=== PATIENT | female | born 1970 | race Caucasian/White ===

== ENCOUNTER 2017-10-22 13:23 | Inpatient (IN) | payer OTHER ==
[~2017-10-22] VITALS: Ht 162.6 cm; Wt 70.5 kg
[~2017-10-22 13:23] MED LIST: ALBUAER19 INH; FLUO20CA37 PO; FLUO40CA8 PO; IPRA1AER2 INH; IPRASOL4 INH; PHEN-652 PO; PIPERACILL/TAZOBAC IV 3.375 GM in DEXTROSE 5% 100ML 100 ML IV SCH; TRAZ50TA35 PO
[2017-10-22 13:50] VITALS: Ht 162.6 cm; Wt 70.5 kg
--- NOTE | 2017-10-22 14:13 | EMERGENCY ROOM VISIT NOTE ---
History First contact with patient: 13:58 Chief Complaint: INFECTION Stated Complaint: LOWER BACK INCISION SPLIT OPEN/POSSIBLE INFECTIN Nursing Triage Summary: Patient c/o stiches being split open. Recent back surgery, MondayOct 11. Spinal Fusion Red, swollen, seeping since yesterday per patient. History of Present Illness The patient is a 47 year old female who presents to the Emergency Room with complaints of increased pain, swelling and drainage from her incision on her back for the last 3 days. Patient had a lumbar fusion performed a week and a half ago. Postoperatively, she had done fairly well. She just noticed the swelling and drainage a few days ago. She denies any fever or chills. No body aches, headache or nausea. She has been taking hydrocodone with moderate pain relief. The patient has a follow-up appointment to get her sutures removed in 3 days. She did not want to let this go in case it was an infection. Review of Systems 10 system review performed and negative unless noted in HPI or below Past Medical/Surgical History Medical Problems: (1) Asthma (2) Fibromyalgia Anxiety, depression Family History Patient reports no known family medical history. Social History Smoking Status: Current Every Day Smoker Marital Status: single Housing Status: lives alone Occupation Status: employed Current/Historical Medications Scheduled Bupropion Hcl (Bupropion Hcl Xl), 1 TAB PO QAM Docusate Sodium (Colace), 1 CAP PO BID Fluoxetine Hcl (Prozac), 20 MG PO DAILY Fluticasone Prop/Salmeterol (Advair Diskus 100-50 Mcg/Dose), 1 INHA INH BID Loratadine (Claritin), 1 CAP PO DAILY Pregabalin (Lyrica), 50 MG PO BID Trazodone Hcl (Trazodone), 50 MG PO HS Scheduled PRN Albuterol Hfa (Ventolin Hfa), 2-4 PUFFS INH Q6H PRN for SOB/Wheezing Hydrocodone/Acetaminophen 5MG/325MG (Pauline 5MG/325MG), 1 TABLET PO Q8 PRN for Pain Ipratropium-Albuterol (Combivent Respimat), 1 PUFF INH QID PRN for SOB/Wheezing Ipratropium-Albuterol (Duoneb), 1 TREATMENT INH UD PRN for SOB/Wheezing Lorazepam (Ativan), 0.5 MG PO BID PRN for Anxiety Miscellaneous Medications Fluoxetine Hcl (Prozac), 40 MG PO Physical Exam Vital Signs Date Time Temp Pulse Resp B/P (MAP) Pulse Ox O2 Delivery O2 Flow Rate FiO2 10/22/17 18:00 95 18 128/82 98 Room Air 10/22/17 17:23 88 18 127/84 96 Room Air 10/22/17 15:41 86 18 119/80 97 Room Air 10/22/17 13:50 36.9 105 18 123/77 97 Room Air Physical Exam VITALS: Vitals are noted on the nurse's note and reviewed by myself. Vital signs stable. GENERAL: 47-year-old female, in no acute distress, nondiaphoretic, well- developed well-nourished. SKIN: The skin was without rashes, erythema, edema, or bruising. HEAD: Normocephalic atraumatic. NECK: Supple without nuchal rigidity. . Cervical spine is nontender. . HEART: Regular rate and rhythm without murmurs gallops or rubs. LUNGS: Clear to auscultation bilaterally without wheezes, rales or rhonchi. No accessory muscle use. ABDOMEN: Positive bowel sounds x 4.Soft, nontender, without organomegaly. No guarding or rebound tenderness. MUSCULOSKELETAL: Mild edema and erythema surrounding the incision site and the lumbar spine area. Sutures are intact. Mild clear drainage noted from the area. Strength 5/5 throughout. NEURO: Patient was alert and oriented to person place and time. Normal sensation to touch. No focal neurological deficits. Medical Decision & Procedures ER Provider Diagnostic Interpretation: CT lumbar spine with IV contrast IMPRESSION: 1. 9 x 4 x 3.5 cm slightly hyperdense collection extending from L4 through S1 involving the subcutaneous fat exclusively.. 2. This may represent a postprocedural hematoma versus infection 3. Operative changes consistent with an L4-L5 laminectomy and fusion. No evidence for bony or posterior arch involvement. The above report was generated using voice recognition software. It may contain grammatical, syntax or spelling errors. Electronically signed by: Jason Harris M.D. 10/22/2017 3:49 PM Dictated Date/Time: 10/22/2017 3:35 PM The status of this report is Signed. Draft = Not yet reviewed or approved by Radiologist. Signed = Reviewed and approved by Radiologist. Laboratory Results 10/22/17 14:20 Red Blood Count 3.23, Mean Corpuscular Volume 94.1, Mean Corpuscular Hemoglobin 33.7, Mean Corpuscular Hemoglobin Concent 35.9, Mean Platelet Volume 9.3, Neutrophils (%) (Auto) 66.7, Lymphocytes (%) (Auto) 20.0, Monocytes (%) (Auto) 11.1, Eosinophils (%) (Auto) 1.5, Basophils (%) (Auto) 0.4, Neutrophils # (Auto ) 6.45, Lymphocytes # (Auto) 1.94, Monocytes # (Auto) 1.08, Eosinophils # (Auto ) 0.15, Basophils # (Auto) 0.04 10/22/17 14:20 Test 10/22/17 14:20 White Blood Count 9.69 K/uL (4.8-10.8) Red Blood Count 3.23 M/uL (4.2-5.4) Hemoglobin 10.9 g/dL (12.0-16.0) Hematocrit 30.4 % (37-47) Mean Corpuscular Volume 94.1 fL (80-100) Mean Corpuscular Hemoglobin 33.7 pg (25-34) Mean Corpuscular Hemoglobin Concent 35.9 g/dl (32-36) Platelet Count 374 K/uL (130-400) Mean Platelet Volume 9.3 fL (7.4-10.4) Neutrophils (%) (Auto) 66.7 % Lymphocytes (%) (Auto) 20.0 % Monocytes (%) (Auto) 11.1 % Eosinophils (%) (Auto) 1.5 % Basophils (%) (Auto) 0.4 % Neutrophils # (Auto) 6.45 K/uL (1.4-6.5) Lymphocytes # (Auto) 1.94 K/uL (1.2-3.4) Monocytes # (Auto) 1.08 K/uL (0.11-0.59) Eosinophils # (Auto) 0.15 K/uL (0-0.5) Basophils # (Auto) 0.04 K/uL (0-0.2) RDW Standard Deviation 47.2 fL (36.4-46.3) RDW Coefficient of Variation 13.8 % (11.5-14.5) Immature Granulocyte % (Auto) 0.3 % Immature Granulocyte # (Auto) 0.03 K/uL (0.00-0.02) Erythrocyte Sedimentation Rate 42 mm/hr (0-21) Anion Gap 12.0 mmol/L (3-11) Est Creatinine Clear Calc Drug Dose 145.3 ml/min Estimated GFR () 119.3 Estimated GFR (Non- 102.9 BUN/Creatinine Ratio 7.3 (10-20) Calcium Level 9.0 mg/dl (8.5-10.1) Total Bilirubin 0.3 mg/dl (0.2-1) Aspartate Amino Transf (AST/SGOT) 26 U/L (15-37) Alanine Aminotransferase (ALT/SGPT) 29 U/L (12-78) Alkaline Phosphatase 50 U/L (45-117) C-Reactive Protein 2.01 mg/dl (0-0.29) Total Protein 7.9 gm/dl (6.4-8.2) Albumin 3.5 gm/dl (3.4-5.0) Globulin 4.4 gm/dl (2.5-4.0) Albumin/Globulin Ratio 0.8 (0.9-2) Procalcitonin 8.27 ng/ml (0-0.5) Medications Administered Medications (Trade) Dose Ordered Sig/Kimmie Route Start Time Stop Time Status Last Admin Dose Admin Morphine Sulfate (MoRPHine SULFATE INJ) 4 mg Q1H PRN IV 10/22/17 14:15 10/22/17 20:51 DC 10/22/17 19:07 4 MG Vancomycin HCl 1000 mg/Sodium Chloride 270 ml @ 125 mls/hr NOW STAT IV 10/22/17 16:12 10/22/17 18:21 DC 10/22/17 17:19 125 MLS/HR Piperacillin Sod/ Tazobactam Sod (Zosyn Iv) 3.375 gm NOW STAT IV 10/22/17 16:12 10/22/17 16:13 DC 10/22/17 17:18 3.375 GM ED Course Patient was seen and examined Vital signs including blood pressure were reviewed medications list was verified with patient Labs were obtained, and a saline lock was established The patient was medicated with morphine Imaging was performed and reviewed The case was discussed with my supervising physician. The patient was reassessed and resting comfortably. We discussed the results of her workup. She voiced understanding. The patient was given 1 dose of vancomycin and Zosyn IV in the emergency department. She also required an additional dose of morphine. I discussed the patient's case with her surgeons team in [place]. Constantin Jimenez PA-C I then discussed the case with the case management team. I subsequently spoke with [facility] service, who kindly agreed to admit the patient for further treatment Medical Decision Differential diagnosis: Postoperative infection, sepsis, postop pain, suture irritation This patient is a 47-year-old female that presents the emergency department with drainage, pain and swelling to her incision site in her back. On exam, she did have some edema and slight clear drainage. Her workup reveals borderline white blood cell count. She did have elevated inflammatory markers. CT scan reveals a fluid collection 9 x 3 cm posterior to the spine. This is concerning for infection. Discuss the patient with the neurosurgical team at [place].. They recommended admission for IV antibiotics. The patient was comfortable with this plan. Medication Reconcilliation Current Medication List: was personally reviewed by pr Blood Pressure Screening Patient's blood pressure: Normal blood pressure Impression Primary Impression: Postoperative infection Departure Information Prescriptions Docusate Sodium (COLACE) 100 Mg Cap 1 CAP PO BID for 15 Days, #30 CAP Prov: Jyotsna Harris, 10/22/17 Referrals Vern Lo M.D. (PCP) Patient Instructions [facility]
[2017-10-22] MEDS ORDERED: OPTIRAY 320 IV PRN (14:30)
[2017-10-22] MEDS: MoRPHine SULFATE 4 MG/ML 1 ML CARP\\VIAL IV PRN ×4 (14:41→19:07)
[2017-10-22 14:43] LABS: BASO % 0.4 %; BASO ABS # 0.04 K/uL (0-0.2); EOS % 1.5 %; EOS ABS # 0.15 K/uL (0-0.5); HEMATOCRIT 30.4 % (37-47); HEMOGLOBIN 10.9 g/dL (12.0-16.0); IG# 0.03 K/uL (0.00-0.02); LYMPH ABS # 1.94 K/uL (1.2-3.4); MEAN CELL VOLUME 94.1 fL (80-100); MEAN CORPUSCULAR HEMOGLOBIN 33.7 pg (25-34); MEAN CORPUSCULAR HGB CONC 35.9 g/dl (32-36); MEAN PLATELET VOLUME 9.3 fL (7.4-10.4); MONO % 11.1 %; MONO ABS # 1.08 K/uL (0.11-0.59); NEUT % 66.7 %; NEUT ABS # 6.45 K/uL (1.4-6.5); PLATELET COUNT 374 K/uL (130-400); RED CELL DISTRIBUTION WIDTH CV 13.8 % (11.5-14.5); RED CELL DISTRIBUTION WIDTH SD 47.2 fL (36.4-46.3); WHITE BLOOD COUNT 9.69 K/uL (4.8-10.8)
[2017-10-22 14:58] LABS: ALBUMIN 3.5 gm/dl (3.4-5.0); CREATININE 0.69 mg/dl (0.60-1.20); POTASSIUM 3.7 mmol/L (3.5-5.1)
[2017-10-22 15:00] LABS: TOTAL PROTEIN 7.9 gm/dl (6.4-8.2)
--- NOTE | 2017-10-22 15:50 | DIAGNOSTIC IMAGING REPORT ---
LUMBAR SPINE WITH CLINICAL HISTORY: spinal fusion 10/11 ? post op infection postoperative pain. Fever. TECHNIQUE: Transaxial acquisition with multi axial reformatted images COMPARISON STUDY: None FINDINGS: Findings consistent with a fusion at the L4-L5 level. Slight grade 1 anterolisthesis of L4 on L5. Disc spacer is present. Alignment appears anatomic. Multiple radiopaque pellets are present consistent with what appears to be bone grafting type material. There is no evidence for a bony destructive process. There does not appear to be soft tissue which would be considered abnormal involving the spinal canal. Within the subcutaneous fat posterior to the spine from L4 through the superior aspect of S1 It is a hyperdense collection measuring 9 x 4 x 3.5 cm. This is relatively well-circumscribed. Density characteristics indicate this potentially is blood or hematoma/infection. There are no air components. IMPRESSION: 1. 9 x 4 x 3.5 cm slightly hyperdense collection extending from L4 through S1 involving the subcutaneous fat exclusively.. 2. This may represent a postprocedural hematoma versus infection 3. Operative changes consistent with an L4-L5 laminectomy and fusion. No evidence for bony or posterior arch involvement. The above report was generated using voice recognition software. It may contain grammatical, syntax or spelling errors. Electronically signed by: Jason Harris M.D. 10/22/2017 3:49 PM Dictated Date/Time: 10/22/2017 3:35 PM
[2017-10-22] MEDS ORDERED: PREG1CAP36 PO (15:54)
[2017-10-22] MEDS ORDERED: BUPR75TA20 PO (15:54)
[2017-10-22] MEDS ORDERED: LORA-741 PO (15:54)
[2017-10-22] MEDS ORDERED: VNTHFA/IN INH (15:54)
[2017-10-22] MEDS ORDERED: VANCOMYCIN IV 1,000 MG in SODIUM CHLORIDE 0.9% 250ML 250 ML IV STA (16:12)
[2017-10-22] MEDS ORDERED: PIPERACILLIN/TAZOBACTAM 3.375 GM/100ML D5W IV STA (16:12)
[2017-10-22] MEDS ORDERED: VANCOMYCIN CONSULT ACTIVE PRN ×2 (16:15→18:45)
[2017-10-22] MEDS ORDERED: FLUOXETINE HCL 20 MG CAP PO SCH (18:30)
[2017-10-22] MEDS ORDERED: ACETAMINOPHEN 325 MG TAB PO PRN (18:45)
[2017-10-22] MEDS ORDERED: PIPERACILL/TAZOBAC CONSULT ACTIVE PRN (18:45)
[2017-10-22 19:20] VITALS: BP_SYST 130; BP_DIAS 83; BP_DIAS 86; PULSE 94; TEMP 37; O2SAT 94; BMI 56.3
[2017-10-22] MEDS ORDERED: VANCOMYCIN IV 1,750 MG in SODIUM CHLORIDE 0.9% 500ML 500 ML IV ONE (20:30)
[2017-10-22] MEDS ORDERED: BUPR300T43 PO (20:45)
[2017-10-22] MEDS ORDERED: LORA10CA2 PO (20:48)
[2017-10-22] MEDS ORDERED: ADVIN10050 INH (20:48)
[2017-10-22] MEDS ORDERED: DOCU-94 PO (20:49)
[2017-10-22] MEDS ORDERED: HYDR-5688 PO (20:49)
--- NOTE | 2017-10-22 20:59 | History and Physical ---
History & Physical Date & Time of Service: Oct 22, 2017 at 20:51 Chief Complaint: Postoperative Infection Primary Care Physician: Vern Lo M.D. History of Present Illness Source: patient, family, clinic records This is a 47 year old female with a PMH of mood disorder, fibromyalgia, asthma/ COPD, tobacco use disorder, recent lumbar surgery (decompression/fusion) - presents with pus draining from the surgical site. She presented to the ED because of continued pain and worsening pus drainage. Upon presentation, had lumbar CT performed, showing a collection of fluid around the L4-S1 area. Surgeon at [place] was called and recommendation made to admit patient and start IV antibiotics. Outpatient f/u with surgery recommended. Patient agreeable, she is doing fine, able to ambulate. Area surrounding the site is improving, warm/red/fluid filled area on the lower back. Past Medical/Surgical History Medical Problems: (1) Asthma Status: Chronic (2) Fibromyalgia Status: Chronic Family History Patient reports no known family medical history. Social History Smoking Status: Current Every Day Smoker Marital Status: single Occupational Status: employed Allergies Coded Allergies: Latex1 -Allergic Contact Dermititis (Unverified Adverse Reaction, Unknown , ITCHY, 10/22/17) Home Medications Scheduled Bupropion Hcl (Bupropion Hcl Xl), 1 TAB PO QAM Docusate Sodium (Colace), 1 CAP PO BID Fluoxetine Hcl (Prozac), 20 MG PO DAILY Fluticasone Prop/Salmeterol (Advair Diskus 100-50 Mcg/Dose), 1 INHA INH BID Loratadine (Claritin), 1 CAP PO DAILY Pregabalin (Lyrica), 50 MG PO BID Trazodone Hcl (Trazodone), 50 MG PO HS Scheduled PRN Albuterol Hfa (Ventolin Hfa), 2-4 PUFFS INH Q6H PRN for SOB/Wheezing Hydrocodone/Acetaminophen 5MG/325MG ([place] 5MG/325MG), 1 TABLET PO Q8 PRN for Pain Ipratropium-Albuterol (Combivent Respimat), 1 PUFF INH QID PRN for SOB/Wheezing Ipratropium-Albuterol (Duoneb), 1 TREATMENT INH UD PRN for SOB/Wheezing Lorazepam (Ativan), 0.5 MG PO BID PRN for Anxiety Miscellaneous Medications Fluoxetine Hcl (Prozac), 40 MG PO Review of Systems Constitutional: No fever, No chills, No weakness, No fatigue Eyes: No worsening of vision ENT: No hearing loss Respiratory: No cough, No sputum, No wheezing, No shortness of breath, No dyspnea on exertion, No dyspnea at rest, No hemoptysis Cardiovascular: No chest pain, No edema Musculoskeletal: + joint pain (low back pain) Genitourinary - Female: No dysuria, No urinary frequency, No urinary urgency, No urinary incontinence, No urinary retention, No hematuria Neurologic: No memory loss Psychiatric: No depression symptoms (controlled with medications), No anxiety, No insomnia Endocrine: No fatigue Hematologic / Lymphatic: No abnormal bleeding/bruising Integumentary: + problem reported (pus draining; lower back), No rash Allergic / Immunologic: No environmental allergies, No seasonal allergies Physical Exam Vital Signs Date Time Temp Pulse Resp B/P (MAP) Pulse Ox O2 Delivery O2 Flow Rate FiO2 10/22/17 19:20 94 Room Air 10/22/17 19:20 37.0 94 16 130/83 (99) 94 Room Air 10/22/17 19:20 37.0 94 18 130/86 94 Room Air 10/22/17 19:03 95 18 128/86 98 Room Air 10/22/17 18:00 95 18 128/82 98 Room Air 10/22/17 17:23 88 18 127/84 96 Room Air 10/22/17 15:41 86 18 119/80 97 Room Air 10/22/17 13:50 36.9 105 18 123/77 97 Room Air General Appearance: WD/WN, no apparent distress Head: normocephalic, atraumatic Eyes: normal inspection ENT: hearing grossly normal Neck: supple Respiratory/Chest: chest non-tender, lungs clear, normal breath sounds, no respiratory distress, no accessory muscle use Cardiovascular: regular rate, rhythm, no edema, no murmur Abdomen/GI: normal bowel sounds, non tender, soft Back: normal range of motion, + pertinent finding (surgical scar noted in the lower back, redness, erythema, edema, warmth to touch, no longer draining, mildly tender to palpation) Extremities/Musculoskelatal: normal inspection, no calf tenderness, normal capillary refill, no pedal edema Neurologic/Psych: optical glass silverer II-XII nml as tested, no motor/sensory deficits, alert, normal mood/affect, oriented x 3 Lymphatic: no adenopathy Diagnostics Laboratory Results Results Past 24 Hours Test 10/22/17 14:20 Range/Units White Blood Count 9.69 4.8-10.8 K/uL Red Blood Count 3.23 4.2-5.4 M/uL Hemoglobin 10.9 12.0-16.0 g/dL Hematocrit 30.4 37-47 % Mean Corpuscular Volume 94.1 80-100 fL Mean Corpuscular Hemoglobin 33.7 25-34 pg Mean Corpuscular Hemoglobin Concent 35.9 32-36 g/dl Platelet Count 374 130-400 K/uL Mean Platelet Volume 9.3 7.4-10.4 fL Neutrophils (%) (Auto) 66.7 % Lymphocytes (%) (Auto) 20.0 % Monocytes (%) (Auto) 11.1 % Eosinophils (%) (Auto) 1.5 % Basophils (%) (Auto) 0.4 % Neutrophils # (Auto) 6.45 1.4-6.5 K/uL Lymphocytes # (Auto) 1.94 1.2-3.4 K/uL Monocytes # (Auto) 1.08 0.11-0.59 K/uL Eosinophils # (Auto) 0.15 0-0.5 K/uL Basophils # (Auto) 0.04 0-0.2 K/uL RDW Standard Deviation 47.2 36.4-46.3 fL RDW Coefficient of Variation 13.8 11.5-14.5 % Immature Granulocyte % (Auto) 0.3 % Immature Granulocyte # (Auto) 0.03 0.00-0.02 K/uL Erythrocyte Sedimentation Rate 42 0-21 mm/hr Sodium Level 136 136-145 mmol/L Potassium Level 3.7 3.5-5.1 mmol/L Chloride Level 101 98-107 mmol/L Carbon Dioxide Level 23 21-32 mmol/L Anion Gap 12.0 3-11 mmol/L Blood Urea Nitrogen 5 7-18 mg/dl Creatinine 0.69 0.60-1.20 mg/dl Est Creatinine Clear Calc Drug Dose 145.3 ml/min Estimated GFR () 119.3 Estimated GFR (Non- 102.9 BUN/Creatinine Ratio 7.3 10-20 Random Glucose 77 70-99 mg/dl Calcium Level 9.0 8.5-10.1 mg/dl Total Bilirubin 0.3 0.2-1 mg/dl Aspartate Amino Transf (AST/SGOT) 26 15-37 U/L Alanine Aminotransferase (ALT/SGPT) 29 12-78 U/L Alkaline Phosphatase 50 45-117 U/L C-Reactive Protein 2.01 0-0.29 mg/dl Total Protein 7.9 6.4-8.2 gm/dl Albumin 3.5 3.4-5.0 gm/dl Globulin 4.4 2.5-4.0 gm/dl Albumin/Globulin Ratio 0.8 0.9-2 Procalcitonin 8.27 0-0.5 ng/ml Microbiology Results 10/22/17 Blood Culture, Received Pending 10/22/17 Blood Culture, Received Pending Diagnostic Radiology LUMBAR SPINE WITH CLINICAL HISTORY: spinal fusion 10/11 ? post op infection postoperative pain. Fever. TECHNIQUE: Transaxial acquisition with multi axial reformatted images COMPARISON STUDY: None FINDINGS: Findings consistent with a fusion at the L4-L5 level. Slight grade 1 anterolisthesis of L4 on L5. Disc spacer is present. Alignment appears anatomic. Multiple radiopaque pellets are present consistent with what appears to be bone grafting type material. There is no evidence for a bony destructive process. There does not appear to be soft tissue which would be considered abnormal involving the spinal canal. Within the subcutaneous fat posterior to the spine from L4 through the superior aspect of S1 It is a hyperdense collection measuring 9 x 4 x 3.5 cm. This is relatively well-circumscribed. Density characteristics indicate this potentially is blood or hematoma/infection. There are no air components. IMPRESSION: 1. 9 x 4 x 3.5 cm slightly hyperdense collection extending from L4 through S1 involving the subcutaneous fat exclusively.. 2. This may represent a postprocedural hematoma versus infection 3. Operative changes consistent with an L4-L5 laminectomy and fusion. No evidence for bony or posterior arch involvement. Impression Assessment and Plan This is a 47 year old female with a PMH of mood disorder, fibromyalgia, asthma/ COPD, tobacco use disorder, recent lumbar surgery (decompression/fusion) - presents with pus draining from the surgical site. Post-operative Infection fluid filled collection in the L4-S1 area Lumbar CT already performed surgeon aware of this and recommendation made to admit patient for IV abx. will use broad spectrum antibiotics, Vanco + Zosyn will consult ID for further input phone numbers for the surgeon at [facility] is in the chart if needed will try [place] PRN for pain, patient is not c/o too much pain COPD/Asthma continue home inhalers Mood Disorder continue home medications Fibromyalgia continue home medications DVT ppx SCDs, avoiding chemical prophylaxis on the off chance that this is a hematoma FULL CODE Advanced Directives Existing Living Will: No Existing Power of Survey And Mapping Technician: No VTE Prophylaxis VTE Risk Assessment Done? Y/N: Yes Risk Level: Low Given or contraindicated: Other Anticoagulation
[2017-10-22] MEDS ORDERED: PREGABALIN 75 MG CAP PO SCH ×2 (21:00)
[2017-10-22] MEDS ORDERED: VANCOMYCIN IV 1,000 MG in SODIUM CHLORIDE 0.9% 250ML 250 ML IV SCH (21:00)
[2017-10-22] MEDS ORDERED: HYDROCODONE/ACETAMIN 5/325MG TAB PO PRN (21:00)
[2017-10-22] MEDS: DOCUSATE SODIUM 100 MG CAP PO SCH (21:55)
[2017-10-22] MEDS: PREGABALIN 50 MG CAP PO SCH (21:55)
[2017-10-22] MEDS: TRAZODONE HCL 50 MG TAB PO SCH (21:56)
[2017-10-22] MEDS: FLUTICASONE/SALMETEROL 100/50 (ADVAIR) 14 PUFF/1 INHALER INH SCH (22:15)
[2017-10-22] MEDS ORDERED: ONDANSETRON INJ 2 MG/ML 2 ML VIAL IV PRN (22:30)
[2017-10-22] MEDS ORDERED: ONDANSETRON INJ 2 MG/ML 2 ML VIAL ONE (22:31)
[2017-10-22 22:50] VITALS: BP 136/82; PULSE 98; TEMP 36.9; O2SAT 94
[2017-10-22] MEDS ORDERED: MoRPHine SULFATE 4 MG/ML 1 ML CARP\\VIAL IV STA (23:25)
[2017-10-22] MEDS ORDERED: HYDROCODONE/ACETAMINOPHEN 7.5/325MG TAB PO PRN (23:30)
[2017-10-23] MEDS: PIPERACILL/TAZOBAC IV 3.375 GM in DEXTROSE 5% 100ML 100 ML IV SCH ×2 (02:02→09:32)
[2017-10-23] MEDS ORDERED: VANCOMYCIN IV 2,250 MG in SODIUM CHLORIDE 0.9% 500ML 500 ML IV SCH (06:00)
[2017-10-23 07:45] VITALS: BP 132/84; PULSE 82; TEMP 36.9; O2SAT 94
[2017-10-23] MEDS: PREGABALIN 50 MG CAP PO SCH ×2 (08:48→20:29)
[2017-10-23] MEDS: FLUTICASONE/SALMETEROL 100/50 (ADVAIR) 14 PUFF/1 INHALER INH SCH ×2 (08:48→20:29)
[2017-10-23] MEDS: DOCUSATE SODIUM 100 MG CAP PO SCH ×2 (08:48→20:28)
[2017-10-23] MEDS: BuPROPion XL 300 MG TABCR PO SCH (08:49)
[2017-10-23] MEDS: FLUOXETINE HCL 20 MG CAP PO SCH (08:50)
[2017-10-23] MEDS ORDERED: FLUOXETINE HCL 20 MG CAP PO SCH (09:00)
[2017-10-23] MEDS ORDERED: TRAZODONE HCL 50 MG TAB PO SCH (09:00)
[2017-10-23 09:13] VITALS: O2SAT 94
[2017-10-23] MEDS ORDERED: HYDROCODONE/ACETAMIN 5/325MG TAB PO ONE (09:17)
[2017-10-23] MEDS: ALUMINUM/MAGNESIUM/SIMETH (MAALOX MAX) 30 ML UDC PO PRN (09:47)
--- NOTE | 2017-10-23 10:33 | Progress Note ---
Progress Note Date of Service Oct 23, 2017. Progress Note ID consult dictated #[id number] A/P: 1. Post op lumbar abscess -continue abx -follow blood cultures, check wound cultures -needs surgical eval, may benefit from transfer -thank you
--- NOTE | 2017-10-23 10:37 | INFECT. DISEASE CONSULTATION ---
DATE OF CONSULTATION: 10/23/2017 HISTORY OF PRESENT ILLNESS: This is a 47-year-old female who was admitted to the hospital after she had a wound dehiscence from a lumbar incision. She underwent lumbar fusion in [place] on the 11 of October. She states that she tolerated the procedure well and was doing well postoperatively until she had a sudden onset wound dehiscence yesterday. She describes a foul smelling purulent drainage coming from the incision. She was due to follow up with her surgeon tomorrow to have suture removal. She did call her surgeon and she was instructed to come to the hospital for intravenous antibiotics. She was admitted and started empirically on vancomycin and Zosyn. She states she is having worsening pain and continued drainage. She did have a CAT scan done in the ER which showed from L4-S1 a 9 x 4 x 3.5 cm collection. Her white blood cell count was normal, but her sed rate is elevated at 4.2 and her procalcitonin was elevated at 8.2. Blood cultures are pending. She is currently afebrile and denies any fevers or chills. Her only complaint is pain. She is able to move all extremities without difficulty. She is tolerating antibiotics well. Her remaining review of systems is unremarkable. She denies any trauma to the area. PAST MEDICAL HISTORY: Significant for asthma, mood disorder, fibromyalgia, COPD. PAST SURGICAL HISTORY: Significant for lumbar fusion on the 11 of October. FAMILY HISTORY: Noncontributory. SOCIAL HISTORY: Significant for daily tobacco use. She denies any alcohol or drug use. ALLERGIES: INCLUDE LATEX. MEDICATIONS: Include Percocet, Maalox, Prozac, Wellbutrin, vancomycin, Zosyn, Zofran, trazodone, Advair, Colace, Lyrica, Tylenol, and Ativan. PHYSICAL EXAMINATION: VITAL SIGNS: She is afebrile, pulse 82, respiratory rate is 18, blood pressure 132/84, oxygen saturation is 94% on room air. GENERAL: She is awake, alert and oriented x3. She is in no acute distress. HEENT: Mucous membranes are moist. Extraocular muscles are intact. HEART: Regular. LUNGS: Clear. ABDOMEN: Soft. SKIN: Without rash. EXTREMITIES: There is no edema. There is significant tenderness and periwound erythema and warmth. Dressing was recently changed and there is no purulent drainage noted. However, there is a significant packing. LABORATORY STUDIES: CBC today reveals a white blood cell count of 9.6, hemoglobin 10.9 and platelets of 374. Sed rate is 42. Chemistry panel reveals a sodium of 136, potassium 3.7, chloride 101, bicarbonate 23, BUN 5, creatinine 0.6. CRP is 2.0, glucose 77. Procalcitonin is 8.2. Blood cultures are pending. A wound culture was obtained prior to antibiotic administration. CT of the lumbar spine is as above. ASSESSMENT AND PLAN: Postop wound infection with significant abscess. She will remain on IV antibiotics. I will order a wound culture and blood cultures are pending. She will require surgical evaluation and will transfer to her surgeon's facility for further surgical management. Thank you for this consultation.
--- NOTE | 2017-10-23 12:00 | Pharmacy Progress Note ---
Pharmacy Antibiotic Consult Date of Service: Oct 23, 2017. Pharmacy Dosing Scope Pharmacy is consulted to initiate vanc/zosyn IV dosing therapy, order appropriate labs and adjust drug dose/frequency. Subjective The patient is a 47 year old female admitted on Oct 22, 2017 at 18:37. Objective Height (Feet): 5 Height (Inches): 4.00 Weight (Kilograms): 148.700 Lab Results (24hrs): Test 10/22/17 14:20 White Blood Count 9.69 K/uL (4.8-10.8) Red Blood Count 3.23 M/uL (4.2-5.4) Hemoglobin 10.9 g/dL (12.0-16.0) Hematocrit 30.4 % (37-47) Mean Corpuscular Volume 94.1 fL (80-100) Mean Corpuscular Hemoglobin 33.7 pg (25-34) Mean Corpuscular Hemoglobin Concent 35.9 g/dl (32-36) Platelet Count 374 K/uL (130-400) Mean Platelet Volume 9.3 fL (7.4-10.4) Neutrophils (%) (Auto) 66.7 % Lymphocytes (%) (Auto) 20.0 % Monocytes (%) (Auto) 11.1 % Eosinophils (%) (Auto) 1.5 % Basophils (%) (Auto) 0.4 % Neutrophils # (Auto) 6.45 K/uL (1.4-6.5) Lymphocytes # (Auto) 1.94 K/uL (1.2-3.4) Monocytes # (Auto) 1.08 K/uL (0.11-0.59) Eosinophils # (Auto) 0.15 K/uL (0-0.5) Basophils # (Auto) 0.04 K/uL (0-0.2) RDW Standard Deviation 47.2 fL (36.4-46.3) RDW Coefficient of Variation 13.8 % (11.5-14.5) Immature Granulocyte % (Auto) 0.3 % Immature Granulocyte # (Auto) 0.03 K/uL (0.00-0.02) Erythrocyte Sedimentation Rate 42 mm/hr (0-21) Sodium Level 136 mmol/L (136-145) Potassium Level 3.7 mmol/L (3.5-5.1) Chloride Level 101 mmol/L (98-107) Carbon Dioxide Level 23 mmol/L (21-32) Anion Gap 12.0 mmol/L (3-11) Blood Urea Nitrogen 5 mg/dl (7-18) Creatinine 0.69 mg/dl (0.60-1.20) Est Creatinine Clear Calc Drug Dose 145.3 ml/min Estimated GFR () 119.3 Estimated GFR (Non- 102.9 BUN/Creatinine Ratio 7.3 (10-20) Random Glucose 77 mg/dl (70-99) Calcium Level 9.0 mg/dl (8.5-10.1) Total Bilirubin 0.3 mg/dl (0.2-1) Aspartate Amino Transf (AST/SGOT) 26 U/L (15-37) Alanine Aminotransferase (ALT/SGPT) 29 U/L (12-78) Alkaline Phosphatase 50 U/L (45-117) C-Reactive Protein 2.01 mg/dl (0-0.29) Total Protein 7.9 gm/dl (6.4-8.2) Albumin 3.5 gm/dl (3.4-5.0) Globulin 4.4 gm/dl (2.5-4.0) Albumin/Globulin Ratio 0.8 (0.9-2) Procalcitonin 8.27 ng/ml (0-0.5) Assessment & Plan Patient with wound dehiscence from a lumbar incision secondary to lumbar fusion 10/11. Due to patient's high BMI, will dose the vancomycin on adjusted body weight. It is noted that the patient did receive two higher doses of 1750 and 2250mg already. Loading dose: 1750 mg IV X 1 dose (given 10-22 @ 2029) and 2250mg X 1 (given @0600) then: 1500 mg (~16mg/kg ABW) IV every 8 hours. Goal trough level estimate: between 15 - 20 mcg/mL. Peak and trough or random level has been ordered for: @0930. Zosyn: Will increase dose to 4.5 g q8 due to hgih BMI Pharmacy will continue to follow and will adjust dose/frequency as necessary. Thank you
[2017-10-23 12:02] VITALS: BP 160/96; PULSE 91; TEMP 36.9; O2SAT 97
[2017-10-23 12:42] VITALS: BP 151/84
[2017-10-23] MEDS: HYDROCODONE/ACETAMIN 5/325MG TAB PO PRN ×3 (13:33→21:38)
[2017-10-23 15:24] VITALS: BP 135/79; PULSE 86; TEMP 37; O2SAT 94
--- NOTE | 2017-10-23 15:45 | Progress Note ---
Internal Med Progress Note Date of Service: Oct 23, 2017. Provider Documentation: SUBJECTIVE: The patient was seen and examined Complains of a lot of pain at the back ,no radiation Denies any Fever,chills OBJECTIVE: Vital Signs-as noted below Exam: General-NO distress at home Eyes-Normal ENT-normal Neck-supple Lungs-clear to auscultate bilaterally Heart-Regular Abdomen-Benign,no masses,bowel sound present Extremities-No edema Neuro-AAOx3 Examination of the Back wound:: Lower Lumbar and Upper Sacral wound Sutured with minimal inflammation Minimal gape lower end with no discharge during my exam Minimally tender without any fluctuation Lab data as noted below. ASSESSMENT & PLAN: This is a 47 year old female with a PMH of mood disorder, fibromyalgia, asthma/ COPD, tobacco use disorder, recent lumbar surgery (decompression/fusion) - presents with pus draining from the surgical site. Post-operative Fluid collection: Likely Seroma and doubt any Infection -fluid filled collection in the L4-S1 area -Lumbar CT already performed::1. 9 x 4 x 3.5 cm slightly hyperdense collection extending from L4 through S1 involving the subcutaneous fat exclusively.. 2. This may represent a postprocedural hematoma versus infection 3. Operative changes consistent with an L4-L5 laminectomy and fusion. No evidence for bony or posterior arch involvement. -on broad spectrum antibiotics, Vanco + Zosyn -appreciate ID input -Discussed with Dr Dykes who reviewed the film and thinks the collection likely to be seroma -continue antibiotic for now and pain medication COPD/Asthma continue home inhalers Mood Disorder continue home medications Fibromyalgia continue home medications No acute issue DVT ppx SCDs, avoiding chemical prophylaxis on the off chance that this is a hematoma FULL CODE Vital Signs: Date Time Temp Pulse Resp B/P (MAP) Pulse Ox O2 Delivery O2 Flow Rate FiO2 10/23/17 15:24 37.0 86 16 135/79 (97) 94 Room Air 10/23/17 12:42 151/84 (106) 10/23/17 12:02 36.9 91 18 160/96 (117) 97 Room Air 10/23/17 09:13 94 Room Air 10/23/17 07:45 36.9 82 18 132/84 (100) 94 Room Air 10/23/17 07:30 Room Air 10/22/17 23:38 Room Air 10/22/17 22:50 36.9 98 16 136/82 (100) 94 Room Air 10/22/17 19:20 94 Room Air 10/22/17 19:20 37.0 94 16 130/83 (99) 94 Room Air 10/22/17 19:20 37.0 94 18 130/86 94 Room Air 10/22/17 19:03 95 18 128/86 98 Room Air 10/22/17 18:00 95 18 128/82 98 Room Air 10/22/17 17:23 88 18 127/84 96 Room Air 10/22/17 15:41 86 18 119/80 97 Room Air Lab Results: Microbiology Results 10/23/17 MRSA DNA Surveillance Screen - Final, Complete Specimen Negative for MRSA by DNA Probe 10/23/17 Gram Stain, Received Pending 10/23/17 Wound Culture, Received Pending
[2017-10-23] MEDS: VANCOMYCIN IV 1,500 MG in SODIUM CHLORIDE 0.9% 500ML 500 ML IV SCH (17:30)
[2017-10-23] MEDS: PIPERACILL/TAZOBAC IV 4.5 GM in DEXTROSE 5% 100ML 100 ML IV SCH (17:31)
[2017-10-23] MEDS: TRAZODONE HCL 50 MG TAB PO SCH (21:38)
[2017-10-23 22:52] VITALS: BP 135/75; PULSE 82; TEMP 37.1; O2SAT 93
[2017-10-24] MEDS: PIPERACILL/TAZOBAC IV 4.5 GM in DEXTROSE 5% 100ML 100 ML IV SCH ×2 (02:12→09:56)
[2017-10-24] MEDS: VANCOMYCIN IV 1,500 MG in SODIUM CHLORIDE 0.9% 500ML 500 ML IV SCH ×2 (02:12→09:56)
[2017-10-24 07:32] VITALS: BP 156/94; PULSE 85; TEMP 37.1; O2SAT 96
[2017-10-24] MEDS: DOCUSATE SODIUM 100 MG CAP PO SCH ×2 (08:51→20:31)
[2017-10-24] MEDS: PREGABALIN 50 MG CAP PO SCH ×2 (08:51→20:31)
[2017-10-24] MEDS: FLUTICASONE/SALMETEROL 100/50 (ADVAIR) 14 PUFF/1 INHALER INH SCH ×2 (08:51→20:31)
[2017-10-24] MEDS: BuPROPion XL 300 MG TABCR PO SCH (08:52)
[2017-10-24] MEDS: FLUOXETINE HCL 20 MG CAP PO SCH (08:52)
[2017-10-24] MEDS: HYDROCODONE/ACETAMIN 5/325MG TAB PO PRN ×4 (08:53→22:17)
[2017-10-24] MEDS ORDERED: VANCOMYCIN TROUGH ONE (09:30)
--- NOTE | 2017-10-24 10:08 | Progress Note ---
Subjective Date of Service: Oct 24, 2017. Subjective Pt evaluation today including: conversation w/ patient, physical exam, chart review, lab review The patient is seen in follow-up examination. She states she is feeling much better today. She is asking to be discharged home later this evening. A blood cultures remain negative. A wound culture was obtained yesterday and results of this are pending. Her Gram stain was negative however this was obtained after starting antibiotics. On she does not have any morning labs. She remains on Vanco and Zosyn appears to be tolerating these well. She remains afebrile. She states the drainage is less today. Her pain is better controlled today. She denies any fevers or chills. She denies any chest pain cough shortness of breath nausea vomiting or diarrhea. Her remaining review of systems is reviewed and is unremarkable. Problem List Medical Problems: (1) Lingular pneumonia Status: Acute (2) Postoperative infection Status: Acute Objective Vital Signs Date Time Temp Pulse Resp B/P (MAP) Pulse Ox O2 Delivery O2 Flow Rate FiO2 10/24/17 09:31 Room Air 10/24/17 07:32 37.1 85 18 156/94 (114) 96 Room Air 10/23/17 22:52 37.1 82 16 135/75 (95) 93 Room Air 10/23/17 19:15 Room Air 10/23/17 16:09 Room Air 10/23/17 15:24 37.0 86 16 135/79 (97) 94 Room Air 10/23/17 12:42 151/84 (106) 10/23/17 12:02 36.9 91 18 160/96 (117) 97 Room Air Physical Exam General Appearance: WD/WN, no apparent distress Eyes: normal inspection, EOMI Neck: supple Respiratory/Chest: lungs clear, normal breath sounds, no respiratory distress Cardiovascular: regular rate, rhythm, no edema Abdomen: non tender, soft Extremities: non-tender, no pedal edema Neurologic/Psychiatric: alert, oriented x 3 Skin: normal color, no rash Laboratory Results Item Value Date Time Gram Stain - Final Resulted 10/23/17 1225 Incision Site Back Blood Culture - Preliminary Resulted 10/22/17 1420 Blood NO GROWTH TO DATE. Blood Culture - Preliminary Resulted 10/22/17 1410 Blood NO GROWTH TO DATE. Last 24 Hours Test 2/13/18 09:51 Assessment and Plan (1) Postoperative infection Assessment & Plan: I suspect that of the seroma or fluid collection certainly could be infected and with hardware in place would err on the side of treating with antibiotics. Her wound culture is pending and I do not suspect that the final results will be back with this evening. I did share this with the patient. She is to eager to be discharged home. Will be difficult to select antibiotics without final culture results. She does have planned follow-up with her surgical team. If in fact she does have infection the size of her collection would likely not be curable with antibiotics alone will likely require some surgical intervention. I will follow culture results and make final recommendations based on results. If the patient is eager to be discharged before cultures can be at her returned and finalized my suggestion would be to discharge the patient home on Levaquin and oral doxycycline with plans to follow up with her primary care physician to review final culture results at that time. She will also need surgical evaluation. She states she was to follow up today to have her sutures removed.
[2017-10-24 10:36] LABS: CREATININE 3.68 mg/dl (0.60-1.20)
[2017-10-24 11:33] LABS: HEMATOCRIT 29.1 % (37-47); HEMOGLOBIN 10.5 g/dL (12.0-16.0); MEAN CELL VOLUME 94.2 fL (80-100); MEAN CORPUSCULAR HGB CONC 36.1 g/dl (32-36); MEAN PLATELET VOLUME 9.4 fL (7.4-10.4); PLATELET COUNT 370 K/uL (130-400); RED CELL DISTRIBUTION WIDTH CV 14.1 % (11.5-14.5); RED CELL DISTRIBUTION WIDTH SD 48.4 fL (36.4-46.3); WHITE BLOOD COUNT 12.19 K/uL (4.8-10.8)
[2017-10-24 13:05] LABS: CALCIUM 8.1 mg/dl (8.5-10.1); POTASSIUM 3.8 mmol/L (3.5-5.1)
[2017-10-24 13:06] LABS: CREATININE 3.83 mg/dl (0.60-1.20)
--- NOTE | 2017-10-24 13:13 | Pharmacy Progress Note ---
Pharmacy Abx Dose Short Note Date of Service Oct 24, 2017. Assessment & Plan Assessment & Plan 47 year old female receiving vancomycin/Zosyn for treatment of possible surgical site infection. Day # 3/10 of antimicrobial therapy. Patient's serum creatinine increased dramatically. Vancomycin level of 70.9 may or may not be reliable, as it was drawn very close to starting time of dose. However will hold vancomycin and redose empirically when random level is less than 18 mcg/ml (probably in several days.) Zosyn remains within parameters for q8h dosing but will change to q12h if renal function continues to get worse. Pharmacy will continue to follow and will adjust dose/frequency as necessary. Thank you.
[2017-10-24] MEDS: SODIUM CHLORIDE 0.9% 1000ML 1,000 ML IV SCH ×2 (13:23→20:32)
--- NOTE | 2017-10-24 14:06 | DIAGNOSTIC IMAGING REPORT ---
(RENAL)RETROPERITON COMP HISTORY: Renal insufficiency jerilyn COMPARISON: None. FINDINGS: Right kidney: Maximum dimension 11.3 cm. No evidence for hydronephrosis. Slight fullness of the renal collecting system. Normal corticomedullary differentiation and cortical thickness. Left kidney: Maximum dimension 10.6 cm. No evidence for hydronephrosis. Slight fullness the renal collecting system. 5 mm exophytic cyst. Normal corticomedullary differentiation and cortical thickness. Bladder: No bladder wall thickening. The bilateral ureteral jets were identified. IMPRESSION: There is slight nonspecific fullness the renal collecting systems bilaterally. No evidence for hydronephrosis. The above report was generated using voice recognition software. It may contain grammatical, syntax or spelling errors. Electronically signed by: Jason Harris M.D. 10/24/2017 2:04 PM Dictated Date/Time: 10/24/2017 2:03 PM
--- NOTE | 2017-10-24 14:27 | NEPHROLOGY CONSULTATION ---
DATE OF CONSULTATION: 10/24/2017 ATTENDING OF RECORD: Dr. High. REASON FOR CONSULTATION: CARLOS. HISTORY OF PRESENT ILLNESS: This is a 47-year-old female who has a history of smoking and is down to 1 cigarette a day. No hypertension, no diabetes, and no NSAIDs. Did have a recent back surgery at [place] on October 11 and started having erythema and drainage from that area. The patient was started on IV antibiotics. Cultures were drawn. The patient had a creatinine of 0.69 on admission. The patient had a lumbar spine CT, which showed a fusion at the L4-L5 and slight grade 1 anterolisthesis of L4 on L5. There is a hyperdense collection, relatively well circumscribed from L4 to S1, which potentially a blood or hematoma/infection. The patient was started on vancomycin and Zosyn. The patient received 1 gram on the as well as 1750 mg that night and then got 2250 mg IV q. 8 hours on the 12th x 1 dose and was in the process of receiving 1500 mg this morning. We have a vancomycin trough of 71. Had a creatinine that was drawn on the of 3.68. White count has trended up to 12,000. We had a sed rate of 42 on admission with blood cultures and wound cultures negative to date. REVIEW OF SYSTEMS: No fevers or chills. No anorexia. No diarrhea or constipation. No nausea or vomiting. Positive pain in the lower back. No fatigue. No decrease in urination. All other review of systems otherwise negative. SOCIAL HISTORY: Active smoker, 1 cigarette a day. No alcohol and no drugs. FAMILY HISTORY: No renal disease in family. PAST MEDICAL AND SURGICAL HISTORY: Fibromyalgia, asthma/COPD, tobacco use, and recent back surgery. CURRENT MEDICATIONS: Wellbutrin 300 mg a day, Colace 100 mg p.o. b.i.d., Prozac 60 mg daily, Zosyn 4.5 grams IV q. 8 hours, Lyrica 50 mg p.o. b.i.d., Advair 1 puff inhaler twice a day, and trazodone 50 mg at night. Vancomycin has been stopped. PHYSICAL EXAMINATION: VITAL SIGNS: Temperature 37.1, pulse 85, respiratory rate 18, blood pressure 156/94, and satting 96% on room air. GENERAL: Awake, alert, and oriented x3. EYES: No scleral icterus. ENT: Moist mucous membranes. NECK: Supple. PULMONARY: Clear to auscultation. CARDIAC: Regular rate and rhythm. ABDOMEN: Bowel sounds positive. Soft and nontender. EXTREMITIES: No clubbing, cyanosis or edema. NEUROLOGICALLY: Nonfocal. DERMATOLOGIC: Back, lower back covered. LABORATORIES: Pending for today. We have a white count of 12,000, H&H of 10 and 29, and platelet count is 370. Vancomycin level 71. Full chemistry panel today is pending. We have a creatinine this morning of 3.68. IMPRESSION AND PLAN: Acute kidney injury. Nonoliguric in the setting of presumed vancomycin nephrotoxicity. We will check a CPK, UA with micro and renal ultrasound to be thorough. Have stopped the vancomycin and obtaining a renal ultrasound and continue aggressive fluid resuscitation. Her creatinine likely to worsen before it starts to improve. No indication for emergent dialysis at this time. We will see what the new chemistry panel shows in terms of electrolyte abnormalities. I will also renally adjust the Zosyn as well and we will talk to pharmacy to make appropriate recommendations. I appreciate the consultation.
[2017-10-24 14:56] VITALS: BP 125/78; PULSE 78; TEMP 36.6; O2SAT 93
--- NOTE | 2017-10-24 15:34 | Progress Note ---
Internal Med Progress Note Date of Service: Oct 24, 2017. Provider Documentation: SUBJECTIVE: The patient was seen and examined Complains of a lot of pain at the back ,no radiation Creatinine noted to be high and so is Trough level of Vancomycin Patient denies any symptoms OBJECTIVE: Vital Signs-as noted below Exam: General-NO distress at rest Anxious about the kidney function Eyes-Normal ENT-normal Neck-supple Lungs-clear to auscultate bilaterally Heart-Regular Abdomen-Benign,no masses,bowel sound present Extremities-No edema Neuro-AAOx3 Examination of the Back wound:: Lower Lumbar and Upper Sacral wound Sutured with minimal inflammation Minimal gape lower end with no discharge during my exam Minimally tender without any fluctuation Lab data as noted below. ASSESSMENT & PLAN: This is a 47 year old female with a PMH of mood disorder, fibromyalgia, asthma/ COPD, tobacco use disorder, recent lumbar surgery (decompression/fusion) - presents with pus draining from the surgical site. CARLOS Likely secondary to Vancomycin Increased Trough level of vancomycin of 70 Nephrology consulted IV fluid and monitor PRP Post-operative Fluid collection: Likely Seroma and doubt any Infection -fluid filled collection in the L4-S1 area -Lumbar CT already performed::1. 9 x 4 x 3.5 cm slightly hyperdense collection extending from L4 through S1 involving the subcutaneous fat exclusively.. 2. This may represent a postprocedural hematoma versus infection 3. Operative changes consistent with an L4-L5 laminectomy and fusion. No evidence for bony or posterior arch involvement. -on broad spectrum antibiotics, Vanco + Zosyn -appreciate ID input -Discussed with Dr Dykes who reviewed the film and thinks the collection likely to be seroma -continue antibiotic for now and pain medication -Vancomycin is on HOLD now COPD/Asthma continue home inhalers Mood Disorder continue home medications Fibromyalgia continue home medications No acute issue DVT ppx SCDs, avoiding chemical prophylaxis on the off chance that this is a hematoma FULL CODE Reassured Vital Signs: Date Time Temp Pulse Resp B/P (MAP) Pulse Ox O2 Delivery O2 Flow Rate FiO2 10/24/17 14:56 36.6 78 18 125/78 (94) 93 Room Air 10/24/17 09:31 Room Air 10/24/17 07:32 37.1 85 18 156/94 (114) 96 Room Air 10/23/17 22:52 37.1 82 16 135/75 (95) 93 Room Air 10/23/17 19:15 Room Air 10/23/17 16:09 Room Air Lab Results: Results Past 24 Hours Test 10/24/17 09:51 10/24/17 12:01 Range/Units White Blood Count 12.19 4.8-10.8 K/uL Red Blood Count 3.09 4.2-5.4 M/uL Hemoglobin 10.5 12.0-16.0 g/dL Hematocrit 29.1 37-47 % Mean Corpuscular Volume 94.2 80-100 fL Mean Corpuscular Hemoglobin 34.0 25-34 pg Mean Corpuscular Hemoglobin Concent 36.1 32-36 g/dl RDW Standard Deviation 48.4 36.4-46.3 fL RDW Coefficient of Variation 14.1 11.5-14.5 % Platelet Count 370 130-400 K/uL Mean Platelet Volume 9.4 7.4-10.4 fL Creatinine 3.68 3.83 0.60-1.20 mg/dl Est Creatinine Clear Calc Drug Dose 27.2 26.2 ml/min Estimated GFR () 16.0 15.2 Estimated GFR (Non- 13.8 13.1 Vancomycin Level Trough 70.9 SEE COMMENT mcg/ml Sodium Level 133 136-145 mmol/L Potassium Level 3.8 3.5-5.1 mmol/L Chloride Level 102 98-107 mmol/L Carbon Dioxide Level 23 21-32 mmol/L Anion Gap 8.0 3-11 mmol/L Blood Urea Nitrogen 18 7-18 mg/dl BUN/Creatinine Ratio 4.7 10-20 Random Glucose 103 70-99 mg/dl Calcium Level 8.1 8.5-10.1 mg/dl Total Creatine Kinase 56 26-192 U/L
[2017-10-24 18:43] LABS: CREATININE 4.18 mg/dl (0.60-1.20); POTASSIUM 3.5 mmol/L (3.5-5.1)
[2017-10-24] MEDS: TRAZODONE HCL 50 MG TAB PO SCH (22:16)
[2017-10-24 23:06] VITALS: BP 153/95; PULSE 79; TEMP 36.9; O2SAT 94
[2017-10-24] MEDS: LORAZEPAM 0.5 MG TAB PO PRN (23:31)
[2017-10-25] MEDS: SODIUM CHLORIDE 0.9% 1000ML 1,000 ML IV SCH ×4 (03:30→21:28)
[2017-10-25 07:20] LABS: CALCIUM 8.4 mg/dl (8.5-10.1); CREATININE 4.81 mg/dl (0.60-1.20)
[2017-10-25 07:44] VITALS: BP 112/64; PULSE 84; TEMP 36.7; O2SAT 95
[2017-10-25] MEDS: HYDROCODONE/ACETAMIN 5/325MG TAB PO PRN ×4 (07:45→20:28)
[2017-10-25] MEDS: FLUTICASONE/SALMETEROL 100/50 (ADVAIR) 14 PUFF/1 INHALER INH SCH ×2 (07:47→20:30)
[2017-10-25] MEDS: DOCUSATE SODIUM 100 MG CAP PO SCH ×2 (07:47→20:30)
[2017-10-25] MEDS: FLUOXETINE HCL 20 MG CAP PO SCH (07:48)
[2017-10-25] MEDS: BuPROPion XL 300 MG TABCR PO SCH (07:48)
[2017-10-25] MEDS: PREGABALIN 50 MG CAP PO SCH ×2 (07:50→20:30)
--- NOTE | 2017-10-25 08:04 | Nephrology Progress Note ---
Nephrology Progress Note Date of Service: Oct 25, 2017. Subjective 47 yo female with jerilyn in the setting of vancomycin. pt doing well with no specific complaints. pt has noticed she is urinating less. still with good appetite. no n/v. no sob. Objective Date Time Temp Pulse Resp B/P (MAP) Pulse Ox O2 Delivery O2 Flow Rate FiO2 10/25/17 07:44 36.7 84 19 112/64 (80) 95 Room Air 10/24/17 23:06 36.9 79 16 153/95 (114) 94 Room Air 10/24/17 19:45 Room Air 10/24/17 14:56 36.6 78 18 125/78 (94) 93 Room Air 10/24/17 09:31 Room Air Physical Exam: General-aaox3 Eyes-no scleral icterus ENT-mmm Neck-supple Lungs-cta Heart-rrr Abdomen-bs+ s/nt/nd Extremities-no c/c/e Neuro-nonfocal Back-bandaged Current Inpatient Medications Medications (Trade) Dose Ordered Sig/Kimmie Route Start Time Stop Time Status Last Admin Dose Admin Ioversol (Optiray 320) 100 ml UD PRN IV 10/22/17 14:30 10/26/17 14:29 Lorazepam (Ativan Tab) 0.5 mg BID PRN PO 10/22/17 18:30 11/21/17 18:29 10/24/17 23:31 0.5 MG Acetaminophen (Tylenol Tab) 650 mg Q4H PRN PO 10/22/17 18:45 11/21/17 18:44 Miscellaneous Information (Consult) 1 ea UD PRN N/A 10/22/17 18:45 11/21/17 18:44 Future Hold Miscellaneous Information (Consult) 1 ea UD PRN N/A 10/22/17 18:45 11/21/17 18:44 Fluoxetine HCl (Prozac Cap) 60 mg DAILY PO 10/23/17 09:00 11/22/17 08:59 10/25/17 07:48 60 MG Trazodone HCl (Desyrel Tab) 50 mg HS PO 10/22/17 21:00 11/22/17 08:59 10/24/17 22:16 50 MG Bupropion HCl (Wellbutrin-Xl Tab) 300 mg QAM PO 10/23/17 09:00 11/22/17 08:59 10/25/17 07:48 300 MG Salmeterol Xinafoate/ Fluticasone (Advair Diskus 100/50 Inh) 1 puff BID INH 10/22/17 21:00 11/21/17 20:59 10/25/17 07:47 1 PUFF Docusate Sodium (coLACE CAP) 100 mg BID PO 10/22/17 21:00 11/21/17 20:59 10/25/17 07:47 100 MG Pregabalin (Lyrica Cap) 50 mg BID PO 10/22/17 21:00 11/21/17 20:59 10/25/17 07:50 50 MG Ondansetron HCl (Zofran Inj) 4 mg Q8H PRN IV 10/22/17 22:30 11/21/17 22:29 Acetaminophen/ Hydrocodone Bitart ([place] 5/325 Tab) 2 tab Q4H PRN PO 10/23/17 09:30 11/06/17 09:29 10/25/17 07:45 2 TAB Al Hydrox/Mg Hydrox/Simethicone (Maalox Max Susp) 15 ml Q6H PRN PO 10/23/17 09:30 11/22/17 09:29 10/23/17 09:47 15 ML Sodium Chloride 1,000 ml @ 150 mls/hr Q6H40M IV 10/24/17 13:00 11/23/17 12:59 10/25/17 03:30 150 MLS/HR Last 24 Hours Test 10/24/17 09:51 10/24/17 12:01 10/24/17 16:50 10/24/17 18:13 White Blood Count 12.19 K/uL Red Blood Count 3.09 M/uL Hemoglobin 10.5 g/dL Hematocrit 29.1 % Mean Corpuscular Volume 94.2 fL Mean Corpuscular Hemoglobin 34.0 pg Mean Corpuscular Hemoglobin Concent 36.1 g/dl RDW Standard Deviation 48.4 fL RDW Coefficient of Variation 14.1 % Platelet Count 370 K/uL Mean Platelet Volume 9.4 fL Creatinine 3.68 mg/dl 3.83 mg/dl 4.18 mg/dl Est Creatinine Clear Calc Drug Dose 27.2 ml/min 26.2 ml/min 24.0 ml/min Estimated GFR () 16.0 15.2 13.7 Estimated GFR (Non- 13.8 13.1 11.8 Vancomycin Level Trough 70.9 mcg/ml Sodium Level 133 mmol/L 132 mmol/L Potassium Level 3.8 mmol/L 3.5 mmol/L Chloride Level 102 mmol/L 101 mmol/L Carbon Dioxide Level 23 mmol/L 21 mmol/L Anion Gap 8.0 mmol/L 10.0 mmol/L Blood Urea Nitrogen 18 mg/dl 19 mg/dl BUN/Creatinine Ratio 4.7 4.5 Random Glucose 103 mg/dl 137 mg/dl Calcium Level 8.1 mg/dl 8.0 mg/dl Total Creatine Kinase 56 U/L Urine Color YELLOW Urine Appearance CLEAR Urine pH 5.0 Urine Specific [place] 1.006 Urine Protein NEG Urine Glucose (UA) NEG Urine Ketones NEG Urine Occult Blood NEG Urine Nitrite NEG Urine Bilirubin NEG Urine Urobilinogen NEG Urine Leukocyte Esterase SMALL Urine WBC (Auto) /hpf Urine RBC (Auto) /hpf Urine Hyaline Casts (Auto) /lpf Urine Epithelial Cells (Auto) /lpf Urine Bacteria (Auto) Urine RBC 0-4 /hpf Urine WBC 5-10 /hpf Urine Epithelial Cells >30 /lpf Urine Bacteria NEG Urine Hyaline Casts 1-5 /lpf Urine Yeast BUD W/ HYPHAE Test 10/25/17 05:56 Sodium Level 131 mmol/L Potassium Level 4.0 mmol/L Chloride Level 102 mmol/L Carbon Dioxide Level 19 mmol/L Anion Gap 10.0 mmol/L Blood Urea Nitrogen 20 mg/dl Creatinine 4.81 mg/dl Est Creatinine Clear Calc Drug Dose 14.1 ml/min Estimated GFR () 11.6 Estimated GFR (Non- 10.0 BUN/Creatinine Ratio 4.1 Random Glucose 101 mg/dl Calcium Level 8.4 mg/dl Magnesium Level 1.7 mg/dl Assessment & Plan OEL-avk-ghdadpsh-thought to be vancomycin nephrotoxicity-creatinine likely to worsen before it starts to improve. may need dialysis during this admission. not uremic at this time. continue aggressive fluids for now. renal us shows normal kidneys. ua is bland. urinary eosinophils are pending. ck is normal.
[2017-10-25 08:34] VITALS: O2SAT 95
--- NOTE | 2017-10-25 11:16 | Progress Note ---
Subjective Date of Service: Oct 25, 2017. Subjective Pt evaluation today including: conversation w/ patient, physical exam, chart review, lab review pt with significant creat elevation since admission, vanco level supratheraputic , now all abx on hold. afebrile. blood cultures negative, wound culture now with wharf tender helper. Nephro following. spoke with primary, no plans for surgery. Problem List Medical Problems: (1) Lingular pneumonia Status: Acute (2) Postoperative infection Status: Acute Objective Vital Signs Date Time Temp Pulse Resp B/P (MAP) Pulse Ox O2 Delivery O2 Flow Rate FiO2 10/25/17 09:00 Room Air 10/25/17 08:34 95 Room Air 10/25/17 07:44 36.7 84 19 112/64 (80) 95 Room Air 10/24/17 23:06 36.9 79 16 153/95 (114) 94 Room Air 10/24/17 19:45 Room Air 10/24/17 14:56 36.6 78 18 125/78 (94) 93 Room Air Laboratory Results Item Value Date Time Blood Culture - Preliminary Resulted 10/22/17 1420 Blood NO GROWTH TO DATE. Blood Culture - Preliminary Resulted 10/22/17 1410 Blood NO GROWTH TO DATE. Gram Stain - Final Complete 10/23/17 1225 Incision Site Back Last 24 Hours Test 10/24/17 12:01 10/24/17 16:50 10/24/17 18:13 10/25/17 05:56 Sodium Level 133 mmol/L 132 mmol/L 131 mmol/L Potassium Level 3.8 mmol/L 3.5 mmol/L 4.0 mmol/L Chloride Level 102 mmol/L 101 mmol/L 102 mmol/L Carbon Dioxide Level 23 mmol/L 21 mmol/L 19 mmol/L Anion Gap 8.0 mmol/L 10.0 mmol/L 10.0 mmol/L Blood Urea Nitrogen 18 mg/dl 19 mg/dl 20 mg/dl Creatinine 3.83 mg/dl 4.18 mg/dl 4.81 mg/dl Est Creatinine Clear Calc Drug Dose 26.2 ml/min 24.0 ml/min 14.1 ml/min Estimated GFR () 15.2 13.7 11.6 Estimated GFR (Non- 13.1 11.8 10.0 BUN/Creatinine Ratio 4.7 4.5 4.1 Random Glucose 103 mg/dl 137 mg/dl 101 mg/dl Calcium Level 8.1 mg/dl 8.0 mg/dl 8.4 mg/dl Total Creatine Kinase 56 U/L Urine Color YELLOW Urine Appearance CLEAR Urine pH 5.0 Urine Specific [place] 1.006 Urine Protein NEG Urine Glucose (UA) NEG Urine Ketones NEG Urine Occult Blood NEG Urine Nitrite NEG Urine Bilirubin NEG Urine Urobilinogen NEG Urine Leukocyte Esterase SMALL Urine WBC (Auto) /hpf Urine RBC (Auto) /hpf Urine Hyaline Casts (Auto) /lpf Urine Epithelial Cells (Auto) /lpf Urine Bacteria (Auto) Urine RBC 0-4 /hpf Urine WBC 5-10 /hpf Urine Epithelial Cells >30 /lpf Urine Bacteria NEG Urine Hyaline Casts 1-5 /lpf Urine Yeast BUD W/ HYPHAE Magnesium Level 1.7 mg/dl Assessment and Plan (1) Postoperative infection Assessment & Plan: wound culture now with wharf tender helper, could certainly be contaminant, she is currently hemodynamically stable off of abx. blood cultures negative and afebrile. No more vanco to be given, will follow kidney function. follow cultures. will need surgery eval post d/c. will discuss with patient plans for ongoing abx vs monitoring off of abx pending additional culture data. unclear significance of wharf tender helper.
[2017-10-25 12:17] VITALS: BP 130/84; PULSE 83; TEMP 36.8; O2SAT 97
--- NOTE | 2017-10-25 13:47 | Progress Note ---
Internal Med Progress Note Date of Service: Oct 25, 2017. Provider Documentation: SUBJECTIVE: The patient was seen and examined Complains of a lot of pain at the back ,no radiation Creatinine noted to be high and so is Trough level of Vancomycin Patient denies any symptoms but very anxious Very worried about the kidney failure OBJECTIVE: Vital Signs-as noted below Exam: General-NO distress at rest Anxious about the kidney function Eyes-Normal ENT-normal Neck-supple Lungs-clear to auscultate bilaterally Heart-Regular Abdomen-Benign,no masses,bowel sound present Extremities-No edema Neuro-AAOx3 Examination of the Back wound:: Lower Lumbar and Upper Sacral wound Sutured with minimal inflammation Minimal gape lower end with no discharge during my exam Minimally tender without any fluctuation 10/25 Wounds much better no infection Stitches will come out today Lab data as noted below. ASSESSMENT & PLAN: This is a 47 year old female with a PMH of mood disorder, fibromyalgia, asthma/ COPD, tobacco use disorder, recent lumbar surgery (decompression/fusion) - presents with pus draining from the surgical site. CARLOS-Vancomycin Toxicity Likely secondary to Vancomycin Increased Trough level of vancomycin of > 70 Nephrology consulted -appreciate input IV fluid and monitor PRP.US -negative Renal function deteriorated to 4.8 Post-operative Fluid collection: Likely Seroma and doubt any Infection -fluid filled collection in the L4-S1 area -Lumbar CT already performed::1. 9 x 4 x 3.5 cm slightly hyperdense collection extending from L4 through S1 involving the subcutaneous fat exclusively.. 2. This may represent a postprocedural hematoma versus infection 3. Operative changes consistent with an L4-L5 laminectomy and fusion. No evidence for bony or posterior arch involvement. -on broad spectrum antibiotics, Vanco + Zosyn -appreciate ID input -Discussed with Dr Dykes who reviewed the film and thinks the collection likely to be seroma -continue antibiotic for now and pain medication -Antibiotics discontinued COPD/Asthma continue home inhalers Mood Disorder continue home medications very anxious now Fibromyalgia continue home medications No acute issue DVT ppx SCDs, avoiding chemical prophylaxis on the off chance that this is a hematoma FULL CODE Has had a long discussion with the patient today Explained the current disease condition,explained the need for Vancomycin and the rare significant adverse reaction it can cause The renal function can get worse before it gets better May need short term Dialysis Very anxious but understanding Discussed with the Ortho Dr Obando #[phone] Vital Signs: Date Time Temp Pulse Resp B/P (MAP) Pulse Ox O2 Delivery O2 Flow Rate FiO2 10/25/17 12:17 36.8 83 18 130/84 (99) 97 Room Air 10/25/17 09:00 Room Air 10/25/17 08:34 95 Room Air 10/25/17 07:44 36.7 84 19 112/64 (80) 95 Room Air 10/24/17 23:06 36.9 79 16 153/95 (114) 94 Room Air 10/24/17 19:45 Room Air 10/24/17 14:56 36.6 78 18 125/78 (94) 93 Room Air Lab Results: Results Past 24 Hours Test 10/24/17 16:50 10/24/17 18:13 10/25/17 05:56 Range/Units Urine Color YELLOW Urine Appearance CLEAR CLEAR Urine pH 5.0 4.5-7.5 Urine Specific [place] 1.006 1.000-1.030 Urine Protein NEG NEG Urine Glucose (UA) NEG NEG Urine Ketones NEG NEG Urine Occult Blood NEG NEG Urine Nitrite NEG NEG Urine Bilirubin NEG NEG Urine Urobilinogen NEG NEG Urine Leukocyte Esterase SMALL NEG Urine WBC (Auto) 0-5 /hpf Urine RBC (Auto) 0-4 /hpf Urine Hyaline Casts (Auto) 0-5 /lpf Urine Epithelial Cells (Auto) 0-5 /lpf Urine Bacteria (Auto) NEG Urine RBC 0-4 0-4 /hpf Urine WBC 5-10 0-5 /hpf Urine Epithelial Cells >30 0-5 /lpf Urine Bacteria NEG NEG Urine Hyaline Casts 1-5 0-5 /lpf Urine Yeast BUD W/ HYPHAE NONE PRSENT Sodium Level 132 131 136-145 mmol/L Potassium Level 3.5 4.0 3.5-5.1 mmol/L Chloride Level 101 102 98-107 mmol/L Carbon Dioxide Level 21 19 21-32 mmol/L Anion Gap 10.0 10.0 3-11 mmol/L Blood Urea Nitrogen 19 20 7-18 mg/dl Creatinine 4.18 4.81 0.60-1.20 mg/dl Est Creatinine Clear Calc Drug Dose 24.0 14.1 ml/min Estimated GFR () 13.7 11.6 Estimated GFR (Non- 11.8 10.0 BUN/Creatinine Ratio 4.5 4.1 10-20 Random Glucose 137 101 70-99 mg/dl Calcium Level 8.0 8.4 8.5-10.1 mg/dl Magnesium Level 1.7 1.8-2.4 mg/dl
[2017-10-25 15:41] VITALS: BP 142/89; PULSE 81; TEMP 36.6; O2SAT 96
[2017-10-25 16:00] VITALS: O2SAT 96
[2017-10-25] MEDS: TRAZODONE HCL 50 MG TAB PO SCH (21:21)
[2017-10-25 23:06] VITALS: BP 144/86; PULSE 79; TEMP 36.7; O2SAT 93
[2017-10-26] MEDS: SODIUM CHLORIDE 0.9% 1000ML 1,000 ML IV SCH ×3 (05:14→18:53)
[2017-10-26 06:42] LABS: HEMATOCRIT 25.3 % (37-47); HEMOGLOBIN 9.1 g/dL (12.0-16.0); MEAN CELL VOLUME 95.5 fL (80-100); MEAN CORPUSCULAR HEMOGLOBIN 34.3 pg (25-34); MEAN PLATELET VOLUME 9.6 fL (7.4-10.4); PLATELET COUNT 275 K/uL (130-400); RED CELL DISTRIBUTION WIDTH CV 14.3 % (11.5-14.5); WHITE BLOOD COUNT 11.05 K/uL (4.8-10.8)
--- NOTE | 2017-10-26 07:23 | Nephrology Progress Note ---
Nephrology Progress Note Date of Service: Oct 26, 2017. Subjective 47 yo female with jerilyn in the setting of vancomycin nephrotoxicity. pt tired this morning, back hurting her more-she feels she overdid yesterday. appetite decreased today as well. although pt feels she is urinating more this morning. Objective Date Time Temp Pulse Resp B/P (MAP) Pulse Ox O2 Delivery O2 Flow Rate FiO2 10/26/17 00:30 Room Air 10/25/17 23:06 36.7 79 17 144/86 (105) 93 Room Air 10/25/17 16:00 96 Room Air 10/25/17 15:41 36.6 81 16 142/89 (106) 96 Room Air 10/25/17 12:17 36.8 83 18 130/84 (99) 97 Room Air 10/25/17 09:00 Room Air 10/25/17 08:34 95 Room Air 10/25/17 07:44 36.7 84 19 112/64 (80) 95 Room Air Physical Exam: General-aaox3 Eyes-no scleral icterus ENT-mmm Neck-supple Lungs-clear Heart-regular Abdomen-bs+ s/nt/nd Extremities-no c/c/e Neuro-nonfocal Back-bandaged Current Inpatient Medications Medications (Trade) Dose Ordered Sig/Kimmie Route Start Time Stop Time Status Last Admin Dose Admin Ioversol (Optiray 320) 100 ml UD PRN IV 10/22/17 14:30 10/26/17 14:29 Lorazepam (Ativan Tab) 0.5 mg BID PRN PO 10/22/17 18:30 11/21/17 18:29 10/24/17 23:31 0.5 MG Acetaminophen (Tylenol Tab) 650 mg Q4H PRN PO 10/22/17 18:45 11/21/17 18:44 Miscellaneous Information (Consult) 1 ea UD PRN N/A 10/22/17 18:45 11/21/17 18:44 Future Hold Miscellaneous Information (Consult) 1 ea UD PRN N/A 10/22/17 18:45 11/21/17 18:44 Fluoxetine HCl (Prozac Cap) 60 mg DAILY PO 10/23/17 09:00 11/22/17 08:59 10/25/17 07:48 60 MG Trazodone HCl (Desyrel Tab) 50 mg HS PO 10/22/17 21:00 11/22/17 08:59 10/25/17 21:21 50 MG Bupropion HCl (Wellbutrin-Xl Tab) 300 mg QAM PO 10/23/17 09:00 11/22/17 08:59 10/25/17 07:48 300 MG Salmeterol Xinafoate/ Fluticasone (Advair Diskus 100/50 Inh) 1 puff BID INH 10/22/17 21:00 11/21/17 20:59 10/25/17 20:30 1 PUFF Docusate Sodium (coLACE CAP) 100 mg BID PO 10/22/17 21:00 11/21/17 20:59 10/25/17 20:30 100 MG Pregabalin (Lyrica Cap) 50 mg BID PO 10/22/17 21:00 11/21/17 20:59 10/25/17 20:30 50 MG Ondansetron HCl (Zofran Inj) 4 mg Q8H PRN IV 10/22/17 22:30 11/21/17 22:29 Acetaminophen/ Hydrocodone Bitart ([place] 5/325 Tab) 2 tab Q4H PRN PO 10/23/17 09:30 11/06/17 09:29 10/25/17 20:28 2 TAB Al Hydrox/Mg Hydrox/Simethicone (Maalox Max Susp) 15 ml Q6H PRN PO 10/23/17 09:30 11/22/17 09:29 10/23/17 09:47 15 ML Sodium Chloride 1,000 ml @ 150 mls/hr Q6H40M IV 10/24/17 13:00 11/23/17 12:59 10/26/17 05:14 150 MLS/HR Last 24 Hours Test 10/26/17 05:58 White Blood Count 11.05 K/uL Red Blood Count 2.65 M/uL Hemoglobin 9.1 g/dL Hematocrit 25.3 % Mean Corpuscular Volume 95.5 fL Mean Corpuscular Hemoglobin 34.3 pg Mean Corpuscular Hemoglobin Concent 36.0 g/dl RDW Standard Deviation 49.0 fL RDW Coefficient of Variation 14.3 % Platelet Count 275 K/uL Mean Platelet Volume 9.6 fL Prothrombin Time 10.3 SECONDS Prothromb Time International Ratio 1.0 Assessment & Plan [id number]-thought to be vancomycin nephrotoxicity-creatinine pending for this am. may need dialysis. pt is noted to be more tired and decreased appetite today. pt though hoping to avoid dialysis. if creatinine continues to trend up tomorrow, plan on line and dialysis tomorrow. hg levels are trending down although likely dilutional. urinary eosinophils are negative. renal us benign. ua is bland. creatinine was normal at baseline. hoping creatinine eventually peaks and starts to trend down. continue iv fluids. no signs of volume overload although pt feels bloated. lungs cta.
[2017-10-26 07:31] LABS: CALCIUM 8.6 mg/dl (8.5-10.1); CREATININE 5.44 mg/dl (0.60-1.20); POTASSIUM 4.1 mmol/L (3.5-5.1)
[2017-10-26 07:48] VITALS: BP 135/86; PULSE 97; TEMP 36.9; O2SAT 94
[2017-10-26] MEDS: HYDROCODONE/ACETAMIN 5/325MG TAB PO PRN ×3 (08:45→20:11)
[2017-10-26] MEDS: DOCUSATE SODIUM 100 MG CAP PO SCH ×2 (08:46→21:01)
[2017-10-26] MEDS: BuPROPion XL 300 MG TABCR PO SCH (08:46)
[2017-10-26] MEDS: FLUOXETINE HCL 20 MG CAP PO SCH (08:46)
[2017-10-26] MEDS: FLUTICASONE/SALMETEROL 100/50 (ADVAIR) 14 PUFF/1 INHALER INH SCH ×2 (08:46→21:01)
[2017-10-26] MEDS: PREGABALIN 50 MG CAP PO SCH ×2 (08:48→21:01)
--- NOTE | 2017-10-26 10:01 | Progress Note ---
Subjective Date of Service: Oct 26, 2017. Subjective Pt evaluation today including: conversation w/ patient, physical exam, chart review, lab review Patient seen in follow-up exam. She is doing well. She states her urine output has picked up significantly this morning. She has no pain with urination. On my examination she denies any back pain. She states the wound is not draining. She has no fevers or chills. Her antibiotics were discontinued after she developed acute renal injury elevated Vanco level. Her creatinine unfortunately increased today to 5.4. She is being followed by Nephrology. She would like to hold off on dialysis and she states her urine output is picking up. She is drinking fluids. She remains afebrile. Her white blood cell count is mildly elevated today at. She is currently not on any antibiotics. Her blood cultures which were obtained in the emergency room are no growth to date. Wound culture which was obtained hospital admission day 1 has rare coagulase-negative Staph growing but her Gram stain is negative. She currently denies chest pain cough shortness of breath nausea vomiting diarrhea. She is not on any antibiotics. She states overall she is feeling better. Her remaining review of systems is reviewed and unremarkable. Problem List Medical Problems: (1) Lingular pneumonia Status: Acute (2) Postoperative infection Status: Acute Objective Vital Signs Date Time Temp Pulse Resp B/P (MAP) Pulse Ox O2 Delivery O2 Flow Rate FiO2 10/26/17 07:48 36.9 97 16 135/86 (102) 94 Room Air 10/26/17 07:35 Room Air 10/26/17 00:30 Room Air 10/25/17 23:06 36.7 79 17 144/86 (105) 93 Room Air 10/25/17 16:00 96 Room Air 10/25/17 15:41 36.6 81 16 142/89 (106) 96 Room Air 10/25/17 12:17 36.8 83 18 130/84 (99) 97 Room Air Physical Exam General Appearance: WD/WN, no apparent distress Eyes: normal inspection, EOMI Neck: supple Respiratory/Chest: lungs clear, normal breath sounds, no respiratory distress, no accessory muscle use Cardiovascular: regular rate, rhythm, no edema Abdomen: non tender, soft Extremities: non-tender, no pedal edema Neurologic/Psychiatric: alert, oriented x 3 Skin: normal color Laboratory Results Item Value Date Time Gram Stain - Final Complete 2/12/18 1225 Incision Site Back Blood Culture - Preliminary Resulted 10/22/17 1420 Blood NO GROWTH TO DATE. Blood Culture - Preliminary Resulted 10/22/17 1410 Blood NO GROWTH TO DATE. Last 24 Hours Test 10/26/17 05:58 White Blood Count 11.05 K/uL Red Blood Count 2.65 M/uL Hemoglobin 9.1 g/dL Hematocrit 25.3 % Mean Corpuscular Volume 95.5 fL Mean Corpuscular Hemoglobin 34.3 pg Mean Corpuscular Hemoglobin Concent 36.0 g/dl RDW Standard Deviation 49.0 fL RDW Coefficient of Variation 14.3 % Platelet Count 275 K/uL Mean Platelet Volume 9.6 fL Prothrombin Time 10.3 SECONDS Prothromb Time International Ratio 1.0 Sodium Level 132 mmol/L Potassium Level 4.1 mmol/L Chloride Level 106 mmol/L Carbon Dioxide Level 16 mmol/L Anion Gap 10.0 mmol/L Blood Urea Nitrogen 25 mg/dl Creatinine 5.44 mg/dl Est Creatinine Clear Calc Drug Dose 12.4 ml/min Estimated GFR () 10.0 Estimated GFR (Non- 8.6 BUN/Creatinine Ratio 4.6 Random Glucose 81 mg/dl Calcium Level 8.6 mg/dl Magnesium Level 1.7 mg/dl Random Vancomycin Level 60.6 mcg/ml Assessment and Plan (1) Postoperative infection Assessment & Plan: Radiology is reading her fluid collection as seroma. She states that drainage has decreased. Her wound is stable not worsening off of antibiotics she is afebrile and hemodynamically stable. She is currently off of all antibiotics due to Vanco toxicity. Her Vanco level is improved today however her creatinine is somewhat worse. She will continue to be monitored closely. At this time she states she would like to remain off of dialysis if at all possible and continue pushing fluid intake. Did have a long discussion with the patient regarding the results of her blood culture as well as a result of her wound culture. Her Gram stain was negative and she is only growing rare coagulase-negative staph which I feel this skin raimundo as this was a culture done at the bedside certainly could be colonized with skin raimundo. We did discuss treatment with antibiotics just in case on this did show a pathogen and infected fluid however as the patient is afebrile and clinically stable off of antibiotics she would like to remain off antibiotics for the next several days and monitor her symptoms. Should she have any worsening back pain increased drainage fevers or leukocytosis she will be started on antibiotics to treat the coagulase-negative Staph. We did discuss options that would not be cleared to the kidneys and would not any added risk to her renal improvement however she would like to remain off of antibiotics at this time.
[2017-10-26 16:15] VITALS: O2SAT 94
--- NOTE | 2017-10-26 16:58 | Progress Note ---
Internal Med Progress Note Date of Service: Oct 26, 2017. Provider Documentation: SUBJECTIVE: resting comfortably has some soreness in back ambulated some denies diarrhea afebrile making urine fine no nausea no sob OBJECTIVE: Vital Signs-as noted below Exam: General-alert and oriented. Not in distress ENT-normal hearing Neck-no neck masses Lungs-cta b/l no wheezing or crackles Heart-s1 and s2 heard regular rate and rhythm no murmurs Abdomen-soft bowel sounds present non tender no distension Extremities-no edema no erythema Neuro-alert and awake moves extremities Lab data as noted below. ASSESSMENT & PLAN: This is a 47 year old female with a PMH of mood disorder, fibromyalgia, asthma/ COPD, tobacco use disorder, recent lumbar surgery (decompression/fusion) - presents with pus draining from the surgical site. CARLOS- Mostly secondary to vancomycin. vanco trough 70 cr 5.4 today nephrology on board. fluids as per nephrology if no improvement plan for dialysis as per nephrology will f/u labs. Post-operative Fluid collection: Likely Seroma and doubt any Infection fluid filled collection in the L4-S1 area -Lumbar CT already performed::1. 9 x 4 x 3.5 cm slightly hyperdense collection extending from L4 through S1 involving the subcutaneous fat exclusively.. ID on board Dr. High discussed with Dr Dykes who reviewed the film and thinks the collection likely to be seroma currently off of abx will monitor COPD/Asthma stable on home inhalers Mood Disorder To continue home medications very anxious now Fibromyalgia To continue home medications No acute issue DVT ppx SCDs, FULL CODE Disposition To be determined Ortho Dr Obando #[phone] Vital Signs: Date Time Temp Pulse Resp B/P (MAP) Pulse Ox O2 Delivery O2 Flow Rate FiO2 10/26/17 07:48 36.9 97 16 135/86 (102) 94 Room Air 10/26/17 07:35 Room Air 10/26/17 00:30 Room Air 10/25/17 23:06 36.7 79 17 144/86 (105) 93 Room Air Lab Results: Results Past 24 Hours Test 10/26/17 05:58 Range/Units White Blood Count 11.05 4.8-10.8 K/uL Red Blood Count 2.65 4.2-5.4 M/uL Hemoglobin 9.1 12.0-16.0 g/dL Hematocrit 25.3 37-47 % Mean Corpuscular Volume 95.5 80-100 fL Mean Corpuscular Hemoglobin 34.3 25-34 pg Mean Corpuscular Hemoglobin Concent 36.0 32-36 g/dl RDW Standard Deviation 49.0 36.4-46.3 fL RDW Coefficient of Variation 14.3 11.5-14.5 % Platelet Count 275 130-400 K/uL Mean Platelet Volume 9.6 7.4-10.4 fL Prothrombin Time 10.3 9.0-12.0 SECONDS Prothromb Time International Ratio 1.0 0.9-1.1 Sodium Level 132 136-145 mmol/L Potassium Level 4.1 3.5-5.1 mmol/L Chloride Level 106 98-107 mmol/L Carbon Dioxide Level 16 21-32 mmol/L Anion Gap 10.0 3-11 mmol/L Blood Urea Nitrogen 25 7-18 mg/dl Creatinine 5.44 0.60-1.20 mg/dl Est Creatinine Clear Calc Drug Dose 12.4 ml/min Estimated GFR () 10.0 Estimated GFR (Non- 8.6 BUN/Creatinine Ratio 4.6 10-20 Random Glucose 81 70-99 mg/dl Calcium Level 8.6 8.5-10.1 mg/dl Magnesium Level 1.7 1.8-2.4 mg/dl Random Vancomycin Level 60.6 mcg/ml
[2017-10-26] MEDS: TRAZODONE HCL 50 MG TAB PO SCH (21:01)
[2017-10-26 22:57] VITALS: BP 146/92; PULSE 82; TEMP 36.7; O2SAT 92
[2017-10-27] MEDS: SODIUM CHLORIDE 0.9% 1000ML 1,000 ML IV SCH ×2 (01:04→07:33)
--- NOTE | 2017-10-27 05:29 | Nephrology Progress Note ---
Nephrology Progress Note Date of Service: Oct 27, 2017. Subjective 47 yo female with jerilyn in the setting of vancomycin nephrotoxicity. pt doing well and urinating very well. continues to have mild back pain. no sob. expressed wishes of wanting to avoid dialysis if possible. have been treating conservatively with iv fluids. Objective Date Time Temp Pulse Resp B/P (MAP) Pulse Ox O2 Delivery O2 Flow Rate FiO2 10/27/17 00:10 Room Air 10/26/17 22:57 36.7 82 16 146/92 (110) 92 Room Air 10/26/17 16:15 94 Room Air 10/26/17 07:48 36.9 97 16 135/86 (102) 94 Room Air 10/26/17 07:35 Room Air Physical Exam: General-aaox3 Eyes-no scleral icterus ENT-mmm Neck-supple Lungs-cta Heart-rrr Abdomen-bs+ s/nt/nd Extremities-no c/c/e Neuro-nonfocal Back-bandaged Current Inpatient Medications Medications (Trade) Dose Ordered Sig/Kimmie Route Start Time Stop Time Status Last Admin Dose Admin Lorazepam (Ativan Tab) 0.5 mg BID PRN PO 10/22/17 18:30 11/21/17 18:29 10/24/17 23:31 0.5 MG Acetaminophen (Tylenol Tab) 650 mg Q4H PRN PO 10/22/17 18:45 11/21/17 18:44 Fluoxetine HCl (Prozac Cap) 60 mg DAILY PO 10/23/17 09:00 11/22/17 08:59 10/26/17 08:46 60 MG Trazodone HCl (Desyrel Tab) 50 mg HS PO 10/22/17 21:00 11/22/17 08:59 10/26/17 21:01 50 MG Bupropion HCl (Wellbutrin-Xl Tab) 300 mg QAM PO 10/23/17 09:00 11/22/17 08:59 10/26/17 08:46 300 MG Salmeterol Xinafoate/ Fluticasone (Advair Diskus 100/50 Inh) 1 puff BID INH 10/22/17 21:00 11/21/17 20:59 10/26/17 21:01 1 PUFF Docusate Sodium (coLACE CAP) 100 mg BID PO 10/22/17 21:00 11/21/17 20:59 10/26/17 21:01 100 MG Pregabalin (Lyrica Cap) 50 mg BID PO 10/22/17 21:00 11/21/17 20:59 10/26/17 21:01 50 MG Ondansetron HCl (Zofran Inj) 4 mg Q8H PRN IV 10/22/17 22:30 11/21/17 22:29 Acetaminophen/ Hydrocodone Bitart ([place] 5/325 Tab) 2 tab Q4H PRN PO 10/23/17 09:30 11/06/17 09:29 10/26/17 20:11 2 TAB Al Hydrox/Mg Hydrox/Simethicone (Maalox Max Susp) 15 ml Q6H PRN PO 10/23/17 09:30 11/22/17 09:29 10/23/17 09:47 15 ML Sodium Chloride 1,000 ml @ 150 mls/hr Q6H40M IV 10/24/17 13:00 11/23/17 12:59 10/27/17 01:04 150 MLS/HR Last 24 Hours Test 10/26/17 05:58 10/27/17 04:49 White Blood Count 11.05 K/uL Red Blood Count 2.65 M/uL Hemoglobin 9.1 g/dL Hematocrit 25.3 % Mean Corpuscular Volume 95.5 fL Mean Corpuscular Hemoglobin 34.3 pg Mean Corpuscular Hemoglobin Concent 36.0 g/dl RDW Standard Deviation 49.0 fL RDW Coefficient of Variation 14.3 % Platelet Count 275 K/uL Mean Platelet Volume 9.6 fL Prothrombin Time 10.3 SECONDS Prothromb Time International Ratio 1.0 Sodium Level 132 mmol/L Potassium Level 4.1 mmol/L Chloride Level 106 mmol/L Carbon Dioxide Level 16 mmol/L Anion Gap 10.0 mmol/L Blood Urea Nitrogen 25 mg/dl Creatinine 5.44 mg/dl Est Creatinine Clear Calc Drug Dose 12.4 ml/min Estimated GFR () 10.0 Estimated GFR (Non- 8.6 BUN/Creatinine Ratio 4.6 Random Glucose 81 mg/dl Calcium Level 8.6 mg/dl Magnesium Level 1.7 mg/dl Random Vancomycin Level 60.6 mcg/ml Assessment & Plan [id number]-thought to be vancomycin nephrotoxicity-I was notified by pharmacy yesterday that we gave a higher dose of vancomycin than was indicated based on inaccurate weights. An incident report has been filed. I explained this to the patient and answered her questions thoroughly. We will focus on measures to try to prevent a similar incident in the future. for now, urinating well. not uremic. labs pending for this am. currently npo and pt is thirsty. after labs come back this morning, will determine whether to proceed with dialysis or continue to monitor.
[2017-10-27 06:40] LABS: CALCIUM 8.6 mg/dl (8.5-10.1); CREATININE 5.7 mg/dl (0.60-1.20)
[2017-10-27 07:15] VITALS: BP 158/97; PULSE 96; TEMP 37; O2SAT 91
[2017-10-27] MEDS: HYDROCODONE/ACETAMIN 5/325MG TAB PO PRN ×3 (07:34→19:41)
[2017-10-27] MEDS: BuPROPion XL 300 MG TABCR PO SCH (07:36)
[2017-10-27] MEDS: FLUTICASONE/SALMETEROL 100/50 (ADVAIR) 14 PUFF/1 INHALER INH SCH ×2 (07:36→20:55)
[2017-10-27] MEDS: DOCUSATE SODIUM 100 MG CAP PO SCH ×2 (07:36→20:55)
[2017-10-27] MEDS: PREGABALIN 50 MG CAP PO SCH ×2 (07:40→20:55)
[2017-10-27] MEDS: FLUOXETINE HCL 20 MG CAP PO SCH (08:05)
--- NOTE | 2017-10-27 10:40 | Progress Note ---
Subjective Date of Service: Oct 27, 2017. Subjective pt remains stable off of abx, wbc improved, afebrile. unfortunately creat increased today. no vanco level today. trying to avoid HD. blood cultures remain negative x 2 Problem List Medical Problems: (1) Lingular pneumonia Status: Acute (2) Postoperative infection Status: Acute Objective Vital Signs Date Time Temp Pulse Resp B/P (MAP) Pulse Ox O2 Delivery O2 Flow Rate FiO2 10/27/17 07:15 37.0 96 16 158/97 (117) 91 Room Air 10/27/17 07:15 Room Air 10/27/17 00:10 Room Air 10/26/17 22:57 36.7 82 16 146/92 (110) 92 Room Air 10/26/17 16:15 94 Room Air Laboratory Results Item Value Date Time Gram Stain - Final Complete 10/23/17 1225 Incision Site Back Blood Culture - Preliminary Resulted 10/22/17 1420 Blood NO GROWTH TO DATE. Blood Culture - Preliminary Resulted 10/22/17 1410 Blood NO GROWTH TO DATE. Last 24 Hours Test 10/27/17 05:30 Sodium Level 133 mmol/L Potassium Level 4.0 mmol/L Chloride Level 108 mmol/L Carbon Dioxide Level 15 mmol/L Anion Gap 10.0 mmol/L Blood Urea Nitrogen 25 mg/dl Creatinine 5.70 mg/dl Est Creatinine Clear Calc Drug Dose 11.9 ml/min Estimated GFR () 9.4 Estimated GFR (Non- 8.1 BUN/Creatinine Ratio 4.5 Random Glucose 82 mg/dl Calcium Level 8.6 mg/dl Assessment and Plan (1) Postoperative infection Assessment & Plan: Radiology is reading her fluid collection as seroma. She states that drainage has decreased. Her wound is stable not worsening off of antibiotics she is afebrile and hemodynamically stable. She is currently off of all antibiotics due to Vanco toxicity. Her Vanco level is improved however her creatinine is somewhat worse. She will continue to be monitored closely. At this time she states she would like to remain off of dialysis if at all possible and continue pushing fluid intake. Did have a long discussion yesterday with the patient regarding the results of her blood culture as well as a result of her wound culture. Her Gram stain was negative and she is only growing rare coagulase-negative staph which I feel this skin raimundo as this was a culture done at the bedside certainly could be colonized with skin raimundo. We did discuss treatment with antibiotics just in case on this did show a pathogen and infected fluid however as the patient is afebrile and clinically stable off of antibiotics she would like to remain off antibiotics for the next several days and monitor her symptoms. Should she have any worsening back pain increased drainage fevers or leukocytosis she will be started on antibiotics to treat the coagulase-negative Staph. We did discuss options that would not be cleared to the kidneys and would not any added risk to her renal improvement however she would like to remain off of antibiotics at this time.
[2017-10-27 14:34] VITALS: O2SAT 96
[2017-10-27 15:10] VITALS: O2SAT 96
[2017-10-27 15:26] VITALS: BP 169/107; PULSE 84; TEMP 36.7; O2SAT 95
[2017-10-27] MEDS: ALBUTEROL HFA 8 GM INHALER INH PRN ×2 (15:28→20:56)
--- NOTE | 2017-10-27 17:52 | Progress Note ---
Internal Med Progress Note Date of Service: Oct 27, 2017. Provider Documentation: SUBJECTIVE: feels sob feels swelling of her hands and legs afebrile no cough no nausea eating ok micturating fine ' OBJECTIVE: Vital Signs-as noted below Exam: General-alert and oriented. Not in distress ENT-normal hearing Neck-no neck masses Lungs-cta b/l no wheezing or crackles Heart-s1 and s2 heard regular rate and rhythm no murmurs Abdomen-soft bowel sounds present non tender no distension Extremities-trace pedal edema no erythema Neuro-alert and awake moves extremities Lab data as noted below. ASSESSMENT & PLAN: This is a 47 year old female with a PMH of mood disorder, fibromyalgia, asthma/ COPD, tobacco use disorder, recent lumbar surgery (decompression/fusion) - presents with pus draining from the surgical site. CARLOS- Mostly secondary to vancomycin. vanco trough 70 cr 5.7 today nephrology on board. fluids as per nephrology stopped fluids today as patient feeling somewhat sob if no improvement plan for dialysis as per nephrology will f/u labs. Post-operative Fluid collection: Likely Seroma and doubt any Infection fluid filled collection in the L4-S1 area -Lumbar CT already performed::1. 9 x 4 x 3.5 cm slightly hyperdense collection extending from L4 through S1 involving the subcutaneous fat exclusively.. ID on board Dr. High discussed with Dr Dykes who reviewed the film and thinks the collection likely to be seroma currently off of abx seems stable will monitor COPD/Asthma stable on home inhalers Mood Disorder To continue home medications very anxious now Fibromyalgia To continue home medications No acute issue DVT ppx SCDs, FULL CODE Disposition To be determined Ortho Dr Obando #[phone] Vital Signs: Date Time Temp Pulse Resp B/P (MAP) Pulse Ox O2 Delivery O2 Flow Rate FiO2 10/27/17 15:26 36.7 84 16 169/107 (127) 95 Room Air 10/27/17 15:10 96 Room Air 10/27/17 14:34 96 Room Air 10/27/17 07:15 37.0 96 16 158/97 (117) 91 Room Air 10/27/17 07:15 Room Air 10/27/17 00:10 Room Air 10/26/17 22:57 36.7 82 16 146/92 (110) 92 Room Air Lab Results: Results Past 24 Hours Test 10/27/17 05:30 Range/Units Sodium Level 133 136-145 mmol/L Potassium Level 4.0 3.5-5.1 mmol/L Chloride Level 108 98-107 mmol/L Carbon Dioxide Level 15 21-32 mmol/L Anion Gap 10.0 3-11 mmol/L Blood Urea Nitrogen 25 7-18 mg/dl Creatinine 5.70 0.60-1.20 mg/dl Est Creatinine Clear Calc Drug Dose 11.9 ml/min Estimated GFR () 9.4 Estimated GFR (Non- 8.1 BUN/Creatinine Ratio 4.5 10-20 Random Glucose 82 70-99 mg/dl Calcium Level 8.6 8.5-10.1 mg/dl
[2017-10-27] MEDS: TRAZODONE HCL 50 MG TAB PO SCH (20:55)
[2017-10-27 23:30] VITALS: BP 145/85; PULSE 96; TEMP 36.7; O2SAT 91
[2017-10-28] VITALS (15 sets, daily range): BP systolic 140–186; BP diastolic 62–103; PULSE 70–92; TEMP 36.6–37; O2SAT 90–94
[2017-10-28 07:04] LABS: CALCIUM 8.6 mg/dl (8.5-10.1); CREATININE 6.29 mg/dl (0.60-1.20)
[2017-10-28] MEDS: ALBUTEROL HFA 8 GM INHALER INH PRN (07:43)
[2017-10-28] MEDS: LORAZEPAM 0.5 MG TAB PO PRN (07:43)
--- NOTE | 2017-10-28 08:25 | DIAGNOSTIC IMAGING REPORT ---
CHEST ONE VIEW PORTABLE HISTORY: rales COMPARISON: Chest 07/25/2016. FINDINGS: No pneumothorax. Small right and trace left pleural effusions. Patchy bibasilar densities. The heart is mildly enlarged. There is diffuse interstitial and vascular thickening consistent with pulmonary edema. IMPRESSION: 1. Moderate pulmonary edema with bilateral pleural effusions. 2. Bibasilar densities are nonspecific but may represent atelectasis from the pleural effusion. A pneumonia could also have a similar appearance. Electronically signed by: Bear Duckworth M.D. 10/28/2017 8:24 AM Dictated Date/Time: 10/28/2017 8:22 AM
[2017-10-28] MEDS ORDERED: FUROSEMIDE INJ 60 MG in SYRINGE 0 ML IV STA (08:39)
[2017-10-28] MEDS: PREGABALIN 50 MG CAP PO SCH ×2 (09:44→21:17)
[2017-10-28] MEDS: FLUTICASONE/SALMETEROL 100/50 (ADVAIR) 14 PUFF/1 INHALER INH SCH ×2 (09:45→21:18)
[2017-10-28] MEDS: FLUOXETINE HCL 20 MG CAP PO SCH (09:45)
[2017-10-28] MEDS: BuPROPion XL 300 MG TABCR PO SCH (09:46)
[2017-10-28] MEDS: DOCUSATE SODIUM 100 MG CAP PO SCH (09:46)
[2017-10-28] MEDS: HYDROCODONE/ACETAMIN 5/325MG TAB PO PRN ×3 (09:47→21:23)
--- NOTE | 2017-10-28 10:15 | Critical Care Consultation ---
Critical Care Consultation Date of Consultation: Oct 28, 2017. Attending Physician: Ronnie Burton MD Reason for Consultation: Placement of a right IJ temporary dialysis catheter History of Present Illness 47 yo female s/p spinal fusion on 11Oct2017 was admitted on for wound dehiscence and pus draining from the surgical site. Patient was started on antibiotics to include vancomycin at that time. Noted to have CARLOS on attributed to vancomycin nephrotoxicity. Nephrology onboard. They consulted the ICU this morning requesting placement of a temporary dialysis catheter. Discussed the above with the patient at bedside this morning. We discussed the request for the catheter placement, discussing the benefits + risks + alternatives with the patient, answering all her questions along the way. She provided written consent for the procedure. She expressed no immediate medical concerns. Past Medical/Surgical History Past Medical History (1) Asthma (2) Fibromyalgia (3) Mood disorder (4) COPD (5) Tobacco use disorder (6) Anxiety / depression Past Surgical History (1) Lumbar decompression/fusion 11Oct2017 Family History Patient reports no known family medical history. Social History Smoking Status: Current Every Day Smoker Marital Status: single Housing Status: lives alone Occupation Status: employed Allergies Coded Allergies: Latex1 -Allergic Contact Dermititis (Unverified Adverse Reaction, Unknown , ITCHY, 10/22/17) Home Medications Scheduled Bupropion Hcl (Bupropion Hcl Xl), 1 TAB PO QAM Docusate Sodium (Colace), 1 CAP PO BID Fluoxetine Hcl (Prozac), 20 MG PO DAILY Fluticasone Prop/Salmeterol (Advair Diskus 100-50 Mcg/Dose), 1 INHA INH BID Loratadine (Claritin), 1 CAP PO DAILY Pregabalin (Lyrica), 50 MG PO BID Trazodone Hcl (Trazodone), 50 MG PO HS Scheduled PRN Albuterol Hfa (Ventolin Hfa), 2-4 PUFFS INH Q6H PRN for SOB/Wheezing Hydrocodone/Acetaminophen 5MG/325MG ([place] 5MG/325MG), 1 TABLET PO Q8 PRN for Pain Ipratropium-Albuterol (Combivent Respimat), 1 PUFF INH QID PRN for SOB/Wheezing Ipratropium-Albuterol (Duoneb), 1 TREATMENT INH UD PRN for SOB/Wheezing Lorazepam (Ativan), 0.5 MG PO BID PRN for Anxiety Miscellaneous Medications Fluoxetine Hcl (Prozac), 40 MG PO Current Inpatient Medications Current Inpatient Medications Medications (Trade) Dose Ordered Sig/Kimmie Route Start Time Stop Time Status Last Admin Dose Admin Lorazepam (Ativan Tab) 0.5 mg BID PRN PO 10/22/17 18:30 11/21/17 18:29 10/28/17 07:43 0.5 MG Acetaminophen (Tylenol Tab) 650 mg Q4H PRN PO 10/22/17 18:45 11/21/17 18:44 Fluoxetine HCl (Prozac Cap) 60 mg DAILY PO 10/23/17 09:00 11/22/17 08:59 10/27/17 08:05 60 MG Trazodone HCl (Desyrel Tab) 50 mg HS PO 10/22/17 21:00 11/22/17 08:59 10/27/17 20:55 50 MG Bupropion HCl (Wellbutrin-Xl Tab) 300 mg QAM PO 10/23/17 09:00 11/22/17 08:59 10/27/17 07:36 300 MG Salmeterol Xinafoate/ Fluticasone (Advair Diskus 100/50 Inh) 1 puff BID INH 10/22/17 21:00 11/21/17 20:59 10/27/17 20:55 1 PUFF Docusate Sodium (coLACE CAP) 100 mg BID PO 10/22/17 21:00 11/21/17 20:59 10/27/17 20:55 100 MG Pregabalin (Lyrica Cap) 50 mg BID PO 10/22/17 21:00 11/21/17 20:59 10/27/17 20:55 50 MG Ondansetron HCl (Zofran Inj) 4 mg Q8H PRN IV 10/22/17 22:30 11/21/17 22:29 Acetaminophen/ Hydrocodone Bitart ([place] 5/325 Tab) 2 tab Q4H PRN PO 10/23/17 09:30 11/06/17 09:29 10/27/17 19:41 2 TAB Al Hydrox/Mg Hydrox/Simethicone (Maalox Max Susp) 15 ml Q6H PRN PO 10/23/17 09:30 11/22/17 09:29 10/23/17 09:47 15 ML Albuterol (Ventolin Hfa Inhaler) 2 puffs Q4 PRN INH 10/27/17 14:45 11/26/17 14:44 10/28/17 07:43 2 PUFFS Review of Systems Constitutional: No fever Respiratory: No cough, No shortness of breath Cardiovascular: No edema Abdomen: No nausea, No vomiting Psychiatric: + depression symptoms, + anxiety Physical Exam Date Time Temp Pulse Resp B/P (MAP) Pulse Ox O2 Delivery O2 Flow Rate FiO2 10/28/17 07:35 36.7 92 17 159/100 (119) 93 Room Air 161/103 (122) 10/28/17 07:30 Room Air 10/27/17 23:30 36.7 96 16 145/85 (105) 91 Room Air 10/27/17 22:40 Room Air 10/27/17 15:26 36.7 84 16 169/107 (127) 95 Room Air 10/27/17 15:10 96 Room Air 10/27/17 14:34 96 Room Air GENERAL: Awake, alert, oriented, mildly anxious prior to the procedure, but in NAD. HEENT: NCAT. EOMI, clear conjunctiva. Moist oral MM. Supple neck. Extremities: Moving about easily and comfortably. Neuro: No gross motor deficits. Walking easily. Derm: No overlying right neck erythema, edema, or rashes seen. Laboratory Results Last 24 Hours Test 10/28/17 05:11 10/28/17 09:24 Sodium Level 135 mmol/L Potassium Level 4.0 mmol/L Chloride Level 108 mmol/L Carbon Dioxide Level 17 mmol/L Anion Gap 11.0 mmol/L Blood Urea Nitrogen 29 mg/dl Creatinine 6.29 mg/dl Est Creatinine Clear Calc Drug Dose 10.8 ml/min Estimated GFR () 8.4 Estimated GFR (Non- 7.2 BUN/Creatinine Ratio 4.6 Random Glucose 75 mg/dl Calcium Level 8.6 mg/dl Assessment & Plan 47 yo female s/p spinal fusion with an CARLOS related to vancomycin use. Nephrology requests placement of a temporary dialysis catheter. No acute critical care issues identified otherwise. Discussed the above with the patient at bedside this morning. We discussed the request for the catheter placement, discussing the benefits + risks + alternatives with the patient, answering all her questions along the way. She provided written consent for the procedure. She expressed no immediate medical concerns. Please see related procedural note for ultrasound-guided temporary dialysis catheter placement into the right IJ. Patient tolerated the procedure well and was without acute complications. Resident Physician Supervision Note: Dr. Wheeler was resident physician during care of patient. I separately evaluated patient and did history and exam. I discussed the case with the resident and generally agree with the findings and plan. Encounter for placement of hemodialysis catheter for AK I secondary to vancomycin. I discussed the case with Dr. Valentine. Documented By: Antony Valverde DO Resident Tracking Resident Involvement: Resident Care Provided (ICU consult) Care Provided: Adult Hospital Medicine
--- NOTE | 2017-10-28 10:20 | Procedure Note ---
Procedure Note Date of Service Oct 28, 2017. (Josh. Wheeler M.D.) Procedure Note Temporary Dialysis Catheter Placement: Consent was obtained prior to procedure. Indication, risks, and benefits were explained at length. Procedure Date: 28Oct2017 Indication: Need for temporary dialysis Attending: Elodia Valverde DO Resident/Physician [employer] Architect: Rafael Wheeler MD Procedure: Placement of a right IJ temporary dialysis catheter Procedure was performed under strict sterile field in O.R. fashion. The right neck and chest were cleaned with chloroprep scrub and the pt was draped in sterile fashion. The internal jugular vein was identified using ultrasound. After anesthetizing the area with 5 mL of lidocaine, venous blood was withdrawn after accessing the vein under ultrasound guidance. The syringe was removed and a guide wire was advanced into the introducer needle. Serial dilation was advanced after being exchanged for the introducer needle. After appropriate dilation was obtained, the dilator was removed and the central catheter was placed over the guide wire using Seldinger technique. The wire was removed intact and the catheter was sutured at 16 cm. A surgical dressing was placed over the catheter with a biofilm shield in place. At the time of the procedure each port was aspirated and then flushed properly. Pt tolerated the procedure well with no complications. Post procedure x-ray was completed, placement was appropriate and no pneumothorax was noted. Ultrasound for Temporary Dialysis Catheter Placement: Critical Care Medicine Point of Care Bedside Ultrasound Procedure: Procedural Ultrasound Procedure Date: 28Oct2017 Indication: Need for temporary dialysis Attending: Elodia Valverde DO Resident/Physician [employer] Architect: Rafael Wheeler MD Organs Examined: Right neck vasculature Objects visualized: Same If for central venous access Artery AND Vein visualized: Yes Compressible Vein: Yes Guidewire or Short Catheter seen in vein prior to dilation: Yes Line confirmed in Vein with ultrasound: Yes Lung Sliding on side of attempt (if applicable): N/a If no lung sliding or not obtained has CXR been ordered: Yes Impression: Right jugular central venous catheter terminates at the expected location of the SVC. No pneumothorax. Small right pleural effusion persist. Bibasilar linear densities are again noted. The heart remains mildly enlarged. Mild congestive change has improved. Plan: For use with temporary dialysis Images obtained are saved for permanent record (Josh. Wheeler M.D.) I was present and assisted during the entire procedure. (Antony Valverde, D.O.) Resident Tracking Resident Involvement: Resident Care Provided Care Provided: Adult [facility] (Central line placement) (Josh. Wheeler M.D.)
--- NOTE | 2017-10-28 10:35 | DIAGNOSTIC IMAGING REPORT ---
CHEST ONE VIEW PORTABLE HISTORY: s/p right IJ temp dialysis catheter placement COMPARISON: Chest 10/28/2017. FINDINGS: Right jugular central venous catheter terminates at the expected location of the SVC. No pneumothorax. Small right pleural effusion persist. Bibasilar linear densities are again noted. The heart remains mildly enlarged. Mild congestive change has improved. IMPRESSION: 1. Right jugular central venous catheter terminates at the SVC. 2. Mild congestive change has improved. 3. Bibasilar densities persist. Electronically signed by: Bear Duckworth M.D. 10/28/2017 10:34 AM Dictated Date/Time: 10/28/2017 10:33 AM
--- NOTE | 2017-10-28 13:37 | PROGRESS NOTE ---
DATE: 10/28/2017 DIALYSIS NOTE The patient was seen during dialysis. She is complaining of slight pain of around new dialysis catheter site; otherwise denies nausea, vomiting, chest pain, shortness of breath, or really any symptoms. She is making urine. Yesterday, she had a total of 1950 mL of urine; however, her weight is going up a lot and she is very worried about the big weight gain, which is all water weight. PHYSICAL EXAMINATION: VITAL SIGNS: Blood pressure 148/89, pulse rate 86, temperature 36.6, 93% on room air. HEENT: Mucous membranes are moist. NECK: Supple. No jugular venous distention. CHEST: Bilateral occasional crackles. CARDIOVASCULAR: S1 and S2, regular. ABDOMEN: Soft, nontender. EXTREMITIES: Shows trace to 1+ edema. LABORATORY TESTS: From this morning shows a WBC count of 11,000, platelet count 275, hemoglobin 9.1. BUN 29, creatinine 6.29, sodium 135, potassium 4.0, chloride 108, and calcium 8.6. ASSESSMENT AND PLAN: A 47-year-old female with acute renal failure, nonoliguric type. She is otherwise asymptomatic but because of the rising creatinine, which is now up to more than 6, she was started on dialysis. Today is her first dialysis. Given that her BUN is only 29, I do not think she needs to be dialyzed tomorrow again. She does have significant water weight gain. I would give her Lasix 80 mg IV x1 now and continue to do labs on daily basis. MTDD
[2017-10-28] MEDS ORDERED: FUROSEMIDE INJ 80 MG in SYRINGE 0 ML IV ONE (14:15)
[2017-10-28] MEDS ORDERED: CLONIDINE HCL 0.1 MG TAB PO PRN (15:45)
--- NOTE | 2017-10-28 16:54 | Progress Note ---
Internal Med Progress Note Date of Service: Oct 28, 2017. Provider Documentation: SUBJECTIVE: s/p temporary dialysis catheter in right IJ s/p dialysis today denies sob today no cough no cheat pin has some back pain no fevers constipated OBJECTIVE: Vital Signs-as noted below Exam: General-alert and oriented. Not in distress ENT-normal hearing Neck-no neck masses Lungs-cta b/l no wheezing or crackles Heart-s1 and s2 heard regular rate and rhythm no murmurs Abdomen-soft bowel sounds present non tender no distension Extremities-trace pedal edema no erythema Neuro-alert and awake moves extremities Lab data as noted below. ASSESSMENT & PLAN: This is a 47 year old female with a PMH of mood disorder, fibromyalgia, asthma/ COPD, tobacco use disorder, recent lumbar surgery (decompression/fusion) - presents with pus draining from the surgical site. CARLOS- Mostly secondary to vancomycin. vanco trough 70 cr 6.2 today nephrology on board.Received fluids as per nephrology stopped fluids yesterday as patient feeling somewhat sob as Cr still rising s/p temporary dialysis catheter and dialysis was initiated will f/u labs. Post-operative Fluid collection: Likely Seroma and doubt any Infection fluid filled collection in the L4-S1 area -Lumbar CT already performed::1. 9 x 4 x 3.5 cm slightly hyperdense collection extending from L4 through S1 involving the subcutaneous fat exclusively.. ID on board Dr. High discussed with Dr Dykes who reviewed the film and thinks the collection likely to be seroma currently off of abx seems stable will monitor Constipation stool softeners COPD/Asthma stable on home inhalers Mood Disorder To continue home medications very anxious now Fibromyalgia To continue home medications No acute issue DVT ppx SCDs, FULL CODE Disposition To be determined Ortho Dr Obando #[phone] Vital Signs: Date Time Temp Pulse Resp B/P (MAP) Pulse Ox O2 Delivery O2 Flow Rate FiO2 10/28/17 15:27 36.8 76 18 158/95 (116) 94 Room Air 10/28/17 15:00 37.0 70 186/100 (128) 10/28/17 14:30 82 155/62 10/28/17 14:15 77 164/93 10/28/17 14:00 70 158/99 10/28/17 13:45 74 155/96 10/28/17 13:30 74 152/92 2/17/18 13:15 74 141/86 10/28/17 13:00 82 148/84 10/28/17 12:45 77 140/92 10/28/17 12:37 83 152/99 10/28/17 12:33 36.6 86 148/89 (108) 10/28/17 07:35 36.7 92 17 159/100 (119) 93 Room Air 161/103 (122) 10/28/17 07:30 Room Air 10/27/17 23:30 36.7 96 16 145/85 (105) 91 Room Air 10/27/17 22:40 Room Air Lab Results: Results Past 24 Hours Test 10/28/17 05:11 10/28/17 09:24 Range/Units Sodium Level 135 136-145 mmol/L Potassium Level 4.0 3.5-5.1 mmol/L Chloride Level 108 98-107 mmol/L Carbon Dioxide Level 17 21-32 mmol/L Anion Gap 11.0 3-11 mmol/L Blood Urea Nitrogen 29 7-18 mg/dl Creatinine 6.29 0.60-1.20 mg/dl Est Creatinine Clear Calc Drug Dose 10.8 ml/min Estimated GFR () 8.4 Estimated GFR (Non- 7.2 BUN/Creatinine Ratio 4.6 10-20 Random Glucose 75 70-99 mg/dl Calcium Level 8.6 8.5-10.1 mg/dl Hepatitis B Surface Antigen NEG NEG Hepatitis B Surface Antibody POS
[2017-10-28] MEDS ORDERED: POLYETHYLENE (MIRALAX) 17 GM PACK PO ONE (17:00)
[2017-10-28] MEDS ORDERED: POLYETHYLENE (MIRALAX) 17 GM PACK PO PRN (17:00)
[2017-10-28] MEDS ORDERED: BISACODYL 10 MG SUPP PR ONE (17:00)
[2017-10-28] MEDS: CLONIDINE HCL 0.1 MG TAB PO PRN (18:44)
[2017-10-28] MEDS: TRAZODONE HCL 50 MG TAB PO SCH (21:17)
[2017-10-28] MEDS: DOCUSATE SODIUM/SENNA 50/8.6MG TAB PO SCH (21:18)
[2017-10-29] VITALS (8 sets, daily range): BP systolic 159–191; BP diastolic 88–105; PULSE 68–80; TEMP 36.7–36.8; O2SAT 91–96
[2017-10-29 05:35] LABS: HEMOGLOBIN 8.3 g/dL (12.0-16.0); MEAN CELL VOLUME 92.7 fL (80-100); MEAN CORPUSCULAR HEMOGLOBIN 33.5 pg (25-34); MEAN CORPUSCULAR HGB CONC 36.1 g/dl (32-36); MEAN PLATELET VOLUME 9.9 fL (7.4-10.4); PLATELET COUNT 225 K/uL (130-400); RED CELL DISTRIBUTION WIDTH CV 14.4 % (11.5-14.5); RED CELL DISTRIBUTION WIDTH SD 48.1 fL (36.4-46.3); WHITE BLOOD COUNT 9.39 K/uL (4.8-10.8)
[2017-10-29 06:27] LABS: CALCIUM 8.5 mg/dl (8.5-10.1); CREATININE 5.2 mg/dl (0.60-1.20); POTASSIUM 3.9 mmol/L (3.5-5.1)
[2017-10-29] MEDS: ALBUTEROL HFA 8 GM INHALER INH PRN ×3 (07:27→18:28)
[2017-10-29] MEDS: FLUTICASONE/SALMETEROL 100/50 (ADVAIR) 14 PUFF/1 INHALER INH SCH ×2 (07:39→20:25)
[2017-10-29] MEDS: HYDROCODONE/ACETAMIN 5/325MG TAB PO PRN ×2 (07:39→18:27)
[2017-10-29] MEDS: DOCUSATE SODIUM/SENNA 50/8.6MG TAB PO SCH ×2 (07:40→20:26)
[2017-10-29] MEDS: CLONIDINE HCL 0.1 MG TAB PO PRN ×3 (07:41→16:28)
[2017-10-29] MEDS: BuPROPion XL 300 MG TABCR PO SCH (07:42)
[2017-10-29] MEDS: FLUOXETINE HCL 20 MG CAP PO SCH (07:42)
[2017-10-29] MEDS: PREGABALIN 50 MG CAP PO SCH ×2 (07:44→20:24)
[2017-10-29] MEDS: LORAZEPAM 0.5 MG TAB PO PRN (10:09)
--- NOTE | 2017-10-29 16:01 | Progress Note ---
Internal Med Progress Note Date of Service: Oct 29, 2017. Provider Documentation: SUBJECTIVE: s/p temporary dialysis catheter in right IJ s/p 2nd dialysis today has some sob while ambulating no nausea afebrile OBJECTIVE: Vital Signs-as noted below Exam: General-alert and oriented. Not in distress ENT-normal hearing Neck-no neck masses Lungs-cta b/l no wheezing or crackles Heart-s1 and s2 heard regular rate and rhythm no murmurs Abdomen-soft bowel sounds present non tender no distension Extremities-trace pedal edema no erythema Neuro-alert and awake moves extremities Lab data as noted below. ASSESSMENT & PLAN: This is a 47 year old female with a PMH of mood disorder, fibromyalgia, asthma/ COPD, tobacco use disorder, recent lumbar surgery (decompression/fusion) - presents with pus draining from the surgical site. CARLOS- Mostly secondary to vancomycin. vanco trough 70 cr 5.2 today nephrology on board.Received fluids as per nephrology stopped fluids as patient feeling somewhat sob as Cr still rising s/p temporary dialysis catheter and dialysis was initiated on 10/28/17 had second dialysis today Post-operative Fluid collection: Likely Seroma and doubt any Infection fluid filled collection in the L4-S1 area -Lumbar CT already performed::1. 9 x 4 x 3.5 cm slightly hyperdense collection extending from L4 through S1 involving the subcutaneous fat exclusively.. ID on board Dr. High discussed with Dr Dykes who reviewed the film and thinks the collection likely to be seroma currently off of abx seems stable will monitor Constipation stool softeners Stable conditions: COPD/Asthma stable on home inhalers Mood Disorder To continue home medications very anxious now Fibromyalgia To continue home medications No acute issue DVT ppx SCDs, FULL CODE Disposition To be determined pt/ot Ortho Dr Obando #[phone] Vital Signs: Date Time Temp Pulse Resp B/P (MAP) Pulse Ox O2 Delivery O2 Flow Rate FiO2 10/29/17 15:27 36.8 71 18 168/98 (121) Room Air 92.0 10/29/17 12:04 68 166/97 (120) 94 10/29/17 10:13 80 191/92 (125) 96 10/29/17 07:35 36.8 80 18 162/94 (116) 92 10/29/17 07:30 Room Air 2/18/18 00:15 Room Air 10/28/17 23:20 37.0 77 16 158/87 (110) 90 Room Air 10/28/17 18:45 84 160/90 (113) 10/28/17 16:10 Room Air Lab Results: Results Past 24 Hours Test 10/29/17 05:11 Range/Units White Blood Count 9.39 4.8-10.8 K/uL Red Blood Count 2.48 4.2-5.4 M/uL Hemoglobin 8.3 12.0-16.0 g/dL Hematocrit 23.0 37-47 % Mean Corpuscular Volume 92.7 80-100 fL Mean Corpuscular Hemoglobin 33.5 25-34 pg Mean Corpuscular Hemoglobin Concent 36.1 32-36 g/dl RDW Standard Deviation 48.1 36.4-46.3 fL RDW Coefficient of Variation 14.4 11.5-14.5 % Platelet Count 225 130-400 K/uL Mean Platelet Volume 9.9 7.4-10.4 fL Sodium Level 134 136-145 mmol/L Potassium Level 3.9 3.5-5.1 mmol/L Chloride Level 104 98-107 mmol/L Carbon Dioxide Level 20 21-32 mmol/L Anion Gap 10.0 3-11 mmol/L Blood Urea Nitrogen 23 7-18 mg/dl Creatinine 5.20 0.60-1.20 mg/dl Est Creatinine Clear Calc Drug Dose 13.7 ml/min Estimated GFR () 10.5 Estimated GFR (Non- 9.1 BUN/Creatinine Ratio 4.3 10-20 Random Glucose 78 70-99 mg/dl Calcium Level 8.5 8.5-10.1 mg/dl
--- NOTE | 2017-10-29 18:21 | PROGRESS NOTE ---
DATE: 10/29/2017 SUBJECTIVE: The patient had her first dialysis yesterday. No major problem happened. We took about half kilo off. She also got IV Lasix one dose after the dialysis. Total urine was only 1050 mL. She is making urine today. OBJECTIVE: VITAL SIGNS: Shows a blood pressure which is slightly high at 168/89, 92% on room air, pulse rate 71, temperature 36.8. HEENT: Mucous membranes are moist. NECK: Supple. No jugular venous distention. CHEST: Bilateral occasional crackles. CARDIOVASCULAR: S1 and S2, regular. ABDOMEN: Soft, nontender. EXTREMITIES: Shows trace edema. LABORATORY TESTS: From this morning shows a hemoglobin of 8.3, WBC count 9.39, platelet count 225, BUN 23, creatinine 5.20. Sodium 134, potassium 3.9. ASSESSMENT AND PLAN: A 47-year-old female with acute renal failure, nonoliguric type in the setting of vancomycin toxicity. She is otherwise asymptomatic. I do not think we need to do a dialysis today. She is making urine. Electrolytes are acceptable and she is not in any respiratory distress nor has any uremic symptoms. Given her relatively young age, she can tolerate a much higher creatinine anyway. I expect her kidneys to eventually recover. No dialysis today. I did not write orders for tomorrow either. I want to see the labs in the morning as well as her clinical status before doing dialysis. DAIANA
--- NOTE | 2017-10-29 19:56 | Progress Note ---
Internal Med Progress Note Date of Service: Oct 29, 2017. Provider Documentation: Made aware by RN of uncontrolled BP the last 48 hours SBP 140-180s AP Hypertensive urgency Likely long-standing w/cardiac enlargement on chest x-ray, LAE on EKG Initiate Norvasc. Vital Signs: Date Time Temp Pulse Resp B/P (MAP) Pulse Ox O2 Delivery O2 Flow Rate FiO2 10/30/17 07:38 36.5 76 19 157/87 (110) 92 Room Air 10/30/17 07:20 Room Air 10/30/17 00:00 Room Air 10/29/17 23:35 36.7 71 16 159/88 (111) 91 Room Air 10/29/17 19:21 170/105 (126) 10/29/17 15:55 94 Room Air 10/29/17 15:50 168/89 (115) 10/29/17 15:27 36.8 71 18 168/98 (121) Room Air 92.0 10/29/17 12:04 68 166/97 (120) 94 10/29/17 10:13 80 191/92 (125) 96 Lab Results: Results Past 24 Hours Test 10/30/17 05:39 Range/Units Sodium Level 133 136-145 mmol/L Potassium Level 4.2 3.5-5.1 mmol/L Chloride Level 103 98-107 mmol/L Carbon Dioxide Level 20 21-32 mmol/L Anion Gap 10.0 3-11 mmol/L Blood Urea Nitrogen 29 7-18 mg/dl Creatinine 5.68 0.60-1.20 mg/dl Est Creatinine Clear Calc Drug Dose 12.5 ml/min Estimated GFR () 9.4 Estimated GFR (Non- 8.2 BUN/Creatinine Ratio 5.0 10-20 Random Glucose 83 70-99 mg/dl Calcium Level 8.6 8.5-10.1 mg/dl
[2017-10-29] MEDS: TRAZODONE HCL 50 MG TAB PO SCH (20:24)
[2017-10-29] MEDS ORDERED: AMLODIPINE BESYLATE 5 MG TAB PO ONE (20:30)
[2017-10-30] VITALS (18 sets, daily range): BP systolic 125–176; BP diastolic 73–105; PULSE 71–89; TEMP 36.5–37.2; O2SAT 91–94
[2017-10-30 06:48] LABS: CALCIUM 8.6 mg/dl (8.5-10.1); CREATININE 5.68 mg/dl (0.60-1.20); POTASSIUM 4.2 mmol/L (3.5-5.1)
--- NOTE | 2017-10-30 08:31 | Nephrology Progress Note ---
Nephrology Progress Note Date of Service: Oct 30, 2017. Subjective was up 4X overnight to void - (i/o inaccurate). c/o sob and swelling; taking po w/o N. quite (understandably) anxious. no pain. Objective Date Time Temp Pulse Resp B/P (MAP) Pulse Ox O2 Delivery O2 Flow Rate FiO2 10/30/17 00:00 Room Air 10/29/17 23:35 36.7 71 16 159/88 (111) 91 Room Air 10/29/17 19:21 170/105 (126) 10/29/17 15:55 94 Room Air 10/29/17 15:50 168/89 (115) 10/29/17 15:27 36.8 71 18 168/98 (121) Room Air 92.0 10/29/17 12:04 68 166/97 (120) 94 10/29/17 10:13 80 191/92 (125) 96 10/29/17 07:35 36.8 80 18 162/94 (116) 92 10/29/17 07:30 Room Air Physical Exam: General-aaox3, on ra, maneuvers readily for exam Eyes-no scleral icterus ENT-mmm Neck-supple Lungs-cta but diminished bl bases Heart-rrr Abdomen-bs+ s/nt/nd Extremities-no c/c/e Neuro-coyle, fluent speech, anxious Back-bandaged Current Inpatient Medications Medications (Trade) Dose Ordered Sig/Kimmie Route Start Time Stop Time Status Last Admin Dose Admin Lorazepam (Ativan Tab) 0.5 mg BID PRN PO 10/22/17 18:30 11/21/17 18:29 10/29/17 10:09 0.5 MG Acetaminophen (Tylenol Tab) 650 mg Q4H PRN PO 10/22/17 18:45 11/21/17 18:44 Fluoxetine HCl (Prozac Cap) 60 mg DAILY PO 10/23/17 09:00 11/22/17 08:59 10/29/17 07:42 60 MG Trazodone HCl (Desyrel Tab) 50 mg HS PO 10/22/17 21:00 11/22/17 08:59 10/29/17 20:24 50 MG Bupropion HCl (Wellbutrin-Xl Tab) 300 mg QAM PO 10/23/17 09:00 11/22/17 08:59 10/29/17 07:42 300 MG Salmeterol Xinafoate/ Fluticasone (Advair Diskus 100/50 Inh) 1 puff BID INH 10/22/17 21:00 11/21/17 20:59 10/29/17 20:25 1 PUFF Pregabalin (Lyrica Cap) 50 mg BID PO 10/22/17 21:00 11/21/17 20:59 10/29/17 20:24 50 MG Ondansetron HCl (Zofran Inj) 4 mg Q8H PRN IV 10/22/17 22:30 11/21/17 22:29 Acetaminophen/ Hydrocodone Bitart (Comfort 5/325 Tab) 2 tab Q4H PRN PO 10/23/17 09:30 11/06/17 09:29 10/29/17 18:27 2 TAB Al Hydrox/Mg Hydrox/Simethicone (Maalox Max Susp) 15 ml Q6H PRN PO 10/23/17 09:30 11/22/17 09:29 10/23/17 09:47 15 ML Albuterol (Ventolin Hfa Inhaler) 2 puffs Q4 PRN INH 10/27/17 14:45 11/26/17 14:44 10/29/17 18:28 2 PUFFS Senna/Docusate Sodium (Senokot S Tab) 1 tab BID PO 10/28/17 21:00 11/27/17 20:59 10/29/17 20:26 1 TAB Polyethylene (Miralax Powder Packet) 17 gm DAILY PRN PO 10/28/17 17:00 11/27/17 16:59 Clonidine HCl (Catapres Tab) 0.1 mg Q4 PRN PO 10/28/17 18:00 11/27/17 17:59 10/29/17 16:28 0.1 MG Amlodipine Besylate (Norvasc Tab) 2.5 mg HS PO 10/30/17 21:00 11/29/17 20:59 Last 24 Hours Test 10/30/17 05:39 Sodium Level 133 mmol/L Potassium Level 4.2 mmol/L Chloride Level 103 mmol/L Carbon Dioxide Level 20 mmol/L Anion Gap 10.0 mmol/L Blood Urea Nitrogen 29 mg/dl Creatinine 5.68 mg/dl Est Creatinine Clear Calc Drug Dose 12.5 ml/min Estimated GFR () 9.4 Estimated GFR (Non- 8.2 BUN/Creatinine Ratio 5.0 Random Glucose 83 mg/dl Calcium Level 8.6 mg/dl Assessment & Plan 47 yo female with nonoliguric jerilyn in the setting of vancomycin nephrotoxicity; did have one dialysis treatment on 10/28. creatinine peaked at 6.3 on 10/28, down to 5.2 next day, back to 5.7 today. Has R IJ temp cath. -did have dose of lasix 10/28 about 1800 -marked HTN w/ sbp >150 pretty much consistently and new for her since 10/28 >> on amlodipine, clonidine for BP w/ HR >70s >>>>jump / climb in creatinine is expected (yesterday looked artificially good after HD) -hd today goal 500-750 mL fluid removal and possibly another tx tomorrow; heparin bolus only/ no maintenance; 3 k bath >>add hydralazine 10 mg tid to start after HD >>strict I/O >>monitor for need for further dialysis but will focus for today on bp control and
[2017-10-30] MEDS: BuPROPion XL 300 MG TABCR PO SCH (08:41)
[2017-10-30] MEDS: FLUOXETINE HCL 20 MG CAP PO SCH (08:41)
[2017-10-30] MEDS: FLUTICASONE/SALMETEROL 100/50 (ADVAIR) 14 PUFF/1 INHALER INH SCH ×2 (08:41→21:30)
[2017-10-30] MEDS: DOCUSATE SODIUM/SENNA 50/8.6MG TAB PO SCH ×2 (08:42→21:31)
[2017-10-30] MEDS: LORAZEPAM 0.5 MG TAB PO PRN (08:45)
[2017-10-30] MEDS: PREGABALIN 50 MG CAP PO SCH ×2 (08:45→21:30)
[2017-10-30] MEDS ORDERED: HEPARIN SOD (PORCINE) 1000 UNIT/ML 10 ML VIAL IV SCH (09:00)
--- NOTE | 2017-10-30 10:48 | Progress Note ---
Subjective Date of Service: Oct 30, 2017. Subjective pt with HD over weekend x 1. creat overall improved but somewhat increased this am. no f/c. blood cultures negative and final. wbc nml. has been off of abx. Problem List Medical Problems: (1) Lingular pneumonia Status: Acute (2) Postoperative infection Status: Acute Objective Vital Signs Date Time Temp Pulse Resp B/P (MAP) Pulse Ox O2 Delivery O2 Flow Rate FiO2 10/30/17 07:38 36.5 76 19 157/87 (110) 92 Room Air 10/30/17 07:20 Room Air 10/30/17 00:00 Room Air 10/29/17 23:35 36.7 71 16 159/88 (111) 91 Room Air 10/29/17 19:21 170/105 (126) 10/29/17 15:55 94 Room Air 10/29/17 15:50 168/89 (115) 10/29/17 15:27 36.8 71 18 168/98 (121) Room Air 92.0 10/29/17 12:04 68 166/97 (120) 94 Laboratory Results Item Value Date Time Blood Culture - Final Complete 10/22/17 1420 Blood NO GROWTH Blood Culture - Final Complete 10/22/17 1410 Blood NO GROWTH Last 24 Hours Test 10/30/17 05:39 Sodium Level 133 mmol/L Potassium Level 4.2 mmol/L Chloride Level 103 mmol/L Carbon Dioxide Level 20 mmol/L Anion Gap 10.0 mmol/L Blood Urea Nitrogen 29 mg/dl Creatinine 5.68 mg/dl Est Creatinine Clear Calc Drug Dose 12.5 ml/min Estimated GFR () 9.4 Estimated GFR (Non- 8.2 BUN/Creatinine Ratio 5.0 Random Glucose 83 mg/dl Calcium Level 8.6 mg/dl Assessment and Plan (1) Postoperative infection Assessment & Plan: Radiology is reading her fluid collection as seroma. She states that drainage has decreased. Her wound is stable not worsening off of antibiotics she is afebrile and hemodynamically stable. She is currently off of all antibiotics due to Vanco toxicity. Her Vanco level is improved however her creatinine is somewhat worse. She will continue to be monitored closely. At this time she states she would like to remain off of dialysis if at all possible and continue pushing fluid intake. Did have a long discussion yesterday with the patient regarding the results of her blood culture as well as a result of her wound culture. Her Gram stain was negative and she is only growing rare coagulase-negative staph which I feel this skin raimundo as this was a culture done at the bedside certainly could be colonized with skin raimundo. We did discuss treatment with antibiotics just in case on this did show a pathogen and infected fluid however as the patient is afebrile and clinically stable off of antibiotics she would like to remain off antibiotics for the next several days and monitor her symptoms. Should she have any worsening back pain increased drainage fevers or leukocytosis she will be started on antibiotics to treat the coagulase-negative Staph. We did discuss options that would not be cleared to the kidneys and would not any added risk to her renal improvement however she would like to remain off of antibiotics at this time.
[2017-10-30] MEDS: CLONIDINE HCL 0.1 MG TAB PO PRN (14:10)
[2017-10-30] MEDS: HYDROCODONE/ACETAMIN 5/325MG TAB PO PRN (14:11)
[2017-10-30] MEDS: HydrALAZINE 10 MG TAB PO SCH ×2 (16:00→21:34)
[2017-10-30] MEDS ORDERED: LACTULOSE SYRUP 30 GM/45 ML UDP PO ONE (16:15)
--- NOTE | 2017-10-30 17:23 | Progress Note ---
Internal Med Progress Note Date of Service: Oct 30, 2017. Provider Documentation: SUBJECTIVE: s/p temporary dialysis catheter in right IJ s/p 2nd dialysis today denies chest pain afebrile had small bowel movement yesterday making urine ok OBJECTIVE: Vital Signs-as noted below Exam: General-alert and oriented. Not in distress ENT-normal hearing Neck-no neck masses Lungs-cta b/l no wheezing or crackles Heart-s1 and s2 heard regular rate and rhythm no murmurs Abdomen-soft bowel sounds present non tender no distension Extremities-trace pedal edema no erythema Neuro-alert and awake moves extremities Lab data as noted below. ASSESSMENT & PLAN: This is a 47 year old female with a PMH of mood disorder, fibromyalgia, asthma/ COPD, tobacco use disorder, recent lumbar surgery (decompression/fusion) - presents with pus draining from the surgical site. CARLOS- Mostly secondary to vancomycin. vanco trough 70 cr 5.6 today nephrology on board.Received fluids as per nephrology stopped fluids as patient feeling somewhat sob as Cr still rising s/p temporary dialysis catheter and dialysis was initiated on 10/28/17 had second dialysis today f/u labs duration of dialysis as per nephrology Post-operative Fluid collection: Likely Seroma and doubt any Infection fluid filled collection in the L4-S1 area -Lumbar CT already performed::1. 9 x 4 x 3.5 cm slightly hyperdense collection extending from L4 through S1 involving the subcutaneous fat exclusively.. ID on board Dr. High discussed with Dr Dykes who reviewed the film and thinks the collection likely to be seroma currently off of abx seems stable will monitor Constipation stool softeners Stable conditions: COPD/Asthma stable on home inhalers Mood Disorder To continue home medications very anxious now Fibromyalgia To continue home medications No acute issue DVT ppx SCDs, FULL CODE Disposition To be determined pt/ot Ortho Dr Obando #[phone] Vital Signs: Date Time Temp Pulse Resp B/P (MAP) Pulse Ox O2 Delivery O2 Flow Rate FiO2 10/30/17 15:06 36.9 85 16 125/78 (94) 93 Room Air 10/30/17 13:42 36.9 79 18 166/92 (116) 94 Room Air 10/30/17 13:25 36.9 80 157/96 (116) 10/30/17 13:00 79 129/76 10/30/17 12:45 74 150/73 10/30/17 12:30 75 162/85 10/30/17 12:15 74 168/88 10/30/17 12:00 86 164/84 10/30/17 11:45 89 162/85 10/30/17 11:30 72 174/93 10/30/17 11:15 80 139/77 10/30/17 11:00 76 153/92 10/30/17 10:45 72 167/94 10/30/17 10:37 72 176/99 10/30/17 10:30 37.2 75 175/99 (124) 10/30/17 07:38 36.5 76 19 157/87 (110) 92 Room Air 10/30/17 07:20 Room Air 10/30/17 00:00 Room Air 10/29/17 23:35 36.7 71 16 159/88 (111) 91 Room Air 10/29/17 19:21 170/105 (126) Lab Results: Results Past 24 Hours Test 10/30/17 05:39 Range/Units Sodium Level 133 136-145 mmol/L Potassium Level 4.2 3.5-5.1 mmol/L Chloride Level 103 98-107 mmol/L Carbon Dioxide Level 20 21-32 mmol/L Anion Gap 10.0 3-11 mmol/L Blood Urea Nitrogen 29 7-18 mg/dl Creatinine 5.68 0.60-1.20 mg/dl Est Creatinine Clear Calc Drug Dose 12.5 ml/min Estimated GFR () 9.4 Estimated GFR (Non- 8.2 BUN/Creatinine Ratio 5.0 10-20 Random Glucose 83 70-99 mg/dl Calcium Level 8.6 8.5-10.1 mg/dl
[2017-10-30] MEDS: OXYCODONE/ACETAMINOPHEN 5-325 TAB PO PRN (18:59)
[2017-10-30] MEDS: ALUMINUM/MAGNESIUM/SIMETH (MAALOX MAX) 30 ML UDC PO PRN (20:25)
[2017-10-30] MEDS ORDERED: AMLODIPINE BESYLATE 5 MG TAB PO SCH (21:00)
[2017-10-30] MEDS: TRAZODONE HCL 50 MG TAB PO SCH (21:34)
[2017-10-31] VITALS (7 sets, daily range): BP systolic 108–180; BP diastolic 65–105; PULSE 62–82; TEMP 36.6–36.8; O2SAT 91–97
[2017-10-31] MEDS: OXYCODONE/ACETAMINOPHEN 5-325 TAB PO PRN ×3 (05:17→17:54)
[2017-10-31] MEDS: CLONIDINE HCL 0.1 MG TAB PO PRN ×2 (07:33→15:53)
[2017-10-31 07:43] LABS: CALCIUM 8.7 mg/dl (8.5-10.1); CREATININE 4.59 mg/dl (0.60-1.20); POTASSIUM 4.4 mmol/L (3.5-5.1)
[2017-10-31] MEDS: FLUTICASONE/SALMETEROL 100/50 (ADVAIR) 14 PUFF/1 INHALER INH SCH ×2 (08:54→21:47)
[2017-10-31] MEDS: HydrALAZINE 10 MG TAB PO SCH ×3 (08:54→21:48)
[2017-10-31] MEDS: BuPROPion XL 300 MG TABCR PO SCH (08:55)
[2017-10-31] MEDS: FLUOXETINE HCL 20 MG CAP PO SCH (08:55)
[2017-10-31] MEDS: DOCUSATE SODIUM/SENNA 50/8.6MG TAB PO SCH ×2 (08:55→21:50)
[2017-10-31] MEDS: LORAZEPAM 0.5 MG TAB PO PRN (08:58)
[2017-10-31] MEDS: PREGABALIN 50 MG CAP PO SCH ×2 (08:58→21:47)
[2017-10-31] MEDS: ALUMINUM/MAGNESIUM/SIMETH (MAALOX MAX) 30 ML UDC PO PRN (09:34)
[2017-10-31] MEDS ORDERED: AMLODIPINE BESYLATE 5 MG TAB PO ONE ×2 (09:40→13:00)
[2017-10-31] MEDS ORDERED: NURSING VERBAL MED ORDER ONE (10:00)
--- NOTE | 2017-10-31 10:10 | Nephrology Progress Note ---
Nephrology Progress Note Date of Service: Oct 31, 2017. Subjective >1.2 L UOP. less sob ongoing swelling; taking po w/o N. no pain. remains anxious. bp high. 1L uf at hd yesterday Objective Date Time Temp Pulse Resp B/P (MAP) Pulse Ox O2 Delivery O2 Flow Rate FiO2 10/31/17 09:30 80 142/87 (105) 10/31/17 07:40 Room Air 10/31/17 07:04 36.7 80 16 168/89 (115) 91 Room Air 10/30/17 23:15 Room Air 10/30/17 22:47 36.5 73 15 156/87 (110) 91 Room Air 10/30/17 21:36 71 164/105 (124) 10/30/17 15:50 Room Air 10/30/17 15:06 36.9 85 16 125/78 (94) 93 Room Air 10/30/17 13:42 36.9 79 18 166/92 (116) 94 Room Air 10/30/17 13:25 36.9 80 157/96 (116) 10/30/17 13:00 79 129/76 10/30/17 12:45 74 150/73 10/30/17 12:30 75 162/85 10/30/17 12:15 74 168/88 10/30/17 12:00 86 164/84 10/30/17 11:45 89 162/85 10/30/17 11:30 72 174/93 10/30/17 11:15 80 139/77 10/30/17 11:00 76 153/92 10/30/17 10:45 72 167/94 10/30/17 10:37 72 176/99 10/30/17 10:30 37.2 75 175/99 (124) Physical Exam: General-aaox3, on ra, maneuvers readily for exam Eyes-no scleral icterus ENT-mmm Neck-supple Lungs-cta but diminished bl bases Heart-rrr Abdomen-bs+ s/nt/nd Extremities-no c/c/e Neuro-coyle, fluent speech, anxious/tearful Back-bandaged Current Inpatient Medications Medications (Trade) Dose Ordered Sig/Kimmie Route Start Time Stop Time Status Last Admin Dose Admin Lorazepam (Ativan Tab) 0.5 mg BID PRN PO 10/22/17 18:30 3/13/18 18:29 10/31/17 08:58 0.5 MG Acetaminophen (Tylenol Tab) 650 mg Q4H PRN PO 10/22/17 18:45 11/21/17 18:44 Fluoxetine HCl (Prozac Cap) 60 mg DAILY PO 10/23/17 09:00 11/22/17 08:59 10/31/17 08:55 60 MG Trazodone HCl (Desyrel Tab) 50 mg HS PO 10/22/17 21:00 11/22/17 08:59 10/30/17 21:34 50 MG Bupropion HCl (Wellbutrin-Xl Tab) 300 mg QAM PO 10/23/17 09:00 11/22/17 08:59 10/31/17 08:55 300 MG Salmeterol Xinafoate/ Fluticasone (Advair Diskus 100/50 Inh) 1 puff BID INH 10/22/17 21:00 11/21/17 20:59 10/31/17 08:54 1 PUFF Pregabalin (Lyrica Cap) 50 mg BID PO 10/22/17 21:00 11/21/17 20:59 10/31/17 08:58 50 MG Ondansetron HCl (Zofran Inj) 4 mg Q8H PRN IV 10/22/17 22:30 11/21/17 22:29 Al Hydrox/Mg Hydrox/Simethicone (Maalox Max Susp) 15 ml Q6H PRN PO 10/23/17 09:30 11/22/17 09:29 10/31/17 09:34 15 ML Albuterol (Ventolin Hfa Inhaler) 2 puffs Q4 PRN INH 10/27/17 14:45 11/26/17 14:44 10/29/17 18:28 2 PUFFS Senna/Docusate Sodium (Senokot S Tab) 1 tab BID PO 10/28/17 21:00 11/27/17 20:59 10/31/17 08:55 1 TAB Polyethylene (Miralax Powder Packet) 17 gm DAILY PRN PO 10/28/17 17:00 11/27/17 16:59 Clonidine HCl (Catapres Tab) 0.1 mg Q4 PRN PO 2/17/18 18:00 11/27/17 17:59 10/31/17 07:33 0.1 MG Hydralazine HCl (Apresoline Tab) 10 mg TID PO 10/30/17 16:00 11/29/17 15:59 10/31/17 08:54 10 MG Oxycodone/ Acetaminophen (Percocet 5-325mg Tab) 2 tab Q4H PRN PO 10/30/17 18:15 11/13/17 18:14 10/31/17 05:17 2 TAB Amlodipine Besylate (Norvasc Tab) 7.5 mg HS PO 10/31/17 21:00 11/29/17 20:59 Miscellaneous Information (Nursing Verbal Med Order) 1 ea ONE ONCE N/A 10/31/17 10:00 10/31/17 10:01 UNV Last 24 Hours Test 10/31/17 06:14 Sodium Level 132 mmol/L Potassium Level 4.4 mmol/L Chloride Level 100 mmol/L Carbon Dioxide Level 24 mmol/L Anion Gap 8.0 mmol/L Blood Urea Nitrogen 21 mg/dl Creatinine 4.59 mg/dl Est Creatinine Clear Calc Drug Dose 15.4 ml/min Estimated GFR () 12.2 Estimated GFR (Non- 10.5 BUN/Creatinine Ratio 4.4 Random Glucose 78 mg/dl Calcium Level 8.7 mg/dl Assessment & Plan 47 yo female with nonoliguric jerilyn in the setting of vancomycin nephrotoxicity; did have one dialysis treatment on 10/28. creatinine peaked at 6.3 on 10/28, down to 5.2 next day, back to 5.7 today. Has R IJ temp cath. -did have dose of lasix 10/28 about 1800 -marked HTN w/ sbp >150 pretty much consistently and new for her since 10/28 >> on amlodipine, clonidine for BP w/ HR >70s >>>>creat looks artificially good after HD; chemistries acceptable -reassess in am for need for further HD >>cont hydralazine 10 mg tid >increased amlodipine to 7.5 mg daily; will add 5 mg dose midday today only as well; nursing inquiries about hold parameters appreciated >>cont strict I/O >>monitor for need for further dialysis but will focus for today on bp control
--- NOTE | 2017-10-31 17:37 | Progress Note ---
Internal Med Progress Note Date of Service: Oct 31, 2017. Provider Documentation: SUBJECTIVE: s/p temporary dialysis catheter in right IJ had dialysis yesterday had lower abdominal pain but gone away now no sob or chest pain afebrile moved bowels OBJECTIVE: Vital Signs-as noted below Exam: General-alert and oriented. Not in distress ENT-normal hearing Neck-no neck masses Lungs-cta b/l no wheezing or crackles Heart-s1 and s2 heard regular rate and rhythm no murmurs Abdomen-soft bowel sounds present non tender no distension Extremities-trace pedal edema no erythema Neuro-alert and awake moves extremities Lab data as noted below. ASSESSMENT & PLAN: This is a 47 year old female with a PMH of mood disorder, fibromyalgia, asthma/ COPD, tobacco use disorder, recent lumbar surgery (decompression/fusion) - presents with pus draining from the surgical site. CARLOS- Mostly secondary to vancomycin. vanco trough 70 cr peaked to 6.2 cr 4.5 today nephrology on board.Received fluids as per nephrology stopped fluids as patient feeling somewhat sob as Cr still rising s/p temporary dialysis catheter and dialysis was initiated on 10/28/17 had second dialysis yesterday f/u labs duration of dialysis as per nephrology Post-operative Fluid collection: Likely Seroma and doubt any Infection fluid filled collection in the L4-S1 area -Lumbar CT already performed::1. 9 x 4 x 3.5 cm slightly hyperdense collection extending from L4 through S1 involving the subcutaneous fat exclusively.. ID on board Dr. High discussed with Dr Dykes who reviewed the film and thinks the collection likely to be seroma currently off of abx seems stable will monitor Constipation stool softeners Stable conditions: COPD/Asthma stable on home inhalers Mood Disorder To continue home medications very anxious now Fibromyalgia To continue home medications No acute issue DVT ppx SCDs, FULL CODE Disposition To be determined pt/ot social service for d/c planning Ortho Dr Obando #[phone] Vital Signs: Date Time Temp Pulse Resp B/P (MAP) Pulse Ox O2 Delivery O2 Flow Rate FiO2 10/31/17 15:27 36.8 73 16 163/96 (118) 91 Room Air 10/31/17 09:30 80 142/87 (105) 10/31/17 07:40 Room Air 10/31/17 07:04 36.7 80 16 168/89 (115) 91 Room Air 10/30/17 23:15 Room Air 10/30/17 22:47 36.5 73 15 156/87 (110) 91 Room Air 10/30/17 21:36 71 164/105 (124) Lab Results: Results Past 24 Hours Test 10/31/17 06:14 Range/Units Sodium Level 132 136-145 mmol/L Potassium Level 4.4 3.5-5.1 mmol/L Chloride Level 100 98-107 mmol/L Carbon Dioxide Level 24 21-32 mmol/L Anion Gap 8.0 3-11 mmol/L Blood Urea Nitrogen 21 7-18 mg/dl Creatinine 4.59 0.60-1.20 mg/dl Est Creatinine Clear Calc Drug Dose 15.4 ml/min Estimated GFR () 12.2 Estimated GFR (Non- 10.5 BUN/Creatinine Ratio 4.4 10-20 Random Glucose 78 70-99 mg/dl Calcium Level 8.7 8.5-10.1 mg/dl
[2017-10-31] MEDS: TRAZODONE HCL 50 MG TAB PO SCH (21:48)
[2017-10-31] MEDS: AMLODIPINE BESYLATE 5 MG TAB PO SCH (21:49)
[2017-11-01] VITALS (23 sets, daily range): BP systolic 126–177; BP diastolic 62–97; PULSE 75–95; TEMP 36.5–37.8; O2SAT 87–96
[2017-11-01] MEDS: ALBUTEROL HFA 8 GM INHALER INH PRN ×2 (04:01→18:53)
[2017-11-01] MEDS: CLONIDINE HCL 0.1 MG TAB PO PRN (04:08)
[2017-11-01 07:45] LABS: CREATININE 5.3 mg/dl (0.60-1.20); POTASSIUM 4.8 mmol/L (3.5-5.1)
[2017-11-01 08:11] LABS: BASO % 0.6 %; BASO ABS # 0.05 K/uL (0-0.2); EOS % 2.2 %; EOS ABS # 0.19 K/uL (0-0.5); HEMATOCRIT 22.7 % (37-47); IG# 0.02 K/uL (0.00-0.02); LYMPH % 12.1 %; LYMPH ABS # 1.03 K/uL (1.2-3.4); MEAN CELL VOLUME 94.6 fL (80-100); MEAN CORPUSCULAR HEMOGLOBIN 33.3 pg (25-34); MEAN CORPUSCULAR HGB CONC 35.2 g/dl (32-36); MEAN PLATELET VOLUME 10.6 fL (7.4-10.4); MONO % 13.8 %; MONO ABS # 1.17 K/uL (0.11-0.59); NEUT % 71.1 %; NEUT ABS # 6.02 K/uL (1.4-6.5); PLATELET COUNT 218 K/uL (130-400); RED CELL DISTRIBUTION WIDTH CV 14.1 % (11.5-14.5); WHITE BLOOD COUNT 8.48 K/uL (4.8-10.8)
--- NOTE | 2017-11-01 08:35 | DIAGNOSTIC IMAGING REPORT ---
CHEST ONE VIEW PORTABLE CLINICAL HISTORY: hypoxia on room air dyspnea COMPARISON STUDY: 10/28/2017 FINDINGS: Findings of mildly progressive components of congestive failure. Small bilateral pleural effusions. Central catheter remains in superior vena cava. IMPRESSION: Progressive radiographic findings of congestive failure. Small bilateral pleural effusions. The above report was generated using voice recognition software. It may contain grammatical, syntax or spelling errors. Electronically signed by: Jason Harris M.D. 11/01/2017 8:33 AM Dictated Date/Time: 11/01/2017 8:33 AM
[2017-11-01] MEDS: HydrALAZINE 10 MG TAB PO SCH ×3 (09:00→20:33)
[2017-11-01] MEDS: FLUOXETINE HCL 20 MG CAP PO SCH (09:31)
[2017-11-01] MEDS: DOCUSATE SODIUM/SENNA 50/8.6MG TAB PO SCH ×2 (09:31→20:37)
[2017-11-01] MEDS: PREGABALIN 50 MG CAP PO SCH ×2 (09:31→20:33)
[2017-11-01] MEDS: FLUTICASONE/SALMETEROL 100/50 (ADVAIR) 14 PUFF/1 INHALER INH SCH ×2 (09:31→18:52)
[2017-11-01] MEDS: BuPROPion XL 300 MG TABCR PO SCH (09:31)
[2017-11-01] MEDS ORDERED: HEPARIN SOD (PORCINE) 1000 UNIT/ML 10 ML VIAL IV SCH (09:45)
[2017-11-01] MEDS: OXYCODONE/ACETAMINOPHEN 5-325 TAB PO PRN ×3 (10:38→18:55)
[2017-11-01] MEDS: HEPARIN SOD (PORCINE) 1000 UNIT/ML 10 ML VIAL IV SCH ×3 (11:15→12:15)
--- NOTE | 2017-11-01 12:26 | Dialysis Progress Note ---
Nephrology Dialysis Note Date of Service: Nov 01, 2017. Subjective 1.4 L UOP. had dyspnea acutely ON > XR w/ early congestive findings; on 02NC 2L ; feels breathing better; notes ongoing ascites. ongoing swelling. tearful, frustrated. Objective Date Time Temp Pulse Resp B/P (MAP) Pulse Ox O2 Delivery O2 Flow Rate FiO2 11/01/17 10:30 78 139/87 11/01/17 10:16 75 153/88 11/01/17 10:08 37.3 76 146/88 (107) 11/01/17 09:29 79 16 152/88 (109) 96 Nasal Cannula 2.0 11/01/17 07:55 Nasal Cannula 2.0 11/01/17 07:48 92 Oxymask 2.0 11/01/17 07:24 36.7 82 16 159/89 (112) 89 Room Air 11/01/17 04:40 37.4 91 16 157/90 (112) 93 Oxymask 3.5 11/01/17 03:45 37.8 95 20 177/94 (121) 87 Room Air 11/01/17 00:00 Room Air 10/31/17 23:35 36.7 82 18 155/97 (116) 94 Oxymask 2.0 10/31/17 22:46 73 168/91 (116) 10/31/17 21:46 71 179/105 (129) 10/31/17 21:45 72 180/100 (126) 10/31/17 15:55 Room Air 10/31/17 15:27 36.8 73 16 163/96 (118) 91 Room Air Physical Exam: General-aaox3, on , maneuvers readily for exam Eyes-no scleral icterus ENT-mmm Neck-supple Lungs-cta but diminished bl bases Heart-rrr Abdomen-bs+ s/nt/nd Extremities-no c/c/e Neuro-coyle, fluent speech, anxious/tearful Back-bandaged Current Inpatient Medications Medications (Trade) Dose Ordered Sig/Kimmie Route Start Time Stop Time Status Last Admin Dose Admin Lorazepam (Ativan Tab) 0.5 mg BID PRN PO 10/22/17 18:30 11/21/17 18:29 10/31/17 08:58 0.5 MG Acetaminophen (Tylenol Tab) 650 mg Q4H PRN PO 10/22/17 18:45 11/21/17 18:44 Fluoxetine HCl (Prozac Cap) 60 mg DAILY PO 10/23/17 09:00 11/22/17 08:59 11/01/17 09:31 60 MG Trazodone HCl (Desyrel Tab) 50 mg HS PO 10/22/17 21:00 11/22/17 08:59 10/31/17 21:48 50 MG Bupropion HCl (Wellbutrin-Xl Tab) 300 mg QAM PO 10/23/17 09:00 11/22/17 08:59 11/01/17 09:31 300 MG Salmeterol Xinafoate/ Fluticasone (Advair Diskus 100/50 Inh) 1 puff BID INH 10/22/17 21:00 11/21/17 20:59 11/01/17 09:31 1 PUFF Pregabalin (Lyrica Cap) 50 mg BID PO 10/22/17 21:00 11/21/17 20:59 11/01/17 09:31 50 MG Ondansetron HCl (Zofran Inj) 4 mg Q8H PRN IV 10/22/17 22:30 11/21/17 22:29 Al Hydrox/Mg Hydrox/Simethicone (Maalox Max Susp) 15 ml Q6H PRN PO 10/23/17 09:30 11/22/17 09:29 10/31/17 09:34 15 ML Albuterol (Ventolin Hfa Inhaler) 2 puffs Q4 PRN INH 10/27/17 14:45 11/26/17 14:44 11/01/17 04:01 2 PUFFS Senna/Docusate Sodium (Senokot S Tab) 1 tab BID PO 10/28/17 21:00 11/27/17 20:59 11/01/17 09:31 1 TAB Polyethylene (Miralax Powder Packet) 17 gm DAILY PRN PO 10/28/17 17:00 11/27/17 16:59 Clonidine HCl (Catapres Tab) 0.1 mg Q4 PRN PO 10/28/17 18:00 11/27/17 17:59 11/01/17 04:08 0.1 MG Hydralazine HCl (Apresoline Tab) 10 mg TID PO 10/30/17 16:00 11/29/17 15:59 10/31/17 21:48 10 MG Oxycodone/ Acetaminophen (Percocet 5-325mg Tab) 2 tab Q4H PRN PO 10/30/17 18:15 11/13/17 18:14 11/01/17 10:38 2 TAB Amlodipine Besylate (Norvasc Tab) 7.5 mg HS PO 10/31/17 21:00 11/29/17 20:59 10/31/17 21:49 7.5 MG Last 24 Hours Test 11/01/17 06:20 White Blood Count 8.48 K/uL Red Blood Count 2.40 M/uL Hemoglobin 8.0 g/dL Hematocrit 22.7 % Mean Corpuscular Volume 94.6 fL Mean Corpuscular Hemoglobin 33.3 pg Mean Corpuscular Hemoglobin Concent 35.2 g/dl Platelet Count 218 K/uL Mean Platelet Volume 10.6 fL Neutrophils (%) (Auto) 71.1 % Lymphocytes (%) (Auto) 12.1 % Monocytes (%) (Auto) 13.8 % Eosinophils (%) (Auto) 2.2 % Basophils (%) (Auto) 0.6 % Neutrophils # (Auto) 6.02 K/uL Lymphocytes # (Auto) 1.03 K/uL Monocytes # (Auto) 1.17 K/uL Eosinophils # (Auto) 0.19 K/uL Basophils # (Auto) 0.05 K/uL RDW Standard Deviation 49.0 fL RDW Coefficient of Variation 14.1 % Immature Granulocyte % (Auto) 0.2 % Immature Granulocyte # (Auto) 0.02 K/uL Red Blood Cell Morphology Unremarkable Sodium Level 131 mmol/L Potassium Level 4.8 mmol/L Chloride Level 99 mmol/L Carbon Dioxide Level 22 mmol/L Anion Gap 10.0 mmol/L Blood Urea Nitrogen 27 mg/dl Creatinine 5.30 mg/dl Est Creatinine Clear Calc Drug Dose 13.3 ml/min Estimated GFR () 10.3 Estimated GFR (Non- 8.9 BUN/Creatinine Ratio 5.2 Random Glucose 84 mg/dl Calcium Level 9.0 mg/dl Assessment & Plan 47 yo female with nonoliguric jerilyn in the setting of vancomycin/IV contrast nephrotoxicity; did have one dialysis treatment on 10/28. creatinine peaked at 6.3 on 10/28, down to 5.2 next day after dialysis, back to 5.7 today. Has R IJ temp cath. She continues to have volume overload, HTN despite voiding. At this point expect renal function to improve in weeks/months, if at all. continue to believe she is likely but not certain to recover and come off of dialysis -HD today; plan it again tomorrow d/t volume issues ->>>>>she will leave hospital when ready as an acute hemodialysis pt; recommend she start at [facility] if her insurance covers; otherwise? [facility]; case mgt d/c planning c/s placed ->>>will place vascular consult for TDC placement/ temp line removal -marked HTN w/ sbp >150 pretty much consistently and new for her since 10/28 >> on amlodipine (increased to 7.5 mg daily on 10/31) hydralazine, prn clonidine for BP w/ HR >70s >>cont strict I/O >>monitor for need for further dialysis but will focus for today on bp control
--- NOTE | 2017-11-01 13:59 | Surgery Consultation ---
Consultation Date of Service Nov 01, 2017. Chief Complaint CARLOS, need permcath History of Present Illness The patient is a 47 year old female witih hx of fibromyalgia and lumbar spinal problems, admitted d/t infection of recent lumbar spine surgical area, seen today in consultation for permcath insertion to continue HD. Pt admission Cr was 0.69 and elevated to over 5, possibly d/t vancomycin toxicity. Has been undergoing HD through R IJ temporary catheter, but will require permcath prior to discharge. Pt admits fatigue, malaise, and states she is depressed. Denies WOLF, fever, chills, chest pain, SOB abdpain, N/V, rest pain, claudication, other complaints. Vitals Vital Signs Past 12 Hours Date Time Temp Pulse Resp B/P (MAP) Pulse Ox O2 Delivery O2 Flow Rate FiO2 11/01/17 13:30 79 142/88 11/01/17 13:15 78 151/92 11/01/17 13:00 76 159/96 11/01/17 12:45 76 155/62 11/01/17 12:30 75 163/94 11/01/17 12:15 76 152/86 11/01/17 12:00 76 155/86 11/01/17 11:45 78 155/67 11/01/17 11:30 80 156/90 11/01/17 11:15 81 145/88 11/01/17 11:00 75 155/93 11/01/17 10:45 75 165/93 11/01/17 10:30 78 139/87 11/01/17 10:16 75 153/88 11/01/17 10:08 37.3 76 146/88 (107) 11/01/17 09:29 79 16 152/88 (109) 96 Nasal Cannula 2.0 11/01/17 07:55 Nasal Cannula 2.0 11/01/17 07:48 92 Oxymask 2.0 11/01/17 07:24 36.7 82 16 159/89 (112) 89 Room Air 11/01/17 04:40 37.4 91 16 157/90 (112) 93 Oxymask 3.5 11/01/17 03:45 37.8 95 20 177/94 (121) 87 Room Air Allergies Coded Allergies: Latex1 -Allergic Contact Dermititis (Unverified Adverse Reaction, Unknown , ITCHY, 2/11/18) Home Medications Scheduled Bupropion Hcl (Bupropion Hcl Xl), 1 TAB PO QAM Docusate Sodium (Colace), 1 CAP PO BID Fluoxetine Hcl (Prozac), 20 MG PO DAILY Fluticasone Prop/Salmeterol (Advair Diskus 100-50 Mcg/Dose), 1 INHA INH BID Loratadine (Claritin), 1 CAP PO DAILY Pregabalin (Lyrica), 50 MG PO BID Trazodone Hcl (Trazodone), 50 MG PO HS Scheduled PRN Albuterol Hfa (Ventolin Hfa), 2-4 PUFFS INH Q6H PRN for SOB/Wheezing Hydrocodone/Acetaminophen 5MG/325MG ([place] 5MG/325MG), 1 TABLET PO Q8 PRN for Pain Ipratropium-Albuterol (Combivent Respimat), 1 PUFF INH QID PRN for SOB/Wheezing Ipratropium-Albuterol (Duoneb), 1 TREATMENT INH UD PRN for SOB/Wheezing Lorazepam (Ativan), 0.5 MG PO BID PRN for Anxiety Miscellaneous Medications Fluoxetine Hcl (Prozac), 40 MG PO Problem List Medical Problems: (1) Asthma (2) Fibromyalgia Surgical / Medical History Hx Thoracic Surgery: Yes (L4-L5 laminectomy and fusion) Hx Orthopedic: Yes (Tendinitis surgery) HX Other Surgery: Yes (Tonsillectomy) Past Medical/Surgical History: Asthma Family History Patient reports no known family medical history. Social History Smoking Status: Current Every Day Smoker Hx Tobacco Use In Past Year?: Yes Hx Alcohol Use - Type & Amnt: Yes Hx Substance Use -Type & Amnt: Yes Review of Systems Constitutional: + malaise, No chills, No fever Skin: No change in color Eyes: No visual changes ENMT: No sore throat Respiratory: No cough, No HUYNH, No short of breath Cardiovascular: No chest pain, No palpitations, No edema, No intermittent claudication Gastrointestinal: No abdominal pain, No diarrhea, No nausea, No vomiting Genitourinary - Female: No dysuria, No hematuria Neurologic: No dizziness, No headache, No numbness, No tingling Physical Exam Constitutional: General Apperance: heathly-appearing, well-nourished, well-developed Level of Distress: NAD Psychiatric: Mental Status: active & alert, anxious, depressed Orientation: oriented except where noted, to time, to place, to person Memory: recent memory normal, remote memory normal Head: normocephalic, atraumatic Eyes: EOM: EOMI ENMT: normal ENT inspection, hearing grossly normal Neck: supple, trachea midline Lungs: Respiratory effort: no dyspnea Auscultation: breath sounds normal, no wheezing, no rhonchi Cardiovascular: Apical Impulse: not displaced Heart Auscultation: RRR, no murmurs, no rubs Peripheral Pulses: Pulses: full and equal, in all extremities except if noted Bruits: none appreciated Carotid Pulse: normal on the left, normal on the right Brachial Pulses: normal on the left, normal on the right Radial Pulse: normal on the left, normal on the right Femoral Pulse: normal on the left, normal on the right Posterior Tibialis Pulse: decreased on the left, decreased on the right Dorsalis Pedis Pulse: decreased on the left, decreased on the right Abdomen: Bowel Sounds: normal Inspection & Palpation: soft, non-distended, no tenderness, guarding & rebound Musculoskeletal: normal strength (5/5 throughout), normal tone Extremities: Upper Right: no cyanosis, no edema, no varicosities Upper Left: no cyanosis, no edema, no varicosities Lower Right: no cyanosis, no edema, no varicosities Lower Left: no cyanosis, no edema, no varicosities Neurologic: Cranial Nerves: grossly intact Sensation: grossly intact Assessment and Plan ASSESSMENT and PLAN: CARLOS Pt tentatively scheduled for permcath insertion tomorrow in OR, however, pt will need current temporary catheter removed today by inserting provider if possible. Or can move permcath insertion to monday, with removal of temp line tomorrow. Pt also requesting general anesthesia for permcath insertion, will discuss with Dr Caba and anesthesia.
--- NOTE | 2017-11-01 19:11 | Progress Note ---
Internal Med Progress Note Date of Service: Nov 01, 2017. Provider Documentation: SUBJECTIVE: felt some what sob last night requiring oxygen BP running high feeling weak and tired back pain is same not worse eating ok ambulating in room no nausea has some concerns about tunnel cath tomorrow- wants to be sedated for procedure. OBJECTIVE: Vital Signs-as noted below Exam: General-alert and oriented. Not in distress ENT-normal hearing Neck-no neck masses s/p right IJ Lungs-cta b/l no wheezing or crackles Heart-s1 and s2 heard regular rate and rhythm no murmurs Abdomen-soft bowel sounds present non tender no distension Extremities-has pedal edema no erythema Neuro-alert and awake moves extremities Lab data as noted below. ASSESSMENT & PLAN: This is a 47 year old female with a PMH of mood disorder, fibromyalgia, asthma/ COPD, tobacco use disorder, recent lumbar surgery (decompression/fusion) - presents with pus draining from the surgical site. CARLOS- Mostly secondary to vancomycin. vanco trough 70 cr peaked to 6.2 cr 5.4 today nephrology on board.Received fluids as per nephrology stopped fluids as patient feeling somewhat sob as Cr still rising s/p temporary dialysis catheter and dialysis was initiated on 10/28/17 had dialysis again today 3rd. as labs are not improving patient seems requires jail dialysis plan for perm cath tomorrow Post-operative Fluid collection: Likely Seroma and doubt any Infection fluid filled collection in the L4-S1 area -Lumbar CT already performed::1. 9 x 4 x 3.5 cm slightly hyperdense collection extending from L4 through S1 involving the subcutaneous fat exclusively.. ID on board Dr. High discussed with Dr Dykes who reviewed the film and thinks the collection likely to be seroma Notified again the status of the patient today and he wants the patient to make appointment with him when the patient is discharged from the hospital. And he is also ok with taking out dressing in the back. currently off of abx seems stable will monitor Constipation stool softeners COPD/Asthma stable on home inhalers Mood Disorder To continue home medications very anxious now Fibromyalgia To continue home medications No acute issue DVT ppx SCDs, FULL CODE Disposition To be determined pt/ot social service for d/c planning Ortho Dr Obando #[phone] Vital Signs: Date Time Temp Pulse Resp B/P (MAP) Pulse Ox O2 Delivery O2 Flow Rate FiO2 11/01/17 15:35 Room Air 11/01/17 15:00 36.6 80 18 126/79 (95) 94 Room Air 11/01/17 14:28 151/88 (109) 11/01/17 14:15 36.5 78 164/97 (119) 11/01/17 13:30 79 142/88 11/01/17 13:15 78 151/92 11/01/17 13:00 76 159/96 11/01/17 12:45 76 155/62 11/01/17 12:30 75 163/94 11/01/17 12:15 76 152/86 11/01/17 12:00 76 155/86 11/01/17 11:45 78 155/67 11/01/17 11:30 80 156/90 11/01/17 11:15 81 145/88 11/01/17 11:00 75 155/93 11/01/17 10:45 75 165/93 11/01/17 10:30 78 139/87 11/01/17 10:16 75 153/88 11/01/17 10:08 37.3 76 146/88 (107) 11/01/17 09:29 79 16 152/88 (109) 96 Nasal Cannula 2.0 11/01/17 07:55 Nasal Cannula 2.0 11/01/17 07:48 92 Oxymask 2.0 11/01/17 07:24 36.7 82 16 159/89 (112) 89 Room Air 11/01/17 04:40 37.4 91 16 157/90 (112) 93 Oxymask 3.5 11/01/17 03:45 37.8 95 20 177/94 (121) 87 Room Air 11/01/17 00:00 Room Air 10/31/17 23:35 36.7 82 18 155/97 (116) 94 Oxymask 2.0 10/31/17 22:46 73 168/91 (116) 10/31/17 21:46 71 179/105 (129) 10/31/17 21:45 72 180/100 (126) Lab Results: Results Past 24 Hours Test 11/01/17 06:20 Range/Units White Blood Count 8.48 4.8-10.8 K/uL Red Blood Count 2.40 4.2-5.4 M/uL Hemoglobin 8.0 12.0-16.0 g/dL Hematocrit 22.7 37-47 % Mean Corpuscular Volume 94.6 80-100 fL Mean Corpuscular Hemoglobin 33.3 25-34 pg Mean Corpuscular Hemoglobin Concent 35.2 32-36 g/dl Platelet Count 218 130-400 K/uL Mean Platelet Volume 10.6 7.4-10.4 fL Neutrophils (%) (Auto) 71.1 % Lymphocytes (%) (Auto) 12.1 % Monocytes (%) (Auto) 13.8 % Eosinophils (%) (Auto) 2.2 % Basophils (%) (Auto) 0.6 % Neutrophils # (Auto) 6.02 1.4-6.5 K/uL Lymphocytes # (Auto) 1.03 1.2-3.4 K/uL Monocytes # (Auto) 1.17 0.11-0.59 K/uL Eosinophils # (Auto) 0.19 0-0.5 K/uL Basophils # (Auto) 0.05 0-0.2 K/uL RDW Standard Deviation 49.0 36.4-46.3 fL RDW Coefficient of Variation 14.1 11.5-14.5 % Immature Granulocyte % (Auto) 0.2 % Immature Granulocyte # (Auto) 0.02 0.00-0.02 K/uL Red Blood Cell Morphology Unremarkable Sodium Level 131 136-145 mmol/L Potassium Level 4.8 3.5-5.1 mmol/L Chloride Level 99 98-107 mmol/L Carbon Dioxide Level 22 21-32 mmol/L Anion Gap 10.0 3-11 mmol/L Blood Urea Nitrogen 27 7-18 mg/dl Creatinine 5.30 0.60-1.20 mg/dl Est Creatinine Clear Calc Drug Dose 13.3 ml/min Estimated GFR () 10.3 Estimated GFR (Non- 8.9 BUN/Creatinine Ratio 5.2 10-20 Random Glucose 84 70-99 mg/dl Calcium Level 9.0 8.5-10.1 mg/dl
[2017-11-01] MEDS: TRAZODONE HCL 50 MG TAB PO SCH (20:34)
[2017-11-01] MEDS: AMLODIPINE BESYLATE 5 MG TAB PO SCH (20:36)
[2017-11-02] VITALS (23 sets, daily range): BP systolic 126–172; BP diastolic 74–100; PULSE 69–90; TEMP 36.7–37.4; O2SAT 88–96
[2017-11-02] MEDS: HydrALAZINE 10 MG TAB PO SCH ×3 (07:47→21:20)
[2017-11-02] MEDS: FLUTICASONE/SALMETEROL 100/50 (ADVAIR) 14 PUFF/1 INHALER INH SCH ×2 (07:49→21:19)
[2017-11-02] MEDS: FLUOXETINE HCL 20 MG CAP PO SCH (07:49)
[2017-11-02] MEDS: DOCUSATE SODIUM/SENNA 50/8.6MG TAB PO SCH ×2 (07:49→21:20)
[2017-11-02] MEDS: BuPROPion XL 300 MG TABCR PO SCH (07:50)
[2017-11-02] MEDS: PREGABALIN 50 MG CAP PO SCH ×2 (07:52→21:20)
[2017-11-02] MEDS: OXYCODONE/ACETAMINOPHEN 5-325 TAB PO PRN ×3 (07:52→19:24)
[2017-11-02 09:43] LABS: HEMATOCRIT 23.5 % (37-47); HEMOGLOBIN 8.3 g/dL (12.0-16.0); MEAN CELL VOLUME 94.8 fL (80-100); MEAN CORPUSCULAR HEMOGLOBIN 33.5 pg (25-34); MEAN CORPUSCULAR HGB CONC 35.3 g/dl (32-36); MEAN PLATELET VOLUME 10.1 fL (7.4-10.4); PLATELET COUNT 174 K/uL (130-400); RED CELL DISTRIBUTION WIDTH CV 14.2 % (11.5-14.5); RED CELL DISTRIBUTION WIDTH SD 49.2 fL (36.4-46.3); WHITE BLOOD COUNT 9.56 K/uL (4.8-10.8)
[2017-11-02 10:14] LABS: CALCIUM 8.7 mg/dl (8.5-10.1); CREATININE 4.61 mg/dl (0.60-1.20); POTASSIUM 3.9 mmol/L (3.5-5.1)
[2017-11-02] MEDS ORDERED: CEFAZOLIN 2000MG IV PUSH 15 ML IV SCH (13:00)
--- NOTE | 2017-11-02 14:09 | Nephrology Progress Note ---
Nephrology Progress Note Date of Service: Nov 02, 2017. Subjective 0.9 L UOP. ongoing intermittent dyspnea but overall better; c/o proximal BL thigh pain on/but more off HD. tearful, frustrated. Objective Date Time Temp Pulse Resp B/P (MAP) Pulse Ox O2 Delivery O2 Flow Rate FiO2 11/02/17 13:42 37.4 80 172/100 (124) 11/02/17 13:00 73 126/74 11/02/17 12:45 84 168/87 11/02/17 12:30 78 155/82 11/02/17 12:15 80 156/88 11/02/17 12:00 82 153/87 11/02/17 11:45 78 157/89 11/02/17 11:30 80 155/88 11/02/17 11:15 79 149/91 11/02/17 11:00 79 159/79 11/02/17 10:45 81 148/83 11/02/17 10:30 80 143/80 11/02/17 10:15 88 143/78 11/02/17 10:00 86 146/85 11/02/17 09:45 82 143/84 11/02/17 09:38 37.2 85 155/88 (110) 11/02/17 08:00 Nasal Cannula 2.0 11/02/17 07:14 36.9 86 18 171/99 (123) 92 Nasal Cannula 2.0 11/01/17 23:31 Nasal Cannula 2.0 11/01/17 15:35 Room Air 11/01/17 15:00 36.6 80 18 126/79 (95) 94 Room Air 11/01/17 14:28 151/88 (109) 11/01/17 14:15 36.5 78 164/97 (119) Physical Exam: General-aaox3, on RA (02 off face), maneuvers readily for exam Eyes-no scleral icterus ENT-mmm Neck-supple Lungs-cta but diminished bl bases Heart-rrr Abdomen-bs+ s/nt/nd Extremities-no c/c/e Neuro-coyle, fluent speech, anxious/tearful Back-not examined on HD Current Inpatient Medications Medications (Trade) Dose Ordered Sig/Kimmie Route Start Time Stop Time Status Last Admin Dose Admin Lorazepam (Ativan Tab) 0.5 mg BID PRN PO 10/22/17 18:30 11/21/17 18:29 10/31/17 08:58 0.5 MG Acetaminophen (Tylenol Tab) 650 mg Q4H PRN PO 10/22/17 18:45 11/21/17 18:44 Fluoxetine HCl (Prozac Cap) 60 mg DAILY PO 10/23/17 09:00 11/22/17 08:59 11/02/17 07:49 60 MG Trazodone HCl (Desyrel Tab) 50 mg HS PO 10/22/17 21:00 11/22/17 08:59 11/01/17 20:34 50 MG Bupropion HCl (Wellbutrin-Xl Tab) 300 mg QAM PO 10/23/17 09:00 11/22/17 08:59 11/02/17 07:50 300 MG Salmeterol Xinafoate/ Fluticasone (Advair Diskus 100/50 Inh) 1 puff BID INH 10/22/17 21:00 11/21/17 20:59 11/02/17 07:49 1 PUFF Pregabalin (Lyrica Cap) 50 mg BID PO 10/22/17 21:00 11/21/17 20:59 11/02/17 07:52 50 MG Ondansetron HCl (Zofran Inj) 4 mg Q8H PRN IV 10/22/17 22:30 11/21/17 22:29 Al Hydrox/Mg Hydrox/Simethicone (Maalox Max Susp) 15 ml Q6H PRN PO 10/23/17 09:30 11/22/17 09:29 10/31/17 09:34 15 ML Albuterol (Ventolin Hfa Inhaler) 2 puffs Q4 PRN INH 10/27/17 14:45 11/26/17 14:44 11/01/17 18:53 2 PUFFS Senna/Docusate Sodium (Senokot S Tab) 1 tab BID PO 10/28/17 21:00 11/27/17 20:59 11/02/17 07:49 1 TAB Polyethylene (Miralax Powder Packet) 17 gm DAILY PRN PO 10/28/17 17:00 11/27/17 16:59 Clonidine HCl (Catapres Tab) 0.1 mg Q4 PRN PO 10/28/17 18:00 11/27/17 17:59 11/01/17 04:08 0.1 MG Hydralazine HCl (Apresoline Tab) 10 mg TID PO 10/30/17 16:00 11/29/17 15:59 11/01/17 20:33 10 MG Oxycodone/ Acetaminophen (Percocet 5-325mg Tab) 2 tab Q4H PRN PO 10/30/17 18:15 11/13/17 18:14 11/02/17 07:52 2 TAB Amlodipine Besylate (Norvasc Tab) 7.5 mg HS PO 10/31/17 21:00 11/29/17 20:59 11/01/17 20:36 7.5 MG Cefazolin Sodium 15 ml @ 225 mls/hr PREOP IV 11/03/17 07:00 11/03/17 09:00 Last 24 Hours Test 11/02/17 09:33 White Blood Count 9.56 K/uL Red Blood Count 2.48 M/uL Hemoglobin 8.3 g/dL Hematocrit 23.5 % Mean Corpuscular Volume 94.8 fL Mean Corpuscular Hemoglobin 33.5 pg Mean Corpuscular Hemoglobin Concent 35.3 g/dl RDW Standard Deviation 49.2 fL RDW Coefficient of Variation 14.2 % Platelet Count 174 K/uL Mean Platelet Volume 10.1 fL Sodium Level 134 mmol/L Potassium Level 3.9 mmol/L Chloride Level 98 mmol/L Carbon Dioxide Level 29 mmol/L Anion Gap 7.0 mmol/L Blood Urea Nitrogen 22 mg/dl Creatinine 4.61 mg/dl Est Creatinine Clear Calc Drug Dose 15.2 ml/min Estimated GFR () 12.2 Estimated GFR (Non- 10.5 BUN/Creatinine Ratio 4.8 Random Glucose 96 mg/dl Calcium Level 8.7 mg/dl Total Creatine Kinase 31 U/L Assessment & Plan 47 yo female with nonoliguric jerilyn in the setting of vancomycin/IV contrast nephrotoxicity; did have one dialysis treatment on 10/28. creatinine peaked at 6.3 on 10/28, down to 5.2 next day after dialysis, back to 5.7 today. Has R IJ temp cath. She continues to have volume overload, HTN despite voiding. At this point expect renal function to improve in weeks/months, if at all. continue to believe she is likely but not certain to recover and come off of dialysis -HD today; plan it again tomorrow or 11/04 d/t volume issues ->>>>>she will leave hospital when ready as an acute hemodialysis pt; recommend she start at [facility] if her insurance covers; otherwise? [facility]; case mgt working on this; assistance appreciated ->>>vasc surg help w/ TDC placement/ temp line removal -marked HTN w/ sbp >150 pretty much consistently and new for her since 10/28 >> cont dialysis, current amlodipine, hydralazine, prn clonidine for BP w/ HR >70s >>cont strict I/O -CK is wnl Care coordinated w/ Dr. Mejía.
--- NOTE | 2017-11-02 14:11 | Progress Note ---
Progress Note Date of Service Nov 02, 2017. Progress Note Permcath insertion planned for tomorrow. I have discussed the risks options and benefits of the procedure with the patient. The patient understands the risks options and benefits and agrees to the procedure.
--- NOTE | 2017-11-02 15:08 | Progress Note ---
Internal Med Progress Note Date of Service: Nov 02, 2017. Provider Documentation: SUBJECTIVE: The patient was seen and examined Not feeling well Has dry cough Back pain is worse OBJECTIVE: Vital Signs-as noted below Exam: General-NO distress at rest Anxious about the kidney function Eyes-Normal ENT-normal Neck-supple Lungs-clear to auscultate bilaterally Heart-Regular Abdomen-Benign,no masses,bowel sound present Extremities-No edema Neuro-AAOx3 Examination of the Back wound:: Wounds much better no infection Lab data as noted below. ASSESSMENT & PLAN: This is a 47 year old female with a PMH of mood disorder, fibromyalgia, asthma/ COPD, tobacco use disorder, recent lumbar surgery (decompression/fusion) - presents with pus draining from the surgical site. CARLOS-Vancomycin Toxicity Likely secondary to Vancomycin Increased Trough level of vancomycin of > 70 Nephrology consulted -appreciate input IV fluid and monitor PRP.US -negative Renal function deteriorated to 4.8 Requiring HD now and making adequet amount of urine Fluid restriction to 1500mls daily Plan for Perm Catheter tomorrow by dr Caba Central line can come out today Likely to be discharged when accepted for OP HD Post-operative Fluid collection: Likely Seroma and doubt any Infection -fluid filled collection in the L4-S1 area -Lumbar CT already performed::1. 9 x 4 x 3.5 cm slightly hyperdense collection extending from L4 through S1 involving the subcutaneous fat exclusively.. 2. This may represent a postprocedural hematoma versus infection 3. Operative changes consistent with an L4-L5 laminectomy and fusion. No evidence for bony or posterior arch involvement. -on broad spectrum antibiotics, Vanco + Zosyn -appreciate ID input -Discussed with Dr Dykes who reviewed the film and thinks the collection likely to be seroma -Antibiotics discontinued The wound is cleared of any infection now Will need OP appointment with Dr Obando on discharge COPD/Asthma Continue home inhalers No acute issue Mood Disorder Continue home medications Very anxious now Fibromyalgia Continue home medications No acute issue DVT ppx SCDs, avoiding chemical prophylaxis on the off chance that this is a hematoma FULL CODE (Note from My previous Follow Up) Has had a long discussion with the patient. Explained the current disease condition,explained the need for Vancomycin and the rare significant adverse reaction it can cause The renal function can get worse before it gets better May need short term Dialysis Very anxious but understanding Discussed with the Ortho Dr Obando #[phone] Vital Signs: Date Time Temp Pulse Resp B/P (MAP) Pulse Ox O2 Delivery O2 Flow Rate FiO2 11/02/17 14:24 93 Nasal Cannula 2.0 11/02/17 14:23 37.0 90 18 161/80 (107) 88 Room Air 11/02/17 13:42 37.4 80 172/100 (124) 11/02/17 13:00 73 126/74 11/02/17 12:45 84 168/87 11/02/17 12:30 78 155/82 11/02/17 12:15 80 156/88 11/02/17 12:00 82 153/87 11/02/17 11:45 78 157/89 11/02/17 11:30 80 155/88 11/02/17 11:15 79 149/91 11/02/17 11:00 79 159/79 11/02/17 10:45 81 148/83 11/02/17 10:30 80 143/80 11/02/17 10:15 88 143/78 11/02/17 10:00 86 146/85 11/02/17 09:45 82 143/84 11/02/17 09:38 37.2 85 155/88 (110) 11/02/17 08:00 Nasal Cannula 2.0 11/02/17 07:14 36.9 86 18 171/99 (123) 92 Nasal Cannula 2.0 11/01/17 23:31 Nasal Cannula 2.0 11/01/17 15:35 Room Air Lab Results: Results Past 24 Hours Test 11/02/17 09:33 Range/Units White Blood Count 9.56 4.8-10.8 K/uL Red Blood Count 2.48 4.2-5.4 M/uL Hemoglobin 8.3 12.0-16.0 g/dL Hematocrit 23.5 37-47 % Mean Corpuscular Volume 94.8 80-100 fL Mean Corpuscular Hemoglobin 33.5 25-34 pg Mean Corpuscular Hemoglobin Concent 35.3 32-36 g/dl RDW Standard Deviation 49.2 36.4-46.3 fL RDW Coefficient of Variation 14.2 11.5-14.5 % Platelet Count 174 130-400 K/uL Mean Platelet Volume 10.1 7.4-10.4 fL Sodium Level 134 136-145 mmol/L Potassium Level 3.9 3.5-5.1 mmol/L Chloride Level 98 98-107 mmol/L Carbon Dioxide Level 29 21-32 mmol/L Anion Gap 7.0 3-11 mmol/L Blood Urea Nitrogen 22 7-18 mg/dl Creatinine 4.61 0.60-1.20 mg/dl Est Creatinine Clear Calc Drug Dose 15.2 ml/min Estimated GFR () 12.2 Estimated GFR (Non- 10.5 BUN/Creatinine Ratio 4.8 10-20 Random Glucose 96 70-99 mg/dl Calcium Level 8.7 8.5-10.1 mg/dl Total Creatine Kinase 31 26-192 U/L
[2017-11-02] MEDS ORDERED: GUAIFENESIN/DEXTROM SYRUP 100MG/10MG 5ML UDC PO PRN (15:30)
[2017-11-02] MEDS: LORAZEPAM 0.5 MG TAB PO PRN (16:59)
[2017-11-02] MEDS: AMLODIPINE BESYLATE 5 MG TAB PO SCH (21:19)
[2017-11-02] MEDS: TRAZODONE HCL 50 MG TAB PO SCH (21:22)
[2017-11-03] VITALS (17 sets, daily range): BP systolic 117–174; BP diastolic 47–99; PULSE 72–87; TEMP 36.8–36.9; O2SAT 92–95
[2017-11-03] MEDS ORDERED: CEFAZOLIN 1000MG IV PUSH 7.5 ML IV SCH (06:00)
[2017-11-03] MEDS ORDERED: CEFAZOLIN 2000MG IV PUSH 15 ML IV SCH (07:00)
--- NOTE | 2017-11-03 07:00 | Progress Note ---
Progress Note Date of Service Nov 03, 2017. Progress Note Patient for insertion of permcath today. I have discussed the risks options and benefits of the procedure with the patient. The patient understands the risks options and benefits and agrees to the procedure. I have examined the patient, reviewed the History & Physical and in the interval since the performance of the History & Physical I have noted the following changes of clinical significance: No changes noted
[2017-11-03] MEDS ORDERED: LORAZEPAM INJ 0.25 MG in SYRINGE 0.25 ML IV PRN (08:30)
[2017-11-03] MEDS: FLUTICASONE/SALMETEROL 100/50 (ADVAIR) 14 PUFF/1 INHALER INH SCH ×2 (09:00→22:16)
[2017-11-03] MEDS: DOCUSATE SODIUM/SENNA 50/8.6MG TAB PO SCH ×2 (09:00→22:15)
[2017-11-03] MEDS: HydrALAZINE 10 MG TAB PO SCH ×3 (09:00→22:14)
[2017-11-03] MEDS: PREGABALIN 50 MG CAP PO SCH ×2 (09:00→22:13)
[2017-11-03] MEDS ORDERED: NURSING VERBAL MED ORDER ONE ×2 (09:15→12:00)
[2017-11-03] MEDS ORDERED: HEPARIN SOD (PORCINE) 5000 UNIT/ML 1 ML VIAL ONE (09:36)
[2017-11-03] MEDS ORDERED: KETAMINE HCL INJ 50 MG/ML 10 ML VIAL ONE (09:47)
[2017-11-03] MEDS ORDERED: PROPOFOL IV EMULSION 10 MG/ML 20 ML VIAL IV ONE (09:47)
[2017-11-03] MEDS ORDERED: MIDAZOLAM HCL 1 MG/ML 2ML VIAL ONE ×2 (09:47→10:31)
[2017-11-03] MEDS ORDERED: LIDOCAINE HCL 2% 2 ML VIAL (20MG/ML) ONE (09:47)
[2017-11-03] MEDS ORDERED: FENTANYL CITRATE INJ 50 MCG/1 ML 2 ML VIAL ONE (09:47)
[2017-11-03] MEDS ORDERED: ALBUTEROL 0.5% NEB SOLN 2.5 MG/0.5 ML VIAL INH ONE (10:03)
[2017-11-03] MEDS ORDERED: ONDANSETRON INJ 2 MG/ML 2 ML VIAL IV PRN (10:15)
[2017-11-03] MEDS ORDERED: ATROPINE SULFATE 0.1 MG/ML 5ML SYR IV PRN (10:15)
[2017-11-03] MEDS ORDERED: EpHEDrine SULFATE INJ 50 MG/ML AMP IV PRN (10:15)
[2017-11-03] MEDS ORDERED: ALBUTEROL HFA INHALER 8.5 GM INH ONE (10:31)
[2017-11-03] MEDS ORDERED: HEPARIN SOD (PORCINE) 5000 UNIT/ML 1 ML VIAL IV ONE (11:01)
[2017-11-03] MEDS ORDERED: LIDOCAINE HCL 1% 20 ML VIAL SQ ONE (11:01)
--- NOTE | 2017-11-03 11:02 | [facility] Operative Report ---
Operative Report Operative Date Nov 03, 2017. Pre-Operative Diagnosis Acute Kidney Injury Post-Operative Diagnosis Acute Kidney Injury Procedure(s) Performed Removal of Temporary Dialysis Catheter, Insertion of Perm Catheter, Right Internal Jugular Approach, Ultrasound localization of Right internal Jugular Vein, Fluoroscopy for Positioning. Surgeon Dr. Caba Manager Real [employer] Surgeon(s) None Estimated Blood Loss 10 Findings tip in distal SVC Specimens None Drains None Anesthesia Type MAC Complication(s) none Disposition no Recovery Room / PACU Indications This is a 47-year-old female with acute kidney injury in need of dialysis. A permCath was recommended. I have discussed the risks options and benefits of the procedure with the patient. The patient understands the risks options and benefits and agrees to the procedure. Description of Procedure Patient was taken to the angio suite and placed in the supine position. The dressing was removed from the right-sided neck. Sutures were removed from the temporary dialysis catheter. The dialysis catheter was then removed without difficulty. Pressure was applied and adequate hemostasis was then obtained. The right side of the neck and chest wall were prepped and draped in a sterile manner. Local anesthesia was then administered to the appropriate areas of the neck and chest wall. Ultrasound was then used to locate the right internal jugular vein. The vein compressed easily, had no filing defects, and was patent. The vein was then punctured under direct ultrasound imaging. A guidewire was then passed centrally under fluoroscopic imaging. A stab wound was then made in the anterior chest wall and a 19 cm permcath was passed from the stab wound on the chest wall to the puncture site on the neck. The puncture site was then dilated till the 14Fr peel away sheath was inserted. The permcath was then inserted through the sheath to a central position in the distal superior vena cava. The peel away sheath was then removed. The catheter was then sutured in place using nylon sutures. The puncture was then closed using a 4-0 Vicryl subcuticular suture. Dermabond was used for a dressing on the puncture site. Both ports aspirated and flushed easily and were then packed with heparin. A sterile dressing was applied to the catheter. The patient left the angio suite in good condition and tolerated the procedure well. I attest to the content of the Intraoperative Record and any orders documented therein. Any exceptions are noted below.
[2017-11-03] MEDS: FENTANYL CITRATE INJ 50 MCG/1 ML 2 ML VIAL IV PRN ×4 (11:18→11:36)
--- NOTE | 2017-11-03 11:26 | Anesthesiology Progress Note ---
Anesthesia Post Op Note Date & Time Nov 03, 2017 at 11:25 Vital Signs Pain Intensity: 6.0 Vital Signs Past 12 Hours Date Time Temp Pulse Resp B/P (MAP) Pulse Ox O2 Delivery O2 Flow Rate FiO2 11/03/17 07:32 36.8 76 16 151/87 (108) 92 Nasal Cannula 3.0 11/02/17 23:28 Nasal Cannula 2.0 Notes Mental Status: alert / awake / arousable, participated in evaluation Pt Amnestic to Procedure: Yes Nausea / Vomiting: adequately controlled Pain: adequately controlled Airway Patency, RR, SpO2: stable & adequate BP & HR: stable & adequate Hydration State: stable & adequate Anesthetic Complications: no major complications apparent
[2017-11-03] MEDS: HYDROmorphone INJ 0.5 MG/0.5 ML SYR IV PRN ×2 (11:39→18:26)
[2017-11-03] MEDS ORDERED: LORAZEPAM 2 MG/ML 1 ML VIAL ONE (11:44)
[2017-11-03] MEDS ORDERED: HYDROmorphone INJ 1 MG/ML SYR ONE (11:47)
[2017-11-03] MEDS ORDERED: HYDROmorphone INJ 0.5 MG/0.5 ML SYR IV PRN (12:15)
[2017-11-03] MEDS: ALBUTEROL HFA 8 GM INHALER INH PRN (17:56)
--- NOTE | 2017-11-03 18:00 | Dialysis Progress Note ---
Nephrology Dialysis Note Date of Service: Nov 03, 2017. Subjective 1.7 L UOP; maybe less today though she has had a lot of procedures/been off of floor. ongoing intermittent dyspnea and on 02NC; anxious; c/o neck pain Objective Date Time Temp Pulse Resp B/P (MAP) Pulse Ox O2 Delivery O2 Flow Rate FiO2 11/03/17 17:49 87 164/97 (119) 11/03/17 17:49 36.9 87 22 160/85 (110) 92 Room Air 11/03/17 17:20 80 148/89 11/03/17 17:00 79 140/79 11/03/17 16:40 79 159/99 11/03/17 16:20 83 171/95 11/03/17 16:00 72 174/97 11/03/17 15:40 72 159/93 11/03/17 15:20 73 142/87 11/03/17 15:00 76 163/47 11/03/17 14:18 36.8 78 154/94 (114) 11/03/17 13:40 78 155/69 11/03/17 13:20 80 150/87 11/03/17 13:05 85 153/84 11/03/17 13:05 36.8 76 18 153/78 (103) 95 Nasal Cannula 3.0 11/03/17 12:40 Room Air 11/03/17 12:40 93 Nasal Cannula 3.0 11/03/17 12:40 36.9 87 16 149/75 (99) 93 Nasal Cannula 3.0 11/03/17 12:25 84 16 119/95 94 Nasal Cannula 3 11/03/17 12:10 82 16 152/93 93 Nasal Cannula 3 11/03/17 12:00 37.5 83 12 147/84 94 Nasal Cannula 3 11/03/17 11:50 87 14 152/90 92 Nasal Cannula 3 11/03/17 11:40 85 18 142/87 94 Nasal Cannula 3 11/03/17 11:30 88 20 131/97 94 Nasal Cannula 3 11/03/17 11:20 91 14 154/95 94 Nasal Cannula 3 11/03/17 11:11 37.1 95 18 137/86 94 Nasal Cannula 3 11/03/17 07:32 36.8 76 16 151/87 (108) 92 Nasal Cannula 3.0 11/03/17 07:20 92 Nasal Cannula 3.0 11/02/17 23:28 Nasal Cannula 2.0 11/02/17 23:20 36.7 69 16 128/75 (92) 95 Nasal Cannula 2.0 11/02/17 21:20 75 145/89 (107) Physical Exam: General-aaox3, on 02nc Eyes-no scleral icterus ENT-mmm Neck-supple Lungs-cta but diminished bl bases Heart-rrr Abdomen-bs+ s/nt/nd Extremities-no c/c/e Neuro-coyle, fluent speech, anxious/tearful Back-not examined on HD Current Inpatient Medications Medications (Trade) Dose Ordered Sig/Kimmie Route Start Time Stop Time Status Last Admin Dose Admin Lorazepam (Ativan Tab) 0.5 mg BID PRN PO 10/22/17 18:30 11/21/17 18:29 11/02/17 16:59 0.5 MG Acetaminophen (Tylenol Tab) 650 mg Q4H PRN PO 10/22/17 18:45 11/21/17 18:44 Fluoxetine HCl (Prozac Cap) 60 mg DAILY PO 10/23/17 09:00 11/22/17 08:59 11/02/17 07:49 60 MG Trazodone HCl (Desyrel Tab) 50 mg HS PO 10/22/17 21:00 11/22/17 08:59 11/02/17 21:22 50 MG Bupropion HCl (Wellbutrin-Xl Tab) 300 mg QAM PO 10/23/17 09:00 11/22/17 08:59 11/02/17 07:50 300 MG Salmeterol Xinafoate/ Fluticasone (Advair Diskus 100/50 Inh) 1 puff BID INH 10/22/17 21:00 11/21/17 20:59 11/03/17 09:00 1 PUFF Pregabalin (Lyrica Cap) 50 mg BID PO 10/22/17 21:00 11/21/17 20:59 11/02/17 21:20 50 MG Ondansetron HCl (Zofran Inj) 4 mg Q8H PRN IV 10/22/17 22:30 11/21/17 22:29 Al Hydrox/Mg Hydrox/Simethicone (Maalox Max Susp) 15 ml Q6H PRN PO 10/23/17 09:30 11/22/17 09:29 10/31/17 09:34 15 ML Albuterol (Ventolin Hfa Inhaler) 2 puffs Q4 PRN INH 10/27/17 14:45 11/26/17 14:44 11/01/17 18:53 2 PUFFS Senna/Docusate Sodium (Senokot S Tab) 1 tab BID PO 10/28/17 21:00 11/27/17 20:59 11/02/17 21:20 1 TAB Polyethylene (Miralax Powder Packet) 17 gm DAILY PRN PO 10/28/17 17:00 11/27/17 16:59 Clonidine HCl (Catapres Tab) 0.1 mg Q4 PRN PO 10/28/17 18:00 11/27/17 17:59 11/01/17 04:08 0.1 MG Hydralazine HCl (Apresoline Tab) 10 mg TID PO 10/30/17 16:00 11/29/17 15:59 11/02/17 21:20 10 MG Oxycodone/ Acetaminophen (Percocet 5-325mg Tab) 2 tab Q4H PRN PO 10/30/17 18:15 11/13/17 18:14 11/02/17 19:24 2 TAB Amlodipine Besylate (Norvasc Tab) 7.5 mg HS PO 10/31/17 21:00 11/29/17 20:59 11/02/17 21:19 7.5 MG Guaifenesin/ Dextromethorphan (Robitussin-Dm Syrup) 5 ml Q6H PRN PO 11/02/17 15:30 12/02/17 15:29 11/02/17 18:26 5 ML Hydromorphone HCl (Dilaudid Inj) 0.5 mg Q6H PRN IV 11/03/17 08:30 11/17/17 08:29 11/03/17 11:39 0.5 MG Lorazepam 0.25 mg/ Syringe 0.375 ml @ 0.5 mls/min ONE PRN IV 11/03/17 08:30 12/03/17 08:29 Cefazolin Sodium 7.5 ml @ 1.667 mls/ min PREOP IV 11/03/17 06:00 11/03/17 18:00 11/03/17 10:10 1.667 MLS/MIN Assessment & Plan 47 yo female with nonoliguric jerilyn in the setting of vancomycin/IV contrast nephrotoxicity; did have one dialysis treatment on 10/28. creatinine peaked at 6.3 on 10/28, down to 5.2 next day after dialysis, back to 5.7 today. Has R IJ temp cath. She continues to have volume overload, HTN despite voiding. At this point expect renal function to improve in weeks/months, if at all. continue to believe she is likely but not certain to recover and come off of dialysis -HD today; next HD tentatively for 11/06 as outpt ->1300 at [facility] ->needs transportation to dialysis -marked HTN w/ sbp >150 pretty much consistently and new for her since 10/28 >> d/c on amlodipine, hydralazine; do not d/c on prn clonidine -get bmp tomorrow am (will be artificially low after HD but will be useful for comparison at 11/[address] [facility]) >>cont strict I/O -need to eval for home 02 or not at d/c Care coordinated w/ Dr. High and Dr Valentine
[2017-11-03] MEDS: FLUOXETINE HCL 20 MG CAP PO SCH (18:23)
[2017-11-03] MEDS: BuPROPion XL 300 MG TABCR PO SCH (18:24)
--- NOTE | 2017-11-03 18:25 | Progress Note ---
Internal Med Progress Note Date of Service: Nov 03, 2017. Provider Documentation: SUBJECTIVE: The patient was seen and examined Not feeling well and very anxious Complains of neck pain and swelling at the procedure site OBJECTIVE: Vital Signs-as noted below Exam: General-NO distress at rest Anxious about the kidney function Eyes-Normal ENT-normal Neck-Swelling at the right lower neck Lungs-Minimal crackles at the left base Heart-Regular Abdomen-Benign,no masses,bowel sound present Extremities-No edema Neuro-AAOx3 Examination of the Back wound:: Wounds much better no infection Lab data as noted below. ASSESSMENT & PLAN: This is a 47 year old female with a PMH of mood disorder, fibromyalgia, asthma/ COPD, tobacco use disorder, recent lumbar surgery (decompression/fusion) - presents with pus draining from the surgical site. CARLOS-Vancomycin Toxicity Likely secondary to Vancomycin Increased Trough level of vancomycin of > 70 Nephrology consulted -appreciate input IV fluid and monitor PRP.US -negative Renal function deteriorated to 4.8 Requiring HD now and making adequet amount of urine Fluid restriction to 1500mls daily S/P Permcath placement today 11/03/17 Some swelling at the local site Has had some SOB OP dialysis arranged Likely home tomorrow 12 steps before discharge HTN Will need medications to control HTN Post-operative Fluid collection: Likely Seroma and doubt any Infection -fluid filled collection in the L4-S1 area -Lumbar CT already performed::1. 9 x 4 x 3.5 cm slightly hyperdense collection extending from L4 through S1 involving the subcutaneous fat exclusively.. 2. This may represent a postprocedural hematoma versus infection 3. Operative changes consistent with an L4-L5 laminectomy and fusion. No evidence for bony or posterior arch involvement. -on broad spectrum antibiotics, Vanco + Zosyn -appreciate ID input -Discussed with Dr Dykes who reviewed the film and thinks the collection likely to be seroma -Antibiotics discontinued The wound is cleared of any infection now Will need OP appointment with Dr Obando on discharge COPD/Asthma Continue home inhalers No acute issue Mood Disorder Continue home medications Very anxious now Fibromyalgia Continue home medications No acute issue DVT ppx SCDs, avoiding chemical prophylaxis on the off chance that this is a hematoma FULL CODE (Note from My previous Follow Up) Has had a long discussion with the patient. Explained the current disease condition,explained the need for Vancomycin and the rare significant adverse reaction it can cause The renal function can get worse before it gets better May need short term Dialysis Very anxious but understanding Discussed with the Ortho Dr Obando #[phone] Likely to be discharged tomorrow Social service to arrange Transport to and from dialysis center Home health nurse to visit 2 steps before discharge Vital Signs: Date Time Temp Pulse Resp B/P (MAP) Pulse Ox O2 Delivery O2 Flow Rate FiO2 11/03/17 17:49 87 164/97 (119) 11/03/17 17:49 36.9 87 22 160/85 (110) 92 Room Air 11/03/17 17:20 80 148/89 11/03/17 17:00 79 140/79 11/03/17 16:40 79 159/99 11/03/17 16:20 83 171/95 11/03/17 16:00 72 174/97 11/03/17 15:40 72 159/93 11/03/17 15:20 73 142/87 11/03/17 15:00 76 163/47 11/03/17 14:18 36.8 78 154/94 (114) 11/03/17 13:40 78 155/69 11/03/17 13:20 80 150/87 11/03/17 13:05 85 153/84 11/03/17 13:05 36.8 76 18 153/78 (103) 95 Nasal Cannula 3.0 11/03/17 12:40 Room Air 11/03/17 12:40 93 Nasal Cannula 3.0 11/03/17 12:40 36.9 87 16 149/75 (99) 93 Nasal Cannula 3.0 11/03/17 12:25 84 16 119/95 94 Nasal Cannula 3 11/03/17 12:10 82 16 152/93 93 Nasal Cannula 3 11/03/17 12:00 37.5 83 12 147/84 94 Nasal Cannula 3 11/03/17 11:50 87 14 152/90 92 Nasal Cannula 3 11/03/17 11:40 85 18 142/87 94 Nasal Cannula 3 11/03/17 11:30 88 20 131/97 94 Nasal Cannula 3 11/03/17 11:20 91 14 154/95 94 Nasal Cannula 3 11/03/17 11:11 37.1 95 18 137/86 94 Nasal Cannula 3 11/03/17 07:32 36.8 76 16 151/87 (108) 92 Nasal Cannula 3.0 11/03/17 07:20 92 Nasal Cannula 3.0 11/02/17 23:28 Nasal Cannula 2.0 11/02/17 23:20 36.7 69 16 128/75 (92) 95 Nasal Cannula 2.0 11/02/17 21:20 75 145/89 (107)
[2017-11-03] MEDS: LORAZEPAM 0.5 MG TAB PO PRN (20:24)
[2017-11-03] MEDS: OXYCODONE/ACETAMINOPHEN 5-325 TAB PO PRN (20:26)
[2017-11-03] MEDS: AMLODIPINE BESYLATE 5 MG TAB PO SCH (22:15)
[2017-11-03] MEDS: TRAZODONE HCL 50 MG TAB PO SCH (22:16)
[2017-11-04 06:52] LABS: HEMATOCRIT 23.7 % (37-47); HEMOGLOBIN 8.3 g/dL (12.0-16.0); MEAN CELL VOLUME 93.7 fL (80-100); MEAN CORPUSCULAR HEMOGLOBIN 32.8 pg (25-34); MEAN PLATELET VOLUME 10.6 fL (7.4-10.4); PLATELET COUNT 148 K/uL (130-400); RED CELL DISTRIBUTION WIDTH CV 13.8 % (11.5-14.5); RED CELL DISTRIBUTION WIDTH SD 47.3 fL (36.4-46.3); WHITE BLOOD COUNT 9.65 K/uL (4.8-10.8)
[2017-11-04 07:39] LABS: CALCIUM 9.3 mg/dl (8.5-10.1); CREATININE 2.89 mg/dl (0.60-1.20); POTASSIUM 3.8 mmol/L (3.5-5.1)
--- NOTE | 2017-11-04 08:33 | Nephrology Progress Note ---
Nephrology Progress Note Date of Service: Nov 04, 2017. Subjective 47 yo female with jerilyn in the setting of vancomycin nephrotoxicity. continues to urinate well. had tunneled line placed and dialysis. volume status much improved. outpt dialysis has been arranged. Objective Date Time Temp Pulse Resp B/P (MAP) Pulse Ox O2 Delivery O2 Flow Rate FiO2 11/03/17 23:45 Room Air 11/03/17 23:44 36.8 85 16 117/74 (88) 93 Room Air 11/03/17 19:30 Room Air 11/03/17 17:49 87 164/97 (119) 11/03/17 17:49 36.9 87 22 160/85 (110) 92 Room Air 11/03/17 17:20 80 148/89 11/03/17 17:00 79 140/79 11/03/17 16:40 79 159/99 11/03/17 16:20 83 171/95 11/03/17 16:00 72 174/97 11/03/17 15:40 72 159/93 11/03/17 15:20 73 142/87 11/03/17 15:00 76 163/47 11/03/17 14:18 36.8 78 154/94 (114) 11/03/17 13:40 78 155/69 11/03/17 13:20 80 150/87 11/03/17 13:05 85 153/84 11/03/17 13:05 36.8 76 18 153/78 (103) 95 Nasal Cannula 3.0 11/03/17 12:40 Room Air 11/03/17 12:40 93 Nasal Cannula 3.0 11/03/17 12:40 36.9 87 16 149/75 (99) 93 Nasal Cannula 3.0 11/03/17 12:25 84 16 119/95 94 Nasal Cannula 3 11/03/17 12:10 82 16 152/93 93 Nasal Cannula 3 11/03/17 12:00 37.5 83 12 147/84 94 Nasal Cannula 3 11/03/17 11:50 87 14 152/90 92 Nasal Cannula 3 11/03/17 11:40 85 18 142/87 94 Nasal Cannula 3 11/03/17 11:30 88 20 131/97 94 Nasal Cannula 3 11/03/17 11:20 91 14 154/95 94 Nasal Cannula 3 11/03/17 11:11 37.1 95 18 137/86 94 Nasal Cannula 3 Physical Exam: General-aaox3 Eyes-no scleral icterus ENT-mmm Neck-supple Lungs-clear Heart-regular Abdomen-bs+ s/nt/nd Extremities-no c/c/e Neuro-nonfocal Current Inpatient Medications Medications (Trade) Dose Ordered Sig/Kimmie Route Start Time Stop Time Status Last Admin Dose Admin Lorazepam (Ativan Tab) 0.5 mg BID PRN PO 10/22/17 18:30 11/21/17 18:29 11/03/17 20:24 0.5 MG Acetaminophen (Tylenol Tab) 650 mg Q4H PRN PO 10/22/17 18:45 11/21/17 18:44 Fluoxetine HCl (Prozac Cap) 60 mg DAILY PO 10/23/17 09:00 11/22/17 08:59 11/03/17 18:23 60 MG Trazodone HCl (Desyrel Tab) 50 mg HS PO 10/22/17 21:00 11/22/17 08:59 11/03/17 22:16 50 MG Bupropion HCl (Wellbutrin-Xl Tab) 300 mg QAM PO 10/23/17 09:00 11/22/17 08:59 11/03/17 18:24 300 MG Salmeterol Xinafoate/ Fluticasone (Advair Diskus 100/50 Inh) 1 puff BID INH 10/22/17 21:00 11/21/17 20:59 11/03/17 22:16 1 PUFF Pregabalin (Lyrica Cap) 50 mg BID PO 10/22/17 21:00 11/21/17 20:59 11/03/17 22:13 50 MG Ondansetron HCl (Zofran Inj) 4 mg Q8H PRN IV 10/22/17 22:30 11/21/17 22:29 Al Hydrox/Mg Hydrox/Simethicone (Maalox Max Susp) 15 ml Q6H PRN PO 10/23/17 09:30 11/22/17 09:29 10/31/17 09:34 15 ML Albuterol (Ventolin Hfa Inhaler) 2 puffs Q4 PRN INH 10/27/17 14:45 11/26/17 14:44 11/03/17 17:56 2 PUFFS Senna/Docusate Sodium (Senokot S Tab) 1 tab BID PO 10/28/17 21:00 11/27/17 20:59 11/03/17 22:15 1 TAB Polyethylene (Miralax Powder Packet) 17 gm DAILY PRN PO 10/28/17 17:00 11/27/17 16:59 Clonidine HCl (Catapres Tab) 0.1 mg Q4 PRN PO 10/28/17 18:00 11/27/17 17:59 11/01/17 04:08 0.1 MG Hydralazine HCl (Apresoline Tab) 10 mg TID PO 10/30/17 16:00 11/29/17 15:59 11/03/17 22:14 10 MG Oxycodone/ Acetaminophen (Percocet 5-325mg Tab) 2 tab Q4H PRN PO 10/30/17 18:15 11/13/17 18:14 11/03/17 20:26 2 TAB Amlodipine Besylate (Norvasc Tab) 7.5 mg HS PO 10/31/17 21:00 11/29/17 20:59 11/03/17 22:15 7.5 MG Guaifenesin/ Dextromethorphan (Robitussin-Dm Syrup) 5 ml Q6H PRN PO 11/02/17 15:30 12/02/17 15:29 11/02/17 18:26 5 ML Hydromorphone HCl (Dilaudid Inj) 0.5 mg Q6H PRN IV 11/03/17 08:30 11/17/17 08:29 11/03/17 18:26 0.5 MG Lorazepam 0.25 mg/ Syringe 0.375 ml @ 0.5 mls/min ONE PRN IV 11/03/17 08:30 12/03/17 08:29 Last 24 Hours Test 11/04/17 06:03 White Blood Count 9.65 K/uL Red Blood Count 2.53 M/uL Hemoglobin 8.3 g/dL Hematocrit 23.7 % Mean Corpuscular Volume 93.7 fL Mean Corpuscular Hemoglobin 32.8 pg Mean Corpuscular Hemoglobin Concent 35.0 g/dl RDW Standard Deviation 47.3 fL RDW Coefficient of Variation 13.8 % Platelet Count 148 K/uL Mean Platelet Volume 10.6 fL Sodium Level 136 mmol/L Potassium Level 3.8 mmol/L Chloride Level 100 mmol/L Carbon Dioxide Level 27 mmol/L Anion Gap 9.0 mmol/L Blood Urea Nitrogen 10 mg/dl Creatinine 2.89 mg/dl Est Creatinine Clear Calc Drug Dose 23.1 ml/min Estimated GFR () 21.4 Estimated GFR (Non- 18.5 BUN/Creatinine Ratio 3.6 Random Glucose 72 mg/dl Calcium Level 9.3 mg/dl Magnesium Level 1.9 mg/dl Iron Level 30 mcg/dl Total Iron Binding Capacity 226 mcg/dl Transferrin 179 mg/dl Transferrin % Saturation 12 % Assessment & Plan [id number]-thought to be vancomycin nephrotoxicity and hopeful she will eventually recover. for now, will be doing m-w- dialysis at local dialysis unit and weekly labs looking for recovery. diuresed well and breathing much better.
[2017-11-04] MEDS: FLUTICASONE/SALMETEROL 100/50 (ADVAIR) 14 PUFF/1 INHALER INH SCH ×2 (08:37→21:30)
[2017-11-04] MEDS: HydrALAZINE 10 MG TAB PO SCH ×3 (08:38→21:33)
[2017-11-04] MEDS: DOCUSATE SODIUM/SENNA 50/8.6MG TAB PO SCH ×2 (08:38→21:30)
[2017-11-04 08:39] VITALS: BP 146/79; PULSE 94; TEMP 37.3; O2SAT 90
[2017-11-04] MEDS: LORAZEPAM 0.5 MG TAB PO PRN (08:42)
[2017-11-04] MEDS: PREGABALIN 50 MG CAP PO SCH ×2 (08:42→21:41)
[2017-11-04] MEDS: OXYCODONE/ACETAMINOPHEN 5-325 TAB PO PRN ×4 (08:43→21:41)
[2017-11-04] MEDS: BuPROPion XL 300 MG TABCR PO SCH (09:52)
[2017-11-04] MEDS: FLUOXETINE HCL 20 MG CAP PO SCH (09:53)
--- NOTE | 2017-11-04 13:28 | Progress Note ---
Internal Med Progress Note Date of Service: Nov 04, 2017. Provider Documentation: SUBJECTIVE: The patient was seen and examined Not feeling well and very anxious Complains of neck pain and swelling at the procedure site Neck swelling and pain are much better Denies any more SOB OBJECTIVE: Vital Signs-as noted below Exam: General-No distress at rest Anxious about the kidney function Eyes-Normal ENT-normal Neck-Swelling at the right lower neck-improving Lungs-Minimal crackles at the left base Heart-Regular Abdomen-Benign,no masses,bowel sound present Extremities-No edema Neuro-AAOx3 Examination of the Back wound:: Wounds much better no infection Lab data as noted below. ASSESSMENT & PLAN: This is a 47 year old female with a PMH of mood disorder, fibromyalgia, asthma/ COPD, tobacco use disorder, recent lumbar surgery (decompression/fusion) - presents with pus draining from the surgical site. CARLOS-Vancomycin Toxicity Likely secondary to Vancomycin Increased Trough level of vancomycin of > 70 Nephrology consulted -appreciate input IV fluid and monitor PRP.US -negative Requiring HD now and making adequet amount of urine Fluid restriction to 1500mls daily S/P Permcath placement today 11/03/17 Some swelling at the local site -a little better today 11/04/17 Still has considerable right lower neck swelling and pain Transport to and from the Dialysis center not yet resolved SOB is a little better Likely to stay over the WE for further stabilization HTN Will need medications to control HTN Remains stable with medication Post-operative Fluid collection: Likely Seroma and doubt any Infection -fluid filled collection in the L4-S1 area -Lumbar CT already performed::1. 9 x 4 x 3.5 cm slightly hyperdense collection extending from L4 through S1 involving the subcutaneous fat exclusively.. 2. This may represent a postprocedural hematoma versus infection 3. Operative changes consistent with an L4-L5 laminectomy and fusion. No evidence for bony or posterior arch involvement. -on broad spectrum antibiotics, Vanco + Zosyn -appreciate ID input -Discussed with Dr Dykes who reviewed the film and thinks the collection likely to be seroma -Antibiotics discontinued The wound is cleared of any infection now Will need OP appointment with Dr Obando on discharge COPD/Asthma Continue home inhalers No acute issue Mood Disorder Continue home medications Anxiety is reasonably controlled Fibromyalgia Continue home medications No acute issue DVT ppx SCDs, avoiding chemical prophylaxis on the off chance that this is a hematoma FULL CODE (Note from My previous Follow Up) Has had a long discussion with the patient. Explained the current disease condition,explained the need for Vancomycin and the rare significant adverse reaction it can cause The renal function can get worse before it gets better May need short term Dialysis Very anxious but understanding Discussed with the Ortho Dr Obando #[phone] Will need to stay over the WE for further stabilization of her condition Transportation to and from the Dialysis center not yet resolved SOB and neck swelling have to improve before discharge Discussed with the patient in detailed about the initial Dose of Vancomycin given by the Pharmacist based on her weight That is the cause for her Renal failure and requiring Hemo Dialysis now Food Preservation Scientist is involve in the care from the Day1 of Renal failure Kidney function is expected to Improve subsequently We will be doing everything possible to avoid this kind or situation to anyone else Answered all of her question She is very understanding. Vital Signs: Date Time Temp Pulse Resp B/P (MAP) Pulse Ox O2 Delivery O2 Flow Rate FiO2 11/04/17 15:30 36.6 77 16 132/79 (96) 91 Room Air 11/04/17 08:39 37.3 94 16 146/79 (101) 90 Room Air 11/04/17 08:00 Room Air 11/03/17 23:45 Room Air 11/03/17 23:44 36.8 85 16 117/74 (88) 93 Room Air 11/03/17 19:30 Room Air 11/03/17 17:49 87 164/97 (119) 11/03/17 17:49 36.9 87 22 160/85 (110) 92 Room Air 11/03/17 17:20 80 148/89 11/03/17 17:00 79 140/79 11/03/17 16:40 79 159/99 11/03/17 16:20 83 171/95 Lab Results: Results Past 24 Hours Test 11/04/17 06:03 Range/Units White Blood Count 9.65 4.8-10.8 K/uL Red Blood Count 2.53 4.2-5.4 M/uL Hemoglobin 8.3 12.0-16.0 g/dL Hematocrit 23.7 37-47 % Mean Corpuscular Volume 93.7 80-100 fL Mean Corpuscular Hemoglobin 32.8 25-34 pg Mean Corpuscular Hemoglobin Concent 35.0 32-36 g/dl RDW Standard Deviation 47.3 36.4-46.3 fL RDW Coefficient of Variation 13.8 11.5-14.5 % Platelet Count 148 130-400 K/uL Mean Platelet Volume 10.6 7.4-10.4 fL Sodium Level 136 136-145 mmol/L Potassium Level 3.8 3.5-5.1 mmol/L Chloride Level 100 98-107 mmol/L Carbon Dioxide Level 27 21-32 mmol/L Anion Gap 9.0 3-11 mmol/L Blood Urea Nitrogen 10 7-18 mg/dl Creatinine 2.89 0.60-1.20 mg/dl Est Creatinine Clear Calc Drug Dose 23.1 ml/min Estimated GFR () 21.4 Estimated GFR (Non- 18.5 BUN/Creatinine Ratio 3.6 10-20 Random Glucose 72 70-99 mg/dl Calcium Level 9.3 8.5-10.1 mg/dl Magnesium Level 1.9 1.8-2.4 mg/dl Iron Level 30 35-150 mcg/dl Total Iron Binding Capacity 226 250-450 mcg/dl Transferrin 179 200-360 mg/dl Transferrin % Saturation 12 15-50 %
[2017-11-04 15:30] VITALS: BP 132/79; PULSE 77; TEMP 36.6; O2SAT 91
[2017-11-04 15:45] VITALS: O2SAT 91
--- NOTE | 2017-11-04 16:22 | DIAGNOSTIC IMAGING REPORT ---
CHEST 2 VIEWS ROUTINE CLINICAL HISTORY: CHF COMPARISON STUDY: November 01, 2017 FINDINGS: The heart is mildly enlarged. There is a right internal jugular dual-lumen central venous catheter. There is improving congestive failure with decreasing bilateral pleural effusions and improved aeration the lung bases.[ IMPRESSION: Improving congestive failure with resolving bilateral pleural effusions and improving aeration of the lung bases Electronically signed by: Arun Keenan M.D. 11/04/2017 4:21 PM Dictated Date/Time: 11/04/2017 4:20 PM
[2017-11-04] MEDS: FERROUS SULFATE 325 MG TAB PO SCH (18:01)
[2017-11-04] MEDS ORDERED: CALCIUM CARBONATE 500 MG CHEWABLE PO PRN (21:15)
[2017-11-04] MEDS: TRAZODONE HCL 50 MG TAB PO SCH (21:31)
[2017-11-04] MEDS: AMLODIPINE BESYLATE 5 MG TAB PO SCH (21:32)
[2017-11-04 23:11] VITALS: BP 149/84; PULSE 63; TEMP 36.6; O2SAT 95
[2017-11-05] MEDS: OXYCODONE/ACETAMINOPHEN 5-325 TAB PO PRN (06:12)
[2017-11-05 06:36] LABS: CALCIUM 9.6 mg/dl (8.5-10.1); CREATININE 3.88 mg/dl (0.60-1.20); POTASSIUM 3.9 mmol/L (3.5-5.1)
[2017-11-05 07:44] VITALS: BP 161/79; PULSE 75; TEMP 36.9; O2SAT 91
[2017-11-05] MEDS: FERROUS SULFATE 325 MG TAB PO SCH ×3 (08:30→17:50)
[2017-11-05] MEDS: HydrALAZINE 10 MG TAB PO SCH ×3 (08:49→21:14)
[2017-11-05] MEDS: FLUTICASONE/SALMETEROL 100/50 (ADVAIR) 14 PUFF/1 INHALER INH SCH ×2 (08:49→21:13)
[2017-11-05] MEDS: BuPROPion XL 300 MG TABCR PO SCH (08:50)
[2017-11-05] MEDS: FLUOXETINE HCL 20 MG CAP PO SCH (08:50)
[2017-11-05] MEDS: DOCUSATE SODIUM/SENNA 50/8.6MG TAB PO SCH ×2 (08:50→21:13)
[2017-11-05] MEDS: PREGABALIN 50 MG CAP PO SCH ×2 (08:55→21:20)
[2017-11-05] MEDS ORDERED: HYDROmorphone INJ 0.5 MG/0.5 ML SYR IV ONE (10:14)
[2017-11-05] MEDS: HYDROmorphone INJ 0.5 MG/0.5 ML SYR IV PRN ×2 (10:23→19:47)
--- NOTE | 2017-11-05 11:44 | Progress Note ---
Internal Med Progress Note Date of Service: Nov 05, 2017. Provider Documentation: SUBJECTIVE: The patient was seen and examined Feels better today Complains of neck pain and swelling at the procedure site Neck swelling a little worse today Denies any more SOB OBJECTIVE: Vital Signs-as noted below Exam: General-No distress at rest Anxious about the kidney function Eyes-Normal ENT-normal Neck-Swelling at the right lower neck-improving Lungs-Minimal crackles at the left base Heart-Regular Abdomen-Benign,no masses,bowel sound present Extremities-No edema Neuro-AAOx3 Examination of the Back wound:: Wounds much better -normal no infection Lab data as noted below. ASSESSMENT & PLAN: This is a 47 year old female with a PMH of mood disorder, fibromyalgia, asthma/ COPD, tobacco use disorder, recent lumbar surgery (decompression/fusion) - presents with pus draining from the surgical site. CARLOS-Vancomycin Toxicity Likely secondary to Vancomycin Increased Trough level of vancomycin of > 70 Nephrology consulted -appreciate input IV fluid and monitor PRP.US -negative Requiring HD now and making adequet amount of urine Fluid restriction to 1500mls daily S/P Permcath placement today 11/03/17 Some swelling at the local site -a little better today 11/04/17 Still has considerable right lower neck swelling and pain Transport to and from the Dialysis center not yet resolved SOB is a little better and CXR on 11/04/17-much improved Likely to stay over the WE for further stabilization Creatinine is a little worse today -expected D/W Nephrology -Dialysis tomorrow and likely discharge tomorrow HTN Will need medications to control HTN Remains stable with medication At Upper side today Post-operative Fluid collection: Likely Seroma and doubt any Infection -fluid filled collection in the L4-S1 area -Lumbar CT already performed::1. 9 x 4 x 3.5 cm slightly hyperdense collection extending from L4 through S1 involving the subcutaneous fat exclusively.. 2. This may represent a postprocedural hematoma versus infection 3. Operative changes consistent with an L4-L5 laminectomy and fusion. No evidence for bony or posterior arch involvement. -on broad spectrum antibiotics, Vanco + Zosyn -appreciate ID input -Discussed with Dr Dykes who reviewed the film and thinks the collection likely to be seroma -Antibiotics discontinued The wound is cleared of any infection now Will need OP appointment with Dr Obando on discharge COPD/Asthma Continue home inhalers No acute issue Mood Disorder Continue home medications Anxiety is reasonably controlled Fibromyalgia Continue home medications No acute issue DVT ppx SCDs, avoiding chemical prophylaxis on the off chance that this is a hematoma FULL CODE (Note from My previous Follow Up) Has had a long discussion with the patient. Explained the current disease condition,explained the need for Vancomycin and the rare significant adverse reaction it can cause The renal function can get worse before it gets better May need short term Dialysis Very anxious but understanding Discussed with the Ortho Dr Obando #[phone] Will need to stay over the WE for further stabilization of her condition Transportation to and from the Dialysis center not yet resolved SOB and neck swelling have to improve before discharge Discussed with the patient in detailed about the initial Dose of Vancomycin given by the Pharmacist based on her weight That is the cause for her Renal failure and requiring Hemo Dialysis now Volunteer Assistant is involve in the care from the Day1 of Renal failure Kidney function is expected to Improve subsequently We will be doing everything possible to avoid this kind or situation to anyone else Answered all of her question She is very understanding. Vital Signs: Date Time Temp Pulse Resp B/P (MAP) Pulse Ox O2 Delivery O2 Flow Rate FiO2 11/05/17 08:26 Room Air 11/05/17 07:44 36.9 75 18 161/79 (106) 91 Room Air 11/04/17 23:37 Room Air 11/04/17 23:11 36.6 63 15 149/84 (105) 95 Room Air 11/04/17 15:45 91 Room Air 11/04/17 15:30 36.6 77 16 132/79 (96) 91 Room Air Lab Results: Results Past 24 Hours Test 11/05/17 05:39 Range/Units Sodium Level 137 136-145 mmol/L Potassium Level 3.9 3.5-5.1 mmol/L Chloride Level 102 98-107 mmol/L Carbon Dioxide Level 28 21-32 mmol/L Anion Gap 7.0 3-11 mmol/L Blood Urea Nitrogen 16 7-18 mg/dl Creatinine 3.88 0.60-1.20 mg/dl Est Creatinine Clear Calc Drug Dose 17.2 ml/min Estimated GFR () 15.0 Estimated GFR (Non- 12.9 BUN/Creatinine Ratio 4.1 10-20 Random Glucose 75 70-99 mg/dl Calcium Level 9.6 8.5-10.1 mg/dl
[2017-11-05 13:28] VITALS: BP 149/89; PULSE 77
[2017-11-05 14:45] VITALS: BP 164/97; PULSE 76; TEMP 36.7; O2SAT 96
[2017-11-05] MEDS ORDERED: LORAZEPAM 0.5 MG TAB PO ONE (14:59)
[2017-11-05 16:00] VITALS: O2SAT 96
[2017-11-05 21:10] VITALS: BP 163/93; PULSE 71; O2SAT 97
[2017-11-05] MEDS: AMLODIPINE BESYLATE 5 MG TAB PO SCH (21:14)
[2017-11-05] MEDS: TRAZODONE HCL 50 MG TAB PO SCH (21:14)
[2017-11-05 23:02] VITALS: BP 159/83; PULSE 73; TEMP 36.9; O2SAT 93
[2017-11-06] VITALS (20 sets, daily range): BP systolic 110–160; BP diastolic 70–95; PULSE 69–89; TEMP 36.7–37.4; O2SAT 96
[2017-11-06 04:37] LABS: HEMATOCRIT 24.5 % (37-47); HEMOGLOBIN 8.5 g/dL (12.0-16.0); MEAN CELL VOLUME 92.8 fL (80-100); MEAN CORPUSCULAR HEMOGLOBIN 32.2 pg (25-34); MEAN CORPUSCULAR HGB CONC 34.7 g/dl (32-36); MEAN PLATELET VOLUME 9.8 fL (7.4-10.4); PLATELET COUNT 204 K/uL (130-400); RED CELL DISTRIBUTION WIDTH CV 14.1 % (11.5-14.5); RED CELL DISTRIBUTION WIDTH SD 47.5 fL (36.4-46.3); WHITE BLOOD COUNT 9.33 K/uL (4.8-10.8)
[2017-11-06 04:58] LABS: CALCIUM 9.1 mg/dl (8.5-10.1); CREATININE 4.41 mg/dl (0.60-1.20)
[2017-11-06] MEDS: FLUTICASONE/SALMETEROL 100/50 (ADVAIR) 14 PUFF/1 INHALER INH SCH (07:42)
[2017-11-06] MEDS: BuPROPion XL 300 MG TABCR PO SCH (07:43)
[2017-11-06] MEDS: FERROUS SULFATE 325 MG TAB PO SCH (07:43)
[2017-11-06] MEDS: DOCUSATE SODIUM/SENNA 50/8.6MG TAB PO SCH (07:44)
[2017-11-06] MEDS: FLUOXETINE HCL 20 MG CAP PO SCH (07:44)
[2017-11-06] MEDS: PREGABALIN 50 MG CAP PO SCH (07:48)
[2017-11-06] MEDS: OXYCODONE/ACETAMINOPHEN 5-325 TAB PO PRN (07:49)
--- NOTE | 2017-11-06 08:02 | Anesthesiology Progress Note ---
Anesthesia Post Op Note Date & Time Nov 06, 2017 at 08:01 Vital Signs Pain Intensity: 5.0 Vital Signs Past 12 Hours Date Time Temp Pulse Resp B/P (MAP) Pulse Ox O2 Delivery O2 Flow Rate FiO2 11/06/17 07:45 37.4 14 110/80 (90) 96 Room Air 11/06/17 07:10 Room Air 11/05/17 23:53 Room Air 11/05/17 23:02 36.9 73 15 159/83 (108) 93 Room Air 11/05/17 21:10 71 163/93 (116) 97 Notes Mental Status: alert / awake / arousable, participated in evaluation Pt Amnestic to Procedure: Yes Nausea / Vomiting: adequately controlled Pain: adequately controlled Airway Patency, RR, SpO2: stable & adequate BP & HR: stable & adequate Hydration State: stable & adequate Anesthetic Complications: no major complications apparent
--- NOTE | 2017-11-06 08:46 | Nephrology Progress Note ---
Nephrology Progress Note Date of Service: Nov 06, 2017. Subjective 47 yo female with jerilyn in the setting of vancomycin nephrotoxicity. continues to urinate well. on a regular diet and k levels are good. pt was noticing muscle twitching prior to admission. otherwise good. still with some abdominal bloating. Objective Date Time Temp Pulse Resp B/P (MAP) Pulse Ox O2 Delivery O2 Flow Rate FiO2 11/06/17 08:03 96 Room Air 11/06/17 07:45 37.4 14 110/80 (90) 96 Room Air 11/06/17 07:10 Room Air 11/05/17 23:53 Room Air 11/05/17 23:02 36.9 73 15 159/83 (108) 93 Room Air 11/05/17 21:10 71 163/93 (116) 97 11/05/17 16:00 96 Room Air 11/05/17 14:45 36.7 76 16 164/97 (119) 96 Room Air 11/05/17 13:28 77 149/89 (109) Physical Exam: General-aaox3 Eyes-no scleral icterus ENT-mmm Neck-supple Lungs-cta Heart-rrr Abdomen-bs+ s/nt/nd Extremities-no c/c/e Neuro-nonfocal Current Inpatient Medications Medications (Trade) Dose Ordered Sig/Kimmie Route Start Time Stop Time Status Last Admin Dose Admin Lorazepam (Ativan Tab) 0.5 mg BID PRN PO 10/22/17 18:30 11/21/17 18:29 11/04/17 08:42 0.5 MG Acetaminophen (Tylenol Tab) 650 mg Q4H PRN PO 10/22/17 18:45 11/21/17 18:44 Fluoxetine HCl (Prozac Cap) 60 mg DAILY PO 10/23/17 09:00 11/22/17 08:59 11/06/17 07:44 60 MG Trazodone HCl (Desyrel Tab) 50 mg HS PO 10/22/17 21:00 11/22/17 08:59 11/05/17 21:14 50 MG Bupropion HCl (Wellbutrin-Xl Tab) 300 mg QAM PO 10/23/17 09:00 11/22/17 08:59 11/06/17 07:43 300 MG Salmeterol Xinafoate/ Fluticasone (Advair Diskus 100/50 Inh) 1 puff BID INH 10/22/17 21:00 11/21/17 20:59 11/06/17 07:42 1 PUFF Pregabalin (Lyrica Cap) 50 mg BID PO 10/22/17 21:00 11/21/17 20:59 11/06/17 07:48 50 MG Ondansetron HCl (Zofran Inj) 4 mg Q8H PRN IV 10/22/17 22:30 11/21/17 22:29 Al Hydrox/Mg Hydrox/Simethicone (Maalox Max Susp) 15 ml Q6H PRN PO 10/23/17 09:30 11/22/17 09:29 10/31/17 09:34 15 ML Albuterol (Ventolin Hfa Inhaler) 2 puffs Q4 PRN INH 10/27/17 14:45 11/26/17 14:44 11/03/17 17:56 2 PUFFS Senna/Docusate Sodium (Senokot S Tab) 1 tab BID PO 10/28/17 21:00 11/27/17 20:59 11/06/17 07:44 1 TAB Polyethylene (Miralax Powder Packet) 17 gm DAILY PRN PO 10/28/17 17:00 11/27/17 16:59 Clonidine HCl (Catapres Tab) 0.1 mg Q4 PRN PO 10/28/17 18:00 11/27/17 17:59 11/01/17 04:08 0.1 MG Hydralazine HCl (Apresoline Tab) 10 mg TID PO 10/30/17 16:00 11/29/17 15:59 11/05/17 21:14 10 MG Oxycodone/ Acetaminophen (Percocet 5-325mg Tab) 2 tab Q4H PRN PO 10/30/17 18:15 11/13/17 18:14 11/06/17 07:49 2 TAB Amlodipine Besylate (Norvasc Tab) 7.5 mg HS PO 10/31/17 21:00 11/29/17 20:59 11/05/17 21:14 7.5 MG Guaifenesin/ Dextromethorphan (Robitussin-Dm Syrup) 5 ml Q6H PRN PO 2/22/18 15:30 12/02/17 15:29 11/02/17 18:26 5 ML Hydromorphone HCl (Dilaudid Inj) 0.5 mg Q6H PRN IV 11/03/17 08:30 11/17/17 08:29 11/05/17 19:47 0.5 MG Lorazepam 0.25 mg/ Syringe 0.375 ml @ 0.5 mls/min ONE PRN IV 11/03/17 08:30 12/03/17 08:29 Ferrous Sulfate (Feosol Tab) 325 mg BIDM PO 11/04/17 17:45 12/04/17 17:44 11/06/17 07:43 325 MG Calcium Carbonate (Tums Chew Tab) 500 mg BID PRN PO 11/04/17 21:15 12/04/17 21:14 11/04/17 21:29 500 MG Iron Sucrose 100 mg/Syringe 5 ml @ 1 mls/min ONE ONCE IV 11/06/17 09:00 11/06/17 09:04 Last 24 Hours Test 11/06/17 04:21 White Blood Count 9.33 K/uL Red Blood Count 2.64 M/uL Hemoglobin 8.5 g/dL Hematocrit 24.5 % Mean Corpuscular Volume 92.8 fL Mean Corpuscular Hemoglobin 32.2 pg Mean Corpuscular Hemoglobin Concent 34.7 g/dl RDW Standard Deviation 47.5 fL RDW Coefficient of Variation 14.1 % Platelet Count 204 K/uL Mean Platelet Volume 9.8 fL Sodium Level 139 mmol/L Potassium Level 4.0 mmol/L Chloride Level 102 mmol/L Carbon Dioxide Level 30 mmol/L Anion Gap 7.0 mmol/L Blood Urea Nitrogen 22 mg/dl Creatinine 4.41 mg/dl Est Creatinine Clear Calc Drug Dose 15.1 ml/min Estimated GFR () 12.8 Estimated GFR (Non- 11.1 BUN/Creatinine Ratio 5.0 Random Glucose 81 mg/dl Calcium Level 9.1 mg/dl Assessment & Plan [id number]-thought to be vancomycin nephrotoxicity and hopeful she will eventually recover. for dialysis today on a 4k bath. to attempt one liter fluid removal since she still feels bloated but volume status overall much improved. Anemia-does have low iron levels and to give venofer on dialysis.
[2017-11-06] MEDS ORDERED: IRON SUCROSE INJ 100 MG in SYRINGE 0 ML IV ONE (09:00)
[2017-11-06] MEDS: HydrALAZINE 10 MG TAB PO SCH ×2 (11:49→14:29)
[2017-11-06] MEDS: HYDROmorphone INJ 0.5 MG/0.5 ML SYR IV PRN (14:36)
--- NOTE | 2017-11-06 14:53 | Progress Note ---
Internal Med Progress Note Date of Service: Nov 06, 2017. Provider Documentation: SUBJECTIVE: The patient was seen and examined Feels better today Complains of neck pain and swelling at the procedure site Neck swelling is better but pain is worse Denies any more SOB Ready to be discharged OBJECTIVE: Vital Signs-as noted below Exam: General-No distress at rest Anxious about the kidney function Eyes-Normal ENT-normal Neck-Swelling at the right lower neck-much improved Lungs-Minimal crackles at the left base Heart-Regular Abdomen-Benign,no masses,bowel sound present Extremities-No edema Neuro-AAOx3 Examination of the Back wound:: Wounds much better -normal no infection Lab data as noted below. ASSESSMENT & PLAN: This is a 47 year old female with a PMH of mood disorder, fibromyalgia, asthma/ COPD, tobacco use disorder, recent lumbar surgery (decompression/fusion) - presents with pus draining from the surgical site. CARLOS-Vancomycin Toxicity Likely secondary to Vancomycin Increased Trough level of vancomycin of > 70 Nephrology consulted -appreciate input IV fluid and monitor PRP.US -negative Requiring HD now and making adequet amount of urine Fluid restriction to 1500mls daily S/P Permcath placement today 11/03/17 Some swelling at the local site -a little better today 11/04/17 Still has considerable right lower neck swelling and pain Transport to and from the Dialysis center not yet resolved SOB is a little better and CXR on 11/04/17-much improved Likely to stay over the WE for further stabilization Creatinine is a little worse today -expected D/W Nephrology -Dialysis tomorrow -11/06/17 and likely discharge tomorrow Clinically stable with any symptoms Ready to be discharged HTN Will need medications to control HTN Remains stable with medication At Upper side 11/05/17 Advised to continue BP medications as directed Post-operative Fluid collection: Likely Seroma and doubt any Infection -fluid filled collection in the L4-S1 area -Lumbar CT already performed::1. 9 x 4 x 3.5 cm slightly hyperdense collection extending from L4 through S1 involving the subcutaneous fat exclusively.. 2. This may represent a postprocedural hematoma versus infection 3. Operative changes consistent with an L4-L5 laminectomy and fusion. No evidence for bony or posterior arch involvement. -on broad spectrum antibiotics, Vanco + Zosyn -appreciate ID input -Discussed with Dr Dykes who reviewed the film and thinks the collection likely to be seroma -Antibiotics discontinued The wound is cleared of any infection now Will need OP appointment with Dr Obando on discharge COPD/Asthma Continue home inhalers No acute issue Mood Disorder Continue home medications Anxiety is reasonably controlled Fibromyalgia Continue home medications No acute issue DVT ppx SCDs, avoiding chemical prophylaxis on the off chance that this is a hematoma FULL CODE (Note from My previous Follow Up) Has had a long discussion with the patient. Explained the current disease condition,explained the need for Vancomycin and the rare significant adverse reaction it can cause The renal function can get worse before it gets better May need short term Dialysis Very anxious but understanding Discussed with the Ortho Dr Obando #[phone] Will need to stay over the WE for further stabilization of her condition Transportation to and from the Dialysis center not yet resolved SOB and neck swelling have to improve before discharge Discussed with the patient in detailed about the initial Dose of Vancomycin given by the Pharmacist based on her weight That is the cause for her Renal failure and requiring Hemo Dialysis now Staff Services Manager is involve in the care from the Day1 of Renal failure Kidney function is expected to Improve subsequently We will be doing everything possible to avoid this kind or situation to anyone else Answered all of her question She is very understanding. Vital Signs: Date Time Temp Pulse Resp B/P (MAP) Pulse Ox O2 Delivery O2 Flow Rate FiO2 11/06/17 14:30 89 148/84 (105) 11/06/17 13:26 36.7 82 14 160/90 (113) 96 Room Air 11/06/17 12:23 37.2 73 149/89 (109) 11/06/17 12:00 70 149/86 11/06/17 11:45 69 136/76 11/06/17 11:30 71 121/70 11/06/17 11:15 70 121/78 11/06/17 11:00 73 114/79 11/06/17 10:45 73 138/78 11/06/17 10:30 72 142/84 11/06/17 10:15 78 143/83 11/06/17 10:00 75 139/86 11/06/17 09:45 77 129/87 11/06/17 09:30 80 143/78 11/06/17 09:15 76 138/87 11/06/17 09:09 79 136/95 11/06/17 09:07 37.4 73 14 96 Room Air 11/06/17 09:00 37.1 80 144/93 (110) 11/06/17 08:03 96 Room Air 11/06/17 07:45 37.4 76 14 110/80 (90) 96 Room Air 11/06/17 07:10 Room Air 11/05/17 23:53 Room Air 11/05/17 23:02 36.9 73 15 159/83 (108) 93 Room Air 11/05/17 21:10 71 163/93 (116) 97 11/05/17 16:00 96 Room Air Lab Results: Results Past 24 Hours Test 11/06/17 04:21 Range/Units White Blood Count 9.33 4.8-10.8 K/uL Red Blood Count 2.64 4.2-5.4 M/uL Hemoglobin 8.5 12.0-16.0 g/dL Hematocrit 24.5 37-47 % Mean Corpuscular Volume 92.8 80-100 fL Mean Corpuscular Hemoglobin 32.2 25-34 pg Mean Corpuscular Hemoglobin Concent 34.7 32-36 g/dl RDW Standard Deviation 47.5 36.4-46.3 fL RDW Coefficient of Variation 14.1 11.5-14.5 % Platelet Count 204 130-400 K/uL Mean Platelet Volume 9.8 7.4-10.4 fL Sodium Level 139 136-145 mmol/L Potassium Level 4.0 3.5-5.1 mmol/L Chloride Level 102 98-107 mmol/L Carbon Dioxide Level 30 21-32 mmol/L Anion Gap 7.0 3-11 mmol/L Blood Urea Nitrogen 22 7-18 mg/dl Creatinine 4.41 0.60-1.20 mg/dl Est Creatinine Clear Calc Drug Dose 15.1 ml/min Estimated GFR () 12.8 Estimated GFR (Non- 11.1 BUN/Creatinine Ratio 5.0 10-20 Random Glucose 81 70-99 mg/dl Calcium Level 9.1 8.5-10.1 mg/dl
[2017-11-06] MEDS ORDERED: HYDR-5688 PO (14:57)
[2017-11-06] MEDS ORDERED: NRV5 PO (14:57)
[2017-11-06] MEDS ORDERED: APR10 PO (14:57)
--- NOTE | 2017-11-06 15:05 | Discharge Instructions ---
Discharge Instructions Date of Service Nov 06, 2017. Admission Reason for Admission: Postoperative Infection Discharge Discharge Diagnosis / Problem: Vancomycin Nephrotoxicity-requiruing HD,HTN, Fibromyalgia,Anxiety/depression Discharge Goals Goal(s): Prevent Disease Progression Activity Recommendations Activity Limitations: resume your previous activity (Continue Hemodialysis as advised) . Instructions / Follow-Up Instructions / Follow-Up DR Tolliver on 11/10/17 at 2 PM(Dr Lo is away).Keep doing Dialysis as per instruction from Nephrology Current Hospital Diet Patient's current hospital diet: Regular Diet, Renal Diet Discharge Diet Recommended Diet: Regular Diet Procedures Procedures Performed: Removal of Temporary Dialysis Catheter, Insertion of Perm Catheter, Right Internal Jugular Approach, Ultrasound localization of Right internal Jugular Vein, Fluoroscopy for Positioning. Pending Studies Studies pending at discharge: no Medical Emergencies . Who to Call and When: Medical Emergencies: If at any time you feel your situation is an emergency, please call 911 immediately. . Non-Emergent Contact Non-Emergency issues call your: Primary Care Provider . Past History Medical & Surgical History: (1) Vancomycin-induced nephrotoxicity (2) Postoperative infection (3) Asthma (4) Fibromyalgia . "Provider Documentation" section prepared by [facility]. . VTE Core Measure Inpt VTE Proph given/why not?: Other Anticoagulation, SCD's
[2017-11-06] MEDS ORDERED: NURSING VERBAL MED ORDER ONE (15:45)
[2017-11-06] MEDS ORDERED: AMLODIPINE BESYLATE 5 MG TAB PO SCH (15:45)
[2017-11-06] MEDS ORDERED: HydrALAZINE 10 MG TAB PO SCH (15:45)
[2017-11-06] MEDS ORDERED: NORCO 5/325MG HOME PACK PO SCH (16:00)
--- NOTE | 2017-11-07 11:08 | Discharge Summary ---
Discharge Summary Date of Service Nov 07, 2017. Discharge Summary Admission Date: Oct 22, 2017 at 18:37 Discharge Date: Nov 06, 2017 Discharge Disposition: Home with services Principal Diagnosis: Vancomycin Nephrotoxicity-requiring HD,HTN,Fibromyalgia,Anxiety/depression Secondary Diagnoses/Problems: Please see H&P and Hospital Progress note Procedures: PermCath placement Consultations: ID,Nephrology and Vascular Medication Reconciliation New Medications: Amlodipine Besylate (Amlodipine Besylate) 5 Mg Tab 7.5 MG PO HS for 30 Days, #45 TAB Hydralazine HCl (Hydralazine HCl) 10 Mg Tab 10 MG PO TID for 30 Days, #90 TAB Changed Medications: Hydrocodone/Acetaminophen 5MG/325MG (Risco 5MG/325MG) Tab 1 TABLET PO Q4 PRN for Pain for 10 Days, #30 TAB (Changed from: Q8) Continued Medications: Albuterol Hfa (Ventolin Hfa) 200 Puffs/34891 Mcg Aers 2-4 PUFFS INH Q6H PRN for SOB/Wheezing, #1 INHALER Bupropion Hcl (Bupropion Hcl Xl) 300 Mg Tab 1 TAB PO QAM for 30 Days, #30 TAB 2 Refills Fluoxetine Hcl (Prozac) 20 Mg Cap 20 MG PO DAILY, CAP TAKE ONE 20 MG CAPSULE ALONG WITH ONE 40 MG CAPSULE TO EQAUL DAILY DOSE OF 60 MG. Fluoxetine Hcl (Prozac) 40 Mg Cap 40 MG PO, CAP TAKE ONE 40 MG CAPSULE ALONG WITH ONE 20 MG CAPSULE TO EQAUL DAILY DOSE OF 60 MG. Fluticasone Prop/Salmeterol (Advair Diskus 100-50 Mcg/Dose) 14 Puff/1 Inhaler Aerp 1 INHA INH BID Ipratropium-Albuterol (Combivent Respimat) 1 Aer Aer 1 PUFF INH QID PRN for SOB/Wheezing, INH Ipratropium-Albuterol (Duoneb) 3 Ml Nebu 1 TREATMENT INH UD PRN for SOB/Wheezing, INHA Loratadine (Claritin) 10 Mg Cap 1 CAP PO DAILY for 30 Days, #30 CAP 3 Refills Lorazepam (Ativan) 0.5 Mg Tab 0.5 MG PO BID PRN for Anxiety, TAB Pregabalin (Lyrica) 25 Mg Cap 50 MG PO BID, CAP Trazodone Hcl (Trazodone) 50 Mg Tab 50 MG PO HS, TAB Admission Information HPI (per Admitting provider): This is a 47 year old female with a PMH of mood disorder, fibromyalgia, asthma/ COPD, tobacco use disorder, recent lumbar surgery (decompression/fusion) - presents with pus draining from the surgical site. She presented to the ED because of continued pain and worsening pus drainage. Upon presentation, had lumbar CT performed, showing a collection of fluid around the L4-S1 area. [facility] and recommendation made to admit patient and start IV antibiotics. Outpatient f/u with surgery recommended. Patient agreeable, she is doing fine, able to ambulate. Area surrounding the site is improving, warm/red/fluid filled area on the lower back. Past Medical/Surgical History Medical Problems: (1) Asthma Status: Chronic (2) Fibromyalgia Status: Chronic Family History Patient reports no known family medical history. Social History Smoking Status: Current Every Day Smoker Marital Status: single Occupational Status: employed Allergies Coded Allergies: Latex1 -Allergic Contact Dermititis (Unverified Adverse Reaction, Unknown , ITCHY, 10/22/17) Home Medications Scheduled Bupropion Hcl (Bupropion Hcl Xl), 1 TAB PO QAM Docusate Sodium (Colace), 1 CAP PO BID Fluoxetine Hcl (Prozac), 20 MG PO DAILY Fluticasone Prop/Salmeterol (Advair Diskus 100-50 Mcg/Dose), 1 INHA INH BID Loratadine (Claritin), 1 CAP PO DAILY Pregabalin (Lyrica), 50 MG PO BID Trazodone Hcl (Trazodone), 50 MG PO HS Scheduled PRN Albuterol Hfa (Ventolin Hfa), 2-4 PUFFS INH Q6H PRN for SOB/Wheezing Hydrocodone/Acetaminophen 5MG/325MG (Risco 5MG/325MG), 1 TABLET PO Q8 PRN for Pain Ipratropium-Albuterol (Combivent Respimat), 1 PUFF INH QID PRN for SOB/Wheezing Ipratropium-Albuterol (Duoneb), 1 TREATMENT INH UD PRN for SOB/Wheezing Lorazepam (Ativan), 0.5 MG PO BID PRN for Anxiety Miscellaneous Medications Fluoxetine Hcl (Prozac), 40 MG PO Review of Systems Constitutional: No fever, No chills, No weakness, No fatigue Eyes: No worsening of vision ENT: No hearing loss Respiratory: No cough, No sputum, No wheezing, No shortness of breath, No dyspnea on exertion, No dyspnea at rest, No hemoptysis Cardiovascular: No chest pain, No edema Musculoskeletal: + joint pain (low back pain) Genitourinary - Female: No dysuria, No urinary frequency, No urinary urgency, No urinary incontinence, No urinary retention, No hematuria Neurologic: No memory loss Psychiatric: No depression symptoms (controlled with medications), No anxiety, No insomnia Endocrine: No fatigue Hematologic / Lymphatic: No abnormal bleeding/bruising Integumentary: + problem reported (pus draining; lower back), No rash Allergic / Immunologic: No environmental allergies, No seasonal allergies Physical Exam Vital Signs Date Time Temp Pulse Resp B/P (MAP) Pulse Ox O2 Delivery O2 Flow Rate FiO2 10/22/17 19:20 94 Room Air 10/22/17 19:20 37.0 94 16 130/83 (99) 94 Room Air 10/22/17 19:20 37.0 94 18 130/86 94 Room Air 10/22/17 19:03 95 18 128/86 98 Room Air 10/22/17 18:00 95 18 128/82 98 Room Air 10/22/17 17:23 88 18 127/84 96 Room Air 10/22/17 15:41 86 18 119/80 97 Room Air 10/22/17 13:50 36.9 105 18 123/77 97 Room Air General Appearance: WD/WN, no apparent distress Head: normocephalic, atraumatic Eyes: normal inspection ENT: hearing grossly normal Neck: supple Respiratory/Chest: chest non-tender, lungs clear, normal breath sounds, no respiratory distress, no accessory muscle use Cardiovascular: regular rate, rhythm, no edema, no murmur Abdomen/GI: normal bowel sounds, non tender, soft Back: normal range of motion, + pertinent finding (surgical scar noted in the lower back, redness, erythema, edema, warmth to touch, no longer draining, mildly tender to palpation) Extremities/Musculoskelatal: normal inspection, no calf tenderness, normal capillary refill, no pedal edema Neurologic/Psych: internist medical doctor md II-XII nml as tested, no motor/sensory deficits, alert, normal mood/affect, oriented x 3 Lymphatic: no adenopathy Diagnostics Laboratory Results Results Past 24 Hours Test 10/22/17 14:20 Range/Units White Blood Count 9.69 4.8-10.8 K/uL Red Blood Count 3.23 4.2-5.4 M/uL Hemoglobin 10.9 12.0-16.0 g/dL Hematocrit 30.4 37-47 % Mean Corpuscular Volume 94.1 80-100 fL Mean Corpuscular Hemoglobin 33.7 25-34 pg Mean Corpuscular Hemoglobin Concent 35.9 32-36 g/dl Platelet Count 374 130-400 K/uL Mean Platelet Volume 9.3 7.4-10.4 fL Neutrophils (%) (Auto) 66.7 % Lymphocytes (%) (Auto) 20.0 % Monocytes (%) (Auto) 11.1 % Eosinophils (%) (Auto) 1.5 % Basophils (%) (Auto) 0.4 % Neutrophils # (Auto) 6.45 1.4-6.5 K/uL Lymphocytes # (Auto) 1.94 1.2-3.4 K/uL Monocytes # (Auto) 1.08 0.11-0.59 K/uL Eosinophils # (Auto) 0.15 0-0.5 K/uL Basophils # (Auto) 0.04 0-0.2 K/uL RDW Standard Deviation 47.2 36.4-46.3 fL RDW Coefficient of Variation 13.8 11.5-14.5 % Immature Granulocyte % (Auto) 0.3 % Immature Granulocyte # (Auto) 0.03 0.00-0.02 K/uL Erythrocyte Sedimentation Rate 42 0-21 mm/hr Sodium Level 136 136-145 mmol/L Potassium Level 3.7 3.5-5.1 mmol/L Chloride Level 101 98-107 mmol/L Carbon Dioxide Level 23 21-32 mmol/L Anion Gap 12.0 3-11 mmol/L Blood Urea Nitrogen 5 7-18 mg/dl Creatinine 0.69 0.60-1.20 mg/dl Est Creatinine Clear Calc Drug Dose 145.3 ml/min Estimated GFR () 119.3 Estimated GFR (Non- 102.9 BUN/Creatinine Ratio 7.3 10-20 Random Glucose 77 70-99 mg/dl Calcium Level 9.0 8.5-10.1 mg/dl Total Bilirubin 0.3 0.2-1 mg/dl Aspartate Amino Transf (AST/SGOT) 26 15-37 U/L Alanine Aminotransferase (ALT/SGPT) 29 12-78 U/L Alkaline Phosphatase 50 45-117 U/L C-Reactive Protein 2.01 0-0.29 mg/dl Total Protein 7.9 6.4-8.2 gm/dl Albumin 3.5 3.4-5.0 gm/dl Globulin 4.4 2.5-4.0 gm/dl Albumin/Globulin Ratio 0.8 0.9-2 Procalcitonin 8.27 0-0.5 ng/ml Microbiology Results 10/22/17 Blood Culture, Received Pending 10/22/17 Blood Culture, Received Pending Diagnostic Radiology LUMBAR SPINE WITH CLINICAL HISTORY: spinal fusion 10/11 ? post op infection postoperative pain. Fever. TECHNIQUE: Transaxial acquisition with multi axial reformatted images COMPARISON STUDY: None FINDINGS: Findings consistent with a fusion at the L4-L5 level. Slight grade 1 anterolisthesis of L4 on L5. Disc spacer is present. Alignment appears anatomic. Multiple radiopaque pellets are present consistent with what appears to be bone grafting type material. There is no evidence for a bony destructive process. There does not appear to be soft tissue which would be considered abnormal involving the spinal canal. Within the subcutaneous fat posterior to the spine from L4 through the superior aspect of S1 It is a hyperdense collection measuring 9 x 4 x 3.5 cm. This is relatively well-circumscribed. Density characteristics indicate this potentially is blood or hematoma/infection. There are no air components. IMPRESSION: 1. 9 x 4 x 3.5 cm slightly hyperdense collection extending from L4 through S1 involving the subcutaneous fat exclusively.. 2. This may represent a postprocedural hematoma versus infection 3. Operative changes consistent with an L4-L5 laminectomy and fusion. No evidence for bony or posterior arch involvement. Impression Assessment and Plan This is a 47 year old female with a PMH of mood disorder, fibromyalgia, asthma/ COPD, tobacco use disorder, recent lumbar surgery (decompression/fusion) - presents with pus draining from the surgical site. Post-operative Infection fluid filled collection in the L4-S1 area Lumbar CT already performed surgeon aware of this and recommendation made to admit patient for IV abx. will use broad spectrum antibiotics, Vanco + Zosyn will consult ID for further input phone numbers for the surgeon at [facility], [facility] is in the chart if needed will try Risco PRN for pain, patient is not c/o too much pain COPD/Asthma continue home inhalers Mood Disorder continue home medications Fibromyalgia continue home medications DVT ppx SCDs, avoiding chemical prophylaxis on the off chance that this is a hematoma FULL CODE Advanced Directives Existing Living Will: No Existing Power of Fish Bait Processing Supervisor: No VTE Prophylaxis VTE Risk Assessment Done? Y/N: Yes Risk Level: Low Given or contraindicated: Other Anticoagulation <Electronically signed by Jyotsna Harris DO> Signed: 10/22/172058 Physical Exam (per Admitting): General Appearance: WD/WN, no apparent distress Head: normocephalic, atraumatic Eyes: normal inspection ENT: hearing grossly normal Neck: supple Respiratory/Chest: chest non-tender, lungs clear, normal breath sounds, no respiratory distress, no accessory muscle use Cardiovascular: regular rate, rhythm, no edema, no murmur Abdomen/GI: normal bowel sounds, non tender, soft Back: normal range of motion, + pertinent finding (surgical scar noted in the lower back, redness, erythema, edema, warmth to touch, no longer draining, mildly tender to palpation) Extremities/Musculoskelatal: normal inspection, no calf tenderness, normal capillary refill, no pedal edema Neurologic/Psych: internist medical doctor md II-XII nml as tested, no motor/sensory deficits, alert , normal mood/affect, oriented x 3 Lymphatic: no adenopathy Hospital Course This is a 47 year old female with a PMH of mood disorder, fibromyalgia, asthma/ COPD, tobacco use disorder, recent lumbar surgery (decompression/fusion) - presents with pus draining from the surgical site. CARLOS-Vancomycin Toxicity Likely secondary to Vancomycin Increased Trough level of vancomycin of > 70 Nephrology consulted -appreciate input IV fluid and monitor PRP.US -negative Requiring HD now and making adequet amount of urine Fluid restriction to 1500mls daily S/P Permcath placement today 11/03/17 Some swelling at the local site -a little better today 11/04/17 Still has considerable right lower neck swelling and pain Transport to and from the Dialysis center not yet resolved SOB is a little better and CXR on 11/04/17-much improved Likely to stay over the WE for further stabilization Creatinine is a little worse today -expected D/W Nephrology -Dialysis tomorrow -11/06/17 and likely discharge tomorrow Clinically stable with any symptoms Ready to be discharged HTN Will need medications to control HTN Remains stable with medication At Upper side 11/05/17 Advised to continue BP medications as directed Post-operative Fluid collection: Likely Seroma and doubt any Infection -fluid filled collection in the L4-S1 area -Lumbar CT already performed::1. 9 x 4 x 3.5 cm slightly hyperdense collection extending from L4 through S1 involving the subcutaneous fat exclusively.. 2. This may represent a postprocedural hematoma versus infection 3. Operative changes consistent with an L4-L5 laminectomy and fusion. No evidence for bony or posterior arch involvement. -on broad spectrum antibiotics, Vanco + Zosyn -appreciate ID input -Discussed with Dr Dykes who reviewed the film and thinks the collection likely to be seroma -Antibiotics discontinued The wound is cleared of any infection now Will need OP appointment with Dr Obando on discharge COPD/Asthma Continue home inhalers No acute issue Mood Disorder Continue home medications Anxiety is reasonably controlled Fibromyalgia Continue home medications No acute issue DVT ppx SCDs, avoiding chemical prophylaxis on the off chance that this is a hematoma FULL CODE (Note from My previous Follow Up) Has had a long discussion with the patient. Explained the current disease condition,explained the need for Vancomycin and the rare significant adverse reaction it can cause The renal function can get worse before it gets better May need short term Dialysis Very anxious but understanding Discussed with the Ortho Dr Obando #[phone] Will need to stay over the WE for further stabilization of her condition Transportation to and from the Dialysis center not yet resolved SOB and neck swelling have to improve before discharge Discussed with the patient in detailed about the initial Dose of Vancomycin given by the Pharmacist based on her weight That is the cause for her Renal failure and requiring Hemo Dialysis now Electronic Publisher is involve in the care from the Day1 of Renal failure Kidney function is expected to Improve subsequently We will be doing everything possible to avoid this kind or situation to anyone else Answered all of her question She is very understanding. Total time spent on discharge = 40 minutes This includes examination of the patient, discharge planning, medication reconciliation, and communication with other providers. Discharge Instructions Date of Service Nov 06, 2017. Admission Reason for Admission: Postoperative Infection Discharge Discharge Diagnosis / Problem: Vancomycin Nephrotoxicity-requiruing HD,HTN, Fibromyalgia,Anxiety/depression Discharge Goals Goal(s): Prevent Disease Progression Activity Recommendations Activity Limitations: resume your previous activity (Continue Hemodialysis as advised) . Instructions / Follow-Up Instructions / Follow-Up DR Tolliver on 11/10/17 at 2 PM(Dr Lo is away).Keep doing Dialysis as per instruction from Nephrology Current Hospital Diet Patient's current hospital diet: Regular Diet, Renal Diet Discharge Diet Recommended Diet: Regular Diet Procedures Procedures Performed: Removal of Temporary Dialysis Catheter, Insertion of Perm Catheter, Right Internal Jugular Approach, Ultrasound localization of Right internal Jugular Vein, Fluoroscopy for Positioning. Pending Studies Studies pending at discharge: no Medical Emergencies . Who to Call and When: Medical Emergencies: If at any time you feel your situation is an emergency, please call 911 immediately. . Non-Emergent Contact Non-Emergency issues call your: Primary Care Provider . Past History Medical & Surgical History: (1) Vancomycin-induced nephrotoxicity (2) Postoperative infection (3) Asthma (4) Fibromyalgia . "Provider Documentation" section prepared by [facility]. . VTE Core Measure Inpt VTE Proph given/why not?: Other Anticoagulation, SCD's <Electronically signed by Denver High M.D.> Signed: 11/06/17 0896 Additional Copies To Vern Lo M.D.
--- NOTE | 2017-11-10 08:22 | EDITING REQUIRED CODING QUERY ---
CODING QUERY To promote full compliance with coding requirements relating to patient care, provider participation is requested in all cases of surgical coder uncertainty. Please assist us with the question(s) below: Coding Question(s): Patient admitted with wound disruption and drainage. IV antibiotics given. D/S,progress notes mention postop infection and seroma. Please check below the diagnosis you were treating. Thank you! Juan Argueta [employer] [facility] Physician's Response(s): __x____ Patient treated for postoperative infection Patient treated for Seroma Patient treated for both Seroma and postoperative infection Cannot cliically correlate Other/ Please document : Principal Diagnosis: "_that condition established after study, to be chiefly responsible for occasioning the admission of the patient to the hospital for care." Co-Existing Principal Diagnosis: "_when two or more diagnoses equally meet the criteria for principal diagnosis as determined by the circumstances of admission, diagnostic work up, and/or therapy provided, and the Alphabetic Index, Tabular List, or another coding guideline does not provide sequencing direction, any one of the diagnoses may be sequenced first." "When the physician has documented what appears to be a current diagnosis in the body of the record, but has not included the diagnosis in the final diagnostic statement, the physician should be asked whether the diagnosis should be added." (Source Coding Clinic 2 QTR90. p3-4)
== END 2017-11-06 17:19 | disposition home or self-care (01) | DRG 862 ==
LOC: C.EDB 13:25 → C.3E 18:37 → ENRESERV 18:46
PROVIDERS: ADMIT Family Medicine; ATTEND Internal Medicine
PROC: 02HV33Z Insertion of Infusion Device into Superior Vena Cava, Percutaneous Approach (ICD-10-PCS; 2017-10-28)
PROC: 05PY33Z Removal of Infusion Device from Upper Vein, Percutaneous Approach (ICD-10-PCS; principal; 2017-11-03 10:00)
PROC: 02HV33Z Insertion of Infusion Device into Superior Vena Cava, Percutaneous Approach (ICD-10-PCS; principal; 2017-11-03 10:00)
DX: T81.4XXA Infection following a procedure, initial encounter (principal); J18.9 Pneumonia, unspecified organism; N17.9 Acute kidney failure, unspecified; L03.312 Cellulitis of back [any part except buttock and flank]; T81.31XD Disruption of external operation (surgical) wound, not elsewhere classified, subsequent encounter; T36.8X5A Adverse effect of other systemic antibiotics, initial encounter; Z98.1 Arthrodesis status; J45.909 Unspecified asthma, uncomplicated; M79.7 Fibromyalgia; F17.210 Nicotine dependence, cigarettes, uncomplicated; Z91.040 Latex allergy status; F32.9 Major depressive disorder, single episode, unspecified; K59.00 Constipation, unspecified; I16.0 Hypertensive urgency; Y83.8 Other surgical procedures as the cause of abnormal reaction of the patient, or of later complication, without mention of misadventure at the time of the procedure; Y92.019 Unspecified place in single-family (private) house as the place of occurrence of the external cause

== ENCOUNTER 2023-03-08 13:24 | Inpatient (IN) ==
[2023-03-08 14:27] LABS: iSTAT Hemoglobin 10.2 g/dl (12.0-16.0); iSTAT Ionized Calcium 1.16 mmol/l (1.12-1.32); iSTAT Potassium 3.6 mmol/L (3.3-5.0)
--- NOTE | 2023-03-08 14:27 | Emergency Department Note ---
Impression & Plan Stroke-like symptom, Ataxia, Anemia ED Provider Note NAME: FEMI PAVON AGE: 52 SEX: F : 1970 ARRIVES VIA: Walk-In INFORMANT: Patient, the patient's significant other ED PROVIDER(S): Gray Hines DO CHIEF COMPLAINT: Dizzy HPI: The patient is a 52-year-old female who presented to the emergency department for neurologic symptoms. The patient states she has had intermittent symptoms over the course the last 4 months. These been exacerbated over the weekend as her father recently . The patient describes multiple complaints including numbness weakness difficulty ambulating double vision as well as headaches. She also notices auditory and visual hallucinations. She has been seen by her family doctor but not for these complaints. She is scheduled for outpatient testing on her abdomen this week. Patient denies having any recent trauma. She does not have a history of stroke. She does have a history of hypertension. ROS: See above HPI for pertinent positives & negatives. A total of 10 systems reviewed and were otherwise negative. PAST MEDICAL HISTORY: See Below PAST SURGICAL HISTORY: See Below FAMILY HISTORY: See Below SOCIAL HISTORY: See Below HOME MEDICATIONS: See Below ALLERGIES: See Below VITALS: See Below PHYSICAL EXAMINATION: GENERAL: The patient is awake and alert. The patient is somewhat anxious appearing. EYES: The conjunctivae are clear. The pupils are round and reactive. There is no nystagmus appreciated. EARS, NOSE, MOUTH AND THROAT: The nose is without any evidence of any deformity. NECK: The neck is nontender and supple. RESPIRATORY: Normal respiratory effort is noted there is no evidence of wheezing rhonchi or rales CARDIOVASCULAR: Regular rate and rhythm noted there no murmurs rubs or gallops normal S1 normal S2. GASTROINTESTINAL: The abdomen is soft. Abdomen is nontender. MUSCULOSKELETAL/EXTREMITIES: There is no evidence of gross deformity full range of motion is noted in the hips and shoulders. SKIN: There is no obvious evidence of any rash. There are no petechiae, pallor or cyanosis noted. NEUROLOGIC: The patient is awake and alert. She is oriented to person place and situation. There is no drift in the upper extremities. Aegf-on-cmiz is abnormal as the patient cannot do it. Speech was clear. MEDICAL DECISION MAKING: The patient is a 52-year-old female who presented to the emergency department with multiple complaints. The patient had problems with ambulation as well as dizziness. She was complaining of diplopia as well. Her physical exam was very difficult partially because of patient compliance. The patient was not able to ambulate very well. She appeared very unsteady. I discussed the patient's laboratory and radiographic studies with her. CT angiography of the brain showed no acute process. CT of the brain did not show any acute process either. Given the patient's inability to ambulate I discussed her condition with the on-call [facility]. They have agreed to evaluate the patient in the emergency department for further management and disposition. Triage Nursing notes reviewed. Prior medical records reviewed Vital Signs: reviewed and remarkable for elevated blood pressure. Differential diagnosis: Infection, dehydration, metabolic abnormality, hypo/hyperglycemia, electrolyte disturbance, anemia, hypoxia, cardiac sources, intracerebral event, toxicologic, neurologic, as well as other pathologies. ER treatment provided: See below Diagnostics interpreted by me: ECG: EKG was obtained in the emergency department. My interpretation is normal sinus rhythm at 92 bpm. There is no ectopy. There is no acute ST segment abnormalities noted. Anterior T wave abnormalities are noted. This was compared to a tracing from December 08, 2022. No changes were noted. Cardiac Monitoring: An order was placed for continuous cardiac monitoring. The monitor shows a rate of 84 bpm with sinus rhythm. Laboratory studies: As stated above and show below. Imaging studies: See below. Radiographic imaging was reviewed by myself Consultation(s): I discussed this case with Cynthia who is on-call for the [facility] group. Past Med/Surg History Medical History Asthma Fibromyalgia Vancomycin-induced nephrotoxicity Surgical History History of spinal surgery Social History Smoking Status: Current some day smoker Tobacco Type: Cigarettes Preferred Language: [place]ib[place]ian Feels Safe at Home: Yes Allergies Allergies Allergy/AdvReac Type Severity Reaction Status Date / Time latex AdvReac Unknown ITCHY Unverified 03/08/23 15:06 amoxicillin AdvReac thrush Verified 03/08/23 15:09 nickel AdvReac Rash Verified 03/08/23 15:09 Home Meds Home Medications Medication Instructions Recorded Confirmed albuterol sulfate 90 mcg/actuation 2 puff inhalation Q4 PRN Shortness 09/25/19 03/08/23 aerosol inhaler Of Breath Or Wheezing bupropion HCl 300 mg 24 hr tablet, 300 mg PO DAILY 09/25/19 03/08/23 extended release ipratropium 20 mcg-albuterol 100 1 puff inhalation UD 09/25/19 03/08/23 mcg/actuation mist for inhalation (Combivent Respimat) loratadine 10 mg tablet 10 mg PO DAILY 09/25/19 03/08/23 lorazepam 0.5 mg tablet 0.5 mg PO BID PRN Anxiety 09/25/19 03/08/23 trazodone 50 mg tablet 50 mg PO HS 09/25/19 03/08/23 duloxetine 60 mg capsule,delayed 60 mg PO QAM 03/08/23 03/08/23 release losartan 50 mg tablet 50 mg PO DAILY 03/08/23 03/08/23 magnesium oxide 400 mg PO DAILY 03/08/23 03/08/23 meloxicam 7.5 mg tablet 7.5 mg PO DAILY 03/08/23 03/08/23 mometasone-formoterol HFA 200 2 puff inhalation BID 03/08/23 03/08/23 mcg-5 mcg/actuation aerosol inhaler (Dulera) omeprazole 20 mg capsule,delayed 20 mg PO DAILY 03/08/23 03/08/23 release pregabalin 150 mg capsule 150 mg PO AMHS 03/08/23 03/08/23 Results & Data (ED) Vital Signs Vital Signs - 24 hr 03/08/23 13:33 03/08/23 14:08 03/08/23 13:40 Temperature 36.5 C Temperature Source Temporal Artery Scan Pulse Rate 96 H 91 H Pulse Rate [Apical] Respiratory Rate 18 Respiratory Effort / Characteristics Non-Labored Respiratory Depth Normal Respiratory Pattern Regular Blood Pressure 139/104 H Blood Pressure [Left Arm] Blood Pressure Mean 115 Blood Pressure Mean [Left Arm] Pulse Oximetry 98 Oxygen Delivery Method Room Air Room Air Sepsis Recent Fever Within 48 Hours No Sepsis New/Unexplained Change in Mental Status N/A Sepsis Action Taken by Nursing No Action Required 03/08/23 13:40 03/08/23 15:26 03/08/23 15:44 Temperature Temperature Source Pulse Rate Pulse Rate [Apical] 83 81 Respiratory Rate 18 Respiratory Effort / Characteristics Respiratory Depth Respiratory Pattern Blood Pressure Blood Pressure [Left Arm] 184/104 H 175/109 H Blood Pressure Mean Blood Pressure Mean [Left Arm] 130 131 Pulse Oximetry 99 97 99 Oxygen Delivery Method Room Air Room Air Room Air Sepsis Recent Fever Within 48 Hours Sepsis New/Unexplained Change in Mental Status Sepsis Action Taken by Nursing 03/08/23 16:22 Temperature Temperature Source Pulse Rate Pulse Rate [Apical] 84 Respiratory Rate Respiratory Effort / Characteristics Respiratory Depth Respiratory Pattern Blood Pressure Blood Pressure [Left Arm] 178/96 H Blood Pressure Mean Blood Pressure Mean [Left Arm] 123 Pulse Oximetry 99 Oxygen Delivery Method Room Air Sepsis Recent Fever Within 48 Hours Sepsis New/Unexplained Change in Mental Status Sepsis Action Taken by Care Home Medications Current Medication List: was personally reviewed by me Laboratory Data Attestation: I reviewed the patient's lab results. 03/08/23 14:11 03/08/23 14:11 Lab Results 03/08/23 03/08/23 03/08/23 Range/Units 14:11 14:11 14:11 WBC 8.65 (4.8-10.8) K/ul RBC 2.83 L (4.20-5.40) M/uL Hgb 9.7 L (12.0-16.0) g/dl POC Hgb (12.0-16.0) g/dl Hct 26.5 L (37.0-47.0) % POC Hct (37-47) % MCV 93.6 (80.0-100.0) fL MCH 34.3 H (25.0-34.0) pg MCHC 36.6 H (32.0-36.0) g/dL RDW Std Deviation 44.4 (36.4-46.3) fL RDW Coeff of Amos 12.9 (11.5-14.5) % Plt Count 233 (130-400) K/uL MPV 9.9 (9.4-12.4) fL PT 10.9 (9.0-12.0) Seconds INR 1.0 (0.9-1.1) APTT 26.1 (21.0-31.0) Seconds PTT Ratio 0.9 POC Sodium (135-144) mmol/L Sodium 131 L (136-145) mmol/L POC Potassium (3.3-5.0) mmol/L Potassium 3.7 (3.5-5.1) mmol/L POC Chloride (101-112) mmol/L Chloride 99 (98-107) mmol/L Carbon Dioxide 24 (21-32) mmol/L POC Total CO2 (24-31) mmol/L Anion Gap 8 (3-11) POC Anion Gap (16-25) mmol/L POC BUN (7-18) mg/dl BUN 12 (6-23) mg/dl Creatinine 1.03 (0.6-1.2) mg/dl POC Creatinine (0.6-1.3) mg/dl Est Cr Clr Drug Dosing Not Reportable Est GFR ( Amer) 71.9 ml/min Est GFR (Non-Af Amer) 62.0 ml/min BUN/Creatinine Ratio 11.7 (10-20) Glucose 87 (70-99(Fasting)) mg/dl POC Glucose (other) (70-99) mg/dl Calcium 9.5 (8.6-10.3) mg/dl POC Ioniz Calcium Danielle (1.12-1.32) mmol/l Magnesium 1.4 L (1.7-2.4) mg/dl Total Bilirubin 0.5 (0.2-1.0) mg/dl AST 21 (13-39) U/L ALT 13 (7-52) U/L Alkaline Phosphatase 48 (34-104) U/L Total Protein 7.2 (6.0-8.3) gm/dl Albumin 4.4 (3.4-5.0) gm/dl Globulin 2.8 (2.5-4.0) gm/dl Albumin/Globulin Ratio 1.6 (0.9-2) Ethyl Alcohol mg/dL (<10.0) mg/dl 03/08/23 03/08/23 Range/Units 14:15 15:05 WBC (4.8-10.8) K/ul RBC (4.20-5.40) M/uL Hgb (12.0-16.0) g/dl POC Hgb 10.2 L (12.0-16.0) g/dl Hct (37.0-47.0) % POC Hct 30 L (37-47) % MCV (80.0-100.0) fL MCH (25.0-34.0) pg MCHC (32.0-36.0) g/dL RDW Std Deviation (36.4-46.3) fL RDW Coeff of Amos (11.5-14.5) % Plt Count (130-400) K/uL MPV (9.4-12.4) fL PT (9.0-12.0) Seconds INR (0.9-1.1) APTT (21.0-31.0) Seconds PTT Ratio POC Sodium 134 L (135-144) mmol/L Sodium (136-145) mmol/L POC Potassium 3.6 (3.3-5.0) mmol/L Potassium (3.5-5.1) mmol/L POC Chloride 98 L (101-112) mmol/L Chloride (98-107) mmol/L Carbon Dioxide (21-32) mmol/L POC Total CO2 23 L (24-31) mmol/L Anion Gap (3-11) POC Anion Gap 18.0 (16-25) mmol/L POC BUN 11 (7-18) mg/dl BUN (6-23) mg/dl Creatinine (0.6-1.2) mg/dl POC Creatinine 1.0 (0.6-1.3) mg/dl Est Cr Clr Drug Dosing Est GFR ( Amer) ml/min Est GFR (Non-Af Amer) ml/min BUN/Creatinine Ratio (10-20) Glucose (70-99(Fasting)) mg/dl POC Glucose (other) 86 (70-99) mg/dl Calcium (8.6-10.3) mg/dl POC Ioniz Calcium Danielle 1.16 (1.12-1.32) mmol/l Magnesium (1.7-2.4) mg/dl Total Bilirubin (0.2-1.0) mg/dl AST (13-39) U/L ALT (7-52) U/L Alkaline Phosphatase (34-104) U/L Total Protein (6.0-8.3) gm/dl Albumin (3.4-5.0) gm/dl Globulin (2.5-4.0) gm/dl Albumin/Globulin Ratio (0.9-2) Ethyl Alcohol mg/dL < 10.0 (<10.0) mg/dl Administered Medications Magnesium Sulfate/Dextrose (Magnesium Sulfate / D5w) 1 gm in 100 mls @ 100 mls/hr IV NOW STA Stop: 03/08/23 17:22 Last Admin: 03/08/23 16:38 Dose: 100 mls/hr Documented By: ML Discontinued Medications Ioversol (Optiray 320 125ml) 120 ml IV ONCE ONE Stop: 03/08/23 16:20 Last Admin: 03/08/23 16:19 Dose: 120 ml Documented By: HAYDEE Imaging Data Attestation: I personally reviewed and interpreted this imaging study as follows: My Impression: 1 view chest x-ray was obtained in the emergency department. My interpretation is no free air, no definite infiltrate, final report below. CT of the brain was obtained in the emergency department. My interpretation is no intracranial hemorrhage or mass, final report below. Radiologist's Impression: Chest X-Ray 03/08/23 13:40 XR chest 1V portable CLINICAL HISTORY: stroke alert COMPARISON STUDY: Chest CT September 25, 2019. Chest radiograph December 08, 2022. FINDINGS: Lung volumes are normal. There is no consolidation to suggest pneumonia. Linear left perihilar density favors atelectasis. There is no pneumothorax or pleural effusion. Cardiac size is normal. Mediastinal contours are normal. There is no evidence for pulmonary edema. IMPRESSION: No acute cardiopulmonary findings. ACT 112: Negative or not required by law. Electronically signed by: Len Chappell M.D. 03/08/2023 2:[address] 03/08/23 13:[address] OF THE BRAIN; CT ANGIOGRAM OF THE BRAIN; CT ANGIOGRAM OF THE NECK CLINICAL HISTORY: Neurological deficit. Stroke like symptoms. COMPARISON STUDY: CT angiogram of the head and neck dated 12/08/2022. TECHNIQUE: Unenhanced axial CT scan of the brain is performed. Subsequently, following the IV administration of 120 of Optiray 320, CT angiogram of the head and neck was performed from the aortic arch to the vertex. Images are reviewed in the axial, sagittal, and coronal planes. 3-D MIPS images are created and assessed. IV contrast was administered without complication. All measurements were calculated based on NASCET criteria. A dose lowering technique was utilized adhering to the principles of ALARA. CT DOSE: 953.71 mGy.cm FINDINGS: Brain parenchyma: The brain parenchyma is normal in appearance. There is no hemorrhage, mass effect, or evidence of acute territorial ischemia by CT criteria. There is no evidence of enhancing mass lesion on the angiogram phase i mages. The ventricles, sulci, and cisterns are normal in configuration. Butler- white matter differentiation is preserved. No extra-axial fluid collection is seen. Thoracic aorta: Visualized portions of the thoracic aorta are normal in caliber. The aortic arch demonstrates standard 3-vessel anatomy. Right carotid arterial system: The right common carotid artery is widely patent, as are the right internal and external carotid arteries. Left carotid arterial system: The left common carotid artery is widely patent, as are the left internal and external carotid arteries. Vertebral arteries: Widely patent bilaterally nothing left-sided dominance. Subclavian arteries: Widely patent bilaterally. Intracranial vasculature: The internal carotid arteries are patent at the skull base, as are the anterior and middle cerebral arteries bilaterally. The vertebrobasilar system and posterior cerebral arteries are widely patent. The left vertebral artery is dominant. There is no aneurysm, high-grade stenosis, or focal vessel cut off seen throughout the intracranial circulation. Jugular veins: Patent bilaterally. Dural sinuses: Patent. Lung apices: Partially visualized upper lobe lung parenchyma appears clear. Soft tissues: The visualized pharyngeal soft tissues are normal in appearance noting angiographic phase technique. The oropharyngeal airway appears widely patent. The salivary and thyroid glands are normal in appearance. No cervical lymphadenopathy is seen. Skeletal structures: The skeletal structures are osteopenic. The calvarium appears intact. The cervical spine is maintained noting advanced multilevel spondylosis. No lytic or blastic lesion is seen. Orbits: The bony orbits are intact. Orbital contents are normal as visualized. Sinuses and mastoids: The paranasal sinuses are clear. The mastoid air cells are well pneumatized. IMPRESSION: 1. There is no hemorrhage, mass effect, or evidence of acute territorial ischemia by CT criteria. 2. Unremarkable CT angiogram of the brain. No change from 12/08/2022. 3. Unremarkable CT angiogram of the neck. No change from 12/08/2022. ACT 112: Negative or not required by law. Electronically signed by: Miquel Méndez M.D. 03/08/2023 4:25 PM Head CTA 03/08/23 14:[address] OF THE BRAIN; CT ANGIOGRAM OF THE BRAIN; CT ANGIOGRAM OF THE NECK CLINICAL HISTORY: Neurological deficit. Stroke like symptoms. COMPARISON STUDY: CT angiogram of the head and neck dated 12/08/2022. TECHNIQUE: Unenhanced axial CT scan of the brain is performed. Subsequently, following the IV administration of 120 of Optiray 320, CT angiogram of the head and neck was performed from the aortic arch to the vertex. Images are reviewed in the axial, sagittal, and coronal planes. 3-D MIPS images are created and assessed. IV contrast was administered without complication. All measurements were calculated based on NASCET criteria. A dose lowering technique was utilized adhering to the principles of ALARA. CT DOSE: 953.71 mGy.cm FINDINGS: Brain parenchyma: The brain parenchyma is normal in appearance. There is no hemorrhage, mass effect, or evidence of acute territorial ischemia by CT criteria. There is no evidence of enhancing mass lesion on the angiogram phase images. The ventricles, sulci, and cisterns are normal in configuration. Butler- white matter differentiation is preserved. No extra-axial fluid collection is seen. Thoracic aorta: Visualized portions of the thoracic aorta are normal in caliber. The aortic arch demonstrates standard 3-vessel anatomy. Right carotid arterial system: The right common carotid artery is widely patent, as are the right internal and external carotid arteries. Left carotid arterial system: The left common carotid artery is widely patent, as are the left internal and external carotid arteries. Vertebral arteries: Widely patent bilaterally nothing left-sided dominance. Subclavian arteries: Widely patent bilaterally. Intracranial vasculature: The internal carotid arteries are patent at the skull base, as are the anterior and middle cerebral arteries bilaterally. The vertebrobasilar system and posterior cerebral arteries are widely patent. The left vertebral artery is dominant. There is no aneurysm, high-grade stenosis, or focal vessel cut off seen throughout the intracranial circulation. Jugular veins: Patent bilaterally. Dural sinuses: Patent. Lung apices: Partially visualized upper lobe lung parenchyma appears clear. Soft tissues: The visualized pharyngeal soft tissues are normal in appearance noting angiographic phase technique. The oropharyngeal airway appears widely patent. The salivary and thyroid glands are normal in appearance. No cervical lymphadenopathy is seen. Skeletal structures: The skeletal structures are osteopenic. The calvarium appears intact. The cervical spine is maintained noting advanced multilevel spondylosis. No lytic or blastic lesion is seen. Orbits: The bony orbits are intact. Orbital contents are normal as visualized. Sinuses and mastoids: The paranasal sinuses are clear. The mastoid air cells are well pneumatized. IMPRESSION: 1. There is no hemorrhage, mass effect, or evidence of acute territorial ischemia by CT criteria. 2. Unremarkable CT angiogram of the brain. No change from 12/08/2022. 3. Unremarkable CT angiogram of the neck. No change from 12/08/2022. ACT 112: Negative or not required by law. Electronically signed by: Miquel Méndez M.D. 03/08/2023 4:25 PM Neck CTA 03/08/23 14:[address] OF THE BRAIN; CT ANGIOGRAM OF THE BRAIN; CT ANGIOGRAM OF THE NECK CLINICAL HISTORY: Neurological deficit. Stroke like symptoms. COMPARISON STUDY: CT angiogram of the head and neck dated 12/08/2022. TECHNIQUE: Unenhanced axial CT scan of the brain is performed. Subsequently, following the IV administration of 120 of Optiray 320, CT angiogram of the head and neck was performed from the aortic arch to the vertex. Images are reviewed in the axial, sagittal, and coronal planes. 3-D MIPS images are created and assessed. IV contrast was administered without complication. All measurements were calculated based on NASCET criteria. A dose lowering technique was utilized adhering to the principles of ALARA. CT DOSE: 953.71 mGy.cm FINDINGS: Brain parenchyma: The brain parenchyma is normal in appearance. There is no hemorrhage, mass effect, or evidence of acute territorial ischemia by CT crit eria. There is no evidence of enhancing mass lesion on the angiogram phase images. The ventricles, sulci, and cisterns are normal in configuration. Butler- white matter differentiation is preserved. No extra-axial fluid collection is seen. Thoracic aorta: Visualized portions of the thoracic aorta are normal in caliber. The aortic arch demonstrates standard 3-vessel anatomy. Right carotid arterial system: The right common carotid artery is widely patent, as are the right internal and external carotid arteries. Left carotid arterial system: The left common carotid artery is widely patent, as are the left internal and external carotid arteries. Vertebral arteries: Widely patent bilaterally nothing left-sided dominance. Subclavian arteries: Widely patent bilaterally. Intracranial vasculature: The internal carotid arteries are patent at the skull base, as are the anterior and middle cerebral arteries bilaterally. The vertebrobasilar system and posterior cerebral arteries are widely patent. The left vertebral artery is dominant. There is no aneurysm, high-grade stenosis, or focal vessel cut off seen throughout the intracranial circulation. Jugular veins: Patent bilaterally. Dural sinuses: Patent. Lung apices: Partially visualized upper lobe lung parenchyma appears clear. Soft tissues: The visualized pharyngeal soft tissues are normal in appearance noting angiographic phase technique. The oropharyngeal airway appears widely pa tent. The salivary and thyroid glands are normal in appearance. No cervical lymphadenopathy is seen. Skeletal structures: The skeletal structures are osteopenic. The calvarium appears intact. The cervical spine is maintained noting advanced multilevel spondylosis. No lytic or blastic lesion is seen. Orbits: The bony orbits are intact. Orbital contents are normal as visualized. Sinuses and mastoids: The paranasal sinuses are clear. The mastoid air cells are well pneumatized. IMPRESSION: 1. There is no hemorrhage, mass effect, or evidence of acute territorial ischemia by CT criteria. 2. Unremarkable CT angiogram of the brain. No change from 12/08/2022. 3. Unremarkable CT angiogram of the neck. No change from 12/08/2022. ACT 112: Negative or not required by law. Electronically signed by: Miquel Méndez M.D. 03/08/2023 4:25 PM Discharge Plan Visit Data Chief Complaint: Neuro Symptoms/Deficit Stated Complaint: GET CHECKED OUT, TROUBLE WALKING, CONFUSED ED Provider: Gray Hines Discharge Problem: Stroke-like symptom, Ataxia, Anemia Patient Disposition: Being Evaluated by Hospitalist Forms Stand Alone Forms: My [facility] Prescriptions Prescriptions: No Action trazodone 50 mg tablet 50 mg PO HS loratadine 10 mg tablet 10 mg PO DAILY bupropion HCl 300 mg tablet extended release 24 hr 300 mg PO DAILY lorazepam 0.5 mg tablet 0.5 mg PO BID PRN (Reason: Anxiety) albuterol sulfate 90 mcg/actuation HFA aerosol inhaler 2 puff INHALATION Q4 PRN (Reason: Shortness Of Breath Or Wheezing) Combivent Respimat 20-100 mcg/actuation mist 1 puff INHALATION UD losartan 50 mg tablet 50 mg PO DAILY pregabalin 150 mg capsule 150 mg PO AMHS magnesium oxide 400 mg magnesium tablet 400 mg PO DAILY Dulera 200-5 mcg/actuation HFA aerosol inhaler 2 puff INHALATION BID meloxicam 7.5 mg tablet 7.5 mg PO DAILY Rx Instructions: Patient usually takes 1 tab every am. omeprazole 20 mg capsule,delayed release(DR/EC) 20 mg PO DAILY duloxetine 60 mg capsule,delayed release(DR/EC) 60 mg PO QAM Referrals Referrals: Myesha Cavanaugh MD [Primary Care Provider] - Anemia Qualifiers: Anemia type: unspecified type Qualified Code(s): D64.9 - Anemia, unspecified
[2023-03-08 14:33] LABS: Hematocrit (blood only) 26.5 % (37.0-47.0); Hemoglobin 9.7 g/dl (12.0-16.0); Mean Corpuscular Hemoglobin 34.3 pg (25.0-34.0); Mean Corpuscular Hgb Conc 36.6 g/dL (32.0-36.0); Mean Corpuscular Volume 93.6 fL (80.0-100.0); Mean Platelet Volume 9.9 fL (9.4-12.4); Platelet Count 233 K/uL (130-400); RDW Coefficient of Variation 12.9 % (11.5-14.5); RDW Standard Deviation 44.4 fL (36.4-46.3); Red Blood Count 2.83 M/uL (4.20-5.40); White Blood Count 8.65 K/ul (4.8-10.8)
--- NOTE | 2023-03-08 14:33 | XRay Report ---
XR chest 1V portable CLINICAL HISTORY: stroke alert COMPARISON STUDY: Chest CT September 25, 2019. Chest radiograph December 08, 2022. FINDINGS: Lung volumes are normal. There is no consolidation to suggest pneumonia. Linear left perihi lar density favors atelectasis. There is no pneumothorax or pleural effusion. Cardiac size is normal. Mediastinal contours are normal. There is no evidence for pulmonary edema. IMPRESSION: No acute cardiopulmonary findings. ACT 112: Negative or not required by law. Electronically signed by: Len Chappell M.D. 03/08/2023 2:31 PM
[2023-03-08 14:46] LABS: Alanine Aminotransferase 13 U/L (7-52); Albumin Globulin Ratio 1.6 (0.9-2); Albumin Level 4.4 gm/dl (3.4-5.0); Alkaline Phosphatase 48 U/L (34-104); Anion Gap 8 (3-11); Aspartate Aminotransferase 21 U/L (13-39); BUN Creatinine Ratio 11.7 (10-20); Bilirubin,Total 0.5 mg/dl (0.2-1.0); Blood Urea Nitrogen 12 mg/dl (6-23); Calcium 9.5 mg/dl (8.6-10.3); Carbon Dioxide 24 mmol/L (21-32); Chloride 99 mmol/L (98-107); Est GFR (African American) 71.9 ml/min; Globulin 2.8 gm/dl (2.5-4.0); Glucose 87 mg/dl (70-99(Fasting)); Magnesium 1.4 mg/dl (1.7-2.4); Potassium 3.7 mmol/L (3.5-5.1); Sodium 131 mmol/L (136-145); Total Protein 7.2 gm/dl (6.0-8.3)
[2023-03-08 15:05] LABS: Partial Thromboplastin Ratio 0.9; Partial Thromboplastin Time 26.1 Seconds (21.0-31.0); Prothrombin Time 10.9 Seconds (9.0-12.0)
--- NOTE | 2023-03-08 15:48 | Electrocardiogram Report ---
Test Reason : Blood Pressure : / mmHG Vent. Rate : 092 BPM Atrial Rate : 092 BPM P-R Int : 188 ms QRS Dur : 092 ms QT Int : 358 ms P-R-T Axes : 057 033 034 degrees QTc Int : 442 ms Normal sinus rhythm Possible Left atrial enlargement Borderline ECG When compared with ECG of 08-DEC-2022 11:06, No significant change was found Confirmed by Jacob Schaeffer ([id number]) on 03/08/2023 3:48:13 PM Referred By: Confirmed By:Jacob Schaeffer
[2023-03-08] MEDS ORDERED: OPTIRAY 320 125ml IV ONE (16:19)
[2023-03-08] MEDS ORDERED: MAGNESIUM SULFATE / D5W 1 GM/100 ML BAG IV STA (16:23)
--- NOTE | 2023-03-08 16:28 | CT Scan Report ---
UNENHANCED CT OF THE BRAIN; CT ANGIOGRAM OF THE BRAIN; CT ANGIOGRAM OF THE NECK CLINICAL HISTORY: Neurological deficit. Stroke like symptoms. COMPARISON STUDY: CT angiogram of the head and neck dated 12/08/2022. TECHNIQUE: Unenhanced axial CT scan of the brain is performed. Subsequently, following the IV adminis tration of 120 of Optiray 320, CT angiogram of the head and neck was performed from the aortic arch t o the vertex. Images are reviewed in the axial, sagittal, and coronal planes. 3-D MIPS images are cre ated and assessed. IV contrast was administered without complication. All measurements were calculate d based on NASCET criteria. A dose lowering technique was utilized adhering to the principles of ALA RA. CT DOSE: 953.71 mGy.cm FINDINGS: Brain parenchyma: The brain parenchyma is normal in appearance. There is no hemorrhage, mass effect, or evidence of acute territorial ischemia by CT criteria. There is no evidence of enhancing mass lesi on on the angiogram phase images. The ventricles, sulci, and cisterns are normal in configuration. Gr ay-white matter differentiation is preserved. No extra-axial fluid collection is seen. Thoracic aorta: Visualized portions of the thoracic aorta are normal in caliber. The aortic arch demo nstrates standard 3-vessel anatomy. Right carotid arterial system: The right common carotid artery is widely patent, as are the right int ernal and external carotid arteries. Left carotid arterial system: The left common carotid artery is widely patent, as are the left [facility] al and external carotid arteries. Vertebral arteries: Widely patent bilaterally nothing left-sided dominance. Subclavian arteries: Widely patent bilaterally. Intracranial vasculature: The internal carotid arteries are patent at the skull base, as are the ante rior and middle cerebral arteries bilaterally. The vertebrobasilar system and posterior cerebral ashleigh franklin are widely patent. The left vertebral artery is dominant. There is no aneurysm, high-grade steno sis, or focal vessel cut off seen throughout the intracranial circulation. Jugular veins: Patent bilaterally. Dural sinuses: Patent. Lung apices: Partially visualized upper lobe lung parenchyma appears clear. Soft tissues: The visualized pharyngeal soft tissues are normal in appearance noting angiographic pha se technique. The oropharyngeal airway appears widely patent. The salivary and thyroid glands are nor mal in appearance. No cervical lymphadenopathy is seen. Skeletal structures: The skeletal structures are osteopenic. The calvarium appears intact. The cervic al spine is maintained noting advanced multilevel spondylosis. No lytic or blastic lesion is seen. Orbits: The bony orbits are intact. Orbital contents are normal as visualized. Sinuses and mastoids: The paranasal sinuses are clear. The mastoid air cells are well pneumatized. IMPRESSION: 1. There is no hemorrhage, mass effect, or evidence of acute territorial ischemia by CT criteria. 2. Unremarkable CT angiogram of the brain. No change from 12/08/2022. 3. Unremarkable CT angiogram of the neck. No change from 12/08/2022. ACT 112: Negative or not required by law. Electronically signed by: Miquel Méndez M.D. 03/08/2023 4:25 PM
--- NOTE | 2023-03-08 16:56 | History & Physical Report ---
Date of Service March 08, 2023 Assessment & Plan (1) Ataxia: (2) Visual disturbance: Plan: Patient is 52-year-old female with PMH HTN, moderate persistent asthma, COPD, depression, fibromyalgia, GERD, alcohol use, tobacco use, chronic mild macrocytic anemia, folic acid deficiency, MGUS presented to ER with ongoing and progressive ataxia, visual disturbance, paresthesias, weakness, hallucinations CT head, CTA head and neck: There is no hemorrhage, mass effect, or evidence of acute territorial ischemia by CT criteria. Unremarkable CT angiogram of the brain. No change from 12/08/2022. Unremarkable CT angiogram of the neck. DDx: Stroke, Wernicke encephalopathy, thiamine deficiency, underlying psych disorder. Suspect Wernicke encephalopathy with symptoms of ataxia, encephalopathy, nystagmus on exam and patient's alcohol use Thiamine, folate, B6, B12 labs pending Drug screen pending MRI brain Start thiamine 500 mg IV TID x2 days, reassess for further thiamine treatment for Wernicke encephalopathy Multivitamin, folate daily Neurology consult CBC, BMP, A1c, lipid panel in a.m. (3) Alcohol abuse: Plan: Drinks 5-6 beers daily Alcohol withdrawal protocol with gabapentin, Ativan (4) Hypomagnesemia: Plan: Magnesium: 1.4 In ER given 1 g magnesium sulfate IV Continue replace and monitor (5) HTN (hypertension): Plan: BP elevated in ER Patient reports is unsure if she has been taking her losartan as prescribed. Patient is also very anxious Monitor BP Continue losartan, may need to add additional agents (6) Chronic anemia: Plan: History chronic macrocytic anemia, folic acid deficiency, MGUS Hgb: 9.7. Was 10.2 on 01/31/2023 Follows with [facility] [place] (7) Chronic hyponatremia: Plan: Na: 131. Baseline~130 Monitor (8) Depression: Plan: Continue bupropion, duloxetine (9) Fibromyalgia: Plan: Hold pregabalin while on gabapentin for alcohol withdrawal protocol Continue meloxicam (10) Tobacco use: Plan: Patient's reports smokes couple cigarettes daily Patient requests nicotine patch if needed Smoking cessation encouraged (11) Moderate persistent asthma: Plan: History asthma/COPD No signs exacerbation Continue home inhalers (12) GERD (gastroesophageal reflux disease): Plan: Continue PPI DVT Prophylaxis Lovenox SQ Full Code as per discussion with pt Follows with Dr Myesha Cavanaugh for routine care Pt was seen and care coordinated with Dr Mccollum. See addendum I spent a total of 80 minutes reviewing notes, outpatient records, labs, medication, coordinating, documenting and providing care for this patient excluding time spent in the performance of separately billed services. History of Present Illness Chief Complaint: Difficulty walking Primary Care Provider: Myesha Cavanaugh MD Patient is 52-year-old female with PMH HTN, moderate persistent asthma, COPD, depression, fibromyalgia, GERD, alcohol use, tobacco use, chronic mild macrocytic anemia, folic acid deficiency, MGUS presented to ER with multiple complaints. Patient reports for the last several months has had ongoing neurological symptoms. Reports 3 months ago had left-sided facial numbness. She has been noting difficulty with ambulation, stumbling for over 3 months. Reports legs feel weak with walking. Also with noted left arm weakness for over 3 months. She reports recently feels like right arm is becoming weak as well. She is left-hand dominant. Reports last couple days has been painting pictures with left hand without difficulty however states is not able to raise bilateral arms above 90 degrees secondary to arms feeling weak. Sometimes has paresthesias left arm. She has not noted any paresthesias to right upper extremity or bilateral lower extremities. Reports intermittent falls. Last reported several weeks ago. reports lost 25 pounds over past couple of months. Patient also reports has had intermittent stuttering. She states has had intermittent double vision. Has been having trouble remembering things. Has had visual hallucinations described as outline of a person. Patient also reports intermittent auditory hallucinations described as hearing person talking or music playing. She reports these hallucinations have been ongoing for weeks if not longer. Drinks 5-6 beers daily. Reports last drink was 5 PM yesterday. States in past when she has not had a drink she has tremors and sweats. Denies history seizure. Per chart review history of left facial numbness, ataxia dating back to November 2022 and was seen in ER on 12/08/2022 for symptoms and had CT head and neck that were negative for stroke and was discharged home. Had follow-up with PCP and was referred to neurology however has not been seen yet. She was ordered brain MRI, EMG however has not had completed. Denies fever/chills, diaphoresis, N/V/D/C, WOLF, syncope, vision loss, slurred speech, neck pain, CP, SOB, orthopnea, palpitations, cough, sore throat, choking, rhinorrhea, abdominal pain, extremity edema, rashes, dysuria, hematuria. Allergies Allergy/AdvReac Type Severity Reaction Status Date / Time latex AdvReac Unknown ITCHY Unverified 03/08/23 15:06 amoxicillin AdvReac thrush Verified 03/08/23 15:09 nickel AdvReac Rash Verified 03/08/23 15:09 Home Medications Medication Instructions Recorded Confirmed Type albuterol sulfate 90 mcg/actuation 2 puff inhalation Q4 PRN Shortness 09/25/19 03/08/23 History aerosol inhaler Of Breath Or Wheezing bupropion HCl 300 mg 24 hr tablet, 300 mg PO DAILY 09/25/19 03/08/23 History extended release ipratropium 20 mcg-albuterol 100 1 puff inhalation UD 09/25/19 03/08/23 History mcg/actuation mist for inhalation (Combivent Respimat) loratadine 10 mg tablet 10 mg PO DAILY 09/25/19 03/08/23 History lorazepam 0.5 mg tablet 0.5 mg PO BID PRN Anxiety 09/25/19 03/08/23 History trazodone 50 mg tablet 50 mg PO HS 09/25/19 03/08/23 History duloxetine 60 mg capsule,delayed 60 mg PO QAM 03/08/23 03/08/23 History release folic acid 1 mg tablet 2 mg PO DAILY 03/08/23 03/08/23 History losartan 50 mg tablet 50 mg PO DAILY 03/08/23 03/08/23 History magnesium oxide 400 mg PO DAILY 03/08/23 03/08/23 History meloxicam 7.5 mg tablet 7.5 mg PO DAILY 03/08/23 03/08/23 History mometasone-formoterol HFA 200 2 puff inhalation BID 03/08/23 03/08/23 History mcg-5 mcg/actuation aerosol inhaler (Dulera) omeprazole 20 mg capsule,delayed 20 mg PO DAILY 03/08/23 03/08/23 History release pregabalin 150 mg capsule 150 mg PO AMHS 03/08/23 03/08/23 History Past Med/Surg History Medical History (Updated 03/08/23 @ 18:30 by Mary Quan PA-C) Alcohol abuse Asthma Chronic anemia Chronic hyponatremia Depression Fibromyalgia GERD (gastroesophageal reflux disease) HTN (hypertension) Moderate persistent asthma Tobacco use Vancomycin-induced nephrotoxicity Surgical History (Updated 03/08/23 @ 18:30 by Mary Quan PA-C) History of spinal surgery Hx of tonsillectomy Family History (Updated 03/08/23 @ 18:30 by Mary Quan PA-C) Other Asthma Cancer Social History (Updated 03/08/23 @ 18:31 by Mary Quan PA-C) Smoking Status: Current some day smoker Tobacco Type: Cigarettes Hx Alcohol Use: Yes Alcohol type: beer Alcohol Intake Frequency Comment: 5-6 daily Hx Substance Use: No Preferred Language: Greenlandic Feels Safe at Home: Yes Review of Systems Review of Systems: All systems reviewed & are unremarkable except as noted in HPI & below Physical Exam Physical Exam: General: +anxious, tearful, WDWN, appears older than stated age Head: normocephalic, atraumatic Eyes: PERRL, EOM's intact, conjunctiva non-injected, anicteric ENT: normal inspection external ears, nose, mucous membranes moist Neck: supple, trachea midline Lungs: clear, no respiratory distress, no wheezing/rhonchi/rales CV: RRR, no murmur, no pretibial edema Abd: normal BS, soft, non-tender Ext: no cyanosis, no calf tenderness Neuro: A&O x 3, +tearful, anxious. +horizontal nystagmus, facial sensation is intact and symmetric, face is strong and symmetric, hearing grossly intact, soft palate elevates symmetrically, +intermittent stuttering speech, shoulder shrug intact, tongue is midline, +slow movement side to side, no fasciculations noted, Shoulder extension bilateral forward arm raise to 90 degrees, arm flexion and extension at elbows 5/5 bilaterally, strong and equal supplemental nurse strength bilaterally, BLE: passive ROM intact, BLE limited active ROM to straight leg raise to approx 30 degrees, able to actively flex and extend at knees and hips bilaterally, full resistance to plantar flexion and extension unable to do finger to nose or rapid alternating movements. unable to stand and ambulate for exam Skin: warm, dry Results & Data Results & Data Vital Signs (Past 12 Hours) Vital Signs Temp Pulse Pulse Resp BP BP Pulse Ox 03/08/23 16:22 84 178/96 H 99 03/08/23 15:44 81 175/109 H 99 03/08/23 15:26 83 18 184/104 H 97 03/08/23 13:40 99 03/08/23 13:40 03/08/23 14:08 91 H 03/08/23 13:33 36.5 C 96 H 18 139/104 H 98 O2 Del Method 03/08/23 16:22 Room Air 03/08/23 15:44 Room Air 03/08/23 15:26 Room Air 03/08/23 13:40 Room Air 03/08/23 13:40 Room Air 03/08/23 14:08 03/08/23 13:33 Room Air Laboratory Results Short CBC 03/08/23 Range/Units 14:11 WBC 8.65 (4.8-10.8) K/ul Hgb 9.7 L (12.0-16.0) g/dl Hct 26.5 L (37.0-47.0) % Plt Count 233 (130-400) K/uL BMP 03/08/23 14:11 Sodium 131 L Potassium 3.7 Chloride 99 Carbon Dioxide 24 BUN 12 Creatinine 1.03 Glucose 87 Calcium 9.5 Liver Function 03/08/23 Range/Units 14:11 Total Bilirubin 0.5 (0.2-1.0) mg/dl AST 21 (13-39) U/L ALT 13 (7-52) U/L Alkaline Phosphatase 48 (34-104) U/L Albumin 4.4 (3.4-5.0) gm/dl Diagnostic Findings Chest X-Ray 03/08/23 13:40 XR chest 1V portable CLINICAL HISTORY: stroke alert COMPARISON STUDY: Chest CT September 25, 2019. Chest radiograph December 08, 2022. FINDINGS: Lung volumes are normal. There is no consolidation to suggest pneumonia. Linear left perihilar density favors atelectasis. There is no pneumothorax or pleural effusion. Cardiac size is normal. Mediastinal contours are normal. There is no evidence for pulmonary edema. IMPRESSION: No acute cardiopulmonary findings. ACT 112: Negative or not required by law. Electronically signed by: Len Chappell M.D. 03/08/2023 2:[address] 03/08/23 13:[address] OF THE BRAIN; CT ANGIOGRAM OF THE BRAIN; CT ANGIOGRAM OF THE NECK CLINICAL HISTORY: Neurological deficit. Stroke like symptoms. COMPARISON STUDY: CT angiogram of the head and neck dated 12/08/2022. TECHNIQUE: Unenhanced axial CT scan of the brain is performed. Subsequently, fol lowing the IV administration of 120 of Optiray 320, CT angiogram of the head and neck was performed from the aortic arch to the vertex. Images are reviewed in the axial, sagittal, and coronal planes. 3-D MIPS images are created and assessed. IV contrast was administered without complication. All measurements were calculated based on NASCET criteria. A dose lowering technique was utilized adhering to the principles of ALARA. CT DOSE: 953.71 mGy.cm FINDINGS: Brain parenchyma: The brain parenchyma is normal in appearance. There is no hemorrhage, mass effect, or evidence of acute territorial ischemia by CT criteria. There is no evidence of enhancing mass lesion on the angiogram phase images. The ventricles, sulci, and cisterns are normal in configuration. Butler- white matter differentiation is preserved. No extra-axial fluid collection is seen. Thoracic aorta: Visualized portions of the thoracic aorta are normal in caliber. The aortic arch demonstrates standard 3-vessel anatomy. Right carotid arterial system: The right common carotid artery is widely patent, as are the right internal and external carotid arteries. Left carotid arterial system: The left common carotid artery is widely patent, as are the left internal and external carotid arteries. Vertebral arteries: Widely patent bilaterally nothing left-sided dominance. Subclavian arteries: Widely patent bilaterally. Intracranial vasculature: The internal carotid arteries are patent at the skull base, as are the anterior and middle cerebral arteries bilaterally. The vertebrobasilar system and posterior cerebral arteries are widely patent. The left vertebral artery is dominant. There is no aneurysm, high-grade stenosis, or focal vessel cut off seen throughout the intracranial circulation. Jugular veins: Patent bilaterally. Dural sinuses: Patent. Lung apices: Partially visualized upper lobe lung parenchyma appears clear. Soft tissues: The visualized pharyngeal soft tissues are normal in appearance noting angiographic phase technique. The oropharyngeal airway appears widely patent. The salivary and thyroid glands are normal in appearance. No cervical lymphadenopathy is seen. Skeletal structures: The skeletal structures are osteopenic. The calvarium appears intact. The cervical spine is maintained noting advanced multilevel spondylosis. No lytic or blastic lesion is seen. Orbits: The bony orbits are intact. Orbital contents are normal as visualized. Sinuses and mastoids: The paranasal sinuses are clear. The mastoid air cells are well pneumatized. IMPRESSION: 1. There is no hemorrhage, mass effect, or evidence of acute territorial ischemia by CT criteria. 2. Unremarkable CT angiogram of the brain. No change from 12/08/2022. 3. Unremarkable CT angiogram of the neck. No change from 12/08/2022. ACT 112: Negative or not required by law. Electronically signed by: Miquel Méndez M.D. 03/08/2023 4:25 PM Head CTA 03/08/23 14:[address] OF THE BRAIN; CT ANGIOGRAM OF THE BRAIN; CT ANGIOGRAM OF THE NECK CLINICAL HISTORY: Neurological deficit. Stroke like symptoms. COMPARISON STUDY: CT angiogram of the head and neck dated 12/08/2022. TECHNIQUE: Unenhanced axial CT scan of the brain is performed. Subsequently, following the IV administration of 120 of Optiray 320, CT angiogram of the head and neck was performed from the aortic arch to the vertex. Images are reviewed in the axial, sagittal, and coronal planes. 3-D MIPS images are created and assessed. IV contrast was administered without complication. All measurements were calculated based on NASCET criteria. A dose lowering technique was utilized adhering to the principles of ALARA. CT DOSE: 953.71 mGy.cm FINDINGS: Brain parenchyma: The brain parenchyma is normal in appearance. There is no hemorrhage, mass effect, or evidence of acute territorial ischemia by CT criteria. There is no evidence of enhancing mass lesion on the angiogram phase images. The ventricles, sulci, and cisterns are normal in configuration. Butler- white matter differentiation is preserved. No extra-axial fluid collection is seen. Thoracic aorta: Visualized portions of the thoracic aorta are normal in caliber. The aortic arch demonstrates standard 3-vessel anatomy. Right carotid arterial system: The right common carotid artery is widely patent, as are the right internal and external carotid arteries. Left carotid arterial system: The left common carotid artery is widely patent, as are the left internal and external carotid arteries. Vertebral arteries: Widely patent bilaterally nothing left-sided dominance. Subclavian arteries: Widely patent bilaterally. Intracranial vasculature: The internal carotid arteries are patent at the skull base, as are the anterior and middle cerebral arteries bilaterally. The vertebrobasilar system and posterior cerebral arteries are widely patent. The left vertebral artery is dominant. There is no aneurysm, high-grade stenosis, or focal vessel cut off seen throughout the intracranial circulation. Jugular veins: Patent bilaterally. Dural sinuses: Patent. Lung apices: Partially visualized upper lobe lung parenchyma appears clear. Soft tissues: The visualized pharyngeal soft tissues are normal in appearance noting angiographic phase technique. The oropharyngeal airway appears widely patent. The salivary and thyroid glands are normal in appearance. No cervical lymphadenopathy is seen. Skeletal structures: The skeletal structures are osteopenic. The calvarium appears intact. The cervical spine is maintained noting advanced multilevel spondylosis. No lytic or blastic lesion is seen. Orbits: The bony orbits are intact. Orbital contents are normal as visualized. Sinuses and mastoids: The paranasal sinuses are clear. The mastoid air cells are well pneumatized. IMPRESSION: 1. There is no hemorrhage, mass effect, or evidence of acute territorial ischemia by CT criteria. 2. Unremarkable CT angiogram of the brain. No change from 12/08/2022. 3. Unremarkable CT angiogram of the neck. No change from 12/08/2022. ACT 112: Negative or not required by law. Electronically signed by: Miquel Méndez M.D. 03/08/2023 4:25 PM Neck CTA 03/08/23 14:[address] OF THE BRAIN; CT ANGIOGRAM OF THE BRAIN; CT ANGIOGRAM OF THE NECK CLINICAL HISTORY: Neurological deficit. Stroke like symptoms. COMPARISON STUDY: CT angiogram of the head and neck dated 12/08/2022. TECHNIQUE: Unenhanced axial CT scan of the brain is performed. Subsequently, following the IV administration of 120 of Optiray 320, CT angiogram of the head and neck was performed from the aortic arch to the vertex. Images are reviewed in the axial, sagittal, and coronal planes. 3-D MIPS images are created and assessed. IV contrast was administered without complication. All measurements were calculated based on NASCET criteria. A dose lowering technique was utilized adhering to the principles of ALARA. CT DOSE: 953.71 mGy.cm FINDINGS: Brain parenchyma: The brain parenchyma is normal in appearance. There is no hemorrhage, mass effect, or evidence of acute territorial ischemia by CT criteria. There is no evidence of enhancing mass lesion on the angiogram phase images. The ventricles, sulci, and cisterns are normal in configuration. Butler- white matter differentiation is preserved. No extra-axial fluid collection is seen. Thoracic aorta: Visualized portions of the thoracic aorta are normal in caliber. The aortic arch demonstrates standard 3-vessel anatomy. Right carotid arterial system: The right common carotid artery is widely patent, as are the right internal and external carotid arteries. Left carotid arterial system: The left common carotid artery is widely patent, as are the left internal and external carotid arteries. Vertebral arteries: Widely patent bilaterally nothing left-sided dominance. Subclavian arteries: Widely patent bilaterally. Intracranial vasculature: The internal carotid arteries are patent at the skull base, as are the anterior and middle cerebral arteries bilaterally. The vertebrobasilar system and posterior cerebral arteries are widely patent. The left vertebral artery is dominant. There is no aneurysm, high-grade stenosis, or focal vessel cut off seen throughout the intracranial circulation. Jugular veins: Patent bilaterally. Dural sinuses: Patent. Lung apices: Partially visualized upper lobe lung parenchyma appears clear. Soft tissues: The visualized pharyngeal soft tissues are normal in appearance noting angiographic phase technique. The oropharyngeal airway appears widely patent. The salivary and thyroid glands are normal in appearance. No cervical lymphadenopathy is seen. Skeletal structures: The skeletal structures are osteopenic. The calvarium appears intact. The cervical spine is maintained noting advanced multilevel spondylosis. No lytic or blastic lesion is seen. Orbits: The bony orbits are intact. Orbital contents are normal as visualized. Sinuses and mastoids: The paranasal sinuses are clear. The mastoid air cells are well pneumatized.
[2023-03-08] MEDS ORDERED: LORazepam 2 MG/1 ML VIAL IV STA (18:05)
[2023-03-08] MEDS ORDERED: ALBUTEROL HFA 8 GM INHALER INH PRN (20:19)
[2023-03-08] MEDS ORDERED: GABAPENTIN 1200MG ALCOHOL WITHDRAWAL LOAD PO STA (20:19)
[2023-03-08] MEDS ORDERED: POLYETHYLENE (MIRALAX) 17 GM PACK PO PRN (20:19)
[2023-03-08] MEDS ORDERED: PHARMACIST DISCHARGE MED REC CONSULT PRN (20:19)
[2023-03-08] MEDS ORDERED: LORazepam 2 MG/1 ML VIAL IV PRN (20:19)
[2023-03-08] MEDS ORDERED: MAGNESIUM SULFATE / D5W 1 GM/100 ML BAG IV ONE (20:30)
[2023-03-08] MEDS ORDERED: GABAPENTIN 600 MG TAB PO ONE (20:30)
[2023-03-08] MEDS: NICOTINE 7 MG/24 HR TDSY TD SCH (21:04)
[2023-03-08] MEDS: FLUTICASONE/VILANTEROL 200/25MCG 14 PUFFS/INHALER INH SCH (21:06)
[2023-03-08] MEDS: traZODone HCL 50 MG TAB PO SCH (21:07)
[2023-03-08] MEDS: ENOXAPARIN INJ 40 MG/0.4 ML SYR SQ SCH (21:10)
[2023-03-08] MEDS: THIAMINE HCL 500 MG in SODIUM CHLORIDE 0.9% 50 ML IV SCH (21:10)
[2023-03-08 21:38] LABS: Vitamin B12 227 pg/ml (180-914)
--- NOTE | 2023-03-08 22:50 | Magnetic Resonance Report ---
Exam(s): MRI HEAD Without Contrast EXAM: MR Head Without Intravenous Contrast CLINICAL HISTORY: Reason for exam: ataxia, paresthesias. TECHNIQUE: Magnetic resonance images of the head/brain without intravenous contrast in multiple planes. COMPARISON: No relevant prior studies available. FINDINGS: Brain: Mild cerebral atrophy. Mild chronic periventricular ischemic demyelination changes seen due to small vessel disease. No hemorrhage. Ventricles: Unremarkable. No ventriculomegaly. Bones/joints: Unremarkable. Sinuses: Unremarkable as visualized. No acute sinusitis. Mastoid air cells: Unremarkable as visualized. No mastoid effusion. Orbits: Unremarkable as visualized. IMPRESSION: No evidence of acute infarct Electronically signed by: Cole Spicer MD 03/08/23 22:49 PM
[2023-03-09] MEDS ORDERED: LORazepam 2 MG/1 ML VIAL IV STA (03:29)
[2023-03-09 04:06] LABS: Amphetamines+Metham, Urine Neg (Neg); Barbiturates, Urine Neg (Neg); Benzodiazepine, Urine Neg (Neg); Cocaine, Urine Neg (Neg); MDMA (Ecstacy), Urine Pos (Neg); Methadone, Urine Neg (Neg); Opiate, Urine Neg (Neg); Phencyclidine, Urine Neg (Neg)
[2023-03-09] MEDS ORDERED: LORazepam 2 MG/1 ML VIAL IV PRN ×3 (04:33)
[2023-03-09] MEDS ORDERED: Ativan IV Alcohol Withdrawal--Active Protocol IV PRN (04:33)
[2023-03-09] MEDS ORDERED: METOPROLOL TARTRATE 1 MG/ML VIAL IV STA (04:35)
[2023-03-09] MEDS: THIAMINE HCL 500 MG in SODIUM CHLORIDE 0.9% 50 ML IV SCH ×3 (05:08→19:48)
[2023-03-09] MEDS: GABAPENTIN 600 MG TAB PO SCH ×3 (05:10→22:30)
[2023-03-09 06:11] LABS: Basophils # (auto) 0.04 K/uL (0-0.2); Basophils % (auto) 0.6 %; Eosinophils # (auto) 0.05 K/uL (0-0.50); Eosinophils % (auto) 0.8 %; Hematocrit (blood only) 26.4 % (37.0-47.0); Hemoglobin 9.5 g/dl (12.0-16.0); Immature Granulocytes # (auto) 0.02 K/uL (0.01-0.20); Immature Granulocytes % (auto) 0.3 %; Lymphocytes # (auto) 2.11 K/uL (1.2-3.4); Lymphocytes % (auto) 33.8 %; Mean Corpuscular Hemoglobin 34.4 pg (25.0-34.0); Mean Corpuscular Volume 95.7 fL (80.0-100.0); Monocytes # (auto) 0.58 K/uL (0.11-0.59); Monocytes % (auto) 9.3 %; Neutrophils # (auto) 3.45 K/uL (1.40-6.50); Neutrophils % (auto) 55.2 %; Platelet Count 226 K/uL (130-400); RDW Coefficient of Variation 13.1 % (11.5-14.5); RDW Standard Deviation 45.4 fL (36.4-46.3); Red Blood Count 2.76 M/uL (4.20-5.40); White Blood Count 6.25 K/ul (4.8-10.8)
[2023-03-09 06:37] LABS: Chol HDL Ratio 1.6 (0-5)
[2023-03-09 08:32] LABS: Estimated Average Glucose 71 mg/dl; Hemoglobin A1C 4.1 % (4.5-5.6)
[2023-03-09] MEDS ORDERED: buPROPion XL 300 MG TABCR PO SCH (09:00)
--- NOTE | 2023-03-09 09:13 | Neurology Consultation ---
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 She is ataxic, has myoclonus, and nystagmus. She is modestly inattentive. No evidence of acute or subacute infarct on MRI. The MRI does reveal cerebellar vermian atrophy and mild chronic small vessel ischemic disease. No evidence of seizures or encephalitis. No further testing from a neurological perspective is necessary at this time. Continue supportive medical care in the context of alcohol dependency, and alcohol related encephalopathy. She will need additional counseling regarding alcohol cessation. With persistent abstinence from alcohol, I would expect some improvement in her ataxia and other neurologic signs. Agree with thiamine supplementation. No further immediate neurologic recommendations. Please feel free to contact me if you have any questions regarding this neurological assessment. History of Present Illness Reason for Consultation: ataxia Requesting Physician: Mary Quan PA-C Attending Physician: Marty Sprague MD History of Present Illness The patient is a 52-year-old female with a history of alcohol use disorder who presented to the emergency department yesterday for further assessment of subacute, persistent symptoms for the past few months including poor balance, tremulousness, stuttering speech, auditory and visual hallucinations. She endorses a history of longstanding moderate to heavy alcohol consumption, 5-6 beers per day. She had presented to the [facility] emergency department for similar symptoms on December 08, 2022 as well. No history of seizures or head injury. She denies fevers, chills, or headache. No vertigo. She has been afebrile. She has no leukocytosis, she has a chronic anemia. She is mildly hyponatremic. Renal function normal. She had a mildly reduced magnesium level yesterday. Normal transaminases. Normal vitamin B12 and folate levels. Urine toxicology screen positive for MDMA and THC. Ethyl alcohol level less than 10.0. CT angiography of the head and neck unremarkable. Brain MRI negative for acute or subacute infarct. I did independently review these images. There is mild to moderate generalized atrophy and notable cerebellar vermian atrophy. There is minimal chronic small vessel ischemic change. No evidence of cerebral hemorrhage or amyloid angiopathy. Allergies Allergy/AdvReac Type Severity Reaction Status Date / Time latex AdvReac Unknown ITCHY Unverified 03/08/23 15:06 amoxicillin AdvReac thrush Verified 03/08/23 15:09 nickel AdvReac Rash Verified 03/08/23 15:09 Home Medications Medication Instructions Recorded Confirmed Type albuterol sulfate 90 mcg/actuation 2 puff inhalation Q4 PRN Shortness 09/25/19 03/08/23 History aerosol inhaler Of Breath Or Wheezing bupropion HCl 300 mg 24 hr tablet, 300 mg PO DAILY 09/25/19 03/08/23 History extended release ipratropium 20 mcg-albuterol 100 1 puff inhalation UD 09/25/19 03/08/23 History mcg/actuation mist for inhalation (Combivent Respimat) loratadine 10 mg tablet 10 mg PO DAILY 09/25/19 03/08/23 History lorazepam 0.5 mg tablet 0.5 mg PO BID PRN Anxiety 09/25/19 03/08/23 History trazodone 50 mg tablet 50 mg PO HS 09/25/19 03/08/23 History duloxetine 60 mg capsule,delayed 60 mg PO QAM 03/08/23 03/08/23 History release folic acid 1 mg tablet 2 mg PO DAILY 03/08/23 03/08/23 History losartan 50 mg tablet 50 mg PO DAILY 03/08/23 03/08/23 History magnesium oxide 400 mg PO DAILY 03/08/23 03/08/23 History meloxicam 7.5 mg tablet 7.5 mg PO DAILY 03/08/23 03/08/23 History mometasone-formoterol HFA 200 2 puff inhalation BID 03/08/23 03/08/23 History mcg-5 mcg/actuation aerosol inhaler (Dulera) omeprazole 20 mg capsule,delayed 20 mg PO DAILY 03/08/23 03/08/23 History release pregabalin 150 mg capsule 150 mg PO AMHS 03/08/23 03/08/23 History Patient History Medical History (Updated 03/09/23 @ 09:05 by Antony Cuba MD) Alcohol abuse Asthma Chronic anemia Chronic hyponatremia Depression Fibromyalgia GERD (gastroesophageal reflux disease) HTN (hypertension) Moderate persistent asthma Tobacco use Vancomycin-induced nephrotoxicity Surgical History (Updated 03/08/23 @ 18:30 by Mary Quan PA-C) History of spinal surgery Hx of tonsillectomy Family History (Updated 03/08/23 @ 18:30 by Mary Quan PA-C) Other Asthma Cancer Social History (Updated 03/08/23 @ 18:31 by Mary Quan PA-C) Smoking Status: Current every day smoker Tobacco Type: Cigarettes Second Hand Exposure: Yes; Do You Dip or Chew Tobacco: No; Hx Alcohol Use: Yes Alcohol type: beer Alcohol Intake Frequency Comment: 5-6 daily Hx Substance Use: No Preferred Language: Bots[place] Communication Ability: Effective Collective Bargaining Specialist Required: No Beliefs That Will Affect Care: None Current Living Situation: Significant Other Other Information That Helps Us Care for You: No Feels Safe at Home: Yes Safety Concerns: Feels Safe At This Time Assistive Devices: Cane Review of Systems Constitutional: no fever and no chills Eyes: + diplopia; no blind spots Ear, Nose, Mouth, Throat: no hearing loss Respiratory: no cough and no dyspnea Cardiovascular: no chest pain and no palpitations Gastrointestinal: no nausea and no vomiting Genitourinary: no urinary incontinence Musculoskeletal: no neck pain and no myalgia Integumentary: no rash and no lesions Neurologic: as per Subjective / HPI, + gait abnormality, + lack of coordination, + abnormal movements, + behavioral changes and + confusion Psychiatric: as per Subjective / HPI, + depression and + hallucinations Hematologic / Lymphatic: no easy bleeding and no easy bruising Exam (Neuro) Constitutional: + thin and + behavioral limitations; no acute distress Eyes: normal visual jacob by confrontation, PERRL, EOM intact bilaterally and + nystagmus; no papilledema Cardiovascular: Vessels: no carotid bruit Neurologic: Oriented to:: Person and Place; negative Time Memory: Remote Intact; negative Short Term Intact Attention: negative Span Intact or Concentration Intact Speech Fluency: negative Dysarthria or Dysfluency Speech Aphasia: negative Aphasia Fund of Knowledge: Past History and Vocabulary Cranial Nerves: Normal II, III, IV, , V, VII, VIII, IX, X, XI and XII Motor Strength: Normal Lower Extremities and Normal Upper Extremities Motor Tone: Normal Lower Extremities and Normal Upper Extremities Muscle Bulk/Involuntary Movements: Action Tremor Sensation: Light Touch Intact, Pain/Temperature Intact, Vibration Intact and Proprioception Intact Coordination: Limited Balance, Dysdiadochokinesia, Finger-Nose Abnormal and Heel-Jackson Abnormal Deep Tendon Reflexes: Rt Triceps: 2+, Lt Triceps: 2+, Rt Biceps: 2+, Lt Biceps: 2+, Rt Brachioradialis: 2+, Lt Brachioradialis: 2+, Rt Patellar: 2+, Lt Patellar: 2+, Rt Ankle: 2+ and Lt Ankle: 2+ Special Tests: negative Babinski Present Gait: Normal Station and Gait Details: Patient exhibits mild to moderate myoclonus Results & Data Vital Signs (Past 12 Hours) Vital Signs Temp Pulse Pulse Pulse Resp BP BP 03/09/23 08:04 36.5 C 78 20 138/82 03/09/23 05:15 36.8 C 68 16 135/85 03/09/23 05:12 68 135/85 03/09/23 05:02 81 137/106 H 03/09/23 04:54 105 H 173/108 H 03/09/23 03:49 36.7 C 102 H 18 173/108 H Pulse Ox O2 Del Method 03/09/23 08:04 96 Room Air 03/09/23 05:15 96 Room Air 03/09/23 05:12 03/09/23 05:02 03/09/23 04:54 03/09/23 03:49 98 Room Air Laboratory Results WBC 6.25, hemoglobin 9.5, hematocrit 26.4, platelet count 226, sodium 131, BUN 12, creatinine 1.03, calcium 9.5, magnesium 1.4, AST 21, ALT 13, thiamine level pending, vitamin B12 227, folate greater than 22.30. Coding Level of Care Code 84586 INT INP/OBS CARE MIN Diagnoses Alcoholic encephalopathy G31.2 Alcoholic cerebellar degeneration F10.20; G31.2
[2023-03-09] MEDS: NICOTINE 7 MG/24 HR TDSY TD SCH (09:33)
[2023-03-09] MEDS: LORATADINE 10 MG TAB PO SCH (09:35)
[2023-03-09] MEDS: LOSARTAN POTASSIUM 50 MG TAB PO SCH (09:35)
[2023-03-09] MEDS: MELOXICAM 7.5 MG TAB PO SCH (09:36)
[2023-03-09] MEDS: PANTOprazole 40 MG TAB PO SCH (09:36)
[2023-03-09] MEDS: DULoxetine HCL 60 MG CAP PO SCH (09:36)
[2023-03-09] MEDS: MAGNESIUM OXIDE 400 MG TAB PO SCH (09:36)
[2023-03-09] MEDS: FOLIC ACID 1 MG TAB PO SCH (09:36)
[2023-03-09] MEDS: MULTIVITAMIN TAB PO SCH (09:36)
[2023-03-09] MEDS: ACETAMINOPHEN 325 MG TAB PO PRN (12:44)
--- NOTE | 2023-03-09 13:50 | Psychiatric Consultation ---
Date of Consultation March 09, 2023 Impression / Recommendations Impression Diagnostically most consistent with alcohol withdrawal encephalopathy (hallucinations are a common symptom) given high initial AWSS scores and appreciate neurological consultation and findings consistent with alcohol cerebellar degeneration. Suspect alcohol use disorder as well as unspecified depression and anxiety likely a combination of substance-induced as well as MDD, CARRIE and grief. Acute risk of self-harm is low given denial of SI and no longer with intoxication. Given constellation of neurological symptoms, apparent recent changes on eye exam and psychiatric symptoms supranuclear palsy or other more rare disorder possible but felt to be less likely given neurology exam/input and her recent of increased alcohol use this week following of her father. For now will discontinue Wellbutrin given dopaminergic effects can worsen hallucinations and will add prn zyprexa for acute distress but ativan should be first choice given suspicion for alcohol withdrawal. (1) Hallucinations: (2) Alcoholic encephalopathy: (3) Depression: (4) Ataxia: Plan -Psychiatric liason will provide resources on local mental health services and substance use services and attempt to set them up with outpatient services/referrals as her mental status improves -Continue AWSS as well as thiamine and folic acid -If ultimately felt to be consistent with alcohol use disorder then consider starting naltrexone 50mg qd -Discontinue Wellbutrin -Can continue with duloxetine and trazodone -Zyprexa 5mg HS ODT added for acute agitation/hallucinations (but should only be used if ativan is ineffective as this will lower the seizure threshold and ativan is preferred treatment for hallucinations in context of alcohol withdrawal) -For behavioral emergency can use: Zyprexa 5mg ODT or IM Psych History Identifying Data 52 yo woman with history of depression, nystagmus, and neurological symptoms as well as alcohol use admitted medically for ataxia and visual changes. Psychiatry consulted for visual and auditory hallucinations. Chief Complaint "Listen I'm not like this all the time". History of Present Illness Poppy presented to the ED for worsened neurological symptoms including ataxia, dizziness, visual changes and recent visual and auditory hallucinations. She was evaluated by neurology this morning who noted evidence of changes on MRI brain consistent with cerebellar atrophy and some vessel ischemic disease as well as ongoing nystagmus, ataxia and myoclonus felt to be due to her alcohol use. In meeting with Poppy she is oriented to being in the hospital, city, month and year (though this takes her some time) but struggles to engage in a linear interview. She describes having visual hallucinations of seeing fully formed people, some known some unknown, in her home over the last few months. She attributed these people to being ghosts. She also experiences auditory hallucinations of hearing voices saying things such as "excuse me". No evidence for any bizarre hallucinations or delusions. Reports recent stress of her father dying earlier this week which has lead to increased grief and depression. She denies SI. Difficult to follow her train of thoughts of at times but responds well to redirection. Tearful suddenly at one point in our discussion and then quickly reconstitutes telling me "sorry I've been like that these past few days with suddenly going from calm to crying". Tells me earlier today she felt like she was "freaking out" and can't recall many details from meeting with the neurologist. States she's drinks alcohol "at least 5 nights per week" typically 1/2 bottle of wine and/or multiple beers, often 5-6 but she states sometimes 1-2 and "sometimes more like this last week because my dad ". Endorses psychiatric history of depression. History of two prior suicide attempts (last 14 years ago). One prior psychiatric hospitalization during her childhood. Allergies Allergy/AdvReac Type Severity Reaction Status Date / Time latex AdvReac Unknown ITCHY Unverified 03/08/23 15:06 amoxicillin AdvReac thrush Verified 03/08/23 15:09 nickel AdvReac Rash Verified 03/08/23 15:09 Home Medications Medication Instructions Recorded Confirmed Type albuterol sulfate 90 mcg/actuation 2 puff inhalation Q4 PRN Shortness 09/25/19 03/08/23 History aerosol inhaler Of Breath Or Wheezing bupropion HCl 300 mg 24 hr tablet, 300 mg PO DAILY 09/25/19 03/08/23 History extended release ipratropium 20 mcg-albuterol 100 1 puff inhalation UD 09/25/19 03/08/23 History mcg/actuation mist for inhalation (Combivent Respimat) loratadine 10 mg tablet 10 mg PO DAILY 09/25/19 03/08/23 History lorazepam 0.5 mg tablet 0.5 mg PO BID PRN Anxiety 09/25/19 03/08/23 History trazodone 50 mg tablet 50 mg PO HS 09/25/19 03/08/23 History duloxetine 60 mg capsule,delayed 60 mg PO QAM 03/08/23 03/08/23 History release folic acid 1 mg tablet 2 mg PO DAILY 03/08/23 03/08/23 History losartan 50 mg tablet 50 mg PO DAILY 03/08/23 03/08/23 History magnesium oxide 400 mg PO DAILY 03/08/23 03/08/23 History meloxicam 7.5 mg tablet 7.5 mg PO DAILY 03/08/23 03/08/23 History mometasone-formoterol HFA 200 2 puff inhalation BID 03/08/23 03/08/23 History mcg-5 mcg/actuation aerosol inhaler (Dulera) omeprazole 20 mg capsule,delayed 20 mg PO DAILY 03/08/23 03/08/23 History release pregabalin 150 mg capsule 150 mg PO AMHS 03/08/23 03/08/23 History Patient History Medical History Alcohol abuse Asthma Chronic anemia Chronic hyponatremia Depression Fibromyalgia GERD (gastroesophageal reflux disease) HTN (hypertension) Moderate persistent asthma Tobacco use Vancomycin-induced nephrotoxicity Surgical History History of spinal surgery Hx of tonsillectomy Family History Other Asthma Cancer Social History Smoking Status: Current every day smoker Tobacco Type: Cigarettes Second Hand Exposure: Yes; Do You Dip or Chew Tobacco: No; Hx Alcohol Use: Yes Alcohol type: beer Alcohol Intake Frequency Comment: 5-6 daily Hx Substance Use: No Preferred Language: Albanian Communication Ability: Impaired Magnetic Prospecting Operator Required: No Beliefs That Will Affect Care: None Current Living Situation: Significant Other Other Information That Helps Us Care for You: No Feels Safe at Home: Yes Safety Concerns: Feels Safe At This Time Assistive Devices: Walker Physical Exam Psychiatric: Orientation: alert and oriented x 3 Apperance: appropriately dressed and + disheveled Eye Contact: + fair eye contact Speech: normal rate/rhythm/volume of speech Affect: + labile affect Mood: + depressed mood and + anxious mood Thought Process: + circumstantial thought process and + looseness of associations Thought Content: reality based without delusions Suicidal Thoughts: denies suicidal thoughts Homicidal Thoughts: denies homicidal thoughts Hallucinations: + auditory hallucinations and + visual hallucinations Cognition: language grossly intact; + attention not intact Insight: + limited insight Judgment: + limited judgement Vital Signs (Past 24 Hours): Last Vital Signs Temp 36.4 C L 03/09/23 11:57 Pulse 87 03/09/23 11:57 Resp 18 03/09/23 11:57 BP 161/103 H 03/09/23 11:57 Pulse Ox 97 03/09/23 11:57 O2 Del Method Room Air 03/09/23 11:57 Review of Systems Unobtainable due to cognitive status Results & Data (PSY) Medications Administered Acetaminophen (Acetaminophen 325 Mg Tab) 650 mg PO Q4H PRN PRN Reason: Pain or Fever Stop: 04/07/23 20:18 Last Admin: 03/09/23 12:44 Dose: 650 mg Documented By: ISABELLA Bupropion HCl (Bupropion Xl 300 Mg Tabcr) 300 mg PO DAILY [facility] Stop: 04/08/23 08:59 Last Admin: 03/09/23 09:37 Dose: 300 mg Documented By: CHRISSY Duloxetine HCl (Duloxetine Hcl 60 Mg Cap) 60 mg PO QAM [facility] Stop: 04/08/23 08:59 Last Admin: 03/09/23 09:36 Dose: 60 mg Documented By: CHRISSY Enoxaparin Sodium (Enoxaparin Inj 40 Mg/0.4 Ml Syr) 40 mg SQ Q24H [facility] Stop: 04/07/23 20:59 Last Admin: 03/08/23 21:10 Dose: 40 mg Documented By: MELANI Fluticasone/Vilanterol (Fluticasone/Vilanterol 200/25mcg 14 Puffs/Inhaler) 1 puffs INH QPM [facility]; Protocol Stop: 04/07/23 20:59 Last Admin: 03/08/23 21:06 Dose: 1 puffs Documented By: MELANI Folic Acid (Folic Acid 1 Mg Tab) 2 mg PO DAILY [facility] Stop: 04/08/23 08:59 Last Admin: 03/09/23 09:36 Dose: 2 mg Documented By: CHRISSY Thiamine HCl 500 mg/ Sodium (Chloride) 55 mls @ 210 mls/hr IV Q8H [facility] Stop: 03/10/23 20:59 Last Infusion: 03/09/23 13:01 Dose: 0 mls/hr Documented By: Admin: 03/09/23 12:42 Dose: 210 mls/hr Documented By: Infusion: 03/09/23 05:24 Dose: 0 mls/hr Documented By: Admin: 03/09/23 05:08 Dose: 210 mls/hr Documented By: Infusion: 03/08/23 21:27 Dose: 0 mls/hr Documented By: Admin: 03/08/23 21:10 Dose: 210 mls/hr Documented By: MELANI Loratadine (Loratadine 10 Mg Tab) 10 mg PO DAILY [facility] Stop: 04/08/23 08:59 Last Admin: 03/09/23 09:35 Dose: 10 mg Documented By: CHRISSY Losartan Potassium (Losartan Potassium 50 Mg Tab) 50 mg PO DAILY [facility] Stop: 04/08/23 08:59 Last Admin: 03/09/23 09:35 Dose: 50 mg Documented By: CHRISSY Magnesium Oxide (Magnesium Oxide 400 Mg Tab) 400 mg PO DAILY [facility] Stop: 04/08/23 08:59 Last Admin: 03/09/23 09:36 Dose: 400 mg Documented By: CHRISSY Meloxicam (Meloxicam 7.5 Mg Tab) 7.5 mg PO DAILY [facility] Stop: 04/08/23 08:59 Last Admin: 03/09/23 09:36 Dose: 7.5 mg Documented By: CHRISSY Miscellaneous (Remove Nicoderm Patch) 1 each N/A DAILY@0859 [facility] Stop: 04/08/23 08:58 Last Admin: 03/09/23 09:34 Dose: 1 each Documented By: CHRISSY Multivitamins (Multivitamin Tab) 1 tab PO QAM [facility] Stop: 04/08/23 08:59 Last Admin: 03/09/23 09:36 Dose: 1 tab Documented By: CHRISSY Nicotine (Nicotine 7 Mg/24 Hr Tdsy) 7 mg TD QAM [facility] Stop: 04/07/23 20:18 Last Admin: 03/09/23 09:33 Dose: 7 mg Documented By: Admin: 03/08/23 21:04 Dose: 7 mg Documented By: MELANI Pantoprazole Sodium (Pantoprazole 40 Mg Tab) 40 mg PO DAILY [facility] Stop: 04/08/23 08:59 Last Admin: 03/09/23 09:36 Dose: 40 mg Documented By: CHRISSY Trazodone HCl (Trazodone Hcl 50 Mg Tab) 50 mg PO HS [facility] Stop: 04/07/23 20:59 Last Admin: 03/08/23 21:07 Dose: 50 mg Documented By: MELANI Coding Level of Care Code 57779 IN/OBS CONSULT LVL 3,45M Diagnoses Hallucinations R44.3 Alcoholic encephalopathy G31.2 Depression F32.A Ataxia R27.0 Time Spent (min) 55
--- NOTE | 2023-03-09 16:41 | Hospitalist Progress Note ---
Date of Service March 09, 2023 Assessment & Plan (1) Ataxia: (2) Visual disturbance: Plan: Patient is a 52 yr female with PMH HTN, moderate persistent asthma, COPD, depression, fibromyalgia, GERD, alcohol use, tobacco use, chronic mild macrocytic anemia, folic acid deficiency, MGUS presented to ER with ongoing and progressive ataxia, visual disturbance, paresthesias, weakness, hallucinations Strokelike symptoms Alcoholic withdrawal encephalopathy Alcoholic cerebellar degeneration Presents with ataxia, myoclonus, nystagmus Visual disturbance --MRI Brain:No evidence of acute infarct --Head CT:There is no hemorrhage, mass effect, or evidence of acute territorial ischemia by CT criteria. Unremarkable CT angiogram of the brain. No change from 12/08/2022. Unremarkable CT angiogram of the neck. No change from 12/08/2022. Continue thiamine Appreciate neurology input PT OT, fall precautions May benefit from ophthalmology evaluation as outpatient Appreciate psychiatry input Discontinue Wellbutrin Continue duloxetine, trazodone Zyprexa as needed for agitation Counseled to quit alcohol use (3) Alcohol abuse: Plan: Drinks 5-6 beers daily Continue Alcohol withdrawal protocol with gabapentin, Ativan Continue thiamine, folic acid Counseled to quit alcohol use (4) Hypomagnesemia: Plan: Replete electrolytes as needed Monitor (5) HTN (hypertension): Plan: Hypertensive urgency Likely secondary to alcohol withdrawal Continue losartan Clonidine as needed (6) Chronic anemia: Plan: H/O Chronic macrocytic anemia, folic acid deficiency, MGUS Follows with [facility] hematology Hemoglobin at baseline Monitor (7) Chronic hyponatremia: Plan: Baseline~130 Secondary to alcohol use Monitor (8) Depression: Plan: Continue duloxetine Discontinue bupropion as recommended by psychiatry (9) Fibromyalgia: Plan: Hold pregabalin while on gabapentin for alcohol withdrawal protocol Continue meloxicam PRN (10) Tobacco use: Plan: Patient's reports smokes couple cigarettes daily Smoking cessation encouraged (11) Moderate persistent asthma: Plan: History asthma/COPD No signs exacerbation Continue home inhalers (12) GERD (gastroesophageal reflux disease): Plan: Continue PPI DVT Prophylaxis Lovenox SQ Code Status Full Code Admission and Anticipated Discharge Date Admission Date: March 08, 2023 Subjective Patient is seen and examined at bedside States having intermittent hallucinations Reports balance issues, visual disturbance Discussed with psychiatry Input Denies chest pain, dyspnea, nausea, vomiting, abd pain Review of Systems Review of Systems: All systems reviewed & are unremarkable except as noted in Subjective Physical Exam Physical Exam: Physical Exam: Vitals signs as noted above General Appearance:Moderately built and nourished, Chronic ill appearing, no apparent distress Head: normocephalic, Atraumatic Eyes: normal inspection, EOMI Neck: supple, Trachea midline Respiratory/Chest: Decreased, CTA, No accessory muscle use Cardiovascular: S1, S2, No murmur Abdomen/GI:Soft, Non tender, Bowel sounds present Extremities/Musculoskeletal:normal inspection, no edema Neurologic/Psych:AAOX3, grossly no focal neurological deficits, +Tremor Skin: normal color, warm Results & Data Results & Data Vital Signs (Past 12 Hours) Vital Signs Temp Pulse Pulse Pulse Resp BP BP 03/09/23 13:00 36.6 C 80 20 164/85 H 03/09/23 12:00 03/09/23 11:57 36.4 C L 87 18 161/103 H 03/09/23 08:04 36.5 C 78 20 138/82 03/09/23 05:15 36.8 C 68 16 135/85 03/09/23 05:12 68 135/85 03/09/23 05:02 81 137/106 H 03/09/23 04:54 105 H 173/108 H Pulse Ox O2 Del Method 03/09/23 13:00 95 Room Air 03/09/23 12:00 Room Air 03/09/23 11:57 97 Room Air 03/09/23 08:04 96 Room Air 03/09/23 05:15 96 Room Air 03/09/23 05:12 03/09/23 05:02 03/09/23 04:54 Laboratory Results Short CBC 03/09/23 Range/Units 05:32 WBC 6.25 (4.8-10.8) K/ul Hgb 9.5 L (12.0-16.0) g/dl Hct 26.4 L (37.0-47.0) % Plt Count 226 (130-400) K/uL
[2023-03-09] MEDS ORDERED: OLANZapine ZYDIS 5 MG ORALLY DIS. TAB PO PRN (16:51)
[2023-03-09] MEDS ORDERED: cloNIDine HCL 0.1 MG TAB PO PRN (17:22)
[2023-03-09] MEDS: ENOXAPARIN INJ 40 MG/0.4 ML SYR SQ SCH (19:54)
[2023-03-09] MEDS: FLUTICASONE/VILANTEROL 200/25MCG 14 PUFFS/INHALER INH SCH (19:55)
[2023-03-09] MEDS: traZODone HCL 50 MG TAB PO SCH (19:55)
[2023-03-10] MEDS: GABAPENTIN 600 MG TAB PO SCH ×2 (05:32→15:18)
[2023-03-10] MEDS: THIAMINE HCL 500 MG in SODIUM CHLORIDE 0.9% 50 ML IV SCH ×2 (05:33→13:19)
[2023-03-10 06:28] LABS: Hematocrit (blood only) 26.1 % (37.0-47.0); Hemoglobin 9.3 g/dl (12.0-16.0); Mean Corpuscular Hemoglobin 34.3 pg (25.0-34.0); Mean Corpuscular Hgb Conc 35.6 g/dL (32.0-36.0); Mean Corpuscular Volume 96.3 fL (80.0-100.0); Mean Platelet Volume 10.1 fL (9.4-12.4); Platelet Count 215 K/uL (130-400); RDW Standard Deviation 44.9 fL (36.4-46.3); Red Blood Count 2.71 M/uL (4.20-5.40); White Blood Count 5.89 K/ul (4.8-10.8)
[2023-03-10 06:48] LABS: BUN Creatinine Ratio 9.6 (10-20); Calcium 9.2 mg/dl (8.6-10.3); Est GFR (Non-African American) 61.3 ml/min; Magnesium 1.6 mg/dl (1.7-2.4); Potassium 3.4 mmol/L (3.5-5.1)
[2023-03-10] MEDS: MAGNESIUM OXIDE 400 MG TAB PO SCH (08:06)
[2023-03-10] MEDS: FOLIC ACID 1 MG TAB PO SCH (08:07)
[2023-03-10] MEDS: MULTIVITAMIN TAB PO SCH (08:07)
[2023-03-10] MEDS: LOSARTAN POTASSIUM 50 MG TAB PO SCH (08:08)
[2023-03-10] MEDS: DULoxetine HCL 60 MG CAP PO SCH (08:09)
[2023-03-10] MEDS: LORATADINE 10 MG TAB PO SCH (08:09)
[2023-03-10] MEDS: PANTOprazole 40 MG TAB PO SCH (08:10)
[2023-03-10] MEDS: MELOXICAM 7.5 MG TAB PO SCH (08:10)
[2023-03-10] MEDS: NICOTINE 7 MG/24 HR TDSY TD SCH (08:11)
[2023-03-10] MEDS ORDERED: POTASSIUM CHLORIDE CRTAB 20 MEQ TABCR PO ONE (09:15)
[2023-03-10] MEDS ORDERED: MAGNESIUM SULFATE / D5W 1 GM/100 ML BAG IV ONE (09:15)
[2023-03-10] MEDS: ACETAMINOPHEN 325 MG TAB PO PRN (13:17)
[2023-03-10] MEDS: LIDOCAINE 5% 1 PATCH TD SCH (15:49)
--- NOTE | 2023-03-10 16:02 | Hospitalist Progress Note ---
Date of Service March 10, 2023 Assessment & Plan (1) Ataxia: (2) Visual disturbance: Plan: Patient is a 52 yr female with PMH HTN, moderate persistent asthma, COPD, depression, fibromyalgia, GERD, alcohol use, tobacco use, chronic mild macrocytic anemia, folic acid deficiency, MGUS presented to ER with ongoing and progressive ataxia, visual disturbance, paresthesias, weakness, hallucinations Strokelike symptoms Alcoholic withdrawal encephalopathy Alcoholic cerebellar degeneration Presents with ataxia, myoclonus, nystagmus Visual disturbance --MRI Brain:No evidence of acute infarct --Head CT:There is no hemorrhage, mass effect, or evidence of acute territorial ischemia by CT criteria. Unremarkable CT angiogram of the brain. No change from 12/08/2022. Unremarkable CT angiogram of the neck. No change from 12/08/2022. Continue thiamine Appreciate neurology input PT OT, fall precautions May benefit from ophthalmology evaluation as outpatient Appreciate psychiatry input Discontinue Wellbutrin Continue duloxetine, trazodone Zyprexa as needed for agitation Counseled to quit alcohol use Continue current management Monitor for alcohol withdrawal Patient not interested in drug rehab placement PT/OT recommends acute rehab (3) Alcohol abuse: Plan: Drinks 5-6 beers daily Continue Alcohol withdrawal protocol with gabapentin, Ativan Continue thiamine, folic acid Counseled to quit alcohol use (4) Hypomagnesemia: Plan: Hypokalemia Hypomagnesemia Replete electrolytes as needed Monitor (5) HTN (hypertension): Plan: Hypertensive urgency Likely secondary to alcohol withdrawal Continue losartan Clonidine as needed (6) Chronic anemia: Plan: H/O Chronic macrocytic anemia, folic acid deficiency, MGUS Follows with [facility] hematology Hemoglobin at baseline Monitor (7) Chronic hyponatremia: Plan: Baseline~130 Secondary to alcohol use Sodium 136 today Monitor (8) Depression: Plan: Continue duloxetine Discontinue bupropion as recommended by psychiatry (9) Fibromyalgia: Plan: Hold pregabalin while on gabapentin for alcohol withdrawal protocol Continue meloxicam PRN (10) Tobacco use: Plan: Patient's reports smokes couple cigarettes daily Smoking cessation encouraged (11) Moderate persistent asthma: Plan: History asthma/COPD No signs exacerbation Continue home inhalers (12) GERD (gastroesophageal reflux disease): Plan: Continue PPI DVT Prophylaxis Lovenox SQ Code Status Full Code Admission and Anticipated Discharge Date Admission Date: March 08, 2023 Subjective Patient is seen and examined at bedside Feels a lot better today Reports chronic lower back pain Still has some balance issues Denies chest pain, dyspnea, nausea, vomiting, abd pain Review of Systems Review of Systems: All systems reviewed & are unremarkable except as noted in Subjective Physical Exam Physical Exam: Physical Exam: Vitals signs as noted above General Appearance:Moderately built and nourished, Chronic ill appearing, no apparent distress Head: normocephalic, Atraumatic Eyes: normal inspection, EOMI Neck: supple, Trachea midline Respiratory/Chest: Decreased, CTA, No accessory muscle use Cardiovascular: S1, S2, No murmur Abdomen/GI:Soft, Non tender, Bowel sounds present Extremities/Musculoskeletal:normal inspection, no edema Neurologic/Psych:AAOX3, grossly no focal neurological deficits, +Tremor Skin: normal color, warm Results & Data Results & Data Vital Signs (Past 12 Hours) Vital Signs Temp Pulse Resp BP Pulse Ox O2 Del Method 03/10/23 10:58 36.5 C 84 18 179/109 H 94 Room Air 03/10/23 08:00 Room Air 03/10/23 07:56 36.9 C 84 18 166/92 H 95 Room Air 03/10/23 04:38 36.6 C 83 14 166/85 H 95 Room Air Laboratory Results Short CBC 03/10/23 Range/Units 05:58 WBC 5.89 (4.8-10.8) K/ul Hgb 9.3 L (12.0-16.0) g/dl Hct 26.1 L (37.0-47.0) % Plt Count 215 (130-400) K/uL BMP 03/10/23 05:58 Sodium 136 Potassium 3.4 L Chloride 104 Carbon Dioxide 25 BUN 10 Creatinine 1.04 Glucose 170 H Calcium 9.2
[2023-03-10] MEDS: FLUTICASONE/VILANTEROL 200/25MCG 14 PUFFS/INHALER INH SCH (20:12)
[2023-03-10] MEDS: traZODone HCL 50 MG TAB PO SCH (20:13)
[2023-03-10] MEDS: ENOXAPARIN INJ 40 MG/0.4 ML SYR SQ SCH (20:13)
[2023-03-11] MEDS: GABAPENTIN 600 MG TAB PO SCH ×2 (00:17→13:10)
[2023-03-11 06:46] LABS: BUN Creatinine Ratio 9.7 (10-20); Calcium 9.5 mg/dl (8.6-10.3); Creatinine Clr Calc Pharmacy 60.4 ml/min; Est GFR (African American) 81.3 ml/min; Est GFR (Non-African American) 70.2 ml/min; Magnesium 1.7 mg/dl (1.7-2.4); Potassium 4.2 mmol/L (3.5-5.1)
[2023-03-11] MEDS: LIDOCAINE 5% 1 PATCH TD SCH (08:27)
[2023-03-11] MEDS: NICOTINE 7 MG/24 HR TDSY TD SCH (08:28)
[2023-03-11] MEDS: LORATADINE 10 MG TAB PO SCH (08:31)
[2023-03-11] MEDS: MAGNESIUM OXIDE 400 MG TAB PO SCH (08:31)
[2023-03-11] MEDS: MELOXICAM 7.5 MG TAB PO SCH (08:31)
[2023-03-11] MEDS: MULTIVITAMIN TAB PO SCH (08:31)
[2023-03-11] MEDS: PANTOprazole 40 MG TAB PO SCH (08:31)
[2023-03-11] MEDS: DULoxetine HCL 60 MG CAP PO SCH (08:32)
[2023-03-11] MEDS: LOSARTAN POTASSIUM 50 MG TAB PO SCH (08:32)
[2023-03-11] MEDS: FOLIC ACID 1 MG TAB PO SCH (08:32)
[2023-03-11] MEDS ORDERED: LORazepam 0.5 MG TAB PO STA (09:46)
[2023-03-11] MEDS ORDERED: POLYETHYLENE (MIRALAX) 17 GM PACK PO ONE (11:45)
[2023-03-11] MEDS ORDERED: DOCUSATE SODIUM 100 MG CAP PO SCH (11:45)
[2023-03-11] MEDS ORDERED: amLODIPine BESYLATE 5 MG TAB PO SCH (15:00)
--- NOTE | 2023-03-11 15:04 | Hospitalist Progress Note ---
Date of Service March 11, 2023 Assessment & Plan (1) Ataxia: (2) Visual disturbance: Plan: Patient is a 52 yr female with PMH HTN, moderate persistent asthma, COPD, depression, fibromyalgia, GERD, alcohol use, tobacco use, chronic mild macrocytic anemia, folic acid deficiency, MGUS presented to ER with ongoing and progressive ataxia, visual disturbance, paresthesias, weakness, hallucinations Strokelike symptoms Alcoholic withdrawal encephalopathy Alcoholic cerebellar degeneration Presents with ataxia, myoclonus, nystagmus Visual disturbance --MRI Brain:No evidence of acute infarct --Head CT:There is no hemorrhage, mass effect, or evidence of acute territorial ischemia by CT criteria. Unremarkable CT angiogram of the brain. No change from 12/08/2022. Unremarkable CT angiogram of the neck. No change from 12/08/2022. Continue thiamine Appreciate neurology input PT OT, fall precautions May benefit from ophthalmology evaluation as outpatient Appreciate psychiatry input Discontinue Wellbutrin Continue duloxetine, trazodone Zyprexa as needed for agitation Counseled to quit alcohol use Patient not interested in drug rehab placement PT recommends acute rehab: Patient refused inpatient rehab placement, prefers outpatient therapy. Understands the risks and complications. Case management was involved to help with discharge planning Plan to discharge home today (3) Alcohol abuse: Plan: Drinks 5-6 beers daily Continue Alcohol withdrawal protocol with gabapentin, Ativan Continue thiamine, folic acid Counseled to quit alcohol use (4) Hypomagnesemia: Plan: Hypokalemia Hypomagnesemia Replete electrolytes as needed Monitor (5) HTN (hypertension): Plan: Hypertensive urgency Likely secondary to alcohol withdrawal Continue losartan, Add amlodipine Clonidine as needed (6) Chronic anemia: Plan: H/O Chronic macrocytic anemia, folic acid deficiency, MGUS Follows with [facility] [place] hematology Hemoglobin at baseline Monitor (7) Chronic hyponatremia: Plan: Baseline~130 Secondary to alcohol use Sodium 137 today Monitor (8) Depression: Plan: Continue duloxetine Discontinue bupropion as recommended by psychiatry (9) Fibromyalgia: Plan: Hold pregabalin while on gabapentin for alcohol withdrawal protocol Continue meloxicam PRN (10) Tobacco use: Plan: Patient's reports smokes couple cigarettes daily Smoking cessation encouraged (11) Moderate persistent asthma: Plan: History asthma/COPD No signs exacerbation Continue home inhalers (12) GERD (gastroesophageal reflux disease): Plan: Continue PPI DVT Prophylaxis Lovenox SQ Code Status Full Code Disposition Home Patient refused inpatient rehab placement Admission and Anticipated Discharge Date Admission Date: March 08, 2023 Subjective Patient is seen and examined at bedside Reports constipation but denies any nausea, vomiting, abd pain No other complaints Not interested in inpatient rehab placement Subjectively feels more stable with ambulation Denies chest pain, dyspnea, dizziness Family at bedside Review of Systems Review of Systems: All systems reviewed & are unremarkable except as noted in Subjective Physical Exam Physical Exam: Physical Exam: Vitals signs as noted above General Appearance:Moderately built and nourished, Chronic ill appearing, no apparent distress Head: normocephalic, Atraumatic Eyes: normal inspection, EOMI Neck: supple, Trachea midline Respiratory/Chest: Decreased, CTA, No accessory muscle use Cardiovascular: S1, S2, No murmur Abdomen/GI:Soft, Non tender, Bowel sounds present Extremities/Musculoskeletal:normal inspection, no edema Neurologic/Psych:AAOX3, grossly no focal neurological deficits, +Tremor improved Skin: normal color, warm Results & Data Results & Data Vital Signs (Past 12 Hours) Vital Signs Temp Pulse Resp BP Pulse Ox O2 Del Method 03/11/23 12:03 36.8 C 77 18 153/107 H 97 Room Air 03/11/23 08:35 36.7 C 88 18 139/87 96 Room Air 03/11/23 08:00 Room Air Laboratory Results [facility] 03/11/23 05:41 Sodium 137 Potassium 4.2 D Chloride 106 Carbon Dioxide 25 BUN 9 Creatinine 0.93 Glucose 92 Calcium 9.5
--- NOTE | 2023-03-11 15:19 | Discharge Summary ---
Date of Service March 11, 2023 Admission HPI Per Admitting Provider Patient is 52-year-old female with PMH HTN, moderate persistent asthma, COPD, depression, fibromyalgia, GERD, alcohol use, tobacco use, chronic mild macrocytic anemia, folic acid deficiency, MGUS presented to ER with multiple complaints. Patient reports for the last several months has had ongoing neurological symptoms. Reports 3 months ago had left-sided facial numbness. She has been noting difficulty with ambulation, stumbling for over 3 months. Reports legs feel weak with walking. Also with noted left arm weakness for over 3 months. She reports recently feels like right arm is becoming weak as well. She is left-hand dominant. Reports last couple days has been painting pictures with left hand without difficulty however states is not able to raise bilateral arms above 90 degrees secondary to arms feeling weak. Sometimes has paresthesias left arm. She has not noted any paresthesias to right upper extremity or bilateral lower extremities. Reports intermittent falls. Last reported several weeks ago. reports lost 25 pounds over past couple of months. Patient also reports has had intermittent stuttering. She states has had intermittent double vision. Has been having trouble remembering things. Has had visual hallucinations described as outline of a person. Patient also reports intermittent auditory hallucinations described as hearing person talking or music playing. She reports these hallucinations have been ongoing for weeks if not longer. Drinks 5-6 beers daily. Reports last drink was 5 PM yesterday. States in past when she has not had a drink she has tremors and sweats. Denies history seizure. Per chart review history of left facial numbness, ataxia dating back to November 2022 and was seen in ER on 12/08/2022 for symptoms and had CT head and neck that were negative for stroke and was discharged home. Had follow-up with PCP and was referred to neurology however has not been seen yet. She was ordered brain MRI, EMG however has not had completed. Denies fever/chills, diaphoresis, N/V/D/C, WOLF, syncope, vision loss, slurred speech, neck pain, CP, SOB, orthopnea, palpitations, cough, sore throat, choking, rhinorrhea, abdominal pain, extremity edema, rashes, dysuria, hematuria. Admission Exam Per Admitting Provider Physical Exam Physical Exam: General: +anxious, tearful, WDWN, appears older than stated age Head: normocephalic, atraumatic Eyes: PERRL, EOM's intact, conjunctiva non-injected, anicteric ENT: normal inspection external ears, nose, mucous membranes moist Neck: supple, trachea midline Lungs: clear, no respiratory distress, no wheezing/rhonchi/rales CV: RRR, no murmur, no pretibial edema Abd: normal BS, soft, non-tender Ext: no cyanosis, no calf tenderness Neuro: A&O x 3, +tearful, anxious. +horizontal nystagmus, facial sensation is intact and symmetric, face is strong and symmetric, hearing grossly intact, soft palate elevates symmetrically, +intermittent stuttering speech, shoulder shrug intact, tongue is midline, +slow movement side to side, no fasciculations noted, Shoulder extension bilateral forward arm raise to 90 degrees, arm flexion and extension at elbows 5/5 bilaterally, strong and equal pulmonary specialist strength bilaterally, BLE: passive ROM intact, BLE limited active ROM to straight leg raise to approx 30 degrees, able to actively flex and extend at knees and hips bilaterally, full resistance to plantar flexion and extension unable to do finger to nose or rapid alternating movements. unable to stand and ambulate for exam Skin: warm, dry Principal Diagnosis Alcoholic withdrawal encephalopathy Alcoholic cerebellar degeneration Alcohol abuse Hypokalemia Hypomagnesemia Hypertensive urgency Chronic hyponatremia Discharge Data Allergies Allergy/AdvReac Type Severity Reaction Status Date / Time latex AdvReac Unknown ITCHY Unverified 03/08/23 15:06 amoxicillin AdvReac thrush Verified 03/08/23 15:09 nickel AdvReac Rash Verified 03/08/23 15:09 Consultations 03/08/23 16:41 ED Decision to Admit Stat 03/09/23 07:00 Consult Neurology Routine 03/09/23 10:47 Consult Psychiatry Routine Procedures Performed Laboratory Results WBC 5.89 K/ul (4.8-10.8) 03/10/23 05:58 RBC 2.71 M/uL (4.20-5.40) L 03/10/23 05:58 Hgb 9.3 g/dl (12.0-16.0) L 03/10/23 05:58 POC Hgb 10.2 g/dl (12.0-16.0) L 03/08/23 14:15 Hct 26.1 % (37.0-47.0) L 03/10/23 05:58 POC Hct 30 % (37-47) L 03/08/23 14:15 MCV 96.3 fL (80.0-100.0) 03/10/23 05:58 MCH 34.3 pg (25.0-34.0) H 03/10/23 05:58 MCHC 35.6 g/dL (32.0-36.0) 03/10/23 05:58 RDW Std Deviation 44.9 fL (36.4-46.3) 03/10/23 05:58 RDW Coeff of Amos 13.0 % (11.5-14.5) 03/10/23 05:58 Plt Count 215 K/uL (130-400) 03/10/23 05:58 MPV 10.1 fL (9.4-12.4) 03/10/23 05:58 Immature Gran % (Auto) 0.3 % 03/09/23 05:32 Neut % (Auto) 55.2 % 03/09/23 05:32 Lymph % (Auto) 33.8 % 03/09/23 05:32 [place] % (Auto) 9.3 % 03/09/23 05:32 Eos % (Auto) 0.8 % 03/09/23 05:32 Baso % (Auto) 0.6 % 03/09/23 05:32 Neut # (Auto) 3.45 K/uL (1.40-6.50) 03/09/23 05:32 Lymph # (Auto) 2.11 K/uL (1.2-3.4) 03/09/23 05:32 [place] # (Auto) 0.58 K/uL (0.11-0.59) 03/09/23 05:32 Eos # (Auto) 0.05 K/uL (0-0.50) 03/09/23 05:32 Baso # (Auto) 0.04 K/uL (0-0.2) 03/09/23 05:32 Immature Gran # (Auto) 0.02 K/uL (0.01-0.20) 03/09/23 05:32 PT 10.9 Seconds (9.0-12.0) 03/08/23 14:11 INR 1.0 (0.9-1.1) 03/08/23 14:11 APTT 26.1 Seconds (21.0-31.0) 03/08/23 14:11 PTT Ratio 0.9 03/08/23 14:11 POC Sodium 134 mmol/L (135-144) L 03/08/23 14:15 Sodium 137 mmol/L (136-145) 03/11/23 05:41 POC Potassium 3.6 mmol/L (3.3-5.0) 03/08/23 14:15 Potassium 4.2 mmol/L (3.5-5.1) D 03/11/23 05:41 POC Chloride 98 mmol/L (101-112) L 03/08/23 14:15 Chloride 106 mmol/L (98-107) 03/11/23 05:41 Carbon Dioxide 25 mmol/L (21-32) 03/11/23 05:41 POC Total CO2 23 mmol/L (24-31) L 03/08/23 14:15 Anion Gap 6 (3-11) 03/11/23 05:41 POC Anion Gap 18.0 mmol/L (16-25) 03/08/23 14:15 POC BUN 11 mg/dl (7-18) 03/08/23 14:15 BUN 9 mg/dl (6-23) 03/11/23 05:41 Creatinine 0.93 mg/dl (0.6-1.2) 03/11/23 05:41 POC Creatinine 1.0 mg/dl (0.6-1.3) 03/08/23 14:15 Est Cr Clr Drug Dosing 60.4 ml/min 03/11/23 05:41 Est GFR ( Amer) 81.3 ml/min 03/11/23 05:41 Est GFR (Non-Af Amer) 70.2 ml/min 03/11/23 05:41 BUN/Creatinine Ratio 9.7 (10-20) L 03/11/23 05:41 Glucose 92 mg/dl (70-99(Fasting)) 03/11/23 05:41 POC Glucose (other) 86 mg/dl (70-99) 03/08/23 14:15 Estimat Average Glucose 71 mg/dl 03/09/23 05:32 Hemoglobin A1c 4.1 % (4.5-5.6) L 03/09/23 05:32 Calcium 9.5 mg/dl (8.6-10.3) 03/11/23 05:41 POC Ioniz Calcium Danielle 1.16 mmol/l (1.12-1.32) 03/08/23 14:15 Magnesium 1.7 mg/dl (1.7-2.4) 03/11/23 05:41 Total Bilirubin 0.5 mg/dl (0.2-1.0) 03/08/23 14:11 AST 21 U/L (13-39) 03/08/23 14:11 ALT 13 U/L (7-52) 03/08/23 14:11 Alkaline Phosphatase 48 U/L (34-104) 03/08/23 14:11 Total Protein 7.2 gm/dl (6.0-8.3) 03/08/23 14:11 Albumin 4.4 gm/dl (3.4-5.0) 03/08/23 14:11 Globulin 2.8 gm/dl (2.5-4.0) 03/08/23 14:11 Albumin/Globulin Ratio 1.6 (0.9-2) 03/08/23 14:11 Triglycerides 70 mg/dl (0-150) 03/09/23 05:32 Cholesterol 216 mg/dl (0-200) H 03/09/23 05:32 LDL Cholesterol, Calc 69 mg/dl 03/09/23 05:32 VLDL Cholesterol, Calc 14 mg/dl (0-30) 03/09/23 05:32 HDL Cholesterol 133 mg/dl 03/09/23 05:32 Cholesterol/HDL Ratio 1.6 (0-5) 03/09/23 05:32 Vitamin B12 227 pg/ml (180-914) 03/08/23 14:11 Folate > 22.30 ng/ml (>5.38) 03/08/23 14:11 TSH 0.834 uIu/ml (0.300-4.500) 03/08/23 14:11 Urine Opiates Screen Neg (Neg) 03/09/23 03:05 Ur Methadone, Qual Neg (Neg) 03/09/23 03:05 Urine Barbiturates Neg (Neg) 03/09/23 03:05 Ur Phencyclidine (PCP) Neg (Neg) 03/09/23 03:05 U Amphetamin/Meth Scrn Neg (Neg) 03/09/23 03:05 MDMA (Ecstasy) Screen Pos (Neg) H 03/09/23 03:05 U Benzodiazepines Scrn Neg (Neg) 03/09/23 03:05 Ur Cocaine Metabolite Neg (Neg) 03/09/23 03:05 U Marijuana (THC) Screen Pos (Neg) H 03/09/23 03:05 Ethyl Alcohol mg/dL < 10.0 mg/dl (<10.0) 03/08/23 15:05 SARS-CoV-2, RNA, NAAT NEGATIVE (NEGATIVE) 03/08/23 16:46 Impressions Chest X-Ray 03/08/23 13:40 XR chest 1V portable CLINICAL HISTORY: stroke alert COMPARISON STUDY: Chest CT September 25, 2019. Chest radiograph December 08, 2022. FINDINGS: Lung volumes are normal. There is no consolidation to suggest pneumonia. Linear left perihilar density favors atelectasis. There is no pneumothorax or pleural effusion. Cardiac size is normal. Mediastinal contours are normal. There is no evidence for pulmonary edema. IMPRESSION: No acute cardiopulmonary findings. ACT 112: Negative or not required by law. Electronically signed by: Len Chappell M.D. 03/08/2023 2:[address] 03/08/23 13:[address] OF THE BRAIN; CT ANGIOGRAM OF THE BRAIN; CT ANGIOGRAM OF THE NECK CLINICAL HISTORY: Neurological deficit. Stroke like symptoms. COMPARISON STUDY: CT angiogram of the head and neck dated 12/08/2022. TECHNIQUE: Unenhanced axial CT scan of the brain is performed. Subsequently, following the IV administration of 120 of Optiray 320, CT angiogram of the head and neck was performed from the aortic arch to the vertex. Images are reviewed in the axial, sagittal, and coronal planes. 3-D MIPS images are created and assessed. IV contrast was administered without complication. All measurements were calculated based on NASCET criteria. A dose lowering technique was utilized adhering to the principles of ALARA. CT DOSE: 953.71 mGy.cm FINDINGS: Brain parenchyma: The brain parenchyma is normal in appearance. There is no hemorrhage, mass effect, or evidence of acute territorial ischemia by CT criteria. There is no evidence of enhancing mass lesion on the angiogram phase images. The ventricles, sulci, and cisterns are normal in configuration. Butler- white matter differentiation is preserved. No extra-axial fluid collection is seen. Thoracic aorta: Visualized portions of the thoracic aorta are normal in caliber. The aortic arch demonstrates standard 3-vessel anatomy. Right carotid arterial system: The right common carotid artery is widely patent, as are the right internal and external carotid arteries. Left carotid arterial system: The left common carotid artery is widely patent, as are the left internal and external carotid arteries. Vertebral arteries: Widely patent bilaterally nothing left-sided dominance. Subclavian arteries: Widely patent bilaterally. Intracranial vasculature: The internal carotid arteries are patent at the skull base, as are the anterior and middle cerebral arteries bilaterally. The vertebrobasilar system and posterior cerebral arteries are widely patent. The left vertebral artery is dominant. There is no aneurysm, high-grade stenosis, or focal vessel cut off seen throughout the intracranial circulation. Jugular veins: Patent bilaterally. Dural sinuses: Patent. Lung apices: Partially visualized upper lobe lung parenchyma appears clear. Soft tissues: The visualized pharyngeal soft tissues are normal in appearance noting angiographic phase technique. The oropharyngeal airway appears widely patent. The salivary and thyroid glands are normal in appearance. No cervical lymphadenopathy is seen. Skeletal structures: The skeletal structures are osteopenic. The calvarium appears intact. The cervical spine is maintained noting advanced multilevel spondylosis. No lytic or blastic lesion is seen. Orbits: The bony orbits are intact. Orbital contents are normal as visualized. Sinuses and mastoids: The paranasal sinuses are clear. The mastoid air cells are well pneumatized. IMPRESSION: 1. There is no hemorrhage, mass effect, or evidence of acute territorial ischemia by CT criteria. 2. Unremarkable CT angiogram of the brain. No change from 12/08/2022. 3. Unremarkable CT angiogram of the neck. No change from 12/08/2022. ACT 112: Negative or not required by law. Electronically signed by: Miquel Méndez M.D. 03/08/2023 4:25 PM Head CTA 03/08/23 14:[address] OF THE BRAIN; CT ANGIOGRAM OF THE BRAIN; CT ANGIOGRAM OF THE NECK CLINICAL HISTORY: Neurological deficit. Stroke like symptoms. COMPARISON STUDY: CT angiogram of the head and neck dated 12/08/2022. TECHNIQUE: Unenhanced axial CT scan of the brain is performed. Subsequently, following the IV administration of 120 of Optiray 320, CT angiogram of the head and neck was performed from the aortic arch to the vertex. Images are reviewed in the axial, sagittal, and coronal planes. 3-D MIPS images are created and assessed. IV contrast was administered without complication. All measurements were calculated based on NASCET criteria. A dose lowering technique was utilized adhering to the principles of ALARA. CT DOSE: 953.71 mGy.cm FINDINGS: Brain parenchyma: The brain parenchyma is normal in appearance. There is no hemorrhage, mass effect, or evidence of acute territorial ischemia by CT criteria. There is no evidence of enhancing mass lesion on the angiogram phase images. The ventricles, sulci, and cisterns are normal in configuration. Butler- white matter differentiation is preserved. No extra-axial fluid collection is seen. Thoracic aorta: Visualized portions of the thoracic aorta are normal in caliber. The aortic arch demonstrates standard 3-vessel anatomy. Right carotid arterial system: The right common carotid artery is widely patent, as are the right internal and external carotid arteries. Left carotid arterial system: The left common carotid artery is widely patent, as are the left internal and external carotid arteries. Vertebral arteries: Widely patent bilaterally nothing left-sided dominance. Subclavian arteries: Widely patent bilaterally. Intracranial vasculature: The internal carotid arteries are patent at the skull base, as are the anterior and middle cerebral arteries bilaterally. The vertebrobasilar system and posterior cerebral arteries are widely patent. The left vertebral artery is dominant. There is no aneurysm, high-grade stenosis, or focal vessel cut off seen throughout the intracranial circulation. Jugular veins: Patent bilaterally. Dural sinuses: Patent. Lung apices: Partially visualized upper lobe lung parenchyma appears clear. Soft tissues: The visualized pharyngeal soft tissues are normal in appearance noting angiographic phase technique. The oropharyngeal airway appears widely patent. The salivary and thyroid glands are normal in appearance. No cervical lymphadenopathy is seen. Skeletal structures: The skeletal structures are osteopenic. The calvarium appears intact. The cervical spine is maintained noting advanced multilevel spondylosis. No lytic or blastic lesion is seen. Orbits: The bony orbits are intact. Orbital contents are normal as visualized. Sinuses and mastoids: The paranasal sinuses are clear. The mastoid air cells are well pneumatized. IMPRESSION: 1. There is no hemorrhage, mass effect, or evidence of acute territorial ischemia by CT criteria. 2. Unremarkable CT angiogram of the brain. No change from 12/08/2022. 3. Unremarkable CT angiogram of the neck. No change from 12/08/2022. ACT 112: Negative or not required by law. Electronically signed by: Miquel Méndez M.D. 03/08/2023 4:25 PM Neck CTA 03/08/23 14:[address] OF THE BRAIN; CT ANGIOGRAM OF THE BRAIN; CT ANGIOGRAM OF THE NECK CLINICAL HISTORY: Neurological deficit. Stroke like symptoms. COMPARISON STUDY: CT angiogram of the head and neck dated 12/08/2022. TECHNIQUE: Unenhanced axial CT scan of the brain is performed. Subsequently, following the IV administration of 120 of Optiray 320, CT angiogram of the head and neck was performed from the aortic arch to the vertex. Images are reviewed in the axial, sagittal, and coronal planes. 3-D MIPS images are created and assessed. IV contrast was administered without complication. All measurements were calculated based on NASCET criteria. A dose lowering technique was uti lized adhering to the principles of ALARA. CT DOSE: 953.71 mGy.cm FINDINGS: Brain parenchyma: The brain parenchyma is normal in appearance. There is no hemorrhage, mass effect, or evidence of acute territorial ischemia by CT criteria. There is no evidence of enhancing mass lesion on the angiogram phase images. The ventricles, sulci, and cisterns are normal in configuration. Butler- white matter differentiation is preserved. No extra-axial fluid collection is seen. Thoracic aorta: Visualized portions of the thoracic aorta are normal in caliber. The aortic arch demonstrates standard 3-vessel anatomy. Right carotid arterial system: The right common carotid artery is widely patent, as are the right internal and external carotid arteries. Left carotid arterial system: The left common carotid artery is widely patent, as are the left internal and external carotid arteries. Vertebral arteries: Widely patent bilaterally nothing left-sided dominance. Subclavian arteries: Widely patent bilaterally. Intracranial vasculature: The internal carotid arteries are patent at the skull base, as are the anterior and middle cerebral arteries bilaterally. The vertebrobasilar system and posterior cerebral arteries are widely patent. The left vertebral artery is dominant. There is no aneurysm, high-grade stenosis, or focal vessel cut off seen throughout the intracranial circulation. Jugular veins: Patent bilaterally. Dural sinuses: Patent. Lung apices: Partially visualized upper lobe lung parenchyma appears clear. Soft tissues: The visualized pharyngeal soft tissues are normal in appearance noting angiographic phase technique. The oropharyngeal airway appears widely patent. The salivary and thyroid glands are normal in appearance. No cervical lymphadenopathy is seen. Skeletal structures: The skeletal structures are osteopenic. The calvarium appears intact. The cervical spine is maintained noting advanced multilevel spondylosis. No lytic or blastic lesion is seen. Orbits: The bony orbits are intact. Orbital contents are normal as visualized. Sinuses and mastoids: The paranasal sinuses are clear. The mastoid air cells are well pneumatized. IMPRESSION: 1. There is no hemorrhage, mass effect, or evidence of acute territorial ischemia by CT criteria. 2. Unremarkable CT angiogram of the brain. No change from 12/08/2022. 3. Unremarkable CT angiogram of the neck. No change from 12/08/2022. ACT 112: Negative or not required by law. Electronically signed by: Miquel Méndez M.D. 03/08/2023 4:25 PM Brain MRI 03/08/23 20:19 Exam(s): MRI HEAD Without Contrast EXAM: MR Head Without Intravenous Contrast CLINICAL HISTORY: Reason for exam: ataxia, paresthesias. TECHNIQUE: Magnetic resonance images of the head/brain without intravenous contrast in multiple planes. COMPARISON: No relevant prior studies available. FINDINGS: Brain: Mild cerebral atrophy. Mild chronic periventricular ischemic demyelination changes seen due to small vessel disease. No hemorrhage. Ventricles: Unremarkable. No ventriculomegaly. Bones/joints: Unremarkable. Sinuses: Unremarkable as visualized. No acute sinusitis. Mastoid air cells: Unremarkable as visualized. No mastoid effusion. Orbits: Unremarkable as visualized. IMPRESSION: No evidence of acute infarct Electronically signed by: Cole Spicer MD 03/08/23 22:49 PM Ordered Studies 03/08/23 13:40 CT head/brain wo con Stat 03/08/23 14:20 CT angio head w con Stat CT angio neck with con Stat 03/08/23 20:19 MR brain wo con Routine Hospital Course (1) Ataxia: (2) Visual disturbance: Patient is a 52 yr female with PMH HTN, moderate persistent asthma, COPD, depression, fibromyalgia, GERD, alcohol use, tobacco use, chronic mild macrocytic anemia, folic acid deficiency, MGUS presented to ER with ongoing and progressive ataxia, visual disturbance, paresthesias, weakness, hallucinations Strokelike symptoms Alcoholic withdrawal encephalopathy Alcoholic cerebellar degeneration Presents with ataxia, myoclonus, nystagmus Visual disturbance --MRI Brain:No evidence of acute infarct --Head CT:There is no hemorrhage, mass effect, or evidence of acute territorial ischemia by CT criteria. Unremarkable CT angiogram of the brain. No change from 12/08/2022. Unremarkable CT angiogram of the neck. No change from 12/08/2022. Continue thiamine Appreciate neurology input PT OT, fall precautions May benefit from ophthalmology evaluation as outpatient Appreciate psychiatry input Discontinue Wellbutrin Continue duloxetine, trazodone Zyprexa as needed for agitation Counseled to quit alcohol use Patient not interested in drug rehab placement PT recommends acute rehab: Patient refused inpatient rehab placement, prefers outpatient therapy. Understands the risks and complications. Case management was involved to help with discharge planning Plan to discharge home today (3) Alcohol abuse: Drinks 5-6 beers daily Continue Alcohol withdrawal protocol with gabapentin, Ativan Continue thiamine, folic acid Counseled to quit alcohol use (4) Hypomagnesemia: Hypokalemia Hypomagnesemia Replete electrolytes as needed Monitor (5) HTN (hypertension): Hypertensive urgency Likely secondary to alcohol withdrawal Continue losartan, Add amlodipine Clonidine as needed (6) Chronic anemia: H/O Chronic macrocytic anemia, folic acid deficiency, MGUS Follows with [facility] hematology Hemoglobin at baseline Monitor (7) Chronic hyponatremia: Baseline~130 Secondary to alcohol use Sodium 137 today Monitor (8) Depression: Continue duloxetine Discontinue bupropion as recommended by psychiatry (9) Fibromyalgia: Hold pregabalin while on gabapentin for alcohol withdrawal protocol Continue meloxicam PRN (10) Tobacco use: Patient's reports smokes couple cigarettes daily Smoking cessation encouraged (11) Moderate persistent asthma: History asthma/COPD No signs exacerbation Continue home inhalers (12) GERD (gastroesophageal reflux disease): Continue PPI DVT Prophylaxis Lovenox SQ Code Status Full Code Disposition Home Patient refused inpatient rehab placement Total Time Total Time Spent Total Time Spent (In Minutes): 56 minutes Discharge Plan Discharge Items Patient Disposition: Home - Self-Care Reason For Visit: STROKE LIKE SYMPTOMS Discharge Diagnosis: Alcoholic withdrawal encephalopathy Alcoholic cerebellar degeneration Alcohol abuse Hypokalemia Hypomagnesemia Hypertensive urgency Chronic hyponatremia Activity: Per Instructions section Exercise/Sports: Wait until after follow-up appointment Non-emergency contact: Primary Care Provider, Wet Pan Operator and Psychiatrist Call non-emergency contact if: you have any medication questions, your symptoms worsen and your pain is concerning for you Follow-up/Referrals: [facility] [Outside] (Referral faxed; Staff will call patient directly ) Myesha Cavanaugh MD [Primary Care Provider] - Diet: Regular Addtl Attending Provider Instructions: Follow-up with your primary care physician Dr. Cavanaugh in 1 week Follow-up with your psychiatrist as advised Follow-up with your eeg technician in 1 to 2 weeks as recommended. --- No driving until cleared by your eeg technician/primary care physician for --Quit drinking alcohol as advised. -- Smoking tobacco as advised --Stop taking Wellbutrin(bupropion) as recommended by your psychiatrist. Seek immediate medical attention if your symptoms reoccur or worsen Please take all medications as instructed on discharge list below. Please call if you have any questions or problems. You can reach a [facility] hospitalist on duty at [facility] 24 hours a day by calling [phone] Pending Studies at Discharge: Yes Studies:: Vitamin B1, B6 levels Stand-Alone Forms: My [facility] [employer], Smoking Cessation Medications and DC Order Prescriptions: New polyethylene glycol 3350 [Miralax] 17 gram Powder In Packet 17 g PO DAILY PRN (Reason: constipation) Qty: 30 0RF amlodipine [Norvasc] 5 mg Tablet 2.5 mg PO QAM Qty: 30 0RF docusate sodium 100 mg Capsule 100 mg PO BID PRN (Reason: Constipation) Qty: 60 0RF thiamine HCl (vitamin B1) 100 mg tablet 100 mg PO DAILY Qty: 30 0RF Continued trazodone 50 mg tablet 50 mg PO HS loratadine 10 mg tablet 10 mg PO DAILY lorazepam 0.5 mg tablet 0.5 mg PO BID PRN (Reason: Anxiety) albuterol sulfate 90 mcg/actuation HFA aerosol inhaler 2 puff INHALATION Q4 PRN (Reason: Shortness Of Breath Or Wheezing) Combivent Respimat 20-100 mcg/actuation mist 1 puff INHALATION UD pregabalin 150 mg capsule 150 mg PO AMHS magnesium oxide 400 mg magnesium tablet 400 mg PO DAILY Dulera 200-5 mcg/actuation HFA aerosol inhaler 2 puff INHALATION BID meloxicam 7.5 mg tablet 7.5 mg PO DAILY Rx Instructions: Patient usually takes 1 tab every am. omeprazole 20 mg capsule,delayed release(DR/EC) 20 mg PO DAILY duloxetine 60 mg capsule,delayed release(DR/EC) 60 mg PO QAM losartan 50 mg tablet 50 mg PO DAILY Qty: 30 1RF folic acid 1 mg tablet 2 mg PO DAILY Qty: 60 0RF Discontinued bupropion HCl 300 mg tablet extended release 24 hr 300 mg PO DAILY Discharge Orders: Discharge Order (Routine); Ordered 03/11/23 Ordered By: Marty Sprague Admission Data Admit Date/Time: 03/08/23 18:14 Attending Provider: Marty Sprague Admit Provider: Bill Mccollum Primary Care Provider: Myesha Cavanaugh Other Providers: Bill Mccollum ; Antony Cuba ; Brittni Jimenez ; Mihaela Cruz ; Jason Shankar
[2023-03-12] MEDS ORDERED: GABAPENTIN 600 MG TAB PO SCH (12:00)
[2023-03-14 13:07] LABS: MDA negative; MDEA negative; MDMA (Ecstasy) Urine, Confirm negative; Marijuana Quant, GCMS Urine 59 ng/mL (<5)
== END 2023-03-11 18:43 | disposition home or self-care (01) | DRG 57 ==
LOC: ED 13:24 → 4W 20:00 → SUATTDRO 20:00 → 4W 22:00

== ENCOUNTER 2024-04-16 18:04 | Inpatient (IN) ==
[2024-04-16 18:43] LABS: Basophils # (auto) 0.03 K/uL (0.00-0.20); Basophils % (auto) 0.1 %; Eosinophils # (auto) 0.02 K/uL (0.00-0.50); Eosinophils % (auto) 0.1 %; Hematocrit (blood only) 27.7 % (37.0-47.0); Hemoglobin 9.9 g/dl (12.0-16.0); Immature Granulocytes # (auto) 0.16 K/uL (0.01-0.20); Immature Granulocytes % (auto) 0.8 %; Lymphocytes # (auto) 4.61 K/uL (1.20-3.40); Lymphocytes % (auto) 22.7 %; Mean Corpuscular Hemoglobin 30.6 pg (25.0-34.0); Mean Corpuscular Hgb Conc 35.7 g/dL (32.0-36.0); Mean Corpuscular Volume 85.5 fL (80.0-100.0); Mean Platelet Volume 9.6 fL (9.4-12.4); Monocytes # (auto) 1.43 K/uL (0.11-0.59); Neutrophils # (auto) 14.05 K/uL (1.40-6.50); Neutrophils % (auto) 69.3 %; Platelet Count 511 K/uL (130-400); RDW Coefficient of Variation 15.4 % (11.5-14.5); RDW Standard Deviation 47.6 fL (36.4-46.3); Red Blood Count 3.24 M/uL (4.20-5.40)
[2024-04-16 19:01] LABS: BUN Creatinine Ratio 18.5 (10-20); Calcium 9.6 mg/dl (8.6-10.3); Creatinine Clr Calc Pharmacy 57.2 ml/min; Est GFR (African American) 81.2 ml/min; Est GFR (Non-African American) 70.1 ml/min; Potassium 3.4 mmol/L (3.5-5.1)
[2024-04-16 19:18] LABS: Albumin Globulin Ratio 1.2 (0.9-2); Albumin Level 3.7 gm/dl (3.4-5.0); Bilirubin,Total 0.4 mg/dl (0.2-1.0); Globulin 3.1 gm/dl (2.5-4.0); Total Protein 6.8 gm/dl (6.0-8.3)
--- NOTE | 2024-04-16 19:19 | Emergency Department Note ---
Impression & Plan Acute pancreatitis, Leukocytosis, Anemia, Hypokalemia ED Provider Note NAME: FEMI PAVON AGE: 54 SEX: F : 1970 ARRIVES VIA: Walk-In INFORMANT: Patient ED PROVIDER(S): Harman Gotti DO CHIEF COMPLAINT: Abdominal pain HPI: Patient is a 54-year-old female with a past medical history of alcoholic encephalopathy, alcohol abuse, tobacco abuse who presents the ER for periumbilical abdominal pain which has been present for the past week. She notes that she started having black stools yesterday and they have been persistent. She denies any dizziness or lightheadedness. She notes she has taken steroids for bronchitis and is taking 2 tabs of prednisone a day. Last day was today. She denies any headache or change in vision. No chest pain or shortness of breath. No dysuria urgency or frequency. No other exacerbating or remitting factors. She denies any iron. She does admit to previous back surgery recently and notes that her back feels better in the incision is will healed. ADDITIONAL HISTORY OBTAINED: Per HPI Chronic Medical/Social Conditions Affecting Care: Per HPI PAST MEDICAL HISTORY:See Below PAST SURGICAL HISTORY:See Below FAMILY HISTORY:See Below SOCIAL HISTORY:See Below HOME MEDICATIONS:See Below ALLERGIES:See Below VITALS:See Below PHYSICAL EXAMINATION: GENERAL: Sitting up in bed, alert, well appearing, well nourished, no distress, non-toxic EYE EXAM: normal conjunctiv. PERRL and EOM's grossly intact. OROPHARYNX: no exudate, no erythema, lips, buccal mucosa, and tongue normal and mucous membranes are moist NECK: supple, no nuchal rigidity, no adenopathy, non-tender LUNGS: Clear to auscultation. Normal chest wall mechanics HEART: no murmurs, S1 normal and S2 normal ABDOMEN: abdomen soft, non-tender, normo-active bowel sounds, no masses, no rebound or guarding. BACK: Back is symmetrical on inspection and there is no deformity, no midline tenderness, no CVA tenderness. Scar in the back without surrounding erythema in the lower lumbar region. SKIN: no rashes and no bruising UPPER EXTREMITIES: upper extremities are grossly normal. LOWER EXTREMITIES: No pitting edema. NEURO EXAM: Normal sensorium, cranial nerves II-XII grossly intact, normal speech, no gross weakness of arms, no gross weakness of legs. MEDICAL DECISION MAKING: Patient is a 54-year-old female who presents the ER for abdominal pain he is an alcoholic. IV was established blood work is obtained. Labs show leukocytosis of 20,000. Mild anemia at 9.9. BMP with mild hypokalemia 3.4. LFTs was unremarkable. Lipase of nearly thousand. CT abdomen pelvis shows acute pancreatitis with a 2.5 cm cyst at the head of the pancreas with some mild ductal dilatation. Patient was given IV antibiotics to be on the safe side although I do favor the leukocytosis is likely secondary to the steroids. Patient was given morphine and fluids. Updated bedside. Did discuss the findings with gastroenterology and they do not believe that she needs an ERCP at this time and can be admitted here. Discussed with the hospitalist for further evaluation management treatment. Consults/Care Managements Discussions: Per [facility] Triage Nursing notes reviewed. Limited review of prior medical records performed Vital Signs: reviewed and remarkable for no significant abnormalities Differential diagnosis: Differential diagnoses includes but is not limited to gastritis, peptic ulcer disease, GERD, gallbladder disease, pancreatitis, small bowel obstruction, appendicitis, diverticulitis, hernia, urinary tract infection, torsion, perforation, trauma, infectious. ER treatment provided: See below Diagnostics interpreted by me include EKG and cardiac monitoring as listed below: -Cardiac Monitoring: An order was placed for continuous cardiac monitoring. The monitor shows a rate of 90 with sinus rhythm. -ECG: none -Laboratory studies:Interpreted by me as stated above in MDM and shown below. Imaging studies: Xrays: As interpreted by me:none CTs show: CT abdomen pelvis per my preliminary interpretation shows inflammation around the pancreas CT abdomen pelvis per radiologist described above Procedures:none Critical Care: None Past Med/Surg History Problem List (Updated 04/16/24 @ 21:59 by Harman Gotti DO) Hypokalemia (Acute) Leukocytosis (Acute) Acute pancreatitis (Acute) Hallucinations Alcoholic cerebellar degeneration Alcoholic encephalopathy Visual disturbance Chronic hyponatremia HTN (hypertension) Chronic anemia Alcohol abuse Tobacco use GERD (gastroesophageal reflux disease) Moderate persistent asthma Depression Stroke-like symptom (Acute) Ataxia (Acute) Anemia (Acute) Vancomycin-induced nephrotoxicity Asthma (Chronic) Fibromyalgia (Chronic) Acute asthma exacerbation (Acute) Acute asthma exacerbation (Acute) Acute bronchiolitis (Acute) PNA (pneumonia) (Acute) Right otitis media (Acute) Medical History Alcohol abuse Asthma Chronic anemia Chronic hyponatremia Depression Fibromyalgia GERD (gastroesophageal reflux disease) HTN (hypertension) Moderate persistent asthma Tobacco use Vancomycin-induced nephrotoxicity Surgical History History of spinal surgery Hx of tonsillectomy Family History Other Asthma Cancer Social History Smoking Status: Current some day smoker Tobacco Type: Cigarettes Second Hand Exposure: Yes; Do You Dip or Chew Tobacco: No; Hx Alcohol Use: Yes Alcohol type: beer Alcohol Intake Frequency Comment: 5-6 daily Hx Substance Use: No Preferred Language: Czech Communication Ability: Impaired Park Manager Required: No Beliefs That Will Affect Care: None Current Living Situation: Significant Other Feels Safe at Home: Yes Assistive Devices: Walker Allergies Allergies Allergy/AdvReac Type Severity Reaction Status Date / Time latex Allergy Intermediate ITCHY Verified 04/16/24 20:05 nickel Allergy Intermediate Rash Verified 04/16/24 20:05 amoxicillin AdvReac Intermediate thrush Verified 04/16/24 20:05 Home Meds Home Medications Medication Instructions Recorded Confirmed albuterol sulfate 90 mcg/actuation 2 puff inhalation Q4 PRN Shortness 09/25/19 04/16/24 aerosol inhaler Of Breath Or Wheezing loratadine 10 mg tablet 10 mg PO QDL 09/25/19 04/16/24 lorazepam 0.5 mg tablet 0.5 mg PO BID PRN Anxiety 09/25/19 04/16/24 trazodone 50 mg tablet 50 mg PO HS 09/25/19 04/16/24 duloxetine 60 mg capsule,delayed 60 mg PO QAM 03/08/23 04/16/24 release mometasone-formoterol HFA 200 2 puff inhalation BID 03/08/23 04/16/24 mcg-5 mcg/actuation aerosol inhaler (Dulera) omeprazole 20 mg capsule,delayed 20 mg PO DAILY 03/08/23 04/16/24 release pregabalin 150 mg capsule 150 mg PO AMHS 03/08/23 04/16/24 amlodipine 5 mg tablet (Norvasc) 5 mg PO QAM 04/16/24 04/16/24 cyclobenzaprine 5 mg tablet 5 mg PO TID PRN MUSCLE SPASMS 04/16/24 04/16/24 doxycycline hyclate 100 mg capsule 100 mg PO BID 04/16/24 04/16/24 fluoxetine 20 mg capsule 20 mg PO QAM 04/16/24 04/16/24 fluoxetine 40 mg capsule 40 mg PO QAM 04/16/24 04/16/24 hydrocodone 7.5 mg-acetaminophen 1 tab PO Q12H PRN Pain 04/16/24 04/16/24 325 mg tablet hydroxyzine HCl 50 mg tablet 50 mg PO Q6H PRN ITCHING/ANXIETY 04/16/24 04/16/24 montelukast 10 mg tablet 10 mg PO HS 04/16/24 04/16/24 oxycodone-acetaminophen 10 mg-325 1 tab PO Q6H PRN Pain 04/16/24 04/16/24 mg tablet Previous Rx's Medication Instructions Recorded folic acid 1 mg tablet 2 mg (2 x 1 mg) PO DAILY #60 tabs 03/11/23 losartan 50 mg tablet 50 mg PO DAILY #30 tabs 03/11/23 Results & Data (ED) Vital Signs Vital Signs - 24 hr 04/16/24 18:17 04/16/24 18:49 04/16/24 19:10 Temperature 36.9 C Temperature Source Temporal Artery Scan Pulse Rate 94 H 84 Pulse Rate [Apical] 84 Pulse Rhythm [Apical] Regular Respiratory Rate 18 18 Respiratory Effort / Characteristics Non-Labored Spontaneous Respiratory Depth Normal Blood Pressure 135/81 Blood Pressure [Left Arm] 145/81 H Blood Pressure Mean 99 Blood Pressure Mean [Left Arm] 102 Blood Pressure Position Sitting Pulse Oximetry 98 99 Oxygen Delivery Method Room Air Room Air Sepsis Recent Fever Within 48 Hours No Sepsis New/Unexplained Change in Mental Status N/A Sepsis Action Taken by Nursing No Action Required 04/16/24 20:34 04/16/24 21:15 Temperature Temperature Source Pulse Rate Pulse Rate [Apical] 92 H 90 Pulse Rhythm [Apical] Respiratory Rate 16 16 Respiratory Effort / Characteristics Respiratory Depth Blood Pressure Blood Pressure [Left Arm] 151/93 H 141/96 H Blood Pressure Mean Blood Pressure Mean [Left Arm] 112 111 Blood Pressure Position Pulse Oximetry 99 97 Oxygen Delivery Method Room Air Room Air Sepsis Recent Fever Within 48 Hours Sepsis New/Unexplained Change in Mental Status Sepsis Action Taken by Nursing Laboratory Data 04/16/24 18:27 04/16/24 18:27 Lab Results 04/16/24 04/16/24 Range/Units 18:27 21:47 WBC 20.30 H (4.8-10.8) K/ul RBC 3.24 L (4.20-5.40) M/uL Hgb 9.9 L (12.0-16.0) g/dl Hct 27.7 L (37.0-47.0) % MCV 85.5 (80.0-100.0) fL MCH 30.6 (25.0-34.0) pg MCHC 35.7 (32.0-36.0) g/dL RDW Std Deviation 47.6 H (36.4-46.3) fL RDW Coeff of Amos 15.4 H (11.5-14.5) % Plt Count 511 H (130-400) K/uL MPV 9.6 (9.4-12.4) fL Immature Gran % (Auto) 0.8 % Neut % (Auto) 69.3 % Lymph % (Auto) 22.7 % Esmeralda % (Auto) 7.0 % Eos % (Auto) 0.1 % Baso % (Auto) 0.1 % Neut # (Auto) 14.05 H (1.40-6.50) K/uL Lymph # (Auto) 4.61 H (1.20-3.40) K/uL Esmeralda # (Auto) 1.43 H (0.11-0.59) K/uL Eos # (Auto) 0.02 (0.00-0.50) K/uL Baso # (Auto) 0.03 (0.00-0.20) K/uL Immature Gran # (Auto) 0.16 (0.01-0.20) K/uL Sodium 134 L (136-145) mmol/L Potassium 3.4 L (3.5-5.1) mmol/L Chloride 99 (98-107) mmol/L Carbon Dioxide 26 (21-32) mmol/L Anion Gap 9 (3-11) BUN 17 (6-23) mg/dl Creatinine 0.92 (0.6-1.2) mg/dl Est Cr Clr Drug Dosing 57.2 ml/min Est GFR ( Amer) 81.2 ml/min Est GFR (Non-Af Amer) 70.1 ml/min BUN/Creatinine Ratio 18.5 (10-20) Glucose 90 (70-99(Fasting)) mg/dl Calcium 9.6 (8.6-10.3) mg/dl Total Bilirubin 0.4 (0.2-1.0) mg/dl AST 14 (13-39) U/L ALT 11 (7-52) U/L Alkaline Phosphatase 75 (34-104) U/L Total Protein 6.8 (6.0-8.3) gm/dl Albumin 3.7 (3.4-5.0) gm/dl Globulin 3.1 (2.5-4.0) gm/dl Albumin/Globulin Ratio 1.2 (0.9-2) Lipase 911 H (11-82) U/L Urine Color Yellow Urine Appearance Clear (Clear) Urine pH 7.0 (4.5-7.5) Ur Specific [place] 1.027 (1.000-1.030) Urine Protein Negative (Negative) Urine Glucose (UA) Negative (Negative) Urine Ketones Negative (Negative) Urine Blood Negative (Negative) Urine Nitrite Negative (Negative) Urine Bilirubin Negative (Negative) Urine Urobilinogen Negative (Negative) Ur Leukocyte Esterase 1+ H (Negative) Urine WBC (Auto) 0-5 (0-5) /hpf Urine RBC (Auto) 0-2 (0-2) /hpf U Hyaline Cast (Auto) 0-2 (0-2) /lpf U Epithel Cells (Auto) 0-2 (0-2) /hpf Urine Bacteria (Auto) None Seen (None Seen) Administered Medications Discontinued Medications Sodium Chloride (Nss) 1,000 mls @ 999 mls/hr IV .Q1H1M ONE Stop: 04/16/24 21:23 Last Infusion: 04/16/24 21:39 Dose: Infused Documented By: Admin: 04/16/24 20:33 Dose: 999 mls/hr Documented By: RUTH Ioversol (Optiray 320 100ml) 90 ml IV ONCE ONE Stop: 04/16/24 19:43 Last Admin: 04/16/24 19:42 Dose: 90 ml Documented By: SUKHI Morphine Sulfate (Morphine Sulfate 10 Mg/Ml Carp/Vial) 6 mg IV NOW STA Stop: 04/16/24 20:24 Last Admin: 04/16/24 20:31 Dose: 6 mg Documented By: RUTH Imaging Data Radiologist's Impression: Abdomen/Pelvis CT 04/16/24 18:45 Exam(s): CT ABDOMEN + PELVIS With Contrast IV Amt: 90 cc opti 320 EXAM: CT Abdomen and Pelvis With Intravenous Contrast CLINICAL HISTORY: Reason for exam: abd pain. TECHNIQUE: Axial computed tomography images of the abdomen and pelvis with intravenous contrast. Automated exposure control was utilized for the study. A dose lowering technique was utilized adhering to the principles of ALARA. CONTRAST: Patient received 90 cc opti 320 of IV contrast COMPARISON: No relevant prior studies available. FINDINGS: Lung bases: Unremarkable. No mass. No consolidation. ABDOMEN: Liver: Unremarkable. No mass. Gallbladder and bile ducts: Unremarkable. No calcified stones. No ductal dilation. Pancreas: Inflammatory changes and minimal fluid centered about the pancreas. 2.5 x 2.3 cm cystic structure within the pancreatic head. No ductal dilation. Spleen: Unremarkable. No splenomegaly. Adrenals: Unremarkable. No mass. Kidneys and ureters: Unremarkable. No solid mass. No hydronephrosis. Stomach and bowel: Unremarkable. No obstruction. No mucosal thickening. PELVIS: Appendix: No findings to suggest acute appendicitis. Bladder: Unremarkable. No mass. Reproductive: Unremarkable as visualized. ABDOMEN and PELVIS: Intraperitoneal space: Unremarkable. No free air. No significant fluid collection. Bones/joints: Bone windows demonstrate postoperative changes L3-L5 interbody fusion with posterior laminectomies at L3, L4, and L5. No acute fracture. No dislocation. Soft tissues: Unremarkable. Vasculature: Unremarkable. No abdominal aortic aneurysm. Lymph nodes: Unremarkable. No enlarged lymph nodes. IMPRESSION: Acute pancreatitis without peripancreatic fluid collection 2.5 cm cyst within the pancreatic head.. Mild pancreatic ductal dilatation. ERCP recommended for further evaluation. Electronically signed by: Harman Lozano MD 04/16/24 21:20 PM Discharge Plan Visit Data Chief Complaint: Abdominal Pain Stated Complaint: ABD PAIN, BATHROOM ISSUES ED Provider: Harman Gotti Discharge Problem: Acute pancreatitis, Leukocytosis, Anemia, Hypokalemia Forms Stand Alone Forms: [employer] Prescriptions Prescriptions: No Action trazodone 50 mg tablet 50 mg PO HS loratadine 10 mg tablet 10 mg PO QDL lorazepam 0.5 mg tablet 0.5 mg PO BID PRN (Reason: Anxiety) albuterol sulfate 90 mcg/actuation HFA aerosol inhaler 2 puff INHALATION Q4 PRN (Reason: Shortness Of Breath Or Wheezing) pregabalin 150 mg capsule 150 mg PO AMHS Dulera 200-5 mcg/actuation HFA aerosol inhaler 2 puff INHALATION BID omeprazole 20 mg capsule,delayed release(DR/EC) 20 mg PO DAILY duloxetine 60 mg capsule,delayed release(DR/EC) 60 mg PO QAM losartan 50 mg tablet 50 mg PO DAILY Qty: 30 1RF folic acid 1 mg tablet 2 mg PO DAILY Qty: 60 0RF fluoxetine 40 mg capsule 40 mg PO QAM Rx Instructions: TOTAL DOSE 60 MG--TAKES WITH 20 MG CAP. doxycycline hyclate 100 mg capsule 100 mg PO BID Rx Instructions: STARTED 04/10/24 FOR 10 DAYS hydroxyzine HCl 50 mg tablet 50 mg PO Q6H PRN (Reason: ITCHING/ANXIETY) oxycodone-acetaminophen 10-325 mg tablet 1 tab PO Q6H PRN (Reason: Pain) hydrocodone-acetaminophen 7.5-325 mg tablet 1 tab PO Q12H PRN (Reason: Pain) montelukast 10 mg tablet 10 mg PO HS fluoxetine 20 mg capsule 20 mg PO QAM Rx Instructions: TOTAL DOSE 60 MG--TAKES WITH 40 MG CAP. cyclobenzaprine 5 mg tablet 5 mg PO TID PRN (Reason: MUSCLE SPASMS) amlodipine [Norvasc] 5 mg tablet 5 mg PO QAM Referrals Referrals: Myesha Cavanaugh MD [Primary Care Provider] - Discharge Problem: Acute pancreatitis Qualifiers: Pancreatitis type: unspecified pancreatitis type Acute pancreatitis complication: unspecified Qualified Code(s): K85.90 - Acute pancreatitis without necrosis or infection, unspecified Leukocytosis Qualifiers: Leukocytosis type: unspecified Qualified Code(s): D72.829 - Elevated white blood cell count, unspecified Anemia Qualifiers: Anemia type: unspecified type Qualified Code(s): D64.9 - Anemia, unspecified
[2024-04-16] MEDS: OPTIRAY 320 100ml IV ONE (19:42)
[2024-04-16] MEDS: MoRPHine SULFATE 10 MG/ML CARP/VIAL IV STA (20:31)
[2024-04-16] MEDS: SODIUM CHLORIDE 0.9% 1,000 ML IV ONE (20:33)
--- NOTE | 2024-04-16 21:21 | CT Scan Report ---
Exam(s): CT ABDOMEN + PELVIS With Contrast IV Amt: 90 cc opti 320 EXAM: CT Abdomen and Pelvis With Intravenous Contrast CLINICAL HISTORY: Reason for exam: abd pain. TECHNIQUE: Axial computed tomography images of the abdomen and pelvis with intravenous contrast. Automated exposure control was utilized for the study. A dose lowering technique was utilized adhering to the principles of ALARA. CONTRAST: Patient received 90 cc opti 320 of IV contrast COMPARISON: No relevant prior studies available. FINDINGS: Lung bases: Unremarkable. No mass. No consolidation. ABDOMEN: Liver: Unremarkable. No mass. Gallbladder and bile ducts: Unremarkable. No calcified stones. No ductal dilation. Pancreas: Inflammatory changes and minimal fluid centered about the pancreas. 2.5 x 2.3 cm cystic structure within the pancreatic head. No ductal dilation. Spleen: Unremarkable. No splenomegaly. Adrenals: Unremarkable. No mass. Kidneys and ureters: Unremarkable. No solid mass. No hydronephrosis. Stomach and bowel: Unremarkable. No obstruction. No mucosal thickening. PELVIS: Appendix: No findings to suggest acute appendicitis. Bladder: Unremarkable. No mass. Reproductive: Unremarkable as visualized. ABDOMEN and PELVIS: Intraperitoneal space: Unremarkable. No free air. No significant fluid collection. Bones/joints: Bone windows demonstrate postoperative changes L3-L5 interbody fusion with posterior laminectomies at L3, L4, and L5. No acute fracture. No dislocation. Soft tissues: Unremarkable. Vasculature: Unremarkable. No abdominal aortic aneurysm. Lymph nodes: Unremarkable. No enlarged lymph nodes. IMPRESSION: Acute pancreatitis without peripancreatic fluid collection 2.5 cm cyst within the pancreatic head.. Mild pancreatic ductal dilatation. ERCP recommended for further evaluation. Electronically signed by: Harman Lozano MD 04/16/24 21:20 PM
[2024-04-16 22:08] LABS: Appearance Urine Clear (Clear); Bacteria Urine Automated None Seen (None Seen); Bilirubin Urine Negative (Negative); Blood Urine Negative (Negative); Cast Urine Automated 0-2 /lpf (0-2); Color Urine Yellow; Epithelial Cell Urine Auto 0-2 /hpf (0-2); Glucose Urine UA Negative (Negative); Ketones Urine Negative (Negative); Leukocyte Esterase Urine 1+ (Negative); Nitrite Urine Negative (Negative); Protein Urine Negative (Negative); RBC Urine Automated 0-2 /hpf (0-2); Specific Gravity Urine 1.027 (1.000-1.030); Urobilinogen Urine Negative (Negative); WBC Urine Automated 0-5 /hpf (0-5)
[2024-04-16] MEDS: cefTRIAXone SODIUM 2,000 MG/50 ML BAG IV STA (22:29)
[2024-04-16] MEDS: metroNIDAZOLE 500 MG/100 ML BAG IV STA (22:29)
[2024-04-16] MEDS: HYDROmorphone INJ 0.5 MG/0.5 ML SYR IV STA (22:53)
--- NOTE | 2024-04-16 23:34 | History & Physical Report ---
Date of Service April 16, 2024 Assessment & Plan (1) Acute pancreatitis: Plan: 54-year-old female with past medical history significant for asthma, moderate COPD, hypertension, GERD, fibromyalgia, spinal stenosis,, microcytic anemia, MGUS, depression, ongoing alcoholism, tobacco use, history of lumbar fusion surgeries comes because of abdominal pain and found to have acute pancreatitis. Patient states since about a week she has an upper abdominal pain is p rogressive getting worse and radiating to the back. When she came in pain was 8/10 in severity. Associated with nausea. No diarrhea or constipation. Yesterday she had 1 episode of black stools. Micturating okay. No hematuria . No fevers. Also complains of pain in the lower middle chest. No shortness of breath. No cough. No headache. No runny nose or sore throat. Just completing a course of steroids for bronchitis and also on doxycycline. Drinking one six pack of beers daily. She is currently smoking 3 cigarettes daily. Acute pancreatitis Ongoing alcoholism 2.5 cm cystic pancreatic head with mild pancreatic ductal dilatation May need ERCP Will keep her n.p.o., aggressive IV fluids, pain control, antiemetics as needed Consult GI in a.m. for further recommendations Alcoholism Banana bag P.o. thiamine and folic acid Alcohol withdrawal protocol with gabapentin and IV Ativan as needed Close monitor Tobacco abuse Needs counseling Leukocytosis Possible from recent steroid use Empiric Rocephin Follow cultures Chest discomfort ekg ok will follow serial ce and monitor. COPD and asthma Continue home inhalers Hypertension On amlodipine and losartan Will monitor Chronic anemia MUGS Hemoglobin 9.9 seems at baseline She has an episode of black stools yesterday will follow stool for Hemoccult Depression On duloxetine and fluoxetine Fibromyalgia Hold Pregabalin while on gabapentin withdrawal protocol. GERD PPI DVT prophylaxis SCDs for now and if Hemoccult negative will place [facility] History of Present Illness Chief Complaint: abdominal pain Primary Care Provider: Myesha Cavanaugh MD 54-year-old female with past medical history significant for asthma, moderate COPD, hypertension, GERD, fibromyalgia, spinal stenosis,, microcytic anemia, MGUS, depression, ongoing alcoholism, tobacco use, history of lumbar fusion surgeries comes because of abdominal pain and found to have acute pancreatitis. Patient states since about a week she has an upper abdominal pain is progressive getting worse and radiating to the back. When she came in pain was 8/10 in severity. Associated with nausea. No diarrhea or constipation. Yesterday she had 1 episode of black stools. Micturating okay. No hematuria . No fevers. Also complains of pain in the lower middle chest. No shortness of breath. No cough. No headache. No runny nose or sore throat. Just completing a course of steroids for bronchitis and also on doxycycline. Drinking one six pack of beers daily. She is currently smoking 3 cigarettes daily. Past medical history. As mentioned above Past surgical history. Allograft for spine surgery. Colonoscopy and EGD. EGD with endoscopic ultrasound. Left wrist surgery. Lumbar spine fusion surgery. Tonsillectomy. Sacroiliac joint injection. Social history. Currently smoking 2 to 3 cigarettes daily. Drinking 6 pack of beer daily. Smokes marijuana as per epic. Family history. Father has asthma. Mother had back surgery. Brother had back surgery. Maternal grandmother had cancer. Uncle had lung cancer. Allergies Allergy/AdvReac Type Severity Reaction Status Date / Time latex Allergy Intermediate ITCHY Verified 04/16/24 20:05 nickel Allergy Intermediate Rash Verified 04/16/24 20:05 amoxicillin AdvReac Intermediate thrush Verified 04/16/24 20:05 Home Medications Medication Instructions Recorded Confirmed Type albuterol sulfate 90 mcg/actuation 2 puff inhalation Q4 PRN Shortness 09/25/19 04/16/24 History aerosol inhaler Of Breath Or Wheezing loratadine 10 mg tablet 10 mg PO QDL 09/25/19 04/16/24 History lorazepam 0.5 mg tablet 0.5 mg PO BID PRN Anxiety 09/25/19 04/16/24 History trazodone 50 mg tablet 50 mg PO HS 09/25/19 04/16/24 History duloxetine 60 mg capsule,delayed 60 mg PO QAM 03/08/23 04/16/24 History release mometasone-formoterol HFA 200 2 puff inhalation BID 03/08/23 04/16/24 History mcg-5 mcg/actuation aerosol inhaler (Dulera) omeprazole 20 mg capsule,delayed 20 mg PO DAILY 03/08/23 04/16/24 History release pregabalin 150 mg capsule 150 mg PO AMHS 03/08/23 04/16/24 History folic acid 1 mg tablet 2 mg (2 x 1 mg) PO DAILY #60 tabs 03/11/23 04/16/24 Rx losartan 50 mg tablet 50 mg PO DAILY #30 tabs 03/11/23 04/16/24 Rx amlodipine 5 mg tablet (Norvasc) 5 mg PO QAM 04/16/24 04/16/24 History cyclobenzaprine 5 mg tablet 5 mg PO TID PRN MUSCLE SPASMS 04/16/24 04/16/24 History doxycycline hyclate 100 mg capsule 100 mg PO BID 04/16/24 04/16/24 History fluoxetine 20 mg capsule 20 mg PO QAM 04/16/24 04/16/24 History fluoxetine 40 mg capsule 40 mg PO QAM 04/16/24 04/16/24 History hydrocodone 7.5 mg-acetaminophen 1 tab PO Q12H PRN Pain 04/16/24 04/16/24 History 325 mg tablet hydroxyzine HCl 50 mg tablet 50 mg PO Q6H PRN ITCHING/ANXIETY 04/16/24 04/16/24 History montelukast 10 mg tablet 10 mg PO HS 04/16/24 04/16/24 History oxycodone-acetaminophen 10 mg-325 1 tab PO Q6H PRN Pain 04/16/24 04/16/24 History mg tablet Past Med/Surg History Problem List (Updated 04/16/24 @ 21:59 by Harman Gotti DO) Hypokalemia (Acute) Leukocytosis (Acute) Acute pancreatitis (Acute) Hallucinations Alcoholic cerebellar degeneration Alcoholic encephalopathy Visual disturbance Chronic hyponatremia HTN (hypertension) Chronic anemia Alcohol abuse Tobacco use GERD (gastroesophageal reflux disease) Moderate persistent asthma Depression Stroke-like symptom (Acute) Ataxia (Acute) Anemia (Acute) Vancomycin-induced nephrotoxicity Asthma (Chronic) Fibromyalgia (Chronic) Acute asthma exacerbation (Acute) Acute asthma exacerbation (Acute) Acute bronchiolitis (Acute) PNA (pneumonia) (Acute) Right otitis media (Acute) Medical History Alcohol abuse Asthma Chronic anemia Chronic hyponatremia Depression Fibromyalgia GERD (gastroesophageal reflux disease) HTN (hypertension) Moderate persistent asthma Tobacco use Vancomycin-induced nephrotoxicity Surgical History History of spinal surgery Hx of tonsillectomy Family History Other Asthma Cancer Social History Smoking Status: Light tobacco smoker Tobacco Type: Cigarettes Cigarettes Per Day: 3; Second Hand Exposure: Yes; Do You Dip or Chew Tobacco: No; Tobacco Cessation Education Requested by Patient: No Hx Alcohol Use: Yes Alcohol type: beer Alcohol Intake Frequency Comment: 5-6 daily Hx Substance Use: No Preferred Language: [place] Communication Ability: Effective Senior Information Security Analyst Required: No Beliefs That Will Affect Care: None Current Living Situation: Significant Other Feels Safe at Home: Yes Assistive Devices: Cane, Denture - Upper, Denture - Lower, Glasses and Walker Review of Systems Review of Systems: All systems reviewed & are unremarkable except as noted in HPI & below Physical Exam Physical Exam: General- Not in distress Head- atraumatic Eyes- PERRL. ENT- oropharynx clear Neck- supple, no JVD,. Lungs- clear to auscultation no wheezing or crackles Heart- regular rhythm; no murmur, no gallop. Abdomen- normal bowel sounds, soft, diffuse tender nd guarding. no distension Extremities- no pretibial edema, no erythema seen Neuro- alert, oriented PERRL, no facial palsy; no dysarthria; moves extremi ties Results & Data Results & Data Vital Signs (Past 12 Hours) Vital Signs Temp Pulse Pulse Resp BP BP Pulse Ox 04/16/24 21:15 90 16 141/96 H 97 04/16/24 20:34 92 H 16 151/93 H 99 04/16/24 19:10 84 04/16/24 18:49 84 18 145/81 H 99 04/16/24 18:17 36.9 C 94 H 18 135/81 98 O2 Del Method 04/16/24 21:15 Room Air 04/16/24 20:34 Room Air 04/16/24 19:10 04/16/24 18:49 Room Air 04/16/24 18:17 Room Air Diagnostic Findings Laboratory Results WBC 20.30 K/ul (4.8-10.8) H 04/16/24 18:27 RBC 3.24 M/uL (4.20-5.40) L 04/16/24 18:27 Hgb 9.9 g/dl (12.0-16.0) L 04/16/24 18: Hct 27.7 % (37.0-47.0) L 04/16/24 18: MCV 85.5 fL (80.0-100.0) 04/16/24 18: MCH 30.6 pg (25.0-34.0) 04/16/24 18: MCHC 35.7 g/dL (32.0-36.0) 04/16/24 18: RDW Std Deviation 47.6 fL (36.4-46.3) H 04/16/24 18: RDW Coeff of Amos 15.4 % (11.5-14.5) H 04/16/24 18: Plt Count 511 K/uL (130-400) H 04/16/24 18: MPV 9.6 fL (9.4-12.4) 04/16/24 18: Immature Gran % (Auto) 0.8 % 04/16/24 18: Neut % (Auto) 69.3 % 04/16/24 18:27 Lymph % (Auto) 22.7 % 04/16/24 18: [place] % (Auto) 7.0 % 04/16/24 18: Eos % (Auto) 0.1 % 04/16/24 18: Baso % (Auto) 0.1 % 04/16/24 18: Neut # (Auto) 14.05 K/uL (1.40-6.50) H 04/16/24 18: Lymph # (Auto) 4.61 K/uL (1.20-3.40) H 04/16/24 18: [place] # (Auto) 1.43 K/uL (0.11-0.59) H 04/16/24 18: Eos # (Auto) 0.02 K/uL (0.00-0.50) 04/16/24 18: Baso # (Auto) 0.03 K/uL (0.00-0.20) 04/16/24 18: Immature Gran # (Auto) 0.16 K/uL (0.01-0.20) 04/16/24 18: Sodium 134 mmol/L (136-145) L 04/16/24 18:27 Potassium 3.4 mmol/L (3.5-5.1) L 04/16/24 18:27 Chloride 99 mmol/L (98-107) 04/16/24 18:27 Carbon Dioxide 26 mmol/L (21-32) 04/16/24 18:27 Anion Gap 9 (3-11) 04/16/24 18:27 BUN 17 mg/dl (6-23) 04/16/24 18:27 Creatinine 0.92 mg/dl (0.6-1.2) 04/16/24 18:27 Est Cr Clr Drug Dosing 57.2 ml/min 04/16/24 18:27 Est GFR ( Amer) 81.2 ml/min 04/16/24 18:27 Est GFR (Non-Af Amer) 70.1 ml/min 04/16/24 18:27 BUN/Creatinine Ratio 18.5 (10-20) 04/16/24 18:27 Glucose 90 mg/dl (70-99(Fasting)) 04/16/24 18:27 Calcium 9.6 mg/dl (8.6-10.3) 04/16/24 18:27 Total Bilirubin 0.4 mg/dl (0.2-1.0) 04/16/24 18:27 AST 14 U/L (13-39) 04/16/24 18:27 ALT 11 U/L (7-52) 04/16/24 18:27 Alkaline Phosphatase 75 U/L (34-104) 04/16/24 18:27 Total Protein 6.8 gm/dl (6.0-8.3) 04/16/24 18:27 Albumin 3.7 gm/dl (3.4-5.0) 04/16/24 18:27 Globulin 3.1 gm/dl (2.5-4.0) 04/16/24 18:27 Albumin/Globulin Ratio 1.2 (0.9-2) 04/16/24 18:27 Lipase 911 U/L (11-82) H 04/16/24 18:27 Urine Color Yellow 04/16/24 21:47 Urine Appearance Clear (Clear) 04/16/24 21:47 Urine pH 7.0 (4.5-7.5) 04/16/24 21:47 Ur Specific Dexter 1.027 (1.000-1.030) 04/16/24 21:47 Urine Protein Negative (Negative) 04/16/24 21:47 Urine Glucose (UA) Negative (Negative) 04/16/24 21:47 Urine Ketones Negative (Negative) 04/16/24 21:47 Urine Blood Negative (Negative) 04/16/24 21:47 Urine Nitrite Negative (Negative) 04/16/24 21:47 Urine Bilirubin Negative (Negative) 04/16/24 21:47 Urine Urobilinogen Negative (Negative) 04/16/24 21:47 Ur Leukocyte Esterase 1+ (Negative) H 04/16/24 21:47 Urine WBC (Auto) 0-5 /hpf (0-5) 04/16/24 21:47 Urine RBC (Auto) 0-2 /hpf (0-2) 04/16/24 21:47 U Hyaline Cast (Auto) 0-2 /lpf (0-2) 04/16/24 21:47 U Epithel Cells (Auto) 0-2 /hpf (0-2) 04/16/24 21:47 Urine Bacteria (Auto) None Seen (None Seen) 04/16/24 21:47 Impressions Abdomen/Pelvis CT 04/16/24 18:45 Exam(s): CT ABDOMEN + PELVIS With Contrast IV Amt: 90 cc opti 320 EXAM: CT Abdomen and Pelvis With Intravenous Contrast CLINICAL HISTORY: Reason for exam: abd pain. TECHNIQUE: Axial computed tomography images of the abdomen and pelvis with intravenous contrast. Automated exposure control was utilized for the study. A dose lowering technique was utilized adhering to the principles of ALARA. CONTRAST: Patient received 90 cc opti 320 of IV contrast COMPARISON: No relevant prior studies available. FINDINGS: Lung bases: Unremarkable. No mass. No consolidation. ABDOMEN: Liver: Unremarkable. No mass. Gallbladder and bile ducts: Unremarkable. No calcified stones. No ductal dilation. Pancreas: Inflammatory changes and minimal fluid centered about the pancreas. 2.5 x 2.3 cm cystic structure within the pancreatic head. No ductal dilation. Spleen: Unremarkable. No splenomegaly. Adrenals: Unremarkable. No mass. Kidneys and ureters: Unremarkable. No solid mass. No hydronephrosis. Stomach and bowel: Unremarkable. No obstruction. No mucosal thickening. PELVIS: Appendix: No findings to suggest acute appendicitis. Bladder: Unremarkable. No mass. Reproductive: Unremarkable as visualized. ABDOMEN and PELVIS: Intraperitoneal space: Unremarkable. No free air. No significant fluid collection. Bones/joints: Bone windows demonstrate postoperative changes L3-L5 interbody fusion with posterior laminectomies at L3, L4, and L5. No acute fracture. No dislocation. Soft tissues: Unremarkable. Vasculature: Unremarkable. No abdominal aortic aneurysm. Lymph nodes: Unremarkable. No enlarged lymph nodes. IMPRESSION: Acute pancreatitis without peripancreatic fluid collection 2.5 cm cyst within the pancreatic head.. Mild pancreatic ductal dilatation. ERCP recommended for further evaluation. Electronically signed by: Harman Lozano MD 04/16/24 21:20 PM ECG Additional Comments: ECG normal sinus rhythm at the rate of 97. Possible left atrial enlargement. No significant change was found. Code Status & VTE Plan VTE Prophylaxis Plan VTE Prophylaxis will be ordered: Yes (1) Acute pancreatitis Acute pancreatitis complication: unspecified Pancreatitis type: unspecified pancreatitis type Qualified Code(s): K85.90 - Acute pancreatitis without necrosis or infection, unspecified
[2024-04-16] MEDS ORDERED: GABAPENTIN 1200MG ALCOHOL WITHDRAWAL LOAD PO STA (23:59)
[2024-04-16] MEDS ORDERED: ALBUTEROL HFA 8 GM INHALER INH PRN (23:59)
[2024-04-16] MEDS ORDERED: LORazepam 1 MG in SYRINGE 0.5 ML IV PRN (23:59)
[2024-04-16] MEDS ORDERED: ONDANSETRON INJ 2 MG/ML 2 ML VIAL IV PRN (23:59)
[2024-04-16] MEDS ORDERED: NITROGLYCERIN SL 0.4 MG/TAB TAB SL PRN (23:59)
[2024-04-16] MEDS ORDERED: ACETAMINOPHEN 325 MG TAB PO PRN (23:59)
[2024-04-16] MEDS ORDERED: LORazepam 2 MG in SYRINGE 1 ML IV PRN (23:59)
[2024-04-16] MEDS ORDERED: LORazepam 3 MG in SYRINGE 1.5 ML IV PRN (23:59)
[2024-04-16] MEDS ORDERED: Ativan IV Alcohol Withdrawal--Active Protocol IV PRN (23:59)
[2024-04-16] MEDS ORDERED: hydrOXYzine HCl 25 MG TAB PO PRN (23:59)
[2024-04-17] MEDS: HYDROmorphone INJ 0.5 MG/0.5 ML SYR IV PRN (00:41)
[2024-04-17] MEDS: MULTI-VITAMIN INFUSION 10 ML, THIAMINE HCL 100 MG, FOLIC ACID 1 MG in SODIUM CHLORIDE 0... IV ONE (01:06)
[2024-04-17] MEDS: DOXYCYCLINE HYCLATE 100 MG CAP PO SCH (01:07)
[2024-04-17] MEDS: GABAPENTIN 600 MG TAB PO ONE (01:08)
[2024-04-17] MEDS: PANTOprazole 40 MG in SYRINGE 0 ML IV SCH (01:08)
--- OUTSIDE RECORDS SUMMARY | 2024-04-17 01:39 | External Medical Summary | Summary of Care ---
Author Name Unknown Organization [facility] Address [address] [facility] [place] [address] Phone [phone] Care Team Providers Care Conveyor Operator Name Role Phone Олег Frias MD Primary Care Provid er Reason for Visit * Reason Comments eRx-Medication Refill Encounter Details Date Type Department Care Team (Late st Contact Info) Description 04/14/2024 Refill [facility] [address] [place] [id number] Олег Frias MD [address] [place] [address] Allergies Active Allergy Reactions Criticality Noted Date Comments Amoxicillin 01/05/2017 thrush Latex 06/20/2013 Hives, rash and swelling Lisinopril 06/02/2023 COUGH Nickel Rash 12/03/2020 documented as of this encounter (statuses as of 04/15/2024) Medications Medication Sig Dispensed Refills Start Date End Date Status hydrOXYzine HCl 50 MG Oral TabletIndications :Anxiety,Pruritus Take 1 Tablet by mouth every 6 hours as needed for Itching or Anxiety. 60 Tablet 5 05/02/2023 Active Compressor NebulizerIndicati ons:Moderate persistent asthma without complication,COPD , 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 Use as directed. 1 Each 1 05/26/2023 Active Additional Information Patient not taking.Reported on 12/05/2023 Pregabalin 150 MG Oral Capsule (Lyrica)Indicatio ns:Spinal stenosis of lumbar region with neurogenic claudication Take 1 Capsule by mouth in the morning and 1 Capsule before bedtime. 60 Capsule 2 09/19/2023 Active FLUoxetine HCl 40 MG Oral Capsule (PROzac)Indicatio ns:Major depressive disorder with single episode, in full remission (HCC) Take 1 capsule by mouth in the morning 90 Capsule 1 10/27/2023 Active Folic Acid 1 MG Oral TabletIndications :Anemia due to folic acid deficiency, unspecified deficiency type Take 1 Tablet by mouth in the morning. 90 Tablet 3 11/06/2023 Active Acetaminophen 500 MG Oral Tablet (Tylenol) Take 2 Tablets by mouth every 6 hours as needed. Active DULoxetine HCl 60 MG Oral Capsule Delayed Release Particles (Cymbalta)Indicat ions:Fibromyalgia ,Major depressive disorder with single episode, in full remission (HCC) TAKE 1 CAPSULE BY MOUTH ONCE DAILY IN THE MORNING DO NOT CUT, CRUSH, OR CHEW CAPSULE 90 Capsule 3 12/18/2023 Active traZODone HCl 50 MG Oral Tablet (Desyrel)Indicati ons:Major depressive disorder with single episode, in full remission (HCC) TAKE 1 TABLET BY MOUTH AT BEDTIME 90 Tablet 1 01/17/2024 Active LORazepam 0.5 MG Oral Tablet (Ativan)Indicatio ns:Anxiety TAKE 1 TABLET BY MOUTH ONCE DAILY NEEDED FOR ANXIETY 30 Tablet 01/18/2024 Active Losartan Potassium 50 MG Oral Tablet (Cozaar) Take 1 Tablet by mouth in the morning. 30 Tablet 5 01/18/2024 Active Albuterol Sulfate HFA 108 (90 Base) MCG/ACT Inhalation Aerosol SolutionIndicatio ns:Exacerbation of asthma, unspecified asthma severity, unspecified whether persistent INHALE 2 PUFFS BY MOUTH EVERY 4 HOURS NEEDED FOR WHEEZING 36 g 1 02/16/2024 Active HYDROcodone-Aceta minophen 7.5-325 MG Oral TabletIndications :Spinal stenosis of lumbar region with neurogenic claudication,S/P lumbar fusion,Medical marijuana use,History of lumbar fusion,Lumbar radiculitis,Sacro iliac joint pain Take 1 Tablet by mouth every 12 hours as needed for Pain, Severe. 60 Tablet 03/25/2024 Active FLUoxetine HCl 20 MG Oral Capsule (PROzac)Indicatio ns:Anxiety,Histor y of alcohol use disorder,Current severe episode of major depressive disorder without psychotic features, unspecified whether recurrent (HCC),Major depressive disorder with single episode, in full remission (HCC) Take 1 Capsule by mouth in the morning. Add to 40mg dose for total daily dose 60mg.. 90 Capsule 1 03/25/2024 Active Omeprazole 20 MG Oral Capsule Delayed Release (PriLOSEC)Indicat ions:Epigastric pain,Gallbladder sludge,Gastroesop hageal reflux disease without esophagitis Take 1 Capsule by mouth in the morning and 1 Capsule before bedtime. 60 Capsule 03/25/2024 Active amLODIPine Besylate 5 MG Oral Tablet (Norvasc)Indicati ons:HTN, goal below 140/90 TAKE 1 TABLET BY MOUTH IN THE MORNING 90 Tablet 03/29/2024 Active Azithromycin 250 MG Oral Tablet (Zithromax)Indica tions:Bronchitis, complicated Take 2 tabs by mouth on the first day, then 1 tab daily on days two through five 6 Tablet 04/01/2024 Active Dulera 200-5 MCG/ACT Inhalation Aerosol (Mometasone-Formo terol)Indications :COPD, 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) Inhale 2 Puffs by mouth in the morning and 2 Puffs before bedtime. 13 g 11 04/01/2024 Active Cyclobenzaprine HCl 5 MG Oral Tablet (Flexeril)Indicat ions:Spasm of muscle TAKE 1 TABLET BY MOUTH THREE TIMES DAILY NEEDED FOR MUSCLE SPASM 60 Tablet 04/01/2024 Active Albuterol Sulfate (2.5 MG/3ML) 0.083% Inhalation Nebulization Solution (Proventil)Indica tions:COPD, 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),Moderate persistent asthma without complication Inhale 1 Vial via nebulizer every 6 hours as needed for Wheezing. J45.40 J44.9 360 mL 04/01/2024 Active Doxycycline Hyclate 100 MG Oral CapsuleIndication s:COPD exacerbation (HCC) Take 1 Capsule by mouth in the morning and 1 Capsule before bedtime. Do all this for 10 days. Until gone.. 20 Capsule 04/08/2024 04/18/20 24 Active EQ All Day Allergy Relief 10 MG Oral Tablet (Loratadine) Take 1 tablet by mouth once daily 90 Tablet 1 04/15/2024 Active Loratadine 10 MG Oral Tablet (Claritin) Take 1 tablet by mouth once daily 90 Tablet 1 10/11/2023 04/15/20 24 Discontinued documented as of this encounter (statuses as of 04/15/2024) Active Problems Problem Noted Date Diagnosed Date MGUS (monoclonal gammopathy of unknown significa nce) 10/16/2023 Sacroiliac joint pain 05/16/2023 Alcohol use disorder, severe, in early remission 05/16/2023 Microcytic anemia 05/03/2023 Severe tobacco dependence in early remission Microcytic anemia 05/02/2023 COPD, moderate 01/06/2023 Essential (primary) hypertension 01/06/2023 History of lumbar fusion 06/15/2022 Spinal stenosis of lumbar re gion with neurogenic claudication 06/15/2022 Gastroesophageal reflux disease without esophagi tis 01/06/2022 Major depressive disorder wi th single episode, in full remission 01/01/2019 Lumbar radiculitis 10/11/2017 Tobacco use disorder 07/24/2014 Asthma, moderate persistent 07/24/2014 Fibromyalgia 07/16/2013 documented as of this encounter (statuses as of 04/15/2024) Resolved Problems Problem Noted Date Diagnosed Date Resolved Date Food insecurity 04/19/2021 08/26/2021 Overview: Per [facility] Protocol Asthma exacerbation 03/30/2015 07/07/20 17 Moderate persistent asthma 11/09/2014 0 03/30/2015 Overview: PFT Pneumonitis 07/24/2014 01/06/2022 Asthma exacerbation 07/24/2014 03/30/20 15 documented as of this encounter (statuses as of 04/15/2024) Immunizations Name Administration Dates Next Due PPD 07/27/2021,07/05/2017 Pneumococcal Polysaccharide PPV23 (Pneumovax) Seasonal Influenza, PF, 6 M & above, IM , (FluLaval or Fluzone) 07/07/2017 07/07/2018 Seasonal Influenza, Split, IIV3, With Preserve, Inj 06/20/2013 TDAP (age 10 and older)(Boostrix) 06/20/2013 documented as of this encounter Social History Tobacco Use Types Packs/Day Years Used Date Smoking Tobacco: Every Day Cigarettes 0.3 30 Passive Smoke Exposure: Past Smokeless Tobacco: Never Comments:smoke 2-4 cig a day Alcohol Use Standard Drinks/Week Comments Yes 0 (1 standard drink = 0.6 oz pure alcohol) social, every evening, beer- daily approx 6 PHQ-2 Answer Date Recorded PHQ Adult Total Score 14 01/16/2024 Hunger Vital Sign Answer Date Recorded Within the past 12 months, y ou worried that your food would run out before you got the money to buy more. Never true 03/15/20 23 Within the past 12 months, t he food you bought just didn't last and you didn't have money to get more. Never true 03/15/2023 Childcare Answer Date Recorded Do you feel overwhelmed with taking care of a child, family member or friend? No 10/25/2023 Does your family need help f inding childcare? (Household - for ages 0-17 years) Not on file 10/25/2023 Clothing Answer Date Recorded Have you been unable to get clothing when it was really needed? No 10/25/2023 Is your family able to get c lothes or diapers when needed? (Household - for ages 0-17 years) Not on file 10/25/2023 Personal Safety Answer Date Recorded Do you feel unsafe or have concerns for your saf ety? No 10/25/2023 Do you have concerns for you r family's safety? (Household - for ages 0-17 years) Not on file 10/25/2023 Utilities Answer Date Recorded Do you have trouble paying y our heating, water, or electric bill? Yes 10/25/2023 Is your family able to pay t he heat, water, or electric bill? (Household - for ages 0-17 years) Not on file 10/25/2023 Does your family have access to good internet? (Household - for ages 0-17 years) Not on file 10/25/2023 Employment Status Answer Date Recorded Are you unemployed or without regular income? Ye s 10/25/2023 Does the household have a re gular source of income? (Household - for ages 0-17 years) Not on file 10/25/2023 Social Connections Answer Date Recorded How often do you feel lonely or isolated from th ose around you? Always 10/25/2023 Financial Resource Strain Answer Date R ecorded Do you have any trouble payi ng for your medications, or do you think you might in the future? Yes 10/25/2023 Does your family have troubl e paying for medicine? (Household - for ages 0-17 years) Not on file 10/25/2023 Transportation Needs Answer Date Record ed READ ONLY Do you have troubl e getting a ride to medical visits or work? Never True 10/25/2023 Does your family have a hard time getting a ride to doctors visits? (Household - for ages 0-17 years) Not on file 10/25/2023 Has lack of transportation k ept you from medical appointments, meetings, work, or from getting things needed for daily living? Check all that apply. (Adult - for ages 18 years and over) Not on file 10/25/2023 Do you (or your family) have trouble finding or paying for a ride (transportation)? (Household - for ages 0-17 years) Not on file 10/25/2023 Housing Stability Answer Date Recorded Do you currently live in a s helter or have no steady place to sleep at night? No 10/25/2023 READ ONLY Do you think you a re at risk of becoming homeless? No 10/25/2023 Does your family worry about paying for your home or becoming homeless? (Household - for ages 0-17 years) Not on file 0 10/25/2023 Are you homeless or worried that you might be in the future? (Adult - for ages 18 years and over) Not on file Are you (or your family) romina eless or worried that you might be in the future? (Household - for ages 0-17 years) Not on file Food Insecurity Answer Date Recorded Do you need food for this week? No 10/25/2023 Are you able to get enough f ood for your family? (Household - for ages 0-17 years) Not on file 10/25/2023 Does your family need food t his week? (Household - for ages 0-17 years) Not on file 10/25/2023 Do you always have enough fo od for your family? (Household - for ages 0-17 years) Not on file 10/25/2023 Sex and Gender Information Value Date Recorded Sex Assigned at Female 11/27/2018 11:48 AM EDT Gender Identity Female 11/27/2018 11:48 AM EDT Sexual Orientation Not on file Job Start Date Occupation Industry Not on file Not on file Not on file documented as of this encounter Functional Status Functional Status Response Date of Assess ment Are you deaf or do you have serious difficulty h earing? No 10/12/2017 Are you blind or do you have serious difficulty seeing, even when wearing glasses? No 10/12/2017 Do you have serious difficul ty walking or climbing stairs? (5 years old or older) Yes 10/12/2017 Do you have difficulty dress ing or bathing? (5 years old or older) No 10/12/2017 Because of a physical, menta l, or emotional condition, do you have difficulty doing errands alone such as visiting a doctor s office or shopping? (15 years old or older) Yes 10/12/19 18 Cognitive Status Response Date of Assessm ent Because of a physical, menta l, or emotional condition, do you have serious difficulty concentrating, remembering, or making decisions? (5 years old or older) Yes 10/12/2017 documented as of this encounter Miscellaneous Notes * Telephone Encounter - Jessica Keller RPh - 04/15/2024 12:27 PM EDTSigned Prescriptions: Disp Refills EQ All Day Allergy Relief 10 MG Oral Table*90 Tab*1 Sig: Take 1 tablet by mouth once dailyAuthorizing Provider: ОЛЕГ FRIAS User: JESSICA KELLER documented in this encounter Plan of Treatment Upcoming Encounters Date Type Department Care Team (Late st Contact Info) Description 04/22/2024 3:00 PM EDT Office Visit Pharmacy, [facility] [place] [address] [place] [address] Pharmacist2, [facility] [address] [place] [address] 05/14/2024 2:00 PM EDT Imaging Radiology, [place] [address] [place] [address] 05/22/2024 12:30 PM EDT Telemedicine Psychology [facility], [place] [address] [place] [phone] Lurdes Fong, [employer]OWBO[employer] ENGINEER [address] [place] [address] 09/30/2024 6:20 PM EST Office Visit Family [facility], [place] [address] [place] [address] Олег Frias MD [address], [place] [id number] Scheduled Procedures Name Priority Associated Diagnoses Date/Ti me COLONOSCOPY FLEXIBLE PROXIMAL DIAGNOSTIC Recall Nausea & vomiting Unintentional weight loss ESOPHAGOGASTRODUODENOSCOPY ( EGD), FLEXIBLE, TRANSORAL, DIAGNOSTIC Recall Nausea & vomiting Unintentional weight loss Health Maintenance Due Date Last Done Comments Alpha-1 Antitrypsin 1987 Hepatitis B Vaccine (1 of 3 - 19+ 3-dose series) 1988 HPV/Co-Test 1999 Cologuard 2014 Fecal Occult Blood Test 2014 Sigmoidoscopy 2014 Cervical Cancer Screening 07/07/2020 Pap Smear 07/07/2020 07/07/2017, 07/16/2013 DISCUSS TOBACCO CESSATION (REFER TO SMARTSET #3291) 01/06/2023 01/06/2022, 09/23/2021 COVID-19 Vaccine ( - season) 2023 DTaP,Tdap,and Td Vaccines (2 - Td or Tdap) 06/20/2023 06/20/2013 Mammogram 01/18/2024 01/17/2023, 05/0 05/2023, 06/27/2013 Influenza Vaccine (FLU shot) (#1) 2024 07/07/2017, 06/20/2013 O2 ASSESSMENT COMPLETED IN PAST YEAR FOR COPD 12/04/2024 12/05/2023 GFR 12/30/2024 12/31/2023, 04/2 , 11/28/2023, Additional history exists Depression Monitoring 01/15/2025 01/16/2024 HIV Screening 03/25/2025 Postponed from 1984 (Patient Declined After Education) Pneumococcal Vaccine: Pediatrics (0 to 5 Years) and At-Risk Patients (6 to 64 Years) (2 of 2 - PCV) 03/25/2025 06/20/2013 Postponed from 06/20/2014 (Patient Declined After Education) Zoster Vaccines (1 of 2) 03/25/2025 Pos tponed from 2019 (Patient Declined After Education) Albumin/Creatinine Ratio 09/01/2026 09/01/2023 Lipid Panel 05/11/2027 05/11/2022 Colonoscopy 09/27/2033 09/27/2023 Colorectal Cancer Screening 09/27/2033 HPV (Gardasil) Vaccine Aged Out No lo nger eligible based on patient's age to complete this topic MENINGOCOCCAL (MENACTRA/MENVEO) Aged Out No longer eligible based on patient's age to complete this topic documented as of this encounter Medical Devices Implanted Type Area Tire Tester Device Identifier Shelf Expiration Date Model / Serial / Lot Vitoss Bimodal Foam Pack 10cc - [id number] Implanted:Qty : 2 on 10/11/2017 by Rosendo Nathan, DO at [facility] N/A: Spine Lumbar SARAH : SPINE 03/08/2019 / / [id number] Vitoss Bimodal Foam Pack 10cc - [id number] Implanted:Qty : 1 on 10/11/2017 by Rosendo Nathan, DO at [facility] N/A: Spine Lumbar SARAH : SPINE 02/05/2019 / / [id number] Screw Audie Bina 3 Ti Set - [id number] Implanted:Qty : 4 on 10/11/2017 by Rosendo Nathan, DO at [facility] N/A: Spine Lumbar SARAH : SPINE [id number] / / 6.5 X 50 Mm Serrate Screws Implanted:Qty : 2 on 10/11/2017 by Rosendo Nathan DO at [facility] N/A: Spine Lumbar SARAH : SPINE [id number] / / 6.5 X 45 Mm Serrate Screw Implanted:Qty : 2 on 10/11/2017 by Rosendo Nathan DO at [facility] N/A: Spine Lumbar SARHA : SPINE [id number] / / 9 X 23x 6 - 9mm Pl Implanted:Qty : 1 on 10/11/2017 by Rosendo Nathan DO at [facility] N/A: Spine Lumbar SARAH : SPINE [id number] / / Shashank Bina 3 Ti 6x40mm - [id number] Implanted:Qty : 1 on 10/11/2017 by Rosendo Nathan DO at [facility] N/A: Spine Lumbar SARAH : SPINE [id number] / / Shashank Bina 3 Ti 6x45mm - [id number] Implanted:Qty : 1 on 10/11/2017 by Rosendo Nathan DO at [facility] N/A: Spine Lumbar SARAH : SPINE [id number] / / documented as of this encounter Advance Directives * Full Code (Latest Code Status on File) Date Activated Date Inactivated Comments 10/11/2017 9:23 AM 10/13/2017 10:36 PM This order r eflects the patients wishes and were consensually agreed upon. Care Teams Conveyor Operator Relationship Specialty Start Date End Date Олег Frias MD [address] [facility] [place] [address] PCP - General Family Medicine 02/18/22 documented as of this encounter
--- OUTSIDE RECORDS SUMMARY | 2024-04-17 01:40 | External Medical Summary | Summary of Care ---
Author Name Unknown Organization [facility] Address [address] [address] Phone [phone] Care Team Providers Care Route Sales Manager Name Role Phone Myesha Cavanaugh MD Primary Care Provid er Reason for Visit * Reason Comments Acute Bronchitis Encounter Details Date Type Department Care Team (Late st Contact Info) Description 04/01/2024 11:00 AM EDT Telemedicine [facility] [address] [place] [address] Myesha Cavanaugh MD [address] [place] [address] Bronchitis, complicated*; COPD, 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); Spasm of muscle; Moderate persistent asthma without complication Allergies Active Allergy Reactions Criticality Noted Date Comments Amoxicillin 01/05/2017 thrush Latex 06/20/2013 Hives, rash and swelling Lisinopril 06/02/2023 COUGH Nickel Rash 12/03/2020 documented as of this encounter (statuses as of 04/01/2024) Medications Medication Sig Dispensed Refills Start Date End Date Status hydrOXYzine HCl 50 MG Oral TabletIndications: Anxiety,Pruritus Take 1 Tablet by mouth every 6 hours as needed for Itching or Anxiety. 60 Tablet 5 05/02/2023 Active Compressor NebulizerIndicatio ns:Moderate persistent asthma without complication,COPD, 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 Use as directed. 1 Each 1 05/26/2023 Active Additional Information Patient not taking.Reported on 12/05/2023 Pregabalin 150 MG Oral Capsule (Lyrica)Indication s:Spinal stenosis of lumbar region with neurogenic claudication Take 1 Capsule by mouth in the morning and 1 Capsule before bedtime. 60 Capsule 2 09/19/2023 Active Loratadine 10 MG Oral Tablet (Claritin) Take 1 tablet by mouth once daily 90 Tablet 1 10/11/2023 Active FLUoxetine HCl 40 MG Oral Capsule (PROzac)Indication s:Major depressive disorder with single episode, in full remission (HCC) Take 1 capsule by mouth in the morning 90 Capsule 1 10/27/2023 Active Folic Acid 1 MG Oral TabletIndications: Anemia due to folic acid deficiency, unspecified deficiency type Take 1 Tablet by mouth in the morning. 90 Tablet 3 11/06/2023 Active Acetaminophen 500 MG Oral Tablet (Tylenol) Take 2 Tablets by mouth every 6 hours as needed. Active DULoxetine HCl 60 MG Oral Capsule Delayed Release Particles (Cymbalta)Indicati ons:Fibromyalgia,M ajor depressive disorder with single episode, in full remission (HCC) TAKE 1 CAPSULE BY MOUTH ONCE DAILY IN THE MORNING DO NOT CUT, CRUSH, OR CHEW CAPSULE 90 Capsule 3 12/18/2023 Active traZODone HCl 50 MG Oral Tablet (Desyrel)Indicatio ns:Major depressive disorder with single episode, in full remission (HCC) TAKE 1 TABLET BY MOUTH AT BEDTIME 90 Tablet 1 01/17/2024 Active LORazepam 0.5 MG Oral Tablet (Ativan)Indication s:Anxiety TAKE 1 TABLET BY MOUTH ONCE DAILY NEEDED FOR ANXIETY 30 Tablet 01/18/2024 Active Losartan Potassium 50 MG Oral Tablet (Cozaar) Take 1 Tablet by mouth in the morning. 30 Tablet 5 01/18/2024 Active Albuterol Sulfate HFA 108 (90 Base) MCG/ACT Inhalation Aerosol SolutionIndication s:Exacerbation of asthma, unspecified asthma severity, unspecified whether persistent INHALE 2 PUFFS BY MOUTH EVERY 4 HOURS NEEDED FOR WHEEZING 36 g 1 02/16/2024 Active HYDROcodone-Acetam inophen 7.5-325 MG Oral TabletIndications: Spinal stenosis of lumbar region with neurogenic claudication,S/P lumbar fusion,Medical marijuana use,History of lumbar fusion,Lumbar radiculitis,Sacroi liac joint pain Take 1 Tablet by mouth every 12 hours as needed for Pain, Severe. 60 Tablet 03/25/2024 Active FLUoxetine HCl 20 MG Oral Capsule (PROzac)Indication s:Anxiety,History of alcohol use disorder,Current severe episode of major depressive disorder without psychotic features, unspecified whether recurrent (HCC),Major depressive disorder with single episode, in full remission (HCC) Take 1 Capsule by mouth in the morning. Add to 40mg dose for total daily dose 60mg.. 90 Capsule 1 03/25/2024 Active Omeprazole 20 MG Oral Capsule Delayed Release (PriLOSEC)Indicati ons:Epigastric pain,Gallbladder sludge,Gastroesoph ageal reflux disease without esophagitis Take 1 Capsule by mouth in the morning and 1 Capsule before bedtime. 60 Capsule 03/25/2024 Active amLODIPine Besylate 5 MG Oral Tablet (Norvasc)Indicatio ns:HTN, goal below 140/90 TAKE 1 TABLET BY MOUTH IN THE MORNING 90 Tablet 1 03/29/2024 Active Azithromycin 250 MG Oral Tablet (Zithromax)Indicat ions:Bronchitis, complicated Take 2 tabs by mouth on the first day, then 1 tab daily on days two through five 6 Tablet 04/01/2024 Active predniSONE 20 MG Oral Tablet (Deltasone)Indicat ions:Bronchitis, complicated Take 2 Tablets by mouth in the morning for 5 days. 10 Tablet 04/01/2024 4 Active Dulera 200-5 MCG/ACT Inhalation Aerosol (Mometasone-Formot lovely)Indications:C OPD, 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) Inhale 2 Puffs by mouth in the morning and 2 Puffs before bedtime. 13 g 11 04/01/2024 Active Cyclobenzaprine HCl 5 MG Oral Tablet (Flexeril)Indicati ons:Spasm of muscle TAKE 1 TABLET BY MOUTH THREE TIMES DAILY NEEDED FOR MUSCLE SPASM 60 Tablet 04/01/2024 Active Albuterol Sulfate (2.5 MG/3ML) 0.083% Inhalation Nebulization Solution (Proventil)Indicat ions:COPD, 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),Moderate persistent asthma without complication Inhale 1 Vial via nebulizer every 6 hours as needed for Wheezing. J45.40 J44.9 360 mL 11 04/01/2024 Active Albuterol Sulfate (2.5 MG/3ML) 0.083% Inhalation Nebulization Solution (Proventil)Indicat ions:Moderate persistent asthma without complication,COPD, 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) Inhale 1 Vial via nebulizer every 6 hours as needed for Wheezing. J45.40 J44.9 360 mL 11 06/24/2023 4 Discontinue d(Refill) Dulera 200-5 MCG/ACT Inhalation Aerosol (Mometasone-Formot lovely) INHALE 2 PUFFS TWICE DAILY 13 g 11 12/08/2023 4 Discontinue d(Refill) Azithromycin 250 MG Oral Tablet (Zithromax)Indicat ions:Bronchitis, complicated Take 2 tabs by mouth on the first day, then 1 tab daily on days two through five 6 Tablet 01/26/2024 4 Discontinue d(Refill) Cyclobenzaprine HCl 5 MG Oral Tablet (Flexeril) TAKE 1 TABLET BY MOUTH THREE TIMES DAILY NEEDED FOR MUSCLE SPASM 4 Discontinue d(Refill) documented as of this encounter (statuses as of 04/01/2024) Active Problems Problem Noted Date Diagnosed Date [...] as of this encounter (statuses as of 04/01/2024) Resolved Problems Problem Noted Date Diagnosed Date Resolved Date Food insecurity 04/19/2021 08/26/2021 Overview: Per [facility] Protocol Asthma exacerbation 03/30/2015 10/27/20 17 Moderate persistent asthma 11/09/2014 0 03/30/2015 Overview: PFT Pneumonitis 07/24/2014 01/06/2022 Asthma exacerbation 07/24/2014 03/30/20 15 documented as of this encounter (statuses as of 04/01/2024) Immunizations Name Administration Dates Next Due PPD [...] 18 years and over) Not on file 4 Are you (or your family) romina eless [...] Yes 10/12/2017 documented as of this encounter Progress Notes * Myesha Cavanaugh MD - 04/01/2024 11:05 AM EDT ASSESSMENT / PLAN: Poppy Adhikari is a 53 year old female with PMHx spinal stenosis / lumbar radiculopathy / h/o lumbar fusion 2018 / MDD / GERD / asthma / alcohol use in early remission / MGUS / macrocytic anemia / s/p lumbar fusion x 2, most recently 12/25/23 / cigarette smoker / Moderate COPD - here via video for acute Bronchitis, complicated (Primary) - Azithromycin 250 MG Oral Tablet (Zithromax); Take 2 tabs by mouth on the first day, then 1 tab daily on days two through five - predniSONE 20 MG Oral Tablet (Deltasone); Take 2 Tablets by mouth in the morning for 5 days. COPD, 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) - Dulera 200-5 MCG/ACT Inhalation Aerosol (Mometasone-Formoterol); Inhale 2 Puffs by mouth in the morning and 2 Puffs before bedtime. - Albuterol Sulfate (2.5 MG/3ML) 0.083% Inhalation Nebulization Solution (Proventil); Inhale 1 Vialvia nebulizer every 6 hours as needed for Wheezing. J45.40 J44.9 Spasm of muscle - Cyclobenzaprine HCl 5 MG Oral Tablet (Flexeril); TAKE 1 TABLET BY MOUTH THREE TIMES DAILY NEEDED FOR MUSCLE SPASM Moderate persistent asthma without complication - Albuterol Sulfate (2.5 MG/3ML) 0.083% Inhalation Nebulization Solution (Proventil); Inhale 1 Vialvia nebulizer every 6 hours as needed for Wheezing. J45.40 J44.9 Subjective: Poppy Adhikari is a 53 year old female. Chief Complaint Patient presents with Acute Bronchitis Patient location: HOME. I was in a hospital or clinic location. After connecting through [employer],patient was verified with two unique identifiers. 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 Methods to assure confidentiality were taken. Patient acknowledged consent and understanding of pr ivacy and security of the Telemedicine visit. The patient agreed to participate. HPI: she is coughing - progressively worsening - feeling exhausted - used her nebulizer last night and this morning at 3am Last rescue pack used 2 months ago She has started back smoking since stopping for her orthopedic surgery earlier this year She feels that she is getting muscle spasms Patient Active Problem List Diagnosis Fibromyalgia Tobacco use disorder Asthma, moderate persistent Lumbar radiculitis Major depressive disorder with single episode, in full remission (HCC) Gastroesophageal reflux disease without esophagitis History of lumbar fusion Spinal stenosis of lumbar region with neurogenic claudication COPD, 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) Essential (primary) hypertension Severe tobacco dependence in early remission Microcytic anemia Microcytic anemia Sacroiliac joint pain Alcohol use disorder, severe, in early remission (HCC) MGUS (monoclonal gammopathy of unknown significance) Current Outpatient Medications Medication Sig Dispense Refill Azithromycin 250 MG Oral Tablet (Zithromax) Take 2 tabs by mouth on the first day, then 1 tab dailyon days two through five 6 Tablet 0 predniSONE 20 MG Oral Tablet (Deltasone) Take 2 Tablets by mouth in the morning for 5 days. 10 Tablet 0 Dulera 200-5 MCG/ACT Inhalation Aerosol (Mometasone-Formoterol) Inhale 2 Puffs by mouth in the morning and 2 Puffs before bedtime. 13 g 11 Cyclobenzaprine HCl 5 MG Oral Tablet (Flexeril) TAKE 1 TABLET BY MOUTH THREE TIMES DAILY NEEDED FOR MUSCLE SPASM 60 Tablet 0 Albuterol Sulfate (2.5 MG/3ML) 0.083% Inhalation Nebulization Solution (Proventil) Inhale 1 Vial via nebulizer every 6 hours as needed for Wheezing. J45.40 J44.9 360 mL 11 hydrOXYzine HCl 50 MG Oral Tablet Take 1 Tablet by mouth every 6 hours as needed for Itching or Anxiety. 60 Tablet 5 Compressor Nebulizer Inhale via nebulizer. Use as directed. (Patient not taking: Reported on 12/05/2023) 1 Each 1 Pregabalin 150 MG Oral Capsule (Lyrica) Take 1 Capsule by mouth in the morning and 1 Capsule beforebedtime. 60 Capsule 2 Loratadine 10 MG Oral Tablet (Claritin) Take 1 tablet by mouth once daily 90 Tablet 1 FLUoxetine HCl 40 MG Oral Capsule (PROzac) Take 1 capsule by mouth in the morning 90 Capsule 1 Folic Acid 1 MG Oral Tablet Take 1 Tablet by mouth in the morning. 90 Tablet 3 Acetaminophen 500 MG Oral Tablet (Tylenol) Take 2 Tablets by mouth every 6 hours as needed. DULoxetine HCl 60 MG Oral Capsule Delayed Release Particles (Cymbalta) TAKE 1 CAPSULE BY MOUTH ONCEDAILY IN THE MORNING DO NOT CUT, CRUSH, OR CHEW CAPSULE 90 Capsule 3 traZODone HCl 50 MG Oral Tablet (Desyrel) TAKE 1 TABLET BY MOUTH AT BEDTIME 90 Tablet 1 LORazepam 0.5 MG Oral Tablet (Ativan) TAKE 1 TABLET BY MOUTH ONCE DAILY NEEDED FOR ANXIETY 30 Tablet 0 Losartan Potassium 50 MG Oral Tablet (Cozaar) Take 1 Tablet by mouth in the morning. 30 Tablet 5 Albuterol Sulfate HFA 108 (90 Base) MCG/ACT Inhalation Aerosol Solution INHALE 2 PUFFS BY MOUTH EVERY 4 HOURS NEEDED FOR WHEEZING 36 g 1 HYDROcodone-Acetaminophen 7.5-325 MG Oral Tablet Take 1 Tablet by mouth every 12 hours as needed for Pain, Severe. 60 Tablet 0 FLUoxetine HCl 20 MG Oral Capsule (PROzac) Take 1 Capsule by mouth in the morning. Add to 40mg dosefor total daily dose 60mg.. 90 Capsule 1 Omeprazole 20 MG Oral Capsule Delayed Release (PriLOSEC) Take 1 Capsule by mouth in the morning and1 Capsule before bedtime. 60 Capsule 1 amLODIPine Besylate 5 MG Oral Tablet (Norvasc) TAKE 1 TABLET BY MOUTH IN THE MORNING 90 Tablet 1 No current facility-administered medications for this visit. Objective: General: No acute distress. Neuro: Alert Pleasant & interactive. Respiratory: Good inspiratory effort, no labored breathing. HEENT: Conjunctivae appear clear. No swelling noted face or lips. Skin: No rash visible on exposed skin areas, normal coloration & appears dry. Psych: Normal affect. Fluent speech. Myesha Cavanaugh MD [address] [address] documented in this encounter Nursing Notes * Sydnie Craft LPN - 04/01/2024 10:51 AM EDT The patient has been properly identified by confirmation of name and date of . Chief Complaint Patient presents with Acute Bronchitis documented in this encounter Plan of Treatment Upcoming Encounters Date Type Department Care Team (Late st Contact Info) Description 05/14/2024 2:00 PM EDT Imaging Radiology, [address] [id number] 05/22/2024 12:30 PM EDT Telemedicine Psychology [facility], [place] [address] [place] [address] Lurdes Fong, ANGIOGRAPHY NURSE [address] [facility] [place] [address] 09/30/2024 6:20 PM EST Office Visit [facility] [address] [place] [id number] Myesha Cavanaugh MD [address] [place] [address] Scheduled Procedures Name Priority Associated Diagnoses Date/Ti [...] SMARTSET #[id number]) 01/06/2023 01/06/2022, 09/23/2021 COVID-19 Vaccine (1 - season) 2023 DTaP,Tdap,and Td Vaccines (2 - Td or Tdap) 06/20/2023 06/20/2013 Mammogram 01/18/2024 01/17/2023, 05/05/2023, 06/27/2013 *COPD SEVERITY VERIFIED BY PFT 03/24/2024 *CXR OR CT FOR COPD EVER 03/24/2024 *SPIROMETRY ONCE FOR ASTHMA-ADULT 03/24/2024 Influenza Vaccine (FLU shot) (#1) 2024 07/07/2017, [...] this encounter Medical Devices Implanted Type Area Bird Trapper Device Identifier Shelf Expiration Date Model / Serial / Lot Vitoss Bimodal Foam Pack 10cc - [id number] Implanted:Qty : 2 on 10/11/2017 by Rosendo Nathan, DO at [facility] N/A: Spine Lumbar SARAH : SPINE 03/08/2019 / / [id number] Vitoss Bimodal Foam Pack 10cc - [id number] Implanted:Qty : 1 on 10/11/2017 by Rosendo Nathan, DO at [facility] N/A: Spine Lumbar SARAH : SPINE 02/05/2019 / / [id number] Screw Audie Bina 3 Ti Set - [id number] Implanted:Qty : 4 on 10/11/2017 by Rosendo Nathan, DO at [facility] N/A: Spine Lumbar SARAH : SPINE [id number] / / 6.5 X 50 Mm Serrate Screws Implanted:Qty : 2 on 10/11/2017 by Rosendo Nathan DO at [facility] N/A: Spine Lumbar SARAH : SPINE [id number] / / 6.5 X 45 Mm Serrate Screw Implanted:Qty : 2 on 10/11/2017 by Rosendo Nathan DO at [facility] N/A: Spine Lumbar SARAH : SPINE [id number] / / 9 X 23x 6 - 9mm Pl Implanted:Qty : 1 on 10/11/2017 by Rosendo Nathan DO at [facility] N/A: Spine Lumbar SARAH : SPINE [id number] / / Shashank Bina 3 Ti 6x40mm - [id number] Implanted:Qty : 1 on 10/11/2017 by Rosendo Nathan DO at [facility] N/A: Spine Lumbar SARAH : SPINE [id number] / / Shashank Ibna 3 Ti 6x45mm - [id number] Implanted:Qty : 1 on 10/11/2017 by Rosendo Nathan DO at [facility] N/A: Spine Lumbar SARAH : SPINE [id number] / / documented as of this encounter Visit Diagnoses Diagnosis Bronchitis, complicated- Primary Bronchitis, not specified as acute or chronic COPD, 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) Chronic airway obstruction, not elsewhere classified Spasm of muscle Moderate persistent asthma without complication Unspecified asthma documented in this encounter Advance Directives * Full Code (Latest Code Status on File) Date Activated Date Inactivated Comments 10/11/2017 9:23 AM 10/13/2017 10:36 PM This order r eflects the patients wishes and were consensually agreed upon. Care Teams Route Sales Manager Relationship Specialty Start Date End Date Myesha Cavanaugh MD [address], [place] [id number] PCP - General Family Medicine 02/18/22 documented as of this encounter
--- OUTSIDE RECORDS SUMMARY | 2024-04-17 01:40 | External Medical Summary | Summary of Care ---
Author Name Unknown Organization [facility] Address [address] [facility] [address] Phone [phone] Care Team Providers Care Gas Main Fitter Name Role Phone Myesha Cavanaugh MD Primary Care Provid er Reason for Visit * Reason Onset Date Comments FYI 01/11/2024 Encounter Details Date Type Department Care Team (Late st Contact Info) Description 01/11/2024 Telephone [facility] [address] [place] [address] Myesha Cavanaugh MD [address] [place] [address] FYI Allergies Active Allergy Reactions Criticality Noted Date Comments Amoxicillin 01/05/2017 thrush Latex 06/20/2013 Hives, rash and swelling Lisinopril 06/02/2023 COUGH Nickel Rash 12/03/2020 documented as of this encounter (statuses as of 04/11/2024) Medications Medication Sig Dispensed Refills Start Date End Date Status hydrOXYzine HCl 50 MG Oral TabletIndication s:Anxiety,Prurit us Take 1 Tablet by mouth every 6 hours as needed for Itching or Anxiety. 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 Use as directed. 1 Each 1 3 Active Additional Information Patient not taking.Reported on 12/05/2023 Pregabalin 150 MG Oral Capsule (Lyrica)Indicati ons:Spinal stenosis of lumbar region with neurogenic claudication Take 1 Capsule by mouth in the morning and 1 Capsule before bedtime. 60 Capsule 2 4 Active Loratadine 10 MG Oral Tablet (Claritin) Take 1 tablet by mouth once daily 90 Tablet 1 4 Active FLUoxetine HCl 40 MG Oral Capsule (PROzac)Indicati ons:Major depressive disorder with single episode, in full remission (HCC) Take 1 capsule by mouth in the morning 90 Capsule 1 4 Active Folic Acid 1 MG Oral TabletIndication s:Anemia due to folic acid deficiency, unspecified deficiency type Take 1 Tablet by mouth in the morning. 90 Tablet 3 4 Active Acetaminophen 500 MG Oral Tablet (Tylenol) Take 2 Tablets by mouth every 6 hours as needed. Active DULoxetine HCl 60 MG Oral Capsule Delayed Release Particles (Cymbalta)Indica tions:Fibromyalg ia,Major depressive disorder with single episode, in full remission (HCC) TAKE 1 CAPSULE BY MOUTH ONCE DAILY IN THE MORNING DO NOT CUT, CRUSH, OR CHEW CAPSULE 90 Capsule 3 4 Active Spiriva Respimat 2.5 MCG/ACT Inhalation Aerosol Solution (Tiotropium [place] Monohydrate) Inhale 2 Puffs by mouth daily. 12 g 3 2 03/25/20 24 Discontinued(Med ication List Clean Up) Meloxicam 15 MG Oral TabletIndication s:Fibromyalgia,L umbar radiculitis Take 1 Tablet by mouth daily. Take 1-2 tabs daily for pain. 90 Tablet 1 3 03/25/20 24 Discontinued(Med ication List Clean Up) Benzonatate 100 MG Oral CapsuleIndicatio ns:Upper respiratory tract infection, unspecified type,Acute cough Take 1 Capsule by mouth 3 times a day as needed for Cough (may make you sleepy). 15 Capsule 3 03/25/20 24 Discontinued(Med ication List Clean Up) amLODIPine Besylate 5 MG Oral Tablet (Norvasc)Indicat ions:HTN, goal below 140/90 Take 1 Tablet by mouth in the morning. 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 J45.40 J44.9 360 mL 11 3 04/01/20 24 Discontinued(Ref ill) Azithromycin 250 MG Oral Tablet (Zithromax Z-Nabil)Indication s:Protracted URI,Fatigue, unspecified type Take two tablets by mouth on first day, then 1 tablet daily until gone 6 Tablet 3 03/25/20 24 Discontinued(Med ication List Clean Up) Montelukast Sodium 10 MG Oral Tablet (Singulair)Indic ations:Chronic cough Take 1 Tablet by mouth at bedtime. 90 Tablet 3 3 03/25/20 24 Discontinued(Med ication List Clean Up) Ondansetron HCl 4 MG Oral Tablet (Zofran)Indicati ons:Nausea and vomiting, unspecified vomiting type TAKE 1 TABLET BY MOUTH EVERY 8 HOURS NEEDED FOR NAUSEA 20 Tablet 4 03/25/20 24 Discontinued(Med ication List Clean Up) Dulera 200-5 MCG/ACT Inhalation Aerosol (Mometasone-Form oterol) INHALE 2 PUFFS TWICE DAILY 13 g 11 4 04/01/20 24 Discontinued(Ref ill) documented as of this encounter (statuses as of 04/11/2024) Active Problems Problem Noted Date Diagnosed Date [...] as of this encounter (statuses as of 04/11/2024) Resolved Problems Problem Noted Date Diagnosed Date Resolved Date Food insecurity 04/19/2021 08/26/2021 Overview: Per [facility] Protocol Asthma exacerbation 03/30/2015 07/07/20 17 Moderate persistent asthma 11/09/2014 0 03/30/2015 Overview: PFT Pneumonitis 07/24/2014 01/06/2022 Asthma exacerbation 07/24/2014 03/30/20 15 documented as of this encounter (statuses as of 04/11/2024) Immunizations Name Administration Dates Next Due PPD 07/27/2021,07/05/2017 Pneumococcal Polysaccharide PPV23 (Pneumovax) Seasonal Influenza, PF, 6 M & above, IM , (FluLaval or Fluzone) 07/07/2017 07/07/2018 Seasonal Influenza, Split, IIV3, With Preserve, Inj 06/20/2013 TDAP (age 10 and older)(Boostrix) 06/20/2013 documented as of this encounter Social History Tobacco Use Types Packs/Day Years Used Date Smoking Tobacco: Former Cigarettes 0.3 30 Passive Smoke Exposure: Past [...] s 10/25/2023 Does the household have a [facility] income? (Household - for ages [...] encounter Miscellaneous Notes * Telephone Encounter - Juana Orourke OSA - 01/11/2024 10:43 AM EDT Meredith from [facility] calling stating she was suppose to go out to see the patient today and cancelledlast minute saying it wasn't till next week. documented in this encounter Plan of Treatment Upcoming Encounters Date Type Department Care Team (Late st Contact Info) Description 04/22/2024 3:00 PM EDT Office Visit Pharmacy, [facility] [address] [facility] [place] [address] Pharmacist2, [facility] [address] [facility] [place] [address] 05/14/2024 2:00 PM EDT Imaging Radiology, [place] [address] [place] [address] 05/22/2024 12:30 PM EDT Telemedicine Psychology [address] [place] [address] [place] [phone] Lurdes Fong, [facility] [address] [place] [address] 09/30/2024 6:20 PM EST Office Visit Family Practice, [place] [address] [place] [address] Myesha Cavanaugh MD [address] [place] [address] Scheduled Procedures Name Priority Associated Diagnoses Date/Ti [...] 06/20/2013 Mammogram 01/18/2024 01/17/2023, 05/0 05/2023, 06/27/2013 *COPD SEVERITY VERIFIED BY PFT 03/24/2024 [...] Colonoscopy 09/27/2033 09/27/2023 Colorectal Cancer Screening 09/27/2033 Hepatitis C Screening Completed 10/28/2020 HPV (Gardasil) Vaccine Aged Out No lo nger eligible based on patient's age to complete this topic MENINGOCOCCAL (MENACTRA/MENVEO) Aged Out No longer eligible based on patient's age to complete this topic documented as of this encounter Medical Devices Implanted Type Area Livestock Commission Agent Device Identifier Shelf Expiration Date Model / Serial / Lot Vitoss Bimodal Foam Pack 10cc - [id number] Implanted:Qty : 2 on 10/11/2017 by Rosendo Nathan DO at [facility] N/A: Spine Lumbar SARAH : SPINE 03/08/2019 / / [id number] Vitoss Bimodal Foam Pack 10cc - [id number] Implanted:Qty : 1 on 10/11/2017 by Rosendo Nathan DO at [facility] N/A: Spine Lumbar SARAH : SPINE 02/05/2019 / / [id number] Screw Audie Bina 3 Ti Set - [id number] Implanted:Qty : 4 on 10/11/2017 by Rosendo Nathan DO at [facility] N/A: Spine Lumbar SARAH : SPINE [id number] / / 6.5 X 50 Mm Serrate Screws Implanted:Qty : 2 on 10/11/2017 by Rosendo Nathan DO at [facility] N/A: Spine Lumbar SARAH : SPINE [id number] / / 6.5 X 45 Mm Serrate Screw Implanted:Qty : 2 on 10/11/2017 by Rosendo Nathan DO at [facility] N/A: Spine Lumbar SARAH : SPINE [id number] / / 9 X 23x 6 - 9mm Pl Implanted:Qty : 1 on 10/11/2017 by Rosendo Nathan DO at [facility] N/A: Spine Lumbar SARAH : SPINE [id number] / / Shashank Bina 3 Ti 6x40mm - [id number] Implanted:Qty : 1 on 10/11/2017 by Rosendo Nathan DO at [facility] N/A: Spine Lumbar SARAH : SPINE [id number] / / Shashank Bina 3 Ti 6x45mm - [id number] Implanted:Qty : 1 on 10/11/2017 by Rosendo Nathan DO at [facility] N/A: Spine Lumbar SARAH : SPINE [id number] / / documented as of this encounter Advance Directives * Full Code (Latest Code Status on File) Date Activated Date Inactivated Comments 10/11/2017 9:23 AM 10/13/2017 10:36 PM This order r eflects the patients wishes and were consensually agreed upon. Care Teams Gas Main Fitter Relationship Specialty Start Date End Date Myesha Cavanaugh MD [address] [place] [address] PCP - General Family Medicine 02/18/22 documented as of this encounter
--- OUTSIDE RECORDS SUMMARY | 2024-04-17 01:40 | External Medical Summary | Summary of Care ---
Author Name Unknown Organization [facility] Address [address] [facility] [address] Phone [phone] Care Team Providers Care Jailer/Training Officer Name Role Phone Myesha Cavanaugh MD Primary Care Provid er Reason for Visit * Reason Onset Date Comments Medication Pre-auth 03/26/2024 HYDROCODONE- ACETAMIN 7.5-325 Encounter Details Date Type Department Care Team (Late st Contact Info) Description 03/26/2024 Telephone [facility] [address] [place] [address] Myesha Cavanaugh MD [address] [place] [address] Medication Pre-auth (HYDROCODONE-ACETAMIN ... Allergies Active Allergy Reactions Criticality Noted Date [...] Additional Information Patient not taking.Reported on 12/05/2023 Albuterol Sulfate (2.5 MG/3ML) 0.083% Inhalation Nebulization Solution (Proventil)Indica tions:Moderate persistent asthma without complication,COPD , 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) Inhale 1 Vial via nebulizer every 6 hours as needed for Wheezing. J45.40 J44.9 360 mL 11 06/24/2023 Active Additional Information Patient not taking.Reported on 09/26/2023 Pregabalin 150 MG Oral Capsule (Lyrica)Indicatio ns:Spinal [...] mouth every 6 hours as needed. Active Dulera 200-5 MCG/ACT Inhalation Aerosol (Mometasone-Formo terol) INHALE 2 PUFFS TWICE DAILY 13 g 11 12/08/2023 Active DULoxetine HCl 60 MG Oral Capsule [...] FOR WHEEZING 36 g 1 02/16/2024 Active Cyclobenzaprine HCl 5 MG Oral Tablet (Flexeril) TAKE 1 TABLET BY MOUTH THREE TIMES DAILY NEEDED FOR MUSCLE SPASM Active HYDROcodone-Aceta minophen 7.5-325 MG Oral TabletIndications [...] and 1 Capsule before bedtime. 60 Capsule 1 03/25/2024 Active amLODIPine Besylate 5 MG Oral Tablet (Norvasc)Indicati ons:HTN, goal below 140/90 Take 1 Tablet by mouth in the morning. 90 Tablet 3 06/02/2023 03/29/20 24 Discontinued documented as of this encounter [...] encounter Miscellaneous Notes * Telephone Encounter - Myesha Cavanaugh MD - 03/28/2024 4:15 PM EDT Justin Hernandez - I've addended my note to indicate that the pain medication regimen is working - can you help with resubmitting? Also please note I did call pt's pharmacy and leave a message indicating it is alright for her to pay out of pocket for this medication. * Telephone Encounter - Zack Eid MED SONIYA - 03/27/2024 2:38 PM EDT Please advise * Telephone Encounter - Daysi Daugherty CPhT - 03/27/2024 2:04 PM EDT Pt calling into state that she pays out of pocket for her Rx HYDROCODONE- ACETAMIN 7.5-325 , pt is requesting for PCP to call pharmacy in order for pt to receive her Rx. Thank you, Daysi Daugherty Hydraulic Press Operator [facility] 03/27/2024, 2:05 PM * Telephone Encounter - Mary Goddard CPhT - 03/27/2024 11:43 AM EDT Patients insurance would like to inform the office that HYDROCODONE-ACETAMIN 7.5-325 is denied because documentation of medication working was not sent. They will fax this info to the office, please review and resubmit if appropriate. Thank you, Mary Goddard [facility] Potline Monitor II [facility] 03/27/2024,11:43 AM * Telephone Encounter - Aubree Salcedo PHARM Tech - 03/26/2024 11:21 AM EDT Pt calling regarding Hydrocodone-APAP. Pt states she pays out of pocket for med. Advised pt to contact her pharmacy so that they can bill it thru as laguerre. Thank you, Aubree Salcedo, Hydraulic Press Operator [facility] 03/26/2024,11:23 AM * Telephone Encounter - Erika Gomez CPhT - 03/26/2024 11:14 AM EDT Patients insurance would like to inform the office that this medication is denied because it is notcovered under insurance. They will fax this info to the office, please review and resubmit if appropriate. Thank you, Erika Gomez Hydraulic Press Operator [facility] 03/26/2024,11:17 AM * Telephone Encounter - Salma Barksdale LPN - 03/26/2024 9:59 AM EDT Prior auth signed by provider and faxed to [facility]. * Telephone Encounter - Salma Barksdale LPN - 03/26/2024 9:56 AM EDT Paper prior auth filled out and placed on providers desk for signature. * Telephone Encounter - Diya Ray CPhT - 03/26/2024 9:29 AM EDT Patients insurance would like to inform the office that HYDROCODONE-ACETAMIN 7.5-325 is requiring additional information: any supporting clinical documentation. Prior authorization entered in PromptPA at [facility]. [facility]# [id number] Please fax to [phone] before CHASITY. Thank you, Diya Ray Hydraulic Press Operator [facility] 03/26/2024,9:30 AM documented in this encounter Plan of Treatment Upcoming Encounters Date Type Department Care Team (Late st Contact Info) Description 04/01/2024 11:00 AM EDT Telemedicine [place] [address] [place] [address] Myesha Cavanaugh MD [address] [place] [address] 05/14/2024 2:00 PM EDT Imaging Radiology, [place] [address] [place] [address] 05/22/2024 12:30 PM EDT Telemedicine Psychology [place] [address] [place] [address] Lurdes Fong, [facility] [address] [place] [address] 09/30/2024 6:20 PM EST Office Visit [place] [address] [place] [address] Myesha Cavanaugh MD [address] [place], [place] [phone] Scheduled Procedures Name Priority Associated Diagnoses Date/Ti [...] this encounter Medical Devices Implanted Type Area Rebar Bender Device Identifier Shelf Expiration Date Model / Serial / Lot Vitoss Bimodal Foam Pack 10cc - [id number] Implanted:Qty : 2 on 10/11/2017 by Rosendo Nathan, DO at [facility] N/A: Spine Lumbar SARAH : SPINE 03/08/2019 / / [id number] Vitoss Bimodal Foam Pack 10cc - [id number] Implanted:Qty : 1 on 10/11/2017 by Rosendo aNthan, DO at [facility] N/A: Spine Lumbar SARAH : SPINE 02/05/2019 / / [id number] Screw Audie Bina 3 Ti Set - [id number] Implanted:Qty : 4 on 10/11/2017 by Rosendo Nathan DO at [facility] N/A: Spine Lumbar SARAH : SPINE [id number] / / 6.5 X 50 Mm Serrate Screws Implanted:Qty : 2 on 10/11/2017 by Rosendo Nathan, DO at [facility] N/A: Spine Lumbar SARAH : SPINE [id number] / / 6.5 X 45 Mm Serrate Screw Implanted:Qty : 2 on 10/11/2017 by Rosendo Nathan DO at [facility] N/A: Spine Lumbar SARAH : SPINE [id number] / / 9 X 23x 6 - 9mm Pl Implanted:Qty : 1 on 10/11/2017 by Rosendo Nathan DO at [facility] N/A: Spine Lumbar SARAH : SPINE [id number] / / Shashank Bina 3 Ti 6x40mm - [id number] Implanted:Qty : 1 on 10/11/2017 by Rosendo Nathan DO at [facility] N/A: Spine Lumbar SARAH : SPINE [id number] / / Shashank Bina 3 Ti 6x45mm - [id number] Implanted:Qty : 1 on 10/11/2017 by Rosendo Nathan DO at [facility] N/A: Spine Lumbar SARAH : SPINE [id number] / / documented as of this encounter Advance Directives * Full Code (Latest Code Status on File) Date Activated Date Inactivated Comments 10/11/2017 9:23 AM 10/13/2017 10:36 PM This order r eflects the patients wishes and were consensually agreed upon. Care Teams Jailer/Training Officer Relationship Specialty Start Date End Date Myesha Cavanaugh MD [address] [place] [address] PCP - General Family Medicine 02/18/22 documented as of this encounter
--- OUTSIDE RECORDS SUMMARY | 2024-04-17 01:40 | External Medical Summary | Summary of Care ---
Author Name Unknown Organization [facility] Address [address] [facility] [place] [address] Phone [phone] Care Team Providers Care Supervisor Machining Name Role Phone Myesha Cavanaugh MD Primary Care Provid er Reason for Visit * Reason Onset Date Comments Medication Pre-auth 03/26/2024 HYDROCODONE- ACETAMIN 7.5-325 Encounter Details Date Type Department Care Team (Late st Contact Info) Description 03/26/2024 Telephone [facility] [address] [place] [address] Myesha Cavanaugh MD [address] [place] [address] Medication Pre-auth (HYDROCODONE-ACETAMIN ... Allergies [...] receive her Rx. Thank you, Daysi Daugherty Cabinet Mounter [facility] 03/27/2024, 2:05 PM * Telephone Encounter - Mary Goddard CPhT - 03/27/2024 11:43 AM EDT Patients insurance would like to inform the office that HYDROCODONE-ACETAMIN 7.5-325 is denied because documentation of medication working was not sent. They will fax this info to the office, please review and resubmit if appropriate. Thank you, Mary Goddadr [facility] Chart Clerk II [facility] 03/27/2024,11:43 AM * Telephone Encounter - Aubree Salcedo PHARM Tech - 03/26/2024 11:21 AM EDT Pt calling regarding Hydrocodone-APAP. Pt states she pays out of pocket for med. Advised pt to contact her pharmacy so that they can bill it thru as laguerre. Thank you, Aubree Salcedo, Cabinet Mounter [facility] 03/26/2024,11:23 AM * Telephone Encounter - Erika Gomez CPhT - 03/26/2024 11:14 AM EDT Patients insurance would like to inform the office that this medication is denied because it is notcovered under insurance. They will fax this info to the office, please review and resubmit if appropriate. Thank you, Erika Gomez Cabinet Mounter [facility] 03/26/2024,11:17 AM * Telephone Encounter - Salma Barksdale LPN - 03/26/2024 9:59 AM EDT Prior auth signed by provider and faxed to [facility]. * Telephone Encounter - Salma Barksdale LPN - 03/26/2024 9:56 AM EDT Paper prior auth filled out and placed on providers desk for signature. * Telephone Encounter - Diya Ray CPhT - 03/26/2024 9:29 AM EDT Patients insurance would like to inform the office that HYDROCODONE-ACETAMIN 7.5-325 is requiring additional information: any supporting clinical documentation. Prior authorization entered in PromptPA at [facility]. [facility]# [id number] Please fax to [phone] before CHASITY. Thank you, Diya Ray Cabinet Mounter [facility] 03/26/2024,9:30 AM documented in this encounter Plan of Treatment Upcoming Encounters Date Type Department Care Team (Late st Contact Info) Description 04/01/2024 11:00 AM EDT Telemedicine [place] [address] [place] [address] Myesha Cavanaugh MD [address] [place] [address] 05/14/2024 2:00 PM EDT Imaging Radiology, [place] [address] [place] [address] 05/22/2024 12:30 PM EDT Telemedicine Psychology [place] [address] [place] [address] Lurdes Fong, [facility] [address] [place] [address] 09/30/2024 6:20 PM EST Office Visit [place] [address] [place] [address] Myesha Cavanaugh MD [address], [place] [address] Scheduled Procedures Name Priority Associated Diagnoses Date/Ti [...] this encounter Medical Devices Implanted Type Area Rn Recovery Device Identifier Shelf Expiration Date Model / Serial / Lot Vitoss Bimodal Foam Pack 10cc - [id number] Implanted:Qty : 2 on 10/11/2017 by Rosendo Nathan, DO at [facility] N/A: Spine Lumbar SARAH : SPINE 03/08/2019 / / [id number] Vitoss Bimodal Foam Pack 10cc - [id number] Implanted:Qty : 1 on 10/11/2017 by Rosendo Nathan, DO at [facility] N/A: Spine Lumbar SARAH : SPINE 02/05/2019 / / [id number] Screw Audie Bina 3 Ti Set - [id number] Implanted:Qty : 4 on 10/11/2017 by Rosendo Nathan DO at [facility] N/A: Spine Lumbar SARAH : SPINE [id number] / / 6.5 X 50 Mm Serrate Screws Implanted:Qty : 2 on 10/11/2017 by Rosendo Nathan, DO at [facility] N/A: Spine Lumbar SARAH : SPINE [id number] / / 6.5 X 45 Mm Serrate Screw Implanted:Qty : 2 on 10/11/2017 by Rosendo Nathan DO at [facility] N/A: Spine Lumbar SARAH : SPINE [id number] / / 9 X 23x 6 - 9mm Pl Implanted:Qty : 1 on 10/11/2017 by Rosendo Nathan DO at [facility] N/A: Spine Lumbar SARAH : SPINE [id number] / / Shashank Bina 3 Ti 6x40mm - [id number] Implanted:Qty : 1 on 10/11/2017 by Rosendo Nathan DO at [facility] N/A: Spine Lumbar SARAH : SPINE [id number] / / Shashank Bina 3 Ti 6x45mm - [id number] Implanted:Qty : 1 on 10/11/2017 by Rosendo Nathan DO at [facility] N/A: Spine Lumbar SARAH : SPINE [id number] / / documented as of this encounter Advance Directives * Full Code (Latest Code Status on File) Date Activated Date Inactivated Comments 10/11/2017 9:23 AM 10/13/2017 10:36 PM This order r eflects the patients wishes and were consensually agreed upon. Care Teams Supervisor Machining Relationship Specialty Start Date End Date Myesha Cavanaugh MD [address] [place] [address] PCP - General Family Medicine 02/18/22 documented as of this encounter
--- OUTSIDE RECORDS SUMMARY | 2024-04-17 01:40 | External Medical Summary | Summary of Care ---
Author Name Unknown Organization [facility] Address [address] [place] [address] Phone [phone] Care Team Providers Care Section Housekeeper Name Role Phone Myesha Cavanaugh MD Primary Care Provid er Reason for Visit * Reason Onset Date Comments Referral 03/29/2024 [facility] Pain Encounter Details Date Type Department Care Team (Late st Contact Info) Description 03/29/2024 Telephone Pharmacy, [facility] [place] [address] [place] [address] Pharmacist2, [facility] [address] [place] [address] Referral ([facility] Pain) Allergies Active Allergy Reactions Criticality Noted Date Comments Amoxicillin 01/05/2017 thrush Latex 06/20/2013 Hives, rash and swelling Lisinopril 06/02/2023 COUGH Nickel Rash 12/03/2020 documented as of this encounter (statuses as of 03/29/2024) Medications Medication Sig Dispensed Refills Start Date End Date Status hydrOXYzine HCl 50 MG Oral TabletIndications:A nxiety,Pruritus Take 1 Tablet by mouth every 6 hours as needed for Itching or Anxiety. 60 Tablet 5 05/02/2023 Active Compressor NebulizerIndication s:Moderate persistent asthma without complication,COPD, 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 Use as directed. 1 Each 1 05/26/2023 Active Additional Information Patient not taking.Reported on 12/05/2023 Albuterol Sulfate (2.5 MG/3ML) 0.083% Inhalation Nebulization Solution (Proventil)Indicati ons:Moderate persistent asthma without complication,COPD, 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) Inhale 1 Vial via nebulizer every 6 hours as needed for Wheezing. J45.40 J44.9 360 mL 11 06/24/2023 Active Additional Information Patient not taking.Reported on 09/26/2023 Pregabalin 150 MG Oral Capsule (Lyrica)Indications :Spinal stenosis of lumbar region with neurogenic claudication Take 1 Capsule by mouth in the morning and 1 Capsule before bedtime. 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 90 Tablet 3 11/06/2023 Active Acetaminophen 500 MG Oral Tablet (Tylenol) Take 2 Tablets by mouth every 6 hours as needed. Active Dulera 200-5 MCG/ACT Inhalation Aerosol (Mometasone-Formote rol) INHALE 2 PUFFS TWICE DAILY 13 g 11 12/08/2023 Active DULoxetine HCl 60 MG Oral Capsule Delayed Release Particles (Cymbalta)Indicatio ns:Fibromyalgia,Kartik or depressive disorder with single episode, in full remission (HCC) TAKE 1 CAPSULE BY MOUTH ONCE DAILY IN THE MORNING DO NOT CUT, CRUSH, OR CHEW CAPSULE 90 Capsule 3 12/18/2023 Active traZODone HCl 50 MG Oral Tablet (Desyrel)Indication s:Major depressive disorder with single episode, in full remission (HCC) TAKE 1 TABLET BY MOUTH AT BEDTIME 90 Tablet 1 01/17/2024 Active LORazepam 0.5 MG Oral Tablet (Ativan)Indications :Anxiety TAKE 1 TABLET BY MOUTH ONCE DAILY NEEDED FOR ANXIETY 30 Tablet 01/18/2024 Active Losartan Potassium 50 MG Oral Tablet (Cozaar) Take 1 Tablet by mouth in the morning. 30 Tablet 5 01/18/2024 Active Albuterol Sulfate HFA 108 (90 Base) MCG/ACT Inhalation Aerosol SolutionIndications :Exacerbation of asthma, unspecified asthma severity, unspecified whether persistent INHALE 2 PUFFS BY MOUTH EVERY 4 HOURS NEEDED FOR WHEEZING 36 g 1 02/16/2024 Active Cyclobenzaprine HCl 5 MG Oral Tablet (Flexeril) TAKE 1 TABLET BY MOUTH THREE TIMES DAILY NEEDED FOR MUSCLE SPASM Active HYDROcodone-Acetami nophen 7.5-325 MG Oral TabletIndications:S aguilar stenosis of lumbar region with neurogenic claudication,S/P lumbar fusion,Medical marijuana use,History of lumbar fusion,Lumbar radiculitis,Sacroil iac joint pain Take 1 Tablet by mouth every 12 hours as needed for Pain, Severe. 60 Tablet 03/25/2024 Active FLUoxetine HCl 20 MG Oral Capsule (PROzac)Indications :Anxiety,History of alcohol use disorder,Current severe episode of major depressive disorder without psychotic features, unspecified whether recurrent (HCC),Major depressive disorder with single episode, in full remission (HCC) Take 1 Capsule by mouth in the morning. Add to 40mg dose for total daily dose 60mg.. 90 Capsule 1 03/25/2024 Active Omeprazole 20 MG Oral Capsule Delayed Release (PriLOSEC)Indicatio ns:Epigastric pain,Gallbladder sludge,Gastroesopha geal reflux disease without esophagitis Take 1 Capsule by mouth in the morning and 1 Capsule before bedtime. 60 Capsule 1 03/25/2024 Active amLODIPine Besylate 5 MG Oral Tablet (Norvasc)Indication s:HTN, goal below 140/90 TAKE 1 TABLET BY MOUTH IN THE MORNING 90 Tablet 1 03/29/2024 Active documented as of this encounter (statuses as of 03/29/2024) Active Problems Problem Noted Date Diagnosed Date [...] as of this encounter (statuses as of 03/29/2024) Resolved Problems Problem Noted Date Diagnosed Date Resolved Date Food insecurity 04/19/2021 08/26/2021 Overview: Per [facility] Protocol Asthma exacerbation 03/30/2015 07/07/20 17 Moderate persistent asthma 11/09/2014 0 03/30/2015 Overview: PFT Pneumonitis 07/24/2014 01/06/2022 Asthma exacerbation 07/24/2014 03/30/20 15 documented as of this encounter (statuses as of 03/29/2024) Immunizations Name Administration Dates Next Due PPD [...] encounter Miscellaneous Notes * Telephone Encounter - Tramaine Isaac RPh - 03/29/2024 12:04 PM EDT Referral received and reviewed. Reason for referral: Pain Please Schedule patient. Referring provider: Myesha Cavanaugh MD Initial appt length: 60 min Appointment type indicated: Inperson Required Preferred Clinic for Appointment: [facility] Tramaine Isaac RPh 03/29/2024, 12:09 PM * Telephone Encounter - Nataliya Batista PHARM Tech - 03/29/2024 11:50 AM EDT Pharmacist Medication Therapy Management: Minimum frequency patient should be seen in person for medication management: as appropriate per clinical condition and patient status By my signature, I understand that my patient Poppy Adhikari will have her medication therapy managed by the [facility] ([facility]) per established policies, procedures, and protocols. I also certify that this referral may serve as an initiation of service for the management of drug therapy in the above noted patient. [facility] providers will be responsible for scheduling patient visits, obtaining appropriate laboratory studies, and adjusting medication management therapy per patient's need, in addition to those roles spelled out in the clinic policy, procedures, and drug management protocols. I understand that the service provided by the [facility] Clinic is voluntary and have informed patient that they can refuse the service at their discretion. I am aware that the [facility] Clinic will provide me with a copy of the patient encounter via my [employer]. I authorize the [facility] Clinic to carry out these activities on my behalf. I consider this program to be a necessary part of the patient's medical care. Myesha Cavanaugh MD Status History Encounter View Encounter Order Questions Question Answer Referral Priority Within 30 days (routine) Where should this appointment be scheduled? [facility] Referring Provider Role: Primary Care Reason for Referral: Pain Pain Diagnosis: Back pain Pain Treatment Options: Opioids and/or Non-opioids Does patient have a signed JULISSA? This is required for patients on opioids Yes Has patient completed a Urine Drug Screen in the past 3 months? This is required for patients on opioids Yes Pain Treatment Goal: Med Optimization documented in this encounter Plan of Treatment Upcoming Encounters Date Type Department Care Team (Late st Contact Info) Description 05/14/2024 2:00 PM EDT Imaging Radiology, [place] [address] [place] [address] 05/22/2024 12:30 PM EDT [facility] [address] [place] [phone] Lurdes Fong, ASSISTANT OPERATIONS MANAGER [address] [place] [address] 09/30/2024 6:20 PM EST Office Visit [facility] [address] [place] [address] Myesha Cavanaugh MD [address] [place] [address] Scheduled Procedures Name Priority Associated Diagnoses Date/Ti [...] FOR COPD 12/04/2024 12/05/2023 GFR 12/30/2024 12/31/2023, 04/, 11/28/2023, Additional history exists Depression Monitoring 01/15/2025 [...] encounter Medical Devices Implanted Type Area Rn Outpatient Surgery Device Identifier Shelf Expiration Date Model / Serial / Lot Vitoss Bimodal Foam Pack 10cc - [id number] Implanted:Qty : 2 on 10/11/2017 by Rosendo Nathan, at [facility] N/A: Spine Lumbar SARAH : SPINE 03/08/2019 [id number] / / [id number] Vitoss Bimodal Foam Pack 10cc - [id number] Implanted:Qty : 1 on 10/11/2017 by Rosendo Nathan DO at [facility] N/A: Spine Lumbar SARAH : SPINE 02/05/[id number] / / [id number] Screw Audie Bina 3 Ti Set - [id number] Implanted:Qty : 4 on 10/11/2017 by Rosendo Nathan DO at [facility] N/A: Spine Lumbar SARAH : SPINE [id number] / / 6.5 X 50 Mm Serrate Screws Implanted:Qty : 2 on 10/11/2017 by Rosendo Nathan DO at [facility] N/A: Spine Lumbar SARAH : SPINE [id number] / / 6.5 X 45 Mm Serrate Screw Implanted:Qty : 2 on 10/11/2017 by Rosendo Nathan DO at [facility] N/A: Spine Lumbar SARAH : SPINE [id number] / / 9 X 23x 6 - 9mm Pl Implanted:Qty : 1 on 10/11/2017 by Rosendo Nathan DO at [facility] N/A: Spine Lumbar SARAH : SPINE [id number] / / Shashank Bina 3 Ti 6x40mm - [id number] Implanted:Qty : 1 on 10/11/2017 by Rosendo Nathan DO at [facility] N/A: Spine Lumbar SARAH : SPINE [id number] / / Shashank Bina 3 Ti 6x45mm - [id number] Implanted:Qty : 1 on 10/11/2017 by Rosendo Nathan DO at [facility] N/A: Spine Lumbar SARAH : SPINE [id number] / / documented as of this encounter Advance Directives * Full Code (Latest Code Status on File) Date Activated Date Inactivated Comments 10/11/2017 9:23 AM 10/13/2017 10:36 PM This order r eflects the patients wishes and were consensually agreed upon. Care Teams Section Housekeeper Relationship Specialty Start Date End Date Myesha Cavanaugh MD [address] [place] [address] PCP - General Family Medicine 02/18/22 documented as of this encounter
--- OUTSIDE RECORDS SUMMARY | 2024-04-17 01:40 | External Medical Summary | Summary of Care ---
Author Name Unknown Organization [facility] Address [address] [place] [address] Phone [phone] Care Team Providers Care Bag Patcher Name Role Phone Myesha Cavanaugh MD Primary Care Provid er Encounter Details Date Type Department Care Team (Late st Contact Info) Description 01/09/2024 Telephone OR [facility], [facility] [address] [place] [phone] Erika Rios DO [address] [place] [address] Allergies Active Allergy Reactions Criticality Noted Date Comments Amoxicillin 01/05/2017 thrush Latex 06/20/2013 Hives, rash and swelling Lisinopril 06/02/2023 COUGH Nickel Rash 12/03/2020 documented as of this encounter (statuses as of 04/09/2024) Medications Medication Sig Dispensed Refills Start Date [...] on 12/05/2023 Pregabalin 150 MG Oral Capsule (Lyrica)Indications :Spinal [...] CHEW CAPSULE 90 Capsule 3 12/18/2023 Active documented as of this encounter (statuses as of 04/09/2024) Active Problems Problem Noted Date Diagnosed Date [...] as of this encounter (statuses as of 04/09/2024) Resolved Problems Problem Noted Date Diagnosed Date Resolved Date Food insecurity 04/19/2021 08/26/2021 Overview: Per [facility] Protocol Asthma exacerbation 03/30/2015 07/07/20 17 Moderate persistent asthma 11/09/2014 0 03/30/2015 Overview: PFT Pneumonitis 07/24/2014 01/06/2022 Asthma exacerbation 07/24/2014 03/30/20 15 documented as of this encounter (statuses as of 04/09/2024) Immunizations Name Administration Dates Next Due PPD [...] encounter Miscellaneous Notes * Telephone Encounter - Venessa Gilmore RN - 01/09/2024 10:47 AM EDT This patient is scheduled for EGD/Colonoscopy on 01-18-24 and had spinal fusion surgery on 12-25-23. Patient has just arrived home from rehab facility/ this procedure will need postponed and will need clearance from surgeon prior to procedure /patient agreeable and is aware she will be called by gastro scheduling department to reschedule documented in this encounter Plan of Treatment Upcoming Encounters Date Type Department Care Team (Late st Contact Info) Description 04/22/2024 3:00 PM EDT Office Visit Pharmacy, [facility] [address] [facility] [place] [address] Pharmacist2, [facility] [address] [facility] [address] [place] [address] 05/14/2024 2:00 PM EDT Imaging Radiology, [place] [address] [place] [address] 05/22/2024 12:30 PM EDT Telemedicine Psychology [facility] [address] [place] [phone] Lurdes Fong, [facility] [address] [place] [address] 09/30/2024 6:20 PM EST Office Visit [facility] [address] [place] [address] Myesha Cavanaugh MD [address] [place] [address] Scheduled Procedures Name Priority Associated Diagnoses Date/Ti [...] 07/16/2013 DISCUSS TOBACCO CESSATION (REFER TO SMARTSET #7731) 01/06/2023 01/06/2022, 09/23/2021 COVID-19 Vaccine (1 - [...] this encounter Medical Devices Implanted Type Area Sulfate Drier Machine Operator Device Identifier Shelf Expiration Date Model / Serial / Lot Vitoss Bimodal Foam Pack 10cc - [id number] Implanted:Qty : 2 on 10/11/2017 by Rosendo Nathan DO at [facility] N/A: Spine Lumbar SARAH : SPINE 03/08/2019 / / [id number] Vitoss Bimodal Foam Pack 10cc - [id number] Implanted:Qty : 1 on 10/11/2017 by Rosendo Nathan DO at [facility] N/A: Spine Lumbar SARAH : SPINE 02/05/2019 / / [id number] Screw Audie Bina 3 Ti Set - [id number] Implanted:Qty : 4 on 10/11/2017 by Rosendo Nathan DO at [facility] N/A: Spine Lumbar SARAH : SPINE [id number] / / 6.5 X 50 Mm Serrate Screws Implanted:Qty : 2 on 10/11/2017 by Rosendo Nathan DO at [facility] N/A: Spine Lumbar SARAH : SPINE [id number] / / 6.5 X 45 Mm Serrate Screw Implanted:Qty : 2 on 10/11/2017 by Rosendo Nathan DO at [facility] N/A: Spine Lumbar SARAH : SPINE [id number] / / 9 X 23x 6 - 9mm Pl Implanted:Qty : 1 on 10/11/2017 by Rosendo Nathan DO at [facility] N/A: Spine Lumbar SARAH : SPINE [id number] / / Shashank Bina 3 Ti 6x40mm - [id number] Implanted:Qty : 1 on 10/11/2017 by Rosendo Nathan DO at [facility] N/A: Spine Lumbar SARAH : SPINE [id number] / / Shashank Bina 3 Ti 6x45mm - [id number] Implanted:Qty : 1 on 10/11/2017 by Rosendo Nathan DO at [facility] N/A: Spine Lumbar SARAH : SPINE [id number] / / documented as of this encounter Advance Directives * Full Code (Latest Code Status on File) Date Activated Date Inactivated Comments 10/11/2017 9:23 AM 10/13/2017 10:36 PM This order r eflects the patients wishes and were consensually agreed upon. Care Teams Bag Patcher Relationship Specialty Start Date End Date Myesha Cavanaugh MD [address] [place] [address] PCP - General Family Medicine 02/18/22 documented as of this encounter
--- OUTSIDE RECORDS SUMMARY | 2024-04-17 01:41 | External Medical Summary | Summary of Care ---
Author Name Unknown Organization [facility] Address [address] [facility] [address] [address] Phone [phone] Care Team Providers Care Carpentry Instructor Name Role Phone Myesha Cavanaugh MD Primary Care Provid er Reason for Visit * Reason Onset Date Comments Medication Pre-auth 03/26/2024 HYDROCODONE- ACETAMIN 7.5-325 Encounter Details Date Type Department Care Team (Late st Contact Info) Description 03/26/2024 Telephone [facility] [address] [place] [address] Myesha Cavanaugh MD [address] [place] [address] Medication Pre-auth (HYDROCODONE-ACETAMIN ... Allergies Active Allergy Reactions Criticality Noted Date Comments Amoxicillin 01/05/2017 thrush Latex 06/20/2013 Hives, rash and swelling Lisinopril 06/02/2023 COUGH Nickel Rash 12/03/2020 documented as of this encounter (statuses as of 03/28/2024) Medications Medication Sig Dispensed Refills Start Date End Date Status hydrOXYzine HCl 50 MG Oral TabletIndications:A nxiety,Pruritus Take 1 Tablet by mouth every 6 hours as needed for Itching or Anxiety. 60 Tablet 5 05/02/2023 Active Compressor NebulizerIndication s:Moderate persistent asthma without complication,COPD, 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 Use as directed. 1 Each 1 05/26/2023 Active Additional Information Patient not taking.Reported on 12/05/2023 amLODIPine Besylate 5 MG Oral Tablet (Norvasc)Indication s:HTN, goal below 140/90 Take 1 Tablet by mouth in the morning. 90 Tablet 3 06/02/2023 Active Albuterol Sulfate (2.5 MG/3ML) 0.083% Inhalation [...] before bedtime. 60 Capsule 1 03/25/2024 Active documented as of this encounter (statuses as of 03/28/2024) Active Problems Problem Noted Date Diagnosed Date [...] as of this encounter (statuses as of 03/28/2024) Resolved Problems Problem Noted Date Diagnosed Date Resolved Date Food insecurity 04/19/2021 08/26/2021 Overview: Per [facility] Protocol Asthma exacerbation 03/30/2015 07/07/20 17 Moderate persistent asthma 11/09/2014 0 03/30/2015 Overview: PFT Pneumonitis 07/24/2014 01/06/2022 Asthma exacerbation 07/24/2014 03/30/20 15 documented as of this encounter (statuses as of 03/28/2024) Immunizations Name Administration Dates Next Due PPD [...] 10/25/2023 Does the household have a re lar source of income? (Household - for ages [...] * Telephone Encounter - Zack Eid MED ASSIST - 03/27/2024 2:38 PM EDT Please advise * Telephone Encounter - Daysi Daugherty CPhT - 03/27/2024 2:04 PM EDT Pt calling into state that she pays out of pocket for her Rx HYDROCODONE- ACETAMIN 7.5-325 , pt is requesting for PCP to call pharmacy in order for pt to receive her Rx. Thank you, Daysi Daugherty Wireless Consultant [facility] 03/27/2024, 2:05 PM * Telephone Encounter - Mary Goddard CPhT - 03/27/2024 11:43 AM EDT Patients insurance would like to inform the office that HYDROCODONE-ACETAMIN 7.5-325 is denied because documentation of medication working was not sent. They will fax this info to the office, please review and resubmit if appropriate. Thank you, Mary Goddard CPhT Logistics/Shipper II [facility] 03/27/2024,11:43 AM * Telephone Encounter - Aubree Salcedo chiropractic physician - 03/26/2024 11:21 AM EDT Pt calling regarding Hydrocodone-APAP. Pt states she pays out of pocket for med. Advised pt to contact her pharmacy so that they can bill it thru as [place]. Thank you, Aubree Salcedo, Wireless Consultant [facility] 03/26/2024,11:23 AM * Telephone Encounter - Erika Gomez CPhT - 03/26/2024 11:14 AM EDT Patients insurance would like to inform the office that this medication is denied because it is notcovered under insurance. They will fax this info to the office, please review and resubmit if appropriate. Thank you, Erika Gomez Wireless Consultant [facility] 03/26/2024,11:17 AM * Telephone Encounter - Salma Barksdale LPN - 03/26/2024 9:59 AM EDT Prior auth signed by provider and faxed to [facility]. * Telephone Encounter - Salma Barksdale LPN - 03/26/2024 9:56 AM EDT Paper prior auth filled out and placed on providers desk for signature. * Telephone Encounter - Diya Ray CPhT - 03/26/2024 9:29 AM EDT Patients insurance would like to inform the office that HYDROCODONE-ACETAMIN 7.5-325 is requiring additional information: any supporting clinical documentation. Prior authorization entered in [employer] at [facility]. [facility]# [id number] Please fax to [phone] before [facility]. Thank you, Diya Ray Wireless Consultant [facility] 03/26/2024,9:30 AM documented in this encounter Plan of Treatment Upcoming Encounters Date Type Department Care Team (Late st Contact Info) Description 05/14/2024 2:00 PM EDT Imaging [facility], [place] [address] [place] [address] 05/22/2024 12:30 PM EDT [facility] [address] [place] [address] Lurdes Fong, [facility] [address] [place] [address] 09/30/2024 6:20 PM EST Office Visit [facility] [address] [place] [address] Myesha Cavanaugh MD [address] [place] [address] Scheduled Procedures Name Priority Associated Diagnoses Date/Ti [...] this encounter Medical Devices Implanted Type Area Configuration Analyst Device Identifier Shelf Expiration Date Model / Serial / Lot Vitoss Bimodal Foam Pack 10cc - [id number] Implanted:Qty : 2 on 10/11/2017 by Rosendo Nathan DO at [facility] N/A: Spine Lumbar SARAH : SPINE 03/08/2019 / / [id number] Vitoss Bimodal Foam Pack 10cc - [id number] Implanted:Qty : 1 on 10/11/2017 by Rosendo Nathan DO at [facility] N/A: Spine Lumbar SARAH : SPINE 02/05/2019 / / [id number] Screw Audie Bina 3 Ti Set - [id number] Implanted:Qty : 4 on 10/11/2017 by Rosendo Nathan DO at [facility] N/A: Spine Lumbar SARAH : SPINE [id number] / / 6.5 X 50 Mm Serrate Screws Implanted:Qty : 2 on 10/11/2017 by Rosendo Nathan DO at [facility] N/A: Spine Lumbar SARAH : SPINE [id number] / / 6.5 X 45 Mm Serrate Screw Implanted:Qty : 2 on 10/11/2017 by Rosendo Nathan DO at [facility] N/A: Spine Lumbar SARAH : SPINE [id number] / / 9 X 23x 6 - 9mm Pl Implanted:Qty : 1 on 10/11/2017 by Rosendo Nathan DO at [facility] N/A: Spine Lumbar SARAH : SPINE [id number] / / Shashank Bina 3 Ti 6x40mm - [id number] Implanted:Qty : 1 on 10/11/2017 by Rosendo Nathan DO at [facility] N/A: Spine Lumbar SARAH : SPINE [id number] / / Shashank Bina 3 Ti 6x45mm - [id number] Implanted:Qty : 1 on 10/11/2017 by Rosendo Nathan DO at [facility] N/A: Spine Lumbar SARAH : SPINE [id number] / / documented as of this encounter Advance Directives * Full Code (Latest Code Status on File) Date Activated Date Inactivated Comments 10/11/2017 9:23 AM 10/13/2017 10:36 PM This order r eflects the patients wishes and were consensually agreed upon. Care Teams Carpentry Instructor Relationship Specialty Start Date End Date Myesha Cavanaugh MD [address] [place] [address] PCP - General Family Medicine 02/18/22 documented as of this encounter
--- OUTSIDE RECORDS SUMMARY | 2024-04-17 01:41 | External Medical Summary | Summary of Care ---
Author Name Unknown Organization [facility] Address [address] [place] [address] Phone [phone] Care Team Providers Care Commissions Coordinator Name Role Phone Myesha Cavanaugh MD Primary Care Provid er Reason for Referral * Evaluate & Treat - Unlimited Visits (Within 30 days (routine)) - Pending Review Specialty Diagnoses / Procedures Referred By Jun garay Referred To Contact Psychiatry Diagnoses Anxiety History of alcohol use disorder Current severe episode of major depressive disorder without psychotic features, unspecified whether recurrent ([facility]) Myesha Cavanaugh MD [address] [place] [address] Referral ID Status Reason Start Date Expiration Date Visits Requested Visits Authorized [id number] Pending Review Specialty Services Required 03/25/[phone] Question Answer Referral Priority Within 30 days (routine) Where should this appointment be scheduled? [facility] Is this referral for medication management? Yes Reason for Referral Depression Comments Depression and anxiety * Medication Prior Authorization - Pending Review Specialty Diagnoses / Procedures Referred By Jun garay Referred To Contact Diagnoses Spinal stenosis of lumbar region with neurogenic claudication S/P lumbar fusion Medical marijuana use History of lumbar fusion Lumbar radiculitis Sacroiliac joint pain Myesha Cavanaugh MD [address] [place] [address] Referral ID Status Reason Start Date Expiration Date V isits Requested Visits Authorized [id number] Pending Review 999 999 * Evaluate & Treat - Unlimited Visits (Within 30 days (routine)) - Pending Review Specialty Diagnoses / Procedures Referred By Contac t Referred To Contact Pharmacist / Pharmacy Diagnoses Spinal stenosis of lumbar region with neurogenic claudication S/P lumbar fusion Myesha Cavanaugh MD [address] [place] [address] Referral ID Status Reason Start Date Expiration Date Visits Requested Visits Authorized [id number] Pending Review Specialty Services Required 03/25/2024 09/21/2024 99 99 Question Answer Referral Priority Within 30 days (routine) Where should this appointment be scheduled? [facility] Referring Provider Role: Primary Care Reason for Referral: Pain Pain Diagnosis: Back pain Pain Treatment Options: Opioids and/or Non-opioids Does patient have a signed JULISSA? This is required for patients on opioids Yes Has patient completed a Urine Drug Screen in the past 3 months? This is required for patients on opioids Yes Pain Treatment Goal: Med Optimization Comments Pharmacist Medication Therapy Management: Minimum frequency patient should be seen in person for medication management: as appropriate per clinical condition and patient status By my signature, I understand that my patient Poppy Adhikari will have her medication therapy managed by the [facility] Medication Therapy Disease Management [facility] ([facility]) per established policies, procedures, and protocols. I also certify that this referral may serve as an initiation of service for the management of drug therapy in the above noted patient. [facility] providers will be responsible for scheduling patient visits, obtaining appropriate laboratory studies, and adjusting medication management therapy per patient's need, in addition to those roles spelled out in the clinic policy, procedures, and drug management protocols. I understand that the service provided by the [facility] is voluntary and have informed patient that they can refuse the service at their discretion. I am aware that the [facility] will provide me with a copy of the patient encounter via my [employer]. I authorize the [facility] to carry out these activities on my behalf. I consider this program to be a necessary part of the patient's medical care. Myesha Cavanaugh MD Reason for Visit * Reason Comments Follow Up Patient is here toda y for a follow up. Patient would like to discuss medication changes, bloating, and pain management. Encounter Details Date Type Department Care Team (Late st Contact Info) Description 03/25/2024 6:20 PM EDT Office Visit [facility] [address] [place] [facility] [place] [address] Myesha Cavanaugh MD [address] [facility], [place] [address] Spinal stenosis of lumbar region with neurogenic claudication*; S/P lumbar fusion; Medical marijuana use; History of lumbar fusion; Lumbar radiculitis; Sacroiliac joint pain; Anxiety; Epigastric pain; Gallbladder sludge; History of alcohol use disorder; Current severe episode of major depressive disorder without psychotic features, unspecified whether recurrent (HCC); Major depressive disorder with single episode, in full remission (HCC); Nausea and vomiting, unspecified vomiting type; Gastroesophageal reflux disease without esophagitis Allergies Active Allergy Reactions Criticality Noted Date [...] 12/05/2023 amLODIPine Besylate 5 MG Oral Tablet (Norvasc)Indicatio ns:HTN, goal below 140/90 Take 1 Tablet by mouth in the morning. 90 Tablet 3 06/02/2023 Active Albuterol Sulfate (2.5 MG/3ML) 0.083% Inhalation Nebulization Solution (Proventil)Indicat ions:Moderate persistent asthma without complication,COPD, 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) Inhale 1 Vial via nebulizer every 6 hours as needed for Wheezing. J45.40 J44.9 360 mL 11 06/24/2023 Active Additional Information Patient not taking.Reported on 09/26/2023 Pregabalin 150 MG Oral Capsule (Lyrica)Indication s:Spinal [...] needed. Active Dulera 200-5 MCG/ACT Inhalation Aerosol (Mometasone-Formot lovely) [...] TIMES DAILY NEEDED FOR MUSCLE SPASM Active HYDROcodone-Acetam inophen 7.5-325 MG Oral TabletIndications: [...] before bedtime. 60 Capsule 1 03/25/2024 Active Spiriva Respimat 2.5 MCG/ACT Inhalation Aerosol Solution (Tiotropium Hammond Monohydrate) Inhale 2 Puffs by mouth daily. 12 g 3 09/23/2021 4 Discontinue d(Medicatio n List Clean Up) Meloxicam 15 MG Oral TabletIndications: Fibromyalgia,Lumba r radiculitis Take 1 Tablet by mouth daily. Take 1-2 tabs daily for pain. 90 Tablet 1 05/02/2023 4 Discontinue d(Medicatio n List Clean Up) Benzonatate 100 MG Oral CapsuleIndications :Upper respiratory tract infection, unspecified type,Acute cough Take 1 Capsule by mouth 3 times a day as needed for Cough (may make you sleepy). 15 Capsule 06/01/2023 4 Discontinue d(Medicatio n List Clean Up) Azithromycin 250 MG Oral Tablet (Zithromax Z-Nabil)Indications: Protracted URI,Fatigue, unspecified type Take two tablets by mouth on first day, then 1 tablet daily until gone 6 Tablet 06/27/2023 4 Discontinue d(Medicatio n List Clean Up) Montelukast Sodium 10 MG Oral Tablet (Singulair)Indicat ions:Chronic cough Take 1 Tablet by mouth at bedtime. 90 Tablet 3 09/01/2023 4 Discontinue d(Medicatio n List Clean Up) Ondansetron HCl 4 MG Oral Tablet (Zofran)Indication s:Nausea and vomiting, unspecified vomiting type TAKE 1 TABLET BY MOUTH EVERY 8 HOURS NEEDED FOR NAUSEA 20 Tablet 11/09/2023 4 Discontinue d(Medicatio n List Clean Up) Omeprazole 20 MG Oral Capsule Delayed Release (PriLOSEC)Indicati ons:Nausea and vomiting, unspecified vomiting type,Gastroesophag eal reflux disease without esophagitis Take 1 Capsule by mouth in the morning. 30 Capsule 5 01/18/2024 4 Discontinue d(Refill) HYDROcodone-Acetam inophen 7.5-325 MG Oral TabletIndications: History of lumbar fusion,Spinal stenosis of lumbar region with neurogenic claudication,Lumba r radiculitis,Sacroi liac joint pain Take 1 Tablet by mouth daily as needed for Pain, Severe. 30 Tablet 02/23/2024 4 Discontinue d(Medicatio n List Clean Up) documented as of this encounter (statuses as [...] Passive Smoke Exposure: Past Smokeless Tobacco: Never Tobacco Cessation:Ready to Q uit: Not Asked; Counseling Given: Not Answered Comments:smoke 2-4 cig a day Alcohol Use [...] on file documented as of this encounter Last Filed Vital Signs Vital Sign Reading Time Taken Comments Blood Pressure 112/66 03/25/2024 6:06 PM EDT Pulse 102 03/25/2024 6:06 PM EDT Temperature 37.3 C (99.2 F) 03/25/2024 6:06 PM ED T Respiratory Rate 16 03/25/2024 6:06 PM EDT Oxygen Saturation 97% 03/25/2024 6:06 PM EDT Inhaled Oxygen Concentration - - Weight 54 kg (119 lb) 03/25/2024 6:06 PM EDT Height 162.6 cm (5' 4") 03/25/2024 6:06 PM EDT Body Mass Index 20.43 03/25/2024 6:06 PM EDT documented in this encounter Functional Status Functional Status Response [...] Progress Notes * Myesha Cavanaugh MD - 03/25/2024 6:29 PM EDT Images from the original note were not included. ASSESSMENT / PLAN: Poppy Adhikari is a 53 year old female with PMHx spinal stenosis / lumbar radiculopathy / h/o lumbar fusion 2018 / MDD / GERD / asthma / cigarette use in early remission / alcohol use in early remission / MGUS / macrocytic anemia / s/p lumbar fusion x 2, most recently 12/25/23 - here for follow up LBP / s/p L fusion Cont lyrica, percocet refill sent - this medication regimen adequately treats her pain and should be continued. JULISSA signed Urine tox submitted Pt presented medical marijuana card as well Epigastric pain / post prandial Recent upper endoscopy w evidence of sludge Incr omeprazole 20mg bid, repeat abd us If no improvement will need eval by GI Depression Not well controlled despite 40mg fluoxetine, 60mg cymbalta, 50mg trazodone Recommend incr fluoxetine back to 60mg (which worked well for her before) Refer to Psychiatry Follow Up: Return in about 6 months (around 09/25/2024). Spinal stenosis of lumbar region with neurogenic claudication (Primary) - TOXICOLOGY, URINE SCREEN W/ CONFIRMATION; Future; Expected date: 03/25/2024 - PHARMACIST MEDS THERAPY MGMT REFERRAL OP - TOXICOLOGY, URINE SCREEN W/ CONFIRMATION - HYDROcodone-Acetaminophen 7.5-325 MG Oral Tablet; Take 1 Tablet by mouth every 12 hours as neededfor Pain, Severe. S/P lumbar fusion - TOXICOLOGY, URINE SCREEN W/ CONFIRMATION; Future; Expected date: 03/25/2024 - PHARMACIST MEDS THERAPY MGMT REFERRAL OP - TOXICOLOGY, URINE SCREEN W/ CONFIRMATION - HYDROcodone-Acetaminophen 7.5-325 MG Oral Tablet; Take 1 Tablet by mouth every 12 hours as neededfor Pain, Severe. Medical marijuana use - HYDROcodone-Acetaminophen 7.5-325 MG Oral Tablet; Take 1 Tablet by mouth every 12 hours as neededfor Pain, Severe. History of lumbar fusion - HYDROcodone-Acetaminophen 7.5-325 MG Oral Tablet; Take 1 Tablet by mouth every 12 hours as neededfor Pain, Severe. Lumbar radiculitis - HYDROcodone-Acetaminophen 7.5-325 MG Oral Tablet; Take 1 Tablet by mouth every 12 hours as neededfor Pain, Severe. Sacroiliac joint pain - HYDROcodone-Acetaminophen 7.5-325 MG Oral Tablet; Take 1 Tablet by mouth every 12 hours as neededfor Pain, Severe. Anxiety - ADULT/PEDS PSYCHIATRY REFERRAL OP - FLUoxetine HCl 20 MG Oral Capsule (PROzac); Take 1 Capsule by mouth in the morning. Add to 40mg dose for total daily dose 60mg.. Epigastric pain - US ABDOMEN LIMITED; Future; Expected date: 03/25/2024 - Omeprazole 20 MG Oral Capsule Delayed Release (PriLOSEC); Take 1 Capsule by mouth in the morning and 1 Capsule before bedtime. Gallbladder sludge - US ABDOMEN LIMITED; Future; Expected date: 03/25/2024 - Omeprazole 20 MG Oral Capsule Delayed Release (PriLOSEC); Take 1 Capsule by mouth in the morning and 1 Capsule before bedtime. History of alcohol use disorder - ADULT/PEDS PSYCHIATRY REFERRAL OP - FLUoxetine HCl 20 MG Oral Capsule (PROzac); Take 1 Capsule by mouth in the morning. Add to 40mg dose for total daily dose 60mg.. Current severe episode of major depressive disorder without psychotic features, unspecified whetherrecurrent (HCC) - ADULT/PEDS PSYCHIATRY REFERRAL OP - FLUoxetine HCl 20 MG Oral Capsule (PROzac); Take 1 Capsule by mouth in the morning. Add to 40mg dose for total daily dose 60mg.. Major depressive disorder with single episode, in full remission (HCC) - FLUoxetine HCl 20 MG Oral Capsule (PROzac); Take 1 Capsule by mouth in the morning. Add to 40mg dose for total daily dose 60mg.. Nausea and vomiting, unspecified vomiting type Gastroesophageal reflux disease without esophagitis - Omeprazole 20 MG Oral Capsule Delayed Release (PriLOSEC); Take 1 Capsule by mouth in the morning and 1 Capsule before bedtime. Follow Up: Return in about 6 months (around 09/25/2024). If needed, prefers contact by: Ok to leave message on phone: SUBJECTIVE: Nursing Notes: Salma Barksdale LPN 03/25/241811 Signed The patient has been properly identified by confirmation of name and date of . Chief Complaint Patient presents with Follow Up Patient is here today for a follow up. Patient would like to discuss medication changes, bloating, and pain management. HPI: Poppy Adhikari is a 53 year old female. Here for recheck. Upper abd bloating and pain Denies nausea 6-8 weeks Regular bowel movements Currently taking 20mg omeprazole daily 02/27/24 - Orthopedics Rosendo Obando DO Seen for 6 week post-op L3-4 Decompression supplemented by a L3-5 instrumented posterolateral fusion using allograft, autograft and a bilateral pedicle screw/shashank construct, insertion of interbody fusion device with revision of existing L4-5 instrumentation on 12/25/23. "continues to endorse having fairly significant paraspinal lumbosacral back pain " Ordered x rays, and ordered PT XR SPINE LUMBAR 2 OR 3 VIEWS 02/14/24 HISTORY: Reason for exam: Postsurgical evaluation. Lumbar fusion 6 weeks ago. COMPARISON: Prior lumbar spine radiographs of 12/26/2023 FINDINGS: AP and lateral views of the lumbar spine: There are 5 cob-air-vocigfr lumbar vertebral bodies. There is a normal lumbar lordosis. Again notedis a stable grade 1 anterolisthesis of L4 in respect L5. Stable postsurgical changes noted with paired pedicle screws and stabilizing rods at L3, L4, and L5. Disc prosthesis are noted within the L3-L4 and L4-L5 disc spaces. There is no evidence of hardware complication. Laminectomy defects and lateral bony fusion changes are noted at these levels. The vertebral bodies are of normal height and mineralization. Mild L2-L3 degenerative disc disease is noted. There is no lytic or blastic bone lesion. The sacroiliac joints are within normal limits. The visualized portion of the bowel gas pattern is unremarkable. Reviewed sources 1- Patient Active Problem List Diagnosis Fibromyalgia Tobacco [...] Alcohol use disorder, severe, in early remission ([facility]) MGUS (monoclonal gammopathy of unknown significance) Current Outpatient Medications Medication Sig Dispense Refill hydrOXYzine HCl 50 MG Oral Tablet Take 1 Tablet by mouth every 6 hours as needed for Itching or Anxiety. 60 Tablet 5 amLODIPine Besylate 5 MG Oral Tablet (Norvasc) Take 1 Tablet by mouth in the morning. 90 Tablet 3 Pregabalin 150 MG Oral Capsule (Lyrica) Take [...] by mouth every 6 hours as needed. Dulera 200-5 MCG/ACT Inhalation Aerosol (Mometasone-Formoterol) INHALE 2 PUFFS TWICE DAILY 13 g 11 DULoxetine HCl 60 MG Oral Capsule Delayed [...] HOURS NEEDED FOR WHEEZING 36 g 1 Cyclobenzaprine HCl 5 MG Oral Tablet (Flexeril) TAKE 1 TABLET BY MOUTH THREE TIMES DAILY NEEDED FOR MUSCLE SPASM HYDROcodone-Acetaminophen 7.5-325 MG Oral Tablet Take 1 [...] and1 Capsule before bedtime. 60 Capsule 1 Compressor Nebulizer Inhale via nebulizer. Use as directed. (Patient not taking: Reported on 12/05/2023) 1 Each 1 Albuterol Sulfate (2.5 MG/3ML) 0.083% Inhalation Nebulization Solution (Proventil) Inhale 1 Vial via nebulizer every 6 hours as needed for Wheezing. J45.40 J44.9 (Patient not taking: Reported on 09/26/2023) 360 mL 11 No current facility-administered medications for this visit. OBJECTIVE: BP 112/66 | Pulse 102 | Temp 37.3 C (99.2 F) (Tympanic) | Resp 16 | Ht 1.626 m (5' 4") | Wt 54 kg (119 lb) | LMP 07/11/2013 | SpO2 97% | BMI 20.43 kg/m | BSA 1.56 m Vitals reviewed and is normotensive / afebrile / and not tachycardic General: No acute distress. Neuro: Alert Pleasant & interactive. Respiratory: Good inspiratory effort, no labored breathing. CTAB CV: RRR no M R G Abd: soft +tender in RUQ, normoactive bs no hsm HEENT: Conjunctivae appear clear. No swelling noted face or lips. Skin: No rash visible on exposed skin areas, normal coloration & appears dry. Psych: Normal affect. Fluent speech. I spent a total of 40-54 minutes (exact time 40 mins) on the date of service in preparation, delivery, and documentation of the care provided to Poppy Adhikari excluding any time spent in the performance of separately billed services. Myesha Cavanaugh MD [place] [address] [facility] [phone] There are no Patient Instructions on file for this visit. documented in this encounter Nursing Notes * Salma Barksdale LPN - 03/25/2024 6:12 PM EDT The patient has been properly identified by confirmation of name and date of . Chief Complaint Patient presents with Follow Up Patient is here today for a follow up. Patient would like to discuss medication changes, bloating, and pain management. documented in this encounter Miscellaneous Notes * Result Encounter Note - Myesha Cavanaugh MD - 03/26/2024 5:29 PM EDT Pt has medical marijuana card on file. documented in this encounter Plan of Treatment Upcoming Encounters Date Type Department Care Team (Late st Contact Info) Description 05/14/2024 2:00 PM EDT Imaging [facility], [place] [address] [place] [address] 05/22/2024 12:30 PM EDT Telemedicine Psychology [place] [address] [place] [phone] Lurdes Fong, CLINICAL MICROBIOLOGIST [address] [place] [address] 09/30/2024 6:20 PM EST Office Visit [place] [address] [place] [id number] Myesha Cavanaugh MD [address] [place] [address] Scheduled Orders Name Type Priority Associated Diagnoses Orde r Schedule US ABDOMEN LIMITED Medical Imaging Routine Epigastric pain Gallbladder sludge Expected: 03/25/2024 (Approximate), Expires: 04/25/2025 Scheduled Procedures Name Priority Associated Diagnoses Date/Ti me COLONOSCOPY FLEXIBLE PROXIMAL DIAGNOSTIC Recall Nausea & vomiting Unintentional weight loss ESOPHAGOGASTRODUODENOSCOPY ( EGD), FLEXIBLE, TRANSORAL, DIAGNOSTIC Recall Nausea & vomiting Unintentional weight loss Scheduled Referrals Name Type Priority Associated Diagnoses Orde r Schedule PHARMACIST MEDS THERAPY MGMT REFERRAL OP Referral Within 30 days (routine) Spinal stenosis of lumbar region with neurogenic claudication S/P lumbar fusion Ordered: 03/25/2024 ADULT/PEDS PSYCHIATRY REFERRAL OP Referral Within 30 days (routine) Anxiety History of alcohol use disorder Current severe episode of major depressive disorder without psychotic features, unspecified whether recurrent (HCC) Ordered: 03/25/2024 Health Maintenance Due Date Last Done Comments [...] FOR COPD 12/04/2024 12/05/2023 GFR 12/30/2024 12/31/2023, 12/11, 11/28/2023, Additional history exists Depression Monitoring 01/15/2025 [...] this encounter Medical Devices Implanted Type Area Manager Of Transportation Device Identifier Shelf Expiration Date Model / Serial / Lot Vitoss Bimodal Foam Pack 10cc - [id number] Implanted:Qty : 2 on 10/11/2017 by Rosendo Nathan DO at [facility] N/A: Spine Lumbar SARAH : SPINE 03/08/2019 / / [id number] Vitoss Bimodal Foam Pack 10cc - [id number] Implanted:Qty : 1 on 10/11/2017 by Rosnedo Nathan DO at [facility] N/A: Spine Lumbar SARAH : SPINE 02/05/2019 / / [id number] Screw Audie Bina 3 Ti Set - [id number] Implanted:Qty : 4 on 10/11/2017 by Rosendo Nathan DO at [facility] N/A: Spine Lumbar SARAH : SPINE [id number] / / 6.5 X 50 Mm Serrate Screws Implanted:Qty : 2 on 10/11/2017 by Rosendo Nathan DO at [facility] N/A: Spine Lumbar SARAH : SPINE [id number] / / 6.5 X 45 Mm Serrate Screw Implanted:Qty : 2 on 10/11/2017 by Rosendo Nathan DO at [facility] N/A: Spine Lumbar SARAH : SPINE [id number] / / 9 X 23x 6 - 9mm Pl Implanted:Qty : 1 on 10/11/2017 by Rosendo Nathan, at [facility] N/A: Spine Lumbar SARAH : SPINE [id number] / / Shashank Bina 3 Ti 6x40mm - [id number] Implanted:Qty : 1 on 10/11/2017 by Rosendo Nathan DO at [facility] N/A: Spine Lumbar SARAH : SPINE [id number] / / Shashank Bina 3 Ti 6x45mm - [id number] Implanted:Qty : 1 on 10/11/2017 by Rosendo Nathan, at [facility] N/A: Spine Lumbar SARAH : SPINE [id number] / / documented as of this encounter Procedures Procedure Name Priority Date/Time Associated Diagnosis Comments TOXICOLOGY, URINESCREEN W/ CONFIRMATION Routine 03/25/2024 6:47 PM EDT Spinal stenosis of lumbar region with neurogenic claudication S/P lumbar fusion THC METABOLITE, URINE CONFIRMATION Routine 03/25/2024 6:47 PM EDT Spinal stenosis of lumbar region with neurogenic claudication S/P lumbar fusion documented in this encounter Results * (ABNORMAL) THC METABOLITE, URINE CONFIRMATION (03/25/2024 6:47 PM EDT) [facility] Methodology LC-MS/MS 03/28/2024 12:30 PM EDT LAB[facility]ATORY [facility] THC-COOH Confirmation, U 120(H) Negative ng/mL 03/28/2024 12:30 PM EDT [facility]ATORY [facility] Urine Urine specimen / Unknown Non-blood Collection / Unknown 03/25/2024 6:47 PM EDT 03/25/2024 6:47 PM EDT [facility] LAB[facility]ATORY [facility] - 03/28/2024 12:30 PM EDT Cutoff Concentration: Drug Level THC-COOH 10 ng/mL This test was developed and its performance characteristics determined by [facility]. It has not been cleared or approved by the [place] Food and Drug Administration. Myesha Cavanaugh MD LAB URINE OR DERABLES LABORATORY [facility] [address] [place] [address] * (ABNORMAL) TOXICOLOGY, URINESCREEN W/ CONFIRMATION (03/25/2024 6:47 PM EDT) [facility] Amphetamines Screen, U Negative Negative 03/26/2024 3:37 PM EDT [facility] Benzodiazepines Screen, U Negative Negative 03/26/2024 3:37 PM EDT [facility] Cannabinoids Screen, U Positive(A) Negative 03/26/2024 3:37 PM EDT [facility] Cocaine Metabolite Screen, U Negative Negative 03/26/2024 3:37 PM EDT [facility] Fentanyl Screen, U Negative Negative 2023 3:37 PM EDT [facility] Hydrocodone Screen, U Negative Negative 03/26/2024 3:37 PM EDT [facility] Methadone Metabolite Screen, U Negative Negative 03/26/2024 3:37 PM EDT [facility] Morphine/Codeine Screen, U Negative Negative 03/26/2024 3:37 PM EDT [facility] Oxycodone Screen, U Negative Negative 03/26/2024 3:37 PM EDT [facility] Urine Urine specimen / Unknown Non-blood Collection / Unknown 03/25/2024 6:47 PM EDT 03/25/2024 6:47 PM EDT Narrative [facility]ATORY [facility] - 03/26/2024 3:37 PM EDT Cutoff Concentrations: Drug Level Amphetamines 500 ng/mL Benzodiazepines 100 ng/mL Cannabinoids 50 ng/mL Cocaine Metabolite 150 ng/mL Fentanyl 1 ng/mL Hydrocodone / Hydromorphone 300 ng/mL Methadone Metabolite 100 ng/mL Morphine / Codeine 300 ng/mL Oxycodone / Oxymorphone 100 ng/mL Screening results are presumptive and can only be used for medical purposes. Positive screening results are reflexed to confirmatory testing. Myesha Cavanaugh MD LAB URINE OR DERABLES LAB[facility]ATORY [facility] [address] [place] [address] documented in this encounter Visit Diagnoses Diagnosis Spinal stenosis of lumbar region with neurogenic claudication- Primary Spinal stenosis, lumbar region, with neurogenic claudication S/P lumbar fusion Arthrodesis status Medical marijuana use Encounter for long-term (current) use of other medications History of lumbar fusion Lumbar radiculitis Thoracic or lumbosacral neuritis or radiculitis, unspecified Sacroiliac joint pain Disorders of sacrum Anxiety Anxiety state, unspecified Epigastric pain Abdominal pain, epigastric Gallbladder sludge Other specified disorder of gallbladder History of alcohol use disorder Current severe episode of major depressive disorder without psychotic features, unspecified whether recurrent (HCC) Major depressive disorder with single episode, in full remission (HCC) Nausea and vomiting, unspecified vomiting type Gastroesophageal reflux disease without esophagitis Esophageal reflux documented in this encounter Advance Directives * Full Code (Latest Code Status on File) Date Activated Date Inactivated Comments 10/11/2017 9:23 AM 10/13/2017 10:36 PM This order r eflects the patients wishes and were consensually agreed upon. Care Teams Commissions Coordinator Relationship Specialty Start Date End Date Myesha Cavanaugh MD [address] [place] [address] PCP - General Family Medicine 02/18/22 documented as of this encounter
--- OUTSIDE RECORDS SUMMARY | 2024-04-17 01:41 | External Medical Summary | Summary of Care ---
Author Name Unknown Organization [facility] Address [address] [facility] [place] [address] Phone [phone] Care Team Providers Care Forestry Biology Specialist Name Role Phone Myesha Cavanaugh MD Primary Care Provid er Reason for Visit * Reason Onset Date Comments Medication Pre-auth 03/26/2024 HYDROCODONE- ACETAMIN 7.5-325 Encounter Details Date Type Department Care Team (Late st Contact Info) Description 03/26/2024 Telephone [facility] [address] [place] [address] Myesha Cavanaugh MD [address] [place] [address] Medication Pre-auth (HYDROCODONE-ACETAMIN ... Allergies Active Allergy Reactions Criticality Noted Date Comments Amoxicillin 01/05/2017 thrush Latex 06/20/2013 Hives, rash and swelling Lisinopril 06/02/2023 COUGH Nickel Rash 12/03/2020 documented as of this encounter (statuses as of 03/26/2024) Medications Medication Sig Dispensed Refills Start Date [...] as of this encounter (statuses as of 03/26/2024) Active Problems Problem Noted Date Diagnosed Date [...] as of this encounter (statuses as of 03/26/2024) Resolved Problems Problem Noted Date Diagnosed Date Resolved Date Food insecurity 04/19/2021 08/26/2021 Overview: Per [facility] Protocol Asthma exacerbation 03/30/2015 07/07/20 17 Moderate persistent asthma 11/09/2014 0 03/30/2015 Overview: PFT Pneumonitis 07/24/2014 01/06/2022 Asthma exacerbation 07/24/2014 03/30/20 15 documented as of this encounter (statuses as of 03/26/2024) Immunizations Name Administration Dates Next Due PPD [...] encounter Miscellaneous Notes * Telephone Encounter - Aubree Salcedo PHARM Tech - 03/26/2024 11:21 AM EDT Pt calling regarding Hydrocodone-APAP. Pt states she pays out of pocket for med. Advised pt to contact her pharmacy so that they can bill it thru as lag[facility]re. Thank you, Aubree Salcedo, Education Coordinator [facility] ([facility]) 03/26/2024,11:23 AM * Telephone Encounter - Erika Gomez CPhT - 03/26/2024 11:14 AM EDT Patients insurance would like to inform the office that this medication is denied because it is notcovered under insurance. They will fax this info to the office, please review and resubmit if appropriate. Thank you, Erika Gomez Education Coordinator [facility] ([facility]) 03/26/2024,11:17 AM * Telephone Encounter - Salma Barksdale LPN - 03/26/2024 9:59 AM EDT Prior auth signed by provider and faxed to [facility]. * Telephone Encounter - Salma Barksdale LPN - 03/26/2024 9:56 AM EDT Paper prior auth filled out and placed on providers desk for signature. * Telephone Encounter - Diya Ray CPhT - 03/26/2024 9:29 AM EDT Patients insurance would like to inform the office that HYDROCODONE-ACETAMIN 7.5-325 is requiring additional information: any supporting clinical documentation. Prior authorization entered in PromptPA at [facility]. [facility]# [id number] Please fax to [phone] before [facility]. Thank you, Diya Ray Education Coordinator [facility] 03/26/2024,9:30 AM documented in this encounter Plan of Treatment Upcoming Encounters Date Type Department Care Team (Late st Contact Info) Description 05/14/2024 2:00 PM EDT [facility] [address] [place] [address] 05/22/2024 12:30 PM EDT Telemedicine Psychology [facility] [address] [place] [address] Lurdes Fong, [facility] [address] [place] [address] 09/30/2024 6:20 PM EST Office Visit [facility] [address] [place] [address] Myesha Cavanaugh MD [address] [place] [address] Scheduled Procedures Name Priority Associated Diagnoses Date/Ti [...] this encounter Medical Devices Implanted Type Area Wellness Coach Device Identifier Shelf Expiration Date Model / Serial / Lot Vitoss Bimodal Foam Pack 10cc - [id number] Implanted:Qty : 2 on 10/11/2017 by Rosendo Nathan DO at [facility] N/A: Spine Lumbar SARAH : SPINE 03/08/2019 / / [id number] Vitoss Bimodal Foam Pack 10cc - [id number] Implanted:Qty : 1 on 10/11/2017 by Rosendo Nathan DO at [facility] N/A: Spine Lumbar SARAH : SPINE 02/05/2019 / / [id number] Screw Audie Bina 3 Ti Set - [id number] Implanted:Qty : 4 on 10/11/2017 by Rosendo Nathan DO at [facility] N/A: Spine Lumbar SARAH : SPINE [id number] / / 6.5 X 50 Mm Serrate Screws Implanted:Qty : 2 on 10/11/2017 by Rosendo Nathan DO at [facility] N/A: Spine Lumbar SARAH : SPINE [id number] / / 6.5 X 45 Mm Serrate Screw Implanted:Qty : 2 on 10/11/2017 by Rosendo Nathan DO at [facility] N/A: Spine Lumbar SARAH : SPINE [id number] / / 9 X 23x 6 - 9mm Pl Implanted:Qty : 1 on 10/11/2017 by Rosendo Nathan DO at [facility] N/A: Spine Lumbar SARAH : SPINE [id number] / / Shashank Bina 3 Ti 6x40mm - [id number] Implanted:Qty : 1 on 10/11/2017 by Rosendo Nathan DO at [facility] N/A: Spine Lumbar SARAH : SPINE [id number] / / Shashank Bina 3 Ti 6x45mm - [id number] Implanted:Qty : 1 on 10/11/2017 by Rosendo Nathan DO at [facility] N/A: Spine Lumbar SARAH : SPINE [id number] / / documented as of this encounter Advance Directives * Full Code (Latest Code Status on File) Date Activated Date Inactivated Comments 10/11/2017 9:23 AM 10/13/2017 10:36 PM This order r eflects the patients wishes and were consensually agreed upon. Care Teams Forestry Biology Specialist Relationship Specialty Start Date End Date Myesha Cavanaugh MD [address] [place] [phone] PCP - General Family Medicine 02/18/22 documented as of this encounter
--- OUTSIDE RECORDS SUMMARY | 2024-04-17 01:41 | External Medical Summary | Summary of Care ---
Author Name Unknown Organization [facility] Address [address] [place] [facility] [place] [address] Phone [phone] Care Team Providers Care Value Stream Coach Name Role Phone Myesha Cavanaugh MD Primary Care Provid er Reason for Visit * Reason Onset Date Comments Medication Pre-auth 03/26/2024 HYDROCODONE- ACETAMIN 7.5-325 Encounter Details Date Type Department Care Team (Late st Contact Info) Description 03/26/2024 Telephone [facility] [address] [place] [address] Myesha Cavanaugh MD [address] [place] [address] Medication Pre-auth (HYDROCODONE-ACETAMIN ... Allergies [...] thru as [facility]. Thank you, Aubree Salcedo, Senior Market Research Analyst [facility] ([facility]) 03/26/2024,11:23 AM * Telephone Encounter - Erika Gomez CPhT - 03/26/2024 11:14 AM EDT Patients insurance would like to inform the office that this medication is denied because it is notcovered under insurance. They will fax this info to the office, please review and resubmit if appropriate. Thank you, Erika Gomez Senior Market Research Analyst [facility] ([facility]) 03/26/2024,11:17 AM * Telephone Encounter - Salma Barksdale LPN - 03/26/2024 9:59 AM EDT Prior auth signed by provider and faxed to [facility]. * Telephone Encounter - Salma Barksdale LPN - 03/26/2024 9:56 AM EDT Paper prior auth filled out and placed on providers desk for signature. * Telephone Encounter - Diya Ray CPhT - 03/26/2024 9:29 AM EDT Patients insurance would like to inform the office that HYDROCODONE-ACETAMIN 7.5-325 is requiring additional information: any supporting clinical documentation. Prior authorization entered in PromptPA at [facility]. [facility]# [id number] Please fax to [phone] before [facility]. Thank you, Diya Ray Senior Market Research Analyst [facility] 03/26/2024,9:30 AM documented in this encounter Plan of Treatment Upcoming Encounters Date Type Department Care Team (Late st Contact Info) Description 05/14/2024 2:00 PM EDT [facility] [address] [place] [address] 05/22/2024 12:30 PM EDT Telemedicine Psychology [facility] [address] [place] [address] Lurdes Fong, [facility] [address] [place] [address] 09/30/2024 6:20 PM EST Office Visit [facility] [address] [place] [address] Myesha Cavanaugh MD [address] [place] [address] Scheduled Procedures Name Priority Associated Diagnoses Date/Ti [...] this encounter Medical Devices Implanted Type Area Quality Lead Device Identifier Shelf Expiration Date Model / Serial / Lot Vitoss Bimodal Foam Pack 10cc - [id number] Implanted:Qty : 2 on 10/11/2017 by Rosendo Nathan DO at [facility] N/A: Spine Lumbar SARAH : SPINE 03/08/2019 / / [id number] Vitoss Bimodal Foam Pack 10cc - [id number] Implanted:Qty : 1 on 10/11/2017 by Rosendo Nathan DO at [facility] N/A: Spine Lumbar SARAH : SPINE 02/05/2019 / / [id number] Screw Audie Bina 3 Ti Set - [id number] Implanted:Qty : 4 on 10/11/2017 by Rosendo Nathan DO at [facility] N/A: Spine Lumbar SARAH : SPINE [id number] / / 6.5 X 50 Mm Serrate Screws Implanted:Qty : 2 on 10/11/2017 by Rosendo Nathan DO at [facility] N/A: Spine Lumbar SARAH : SPINE [id number] / / 6.5 X 45 Mm Serrate Screw Implanted:Qty : 2 on 10/11/2017 by Rosendo Nathan DO at [facility] N/A: Spine Lumbar SARAH : SPINE [id number] / / 9 X 23x 6 - 9mm Pl Implanted:Qty : 1 on 10/11/2017 by Rosendo Nathan DO at [facility] N/A: Spine Lumbar SARAH : SPINE [id number] / / Shashank Bina 3 Ti 6x40mm - [id number] Implanted:Qty : 1 on 10/11/2017 by Rosendo Nathan DO at [facility] N/A: Spine Lumbar SARAH : SPINE [id number] / / Shashank Bina 3 Ti 6x45mm - [id number] Implanted:Qty : 1 on 10/11/2017 by Rosendo Nathan DO at [facility] N/A: Spine Lumbar SARAH : SPINE [id number] / / documented as of this encounter Advance Directives * Full Code (Latest Code Status on File) Date Activated Date Inactivated Comments 10/11/2017 9:23 AM 10/13/2017 10:36 PM This order r eflects the patients wishes and were consensually agreed upon. Care Teams Value Stream Coach Relationship Specialty Start Date End Date Myesha Cavanaugh MD [address] [place] [phone] PCP - General Family Medicine 02/18/22 documented as of this encounter
--- OUTSIDE RECORDS SUMMARY | 2024-04-17 01:41 | External Medical Summary | Summary of Care ---
Author Name Unknown Organization [facility] Address [address] [place] [address] Phone [phone] Care Team Providers Care Foot Setter Name Role Phone Myesha Cavanaugh MD Primary Care Provid er Reason for Referral * Evaluate & Treat - Unlimited Visits (Within 30 days (routine)) - Pending Review Specialty Diagnoses / Procedures Referred By Jun garay Referred To Contact Psychiatry Diagnoses Anxiety History of alcohol use disorder Current severe episode of major depressive disorder without psychotic features, unspecified whether recurrent ([facility]) Myesha Cavanaugh MD [address] [place] [address] Referral ID Status Reason Start Date Expiration Date Visits Requested Visits Authorized [id number] Pending Review Specialty Services Required 03/25/2024 999 [...] joint pain Myesha Cavanaugh MD [address] [place] [address] Referral ID Status Reason Start Date Expiration Date V isits Requested Visits Authorized [id number] Pending Review 999 999 * Evaluate & Treat - Unlimited Visits (Within 30 days (routine)) - Pending Review Specialty Diagnoses / Procedures Referred By Contac t Referred To Contact Pharmacist / Pharmacy Diagnoses Spinal stenosis of lumbar region with neurogenic claudication S/P lumbar fusion Myesha Cavanaugh MD [address] [place] [address] Referral ID Status Reason Start Date Expiration Date Visits Requested Visits Authorized [id number] Pending Review Specialty Services Required 03/25/2024 09/21/2024 99 99 Question Answer Referral Priority Within 30 days (routine) Where should this appointment be scheduled? [facility] Referring Provider Role: Primary Care Reason for [...] have her medication therapy managed by the [facility] Medication Therapy [facility] ([facility]) per established policies, procedures, and protocols. I also certify that this referral may serve as an initiation of service for the management of drug therapy in the above noted patient. [facility] providers will be responsible for scheduling patient visits, obtaining appropriate laboratory studies, and adjusting medication management therapy per patient's need, in addition to those roles spelled out in the clinic policy, procedures, and drug management protocols. I understand that the service provided by the [facility] is voluntary and have informed patient that they can refuse the service at their discretion. I am aware that the [facility] will provide me with a copy of the patient encounter via my [employer]. I authorize the [facility] to carry out these activities on [...] Description 03/25/2024 6:20 PM EDT Office Visit [facility] [address] [place] [address] Myesha Cavanaugh MD [address], [place] [address] Spinal stenosis of lumbar region with neurogenic [...] Respimat 2.5 MCG/ACT Inhalation Aerosol Solution (Tiotropium [place]ier Monohydrate) Inhale 2 Puffs by mouth daily. [...] as of this encounter Progress Notes * Myseha Cavanaugh MD - 03/25/2024 6:29 PM EDT [...] L fusion Cont lyrica, percocet refill sent JULISSA signed Urine tox submitted Pt presented [...] of the lumbar spine: There are 5 tqi-[id number] lumbar vertebral bodies. There is a normal [...] of separately billed services. Myesha Cavanaugh MD [address] [address] There are no Patient Instructions on file [...] and pain management. documented in this encounter Plan of Treatment Upcoming Encounters Date Type Department Care Team (Late st Contact Info) Description 05/14/2024 2:00 PM EDT Imaging Radiology, [place] [address] [place] [address] 05/22/2024 12:30 PM EDT Telemedicine Psychology [facility] [address] [place] [phone] Lurdes Fong, [facility] [address] [place] [address] 09/30/2024 6:20 PM EST Office Visit [facility] [address] [place] [phone] Myesha Cavanaugh MD [address] [place] [address] Pending Results Name Type Priority Associated Diagnoses Date /Time TOXICOLOGY, URINESCREEN W/ CONFIRMATION Lab Routine Spinal stenosis of lumbar region with neurogenic claudication S/P lumbar fusion 03/25/2024 6:47 PM EDT Scheduled Orders Name Type Priority Associated Diagnoses Orde r Schedule TOXICOLOGY, URINESCREEN W/ CONFIRMATION Lab Routine Spinal stenosis of lumbar region with neurogenic claudication S/P lumbar fusion Expected: 03/25/2024 (Approximate), Expires: 03/25/2025 US ABDOMEN LIMITED Medical Imaging Routine Epigastric [...] FOR COPD 12/04/2024 12/05/2023 GFR 12/30/2024 12/31/2023, /, 11/28/2023, Additional history exists Depression Monitoring 01/15/2025 [...] this encounter Medical Devices Implanted Type Area Flight Service Agent Device Identifier Shelf Expiration Date Model / Serial / Lot Vitoss Bimodal Foam Pack 10cc - [id number] Implanted:Qty : 2 on 10/11/2017 by Rosendo Nathan DO at [facility] N/A: Spine Lumbar SARAH : SPINE 03/08/2019 / / [id number] Vitoss Bimodal Foam Pack 10cc - [id number] Implanted:Qty : 1 on 10/11/2017 by Rosendo Nathan DO at [facility] N/A: Spine Lumbar SARAH : SPINE 02/05/2019 / / [id number] Screw Audie Bina 3 Ti Set - [id number] Implanted:Qty : 4 on 10/11/2017 by Rosendo Nathan DO at [facility] N/A: Spine Lumbar SARAH : SPINE [id number] / / 6.5 X 50 Mm Serrate Screws Implanted:Qty : 2 on 10/11/2017 by Rosendo Nathan DO at [facility] N/A: Spine Lumbar SARAH : SPINE [id number] / / 6.5 X 45 Mm Serrate Screw Implanted:Qty : 2 on 10/11/2017 by Rosendo Nathan, DO at [facility] N/A: Spine Lumbar SARAH : SPINE [id number] / / 9 X 23x 6 - 9mm Pl Implanted:Qty : 1 on 10/11/2017 by Rosendo Nathan, DO at [facility] N/A: Spine Lumbar SARAH : SPINE [id number] / / Shashank Bina 3 Ti 6x40mm - [id number] Implanted:Qty : 1 on 10/11/2017 by Rosendo Nathan, at [facility] N/A: Spine Lumbar SARAH : SPINE [id number] / / Shashank Bina 3 Ti 6x45mm - [id number] Implanted:Qty : 1 on 10/11/2017 by Rosendo Nathan, at [facility] N/A: Spine Lumbar SARAH : SPINE [id number] / / documented as of this encounter Visit Diagnoses Diagnosis Spinal stenosis [...] and were consensually agreed upon. Care Teams Foot Setter Relationship Specialty Start Date End Date Myesha Cavanaugh MD [address] [place] [address] PCP - General Family Medicine 02/18/22 documented as of this encounter
--- OUTSIDE RECORDS SUMMARY | 2024-04-17 01:41 | External Medical Summary | Summary of Care ---
Author Name Unknown Organization [facility] Address [address] [facility] [address] Phone [phone] Care Team Providers Care Manager Cosmetic Name Role Phone Myesha Cavanaugh MD Primary Care Provid er Reason for Visit * Reason Onset Date Comments Medication Pre-auth 03/26/2024 HYDROCODONE- ACETAMIN 7.5-325 Encounter Details Date Type Department Care Team (Late st Contact Info) Description 03/26/2024 Telephone [facility] [address] [place] [address] Myesha Cavanaugh MD [address] [place] [address] Medication Pre-auth (HYDROCODONE-ACETAMIN ... Allergies Active Allergy Reactions Criticality Noted Date Comments Amoxicillin 01/05/2017 thrush Latex 06/20/2013 Hives, rash and swelling Lisinopril 06/02/2023 COUGH Nickel Rash 12/03/2020 documented as of this encounter (statuses as of 03/27/2024) Medications Medication Sig Dispensed Refills Start Date [...] as of this encounter (statuses as of 03/27/2024) Active Problems Problem Noted Date Diagnosed Date [...] as of this encounter (statuses as of 03/27/2024) Resolved Problems Problem Noted Date Diagnosed Date Resolved Date Food insecurity 04/19/2021 08/26/2021 Overview: Per [facility] Protocol Asthma exacerbation 03/30/2015 07/07/20 17 Moderate persistent asthma 11/09/2014 0 03/30/2015 Overview: PFT Pneumonitis 07/24/2014 01/06/2022 Asthma exacerbation 07/24/2014 03/30/20 15 documented as of this encounter (statuses as of 03/27/2024) Immunizations Name Administration Dates Next Due PPD [...] encounter Miscellaneous Notes * Telephone Encounter - Daysi Daugherty CPhT - 03/27/2024 2:04 PM EDT Pt calling into state that she pays out of pocket for her Rx HYDROCODONE- ACETAMIN 7.5-325 , pt is requesting for PCP to call pharmacy in order for pt to receive her Rx. Thank you, Daysi Daugherty Top Edge Beveler [facility] ([facility]) 03/27/2024, 2:05 PM * Telephone Encounter - Mary Goddard CPhT - 03/27/2024 11:43 AM EDT Patients insurance would like to inform the office that HYDROCODONE-ACETAMIN 7.5-325 is denied because documentation of medication working was not sent. They will fax this info to the office, please review and resubmit if appropriate. Thank you, Mary Goddard CPhT Mold Designer II [facility] ([facility]) 03/27/2024,11:43 AM * Telephone Encounter - Aubree Salcedo PHARM Tech - 03/26/2024 11:21 AM EDT Pt calling regarding Hydrocodone-APAP. Pt states she pays out of pocket for med. Advised pt to contact her pharmacy so that they can bill it thru as laguerre. Thank you, Aubree Salcedo, [employer] [facility] ([facility]) 03/26/2024,11:23 AM * Telephone Encounter - Erika Gomez CPhT - 03/26/2024 11:14 AM EDT Patients insurance would like to inform the office that this medication is denied because it is notcovered under insurance. They will fax this info to the office, please review and resubmit if appropriate. Thank you, Erika Gomez [employer] [facility] ([facility]) 03/26/2024,11:17 AM * Telephone Encounter - Salma Barksdale LPN - 03/26/2024 9:59 AM EDT Prior auth signed by provider and faxed to [facility]. * Telephone Encounter - Salma Barksdale LPN - 03/26/2024 9:56 AM EDT Paper prior auth filled out and placed on providers desk for signature. * Telephone Encounter - Diya Ray CPhT - 03/26/2024 9:29 AM EDT Patients insurance would like to inform the office that HYDROCODONE-ACETAMIN 7.5-325 is requiring additional information: any supporting clinical documentation. Prior authorization entered in PromptPA at [facility]. [facility]# [id number] Please fax to [phone] before [facility]. Thank you, Diya Ray [employer] [facility] 03/26/2024,9:30 AM documented in this encounter Plan of Treatment Upcoming Encounters Date Type Department Care Team (Late st Contact Info) Description 05/14/2024 2:00 PM EDT Imaging Radiology, [place] [address] [place] [address] 05/22/2024 12:30 PM EDT Telemedicine Psychology [place] [place] [address] [place] [address] Lurdes Fong, DYNAMIC ETCHING PROCESSOR [address] [place] [address] 09/30/2024 6:20 PM EST Office Visit Family Practice, [place] [address] [place] [address] Myesha Cavanaugh MD [address], [place] [phone] Scheduled Procedures Name Priority Associated Diagnoses Date/Ti [...] this encounter Medical Devices Implanted Type Area Boilermaker Mechanic Device Identifier Shelf Expiration Date Model / Serial / Lot Vitoss Bimodal Foam Pack 10cc - [id number] Implanted:Qty : 2 on 10/11/2017 by Rosendo Nathan, DO at [facility] N/A: Spine Lumbar SARAH : SPINE 03/08/2019 / / [id number] Vitoss Bimodal Foam Pack 10cc - [id number] Implanted:Qty : 1 on 10/11/2017 by Rosendo Nathan, DO at [facility] N/A: Spine Lumbar SARAH : SPINE 02/05/2019 / / [id number] Screw Audie Bina 3 Ti Set - [id number] Implanted:Qty : 4 on 10/11/2017 by Rosendo Nathan, DO at [facility] N/A: Spine Lumbar SARAH : SPINE [id number] / / 6.5 X 50 Mm Serrate Screws Implanted:Qty : 2 on 10/11/2017 by Rosendo Nathan, DO at [facility] N/A: Spine Lumbar SARAH : SPINE [id number] / / 6.5 X 45 Mm Serrate Screw Implanted:Qty : 2 on 10/11/2017 by Rosendo Nathan, DO at [facility] N/A: Spine Lumbar SARAH : SPINE [id number] / / 9 X 23x 6 - 9mm Pl Implanted:Qty : 1 on 10/11/2017 by Rosendo Nahtan, DO at [facility] N/A: Spine Lumbar SARAH : SPINE [id number] / / Shashank Bina 3 Ti 6x40mm - [id number] Implanted:Qty : 1 on 10/11/2017 by Rosendo Nathan, DO at [facility] N/A: Spine Lumbar SARAH : SPINE [id number] / / Shashank Bina 3 Ti 6x45mm - [id number] Implanted:Qty : 1 on 10/11/2017 by Rosendo Nathan, DO at [facility] N/A: Spine Lumbar SARAH : SPINE [id number] / / documented as of this encounter Advance Directives * Full Code (Latest Code Status on File) Date Activated Date Inactivated Comments 10/11/2017 9:23 AM 10/13/2017 10:36 PM This order r eflects the patients wishes and were consensually agreed upon. Care Teams Manager Cosmetic Relationship Specialty Start Date End Date Myesha Cavanaugh MD [address] [facility] [place] [address] PCP - General Family Medicine 02/18/22 documented as of this encounter
--- OUTSIDE RECORDS SUMMARY | 2024-04-17 01:41 | External Medical Summary | Summary of Care ---
Author Name Unknown Organization [facility] Address [address] [facility] [address] Phone [phone] Care Team Providers Care Pedicurist Name Role Phone Myesha Cavanaugh MD Primary Care Provid er Reason for Visit * Reason Onset Date Comments Medication Pre-auth 03/26/2024 HYDROCODONE- ACETAMIN 7.5-325 Encounter Details Date Type Department Care Team (Late st Contact Info) Description 03/26/2024 Telephone [facility] [address] [place] [address] Myesha Cavanaugh MD [address] [place] [address] Medication Pre-auth (HYDROCODONE-ACETAMIN ... Allergies [...] encounter Miscellaneous Notes * Telephone Encounter - Zack Eid MED [...] receive her Rx. Thank you, Daysi Daugherty Yarding Supervisor [facility] 03/27/2024, 2:05 PM * Telephone Encounter - Mary Goddard CPhT - 03/27/2024 11:43 AM EDT Patients insurance would like to inform the office that HYDROCODONE-ACETAMIN 7.5-325 is denied because documentation of medication working was not sent. They will fax this info to the office, please review and resubmit if appropriate. Thank you, Mary Goddard CPhT Lock Master II [facility]) 03/27/2024,11:43 AM * Telephone Encounter - Aubree Salcedo emergency department - 03/26/2024 11:21 AM EDT Pt calling regarding Hydrocodone-APAP. Pt states she pays out of pocket for med. Advised pt to contact her pharmacy so that they can bill it thru as [facility]. Thank you, Aubree Salcedo, Yarding Supervisor [facility]) 03/26/2024,11:23 AM * Telephone Encounter - Erika Gomez CPhT - 03/26/2024 11:14 AM EDT Patients insurance would like to inform the office that this medication is denied because it is notcovered under insurance. They will fax this info to the office, please review and resubmit if appropriate. Thank you, Erika Gomez Yarding Supervisor [facility]) 03/26/2024,11:17 AM * Telephone Encounter - Salma Barksdale LPN - 03/26/2024 9:59 AM EDT Prior auth signed by provider and faxed to [facility]. * Telephone Encounter - Salma Barksdale LPN - 03/26/2024 9:56 AM EDT Paper prior auth filled out and placed on providers desk for signature. * Telephone Encounter - Diya Ray CPhT - 03/26/2024 9:29 AM EDT Patients insurance would like to inform the office that HYDROCODONE-ACETAMIN 7.5-325 is requiring additional information: any supporting clinical documentation. Prior authorization entered in PromptPA at [facility]. EOC# [id number] Please fax to [phone] before [facility]. Thank you, Diya Ray Yarding Supervisor [facility] 03/26/2024,9:30 AM documented in this encounter Plan of Treatment Upcoming Encounters Date Type Department Care Team (Late st Contact Info) Description 05/14/2024 2:00 PM EDT Imaging Radiology, [place] [address] [place] [address] 05/22/2024 12:30 PM EDT Telemedicine Psychology [place], [place] [address] [place] [phone] Lurdes Fong, BREAK UP WORKER [address] [place] [address] 09/30/2024 6:20 PM EST Office Visit Family [facility], [place] [address] [place] [address] Myesha Cavanaugh MD [address], [place] [phone] Scheduled Procedures Name Priority Associated Diagnoses Date/Ti [...] 07/16/2013 DISCUSS TOBACCO CESSATION (REFER TO SMARTSET #9261) 01/06/2023 01/06/2022, 09/23/2021 COVID-19 Vaccine ( - season) 2023 DTaP,Tdap,and Td Vaccines (2 - Td or Tdap) 06/20/2023 06/20/2013 Mammogram 01/18/2024 01/17/2023, 05/2023, 06/27/2013 *COPD SEVERITY VERIFIED BY PFT [...] this encounter Medical Devices Implanted Type Area Political Worker Device Identifier Shelf Expiration Date Model / Serial / Lot Vitoss Bimodal Foam Pack 10cc - [id number] Implanted:Qty : 2 on 10/11/2017 by Rosendo Nathan, DO at [facility] N/A: Spine Lumbar SARAH : SPINE 03/08/2019 / / [id number] Vitoss Bimodal Foam Pack 10cc - [id number] Implanted:Qty : 1 on 10/11/2017 by Rosendo Nathan, DO at [facility] N/A: Spine Lumbar SARAH : SPINE 02/05/2019 / / [id number] Screw Audie Bina 3 Ti Set - [id number] Implanted:Qty : 4 on 10/11/2017 by Rosendo Nathan, at [facility] N/A: Spine Lumbar SARAH : SPINE [id number] / / 6.5 X 50 Mm Serrate Screws Implanted:Qty : 2 on 10/11/2017 by Rosendo Nathan, DO at [facility] N/A: Spine Lumbar SARAH : SPINE [id number] / / 6.5 X 45 Mm Serrate Screw Implanted:Qty : 2 on 10/11/2017 by Rosendo Nathan, at [facility] N/A: Spine Lumbar SARAH : SPINE [id number] / / 9 X 23x 6 - 9mm Pl Implanted:Qty : 1 on 10/11/2017 by Rosendo Nathan, at [facility] N/A: Spine Lumbar SARAH : SPINE [id number] / / Shashank Bina 3 Ti 6x40mm - [id number] Implanted:Qty : 1 on 10/11/2017 by Rosendo Nathan, at [facility] N/A: Spine Lumbar SARAH : SPINE [id number] / / Shashank Bina 3 Ti 6x45mm - [id number] Implanted:Qty : 1 on 10/11/2017 by Rosendo Nathan, DO at [facility] N/A: Spine Lumbar SARAH : SPINE [id number] / / documented as of this encounter Advance Directives * Full Code (Latest Code Status on File) Date Activated Date Inactivated Comments 10/11/2017 9:23 AM 10/13/2017 10:36 PM This order r eflects the patients wishes and were consensually agreed upon. Care Teams Pedicurist Relationship Specialty Start Date End Date Myesha Cavanaugh MD [address] [facility] [place] [address] PCP - General Family Medicine 02/18/22 documented as of this encounter
--- OUTSIDE RECORDS SUMMARY | 2024-04-17 01:41 | External Medical Summary | Summary of Care ---
Author Name Unknown Organization [facility] Address [address] [place] [facility] [place] [place] [address] Phone [phone] Care Team Providers Care Car Runner Name Role Phone Олег Frias MD Primary Care Provid er Reason for Visit * Reason Comments eRx-Medication Refill Encounter Details Date Type Department Care Team (Late st Contact Info) Description 03/28/2024 Refill [facility] [address] [place] [phone] Олег Frias MD [address] [place] [address] HTN, goal below 140/90 Allergies Active Allergy Reactions Criticality Noted Date [...] tions:Moderate persistent asthma without complication,COPD , moderate ([facility]) Inhale 1 Vial via nebulizer every 6 [...] THE MORNING 90 Tablet 1 03/29/2024 Active amLODIPine Besylate 5 MG Oral Tablet [...] encounter Miscellaneous Notes * Telephone Encounter - Gray Clements, [facility] - 03/29/2024 7:52 AM EDTSigned Prescriptions: Disp Refills amLODIPine Besylate 5 MG Oral Tablet (Norv*90 Tab*1 Sig: TAKE 1 TABLET BY MOUTH IN THE MORNINGAuthorizing Provider: ОЛЕГ FRIAS User: GRAY CROWE documented in this encounter Plan of Treatment Upcoming Encounters Date Type Department Care Team (Late st Contact Info) Description 05/14/2024 2:00 PM EDT Imaging Radiology, [place] [address] [place] [address] 05/22/2024 12:30 PM EDT Telemedicine Psychology [place] [address] [place] [phone] Lurdes Fong, [facility] [address] [place] [address] 09/30/2024 6:20 PM EST Office Visit Family [facility], [place] [address] [place] [address] Олег Frias MD [address] [place] [address] Scheduled Procedures Name Priority Associated Diagnoses Date/Ti [...] 07/16/2013 DISCUSS TOBACCO CESSATION (REFER TO SMARTSET #9618) 01/06/2023 01/06/2022, 09/23/2021 COVID-19 Vaccine ( - [...] this encounter Medical Devices Implanted Type Area Matrix Drier Tender Device Identifier Shelf Expiration Date Model / Serial / Lot Vitoss Bimodal Foam Pack 10cc - [id number] Implanted:Qty : 2 on 10/11/2017 by Rosendo Nathan DO at [facility] N/A: Spine Lumbar SARAH : SPINE 03/08/201921018747-0874 / / [id number] Vitoss Bimodal Foam Pack 10cc - [id number] Implanted:Qty : 1 on 10/11/2017 by Rosendo Nathan DO at [facility] N/A: Spine Lumbar SARAH : SPINE 02/05/2019 / / [id number] Screw Audie Bina 3 Ti Set - [id number] Implanted:Qty : 4 on 10/11/2017 by Rosendo Nathan DO at [facility] N/A: Spine Lumbar SARAH : SPINE [id number] / / 6.5 X 50 Mm Serrate Screws Implanted:Qty : 2 on 10/11/2017 by Rosendo Nathan DO at [facility] N/A: Spine Lumbar SARAH : SPINE [id number] / / 6.5 X 45 Mm Serrate Screw Implanted:Qty : 2 on 10/11/2017 by Rosendo Nathan DO at [facility] N/A: Spine Lumbar SARAH : SPINE [id number] / / 9 X 23x 6 - 9mm Pl Implanted:Qty : 1 on 10/11/2017 by Rosendo Nathan DO at [facility] N/A: Spine Lumbar SARAH : SPINE [id number] / / Shashank Bina 3 Ti 6x40mm - [id number] Implanted:Qty : 1 on 10/11/2017 by Rosendo Nathan, at [facility] N/A: Spine Lumbar SARAH : SPINE [id number] / / Shashank Bina 3 Ti 6x45mm - [id number] Implanted:Qty : 1 on 10/11/2017 by Rosendo Nathan, DO at [facility] N/A: Spine Lumbar SARAH : SPINE [id number] / / documented as of this encounter Visit Diagnoses Diagnosis HTN, goal below 140/90 Unspecified essential hypertension documented in this encounter Advance Directives * Full Code (Latest Code Status on File) Date Activated Date Inactivated Comments 10/11/2017 9:23 AM 10/13/2017 10:36 PM This order r eflects the patients wishes and were consensually agreed upon. Care Teams Car Runner Relationship Specialty Start Date End Date Олег Frias MD [address] [facility] [place] [address] PCP - General Family Medicine 02/18/22 documented as of this encounter
--- OUTSIDE RECORDS SUMMARY | 2024-04-17 01:41 | External Medical Summary | Summary of Care ---
Author Name Unknown Organization [facility] Address [address] [facility] [address] Phone [phone] Care Team Providers Care Repair Supervisor Name Role Phone Myesha Cavanaugh MD Primary Care Provid er Reason for Visit * Reason Onset Date Comments Medication Pre-auth 03/26/2024 HYDROCODONE- ACETAMIN 7.5-325 Encounter Details Date Type Department Care Team (Late st Contact Info) Description 03/26/2024 Telephone [facility] [address] [place] [address] Myesha Cavanaugh MD [address] [place] [address] Medication Pre-auth (HYDROCODONE-ACETAMIN ... Allergies [...] encounter Miscellaneous Notes * Telephone Encounter - Mary Goddard CPhT - 03/27/2024 11:43 AM EDT Patients insurance would like to inform the office that HYDROCODONE-ACETAMIN 7.5-325 is denied because documentation of medication working was not sent. They will fax this info to the office, please review and resubmit if appropriate. Thank you, Mary Goddard CPhT Tribal Judge II [facility]) 03/27/2024,11:43 AM * Telephone Encounter - Aubree Salcedo PHARM Tech - 03/26/2024 11:21 AM EDT Pt calling regarding Hydrocodone-APAP. Pt states she pays out of pocket for med. Advised pt to contact her pharmacy so that they can bill it thru as [place]. Thank you, Aubree Salcedo, Access Coordinator [facility]) 03/26/2024,11:23 AM * Telephone Encounter - Erika Gomez CPhT - 03/26/2024 11:14 AM EDT Patients insurance would like to inform the office that this medication is denied because it is notcovered under insurance. They will fax this info to the office, please review and resubmit if appropriate. Thank you, Erika Gomez Access Coordinator [facility]) 03/26/2024,11:17 AM * Telephone Encounter - Salma Barksdale LPN - 03/26/2024 9:59 AM EDT Prior auth signed by provider and faxed to [facility]. * Telephone Encounter - [...] documentation. Prior authorization entered in PromptPA at [facility]. EOC# [id number] Please fax to [phone] before [facility]. Thank you, Diya Ray Access Coordinator [facility] 03/26/2024,9:30 AM documented in this encounter Plan of Treatment Upcoming Encounters Date Type Department Care Team (Late st Contact Info) Description 05/14/2024 2:00 PM EDT Imaging Radiology, [place] [address] [place] [address] 05/22/2024 12:30 PM EDT Telemedicine Psychology [place] [address] [place] [phone] Lurdes Fong, [employer] [address] [place] [facility] [place] [address] 09/30/2024 6:20 PM EST Office Visit Family Practice, [place] [address] [place] [address] Myesha Cavanaugh MD [address] [place] [address] Scheduled Procedures Name Priority Associated Diagnoses [...] or Tdap) 06/20/2023 06/20/2013 Mammogram 01/18/2024 01/17/2023, 0505/2023, 06/27/2013 *COPD SEVERITY VERIFIED BY PFT 03/24/2024 [...] this encounter Medical Devices Implanted Type Area Machine Stripper Device Identifier Shelf Expiration Date Model / Serial / Lot Vitoss Bimodal Foam Pack 10cc - [id number] Implanted:Qty : 2 on 10/11/2017 by Rosendo Nathan, DO at [facility] N/A: Spine Lumbar SARAH : SPINE 03/08/2019 / / [id number] Vitoss Bimodal Foam Pack 10cc - [id number] Implanted:Qty : 1 on 10/11/2017 by Rosendo Nathan, DO at [facility] N/A: Spine Lumbar SARAH : SPINE 02/05/2019 / / [id number] Screw Audie Bina 3 Ti Set - [id number] Implanted:Qty : 4 on 10/11/2017 by Rosendo Nathan, DO at [facility] N/A: Spine Lumbar SARAH : SPINE [id number] / / 6.5 X 50 Mm Serrate Screws Implanted:Qty : 2 on 10/11/2017 by Rosendo Nathan DO at [facility] N/A: Spine Lumbar SARAH : SPINE [id number] / / 6.5 X 45 Mm Serrate Screw Implanted:Qty : 2 on 10/11/2017 by Rosendo Nathan, DO at [facility] N/A: Spine Lumbar SARAH : SPINE [id number] / / 9 X 23x 6 - 9mm Pl Implanted:Qty : 1 on 10/11/2017 by Jac, Rosendo Hair, DO at [facility] N/A: Spine Lumbar SARAH : SPINE [id number] / / Shashank Bina 3 Ti 6x40mm - [id number] Implanted:Qty : 1 on 10/11/2017 by Rosendo Nathan, DO at [facility] N/A: Spine Lumbar SARAH : SPINE [id number] / / Shashank Bina 3 Ti 6x45mm - [id number] Implanted:Qty : 1 on 10/11/2017 by Rosendo Nathan, DO at [facility] N/A: Spine Lumbar SARAH : SPINE [id number] / / documented as of this encounter Advance Directives * Full Code (Latest Code Status on File) Date Activated Date Inactivated Comments 10/11/2017 9:23 AM 10/13/2017 10:36 PM This order r eflects the patients wishes and were consensually agreed upon. Care Teams Repair Supervisor Relationship Specialty Start Date End Date Myesha Cavanaugh MD [address] [place] [address] PCP - General Family Medicine 02/18/22 documented as of this encounter
--- OUTSIDE RECORDS SUMMARY | 2024-04-17 01:42 | External Medical Summary | Summary of Care ---
Author Name Unknown Organization [facility] Address [address] [facility] [place] [address] Phone [phone] Care Team Providers Care Cross Cut Saw Operator Name Role Phone Myesha Cavanaugh MD Primary Care Provid er Reason for Referral * Medication Prior Authorization - Pending Review Specialty Diagnoses / Procedures Referred By Contac t Referred To Contact Diagnoses History of lumbar fusion Spinal stenosis of lumbar region with neurogenic claudication Lumbar radiculitis Sacroiliac joint pain Myesha Cavanaugh MD [address] [place] [address] Referral ID Status Reason Start Date Expiration Date V isits Requested Visits Authorized [id number] Pending Review 999 999 Reason for Visit * Reason Onset Date Comments Post-Op 02/22/2024 Pain 02/22/2024 Advice 02/22/2024 Encounter Details Date Type Department Care Team (Late st Contact Info) Description 02/22/2024 Telephone [facility] [address] [place] [facility] [place] [address] Myesha Cavanaugh MD [address] [place] [address] Post-Op; Pain; Advice Allergies Active Allergy Reactions Criticality Noted Date Comments Amoxicillin 01/05/2017 thrush Latex 06/20/2013 Hives, rash and swelling Lisinopril 06/02/2023 COUGH Nickel Rash 12/03/2020 documented as of this encounter (statuses as of 03/04/2024) Medications Medication Sig Dispensed Refills Start Date End Date Status Spiriva Respimat 2.5 MCG/ACT Inhalation Aerosol Solution (Tiotropium [place] Monohydrate) Inhale 2 Puffs by mouth daily. 12 g 3 09/23/2021 Active Additional Information Patient not taking.Reported on 09/26/2023 hydrOXYzine HCl 50 MG Oral TabletIndications: Anxiety,Pruritus Take 1 Tablet by mouth every 6 hours as needed for Itching or Anxiety. 60 Tablet 5 05/02/2023 Active Meloxicam 15 MG Oral TabletIndications: Fibromyalgia,Lumba r radiculitis Take 1 Tablet by mouth daily. Take 1-2 tabs daily for pain. 90 Tablet 1 05/02/2023 Active Additional Information Patient not taking.Reported on 11/06/2023 Compressor NebulizerIndicatio ns:Moderate persistent asthma without complication,COPD, 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 Use as directed. 1 Each 1 05/26/2023 Active Additional Information Patient not taking.Reported on 12/05/2023 Benzonatate 100 MG Oral CapsuleIndications :Upper respiratory tract infection, unspecified type,Acute cough Take 1 Capsule by mouth 3 times a day as needed for Cough (may make you sleepy). 15 Capsule 06/01/2023 Active Additional Information Patient not taking.Reported on 06/14/2023 amLODIPine Besylate 5 MG Oral Tablet (Norvasc)Indicatio [...] Additional Information Patient not taking.Reported on 09/26/2023 Azithromycin 250 MG Oral Tablet (Zithromax Z-Nabil)Indications: Protracted URI,Fatigue, unspecified type Take two tablets by mouth on first day, then 1 tablet daily until gone 6 Tablet 06/27/2023 Active Additional Information Patient not taking.Reported on 09/26/2023 Montelukast Sodium 10 MG Oral Tablet (Singulair)Indicat ions:Chronic cough Take 1 Tablet by mouth at bedtime. 90 Tablet 3 09/01/2023 Active Pregabalin 150 MG Oral Capsule (Lyrica)Indication s:Spinal [...] the morning. 90 Tablet 3 11/06/2023 Active Ondansetron HCl 4 MG Oral Tablet (Zofran)Indication s:Nausea and vomiting, unspecified vomiting type TAKE 1 TABLET BY MOUTH EVERY 8 HOURS NEEDED FOR NAUSEA 20 Tablet 11/09/2023 Active Acetaminophen 500 MG Oral Tablet (Tylenol) [...] NEEDED FOR ANXIETY 30 Tablet 01/18/2024 Active Omeprazole 20 MG Oral Capsule Delayed Release (PriLOSEC)Indicati ons:Nausea and vomiting, unspecified vomiting type,Gastroesophag eal reflux disease without esophagitis Take 1 Capsule by mouth in the morning. 30 Capsule 5 01/18/2024 Active Losartan Potassium 50 MG Oral Tablet (Cozaar) Take 1 Tablet by mouth in the morning. 30 Tablet 5 01/18/2024 Active Albuterol Sulfate HFA 108 (90 Base) MCG/ACT Inhalation Aerosol SolutionIndication s:Exacerbation of asthma, unspecified asthma severity, unspecified whether persistent INHALE 2 PUFFS BY MOUTH EVERY 4 HOURS NEEDED FOR WHEEZING 36 g 1 02/16/2024 Active HYDROcodone-Acetam inophen 7.5-325 MG Oral TabletIndications: History of lumbar fusion,Spinal stenosis of lumbar region with neurogenic claudication,Lumba r radiculitis,Sacroi liac joint pain Take 1 Tablet by mouth daily as needed for Pain, Severe. 30 Tablet 02/23/2024 Active HYDROcodone-Acetam inophen 7.5-325 MG Oral TabletIndications: History of lumbar fusion,Spinal stenosis of lumbar region with neurogenic claudication,Lumba r radiculitis,Sacroi liac joint pain Take 1 Tablet by mouth every 8 hours as needed for Pain, Severe. 90 Tablet 11/30/2023 Discontinue d(Refill) documented as of this encounter (statuses as of 03/04/2024) Active Problems Problem Noted Date Diagnosed Date [...] as of this encounter (statuses as of 03/04/2024) Resolved Problems Problem Noted Date Diagnosed Date Resolved Date Food insecurity 04/19/2021 08/26/2021 Overview: Per [facility] Protocol Asthma exacerbation 03/30/2015 07/07/20 17 Moderate persistent asthma 11/09/2014 0 03/30/2015 Overview: PFT Pneumonitis 07/24/2014 01/06/2022 Asthma exacerbation 07/24/2014 03/30/20 15 documented as of this encounter (statuses as of 03/04/2024) Immunizations Name Administration Dates Next Due PPD [...] encounter Miscellaneous Notes * Telephone Encounter - Megan Alvarez OSA - 03/04/2024 12:33 PM EDT Patient did not want to wait until April for follow up. Scheduled first available with Dr. Cavanaugh. 03/04/2024 * Telephone Encounter - Myesha Cavanaugh MD - 03/04/2024 12:27 PM EDT Recommend follow up w me in April to review pain mgmt, please call pt to schedule * Telephone Encounter - Codie Salomon LPN - 02/28/2024 5:17 PM EDT [facility] verbal order that patient can pay for medication out of pocket note was faxed to them on 02/27. * Telephone Encounter - Candace Rich PA-C - 02/28/2024 4:14 PM EDT Please call pharmacy = she can pay out of pocket for prescription as it will take a signed med use agreement and urine drug screen and a re-do of pete to get insurance to reconsider Please let patient know as well Candace Rich PA-C 02/28/2024 4:15 PM * Telephone Encounter - Faye Mcclellan PHARM Tech - 02/28/2024 4:08 PM EDT Pt calling back. Advised pt of message. Pt said she would like a call back from office. Pt doesn't understand why another dr can't take care of it. Thanks, Faye Mcclellan Veterinarian Helper [facility] 02/28/2024,4:09 PM * Telephone Encounter - Diya Ray CPhT - 02/28/2024 4:04 PM EDT Patient returning call to check status, I was able to reach office and Dr Cavanaugh is not in clinic today. I attempted to reach patient back but was unable to reach her. Please advise patient that Dr Coopero is not in clinic today and the nurses will talk to her as soon as they can regarding this medication. Thank you, Diya Ray Veterinarian Helper [facility] 02/28/2024,4:06 PM * Telephone Encounter - Diya Ray CPhT - 02/28/2024 2:47 PM EDT Patient is calling to check status, states she is out of pain medication and is asking if someone can call her back about this. Patient is aware that PA was denied, Pt would like to pay out of pocketif possible, If provider is ok with that then someone from the office would need to contact pharmacy to ok this method of payment. Please advise. Thank you, Diya Ray Veterinarian Helper [facility] 02/28/2024,2:49 PM * Telephone Encounter - Bere Bermudez MED ASSIST - 02/28/2024 10:58 AM EDT Are you okay with patient paying out of pocket? * Telephone Encounter - Jess Jimenez executive personal assistant - 02/28/2024 10:46 AM EDT Patient called in today stating that she was called by the pharmacy that this is denied and they told her if the office calls and gives permission she can pick it up out of pocket, patient is asking if this is possible please advise . Thank you, Jess Jimenez Benzol Operator I [facility] 02/28/2024,10:47 AM * Telephone Encounter - Serena Reagan CPhT - 02/28/2024 10:40 AM EDT Patient calling to check status of Prior Auth. Thank you, Serena Reagan, Veterinarian Helper I [facility] 02/28/2024,10:45 AM * Telephone Encounter - Sydnie Craft LPN - 02/27/2024 3:39 PM EDT Spoke to Ashly at [facility] and she states the prior auth was denied and denial letter will be sent to our office. * Telephone Encounter - Rianna White CPhT - 02/27/2024 2:22 PM EDT Patients insurance would like to inform the office that hydrocodone-apap is requiring additional information: urine drug screen, if pt is experiencing improvement on medication and if pt is benzodiazepine. Prior authorization entered in [employer] at [facility]. EOC# [id number] Please fax to [phone] before 4pm. Thank you, Rianna White CPhT II Director Of Public Relations [facility] 02/27/2024, 2:22 PM * Telephone Encounter - Sydnie Craft LPN - 02/27/2024 1:39 PM EDT Last office note was sent to [facility] * Telephone Encounter - Ivelisse Londono PHARM Tech - 02/27/2024 11:33 AM EDT pt calling to check on status of prior auth. Thank you, Ivelisse Londono CPhT Director Of Public Relations II [facility] 02/27/2024, 11:33 AM * Telephone Encounter - Jeison Singletary CPhT - 02/26/2024 8:08 AM EDT Patients insurance would like to inform the office that HYDROCODONE-ACETAMIN 7.5-325 is requiring additional information: clinical criteria. Prior authorization entered in [employer] at [facility]. EOC# [id number] Please fax to [phone] before [facility]. Thank you, Spencer Singletary ([facility]) Director Of Public Relations III [facility] 02/26/2024, 8:08 AM * Telephone Encounter - Sydnie Craft LPN - 02/24/2024 9:06 AM EDT Left a message on [employer] answering machine that her script was sent to [facility] pharmacy. * Telephone Encounter - Myesha Cavanaugh MD - 02/23/2024 5:19 PM EDT Script sent * Telephone Encounter - Megan Luevano OSA - 02/23/2024 2:55 PM EDT Pt is calling to see if there is something she can get called in to help with her pain from back surgery. Pt would like a call back. * Telephone Encounter - Christiana Swartz LPN - 02/22/2024 3:12 PM EDT Please advise. Last appt: 12/11/2023 (in office), 10/16/2023 (telemedicine) Next appt: Visit date not found Looks like she had a spinal fusion 12/15/23. Decompression supplemented by a L3-5 instrumented posterolateral fusion using allograft, autograft and a bilateral pedicle screw/shashank construct, insertion of interbody fusion device with revision of existing L4-[address] Nathan on 12/15/23 * Telephone Encounter - Melissa Guillory OSA - 02/22/2024 2:17 PM EDT Pt is calling because she is having some back pain post op. Pt describes it as sharp pain and she is hoping that she can get some pain medication. She was instructed by her surgeon to ask her provider for medication because it has been more than 6 weeks since her surgery. Please call patient at [phone]. documented in this encounter Plan of Treatment Upcoming Encounters Date Type Department Care Team (Late st Contact Info) Description 03/15/2024 4:00 PM EDT [facility] [address] [place], [place] [address] Chon Whitley MD [address] [place], [place] [address] 03/25/2024 6:20 PM EDT [facility] [address] [facility] [phone] Myesha Cavanaugh MD [address] [place] [address] Scheduled Procedures Name Priority Associated Diagnoses Date/Ti me COLONOSCOPY FLEXIBLE PROXIMAL DIAGNOSTIC Recall Nausea & vomiting Unintentional weight loss ESOPHAGOGASTRODUODENOSCOPY ( EGD), FLEXIBLE, TRANSORAL, DIAGNOSTIC Recall Nausea & vomiting Unintentional weight loss Health Maintenance Due Date Last Done Comments HIV Screening 1984 Alpha-1 Antitrypsin 1987 Hepatitis B (1 of 3 - 19+ 3-dose series) 1988 HPV/Co-Test 1999 Cologuard 2014 Fecal Occult Blood Test 2014 Sigmoidoscopy 2014 Pneumococcal Vaccine: Pediatrics (0 to 5 Years) and At-Risk Patients (6 to 64 Years) (2 of 2 - PCV) 06/20/2014 06/20/2013 Zoster Vaccines (1 of 2) 2019 Cervical Cancer Screening 07/07/2020 Pap Smear 07/07/2020 07/07/2017, 07/16/2013 COVID-19 Vaccine ( - season) 2023 DTaP,Tdap,and Td Vaccines (2 - Td or Tdap) 06/20/2023 06/20/2013 Mammogram 01/18/2024 01/17/2023, 05/2023, 06/27/2013 Influenza Vaccine (FLU shot) (Season Ended) 2024 07/07/2017, 06/20/2013 O2 ASSESSMENT COMPLETED IN PAST YEAR FOR COPD 12/04/2024 12/05/2023 GFR 12/30/2024 12/31/2023, 04/2 , 11/28/2023, Additional history exists Depression Monitoring 01/15/2025 01/16/2024 Albumin/Creatinine Ratio 09/01/2026 09/01/2023 Lipid Panel 05/11/2027 05/11/2022 Colonoscopy 09/27/2033 09/27/2023 Colorectal Cancer Screening 09/27/2033 GARDASIL-HPV IMMUNIZATION SERIES Aged Out No longer eligible based on patient's age to complete this topic MENINGOCOCCAL (MENACTRA/MENVEO) Aged Out No longer eligible based on patient's age to complete this topic documented as of this encounter Medical Devices Implanted Type Area Senior Compliance Officer Device Identifier Shelf Expiration Date Model / Serial / Lot Vitoss Bimodal Foam Pack 10cc - [id number] Implanted:Qty : 2 on 10/11/2017 by Rosendo Nathan DO at [facility] N/A: Spine Lumbar SARAH : SPINE 03/08/2019 / / [id number] Vitoss Bimodal Foam Pack 10cc - [id number] Implanted:Qty : 1 on 10/11/2017 by Rosendo Nathan DO at [facility] N/A: Spine Lumbar SARAH : SPINE 02/05/2019 / / [id number] Screw Audie Bina 3 Ti Set - [id number] Implanted:Qty : 4 on 10/11/2017 by Rosendo Nathan DO at [facility] N/A: Spine Lumbar SARAH : SPINE [id number] / / 6.5 X 50 Mm Serrate Screws Implanted:Qty : 2 on 10/11/2017 by Rosendo Nathan DO at [facility] N/A: Spine Lumbar SARAH : SPINE [id number] / / 6.5 X 45 Mm Serrate Screw Implanted:Qty : 2 on 10/11/2017 by Rosendo Nathan DO at [facility] N/A: Spine Lumbar SARAH : SPINE [id number] / / 9 X 23x 6 - 9mm Pl Implanted:Qty : 1 on 10/11/2017 by Rosendo Nathan DO at [facility] N/A: Spine Lumbar SARAH : SPINE [id number] / / Shashank Bina 3 Ti 6x40mm - [id number] Implanted:Qty : 1 on 10/11/2017 by Rosendo Nathan DO at [facility] N/A: Spine Lumbar SARAH : SPINE [id number] / / Shashank Bina 3 Ti 6x45mm - [id number] Implanted:Qty : 1 on 10/11/2017 by Rosendo Nathan DO at [facility] N/A: Spine Lumbar SARAH : SPINE [id number] / / documented as of this encounter Visit Diagnoses Diagnosis History of lumbar fusion Spinal stenosis of lumbar region with neurogenic claudication Spinal stenosis, lumbar region, with neurogenic claudication Lumbar radiculitis Thoracic or lumbosacral neuritis or radiculitis, unspecified Sacroiliac joint pain Disorders of sacrum documented in this encounter Advance Directives * Full Code (Latest Code Status on File) Date Activated Date Inactivated Comments 10/11/2017 9:23 AM 10/13/2017 10:36 PM This order r eflects the patients wishes and were consensually agreed upon. Care Teams Cross Cut Saw Operator Relationship Specialty Start Date End Date Myesha Cavanaugh MD [address] [facility] [place] [address] PCP - General Family Medicine 02/18/22 documented as of this encounter
--- OUTSIDE RECORDS SUMMARY | 2024-04-17 01:42 | External Medical Summary ---
Author Name Unknown Address Unknown Organization K01:[facility] [place] [address] [facility] [address] Laboratory Report Ordering Provider Test Date Status RODRIGUEZ DENNEY 03/25/2024 18:47:31 Final Cutoff Concentrations:
Drug Level
Amphetamines 500 ng/mL
Benzodiazepines 100 ng/mL
Cannabinoids 50 ng/mL
Cocaine Metabolite 150 ng/mL
Fentanyl 1 ng/mL
Hydrocodone / Hydromorphone 300 ng/mL
Methadone Metabolite 100 ng/mL
Morphine / Codeine 300 ng/mL
Oxycodone / Oxymorphone 100 ng/mL

Screening results are presumptive and can only be used for medical purposes. Positive screening results are reflexed to confirmatory testing. Observation Date Value Abnormality Reference (Units ) Status Amphetamines, Urine screen 03/25/2024 18:47:31 Negative Negative Final Benzodiazepines, Urine screen 03/25/2024 18:47:31 Negative Negative Final Cannabinoids, Urine screen 03/25/2024 18:47:31 Positive Abnormal Negative Final Cocaine Metabolite, Urine screen 03/25/2024 18:47:31 Negative Negative Final fentaNYL [Presence] in Urine by Screen method 03/25/2024 18:47:31 Negative Negative Final HYDROcodone [Presence] in Urine by Screen method 03/25/2024 18:47:31 Negative Negative Final 4-Cwteqrefdi-7,5-Dimeth yl-3,3-Diphenylpyrrolid ine (EDDP) [Presence] in Urine 03/25/2024 18:47:31 Negative Negative Final Opiates, Urine screen 03/25/2024 18:47:31 Negative Negative Final oxyCODONE [Presence] in Urine by Screen method 03/25/2024 18:47:31 Negative Negative Final Performing Location [facility] [address] [facility] [address]
--- OUTSIDE RECORDS SUMMARY | 2024-04-17 01:42 | External Medical Summary | Summary of Care ---
Author Name Unknown Organization [facility] Address [address] [place] [address] Phone [phone] Care Team Providers Care Configuration Technician Name Role Phone Myesha Cavanaugh MD Primary Care Provid er Reason for Referral * Evaluate & Treat - Unlimited Visits (Within 30 days (routine)) - Pending Review Specialty Diagnoses / Procedures Referred By Jun garay Referred To Contact Psychiatry Diagnoses Anxiety History of alcohol use disorder Current severe episode of major depressive disorder without psychotic features, unspecified whether recurrent ([facility]) Myesha Cavanaugh MD [address] [place] [address] Referral ID Status Reason Start Date Expiration Date Visits Requested Visits Authorized [id number] Pending Review Specialty Services Required 03/25/2024 999 [...] joint pain Myesha Cavanaugh MD [address] [place] [address] Referral ID Status Reason Start Date Expiration Date V isits Requested Visits Authorized [id number] Pending Review 999 999 * Evaluate & Treat - Unlimited Visits (Within 30 days (routine)) - Pending Review Specialty Diagnoses / Procedures Referred By Contac t Referred To Contact Pharmacist / Pharmacy Diagnoses Spinal stenosis of lumbar region with neurogenic claudication S/P lumbar fusion Myesha Cavanaugh MD [address] [place] [address] Referral ID Status Reason Start Date Expiration Date Visits Requested Visits Authorized [id number] Pending Review Specialty Services Required 03/25/2024 09/21/2024 99 99 Question Answer Referral Priority Within 30 days (routine) Where should this appointment be scheduled? [facility] Referring Provider Role: Primary Care [...] have her medication therapy managed by the [facility]ication [facility] ([facility]) per established policies, procedures, and protocols. I also certify that this referral may serve as an initiation of service for the management of drug therapy in the above noted patient. [facility] providers will be responsible for scheduling patient visits, obtaining appropriate laboratory studies, and adjusting medication management therapy per patient's need, in addition to those roles spelled out in the clinic policy, procedures, and drug management protocols. I understand that the service provided by the [facility] is voluntary and have informed patient that they can refuse the service at their discretion. I am aware that the [facility] will provide me with a copy of the patient encounter via my [employer]. I authorize the [facility] to carry out these activities [...] Description 03/25/2024 6:20 PM EDT Office Visit [facility] [address] [place] [facility] [place] [address] Myesha Cavanaugh MD [address] [facility], [place] [address] Spinal stenosis of lumbar region with neurogenic [...] as of this encounter (statuses as of 03/25/2024) Medications Medication Sig Dispensed Refills Start Date [...] Respimat 2.5 MCG/ACT Inhalation Aerosol Solution (Tiotropium [place] Monohydrate) Inhale 2 Puffs by mouth daily. [...] as of this encounter (statuses as of 03/25/2024) Active Problems Problem Noted Date Diagnosed Date [...] as of this encounter (statuses as of 03/25/2024) Resolved Problems Problem Noted Date Diagnosed Date Resolved Date Food insecurity 04/19/2021 08/26/2021 Overview: Per [facility] Protocol Asthma exacerbation 03/30/2015 07/07/20 17 Moderate persistent asthma 11/09/2014 0 03/30/2015 Overview: PFT Pneumonitis 07/24/2014 01/06/2022 Asthma exacerbation 07/24/2014 03/30/20 15 documented as of this encounter (statuses as of 03/25/2024) Immunizations Name Administration Dates Next Due PPD [...] 12 hours as needed for Pain, Severe. S/P lumbar fusion - TOXICOLOGY, [...] of the lumbar spine: There are 5 dzw-vpl-aupryir lumbar vertebral bodies. There is a normal lumbar lordosis. Again notedis a stable grade 1 anterolisthesis of L4 in respect L5. Stable postsurgical changes noted with paired pedicle screws and stabilizing rods at L3, L4, and L5. Disc prosthesis are noted within the L3-L4 and L4-L5 disc spaces. There is no evidence of hardwarecomplication. Laminectomy defects and lateral bony fusion changes [...] of separately billed services. Myesha Cavanaugh MD [address] [address] There are no Patient Instructions on file [...] Description 05/14/2024 2:00 PM EDT Imaging Radiology, [place] [address] [place] [address] 05/22/2024 12:30 PM EDT Telemedicine Psychology [facility] [address] [place] [phone] Lurdes Fong, [facility] [address] [place] [address] 09/30/2024 6:20 PM EST Office Visit [facility] [address] [place] [phone] Myesha Cavanaugh MD [address] [place] [address] Pending Results Name Type Priority Associated Diagnoses [...] this encounter Medical Devices Implanted Type Area Strike Warfare/Missile Systems Officer Device Identifier Shelf Expiration Date Model / Serial / Lot Vitoss Bimodal Foam Pack 10cc - [id number] Implanted:Qty : 2 on 10/11/2017 by Rosendo Nathan DO at [facility] N/A: Spine Lumbar SARAH : SPINE 03/08/2019 / / [id number] Vitoss Bimodal Foam Pack 10cc - [id number] Implanted:Qty : 1 on 10/11/2017 by Rosendo Nathan DO at [facility] N/A: Spine Lumbar SARAH : SPINE 02/05/2019 / / [id number] Screw Audie Bina 3 Ti Set - [id number] Implanted:Qty : 4 on 10/11/2017 by Rosendo Nathan DO at [facility] N/A: Spine Lumbar SARAH : SPINE [id number] / / 6.5 X 50 Mm Serrate Screws Implanted:Qty : 2 on 10/11/2017 by Rosendo Nathan DO at [facility] N/A: Spine Lumbar SARAH : SPINE [id number] / / 6.5 X 45 Mm Serrate Screw Implanted:Qty : 2 on 10/11/2017 by Rosedno Nathan, DO at [facility] N/A: Spine Lumbar SARAH : SPINE [id number] / / 9 X 23x 6 - 9mm Pl Implanted:Qty : 1 on 10/11/2017 by Rosendo Nathan, DO at [facility] N/A: Spine Lumbar SARAH : SPINE [id number] / / Shashank Bina 3 Ti 6x40mm - [id number] Implanted:Qty : 1 on 10/11/2017 by Rosendo Nathan, DO at [facility] N/A: Spine Lumbar SARAH : SPINE [id number] / / Shashank Bina 3 Ti 6x45mm - [id number] Implanted:Qty : 1 on 10/11/2017 by Rosnedo Nathan, DO at [facility] N/A: Spine Lumbar SARAH : SPINE [id number] / / documented as of this encounter [...] and were consensually agreed upon. Care Teams Configuration Technician Relationship Specialty Start Date End Date Myesha Cavanaugh MD [address] [place] [address] PCP - General Family Medicine 02/18/22 documented as of this encounter
--- OUTSIDE RECORDS SUMMARY | 2024-04-17 01:42 | External Medical Summary | Summary of Care ---
Author Name Unknown Organization [facility] [address] [place] [address] Phone [phone] Care Team Providers Care Clinical Appeals Specialist Name Role Phone Myesha Cavanaugh MD Primary Care Provid er Reason for Referral * Medication Prior Authorization - Pending Review Specialty Diagnoses / Procedures Referred By Contac t Referred To Contact Diagnoses History of lumbar fusion Spinal stenosis of lumbar region with neurogenic claudication Lumbar radiculitis Sacroiliac joint pain Myesha Cavanaugh MD [address] [place] [address] Referral ID Status Reason Start Date Expiration Date V isits Requested Visits Authorized [id number] Pending Review 999 999 Reason for Visit * Reason Onset Date Comments Post-Op 02/22/2024 Pain 02/22/2024 Advice 02/22/2024 Encounter Details Date Type Department Care Team (Late st Contact Info) Description 02/22/2024 Telephone [facility] [address] [place] [address] Myesha Cavanaugh MD [address] [place] [address] Post-Op; Pain; Advice Allergies Active Allergy Reactions Criticality Noted Date Comments Amoxicillin 01/05/2017 thrush Latex 06/20/2013 Hives, rash and swelling Lisinopril 06/02/2023 COUGH Nickel Rash 12/03/2020 documented as of this encounter (statuses as of 02/28/2024) Medications Medication Sig Dispensed Refills Start Date End Date Status Spiriva Respimat 2.5 MCG/ACT Inhalation Aerosol Solution (Tiotropium [place] Monohydrate) Inhale 2 Puffs by mouth daily. [...] as of this encounter (statuses as of 02/28/2024) Active Problems Problem Noted Date Diagnosed Date [...] as of this encounter (statuses as of 02/28/2024) Resolved Problems Problem Noted Date Diagnosed Date Resolved Date Food insecurity 04/19/2021 08/26/2021 Overview: Per [facility] Protocol Asthma exacerbation 03/30/2015 07/07/20 17 Moderate persistent asthma 11/09/2014 0 03/30/2015 Overview: PFT Pneumonitis 07/24/2014 01/06/2022 Asthma exacerbation 07/24/2014 03/30/20 15 documented as of this encounter (statuses as of 02/28/2024) Immunizations Name Administration Dates Next Due PPD [...] encounter Miscellaneous Notes * Telephone Encounter - Candace Rich PA-C - 02/28/2024 4:14 PM EDT Please call pharmacy = she can pay out of pocket for prescription as it will take a signed med use agreement and urine drug screen and a re-do of pa to get insurance to reconsider Please let patient know as well Candace Rich PA-C 02/28/2024 4:15 PM * Telephone Encounter - Faye Mcclellan PHARM Tech - 02/28/2024 4:08 PM EDT Pt calling back. Advised pt of message. Pt said she would like a call back from office. Pt doesn't understand why another dr can't take care of it. Thanks, Faye Mcclellan Rectification Printer [facility] 02/28/2024,4:09 PM * Telephone Encounter - Diya Ray CPhT - 02/28/2024 4:04 PM EDT Patient returning call to check status, I was able to reach office and Dr Cavanaugh is not in clinic today. I attempted to reach patient back but was unable to reach her. Please advise patient that Dr Cavanaugh is not in clinic today and the nurses will talk to her as soon as they can regarding this medication. Thank you, Diya Ray Rectification Printer [facility] 02/28/2024,4:06 PM * [...] payment. Please advise. Thank you, Diya Ray Rectification Printer [facility] 02/28/2024,2:49 PM * Telephone Encounter - Bere Bermudez MED ASSIST - 02/28/2024 10:58 AM EDT Are you okay with patient paying out of pocket? * Telephone Encounter - Jess Jimenez phone technician - 02/28/2024 10:46 AM EDT Patient called in today stating that she was called by the pharmacy that this is denied and they told her if the office calls and gives permission she can pick it up out of pocket, patient is asking if this is possible please advise . Thank you, Jess Jimenez Server Cashier I [facility] 02/28/2024,10:47 AM * Telephone Encounter - Serena Reagan CPhT - 02/28/2024 10:40 AM EDT Patient calling to check status of Prior Auth. Thank you, Serena Reagan, Rectification Printer I [facility] 02/28/2024,10:45 AM * Telephone Encounter - Sydnie Craft LPN - 02/27/2024 3:39 PM EDT Spoke to Ashly at [facility] and she states the prior [...] benzodiazepine. Prior authorization entered in PromptPA at [facility]. EOC# [id number] Please fax to [phone] before 4pm. Thank you, Rianna White CPhT II Leaf Fat Scraper [facility] 02/27/2024, 2:22 PM * Telephone Encounter - Sydnie Cratf LPN - 02/27/2024 1:39 PM EDT Last office note was sent to [facility] * Telephone Encounter - Ivelisse Londono phone technician - 02/27/2024 11:33 AM EDT pt calling to check on status of prior auth. Thank you, Ivelisse Londono CPhT Leaf Fat Scraper II [facility] 02/27/2024, 11:33 AM * Telephone Encounter - Jeison Singletary CPhT - 02/26/2024 8:08 AM EDT Patients insurance would like to inform the office that HYDROCODONE-ACETAMIN 7.5-325 is requiring additional information: clinical criteria. Prior authorization entered in PromptPA at [facility]. EOC# [id number] Please fax to [phone] before CHASITY. Thank you, Spencer Singletary (fish inspector) Leaf Fat Scraper III [facility] 02/26/2024, 8:08 AM * Telephone Encounter - Sydnie Craft LPN - 02/24/2024 9:06 AM EDT Left a message on [employer] answering machine that her script was sent to [facility]. * Telephone Encounter - Myesha Cavanaugh MD [...] since her surgery. Please call patient at [phone]. documented in this encounter Plan of Treatment Upcoming Encounters Date Type Department Care Team (Late st Contact Info) Description 03/15/2024 4:00 PM EDT Office Visit Nephrology, [facility] [place] [address] Chon Whitley MD [address] [facility] [place] [address] Scheduled Procedures Name Priority Associated Diagnoses Date/Ti [...] Pap Smear 07/07/2020 07/07/2017, 07/16/2013 COVID-19 Vaccine (1 - 2022- season) 2023 DTaP,Tdap,and Td Vaccines (2 - [...] this encounter Medical Devices Implanted Type Area Bag Washer Device Identifier Shelf Expiration Date Model / Serial / Lot Vitoss Bimodal Foam Pack 10cc - [id number] Implanted:Qty : 2 on 10/11/2017 by Rosendo Nathan DO at [facility] N/A: Spine Lumbar SARAH : SPINE 03/08/[id number] / / [id number] Vitoss Bimodal Foam Pack 10cc - [id number] Implanted:Qty : 1 on 10/11/2017 by Rosendo Nathan DO at [facility] N/A: Spine Lumbar SARAH : SPINE 02/05/2019 / / [id number] Screw Audie Bina 3 Ti Set - [id number] Implanted:Qty : 4 on 10/11/2017 by Rosendo Nathan DO at [facility] N/A: Spine Lumbar SARAH : SPINE [id number] / / 6.5 X 50 Mm Serrate Screws Implanted:Qty : 2 on 10/11/2017 by Rosendo Nathan DO at [facility] N/A: Spine Lumbar SARAH : SPINE [id number] / / 6.5 X 45 Mm Serrate Screw Implanted:Qty : 2 on 10/11/2017 by Rosendo Nathan DO at [facility] N/A: Spine Lumbar SARAH : SPINE [id number] / / 9 X 23x 6 - 9mm Pl Implanted:Qty : 1 on 10/11/2017 by Rosendo Nathan DO at [facility] N/A: Spine Lumbar SARAH : SPINE [id number] / / Shashank Bina 3 Ti 6x40mm - [id number] Implanted:Qty : 1 on 10/11/2017 by Rosendo Nathan, at [facility] N/A: Spine Lumbar SARAH : SPINE [id number] / / Shashank Bina 3 Ti 6x45mm - [id number] Implanted:Qty : 1 on 10/11/2017 by Rosendo Nathan, at [facility] N/A: Spine Lumbar SARAH : SPINE [id number] / / documented as of this encounter [...] and were consensually agreed upon. Care Teams Clinical Appeals Specialist Relationship Specialty Start Date End Date Myesha Cavanaugh MD [address] [place] [address] PCP - General Family Medicine 02/18/22 documented as of this encounter
--- OUTSIDE RECORDS SUMMARY | 2024-04-17 01:42 | External Medical Summary | Summary of Care ---
Author Name Unknown Organization [facility] Address [address] [place] [address] Phone [phone] Care Team Providers Care Technical Support Technician Name Role Phone Myesha Cavanaugh MD Primary Care Provid er Reason for Referral * Medication Prior Authorization - Pending Review Specialty Diagnoses / Procedures Referred By Contac t Referred To Contact Diagnoses History of lumbar fusion Spinal stenosis of lumbar region with neurogenic claudication Lumbar radiculitis Sacroiliac joint pain Myesha Cavanaugh MD [address] [place] [address] Referral ID Status Reason Start Date Expiration Date V isits Requested Visits Authorized [id number] Pending Review 999 999 Reason for Visit * Reason Onset Date Comments Post-Op 02/22/2024 Pain 02/22/2024 Advice 02/22/2024 Encounter Details Date Type Department Care Team (Late st Contact Info) Description 02/22/2024 Telephone [facility] [address] [place] [facility] [place] [address] Myesha Cavanaugh MD [address] [place] [facility] [place] [address] Post-Op; Pain; Advice Allergies Active Allergy Reactions Criticality Noted Date Comments Amoxicillin 01/05/2017 thrush Latex 06/20/2013 Hives, rash and swelling Lisinopril 06/02/2023 COUGH Nickel Rash 12/03/2020 documented as of this encounter (statuses as of 03/04/2024) Medications Medication Sig Dispensed Refills Start Date End Date Status Spiriva Respimat 2.5 MCG/ACT Inhalation Aerosol Solution (Tiotropium [place] Monohydrate) Inhale 2 Puffs by mouth daily. [...] LPN - 02/28/2024 5:[address] [facility] pharmacy and give a verbal order [...] take care of it. Thanks, Faye Mcclellan Metal Furniture Polisher [facility] 02/28/2024,4:09 PM [...] regarding this medication. Thank you, Diya Ray Metal Furniture Polisher [facility] 02/28/2024,4:06 PM * [...] payment. Please advise. Thank you, Diya Ray Metal Furniture Polisher [facility] 02/28/2024,2:49 PM * Telephone Encounter - Bere Bermudez MED ASSIST - 02/28/2024 10:58 AM EDT Are you okay with patient paying out of pocket? * Telephone Encounter - Jess Jimenez report developer - 02/28/2024 10:46 AM EDT Patient called in today stating that she was called by the pharmacy that this is denied and they told her if the office calls and gives permission she can pick it up out of pocket, patient is asking if this is possible please advise . Thank you, Jess Jimenez Internal Recruiter I [facility] 02/28/2024,10:47 AM * Telephone Encounter - Serena Reagan CPhT - 02/28/2024 10:40 AM EDT Patient calling to check status of Prior Auth. Thank you, Serena Reagan, Metal Furniture Polisher I [facility] 02/28/2024,10:45 AM * Telephone Encounter - Sydnie Cratf LPN - 02/27/2024 3:39 PM EDT Spoke to Ashly at [facility] and she states the prior auth was [...] benzodiazepine. Prior authorization entered in PromptPA at [facility]. EOC# [id number] Please fax to [phone] before 4pm. Thank you, Rianna White CPhT II Cnc Mechanic [facility] 02/27/2024, 2:22 PM * Telephone Encounter - Sydnie Craft LPN - 02/27/2024 1:39 PM EDT Last office note was sent to [facility] * Telephone Encounter - Ivelisse Londono PHARM Tech - 02/27/2024 11:33 AM EDT pt calling to check on status of prior auth. Thank you, Ivelisse Londono CPhT Cnc Mechanic II [facility] 02/27/2024, 11:33 AM * Telephone Encounter - Jeison Singletary CPhT - 02/26/2024 8:08 AM EDT Patients insurance would like to inform the office that HYDROCODONE-ACETAMIN 7.5-325 is requiring additional information: clinical criteria. Prior authorization entered in PromptPA at [facility]. [facility]# [id number] Please fax to [phone] before CHASITY. Thank you, Spencer Singletary ([facility]) Cnc Mechanic III [facility] 02/26/2024, 8:08 AM * Telephone Encounter - Sydnie Craft LPN - 02/24/2024 9:06 AM EDT Left a message on [employer] machine that her script was sent to [facility] pharmacy. * Telephone Encounter - Myesha [...] since her surgery. Please call patient at [phone]. documented in this encounter Plan of Treatment Upcoming Encounters Date Type Department Care Team (Late st Contact Info) Description 03/15/2024 4:00 PM EDT Office Visit Nephrology, [facility] [address] [facility] [place] [address] Chon Whitley MD [address] [facility] [place] [address] Scheduled Procedures Name Priority Associated Diagnoses Date/Ti [...] 07/07/2020 07/07/2017, 07/16/2013 COVID-19 Vaccine (1 - season) 2023 DTaP,Tdap,and Td Vaccines (2 - Td or Tdap) 06/20/2023 06/20/2013 Mammogram 01/18/2024 01/17/2023, 05/0 05/2023, 06/27/2013 Influenza Vaccine (FLU shot) (Season [...] this encounter Medical Devices Implanted Type Area Cigarette Tester Device Identifier Shelf Expiration Date Model / Serial / Lot Vitoss Bimodal Foam Pack 10cc - [id number] Implanted:Qty : 2 on 10/11/2017 by Rosendo Nathan, DO at [facility] N/A: Spine Lumbar SARAH : SPINE 03/08/201921018881-5452 / / [id number] Vitoss Bimodal Foam Pack 10cc - [id number] Implanted:Qty : 1 on 10/11/2017 by Rosendo Nathan, DO at [facility] N/A: Spine Lumbar SARAH : SPINE 02/05/201921013621-8597 / / [id number] Screw Audie Bina 3 Ti Set - [id number] Implanted:Qty : 4 on 10/11/2017 by Rosendo Nathan, DO at [facility] N/A: Spine Lumbar SARAH : SPINE [id number] / / 6.5 X 50 Mm Serrate Screws Implanted:Qty : 2 on 10/11/2017 by Rosendo Nathan DO at [facility] N/A: Spine Lumbar SARAH : SPINE [id number] / / 6.5 X 45 Mm Serrate Screw Implanted:Qty : 2 on 10/11/2017 by Rosendo Nathan DO at [facility] N/A: Spine Lumbar SARAH : SPINE [id number] / / 9 X 23x 6 - 9mm Pl Implanted:Qty : 1 on 10/11/2017 by Rosendo Nathan DO at [facility] N/A: Spine Lumbar SARAH : SPINE [id number] / / Shashank Bina 3 Ti 6x40mm - [id number] Implanted:Qty : 1 on 10/11/2017 by Rosendo Nathan DO at [facility] N/A: Spine Lumbar SARAH : SPINE [id number] / / Shashank Bina 3 Ti 6x45mm - [id number] Implanted:Qty : 1 on 10/11/2017 by Rosendo Nathan DO at [facility] N/A: Spine Lumbar SARAH : SPINE [id number] / / documented as of this encounter [...] and were consensually agreed upon. Care Teams Technical Support Technician Relationship Specialty Start Date End Date Myesha Cavanaugh MD [address] [place] [address] PCP - General Family Medicine 02/18/22 documented as of this encounter
--- OUTSIDE RECORDS SUMMARY | 2024-04-17 01:42 | External Medical Summary | Summary of Care ---
Author Name Unknown Organization [facility] Address [address] [place] [address] Phone [phone] Care Team Providers Care Ship Fitter Name Role Phone Myesha Cavanaugh MD Primary Care Provid er Reason for Referral * Medication Prior Authorization - Pending Review Specialty Diagnoses / Procedures Referred By Contac t Referred To Contact Diagnoses History of lumbar fusion Spinal stenosis of lumbar region with neurogenic claudication Lumbar radiculitis Sacroiliac joint pain Myesha Cavanaugh MD [address] [place] [address] Referral ID Status Reason Start Date Expiration Date V isits Requested Visits Authorized [id number] Pending Review 999 999 Reason for Visit * Reason Onset Date Comments Post-Op 02/22/2024 Pain 02/22/2024 Advice 02/22/2024 Encounter Details Date Type Department Care Team (Late st Contact Info) Description 02/22/2024 Telephone [facility] [address] [place] [facility] [place] [address] Myesha Cavanaugh MD [address] [place] [facility] [place] [address] Post-Op; Pain; Advice Allergies Active Allergy Reactions Criticality Noted Date Comments Amoxicillin 01/05/2017 thrush Latex 06/20/2013 Hives, rash and swelling Lisinopril 06/02/2023 COUGH Nickel Rash 12/03/2020 documented as of this encounter (statuses as of 02/28/2024) Medications Medication Sig Dispensed Refills Start Date End Date Status Spiriva Respimat 2.5 MCG/ACT Inhalation Aerosol Solution (Tiotropium [place] Monohydrate) Inhale 2 Puffs by mouth daily. [...] encounter Miscellaneous Notes * Telephone Encounter - Codie Salomon LPN - 02/28/2024 5:17 PM EDT Called [facility] pharmacy and give a verbal order that [...] take care of it. Thanks, Faye Mcclellan Draw Tender [facility] 02/28/2024,4:09 PM [...] regarding this medication. Thank you, Diya Ray Draw Tender [facility] 02/28/2024,4:06 PM * [...] payment. Please advise. Thank you, Diya Ray Draw Tender [facility] 02/28/2024,2:49 PM * Telephone Encounter - Bere Bermudez MED ASSIST - 02/28/2024 10:58 AM EDT Are you okay with patient paying out of pocket? * Telephone Encounter - Jess Jimenez PHARM Tech - 02/28/2024 10:46 AM EDT Patient called in today stating that she was called by the pharmacy that this is denied and they told her if the office calls and gives permission she can pick it up out of pocket, patient is asking if this is possible please advise . Thank you, Jess Jimenez Dispute Resolution Specialist I [facility] 02/28/2024,10:47 AM * Telephone Encounter - Serena Reagan CPhT - 02/28/2024 10:40 AM EDT Patient calling to check status of Prior Auth. Thank you, Serena Reagan, Draw Tender I [facility] 02/28/2024,10:45 AM * Telephone Encounter - Sydnie Craft LPN - 02/27/2024 3:39 PM EDT Spoke to Ashly at [facility] and she states the prior auth was [...] Prior authorization entered in PromptPA at [facility]. EOC# [id number] Please fax to [phone] before 4pm. Thank you, Rianna White CPhT II Cow Washer [facility] 02/27/2024, 2:22 PM * Telephone Encounter - Sydnie Craft LPN - 02/27/2024 1:39 PM EDT Last office note was sent to [facility] * Telephone Encounter - Ivelisse Londono study abroad advisor - 02/27/2024 11:33 AM EDT pt calling to check on status of prior auth. Thank you, Ivelisse Londono CPhT Cow Washer II [facility] 02/27/2024, 11:33 AM * Telephone Encounter - Jeison Singletary CPhT - 02/26/2024 8:08 AM EDT Patients insurance would like to inform the office that HYDROCODONE-ACETAMIN 7.5-325 is requiring additional information: clinical criteria. Prior authorization entered in PromptPA at [facility]. [facility]# [id number] Please fax to [phone] before [facility]. Thank you, Spencer Singletary ([facility]) Cow Washer III [facility] 02/26/2024, 8:08 AM * Telephone Encounter - Sydnie Craft LPN - 02/24/2024 9:06 AM EDT Left a message on [employer] answering machine that her script was sent to [facility] pharmacy. * Telephone Encounter - Myesha Cavanaugh [...] since her surgery. Please call patient at [phone]. documented in this encounter Plan of Treatment Upcoming Encounters Date Type Department Care Team (Late st Contact Info) Description 03/15/2024 4:00 PM EDT Office Visit [facility]rology[facility] [address] [place] [address] Chon Whit[place] MD [address] [facility] [place] [address] Scheduled Procedures Name Priority Associated Diagnoses Date/Ti [...] this encounter Medical Devices Implanted Type Area Industrial Engineering Device Identifier Shelf Expiration Date Model / Serial / Lot Vitoss Bimodal Foam Pack 10cc - [id number] Implanted:Qty : 2 on 10/11/2017 by Rosendo Nathan DO at [facility] N/A: Spine Lumbar SARAH : SPINE 03/08/2019 / / [id number] Vitoss Bimodal Foam Pack 10cc - [id number] Implanted:Qty : 1 on 10/11/2017 by Rosendo Nathan DO at [facility] N/A: Spine Lumbar SARAH : SPINE 02/05/2019 / / [id number] Screw Audie Bina 3 Ti Set - [id number] Implanted:Qty : 4 on 10/11/2017 by Rosendo Nathan DO at [facility] N/A: Spine Lumbar SARAH : SPINE [id number] / / 6.5 X 50 Mm Serrate Screws Implanted:Qty : 2 on 10/11/2017 by Rosendo Nathan DO at [facility] N/A: Spine Lumbar SARAH : SPINE [id number] / / 6.5 X 45 Mm Serrate Screw Implanted:Qty : 2 on 10/11/2017 by Rosendo Nathan, DO at [facility] N/A: Spine Lumbar SARAH : SPINE [id number] / / 9 X 23x 6 - 9mm Pl Implanted:Qty : 1 on 10/11/2017 by Rosendo Nathan, DO at [facility] N/A: Spine Lumbar SARAH : SPINE [id number] / / Shashank Bian 3 Ti 6x40mm - [id number] Implanted:Qty : 1 on 10/11/2017 by Rosendo Nathan, DO at [facility] N/A: Spine Lumbar SARAH : SPINE [id number] / / Shashank Bina 3 Ti 6x45mm - [id number] Implanted:Qty : 1 on 10/11/2017 by Rosendo Nathan, DO at [facility] N/A: Spine Lumbar SARAH : SPINE [id number] / / documented as of this encounter [...] and were consensually agreed upon. Care Teams Ship Fitter Relationship Specialty Start Date End Date Myesha Cavanaugh MD [address] [facility] [place] [address] PCP - General Family Medicine 02/18/22 documented as of this encounter
--- OUTSIDE RECORDS SUMMARY | 2024-04-17 01:42 | External Medical Summary ---
Author Name Unknown Address Unknown Organization K01:[facility] [place] [facility] [place] [facility] [address] [facility] [address] Laboratory Report Ordering Provider Test Date Status RODRIGUEZ DENNEY 03/25/2024 18:47:31 Final Cutoff Concentration:
D rug Level
THC-COOH 10 ng/mL

This test was developed and its performance characteristics determined by [email or web address]. It has not been cleared or approved by the [place] Food and Drug Administration.
null Observation Date Value Abnormality Reference (Units ) Status METHODOLOGY 03/25/2024 18:47:31 LC-MS/MS Final Cannabinoids, Urine confirmatory 03/25/2024 18:47:31 120 Above high normal Negative (ng/mL) Final Performing Location [facility] [place] [facility] [address] [facility] [address]
--- OUTSIDE RECORDS SUMMARY | 2024-04-17 01:43 | External Medical Summary | Summary of Care ---
Author Name Unknown Organization [facility] Address [address] [place] [address] Phone [phone] Care Team Providers Care Egg Setter Name Role Phone Myesha Cavanaugh MD Primary Care Provid er Reason for Referral * Medication Prior Authorization - Pending Review Specialty Diagnoses / Procedures Referred By Contac t Referred To Contact Diagnoses History of lumbar fusion Spinal stenosis of lumbar region with neurogenic claudication Lumbar radiculitis Sacroiliac joint pain Myesha Cavanaugh MD [address] [place] [address] Referral ID Status Reason Start Date Expiration Date V isits Requested Visits Authorized [id number] Pending Review 999 999 Reason for Visit * Reason Onset Date Comments Post-Op 02/22/2024 Pain 02/22/2024 Advice 02/22/2024 Encounter Details Date Type Department Care Team (Late st Contact Info) Description 02/22/2024 Telephone [facility] [address] [place] [facility] [place] [address] Myesha Cavanaugh MD [address] [place] [facility] [place] [address] Post-Op; Pain; Advice Allergies Active Allergy Reactions Criticality Noted Date Comments Amoxicillin 01/05/2017 thrush Latex 06/20/2013 Hives, rash and swelling Lisinopril 06/02/2023 COUGH Nickel Rash 12/03/2020 documented as of this encounter (statuses as of 02/28/2024) Medications Medication Sig Dispensed Refills Start Date End Date Status Spiriva Respimat 2.5 MCG/ACT Inhalation Aerosol Solution (Tiotropium [place] Monohydrate) Inhale 2 Puffs by mouth daily. [...] encounter Miscellaneous Notes * Telephone Encounter - Faye Mcclellan PHARM Tech - 02/28/2024 4:08 PM EDT Pt calling back. Advised pt of message. Pt said she would like a call back from office. Pt doesn't understand why another dr can't take care of it. Thanks, Faye Mcclellan Linderman Machine Operator [facility] 02/28/2024,4:09 PM [...] regarding this medication. Thank you, Diya Ray Linderman Machine Operator [facility] 02/28/2024,4:06 PM * [...] payment. Please advise. Thank you, Diya Ray Linderman Machine Operator [facility] 02/28/2024,2:49 PM * Telephone Encounter - Bere Bermudez MED ASSIST - 02/28/2024 10:58 AM EDT Are you okay with patient paying out of pocket? * Telephone Encounter - Jess Jimenez brick burner head - 02/28/2024 10:46 AM EDT Patient called in today stating that she was called by the pharmacy that this is denied and they told her if the office calls and gives permission she can pick it up out of pocket, patient is asking if this is possible please advise . Thank you, Jess Jimenez Channel Program Manager I [facility] 02/28/2024,10:47 AM * Telephone Encounter - Serena Reagan CPhT - 02/28/2024 10:40 AM EDT Patient calling to check status of Prior Auth. Thank you, Serena Reagan, Linderman Machine Operator I [facility] 02/28/2024,10:45 AM * Telephone Encounter - Sydnie Craft LPN - 02/27/2024 3:39 PM EDT Spoke to Ashly at [facility] and she states the prior [...] Prior authorization entered in PromptPA at [facility]. EOC# [id number] Please fax to [phone] before 4pm. Thank you, Rianna White CPhT II Health And Safety Inspector [facility] 02/27/2024, 2:22 PM * Telephone Encounter - Sydnie Craft LPN - 02/27/2024 1:39 PM EDT Last office note was sent to [facility] * Telephone Encounter - Ivelisse Londono brick burner head - 02/27/2024 11:33 AM EDT pt calling to check on status of prior auth. Thank you, Ivelisse Londono CPhT Health And Safety Inspector II [facility] 02/27/2024, 11:33 AM * Telephone Encounter - Jeison Singletary CPhT - 02/26/2024 8:08 AM EDT Patients insurance would like to inform the office that HYDROCODONE-ACETAMIN 7.5-325 is requiring additional information: clinical criteria. Prior authorization entered in PromptPA at [facility]. EOC# [id number] Please fax to [phone] before [facility]. Thank you, Spencer BARRIOShT) Health And Safety Inspector III [facility] 02/26/2024, 8:08 AM * Telephone Encounter - Sydnie Craft LPN - 02/24/2024 9:06 AM EDT Left a message on detail answering machine that her script was sent to [facility] pharmacy. * Telephone Encounter - Myesha [...] since her surgery. Please call patient at [phone]. documented in this encounter Plan of Treatment Upcoming Encounters Date Type Department Care Team (Late st Contact Info) Description 03/15/2024 4:00 PM EDT Office Visit [facility] [address] [place] [address] Chon Whitley MD [address] [place] [address] Scheduled Procedures Name Priority Associated Diagnoses Date/Ti [...] this encounter Medical Devices Implanted Type Area Ticket Machine Operator Device Identifier Shelf Expiration Date Model / Serial / Lot Vitoss Bimodal Foam Pack 10cc - [id number] Implanted:Qty : 2 on 10/11/2017 by Rosendo Nathan DO at [facility] N/A: Spine Lumbar SARAH : SPINE 03/08/2019 / / [id number] Vitoss Bimodal Foam Pack 10cc - [id number] Implanted:Qty : 1 on 10/11/2017 by Rosendo Nathan DO at [facility] N/A: Spine Lumbar SARAH : SPINE 02/05/2019 / / [id number] Screw Audie Bina 3 Ti Set - [id number] Implanted:Qty : 4 on 10/11/2017 by Rosendo Nathan DO at [facility] N/A: Spine Lumbar SARAH : SPINE [id number] / / 6.5 X 50 Mm Serrate Screws Implanted:Qty : 2 on 10/11/2017 by Rosendo Nathan DO at [facility] N/A: Spine Lumbar SARAH : SPINE [id number] / / 6.5 X 45 Mm Serrate Screw Implanted:Qty : 2 on 10/11/2017 by Rosendo Nathan DO at [facility] N/A: Spine Lumbar SARAH : SPINE [id number] / / 9 X 23x 6 - 9mm Pl Implanted:Qty : 1 on 10/11/2017 by Rosendo Nathan DO at [facility] N/A: Spine Lumbar SARAH : SPINE [id number] / / Shashank Bina 3 Ti 6x40mm - [id number] Implanted:Qty : 1 on 10/11/2017 by Rosendo Nathan DO at [facility] N/A: Spine Lumbar SARAH : SPINE [id number] / / Shashank Bina 3 Ti 6x45mm - [id number] Implanted:Qty : 1 on 10/11/2017 by Rosendo Nathan DO at [facility] N/A: Spine Lumbar SARAH : SPINE [id number] / / documented as of this encounter [...] and were consensually agreed upon. Care Teams Egg Setter Relationship Specialty Start Date End Date Myesha Cavanaugh MD [address] [facility] [place] [place] [address] PCP - General Family Medicine 02/18/22 documented as of this encounter
--- OUTSIDE RECORDS SUMMARY | 2024-04-17 01:43 | External Medical Summary | Summary of Care ---
Author Name Unknown Organization [facility] Address [address] [place] [address] Phone [phone] Care Team Providers Care Associate Professor Of Psychology Name Role Phone Myesha Cavanaugh MD Primary Care Provid er Reason for Referral * Medication Prior Authorization - Pending Review Specialty Diagnoses / Procedures Referred By Contac t Referred To Contact Diagnoses History of lumbar fusion Spinal stenosis of lumbar region with neurogenic claudication Lumbar radiculitis Sacroiliac joint pain Myesha Cavanaugh MD [address] [place] [address] Referral ID Status Reason Start Date Expiration Date V isits Requested Visits Authorized [id number] Pending Review 999 999 Reason for Visit * Reason Onset Date Comments Post-Op 02/22/2024 Pain 02/22/2024 Advice 02/22/2024 Encounter Details Date Type Department Care Team (Late st Contact Info) Description 02/22/2024 Telephone [facility] [address] [facility] [place] [address] Myesha Cavanaugh MD [address] [facility] [place] [address] Post-Op; Pain; Advice Allergies Active Allergy Reactions Criticality Noted Date Comments Amoxicillin 01/05/2017 thrush Latex 06/20/2013 Hives, rash and swelling Lisinopril 06/02/2023 COUGH Nickel Rash 12/03/2020 documented as of this encounter (statuses as of 02/28/2024) Medications Medication Sig Dispensed Refills Start Date End Date Status Spiriva Respimat 2.5 MCG/ACT Inhalation Aerosol Solution (Tiotropium [place] Monohydrate) Inhale 2 Puffs by mouth daily. [...] encounter Miscellaneous Notes * Telephone Encounter - Diya Ray CPhT [...] regarding this medication. Thank you, Diya Ray Global Sales Director [facility] 02/28/2024,4:06 PM * [...] payment. Please advise. Thank you, Diya Ray Global Sales Director [facility] 02/28/2024,2:49 PM * Telephone Encounter - Bere Bermudez MED ASSIST - 02/28/2024 10:58 AM EDT Are you okay with patient paying out of pocket? * Telephone Encounter - Jess Jimenez, criminal investigative agent - 02/28/2024 10:46 AM EDT Patient called in today stating that she was called by the pharmacy that this is denied and they told her if the office calls and gives permission she can pick it up out of pocket, patient is asking if this is possible please advise . Thank you, Jess Jimenez Digital Circuit Designer I [facility] 02/28/2024,10:47 AM * Telephone Encounter - Serena Reagan CPhT - 02/28/2024 10:40 AM EDT Patient calling to check status of Prior Auth. Thank you, Serena Reagan, Global Sales Director I [facility] 02/28/2024,10:45 AM * Telephone Encounter - Sdynie Craft LPN - 02/27/2024 3:39 PM EDT Spoke to Ashly at [facility] and she states the prior auth was [...] benzodiazepine. Prior authorization entered in PromptPA at [facility]. EOC# [id number] Please fax to [phone] before 4pm. Thank you, Rianna White CPhT II Brim Pouncing Machine Operator [facility] 02/27/2024, 2:22 PM * Telephone Encounter - Sydnie Craft LPN - 02/27/2024 1:39 PM EDT Last office note was sent to [facility] * Telephone Encounter - Ivelisse Londono PHARM Tech - 02/27/2024 11:33 AM EDT pt calling to check on status of prior auth. Thank you, Ivelisse Londono CPhT Brim Pouncing Machine Operator II [facility] 02/27/2024, 11:33 AM * Telephone Encounter - Jeison Singletary CPhT - 02/26/2024 8:08 AM EDT Patients insurance would like to inform the office that HYDROCODONE-ACETAMIN 7.5-325 is requiring additional information: clinical criteria. Prior authorization entered in PromptPA at [facility]. [facility]# [id number] Please fax to [phone] before [facility]. Thank you, Spencer Singletary (Mauricio) Brim Pouncing Machine Operator III [facility] 02/26/2024, 8:08 AM * Telephone Encounter - Sydnie Craft LPN - 02/24/2024 9:06 AM EDT Left a message on detail answering machine that her script was sent to [facility] pharmacy. * Telephone Encounter - Myesha [...] since her surgery. Please call patient at [phone]. documented in this encounter Plan of Treatment Upcoming Encounters Date Type Department Care Team (Late st Contact Info) Description 03/15/2024 4:00 PM EDT Office Visit [facility] [address] [place] [address] Chon Whitley MD [address] [place] [address] Scheduled Procedures Name Priority Associated Diagnoses Date/Ti [...] this encounter Medical Devices Implanted Type Area Order To Delivery Supervisor Device Identifier Shelf Expiration Date Model / Serial / Lot Vitoss Bimodal Foam Pack 10cc - [id number] Implanted:Qty : 2 on 10/11/2017 by Rosendo Nathan, DO at [facility] N/A: Spine Lumbar SARAH : SPINE 03/08/2019 [id number] / / [id number] Vitoss Bimodal Foam Pack 10cc - [id number] Implanted:Qty : 1 on 10/11/2017 by Rosendo Nathan, DO at [facility] N/A: Spine Lumbar SARAH : SPINE 02/05/2019 [id number] / / [id number] Screw Audie Bina 3 Ti Set - [id number] Implanted:Qty : 4 on 10/11/2017 by Rosendo Nathan DO at [facility] N/A: Spine Lumbar SARAH : SPINE [id number] / / 6.5 X 50 Mm Serrate Screws Implanted:Qty : 2 on 10/11/2017 by Rosendo Nathan DO at [facility] N/A: Spine Lumbar SARAH : SPINE [id number] / / 6.5 X 45 Mm Serrate Screw Implanted:Qty : 2 on 10/11/2017 by Rosendo Nathan DO at [facility] N/A: Spine Lumbar SARAH : SPINE [id number] / / 9 X 23x 6 - 9mm Pl Implanted:Qty : 1 on 10/11/2017 by Rosendo Nathan DO at [facility] N/A: Spine Lumbar SARAH : SPINE [id number] / / Shashank Bina 3 Ti 6x40mm - [id number] Implanted:Qty : 1 on 10/11/2017 by Rosendo Nathan DO at [facility] N/A: Spine Lumbar SARAH : SPINE [id number] / / Shashank Bina 3 Ti 6x45mm - [id number] Implanted:Qty : 1 on 10/11/2017 by Rosendo Nathan DO at [facility] N/A: Spine Lumbar SARAH : SPINE [id number] / / documented as of this encounter [...] and were consensually agreed upon. Care Teams Associate Professor Of Psychology Relationship Specialty Start Date End Date Myesha Cavanaugh MD [address] [facility] [place] [id number] PCP - General Family Medicine 02/18/22 documented as of this encounter
--- OUTSIDE RECORDS SUMMARY | 2024-04-17 01:43 | External Medical Summary | Summary of Care ---
Author Name Unknown Organization [facility] Address [address] [place] [address] Phone [phone] Care Team Providers Care Controlled Area Checker Name Role Phone Myesha Cavanaugh MD Primary Care Provid er Reason for Referral * Medication Prior Authorization - Pending Review Specialty Diagnoses / Procedures Referred By Contac t Referred To Contact Diagnoses History of lumbar fusion Spinal stenosis of lumbar region with neurogenic claudication Lumbar radiculitis Sacroiliac joint pain Myesha Cavanaugh MD [address] [place] [address] Referral ID Status Reason Start Date Expiration Date V isits Requested Visits Authorized [id number] Pending Review 999 999 Reason for Visit * Reason Onset Date Comments Post-Op 02/22/2024 Pain 02/22/2024 Advice 02/22/2024 Encounter Details Date Type Department Care Team (Late st Contact Info) Description 02/22/2024 Telephone [facility] [address] [facility] [place] [address] Myesha Cavanaugh MD [address] [facility] [place] [address] Post-Op; Pain; Advice Allergies Active Allergy Reactions Criticality Noted Date Comments Amoxicillin 01/05/2017 thrush Latex 06/20/2013 Hives, rash and swelling Lisinopril 06/02/2023 COUGH Nickel Rash 12/03/2020 documented as of this encounter (statuses as of 02/28/2024) Medications Medication Sig Dispensed Refills Start Date End Date Status Spiriva Respimat 2.5 MCG/ACT Inhalation Aerosol Solution (Tiotropium [place] Monohydrate) Inhale 2 Puffs by mouth daily. [...] take care of it. Thanks, Faye Mcclellan Pattern Developer [facility] 02/28/2024,4:09 PM [...] regarding this medication. Thank you, Diya Ray Pattern Developer [facility] 02/28/2024,4:06 PM * [...] payment. Please advise. Thank you, Diya Ray Pattern Developer [facility] 02/28/2024,2:49 PM * Telephone Encounter - Bere Bermudez MED ASSIST - 02/28/2024 10:58 AM EDT Are you okay with patient paying out of pocket? * Telephone Encounter - Jess Jimenez credit negotiator - 02/28/2024 10:46 AM EDT Patient called in today stating that she was called by the pharmacy that this is denied and they told her if the office calls and gives permission she can pick it up out of pocket, patient is asking if this is possible please advise . Thank you, Jess Jimenez Reconnaissance Crewmember I [facility] 02/28/2024,10:47 AM * Telephone Encounter - Serena Reagan CPhT - 02/28/2024 10:40 AM EDT Patient calling to check status of Prior Auth. Thank you, Serena Reagan, Pattern Developer I [facility] 02/28/2024,10:45 AM * Telephone Encounter - Sydnie Craft LPN - 02/27/2024 3:39 PM EDT Spoke to Ashly at [facility] and she states the prior auth [...] benzodiazepine. Prior authorization entered in PromptPA at [facility]. EOC# [id number] Please fax to [phone] before 4pm. Thank you, Rianna White CPhT II Train Reservation Clerk [facility] 02/27/2024, 2:22 PM * Telephone Encounter - Sydnie Craft LPN - 02/27/2024 1:39 PM EDT Last office note was sent to [facility] * Telephone Encounter - Ivelisse Londono credit negotiator - 02/27/2024 11:33 AM EDT pt calling to check on status of prior auth. Thank you, Ivelisse Londono CPhT Train Reservation Clerk II [facility] 02/27/2024, 11:33 AM * Telephone Encounter - Jeison Singletary CPhT - 02/26/2024 8:08 AM EDT Patients insurance would like to inform the office that HYDROCODONE-ACETAMIN 7.5-325 is requiring additional information: clinical criteria. Prior authorization entered in PromptPA at [facility]. EOC# [id number] Please fax to [phone] [facility]. Thank you, Spencer BARRIOShT) Train Reservation Clerk III [facility] 02/26/2024, 8:08 AM * Telephone Encounter - Sydnie Craft LPN - 02/24/2024 9:06 AM EDT Left a message on detail answering machine that her script was sent to [facility] pharmacy. * Telephone Encounter - Myesha [...] since her surgery. Please call patient at [phone]. documented in this encounter Plan of Treatment Upcoming Encounters Date Type Department Care Team (Late st Contact Info) Description 03/15/2024 4:00 PM EDT Office Visit NephCharbel [facility]deras [address] [place] [address] Chon Whitley MD [address] [place] [address] Scheduled Procedures Name Priority Associated Diagnoses Date/Ti [...] this encounter Medical Devices Implanted Type Area Air Brake Mechanic Device Identifier Shelf Expiration Date Model / Serial / Lot Vitoss Bimodal Foam Pack 10cc - [id number] Implanted:Qty : 2 on 10/11/2017 by Rosendo Nathan DO at [facility] N/A: Spine Lumbar SARAH : SPINE 03/08/2019 / / [id number] Vitoss Bimodal Foam Pack 10cc - [id number] Implanted:Qty : 1 on 10/11/2017 by Rosendo Nathan DO at [facility] N/A: Spine Lumbar SARAH : SPINE 02/05/2019 / / [id number] Screw Audie Bina 3 Ti Set - [id number] Implanted:Qty : 4 on 10/11/2017 by Rosendo Nathan DO at [facility] N/A: Spine Lumbar SARAH : SPINE [id number] / / 6.5 X 50 Mm Serrate Screws Implanted:Qty : 2 on 10/11/2017 by Rosendo Nathan DO at [facility] N/A: Spine Lumbar SARAH : SPINE [id number] / / 6.5 X 45 Mm Serrate Screw Implanted:Qty : 2 on 10/11/2017 by Rosendo Nathan DO at [facility] N/A: Spine Lumbar SARAH : SPINE [id number] / / 9 X 23x 6 - 9mm Pl Implanted:Qty : 1 on 10/11/2017 by Rosendo Nathan DO at [facility] N/A: Spine Lumbar SARAH : SPINE [id number] / / Shashank Bina 3 Ti 6x40mm - [id number] Implanted:Qty : 1 on 10/11/2017 by Rosendo Nathan DO at [facility] N/A: Spine Lumbar SARAH : SPINE [id number] / / Shashank Bina 3 Ti 6x45mm - [id number] Implanted:Qty : 1 on 10/11/2017 by Rosendo Nathan DO at [facility] N/A: Spine Lumbar SARAH : SPINE [id number] / / documented as of this encounter [...] and were consensually agreed upon. Care Teams Controlled Area Checker Relationship Specialty Start Date End Date Myesha Cavanaugh MD [address] [facility] [place] [address] PCP - General Family Medicine 02/18/22 documented as of this encounter
--- OUTSIDE RECORDS SUMMARY | 2024-04-17 01:43 | External Medical Summary | Summary of Care ---
Author Name Unknown Organization [facility] Address [address] [facility] [address] [place] [address] Phone [phone] Care Team Providers Care Communications Project Lead Name Role Phone Myesha Cavanaugh MD Primary Care Provid er Reason for Referral * Medication Prior Authorization - Pending Review Specialty Diagnoses / Procedures Referred By Contac t Referred To Contact Diagnoses History of lumbar fusion Spinal stenosis of lumbar region with neurogenic claudication Lumbar radiculitis Sacroiliac joint pain Myesha Cavanaugh MD [address] [place] [address] Referral ID Status Reason Start Date Expiration Date V isits Requested Visits Authorized [id number] Pending Review 999 999 Reason for Visit * Reason Onset Date Comments Post-Op 02/22/2024 Pain 02/22/2024 Advice 02/22/2024 Encounter Details Date Type Department Care Team (Late st Contact Info) Description 02/22/2024 Telephone [facility] [address] [place] [facility] [place] [address] Myesha Cavanaugh MD [address] [place] [facility] [place] [address] Post-Op; Pain; Advice Allergies Active Allergy Reactions Criticality Noted Date Comments Amoxicillin 01/05/2017 thrush Latex 06/20/2013 Hives, rash and swelling Lisinopril 06/02/2023 COUGH Nickel Rash 12/03/2020 documented as of this encounter (statuses as of 02/28/2024) Medications Medication Sig Dispensed Refills Start Date End Date Status Spiriva Respimat 2.5 MCG/ACT Inhalation Aerosol Solution (Tiotropium [place] Monohydrate) Inhale 2 Puffs by mouth daily. [...] payment. Please advise. Thank you, Diya Ray Instrument Mechanics Supervisor [facility] 02/28/2024,2:49 PM * Telephone Encounter - Bere Bermudez MED ASSIST - 02/28/2024 10:58 AM EDT Are you okay with patient paying out of pocket? * Telephone Encounter - Jess Jimenez senior engineering specialist - 02/28/2024 10:46 AM EDT Patient called in today stating that she was called by the pharmacy that this is denied and they told her if the office calls and gives permission she can pick it up out of pocket, patient is asking if this is possible please advise . Thank you, Jess Jimenez Integration Developer I [facility] ([facility]) 02/28/2024,10:47 AM * Telephone Encounter - Serena Reagan CPhT - 02/28/2024 10:40 AM EDT Patient calling to check status of Prior Auth. Thank you, Serena Reagan, Instrument Mechanics Supervisor I [facility] ([facility]) 02/28/2024,10:45 AM * Telephone Encounter - Sydnie Craft LPN - 02/27/2024 3:39 PM EDT Spoke to Ashly at [facility] and she states the prior auth was denied and denial letter will be sent to our office. * Telephone Encounter - Rianna White CPhT - 02/27/2024 2:22 PM EDT Patients insurance would like to inform the office that hydrocodone-apap is requiring additional information: urine drug screen, if pt is experiencing improvement on medication and if pt is benzodiazepine. Prior authorization entered in Valentin Uzhun at [facility]. EOC# [id number] Please fax to [phone] before 4pm. Thank you, Rianna White CPhT II Seam Steamer [facility]) 02/27/2024, 2:22 PM * Telephone Encounter - Sydnie Craft LPN - 02/27/2024 1:39 PM EDT Last office note was sent to [facility] * Telephone Encounter - Ivelisse Londono senior engineering specialist - 02/27/2024 11:33 AM EDT pt calling to check on status of prior auth. Thank you, Ivelisse Londono CPhT Seam Steamer II [facility] 02/27/2024, 11:33 AM * Telephone Encounter - Jeison Singletary CPhT - 02/26/2024 8:08 AM EDT Patients insurance would like to inform the office that HYDROCODONE-ACETAMIN 7.5-325 is requiring additional information: clinical criteria. Prior authorization entered in Valentin Uzhun at [facility]. EOC# [id number] Please fax to [phone] before [facility]. Thank you, Spencer Singletary ([facility]) Seam Steamer III [facility]) 02/26/2024, 8:08 AM * Telephone Encounter - Sydnie Craft LPN - 02/24/2024 9:06 AM EDT Left a message on [employer] machine that her script was sent to [facility]. * Telephone Encounter - Myesha Cavanaugh MD [...] since her surgery. Please call patient at [phone]. documented in this encounter Plan of Treatment Upcoming Encounters Date Type Department Care Team (Late st Contact Info) Description 03/15/2024 4:00 PM EDT Office Visit Nephrology, [facility] [address] [place] [address] Chon Whitley MD [address] [place] [address] Scheduled Procedures Name Priority Associated Diagnoses Date/Ti [...] this encounter Medical Devices Implanted Type Area Visual Supervisor Device Identifier Shelf Expiration Date Model / Serial / Lot Vitoss Bimodal Foam Pack 10cc - [id number] Implanted:Qty : 2 on 10/11/2017 by Rosendo Nathan, DO at [facility] N/A: Spine Lumbar SARAH : SPINE 03/08/2019 / / [id number] Vitoss Bimodal Foam Pack 10cc - [id number] Implanted:Qty : 1 on 10/11/2017 by Rosendo Nathan, DO at [facility] N/A: Spine Lumbar SARAH : SPINE 02/05/2019 / / [id number] Screw Audie Bina 3 Ti Set - [id number] Implanted:Qty : 4 on 10/11/2017 by Rosendo Nathan DO at [facility] N/A: Spine Lumbar SARAH : SPINE [id number] / / 6.5 X 50 Mm Serrate Screws Implanted:Qty : 2 on 10/11/2017 by Rosendo Nathan, DO at [facility] N/A: Spine Lumbar SARAH : SPINE [id number] / / 6.5 X 45 Mm Serrate Screw Implanted:Qty : 2 on 10/11/2017 by Rosendo Nathan, DO at [facility] N/A: Spine Lumbar SARAH : SPINE [id number] / / 9 X 23x 6 - 9mm Pl Implanted:Qty : 1 on 10/11/2017 by Rosendo Nathan, DO at [facility] N/A: Spine Lumbar SARAH : SPINE [id number] / / Shashank Bina 3 Ti 6x40mm - [id number] Implanted:Qty : 1 on 10/11/2017 by Rosendo Nathan, DO at [facility] N/A: Spine Lumbar SARAH : SPINE [id number] / / Shashank Bina 3 Ti 6x45mm - [id number] Implanted:Qty : 1 on 10/11/2017 by Rosendo Nathan, DO at [facility] N/A: Spine Lumbar SARAH : SPINE [id number] / / documented as of this encounter [...] and were consensually agreed upon. Care Teams Communications Project Lead Relationship Specialty Start Date End Date Myesha Cavanaugh MD [address] [place] [facility] [place] [address] PCP - General Family Medicine 02/18/22 documented as of this encounter
--- OUTSIDE RECORDS SUMMARY | 2024-04-17 01:44 | External Medical Summary | Summary of Care ---
Author Name Unknown Organization [facility] Address [address] [place] [address] Phone [phone] Care Team Providers Care Special Investigation Unit Investigator Name Role Phone Myesha Cavanaugh MD Primary Care Provid er Reason for Visit * Reason Onset Date Comments Medication Refill 02/28/2024 Encounter Details Date Type Department Care Team (Late st Contact Info) Description 02/28/2024 Telephone [facility] [address] [place] [id number] Myesha Cavanaugh MD [address] [place] [address] Medication Refill Allergies Active Allergy Reactions Criticality Noted Date Comments Amoxicillin 01/05/2017 thrush Latex 06/20/2013 Hives, rash and swelling Lisinopril 06/02/2023 COUGH Nickel Rash 12/03/2020 documented as of this encounter (statuses as of 02/28/2024) Medications Medication Sig Dispensed Refills Start Date End Date Status Spiriva Respimat 2.5 MCG/ACT Inhalation Aerosol Solution (Tiotropium [place] Monohydrate) Inhale 2 Puffs by mouth daily. 12 g 3 09/23/2021 Active Additional Information Patient not taking.Reported on 09/26/2023 hydrOXYzine HCl 50 MG Oral TabletIndications:A nxiety,Pruritus Take 1 Tablet by mouth every 6 hours as needed for Itching or Anxiety. 60 Tablet 5 05/02/2023 Active Meloxicam 15 MG Oral TabletIndications:F ibromyalgia,Lumbar radiculitis Take 1 Tablet by mouth daily. Take 1-2 tabs daily for pain. 90 Tablet 1 05/02/2023 Active Additional Information Patient not taking.Reported on 11/06/2023 Compressor NebulizerIndication s:Moderate persistent asthma without complication,COPD, 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 Use as directed. 1 Each 1 05/26/2023 Active Additional Information Patient not taking.Reported on 12/05/2023 Benzonatate 100 MG Oral CapsuleIndications: Upper respiratory tract infection, unspecified type,Acute cough Take 1 Capsule by mouth 3 times a day as needed for Cough (may make you sleepy). 15 Capsule 06/01/2023 Active Additional Information Patient not taking.Reported on 06/14/2023 amLODIPine Besylate 5 MG Oral Tablet (Norvasc)Indication [...] 09/26/2023 Azithromycin 250 MG Oral Tablet (Zithromax Z-Nabil)Indications:P rotracted URI,Fatigue, unspecified type Take two tablets by mouth on first day, then 1 tablet daily until gone 6 Tablet 06/27/2023 Active Additional Information Patient not taking.Reported on 09/26/2023 Montelukast Sodium 10 MG Oral Tablet (Singulair)Indicati ons:Chronic cough Take 1 Tablet by mouth at bedtime. 90 Tablet 3 09/01/2023 Active Pregabalin 150 MG Oral Capsule (Lyrica)Indications :Spinal [...] Active Ondansetron HCl 4 MG Oral Tablet (Zofran)Indications :Nausea and vomiting, unspecified vomiting type TAKE 1 [...] 20 MG Oral Capsule Delayed Release (PriLOSEC)Indicatio ns:Nausea and vomiting, unspecified vomiting type,Gastroesophage al reflux disease without esophagitis Take 1 Capsule [...] FOR WHEEZING 36 g 1 02/16/2024 Active HYDROcodone-Acetami nophen 7.5-325 MG Oral TabletIndications:H istory of lumbar fusion,Spinal stenosis of lumbar region with neurogenic claudication,Lumbar radiculitis,Sacroil iac joint pain Take 1 Tablet by mouth daily as needed for Pain, Severe. 30 Tablet 02/23/2024 Active documented as of this encounter (statuses [...] encounter Miscellaneous Notes * Telephone Encounter - Dorene Rascon PHARM Tech - 02/28/2024 1:40 PM EDT Pt calling to request hydrocodone. Informed pt that RX is available at their pharmacy. Pt verbalized understanding and stated they will check with their pharmacy regarding this medication. Thank you, Dorene Rascon, [facility] Paraeducator II [facility]) 02/28/2024,1:42 PM * Telephone Encounter - Lurdes Kovacs OSA - 02/28/2024 12:18 PM EDT Denial 02/28/24 Rec Denial due to not having adequate medical documentation? Placed paperwork in provider's mail bin. documented in this encounter Plan of Treatment Upcoming Encounters Date Type Department Care Team (Late st Contact Info) Description 03/15/2024 4:00 PM EDT Office Visit Nephrology, [facility] Marquis [address] [place] [address] Chon Whitley MD [address] [facility] [place] [address] Scheduled Procedures Name Priority Associated Diagnoses Date/Ti [...] this encounter Medical Devices Implanted Type Area Military Professional Device Identifier Shelf Expiration Date Model / Serial / Lot Vitoss Bimodal Foam Pack 10cc - [id number] Implanted:Qty : 2 on 10/11/2017 by Rosendo Nathan DO at [facility] N/A: Spine Lumbar SARAH : SPINE 03/08/2019 / / [id number] Vitoss Bimodal Foam Pack 10cc - [id number] Implanted:Qty : 1 on 10/11/2017 by Rosendo Nathan DO at [facility] N/A: Spine Lumbar SARAH : SPINE 02/05/2019 / / [id number] Screw Audie Bina 3 Ti Set - [id number] Implanted:Qty : 4 on 10/11/2017 by Rosendo Nathan DO at [facility] N/A: Spine Lumbar SARAH : SPINE [id number] / / 6.5 X 50 Mm Serrate Screws Implanted:Qty : 2 on 10/11/2017 by Rosendo Nathan DO at [facility] N/A: Spine Lumbar SARAH : SPINE [id number] / / 6.5 X 45 Mm Serrate Screw Implanted:Qty : 2 on 10/11/2017 by Rosendo Nathan DO at [facility] N/A: Spine Lumbar SARAH : SPINE [id number] / / 9 X 23x 6 - 9mm Pl Implanted:Qty : 1 on 10/11/2017 by Rosendo Nathan DO at [facility] N/A: Spine Lumbar SARAH : SPINE [id number] / / Shashank Bina 3 Ti 6x40mm - [id number] Implanted:Qty : 1 on 10/11/2017 by Rosendo Nathan DO at [facility] N/A: Spine Lumbar SARAH : SPINE [id number] / / Shashank Bina 3 Ti 6x45mm - [id number] Implanted:Qty : 1 on 10/11/2017 by Rosendo Nathan DO at [facility] N/A: Spine Lumbar SARAH : SPINE [id number] / / documented as of this encounter Advance Directives * Full Code (Latest Code Status on File) Date Activated Date Inactivated Comments 10/11/2017 9:23 AM 10/13/2017 10:36 PM This order r eflects the patients wishes and were consensually agreed upon. Care Teams Special Investigation Unit Investigator Relationship Specialty Start Date End Date Myesha Cavanaugh MD [address] [facility] [place] [id number] PCP - General Family Medicine 02/18/22 documented as of this encounter
--- OUTSIDE RECORDS SUMMARY | 2024-04-17 01:44 | External Medical Summary | Summary of Care ---
Author Name Unknown Organization [facility] Address [address] [facility] [place] [address] Phone [phone] Care Team Providers Care Lock And Dam Operator Name Role Phone Myesha Cavanaugh MD Primary Care Provid er Reason for Referral * Medication Prior Authorization - Pending Review Specialty Diagnoses / Procedures Referred By Contac t Referred To Contact Diagnoses History of lumbar fusion Spinal stenosis of lumbar region with neurogenic claudication Lumbar radiculitis Sacroiliac joint pain Myesha Cavanaugh MD [address] [place] [address] Referral ID Status Reason Start Date Expiration Date V isits Requested Visits Authorized [id number] Pending Review [id number] Reason for Visit * Reason Onset Date Comments Post-Op 02/22/2024 Pain 02/22/2024 Advice 02/22/2024 Encounter Details Date Type Department Care Team (Late st Contact Info) Description 02/22/[address] [facility] [address] [place] [facility] [place] [address] Myesha Cavanaugh MD [address] [place] [facility] [place] [address] Post-Op; Pain; Advice Allergies Active Allergy Reactions Criticality Noted Date Comments Amoxicillin 01/05/2017 thrush Latex 06/20/2013 Hives, rash and swelling Lisinopril 06/02/2023 COUGH Nickel Rash 12/03/2020 documented as of this encounter (statuses as of 02/27/2024) Medications Medication Sig Dispensed Refills Start Date End Date Status Spiriva Respimat 2.5 MCG/ACT Inhalation Aerosol Solution (Tiotropium [place] Monohydrate) Inhale 2 Puffs by mouth daily. [...] as of this encounter (statuses as of 02/27/2024) Active Problems Problem Noted Date Diagnosed Date [...] as of this encounter (statuses as of 02/27/2024) Resolved Problems Problem Noted Date Diagnosed Date Resolved Date Food insecurity 04/19/2021 08/26/2021 Overview: Per [facility] Protocol Asthma exacerbation 03/30/2015 07/07/20 17 Moderate persistent asthma 11/09/2014 0 03/30/2015 Overview: PFT Pneumonitis 07/24/2014 01/06/2022 Asthma exacerbation 07/24/2014 03/30/20 15 documented as of this encounter (statuses as of 02/27/2024) Immunizations Name Administration Dates Next Due PPD [...] money to get more. Never true 03/15/2023 Sex and Gender Information Value Date Recorded [...] encounter Miscellaneous Notes * Telephone Encounter - Ivelisse Londono PHARM Tech - 02/27/2024 11:33 AM EDT pt calling to check on status of prior auth. Thank you, Ivelisse Londono CPhT Wood Machine Carver II [facility] 02/27/2024, 11:33 AM * Telephone Encounter - Jeison Singletary CPhT - 02/26/2024 8:08 AM EDT Patients insurance would like to inform the office that HYDROCODONE-ACETAMIN 7.5-325 is requiring additional information: clinical criteria. Prior authorization entered in [employer] at [facility]. [facility]# [id number] Please fax to [phone] before [facility]. Thank you, Spencer Singletary ([facility]) Wood Machine Carver III [facility]) 02/26/2024, 8:08 AM * Telephone Encounter - Sydnie Craft LPN - 02/24/2024 9:06 AM EDT Left a message on [employer] that her script was sent to [facility]. * Telephone Encounter - Myesha Cavanaugh MD [...] since her surgery. Please call patient at [phone]. documented in this encounter Plan of Treatment Upcoming Encounters Date Type Department Care Team (Late st Contact Info) Description 03/15/2024 4:00 PM EDT Office Visit Nephrology[facility] [address] [place] [address] Chon Whitley MD [address] [facility] [place] [address] Scheduled Procedures Name Priority Associated Diagnoses Date/Ti [...] this encounter Medical Devices Implanted Type Area Adult Family Home Program Manager Device Identifier Shelf Expiration Date Model / Serial / Lot Vitoss Bimodal Foam Pack 10cc - [id number] Implanted:Qty : 2 on 10/11/2017 by Rosendo Nathan, DO at [facility] N/A: Spine Lumbar SARAH : SPINE 03/08/2019 / / [id number] Vitoss Bimodal Foam Pack 10cc - [id number] Implanted:Qty : 1 on 10/11/2017 by Rosendo Nathan, DO at [facility] N/A: Spine Lumbar SARAH : SPINE 02/05/2019 / / [id number] Screw Audie Bina 3 Ti Set - [id number] Implanted:Qty : 4 on 10/11/2017 by Rosendo Nathan DO at [facility] N/A: Spine Lumbar SARAH : SPINE [id number] / / 6.5 X 50 Mm Serrate Screws Implanted:Qty : 2 on 10/11/2017 by Rosendo Nathan, DO at [facility] N/A: Spine Lumbar SARAH : SPINE [id number] / / 6.5 X 45 Mm Serrate Screw Implanted:Qty : 2 on 10/11/2017 by Rosendo Nathan DO at [facility] N/A: Spine Lumbar SARAH : SPINE [id number] / / 9 X 23x 6 - 9mm Pl Implanted:Qty : 1 on 10/11/2017 by Rosendo Nathan DO at [facility] N/A: Spine Lumbar SARAH : SPINE [id number] / / Shashank Bina 3 Ti 6x40mm - [id number] Implanted:Qty : 1 on 10/11/2017 by Rosendo Nathan DO at [facility] N/A: Spine Lumbar SARAH : SPINE [id number] / / Shashank Bina 3 Ti 6x45mm - [id number] Implanted:Qty : 1 on 10/11/2017 by Rosendo Nathan DO at [facility] N/A: Spine Lumbar SARAH : SPINE [id number] / / documented as of this encounter [...] and were consensually agreed upon. Care Teams Lock And Dam Operator Relationship Specialty Start Date End Date Myesha Cavanaugh MD [address] [facility] [place] [address] PCP - General Family Medicine 02/18/22 documented as of this encounter
--- OUTSIDE RECORDS SUMMARY | 2024-04-17 01:44 | External Medical Summary | Summary of Care ---
Author Name Unknown Organization [facility] Address [address] [facility] [place] [address] Phone [phone] Care Team Providers Care Pediatric Clinical Nurse Specialist Name Role Phone Myesha Cavanaugh MD Primary Care Provid er Reason for Referral * Medication Prior Authorization - Pending Review Specialty Diagnoses / Procedures Referred By Contac t Referred To Contact Diagnoses History of lumbar fusion Spinal stenosis of lumbar region with neurogenic claudication Lumbar radiculitis Sacroiliac joint pain Myesha Cavanaugh MD [address] [place] [address] Referral ID Status Reason Start Date Expiration Date V isits Requested Visits Authorized [id number] Pending Review [id number] 999 Reason for Visit * Reason Onset Date Comments Post-Op 02/22/2024 Pain 02/22/2024 Advice 02/22/2024 Encounter Details Date Type Department Care Team (Late st Contact Info) Description 02/22/2024 Telephone [facility] [address] [facility] [place] [address] Myesha Cavanaugh MD [address] [facility] [place] [address] Post-Op; Pain; Advice Allergies Active Allergy Reactions Criticality Noted Date Comments Amoxicillin 01/05/2017 thrush Latex 06/20/2013 Hives, rash and swelling Lisinopril 06/02/2023 COUGH Nickel Rash 12/03/2020 documented as of this encounter (statuses as of 02/24/2024) Medications Medication Sig Dispensed Refills Start Date End Date Status Spiriva Respimat 2.5 MCG/ACT Inhalation Aerosol Solution (Tiotropium [place] Monohydrate) Inhale 2 Puffs by mouth daily. [...] as of this encounter (statuses as of 02/24/2024) Active Problems Problem Noted Date Diagnosed Date [...] as of this encounter (statuses as of 02/24/2024) Resolved Problems Problem Noted Date Diagnosed Date Resolved Date Food insecurity 04/19/2021 08/26/2021 Overview: Per [facility] Protocol Asthma exacerbation 03/30/2015 07/07/20 17 Moderate persistent asthma 11/09/2014 0 03/30/2015 Overview: PFT Pneumonitis 07/24/2014 01/06/2022 Asthma exacerbation 07/24/2014 03/30/20 15 documented as of this encounter (statuses as of 02/24/2024) Immunizations Name Administration Dates Next Due PPD [...] encounter Miscellaneous Notes * Telephone Encounter - Sydnie Craft LPN - 02/24/2024 9:06 AM EDT Left a message on [employer] machine that her script was sent to [facility] pharmacy. * Telephone Encounter - Myesha Cavanaugh [...] since her surgery. Please call patient at [phone]. documented in this encounter Plan of Treatment Upcoming Encounters Date Type Department Care Team (Late st Contact Info) Description 03/15/2024 4:00 PM EDT Office Visit Nephrology, Charbel Marquis [address] [facility] [place] [address] Chon Whitley MD [address] [facility] [place] [address] Scheduled Procedures Name Priority Associated Diagnoses Date/Ti [...] this encounter Medical Devices Implanted Type Area Level Vial Setter Device Identifier Shelf Expiration Date Model / Serial / Lot Vitoss Bimodal Foam Pack 10cc - [id number] Implanted:Qty : 2 on 10/11/2017 by Rosendo Nathan, DO at [facility] N/A: Spine Lumbar SARAH : SPINE 03/08/201921014773-5667 / / [id number] Vitoss Bimodal Foam Pack 10cc - [id number] Implanted:Qty : 1 on 10/11/2017 by Rosendo Nathan, DO at [facility] N/A: Spine Lumbar SARAH : SPINE 02/05/[id number] / / [id number] Screw Audie Bina 3 Ti Set - [id number] Implanted:Qty : 4 on 10/11/2017 by Rosendo Nathan, DO at [facility] N/A: Spine Lumbar SARAH : SPINE [id number] / / 6.5 X 50 Mm Serrate Screws Implanted:Qty : 2 on 10/11/2017 by Rosendo Nathan DO at [facility] N/A: Spine Lumbar SARAH : SPINE [id number] / / 6.5 X 45 Mm Serrate Screw Implanted:Qty : 2 on 10/11/2017 by Rosendo Nathan DO at [facility] N/A: Spine Lumbar SARAH : SPINE [id number] / / 9 X 23x 6 - 9mm Pl Implanted:Qty : 1 on 10/11/2017 by Rosendo Nathan DO at [facility] N/A: Spine Lumbar SARAH : SPINE [id number] / / Shashank Bina 3 Ti 6x40mm - [id number] Implanted:Qty : 1 on 10/11/2017 by Rosendo Nathan DO at [facility] N/A: Spine Lumbar SARAH : SPINE [id number] / / Shashank Bina 3 Ti 6x45mm - [id number] Implanted:Qty : 1 on 10/11/2017 by Rosendo Nathan DO at [facility] N/A: Spine Lumbar SARAH : SPINE [id number] / / documented as of this encounter [...] and were consensually agreed upon. Care Teams Pediatric Clinical Nurse Specialist Relationship Specialty Start Date End Date Myesha Cavanaugh MD [address] [place] [address] PCP - General Family Medicine 02/18/22 documented as of this encounter
--- OUTSIDE RECORDS SUMMARY | 2024-04-17 01:44 | External Medical Summary | Summary of Care ---
Author Name Unknown Organization [facility] Address [address] [facility] [place] [address] Phone [phone] Care Team Providers Care Plate Filler Name Role Phone Myesha Cavanaugh MD Primary Care Provid er Reason for Referral * Medication Prior Authorization - Pending Review Specialty Diagnoses / Procedures Referred By Contac t Referred To Contact Diagnoses History of lumbar fusion Spinal stenosis of lumbar region with neurogenic claudication Lumbar radiculitis Sacroiliac joint pain Myesha Cavanaugh MD [address] [place] [address] Referral ID Status Reason Start Date Expiration Date V isits Requested Visits Authorized [id number] Pending Review 999 999 Reason for Visit * Reason Onset Date Comments Post-Op 02/22/2024 Pain 02/22/2024 Advice 02/22/2024 Encounter Details Date Type Department Care Team (Late st Contact Info) Description 02/22/2024 Telephone [facility] [address] [facility] [address] Myesha Cavanaugh MD [address] [facility] [address] Post-Op; Pain; Advice Allergies Active Allergy Reactions Criticality Noted Date Comments Amoxicillin 01/05/2017 thrush Latex 06/20/2013 Hives, rash and swelling Lisinopril 06/02/2023 COUGH Nickel Rash 12/03/2020 documented as of this encounter (statuses as of 02/27/2024) Medications Medication Sig Dispensed Refills Start Date End Date Status Spiriva Respimat 2.5 MCG/ACT Inhalation Aerosol Solution (Tiotropium [place] Monohydrate) Inhale 2 Puffs by mouth daily. [...] PM EDT Spoke to Ashly at [facility] and she states the prior [...] Prior authorization entered in PromptPA at [facility]. EOC# [id number] Please fax to [phone] before 4pm. Thank you, Rianna White CPhT II Beam Dyer Recessed Vat [facility] 02/27/2024, 2:22 PM * Telephone Encounter - Sydnie Craft LPN - 02/27/2024 1:39 PM EDT Last office note was sent to [facility] * Telephone Encounter - Ivelisse Londono head of physics - 02/27/2024 11:33 AM EDT pt calling to check on status of prior auth. Thank you, Ivelisse Londono CPhT Beam Dyer Recessed Vat II [facility] 02/27/2024, 11:33 AM * Telephone Encounter - Jeison Singletary CPhT - 02/26/2024 8:08 AM EDT Patients insurance would like to inform the office that HYDROCODONE-ACETAMIN 7.5-325 is requiring additional information: clinical criteria. Prior authorization entered in PromptPA at [facility]. [facility]# [id number] Please fax to [phone] before [facility]. Thank you, Spencer Singletary ([facility]) Beam Dyer Recessed Vat III [facility]) 02/26/2024, 8:08 AM * Telephone Encounter - Sydnie Craft LPN - 02/24/2024 9:06 AM EDT Left a message on [employer] answering machine that her script was sent to [facility] pharmacy. * Telephone Encounter - Myesha Cavanaugh [...] since her surgery. Please call patient at [phone]. documented in this encounter Plan of Treatment Upcoming Encounters Date Type Department Care Team (Late st Contact Info) Description 03/15/2024 4:00 PM EDT Office Visit Nephrology, Charbel [place] [address] [place] [address] Chon Whitley MD [address] [facility] [place] [address] Scheduled Procedures Name Priority Associated Diagnoses Date/Ti [...] 07/07/2020 07/07/2017, 07/16/2013 COVID-19 Vaccine (1 - 2022-24 season) 2023 DTaP,Tdap,and Td Vaccines (2 - [...] this encounter Medical Devices Implanted Type Area Automatic Washer Mechanic Device Identifier Shelf Expiration Date Model / Serial / Lot Vitoss Bimodal Foam Pack 10cc - [id number] Implanted:Qty : 2 on 10/11/2017 by Rosendo Nathan DO at [facility] N/A: Spine Lumbar SARAH : SPINE 03/08/[id number] / / [id number] Vitoss Bimodal Foam Pack 10cc - [id number] Implanted:Qty : 1 on 10/11/2017 by Rosendo Nathan DO at [facility] N/A: Spine Lumbar SARAH : SPINE 02/05/[id number] / / [id number] Screw Audie Bina 3 Ti Set - [id number] Implanted:Qty : 4 on 10/11/2017 by Rosendo Nathan DO at [facility] N/A: Spine Lumbar SARAH : SPINE [id number] / / 6.5 X 50 Mm Serrate Screws Implanted:Qty : 2 on 10/11/2017 by Rosendo Nathan DO at [facility] N/A: Spine Lumbar SARAH : SPINE [id number] / / 6.5 X 45 Mm Serrate Screw Implanted:Qty : 2 on 10/11/2017 by Rosendo Nathan, DO at [facility] N/A: Spine Lumbar SARAH : SPINE [id number] / / 9 X 23x 6 - 9mm Pl Implanted:Qty : 1 on 10/11/2017 by Rosendo Nathan, DO at [facility] N/A: Spine Lumbar SARAH : SPINE [id number] / / Shashank Bina 3 Ti 6x40mm - [id number] Implanted:Qty : 1 on 10/11/2017 by Rosendo Nathan, DO at [facility] N/A: Spine Lumbar SARAH : SPINE [id number] / / Shashank Bina 3 Ti 6x45mm - [id number] Implanted:Qty : 1 on 10/11/2017 by Rosendo Nathan, DO at [facility] N/A: Spine Lumbar SARAH : SPINE [id number] / / documented as of this encounter [...] and were consensually agreed upon. Care Teams Plate Filler Relationship Specialty Start Date End Date Myesha Cavanaugh MD [address] [facility] [place] [address] PCP - General Family Medicine 02/18/22 documented as of this encounter
--- OUTSIDE RECORDS SUMMARY | 2024-04-17 01:44 | External Medical Summary | Summary of Care ---
Author Name Unknown Organization [facility] Address [address] [facility] [place] [address] Phone [phone] Care Team Providers Care Cardroom Drawing Runner Name Role Phone Myesha Cavanaugh MD Primary Care Provid er Reason for Referral * Medication Prior Authorization - Pending Review Specialty Diagnoses / Procedures Referred By Contac t Referred To Contact Diagnoses History of lumbar fusion Spinal stenosis of lumbar region with neurogenic claudication Lumbar radiculitis Sacroiliac joint pain Myesha Cavanaugh MD [address] [place] [address] Referral ID Status Reason Start Date Expiration Date V isits Requested Visits Authorized [id number] Pending Review 999 999 Reason for Visit * Reason Onset Date Comments Post-Op 02/22/2024 Pain 02/22/2024 Advice 02/22/2024 Encounter Details Date Type Department Care Team (Late st Contact Info) Description 02/22/2024 Telephone [facility] [address] [place] [address] Myesha Cavanaugh MD [address] [place] [address] Post-Op; Pain; Advice Allergies Active Allergy Reactions Criticality Noted Date Comments Amoxicillin 01/05/2017 thrush Latex 06/20/2013 Hives, rash and swelling Lisinopril 06/02/2023 COUGH Nickel Rash 12/03/2020 documented as of this encounter (statuses as of 02/28/2024) Medications Medication Sig Dispensed Refills Start Date End Date Status Spiriva Respimat 2.5 MCG/ACT Inhalation Aerosol Solution (Tiotropium [place] Monohydrate) Inhale 2 Puffs by mouth daily. [...] encounter Miscellaneous Notes * Telephone Encounter - Bere Bermudez MED ASSIST - 02/28/2024 10:58 AM EDT Are you okay with patient paying out of pocket? * Telephone Encounter - Jess Jimenez managing manager - 02/28/2024 10:46 AM EDT Patient called in today stating that she was called by the pharmacy that this is denied and they told her if the office calls and gives permission she can pick it up out of pocket, patient is asking if this is possible please advise . Thank you, Jess Jimenez Guitar Repair Technician I [facility]) 02/28/2024,10:47 AM * Telephone Encounter - Serena Reagan CPhT - 02/28/2024 10:40 AM EDT Patient calling to check status of Prior Auth. Thank you, Serena Reagan, Hotel Front Office Manager I [facility]) 02/28/2024,10:45 AM * Telephone Encounter - Sydnie Craft LPN - 02/27/2024 3:39 PM EDT Spoke to Ashly at [facility] and she states the prior auth was [...] benzodiazepine. Prior authorization entered in PromptPA at [facility]. EOC# [id number] Please fax to [phone] before 4pm. Thank you, Rianna White CPhT II Logistics Manager [facility]) 02/27/2024, 2:22 PM * Telephone Encounter - Sydnie Craft LPN - 02/27/2024 1:39 PM EDT Last office note was sent to [facility] * Telephone Encounter - Ivelisse Londono managing manager - 02/27/2024 11:33 AM EDT pt calling to check on status of prior auth. Thank you, Ivelisse Londono CPhT Logistics Manager II [facility] 02/27/2024, 11:33 AM * Telephone Encounter - Jeison Singletary CPhT - 02/26/2024 8:08 AM EDT Patients insurance would like to inform the office that HYDROCODONE-ACETAMIN 7.5-325 is requiring additional information: clinical criteria. Prior authorization entered in CloudaccPA at [facility]. EOC# [id number] Please fax to [phone] before [facility]. Thank you, Spencer Singletary ([facility]) Logistics Manager III [facility]) 02/26/2024, 8:08 AM * Telephone Encounter - Sydnie Craft LPN - 02/24/2024 9:06 AM EDT Left a message on [employer] machine that her script was sent to [facility] pharmacy. * Telephone Encounter - Myesha [...] since her surgery. Please call patient at [phone]. documented in this encounter Plan of Treatment Upcoming Encounters Date Type Department Care Team (Late st Contact Info) Description 03/15/2024 4:00 PM EDT Office Visit NephrologyCharbel [address] [place] [address] Chon Whitley MD [address] [place] [address] Scheduled Procedures Name Priority Associated Diagnoses Date/Ti [...] this encounter Medical Devices Implanted Type Area Technical Support Consultant Device Identifier Shelf Expiration Date Model / Serial / Lot Vitoss Bimodal Foam Pack 10cc - [id number] Implanted:Qty : 2 on 10/11/2017 by Rosendo Nathan DO at [facility] N/A: Spine Lumbar SARAH : SPINE 03/08/2019 / / [id number] Vitoss Bimodal Foam Pack 10cc - [id number] Implanted:Qty : 1 on 10/11/2017 by Rosendo Nathan DO at [facility] N/A: Spine Lumbar SARAH : SPINE 02/05/2019 / / [id number] Screw Audie Bina 3 Ti Set - [id number] Implanted:Qty : 4 on 10/11/2017 by Rosendo Nathan DO at [facility] N/A: Spine Lumbar SARAH : SPINE [id number] / / 6.5 X 50 Mm Serrate Screws Implanted:Qty : 2 on 10/11/2017 by Rosendo Nathan DO at [facility] N/A: Spine Lumbar SARAH : SPINE [id number] / / 6.5 X 45 Mm Serrate Screw Implanted:Qty : 2 on 10/11/2017 by Rosendo Nathan DO at [facility] N/A: Spine Lumbar SARAH : SPINE [id number] / / 9 X 23x 6 - 9mm Pl Implanted:Qty : 1 on 10/11/2017 by Rosendo Nathan DO at [facility] N/A: Spine Lumbar SARAH : SPINE [id number] / / Shashank Bina 3 Ti 6x40mm - [id number] Implanted:Qty : 1 on 10/11/2017 by Rosendo Nathan DO at [facility] N/A: Spine Lumbar SARAH : SPINE [id number] / / Shashank Bina 3 Ti 6x45mm - [id number] Implanted:Qty : 1 on [facility]11/[facility] N/A: Spine Lumbar SARAH : SPINE [id number] / / documented as of this encounter [...] and were consensually agreed upon. Care Teams Cardroom Drawing Runner Relationship Specialty Start Date End Date Myesha Cavanaugh MD [address], [place] [id number] PCP - General Family Medicine 02/18/22 documented as of this encounter
--- OUTSIDE RECORDS SUMMARY | 2024-04-17 01:44 | External Medical Summary | Summary of Care ---
Author Name Unknown Organization [facility] Address [address] [facility] [place] [address] Phone [phone] Care Team Providers Care Lead Php Developer Name Role Phone Myesha Cavanaugh MD Primary Care Provid er Reason for Referral * Medication Prior Authorization - Pending Review Specialty Diagnoses / Procedures Referred By Contac t Referred To Contact Diagnoses History of lumbar fusion Spinal stenosis of lumbar region with neurogenic claudication Lumbar radiculitis Sacroiliac joint pain Myesha Cavanaugh MD [address] [place] [address] Referral ID Status Reason Start Date Expiration Date V isits Requested Visits Authorized [id number] Pending Review 999 999 Reason for Visit * Reason Onset Date Comments Post-Op 02/22/2024 Pain 02/22/2024 Advice 02/22/2024 Encounter Details Date Type Department Care Team (Late st Contact Info) Description 02/22/2024 Telephone [facility] [address] [place] [facility] [place] [address] Myesha Cavanaugh MD [address] [place] [facility] [place] [address] Post-Op; Pain; Advice Allergies Active Allergy Reactions Criticality Noted Date Comments Amoxicillin 01/05/2017 thrush Latex 06/20/2013 Hives, rash and swelling Lisinopril 06/02/2023 COUGH Nickel Rash 12/03/2020 documented as of this encounter (statuses as of 02/28/2024) Medications Medication Sig Dispensed Refills Start Date End Date Status Spiriva Respimat 2.5 MCG/ACT Inhalation Aerosol Solution (Tiotropium [place] Monohydrate) Inhale 2 Puffs by mouth daily. [...] encounter Miscellaneous Notes * Telephone Encounter - Jess Jimenez PHARM Tech - 02/28/2024 10:46 AM EDT Patient called in today stating that she was called by the pharmacy that this is denied and they told her if the office calls and gives permission she can pick it up out of pocket, patient is asking if this is possible please advise . Thank you, Jess Jimenez Heel Attacher I [facility] 02/28/2024,10:47 AM * Telephone Encounter - Serena Reagan CPhT - 02/28/2024 10:40 AM EDT Patient calling to check status of Prior Auth. Thank you, Serena Reagan, Field Services Analyst I [facility]) 02/28/2024,10:45 AM * Telephone Encounter - Sydnie Craft LPN - 02/27/2024 3:39 PM EDT Spoke to Ashly at [facility] and she states the prior auth was [...] benzodiazepine. Prior authorization entered in PromptPA at [facility] EOC# [id number] Please fax to [phone] before 4pm. Thank you, Rianna White CPhT II Concrete Pile Driver Operator [facility]) 02/27/2024, 2:22 PM * Telephone Encounter - Sydnie Craft LPN - 02/27/2024 1:39 PM EDT Last office note was sent to [facility] * Telephone Encounter - Ivelisse Londono PHARM Tech - 02/27/2024 11:33 AM EDT pt calling to check on status of prior auth. Thank you, Ivelisse Londono CPhT Concrete Pile Driver Operator II [facility] 02/27/2024, 11:33 AM * Telephone Encounter - Jeison Singletary CPhT - 02/26/2024 8:08 AM EDT Patients insurance would like to inform the office that HYDROCODONE-ACETAMIN 7.5-325 is requiring additional information: clinical criteria. Prior authorization entered in PromptPA at [facility] EOC# [id number] Please fax to [phone] before [facility]. Thank you, Spencer Singletary ([facility]) Concrete Pile Driver Operator III [facility] 02/26/2024, 8:08 AM * Telephone Encounter - Sydnie Craft LPN - 02/24/2024 9:06 AM EDT Left a message on [employer] answering machine that her script was sent to [facility] pharmacy. * Telephone Encounter - Myesha [...] since her surgery. Please call patient at [phone]. documented in this encounter Plan of Treatment Upcoming Encounters Date Type Department Care Team (Late st Contact Info) Description 03/15/2024 4:00 PM EDT Office Visit NephCharbel balderas [address] [place] [address] Chon Whitley MD [address] [place] [address] Scheduled Procedures Name Priority Associated Diagnoses Date/Ti [...] 07/07/2020 07/07/2017, 07/16/2013 COVID-19 Vaccine ( - 2022- season) 2023 DTaP,Tdap,and Td Vaccines [...] encounter Medical Devices Implanted Type Area Senior Principal Device Identifier Shelf Expiration Date Model / Serial / Lot Vitoss Bimodal Foam Pack 10cc - [id number] Implanted:Qty : 2 on 10/11/2017 by Rosendo Nathan DO at [facility] N/A: Spine Lumbar SARAH : SPINE 03/08/2019 / / [id number] Vitoss Bimodal Foam Pack 10cc - [id number] Implanted:Qty : 1 on 10/11/2017 by Rosendo Nathan DO at [facility] N/A: Spine Lumbar SARAH : SPINE 02/05/2019 / / [id number] Screw Audie Bina 3 Ti Set - [id number] Implanted:Qty : 4 on 10/11/2017 by Rosendo Nathan DO at [facility] N/A: Spine Lumbar SARAH : SPINE [id number] / / 6.5 X 50 Mm Serrate Screws Implanted:Qty : 2 on 10/11/2017 by Rosendo Nathan DO at [facility] N/A: Spine Lumbar SARAH : SPINE [id number] / / 6.5 X 45 Mm Serrate Screw Implanted:Qty : 2 on 10/11/2017 by Rosendo Nathan DO at [facility] N/A: Spine Lumbar SARAH : SPINE [id number] / / 9 X 23x 6 - 9mm Pl Implanted:Qty : 1 on 10/11/2017 by Rosendo Nathan DO at [facility] N/A: Spine Lumbar SARAH : SPINE [id number] / / Shashank Bina 3 Ti 6x40mm - [id number] Implanted:Qty : 1 on 10/11/2017 by Rosendo Nathan DO at [facility] N/A: Spine Lumbar SARAH : SPINE [id number] / / Shashank Bina 3 Ti 6x45mm - [id number] Implanted:Qty : 1 on 10/11/2017 by Rosendo Nathan DO at [facility] N/A: Spine Lumbar SARAH : SPINE [id number] / / documented as of this encounter [...] and were consensually agreed upon. Care Teams Lead Php Developer Relationship Specialty Start Date End Date Myesha Cavanaugh MD [address] [facility] [place] [address] PCP - General Family Medicine 02/18/22 documented as of this encounter
--- OUTSIDE RECORDS SUMMARY | 2024-04-17 01:44 | External Medical Summary | Summary of Care ---
Author Name Unknown Organization [facility] Address [address] [facility] [place] [address] Phone [phone] Care Team Providers Care Wharfinger Chief Name Role Phone Myesha Cavanaugh MD Primary Care Provid er Reason for Referral * Medication Prior Authorization - Pending Review Specialty Diagnoses / Procedures Referred By Contac t Referred To Contact Diagnoses History of lumbar fusion Spinal stenosis of lumbar region with neurogenic claudication Lumbar radiculitis Sacroiliac joint pain Myesha Cavanaugh MD [address] [place] [address] Referral ID Status Reason Start Date Expiration Date V isits Requested Visits Authorized [id number] Pending Review 999 999 Reason for Visit * Reason Onset Date Comments Post-Op 02/22/2024 Pain 02/22/2024 Advice 02/22/2024 Encounter Details Date Type Department Care Team (Late st Contact Info) Description 02/22/2024 Telephone [facility] [address] [place] [address] Myesha Cavanaugh MD [address] [place] [address] Post-Op; Pain; Advice Allergies Active Allergy Reactions Criticality Noted Date Comments Amoxicillin 01/05/2017 thrush Latex 06/20/2013 Hives, rash and swelling Lisinopril 06/02/2023 COUGH Nickel Rash 12/03/2020 documented as of this encounter (statuses as of 02/26/2024) Medications Medication Sig Dispensed Refills Start Date End Date Status Spiriva Respimat 2.5 MCG/ACT Inhalation Aerosol Solution (Tiotropium [place] Monohydrate) Inhale 2 Puffs by mouth daily. [...] as of this encounter (statuses as of 02/26/2024) Active Problems Problem Noted Date Diagnosed Date [...] as of this encounter (statuses as of 02/26/2024) Resolved Problems Problem Noted Date Diagnosed Date Resolved Date Food insecurity 04/19/2021 08/26/2021 Overview: Per [facility] Protocol Asthma exacerbation 03/30/2015 07/07/20 17 Moderate persistent asthma 11/09/2014 0 03/30/2015 Overview: PFT Pneumonitis 07/24/2014 01/06/2022 Asthma exacerbation 07/24/2014 03/30/20 15 documented as of this encounter (statuses as of 02/26/2024) Immunizations Name Administration Dates Next Due PPD [...] encounter Miscellaneous Notes * Telephone Encounter - Jeison Singletary CPhT - 02/26/2024 8:08 AM EDT Patients insurance would like to inform the office that HYDROCODONE-ACETAMIN 7.5-325 is requiring additional information: clinical criteria. Prior authorization entered in PromptPA at [facility]. [facility]# [id number] Please fax to [phone] before [facility]. Thank you, Spencer Singletary ([facility]) Unix Manager III [facility]) 02/26/2024, 8:08 AM * Telephone Encounter - Sydnie Craft LPN - 02/24/2024 9:06 AM EDT Left a message on [employer] answering machine that her script was sent to [facility] pharmacy. * Telephone Encounter - Myesha [...] since her surgery. Please call patient at [phone]. documented in this encounter Plan of Treatment Upcoming Encounters Date Type Department Care Team (Late st Contact Info) Description 03/15/2024 4:00 PM EDT Office Visit NephCharbel balderas [address] [place] [address] Chon Whitley MD [address] [facility] [place] [address] Scheduled Procedures Name Priority Associated Diagnoses Date/Ti [...] this encounter Medical Devices Implanted Type Area Bait Painter Device Identifier Shelf Expiration Date Model / Serial / Lot Vitoss Bimodal Foam Pack 10cc - [id number] Implanted:Qty : 2 on 10/11/2017 by Rosendo Nathan, at [facility] N/A: Spine Lumbar SARAH : SPINE 03/08/2019 / / [id number] Vitoss Bimodal Foam Pack 10cc - [id number] Implanted:Qty : 1 on 10/11/2017 by Rosendo Nathan, at [facility] N/A: Spine Lumbar SARAH : SPINE 02/05/2019 / / [id number] Screw Audie Bina 3 Ti Set - [id number] Implanted:Qty : 4 on 10/11/2017 by Rosendo Nathan DO at [facility] N/A: Spine Lumbar SARAH : SPINE [id number] / / 6.5 X 50 Mm Serrate Screws Implanted:Qty : 2 on 10/11/2017 by Rosendo Nathan DO at [facility] N/A: Spine Lumbar SARAH : SPINE [id number] / / 6.5 X 45 Mm Serrate Screw Implanted:Qty : 2 on 10/11/2017 by Rosendo Nathan, at [facility] N/A: Spine Lumbar SARAH : SPINE [id number] / / 9 X 23x 6 - 9mm Pl Implanted:Qty : 1 on 10/11/2017 by Rosendo Nathan, at [facility] N/A: Spine Lumbar SARAH : SPINE [id number] / / Shashank Bina 3 Ti 6x40mm - [id number] Implanted:Qty : 1 on 10/11/2017 by Rosendo Nathan DO at [facility] N/A: Spine Lumbar SARAH : SPINE [id number] / / Shashank Bina 3 Ti 6x45mm - [id number] Implanted:Qty : 1 on 10/11/2017 by Rosendo Nathan DO at [facility] N/A: Spine Lumbar SARAH : SPINE [id number] / / documented as of this encounter [...] and were consensually agreed upon. Care Teams Wharfinger Chief Relationship Specialty Start Date End Date Myesha Cavanaugh MD [address] [facility] [place] [address] PCP - General Family Medicine 02/18/22 documented as of this encounter
--- OUTSIDE RECORDS SUMMARY | 2024-04-17 01:44 | External Medical Summary | Summary of Care ---
Author Name Unknown Organization [facility] Address [address] [facility] [place] [address] Phone [phone] Care Team Providers Care Machinery Repair Maintenance Supervisor Name Role Phone Myesha Cavanaugh MD Primary Care Provid er Reason for Referral * Medication Prior Authorization - Pending Review Specialty Diagnoses / Procedures Referred By Contac t Referred To Contact Diagnoses History of lumbar fusion Spinal stenosis of lumbar region with neurogenic claudication Lumbar radiculitis Sacroiliac joint pain Myesha Cavanaugh MD [address] [place] [address] Referral ID Status Reason Start Date Expiration Date V isits Requested Visits Authorized [id number] Pending Review 999 999 Reason for Visit * Reason Onset Date Comments Post-Op 02/22/2024 Pain 02/22/2024 Advice 02/22/2024 Encounter Details Date Type Department Care Team (Late st Contact Info) Description 02/22/2024 Telephone [facility] [address] [place] [address] Myesha Caavnaugh MD [address] [place] [address] Post-Op; Pain; Advice Allergies Active Allergy Reactions Criticality Noted Date Comments Amoxicillin 01/05/2017 thrush Latex 06/20/2013 Hives, rash and swelling Lisinopril 06/02/2023 COUGH Nickel Rash 12/03/2020 documented as of this encounter (statuses as of 02/27/2024) Medications Medication Sig Dispensed Refills Start Date End Date Status Spiriva Respimat 2.5 MCG/ACT Inhalation Aerosol Solution (Tiotropium [place] Monohydrate) Inhale 2 Puffs by mouth daily. [...] encounter Miscellaneous Notes * Telephone Encounter - Rianna White CPhT - 02/27/2024 2:22 PM EDT Patients insurance would like to inform the office that hydrocodone-apap is requiring additional information: urine drug screen, if pt is experiencing improvement on medication and if pt is benzodiazepine. Prior authorization entered in PromptPA at [facility]. EOC# [id number] Please fax to [phone] before 4pm. Thank you, Rianna White CPhT II Cotton Grower [facility] 02/27/2024, 2:22 PM * Telephone Encounter - Sdynie Craft LPN - 02/27/2024 1:39 PM EDT Last office note was sent to [facility] * Telephone Encounter - Ivelisse Londono industrial psychology professor - 02/27/2024 11:33 AM EDT pt calling to check on status of prior auth. Thank you, Ivelisse Londono CPhT Cotton Grower II [facility] 02/27/2024, 11:33 AM * Telephone Encounter - Jeison Singletary CPhT - 02/26/2024 8:08 AM EDT Patients insurance would like to inform the office that HYDROCODONE-ACETAMIN 7.5-325 is requiring additional information: clinical criteria. Prior authorization entered in GrupHediyePA at [facility]. EOC# [id number] Please fax to [phone] before [facility]. Thank you, Spencer Singletary ([facility]) Cotton Grower III [facility]) 02/26/2024, 8:08 AM * Telephone Encounter - Sydnie Craft LPN - 02/24/2024 9:06 AM EDT Left a message on Yostro answering machine that her script was sent to [facility] [employer]. * Telephone Encounter - Myesha Cavanaugh MD [...] since her surgery. Please call patient at [phone]. documented in this encounter Plan of Treatment Upcoming Encounters Date Type Department Care Team (Late st Contact Info) Description 03/15/2024 4:00 PM EDT Office Visit Nephrology, Char[facility] [place] [address] [facility] [place] [address] Chon Whitley MD [address] [facility] [place] [address] Scheduled Procedures Name Priority Associated Diagnoses Date/Ti [...] this encounter Medical Devices Implanted Type Area Soft Boarder Device Identifier Shelf Expiration Date Model / Serial / Lot Vitoss Bimodal Foam Pack 10cc - [id number] Implanted:Qty : 2 on 10/11/2017 by Rosendo Nathan, DO at [facility] N/A: Spine Lumbar SARAH : SPINE 03/08/2019 / / [id number] Vitoss Bimodal Foam Pack 10cc - [id number] Implanted:Qty : 1 on 10/11/2017 by Rosendo Nathan, DO at [facility] N/A: Spine Lumbar SARAH : SPINE 02/05/2019 / / [id number] Screw Audie Bina 3 Ti Set - [id number] Implanted:Qty : 4 on 10/11/2017 by Rosendo Nathan DO at [facility] N/A: Spine Lumbar SARAH : SPINE [id number] / / 6.5 X 50 Mm Serrate Screws Implanted:Qty : 2 on 10/11/2017 by Rosendo Nathan DO at [facility] N/A: Spine Lumbar SARAH : SPINE [id number] / / 6.5 X 45 Mm Serrate Screw Implanted:Qty : 2 on 10/11/2017 by Rosendo Nathan DO at [facility] N/A: Spine Lumbar SARAH : SPINE [id number] / / 9 X 23x 6 - 9mm Pl Implanted:Qty : 1 on 10/11/2017 by Jca, Rosendo Hair, DO at [facility] N/A: Spine Lumbar SARAH : SPINE [id number] / / Shashank Bina 3 Ti 6x40mm - [id number] Implanted:Qty : 1 on 10/11/2017 by Rosendo Nathan, DO at [facility] N/A: Spine Lumbar SARAH : SPINE [id number] / / Shashank Bina 3 Ti 6x45mm - [id number] Implanted:Qty : 1 on 10/11/2017 by Rosendo Nathan, DO at [facility] N/A: Spine Lumbar SARAH : SPINE [id number] / / documented as of this encounter [...] and were consensually agreed upon. Care Teams Machinery Repair Maintenance Supervisor Relationship Specialty Start Date End Date Myesha Cavanaugh MD [address] [place] [facility] [place] [address] PCP - General Family Medicine 02/18/22 documented as of this encounter
--- OUTSIDE RECORDS SUMMARY | 2024-04-17 01:44 | External Medical Summary | Summary of Care ---
Author Name Unknown Organization [facility] Address [address] [place] [address] Phone [phone] Care Team Providers Care Electric Switch Tester Name Role Phone Myesha Cavanaugh MD Primary Care Provid er Reason for Referral * Medication Prior Authorization - Pending Review Specialty Diagnoses / Procedures Referred By Contac t Referred To Contact Diagnoses History of lumbar fusion Spinal stenosis of lumbar region with neurogenic claudication Lumbar radiculitis Sacroiliac joint pain Myesha Cavanaugh MD [address] [place] [address] Referral ID Status Reason Start Date Expiration Date V isits Requested Visits Authorized [id number] Pending Review 999 999 Reason for Visit * Reason Onset Date Comments Post-Op 02/22/2024 Pain 02/22/2024 Advice 02/22/2024 Encounter Details Date Type Department Care Team (Late st Contact Info) Description 02/22/2024 Telephone [facility] [address] [place] [facility] [place] [address] Myesha Cavanaugh MD [address] [place] [facility] [place] [address] Post-Op; Pain; Advice Allergies Active Allergy Reactions Criticality Noted Date Comments Amoxicillin 01/05/2017 thrush Latex 06/20/2013 Hives, rash and swelling Lisinopril 06/02/2023 COUGH Nickel Rash 12/03/2020 documented as of this encounter (statuses as of 02/28/2024) Medications Medication Sig Dispensed Refills Start Date End Date Status Spiriva Respimat 2.5 MCG/ACT Inhalation Aerosol Solution (Tiotropium [place] Monohydrate) Inhale 2 Puffs by mouth daily. [...] encounter Miscellaneous Notes * Telephone Encounter - Serena Reagan CPhT - 02/28/2024 10:40 AM EDT Patient calling to check status of Prior Auth. Thank you, Serena Reagan Publications Production Supervisor Mitch [facility] 02/28/2024,10:45 AM * Telephone Encounter - Sydnie Craft LPN - 02/27/2024 3:39 PM EDT Spoke to Ashly at [facility] and she states the prior auth [...] benzodiazepine. Prior authorization entered in PromptPA at [facility]. EOC# [id number] Please fax to [phone] before 4pm. Thank you, Rianna White CPhT II [employer]elp [employer] [facility] 02/27/2024, 2:22 PM * Telephone Encounter - Sydnie Craft LPN - 02/27/2024 1:39 PM EDT Last office note was sent to [facility] * Telephone Encounter - Ivelisse Londono PHARM Tech - 02/27/2024 11:33 AM EDT pt calling to check on status of prior auth. Thank you, Ivelisse Londono CPhT Skelp Processor II [facility] 02/27/2024, 11:33 AM * Telephone Encounter - Jeison Singletary CPhT - 02/26/2024 8:08 AM EDT Patients insurance would like to inform the office that HYDROCODONE-ACETAMIN 7.5-325 is requiring additional information: clinical criteria. Prior authorization entered in PromptPA at [facility]. EOC# [id number] Please fax to [phone] before [facility]. Thank you, Spencer Singletary ([facility]) Skelp Processor III [facility] 02/26/2024, 8:08 AM * Telephone Encounter - Sydnie Craft LPN - 02/24/2024 9:06 AM EDT Left a message on detail answering machine that her script was sent to [facility] pharmacy. * Telephone Encounter - [...] since her surgery. Please call patient at [phone]. documented in this encounter Plan of Treatment Upcoming Encounters Date Type Department Care Team (Late st Contact Info) Description 03/15/2024 4:00 PM EDT Office Visit Nephrology, Charbel [place] [address] [facility] [place] [address] Chon Whitley MD [address] [facility] [place] [address] Scheduled Procedures Name Priority Associated Diagnoses Date/Ti [...] this encounter Medical Devices Implanted Type Area Paralegal Supervisor Device Identifier Shelf Expiration Date Model / Serial / Lot Vitoss Bimodal Foam Pack 10cc - [id number] Implanted:Qty : 2 on 10/11/2017 by Rosendo Nathan, DO at [facility] N/A: Spine Lumbar SARAH : SPINE 03/08/2019 / / [id number] Vitoss Bimodal Foam Pack 10cc - [id number] Implanted:Qty : 1 on 10/11/2017 by Rosendo Nathan, DO at [facility] N/A: Spine Lumbar SARAH : SPINE 02/05/2019 / / [id number] Screw Audie Bina 3 Ti Set - [id number] Implanted:Qty : 4 on 10/11/2017 by Rosendo Nathan DO at [facility] N/A: Spine Lumbar SARAH : SPINE [id number] / / 6.5 X 50 Mm Serrate Screws Implanted:Qty : 2 on 10/11/2017 by Rosendo Nathan DO at [facility] N/A: Spine Lumbar SARAH : SPINE [id number] / / 6.5 X 45 Mm Serrate Screw Implanted:Qty : 2 on 10/11/2017 by Rosendo Nathan DO at [facility] N/A: Spine Lumbar SARAH : SPINE [id number] / / 9 X 23x 6 - 9mm Pl Implanted:Qty : 1 on 10/11/2017 by Rosendo Nathan DO at [facility] N/A: Spine Lumbar SARAH : SPINE [id number] / / Shashank Bina 3 Ti 6x40mm - [id number] Implanted:Qty : 1 on 10/11/2017 by Rosendo Nathan DO at [facility] N/A: Spine Lumbar SARAH : SPINE [id number] / / Shashank Bina 3 Ti 6x45mm - [id number] Implanted:Qty : 1 on 10/11/2017 by Rosendo Nathan DO at [facility] N/A: Spine Lumbar SARAH : SPINE [id number] / / documented as of this encounter [...] and were consensually agreed upon. Care Teams Electric Switch Tester Relationship Specialty Start Date End Date Myesha Cavanaugh MD [address] [place] [address] PCP - General Family Medicine 02/18/22 documented as of this encounter
--- OUTSIDE RECORDS SUMMARY | 2024-04-17 01:44 | External Medical Summary | Summary of Care ---
Author Name Unknown Organization [facility] Address [address] [facility] [place] [address] Phone [phone] Care Team Providers Care Medical Sonographer Name Role Phone Myesha Cavanaugh MD Primary Care Provid er Reason for Referral * Medication Prior Authorization - Pending Review Specialty Diagnoses / Procedures Referred By Contac t Referred To Contact Diagnoses History of lumbar fusion Spinal stenosis of lumbar region with neurogenic claudication Lumbar radiculitis Sacroiliac joint pain Myesha Cavanaugh MD [address] [place] [address] Referral ID Status Reason Start Date Expiration Date V isits Requested Visits Authorized [id number] Pending Review 999 999 Reason for Visit * Reason Onset Date Comments Post-Op 02/22/2024 Pain 02/22/2024 Advice 02/22/2024 Encounter Details Date Type Department Care Team (Late st Contact Info) Description 02/22/2024 Telephone [facility] [address] [place] [address] Myesha Cavanaugh MD [address] [place] [address] Post-Op; Pain; Advice Allergies Active Allergy Reactions Criticality Noted Date Comments Amoxicillin 01/05/2017 thrush Latex 06/20/2013 Hives, rash and swelling Lisinopril 06/02/2023 COUGH Nickel Rash 12/03/2020 documented as of this encounter (statuses as of 02/27/2024) Medications Medication Sig Dispensed Refills Start Date End Date Status Spiriva Respimat 2.5 MCG/ACT Inhalation Aerosol Solution (Tiotropium [place] Monohydrate) Inhale 2 Puffs by mouth daily. [...] EDT Last office note was sent to [facility] * Telephone Encounter - Ivelisse Londono road maker - 02/27/2024 11:33 AM EDT pt calling to check on status of prior auth. Thank you, Ivelisse Londono CPhT Clinical Unit Educator II [facility] 02/27/2024, 11:33 AM * Telephone Encounter - Jeison Singletary CPhT - 02/26/2024 8:08 AM EDT Patients insurance would like to inform the office that HYDROCODONE-ACETAMIN 7.5-325 is requiring additional information: clinical criteria. Prior authorization entered in PromptPA at [facility]. EOC# [id number] Please fax to [phone] before [facility]. Thank you, Spencer Singletary ([facility]) Clinical Unit Educator III [facility] 02/26/2024, 8:08 AM * Telephone Encounter - Sydnie Craft LPN - 02/24/2024 9:06 AM EDT Left a message on Zoc[employer] machine that her script was sent to [facility] pharmacy. * Telephone Encounter - Myesha Cavanaugh [...] since her surgery. Please call patient at [phone]. documented in this encounter Plan of Treatment Upcoming Encounters Date Type Department Care Team (Late st Contact Info) Description 03/15/2024 4:00 PM EDT Office Visit NephCharbel balderas [address] [place] [address] Chon Whitley MD [address] [facility] [place] [address] Scheduled Procedures Name Priority Associated Diagnoses Date/Ti [...] 06/20/2023 06/20/2013 Mammogram 01/18/2024 01/17/2023, 0505/2023, 06/27/2013 Influenza Vaccine (FLU shot) (Season Ended) [...] this encounter Medical Devices Implanted Type Area Design Engineer Agricultural Equipment Device Identifier Shelf Expiration Date Model / Serial / Lot Vitoss Bimodal Foam Pack 10cc - [id number] Implanted:Qty : 2 on 10/11/2017 by Rosendo Nathan DO at [facility] N/A: Spine Lumbar SARAH : SPINE 03/08/2019 / / [id number] Vitoss Bimodal Foam Pack 10cc - [id number] Implanted:Qty : 1 on 10/11/2017 by Rosendo Nathan DO at [facility] N/A: Spine Lumbar SARAH : SPINE 02/05/2019 / / [id number] Screw Audie Bina 3 Ti Set - [id number] Implanted:Qty : 4 on 10/11/2017 by Rosendo Nathan DO at [facility] N/A: Spine Lumbar SARAH : SPINE [id number] / / 6.5 X 50 Mm Serrate Screws Implanted:Qty : 2 on 10/11/2017 by Rosendo Nathan DO at [facility] N/A: Spine Lumbar SARAH : SPINE [id number] / / 6.5 X 45 Mm Serrate Screw Implanted:Qty : 2 on 10/11/2017 by Rosendo Nathan DO at [facility] N/A: Spine Lumbar SARAH : SPINE [id number] / / 9 X 23x 6 - 9mm Pl Implanted:Qty : 1 on 10/11/2017 by Rosendo Nathan DO at [facility] N/A: Spine Lumbar SARAH : SPINE [id number] / / Shashank Bina 3 Ti 6x40mm - [id number] Implanted:Qty : 1 on 10/11/2017 by Rosendo Nathan DO at [facility] N/A: Spine Lumbar SARAH : SPINE [id number] / / Shashank Bina 3 Ti 6x45mm - [id number] Implanted:Qty : 1 on 10/11/2017 by Rosendo Nathan DO at [facility] N/A: Spine Lumbar SARAH : SPINE [id number] / / documented as of this encounter [...] and were consensually agreed upon. Care Teams Medical Sonographer Relationship Specialty Start Date End Date Myesha Cavanaugh MD [address] [place] [address] PCP - General Family Medicine 02/18/22 documented as of this encounter
--- OUTSIDE RECORDS SUMMARY | 2024-04-17 01:45 | External Medical Summary | Summary of Care ---
Author Name Unknown Organization [facility] Address [address] [place] [address] Phone [phone] Care Team Providers Care Premium Representative Name Role Phone Myesha Cavanaugh MD Primary Care Provid er Reason for Visit * Reason Onset Date Comments Home Health 02/01/2024 Encounter Details Date Type Department Care Team (Late st Contact Info) Description 02/01/2024 Telephone [facility] [address] [place] [address] Myesha Cavanaugh MD [address] [place] [address] Home Health Allergies Active Allergy Reactions Criticality Noted Date Comments Amoxicillin 01/05/2017 thrush Latex 06/20/2013 Hives, rash and swelling Lisinopril 06/02/2023 COUGH Nickel Rash 12/03/2020 documented as of this encounter (statuses as of 02/01/2024) Medications Medication Sig Dispensed Refills Start Date End Date Status Spiriva Respimat 2.5 MCG/ACT Inhalation Aerosol Solution (Tiotropium [place] Monohydrate) Inhale 2 Puffs by mouth daily. [...] mouth every 6 hours as needed. Active HYDROcodone-Acetami nophen 7.5-325 MG Oral TabletIndications:H istory of lumbar fusion,Spinal stenosis of lumbar region with neurogenic claudication,Lumbar radiculitis,Sacroil iac joint pain Take 1 Tablet by mouth every 8 hours as needed for Pain, Severe. 90 Tablet 11/30/2023 Active Dulera 200-5 MCG/ACT Inhalation Aerosol (Mometasone-Formote [...] the morning. 30 Capsule 5 01/18/2024 Active Albuterol Sulfate HFA 108 (90 Base) MCG/ACT Inhalation Aerosol SolutionIndications :Exacerbation of asthma, unspecified asthma severity, unspecified whether persistent INHALE 2 PUFFS BY MOUTH EVERY 4 HOURS NEEDED FOR WHEEZING 36 g 01/18/2024 Active Losartan Potassium 50 MG Oral Tablet (Cozaar) Take 1 Tablet by mouth in the morning. 30 Tablet 5 01/18/2024 Active documented as of this encounter (statuses as of 02/01/2024) Active Problems Problem Noted Date Diagnosed Date [...] as of this encounter (statuses as of 02/01/2024) Resolved Problems Problem Noted Date Diagnosed Date Resolved Date Food insecurity 04/19/2021 08/26/2021 Overview: Per [facility] Protocol Asthma exacerbation 03/30/2015 07/07/20 17 Moderate persistent asthma 11/09/2014 0 03/30/2015 Overview: PFT Pneumonitis 07/24/2014 01/06/2022 Asthma exacerbation 07/24/2014 03/30/20 15 documented as of this encounter (statuses as of 02/01/2024) Immunizations Name Administration Dates Next Due PPD [...] encounter Miscellaneous Notes * Telephone Encounter - Meg Evans LPN - 02/01/2024 1:26 PM EDT Harman from [facility] PT calling to report, Pt is refusing PT visit this week due to bronchitis sx. He is sending order to see pt next week. documented in this encounter Plan of Treatment Upcoming Encounters Date Type Department Care Team (Late st Contact Info) Description 02/06/2024 4:30 PM EDT [facility] [address] [facility] [place] [id number] [facility] [address] [facility] [place] [address] 02/12/2024 3:30 PM EDT Office Visit Hematology/Oncology [facility] [place] [address] [facility] [place] [phone] Jenna Yanes CRNP [address] [place] [address] 03/15/2024 4:00 PM EDT Office Visit Nephrology, [facility] [address] [facility] [place] [address] Chon Whitley MD [address] [facility] [place] [address] Scheduled Procedures Name Priority Associated Diagnoses Date/Ti [...] (2 - Td or Tdap) 06/20/2023 06/20/2013 Depression, Most Recent Score >= 10 (will fire each visit until score < 10) 01/17/2024 01/16/2024 Mammogram 01/18/2024 01/17/2023, 05/0 05/2023, 06/27/2013 Influenza Vaccine (FLU shot) (Season Ended) 2024 07/07/2017, 06/20/2013 O2 ASSESSMENT COMPLETED IN PAST YEAR FOR COPD 12/04/2024 12/05/2023 GFR 12/30/2024 12/31/2023, 04/, 11/28/2023, Additional history exists Albumin/Creatinine Ratio 09/01/2026 09/01/2023 Lipid Panel 05/11/2027 05/11/2022 Colonoscopy 09/27/2033 09/27/2023 Colorectal Cancer Screening 09/27/2033 GARDASIL-HPV IMMUNIZATION SERIES Aged Out No longer eligible based on patient's age to complete this topic MENINGOCOCCAL (MENACTRA/MENVEO) Aged Out No longer eligible based on patient's age to complete this topic documented as of this encounter Medical Devices Implanted Type Area Logistics Manager Device Identifier Shelf Expiration Date Model / Serial / Lot Vitoss Bimodal Foam Pack 10cc - [id number] Implanted:Qty : 2 on 10/11/2017 by Rosendo Nathan, DO at [facility] N/A: Spine Lumbar SARAH : SPINE 03/08/2019 / / [id number] Vitoss Bimodal Foam Pack 10cc - [id number] Implanted:Qty : 1 on 10/11/2017 by Rosendo Nathan, DO at [facility] N/A: Spine Lumbar SARAH : SPINE 02/05/2019 / / [id number] Screw Audie Bina 3 Ti Set - [id number] Implanted:Qty : 4 on 10/11/2017 by Rosendo Nathan, DO at [facility] N/A: Spine Lumbar SARAH : SPINE [id number] / / 6.5 X 50 Mm Serrate Screws Implanted:Qty : 2 on 10/11/2017 by Rosendo Nathan, at [facility] N/A: Spine Lumbar SARAH : SPINE [id number] / / 6.5 X 45 Mm Serrate Screw Implanted:Qty : 2 on 10/11/2017 by Rosendo Nathan, at [facility] N/A: Spine Lumbar SARAH : SPINE [id number] / / 9 X 23x 6 - 9mm Pl Implanted:Qty : 1 on 10/11/2017 by Rosendo Nathan, at [facility] N/A: Spine Lumbar SARAH : SPINE [id number] / / Shashank Bina 3 Ti 6x40mm - [id number] Implanted:Qty : 1 on 10/11/2017 by Rosendo Nathan, at [facility] N/A: Spine Lumbar SARAH : SPINE [id number] / / Shashank Bina 3 Ti 6x45mm - [id number] Implanted:Qty : 1 on 10/11/2017 by Rosendo Nathan, at [facility] N/A: Spine Lumbar SARAH : SPINE [id number] / / documented as of this encounter Advance Directives * Full Code (Latest Code Status on File) Date Activated Date Inactivated Comments 10/11/2017 9:23 AM 10/13/2017 10:36 PM This order r eflects the patients wishes and were consensually agreed upon. Care Teams Premium Representative Relationship Specialty Start Date End Date Myesha Cavanaugh MD [address] [facility] [place] [address] PCP - General Family Medicine 02/18/22 documented as of this encounter
--- OUTSIDE RECORDS SUMMARY | 2024-04-17 01:45 | External Medical Summary | Summary of Care ---
Author Name Unknown Organization [facility] Address [address] [place] [address] Phone [phone] Care Team Providers Care Inside Solar Sales Consultant Name Role Phone Олег Frias MD Primary Care Provid er Reason for Visit * Reason Comments eRx-Medication Refill Encounter Details Date Type Department Care Team (Late st Contact Info) Description 02/15/2024 Refill [facility] [address] [place] [phone] Олег Frias MD [address] [place] [address] Exacerbation of asthma, unspecified asthma severity, unspecified whether persistent Allergies Active Allergy Reactions Criticality Noted Date Comments Amoxicillin 01/05/2017 thrush Latex 06/20/2013 Hives, rash and swelling Lisinopril 06/02/2023 COUGH Nickel Rash 12/03/2020 documented as of this encounter (statuses as of 02/16/2024) Medications Medication Sig Dispensed Refills Start Date End Date Status Spiriva Respimat 2.5 MCG/ACT Inhalation Aerosol Solution (Tiotropium [place] Monohydrate) Inhale 2 Puffs by mouth daily. 12 g 3 09/23/2021 Active Additional Information Patient not taking.Reported on 09/26/2023 hydrOXYzine HCl 50 MG Oral TabletIndications :Anxiety,Pruritus Take 1 Tablet by mouth every 6 hours as needed for Itching or Anxiety. 60 Tablet 5 05/02/2023 Active Meloxicam 15 MG Oral TabletIndications :Fibromyalgia,Lum bar radiculitis Take 1 Tablet by mouth daily. Take 1-2 tabs daily for pain. 90 Tablet 1 05/02/2023 Active Additional Information Patient not taking.Reported on 11/06/2023 Compressor NebulizerIndicati ons:Moderate persistent asthma without complication,COPD , 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 Use as directed. 1 Each 1 05/26/2023 Active Additional Information Patient not taking.Reported on 12/05/2023 Benzonatate 100 MG Oral CapsuleIndication s:Upper respiratory tract infection, unspecified type,Acute cough Take 1 Capsule by mouth 3 times a day as needed for Cough (may make you sleepy). 15 Capsule 06/01/2023 Active Additional Information Patient not taking.Reported on 06/14/2023 amLODIPine Besylate 5 MG Oral Tablet (Norvasc)Indicati [...] 09/26/2023 Azithromycin 250 MG Oral Tablet (Zithromax Z-Nabil)Indications :Protracted URI,Fatigue, unspecified type Take two tablets by mouth on first day, then 1 tablet daily until gone 6 Tablet 06/27/2023 Active Additional Information Patient not taking.Reported on 09/26/2023 Montelukast Sodium 10 MG Oral Tablet (Singulair)Indica tions:Chronic cough Take 1 Tablet by mouth at bedtime. 90 Tablet 3 09/01/2023 Active Pregabalin 150 MG Oral Capsule (Lyrica)Indicatio ns:Spinal [...] Active Ondansetron HCl 4 MG Oral Tablet (Zofran)Indicatio ns:Nausea and vomiting, unspecified vomiting type TAKE 1 TABLET BY MOUTH EVERY 8 HOURS NEEDED FOR NAUSEA 20 Tablet 11/09/2023 Active Acetaminophen 500 MG Oral Tablet (Tylenol) Take 2 Tablets by mouth every 6 hours as needed. Active HYDROcodone-Aceta minophen 7.5-325 MG Oral TabletIndications :History of lumbar fusion,Spinal stenosis of lumbar region with neurogenic claudication,Lumb ar radiculitis,Sacro iliac joint pain Take 1 Tablet by mouth every 8 hours as needed for Pain, Severe. 90 Tablet 11/30/2023 Active Dulera 200-5 MCG/ACT Inhalation Aerosol (Mometasone-Formo [...] 20 MG Oral Capsule Delayed Release (PriLOSEC)Indicat ions:Nausea and vomiting, unspecified vomiting type,Gastroesopha geal reflux disease without esophagitis Take 1 [...] FOR WHEEZING 36 g 1 02/16/2024 Active Albuterol Sulfate HFA 108 (90 Base) MCG/ACT Inhalation Aerosol SolutionIndicatio ns:Exacerbation of asthma, unspecified asthma severity, unspecified whether persistent INHALE 2 PUFFS BY MOUTH EVERY 4 HOURS NEEDED FOR WHEEZING 36 g 01/18/2024 02/16/20 24 Discontinued documented as of this encounter (statuses as of 02/16/2024) Active Problems Problem Noted Date Diagnosed Date [...] as of this encounter (statuses as of 02/16/2024) Resolved Problems Problem Noted Date Diagnosed Date Resolved Date Food insecurity 04/19/2021 08/26/2021 Overview: Per [facility] Protocol Asthma exacerbation 03/30/2015 07/07/20 17 Moderate persistent asthma 11/09/2014 0 03/30/2015 Overview: PFT Pneumonitis 07/24/2014 01/06/2022 Asthma exacerbation 07/24/2014 03/30/20 15 documented as of this encounter (statuses as of 02/16/2024) Immunizations Name Administration Dates Next Due PPD [...] encounter Miscellaneous Notes * Telephone Encounter - Solitario Posada [facility] - 02/16/2024 9:23 AM EDTSigned Prescriptions: Disp Refills Albuterol Sulfate HFA 108 (90 Base) MCG/AC*36 g 1 Sig: INHALE 2 PUFFS BY MOUTH EVERY 4 HOURS NEEDED FOR WHEEZINGAuthorizing Provider: ОЛЕГ FRIAS User: SOLITARIO POSADA documented in this encounter Plan of Treatment Upcoming Encounters Date Type Department Care Team (Late st Contact Info) Description 03/15/2024 4:00 PM EDT Office Visit Nephrology, [facility] [address] [place], [place] [address] Chon Whitley MD [address] [facility] [place], [place] [address] Scheduled Procedures Name Priority Associated Diagnoses Date/Ti [...] this encounter Medical Devices Implanted Type Area Coordinate Measuring Machine Operator Device Identifier Shelf Expiration Date Model / Serial / Lot Vitoss Bimodal Foam Pack 10cc - [id number] Implanted:Qty : 2 on 10/11/2017 by Rosendo Nathan, DO at [facility] N/A: Spine Lumbar SARAH : SPINE 03/08/2019 / / [id number] Vitoss Bimodal Foam Pack 10cc - [id number] Implanted:Qty : 1 on 10/11/2017 by Rosendo Nathan, DO at [facility] N/A: Spine Lumbar SARAH : SPINE 02/05/2019 / / [id number] Screw Audie Bina 3 Ti Set - [id number] Implanted:Qty : 4 on 10/11/2017 by Rosendo Nathan, DO at [facility] N/A: Spine Lumbar SARAH : SPINE [id number] / / 6.5 X 50 Mm Serrate Screws Implanted:Qty : 2 on 10/11/2017 by Rosendo Nathan, at [facility] N/A: Spine Lumbar SARAH : SPINE [id number] / / 6.5 X 45 Mm Serrate Screw Implanted:Qty : 2 on 10/11/2017 by Rosendo Nathan, at [facility] N/A: Spine Lumbar SARAH : SPINE [id number] / / 9 X 23x 6 - 9mm Pl Implanted:Qty : 1 on 10/11/2017 by Rosendo Nathan, at [facility] N/A: Spine Lumbar SARAH : SPINE [id number] / / Shashank Bina 3 Ti 6x40mm - [id number] Implanted:Qty : 1 on 10/11/2017 by Rosendo Nathan, at [facility] N/A: Spine Lumbar SARAH : SPINE [id number] / / Shashank Bina 3 Ti 6x45mm - [id number] Implanted:Qty : 1 on 10/11/2017 by Rosendo Nathan, at [facility] N/A: Spine Lumbar SARAH : SPINE [id number] / / documented as of this encounter Visit Diagnoses Diagnosis Exacerbation of asthma, unspecified asthma severity, unspecified whether persistent documented in this encounter Advance Directives * Full Code (Latest Code Status on File) Date Activated Date Inactivated Comments 10/11/2017 9:23 AM 10/13/2017 10:36 PM This order r eflects the patients wishes and were consensually agreed upon. Care Teams Inside Solar Sales Consultant Relationship Specialty Start Date End Date Олег Frias MD [address] [place] [facility] [place] [address] PCP - General Family Medicine 02/18/22 documented as of this encounter
--- OUTSIDE RECORDS SUMMARY | 2024-04-17 01:45 | External Medical Summary | Summary of Care ---
Author Name Unknown Organization [facility] Address [address] [place] [address] Phone [phone] Care Team Providers Care Director Operating Name Role Phone Myesha Cavanaugh MD Primary Care Provid er Reason for Visit * Reason Onset Date Comments Home Health 01/25/2024 Encounter Details Date Type Department Care Team (Late st Contact Info) Description 01/25/2024 Telephone [facility] [address] [place] [address] Myesah Cavanaugh MD [address] [place] [address] Home Health Allergies Active Allergy Reactions Criticality Noted Date Comments Amoxicillin 01/05/2017 thrush Latex 06/20/2013 Hives, rash and swelling Lisinopril 06/02/2023 COUGH Nickel Rash 12/03/2020 documented as of this encounter (statuses as of 01/26/2024) Medications Medication Sig Dispensed Refills Start Date End Date Status Spiriva Respimat 2.5 MCG/ACT Inhalation Aerosol Solution (Tiotropium [place] Monohydrate) Inhale 2 Puffs by mouth daily. [...] Cough (may make you sleepy). 15 Capsule 0 06/01/2023 Active Additional Information Patient not taking.Reported [...] 1 tablet daily until gone 6 Tablet 0 06/27/2023 Active Additional Information Patient not taking.Reported [...] 8 HOURS NEEDED FOR NAUSEA 20 Tablet 0 11/09/2023 Active Acetaminophen 500 MG Oral Tablet (Tylenol) Take 2 Tablets by mouth every 6 hours as needed. 0 Active HYDROcodone-Acetami nophen 7.5-325 MG Oral TabletIndications:H istory of lumbar fusion,Spinal stenosis of lumbar region with neurogenic claudication,Lumbar radiculitis,Sacroil iac joint pain Take 1 Tablet by mouth every 8 hours as needed for Pain, Severe. 90 Tablet 0 11/30/2023 Active Dulera 200-5 MCG/ACT Inhalation Aerosol [...] DAILY NEEDED FOR ANXIETY 30 Tablet 0 01/18/2024 Active Omeprazole 20 MG Oral Capsule [...] 4 HOURS NEEDED FOR WHEEZING 36 g 0 01/18/2024 Active Losartan Potassium 50 MG Oral Tablet (Cozaar) Take 1 Tablet by mouth in the morning. 30 Tablet 5 01/18/2024 Active Azithromycin 250 MG Oral Tablet (Zithromax)Indicati ons:Bronchitis, complicated Take 2 tabs by mouth on the first day, then 1 tab daily on days two through five 6 Tablet 0 01/26/2024 01/31/2024 Active documented as of this encounter (statuses as of 01/26/2024) Active Problems Problem Noted Date Diagnosed Date [...] as of this encounter (statuses as of 01/26/2024) Resolved Problems Problem Noted Date Diagnosed Date Resolved Date Food insecurity 04/19/2021 08/26/2021 Overview: Per [facility] Protocol Asthma exacerbation 03/30/2015 07/07/20 17 Moderate persistent asthma 11/09/2014 0 03/30/2015 Overview: PFT Pneumonitis 07/24/2014 01/06/2022 Asthma exacerbation 07/24/2014 03/30/20 15 documented as of this encounter (statuses as of 01/26/2024) Immunizations Name Administration Dates Next Due PPD [...] encounter Miscellaneous Notes * Telephone Encounter - Afshan, Myesha Victorina Chipe, MD - 01/26/2024 1:00 PM EDT Script sent * Telephone Encounter - Briana Royal LPN - 01/25/2024 11:11 AM EDT Home Health Concern: Jacquie RN, Calling from: [facility] Report/Concerns of:Medication Related Symptoms: none Vitals: T 99.1 P 88 RR 18 BP 108/70 SP O2 94% on R/A - lower than last check 98% on R/A, patient is cough a lot and is a smoker Lung sounds - Clear Weight - N/A Blood sugar - N/A Narrative: Jacquie states that patient was to be prescribed an antibiotic [facility] bronch[facility] Patient never received a script for antibiotic. Persistent congested cough non-productive cough Jacquie states that she had spoke to patients rn case manager hospice on 01/17 and reported that she did not receive a script for antibiotic Reveiwed message from 01/17 (Marylin Olson) - made Jacquie aware of PCP advice and that antibiotic was not addressed Jacquie is asking if PCP will prescribe antibiotic for patient Also noted that patient has not been scheduled for a Hosp Discharge appt yet Jacquie states that Marylin Olson was going to address that as well and also find out if PCP will sign home health orders Advised that I would send message to scheduling to reach out to patient and set up this appt and that we can't give ok for PCP to sign orders for home health until patient is scheduled. Pharm selected. Please advise. Call back with advice or orders Please fax orders to [facility] Home Health documented in this encounter Plan of Treatment Upcoming Encounters Date Type Department Care Team (Late st Contact Info) Description 02/06/2024 4:30 PM EDT Laboratory Laboratory, [facility] [address] [place] [phone] Mare Wilkerson [address] [place] [address] 02/12/2024 3:30 PM EDT Office Visit Hematology/On[facility] [place] [address] [place] [phone] Jenna Yanes CRNP [address] [facility] [place] [address] 03/15/2024 4:00 PM EDT Office Visit Nephrology, [facility] [address] [place] [address] Chon Whitley MD [address] [place] [address] Scheduled Procedures Name Priority Associated Diagnoses Date/Ti [...] this encounter Medical Devices Implanted Type Area Roofer Device Identifier Shelf Expiration Date Model / Serial / Lot Vitoss Bimodal Foam Pack 10cc - [id number] Implanted:Qty : 2 on 10/11/2017 by Rosendo Nathan, DO at [facility] N/A: Spine Lumbar SARAH : SPINE 03/08/2019 / / [id number] Vitoss Bimodal Foam Pack 10cc - [id number] Implanted:Qty : 1 on 10/11/2017 by Rosendo Nathan, DO at [facility] N/A: Spine Lumbar SARAH : SPINE 02/05/2019 / / [id number] Screw Audie Bina 3 Ti Set - [id number] Implanted:Qty : 4 on 10/11/2017 by Rosendo Nathan, DO at [facility] N/A: Spine Lumbar SARAH : SPINE [id number] / / 6.5 X 50 Mm Serrate Screws Implanted:Qty : 2 on 10/11/2017 by Rosendo Nathan, DO at [facility] N/A: Spine Lumbar SARAH : SPINE [id number] / / 6.5 X 45 Mm Serrate Screw Implanted:Qty : 2 on 10/11/2017 by Jac, Rosendo Hair, DO at [facility] N/A: Spine Lumbar SARAH : SPINE [id number] / / 9 X 23x 6 - 9mm Pl Implanted:Qty : 1 on 10/11/2017 by Rosendo Nathan, DO at [facility] N/A: Spine Lumbar SARAH : SPINE [id number] / / Shashank Bina 3 Ti 6x40mm - [id number] Implanted:Qty : 1 on 10/11/2017 by Rosendo Nathan, DO at [facility] N/A: Spine Lumbar SARAH : SPINE [id number] / / Shashank Bina 3 Ti 6x45mm - [id number] Implanted:Qty : 1 on 10/11/2017 by Rosendo Nathan, at [facility] N/A: Spine Lumbar SARAH : SPINE [id number] / / documented as of this encounter Visit Diagnoses Diagnosis Bronchitis, complicated- Primary Bronchitis, not specified as acute or chronic documented in this encounter Advance Directives Latest Code Status on File Code Status Date Activated Date Inactivated Comments Full Code 10/11/2017 9:23 AM 10/13/2017 10:36 PM This order reflects the patients wishes and were consensually agreed upon. Care Teams Director Operating Relationship Specialty Start Date End Date Myesha Cavanaugh MD [address] [place] [facility] [place] [address] PCP - General Family Medicine 02/18/22 documented as of this encounter
--- OUTSIDE RECORDS SUMMARY | 2024-04-17 01:45 | External Medical Summary | Summary of Care ---
Author Name Unknown Organization [facility] Address [address] [facility] [address] [place] [place] [address] Phone [phone] Care Team Providers Care Manual Arts Therapist Name Role Phone Myesha Cavanaugh MD Primary Care Provid er Reason for Referral * Medication Prior Authorization - Pending Review Specialty Diagnoses / Procedures Referred By Contac t Referred To Contact Diagnoses History of lumbar fusion Spinal stenosis of lumbar region with neurogenic claudication Lumbar radiculitis Sacroiliac joint pain Myesha Cavanaugh MD [address] [place] [address] Referral ID Status Reason Start Date Expiration Date V isits Requested Visits Authorized [id number] Pending Review 999 999 Reason for Visit * Reason Onset Date Comments Post-Op 02/22/2024 Pain 02/22/2024 Advice 02/22/2024 Encounter Details Date Type Department Care Team (Late st Contact Info) Description 02/22/2024 Telephone [facility] [address] [place] [facility] [place] [address] Myesha Cavanaugh MD [address] [place] [facility] [place] [address] Post-Op; Pain; Advice Allergies Active Allergy Reactions Criticality Noted Date Comments Amoxicillin 01/05/2017 thrush Latex 06/20/2013 Hives, rash and swelling Lisinopril 06/02/2023 COUGH Nickel Rash 12/03/2020 documented as of this encounter (statuses as of 02/23/2024) Medications Medication Sig Dispensed Refills Start Date End Date Status Spiriva Respimat 2.5 MCG/ACT Inhalation Aerosol Solution (Tiotropium [place] Monohydrate) Inhale 2 Puffs by mouth daily. [...] as of this encounter (statuses as of 02/23/2024) Active Problems Problem Noted Date Diagnosed Date [...] as of this encounter (statuses as of 02/23/2024) Resolved Problems Problem Noted Date Diagnosed Date Resolved Date Food insecurity 04/19/2021 08/26/2021 Overview: Per [facility] Protocol Asthma exacerbation 03/30/2015 07/07/20 17 Moderate persistent asthma 11/09/2014 0 03/30/2015 Overview: PFT Pneumonitis 07/24/2014 01/06/2022 Asthma exacerbation 07/24/2014 03/30/20 15 documented as of this encounter (statuses as of 02/23/2024) Immunizations Name Administration Dates Next Due PPD [...] since her surgery. Please call patient at [phone]. documented in this encounter Plan of Treatment Upcoming Encounters Date Type Department Care Team (Late st Contact Info) Description 03/15/2024 4:00 PM EDT Office Visit Nephrology, [facility] [address] [place] [address] Chon Whitley MD [address] [facility] [place] [address] Scheduled Procedures Name Priority Associated Diagnoses Date/Ti [...] this encounter Medical Devices Implanted Type Area Clinical Nurse Device Identifier Shelf Expiration Date Model / Serial / Lot Vitoss Bimodal Foam Pack 10cc - [id number] Implanted:Qty : 2 on 10/11/2017 by Rosendo Nathan DO at [facility] N/A: Spine Lumbar SARAH : SPINE 03/08/2019 / / [id number] Vitoss Bimodal Foam Pack 10cc - [id number] Implanted:Qty : 1 on 10/11/2017 by Rosendo Nathan DO at [facility] N/A: Spine Lumbar SARAH : SPINE 02/05/2019 / / [id number] Screw Audie Bina 3 Ti Set - [id number] Implanted:Qty : 4 on 10/11/2017 by Rosendo Nathan DO at [facility] N/A: Spine Lumbar SARAH : SPINE [id number] / / 6.5 X 50 Mm Serrate Screws Implanted:Qty : 2 on 10/11/2017 by Rosendo Nathan DO at [facility] N/A: Spine Lumbar SARAH : SPINE [id number] / / 6.5 X 45 Mm Serrate Screw Implanted:Qty : 2 on 10/11/2017 by Rosendo Nathan, DO at [facility] N/A: Spine Lumbar SARAH : SPINE [id number] / / 9 X 23x 6 - 9mm Pl Implanted:Qty : 1 on 10/11/2017 by Rosendo Nathan, DO at [facility] N/A: Spine Lumbar SARAH : SPINE [id number] / / Shashank Bina 3 Ti 6x40mm - [id number] Implanted:Qty : 1 on 10/11/2017 by Rosendo Nathan, DO at [facility] N/A: Spine Lumbar SARAH : SPINE [id number] / / Shashank Bina 3 Ti 6x45mm - [id number] Implanted:Qty : 1 on 10/11/2017 by Rosendo Nathan, DO at [facility] N/A: Spine Lumbar SARAH : SPINE [id number] / / documented as of this encounter [...] and were consensually agreed upon. Care Teams Manual Arts Therapist Relationship Specialty Start Date End Date Myesha Cavanaugh MD [address] [facility] [place] [address] PCP - General Family Medicine 02/18/22 documented as of this encounter
--- OUTSIDE RECORDS SUMMARY | 2024-04-17 01:45 | External Medical Summary | Summary of Care ---
Author Name Unknown Organization [facility] Address [address] [place] [address] Phone [phone] Care Team Providers Care Sand Sifter Name Role Phone Myesha Cavanaugh MD Primary Care Provid er Reason for Visit * Reason Onset Date Comments Home Health 02/08/2024 Encounter Details Date Type Department Care Team (Late st Contact Info) Description 02/08/2024 Telephone [facility] [address] [place] [address] Myesha Cavanaugh MD [address] [place] [address] Home Health Allergies Active Allergy Reactions Criticality Noted Date Comments Amoxicillin 01/05/2017 thrush Latex 06/20/2013 Hives, rash and swelling Lisinopril 06/02/2023 COUGH Nickel Rash 12/03/2020 documented as of this encounter (statuses as of 02/12/2024) Medications Medication Sig Dispensed Refills Start Date End Date Status Spiriva Respimat 2.5 MCG/ACT Inhalation Aerosol Solution (Tiotropium [place] Monohydrate) Inhale 2 Puffs by mouth daily. [...] as of this encounter (statuses as of 02/12/2024) Active Problems Problem Noted Date Diagnosed Date [...] as of this encounter (statuses as of 02/12/2024) Resolved Problems Problem Noted Date Diagnosed Date Resolved Date Food insecurity 04/19/2021 08/26/2021 Overview: Per [facility] Protocol Asthma exacerbation 03/30/2015 07/07/20 17 Moderate persistent asthma 11/09/2014 0 03/30/2015 Overview: PFT Pneumonitis 07/24/2014 01/06/2022 Asthma exacerbation 07/24/2014 03/30/20 15 documented as of this encounter (statuses as of 02/12/2024) Immunizations Name Administration Dates Next Due PPD [...] encounter Miscellaneous Notes * Telephone Encounter - Lacy Alvares LPN - 02/08/2024 4:57 PM EDT HH Concerns HIRO Dhillon, Calling from: [facility] Report/Concerns of: Sinus/facial pressure and HH D/C Symptoms: sinus pressure and has slight clear nasal drainage Vitals: T 98.3 P 89 RR 16 BP 110/70 SP O2 98% RA Lung sounds CTA Weight NA Blood sugar NA Narrative: Reports pt completed full course of abx for Bronchitis and now pt is reporting having sinus/facial pressure and clear nasal drainage. Has no other sx. Pt is doing well and is stable. Will be D/C pt from HH services, effective as of 02/08/24. Asks that the pt is called back with any advice. Please advise sinus pressure and clear nasal drainage. documented in this encounter Plan of Treatment Upcoming Encounters Date Type Department Care Team (Late st Contact Info) Description 03/15/2024 4:00 PM EDT Office Visit Nephrology, [facility] [place] [address] [facility] [place] [address] Chon Whitley MD [address] [facility] [place] [address] Scheduled Procedures Name Priority Associated Diagnoses Date/Ti [...] < 10) 01/17/2024 01/16/2024 Mammogram 01/18/2024 01/17/2023, 05/2023, 06/27/2013 Influenza Vaccine (FLU shot) (Season Ended) 2024 07/07/2017, 06/20/2013 O2 ASSESSMENT COMPLETED IN PAST YEAR FOR COPD 12/04/2024 12/05/2023 GFR 12/30/2024 12/31/2023, 12/11, 11/28/2023, Additional history exists Albumin/Creatinine Ratio 09/01/2026 09/01/2023 Lipid Panel 05/11/2027 05/11/2022 Colonoscopy 09/27/2033 09/27/2023 Colorectal Cancer Screening 09/27/2033 GARDASIL-HPV IMMUNIZATION SERIES Aged Out No longer eligible based on patient's age to complete this topic MENINGOCOCCAL (MENACTRA/MENVEO) Aged Out No longer eligible based on patient's age to complete this topic documented as of this encounter Medical Devices Implanted Type Area Maintenance Helper Device Identifier Shelf Expiration Date Model / Serial / Lot Vitoss Bimodal Foam Pack 10cc - [id number] Implanted:Qty : 2 on 10/11/2017 by Rosendo Nathan DO at [facility] N/A: Spine Lumbar SARAH : SPINE 03/08/2019 / / [id number] Vitoss Bimodal Foam Pack 10cc - [id number] Implanted:Qty : 1 on 10/11/2017 by Rosendo Nathan DO at [facility] N/A: Spine Lumbar SARAH : SPINE 02/05/2019 / / [id number] Screw Audie Bina 3 Ti Set - [id number] Implanted:Qty : 4 on 10/11/2017 by Rosendo Nathan DO at [facility] N/A: Spine Lumbar SARAH : SPINE [id number] / / 6.5 X 50 Mm Serrate Screws Implanted:Qty : 2 on 10/11/2017 by Rosendo Nathan DO at [facility] N/A: Spine Lumbar SARAH : SPINE [id number] / / 6.5 X 45 Mm Serrate Screw Implanted:Qty : 2 on 10/11/2017 by Rosendo Nathan, DO at [facility] N/A: Spine Lumbar SARAH : SPINE [id number] / / 9 X 23x 6 - 9mm Pl Implanted:Qty : 1 on 10/11/2017 by Rosendo Nathan, DO at [facility] N/A: Spine Lumbar SARAH : SPINE [id number] / / Shashank Bina 3 Ti 6x40mm - [id number] Implanted:Qty : 1 on 10/11/2017 by Rosendo Nathan, DO at [facility] N/A: Spine Lumbar SARAH : SPINE [id number] / / Shashank Bina 3 Ti 6x45mm - [id number] Implanted:Qty : 1 on 10/11/2017 by Rosendo Nathan, DO at [facility] N/A: Spine Lumbar SARAH : SPINE [id number] / / documented as of this encounter Advance Directives * Full Code (Latest Code Status on File) Date Activated Date Inactivated Comments 10/11/2017 9:23 AM 10/13/2017 10:36 PM This order r eflects the patients wishes and were consensually agreed upon. Care Teams Sand Sifter Relationship Specialty Start Date End Date Myesha Cavanaugh MD [address] [place] [facility] [address] PCP - General Family Medicine 02/18/22 documented as of this encounter
--- OUTSIDE RECORDS SUMMARY | 2024-04-17 01:45 | External Medical Summary | Summary of Care ---
Author Name Unknown Organization [facility] Address [address] [place] [address] Phone [phone] Care Team Providers Care Aviation Safety Equipment Technician Name Role Phone Myesha Cavanaugh MD Primary Care Provid er Reason for Visit * Reason Onset Date Comments Mycode Lab Reorder 02/15/2024 Encounter Details Date Type Department Care Team (Late st Contact Info) Description 02/15/2024 Orders Only Outcomes Research Department [address] [place] [address] Bernarda Rea N, CHRA [address] [place] [address] MyCode Research Other*[id number]* Allergies Active Allergy Reactions Criticality Noted Date Comments Amoxicillin 01/05/2017 thrush Latex 06/20/2013 Hives, rash and swelling Lisinopril 06/02/2023 COUGH Nickel Rash 12/03/2020 documented as of this encounter (statuses as of 02/15/2024) Medications Medication Sig Dispensed Refills Start Date End Date Status Spiriva Respimat 2.5 MCG/ACT Inhalation Aerosol Solution (Tiotropium [place] Monohydrate) Inhale 2 Puffs by mouth daily. [...] as of this encounter (statuses as of 02/15/2024) Active Problems Problem Noted Date Diagnosed Date [...] as of this encounter (statuses as of 02/15/2024) Resolved Problems Problem Noted Date Diagnosed Date Resolved Date Food insecurity 04/19/2021 08/26/2021 Overview: Per [facility] Protocol Asthma exacerbation 03/30/2015 07/07/20 17 Moderate persistent asthma 11/09/2014 0 03/30/2015 Overview: PFT Pneumonitis 07/24/2014 01/06/2022 Asthma exacerbation 07/24/2014 03/30/20 15 documented as of this encounter (statuses as of 02/15/2024) Immunizations Name Administration Dates Next Due PPD [...] as of this encounter Progress Notes * Bernarda Rea CHRA - 02/15/2024 1:33 PM EDT MyCode lab reordered. documented in this encounter Plan of Treatment Upcoming Encounters Date Type Department Care Team (Late st Contact Info) Description 03/15/2024 4:00 PM EDT Office Visit Nephrology, [facility] [address] [place] [address] Chon Whitley MD [address] [place] [id number] Scheduled Orders Name Type Priority Associated Diagnoses Orde r Schedule MYCODE SUBSEQUENT ADULT Lab Routine MyCode Research Other*[id number] Every 6 Months for 2 Occurrences starting 02/15/2024 until 03/06/2025 Scheduled Procedures Name Priority Associated Diagnoses Date/Ti [...] this encounter Medical Devices Implanted Type Area Game Room Attendant Device Identifier Shelf Expiration Date Model / Serial / Lot Vitoss Bimodal Foam Pack 10cc - [id number] Implanted:Qty : 2 on 10/11/2017 by Rosendo Nathan DO at [facility] N/A: Spine Lumbar SARAH : SPINE 03/08/2019 / / [id number] Vitoss Bimodal Foam Pack 10cc - [id number] Implanted:Qty : 1 on 10/11/2017 by Rosendo Nathan DO at [facility] N/A: Spine Lumbar SARAH : SPINE 02/05/2019 / / [id number] Screw Audie Bina 3 Ti Set - [id number] Implanted:Qty : 4 on 10/11/2017 by Rosendo Nathan, DO at [facility] N/A: Spine Lumbar SARAH : SPINE [id number] / / 6.5 X 50 Mm Serrate Screws Implanted:Qty : 2 on 10/11/2017 by Rosendo Nathan DO at [facility] N/A: Spine Lumbar SARAH : SPINE [id number] / / 6.5 X 45 Mm Serrate Screw Implanted:Qty : 2 on 10/11/2017 by Rosendo Nathan DO at [facility] N/A: Spine Lumbar SARAH : SPINE [id number] / / 9 X 23x 6 - 9mm Pl Implanted:Qty : 1 on 10/11/2017 by Rosendo Nathan DO at [facility] N/A: Spine Lumbar SARAH : SPINE [id number] / / Shashank Bina 3 Ti 6x40mm - [id number] Implanted:Qty : 1 on 10/11/2017 by Rosendo Nathan, at [facility] N/A: Spine Lumbar SARAH : SPINE [id number] / / Shashank Bina 3 Ti 6x45mm - [id number] Implanted:Qty : 1 on 10/11/2017 by Rosendo Nathan, DO at [facility] N/A: Spine Lumbar SARAH : SPINE [id number] / / documented as of this encounter Visit Diagnoses Diagnosis MyCode Research Other*[id number]- Primary documented in this encounter Advance Directives * Full Code (Latest Code Status on File) Date Activated Date Inactivated Comments 10/11/2017 9:23 AM 10/13/2017 10:36 PM This order r eflects the patients wishes and were consensually agreed upon. Care Teams Aviation Safety Equipment Technician Relationship Specialty Start Date End Date Myesha Cavanaugh MD [address] [facility] [place] [address] PCP - General Family Medicine 02/18/22 documented as of this encounter
--- OUTSIDE RECORDS SUMMARY | 2024-04-17 01:46 | External Medical Summary | Summary of Care ---
Author Name Unknown Organization [facility] Address [address] [place] [address] Phone [phone] Care Team Providers Care Senior Insight Manager Name Role Phone Myesha Cavanaugh MD Primary Care Provid er Reason for Referral * Evaluate & Treat - Unlimited Visits (Within 10 days (routine)) - Pending Review Specialty Diagnoses / Procedures Referred By Jun garay Referred To Contact HOME CARE / Home Care Diagnoses Spinal stenosis of lumbar region with neurogenic claudication Myesha Cavanaugh MD [address] [place] [address] Referral ID Status Reason Start Date Expiration Date Visits Requested Visits Authorized [id number] Pending Review Specialty Services Required 01/10/[phone] Question Answer Referral Priority Within 10 days (routine) Where should this appointment be scheduled? Willy Comments Documentation of Aexl-sh-Ifkx Encounter Addendum Patient Name: Poppy Adhikari I certify that this patient is under my care and that I, or a nurse practitioner or physician's assistant community manager working with me, had a [id number] encounter that meets the physician gpfd-[id number] encounter requirements with this patient on: 12/29/2023 The encounter with the patient was in whole, or in part, for the following medical condition, which is the primary reason for home health care (List medical condition): Medication management I certify that, based on my findings, the following services are medically necessary home health services: Nursing To provide the following care/treatments: (All hospitalists not following the patient after discharge should complete this section): Medication management. Primary Care Physician to follow home care plan of care after discharge: Dr. Cavanaugh My clinical findings support the need for the above services because: Needs assistance with medication management. Further, I certify that my clinical findings support that this patient is homebound (i.e. Absences from home require considerable and taxing effort and are for medical reasons or pentecostal services or infrequently or of short duration when for other reason) because: Unsafe to leave home on her own. Physician Signature: Date of Signature: Physician Printed Name: Eyal Rene MD Reason for Visit * Reason Onset Date Comments Nurse Documentation 01/09/2024 Encounter Details Date Type Department Care Team (Late st Contact Info) Description 01/09/[address] [facility] [address] [place] [address] Myesha Cavanaugh MD [address] [place] [address] Nurse Documentation Allergies Active Allergy Reactions Criticality Noted Date Comments Amoxicillin 01/05/2017 thrush Latex 06/20/2013 Hives, rash and swelling Lisinopril 06/02/2023 COUGH Nickel Rash 12/03/2020 documented as of this encounter (statuses as of 01/10/2024) Medications Medication Sig Dispensed Refills Start Date End Date Status Spiriva Respimat 2.5 MCG/ACT Inhalation Aerosol Solution (Tiotropium [place] Monohydrate) Inhale 2 Puffs by mouth daily. 12 g 3 09/23/2021 Active Additional Information Patient not taking.Reported on 09/26/2023 Albuterol Sulfate HFA 108 (90 Base) MCG/ACT Inhalation Aerosol SolutionIndications :Exacerbation of asthma, unspecified asthma severity, unspecified whether persistent INHALE 2 PUFFS BY MOUTH EVERY 4 HOURS NEEDED FOR WHEEZING 36 g 0 07/18/2022 Active hydrOXYzine HCl 50 MG Oral TabletIndications:A nxiety,Pruritus [...] Additional Information Patient not taking.Reported on 09/26/2023 traZODone HCl 50 MG Oral Tablet (Desyrel)Indication s:Major depressive disorder with single episode, in full remission (HCC) TAKE 1 TABLET BY MOUTH AT BEDTIME 90 Tablet 1 08/05/2023 Active Montelukast Sodium 10 MG Oral Tablet (Singulair)Indicati [...] once daily 90 Tablet 1 10/11/2023 Active Omeprazole 40 MG Oral Capsule Delayed Release (PriLOSEC)Indicatio ns:Nausea and vomiting, unspecified vomiting type Take 1 Capsule by mouth in the morning and 1 Capsule before bedtime. 60 Capsule 3 10/16/2023 Active LORazepam 0.5 MG Oral Tablet (Ativan)Indications :Anxiety TAKE 1 TABLET BY MOUTH ONCE DAILY NEEDED FOR ANXIETY 30 Tablet 0 10/27/2023 Active FLUoxetine HCl 40 MG Oral Capsule [...] as of this encounter (statuses as of 01/10/2024) Active Problems Problem Noted Date Diagnosed Date [...] as of this encounter (statuses as of 01/10/2024) Resolved Problems Problem Noted Date Diagnosed Date Resolved Date Food insecurity 04/19/2021 08/26/2021 Overview: [facility] Protocol Asthma exacerbation 03/30/2015 07/07/20 17 Moderate persistent asthma 11/09/2014 0 03/30/2015 Overview: PFT Pneumonitis 07/24/2014 01/06/2022 Asthma exacerbation 07/24/2014 03/30/20 15 documented as of this encounter (statuses as of 01/10/2024) Immunizations Name Administration Dates Next Due PPD [...] Answer Date Recorded PHQ Adult Total Score 16 11/24/2023 Hunger Vital Sign Answer Date Recorded Within [...] Telephone Encounter - Sydnie Craft LPN - 01/10/2024 9:13 AM EDT Referral faxed to office at [phone] * Telephone Encounter - Eyal Rene MD - 01/10/2024 9:01 AM EDT Home health referral placed. Can we please fax. Eyal Rene MD * Telephone Encounter - Andrea Hughes OSA - 01/09/2024 3:21 PM EDT Elke calling from [facility] Home Health pt was discharge recently from [facility] due to spinal stenosis. Elek received order to see pt on 01/06 or 01/07. Elke states they could not come to pt's home dueto staffing issues. Ynes needs a new order with start date of tomorrow 01/09 for home health services. Please fax to [phone]. documented in this encounter Plan of Treatment Upcoming Encounters Date Type Department Care Team (Latest Contact Info) Description 01/12/2024 2:00 PM EDT Office Visit [facility] [address] [place] [phone] Myesha Cavanaugh MD [address] [place] [address] 01/18/2024 1:30 PM EDT Hospital Encounter ENDO [facility], Endoscopy Room [facility] [address] [place] [phone] Erika Rios DO [address] [place] [address] 01/18/2024 1:30 PM EDT - 01/18/2024 2:30 PM EDT Surgery ENDO [facility], Endoscopy Room [facility] [address] [place] [phone] Erika Rios DO [address] [place] [address] COLONOSCOPY FLEXIBLE PROXIMAL DIAGNOSTIC 01/23/2024 1:00 PM EDT Imaging Radiology [facility] [address] [facility] [place] [address] 02/06/2024 4:30 PM EDT Laboratory Laboratory, [facility] [address] [facility] [place] [phone] [facility] [address] [facility] [place] [address] 02/12/2024 3:30 PM EDT Office Visit Hematology/Oncolog y [facility] [address] [facility] [place] [phone] Jenna Yanes CRNP [address] [facility] [place] [address] 03/15/2024 4:00 PM EDT Office Visit Nephrology, [facility] [address] [facility] [place] [address] Chon Whitley MD [address] [facility] [place] [address] Scheduled Procedures Name Priority Associated Diagnoses Date/Ti me COLONOSCOPY FLEXIBLE PROXIMA L DIAGNOSTIC Nausea & vomiting Unintentional weight loss 01/18/2024 1:30 PM EDT ESOPHAGOGASTRODUODENOSCOPY ( EGD), FLEXIBLE, TRANSORAL, DIAGNOSTIC Nausea & vomiting Unintentional weight loss 01/18/2024 1:30 PM EDT Scheduled Referrals Name Type Priority Associated Diagnoses Orde r Schedule HOME HEALTH REFERRAL OP Referral Within 10 days (routine) Spinal stenosis of lumbar region with neurogenic claudication Ordered: 01/10/2024 Health Maintenance Due Date Last Done Comments [...] fire each visit until score < 10) 11/25/2023 11/24/2023 Mammogram 01/18/2024 01/17/2023, 05/0 05/2023, 06/27/2013 Influenza Vaccine (FLU shot) (Season Ended) 2024 07/07/2017, 06/20/2013 O2 ASSESSMENT COMPLETED IN PAST YEAR FOR COPD 12/04/2024 12/05/2023 GFR 12/30/2024 12/31/2023, 04/2 , 11/28/2023, Additional history exists Albumin/Creatinine Ratio 09/01/2026 09/01/2023 Lipid Panel 05/11/2027 05/11/2022 Colonoscopy 09/27/2033 09/27/2023 Colorectal Cancer Screening 09/27/2033 GARDASIL-HPV IMMUNIZATION SERIES Aged Out No longer eligible based on patient's age to complete this topic MENINGOCOCCAL (MENACTRA/MENVEO) Aged Out No longer eligible based on patient's age to complete this topic documented as of this encounter Medical Devices Implanted Type Area Media Marketing Manager Device Identifier Shelf Expiration Date Model / Serial / Lot Vitoss Bimodal Foam Pack 10cc - [id number] Implanted:Qty : 2 on 10/11/2017 by Rosendo Nathan, at [facility] N/A: Spine Lumbar SARAH : SPINE 03/08/2019 [id number] / / [id number] Vitoss Bimodal Foam Pack 10cc - [id number] Implanted:Qty : 1 on 10/11/2017 by Rosendo Nathan, at [facility] N/A: Spine Lumbar SARAH : SPINE 02/05/2019 [id number] / / [id number] Screw Audie Bina 3 Ti Set - [id number] Implanted:Qty : 4 on 10/11/2017 by Rosendo Nathan, at [facility] N/A: Spine Lumbar SARAH : SPINE [id number] / / 6.5 X 50 Mm Serrate Screws Implanted:Qty : 2 on 10/11/2017 by Rosendo Nathan DO at [facility] N/A: Spine Lumbar SARAH : SPINE [id number] / / 6.5 X 45 Mm Serrate Screw Implanted:Qty : 2 on 10/11/2017 by Rosendo Nathan DO at [facility] N/A: Spine Lumbar SARAH : SPINE [id number] / / 9 X 23x 6 - 9mm Pl Implanted:Qty : 1 on 10/11/2017 by Rosendo Nathan DO at [facility] N/A: Spine Lumbar SARAH : SPINE [id number] / / Shashank Bina 3 Ti 6x40mm - [id number] Implanted:Qty : 1 on 10/11/2017 by Rosendo Nathan DO at [facility] N/A: Spine Lumbar SARAH : SPINE [id number] / / Shashank Bina 3 Ti 6x45mm - [id number] Implanted:Qty : 1 on 10/11/2017 by Rosendo Nathan DO at [facility] N/A: Spine Lumbar SARAH : SPINE [id number] / / documented as of this encounter Visit Diagnoses Diagnosis Spinal stenosis of lumbar region with neurogenic claudication- Primary Spinal stenosis, lumbar region, with neurogenic claudication Nausea & vomiting Nausea with vomiting Unintentional weight loss Loss of weight documented in this encounter Advance Directives Latest Code Status on File Code Status Date Activated Date Inactivated Comments Full Code 10/11/2017 9:23 AM 10/13/2017 10:36 PM This order reflects the patients wishes and were consensually agreed upon. Care Teams Senior Insight Manager Relationship Specialty Start Date End Date Myesha Cavanaugh MD [address] [place] [address] PCP - General Family Medicine 02/18/22 documented as of this encounter
--- OUTSIDE RECORDS SUMMARY | 2024-04-17 01:46 | External Medical Summary | Summary of Care ---
Author Name Unknown Organization [facility] Address [address] [place] [place] [facility] [place] [address] Phone [phone] Care Team Providers Care Primer Charging Tool Setter Name Role Phone Олег Frias MD Primary Care Provid er Reason for Visit * Reason Comments eRx-Medication Refill Encounter Details Date Type Department Care Team (Late st Contact Info) Description 01/16/2024 Refill [facility] [address] [place] [phone] Олег Frias MD [address] [place] [address] Major depressive disorder with single episode, in full remission (HCC); Anxiety Allergies Active Allergy Reactions Criticality Noted Date Comments Amoxicillin 01/05/2017 thrush Latex 06/20/2013 Hives, rash and swelling Lisinopril 06/02/2023 COUGH Nickel Rash 12/03/2020 documented as of this encounter (statuses as of 01/18/2024) Medications Medication Sig Dispensed Refills Start Date End Date Status Spiriva Respimat 2.5 MCG/ACT Inhalation Aerosol Solution (Tiotropium [place] Monohydrate) Inhale 2 Puffs by mouth daily. 12 g 3 09/23/2021 Active Additional Information Patient not taking.Reported on 09/26/2023 Albuterol Sulfate HFA 108 (90 Base) MCG/ACT Inhalation Aerosol SolutionIndicatio ns:Exacerbation of asthma, unspecified asthma severity, unspecified whether persistent INHALE 2 PUFFS BY MOUTH EVERY 4 HOURS NEEDED FOR WHEEZING 36 g 0 07/18/2022 Active hydrOXYzine HCl 50 MG Oral TabletIndications :Anxiety,Pruritus [...] Omeprazole 40 MG Oral Capsule Delayed Release (PriLOSEC)Indicat ions:Nausea and vomiting, unspecified vomiting type Take 1 Capsule by mouth in the morning and 1 Capsule before bedtime. 60 Capsule 3 10/16/2023 Active FLUoxetine HCl 40 MG Oral Capsule [...] every 6 hours as needed. 0 Active HYDROcodone-Aceta minophen 7.5-325 MG Oral TabletIndications [...] FOR ANXIETY 30 Tablet 0 01/18/2024 Active traZODone HCl 50 MG Oral Tablet (Desyrel)Indicati ons:Major depressive disorder with single episode, in full remission (HCC) TAKE 1 TABLET BY MOUTH AT BEDTIME 90 Tablet 1 08/05/2023 01/17/20 24 Discontinued LORazepam 0.5 MG Oral Tablet (Ativan)Indicatio ns:Anxiety TAKE 1 TABLET BY MOUTH ONCE DAILY NEEDED FOR ANXIETY 30 Tablet 0 10/27/2023 01/18/20 24 Discontinued documented as of this encounter (statuses as of 01/18/2024) Active Problems Problem Noted Date Diagnosed Date [...] as of this encounter (statuses as of 01/18/2024) Resolved Problems Problem Noted Date Diagnosed Date Resolved Date Food insecurity 04/19/2021 08/26/2021 Overview: Per [facility] Protocol Asthma exacerbation 03/30/2015 07/07/20 17 Moderate persistent asthma 11/09/2014 0 03/30/2015 Overview: PFT Pneumonitis 07/24/2014 01/06/2022 Asthma exacerbation 07/24/2014 03/30/20 15 documented as of this encounter (statuses as of 01/18/2024) Immunizations Name Administration Dates Next Due PPD [...] encounter Miscellaneous Notes * Telephone Encounter - Олег Frias MD - 01/18/2024 8:59 AM EDT Signed Prescriptions: Disp Refills traZODone HCl 50 MG Oral Tablet (Desyrel) 90 Tab*1 Sig: TAKE 1 TABLET BY MOUTH AT BEDTIME Authorizing Provider: ОЛЕГ FRIAS Ordering User: KRISH ELLIS LORazepam 0.5 MG Oral Tablet (Ativan) 30 Tab*0 Sig: TAKE 1 TABLET BY MOUTH ONCE DAILY NEEDED FOR ANXIETY Authorizing Provider: ОЛЕГ FRIAS * Telephone Encounter - Krish Ellis [facility] - 01/17/2024 3:54 PM EDTPending Prescriptions: Disp Refills LORazepam 0.5 MG Oral Tablet (Ativan) 30 Tab*0 Sig: TAKE 1 TABLET BY MOUTH ONCE DAILY NEEDED FOR ANXIETY Signed Prescriptions: Disp Refills traZODone HCl 50 MG Oral Tablet (Desyrel) 90 Tab*1 Sig: TAKE 1 TABLET BY MOUTH AT BEDTIME Authorizing Provider: ОЛЕГ FRIAS Ordering User: KRISH ELLIS * Telephone Encounter - Krish Ellis RP - 01/17/2024 3:51 PM EDT I have reviewed the patients controlled substance dispensing history in the Prescription Drug Monitoring Program in compliance with the [facility] regulations before prescribing a controlled substance. PDMP checked on 01/17/2024. Pending Prescriptions: Disp Refills traZODone HCl 50 MG Oral Tablet (Desyrel)*90 Tab*0 Sig: TAKE 1 TABLET BY MOUTH AT BEDTIME LORazepam 0.5 MG Oral Tablet (Ativan) [Ph*30 Tab*0 Sig: TAKE 1 TABLET BY MOUTH ONCE DAILY NEEDED FOR ANXIETY Last Visit: 12/11/2023 (in office), 10/16/2023 (telemedicine) Next Visit: Visit date not found Date medication was last filled: 10/27/23 Date medication is due for refill: 11/25/23 Pharmacy: [facility] [address] [address] [place] [place] Is this request for a controlled substance? Yes and Urine Drug Screen Not completed Toxicology results: No results found for this or any previous visit. Please approve if appropriate. ThanksKrish PharmD Clinical Pharmacist [facility] ([facility]) [phone] 01/17/2024, 3:51 PM documented in this encounter Plan of Treatment Upcoming Encounters Date Type Department Care Team (Late st Contact Info) Description 02/06/2024 4:30 PM EDT Laboratory Laboratory, [facility] [address] [facility] [place] [phone] Mare [facility] [address] [facility] [place] [address] 02/12/2024 3:30 PM EDT Office Visit Hematology/Oncology [facility] [address] [place] [phone] Jenna Yanes CRNP [address] [facility] [place] [id number] 03/15/2024 4:00 PM EDT Office Visit Nephrology, [facility] [address] [place] [address] Chon Whitley MD [address] [place] [address] Scheduled Procedures Name Priority Associated Diagnoses Date/Ti [...] this encounter Medical Devices Implanted Type Area Packaging Machine Supplies Distributor Device Identifier Shelf Expiration Date Model / Serial / Lot Vitoss Bimodal Foam Pack 10cc - [id number] Implanted:Qty : 2 on 10/11/2017 by Rosendo Nathan, DO at [facility] N/A: Spine Lumbar SARAH : SPINE 03/08/2019 / / [id number] Vitoss Bimodal Foam Pack 10cc - [id number] Implanted:Qty : 1 on 10/11/2017 by Rosendo Nathan DO at [facility] N/A: Spine Lumbar SARAH : SPINE 02/05/2019 / / [id number] Screw Audie Bina 3 Ti Set - [id number] Implanted:Qty : 4 on 10/11/2017 by Rosendo Nathan DO at [facility] N/A: Spine Lumbar SARAH : SPINE [id number] / / 6.5 X 50 Mm Serrate Screws Implanted:Qty : 2 on 10/11/2017 by Rosendo Nathan DO at [facility] N/A: Spine Lumbar SARAH : SPINE [id number] / / 6.5 X 45 Mm Serrate Screw Implanted:Qty : 2 on 10/11/2017 by Rosendo Nathan DO at [facility] N/A: Spine Lumbar SARAH : SPINE [id number] / / 9 X 23x 6 - 9mm Pl Implanted:Qty : 1 on 10/11/2017 by Rosendo Nathan DO at [facility] N/A: Spine Lumbar SARAH : SPINE [id number] / / Shashank Bina 3 Ti 6x40mm - [id number] Implanted:Qty : 1 on 10/11/2017 by Rosendo Nathan DO at [facility] N/A: Spine Lumbar SARHA : SPINE [id number] / / Shashank Bina 3 Ti 6x45mm - [id number] Implanted:Qty : 1 on 10/11/2017 by Rosendo Nathan DO at [facility] N/A: Spine Lumbar SARAH : SPINE [id number] / / documented as of this encounter Visit Diagnoses Diagnosis Major depressive disorder with single episode, in full remission (HCC) Anxiety Anxiety state, unspecified documented in this encounter Advance Directives Latest Code Status on File Code Status Date Activated Date Inactivated Comments Full Code 10/11/2017 9:23 AM 10/13/2017 10:36 PM This order reflects the patients wishes and were consensually agreed upon. Care Teams Primer Charging Tool Setter Relationship Specialty Start Date End Date Олег Frias MD [address] [facility] [place] [address] PCP - General Family Medicine 02/18/22 documented as of this encounter
--- OUTSIDE RECORDS SUMMARY | 2024-04-17 01:46 | External Medical Summary | Summary of Care ---
Author Name Unknown Organization [facility] Address [address] [place] [address] Phone [phone] Care Team Providers Care Delivery Driver Name Role Phone Myesha Cavanaugh MD Primary Care Provid er Reason for Referral * Evaluate & Treat - Unlimited Visits (Within 10 days (routine)) - Pending Review Specialty Diagnoses / Procedures Referred By Jun garay Referred To Contact HOME CARE / Home Care Diagnoses Spinal stenosis of lumbar region with neurogenic claudication Myesha Cavanaugh MD [address] [place] [address] Referral ID Status Reason Start Date Expiration Date Visits Requested Visits Authorized [id number] Pending Review Specialty Services Required 01/10/2024 999 999 Question Answer Referral Priority Within 10 days (routine) Where should this appointment be scheduled? Willy Comments Documentation of Dotx-lw-Whwk Encounter Addendum Patient Name: Poppy Adhikari I certify that this patient is under my care and that I, or a nurse practitioner or physician's delivery driver assistant working with me, had a jpbb-lo-noik encounter that meets the physician edsv-ae-plxq encounter requirements with this patient on: 12/29/2023 [...] effort and are for medical reasons or mu-ism services or infrequently or of short duration when for other reason) because: Unsafe to leave home on her own. Physician Signature: Date of Signature: Physician Printed Name: Eyal Rene MD Reason for Visit * Reason Onset Date Comments Nurse Documentation 01/09/2024 Encounter Details Date Type Department Care Team (Late st Contact Info) Description 01/09/2024 Telephone [facility] [address] [place] [address] Myesha Cavanaugh MD [address] [place] [address] Nurse Documentation Allergies Active Allergy Reactions Criticality Noted Date Comments Amoxicillin 01/05/2017 thrush Latex 06/20/2013 Hives, rash and swelling Lisinopril 06/02/2023 COUGH Nickel Rash 12/03/2020 documented as of this encounter (statuses as of 01/10/2024) Medications Medication Sig Dispensed Refills Start Date End Date Status Spiriva Respimat 2.5 MCG/ACT Inhalation Aerosol Solution (Tiotropium [place] Monohydrate) Inhale 2 Puffs by mouth daily. [...] AM EDT Referral faxed to office at [phone] * Telephone Encounter - Eyal Rene MD - 01/10/2024 9:01 AM EDT Home health referral placed. Can we please fax. Eyal Rene MD * Telephone Encounter - Andrea Hughes OSA - 01/09/2024 3:21 PM EDT Elke calling from [facility] Home Health pt was discharge recently from [facility] due to spinal stenosis. Elke received order to see pt on 01/06 or 01/07. Elke states they could not come to pt's home dueto staffing issues. Yens needs a new order with start date of tomorrow 01/09 for home health services. Please fax to [phone]. documented in this encounter Plan of Treatment Upcoming Encounters Date Type Department Care Team (Latest Contact Info) Description 01/12/2024 2:00 PM EDT Office Visit [facility] [address] [place] [phone] Myesha Cavanaugh MD [address] [place] [address] 01/18/2024 1:30 PM EDT Hospital Encounter ENDO OSS[facility], Endoscopy Room [facility] [address] [place] [phone] Erika Rios DO [address] [place] [address] 01/18/2024 1:30 PM EDT - 01/18/2024 2:30 PM EDT Surgery ENDO O[facility]C, Endoscopy Room [facility] [address] [place] [phone] Erika Rios DO [address] [place] [address] COLONOSCOPY FLEXIBLE PROXIMAL DIAGNOSTIC 01/23/2024 1:00 PM EDT Imaging Radiology [facility] [address] [facility] [address] [facility] [place] [address] 02/06/2024 4:30 PM EDT Laboratory Laboratory, [facility] [address] [facility] [place] [phone] [facility] [address] [facility] [place], [place] [address] 02/12/2024 3:30 PM EDT Office Visit Hematology[facility]olog [facility] [address] [facility] [place] [address] Jenna Yanes CRNP [address] [facility] [place] [address] 03/15/2024 4:00 PM EDT Office Visit Nephrology, [facility] [address] [facility] [place] [address] Chon Whitley MD [address] [facility] [place] [address] Scheduled Procedures Name Priority Associated Diagnoses Date/Ti [...] this encounter Medical Devices Implanted Type Area Cadet Deck Device Identifier Shelf Expiration Date Model / Serial / Lot Vitoss Bimodal Foam Pack 10cc - [id number] Implanted:Qty : 2 on 10/11/2017 by Rosendo Nathan, at [facility] N/A: Spine Lumbar SARAH : SPINE 03/08/2019 [id number] / / [id number] Vitoss Bimodal Foam Pack 10cc - [id number] Implanted:Qty : 1 on 10/11/2017 by Rosendo Nathan, at [facility] N/A: Spine Lumbar SARAH : SPINE 02/05/2019 [id number] / / [id number] Screw Audie Bina 3 Ti Set - [id number] Implanted:Qty : 4 on 10/11/2017 by Rosendo Nathan, at [facility] N/A: Spine Lumbar SARAH : SPINE [id number] / / 6.5 X 50 Mm Serrate Screws Implanted:Qty : 2 on 10/11/2017 by Rosendo Nathan DO at [facility] N/A: Spine Lumbar SARAH : SPINE [id number] / / 6.5 X 45 Mm Serrate Screw Implanted:Qty : 2 on 10/11/2017 by Rosendo Nathan DO at [facility] N/A: Spine Lumbar SARAH : SPINE [id number] / / 9 X 23x 6 - 9mm Pl Implanted:Qty : 1 on 10/11/2017 by Rosendo Nathan DO at [facility] N/A: Spine Lumbar SARAH : SPINE [id number] / / Shashank Bina 3 Ti 6x40mm - [id number] Implanted:Qty : 1 on 10/11/2017 by Rosendo Nathan DO at [facility] N/A: Spine Lumbar SARAH : SPINE [id number] / / Shashank Bina 3 Ti 6x45mm - [id number] Implanted:Qty : 1 on 10/11/2017 by Rosendo Nathan DO at [facility] N/A: Spine Lumbar SARAH : SPINE [id number] / / documented as of this encounter [...] and were consensually agreed upon. Care Teams Delivery Driver Relationship Specialty Start Date End Date Myesha Cavanaugh MD [address] [place] [address] PCP - General Family Medicine 02/18/22 documented as of this encounter
--- OUTSIDE RECORDS SUMMARY | 2024-04-17 01:46 | External Medical Summary ---
Author Name Unknown Address Unknown Organization [id number]:[facility] [place] [address] [place] [address] Laboratory Report Ordering Provider Test Date Status LUIS FAUSTIN 12/31/2023 05:40:00 Final Observation Date Value Abnormality Reference (Units ) Status BUN 12/31/2023 05:40:00 9 6-20 (mg/dL) Final Creatinine 12/31/2023 05:40:00 0.7 0.5-1.0 (mg/dL) Final Glomerular filtration rate/1.73 sq M.predicted [Volume Rate/Area] in Serum, Plasma or Blood by Creatinine-based formula (CKD-EPI) 12/31/2023 05:40:00 >90 >=60 (mL/min) Final eGFR is calculated based on the CKD-EPI 2020 equation Sodium 12/31/2023 05:40:00 142 135-146 (m mol/L) Final Potassium 12/31/2023 05:40:00 4.1 3.5-5.1 (m mol/L) Final Cl 12/31/2023 05:40:00 103 98-107 (mm ol/L) Final CO2 12/31/2023 05:40:00 27 22-32 (mmo l/L) Final Anion gap 12/31/2023 05:40:00 12 7-15 (mmol /L) Final Glucose 12/31/2023 05:40:00 95 70-120 (mg /dL) Final Calcium 12/31/2023 05:40:00 9.1 8.4-10.2 ( mg/dL) Final Performing Location [facility] [place] [address] [place] [address]
--- OUTSIDE RECORDS SUMMARY | 2024-04-17 01:46 | External Medical Summary | Summary of Care ---
Author Name Unknown Organization [facility] Address [address] [place] [address] Phone [phone] Care Team Providers Care Event Planner Name Role Phone Myesha Cavanaugh MD Primary Care Provid er Reason for Referral * Evaluate & Treat - Unlimited Visits (Within 10 days (routine)) - Pending Review Specialty Diagnoses / Procedures Referred By Jun garay Referred To Contact HOME CARE / Home Care Diagnoses Spinal stenosis of lumbar region with neurogenic claudication Myesha Cavanaugh MD [address] [place] [address] Referral ID Status Reason Start Date Expiration Date Visits Requested Visits Authorized [id number] Pending Review Specialty Services Required 01/10/2024 999 999 Question Answer Referral Priority Within 10 days (routine) Where should this appointment be scheduled? Willy Comments Documentation of Miqy-qv-Ptaw Encounter Addendum Patient Name: Poppy Adhikari I certify that this patient is under my care and that I, or a nurse practitioner or physician's orthotics prosthetics assistant working with me, had a rtqj-ze-skiy encounter that meets the physician tkue-dw-axab encounter requirements with this patient on: 12/29/2023 [...] effort and are for medical reasons or synagogue services or infrequently or of short duration when for other reason) because: Unsafe to leave home on her own. Physician Signature: Date of Signature: Physician Printed Name: Eyal Rene MD Encounter Details Date Type Department Care Team (Late st Contact Info) Description 01/09/2024 Telephone [facility] [address] [place] [address] Myesha Cavanaugh MD [address] [place] [address] Allergies Active Allergy Reactions Criticality Noted Date Comments Amoxicillin 01/05/2017 thrush Latex 06/20/2013 Hives, rash and swelling Lisinopril 06/02/2023 COUGH Nickel Rash 12/03/2020 documented as of this encounter (statuses as of 01/10/2024) Medications Medication Sig Dispensed Refills Start Date End Date Status Spiriva Respimat 2.5 MCG/ACT Inhalation Aerosol Solution (Tiotropium [place] Monohydrate) Inhale 2 Puffs by mouth daily. [...] encounter Miscellaneous Notes * Telephone Encounter - Eyal Rene MD - 01/10/2024 9:01 AM EDT Home health referral placed. Can we please fax. Eyal Rene MD * Telephone Encounter - Andrea Hughes OSA - 01/09/2024 3:21 PM EDT Elke calling from [facility] Home Health pt was discharge recently from [facility] due to spinal stenosis. Elke received order to see pt on 01/06 or 01/07. Elke states they could not come to pt's home due to staffing issues. [facility] needs a new order with start date of tomorrow 01/09 for home health services. Please fax to [phone]. documented in this encounter Plan of Treatment Upcoming Encounters Date Type Department Care Team (Latest Contact Info) Description 01/12/2024 2:00 PM EDT Office Visit [facility] [address] [place] [address] Myesha Cavanaugh MD [address] [place] [address] 01/18/2024 1:30 PM EDT Hospital Encounter ENDO OSSC, Endoscopy Room [facility] [address] [place] [phone] Erika Rios DO [address] [place] [address] 01/18/2024 1:30 PM EDT - 01/18/2024 2:30 PM EDT Surgery ENDO O[facility]C, Endoscopy Room [facility] [address] [place] [phone] Erika Rios DO [address] [place] [address] COLONOSCOPY FLEXIBLE PROXIMAL DIAGNOSTIC 01/23/2024 1:00 PM EDT Imaging Radiology [address] [place] [address] 02/06/2024 4:30 PM EDT Laboratory Laboratory, [facility] [place] [address] [place] [phone] Mare Wilkerson [address] [place] [address] 02/12/2024 3:30 PM EDT Office Visit Hematology/Oncolog y [facility] [place] [address] [facility] [place] [address] Jenna Yanes CRNP [address] [place] [address] 03/15/2024 4:00 PM EDT Office Visit Nephrology, [facility] [address] [facility] [place] [address] Chon Whitley MD [address] [facility] [place] [address] Scheduled Procedures Name Priority Associated Diagnoses Date/Ti [...] Smear 07/07/2020 07/07/2017, 07/16/2013 COVID-19 Vaccine ( season) 2023 DTaP,Tdap,and Td Vaccines (2 - [...] this encounter Medical Devices Implanted Type Area Wool Sacker Device Identifier Shelf Expiration Date Model / Serial / Lot Vitoss Bimodal Foam Pack 10cc - [id number] Implanted:Qty : 2 on 10/11/2017 by Rosendo Nathan, DO at [facility] N/A: Spine Lumbar SARAH : SPINE 03/08/2019 / / [id number] Vitoss Bimodal Foam Pack 10cc - [id number] Implanted:Qty : 1 on 10/11/2017 by Rosendo Nathan, DO at [facility] N/A: Spine Lumbar SARAH : SPINE 02/05/2019 / / [id number] Screw Audie Bina 3 Ti Set - [id number] Implanted:Qty : 4 on 10/11/2017 by Rosendo Nathan, DO at [facility] N/A: Spine Lumbar SARAH : SPINE [id number] / / 6.5 X 50 Mm Serrate Screws Implanted:Qty : 2 on 10/11/2017 by Rosendo Nathan DO at [facility] N/A: Spine Lumbar SARAH : SPINE [id number] / / 6.5 X 45 Mm Serrate Screw Implanted:Qty : 2 on 10/11/2017 by Rosendo Nathan DO at [facility] N/A: Spine Lumbar SARAH : SPINE [id number] / / 9 X 23x 6 - 9mm Pl Implanted:Qty : 1 on 10/11/2017 by Rosendo Nathan DO at [facility] N/A: Spine Lumbar SARAH : SPINE [id number] / / Shashank Bina 3 Ti 6x40mm - [id number] Implanted:Qty : 1 on 10/11/2017 by Rosendo Nathan DO at [facility] N/A: Spine Lumbar SARAH : SPINE [id number] / / Shashank Bina 3 Ti 6x45mm - [id number] Implanted:Qty : 1 on 10/11/2017 by Rosendo Nathan DO at [facility] N/A: Spine Lumbar SARAH : SPINE [id number] / / documented as of this encounter [...] and were consensually agreed upon. Care Teams Event Planner Relationship Specialty Start Date End Date Myesha Cavanaugh MD [address] [facility] [place] [address] PCP - General Family Medicine 02/18/22 documented as of this encounter
--- OUTSIDE RECORDS SUMMARY | 2024-04-17 01:46 | External Medical Summary ---
Author Name Unknown Address Unknown Organization K09:[facility] [place] [address] Laboratory Report Ordering Provider Test Date Status LUIS FAUSTIN 01/05/2024 06:00:00 Final Observation Date Value Abnormality Reference (Units ) Status WBC, Total 01/05/2024 06:00:00 9.43 4.00-10.8 0 (K/uL) Final RBC 01/05/2024 06:00:00 2.72 3.85-5.15 (M/uL) Final Hemoglobin 01/05/2024 06:00:00 8.8 Below low normal 12 .0-15.3 (g/dL) Final HCT 01/05/2024 06:00:00 26.6 Below low normal 36. 0-45.2 (%) Final MCV 01/05/2024 06:00:00 97.8 81.5-97.5 (fL) Final MCH 01/05/2024 06:00:00 32.4 27.0-34.0 (pg) Final MCHC 01/05/2024 06:00:00 33.1 32.0-36.0 (g/dL) Final RDW 01/05/2024 06:00:00 13.3 11.5-15.5 (%) Final Platelets 01/05/2024 06:00:00 529 Above high normal 14 0-400 (K/uL) Final MPV 01/05/2024 06:00:00 10.6 6.6-11.1 ( fL) Final Performing Location [facility] [place] [address]
--- OUTSIDE RECORDS SUMMARY | 2024-04-17 01:46 | External Medical Summary | Summary of Care ---
Author Name Unknown Organization [facility] Address [address] [place] [address] Phone [phone] Care Team Providers Care Painter And Decorator Apprentice Name Role Phone Myesha Cavnaaugh MD Primary Care Provid er Encounter Details Date Type Department Care Team (Late st Contact Info) Description 01/18/2024 Telephone [facility] [address] [place] [address] Myesha Cavanaugh MD [address] [place] [address] Allergies Active Allergy Reactions Criticality Noted Date Comments Amoxicillin 01/05/2017 thrush Latex 06/20/2013 Hives, rash and swelling Lisinopril 06/02/2023 COUGH Nickel Rash 12/03/2020 documented as of this encounter (statuses as of 01/18/2024) Medications Medication Sig Dispensed Refills Start Date End Date Status Spiriva Respimat 2.5 MCG/ACT Inhalation Aerosol Solution (Tiotropium [place] Monohydrate) Inhale 2 Puffs by mouth daily. [...] every 6 hours as needed. 0 Active HYDROcodone-Acetam inophen 7.5-325 MG Oral TabletIndications: History of lumbar fusion,Spinal stenosis of lumbar region with neurogenic claudication,Lumba r radiculitis,Sacroi liac joint pain Take 1 Tablet by mouth every 8 hours as needed for Pain, Severe. 90 Tablet 0 11/30/2023 Active Dulera 200-5 MCG/ACT Inhalation Aerosol (Mometasone-Formot [...] NEEDED FOR WHEEZING 36 g 0 07/18/2022 4 Discontinue d(Refill) Omeprazole 40 MG Oral Capsule Delayed Release (PriLOSEC)Indicati ons:Nausea and vomiting, unspecified vomiting type Take 1 Capsule by mouth in the morning and 1 Capsule before bedtime. 60 Capsule 3 10/16/2023 4 Discontinue d(Refill) documented as of this [...] Telephone Encounter - Myesha Cavanaugh MD - 01/18/2024 4:07 PM EDT Lorraine - 1- My understanding is that her orthopedic surgeon would be handling all postoperative pain mgmt - please reach out to him to clarify about hydrocodone and acetaminophen 2- omeprazole refill sent - 20mg daily. 3- albuterol inhaler refill sent 4- losartan ordered and sent Please monitor BP - goal systolic 130s or less and diastolic 80s or less * Telephone Encounter - Myesha Cavanaugh MD - 01/18/2024 4:07 PM EDT ----- Message from Shruthi Reyes LPN sent at 01/16/2024 4:54 PM EDT ----- ----- Message ----- From: Lorraine Olson LPC Sent: 01/16/2024 10:25 AM EDT To: Myesha Cavanaugh MD; # Sat Act InstructorChemistry Teacher: Poppy is home from rehab after having surgery on her spine. She is getting admitted to [facility] home health today. Her home health nurse is Jacquie and was there during call. Poppy gave permission to speak to her. Jacquie can be reached at [phone]. She needs to know if PCP will sign off on their orders for Poppy. Reviewing medications and home health nurse had some questions about some medications. Refills needed on : Acetaminophen but was questioning whether it should be 325 or 500 mg. Hydrocodone- Acetaminophen 7.5/325 Albuterol Sulfate inhaler Question about the Omeprazole- should it be 20 mg daily or 40 mg one in the morning and one at night. Also, Poppy was started on Losartan 50 mg daily but it was never ordered from the rehab. Poppy is still having some significant pain which is impacting her sleep and appetite. Depression and anxiety are still pretty high. Review of Systems: Review of Systems Constitutional: Positive for appetite change and fatigue. Psychiatric/Behavioral: Positive for dysphoric mood and sleep disturbance. Negative for suicidal ideas. The patient is nervous/anxious. All other systems reviewed and are negative. Care Plan Goal Progress: GS - Parent/caregiver/child will verbalize understanding of depression action plan. (Progressing) Start: 07/26/23 Expected End: 04/24/24 GS - Patient/caregiver will verbalize signs and symptoms of depression and when to notify provider.(Progressing) Start: 07/26/23 Expected End: 04/24/24 documented in this encounter Plan of Treatment Upcoming Encounters Date Type Department Care Team (Late st Contact Info) Description 02/06/2024 4:30 PM EDT Laboratory Laboratory, [facility] [place] [address] [facility] [place] [phone] [facility] [address] [facility] [address] 02/12/2024 3:30 PM EDT Office Visit Hematology/Oncology [facility] [place] [address] [facility] [place] [phone] Jenna Yanes CRNP [address] [place] [address] [place] [address] 03/15/2024 4:00 PM EDT Office Visit Nephrology, [facility] [address] [facility] [place] [address] Chon Whitley MD [address] [facility] [place] [address] Scheduled Procedures Name Priority Associated Diagnoses Date/Ti [...] this encounter Medical Devices Implanted Type Area Back Tacker Device Identifier Shelf Expiration Date Model / Serial / Lot Vitoss Bimodal Foam Pack 10cc - [id number] Implanted:Qty : 2 on 10/11/2017 by Rosendo Nathan, at [facility] N/A: Spine Lumbar SARAH : SPINE 03/08/2019 / / [id number] Vitoss Bimodal Foam Pack 10cc - [id number] Implanted:Qty : 1 on 10/11/2017 by Rosendo Nathan DO at [facility] N/A: Spine Lumbar SARAH : SPINE 02/05/2019 / / [id number] Screw Audie Bina 3 Ti Set - [id number] Implanted:Qty : 4 on 10/11/2017 by Rosendo Nathan DO at [facility] N/A: Spine Lumbar SARAH : SPINE [id number] / / 6.5 X 50 Mm Serrate Screws Implanted:Qty : 2 on 10/11/2017 by Rosendo Nathan DO at [facility] N/A: Spine Lumbar SARAH : SPINE [id number] / / 6.5 X 45 Mm Serrate Screw Implanted:Qty : 2 on 10/11/2017 by Rosendo Nathan DO at [facility] N/A: Spine Lumbar SARAH : SPINE [id number] / / 9 X 23x 6 - 9mm Pl Implanted:Qty : 1 on 10/11/2017 by Rosendo Nathan DO at [facility] N/A: Spine Lumbar SARAH : SPINE [id number] / / Shashank Bina 3 Ti 6x40mm - [id number] Implanted:Qty : 1 on 10/11/2017 by Rosendo Nathan DO at [facility] N/A: Spine Lumbar SARAH : SPINE [id number] / / Shashank Bina 3 Ti 6x45mm - [id number] Implanted:Qty : 1 on 10/11/2017 by Rosendo Nathan DO at [facility] N/A: Spine Lumbar SARAH : SPINE [id number] / / documented as of this encounter Visit Diagnoses Diagnosis Gastroesophageal reflux disease without esophagitis- Primary Esophageal reflux Nausea and vomiting, unspecified vomiting type Exacerbation of asthma, unspecified asthma severity, unspecified whether persistent documented in this encounter Advance Directives Latest Code Status on File Code Status Date Activated Date Inactivated Comments Full Code 10/11/2017 9:23 AM 10/13/2017 10:36 PM This order reflects the patients wishes and were consensually agreed upon. Care Teams Painter And Decorator Apprentice Relationship Specialty Start Date End Date Myesha Cavanaugh MD [address] [place] [address] PCP - General Family Medicine 02/18/22 documented as of this encounter
--- OUTSIDE RECORDS SUMMARY | 2024-04-17 01:47 | External Medical Summary | Summary of Care ---
Author Name Unknown Organization [facility] [address] [place] [address] Phone [phone] Care Team Providers Care Car Sweeper Name Role Phone Myesha Cavanaugh MD Primary Care Provid er Reason for Visit * Reason Onset Date Comments Pre Op Discussion 09/26/2023 Encounter Details Date Type Department Care Team (Late st Contact Info) Description 09/26/2023 Telephone OR [facility], Operating Room [facility] [address] [place] [phone] Erika Rios DO [address] [place] [id number] Pre Op Discussion Allergies Active Allergy Reactions Criticality Noted Date Comments Amoxicillin 01/05/2017 thrush Latex 06/20/2013 Hives, rash and swelling Lisinopril 06/02/2023 COUGH Nickel Rash 12/03/2020 documented as of this encounter (statuses as of 12/26/2023) Medications Medication Sig Dispensed Refills Start Date End Date Status Spiriva Respimat 2.5 MCG/ACT Inhalation Aerosol Solution (Tiotropium [place]ill Monohydrate) Inhale 2 Puffs by mouth daily. 12 g 3 2 Active Additional Information Patient not taking.Reported on 09/26/2023 Albuterol Sulfate HFA 108 (90 Base) MCG/ACT Inhalation Aerosol SolutionIndicati ons:Exacerbation of asthma, unspecified asthma severity, unspecified whether persistent INHALE 2 PUFFS BY MOUTH EVERY 4 HOURS NEEDED FOR WHEEZING 36 g 0 2 Active hydrOXYzine HCl 50 MG Oral TabletIndication s:Anxiety,Prurit us Take 1 Tablet by mouth every 6 hours as needed for Itching or Anxiety. 60 Tablet 5 3 Active Meloxicam 15 MG Oral TabletIndication s:Fibromyalgia,L umbar radiculitis Take 1 Tablet by mouth daily. Take 1-2 tabs daily for pain. 90 Tablet 1 3 Active Additional Information Patient not taking.Reported on 11/06/2023 Compressor NebulizerIndicat ions:Moderate persistent asthma without complication,PROCED TECH D, 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 Use as directed. 1 Each 1 3 Active Additional Information Patient not taking.Reported on 12/05/2023 Benzonatate 100 MG Oral CapsuleIndicatio ns:Upper respiratory tract infection, unspecified type,Acute cough Take 1 Capsule by mouth 3 times a day as needed for Cough (may make you sleepy). 15 Capsule 0 3 Active Additional Information Patient not taking.Reported on 06/14/2023 amLODIPine Besylate 5 MG Oral Tablet (Norvasc)Indicat ions:HTN, goal below 140/90 Take 1 Tablet by mouth in the morning. 90 Tablet 3 3 Active Albuterol Sulfate (2.5 MG/3ML) 0.083% Inhalation Nebulization Solution (Proventil)Indic ations:Moderate persistent asthma without complication,PROCED TECH D, 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) Inhale 1 Vial via nebulizer every 6 hours as needed for Wheezing. J45.40 J44.9 360 mL 11 3 Active Additional Information Patient not taking.Reported on 09/26/2023 Azithromycin 250 MG Oral Tablet (Zithromax Z-Nabil)Indication s:Protracted URI,Fatigue, unspecified type Take two tablets by mouth on first day, then 1 tablet daily until gone 6 Tablet 0 3 Active Additional Information Patient not taking.Reported on 09/26/2023 traZODone HCl 50 MG Oral Tablet (Desyrel)Indicat ions:Major depressive disorder with single episode, in full remission (HCC) TAKE 1 TABLET BY MOUTH AT BEDTIME 90 Tablet 1 3 Active Montelukast Sodium 10 MG Oral Tablet (Singulair)Indic ations:Chronic cough Take 1 Tablet by mouth at bedtime. 90 Tablet 3 3 Active Pregabalin 150 MG Oral Capsule (Lyrica)Indicati ons:Spinal stenosis of lumbar region with neurogenic claudication Take 1 Capsule by mouth in the morning and 1 Capsule before bedtime. 60 Capsule 2 4 Active DULoxetine HCl 60 MG Oral Capsule Delayed Release Particles (Cymbalta)Indica tions:Fibromyalg ia,Major depressive disorder with single episode, in full remission (HCC) Take 1 Capsule by mouth in the morning. Do not cut, crush or chew. 90 Capsule 3 3 12/18/19 24 Discontinued Folic Acid 1 MG Oral TabletIndication s:Abnormal blood level of iron,Microcytic anemia,Low folic acid Take 2 Tablets by mouth in the morning. 30 Tablet 11 3 11/06/19 24 Discontinued Mometasone Furo-Formoterol Fum 200-5 MCG/ACT Inhalation Aerosol (Dulera) Inhale 2 Puffs by mouth in the morning and 2 Puffs before bedtime. 13 g 11 3 12/08/19 24 Discontinued Loratadine 10 MG Oral Tablet (EQ Allergy Relief) Take 1 tablet by mouth once daily 90 Tablet 1 3 10/11/19 24 Discontinued FLUoxetine HCl 40 MG Oral Capsule (PROzac)Indicati ons:Major depressive disorder with single episode, in full remission (HCC) Take 1 Capsule by mouth in the morning. 90 Capsule 1 3 10/27/19 24 Discontinued LORazepam 0.5 MG Oral Tablet (Ativan)Indicati ons:Anxiety Take 1 Tablet by mouth daily as needed for Anxiety. 30 Tablet 0 3 10/27/19 24 Discontinued Omeprazole 40 MG Oral Capsule Delayed Release (PriLOSEC)Indica tions:RUQ abdominal pain Take 1 Capsule by mouth in the morning. 1 hour before the first meal of the day.. 90 Capsule 0 4 10/16/19 24 Discontinued(Ref ill) Magnesium 100 MG Oral Tablet Take 4 Tablets by mouth in the morning. 120 Tablet 1 4 10/19/19 24 HYDROcodone-Acet aminophen 7.5-325 MG Oral TabletIndication s:History of lumbar fusion,Spinal stenosis of lumbar region with neurogenic claudication,Lum bar radiculitis,Sacr oiliac joint pain Take 1 Tablet by mouth every 8 hours as needed for Pain, Severe. Do not start before September 22, 2023. 90 Tablet 0 4 11/07/19 24 Discontinued(Ref ill) documented as of this encounter (statuses as of 12/26/2023) Active Problems Problem Noted Date Diagnosed Date [...] as of this encounter (statuses as of 12/26/2023) Resolved Problems Problem Noted Date Diagnosed Date Resolved Date Food insecurity 04/19/2021 08/26/2021 Overview: Per [facility] Protocol Asthma exacerbation 03/30/2015 07/07/20 17 Moderate persistent asthma 11/09/2014 0 03/30/2015 Overview: PFT Pneumonitis 07/24/2014 01/06/2022 Asthma exacerbation 07/24/2014 03/30/20 15 documented as of this encounter (statuses as of 12/26/2023) Immunizations Name Administration Dates Next Due PPD [...] Yes 10/12/2017 documented as of this encounter Plan of Treatment Upcoming Encounters Date Type Department Care Team (Latest Contact Info) Description 01/18/2024 1:30 PM EDT Hospital Encounter ENDO [facility], Endoscopy Room [facility] [address] [place], [place] [phone] Erika Rios, DO [address] [place], [place] [address] 01/18/2024 1:30 PM EDT - 01/18/2024 2:30 PM EDT Surgery ENDO [facility], Endoscopy Room [facility] [address] [place], [place] [phone] Erika Rios, DO [address] [place], [place] [address] COLONOSCOPY FLEXIBLE PROXIMAL DIAGNOSTIC 01/23/2024 1:00 PM EDT Imaging Radiology [address] [facility] [place] [address] 02/06/2024 4:30 PM EDT Laboratory Laboratory, [facility] [address] [facility] [place] [phone] [facility] [address] [facility] [place], [place] [address] 02/12/2024 3:30 PM EDT Office Visit Hematology/Oncolog y [facility] [place] [address] [facility] [place] [phone] Jenna Yanes CRNP [address] [facility] [place] [address] 03/15/2024 4:00 PM EDT Office Visit Nephrology, [facility] [place] [address] [place] [address] Chon Whitley MD [address] [place] [address] Scheduled Procedures Name Priority Associated Diagnoses Date/Ti me COLONOSCOPY FLEXIBLE PROXIMA L DIAGNOSTIC Nausea & vomiting Unintentional weight loss 01/18/2024 1:30 PM EDT ESOPHAGOGASTRODUODENOSCOPY ( EGD), FLEXIBLE, TRANSORAL, DIAGNOSTIC Nausea & vomiting Unintentional weight loss 01/18/2024 1:30 PM EDT Health Maintenance Due Date Last Done Comments [...] < 10) 11/25/2023 11/24/2023 Mammogram 01/18/2024 01/17/2023, 05/2023, 06/27/2013 Influenza Vaccine (FLU shot) (Season Ended) 2024 07/07/2017, 06/20/2013 GFR 11/27/2024 11/28/2023, 10/13, 10/25/2023, Additional history exists O2 ASSESSMENT COMPLETED IN PAST YEAR FOR COPD 12/04/2024 12/05/2023 Albumin/Creatinine Ratio 09/01/2026 09/01/2023 Lipid Panel 05/11/2027 05/11/2022 Colonoscopy 09/27/2033 09/27/2023 Colorectal Cancer Screening 09/27/2033 GARDASIL-HPV IMMUNIZATION SERIES Aged Out No longer eligible based on patient's age to complete this topic MENINGOCOCCAL (MENACTRA/MENVEO) Aged Out No longer eligible based on patient's age to complete this topic documented as of this encounter Medical Devices Implanted Type Area Zyglo Inspector Device Identifier Shelf Expiration Date Model / Serial / Lot Vitoss Bimodal Foam Pack 10cc - [id number] Implanted:Qty : 2 on 10/11/2017 by Rosendo Nathan DO at [facility] N/A: Spine Lumbar SARAH : SPINE 03/08/2019 / / [id number] Vitoss Bimodal Foam Pack 10cc - [id number] Implanted:Qty : 1 on 10/11/2017 by Rosendo Nathan DO at [facility] N/A: Spine Lumbar SARAH : SPINE 02/05/2019 / / [id number] Screw Audie Bina 3 Ti Set - [id number] Implanted:Qty : 4 on 10/11/2017 by Rosendo Nathan DO at [facility] N/A: Spine Lumbar SARAH : SPINE [id number] / / 6.5 X 50 Mm Serrate Screws Implanted:Qty : 2 on 10/11/2017 by Rosendo Nathan DO at [facility] N/A: Spine Lumbar SARAH : SPINE [id number] / / 6.5 X 45 Mm Serrate Screw Implanted:Qty : 2 on 10/11/2017 by Rosendo Nathan DO at [facility] N/A: Spine Lumbar SARAH : SPINE [id number] / / 9 X 23x 6 - 9mm Pl Implanted:Qty : 1 on 10/11/2017 by Rosendo Nathan DO at [facility] N/A: Spine Lumbar SARAH : SPINE [id number] / / Shashank Bina 3 Ti 6x40mm - [id number] Implanted:Qty : 1 on 10/11/2017 by Rosendo Nathan DO at [facility] N/A: Spine Lumbar SARAH : SPINE [id number] / / Shashank Bina 3 Ti 6x45mm - [id number] Implanted:Qty : 1 on 10/11/2017 by Rosendo Nathan DO at [facility] N/A: Spine Lumbar SARAH : SPINE [id number] / / documented as of this encounter Advance Directives Latest Code Status on File Code Status Date Activated Date Inactivated Comments Full Code 10/11/2017 9:23 AM 10/13/2017 10:36 PM This order reflects the patients wishes and were consensually agreed upon. Care Teams Car Sweeper Relationship Specialty Start Date End Date Myesha Cavanaugh MD [address] [place] [address] PCP - General Family Medicine 02/18/22 documented as of this encounter
--- OUTSIDE RECORDS SUMMARY | 2024-04-17 01:47 | External Medical Summary | Summary of Care ---
Author Name Unknown Organization [facility] Address [address] [place] [facility] [place] [place] [address] Phone [phone] Care Team Providers Care Type Soldering Machine Tender Name Role Phone Myesha Cavanaugh MD Primary Care Provid er Reason for Visit * Reason Comments Physical-Exam Pre-op for neuro Encounter Details Date Type Department Care Team (Late st Contact Info) Description 12/11/2023 3:40 PM EDT Office Visit [place] [id number] [place] [id number] Myesha Cavanaugh MD [address] [place] [address] Preop examination*; Lumbar radiculopathy; MGUS (monoclonal gammopathy of unknown significance); Alcohol use disorder, severe, in early remission (HCC) Allergies Active Allergy Reactions Criticality Noted Date Comments Amoxicillin 01/05/2017 thrush Latex 06/20/2013 Hives, rash and swelling Lisinopril 06/02/2023 COUGH Nickel Rash 12/03/2020 documented as of this encounter (statuses as of 12/11/2023) Medications Medication Sig Dispensed Refills Start Date End Date Status Spiriva Respimat 2.5 MCG/ACT Inhalation Aerosol Solution (Tiotropium Vandergrift Monohydrate) Inhale 2 Puffs by mouth daily. 12 g 3 09/23/2021 Active Additional Information Patient not taking.Reported on 09/26/2023 Albuterol Sulfate HFA 108 (90 Base) MCG/ACT Inhalation Aerosol SolutionIndications :Exacerbation of asthma, unspecified asthma severity, unspecified whether persistent INHALE 2 PUFFS BY MOUTH EVERY 4 HOURS NEEDED FOR WHEEZING 36 g 0 07/18/2022 Active DULoxetine HCl 60 MG Oral Capsule Delayed Release Particles (Cymbalta)Indicatio ns:Fibromyalgia,Kartik or depressive disorder with single episode, in full remission (HCC) Take 1 Capsule by mouth in the morning. Do not cut, crush or chew. 90 Capsule 3 12/23/2022 Active hydrOXYzine HCl 50 MG Oral TabletIndications:A [...] TWICE DAILY 13 g 11 12/08/2023 Active documented as of this encounter (statuses as of 12/11/2023) Active Problems Problem Noted Date Diagnosed Date [...] as of this encounter (statuses as of 12/11/2023) Resolved Problems Problem Noted Date Diagnosed Date Resolved Date Food insecurity 04/19/2021 08/26/2021 Overview: Per [facility] Protocol Asthma exacerbation 03/30/2015 07/07/20 17 Moderate persistent asthma 11/09/2014 0 03/30/2015 Overview: PFT Pneumonitis 07/24/2014 01/06/2022 Asthma exacerbation 07/24/2014 03/30/20 15 documented as of this encounter (statuses as of 12/11/2023) Immunizations Name Administration Dates Next Due PPD [...] Smoke Exposure: Past Smokeless Tobacco: Never Tobacco Cessation:Counseling Given: Not Answered Comments:smoke 2-4 cig a [...] Sign Reading Time Taken Comments Blood Pressure 112/68 12/11/2023 3:33 PM EDT Pulse 66 12/11/2023 3:33 PM EDT Temperature 36.6 C (97.8 F) 12/11/2023 3:33 PM ED T Respiratory Rate 16 12/11/2023 3:33 PM EDT Oxygen Saturation 99% 12/11/2023 3:33 PM EDT Inhaled Oxygen Concentration - - Weight 51.3 kg (113 lb 3.2 oz) 12/11/2023 3:33 P M EDT Height 162.6 cm (5' 4") 12/11/2023 3:33 PM EDT Body Mass Index 19.43 12/11/2023 3:33 PM EDT documented in this encounter Functional [...] Progress Notes * Myesha Cavanaugh MD - 12/11/2023 3:55 PM EDT Nursing Notes: Sydnie Craft LPN 12/11/23 1539 Signed The patient has been properly identified by confirmation of name and date of . Chief Complaint Patient presents with Physical-Exam Pre-op for neuro HPI: Poppy Adhikari is a 53 year old female who is referred to me for pre operative exam. PMHx spinal stenosis / lumbar radiculopathy / h/o lumbar fusion 2018 / MDD / GERD / asthma / cigarette use in early remission / alcohol use in early remission / MGUS / macrocytic anemia Recent visit reviewed - with her orthopedic surgeon Dr. Nathan [facility] - "left- sided paraspinal lumbosacral back pain with radicular component which travels down her left leg in a L3, L4 distribution." Denies recent fever, cough, or URI symptoms. Procedure: L3-4 decompression supplemented by L3-5 instrumented posterolateral fusion, using allograft, autograft and a bilateral pedical screw construct, possible interbody fusion device, revision of existing L4-5 instrumentation Surgeon: Dr. Nathan Date of surgery: 12/25/23 Anesthesia: general Past surgical history reviewed. Past Surgical History: Procedure Laterality Date ALLOGRAFT, MORSELIZED, FOR SPINE SURGERY N/A 10/11/2017 ALLOGRAFT FOR SPINE SURGERY MORSELIZED performed by Rosendo Nathan DO at OR [facility] AUTOGRAFT, SPINE SURGERY, LOCAL N/A 10/11/2017 OBTAIN AUTOGRAFT FOR SPINE SURGERY LOCAL performed by Rosendo Nathan DO at OR [facility] COLONOSCOPY, DIAGNOSTIC (RECTUM) 09/27/2023 COLONOSCOPY FLEXIBLE PROXIMAL DIAGNOSTIC performed by Erika Rios DO at ENDOSCOPY [facility] EGD, FLEXIBLE, DIAGNOSTIC 12/08/2020 hiatal hernia / ESOPHAGOGASTRODUODENOSCOPY (EGD), FLEXIBLE, TRANSORAL, DIAGNOSTIC performed by Omid Snell MD at ENDOSCOPY [facility] EGD, FLEXIBLE, DIAGNOSTIC 09/27/2023 ESOPHAGOGASTRODUODENOSCOPY (EGD), FLEXIBLE, TRANSORAL, DIAGNOSTIC performed by Erika Rios DO at ENDOSCOPY [facility] EGD, W/ENDOSCOPIC US 12/08/2020 fatty liver / ESOPHAGOGASTRODUODENOSCOPY (EGD), FLEXIBLE, TRANSORAL, ENDOSCOPIC ULTRASOUND performed by Omid Snell MD at ENDOSCOPY [facility] EGD, W/ENDOSCOPIC US 12/05/2023 ESOPHAGOGASTRODUODENOSCOPY (EGD), FLEXIBLE, TRANSORAL, ENDOSCOPIC ULTRASOUND performed by Omid Snell MD at ENDOSCOPY [facility] INFORMATION Left 2016 left wrist surgery tendonitis LUMBAR SPINE FUSION, POSTEROLATERAL N/A 10/11/2017 L4-5 Decompression and instrumented Fusion. Allo-autograft, Screw/shashank construct, Possible interbodyfusion device. performed by Rosendo Nathan DO at OR [facility] REMOVAL OF TONSILS, UNDER AGE 11 1974 SACROILIAC JOINT INJECT W/GUIDANCE Bilateral 07/25/2022 INJECTION SACROILIAC JOINT performed by Kash Whitfield DO at OR [facility] SACROILIAC JOINT INJECT W/GUIDANCE 12/08/2022 INJECTION SACROILIAC JOINT performed by Kash Whitfield DO at OR [facility] SACROILIAC JOINT INJECT W/GUIDANCE Bilateral 01/26/2023 INJECTION SACROILIAC JOINT performed by Kash Whitfield DO at OR [facility] SACROILIAC JOINT INJECT W/GUIDANCE 06/14/2023 INJECTION SACROILIAC JOINT performed by Michael Enriquez DO at OR [facility] SPINE FIXATION, POSTERIOR, (RUELAS) N/A 10/11/2017 POSTERIOR SPINE INSTRUMENTATION NON SEGMENTAL performed by Rosendo Nathan DO at OR [facility] H/o complications from anesthesia: none known H/o snoring: yes Patient peritinent medical history includes: - heart failure: no - CVA/TIA: no - ischemic cardiac disease: no - renal insufficiency (Transformation Manager >2.0): no - diabetes requiring insulin: no _Significant past medical problems include: Recent EGD performed in 12/05/23 noted normal esophagus and stomach, they would like to repeat in 1 year Patient Active Problem List Diagnosis Code Fibromyalgia M79.7 Tobacco use disorder F17.200 Asthma, moderate persistent J45.40 Lumbar radiculitis M54.16 Major depressive disorder with single episode, in full remission ([facility]) F32.5 Gastroesophageal reflux disease without esophagitis K21.9 History of lumbar fusion Z98.1 Spinal stenosis of lumbar region with neurogenic claudication M48.062 COPD, moderate ([facility]) J44.9 Essential (primary) hypertension I10 Severe tobacco dependence in early remission F17.201 Microcytic anemia D50.9 Microcytic anemia D50.9 Sacroiliac joint pain M53.3 Alcohol use disorder, severe, in early remission ([facility]) F10.21 MGUS (monoclonal gammopathy of unknown significance) D47.2 Past Medical History: Diagnosis Date Allergic rhinitis Arthritis Asthma Chronic back pain Depression Fibromyalgia Moderate persistent asthma 11/2014 PFT Functional capacity ( classified as excellent (>10 METS), good (7 METs to 10 METS), moderate (4 METs to 6 METS), poor (<4 METS), or unknown) calculated today using the Sky Activity Status Index (DASI) -- Perioperative cardiac and long- term risks are increased in patients unable to perform 4 METs of work during daily activities. This patient's estimated functional capacity is >4 METS Current Outpatient Medications Medication Sig Dispense Refill Albuterol Sulfate HFA 108 (90 Base) MCG/ACT Inhalation Aerosol Solution INHALE 2 PUFFS BY MOUTH EVERY 4 HOURS NEEDED FOR WHEEZING 36 g 0 DULoxetine HCl 60 MG Oral Capsule Delayed Release Particles (Cymbalta) Take 1 Capsule by mouth in the morning. Do not cut, crush or chew. 90 Capsule 3 hydrOXYzine HCl 50 MG Oral Tablet Take 1 Tablet by mouth every 6 hours as needed for Itching or Anxiety. 60 Tablet 5 amLODIPine Besylate 5 MG Oral Tablet (Norvasc) Take 1 Tablet by mouth in the morning. 90 Tablet 3 traZODone HCl 50 MG Oral Tablet (Desyrel) TAKE 1 TABLET BY MOUTH AT BEDTIME 90 Tablet 1 Montelukast Sodium 10 MG Oral Tablet (Singulair) Take 1 Tablet by mouth at bedtime. 90 Tablet 3 Pregabalin 150 MG Oral Capsule (Lyrica) Take 1 Capsule by mouth in the morning and 1 Capsule beforebedtime. 60 Capsule 2 Loratadine 10 MG Oral Tablet (Claritin) Take 1 tablet by mouth once daily 90 Tablet 1 Omeprazole 40 MG Oral Capsule Delayed Release (PriLOSEC) Take 1 Capsule by mouth in the morning and1 Capsule before bedtime. 60 Capsule 3 LORazepam 0.5 MG Oral Tablet (Ativan) TAKE 1 TABLET BY MOUTH ONCE DAILY NEEDED FOR ANXIETY 30 Tablet 0 FLUoxetine HCl 40 MG Oral Capsule (PROzac) Take 1 capsule by mouth in the morning 90 Capsule 1 Folic Acid 1 MG Oral Tablet Take 1 Tablet by mouth in the morning. 90 Tablet 3 Ondansetron HCl 4 MG Oral Tablet (Zofran) TAKE 1 TABLET BY MOUTH EVERY 8 HOURS NEEDED FOR HDTACM31 Tablet 0 Acetaminophen 500 MG Oral Tablet (Tylenol) Take 2 Tablets by mouth every 6 hours as needed. HYDROcodone-Acetaminophen 7.5-325 MG Oral Tablet Take 1 Tablet by mouth every 8 hours as needed forPain, Severe. 90 Tablet 0 Dulera 200-5 MCG/ACT Inhalation Aerosol (Mometasone-Formoterol) INHALE 2 PUFFS TWICE DAILY 13 g 11 Spiriva Respimat 2.5 MCG/ACT Inhalation Aerosol Solution (Tiotropium Vandergrift Monohydrate) Inhale 2 Puffs by mouth daily. (Patient not taking: Reported on 09/26/2023) 12 g 3 Meloxicam 15 MG Oral Tablet Take 1 Tablet by mouth daily. Take 1-2 tabs daily for pain. (Patient not taking: Reported on 11/06/2023) 90 Tablet 1 Compressor Nebulizer Inhale via nebulizer. Use as directed. (Patient not taking: Reported on 12/05/2023) 1 Each 1 Benzonatate 100 MG Oral Capsule Take 1 Capsule by mouth 3 times a day as needed for Cough (may makeyou sleepy). (Patient not taking: Reported on 06/14/2023) 15 Capsule 0 Albuterol Sulfate (2.5 MG/3ML) 0.083% Inhalation Nebulization Solution (Proventil) Inhale 1 Vial via nebulizer every 6 hours as needed for Wheezing. J45.40 J44.9 (Patient not taking: Reported on 09/26/2023) 360 mL 11 Azithromycin 250 MG Oral Tablet (Zithromax Z-Nabil) Take two tablets by mouth on first day, then 1 tablet daily until gone (Patient not taking: Reported on 09/26/2023) 6 Tablet 0 No current facility-administered medications for this visit. Social History Socioeconomic History Marital status: Spouse name: Tim Number of children: 1 Years of education: Not on file Highest education level: Not on file Occupational History Occupation: [employer] Employer: [employer] Comment[place] [employer] Tobacco Use Smoking status: Former Current packs/day: 0.25 Average packs/day: 0.3 packs/day for 30.0 years (7.5 ttl pk-yrs) Types: Cigarettes Passive exposure: Past Smokeless tobacco: Never Tobacco comments: smoke 2-4 cig a day Vaping Use Vaping Use: Never used Substance and Sexual Activity Alcohol use: Yes Comment: social, every evening, beer- daily approx 6 Drug use: No Sexual activity: Yes Partners: Male Other Topics Concern Not on file Social History Narrative No mold 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 Social Determinants of Health Financial Resource Strain: Not on file Food Insecurity: No Food Insecurity (03/15/2023) Hunger Vital Sign Worried About Running Out of Food in the Last Year: Never true Ran Out of Food in the Last Year: Never true Transportation Needs: Not on file Physical Activity: Not on file Stress: Not on file Social Connections: Not on file Intimate Partner Violence: Not on file Housing Stability: Not on file ROS EXAM: CONSTITUTIONAL: No change in weight, No weakness, No fatigue, and No fevers, sweats, or chills PULMONARY: No cough, sputum, or hemoptysis, No wheezing, No rales, No shortness of breath, and No recent change in breathing CARDIOVASCULAR: No chest pain, No shortness of breath, No dyspnea on exertion, No orthopnea, No paroxysmal nocturnal dyspnea, No edema, No palpitations, and No syncope GASTROINTESTINAL: No abdominal pain, No change in bowel habits, No significant heartburn, No significant change in appetite, No nausea, vomiting, diarrhea, or constipation, No hematemesis, No blood in stools or black tarry stools, No abdominal bloating or early satiety, and No dysphagia Filed Vitals: 12/11/23 1533 BP: 112/68 Pulse: 66 Resp: 16 Temp: 36.6 C (97.8 F) SpO2: 99% Weight: 51.3 kg (113 lb 3.2 oz) Height: 1.626 m (5' 4") Physical Exam General: alert, healthy, and no distress Head: Normocephalic, No masses, lesions, tenderness or abnormalities Eye Exam: PERRLA, extraocular movements intact, conjunctiva are pink and non- injected, sclera clear Heart: regular rate & rhythm, no murmur, and no gallops Lungs: chest symmetric with normal AP diameter, no chest deformities noted, normal respiratory rateand rhythm, lungs clear to auscultation ASSESSMENT: Based upon this interview, examination and review of labwork (if relevant), patient is deemed a LOWrisk for complications of surgery. Currently medically optimized. Acceptable risk for surgery, may elect to proceed. Patient had adequate time to have questions answered and seemed satisfied with answers. Patient wasinvited to call back with any other concerns as they might arise prior to or after surgery. Preop examination (Primary) Lumbar radiculopathy MGUS (monoclonal gammopathy of unknown significance) Alcohol use disorder, severe, in early remission (HCC) CC: referring physician documented in this encounter Nursing Notes * Sydnie Craft LPN - 12/11/2023 3:39 PM EDT The patient has been properly identified by confirmation of name and date of . Chief Complaint Patient presents with Physical-Exam Pre-op for neuro documented in this encounter Plan of Treatment Upcoming Encounters Date Type Department Care Team (Latest Contact Info) Description 01/18/2024 1:30 PM EDT Hospital Encounter [facility] Endoscopy Room [facility] [address] [place] [phone] Erika Rios DO [address] [place] [address] 01/18/2024 1:30 PM EDT - 01/18/2024 2:30 PM EDT Surgery ENDO [facility], Endoscopy Room [facility] [address] [place] [phone] Erika Rios DO [address] [place] [address] COLONOSCOPY FLEXIBLE PROXIMAL DIAGNOSTIC 01/23/2024 1:00 PM EDT Imaging [facility] [address] [place] [address] 02/06/2024 4:30 PM EDT Laboratory Laboratory, [facility] [address] [place] [phone] [facility] [address] [place] [address] 02/12/2024 3:30 PM EDT Office Visit Hematology/Oncolog y [facility] [address] [place] [phone] Jenna Yanes CRNP [address] [facility] [place] [address] 03/15/2024 4:00 PM EDT Office Visit Nephrology, [facility] [address] [place] [address] Chon Whitley MD [address] [facility] [place] [address] Scheduled Procedures Name Priority Associated Diagnoses Date/Ti [...] this encounter Medical Devices Implanted Type Area Composite Laminator Device Identifier Shelf Expiration Date Model / Serial / Lot Vitoss Bimodal Foam Pack 10cc - [id number] Implanted:Qty : 2 on 10/11/2017 by [facility], at [facility] N/A: Spine Lumbar SARAH : SPINE 03/08/2019 [id number] / / [id number] Vitoss Bimodal Foam Pack 10cc - [id number] Implanted:Qty : 1 on 10/11/2017 by Rosendo Nathan DO at [facility] N/A: Spine Lumbar SARAH : SPINE 02/05/2019 [id number] / / [id number] Screw Audie Bina 3 Ti Set - [id number] Implanted:Qty : 4 on 10/11/2017 by Rosendo Nathan DO at [facility] N/A: Spine Lumbar SARAH : SPINE [id number] / / 6.5 X 50 Mm Serrate Screws Implanted:Qty : 2 on 10/11/2017 by Rosendo Nathan DO at [facility] N/A: Spine Lumbar SARAH : SPINE [id number] / / 6.5 X 45 Mm Serrate Screw Implanted:Qty : 2 on 10/11/2017 by Rosendo Nathan DO at [facility] N/A: Spine Lumbar SARAH : SPINE [id number] / / 9 X 23x 6 - 9mm Pl Implanted:Qty : 1 on 10/11/2017 by Rosendo Nathan DO at [facility] N/A: Spine Lumbar SARAH : SPINE [id number] / / Shashank Bina 3 Ti 6x40mm - [id number] Implanted:Qty : 1 on 10/11/2017 by Rosendo Nathan DO at [facility] N/A: Spine Lumbar SARAH : SPINE [id number] / / Shashank Bina 3 Ti 6x45mm - [id number] Implanted:Qty : 1 on 10/11/2017 by Rosendo Nathan DO at [facility] N/A: Spine Lumbar SARAH : SPINE [id number] / / documented as of this encounter Visit Diagnoses Diagnosis Preop examination- Primary Preoperative examination, unspecified Lumbar radiculopathy Thoracic or lumbosacral neuritis or radiculitis, unspecified MGUS (monoclonal gammopathy of unknown significance) Monoclonal paraproteinemia Alcohol use disorder, severe, in early remission (HCC) Nausea & vomiting Nausea with vomiting Unintentional weight loss Loss of weight documented in this encounter Advance Directives Latest Code Status on File Code Status Date Activated Date Inactivated Comments Full Code 10/11/2017 9:23 AM 10/13/2017 10:36 PM This order reflects the patients wishes and were consensually agreed upon. Care Teams Type Soldering Machine Tender Relationship Specialty Start Date End Date Myesha Cavanaugh MD [address] [place] [address] PCP - General Family Medicine 02/18/22 documented as of this encounter
--- OUTSIDE RECORDS SUMMARY | 2024-04-17 01:47 | External Medical Summary ---
Author Name Unknown Address Unknown Organization [id number] [address] [place] [address] Laboratory Report Ordering Provider Test Date Status LUIS FAUSTIN 12/30/2023 07:20:00 Final Observation Date Value Abnormality Reference (Units ) Status BUN 12/30/2023 07:20:00 8 6-20 (mg/dL) Final Creatinine 12/30/2023 07:20:00 0.7 0.5-1.0 (mg/dL) Final Glomerular filtration rate/1.73 sq M.predicted [Volume Rate/Area] in Serum, Plasma or Blood by Creatinine-based formula (CKD-EPI) 12/30/2023 07:20:00 >90 >=60 (mL/min) Final eGFR is calculated based on the CKD-EPI 2020 equation Sodium 12/30/2023 07:20:00 136 135-146 (m mol/L) Final Potassium 12/30/2023 07:20:00 4.1 3.5-5.1 (m mol/L) Final Cl 12/30/2023 07:20:00 98 98-107 (mm ol/L) Final CO2 12/30/2023 07:20:00 25 22-32 (mmo l/L) Final Anion gap 12/30/2023 07:20:00 13 7-15 (mmol /L) Final Glucose 12/30/2023 07:20:00 92 70-120 (mg /dL) Final Calcium 12/30/2023 07:20:00 8.9 8.4-10.2 ( mg/dL) Final Performing Location [facility] [address] [place] [address]
--- OUTSIDE RECORDS SUMMARY | 2024-04-17 01:47 | External Medical Summary ---
Author Name Unknown Address Unknown Organization [id number] [address] [place] [address] Laboratory Report Ordering Provider Test Date Status LUIS FAUSTIN 12/30/2023 07:20:00 Final Observation Date Value Abnormality Reference (Units ) Status WBC, Total 12/30/2023 07:20:00 10.66 4.00-10.8 0 (K/uL) Final RBC 12/30/2023 07:20:00 2.32 3.85-5.15 (M/uL) Final Hemoglobin 12/30/2023 07:20:00 7.8 Below low normal 12 .0-15.3 (g/dL) Final HCT 12/30/2023 07:20:00 22.5 Below low normal 36. 0-45.2 (%) Final MCV 12/30/2023 07:20:00 97.0 81.5-97.5 (fL) Final MCH 12/30/2023 07:20:00 33.6 27.0-34.0 (pg) Final MCHC 12/30/2023 07:20:00 34.7 32.0-36.0 (g/dL) Final RDW 12/30/2023 07:20:00 12.6 11.5-15.5 (%) Final Platelets 12/30/2023 07:20:00 231 140-400 (K /uL) Final MPV 12/30/2023 07:20:00 10.8 6.6-11.1 ( fL) Final Performing Location [facility] [address] [place] [id number]
--- OUTSIDE RECORDS SUMMARY | 2024-04-17 01:47 | External Medical Summary | Summary of Care ---
Author Name Unknown Organization [facility] [address] [place] [address] Phone [phone] Care Team Providers Care Manager Ecommerce Name Role Phone Myesha Cavanaugh MD Primary Care Provid er Reason for Visit * Reason Onset Date Comments Pre Op Discussion 09/21/2023 Encounter Details Date Type Department Care Team (Late st Contact Info) Description 09/21/2023 Telephone OR [facility], Operating Room [facility] [address] [place] [phone] Erika Rios DO [address] [place] [id number] Pre Op Discussion Allergies Active Allergy Reactions Criticality Noted Date Comments Amoxicillin 01/05/2017 thrush Latex 06/20/2013 Hives, rash and swelling Lisinopril 06/02/2023 COUGH Nickel Rash 12/03/2020 documented as of this encounter (statuses as of 12/21/2023) Medications Medication Sig Dispensed Refills Start Date End Date Status Spiriva Respimat 2.5 MCG/ACT Inhalation Aerosol Solution (Tiotropium [place] Monohydrate) Inhale 2 Puffs by mouth daily. 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) Inhale 1 Vial via [...] as of this encounter (statuses as of 12/21/2023) Active Problems Problem Noted Date Diagnosed Date [...] as of this encounter (statuses as of 12/21/2023) Resolved Problems Problem Noted Date Diagnosed Date Resolved Date Food insecurity 04/19/2021 08/26/2021 Overview: Per [facility] Protocol Asthma exacerbation 03/30/2015 07/07/20 17 Moderate persistent asthma 11/09/2014 0 03/30/2015 Overview: PFT Pneumonitis 07/24/2014 01/06/2022 Asthma exacerbation 07/24/2014 03/30/20 15 documented as of this encounter (statuses as of 12/21/2023) Immunizations Name Administration Dates Next Due PPD [...] [facility], Endoscopy Room [facility] [address] [place], [place] [phone] Erika Rios, DO [address] [place], [place] [address] 01/18/2024 1:30 PM EDT - 01/18/2024 2:30 PM EDT Surgery [facility], Endoscopy Room [facility] [address] [place], [place] [phone] Erkia Rios, DO [address] [place], [place] [address] COLONOSCOPY FLEXIBLE PROXIMAL DIAGNOSTIC 01/23/2024 1:00 PM EDT Imaging Radiology [address] [facility] [place] [address] 02/06/2024 4:30 PM EDT Laboratory Laboratory, [facility] [address] [facility] [place] [phone] [facility] [address] [facility] [place], [place] [address] 02/12/2024 3:30 PM EDT Office Visit Hematology/Oncolog y [facility] [address] [facility] [place] [phone] Jenna Yanes CRNP [address] [facility] [place] [address] 03/15/2024 4:00 PM EDT Office Visit Nephrology, [facility] [place] [address] [place] [address] Chon Whitley MD [address] [place] [id number] Scheduled Procedures Name Priority Associated Diagnoses Date/Ti [...] this encounter Medical Devices Implanted Type Area Development System Efficiency Manager Device Identifier Shelf Expiration Date Model / Serial / Lot Vitoss Bimodal Foam Pack 10cc - [id number] Implanted:Qty : 2 on 10/11/2017 by Rosendo Nathan DO at [facility] N/A: Spine Lumbar SARAH : SPINE 03/08/2019 / / [id number] Vitoss Bimodal Foam Pack 10cc - [id number] Implanted:Qty : 1 on 10/11/2017 by Rosendo Nathan DO at [facility] N/A: Spine Lumbar SARAH : SPINE 02/05/2019 / / [id number] Screw Audie Bina 3 Ti Set - [id number] Implanted:Qty : 4 on 10/11/2017 by Rosendo Nathan DO at [facility] N/A: Spine Lumbar SARAH : SPINE [id number] / / 6.5 X 50 Mm Serrate Screws Implanted:Qty : 2 on 10/11/2017 by Rosendo Nathan DO at [facility] N/A: Spine Lumbar SARAH : SPINE [id number] / / 6.5 X 45 Mm Serrate Screw Implanted:Qty : 2 on 10/11/2017 by Rosendo Nathan DO at [facility] N/A: Spine Lumbar SARAH : SPINE [id number] / / 9 X 23x 6 - 9mm Pl Implanted:Qty : 1 on 10/11/2017 by Rosendo Nathan DO at [facility] N/A: Spine Lumbar SARAH : SPINE [id number] / / Shashank Bina 3 Ti 6x40mm - [id number] Implanted:Qty : 1 on 10/11/2017 by Rosendo Nathan DO at [facility] N/A: Spine Lumbar SARAH : SPINE [id number] / / Shashank Bina 3 Ti 6x45mm - [id number] Implanted:Qty : 1 on 10/11/2017 by Rosendo Nathan DO at [facility] N/A: Spine Lumbar SARAH : SPINE [id number] / / documented as of this encounter Advance Directives Latest Code Status on File Code Status Date Activated Date Inactivated Comments Full Code 10/11/2017 9:23 AM 10/13/2017 10:36 PM This order reflects the patients wishes and were consensually agreed upon. Care Teams Manager Ecommerce Relationship Specialty Start Date End Date Myesha Cavanaugh MD [address] [place] [address] PCP - General Family Medicine 02/18/22 documented as of this encounter
--- OUTSIDE RECORDS SUMMARY | 2024-04-17 01:47 | External Medical Summary | Summary of Care ---
Author Name Unknown Organization [facility] Address [address] [address] Phone [phone] Care Team Providers Care Sustainable Systems Analyst Name Role Phone Myesha Cavanaugh MD Primary Care Provid er Reason for Visit * Auth/Cert Specialty Diagnoses / Procedures Referred By Jun t Referred To Contact Diagnoses Pancreatic cyst Pancreatic cyst [K86.2] Procedures EGD, W/ENDOSCOPIC US ESOPHAGOGASTRODUODENOSCOPY (EGD), FLEXIBLE, TRANSORAL, ENDOSCOPIC ULTRASOUND Omid Snell MD [address] [place] [id number] [facility] [address] [place] [phone] Referral ID Status Reason Start Date Expiration Date Visits Re quested Visits Authorized [id number] Encounter Details Date Type Department Care Team (Latest Contact Info) Description 12/05/2023 10:07 AM EDT - 12/05/2023 12:46 PM EDT Hospital Encounter [facility], Endoscopy Room [facility] [address] [place] [phone] Omid Snell MD [address] [place] [phone] Upper Endoscopic US Discharge Disposition: Home - Self Care Allergies Active Allergy Reactions Criticality Noted Date Comments Amoxicillin 01/05/2017 thrush Latex 06/20/2013 Hives, rash and swelling Lisinopril 06/02/2023 COUGH Nickel Rash 12/03/2020 documented as of this encounter (statuses as of 12/06/2023) Medications Medication Sig Dispensed Refills Start Date End Date Status Spiriva Respimat 2.5 MCG/ACT Inhalation Aerosol Solution (Tiotropium [place] Monohydrate) Inhale 2 Puffs by mouth daily. [...] or chew. 90 Capsule 3 12/23/2022 Active Mometasone Furo-Formoterol Fum 200-5 MCG/ACT Inhalation Aerosol (Dulera) Inhale 2 Puffs by mouth in the morning and 2 Puffs before bedtime. 13 g 11 01/06/2023 Active Additional Information Patient not taking.Reported on 11/23/2023 hydrOXYzine HCl 50 MG Oral TabletIndications: Anxiety,Pruritus [...] 09/26/2023 traZODone HCl 50 MG Oral Tablet (Desyrel)Indicatio ns:Major depressive disorder with single episode, in full remission (HCC) TAKE 1 TABLET BY MOUTH AT BEDTIME 90 Tablet 1 08/05/2023 Active Montelukast Sodium 10 MG Oral Tablet (Singulair)Indicat [...] 10/16/2023 Active LORazepam 0.5 MG Oral Tablet (Ativan)Indication s:Anxiety TAKE 1 TABLET BY MOUTH ONCE DAILY NEEDED FOR ANXIETY 30 Tablet 0 10/27/2023 Active FLUoxetine HCl 40 MG Oral Capsule (PROzac)Indication s:Major depressive disorder with single episode, in full remission ([facility]) Take 1 capsule by mouth in the [...] Pain, Severe. 90 Tablet 0 11/30/2023 Active HYDROcodone-Acetam inophen 7.5-325 MG Oral TabletIndications: History of lumbar fusion,Spinal stenosis of lumbar region with neurogenic claudication,Lumba r radiculitis,Sacroi liac joint pain Take 1 Tablet by mouth every 8 hours as needed for Pain, Severe. 90 Tablet 0 11/07/2023 Discontinue d(Refill) documented as of this encounter (statuses as of 12/06/2023) Active Problems Problem Noted Date Diagnosed Date [...] as of this encounter (statuses as of 12/06/2023) Resolved Problems Problem Noted Date Diagnosed Date Resolved Date Food insecurity 04/19/2021 08/26/2021 Overview: Per [facility] Protocol Asthma exacerbation 03/30/2015 07/07/20 17 Moderate persistent asthma 11/09/2014 0 03/30/2015 Overview: PFT Pneumonitis 07/24/2014 01/06/2022 Asthma exacerbation 07/24/2014 03/30/20 15 documented as of this encounter (statuses as of 12/06/2023) Immunizations Name Administration Dates Next Due PPD [...] Sign Reading Time Taken Comments Blood Pressure 129/73 12/05/2023 12:25 PM EDT Pulse 71 12/05/2023 12:25 PM EDT Temperature 36.2 C (97.2 F) 12/05/2023 12:25 PM E DT Respiratory Rate 16 12/05/2023 12:25 PM EDT Oxygen Saturation 100% 12/05/2023 12:25 PM EDT Inhaled Oxygen Concentration - - Weight 48.5 kg (107 lb) 12/05/2023 10:40 AM EDT Height 162.6 cm (5' 4") 12/05/2023 10:40 AM EDT Body Mass Index 18.37 12/05/2023 10:40 AM EDT documented in this encounter Functional Status [...] Yes 10/12/2017 documented as of this encounter H&P Notes * Omid Snell MD - 12/05/2023 10:56 AM EDT Endoscopy Pre-Procedure Assessment Name: Poppy Adhikari Date: 12/05/2023 Time: 10:56 AM Procedure(s): Endoscopic Ultrasound; with Indication(s) of evaluation of abnormalities on radiologic study Endoscopy Pre-Procedure Assessment: Prior to the procedure, the patient was identified. The patient's history, medications and allergies were reviewed as per the Anesthesia Assessment. The patient is competent. The risks and benefits of the proposed procedure and the planned sedation were discussed with the patient. All questions were answered and informed consent for the procedure was obtained. BP 132/76 | Pulse 70 | Temp 37 C (98.6 F) (Tympanic) | Resp 16 | Ht 1.626 m (5' 4") | Wt 48.5 kg (107 lb) | LMP 07/11/2013 | SpO2 100% | BMI 18.37 kg/m | BSA 1.48 m Review of patient's allergies indicates: Allergen Reactions Amoxicillin thrush Latex Hives, rash and swelling Lisinopril COUGH Nickel Rash Prior to Admission medications Medication Sig Last Dose Discont. HYDROcodone-Acetaminophen 7.5-325 MG Oral Tablet Take 1 Tablet by mouth every 8 hours as needed forPain, Severe. Past Week Acetaminophen 500 MG Oral Tablet (Tylenol) Take 2 Tablets by mouth every 6 hours as needed. 12/04/2023 Ondansetron HCl 4 MG Oral Tablet (Zofran) TAKE 1 TABLET BY MOUTH EVERY 8 HOURS NEEDED FOR NAUSEAPast Month Folic Acid 1 MG Oral Tablet Take 1 Tablet by mouth in the morning. 12/04/2023 FLUoxetine HCl 40 MG Oral Capsule (PROzac) Take 1 capsule by mouth in the morning 12/04/2023 LORazepam 0.5 MG Oral Tablet (Ativan) TAKE 1 TABLET BY MOUTH ONCE DAILY NEEDED FOR ANXIETY Past Week Omeprazole 40 MG Oral Capsule Delayed Release (PriLOSEC) Take 1 Capsule by mouth in the morning and1 Capsule before bedtime. 12/04/2023 Loratadine 10 MG Oral Tablet (Claritin) Take 1 tablet by mouth once daily 12/04/2023 Pregabalin 150 MG Oral Capsule (Lyrica) Take 1 Capsule by mouth in the morning and 1 Capsule beforebedtime. 12/04/2023 Montelukast Sodium 10 MG Oral Tablet (Singulair) Take 1 Tablet by mouth at bedtime. 12/04/2023 traZODone HCl 50 MG Oral Tablet (Desyrel) TAKE 1 TABLET BY MOUTH AT BEDTIME 12/04/2023 amLODIPine Besylate 5 MG Oral Tablet (Norvasc) Take 1 Tablet by mouth in the morning. 12/04/2023 hydrOXYzine HCl 50 MG Oral Tablet Take 1 Tablet by mouth every 6 hours as needed for Itching or Anxiety. Past Week DULoxetine HCl 60 MG Oral Capsule Delayed Release Particles (Cymbalta) Take 1 Capsule by mouth in the morning. Do not cut, crush or chew. 12/04/2023 Albuterol Sulfate HFA 108 (90 Base) MCG/ACT Inhalation Aerosol Solution INHALE 2 PUFFS BY MOUTH EVERY 4 HOURS NEEDED FOR WHEEZING 12/04/2023 Magnesium 100 MG Oral Tablet Take 4 Tablets by mouth in the morning. Cephalexin 500 MG Oral Capsule Take 1 Capsule by mouth in the morning and 1 Capsule before bedtime.Do all this for 10 days. Azithromycin 250 MG Oral Tablet (Zithromax Z-Nabil) Take two tablets by mouth on first day, then 1 tablet daily until gone Patient not taking: Reported on 09/26/2023 Not Taking Albuterol Sulfate (2.5 MG/3ML) 0.083% Inhalation Nebulization Solution (Proventil) Inhale 1 Vial via nebulizer every 6 hours as needed for Wheezing. J45.40 J44.9 Patient not taking: Reported on 09/26/2023 Not Taking Benzonatate 100 MG Oral Capsule Take 1 Capsule by mouth 3 times a day as needed for Cough (may makeyou sleepy). Patient not taking: Reported on 06/14/2023 Not Taking Compressor Nebulizer Inhale via nebulizer. Use as directed. Patient not taking: Reported on 12/05/2023 Not Taking Meloxicam 15 MG Oral Tablet Take 1 Tablet by mouth daily. Take 1-2 tabs daily for pain. Patient not taking: Reported on 11/06/2023 Not Taking Mometasone Furo-Formoterol Fum 200-5 MCG/ACT Inhalation Aerosol (Dulera) Inhale 2 Puffs by mouth inthe morning and 2 Puffs before bedtime. Patient not taking: Reported on 11/23/2023 Not Taking Spiriva Respimat 2.5 MCG/ACT Inhalation Aerosol Solution (Tiotropium [place] Monohydrate) Inhale 2 Puffs by mouth daily. Patient not taking: Reported on 09/26/2023 Not Taking Physical Exam: Mental Status Examination: alert and oriented. Airway Examination: normal oropharyngeal airway and neck mobility. Respiratory Examination: clear to auscultation. CV Examination: Regular rate and rythm, no murmurs. ASA Grade: II - A patient with mild systemic disease. After reviewing the risks and benefits, the patient was deemed in satisfactory condition to undergothe procedure. The anesthesia plan was to use sedation. Patient was explained in detail regarding risks, benefits, limitations and alternatives of the above endoscopic procedure. Risks of intravenous sedation used for procedure were also explained. Risks include, but not limited to perforation, bleeding, infection, respiratory distress, cardiac arrest and . Risk of acute pancreatitis and necrosis if ERCP is done. Patient is also aware about the possibility of missed lesion. Patient's questions were answered. The patient verbalized understandingthe information and agreed to undergo the procedure. Discussed with the patient that he/she is at an explicit higher risk for complications in comparison to other patients Omid Snell MD 12/05/2023 documented in this encounter Procedure Notes * Myesha Cavanaugh MD - 12/05/2023 11:20 AM EDTAssociated Order(s): UPPER ENDOSCOPIC U/S [facility] Patient Name: Poppy Adhikari Procedure Date: 12/05/2023 11:20 AM Date of : 1970 Admit Type: Outpatient Note Status: Finalized Date of : 1970 Admit Type: Outpatient Age: 53 Room: Advanced Endo Gender: Female Note Status: Finalized Procedure: Upper EUS Indications: Dilated pancreatic duct on CT scan, Pancreatic cyst Providers: Omid Snell MD (Doctor), Toan Lind RN Referring MD: Myesha Cavanaugh (Referring MD) Medicines: Propofol per Anesthesia Complications: No immediate complications. Procedure: Pre-Anesthesia Assessment: - Prior to the procedure, a History and Physical was performed, and patient medications, allergies and sensitivities were reviewed. The patient's tolerance of previous anesthesia was reviewed. - The risks and benefits of the procedure and the sedation options and risks were discussed with the patient. All questions were answered and informed consent was obtained. - Patient identification and proposed procedure were verified prior to the procedure by the physician and the nurse. The procedure was verified in the procedure room. - Pre-procedure physical examination revealed no contraindications to sedation. After obtaining informed consent, the endoscope was passed under direct vision. All instruments were visually inspected immediately before and after removal from the patient to ensure they are fully intact. Throughout the procedure, the patient's blood pressure, pulse, and oxygen saturations were monitored continuously. The upper EUS was accomplished without difficulty. The patient tolerated the procedure well. The Endosonoscope was introduced through the mouth, and advanced to the second part of duodenum. The [id number] Endoscope([id number]) was introduced through the mouth, and advanced to the second part of duodenum. Findings & Specimens: ENDOSCOPIC FINDING: : The examined esophagus was normal. The entire examined stomach was normal. The duodenal bulb and second portion of the duodenum were normal. ENDOSONOGRAPHIC FINDING: : There was no sign of significant endosonographic abnormality in the ampulla. No masses were identified. There was no sign of significant endosonographic abnormality in the common bile duct. The maximum diameter of the duct was 5 mm. No stones were identified. A small amount of hyperechoic material consistent with sludge was visualized endosonographically inthe gallbladder. There was no sign of significant endosonographic abnormality in the visualized portion of the liver. Homogeneous parenchyma was identified. Pancreatic parenchymal abnormalities were noted in the entire pancreas. These consisted of hyperechoic strands and hyperechoic foci. The pancreatic duct had a dilated endosonographic appearance in the in the pancreas nexk area. The pancreatic duct measured up to 4 mm in diameter. An anechoic lesion suggestive of a cyst was identified in the pancreatic tail. The lesion measured 6 mm in maximal cross-sectional diameter. There was a single compartment The outer wall of the lesion was thin. There was no associated mass. There was no internal debris within the fluid-filled cavity. Impression: - Normal esophagus. - Normal stomach. - Normal duodenal bulb and second portion of the duodenum. - There was no sign of significant pathology in the ampulla. - There was no sign of significant pathology in the common bile duct. - Hyperechoic material consistent with sludge was visualized endosonographically in the gallbladder. - There was no evidence of significant pathology in the visualized portion of the liver. - Pancreatic parenchymal abnormalities consisting of hyperechoic strands and hyperechoic foci were noted in the entire pancreas. PD measured 4 mm in diameter. - A 6 mm cyst was seen in the pancreatic tail with no worrisome features. - No specimens collected. Recommendation: - Discharge patient to home. - Perform an upper endoscopic ultrasound (UEUS) in 1 year. - Return to referring physician. Omid Snell MD 12/05/2023 12:10:20 PM This report has been signed electronically. documented in this encounter Nursing Notes * Jun Ruiz RN - 12/05/2023 12:41 PM EDT Patient is alert, pain free, passing flatus and tolerating po fluids prior to discharge. Patient has been visited by Dr. Snell. Patient has received and demonstrates understanding of discharge instructions. Patient is transported via w/c to private auto accompanied by endo staff. * Jun Ruiz RN - 12/05/2023 12:07 PM EDT Patient transferred to post endo s/p EGD. Patient awake Respirations are even and unlabored on room air. NSR in the 70;;s on the monitor. Abdomen soft and non distended. Vital signs stable. * Jordi Lind RN - 12/05/2023 12:01 PM EDT See anesthesia record for medication administered during procedure. Jordi Lind RN Pre cleaning of scope at the bedside started by electromyographic technician. * Jyoti Mcdonald RN - 12/05/2023 10:35 AM EDT The following pt discharge instructions reviewed with pt prior to prodedure: No driving today. No alcohol today. No signing of legal documents. Rest as much as possible today and can return to normal activities tomorrow. No operating any heavy equipment today. Diet as tolerated. Pt verbalized understanding. documented in this encounter Plan of Treatment Upcoming Encounters Date Type Department Care Team (Latest Contact Info) Description 12/11/2023 3:40 PM EDT Office Visit [facility] [address] [facility], [place] [phone] Myesha Cavanaugh MD [address] [facility], [place] [address] 01/18/2024 1:30 PM EDT Hospital Encounter ENDO [facility], Endoscopy Room [facility] [address] [place] [phone] Erika Rios, [address] [place] [address] 01/18/2024 1:30 PM EDT - 01/18/2024 2:30 PM EDT Surgery ENDO [facility], Endoscopy Room [facility] [address] [place] [phone] Erika Rios DO [address] [place] [phone] COLONOSCOPY FLEXIBLE PROXIMAL DIAGNOSTIC 01/23/2024 1:00 PM EDT Imaging Radiology [facility] [facility] [address] [facility] [place] [address] 02/06/2024 4:30 PM EDT Laboratory Laboratory, [facility] [address] [facility] [place] [phone] [facility] [address] [facility] [place] [address] 02/12/2024 3:30 PM EDT Office Visit Hematology/Oncolog y [facility] [place] [address] [place] [phone] Jenna Yanes, [place] [address] [place] [address] [place] [phone] 03/15/2024 4:00 PM EDT Office Visit Nephrology, [facility] [address] [place] [address] Chon Whitley MD [address] [facility] [place] [address] Scheduled Procedures Name Priority Associated Diagnoses Date/Ti [...] COVID-19 Vaccine ( - 2022- season) 2023 Influenza Vaccine (FLU shot) (#1) 2023 07/07/2017, 06/20/2013 DTaP,Tdap,and Td Vaccines (2 - Td or Tdap) 06/20/2023 06/20/2013 Depression, Most Recent Score >= 10 (will fire each visit until score < 10) 11/25/2023 11/24/2023 Mammogram 01/18/2024 01/17/2023, 05/0 05/2023, 06/27/2013 GFR 11/27/2024 11/28/2023, 10/13, 10/25/2023, Additional history [...] this encounter Medical Devices Implanted Type Area [employer] Sales Consultant Device Identifier Shelf Expiration Date Model / Serial / Lot Vitoss Bimodal Foam Pack 10cc - [id number] Implanted:Qty : 2 on 10/11/2017 by Rosendo Nathan, DO at [facility] N/A: Spine Lumbar SARAH : SPINE 03/08/2019 / / [id number] Vitoss Bimodal Foam Pack 10cc - [id number] Implanted:Qty : 1 on 10/11/2017 by Rosendo Nathan, DO at [facility] N/A: Spine Lumbar SARAH : SPINE 02/05/2019 / / [id number] Screw Audie Bina 3 Ti Set - [id number] Implanted:Qty : 4 on 10/11/2017 by Rosendo Nathan DO at [facility] N/A: Spine Lumbar SARAH : SPINE [id number] / / 6.5 X 50 Mm Serrate Screws Implanted:Qty : 2 on 10/11/2017 by Rosendo Nathan, DO at [facility] N/A: Spine Lumbar SARAH : SPINE [id number] / / 6.5 X 45 Mm Serrate Screw Implanted:Qty : 2 on 10/11/2017 by Rosendo Nathan DO at [facility] N/A: Spine Lumbar SARAH : SPINE [id number] / / 9 X 23x 6 - 9mm Pl Implanted:Qty : 1 on 10/11/2017 by Rosendo Nathan DO at [facility] N/A: Spine Lumbar SARAH : SPINE [id number] / / Shashank Bina 3 Ti 6x40mm - [id number] Implanted:Qty : 1 on 10/11/2017 by Rosendo Nathan DO at [facility] N/A: Spine Lumbar SARAH : SPINE [id number] / / Shashank Bina 3 Ti 6x45mm - [id number] Implanted:Qty : 1 on 10/11/2017 [facility] N/A: Spine Lumbar SARAH : SPINE [id number] / / documented as of this encounter Procedures Procedure Name Priority Date/Time Associated Diagnosis Comments UPPER ENDOSCOPIC U/S 12/05/2023 11:20 AM EDT documented in this encounter Results * UPPER ENDOSCOPIC U/S (12/05/2023 11:20 AM EDT) 12/05/2023 11:2 0 AM EDT Narrative Procedure Note Myesha Cavanaugh MD - 12/05/2023 11:20 AM EDT [facility] Patient Name: Poppy Adhikari Procedure Date: 12/05/2023 11:20 AM Date of : 1970 Admit Type: Outpatient Note Status:Finalized Date of : 1970 Admit Type: Outpatient Age: 53 Room: Advanced Endo Gender: Female Note Status: Finalized Procedure: Upper EUS Indications: Dilated pancreatic duct on CT scan, Pancreaticcyst Providers: Omid Snell MD (Doctor), Toan Lind RN Referring MD: Myesha Cavanaugh (Referring MD) Medicines: Propofol per Anesthesia Complications: No immediate complications. Procedure: Pre-Anesthesia Assessment: - Prior to the procedure, a History and Physicalwas performed, and patient medications, allergies and sensitivities werereviewed. The patient's tolerance of previous anesthesia was reviewed. - The risks and benefits of the procedure and thesedation options and risks were discussed with the patient. All questions wereanswered and informed consent was obtained. - Patient identification and proposed procedurewere verified prior to the procedure by the physician and the nurse. The procedure wasverified in the procedure room. - Pre-procedure physical examination revealed nocontraindications to sedation. After obtaining informed consent, the endoscope waspassed under direct vision. All instruments were visually inspected immediatelybefore and after removal from the patient to ensure they are fully intact. Throughout the procedure, the patient's bloodpressure, pulse, and oxygen saturations were monitored continuously. The upper EUS wasaccomplished without difficulty. The patient tolerated the procedure well. TheEndosonoscope was introduced through the mouth, and advanced to the second part of duodenum.The [id number] Endoscope([id number]) was introduced through the mouth, and advanced tothe second part of duodenum. Findings & Specimens: ENDOSCOPIC FINDING: : The examined esophagus was normal. The entire examined stomach was normal. The duodenal bulb and second portion of the duodenum were normal. ENDOSONOGRAPHIC FINDING: : There was no sign of significant endosonographic abnormality in theampulla. No masses were identified. There was no sign of significant endosonographic abnormality in thecommon bile duct. The maximum diameter of the duct was 5 mm. No stones were identified. A small amount of hyperechoic material consistent with sludge wasvisualized endosonographically in the gallbladder. There was no sign of significant endosonographic abnormality in thevisualized portion of the liver. Homogeneous parenchyma was identified. Pancreatic parenchymal abnormalities were noted in the entirepancreas. These consisted of hyperechoic strands and hyperechoic foci. The pancreatic duct had a dilated endosonographic appearance in thein the pancreas nexk area. The pancreatic duct measured up to 4 mm in diameter. An anechoic lesion suggestive of a cyst was identified in thepancreatic tail. The lesion measured 6 mm in maximal cross-sectional diameter. There was a single compartmentThe outer wall of the lesion was thin. There was no associated mass. There was no internal debriswithin the fluid-filled cavity. Impression: - Normal esophagus. - Normal stomach. - Normal duodenal bulb and second portion of theduodenum. - There was no sign of significant pathology in theampulla. - There was no sign of significant pathology in thecommon bile duct. - Hyperechoic material consistent with sludge wasvisualized endosonographically in the gallbladder. - There was no evidence of significant pathology inthe visualized portion of the liver. - Pancreatic parenchymal abnormalities consistingof hyperechoic strands and hyperechoic foci were noted in the entire pancreas.PD measured 4 mm in diameter. - A 6 mm cyst was seen in the pancreatic tail withno worrisome features. - No specimens collected. Recommendation: - Discharge patient to home. - Perform an upper endoscopic ultrasound (UEUS) in1 year. - Return to referring physician. Omid Snell MD 12/05/2023 12:10:20 PM This report has been signed electronically. Myesha Cavanaugh MD [facility] documented in this encounter Administered Medications Inactive Administered Medications - up to 3 most recent administrations Medication Order MAR Action Action Date Dose Rate Site isolyte-S pH 7.4 infusion Intravenous, at 100 mL/hr, Plasma-LYTE 148, isolyte-S, and isolyte-S pH 7.4 are considered equivalent - including for MAR barcode scanning., CONTINUOUS, Starting on Mon12/05/23 at 1100, Until Mon12/05/23 at 1646, Pre-Op Continue from Pre-Op 12/05/2023 11:40 AM EDT 100 mL/hr New Bag 12/05/2023 10:49 AM EDT 100 mL/hr documented in this encounter Active and Recently Administered Medications Times are shown in EDT. Continuous Medication Order 12/03/2023 12/04/2023 12/05/2023 isolyte-S pH 7.4 infusion Intravenous, at 100 mL/hr, Plasma-LYTE 148, isolyte-S, and isolyte-S pH 7.4 are considered equivalent - including for MAR barcode scanning., CONTINUOUS, Starting on Mon12/05/23 at 1100, Until Mon12/05/23 at 1646, Pre-Op 1049 (New Bag - Prov ider: Jyoti Mcdonald RN)1140 (Continue from Pre-Op - Provider: Isaura Looney CRNA)1202 (Anes Intra-Op Fluid - Provider: Isaura Looney CRNA) documented in this encounter Advance Directives Latest Code Status on File Code Status Date Activated Date Inactivated Comments Full Code 10/11/2017 9:23 AM 10/13/2017 10:36 PM This order reflects the patients wishes and were consensually agreed upon. Care Teams Sustainable Systems Analyst Relationship Specialty Start Date End Date Myesha Cavanaugh MD [address] [place] [address] PCP - General Family Medicine 02/18/22 documented as of this encounter
--- OUTSIDE RECORDS SUMMARY | 2024-04-17 01:47 | External Medical Summary | Summary of Care ---
Author Name Unknown Organization [facility] Address [address] [place] [address] Phone [phone] Care Team Providers Care Cookie Breaker Name Role Phone Myesha Cavanaugh MD Primary Care Provid er Reason for Visit * Reason Onset Date Comments Health Maintenance 12/05/2023 Encounter Details Date Type Department Care Team (Late st Contact Info) Description 12/05/2023 Telephone [facility] [address] [place] [address] Myesha Cavanaugh MD [address] [place] [address] Health Maintenance Allergies Active Allergy Reactions Criticality Noted Date Comments Amoxicillin 01/05/2017 thrush Latex 06/20/2013 Hives, rash and swelling Lisinopril 06/02/2023 COUGH Nickel Rash 12/03/2020 documented as of this encounter (statuses as of 12/06/2023) Medications Medication Sig Dispensed Refills Start Date End Date Status Spiriva Respimat 2.5 MCG/ACT Inhalation Aerosol Solution (Tiotropium [place] Monohydrate) Inhale 2 Puffs by mouth daily. [...] on 11/23/2023 hydrOXYzine HCl 50 MG Oral TabletIndications:A nxiety,Pruritus [...] Pain, Severe. 90 Tablet 0 11/30/2023 Active documented as of this encounter (statuses [...] encounter Miscellaneous Notes * Telephone Encounter - Charissa AnnMAURY - 12/05/2023 2:03 PM EDT Care Gaps Comprehensive Care Outreach Last Office/Telemedicine Visit: 09/01/2023 (in office), 10/16/2023 (telemedicine) Next Office Visit: 12/11/2023 Hemoglobin AIC Results: Lab Results Component Value Date/Time HEMOGLOBIN A1C - GOLDIEER 4.1 09/01/2023 01:04 PM BP Readings from Last 1 Encounters: 12/05/23 129/73 Reviewed Health Maintenance below: Health Maintenance Topic Date Due HIV Screening Never done Alpha-1 Antitrypsin Never done Hepatitis B (1 of 3 - 19+ 3-dose series) Never done Pneumococcal Vaccine: Pediatrics (0 to 5 Years) and At-Risk Patients (6 to 64 Years) (2 of 2 - PCV)06/20/2014 Zoster Vaccines (1 of 2) Never done Cervical Cancer Screening 07/07/2020 Influenza Vaccine (FLU shot) (1) 05/12/2023 COVID-19 Vaccine (1 - season) Never done DTaP,Tdap,and Td Vaccines (2 - Td or Tdap) 06/20/2023 Depression, Most Recent Score >= 10 (will fire each visit until score < 10) 11/25/2023 Mammogram 01/18/2024 Mamm may already scheduled order placed Pap my g Care Gap Outreach Action Taken: HelloFax message sent documented in this encounter Plan of Treatment Upcoming Encounters Date Type Department Care Team (Latest Contact Info) Description 12/11/2023 3:40 PM EDT Office Visit [facility] [address] [place] [phone] Myesha Cavanaugh MD [address] [place] [address] 01/18/2024 1:30 PM EDT Hospital Encounter ENDO [facility], Endoscopy Room [facility] [address] [place] [phone] Erika Rios DO [address] [place] [address] 01/18/2024 1:30 PM EDT - 01/18/2024 2:30 PM EDT Surgery ENDO [facility], Endoscopy Room [facility] [address] [place] [phone] Erika Rios DO [address] [place] [address] COLONOSCOPY FLEXIBLE PROXIMAL DIAGNOSTIC 01/23/2024 1:00 PM EDT Imaging Radiology [facility] 1st Floor, [place] [address] [place] [address] 02/06/2024 4:30 PM EDT Laboratory Laboratory, [facility] [address] [facility] [place] [phone] [facility] [address] [place] [address] 02/12/2024 3:30 PM EDT Office Visit Hematology/Oncolog y [facility] [address] [facility] [place] [phone] Jenna Yanes CRNP [address] [facility] [place] [address] 03/15/2024 4:00 PM EDT Office Visit Nephrology, [facility] [address] [facility] [place] [address] Chon Whitley MD [address] [place] [address] Scheduled Orders Name Type Priority Associated Diagnoses Orde r Schedule MAMMOGRAM SCREENING MICHELLE BILATERAL Medical Imaging Routine Encounter for screening mammogram for malignant neoplasm of breast Expected: 12/05/2023, Expires: 01/04/2025 Scheduled Procedures Name Priority Associated Diagnoses Date/Ti [...] 07/16/2013 COVID-19 Vaccine ( - season) 2023 Influenza Vaccine (FLU shot) (#1) [...] this encounter Medical Devices Implanted Type Area Concrete Mason Device Identifier Shelf Expiration Date Model / Serial / Lot Vitoss Bimodal Foam Pack 10cc - [id number] Implanted:Qty : 2 on 10/11/2017 by Rosendo Nathan, at [facility] N/A: Spine Lumbar SARAH : SPINE 03/08/2019 / / [id number] Vitoss Bimodal Foam Pack 10cc - [id number] Implanted:Qty : 1 on 10/11/2017 by Rosendo Nathan DO at [facility] N/A: Spine Lumbar SARAH : SPINE 02/05/2019 / / [id number] Screw Audie Bina 3 Ti Set - [id number] Implanted:Qty : 4 on 10/11/2017 by Rosendo Nathan DO at [facility] N/A: Spine Lumbar SARAH : SPINE [id number] / / 6.5 X 50 Mm Serrate Screws Implanted:Qty : 2 on 10/11/2017 by Rosendo Nathan DO at [facility] N/A: Spine Lumbar SARAH : SPINE [id number] / / 6.5 X 45 Mm Serrate Screw Implanted:Qty : 2 on 10/11/2017 by Rosendo Nathan DO at [facility] N/A: Spine Lumbar SARAH : SPINE [id number] / / 9 X 23x 6 - 9mm Pl Implanted:Qty : 1 on 10/11/2017 by Rosendo Nathan DO at [facility] N/A: Spine Lumbar SARAH : SPINE [id number] / / Shashank Bina 3 Ti 6x40mm - [id number] Implanted:Qty : 1 on 10/11/2017 by Rosendo Nathan DO at [facility] N/A: Spine Lumbar SARAH : SPINE [id number] / / Shashank Bina 3 Ti 6x45mm - [id number] Implanted:Qty : 1 on 10/11/2017 by Rosendo Nathan DO at [facility] N/A: Spine Lumbar SARAH : SPINE [id number] / / documented as of this encounter Visit Diagnoses Diagnosis Encounter for screening mammogram for malignant neoplasm of breast- Primary Other screening mammogram Nausea & vomiting Nausea with vomiting Unintentional weight loss Loss of weight documented in this encounter Advance Directives Latest Code Status on File Code Status Date Activated Date Inactivated Comments Full Code 10/11/2017 9:23 AM 10/13/2017 10:36 PM This order reflects the patients wishes and were consensually agreed upon. Care Teams Cookie Breaker Relationship Specialty Start Date End Date Myesha Cavanaugh MD [address] [place] [address] PCP - General Family Medicine 02/18/22 documented as of this encounter
--- OUTSIDE RECORDS SUMMARY | 2024-04-17 01:47 | External Medical Summary | Summary of Care ---
Author Name Unknown Organization [facility] Address [address] [place] [address] Phone [phone] Care Team Providers Care Stenographic Court Reporter Name Role Phone Олег Frias MD Primary Care Provid er Reason for Visit * Reason Comments eRx-Medication Refill Encounter Details Date Type Department Care Team (Late st Contact Info) Description 12/16/2023 Refill [facility] [address] [place] [address] Олег Frias MD [address] [place] [address] Fibromyalgia; Major depressive disorder with single episode, in full remission ([facility]) Allergies Active Allergy Reactions Criticality Noted Date Comments Amoxicillin 01/05/2017 thrush Latex 06/20/2013 Hives, rash and swelling Lisinopril 06/02/2023 COUGH Nickel Rash 12/03/2020 documented as of this encounter (statuses as of 12/18/2023) Medications Medication Sig Dispensed Refills Start Date End Date Status Spiriva Respimat 2.5 MCG/ACT Inhalation Aerosol Solution (Tiotropium [place] Monohydrate) Inhale 2 Puffs by mouth daily. [...] 09/26/2023 traZODone HCl 50 MG Oral Tablet (Desyrel)Indicati ons:Major depressive disorder with single episode, in full remission (HCC) TAKE 1 TABLET BY MOUTH AT BEDTIME 90 Tablet 1 08/05/2023 Active Montelukast Sodium 10 MG Oral Tablet (Singulair)Indica [...] 10/16/2023 Active LORazepam 0.5 MG Oral Tablet (Ativan)Indicatio [...] CHEW CAPSULE 90 Capsule 3 12/18/2023 Active DULoxetine HCl 60 MG Oral Capsule Delayed Release Particles (Cymbalta)Indicat ions:Fibromyalgia ,Major depressive disorder with single episode, in full remission (HCC) Take 1 Capsule by mouth in the morning. Do not cut, crush or chew. 90 Capsule 3 12/23/2022 12/18/19 24 Discontinued documented as of this encounter (statuses as of 12/18/2023) Active Problems Problem Noted Date Diagnosed Date [...] as of this encounter (statuses as of 12/18/2023) Resolved Problems Problem Noted Date Diagnosed Date Resolved Date Food insecurity 04/19/2021 08/26/2021 Overview: Per [facility] Protocol Asthma exacerbation 03/30/2015 07/07/20 17 Moderate persistent asthma 11/09/2014 0 03/30/2015 Overview: PFT Pneumonitis 07/24/2014 01/06/2022 Asthma exacerbation 07/24/2014 03/30/20 15 documented as of this encounter (statuses as of 12/18/2023) Immunizations Name Administration Dates Next Due PPD [...] encounter Miscellaneous Notes * Telephone Encounter - Anthony Koo [facility] - 12/18/2023 10:39 AM EDTSigned Prescriptions: Disp Refills DULoxetine HCl 60 MG Oral Capsule Delayed *90 Cap*3 Sig: TAKE 1 CAPSULE BY MOUTH ONCE DAILY IN THE MORNING DO NOT CUT, CRUSH, OR CHEW CAPSULEAuthorizing Provider: ОЛЕГ FRIAS User: ANTHONY KOO documented in this encounter Plan of Treatment Upcoming Encounters Date Type Department Care Team (Latest Contact Info) Description 01/18/2024 1:30 PM EDT Hospital Encounter ENDO [facility], Endoscopy Room [facility] [address] [place] [phone] Erika Rios DO [address] [place] [address] 01/18/2024 1:30 PM EDT - 01/18/2024 2:30 PM EDT Surgery ENDO [facility], Endoscopy Room [facility] [address] [place] [phone] Erika Rios DO [address] [place] [address] COLONOSCOPY FLEXIBLE PROXIMAL DIAGNOSTIC 01/23/2024 1:00 PM EDT Imaging Radiology [facility] [address]st [facility] [address] [place] [address] 02/06/2024 4:30 PM EDT Laboratory Laboratory, [facility] [address] [place] [address] Mare Wilkerson [facility] [address] [place] [address] 02/12/2024 3:30 PM EDT Office Visit Hematology/Oncolog y [facility] [place] [address] [facility] [place] [phone] Jenna Yanes CRNP [address] [place] [address] 03/15/2024 4:00 PM EDT Office Visit Nephrology, [facility] [address] [facility] [place] [address] Chon Whitley MD [address] [facility] [place] [address] Scheduled Procedures Name Priority Associated Diagnoses Date/Ti [...] this encounter Medical Devices Implanted Type Area Chief Radiologic Technologist Device Identifier Shelf Expiration Date Model / Serial / Lot Vitoss Bimodal Foam Pack 10cc - [id number] Implanted:Qty : 2 on 10/11/2017 by Rosendo Nathan, DO at [facility] N/A: Spine Lumbar SARAH : SPINE 03/08/201921013347-9904 / / [id number] Vitoss Bimodal Foam Pack 10cc - [id number] Implanted:Qty : 1 on 10/11/2017 by Rosendo Nathan, DO at [facility] N/A: Spine Lumbar SARAH : SPINE 02/05/2019 / / [id number] Screw Audie Bina 3 Ti Set - [id number] Implanted:Qty : 4 on 10/11/2017 by Rosendo Nathan, DO at [facility] N/A: Spine Lumbar SARAH : SPINE [id number] / / 6.5 X 50 Mm Serrate Screws Implanted:Qty : 2 on 10/11/2017 by Rosendo Nathan, DO at [facility] N/A: Spine Lumbar SRAAH : SPINE [id number] / / 6.5 X 45 Mm Serrate Screw Implanted:Qty : 2 on 10/11/2017 by Rosendo Nathan DO at [facility] N/A: Spine Lumbar SARAH : SPINE [id number] / / 9 X 23x 6 - 9mm Pl Implanted:Qty : 1 on 10/11/2017 by Rosendo Nathan DO at [facility] N/A: Spine Lumbar SARAH : SPINE [id number] / / Shashank Bina 3 Ti 6x40mm - [id number] Implanted:Qty : 1 on 10/11/2017 by Rosendo Nathan DO at [facility] N/A: Spine Lumbar SARAH : SPINE [id number] / / Shashank Bina 3 Ti 6x45mm - [id number] Implanted:Qty : 1 on 10/11/2017 by Rosendo Nathan DO at [facility] N/A: Spine Lumbar SARAH : SPINE [id number] / / documented as of this encounter Visit Diagnoses Diagnosis Fibromyalgia Mylagia and myositis, unspecified Major depressive disorder with single episode, in full remission (HCC) Nausea & vomiting Nausea with vomiting Unintentional weight loss Loss of weight documented in this encounter Advance Directives Latest Code Status on File Code Status Date Activated Date Inactivated Comments Full Code 10/11/2017 9:23 AM 10/13/2017 10:36 PM This order reflects the patients wishes and were consensually agreed upon. Care Teams Stenographic Court Reporter Relationship Specialty Start Date End Date Олег Frias MD [address] [place] [address] PCP - General Family Medicine 02/18/22 documented as of this encounter
--- OUTSIDE RECORDS SUMMARY | 2024-04-17 01:47 | External Medical Summary | Summary of Care ---
Author Name Unknown Organization [facility] Address [address] [place] [address] Phone [phone] Care Team Providers Care Olive Knocker Name Role Phone Олег Frias MD Primary Care Provid er Reason for Visit * Reason Comments eRx-Medication Refill Encounter Details Date Type Department Care Team (Late st Contact Info) Description 12/07/2023 Refill [facility] [address] [place] [phone] Lolis Bowers MD [address] [place] [address] Allergies Active Allergy Reactions Criticality Noted Date Comments Amoxicillin 01/05/2017 thrush Latex 06/20/2013 Hives, rash and swelling Lisinopril 06/02/2023 COUGH Nickel Rash 12/03/2020 documented as of this encounter (statuses as of 12/08/2023) Medications Medication Sig Dispensed Refills Start Date End Date Status Spiriva Respimat 2.5 MCG/ACT Inhalation Aerosol Solution (Tiotropium [place] Monohydrate) Inhale 2 Puffs by mouth daily. [...] 12/23/2022 Active hydrOXYzine HCl 50 MG Oral TabletIndications [...] TWICE DAILY 13 g 11 12/08/2023 Active Mometasone Furo-Formoterol Fum 200-5 MCG/ACT Inhalation Aerosol (Dulera) Inhale 2 Puffs by mouth in the morning and 2 Puffs before bedtime. 13 g 11 01/06/2023 12/08/19 24 Discontinued documented as of this encounter (statuses as of 12/08/2023) Active Problems Problem Noted Date Diagnosed Date [...] as of this encounter (statuses as of 12/08/2023) Resolved Problems Problem Noted Date Diagnosed Date Resolved Date Food insecurity 04/19/2021 08/26/2021 Overview: Per [facility] Protocol Asthma exacerbation 03/30/2015 07/07/20 17 Moderate persistent asthma 11/09/2014 0 03/30/2015 Overview: PFT Pneumonitis 07/24/2014 01/06/2022 Asthma exacerbation 07/24/2014 03/30/20 15 documented as of this encounter (statuses as of 12/08/2023) Immunizations Name Administration Dates Next Due PPD [...] encounter Miscellaneous Notes * Telephone Encounter - Estuardo Wilson, [facility] - 12/08/2023 4:33 AM EDTSigned Prescriptions: Disp Refills Dulera 200-5 MCG/ACT Inhalation Aerosol (M*13 g 11 Sig: INHALE 2PUFFS TWICE DAILYAuthorizing Provider: ОЛЕГ FRIAS User: ESTUARDO WILSON------ documented in this encounter Plan of Treatment Upcoming Encounters Date Type Department Care Team (Latest Contact Info) Description 12/11/2023 3:40 PM EDT Office Visit [facility] [address] [place] [facility] [address] Олег Frias MD [address] [place] [address] 01/18/2024 1:30 PM EDT Hospital Encounter ENDO [facility], Endoscopy Room [facility] [address] [place] [phone] Erika Rios DO [address] [place] [address] 01/18/2024 1:30 PM EDT - 01/18/2024 2:30 PM EDT Surgery ENDO [facility], Endoscopy Room [facility] [address] [place] [phone] Erika Rios DO [address] [place] [address] COLONOSCOPY FLEXIBLE PROXIMAL DIAGNOSTIC 01/23/2024 1:00 PM EDT Imaging Radiology [facility] [facility] [address] [place] [address] 02/06/2024 4:30 PM EDT Laboratory Laboratory, [facility] [address] [facility] [place] [phone] Mare Wilkersons [address] [facility] [place], [place] [address] 02/12/2024 3:30 PM EDT Office Visit Hematology/Oncolog y [facility] [address] [facility] [place] [phone] Jenna Yanes CRNP [address] [place] [address] 03/15/2024 4:00 PM EDT Office Visit Nephrology, [facility] [address] [facility] [place] [address] Chon Whitley MD [address] [facility] [place] [address] Scheduled Procedures Name Priority Associated Diagnoses Date/Ti [...] 07/16/2013 COVID-19 Vaccine (1 - season) 2023 Influenza Vaccine (FLU shot) [...] this encounter Medical Devices Implanted Type Area Plant Changer Device Identifier Shelf Expiration Date Model / Serial / Lot Vitoss Bimodal Foam Pack 10cc - [id number] Implanted:Qty : 2 on 10/11/2017 by Rosendo Nathan DO at [facility] N/A: Spine Lumbar SARAH : SPINE 03/08/[id number] / / [id number] Vitoss Bimodal Foam Pack 10cc - [id number] Implanted:Qty : 1 on 10/11/2017 by Rosendo Nathan DO at [facility] N/A: Spine Lumbar SARAH : SPINE 02/05/[id number] / / [id number] Screw Audie Bina 3 Ti Set - [id number] Implanted:Qty : 4 on 10/11/2017 by Rosendo Nathan DO at [facility] N/A: Spine Lumbar SARAH : SPINE [id number] / / 6.5 X 50 Mm Serrate Screws Implanted:Qty : 2 on 10/11/2017 by Rosendo Nathan DO at [facility] N/A: Spine Lumbar SARAH : SPINE [id number] / / 6.5 X 45 Mm Serrate Screw Implanted:Qty : 2 on 10/11/2017 by Rosendo Nathan, at [facility] N/A: Spine Lumbar SARAH : SPINE [id number] / / 9 X 23x 6 - 9mm Pl Implanted:Qty : 1 on 10/11/2017 by Rosendo Nathan, DO at [facility] N/A: Spine Lumbar SARAH : SPINE [id number] / / Shashank Bina 3 Ti 6x40mm - [id number] Implanted:Qty : 1 on 10/11/2017 by Rosendo Nathan DO at [facility] N/A: Spine Lumbar SARAH : SPINE [id number] / / Shashank Bina 3 Ti 6x45mm - [id number] Implanted:Qty : 1 on 10/11/2017 by Rosendo Nathan, at [facility] N/A: Spine Lumbar SARAH : SPINE [id number] / / documented as of this encounter Advance Directives Latest Code Status on File Code Status Date Activated Date Inactivated Comments Full Code 10/11/2017 9:23 AM 10/13/2017 10:36 PM This order reflects the patients wishes and were consensually agreed upon. Care Teams Olive Knocker Relationship Specialty Start Date End Date Олег Frias MD [address] [place] [facility] [place] [address] PCP - General Family Medicine 02/18/22 documented as of this encounter
--- OUTSIDE RECORDS SUMMARY | 2024-04-17 01:48 | External Medical Summary | Summary of Care ---
Author Name Unknown Organization [facility] Address [address] [facility] [place] [address] Phone [phone] Care Team Providers Care Retail Services Professional Name Role Phone Myesha Cavanaugh MD Primary Care Provid er Reason for Referral * Medication Prior Authorization - Denied Specialty Diagnoses / Procedures Referred By Contac t Referred To Contact Diagnoses History of lumbar fusion Spinal stenosis of lumbar region with neurogenic claudication Lumbar radiculitis Sacroiliac joint pain Myesha Cavanaugh MD [address] [place] [address] Referral ID Status Reason Start Date Expiration Date Visits Re quested Visits Authorized [id number] Denied 999 999 Reason for Visit * Reason Onset Date Comments Medication Pre-auth 11/30/2023 HYDROCODONE- ACETAMIN 7.5-325 Encounter Details Date Type Department Care Team (Late st Contact Info) Description 11/30/2023 Telephone [facility] [address] [place] [address] Myesha Cavanaugh MD [address] [place] [address] Medication Pre-auth (HYDROCODONE-ACETAMIN ... Allergies Active Allergy Reactions Criticality Noted Date Comments Amoxicillin 01/05/2017 thrush Latex 06/20/2013 Hives, rash and swelling Lisinopril 06/02/2023 COUGH Nickel Rash 12/03/2020 documented as of this encounter (statuses as of 12/04/2023) Medications Medication Sig Dispensed Refills Start Date End Date Status Spiriva Respimat 2.5 MCG/ACT Inhalation Aerosol Solution (Tiotropium Greig Monohydrate) Inhale 2 Puffs by mouth daily. [...] as directed. 1 Each 1 05/26/2023 Active Benzonatate 100 MG Oral CapsuleIndications :Upper respiratory [...] for Pain, Severe. 90 Tablet 0 11/07/2023 4 Discontinue d(Refill) documented as of this encounter (statuses as of 12/04/2023) Active Problems Problem Noted Date Diagnosed Date [...] as of this encounter (statuses as of 12/04/2023) Resolved Problems Problem Noted Date Diagnosed Date Resolved Date Food insecurity 04/19/2021 08/26/2021 Overview: Per [facility] Protocol Asthma exacerbation 03/30/2015 07/07/20 17 Moderate persistent asthma 11/09/2014 0 03/30/2015 Overview: PFT Pneumonitis 07/24/2014 01/06/2022 Asthma exacerbation 07/24/2014 03/30/20 15 documented as of this encounter (statuses as of 12/04/2023) Immunizations Name Administration Dates Next Due PPD [...] Telephone Encounter - Sydnie Craft LPN - 12/04/2023 9:13 AM EDT Last note faxed to [phone] * Telephone Encounter - Jeison Singletary CPhT - 11/30/2023 5:35 PM EDT Patients insurance would like to inform the office that HYDROCODONE-ACETAMIN 7.5-325 is requiring additional information: Needs office notes. Prior authorization entered in [facility] at [facility]# [id number] Please fax to [phone] before 12/01/2023 at 10AM. Thank you, Spencer Singletary ([facility]) [employer] [facility] (formerly [facility]) 11/30/2023, 5:35 PM * Telephone Encounter - yMesha Cavanaugh MD - 11/30/2023 3:23 PM EDT Refill sent documented in this encounter Plan of Treatment Upcoming Encounters Date Type Department Care Team (Latest Contact Info) Description 12/05/2023 11:30 AM EDT Hospital Encounter ENDO OSSC, Endoscopy Room [facility] [address] [place] [address] Omid Snell MD [address] [place] [address] 12/05/2023 11:30 AM EDT - 12/05/2023 12:15 PM EDT Surgery ENDO [facility], Endoscopy Room [facility] [address] [place] [phone] Omid Snell MD [address] [place] [address] ESOPHAGOGASTRODUODENOSCOPY (EGD), FLEXIBLE, TRANSORAL, ENDOSCOPIC ULTRASOUND 12/11/2023 3:40 PM EDT Office Visit [facility] [address] [place] [facility] [address] Myesha Cavanaugh MD [address] [place] [facility] [address] 01/18/2024 1:30 PM EDT Hospital Encounter ENDO OSSC, Endoscopy Room [facility] [address] [place] [address] Erika Rios DO [address] [place] [address] 01/18/2024 1:30 PM EDT - 01/18/2024 2:30 PM EDT Surgery ENDO OSS[facility], Endoscopy Room [facility] [address] [place] [address] Erika Rios DO [address] [place], [place] [address] COLONOSCOPY FLEXIBLE PROXIMAL DIAGNOSTIC 01/23/2024 1:00 PM EDT Imaging [facility] [address] [facility] [place] [address] 02/06/2024 4:30 PM EDT Laboratory Laboratory, [facility] [address] [place] [phone] [facility] [address] [facility] [place] [address] 02/12/2024 3:30 PM EDT Office Visit Hematology/Onco logy [facility] [address] [place] [phone] Jenna Yanes CRNP [address] [place] [address] 03/15/2024 4:00 PM EDT Office Visit Nephrology, [facility] [address] [place] [address] Chon Whitley MD [address] [place] [address] Scheduled Procedures Name Priority Associated Diagnoses Date/Ti me ESOPHAGOGASTRODUODENOSCOPY ( EGD), FLEXIBLE, TRANSORAL, ENDOSCOPIC ULTRASOUND Pancreatic cyst 12/05/2023 11:30 AM EDT COLONOSCOPY FLEXIBLE PROXIMA L DIAGNOSTIC Nausea & [...] COVID-19 Vaccine (1 - 2022- season) 2023 Influenza Vaccine (FLU shot) (#1) 2023 07/07/2017, 06/20/2013 DTaP,Tdap,and Td Vaccines (2 - Td or Tdap) 06/20/2023 06/20/2013 Depression, Most Recent Score >= 10 (will fire each visit until score < 10) 11/25/2023 11/24/2023 Mammogram 01/18/2024 01/17/2023, 05/2023, 06/27/2013 GFR 10/31/2024 10/31/2023, 10/12, 09/23/2023, Additional history exists O2 ASSESSMENT COMPLETED IN PAST YEAR FOR COPD 11/06/2024 11/06/2023 Albumin/Creatinine Ratio 09/01/2026 09/01/2023 Lipid Panel 05/11/2027 05/11/2022 Colonoscopy 09/27/2033 09/27/2023 Colorectal Cancer Screening 09/27/2033 GARDASIL-HPV IMMUNIZATION SERIES Aged Out No longer eligible based on patient's age to complete this topic MENINGOCOCCAL (MENACTRA/MENVEO) Aged Out No longer eligible based on patient's age to complete this topic documented as of this encounter Medical Devices Implanted Type Area Prosthodontist/Owner Device Identifier Shelf Expiration Date Model / Serial / Lot Vitoss Bimodal Foam Pack 10cc - [id number] Implanted:Qty : 2 on 10/11/2017 by Rosendo Nathan, DO at [facility] N/A: Spine Lumbar SARAH : SPINE 03/08/2019 / / [id number] Vitoss Bimodal Foam Pack 10cc - [id number] Implanted:Qty : 1 on 10/11/2017 by Rosendo Nathan, DO at [facility] N/A: Spine Lumbar SARAH : SPINE 02/05/2019 / / [id number] Screw Audie Bina 3 Ti Set - [id number] Implanted:Qty : 4 on 10/11/2017 by Rosendo Nathan, at [facility] N/A: Spine Lumbar SARAH : SPINE [id number] / / 6.5 X 50 Mm Serrate Screws Implanted:Qty : 2 on 10/11/2017 by Rosendo Nathan, at [facility] N/A: Spine Lumbar SARAH : SPINE [id number] / / 6.5 X 45 Mm Serrate Screw Implanted:Qty : 2 on 10/11/2017 by Rosendo Nathan DO at [facility] N/A: Spine Lumbar SARAH : SPINE [id number] / / 9 X 23x 6 - 9mm Pl Implanted:Qty : 1 on 10/11/2017 by Rosendo Nathan DO at [facility] N/A: Spine Lumbar SARAH : SPINE [id number] / / Shashank Bina 3 Ti 6x40mm - [id number] Implanted:Qty : 1 on 10/11/2017 by Rosendo Nathan DO at [facility] N/A: Spine Lumbar SARAH : SPINE [id number] / / Shashank Bina 3 Ti 6x45mm - [id number] Implanted:Qty : 1 on 10/11/2017 by Rosendo Nathan DO at [facility] N/A: Spine Lumbar SARAH : SPINE [id number] / / documented as of this encounter Visit Diagnoses Diagnosis History of lumbar fusion Spinal stenosis of lumbar region with neurogenic claudication Spinal stenosis, lumbar region, with neurogenic claudication Lumbar radiculitis Thoracic or lumbosacral neuritis or radiculitis, unspecified Sacroiliac joint pain Disorders of sacrum Pancreatic cyst Cyst and pseudocyst of pancreas Nausea & vomiting Nausea with vomiting Unintentional weight loss Loss of weight documented in this encounter Advance Directives Latest Code Status on File Code Status Date Activated Date Inactivated Comments Full Code 10/11/2017 9:23 AM 10/13/2017 10:36 PM This order reflects the patients wishes and were consensually agreed upon. Care Teams Retail Services Professional Relationship Specialty Start Date End Date Myesha Cavanaugh MD [address] [place] [address] PCP - General Family Medicine 02/18/22 documented as of this encounter
--- OUTSIDE RECORDS SUMMARY | 2024-04-17 01:48 | External Medical Summary | Summary of Care ---
Author Name Unknown Organization [facility] Address [address] [place] [address] Phone [phone] Care Team Providers Care Systems Support Specialist Name Role Phone Myesha Cavanaugh MD Primary Care Provid er Reason for Visit * Reason Onset Date Comments Health Maintenance 12/05/2023 Encounter Details Date Type Department Care Team (Late st Contact Info) Description 12/05/[address] [facility] [address] [place] [address] Myesha Cavanaugh MD [address] [place] [address] Health Maintenance Allergies Active Allergy Reactions Criticality Noted Date Comments Amoxicillin 01/05/2017 thrush Latex 06/20/2013 Hives, rash and swelling Lisinopril 06/02/2023 COUGH Nickel Rash 12/03/2020 documented as of this encounter (statuses as of 12/05/2023) Medications Medication Sig Dispensed Refills Start Date End Date Status Spiriva Respimat 2.5 MCG/ACT Inhalation Aerosol Solution (Tiotropium [place] Monohydrate) Inhale 2 Puffs by mouth daily. [...] as of this encounter (statuses as of 12/05/2023) Active Problems Problem Noted Date Diagnosed Date [...] as of this encounter (statuses as of 12/05/2023) Resolved Problems Problem Noted Date Diagnosed Date Resolved Date Food insecurity 04/19/2021 08/26/2021 Overview: Per [facility] Protocol Asthma exacerbation 03/30/2015 07/07/20 17 Moderate persistent asthma 11/09/2014 0 03/30/2015 Overview: PFT Pneumonitis 07/24/2014 01/06/2022 Asthma exacerbation 07/24/2014 03/30/20 15 documented as of this encounter (statuses as of 12/05/2023) Immunizations Name Administration Dates Next Due PPD [...] my g Care Gap Outreach Action Taken: [employer] message sent documented in this encounter Plan of Treatment Upcoming Encounters Date Type Department Care Team (Latest Contact Info) Description 12/11/2023 3:40 PM EDT Office Visit [facility] [address] [place] [phone] Myesha Cavanaugh MD [address] [place] [address] 01/18/2024 1:30 PM EDT Hospital Encounter ENDO [facility], Endoscopy Room [facility] [address] [place] [address] Erika Rios DO [address] [place] [address] 01/18/2024 1:30 PM EDT - 01/18/2024 2:30 PM EDT Surgery ENDO [facility], Endoscopy Room [facility] [address] [place] [address] Erika Rios DO [address] [place] [address] COLONOSCOPY FLEXIBLE PROXIMAL DIAGNOSTIC 01/23/2024 1:00 PM EDT Imaging Radiology [facility] 1st Floor, [place] [address] [place] [address] 02/06/2024 4:30 PM EDT Laboratory Laboratory, [facility] [address] [place] [phone] [facility] [address] [place] [address] 02/12/2024 3:30 PM EDT Office Visit Hematology/Oncolog y [facility] [address] [facility] [place] [phone] Jenna Yanes CRNP [address] [facility] [place] [address] 03/15/2024 4:00 PM EDT Office Visit Nephrology, [facility] [address] [facility] [place] [address] Chon Whitley MD [address] [facility] [place] [address] Scheduled Orders Name Type Priority Associated Diagnoses Orde r Schedule MAMMOGRAM SCREENING MICHELLE BILATERAL Medical Imaging Routine Encounter for screening mammogram for malignant neoplasm of breast Expected: 12/05/2023, Expires: 01/04/2025 Scheduled Procedures Name Priority Associated Diagnoses Date/Ti me ESOPHAGOGASTRODUODENOSCOPY ( EGD), FLEXIBLE, TRANSORAL, ENDOSCOPIC ULTRASOUND Pancreatic cyst 12/05/2023 11:40 AM EDT COLONOSCOPY FLEXIBLE PROXIMA L DIAGNOSTIC [...] this encounter Medical Devices Implanted Type Area Jig Builder Device Identifier Shelf Expiration Date Model / Serial / Lot Vitoss Bimodal Foam Pack 10cc - [id number] Implanted:Qty : 2 on 10/11/2017 by Rosendo Nathan DO at [facility] N/A: Spine Lumbar SARAH : SPINE 03/08/2019 / / [id number] Vitoss Bimodal Foam Pack 10cc - [id number] Implanted:Qty : 1 on 10/11/2017 by Rosendo Nathan DO at [facility] N/A: Spine Lumbar SARAH : SPINE 02/05/2019 / / [id number] Screw Audie Bina 3 Ti Set - [id number] Implanted:Qty : 4 on 10/11/2017 by Rosendo Nathan DO at [facility] N/A: Spine Lumbar SARAH : SPINE [id number] / / 6.5 X 50 Mm Serrate Screws Implanted:Qty : 2 on 10/11/2017 by Rosendo Nathan DO at [facility] N/A: Spine Lumbar SARAH : SPINE [id number] / / 6.5 X 45 Mm Serrate Screw Implanted:Qty : 2 on 10/11/2017 by Rosendo Nathan DO at [facility] N/A: Spine Lumbar SARAH : SPINE [id number] / / 9 X 23x 6 - 9mm Pl Implanted:Qty : 1 on 10/11/2017 by Rosendo Nathan DO at [facility] N/A: Spine Lumbar SARAH : SPINE [id number] / / Shashank Bina 3 Ti 6x40mm - [id number] Implanted:Qty : 1 on 10/11/2017 by Rosendo Nathan DO at [facility] N/A: Spine Lumbar SARAH : SPINE [id number] / / Shashank Bina 3 Ti 6x45mm - [id number] Implanted:Qty : 1 on 10/11/2017 by Rosendo Nathan DO at [facility] N/A: Spine Lumbar SARAH : SPINE [id number] / / documented as of this encounter [...] and were consensually agreed upon. Care Teams Systems Support Specialist Relationship Specialty Start Date End Date Myesha Cavanaugh MD [address] [place], [place] [phone] PCP - General Family Medicine 02/18/22 documented as of this encounter
--- OUTSIDE RECORDS SUMMARY | 2024-04-17 01:48 | External Medical Summary | Summary of Care ---
Author Name Unknown Organization [facility] Address [address] [place] [address] Phone [phone] Care Team Providers Care Manager Golf Name Role Phone Олег Cavanaugh MD Primary Care Provid er Reason for Visit * Reason Comments eRx-Medication Refill Encounter Details Date Type Department Care Team (Late st Contact Info) Description 11/08/2023 Refill [facility] [address] [place] [phone] Олег Cavanaugh MD [address] [place] [address] Nausea and vomiting, unspecified vomiting type Allergies Active Allergy Reactions Criticality Noted Date Comments Amoxicillin 01/05/2017 thrush Latex 06/20/2013 Hives, rash and swelling Lisinopril 06/02/2023 COUGH Nickel Rash 12/03/2020 documented as of this encounter (statuses as of 11/09/2023) Medications Medication Sig Dispensed Refills Start Date End Date Status Spiriva Respimat 2.5 MCG/ACT Inhalation Aerosol Solution (Tiotropium Power Monohydrate) Inhale 2 Puffs by mouth daily. 12 g 3 09/23/2021 Active Additional Information Patient not taking.Reported on 09/26/2023 Albuterol Sulfate HFA 108 (90 Base) MCG/ACT Inhalation Aerosol SolutionIndicatio ns:Exacerbation of asthma, unspecified asthma severity, unspecified whether persistent INHALE 2 PUFFS BY MOUTH EVERY 4 HOURS NEEDED FOR WHEEZING 36 g 0 07/18/2022 Active Additional Information Patient not taking.Reported on 09/26/2023 DULoxetine HCl 60 MG Oral Capsule Delayed [...] before bedtime. 13 g 11 01/06/2023 Active hydrOXYzine HCl 50 MG Oral TabletIndications [...] 1 05/26/2023 Active Benzonatate 100 MG Oral CapsuleIndication s:Upper respiratory [...] at bedtime. 90 Tablet 3 09/01/2023 Active Additional Information Patient not taking.Reported on [...] the morning. 90 Tablet 3 11/06/2023 Active HYDROcodone-Aceta minophen 7.5-325 MG Oral TabletIndications :History of lumbar fusion,Spinal stenosis of lumbar region with neurogenic claudication,Lumb ar radiculitis,Sacro iliac joint pain Take 1 Tablet by mouth every 8 hours as needed for Pain, Severe. 90 Tablet 0 11/07/2023 Active Ondansetron HCl 4 MG Oral Tablet (Zofran)Indicatio ns:Nausea and vomiting, unspecified vomiting type TAKE 1 TABLET BY MOUTH EVERY 8 HOURS NEEDED FOR NAUSEA 20 Tablet 0 11/09/2023 Active Ondansetron HCl 4 MG Oral Tablet (Zofran)Indicatio ns:Nausea and vomiting, unspecified vomiting type Take 1 Tablet by mouth every 8 hours as needed for Nausea. 20 Tablet 0 10/16/2023 11/09/19 24 Discontinued documented as of this encounter (statuses as of 11/09/2023) Active Problems Problem Noted Date Diagnosed Date [...] as of this encounter (statuses as of 11/09/2023) Resolved Problems Problem Noted Date Diagnosed Date Resolved Date Food insecurity 04/19/2021 08/26/2021 Overview: Per [facility] Protocol Asthma exacerbation 03/30/2015 07/07/20 17 Moderate persistent asthma 11/09/2014 0 03/30/2015 Overview: PFT Pneumonitis 07/24/2014 01/06/2022 Asthma exacerbation 07/24/2014 03/30/20 15 documented as of this encounter (statuses as of 11/09/2023) Immunizations Name Administration Dates Next Due PPD [...] Answer Date Recorded PHQ Adult Total Score 20 10/25/2023 Hunger Vital Sign Answer Date Recorded Within [...] Miscellaneous Notes * Telephone Encounter - Олег Cavanaugh MD - 11/09/2023 3:07 PM EST Signed Prescriptions: Disp Refills Ondansetron HCl 4 MG Oral Tablet (Zofran) 20 Tab*0 Sig: TAKE 1 TABLET BY MOUTH EVERY 8 HOURS NEEDED FOR NAUSEA Authorizing Provider: ОЛЕГ CAVANAUGH * Telephone Encounter - Jessica Keller [facility] - 11/09/2023 9:02 AM ESTPending Prescriptions: Disp Refills Ondansetron HCl 4 MG Oral Tablet 20 Tab*0 Sig: Take 1 Tablet by mouth every 8 hours as needed for Nausea. * Telephone Encounter - eJssica Keller [facility] - 11/09/2023 9:02 AM EST Please approve if patient is to continue. Did you pend patient's preferred pharmacy and medication before forwarding?yes Pharmacy: [facility] [address] [address] [place] Pending Prescriptions: Disp Refills Ondansetron HCl 4 MG Oral Tablet (Zofran)*20 Tab*0 Sig: TAKE 1 TABLET BY MOUTH EVERY 8 HOURS NEEDED FOR NAUSEA Last Visit: 09/01/2023 (in office), 10/16/2023 (telemedicine) Next Visit: Visit date not found If no future appointments scheduled, and last appointment is greater than a year ago, please schedule patient for a follow-up appointment Last date the medication was ordered: 10/16/23 Is this request for a controlled substance?No Urine Drug Screen:No results found for this or any previous visit. Patient Phone Numbers Labs: Lab Results Component Value Date/Time CREAT 0.9 10/31/2023 10:39 AM CREAT 1.2 (H) 09/17/2020 10:53 AM POTASSIUM 4.6 10/31/2023 10:39 AM POTASSIUM 4.5 09/17/2020 10:53 AM TSH 0.30 09/01/2023 01:04 PM TSH 0.78 09/17/2020 10:53 AM LDLCALC 66 05/11/2022 11:00 AM ALT 43 (H) 10/31/2023 10:39 AM ALT 43 (H) 09/17/2020 10:53 AM HGBA1C 4.1 09/01/2023 01:04 PM documented in this encounter Plan of Treatment Upcoming Encounters Date Type Department Care Team (Latest Contact Info) Description 01/18/2024 1:30 PM EDT Hospital Encounter ENDO [facility], Endoscopy Room [facility] [address] [place] [phone] Erika Rios DO [address] [place] [address] 01/18/2024 1:30 PM EDT - 01/18/2024 2:30 PM EDT Surgery ENDO [facility], Endoscopy Room [facility] [address] [place] [phone] Erika Rios DO [address] [place] [address] COLONOSCOPY FLEXIBLE PROXIMAL DIAGNOSTIC 01/23/2024 1:00 PM EDT Imaging Radiology [facility] [address] [facility] [address] [place] [address] 02/06/2024 4:30 PM EDT Laboratory Laboratory, [facility] [address] [place] [address] Mare Wilkerson Marisabel [address] [facility] [place] [address] 02/12/2024 3:30 PM EDT Office Visit Hematology/Oncolog y [facility] Kandis Robbins [address] [place] [phone] Jenna Yanes CRNP [address] [facility] [place] [address] 03/15/2024 4:00 PM EDT Office Visit Nephrology, [facility] [address] [place] [address] Chon Whitley MD [address] [place] [address] Scheduled Procedures Name Priority Associated Diagnoses Date/Ti [...] fire each visit until score < 10) 10/26/2023 10/25/2023 Mammogram 01/18/2024 01/17/2023, 05/0 05/2023, 06/27/2013 GFR 10/31/2024 10/31/2023, 10/12, 09/23/2023, [...] this encounter Medical Devices Implanted Type Area Tube Pusher Device Identifier Shelf Expiration Date Model / Serial / Lot Vitoss Bimodal Foam Pack 10cc - [id number] Implanted:Qty : 2 on 10/11/2017 by Rosendo Nathan, DO at [facility] N/A: Spine Lumbar SARAH : SPINE 03/08/2019 / / [id number] Vitoss Bimodal Foam Pack 10cc - [id number] Implanted:Qty : 1 on 10/11/2017 by Rosendo Nathan, DO at [facility] N/A: Spine Lumbar SARAH : SPINE 02/05/2019 / / [id number] Screw Audie Bina 3 Ti Set - [id number] Implanted:Qty : 4 on 10/11/2017 by Rosendo Nathan DO at [facility] N/A: Spine Lumbar SARAH : SPINE [id number] / / 6.5 X 50 Mm Serrate Screws Implanted:Qty : 2 on 10/11/2017 by Rosendo Nathan, DO at [facility] N/A: Spine Lumbar SARAH : SPINE [id number] / / 6.5 X 45 Mm Serrate Screw Implanted:Qty : 2 on 10/11/2017 by Rosendo Nathan, DO at [facility] N/A: Spine Lumbar SARAH : SPINE [id number] / / 9 X 23x 6 - 9mm Pl Implanted:Qty : 1 on 10/11/2017 by Rosendo Nathan, DO at [facility] N/A: Spine Lumbar SARAH : SPINE [id number] / / Shashank Bina 3 Ti 6x40mm - [id number] Implanted:Qty : 1 on 10/11/2017 by Rosendo Nathan, DO at [facility] N/A: Spine Lumbar SARAH : SPINE [id number] / / Shashank Bina 3 Ti 6x45mm - [id number] Implanted:Qty : 1 on 10/11/2017 by Rosendo Nathan, DO at [facility] N/A: Spine Lumbar SARAH : SPINE [id number] / / documented as of this encounter Visit Diagnoses Diagnosis Nausea and vomiting, unspecified vomiting type Nausea & vomiting Nausea with vomiting Unintentional weight loss Loss of weight documented in this encounter Advance Directives Latest Code Status on File Code Status Date Activated Date Inactivated Comments Full Code 10/11/2017 9:23 AM 10/13/2017 10:36 PM This order reflects the patients wishes and were consensually agreed upon. Care Teams Manager Golf Relationship Specialty Start Date End Date Олег Cavanaugh MD [address] [place] [address] PCP - General Family Medicine 02/18/22 documented as of this encounter
--- OUTSIDE RECORDS SUMMARY | 2024-04-17 01:48 | External Medical Summary | Summary of Care ---
Author Name Unknown Organization [facility] Address [address] [address] Phone [phone] Care Team Providers Care Head Trimmer Name Role Phone Myesha Cavanaugh MD Primary Care Provid er Reason for Referral * Medication Prior Authorization - Pending Review Specialty Diagnoses / Procedures Referred By Contac t Referred To Contact Diagnoses History of lumbar fusion Spinal stenosis of lumbar region with neurogenic claudication Lumbar radiculitis Sacroiliac joint pain Myesha Cavanaugh MD [address] [place] [address] Referral ID Status Reason Start Date Expiration Date V isits Requested Visits Authorized [id number] Pending Review [id number] Encounter Details Date Type Department Care Team (Late st Contact Info) Description 11/30/2023 Telephone Located Within [facility] [address] [place] [facility] [place] [phone] Myesha Cavanaugh MD [address] [place] [address] Allergies Active Allergy Reactions Criticality Noted Date Comments Amoxicillin 01/05/2017 thrush Latex 06/20/2013 Hives, rash and swelling Lisinopril 06/02/2023 COUGH Nickel Rash 12/03/2020 documented as of this encounter (statuses as of 11/30/2023) Medications Medication Sig Dispensed Refills Start Date End Date Status Spiriva Respimat 2.5 MCG/ACT Inhalation Aerosol Solution (Tiotropium [place] Monohydrate) Inhale 2 Puffs by mouth daily. [...] as of this encounter (statuses as of 11/30/2023) Active Problems Problem Noted Date Diagnosed Date [...] as of this encounter (statuses as of 11/30/2023) Resolved Problems Problem Noted Date Diagnosed Date Resolved Date Food insecurity 04/19/2021 08/26/2021 Overview: Per [facility] Protocol Asthma exacerbation 03/30/2015 07/07/20 17 Moderate persistent asthma 11/09/2014 0 03/30/2015 Overview: PFT Pneumonitis 07/24/2014 01/06/2022 Asthma exacerbation 07/24/2014 03/30/20 15 documented as of this encounter (statuses as of 11/30/2023) Immunizations Name Administration Dates Next Due PPD [...] Telephone Encounter - Myesha Cavanaugh MD - 11/30/2023 3:23 PM EDT Refill sent documented in this encounter Plan of Treatment Upcoming Encounters Date Type Department Care Team (Latest Contact Info) Description 12/05/2023 11:30 AM EDT Hospital Encounter ENDO [facility], Endoscopy Room [facility] [address] [place] [address] Omid Snell MD [address] [place] [address] 12/05/2023 11:30 AM EDT - 12/05/2023 12:15 PM EDT Surgery ENDO [facility], Endoscopy Room [facility] [address] [place] [phone] Omid Snell MD [address] [place] [address] ESOPHAGOGASTRODUODENOSCOPY (EGD), FLEXIBLE, TRANSORAL, ENDOSCOPIC ULTRASOUND 12/11/2023 3:40 PM EDT Office Visit Located Within [facility] [address] [place] [facility] [place] [address] Myesha Cavanaugh MD [address] [facility] [address] 01/18/2024 1:30 PM EDT Hospital Encounter ENDO [facility], Endoscopy Room [facility] [address] [place], [place] [phone] Erika Rios, DO [address] [place] [address] 01/18/2024 1:30 PM EDT - 01/18/2024 2:30 PM EDT Surgery ENDO [facility], Endoscopy Room [facility] [address] [place] [phone] Erika Rios, [address] [place] [address] COLONOSCOPY FLEXIBLE PROXIMAL DIAGNOSTIC 01/23/2024 1:00 PM EDT Imaging Radiology [facility] 1st [facility] [address] [facility] [place] [address] 02/06/2024 4:30 PM EDT Laboratory Laboratory, [facility] [address] [facility] [place] [phone] [facility] [address] [facility] [place] [address] 02/12/2024 3:30 PM EDT Office Visit Hematology/Onco logy [place] [address] [facility] [place] [phone] Jenna Yanes CRNP [address] [facility] [place] [address] 03/15/2024 4:00 PM EDT Office Visit Nephrology, [place] [address] [place] [address] Chon Whitley MD [address] [place] [address] Scheduled Procedures Name Priority Associated Diagnoses Date/Ti [...] this encounter Medical Devices Implanted Type Area Premix Operator Concentrate Device Identifier Shelf Expiration Date Model / Serial / Lot Vitoss Bimodal Foam Pack 10cc - [id number] Implanted:Qty : 2 on 10/11/2017 by Rosendo Nathan DO at [facility] N/A: Spine Lumbar SARAH : SPINE 03/08/2019 / / [id number] Vitoss Bimodal Foam Pack 10cc - [id number] Implanted:Qty : 1 on 10/11/2017 by Rosendo Nathan DO at [facility] N/A: Spine Lumbar SARAH : SPINE 02/05/2019 / / [id number] Screw Audie Bina 3 Ti Set - [id number] Implanted:Qty : 4 on 10/11/2017 by Rosendo Nathan DO at [facility] N/A: Spine Lumbar SARAH : SPINE [id number] / / 6.5 X 50 Mm Serrate Screws Implanted:Qty : 2 on 10/11/2017 by Rosendo Nathan DO at [facility] N/A: Spine Lumbar SARAH : SPINE [id number] / / 6.5 X 45 Mm Serrate Screw Implanted:Qty : 2 on 10/11/2017 by Rosendo Nathan DO at [facility] N/A: Spine Lumbar SARAH : SPINE [id number] / / 9 X 23x 6 - 9mm Pl Implanted:Qty : 1 on 10/11/2017 by Rosendo Nathan DO at [facility] N/A: Spine Lumbar SARAH : SPINE [id number] / / Shashank Bina 3 Ti 6x40mm - [id number] Implanted:Qty : 1 on 10/11/2017 by Rosendo Nathan DO at [facility] N/A: Spine Lumbar SARAH : SPINE [id number] / / Shashank Bina 3 Ti 6x45mm - [id number] Implanted:Qty : 1 on 10/11/2017 [facility] N/A: Spine Lumbar SARAH : SPINE [id number] / / documented as of this encounter [...] and were consensually agreed upon. Care Teams Head Trimmer Relationship Specialty Start Date End Date Myesha Cavanaugh MD [address] [place] [address] PCP - General Family Medicine 02/18/22 documented as of this encounter
--- OUTSIDE RECORDS SUMMARY | 2024-04-17 01:48 | External Medical Summary | Summary of Care ---
Author Name Unknown Organization [facility] Address [address] [place] [facility] [place] [place] [address] Phone [phone] Care Team Providers Care Labor Law Professor Name Role Phone Myesha Cavanaugh MD Primary Care Provid er Reason for Referral * Medication Prior Authorization - Pending Review Specialty Diagnoses / Procedures Referred By Contac t Referred To Contact Diagnoses History of lumbar fusion Spinal stenosis of lumbar region with neurogenic claudication Lumbar radiculitis Sacroiliac joint pain Myesha Cavanaugh MD [address] [place] [address] Referral ID Status Reason Start Date Expiration Date V isits Requested Visits Authorized [id number] Pending Review [id number] Reason for Visit * Reason Onset Date Comments Medication Pre-auth 11/30/2023 HYDROCODONE- ACETAMIN 7.5-325 Encounter Details Date Type Department Care Team (Late st Contact Info) Description 11/30/2023 Telephone [facility] [address] [place] [address] Myesha Cavanaugh MD [address] [place] [address] Medication Pre-auth (HYDROCODONE-ACETAMIN ... Allergies Active Allergy Reactions Criticality Noted Date Comments Amoxicillin 01/05/2017 thrush Latex 06/20/2013 Hives, rash and swelling Lisinopril 06/02/2023 COUGH Nickel Rash 12/03/2020 documented as of this encounter (statuses as of 11/30/2023) Medications Medication Sig Dispensed Refills Start Date End Date Status Spiriva Respimat 2.5 MCG/ACT Inhalation Aerosol Solution (Tiotropium [place] Monohydrate) Inhale 2 Puffs by mouth daily. [...] notes. Prior authorization entered in [employer] at [facility]# [id number] Please fax to [phone] before 12/01/2023 at 10AM. Thank you, Spencer Singletary ([facility]) Data Center Solutions Architect III [facility] ([facility]) (formerly Telepharmacy) 11/30/2023, 5:35 PM * Telephone Encounter - Myesha Cavanaugh MD - 11/30/2023 3:23 PM EDT Refill sent documented in this encounter Plan of Treatment Upcoming Encounters Date Type Department Care Team (Latest Contact Info) Description 12/05/2023 11:30 AM EDT Hospital Encounter ENDO [facility], Endoscopy Room [facility] [address] [place] [phone] Omid Snell MD [address] [place] [address] 12/05/2023 11:30 AM EDT - 12/05/2023 12:15 PM EDT Surgery ENDO [facility], Endoscopy Room [facility] [address] [place] [address] Omid Snell MD [address] [place] [address] ESOPHAGOGASTRODUODENOSCOPY (EGD), FLEXIBLE, TRANSORAL, ENDOSCOPIC ULTRASOUND 12/11/2023 3:40 PM EDT Office Visit [facility] [address] [place] [address] Myesha Cavanaugh MD [address] [place] [address] 01/18/2024 1:30 PM EDT Hospital Encounter ENDO [facility], Endoscopy Room [facility] [address] [place] [address] Erika Rios DO [address] [place] [address] 01/18/2024 1:30 PM EDT - 01/18/2024 2:30 PM EDT Surgery ENDO [facility], Endoscopy Room [facility] [address] [place] [address] Erika Rios DO [address] [place] [address] COLONOSCOPY FLEXIBLE PROXIMAL DIAGNOSTIC 01/23/2024 1:00 PM EDT Imaging Radiology [address] [place] [address] 02/06/2024 4:30 PM EDT Laboratory Laboratory, [facility] [address] [place] [phone] [place] [address] [place] [address] 02/12/2024 3:30 PM EDT Office Visit Hematology/Onco logy [employer] [address] [place] [phone] Jenna Yanes CRNP [address] [facility] [place] [address] 03/15/2024 4:00 PM EDT Office Visit Nephrology, [facility] [address] [facility] [address] [place] [address] Chon Whitley MD [address] [place] [address] Scheduled Procedures Name Priority Associated Diagnoses Date/Ti md ESOPHAGOGASTRODUODENOSCOPY ( EGD), FLEXIBLE, TRANSORAL, ENDOSCOPIC ULTRASOUND [...] this encounter Medical Devices Implanted Type Area Mobility Scooter Repairer Device Identifier Shelf Expiration Date Model / Serial / Lot Vitoss Bimodal Foam Pack 10cc - [id number] Implanted:Qty : 2 on 10/11/2017 by Rosendo Nathan, DO at [facility] N/A: Spine Lumbar SARAH : SPINE 03/08/2019 / / [id number] Vitoss Bimodal Foam Pack 10cc - [id number] Implanted:Qty : 1 on 10/11/2017 by Rosendo Nathan, DO at [facility] N/A: Spine Lumbar SARAH : SPINE 02/05/2019 / / [id number] Screw Audie Bina 3 Ti Set - [id number] Implanted:Qty : 4 on 10/11/2017 by Rosendo Nathan, DO at [facility] N/A: Spine Lumbar SARAH : SPINE [id number] / / 6.5 X 50 Mm Serrate Screws Implanted:Qty : 2 on 10/11/2017 by Rosendo Nathan DO at [facility] N/A: Spine Lumbar SARAH : SPINE [id number] / / 6.5 X 45 Mm Serrate Screw Implanted:Qty : 2 on 10/11/2017 by Rosendo Nathan DO at [facility] N/A: Spine Lumbar SARAH : SPINE [id number] / / 9 X 23x 6 - 9mm Pl Implanted:Qty : 1 on 10/11/2017 by Rosendo Nathan DO at [facility] N/A: Spine Lumbar SARAH : SPINE [id number] / / Shashank Bina 3 Ti 6x40mm - [id number] Implanted:Qty : 1 on 10/11/2017 by Rosendo Nathan DO at [facility] N/A: Spine Lumbar SARAH : SPINE [id number] / / Shashank Bina 3 Ti 6x45mm - [id number] Implanted:Qty : 1 on 10/11/2017 by Rosendo Nathan DO at [facility] N/A: Spine Lumbar SARAH : SPINE [id number] / / documented as of this encounter [...] and were consensually agreed upon. Care Teams Labor Law Professor Relationship Specialty Start Date End Date Myesha Cavanaugh MD [address] [place] [address] PCP - General Family Medicine 02/18/22 documented as of this encounter
--- OUTSIDE RECORDS SUMMARY | 2024-04-17 01:48 | External Medical Summary | Summary of Care ---
Author Name Unknown Organization [facility] Address [address] [facility] [address] Phone [phone] Care Team Providers Care Print Decorator Name Role Phone Myesha Cavanaugh MD Primary Care Provid er Reason for Visit * Reason Onset Date Comments Appointment 11/07/2023 Encounter Details Date Type Department Care Team (Late st Contact Info) Description 11/07/2023 Telephone Hematology/On[facility] [place] [address] [facility] [address] Jenna Yanes CRNP [address] [place] [address] Appointment Allergies Active Allergy Reactions Criticality Noted Date Comments Amoxicillin 01/05/2017 thrush Latex 06/20/2013 Hives, rash and swelling Lisinopril 06/02/2023 COUGH Nickel Rash 12/03/2020 documented as of this encounter (statuses as of 11/10/2023) Medications Medication Sig Dispensed Refills Start Date End Date Status Spiriva Respimat 2.5 MCG/ACT Inhalation Aerosol Solution (Tiotropium [place] Monohydrate) Inhale 2 Puffs by mouth daily. 12 g 3 2 Active Additional Information Patient not taking.Reported on 09/26/2023 Albuterol Sulfate HFA 108 (90 Base) MCG/ACT Inhalation Aerosol SolutionIndicati ons:Exacerbation of asthma, unspecified asthma severity, unspecified whether persistent INHALE 2 PUFFS BY MOUTH EVERY 4 HOURS NEEDED FOR WHEEZING 36 g 0 2 Active Additional Information Patient not taking.Reported on 09/26/2023 DULoxetine HCl 60 MG Oral Capsule Delayed Release Particles (Cymbalta)Indica tions:Fibromyalg ia,Major depressive disorder with single episode, in full remission (HCC) Take 1 Capsule by mouth in the morning. Do not cut, crush or chew. 90 Capsule 3 3 Active Mometasone Furo-Formoterol Fum 200-5 MCG/ACT Inhalation Aerosol (Dulera) Inhale 2 Puffs by mouth in the morning and 2 Puffs before bedtime. 13 g 11 3 Active hydrOXYzine HCl 50 MG Oral TabletIndication [...] 11/06/2023 Compressor NebulizerIndicat ions:Moderate persistent asthma without complication,ASSURANCE SENIOR D, 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 Use as directed. 1 Each 1 3 Active Benzonatate 100 MG Oral CapsuleIndicatio ns:Upper respiratory [...] Nebulization Solution (Proventil)Indic ations:Moderate persistent asthma without complication,ASSURANCE SENIOR D, 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) Inhale 1 Vial via [...] at bedtime. 90 Tablet 3 3 Active Additional Information Patient not taking.Reported on 09/26/2023 Pregabalin 150 MG Oral Capsule (Lyrica)Indicati ons:Spinal stenosis of lumbar region with neurogenic claudication Take 1 Capsule by mouth in the morning and 1 Capsule before bedtime. 60 Capsule 2 4 Active Loratadine 10 MG Oral Tablet (Claritin) Take 1 tablet by mouth once daily 90 Tablet 1 4 Active Omeprazole 40 MG Oral Capsule Delayed Release (PriLOSEC)Indica tions:Nausea and vomiting, unspecified vomiting type Take 1 Capsule by mouth in the morning and 1 Capsule before bedtime. 60 Capsule 3 4 Active LORazepam 0.5 MG Oral Tablet (Ativan)Indicati ons:Anxiety TAKE 1 TABLET BY MOUTH ONCE DAILY NEEDED FOR ANXIETY 30 Tablet 0 4 Active FLUoxetine HCl 40 MG Oral Capsule (PROzac)Indicati ons:Major depressive disorder with single episode, in full remission (HCC) Take 1 capsule by mouth in the morning 90 Capsule 1 4 Active Folic Acid 1 MG Oral TabletIndication s:Anemia due to folic acid deficiency, unspecified deficiency type Take 1 Tablet by mouth in the morning. 90 Tablet 3 4 Active HYDROcodone-Acet aminophen 7.5-325 MG Oral TabletIndication s:History of lumbar fusion,Spinal stenosis of lumbar region with neurogenic claudication,Lum bar radiculitis,Sacr oiliac joint pain Take 1 Tablet by mouth every 8 hours as needed for Pain, Severe. Do not start before September 22, 2023. 90 Tablet 0 4 11/07/19 24 Discontinued(Ref ill) Ondansetron HCl 4 MG Oral Tablet (Zofran)Indicati ons:Nausea and vomiting, unspecified vomiting type Take 1 Tablet by mouth every 8 hours as needed for Nausea. 20 Tablet 0 4 11/09/19 24 Discontinued documented as of this encounter (statuses as of 11/10/2023) Active Problems Problem Noted Date Diagnosed Date [...] as of this encounter (statuses as of 11/10/2023) Resolved Problems Problem Noted Date Diagnosed Date Resolved Date Food insecurity 04/19/2021 08/26/2021 Overview: Per [facility] Protocol Asthma exacerbation 03/30/2015 07/07/20 17 Moderate persistent asthma 11/09/2014 0 03/30/2015 Overview: PFT Pneumonitis 07/24/2014 01/06/2022 Asthma exacerbation 07/24/2014 03/30/20 15 documented as of this encounter (statuses as of 11/10/2023) Immunizations Name Administration Dates Next Due PPD [...] encounter Miscellaneous Notes * Telephone Encounter - Claudia Ocampo OSA - 11/10/2023 2:58 PM EST Spoke to pt, jean'd EUS 12/05/23. Pt states she is waiting on a call from surgeon regarding her spinesurgery. Pt will let our office know if she needs to reschedule. * Telephone Encounter - Claudia Ocampo OSA - 11/09/2023 9:34 AM EST Lmm for pt. * Telephone Encounter - Claudia Ocampo OSA - 11/08/2023 9:43 AM EST Lmm for pt to return call. * Telephone Encounter - Claudia Ocampo OSA - 11/07/2023 11:27 AM EST Spoke to pt, trying to schedule on 12/05/23. Pt states she needs afternoon appt so I need to rearrange other pt's to make it work. * Addendum Note - Omid Keenan MD - 11/07/2023 10:54 AM ESTAddended by: OMID KEENAN on: 11/07/2023 10:54 AM Modules accepted: Orders * Telephone Encounter - Omid Keenan MD - 11/07/2023 10:[address] scan is showing a new PD dilation hence needs EUS with me within 4 weeks if possible. * Telephone Encounter - Claudia Ocampo OSA - 11/07/2023 10:43 AM EST Gastro order placed for pt for 3 day urgent office visit for pancreatic cyst and weight loss. Pt's last EUS/EGD was 12/08/20. Please advise if you think pt should have office visit. Also pt is jean'd for colon 01/18/24 for weight loss and microcytic anemia. Thanks! * Telephone Encounter - Bere Goldsmith OSA - 11/07/2023 7:37 AM EST Gastro-please contact patient for an appt in regards to CT A/P 11/03/23: dilated pancreatic duct up to 6 mm at the head and 4.6 mm at the body, 1.3 cm cyst or cystic lesion at the pancreatic tail. Recommending MRCP Thank you documented in this encounter Plan of Treatment Upcoming Encounters Date Type Department Care Team (Latest Contact Info) Description 12/05/2023 11:15 AM EDT Hospital Encounter ENDO [facility], Endoscopy Room [facility] [address] [place] [phone] Omid Keenan MD [address] [place] [address] 12/05/2023 11:15 AM EDT - 12/05/2023 12:15 PM EDT Surgery ENDO [facility], Endoscopy Room [facility] [address] [place] [address] Omid Keenan MD [address] [place] [address] ESOPHAGOGASTRODUODENOSCOPY (EGD), FLEXIBLE, TRANSORAL, ENDOSCOPIC ULTRASOUND 01/18/2024 1:30 PM EDT Hospital Encounter ENDO [facility], Endoscopy Room [facility] [address] [place] [phone] Erika Rios DO [address] [place] [address] 01/18/2024 1:30 PM EDT - 01/18/2024 2:30 PM EDT Surgery ENDO [facility], Endoscopy Room [facility] [address] [place], [place] [phone] Erika Rios DO [address] [place], [place] [address] COLONOSCOPY FLEXIBLE PROXIMAL DIAGNOSTIC 01/23/2024 1:00 PM EDT Imaging Radiology [facility] 1st [facility] [address] [facility] [place] [address] 02/06/2024 4:30 PM EDT Laboratory Laboratory, [facility] [address] [facility] [place] [phone] [facility] [address] [facility] [place] [place] [address] 02/12/2024 3:30 PM EDT Office Visit Hematology[facility] [place] [address] [place] [address] Jenna Yanes CRNP [address] [place] [address] [place] [address] 03/15/2024 4:00 PM EDT Office Visit Nephrology, [facility] [address] [facility] [place] [address] Chon Whitley MD [address] [place] [address] Scheduled Orders Name Type Priority Associated Diagnoses Orde r Schedule US ENDOSCOPIC Medical Imaging Routine Pancreatic cyst Expected: 11/07/2023, Expires: 12/05/2024 Scheduled Procedures Name Priority Associated Diagnoses Date/Ti me ESOPHAGOGASTRODUODENOSCOPY ( EGD), FLEXIBLE, TRANSORAL, ENDOSCOPIC ULTRASOUND Pancreatic cyst 12/05/2023 11:15 AM EDT COLONOSCOPY FLEXIBLE PROXIMA L DIAGNOSTIC [...] this encounter Medical Devices Implanted Type Area Society Reporter Device Identifier Shelf Expiration Date Model / Serial / Lot Vitoss Bimodal Foam Pack 10cc - [id number] Implanted:Qty : 2 on 10/11/2017 by Rosendo Nathan DO at [facility] N/A: Spine Lumbar SARAH : SPINE 03/08/2019 / / [id number] Vitoss Bimodal Foam Pack 10cc - [id number] Implanted:Qty : 1 on 10/11/2017 by Rosendo Nathan DO at [facility] N/A: Spine Lumbar SARAH : SPINE 02/05/2019 / / [id number] Screw Audie Bina 3 Ti Set - [id number] Implanted:Qty : 4 on 10/11/2017 by Rosendo Nathan DO at [facility] N/A: Spine Lumbar SARAH : SPINE [id number] / / 6.5 X 50 Mm Serrate Screws Implanted:Qty : 2 on 10/11/2017 by Roesndo Nathan DO at [facility] N/A: Spine Lumbar SARAH : SPINE [id number] / / 6.5 X 45 Mm Serrate Screw Implanted:Qty : 2 on 10/11/2017 by Rosendo Nathan DO at [facility] N/A: Spine Lumbar SARAH : SPINE [id number] / / 9 X 23x 6 - 9mm Pl Implanted:Qty : 1 on 10/11/2017 by Rosendo Nathan DO at [facility] N/A: Spine Lumbar SARAH : SPINE [id number] / / Shashank Bina 3 Ti 6x40mm - [id number] Implanted:Qty : 1 on 10/11/2017 by Rosendo Nathan DO at [facility] N/A: Spine Lumbar SARAH : SPINE [id number] / / Shashank Bina 3 Ti 6x45mm - [id number] Implanted:Qty : 1 on 10/11/2017 by Rosendo Nathan DO at [facility] N/A: Spine Lumbar SARAH : SPINE [id number] / / documented as of this encounter Visit Diagnoses Diagnosis Pancreatic cyst- Primary Cyst and pseudocyst of pancreas Pancreatic cyst Cyst and pseudocyst of pancreas Nausea & vomiting Nausea with vomiting Unintentional weight loss Loss of weight documented in this encounter Advance Directives Latest Code Status on File Code Status Date Activated Date Inactivated Comments Full Code 10/11/2017 9:23 AM 10/13/2017 10:36 PM This order reflects the patients wishes and were consensually agreed upon. Care Teams Print Decorator Relationship Specialty Start Date End Date Myesha Cavnaaugh MD [address] [place] [address] PCP - General Family Medicine 02/18/22 documented as of this encounter
--- OUTSIDE RECORDS SUMMARY | 2024-04-17 01:48 | External Medical Summary | Summary of Care ---
Author Name Unknown Organization [facility] Address [address] [place] [address] Phone [phone] Care Team Providers Care Mitering Machine Operator Name Role Phone Myesha Cavanaugh MD Primary Care Provid er Reason for Visit * Reason Onset Date Comments Med Request 11/27/2023 Encounter Details Date Type Department Care Team (Late st Contact Info) Description 11/27/2023 Telephone [facility] [address] [place] [address] Myesha Cavanaugh MD [address] [place] [address] Med Request Allergies Active Allergy Reactions Criticality Noted Date Comments Amoxicillin 01/05/2017 thrush Latex 06/20/2013 Hives, rash and swelling Lisinopril 06/02/2023 COUGH Nickel Rash 12/03/2020 documented as of this encounter (statuses as of 11/30/2023) Medications Medication Sig Dispensed Refills Start Date End Date Status Spiriva Respimat 2.5 MCG/ACT Inhalation Aerosol Solution (Tiotropium [place] Monohydrate) Inhale 2 Puffs by mouth daily. [...] 1 05/26/2023 Active Benzonatate 100 MG Oral CapsuleIndications: Upper respiratory [...] the morning. 90 Tablet 3 11/06/2023 Active HYDROcodone-Acetami nophen 7.5-325 MG Oral TabletIndications:H [...] every 6 hours as needed. 0 Active documented as of this encounter (statuses [...] Encounter - Myesha Cavanaugh MD - 11/30/2023 2:27 PM EDT See MyG Also, I'm reaching out to her ortho surgeon (Antony Obando [facility]) to see if his office could take over pain mgmt until their surgery which is tentatively scheduled. * Telephone Encounter - Megan Valladares OSA - 11/30/2023 2:11 PM EDT Patient calling in to check on the status of previous message. Patient Called within 48 hour timeframe. Reminded patient of 48 hour turn-around time. * Telephone Encounter - Ivelisse Londono PHARM Tech - 11/27/2023 12:06 PM EDT Pt called stating that she has been in a lot more pain so she was taking more of the hydrocodone and now is asking if something else can be prescribed to her to help ease the pain, asking for a call back at [phone] , please advise Thank you, [facility] Machine Operator II [facility] (formerly Telepharmacy) 11/27/2023,12:08 PM documented in this encounter Plan of Treatment Upcoming Encounters Date Type Department Care Team (Latest Contact Info) Description 12/05/2023 11:30 AM EDT Hospital Encounter ENDO [facility], Endoscopy Room [facility] [address] [place] [phone] Omid Snell MD [address] [place] [address] 12/05/2023 11:30 AM EDT - 12/05/2023 12:15 PM EDT Surgery ENDO [facility], Endoscopy Room [facility] [address] [place] [phone] Omid Snell MD [address] [place] [address] ESOPHAGOGASTRODUODENOSCOPY (EGD), FLEXIBLE, TRANSORAL, ENDOSCOPIC ULTRASOUND 12/11/2023 3:40 PM EDT Office Visit [facility] [address] [facility], [place] [address] Myesha Cavanaugh MD [address] [facility], [place] [address] 01/18/2024 1:30 PM EDT Hospital Encounter ENDO [facility], Endoscopy Room [facility] [address] [place] [address] Erika Rios DO [address] [place] [address] 01/18/2024 1:30 PM EDT - 01/18/2024 2:30 PM EDT Surgery ENDO [facility], Endoscopy Room [facility] [address] [place] [phone] Erika Rios DO [address] [place] [address] COLONOSCOPY FLEXIBLE PROXIMAL DIAGNOSTIC 01/23/2024 1:00 PM EDT Imaging Radiology [facility] [facility] [address] [place] [address] 02/06/2024 4:30 PM EDT Laboratory Laboratory, [facility] [address] [place] [phone] [facility] [address] [place] [address] 02/12/2024 3:30 PM EDT Office Visit Hematology/Onco logy [facility] [address] [place] [phone] Jenna Yanes CRNP [address] [place] [address] [place] [address] 03/15/2024 4:00 PM EDT Office Visit Nephrology, Charbel Marquis [address] [facility] [place] [address] Chon Whitley MD [address] [facility] [place] [address] Scheduled Procedures Name Priority Associated Diagnoses Date/Ti [...] this encounter Medical Devices Implanted Type Area Restaurant Cook Device Identifier Shelf Expiration Date Model / Serial / Lot Vitoss Bimodal Foam Pack 10cc - [id number] Implanted:Qty : 2 on 10/11/2017 by Rosendo Nathan DO at [facility] N/A: Spine Lumbar SARAH : SPINE 03/08/2019 / / [id number] Vitoss Bimodal Foam Pack 10cc - [id number] Implanted:Qty : 1 on 10/11/2017 by Rosendo Nathan DO at [facility] N/A: Spine Lumbar SARAH : SPINE 02/05/2019 / / [id number] Screw Audie Bina 3 Ti Set - [id number] Implanted:Qty : 4 on 10/11/2017 by Rosendo Nathan, DO at [facility] N/A: Spine Lumbar SARAH : SPINE [id number] / / 6.5 X 50 Mm Serrate Screws Implanted:Qty : 2 on 10/11/2017 by Rosendo Nathan DO at [facility] N/A: Spine Lumbar SARAH : SPINE [id number] / / 6.5 X 45 Mm Serrate Screw Implanted:Qty : 2 on 10/11/2017 by Rosendo Nathan DO at [facility] N/A: Spine Lumbar SARAH : SPINE [id number] / / 9 X 23x 6 - 9mm Pl Implanted:Qty : 1 on 10/11/2017 by Rosendo Nathan DO at [facility] N/A: Spine Lumbar SARAH : SPINE [id number] / / Shashank Bina 3 Ti 6x40mm - [id number] Implanted:Qty : 1 on 10/11/2017 by Rosendo Nathan, DO at [facility] N/A: Spine Lumbar SARAH : SPINE [id number] / / Shashank Bina 3 Ti 6x45mm - [id number] Implanted:Qty : 1 on 10/11/2017 by Rosendo Nathan, DO at [facility] N/A: Spine Lumbar SARAH : SPINE [id number] / / documented as of this encounter [...] and were consensually agreed upon. Care Teams Mitering Machine Operator Relationship Specialty Start Date End Date Myesha Cavanaugh MD [address] [place] [address] PCP - General Family Medicine 02/18/22 documented as of this encounter
--- OUTSIDE RECORDS SUMMARY | 2024-04-17 01:49 | External Medical Summary | Summary of Care ---
Author Name Unknown Organization [facility] Address [address] [facility] [address] Phone [phone] Care Team Providers Care Manager Nc Name Role Phone Myesha Cavanaugh MD Primary Care Provid er Reason for Visit * Reason Onset Date Comments Information 11/07/2023 Encounter Details Date Type Department Care Team (Late st Contact Info) Description 11/07/2023 Telephone Hematology/Oncology [facility] [address] [facility] [address] Jenna Yanes CRNP [address] [place] [address] Information Allergies Active Allergy Reactions Criticality Noted Date Comments Amoxicillin 01/05/2017 thrush Latex 06/20/2013 Hives, rash and swelling Lisinopril 06/02/2023 COUGH Nickel Rash 12/03/2020 documented as of this encounter (statuses as of 11/09/2023) Medications Medication Sig Dispensed Refills Start Date End Date Status Spiriva Respimat 2.5 MCG/ACT Inhalation Aerosol Solution (Tiotropium [place] Monohydrate) Inhale 2 Puffs by mouth daily. [...] 01/06/2023 Active hydrOXYzine HCl 50 MG Oral TabletIndications: Anxiety,Pruritus [...] once daily 90 Tablet 1 10/11/2023 Active Ondansetron HCl 4 MG Oral Tablet (Zofran)Indication s:Nausea and vomiting, unspecified vomiting type Take 1 Tablet by mouth every 8 hours as needed for Nausea. 20 Tablet 0 10/16/2023 Active Omeprazole 40 MG Oral Capsule Delayed [...] the morning. 90 Tablet 3 11/06/2023 Active HYDROcodone-Acetam inophen 7.5-325 MG Oral TabletIndications: History of lumbar fusion,Spinal stenosis of lumbar region with neurogenic claudication,Lumba r radiculitis,Sacroi liac joint pain Take 1 Tablet by mouth every 8 hours as needed for Pain, Severe. Do not start before September 22, 2023. 90 Tablet 0 09/22/2023 Discontinue d(Refill) documented as of this encounter [...] encounter Miscellaneous Notes * Telephone Encounter - Jenna Yanes CRNP - 11/09/2023 3:03 PM EST Spoke with Dr. Obando. After review of CT A/P does not feel further imaging with MRI is indicated at this time. Will be reaching out to patient to schedule appointment in office for surgical planning. * Telephone Encounter - Aracely Ramirez OSA - 11/08/2023 3:27 PM EST [facility] requesting 10/31/23 Abd/Pelvis CT imaging. [place] Authorization to Release form on file. Imaging pushed through PACS to [facility] Life Image account per specific request. * Telephone Encounter - Jenna Yanes CRNP - 11/08/2023 3:24 PM EST Received call from nurse at Dr. Nathan's office. They have not yet received the pushed images through PACS. Do they need to be pushed again? * Telephone Encounter - Yady Puga RN - 11/08/2023 12:[address] Erickson office ([phone]) and spoke to Yadi. Advised that we had images of CT scan pushed- she asked that we also fax report to [phone] (faxed after call). Advised her that Jenna wanted to see if Dr Nathan could review scan results to see if he recommends a follow up MRI, and if so, does he want to order it or does he want her to. Yadi states thatira will give this message to Dr Nathan, Dr Nathan will likely want to talk to Jenna directlyabout this. Provided contact information. * Telephone Encounter - Aracely Ramirez OSA - 11/08/2023 11:13 AM EST [place] Authorization to Release form on file. 10/31/23 Abd/Pelvis CT Images pushed through PACS to [facility] All Sites Power Share. * Telephone Encounter - Bear Momin RN - 11/07/2023 2:42 PM EST Radiology- can we please push patients recent CT A/P images to [facility]. Thank you. * Telephone Encounter - Jenna Yanes CRNP - 11/07/2023 2:[address] A/P 10/31/23: 1. Liver and spleen unremarkable. 2. Unusual serpiginous lesion involving the L3 and L4 vertebral bodies, and extending across the disc space. This is new since the above referenced prior imaging. MRI lumbar spine without and with contrast is recommended at this time. This could reflect an unusual appearance for Schmorl's node. Rather atypical appearance of plasmacytoma could be considered, given the clinical history. 3. Dilated pancreatic duct up to 6 mm at the head and 4.6 mm at the body, increased since prior studies. 1.3 cm cyst or cystic lesion at the pancreatic tail appears new since the prior studies. MRI pancreas without and with contrast, as well as MRCP recommended. 4. Small patchy ground-glass infiltrates at the bases primarily on the left, new since prior chest CT. These could be inflammatory or infectious in etiology. Patient follows with Dr. Nathan with [facility] Neurosurgery. Can we please push images for his review?Patient to have revision L3-4 decompression and fusion in the near future. Patient also had CT L spine within [facility] system in September. Based on above imaging does he feel another lumbar spine MRI is needed prior to surgery? If so would he want this MRI done at [facility] or would he prefer to be doneat [facility]? Thank you! documented in this encounter Plan of Treatment Upcoming Encounters Date Type Department Care Team (Latest Contact Info) Description 01/18/2024 1:30 PM EDT Hospital Encounter ENDO [facility], Endoscopy Room [facility] [address] [facility] [place], [place] [phone] Erika Rios, DO [address] [place], [place] [address] 01/18/2024 1:30 PM EDT - 01/18/2024 2:30 PM EDT Surgery ENDO [facility] [address], Endoscopy Room [facility] [place], [place] [phone] Erika Rios, DO [address] [place], [place] [address] COLONOSCOPY FLEXIBLE PROXIMAL DIAGNOSTIC 01/23/2024 1:00 PM EDT Imaging Radiology [address] [place] [address] 02/06/2024 4:30 PM EDT Laboratory Laboratory, [facility] [address] [place] [phone] [facility] Lab [facility] [address] [place], [place] [address] 02/12/2024 3:30 PM EDT Office Visit Hematology/Oncolog y [facility] [address] [facility] [place] [phone] Jenna Yanes CRNP [address] [place] [address] [place] [address] 03/15/2024 4:00 PM EDT Office Visit Nephrology, [facility] [address] [place] [address] Chon Whitley MD 200 [facility] [place] [address] Scheduled Procedures Name Priority Associated Diagnoses Date/Ti [...] this encounter Medical Devices Implanted Type Area Physical Therapy Aides Teacher Device Identifier Shelf Expiration Date Model / Serial / Lot Vitoss Bimodal Foam Pack 10cc - [id number] Implanted:Qty : 2 on 10/11/2017 by Rosendo Nathan DO at [facility] N/A: Spine Lumbar SARAH : SPINE 03/08/2019 / / [id number] Vitoss Bimodal Foam Pack 10cc - [id number] Implanted:Qty : 1 on 10/11/2017 by Rosendo Nathan DO at [facility] N/A: Spine Lumbar SARAH : SPINE 02/05/2019 / / [id number] Screw Audie Bina 3 Ti Set - [id number] Implanted:Qty : 4 on 10/11/2017 by Rosendo Nathan DO at [facility] N/A: Spine Lumbar SARAH : SPINE [id number] / / 6.5 X 50 Mm Serrate Screws Implanted:Qty : 2 on 10/11/2017 by Rosendo Nathan DO at [facility] N/A: Spine Lumbar SARAH : SPINE [id number] / / 6.5 X 45 Mm Serrate Screw Implanted:Qty : 2 on 10/11/2017 by Rosendo Nathan DO at [facility] N/A: Spine Lumbar SARAH : SPINE [id number] / / 9 X 23x 6 - 9mm Pl Implanted:Qty : 1 on 10/11/2017 by Rosendo Nathan DO at [facility] N/A: Spine Lumbar SARAH : SPINE [id number] / / Shashank Bina 3 Ti 6x40mm - [id number] Implanted:Qty : 1 on 10/11/2017 by Rosendo Nathan DO at [facility] N/A: Spine Lumbar SARAH : SPINE [id number] / / Shashank Bina 3 Ti 6x45mm - [id number] Implanted:Qty : 1 on 10/11/2017 by Rosendo Nathan DO at [facility] N/A: Spine Lumbar SARAH : SPINE [id number] / / documented as of this encounter Advance Directives Latest Code Status on File Code Status Date Activated Date Inactivated Comments Full Code 10/11/2017 9:23 AM 10/13/2017 10:36 PM This order reflects the patients wishes and were consensually agreed upon. Care Teams Manager Nc Relationship Specialty Start Date End Date Myesha Cavanaugh MD [address] [place] [address] PCP - General Family Medicine 02/18/22 documented as of this encounter
--- OUTSIDE RECORDS SUMMARY | 2024-04-17 01:49 | External Medical Summary | Summary of Care ---
Author Name Unknown Organization [facility] Address [address] [facility] [address] Phone [phone] Care Team Providers Care Registered Midwife Name Role Phone Myesha Cavanaugh MD Primary Care Provid er Reason for Visit * Reason Onset Date Comments Information 11/07/2023 Encounter Details Date Type Department Care Team (Late st Contact Info) Description 11/07/2023 Telephone Hematology/Oncology [facility] [address] [facility] [address] Jenna Yanes CRNP [address] [place] [address] Information Allergies Active Allergy Reactions Criticality Noted Date Comments Amoxicillin 01/05/2017 thrush Latex 06/20/2013 Hives, rash and swelling Lisinopril 06/02/2023 COUGH Nickel Rash 12/03/2020 documented as of this encounter (statuses as of 11/08/2023) Medications Medication Sig Dispensed Refills Start Date End Date Status Spiriva Respimat 2.5 MCG/ACT Inhalation Aerosol Solution (Tiotropium [place] Monohydrate) Inhale 2 Puffs by mouth daily. [...] as of this encounter (statuses as of 11/08/2023) Active Problems Problem Noted Date Diagnosed Date [...] as of this encounter (statuses as of 11/08/2023) Resolved Problems Problem Noted Date Diagnosed Date Resolved Date Food insecurity 04/19/2021 08/26/2021 Overview: Per [facility] Protocol Asthma exacerbation 03/30/2015 07/07/20 17 Moderate persistent asthma 11/09/2014 0 03/30/2015 Overview: PFT Pneumonitis 07/24/2014 01/06/2022 Asthma exacerbation 07/24/2014 03/30/20 15 documented as of this encounter (statuses as of 11/08/2023) Immunizations Name Administration Dates Next Due PPD [...] encounter Miscellaneous Notes * Telephone Encounter - Aracely Ramirez OSA - 11/08/2023 3:27 PM EST [facility] [place] requesting 10/31/23 Abd/Pelvis CT imaging. [place] Authorization to Release form on file. Imaging pushed through PACS to [facility] [place] Life Image account per specific request. * Telephone Encounter - Jenna Yanes CRNP - 11/08/2023 3:24 PM EST Received call from nurse at Dr. Nathan's office. They have not yet received the pushed images through PACS. Do they need to be pushed again? * Telephone Encounter - Yady Puga RN - 11/08/2023 12:[address] Erickson office ([phone]) and spoke to Yadi. Advised that we had images of CT scan pushed- she asked that we also fax report to [phone] (faxed after call). Advised her that Jenna [...] Ramirez OSA - 11/08/2023 11:13 AM EST [place] Authorization to Release form on file. 10/31/23 Abd/Pelvis CT Images pushed through PACS to [facility] All Sites Power Share. * Telephone Encounter - Bear Momin RN - 11/07/2023 2:42 PM EST Radiology- can we please push patients recent CT A/P images to [facility]. Thank you. * Telephone Encounter - Jenna [...] etiology. Patient follows with Dr. Nathan with [facility] Neurosurgery. Can we please push images for his review?Patient to have revision L3-4 decompression and fusion in the near future. Patient also had CT L spine within [facility] system in September. Based on above imaging does he feel another lumbar spine MRI is needed prior to surgery? If so would he want this MRI done at [facility] or would he prefer to be doneat [facility]? Thank you! documented in this encounter Plan of Treatment Upcoming Encounters Date Type Department Care Team (Latest Contact Info) Description 01/18/2024 1:30 PM EDT Hospital Encounter ENDO [facility], Endoscopy Room [facility] [address] [place] [address] Erika Rios DO [address] [place] [address] 01/18/2024 1:30 PM EDT - 01/18/2024 2:30 PM EDT Surgery ENDO [facility], Endoscopy Room [facility] [address] [place] [phone] Erika Rios DO [address] [place] [address] COLONOSCOPY FLEXIBLE PROXIMAL DIAGNOSTIC 01/23/2024 1:00 PM EDT Imaging Radiology [facility] [address] [facility] [address] [facility] [place] [address] 02/06/2024 4:30 PM EDT Laboratory Laboratory, [facility] 132 [facility] [place] [phone] [facility] 132 [facility] [place] [address] 02/12/2024 3:30 PM EDT Office Visit Hematology/Oncolog y [facility] 200 [facility] [place] [address] Jenna Yanes CRNP 400 [facility] [place] [address] 03/15/2024 4:00 PM EDT Office Visit Nephrology, [facility] 200 [facility] [place] [address] Chon Whitley MD 200 [facility] [place] [address] Scheduled Procedures Name Priority Associated Diagnoses Date/Ti [...] this encounter Medical Devices Implanted Type Area Airdox Fitter Device Identifier Shelf Expiration Date Model / Serial / Lot Vitoss Bimodal Foam Pack 10cc - [id number] Implanted:Qty : 2 on 10/11/2017 by Rosendo Nathan, DO at [facility] N/A: Spine Lumbar SARAH : SPINE 03/08/2019 [id number] / / [id number] Vitoss Bimodal Foam Pack 10cc - [id number] Implanted:Qty : 1 on 10/11/2017 by Rosendo Nathan, DO at [facility] N/A: Spine Lumbar SARAH : SPINE 02/05/2019 [id number] / / [id number] Screw Audie Bina 3 Ti Set - [id number] Implanted:Qty : 4 on 10/11/2017 by Rosendo Nathan, DO at [facility] N/A: Spine Lumbar SARAH : SPINE [id number] / / 6.5 X 50 Mm Serrate Screws Implanted:Qty : 2 on 10/11/2017 by Rosendo Nathan, at [facility] N/A: Spine Lumbar SARAH : SPINE [id number] / / 6.5 X 45 Mm Serrate Screw Implanted:Qty : 2 on 10/11/2017 by Rosendo Nathan DO at [facility] N/A: Spine Lumbar SARAH : SPINE [id number] / / 9 X 23x 6 - 9mm Pl Implanted:Qty : 1 on 10/11/2017 by Rosendo Nathan DO at [facility] N/A: Spine Lumbar SARAH : SPINE [id number] / / Shashank Bina 3 Ti 6x40mm - [id number] Implanted:Qty : 1 on 10/11/2017 by Rosendo Nathan DO at [facility] N/A: Spine Lumbar SARAH : SPINE [id number] / / Shashank Bina 3 Ti 6x45mm - [id number] Implanted:Qty : 1 on 10/11/2017 by Rosendo Nathan DO at [facility] N/A: Spine Lumbar SARAH : SPINE [id number] / / documented as of this encounter Advance Directives Latest Code Status on File Code Status Date Activated Date Inactivated Comments Full Code 10/11/2017 9:23 AM 10/13/2017 10:36 PM This order reflects the patients wishes and were consensually agreed upon. Care Teams Registered Midwife Relationship Specialty Start Date End Date Myesha Cavanaugh MD [address] [facility] [place] [address] PCP - General Family Medicine 02/18/22 documented as of this encounter
--- OUTSIDE RECORDS SUMMARY | 2024-04-17 01:49 | External Medical Summary | Summary of Care ---
Author Name Unknown Organization [facility] Address [address] [facility] [address] Phone [phone] Care Team Providers Care Acid Supervisor Name Role Phone Myesha Cavanaugh MD Primary Care Provid er Reason for Visit * Reason Onset Date Comments Information 11/07/2023 Encounter Details Date Type Department Care Team (Late st Contact Info) Description 11/07/2023 Telephone Hematology/Oncology [facility] [place] [address] [facility] [address] Jenna Yanes CRNP [address] [place] [address] Information Allergies Active Allergy Reactions Criticality Noted Date Comments Amoxicillin 01/05/2017 thrush Latex 06/20/2013 Hives, rash and swelling Lisinopril 06/02/2023 COUGH Nickel Rash 12/03/2020 documented as of this encounter (statuses as of 11/08/2023) Medications Medication Sig Dispensed Refills Start Date End Date Status Spiriva Respimat 2.5 MCG/ACT Inhalation Aerosol Solution (Tiotropium [place] Monohydrate) Inhale 2 Puffs by mouth daily. [...] encounter Miscellaneous Notes * Telephone Encounter - Yady Puga RN - 11/08/2023 12:[address] Erickson office ([phone]) and spoke to Yadi. Advised that we had images of CT scan pushed- she asked that we also fax report to [phone] (faxed after call). Advised her that Jenna wanted to see if Dr Nathan could review scan results to see if he recommends a follow up MRI, and if so, does he want to order it or does he want her to. Yadi states thatshe will give this message to Dr Nathan, Dr Nathan will likely want to talk to Jenna directlyabout this. Provided contact information. * Telephone Encounter - Aracely Ramirez OSA - 11/08/2023 11:13 AM EST [place] Authorization to Release form on file. 10/31/23 Abd/Pelvis CT Images pushed through PACS to [facility] All Sites Power Share. * Telephone Encounter - Bear Momin RN - 11/07/2023 2:42 PM EST Radiology- can we please push patients recent CT A/P images to [facility]. Thank you. * Telephone Encounter [...] etiology. Patient follows with Dr. Nathan with [facility] Neurosurgery. Can we please push images for his review?Patient to have revision L3-4 decompression and fusion in the near future. Patient also had CT L spine within [facility] system in September. Based on above imaging does he feel another lumbar spine MRI is needed prior to surgery? If so would he want this MRI done at [facility] or would he prefer to be doneat [facility]? Thank you! documented in this encounter Plan of Treatment Upcoming Encounters Date Type Department Care Team (Latest Contact Info) Description 01/18/2024 1:30 PM EDT Hospital Encounter ENDO [facility], Endoscopy Room [facility] [address] [place] [phone] Erika Rios DO [address] [place] [address] 01/18/2024 1:30 PM EDT - 01/18/2024 2:30 PM EDT Surgery ENDO [facility], Endoscopy Room [facility] [address] [place] [phone] Eriak Rios DO [address] [place] [address] COLONOSCOPY FLEXIBLE PROXIMAL DIAGNOSTIC 01/23/2024 1:00 PM EDT Imaging Radiology [facility] 1st [facility] [address] [place] [address] 02/06/2024 4:30 PM EDT Laboratory Laboratory, [facility] [address] [place] [phone] [facility] [address] [place] [address] 02/12/2024 3:30 PM EDT Office Visit Hematology/Oncolog y [facility] [place] [address] [facility] [place] [address] Jenna Yanes CRNP [address] [facility] [place] [address] 03/15/2024 4:00 PM EDT Office Visit Nephrology, [facility] [address] [facility] [place] [address] Chon Whitley MD [address] [facility] [place] [address] Scheduled Procedures Name Priority Associated Diagnoses Date/Ti [...] this encounter Medical Devices Implanted Type Area Personnel Consultant Device Identifier Shelf Expiration Date Model / Serial / Lot Vitoss Bimodal Foam Pack 10cc - [id number] Implanted:Qty : 2 on 10/11/2017 by Rosendo Nathan DO at [facility] N/A: Spine Lumbar SARAH : SPINE 03/08/201921010931-4167 / / [id number] Vitoss Bimodal Foam Pack 10cc - [id number] Implanted:Qty : 1 on 10/11/2017 by Rosendo Nathan DO at [facility] N/A: Spine Lumbar SARAH : SPINE 02/05/2019 / / [id number] Screw Audie Bina 3 Ti Set - [id number] Implanted:Qty : 4 on 10/11/2017 by Rosendo Nathan DO at [facility] N/A: Spine Lumbar SARAH : SPINE [id number] / / 6.5 X 50 Mm Serrate Screws Implanted:Qty : 2 on 10/11/2017 by Rosendo Nathan DO at [facility] N/A: Spine Lumbar SARAH : SPINE [id number] / / 6.5 X 45 Mm Serrate Screw Implanted:Qty : 2 on 10/11/2017 by Rosendo Nathan DO at [facility] N/A: Spine Lumbar SARAH : SPINE [id number] / / 9 X 23x 6 - 9mm Pl Implanted:Qty : 1 on 10/11/2017 by Rosendo Nathan, DO at [facility] N/A: Spine Lumbar SARAH : SPINE [id number] / / Shashank Bina 3 Ti 6x40mm - [id number] Implanted:Qty : 1 on 10/11/2017 by Rosendo Nathan, DO at [facility] N/A: Spine Lumbar SARAH : SPINE [id number] / / Shashank Bina 3 Ti 6x45mm - [id number] Implanted:Qty : 1 on 10/11/2017 by Rosendo Nathan, DO at [facility] N/A: Spine Lumbar SARAH : SPINE [id number] / / documented as of this encounter Advance Directives Latest Code Status on File Code Status Date Activated Date Inactivated Comments Full Code 10/11/2017 9:23 AM 10/13/2017 10:36 PM This order reflects the patients wishes and were consensually agreed upon. Care Teams Acid Supervisor Relationship Specialty Start Date End Date Myesha Cavanaugh MD [address] [facility] [place] [address] PCP - General Family Medicine 02/18/22 documented as of this encounter
--- OUTSIDE RECORDS SUMMARY | 2024-04-17 01:49 | External Medical Summary | Summary of Care ---
Author Name Unknown Organization [facility] Address [address] [facility] [address] Phone [phone] Care Team Providers Care Oil Change Technician Name Role Phone Myesha Cavanaugh MD Primary Care Provid er Reason for Visit * Reason Onset Date Comments Appointment 11/07/2023 Encounter Details Date Type Department Care Team (Late st Contact Info) Description 11/07/2023 Telephone Hematology/Oncology [facility] [place] [address] [facility] [address] Jenna Yanes CRNP 400 [place] [address] Appointment Allergies Active Allergy Reactions Criticality Noted Date Comments Amoxicillin 01/05/2017 thrush Latex 06/20/2013 Hives, rash and swelling Lisinopril 06/02/2023 COUGH Nickel Rash 12/03/2020 documented as of this encounter (statuses as of 11/09/2023) Medications Medication Sig Dispensed Refills Start Date End Date Status Spiriva Respimat 2.5 MCG/ACT Inhalation Aerosol Solution (Tiotropium [place] Monohydrate) Inhale 2 Puffs by mouth daily. [...] 01/18/2024 1:30 PM EDT Hospital Encounter ENDO [facility], Endoscopy Room [facility] [address] [place] [phone] Erika Rios DO [address] [place] [address] 01/18/2024 1:30 PM EDT - 01/18/2024 2:30 PM EDT Surgery ENDO [facility], Endoscopy Room [facility] [address] [place] [phone] Erika Rios DO [address] [place] [address] COLONOSCOPY FLEXIBLE PROXIMAL DIAGNOSTIC 01/23/2024 1:00 PM EDT Imaging Radiology [facility] 1st [facility] [address] [place] [address] 02/06/2024 4:30 PM EDT Laboratory Laboratory, [facility] [address] [place] [phone] [facility] [address] [facility] [place] [address] 02/12/2024 3:30 PM EDT Office Visit Hematology/Oncolog y [facility] [place] [address] [place] [phone] Jenna Yanes CRNP [address] [place] [address] [place] [address] 03/15/2024 4:00 PM EDT Office Visit Nephrology, [facility] [address] [place] [address] Chon Whitley MD 200 [facility] [place] [address] Scheduled Orders Name Type Priority Associated Diagnoses [...] this encounter Medical Devices Implanted Type Area Customer Orders Clerk Device Identifier Shelf Expiration Date Model / Serial / Lot Vitoss Bimodal Foam Pack 10cc - [id number] Implanted:Qty : 2 on 10/11/2017 by Rosendo Nathan DO at [facility] N/A: Spine Lumbar SARAH : SPINE 03/08/2019 / / [id number] Vitoss Bimodal Foam Pack 10cc - [id number] Implanted:Qty : 1 on 10/11/2017 by Rosendo Nathan DO at [facility] N/A: Spine Lumbar SARAH : SPINE 02/05/2019 / / [id number] Screw Audie Bina 3 Ti Set - [id number] Implanted:Qty : 4 on 10/11/2017 by Rosendo Nathan DO at [facility] N/A: Spine Lumbar SARAH : SPINE [id number] / / 6.5 X 50 Mm Serrate Screws Implanted:Qty : 2 on 10/11/2017 by Rosendo Nathan DO at [facility] N/A: Spine Lumbar SARAH : SPINE [id number] / / 6.5 X 45 Mm Serrate Screw Implanted:Qty : 2 on 10/11/2017 by Rosendo Nathan DO at [facility] N/A: Spine Lumbar SARAH : SPINE [id number] / / 9 X 23x 6 - 9mm Pl Implanted:Qty : 1 on 10/11/2017 by Rosendo Nathan DO at [facility] N/A: Spine Lumbar SARAH : SPINE [id number] / / Shashank Bina 3 Ti 6x40mm - [id number] Implanted:Qty : 1 on 10/11/2017 by Rosendo Nahtan, DO at [facility] N/A: Spine Lumbar SARAH : SPINE [id number] / / Shashank Bina 3 Ti 6x45mm - [id number] Implanted:Qty : 1 on 10/11/2017 by Rosendo Nathan, DO at [facility] N/A: Spine Lumbar SARAH : SPINE [id number] / / documented as of this encounter Visit Diagnoses Diagnosis Pancreatic cyst- Primary Cyst and pseudocyst of pancreas Nausea & vomiting Nausea with vomiting Unintentional weight loss Loss of weight documented in this encounter Advance Directives Latest Code Status on File Code Status Date Activated Date Inactivated Comments Full Code 10/11/2017 9:23 AM 10/13/2017 10:36 PM This order reflects the patients wishes and were consensually agreed upon. Care Teams Oil Change Technician Relationship Specialty Start Date End Date Myesha Cavanaugh MD [address] [place] [facility] [place] [address] PCP - General Family Medicine 02/18/22 documented as of this encounter
--- OUTSIDE RECORDS SUMMARY | 2024-04-17 01:49 | External Medical Summary | Summary of Care ---
Author Name Unknown Organization [facility] Address [address] [facility] [address] Phone [phone] Care Team Providers Care Senior It Recruiter Name Role Phone Myesha Cavanaugh MD Primary Care Provid er Reason for Visit * Reason Onset Date Comments Information 11/07/2023 Encounter Details Date Type Department Care Team (Late st Contact Info) Description 11/07/2023 Telephone Hematology/Oncology [facility] [place] [address] [facility] [address] Jenna Yanes CRNP 400 [place] [address] Information Allergies Active Allergy Reactions Criticality Noted Date Comments Amoxicillin 01/05/2017 thrush Latex 06/20/2013 Hives, rash and swelling Lisinopril 06/02/2023 COUGH Nickel Rash 12/03/2020 documented as of this encounter (statuses as of 11/08/2023) Medications Medication Sig Dispensed Refills Start Date End Date Status Spiriva Respimat 2.5 MCG/ACT Inhalation Aerosol Solution (Tiotropium [place] Monohydrate) Inhale 2 Puffs by mouth daily. [...] 12:[address] Erickson office ([phone]) and spoke to Yadi. Advised that we had images of CT scan pushed- she asked that we also fax report to [phone] (faxed after call). Advised her that Jenna [...] Ramirez OSA - 11/08/2023 11:13 AM EST [place] Authorization to Release form on file. 10/31/23 Abd/Pelvis CT Images pushed through PACS to [facility] All Sites Power Share. * Telephone Encounter - Bear Momin RN - 11/07/2023 2:42 PM EST Radiology- can we please push patients recent CT A/P images to [facility]. Thank you. * Telephone Encounter [...] etiology. Patient follows with Dr. Nathan with [facility] Neurosurgery. Can we please push images for his review?Patient to have revision L3-4 decompression and fusion in the near future. Patient also had CT L spine within [facility] system in September. Based on above imaging does he feel another lumbar spine MRI is needed prior to surgery? If so would he want this MRI done at [facility] or would he prefer to be doneat [facility]? Thank you! documented in this encounter Plan of Treatment Upcoming Encounters Date Type Department Care Team (Latest Contact Info) Description 01/18/2024 1:30 PM EDT Hospital Encounter ENDO [facility], Endoscopy Room [facility] [address] [place] [phone] Erika Rios, [address] [place] [address] 01/18/2024 1:30 PM EDT - 01/18/2024 2:30 PM EDT Surgery ENDO [facility], Endoscopy Room [facility] [address] [place] [phone] Erika Rios DO [address] [place] [address] COLONOSCOPY FLEXIBLE PROXIMAL DIAGNOSTIC 01/23/2024 1:00 PM EDT Imaging Radiology [address] [place] [address] 02/06/2024 4:30 PM EDT Laboratory Laboratory, [facility] [place] [address] [facility] [place], [place] [phone] Mare Wilkerson 132 [facility] [place] [address] 02/12/2024 3:30 PM EDT Office Visit Hematology/Oncolog y [facility] [place] 200 [facility] [place] [address] Jenna Yanes CRNP [address] [facility] [place] [address] 03/15/2024 4:00 PM EDT Office Visit Nephrology, [facility] 200 [facility] [place] [address] Chon Whitley MD [address] [facility] [place] [address] Scheduled Procedures Name Priority Associated Diagnoses Date/Ti [...] this encounter Medical Devices Implanted Type Area Meal Grinder Tender Device Identifier Shelf Expiration Date Model / Serial / Lot Vitoss Bimodal Foam Pack 10cc - [id number] Implanted:Qty : 2 on 10/11/2017 by Rosendo Nathan, DO at [facility] N/A: Spine Lumbar SARAH : SPINE 03/08/2019 / / [id number] Vitoss Bimodal Foam Pack 10cc - [id number] Implanted:Qty : 1 on 10/11/2017 by Rosendo Nathan, DO at [facility] N/A: Spine Lumbar SARAH : SPINE 02/05/2019 / / [id number] Screw Audie Bina 3 Ti Set - [id number] Implanted:Qty : 4 on 10/11/2017 by Rosendo Nathan, DO at [facility] N/A: Spine Lumbar SARAH : SPINE [id number] / / 6.5 X 50 Mm Serrate Screws Implanted:Qty : 2 on 10/11/2017 by Rosendo Nathan, DO at [facility] N/A: Spine Lumbar SARAH : SPINE [id number] / / 6.5 X 45 Mm Serrate Screw Implanted:Qty : 2 on 10/11/2017 by Rosendo Nathan DO at [facility] N/A: Spine Lumbar SARAH : SPINE [id number] / / 9 X 23x 6 - 9mm Pl Implanted:Qty : 1 on 10/11/2017 by Rosendo Nathan DO at [facility] N/A: Spine Lumbar SARAH : SPINE [id number] / / Shashank Bina 3 Ti 6x40mm - [id number] Implanted:Qty : 1 on 10/11/2017 by Rosendo Nathan DO at [facility] N/A: Spine Lumbar SARAH : SPINE [id number] / / Shashank Bina 3 Ti 6x45mm - [id number] Implanted:Qty : 1 on 10/11/2017 by Rosendo Nathan DO at [facility] N/A: Spine Lumbar SARAH : SPINE [id number] / / documented as of this encounter Advance Directives Latest Code Status on File Code Status Date Activated Date Inactivated Comments Full Code 10/11/2017 9:23 AM 10/13/2017 10:36 PM This order reflects the patients wishes and were consensually agreed upon. Care Teams Senior It Recruiter Relationship Specialty Start Date End Date Myesha Cavanaugh MD [address] [place] [address] PCP - General Family Medicine 02/18/22 documented as of this encounter
--- OUTSIDE RECORDS SUMMARY | 2024-04-17 01:49 | External Medical Summary | Summary of Care ---
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 Name Role Phone Myesha Cavanaugh MD Primary Care Provid er Reason for Referral * Evaluate & Treat - Unlimited Visits (Within 3 days (urgent)) - Pending Review Specialty Diagnoses / Procedures Referred By Jun garay Referred To Contact Gastroenterology Diagnoses Pancreatic cyst Weight loss, unintentional Jenna Yanes CRNP [address] [place] [id number] Referral ID Status Reason Start Date Expiration Date Visits Requested Visits Authorized [id number] Pending Review Specialty Services Required 11/06/[phone] Question Answer Referral Priority Within 3 days (urgent) Where should this appointment be scheduled? [facility] For what condition is the patient being referred? All Gastro Conditions Comments CT A/P 11/03/23: dilated pancreatic duct up to 6 mm at the head and 4.6 mm at the body, 1.3 cm cyst or cystic lesion at the pancreatic tail. Recommending MRCP Reason for Visit * Reason Comments Follow Up CT scan results Encounter Details Date Type Department Care Team (Late st Contact Info) Description 11/06/2023 3:00 PM EST Office Visit Hematology/Oncology [facility] [place] [address] [facility] [place] [address] Jenna Yanes CRNP [address] [place] [phone] MGUS (monoclonal gammopathy of unknown significance)*; Macrocytic anemia; Anemia due to folic acid deficiency, unspecified deficiency type; Elevated ferritin; Alcohol use disorder, severe, in early remission (HCC); Pancreatic cyst; Weight loss, unintentional Allergies Active Allergy Reactions Criticality Noted Date Comments Amoxicillin 01/05/2017 thrush Latex 06/20/2013 Hives, rash and swelling Lisinopril 06/02/2023 COUGH Nickel Rash 12/03/2020 documented as of this encounter (statuses as of 11/08/2023) Medications Medication Sig Dispensed Refills Start Date End Date Status Spiriva Respimat 2.5 MCG/ACT Inhalation Aerosol Solution (Tiotropium Newport Monohydrate) Inhale 2 Puffs by mouth daily. 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 20 Tablet 0 4 Active Omeprazole 40 MG Oral Capsule [...] the morning. 90 Tablet 3 4 Active Folic Acid 1 MG Oral TabletIndication s:Abnormal blood level of iron,Microcytic anemia,Low folic acid Take 2 Tablets by mouth in the morning. 30 Tablet 11 3 11/06/19 24 Discontinued HYDROcodone-Acet aminophen 7.5-325 MG Oral TabletIndication s:History [...] Sign Reading Time Taken Comments Blood Pressure 121/85 11/06/2023 3:06 PM EST Pulse 101 11/06/2023 3:06 PM EST Temperature 37.1 C (98.8 F) 11/06/2023 3:06 PM ES T Respiratory Rate 16 11/06/2023 3:06 PM EST Oxygen Saturation 97% 11/06/2023 3:06 PM EST Inhaled Oxygen Concentration - - Weight 48.9 kg (107 lb 11.2 oz) 11/06/2023 3:06 PM EST Height - - Body Mass Index 18.49 09/26/2023 12:14 PM EST documented in this encounter Functional Status Functional [...] as of this encounter Progress Notes * Jenna Yanes CRNP - 11/06/2023 3:00 PM EST Hematology/Oncology Outpatient Clinic note [facility] [address] [place] [address] Name: Poppy Adhikari Date: 11/06/2023 CHIEF COMPLAINT: Poppy Adhikari is a 53 year old female patient of Dr. Cardona Becky here today for f/u visit today. From Patient chart confirmed with patient. HEMATOLOGY/ONCOLOGY DIAGNOSIS: IgM Kappy Monoclonal Gammopathy Macrocytic anemia Folic acid deficiency Elevated ferritin Alcohol use CURRENT TREATMENT: Folic acid 1 mg daily HISTORY OF PRESENT ILLNESS: Patient with PMH as listed below. History of alcoholism. Has been drinking about a six pack a day for about 20 years. Was recently sent to the ED from pain management clinic on 12/08/22 with complaints of confusion andfacial numbness. CTA head and neck and CT brain w/o contrast negative for stroke or mass. Has been referred to neurology. Chronic mild macrocytic anemia present for approximately the last year. Hgb in the 11 range. Noted to have significant folic acid deficiency. Has been taking folic acid 1 mg daily for the last month.Chart review reveals a slightly elevated reticulocyte count, ferritin and TSAT elevated, normal TSH. Has not taken an oral iron supplement for many years. Patient continues to have left sided facial numbness off and on. Also feels that her left arm is numb off and on as well as significantly weak. If she is carrying something in her left arm cannot lift it above shoulder stefanie. Left hand grasp is normal. Denies any pain in left side of body. Denies headaches or blurry vision. Does get SOB at times but this is due to her asthma. Denies reflux, nausea, abdominal pain or bloating. Denies changes in her bowel habits, melena or hematochezia. Appetite is good. Has lost about 10 pounds over the last month. This is unintentional. Mammogram is UTD. Nextmammogram is scheduled for april. Is a "light" smoker. Colonoscopy scheduled for April. Denies fevers, chills or night sweats. Denies concerning lumps or bumps. Has chronic lower back pain for which she follows with pain management. Component Latest Ref Rng 09/17/2020 05/11/2022 11/30/2022 12/20/2022 WBC 4.00 - 10.80 K/uL 7.42 8.63 7.35 7.84 RBC 3.85 - 5.15 M/uL 3.72 (L) 3.25 3.35 3.35 HGB 12.0 - 15.3 g/dL 12.3 11.0 (L) 11.4 (L) 11.5 (L) HCT 36.0 - 45.2 % 35.5 (L) 31.1 (L) 33.5 (L) 33.4 (L) MCV 81.5 - 97.5 fL 95.4 95.7 100.0 99.7 MCH 27.0 - 34.0 pg 33.1 33.8 34.0 34.3 MCHC 32.0 - 36.0 g/dL 34.6 35.4 34.0 34.4 RDW 11.5 - 15.5 % 12.2 13.6 12.1 12.8 PLT 140 - 400 K/uL 238 286 214 233 MPV 6.6 - 11.1 fL 11.0 10.8 10.6 11.0 nRBCs <=0 /100 WBCs 0 0 0 No known family history of liver disease or hemochromatosis HISTORY OF PRESENT ILLNESS: Poppy Adhikari is a 53 year old female with a history as outlined above. Currently here for f/u visit today. Patient not aware she was to be taking folic acid. Has not taken in several months. Continues to lose weight. No longer having facial numbness or left arm numbness/weakness. Colonoscopy scheduled for January with 2 day prep. Is now taking no more than 3 grams of tylenol daily. Past Medical History: Diagnosis Date Allergic rhinitis Arthritis Asthma Chronic back pain Depression Fibromyalgia Moderate persistent asthma 11/2014 PFT Past Surgical History: Procedure Laterality Date ALLOGRAFT, MORSELIZED, FOR SPINE SURGERY N/A 10/11/2017 ALLOGRAFT FOR SPINE SURGERY MORSELIZED performed by Rosendo Nathan DO at OR [facility] AUTOGRAFT, SPINE SURGERY, LOCAL N/A 10/11/2017 OBTAIN AUTOGRAFT FOR SPINE SURGERY LOCAL performed by Rosendo Nathan DO at OR [facility] COLONOSCOPY, DIAGNOSTIC (RECTUM) 09/27/2023 COLONOSCOPY FLEXIBLE PROXIMAL DIAGNOSTIC performed by Erika Rios DO at ENDOSCOPY [facility] EGD, FLEXIBLE, DIAGNOSTIC 12/08/2020 hiatal hernia / ESOPHAGOGASTRODUODENOSCOPY (EGD), FLEXIBLE, TRANSORAL, DIAGNOSTIC performed by Omid Snell MD at ENDOSCOPY [facility] EGD, FLEXIBLE, DIAGNOSTIC 09/27/2023 ESOPHAGOGASTRODUODENOSCOPY (EGD), FLEXIBLE, TRANSORAL, DIAGNOSTIC performed by Erika Rios DO at ENDOSCOPY [facility] EGD, W/ENDOSCOPIC US 12/08/2020 fatty liver / ESOPHAGOGASTRODUODENOSCOPY (EGD), FLEXIBLE, TRANSORAL, ENDOSCOPIC ULTRASOUND performed by Omid Snell MD at ENDOSCOPY [facility] INFORMATION Left 2016 left wrist surgery tendonitis LUMBAR SPINE FUSION, POSTEROLATERAL N/A 10/11/2017 L4-5 Decompression and instrumented Fusion. Allo-autograft, Screw/shashank construct, Possible interbodyfusion device. performed by Rosendo Nathan DO at OR [facility] REMOVAL OF TONSILS, UNDER AGE 12 1974 SACROILIAC JOINT INJECT W/GUIDANCE Bilateral 07/25/2022 INJECTION SACROILIAC JOINT performed by Kash Whitfield DO at OR [facility] SACROILIAC JOINT INJECT W/GUIDANCE 12/08/2022 INJECTION SACROILIAC JOINT performed by Kash Whitfield DO at OR [facility] SACROILIAC JOINT INJECT W/GUIDANCE Bilateral 01/26/2023 INJECTION SACROILIAC JOINT performed by Kash Whitfield DO at OR [facility] SACROILIAC JOINT INJECT W/GUIDANCE 06/14/2023 INJECTION SACROILIAC JOINT performed by Michael Enriquez DO at [facility] SPINE FIXATION, POSTERIOR, (RUELAS) N/A 10/11/2017 POSTERIOR SPINE INSTRUMENTATION NON SEGMENTAL performed by Rosendo Nathan DO at OR [facility] Social History Socioeconomic History Marital status: Spouse name: Tim Number of children: 1 Years of education: Not on file Highest education level: Not on file Occupational History Occupation: No [employer] Employer: [employer] Comment: [place] Tobacco Use Smoking status: Former Current packs/day: [...] on file Housing Stability: Not on file Review of patient's allergies indicates: Allergen Reactions Amoxicillin thrush Latex Hives, rash and swelling Lisinopril COUGH Nickel Rash Current Outpatient Medications Medication Sig Dispense Refill Spiriva Respimat 2.5 MCG/ACT Inhalation Aerosol Solution (Tiotropium Newport Monohydrate) Inhale 2 Puffs by mouth daily. (Patient not taking: Reported on 09/26/2023) 12 g 3 Albuterol Sulfate HFA 108 (90 Base) MCG/ACT Inhalation Aerosol Solution INHALE 2 PUFFS BY MOUTH EVERY 4 HOURS NEEDED FOR WHEEZING (Patient not taking: Reported on 09/26/2023) 36 g 0 DULoxetine HCl 60 MG Oral Capsule Delayed Release Particles (Cymbalta) Take 1 Capsule by mouth in the morning. Do not cut, crush or chew. 90 Capsule 3 Folic Acid 1 MG Oral Tablet Take 2 Tablets by mouth in the morning. (Patient not taking: Reported on 09/01/2023) 30 Tablet 11 Mometasone Furo-Formoterol Fum 200-5 MCG/ACT Inhalation Aerosol (Dulera) Inhale 2 Puffs by mouth inthe morning and 2 Puffs before bedtime. 13 g 11 hydrOXYzine HCl 50 MG Oral Tablet Take 1 Tablet by mouth every 6 hours as needed for Itching or Anxiety. 60 Tablet 5 Meloxicam 15 MG Oral Tablet Take 1 Tablet by mouth daily. Take 1-2 tabs daily for pain. 90 Tablet 1 Compressor Nebulizer Inhale via nebulizer. Use as directed. 1 Each 1 Benzonatate 100 MG Oral Capsule Take 1 Capsule by mouth 3 times a day as needed for Cough (may makeyou sleepy). (Patient not taking: Reported on 06/14/2023) 15 Capsule 0 amLODIPine Besylate 5 MG Oral Tablet (Norvasc) Take 1 Tablet by mouth in the morning. 90 Tablet 3 Albuterol Sulfate (2.5 MG/3ML) 0.083% Inhalation Nebulization Solution (Proventil) Inhale 1 Vial via nebulizer every 6 hours as needed for Wheezing. J45.40 J44.9 (Patient not taking: Reported on 09/26/2023) 360 mL 11 Azithromycin 250 MG Oral Tablet (Zithromax Z-Nabil) Take two tablets by mouth on first day, then 1 tablet daily until gone (Patient not taking: Reported on 09/26/2023) 6 Tablet 0 traZODone HCl 50 MG Oral Tablet (Desyrel) TAKE 1 TABLET BY MOUTH AT BEDTIME 90 Tablet 1 Montelukast Sodium 10 MG Oral Tablet (Singulair) Take 1 Tablet by mouth at bedtime. (Patient not taking: Reported on 09/26/2023) 90 Tablet 3 HYDROcodone-Acetaminophen 7.5-325 MG Oral Tablet Take 1 Tablet by mouth every 8 hours as needed forPain, Severe. Do not start before September 22, 2023. 90 Tablet 0 Pregabalin 150 MG Oral Capsule (Lyrica) Take 1 Capsule by mouth in the morning and 1 Capsule beforebedtime. 60 Capsule 2 Loratadine 10 MG Oral Tablet (Claritin) Take 1 tablet by mouth once daily 90 Tablet 1 Ondansetron HCl 4 MG Oral Tablet (Zofran) Take 1 Tablet by mouth every 8 hours as needed for Nausea. 20 Tablet 0 Omeprazole 40 MG Oral Capsule Delayed Release (PriLOSEC) Take 1 Capsule by mouth in the morning and1 Capsule before bedtime. 60 Capsule 3 LORazepam 0.5 MG Oral Tablet (Ativan) TAKE 1 TABLET BY MOUTH ONCE DAILY NEEDED FOR ANXIETY 30 Tablet 0 FLUoxetine HCl 40 MG Oral Capsule (PROzac) Take 1 capsule by mouth in the morning 90 Capsule 1 No current facility-administered medications for this visit. REVIEW OF SYSTEMS: See HPI - otherwise negative OBJECTIVE: Filed Vitals: 11/06/23 1506 BP: 121/85 Pulse: 101 Resp: 16 Temp: 37.1 C (98.8 F) TempSrc: Tympanic SpO2: 97% Weight: 48.9 kg (107 lb 11.2 oz) Wt Readings from Last 5 Encounters: 11/06/23 48.9 kg (107 lb 11.2 oz) 09/26/23 48.1 kg (106 lb) 09/12/23 48.1 kg (106 lb) 09/01/23 51.9 kg (114 lb 6.4 oz) 05/02/23 55.7 kg (122 lb 11.2 oz) PHYSICAL EXAM: ECOG: Performance Status 1 = 80-90% Symptoms but nearly ambulatory General Appearance: No acute distress Lymph Nodes: Normal - No palpable lymph nodes in the neck or supraclavicular areas Lungs/Thorax: Normal - Clear to auscultation Heart: Normal - Regular rate and rhythm, normal S1, S2, no appreciable murmurs Pulses/Extremities: Normal - 2+ throughout and symmetrical, no edema Abdomen: Normal - Soft, nontender, bowel sounds present, no appreciable hepatosplenomegaly, no palpable masses Neurologic: alert and oriented x 4, ambulates with cane, unsteady gait LABS: Results for orders placed or performed in visit on 10/31/23 COMPREHENSIVE METABOLIC PANEL Result Value Ref Range BUN 14 6 - 20 mg/dL Creatinine 0.9 0.5 - 1.0 mg/dL Estimated Glomerular Filtration Rate 79 >=60 mL/min Sodium 138 135 - 146 mmol/L Potassium 4.6 3.5 - 5.1 mmol/L Chloride 103 98 - 107 mmol/L CO2 21 (L) 22 - 32 mmol/L Anion Gap 14 7 - 15 mmol/L Glucose 94 70 - 120 mg/dL Albumin 3.6 (L) 3.8 - 5.0 g/dL AST 35 10 - 35 U/L Alkaline Phosphatase 195 (H) 35 - 130 U/L Bilirubin, Total 0.5 <=1.2 mg/dL Calcium 9.4 8.4 - 10.2 mg/dL Protein 6.8 6.0 - 8.3 g/dL ALT 43 (H) 10 - 35 U/L CBC Result Value Ref Range WBC 7.05 4.00 - 10.80 K/uL RBC 3.31 3.85 - 5.15 M/uL HGB 11.4 (L) 12.0 - 15.3 g/dL HCT 31.3 (L) 36.0 - 45.2 % MCV 94.6 81.5 - 97.5 fL MCH 34.4 27.0 - 34.0 pg MCHC 36.4 32.0 - 36.0 g/dL RDW 14.2 11.5 - 15.5 % PLT 438 (H) 140 - 400 K/uL MPV 9.5 6.6 - 11.1 fL DIFFERENTIAL, AUTOMATED Result Value Ref Range WBC 7.05 4.00 - 10.80 K/uL Neutrophils % 61.2 40.0 - 75.0 % Lymphocytes % 26.0 18.0 - 42.0 % Monocytes % 8.8 1.0 - 11.0 % Eosinophils % 3.3 0.0 - 6.0 % Basophils % 0.7 0.0 - 2.0 % Absolute Neutrophils 4.32 1.80 - 7.70 K/uL Absolute Lymphocytes 1.83 1.00 - 4.80 K/ul Absolute Monocytes 0.62 0.00 - 1.10 K/uL Absolute Eosinophils 0.23 0.00 - 0.70 K/uL Absolute Basophils 0.05 0.00 - 0.20 K/uL IMPRESSION/PLAN: IgM Kappy Monoclonal Gammopathy Macrocytic anemia Folic acid deficiency Elevated ferritin Alcohol use Pancreatic cyst Weight loss Chronic mild macrocytic anemia present for approximately the last year. Hgb in the 11 range. Intermittently drops into the 9 range but then quickly recovers to baseline seemingly without intervention. Noted to have significant folic acid deficiency. Was initially taking folic acid 1 mg daily but was not aware she was to continue so has not taken for several months. Lab results reviewed: Hgb stable at 11.4 - now with normocytic indices Ferritin significantly elevated at 1,667, TSAT WNL Myeloma labs stable. Viscosity WNL. Colonoscopy scheduled for January Had asked patient to avoid iron. Unfortunately was given two IV iron infusions in May which accounts for the significant increase in ferritin. Will continue to monitor for decline off of iron. During work up in 2020 for elevated LFTs patient had liver biopsy completed that was significant for only mild fatty liver disease. No iron deposition reported. Again strongly encouraged patient to abstain from alcohol Resume taking folic acid 1 mg daily. New prescription sent. CT A/P 10/31/23 reviewed: No lymphadenopathy or splenomegaly present. Lesion seen involving L3 and L4 vertebral bodies extending across the disc space. New since MRI completed in June. Recommending repeat MRI. Will forward imaging to neurosurgeon at [facility] for furtherrecommendations. Also noted pancreatic duct dilation and 1.3 cm cystic lesion at the pancreatic tail. Recommending MRCP. GI referral placed. Patient to have revision L3-4 decompression and fusion in the near future. No concerns from Hematology standpoint with Hgb in the 11 range. RTC in three months with provider with cbc/diff, cmp, iron screen, ferritin, vitamin b12 and folic acid [place] documented in this encounter Nursing Notes * Farrah Rosas LPN - 11/06/2023 3:07 PM EST Patient identifed by name and birthdate Do you have any concerns about pain management for today's visit? Yes. Patient instructed to discuss pain concerns with provider during the visit today Living Will or Advance Directive for Health Care as noted on the problem list. [facility] is a way you can talk to your provider on line through e-mail. Would you like to sign up? I can activate it for you? ALREADY ACTIVE Filed Vitals: 11/06/23 1506 BP: 121/85 Pulse: 101 Resp: 16 Temp: 37.1 C (98.8 F) TempSrc: Tympanic SpO2: 97% Weight: 48.9 kg (107 lb 11.2 oz) Patient was instructed to not get up on the exam table/exam chair until directed and assisted by their provider; patient is to remain seated in the chair/ wheelchair/ exam table/ exam chair for fall prevention and safety reasons. Patient is aware to have assistance to step down off exam table/exam chair with personnel. Patient voiced full comprehension of instructions. documented in this encounter Plan of Treatment Upcoming Encounters Date Type Department Care Team (Latest Contact Info) Description 01/18/2024 1:30 PM EDT Hospital Encounter [facility] [address] [facility] [place] [phone] Erika Rios, DO [address] [place] [address] 01/18/2024 1:30 PM EDT - 01/18/2024 2:30 PM EDT Surgery ENDO [facility], Endoscopy Room [facility] [address] [place] [phone] Erika Rios, DO [address] [place] [address] COLONOSCOPY FLEXIBLE PROXIMAL DIAGNOSTIC 01/23/2024 1:00 PM EDT Imaging Radiology [facility] [facility] [address] [facility] [place] [address] 02/06/2024 4:30 PM EDT Laboratory Laboratory, [facility] [address] [facility] [place] [id number] [facility] [address] [facility] [place] [address] 02/12/2024 3:30 PM EDT Office Visit Hematology/Oncolog y [facility] [address] [facility] [place] [phone] Jenna Yanes CRNP [address] [facility] [place] [address] 03/15/2024 4:00 PM EDT Office Visit Nephrology, [facility] [address] [facility] [place] [address] Chon Whitley MD [address] [facility] [place] [address] Scheduled Orders Name Type Priority Associated Diagnoses Orde r Schedule CBC WITH WBC DIFFERENTIAL Lab STAT Anemia due to folic acid deficiency, unspecified deficiency type Alcohol use disorder, severe, in early remission (HCC) MGUS (monoclonal gammopathy of unknown significance) Macrocytic anemia Elevated ferritin Expected: 02/05/2024 (Approximate), Expires: 05/06/2024 COMPREHENSIVE METABOLIC PANEL Lab STAT Anemia due to folic acid deficiency, unspecified deficiency type Alcohol use disorder, severe, in early remission (HCC) MGUS (monoclonal gammopathy of unknown significance) Macrocytic anemia Elevated ferritin Expected: 02/05/2024 (Approximate), Expires: 05/06/2024 IRON SCREEN, INCLUDING TIBC Lab STAT Anemia due to folic acid deficiency, unspecified deficiency type Alcohol use disorder, severe, in early remission (HCC) MGUS (monoclonal gammopathy of unknown significance) Macrocytic anemia Elevated ferritin Expected: 02/05/2024 (Approximate), Expires: 05/06/2024 FERRITIN Lab STAT Anemia due to folic acid deficiency, unspecified deficiency type Alcohol use disorder, severe, in early remission (HCC) MGUS (monoclonal gammopathy of unknown significance) Macrocytic anemia Elevated ferritin Expected: 02/05/2024 (Approximate), Expires: 05/06/2024 VITAMIN B12 Lab STAT Anemia due to folic acid deficiency, unspecified deficiency type Alcohol use disorder, severe, in early remission (HCC) MGUS (monoclonal gammopathy of unknown significance) Macrocytic anemia Elevated ferritin Expected: 02/05/2024 (Approximate), Expires: 05/06/2024 FOLIC ACID Lab STAT Anemia due to folic acid deficiency, unspecified deficiency type Alcohol use disorder, severe, in early remission (HCC) MGUS (monoclonal gammopathy of unknown significance) Macrocytic anemia Elevated ferritin Expected: 02/05/2024 (Approximate), Expires: 05/06/2024 Scheduled Procedures Name Priority Associated Diagnoses Date/Ti id COLONOSCOPY FLEXIBLE PROXIMA L DIAGNOSTIC Nausea & vomiting Unintentional weight loss 01/18/2024 1:30 PM EDT ESOPHAGOGASTRODUODENOSCOPY ( EGD), FLEXIBLE, TRANSORAL, DIAGNOSTIC Nausea & vomiting Unintentional weight loss 01/18/2024 1:30 PM EDT Scheduled Referrals Name Type Priority Associated Diagnoses Orde r Schedule ADULT GASTROENTEROLOGY REFERRAL OP Referral Within 3 days (urgent) Pancreatic cyst Weight loss, unintentional Ordered: 11/06/2023 Health Maintenance Due Date Last Done Comments [...] this encounter Medical Devices Implanted Type Area Hollow Handle Knife Assembler Device Identifier Shelf Expiration Date Model / Serial / Lot Vitoss Bimodal Foam Pack 10cc - [id number] Implanted:Qty : 2 on 10/11/2017 by Rosendo Nathan, at [facility] N/A: Spine Lumbar SARAH : SPINE 03/08/2019 [id number] / / [id number] Vitoss Bimodal Foam Pack 10cc - [id number] Implanted:Qty : 1 on 10/11/2017 by Rosendo Nathan DO at [facility] N/A: Spine Lumbar SARAH : SPINE 02/05/2019 [id number] / / [id number] Screw Audie Bina 3 Ti Set - [id number] Implanted:Qty : 4 on 10/11/2017 by Rosendo Nathan DO at [facility] N/A: Spine Lumbar SARAH : SPINE [id number] / / 6.5 X 50 Mm Serrate Screws Implanted:Qty : 2 on 10/11/2017 by Rosendo Nathan DO at [facility] N/A: Spine Lumbar SARAH : SPINE [id number] / / 6.5 X 45 Mm Serrate Screw Implanted:Qty : 2 on 10/11/2017 by Rosendo Nathan DO at [facility] N/A: Spine Lumbar SARAH : SPINE [id number] / / 9 X 23x 6 - 9mm Pl Implanted:Qty : 1 on 10/11/2017 by Rosendo Nathan DO at [facility] N/A: Spine Lumbar SARAH : SPINE [id number] / / Shashank Bina 3 Ti 6x40mm - [id number] Implanted:Qty : 1 on 10/11/2017 by Rosendo Nathan DO at [facility] N/A: Spine Lumbar SARAH : SPINE [id number] / / Shashank Bina 3 Ti 6x45mm - [id number] Implanted:Qty : 1 on 10/11/2017 by Rosendo Nathan DO at [facility] N/A: Spine Lumbar SARAH : SPINE [id number] / / documented as of this encounter Visit Diagnoses Diagnosis MGUS (monoclonal gammopathy of unknown significance)- Primary Monoclonal paraproteinemia Macrocytic anemia Unspecified deficiency anemia Anemia due to folic acid deficiency, unspecified deficiency type Elevated ferritin Other abnormal blood chemistry Alcohol use disorder, severe, in early remission (HCC) Pancreatic cyst Cyst and pseudocyst of pancreas Weight loss, unintentional Loss of weight Nausea & vomiting Nausea with vomiting Unintentional weight loss Loss of weight documented in this encounter Advance Directives Latest Code Status on File Code Status Date Activated Date Inactivated Comments Full Code 10/11/2017 9:23 AM 10/13/2017 10:36 PM This order reflects the patients wishes and were consensually agreed upon. Care Teams Ferryboat Operator Helper Relationship Specialty Start Date End Date Myesha Cavanaugh MD [address] [place] [id number] PCP - General Family Medicine 02/18/22 documented as of this encounter
--- OUTSIDE RECORDS SUMMARY | 2024-04-17 01:50 | External Medical Summary | Summary of Care ---
Author Name Unknown Organization [facility] Address [address] [facility] [address] Phone [phone] Care Team Providers Care Parking Meter Servicer Name Role Phone Myesha Cavanaugh MD Primary Care Provid er Reason for Visit * Reason Onset Date Comments Appointment 11/07/2023 Encounter Details Date Type Department Care Team (Late st Contact Info) Description 11/07/2023 Telephone Hematology/Oncology [facility] [place] [address] [facility] [address] Jenna Yanes CRNP [address] [place] [address] Appointment Allergies Active Allergy Reactions Criticality Noted Date Comments Amoxicillin 01/05/2017 thrush Latex 06/20/2013 Hives, rash and swelling Lisinopril 06/02/2023 COUGH Nickel Rash 12/03/2020 documented as of this encounter (statuses as of 11/08/2023) Medications Medication Sig Dispensed Refills Start Date End Date Status Spiriva Respimat 2.5 MCG/ACT Inhalation Aerosol Solution (Tiotropium [place] Monohydrate) Inhale 2 Puffs by mouth daily. [...] EDT Hospital Encounter ENDO [facility], Endoscopy Room [facility] [address] [place] [address] Erika Rios, DO [address] [place] [address] 01/18/2024 1:30 PM EDT - 01/18/2024 2:30 PM EDT Surgery ENDO [facility], Endoscopy Room [facility] [address] [place] [phone] Erika Rios, [address] [place] [address] COLONOSCOPY FLEXIBLE PROXIMAL DIAGNOSTIC 01/23/2024 1:00 PM EDT Imaging Radiology [facility] [address] [facility] 132 [facility] [place] [address] 02/06/2024 4:30 PM EDT Laboratory Laboratory, [facility] 132 [facility] [place] [phone] [facility] Lab [facility] 132 [facility] [place] [address] 02/12/2024 3:30 PM EDT Office [facility] [place] 200 [facility] [place] [phone] Jenna Yanes CRNP [address] [place] [address] [place] [address] 03/15/2024 4:00 PM EDT Office Visit Nephrology, [place] 200 [facility] [place] [address] Chon Whitley MD 200 [facility] [place] [address] Scheduled Orders Name Type Priority Associated Diagnoses [...] this encounter Medical Devices Implanted Type Area Carpenter Ship Device Identifier Shelf Expiration Date Model / Serial / Lot Vitoss Bimodal Foam Pack 10cc - [id number] Implanted:Qty : 2 on 10/11/2017 by Rosendo Nathan DO at [facility] N/A: Spine Lumbar SARAH : SPINE 03/08/2019 / / [id number] Vitoss Bimodal Foam Pack 10cc - [id number] Implanted:Qty : 1 on 10/11/2017 by Rosendo Nathan DO at [facility] N/A: Spine Lumbar SARAH : SPINE 02/05/2019 / / [id number] Screw Audie Bina 3 Ti Set - [id number] Implanted:Qty : 4 on 10/11/2017 by Rosendo Nathan DO at [facility] N/A: Spine Lumbar SARAH : SPINE [id number] / / 6.5 X 50 Mm Serrate Screws Implanted:Qty : 2 on 10/11/2017 by Rosendo Nathan DO at [facility] N/A: Spine Lumbar SARAH : SPINE [id number] / / 6.5 X 45 Mm Serrate Screw Implanted:Qty : 2 on 10/11/2017 by Rosendo Nathan DO at [facility] N/A: Spine Lumbar SARAH : SPINE [id number] / / 9 X 23x 6 - 9mm Pl Implanted:Qty : 1 on 10/11/2017 by Rosendo Nathan DO at [facility] N/A: Spine Lumbar SARAH : SPINE [id number] / / Shashank Bina 3 Ti 6x40mm - [id number] Implanted:Qty : 1 on 10/11/2017 by Rosendo Nathan DO at [facility] N/A: Spine Lumbar SARAH : SPINE [id number] / / Shashank Bina 3 Ti 6x45mm - [id number] Implanted:Qty : 1 on 10/11/2017 by Rosendo Nathan DO at [facility] N/A: Spine Lumbar SARAH : SPINE [id number] / / documented as of this encounter [...] and were consensually agreed upon. Care Teams Parking Meter Servicer Relationship Specialty Start Date End Date Myesha Cavanaugh MD [address] [facility] [place] [address] PCP - General Family Medicine 02/18/22 documented as of this encounter
--- OUTSIDE RECORDS SUMMARY | 2024-04-17 01:50 | External Medical Summary | Summary of Care ---
Author Name Unknown Organization [facility] Address [address] [facility] [address] Phone [phone] Care Team Providers Care Edge Inker Heels Name Role Phone Myesha Cavanaugh MD Primary Care Provid er Encounter Details Date Type Department Care Team (Late st Contact Info) Description 11/07/2023 Telephone Hematology/Oncology [facility] [place] [address] [facility] [address] Jenna Yanes CRNP 400 [place] [address] Allergies Active Allergy Reactions Criticality Noted Date Comments Amoxicillin 01/05/2017 thrush Latex 06/20/2013 Hives, rash and swelling Lisinopril 06/02/2023 COUGH Nickel Rash 12/03/2020 documented as of this encounter (statuses as of 11/08/2023) Medications Medication Sig Dispensed Refills Start Date End Date Status Spiriva Respimat 2.5 MCG/ACT Inhalation Aerosol Solution (Tiotropium [place] Monohydrate) Inhale 2 Puffs by mouth daily. [...] Ramirez OSA - 11/08/2023 11:13 AM EST [place] Authorization to Release form on file. 10/31/23 Abd/Pelvis CT Images pushed through PACS to [facility] All Sites Power Share. * Telephone Encounter - Bear Momin RN - 11/07/2023 2:42 PM EST Radiology- can we please push patients recent CT A/P images to [facility]. Thank you. * Telephone Encounter - Jenna [...] etiology. Patient follows with Dr. Nathan with [facility] Neurosurgery. Can we please push images for his review?Patient to have revision L3-4 decompression and fusion in the near future. Patient also had CT L spine within [facility] system in September. Based on above imaging does he feel another lumbar spine MRI is needed prior to surgery? If so would he want this MRI done at [facility] or would he prefer to be doneat [facility]? Thank you! documented in this encounter Plan of Treatment Upcoming Encounters Date Type Department Care Team (Latest Contact Info) Description 01/18/2024 1:30 PM EDT Hospital Encounter ENDO [facility], Endoscopy Room [facility] 132 [facility] [place] [phone] Erika Rios DO [address] [place] [address] 01/18/2024 1:30 PM EDT - 01/18/2024 2:30 PM EDT Surgery ENDO [facility], Endoscopy Room [facility] [address] [place], [place] [phone] Erika Rios, DO [address] [place] [address] COLONOSCOPY FLEXIBLE PROXIMAL DIAGNOSTIC 01/23/2024 1:00 PM EDT Imaging Radiology [facility] [address] [place] [address] 02/06/2024 4:30 PM EDT Laboratory Laboratory, [facility] [address] [facility] [place] [phone] [facility] [address] [place], [place] [address] 02/12/2024 3:30 PM EDT Office Visit Hematology/Oncolog y [facility] [place] 200 [facility] [place] [phone] Jenna Yanes CRNP 400 [facility] [place] [address] 03/15/2024 4:00 PM EDT Office Visit Nephrology, [facility] [address] [place] [address] Chon Whitley MD 200 [facility] [place] [address] Scheduled Procedures Name Priority Associated Diagnoses Date/Ti [...] this encounter Medical Devices Implanted Type Area Dishing Machine Operator Device Identifier Shelf Expiration Date Model / Serial / Lot Vitoss Bimodal Foam Pack 10cc - [id number] Implanted:Qty : 2 on 10/11/2017 by Rosendo Nathan, DO at [facility] N/A: Spine Lumbar SARAH : SPINE 03/08/2019 / / [id number] Vitoss Bimodal Foam Pack 10cc - [id number] Implanted:Qty : 1 on 10/11/2017 by Rosendo Nathan DO at [facility] N/A: Spine Lumbar SARAH : SPINE 02/05/2019 / / [id number] Screw Audie Bina 3 Ti Set - [id number] Implanted:Qty : 4 on 10/11/2017 by Rosendo Nathan DO at [facility] N/A: Spine Lumbar SARAH : SPINE [id number] / / 6.5 X 50 Mm Serrate Screws Implanted:Qty : 2 on 10/11/2017 by Rosendo Nathan DO at [facility] N/A: Spine Lumbar SARAH : SPINE [id number] / / 6.5 X 45 Mm Serrate Screw Implanted:Qty : 2 on 10/11/2017 by Rosendo Nathan DO at [facility] N/A: Spine Lumbar SARAH : SPINE [id number] / / 9 X 23x 6 - 9mm Pl Implanted:Qty : 1 on 10/11/2017 by Rosendo Nathan DO at [facility] N/A: Spine Lumbar SARAH : SPINE [id number] / / Shashank Bina 3 Ti 6x40mm - [id number] Implanted:Qty : 1 on 10/11/2017 by Rosendo Nathan DO at [facility] N/A: Spine Lumbar SARAH : SPINE [id number] / / Shashank Bina 3 Ti 6x45mm - [id number] Implanted:Qty : 1 on 10/11/2017 by Rosendo Nathan DO at [facility] N/A: Spine Lumbar SARAH : SPINE [id number] / / documented as of this encounter Advance Directives Latest Code Status on File Code Status Date Activated Date Inactivated Comments Full Code 10/11/2017 9:23 AM 10/13/2017 10:36 PM This order reflects the patients wishes and were consensually agreed upon. Care Teams Edge Inker Heels Relationship Specialty Start Date End Date Myesha Cavanaugh MD [address] [place] [address] PCP - General Family Medicine 02/18/22 documented as of this encounter
--- OUTSIDE RECORDS SUMMARY | 2024-04-17 01:50 | External Medical Summary | Summary of Care ---
Author Name Unknown Organization [facility] Address [address] [address] [address] Phone [phone] Care Team Providers Care Formulation Scientist Name Role Phone Олег Cavanaugh MD Primary Care Provid er Reason for Referral * Medication Prior Authorization - Pending Review Specialty Diagnoses / Procedures Referred By Contac t Referred To Contact Diagnoses History of lumbar fusion Spinal stenosis of lumbar region with neurogenic claudication Lumbar radiculitis Sacroiliac joint pain Олег Cavanaugh MD [address] [place] [address] Referral ID Status Reason Start Date Expiration Date V isits Requested Visits Authorized [id number] Pending Review 999 999 Reason for Visit * Reason Onset Date Comments Medication Refill 11/07/2023 Encounter Details Date Type Department Care Team (Late st Contact Info) Description 11/07/2023 Telephone [facility] [address] [facility] [phone] Олег Cavanaugh MD [address] [place] [address] Medication Refill Allergies Active Allergy Reactions Criticality Noted Date Comments Amoxicillin 01/05/2017 thrush Latex 06/20/2013 Hives, rash and swelling Lisinopril 06/02/2023 COUGH Nickel Rash 12/03/2020 documented as of this encounter (statuses as of 11/08/2023) Medications Medication Sig Dispensed Refills Start Date End Date Status Spiriva Respimat 2.5 MCG/ACT Inhalation Aerosol Solution (Tiotropium [place] Monohydrate) Inhale 2 Puffs by mouth daily. [...] disorder with single episode, in full remission ([facility]) Take 1 capsule by mouth in the [...] Pain, Severe. 90 Tablet 0 11/07/2023 Active HYDROcodone-Acetam inophen 7.5-325 MG Oral TabletIndications: [...] encounter Miscellaneous Notes * Telephone Encounter - Blaire Venegas LPN - 11/08/2023 9:23 AM EST Additional information was fax to for approval of HYDROCODONE- ACETAMIN 7.5-325 * Telephone Encounter - Jeison Singletary CPhT - 11/08/2023 8:31 AM EST Patients insurance would like to inform the office that HYDROCODONE-ACETAMIN 7.5-325 is requiring additional information: clinical criteria. Prior authorization entered in [employer] at [facility]. [facility]# [id number] Please fax to [phone] before [facility]. Thank you, Spencer Singletary ([facility]) Drapery Examiner III Centralized Clin[facility] Pharmacy Services (CCPS) (formerly Telepharmacy) 11/08/2023, 8:31 AM * Telephone Encounter - Олег Cavanaugh MD - 11/07/2023 5:05 PM EST Signed Prescriptions: Disp Refills HYDROcodone-Acetaminophen 7.5-325 MG Oral *90 Tab*0 Sig: Take 1 Tablet by mouth every 8 hours as needed for Pain, Severe.Authorizing Provider: ОЛЕГ CAVANAUGH IPE * Telephone Encounter - Олег Cavanaugh MD - 11/07/2023 5:02 PM EST Nursing - Please fax letter to Dr. Nathan I just generated - thanks Script signed * Telephone Encounter - Mandy Hurt [facility] - 11/07/2023 1:30 PM ESTPending Prescriptions: Disp Refills HYDROcodone-Acetaminophen 7.5-325 MG Oral *90 Tab*0 Sig: Take 1 Tablet by mouth every 8 hours as needed for Pain, Severe. * Telephone Encounter - Mandy Hurt [facility] - 11/07/2023 1:29 PM EST I have reviewed the patients controlled substance dispensing history in the Prescription Drug Monitoring Program in compliance with the [place] regulations before prescribing a controlled substance. PDMP checked on 11/07/2023. Pending Prescriptions: Disp Refills HYDROcodone-Acetaminophen 7.5-325 MG Oral*90 Tab*0 Sig: Take 1 Tablet by mouth every 8 hours as needed for Pain, Severe. Last Visit: 09/01/2023 (in office), 10/16/2023 (telemedicine) Next Visit: Visit date not found Date medication was last filled: 10/09/23 Date medication is due for refill: 11/07/23 Pharmacy: [facility] [address] [place] [address] [address] [place] [place] Is this request for a controlled substance? Yes and Urine Drug Screen Not completed Toxicology results: No results found for this or any previous visit. Please approve if appropriate. Thank You, Mandy Hurt [facility] Clinical Pharmacist Centralized Clinical Pharmacy Services (CCPS) (formerly Telepharmacy) [phone] 11/07/2023, 1:29 PM * Telephone Encounter - Dasia Bond, director of special education - 11/07/2023 1:11 PM EST Pt requesting HIGH PRIORITY due to being out of medication. Did you pend patient's preferred pharmacy and medication before forwarding?yes Pharmacy: [facility] [address] [place] [address] [address] [place] Pending Prescriptions: Disp Refills HYDROcodone-Acetaminophen 7.5-325 MG Oral*90 Tab*0 Sig: Take 1 Tablet by mouth every 8 hours as needed for Pain, Severe. Last Visit: 09/01/2023 (in office), 10/16/2023 (telemedicine) Next Visit: Visit date not found If no future appointments scheduled, and last appointment is greater than a year ago, please schedule patient for a follow-up appointment Last date the medication was ordered: 09/22/2023 Is this request for a controlled substance?Yes, What was the last refill date 09/22/2023 w/ [id number] and dosage 7.5-325 mg and Urine Drug Screen Not completed Urine Drug Screen:No results found for this [...] 01/18/2024 1:30 PM EDT Hospital Encounter ENDO [facility], Endoscopy Room [facility] [address] [place] [phone] Erika Rios, [address] [place] [address] 01/18/2024 1:30 PM EDT - 01/18/2024 2:30 PM EDT Surgery [facility]O [facility], Endoscopy Room [facility] [address] [place] [phone] Erika Rios DO [address] [place] [address] COLONOSCOPY FLEXIBLE PROXIMAL DIAGNOSTIC 01/23/2024 1:00 PM EDT Imaging Radiology [facility] 1st [facility] [address] [place] [address] 02/06/2024 4:30 PM EDT Laboratory Laboratory, [facility] 132 [facility] [place] [phone] [facility] 132 [facility] [place] [address] 02/12/2024 3:30 PM EDT Office Visit [facility] [address] [place] [phone] Jenna Yanes CRNP [address] [place] [address] 03/15/2024 4:00 PM EDT Office Visit Nephrology, [facility] [address] [place] [address] Chon Whitley MD 200 [place] [address] Scheduled Procedures Name Priority Associated Diagnoses Date/Ti [...] this encounter Medical Devices Implanted Type Area Recorder Gravity Prospecting Device Identifier Shelf Expiration Date Model / Serial / Lot Vitoss Bimodal Foam Pack 10cc - [id number] Implanted:Qty : 2 on 10/11/2017 by Rosendo Nathan DO at [facility] N/A: Spine Lumbar SARAH : SPINE 03/08/2019 / / [id number] Vitoss Bimodal Foam Pack 10cc - [id number] Implanted:Qty : 1 on 10/11/2017 by Rosendo Nathan DO at [facility] N/A: Spine Lumbar SARAH : SPINE 02/05/2019 / / [id number] Screw Audie Bina 3 Ti Set - [id number] Implanted:Qty : 4 on 10/11/2017 by Rosendo Nathan DO at [facility] N/A: Spine Lumbar SARAH : SPINE [id number] / / 6.5 X 50 Mm Serrate Screws Implanted:Qty : 2 on 10/11/2017 by Rosendo Nathan DO at [facility] N/A: Spine Lumbar SARAH : SPINE [id number] / / 6.5 X 45 Mm Serrate Screw Implanted:Qty : 2 on 10/11/2017 by Rosendo Nathan DO at [facility] N/A: Spine Lumbar SARAH : SPINE [id number] / / 9 X 23x 6 - 9mm Pl Implanted:Qty : 1 on 10/11/2017 by Rosendo Nathan DO at [facility] N/A: Spine Lumbar SARAH : SPINE [id number] / / Shashank Bina 3 Ti 6x40mm - [id number] Implanted:Qty : 1 on 10/11/2017 by Rosendo Nathan DO at [facility] N/A: Spine Lumbar SARAH : SPINE [id number] / / Shashank Bina 3 Ti 6x45mm - [id number] Implanted:Qty : 1 on 10/11/2017 by Rosendo Nathan DO at [facility] N/A: Spine Lumbar SARAH : SPINE [id number] / / documented as of this encounter Visit Diagnoses Diagnosis History of lumbar fusion Spinal stenosis of lumbar region with neurogenic claudication Spinal stenosis, lumbar region, with neurogenic claudication Lumbar radiculitis Thoracic or lumbosacral neuritis or radiculitis, unspecified Sacroiliac joint pain Disorders of sacrum Nausea & vomiting Nausea with vomiting Unintentional weight loss Loss of weight documented in this encounter Advance Directives Latest Code Status on File Code Status Date Activated Date Inactivated Comments Full Code 10/11/2017 9:23 AM 10/13/2017 10:36 PM This order reflects the patients wishes and were consensually agreed upon. Care Teams Formulation Scientist Relationship Specialty Start Date End Date Олег Cavanaugh MD [address] [place] [facility] [place] [address] PCP - General Family Medicine 02/18/22 documented as of this encounter
--- OUTSIDE RECORDS SUMMARY | 2024-04-17 01:50 | External Medical Summary | Summary of Care ---
Author Name Unknown Organization [facility] Address [address] [facility] [address] Phone [phone] Care Team Providers Care Food Service Assistant Name Role Phone Myesha Cavanaugh MD Primary Care Provid er Encounter Details Date Type Department Care Team (Late st Contact Info) Description 11/07/2023 Telephone Hematology/Oncology [facility] [place] [address] [facility] [address] Jenna Yanes CRNP [address] [place] [address] Allergies Active Allergy Reactions Criticality Noted Date Comments Amoxicillin 01/05/2017 thrush Latex 06/20/2013 Hives, rash and swelling Lisinopril 06/02/2023 COUGH Nickel Rash 12/03/2020 documented as of this encounter (statuses as of 11/08/2023) Medications Medication Sig Dispensed Refills Start Date End Date Status Spiriva Respimat 2.5 MCG/ACT Inhalation Aerosol Solution (Tiotropium [place] Monohydrate) Inhale 2 Puffs by mouth daily. [...] encounter Miscellaneous Notes * Telephone Encounter - Bear Momin RN - 11/07/2023 2:42 PM EST Radiology- can we please push patients recent CT A/P images to [facility]. Thank you. * Telephone Encounter [...] etiology. Patient follows with Dr. Nathan with [facility] Neurosurgery. Can we please push images for his review?Patient to have revision L3-4 decompression and fusion in the near future. Patient also had CT L spine within [facility] system in September. Based on above imaging does he feel another lumbar spine MRI is needed prior to surgery? If so would he want this MRI [facility] or would he prefer to be doneat [facility]? Thank you! documented in this encounter Plan of Treatment Upcoming Encounters Date Type Department Care Team (Latest Contact Info) Description 01/18/2024 1:30 PM EDT Hospital Encounter ENDO [facility], Endoscopy Room [facility] [address] [place] [phone] Erika Rios DO [address] [place] [address] 01/18/2024 1:30 PM EDT - 01/18/2024 2:30 PM EDT Surgery ENDO [facility], Endoscopy Room [facility] [address] [place] [phone] Erika Rios DO [facility] [place] [address] COLONOSCOPY FLEXIBLE PROXIMAL DIAGNOSTIC 01/23/2024 1:00 PM EDT Imaging Radiology [facility] 1st [facility] 132 [facility] [place] [address] 02/06/2024 4:30 PM EDT Laboratory Laboratory, [facility] 132 [place] [phone] [facility] [address] [facility], [place] [address] 02/12/2024 3:30 PM EDT Office Visit Hematology/Oncolog y [facility] [address] [place] [phone] Jenna Yanes CRNP 400 [place] [address] 03/15/2024 4:00 PM EDT Office Visit Nephrology, [facility] 200 [facility] [place] [address] Chon Whitley MD [address] [place] [address] Scheduled Procedures Name Priority Associated Diagnoses Date/Ti [...] < 10) 10/26/2023 10/25/2023 Mammogram 01/18/2024 01/17/2023, 050 05/2023, 06/27/2013 GFR 10/31/2024 10/31/2023, 10/12, 09/23/2023, [...] this encounter Medical Devices Implanted Type Area Flooring Machine Feeder Device Identifier Shelf Expiration Date Model / Serial / Lot Vitoss Bimodal Foam Pack 10cc - [id number] Implanted:Qty : 2 on 10/11/2017 by Rosendo Nathan, DO at [facility] N/A: Spine Lumbar SARAH : SPINE 03/08/2019 / / [id number] Vitoss Bimodal Foam Pack 10cc - [id number] Implanted:Qty : 1 on 10/11/2017 by Rosendo Nathan, DO at [facility] N/A: Spine Lumbar SARAH : SPINE 02/05/2019 / / [id number] Screw Audie Bina 3 Ti Set - [id number] Implanted:Qty : 4 on 10/11/2017 by Rosendo Nathan, at [facility] N/A: Spine Lumbar SARAH : SPINE [id number] / / 6.5 X 50 Mm Serrate Screws Implanted:Qty : 2 on 10/11/2017 by Rosendo Nathan, at [facility] N/A: Spine Lumbar SARAH : SPINE [id number] / / 6.5 X 45 Mm Serrate Screw Implanted:Qty : 2 on 10/11/2017 by Rosendo Nathan, DO at [facility] N/A: Spine Lumbar SARAH : SPINE [id number] / / 9 X 23x 6 - 9mm Pl Implanted:Qty : 1 on 10/11/2017 by Rosendo Nathan, at [facility] N/A: Spine Lumbar SARAH : SPINE [id number] / / Shashank Bina 3 Ti 6x40mm - [id number] Implanted:Qty : 1 on 10/11/2017 by Rosendo Nathan, at [facility] N/A: Spine Lumbar SARAH : SPINE [id number] / / Shashank Bnia 3 Ti 6x45mm - [id number] Implanted:Qty : 1 on 10/11/2017 by Rosendo Nathan, DO at [facility] N/A: Spine Lumbar SARAH : SPINE [id number] / / documented as of this encounter Advance Directives Latest Code Status on File Code Status Date Activated Date Inactivated Comments Full Code 10/11/2017 9:23 AM 10/13/2017 10:36 PM This order reflects the patients wishes and were consensually agreed upon. Care Teams Food Service Assistant Relationship Specialty Start Date End Date Myesha Cavanaugh MD [address] [place] [address] PCP - General Family Medicine 02/18/22 documented as of this encounter
--- OUTSIDE RECORDS SUMMARY | 2024-04-17 01:50 | External Medical Summary | Summary of Care ---
Author Name Unknown Organization [facility] Address [address] [facility] [address] Phone [phone] Care Team Providers Care Head Insulation Board Saw Operator Name Role Phone Олег Cavanaugh MD Primary Care Provid er Reason for Referral * Medication Prior Authorization - Pending Review Specialty Diagnoses / Procedures Referred By Contac t Referred To Contact Diagnoses History of lumbar fusion Spinal stenosis of lumbar region with neurogenic claudication Lumbar radiculitis Sacroiliac joint pain Олег Cavanaugh MD [address] [place] [address] Referral ID Status Reason Start Date Expiration Date V isits Requested Visits Authorized [id number] Pending Review 999 999 Reason for Visit * Reason Onset Date Comments Medication Refill 11/07/2023 Encounter Details Date Type Department Care Team (Late st Contact Info) Description 11/07/2023 Telephone [facility] [address] [place] [phone] Олег Cavanaugh MD [address] [place] [address] Medication Refill Allergies Active Allergy Reactions Criticality Noted Date Comments Amoxicillin 01/05/2017 thrush Latex 06/20/2013 Hives, rash and swelling Lisinopril 06/02/2023 COUGH Nickel Rash 12/03/2020 documented as of this encounter (statuses as of 11/08/2023) Medications Medication Sig Dispensed Refills Start Date End Date Status Spiriva Respimat 2.5 MCG/ACT Inhalation Aerosol Solution (Tiotropium Royal Monohydrate) Inhale 2 Puffs by mouth daily. [...] with single episode, in full remission (FORMERLY [facility]) Take 1 capsule by mouth in the [...] authorization entered in Prompt[employer] at [facility]. EOC# [id number] Please fax to [phone] before [facility]. Thank you, Spencer Singletary ([facility]) [employer] [facility] Clin[facility] Pharmacy Services (CCPS) (formerly Telepharmacy) 11/08/2023, 8:31 AM * Telephone Encounter - Олег Cavanaugh MD - 11/07/2023 5:05 PM EST Signed Prescriptions: Disp Refills HYDROcodone-Acetaminophen 7.5-325 MG Oral *90 Tab*0 Sig: Take 1 Tablet by mouth every 8 hours as needed for Pain, Severe.Authorizing Provider: ОЛЕГ CAVANAUGH CH IPE * Telephone Encounter - Олег Cavanaugh MD - 11/07/2023 5:02 PM EST Nursing - Please fax letter to Dr. Nathan I just generated - thanks Script signed * Telephone Encounter - Mandy Hurt [facility] - 11/07/2023 1:30 PM ESTPending Prescriptions: Disp Refills HYDROcodone-Acetaminophen 7.5-325 MG Oral *90 Tab*0 Sig: Take 1 Tablet by mouth every 8 hours as needed for Pain, Severe. * Telephone Encounter - Mandy Hurt [facility] - 11/07/2023 1:29 PM EST I have reviewed the patients controlled substance dispensing history in the Prescription Drug Monitoring Program in compliance with the [facility] regulations before prescribing a controlled substance. PDMP checked on 11/07/2023. Pending Prescriptions: Disp Refills HYDROcodone-Acetaminophen 7.5-325 MG Oral*90 Tab*0 Sig: Take 1 Tablet by mouth every 8 hours as needed for Pain, Severe. Last Visit: 09/01/2023 (in office), 10/16/2023 (telemedicine) Next Visit: Visit date not found Date medication was last filled: 10/09/23 Date medication is due for refill: 11/07/23 [facility] [address] [address] [place] Is this request for a controlled substance? Yes and Urine Drug Screen Not completed Toxicology results: No results found for this or any previous visit. Please approve if appropriate. Thank You, Mandy Hurt [facility] Clinical Pharmacist Centralized Clinical Pharmacy Services (CCPS) (formerly Telepharmacy) [phone] 11/07/2023, 1:29 PM * Telephone Encounter - Dasia Bond PHARM Tech - 11/07/2023 1:11 PM EST Pt requesting HIGH PRIORITY due to being out of medication. Did you pend patient's preferred pharmacy and medication before forwarding?yes [facility] [address] Pending Prescriptions: Disp Refills HYDROcodone-Acetaminophen 7.5-325 MG [...] was the last refill date 09/22/2023 w/ [id number] and dosage 7.5-325 mg and Urine Drug Screen Not completed Urine Drug Screen:No results found for this or any previous visit. Patient Phone Numbers [employer] [phone] Labs: Lab Results Component Value Date/Time CREAT [...] EDT Hospital Encounter ENDO OSSC, Endoscopy Room [facility] [address] [place], [place] [phone] Erika Rios, DO [address] [place], [place] [address] 01/18/2024 1:30 PM EDT - 01/18/2024 2:30 PM EDT Surgery ENDO [facility], Endoscopy Room [facility] [address] [place], [place] [phone] Erika Rios, DO [address] [place], [place] [address] COLONOSCOPY FLEXIBLE PROXIMAL DIAGNOSTIC 01/23/2024 1:00 PM EDT Imaging Radiology [address] [place] [address] 02/06/2024 4:30 PM EDT Laboratory Laboratory, [facility] [address] [facility] [place] [phone] [facility] [address] [place], [place] [address] 02/12/2024 3:30 PM EDT Office Visit [facility] [place] [place] [address] [facility] [place] [phone] Jenna Yanes CRNP [address] [place] [address] [place] [address] 03/15/2024 4:00 PM EDT Office Visit Nephrology, Charbel Marquis [address] [place] [address] Chon Whitley MD 200 [facility] [place] [address] Scheduled Procedures Name Priority Associated Diagnoses Date/Ti [...] this encounter Medical Devices Implanted Type Area Marketing Agent Device Identifier Shelf Expiration Date Model / Serial / Lot Vitoss Bimodal Foam Pack 10cc - [id number] Implanted:Qty : 2 on 10/11/2017 by Rosendo Nathan DO at [facility] N/A: Spine Lumbar SARAH : SPINE 03/08/2019 / / [id number] Vitoss Bimodal Foam Pack 10cc - [id number] Implanted:Qty : 1 on 10/11/2017 by Rosendo Nathan DO at [facility] N/A: Spine Lumbar SARAH : SPINE 02/05/2019 / / [id number] Screw Audie Bina 3 Ti Set - [id number] Implanted:Qty : 4 on 10/11/2017 by Rosendo Nathan DO at [facility] N/A: Spine Lumbar SARAH : SPINE [id number] / / 6.5 X 50 Mm Serrate Screws Implanted:Qty : 2 on 10/11/2017 by Rosendo Nathan DO at [facility] N/A: Spine Lumbar SARAH : SPINE [id number] / / 6.5 X 45 Mm Serrate Screw Implanted:Qty : 2 on 10/11/2017 by Rosendo Nathan DO at [facility] N/A: Spine Lumbar SARAH : SPINE [id number] / / 9 X 23x 6 - 9mm Pl Implanted:Qty : 1 on 10/11/2017 by Rosendo Nathan DO at [facility] N/A: Spine Lumbar SARAH : SPINE [id number] / / Shashank Bina 3 Ti 6x40mm - [id number] Implanted:Qty : 1 on 10/11/2017 by Rosendo Nathan DO at [facility] N/A: Spine Lumbar SARAH : SPINE [id number] / / Shashank Bina 3 Ti 6x45mm - [id number] Implanted:Qty : 1 on 10/11/2017 by Rosendo Nathan DO at [facility] N/A: Spine Lumbar SARAH : SPINE [id number] / / documented as of this encounter [...] were consensually agreed upon. Care Teams Head Insulation Board Saw Operator Relationship Specialty Start Date End Date Олег Cavanaugh MD [address] [place] [address] PCP - General Family Medicine 02/18/22 documented as of this encounter
--- OUTSIDE RECORDS SUMMARY | 2024-04-17 01:50 | External Medical Summary | Summary of Care ---
Author Name Unknown Organization [facility] Address [address] [facility] [address] Phone [phone] Care Team Providers Care Forms Analysis Manager Name Role Phone Myesha Cavanaugh MD Primary Care Provid er Reason for Visit * Reason Onset Date Comments Information 11/07/2023 Encounter Details Date Type Department Care Team (Late st Contact Info) Description 11/07/2023 Telephone Hematology/Oncology [facility] [place] [address] [facility] [address] Jenna Yanes CRNP [address] [place] [address] Information Allergies Active Allergy Reactions Criticality Noted Date Comments Amoxicillin 01/05/2017 thrush Latex 06/20/2013 Hives, rash and swelling Lisinopril 06/02/2023 COUGH Nickel Rash 12/03/2020 documented as of this encounter (statuses as of 11/08/2023) Medications Medication Sig Dispensed Refills Start Date End Date Status Spiriva Respimat 2.5 MCG/ACT Inhalation Aerosol Solution (Tiotropium Mcgrath Monohydrate) Inhale 2 Puffs by mouth daily. [...] 12:[address] Erickson office ([phone]) and spoke to Yadi. Advised that we had images of CT scan pushed- she asked that we also fax report to [phone] (faxed after call). Advised her that Jenna [...] Ramirez OSA - 11/08/2023 11:13 AM EST Hamer Authorization to Release form on file. 10/31/23 Abd/Pelvis CT Images pushed through PACS to [facility] All Sites Power Share. * Telephone Encounter - Bear Momin RN - 11/07/2023 2:42 PM EST Radiology- can we please push patients recent CT A/P images to [facility]. Thank you. * Telephone Encounter [...] etiology. Patient follows with Dr. Nathan with [facility] Neurosurgery. Can we please push images for his review?Patient to have revision L3-4 decompression and fusion in the near future. Patient also had CT L spine within [facility] system in September. Based on above imaging does he feel another lumbar spine MRI is needed prior to surgery? If so would he want this MRI done at [facility] or would he prefer to be doneat [facility]? Thank you! documented in this encounter Plan of Treatment Upcoming Encounters Date Type Department Care Team (Latest Contact Info) Description 01/18/2024 1:30 PM EDT Hospital Encounter ENDO OSSC, Endoscopy Room [facility] [address] [place] [phone] Erika Rios DO [address] [place] [address] 01/18/2024 1:30 PM EDT - 01/18/2024 2:30 PM EDT Surgery ENDO OSS, Endoscopy Room [facility] [address] [place] [phone] Erika Rios DO [address] [place] [address] COLONOSCOPY FLEXIBLE PROXIMAL DIAGNOSTIC 01/23/2024 1:00 PM EDT Imaging Radiology [facility]st [facility] [address] [place] [address] 02/06/2024 4:30 PM EDT Laboratory Laboratory, [facility] [address] [place] [phone] [facility] [address] [place] [address] 02/12/2024 3:30 PM EDT Office Visit Hematology/Oncolog y [facility] [place] [address] [facility] [place] [address] Jenna Yanes CRNP [address] [facility] [place] [address] 03/15/2024 4:00 PM EDT Office Visit Nephrology, [facility] 200 [facility] [place] [address] Chon Whitley MD 200 [facility] [place] [address] Scheduled Procedures Name Priority Associated Diagnoses Date/Ti [...] this encounter Medical Devices Implanted Type Area Negative Retoucher Device Identifier Shelf Expiration Date Model / Serial / Lot Vitoss Bimodal Foam Pack 10cc - [id number] Implanted:Qty : 2 on 10/11/2017 by Rosendo Nathan DO at [facility] N/A: Spine Lumbar SARAH : SPINE 03/08/[id number] / / [id number] Vitoss Bimodal Foam Pack 10cc - [id number] Implanted:Qty : 1 on 10/11/2017 by Rosendo Nathan DO at [facility] N/A: Spine Lumbar SARAH : SPINE 02/05/2019 / / [id number] Screw Audie Bina 3 Ti Set - [id number] Implanted:Qty : 4 on 10/11/2017 by Rosendo Nathan DO at [facility] N/A: Spine Lumbar SARAH : SPINE [id number] / / 6.5 X 50 Mm Serrate Screws Implanted:Qty : 2 on 10/11/2017 by Rosendo Nathan DO at [facility] N/A: Spine Lumbar SARAH : SPINE [id number] / / 6.5 X 45 Mm Serrate Screw Implanted:Qty : 2 on 10/11/2017 by Rosendo Nathan DO at [facility] N/A: Spine Lumbar SARAH : SPINE [id number] / / 9 X 23x 6 - 9mm Pl Implanted:Qty : 1 on 10/11/2017 by Rosendo Nathan, DO at [facility] N/A: Spine Lumbar SARAH : SPINE [id number] / / Shashank Bina 3 Ti 6x40mm - [id number] Implanted:Qty : 1 on 10/11/2017 by Rosendo Nathan, DO at [facility] N/A: Spine Lumbar SARAH : SPINE [id number] / / Shashank Bina 3 Ti 6x45mm - [id number] Implanted:Qty : 1 on 10/11/2017 by Rosendo Nathan, DO at [facility] N/A: Spine Lumbar SARAH : SPINE [id number] / / documented as of this encounter Advance Directives Latest Code Status on File Code Status Date Activated Date Inactivated Comments Full Code 10/11/2017 9:23 AM 10/13/2017 10:36 PM This order reflects the patients wishes and were consensually agreed upon. Care Teams Forms Analysis Manager Relationship Specialty Start Date End Date Myesha Cavanaugh MD [address] [facility] [place] [address] PCP - General Family Medicine 02/18/22 documented as of this encounter
--- OUTSIDE RECORDS SUMMARY | 2024-04-17 01:51 | External Medical Summary | Summary of Care ---
Author Name Unknown Organization [facility] Address [address] [facility] [address] Phone [phone] Care Team Providers Care Medical Chemist Name Role Phone Myesha Cavanaugh MD Primary Care Provid er Reason for Visit * Reason Onset Date Comments Appointment 11/07/2023 Encounter Details Date Type Department Care Team (Late st Contact Info) Description 11/07/2023 Telephone Hematology/Oncology [facility] [address] [facility] [address] Jenna Yanes CRNP [address] [place] [address] Appointment Allergies Active Allergy Reactions Criticality Noted Date Comments Amoxicillin 01/05/2017 thrush Latex 06/20/2013 Hives, rash and swelling Lisinopril 06/02/2023 COUGH Nickel Rash 12/03/2020 documented as of this encounter (statuses as of 11/07/2023) Medications Medication Sig Dispensed Refills Start Date End Date Status Spiriva Respimat 2.5 MCG/ACT Inhalation Aerosol Solution (Tiotropium [place] Monohydrate) Inhale 2 Puffs by mouth daily. [...] 01/06/2023 Active hydrOXYzine HCl 50 MG Oral TabletIndications:A [...] Additional Information Patient not taking.Reported on 09/26/2023 HYDROcodone-Acetami nophen 7.5-325 MG Oral TabletIndications:H istory of lumbar fusion,Spinal stenosis of lumbar region with neurogenic claudication,Lumbar radiculitis,Sacroil iac joint pain Take 1 Tablet by mouth every 8 hours as needed for Pain, Severe. Do not start before September 22, 2023. 90 Tablet 0 09/22/2023 Active Pregabalin 150 MG Oral Capsule (Lyrica)Indications [...] (Zofran)Indications :Nausea and vomiting, unspecified vomiting type Take 1 [...] the morning. 90 Tablet 3 11/06/2023 Active documented as of this encounter (statuses as of 11/07/2023) Active Problems Problem Noted Date Diagnosed Date [...] as of this encounter (statuses as of 11/07/2023) Resolved Problems Problem Noted Date Diagnosed Date Resolved Date Food insecurity 04/19/2021 08/26/2021 Overview: Per [facility] Protocol Asthma exacerbation 03/30/2015 07/07/20 17 Moderate persistent asthma 11/09/2014 0 03/30/2015 Overview: PFT Pneumonitis 07/24/2014 01/06/2022 Asthma exacerbation 07/24/2014 03/30/20 15 documented as of this encounter (statuses as of 11/07/2023) Immunizations Name Administration Dates Next Due PPD [...] [phone] Erika Rios DO [address] [place] [address] 01/18/2024 1:30 PM EDT - 01/18/2024 2:30 PM EDT Surgery ENDO OSSC, Endoscopy Room [facility] [address] [place], [place] [phone] Erika Rios, DO [address] [place] [address] COLONOSCOPY FLEXIBLE PROXIMAL DIAGNOSTIC 01/23/2024 1:00 PM EDT Imaging [facility] [place] [address] 02/06/2024 4:30 PM EDT Laboratory Laboratory, [facility] [address] [facility] [place] [phone] [facility] [address] [place] [address] 02/12/2024 3:30 PM EDT Office Visit Hematology/Oncolog y [employer] [address] [facility] [place] [phone] Jenna Yanes CRNP [address] [facility] [place] [address] 03/15/2024 4:00 PM EDT [facility] [address] [place] [address] Chon Whitley MD 200 [facility] [place] [address] Scheduled Orders Name Type Priority Associated Diagnoses [...] 10/25/2023 Mammogram 01/18/2024 01/17/2023, 05/0 05/2023, 06/27/2013 O2 ASSESSMENT COMPLETED IN PAST YEAR FOR COPD 09/01/2024 09/01/2023 GFR 10/31/2024 10/31/2023, 10/12, 09/23/2023, Additional history exists Albumin/Creatinine Ratio 09/01/2026 09/01/2023 Lipid Panel 05/11/2027 05/11/2022 Colonoscopy 09/27/2033 09/27/2023 Colorectal Cancer Screening 09/27/2033 GARDASIL-HPV IMMUNIZATION SERIES Aged Out No longer eligible based on patient's age to complete this topic MENINGOCOCCAL (MENACTRA/MENVEO) Aged Out No longer eligible based on patient's age to complete this topic documented as of this encounter Medical Devices Implanted Type Area Quality Assurance Supervisor Trim Device Identifier Shelf Expiration Date Model / Serial / Lot Vitoss Bimodal Foam Pack 10cc - [id number] Implanted:Qty : 2 on 10/11/2017 by Rosendo Nathan DO at [facility] N/A: Spine Lumbar SARAH : SPINE 03/08/2019 / / [id number] Vitoss Bimodal Foam Pack 10cc - [id number] Implanted:Qty : 1 on 10/11/2017 by Rosendo Nathan DO at [facility] N/A: Spine Lumbar SARAH : SPINE 02/05/2019 / / [id number] Screw Audie Bina 3 Ti Set - [id number] Implanted:Qty : 4 on 10/11/2017 by Rosendo Nathan DO at [facility] N/A: Spine Lumbar SARAH : SPINE [id number] / / 6.5 X 50 Mm Serrate Screws Implanted:Qty : 2 on 10/11/2017 by Rosendo Nathan DO at [facility] N/A: Spine Lumbar SARAH : SPINE [id number] / / 6.5 X 45 Mm Serrate Screw Implanted:Qty : 2 on 10/11/2017 by Rosendo Nathan DO at [facility] N/A: Spine Lumbar SARAH : SPINE [id number] / / 9 X 23x 6 - 9mm Pl Implanted:Qty : 1 on 10/11/2017 by Rosendo Nathan DO at [facility] N/A: Spine Lumbar SARAH : SPINE [id number] / / Shashank Bina 3 Ti 6x40mm - [id number] Implanted:Qty : 1 on 10/11/2017 by Rosendo Nathan DO at [facility] N/A: Spine Lumbar SARAH : SPINE [id number] / / Shashank Bina 3 Ti 6x45mm - [id number] Implanted:Qty : 1 on 10/11/2017 by Rosendo Nathan DO at [facility] N/A: Spine Lumbar SARAH : SPINE [id number] / / documented as of this encounter [...] were consensually agreed upon. Care Teams Medical Chemist Relationship Specialty Start Date End Date Myesha Cavanaugh MD [address] [place] [address] PCP - General Family Medicine 02/18/22 documented as of this encounter
--- OUTSIDE RECORDS SUMMARY | 2024-04-17 01:51 | External Medical Summary | Summary of Care ---
Author Name Unknown Organization [facility] Address [address] [facility] [address] Phone [phone] Care Team Providers Care Tablet Tester Name Role Phone Myesha Cavanaugh MD Primary Care Provid er Reason for Visit * Reason Onset Date Comments Appointment 11/07/2023 Encounter Details Date Type Department Care Team (Late st Contact Info) Description 11/07/2023 Telephone Hematology/Oncology [facility] [place] [address] [facility] [address] Jenna Yanes CRNP 400 [place] [address] Appointment Allergies Active Allergy Reactions Criticality Noted Date Comments Amoxicillin 01/05/2017 thrush Latex 06/20/2013 Hives, rash and swelling Lisinopril 06/02/2023 COUGH Nickel Rash 12/03/2020 documented as of this encounter (statuses as of 11/07/2023) Medications Medication Sig Dispensed Refills Start Date End Date Status Spiriva Respimat 2.5 MCG/ACT Inhalation Aerosol Solution (Tiotropium Fallentim[place] Monohydrate) Inhale 2 Puffs by mouth daily. [...] as of this encounter Miscellaneous Notes * Addendum Note - Omid Keenan MD [...] EDT Hospital Encounter ENDO OSSC, Endoscopy Room [facility] [address] [place] [phone] Erika Rios DO [address] [place] [address] 01/18/2024 1:30 PM EDT - 01/18/2024 2:30 PM EDT Surgery ENDO OSSC, Endoscopy Room [facility] [address] [place] [phone] Erika Rios DO [address] [facility] [place] [place] [address] COLONOSCOPY FLEXIBLE PROXIMAL DIAGNOSTIC 01/23/2024 1:00 PM EDT Imaging Radiology [facility]st [facility] 132 [place] [address] 02/06/2024 4:30 PM EDT Laboratory Laboratory, [facility] [address] [facility] [phone] [facility] [address] [facility] [place], [place] [address] 02/12/2024 3:30 PM EDT Office Visit Hematology/Oncolog y [facility] [address] [place] [phone] Jenna Yanes CRNP [address] [place] [address] 03/15/2024 4:00 PM EDT Office Visit Nephrology, [facility] [address] [place], [place] [address] Chon Whitley MD 200 [facility] [place] [address] Scheduled Orders Name Type Priority Associated Diagnoses [...] this encounter Medical Devices Implanted Type Area Nike Athlete Device Identifier Shelf Expiration Date Model / Serial / Lot Vitoss Bimodal Foam Pack 10cc - [id number] Implanted:Qty : 2 on 10/11/2017 by Rosendo Nathan DO at [facility] N/A: Spine Lumbar SARAH : SPINE 03/08/2019 [id number] / / [id number] Vitoss Bimodal Foam Pack 10cc - [id number] Implanted:Qty : 1 on 10/11/2017 by Rosendo Nathan DO at [facility] N/A: Spine Lumbar SARAH : SPINE 02/05/2019 [id number] / / [id number] Screw Audie Bina 3 Ti Set - [id number] Implanted:Qty : 4 on 10/11/2017 by Rosendo Nathan DO at [facility] N/A: Spine Lumbar SARAH : SPINE [id number] / / 6.5 X 50 Mm Serrate Screws Implanted:Qty : 2 on 10/11/2017 by Rosendo Nathan DO at [facility] N/A: Spine Lumbar SARAH : SPINE [id number] / / 6.5 X 45 Mm Serrate Screw Implanted:Qty : 2 on 10/11/2017 by Rosendo Nathan DO at [facility] N/A: Spine Lumbar SARAH : SPINE [id number] / / 9 X 23x 6 - 9mm Pl Implanted:Qty : 1 on 10/11/2017 by Rosendo Nathan DO at [facility] N/A: Spine Lumbar SARAH : SPINE [id number] / / Shashank Bina 3 Ti 6x40mm - [id number] Implanted:Qty : 1 on 10/11/2017 by Rosendo Nathan DO at [facility] N/A: Spine Lumbar SARAH : SPINE [id number] / / Shashank Bina 3 Ti 6x45mm - [id number] Implanted:Qty : 1 on 10/11/2017 by Rosendo Nathan DO at [facility] N/A: Spine Lumbar SARAH : SPINE [id number] / / documented as of this encounter [...] and were consensually agreed upon. Care Teams Tablet Tester Relationship Specialty Start Date End Date Myesha Cavanaugh MD [address] [place] [address] PCP - General Family Medicine 02/18/22 documented as of this encounter
--- OUTSIDE RECORDS SUMMARY | 2024-04-17 01:51 | External Medical Summary | Summary of Care ---
Author Name Unknown Organization [facility] Address [address] [facility] [address] Phone [phone] Care Team Providers Care Performance Solutions Specialist Name Role Phone Myesha Cavanaugh MD Primary Care Provid er Encounter Details Date Type Department Care Team (Late st Contact Info) Description 11/07/2023 Telephone Hematology/Oncology [facility] [place] [address] [facility] [address] Jenna Yanes CRNP [address] [place] [address] Allergies Active Allergy Reactions Criticality Noted Date Comments Amoxicillin 01/05/2017 thrush Latex 06/20/2013 Hives, rash and swelling Lisinopril 06/02/2023 COUGH Nickel Rash 12/03/2020 documented as of this encounter (statuses as of 11/07/2023) Medications Medication Sig Dispensed Refills Start Date End Date Status Spiriva Respimat 2.5 MCG/ACT Inhalation Aerosol Solution (Tiotropium [place] Monohydrate) Inhale 2 Puffs by mouth daily. [...] push patients recent CT A/P images to [facility]. Thank you. * Telephone Encounter - [...] etiology. Patient follows with Dr. Nathan with [facility] Neurosurgery. Can we please push images for his review?Patient to have revision L3-4 decompression and fusion in the near future. Patient also had CT L spine within [facility] system in September. Based on above imaging does he feel another lumbar spine MRI is needed prior to surgery? If so would he want this MRI done at [facility] or would he prefer to be doneat [facility]? Thank you! documented in this encounter Plan of Treatment Upcoming Encounters Date Type Department Care Team (Latest Contact Info) Description 01/18/2024 1:30 PM EDT Hospital Encounter ENDO [facility], Endoscopy Room [facility] [address] [place] [address] Erika Rios DO [address] [place] [address] 01/18/2024 1:30 PM EDT - 01/18/2024 2:30 PM EDT Surgery ENDO [facility], Endoscopy Room [facility] [address] [place] [address] Erika Rios DO [address] [place] [address] COLONOSCOPY FLEXIBLE PROXIMAL DIAGNOSTIC 01/23/2024 1:00 PM EDT Imaging Radiology [facility] 1st [facility] 132 [facility] [place] [address] 02/06/2024 4:30 PM EDT Laboratory Laboratory, [facility] 132 [place] [phone] [facility] [address] [facility] [address] 02/12/2024 3:30 PM EDT Office Visit Hematology/Oncolog y [facility] 200 [facility] [place] [phone] Jenna Yanes CRNP [address] [place] [address] 03/15/2024 4:00 PM EDT Office Visit Nephrology, [facility] 200 [facility] [place] [address] Chon Whitley MD 200 [facility] [place] [address] Scheduled Procedures Name Priority Associated Diagnoses Date/Ti [...] < 10) 10/26/2023 10/25/2023 Mammogram 01/18/2024 01/17/2023, 05/2023, 06/27/2013 O2 ASSESSMENT COMPLETED IN PAST [...] this encounter Medical Devices Implanted Type Area Earthmoving Labourer Device Identifier Shelf Expiration Date Model / Serial / Lot Vitoss Bimodal Foam Pack 10cc - [id number] Implanted:Qty : 2 on 10/11/2017 by Rosendo Nathan, DO at [facility] N/A: Spine Lumbar SARAH : SPINE 03/08/2019 / / [id number] Vitoss Bimodal Foam Pack 10cc - [id number] Implanted:Qty : 1 on 10/11/2017 by Rosendo Nathan, DO at [facility] N/A: Spine Lumbar SARAH : SPINE 02/05/2019 / / [id number] Screw Audie Bina 3 Ti Set - [id number] Implanted:Qty : 4 on 10/11/2017 by Rosendo Nathan, at [facility] N/A: Spine Lumbar SARAH : SPINE [id number] / / 6.5 X 50 Mm Serrate Screws Implanted:Qty : 2 on 10/11/2017 by Rosendo Nathan, at [facility] N/A: Spine Lumbar SARAH : SPINE [id number] / / 6.5 X 45 Mm Serrate Screw Implanted:Qty : 2 on 10/11/2017 by Rosendo Nathan, at [facility] N/A: Spine Lumbar SARAH : SPINE [id number] / / 9 X 23x 6 - 9mm Pl Implanted:Qty : 1 on 10/11/2017 by Rosendo Nathan, at [facility] N/A: Spine Lumbar SARAH : SPINE [id number] / / Shashank Bina 3 Ti 6x40mm - [id number] Implanted:Qty : 1 on 10/11/2017 by Rosendo Nathan DO at [facility] N/A: Spine Lumbar SARAH : SPINE [id number] / / Shashank Bina 3 Ti 6x45mm - [id number] Implanted:Qty : 1 on 10/11/2017 by Rosendo Nathan, at [facility] N/A: Spine Lumbar SARAH : SPINE [id number] / / documented as of this encounter Advance Directives Latest Code Status on File Code Status Date Activated Date Inactivated Comments Full Code 10/11/2017 9:23 AM 10/13/2017 10:36 PM This order reflects the patients wishes and were consensually agreed upon. Care Teams Performance Solutions Specialist Relationship Specialty Start Date End Date Myesha Cavanaugh MD [address] [place] [address] PCP - General Family Medicine 02/18/22 documented as of this encounter
--- OUTSIDE RECORDS SUMMARY | 2024-04-17 01:51 | External Medical Summary | Summary of Care ---
Author Name Unknown Organization [facility] Address [address] [place] [facility] [place] [place] [address] Phone [phone] Care Team Providers Care Vein Access Technician Name Role Phone Myesha Cavanaugh MD Primary Care Provid er Reason for Visit * Reason Onset Date Comments Test Results 11/03/2023 Unexpected or In determinate Result Encounter Details Date Type Department Care Team (Late st Contact Info) Description 11/03/2023 Telephone [address] 132 [facility] [place] [address] Jenna Yanes CRNP 400 [facility] [place] [address] Test Results (Unexpected or Indeterminate ... Allergies Active Allergy Reactions Criticality Noted Date Comments Amoxicillin 01/05/2017 thrush Latex 06/20/2013 Hives, rash and swelling Lisinopril 06/02/2023 COUGH Nickel Rash 12/03/2020 documented as of this encounter (statuses as of 11/03/2023) Medications Medication Sig Dispensed Refills Start Date End Date Status Spiriva Respimat 2.5 MCG/ACT Inhalation Aerosol Solution (Tiotropium [place] Monohydrate) Inhale 2 Puffs by mouth daily. [...] or chew. 90 Capsule 3 12/23/2022 Active Folic Acid 1 MG Oral TabletIndications:A bnormal blood level of iron,Microcytic anemia,Low folic acid Take 2 Tablets by mouth in the morning. 30 Tablet 11 12/26/2022 Active Additional Information Patient not taking.Reported on 09/01/2023 Mometasone Furo-Formoterol Fum 200-5 MCG/ACT Inhalation Aerosol [...] for pain. 90 Tablet 1 05/02/2023 Active Compressor NebulizerIndication s:Moderate persistent asthma [...] disorder with single episode, in full remission ([facility]) TAKE 1 TABLET BY MOUTH AT BEDTIME [...] the morning 90 Capsule 1 10/27/2023 Active documented as of this encounter (statuses as of 11/03/2023) Active Problems Problem Noted Date Diagnosed Date [...] as of this encounter (statuses as of 11/03/2023) Resolved Problems Problem Noted Date Diagnosed Date Resolved Date Food insecurity 04/19/2021 08/26/2021 Overview: Per [facility] Protocol Asthma exacerbation 03/30/2015 07/07/20 17 Moderate persistent asthma 11/09/2014 0 03/30/2015 Overview: PFT Pneumonitis 07/24/2014 01/06/2022 Asthma exacerbation 07/24/2014 03/30/20 15 documented as of this encounter (statuses as of 11/03/2023) Immunizations Name Administration Dates Next Due PPD [...] encounter Miscellaneous Notes * Telephone Encounter - Isaura Mcdermott TECH - 11/03/2023 12:18 PM EST Hello- The radiologist discovered an unexpected or indeterminate finding on Poppy Adhikari ([id number]) and asks that you review the following report. Study Type: CT ABD/PELVIS W IV AND W ORAL CONTRAST Date of Study: 10/31/2023 IMPRESSION 1. Liver and spleen unremarkable. 2. Unusual [...] could be inflammatory or infectious in etiology. Please respond to this encounter to acknowledge receipt of this message and take responsibility to ensure this report is reviewed. Thank you, REBECCA Casarez Client Service Rep Diagnostic Medicine [place] documented in this encounter Plan of Treatment Upcoming Encounters Date Type Department Care Team (Latest Contact Info) Description 11/06/2023 3:00 PM EST Office Visit Hematology/Oncology [facility] [place] [address] [facility] [phone] Jenna Yanes CRNP [address] [place] [address] [place] [address] 01/18/2024 1:30 PM EDT Hospital Encounter ENDO OSSC, Endoscopy Room [facility] [address] [place] [phone] Erika Rios DO [address] [place] [address] 01/18/2024 1:30 PM EDT - 01/18/2024 2:30 PM EDT Surgery ENDO [facility], Endoscopy Room [facility] [address] [place] [phone] Erika Rios, [address] [place] [address] COLONOSCOPY FLEXIBLE PROXIMAL DIAGNOSTIC 01/23/2024 1:00 PM EDT Imaging Radiology [address], [place] [address] [place] [address] 03/15/2024 4:00 PM EDT Office Visit Nephrology, [facility] [address] [place] [address] Chon Whitley MD [address] [place] [address] Scheduled Procedures Name Priority Associated Diagnoses Date/Ti [...] this encounter Medical Devices Implanted Type Area Rawhide Bone Roller Device Identifier Shelf Expiration Date Model / Serial / Lot Vitoss Bimodal Foam Pack 10cc - [id number] Implanted:Qty : 2 on 10/11/2017 by Rosendo Nathan, DO at [facility] N/A: Spine Lumbar SARAH : SPINE 03/08/2019 / / [id number] Vitoss Bimodal Foam Pack 10cc - [id number] Implanted:Qty : 1 on 10/11/2017 by Rosendo Nathan, DO at [facility] N/A: Spine Lumbar SARAH : SPINE 02/05/2019 / / [id number] Screw Audie Bina 3 Ti Set - [id number] Implanted:Qty : 4 on 10/11/2017 by Rosendo Nathan DO at [facility] N/A: Spine Lumbar SARAH : SPINE [id number] / / 6.5 X 50 Mm Serrate Screws Implanted:Qty : 2 on 10/11/2017 by Rosendo Nathna, DO at [facility] N/A: Spine Lumbar SARAH : SPINE [id number] / / 6.5 X 45 Mm Serrate Screw Implanted:Qty : 2 on 10/11/2017 by Rosendo Nathan DO at [facility] N/A: Spine Lumbar SARAH : SPINE [id number] / / 9 X 23x 6 - 9mm Pl Implanted:Qty : 1 on 10/11/2017 by Rosendo Nathan DO at [facility] N/A: Spine Lumbar SARAH : SPINE [id number] / / Shashank Bina 3 Ti 6x40mm - [id number] Implanted:Qty : 1 on 10/11/2017 by Rosendo Nathan DO at [facility] N/A: Spine Lumbar SARAH : SPINE [id number] / / Shashank Bina 3 Ti 6x45mm - [id number] Implanted:Qty : 1 on 10/11/2017 by Rosendo Nathan DO at [facility] N/A: Spine Lumbar SARAH : SPINE [id number] / / documented as of this encounter Advance Directives Latest Code Status on File Code Status Date Activated Date Inactivated Comments Full Code 10/11/2017 9:23 AM 10/13/2017 10:36 PM This order reflects the patients wishes and were consensually agreed upon. Care Teams Vein Access Technician Relationship Specialty Start Date End Date Myesha Cavanaugh MD [address] [place] [address] PCP - General Family Medicine 02/18/22 documented as of this encounter
--- OUTSIDE RECORDS SUMMARY | 2024-04-17 01:51 | External Medical Summary | Summary of Care ---
Author Name Unknown Organization [facility] Address [address] [facility] [address] Phone [phone] Care Team Providers Care Livestock Commission Agent Name Role Phone Myesha Cavanaugh MD Primary Care Provid er Encounter Details Date Type Department Care Team (Late st Contact Info) Description 11/07/2023 Telephone Hematology/Oncology [facility] [place] [address] [facility] [address] Jenna Yanes CRNP [address] [place] [address] Allergies Active Allergy Reactions Criticality Noted Date Comments Amoxicillin 01/05/2017 thrush Latex 06/20/2013 Hives, rash and swelling Lisinopril 06/02/2023 COUGH Nickel Rash 12/03/2020 documented as of this encounter (statuses as of 11/07/2023) Medications Medication Sig Dispensed Refills Start Date End Date Status Spiriva Respimat 2.5 MCG/ACT Inhalation Aerosol Solution (Tiotropium [place] Monohydrate) Inhale 2 Puffs by mouth daily. [...] push patients recent CT A/P images to [facility]. Thank you. * Telephone Encounter - [...] etiology. Patient follows with Dr. Nathan with [facility] Neurosurgery. Can we please push images for his review?Patient to have revision L3-4 decompression and fusion in the near future. Patient also had CT L spine within [facility] system in September. Based on above imaging does he feel another lumbar spine MRI is needed prior to surgery? If so would he want this MRI done at [facility] or would he prefer to be doneat [facility]? Thank you! documented in this encounter Plan of Treatment Upcoming Encounters Date Type Department Care Team (Latest Contact Info) Description 01/18/2024 1:30 PM EDT Hospital Encounter ENDO OSSC, Endoscopy Room [facility] [address] [place] [phone] Erika Rios DO [address] [place] [address] 01/18/2024 1:30 PM EDT - 01/18/2024 2:30 PM EDT Surgery ENDO OSSC, Endoscopy Room [facility] [address] [place] [phone] Erika Rios DO [address] [place] [address] COLONOSCOPY FLEXIBLE PROXIMAL DIAGNOSTIC 01/23/2024 1:00 PM EDT Imaging Radiology [facility] 1st [facility] 132 [facility] [place] [address] 02/06/2024 4:30 PM EDT Laboratory Laboratory, [facility] 132 [place] [phone] [facility] 132 [facility] [address] 02/12/2024 3:30 PM EDT Office Visit Hematology/Oncolog y [facility] 200 [facility] [place] [phone] Jenna Yanes CRNP [address] [place] [address] 03/15/2024 4:00 PM EDT Office Visit Nephrology, [facility] 200 [facility] [place] [address] Chon Whitley MD 200 [facility] [place] [address] Scheduled Procedures Name Priority Associated Diagnoses Date/Ti [...] this encounter Medical Devices Implanted Type Area Parcel Post Delivery Device Identifier Shelf Expiration Date Model / Serial / Lot Vitoss Bimodal Foam Pack 10cc - [id number] Implanted:Qty : 2 on 10/11/2017 by Rosendo Nathan, DO at [facility] N/A: Spine Lumbar SARAH : SPINE 03/08/2019 / / [id number] Vitoss Bimodal Foam Pack 10cc - [id number] Implanted:Qty : 1 on 10/11/2017 by Rosendo Nathan, DO at [facility] N/A: Spine Lumbar SARAH : SPINE 02/05/2019 / / [id number] Screw Audie Bina 3 Ti Set - [id number] Implanted:Qty : 4 on 10/11/2017 by Rosendo Nathan, at [facility] N/A: Spine Lumbar SARAH : SPINE [id number] / / 6.5 X 50 Mm Serrate Screws Implanted:Qty : 2 on 10/11/2017 by Rosendo Nathan, at [facility] N/A: Spine Lumbar SARAH : SPINE [id number] / / 6.5 X 45 Mm Serrate Screw Implanted:Qty : 2 on 10/11/2017 by Rosendo Nathan, at [facility] N/A: Spine Lumbar SARAH : SPINE [id number] / / 9 X 23x 6 - 9mm Pl Implanted:Qty : 1 on 10/11/2017 by Rosendo Nathan, at [facility] N/A: Spine Lumbar SARAH : SPINE [id number] / / Shashank Bina 3 Ti 6x40mm - [id number] Implanted:Qty : 1 on 10/11/2017 by Rosendo Nathan DO at [facility] N/A: Spine Lumbar SARAH : SPINE [id number] / / Shashank Bina 3 Ti 6x45mm - [id number] Implanted:Qty : 1 on 10/11/2017 by Rosendo Nathan, at [facility] N/A: Spine Lumbar SARAH : SPINE [id number] / / documented as of this encounter Advance Directives Latest Code Status on File Code Status Date Activated Date Inactivated Comments Full Code 10/11/2017 9:23 AM 10/13/2017 10:36 PM This order reflects the patients wishes and were consensually agreed upon. Care Teams Livestock Commission Agent Relationship Specialty Start Date End Date Myesha Cavanaugh MD [address] [place] [address] PCP - General Family Medicine 02/18/22 documented as of this encounter
--- OUTSIDE RECORDS SUMMARY | 2024-04-17 01:51 | External Medical Summary | Summary of Care ---
Author Name Unknown Organization [facility] Address [address] [facility] [address] Phone [phone] Care Team Providers Care Mortuary Technician Name Role Phone Myesha Cavanaugh MD Primary Care Provid er Reason for Visit * Reason Onset Date Comments Appointment 11/07/2023 Encounter Details Date Type Department Care Team (Late st Contact Info) Description 11/07/2023 Telephone Hematology/Oncology [facility] [place] [address] [facility] [address] Jenna Yanes CRNP 400 [place] [address] Appointment Allergies Active Allergy Reactions Criticality Noted Date Comments Amoxicillin 01/05/2017 thrush Latex 06/20/2013 Hives, rash and swelling Lisinopril 06/02/2023 COUGH Nickel Rash 12/03/2020 documented as of this encounter (statuses as of 11/07/2023) Medications Medication Sig Dispensed Refills Start Date End Date Status Spiriva Respimat 2.5 MCG/ACT Inhalation Aerosol Solution (Tiotropium [place] Monohydrate) Inhale 2 Puffs by mouth daily. [...] 01/18/2024 1:30 PM EDT Hospital Encounter ENDO [facility], Endoscopy Room [facility] [address] [place] [phone] Erika Rios DO [address] [place] [address] 01/18/2024 1:30 PM EDT - 01/18/2024 2:30 PM EDT Surgery ENDO [facility], Endoscopy Room [facility] [address] [place] [phone] Erika Rios DO [address] [place] [address] COLONOSCOPY FLEXIBLE PROXIMAL DIAGNOSTIC 01/23/2024 1:00 PM EDT Imaging Radiology [facility] 1st [facility] [address] [place] [address] 02/06/2024 4:30 PM EDT Laboratory Laboratory, [facility] [address] [place] [phone] [facility] [address] [place] [address] 02/12/2024 3:30 PM EDT Office Visit [facility]ology[facility]olog [facility] [place] 200 [facility] [place], [place] [address] Jenna Yanes CRNP 400 [facility] [place] [address] 03/15/2024 4:00 PM EDT Office Visit Nephrology, [facility] 200 [facility] [place], [place] [address] Chon Whitley MD 200 [facility] [place], [place] [address] Scheduled Procedures Name Priority Associated Diagnoses Date/Ti [...] this encounter Medical Devices Implanted Type Area Glass Glazier Device Identifier Shelf Expiration Date Model / Serial / Lot Vitoss Bimodal Foam Pack 10cc - [id number] Implanted:Qty : 2 on 10/11/2017 by Rosendo Nathan DO at [facility] N/A: Spine Lumbar SARAH : SPINE 03/08/[id number] / / [id number] Vitoss Bimodal Foam Pack 10cc - [id number] Implanted:Qty : 1 on 10/11/2017 by Rosendo Nathan DO at [facility] N/A: Spine Lumbar SARAH : SPINE 02/05/[id number] / / [id number] Screw Audie Bina 3 Ti Set - [id number] Implanted:Qty : 4 on 10/11/2017 by Rosendo Nathan DO at [facility] N/A: Spine Lumbar SARAH : SPINE [id number] / / 6.5 X 50 Mm Serrate Screws Implanted:Qty : 2 on 10/11/2017 by Rosendo Nathan DO at [facility] N/A: Spine Lumbar SARAH : SPINE [id number] / / 6.5 X 45 Mm Serrate Screw Implanted:Qty : 2 on 10/11/2017 by Rosendo Nathan DO at [facility] N/A: Spine Lumbar SARAH : SPINE [id number] / / 9 X 23x 6 - 9mm Pl Implanted:Qty : 1 on 10/11/2017 by Rosendo Nathan, DO at [facility] N/A: Spine Lumbar SARAH : SPINE [id number] / / Shashank Bina 3 Ti 6x40mm - [id number] Implanted:Qty : 1 on 10/11/2017 by Rosendo Nathan, DO at [facility] N/A: Spine Lumbar SARAH : SPINE [id number] / / Shashank Bina 3 Ti 6x45mm - [id number] Implanted:Qty : 1 on 10/11/2017 by Rosendo Nathan, DO at [facility] N/A: Spine Lumbar SARAH : SPINE [id number] / / documented as of this encounter Advance Directives Latest Code Status on File Code Status Date Activated Date Inactivated Comments Full Code 10/11/2017 9:23 AM 10/13/2017 10:36 PM This order reflects the patients wishes and were consensually agreed upon. Care Teams Mortuary Technician Relationship Specialty Start Date End Date Myesha Cavanaugh MD [address] [place] [facility] [place] [address] PCP - General Family Medicine 02/18/22 documented as of this encounter
--- OUTSIDE RECORDS SUMMARY | 2024-04-17 01:51 | External Medical Summary | Summary of Care ---
Author Name Unknown Organization [facility] Address [address] [facility] [address] Phone [phone] Care Team Providers Care Car Body Inspector Name Role Phone Myesha Cavanaugh MD Primary Care Provid er Reason for Visit * Reason Onset Date Comments Appointment 11/07/2023 Encounter Details Date Type Department Care Team (Late st Contact Info) Description 11/07/2023 Telephone Hematology/Oncology [facility] [place] [address] [facility] [phone] Jenna Yanes CRNP [address] [place] [id number] Appointment Allergies Active Allergy Reactions Criticality Noted Date Comments Amoxicillin 01/05/2017 thrush Latex 06/20/2013 Hives, rash and swelling Lisinopril 06/02/2023 COUGH Nickel Rash 12/03/2020 documented as of this encounter (statuses as of 11/07/2023) Medications Medication Sig Dispensed Refills Start Date End Date Status Spiriva Respimat 2.5 MCG/ACT Inhalation Aerosol Solution (Tiotropium [place] Monohydrate) Inhale 2 Puffs by mouth daily. [...] Ocampo OSA - 11/07/2023 11:27 AM EST Left message for pt. * Addendum Note - Omid Keenan MD [...] Endoscopy Room [facility] [address] [place] [phone] Erika Rios DO [address] [place] [address] 01/18/2024 1:30 PM EDT - 01/18/2024 2:30 PM EDT Surgery ENDO [facility], Endoscopy Room [facility] [address] [place], [place] [phone] Erika Rios DO [address] [place], [place] [address] COLONOSCOPY FLEXIBLE PROXIMAL DIAGNOSTIC 01/23/2024 1:00 PM EDT Imaging Radiology [facility] 1st [facility] [address] [place] [address] 02/06/2024 4:30 PM EDT Laboratory Laboratory, [facility] [address] [facility] [place] [phone] [facility] [address] [facility] [place] [address] 02/12/2024 3:30 PM EDT Office Visit Hematology[facility]olog [facility] [address] [facility] [place], [place] [phone] Jenna Yanes CRNP [address] [facility] [address] 03/15/2024 4:00 PM EDT Office Visit Nephrology, [facility] [address] [place], [place] [address] Chon Whitley MD [address] [facility] [place], [place] [address] Scheduled Orders Name Type Priority Associated Diagnoses [...] < 10) 10/26/2023 10/25/2023 Mammogram 01/18/2024 01/17/2023, 05/05/2023, 06/27/2013 O2 ASSESSMENT COMPLETED IN PAST YEAR [...] encounter Medical Devices Implanted Type Area Automatic Mold Sander Device Identifier Shelf Expiration Date Model / Serial / Lot Vitoss Bimodal Foam Pack 10cc - [id number] Implanted:Qty : 2 on 10/11/2017 by Rosendo Nathan, DO at [facility] N/A: Spine Lumbar SARAH : SPINE 03/08/2019 / / [id number] Vitoss Bimodal Foam Pack 10cc - [id number] Implanted:Qty : 1 on 10/11/2017 by Rosendo Nathan DO at [facility] N/A: Spine Lumbar SARAH : SPINE 02/05/2019 / / [id number] Screw Audie Bina 3 Ti Set - [id number] Implanted:Qty : 4 on 10/11/2017 by Rosendo Nathan DO at [facility] N/A: Spine Lumbar SARAH : SPINE [id number] / / 6.5 X 50 Mm Serrate Screws Implanted:Qty : 2 on 10/11/2017 by Rosendo Nathan DO at [facility] N/A: Spine Lumbar SARAH : SPINE [id number] / / 6.5 X 45 Mm Serrate Screw Implanted:Qty : 2 on 10/11/2017 by Rosendo Nathan DO at [facility] N/A: Spine Lumbar SARAH : SPINE [id number] / / 9 X 23x 6 - 9mm Pl Implanted:Qty : 1 on 10/11/2017 by Rosendo Nathan DO at [facility] N/A: Spine Lumbar SARAH : SPINE [id number] / / Shashank Bina 3 Ti 6x40mm - [id number] Implanted:Qty : 1 on 10/11/2017 by Rosendo Nathan DO at [facility] N/A: Spine Lumbar SARAH : SPINE [id number] / / Shashank Bina 3 Ti 6x45mm - [id number] Implanted:Qty : 1 on 10/11/2017 by Rosendo Nathan DO at [facility] N/A: Spine Lumbar SARAH : SPINE [id number] / / documented as of this encounter [...] were consensually agreed upon. Care Teams Car Body Inspector Relationship Specialty Start Date End Date Myesha Cavanaugh MD [address] [place] [address] PCP - General Family Medicine 02/18/22 documented as of this encounter
--- OUTSIDE RECORDS SUMMARY | 2024-04-17 01:51 | External Medical Summary | Summary of Care ---
Author Name Unknown Organization [facility] Address [address] [facility] [address] Phone [phone] Care Team Providers Care Food Preservation Scientist Name Role Phone Myesha Cavanaugh MD Primary Care Provid er Reason for Visit * Reason Onset Date Comments Appointment 11/07/2023 Encounter Details Date Type Department Care Team (Late st Contact Info) Description 11/07/2023 Telephone Hematology/Oncology [facility] [place] [address] [facility] [phone] Jenna Yanes CRNP 400 [place] [address] Appointment Allergies Active Allergy Reactions Criticality Noted Date Comments Amoxicillin 01/05/2017 thrush Latex 06/20/2013 Hives, rash and swelling Lisinopril 06/02/2023 COUGH Nickel Rash 12/03/2020 documented as of this encounter (statuses as of 11/07/2023) Medications Medication Sig Dispensed Refills Start Date End Date Status Spiriva Respimat 2.5 MCG/ACT Inhalation Aerosol Solution (Tiotropium [place] Monohydrate) Inhale 2 Puffs by mouth daily. [...] Miscellaneous Notes * Telephone Encounter - Bere Goldsmith OSA [...] 01/18/2024 1:30 PM EDT [facility] [address] [place] [phone] Erika Rios, [address] [place] [address] 01/18/2024 1:30 PM EDT - 01/18/2024 2:30 PM EDT Surgery ENDO [facility], Endoscopy Room [facility] [address] [place] [phone] Erika Rios DO [address] [place] [address] COLONOSCOPY FLEXIBLE PROXIMAL DIAGNOSTIC 01/23/2024 1:00 PM EDT Imaging Radiology [facility] 1st [facility] [address] [place] [address] 02/06/2024 4:30 PM EDT Laboratory Laboratory, [facility] [address] [facility] [place] [phone] [facility] [address] [facility] [place] [address] 02/12/2024 3:30 PM EDT Office Visit Hematology/Oncolog y [facility] 200 [facility] [place] [phone] Jenna Yanes CRNP [address] [place] [address] [place] [address] 03/15/2024 4:00 PM EDT Office Visit Nephrology, [facility] 200 [place] [address] Chon Whitley MD [address] [place], [place] [address] Scheduled Procedures Name Priority Associated Diagnoses Date/Ti [...] this encounter Medical Devices Implanted Type Area Newcomer Hostess Device Identifier Shelf Expiration Date Model / Serial / Lot Vitoss Bimodal Foam Pack 10cc - [id number] Implanted:Qty : 2 on 10/11/2017 by Rosendo Nathan DO at [facility] N/A: Spine Lumbar SARAH : SPINE 03/08/2019 / / [id number] Vitoss Bimodal Foam Pack 10cc - [id number] Implanted:Qty : 1 on 10/11/2017 by Rosendo Nathan DO at [facility] N/A: Spine Lumbar SARAH : SPINE 02/05/2019 / / [id number] Screw Audie Bina 3 Ti Set - [id number] Implanted:Qty : 4 on 10/11/2017 by Rosendo Nathan DO at [facility] N/A: Spine Lumbar SARAH : SPINE [id number] / / 6.5 X 50 Mm Serrate Screws Implanted:Qty : 2 on 10/11/2017 by Rosendo Nathan DO at [facility] N/A: Spine Lumbar SARAH : SPINE [id number] / / 6.5 X 45 Mm Serrate Screw Implanted:Qty : 2 on 10/11/2017 by Rosendo Nathan DO at [facility] N/A: Spine Lumbar SARAH : SPINE [id number] / / 9 X 23x 6 - 9mm Pl Implanted:Qty : 1 on 10/11/2017 by Rosendo Nathan DO at [facility] N/A: Spine Lumbar SARAH : SPINE [id number] / / Shashank Bina 3 Ti 6x40mm - [id number] Implanted:Qty : 1 on 10/11/2017 by Rosendo Nathan DO at [facility] N/A: Spine Lumbar SARAH : SPINE [id number] / / Shashank Bina 3 Ti 6x45mm - [id number] Implanted:Qty : 1 on 10/11/2017 by Rosendo Nathan DO at [facility] N/A: Spine Lumbar SARAH : SPINE [id number] / / documented as of this encounter Advance Directives Latest Code Status on File Code Status Date Activated Date Inactivated Comments Full Code 10/11/2017 9:23 AM 10/13/2017 10:36 PM This order reflects the patients wishes and were consensually agreed upon. Care Teams Food Preservation Scientist Relationship Specialty Start Date End Date Myesha Cavanaugh MD [address] [facility] [place], [place] [phone] PCP - General Family Medicine 02/18/22 documented as of this encounter
--- OUTSIDE RECORDS SUMMARY | 2024-04-17 01:51 | External Medical Summary | Summary of Care ---
Author Name Unknown Organization [facility] Address [address] [facility] [place] [address] Phone [phone] Care Team Providers Care Gliding Pilot Instructor Name Role Phone Олег Cavanaugh MD Primary Care Provid er Reason for Referral * Medication Prior Authorization - Pending Review Specialty Diagnoses / Procedures Referred By Contac t Referred To Contact Diagnoses History of lumbar fusion Spinal stenosis of lumbar region with neurogenic claudication Lumbar radiculitis Sacroiliac joint pain Олег Cavanaugh MD [address] [place] [address] Referral ID Status Reason Start Date Expiration Date V isits Requested Visits Authorized [id number] Pending Review 999 999 Reason for Visit * Reason Onset Date Comments Medication Refill 11/07/2023 Encounter Details Date Type Department Care Team (Late st Contact Info) Description 11/07/2023 Refill [facility] [address] [place] [facility] [place] [phone] Олег Cavanaugh MD [address] [place] [address] History of lumbar fusion; Spinal stenosis of lumbar region with neurogenic claudication; Lumbar radiculitis; Sacroiliac joint pain Allergies Active Allergy Reactions Criticality Noted Date Comments Amoxicillin 01/05/2017 thrush Latex 06/20/2013 Hives, rash and swelling Lisinopril 06/02/2023 COUGH Nickel Rash 12/03/2020 documented as of this encounter (statuses as of 11/07/2023) Medications Medication Sig Dispensed Refills Start Date End Date Status Spiriva Respimat 2.5 MCG/ACT Inhalation Aerosol Solution (Tiotropium [place] Monohydrate) Inhale 2 Puffs by mouth daily. [...] needed for Pain, Severe.Authorizing Provider: ОЛЕГ CAVANAUGH CHE * Telephone Encounter - Олег Cavanaugh MD - 11/07/2023 5:02 PM EST Nursing - Please fax letter to Dr. Nathan I just generated - thanks Script signed * Telephone Encounter - Mandy Hurt [facility] - 11/07/2023 1:30 PM ESTPending Prescriptions: Disp Refills HYDROcodone-Acetaminophen 7.5-325 MG Oral *90 Tab*0 Sig: Take 1 Tablet by mouth every 8 hours as needed for Pain, Severe. * Telephone Encounter - Mandy Hurt [facility] - 11/07/2023 1:29 PM EST I have reviewed the patients controlled substance dispensing history in the Prescription Drug Monitoring Program in compliance with the [facility] regulations before prescribing a controlled substance. PDMP checked on 11/07/2023. Pending Prescriptions: Disp Refills HYDROcodone-Acetaminophen 7.5-325 MG Oral*90 Tab*0 Sig: Take 1 Tablet by mouth every 8 hours as needed for Pain, Severe. Last Visit: 09/01/2023 (in office), 10/16/2023 (telemedicine) Next Visit: Visit date not found Date medication was last filled: 10/09/23 Date medication is due for refill: 11/07/23 [facility] [address] [place] [address] CARMELA THURSTON Is this request for a controlled substance? Yes and Urine Drug Screen Not completed Toxicology results: No results found for this or any previous visit. Please approve if appropriate. Thank You, Mandy Hurt [facility] Clinical Pharmacist [facility] ([facility]) (formerly Telepharmacy) [phone] 11/07/2023, 1:29 PM * Telephone Encounter - Dasia Bond equipment operat0r - 11/07/2023 1:11 PM EST Pt requesting HIGH PRIORITY due to being out of medication. Did you pend patient's preferred pharmacy and medication before forwarding?yes [facility] [address] [place] [address] Abel THURSTON Pending Prescriptions: Disp Refills HYDROcodone-Acetaminophen 7.5-325 MG [...] was the last refill date 09/22/2023 w/ [email or web address] and dosage 7.5-325 mg and Urine Drug [...] [facility], Endoscopy Room [facility] [address] [place] [phone] Erika Rios DO [address] [place] [address] 01/18/2024 1:30 PM EDT - 01/18/2024 2:30 PM EDT Surgery ENDO [facility], Endoscopy Room [facility] [address] [place] [phone] Erika Rios DO 132 [facility] [place] [address] COLONOSCOPY FLEXIBLE PROXIMAL DIAGNOSTIC 01/23/2024 1:00 PM EDT Imaging Radiology [facility] 1st [facility] 132 [facility] [place] [address] 02/06/2024 4:30 PM EDT Laboratory Laboratory, [facility] [address] [place] [phone] [facility] [address] [place] [address] 02/12/2024 3:30 PM EDT Office Visit Hematology/Oncolog y [facility] [address] [facility] [place] [phone] Jenna Yanes CRNP [address] [place] [address] 03/15/2024 4:00 PM EDT Office Visit Nephrology, [facility] [address] [facility] [place] [address] Chon Whitley MD 200 [facility] [place] [address] Scheduled Procedures Name Priority Associated Diagnoses Date/Ti [...] 10/26/2023 10/25/2023 Mammogram 01/18/2024 01/17/2023, 05/2023, 06/27/2013 GFR 10/31/2024 [...] this encounter Medical Devices Implanted Type Area Dandy Operator Device Identifier Shelf Expiration Date Model / Serial / Lot Vitoss Bimodal Foam Pack 10cc - [id number] Implanted:Qty : 2 on 10/11/2017 by Rosendo Nathan, DO at [facility] N/A: Spine Lumbar SARAH : SPINE 03/08/2019 / / [id number] Vitoss Bimodal Foam Pack 10cc - [id number] Implanted:Qty : 1 on 10/11/2017 by Rosendo Nathan, DO at [facility] N/A: Spine Lumbar SARAH : SPINE 02/05/2019 / / [id number] Screw Audie Bina 3 Ti Set - [id number] Implanted:Qty : 4 on 10/11/2017 by Rosendo Nathan, at [facility] N/A: Spine Lumbar SARAH : SPINE [id number] / / 6.5 X 50 Mm Serrate Screws Implanted:Qty : 2 on 10/11/2017 by Rosendo Nathan, at [facility] N/A: Spine Lumbar SARAH : SPINE [id number] / / 6.5 X 45 Mm Serrate Screw Implanted:Qty : 2 on 10/11/2017 by Rosendo Nathan, at [facility] N/A: Spine Lumbar SARAH : SPINE [id number] / / 9 X 23x 6 - 9mm Pl Implanted:Qty : 1 on 10/11/2017 by Rosendo Nathan DO at [facility] N/A: Spine Lumbar SARAH : SPINE [id number] / / Shashank Bina 3 Ti 6x40mm - [id number] Implanted:Qty : 1 on 10/11/2017 by Rosendo Nathan DO at [facility] N/A: Spine Lumbar SARAH : SPINE [id number] / / Shashank Bina 3 Ti 6x45mm - [id number] Implanted:Qty : 1 on 10/11/2017 by Rosendo Nathan, at [facility] N/A: Spine Lumbar SAARH : SPINE [id number] / / documented as of this encounter [...] and were consensually agreed upon. Care Teams Gliding Pilot Instructor Relationship Specialty Start Date End Date Олег Cavanaugh MD [address] [place] [address] PCP - General Family Medicine 02/18/22 documented as of this encounter
--- OUTSIDE RECORDS SUMMARY | 2024-04-17 01:52 | External Medical Summary | Summary of Care ---
Author Name Unknown Organization [facility] Address [address] [facility] [address] Phone [phone] Care Team Providers Care Supervisor Fur Dressing Name Role Phone Myesha Cavanaugh MD Primary Care Provid er Reason for Visit * Reason Onset Date Comments Test Results Lab 10/27/2023 Encounter Details Date Type Department Care Team (Late st Contact Info) Description 10/27/2023 Telephone Hematology/Oncology [facility] [place] [address] [facility] [place] [address] Jenna Yanes CRNP [address] [place] [address] Test Results Lab Allergies Active Allergy Reactions Criticality Noted Date Comments Amoxicillin 01/05/2017 thrush Latex 06/20/2013 Hives, rash and swelling Lisinopril 06/02/2023 COUGH Nickel Rash 12/03/2020 documented as of this encounter (statuses as of 10/30/2023) Medications Medication Sig Dispensed Refills Start Date End Date Status Spiriva Respimat 2.5 MCG/ACT Inhalation Aerosol Solution (Tiotropium [place] Monohydrate) Inhale 2 Puffs by mouth daily. [...] 12/23/2022 Active Folic Acid 1 MG Oral TabletIndications :Abnormal blood level of iron,Microcytic anemia,Low folic acid [...] pain. 90 Tablet 1 05/02/2023 Active Compressor NebulizerIndicati ons:Moderate persistent asthma [...] Additional Information Patient not taking.Reported on 09/26/2023 HYDROcodone-Aceta minophen 7.5-325 MG Oral TabletIndications :History of lumbar fusion,Spinal stenosis of lumbar region with neurogenic claudication,Lumb ar radiculitis,Sacro iliac joint pain Take 1 Tablet by mouth every 8 hours as needed for Pain, Severe. Do not start before September 22, 2023. 90 Tablet 0 09/22/2023 Active Pregabalin 150 MG Oral Capsule (Lyrica)Indicatio [...] mouth in the morning. 90 Capsule 1 05/02/2023 10/27/19 24 Discontinued documented as of this encounter (statuses as of 10/30/2023) Active Problems Problem Noted Date Diagnosed Date [...] as of this encounter (statuses as of 10/30/2023) Resolved Problems Problem Noted Date Diagnosed Date Resolved Date Food insecurity 04/19/2021 08/26/2021 Overview: Per [facility] Protocol Asthma exacerbation 03/30/2015 07/07/20 17 Moderate persistent asthma 11/09/2014 0 03/30/2015 Overview: PFT Pneumonitis 07/24/2014 01/06/2022 Asthma exacerbation 07/24/2014 03/30/20 15 documented as of this encounter (statuses as of 10/30/2023) Immunizations Name Administration Dates Next Due PPD [...] encounter Miscellaneous Notes * Telephone Encounter - Echo Jenkins OSA - 10/30/2023 12:20 PM EST Poppy called you back Please call her again thank you * Telephone Encounter - Yady Puga RN - 10/30/2023 8:35 AM EST Left additional message requesting return call. Called Hasmukh. He states that patient is probably still in bed, but he will be seeing her at lunchtime so will ask her to call us back. * Telephone Encounter - Chon Whitley MD - 10/27/2023 2:32 PM EST She was taking lot of meloxicam. Would need to make sure she has not taking it. Also her fluid intake and beer intake was massive. Would drink no more than 60 oz per day and make sure to stop meloxicam or any other NSAIDs * Telephone Encounter - Bear Momin RN - 10/27/2023 10:59 AM EST Called patient, no answer, LMOM with return #. Tried calling patients emergency contact as well, no answer, did not leave VM. * Telephone Encounter - Jenna Yanes CRNP - 10/27/2023 10:20 AM EST Results for orders placed or performed in visit on 10/25/23 COMPREHENSIVE METABOLIC PANEL Result Value Ref Range BUN 11 6 - 20 mg/dL Creatinine 1.3 (H) 0.5 - 1.0 mg/dL Estimated Glomerular Filtration Rate 48 (L) >=60 mL/min Sodium 125 (L) 135 - 146 mmol/L Potassium 3.2 (L) 3.5 - 5.1 mmol/L Chloride 87 (L) 98 - 107 mmol/L CO2 21 (L) 22 - 32 mmol/L Anion Gap 17 (H) 7 - 15 mmol/L Glucose 119 70 - 120 mg/dL Albumin 3.9 3.8 - 5.0 g/dL AST 149 (H) 10 - 35 U/L Alkaline Phosphatase 138 (H) 35 - 130 U/L Bilirubin, Total 0.4 <=1.2 mg/dL Calcium 9.5 8.4 - 10.2 mg/dL Protein 6.2 6.0 - 8.3 g/dL ALT 140 (H) 10 - 35 U/L FERRITIN Result Value Ref Range Ferritin 1,667 (H) 13 - 150 ng/mL IRON SCREEN, INCLUDING TIBC Result Value Ref Range Iron 50 33 - 151 ug/dL Iron Binding Capacity 184 (L) 250 - 425 ug/dL Transferrin Saturation Percent 27 15 - 55 % CBC Result Value Ref Range WBC 14.35 (H) 4.00 - 10.80 K/uL RBC 2.85 3.85 - 5.15 M/uL HGB 9.8 (L) 12.0 - 15.3 g/dL HCT 26.2 (L) 36.0 - 45.2 % MCV 91.9 81.5 - 97.5 fL MCH 34.4 27.0 - 34.0 pg MCHC 37.4 32.0 - 36.0 g/dL RDW 12.9 11.5 - 15.5 % PLT 296 140 - 400 K/uL MPV 10.0 6.6 - 11.1 fL DIFFERENTIAL, AUTOMATED Result Value Ref Range WBC 14.35 (H) 4.00 - 10.80 K/uL Neutrophils % 82.1 (H) 40.0 - 75.0 % Lymphocytes % 9.0 (L) 18.0 - 42.0 % Monocytes % 8.7 1.0 - 11.0 % Eosinophils % 0.1 0.0 - 6.0 % Basophils % 0.1 0.0 - 2.0 % Absolute Neutrophils 11.78 (H) 1.80 - 7.70 K/uL Absolute Lymphocytes 1.29 1.00 - 4.80 K/ul Absolute Monocytes 1.25 (H) 0.00 - 1.10 K/uL Absolute Eosinophils 0.02 0.00 - 0.70 K/uL Absolute Basophils 0.01 0.00 - 0.20 K/uL DIFFERENTIAL, TECHNOLOGIST REVIEW Result Value Ref Range nRBCs Attempted to call patient regarding above lab work and to assess how she is feeling. No answer. Nursing: can you please attempt to contact patient again? Any symptoms of an acute illness? Has there been an increase in her alcohol intake? Lab work showing significant increase in LFTs, moderate hyponatremia along her hypokalemia. Would like patient to repeat CBCd and CMP today. If patient is acutely ill may need to consider presenting to the ED. TONYA Cavanaugh, Dr. Rios and Dr. Whitley. Any further recommendations? documented in this encounter Plan of Treatment Upcoming Encounters Date Type Department Care Team (Latest Contact Info) Description 10/31/2023 11:00 AM EST Imaging Radiology [address] [place] [address] 11/06/2023 3:00 PM EST Office Visit Hematology/Oncology [facility] [address] [place] [phone] Jenna Yanes CRNP [address] [place], [place] [address] [address] 01/18/2024 1:30 PM EDT Hospital Encounter ENDO [facility], Endoscopy Room [facility] [address] [place] [phone] Erika Rios DO [address] [place] [address] 01/18/2024 1:30 PM EDT - 01/18/2024 2:30 PM EDT Surgery ENDO [facility], Endoscopy Room [facility] [address] [place] [phone] Erika Rios DO [address] [place] [address] COLONOSCOPY FLEXIBLE PROXIMAL DIAGNOSTIC 01/23/2024 1:00 PM EDT Imaging Radiology [address] [place] [address] 03/15/2024 4:00 PM EDT Office Visit Nephrology, [facility] [address] [facility] [place] [address] Chon Whitley MD [address] [facility] [place], [place] [address] Scheduled Orders Name Type Priority Associated Diagnoses Orde r Schedule CBC WITH WBC DIFFERENTIAL Lab STAT Alcohol use disorder, severe, in early remission (HCC) Expected: 10/27/2023 (Approximate), Expires: 01/26/2024 COMPREHENSIVE METABOLIC PANEL Lab STAT Alcohol use disorder, severe, in early remission (HCC) Expected: 10/27/2023 (Approximate), Expires: 01/26/2024 Scheduled Procedures Name Priority Associated Diagnoses Date/Ti [...] PAST YEAR FOR COPD 09/01/2024 09/01/2023 GFR 10/25/2024 10/25/2023, 09/11, 09/01/2023, Additional history exists Albumin/Creatinine Ratio 09/01/2026 09/01/2023 Lipid Panel 05/11/2027 05/11/2022 Colonoscopy 09/27/2033 09/27/2023 Colorectal Cancer Screening 09/27/2033 GARDASIL-HPV IMMUNIZATION SERIES Aged Out No longer eligible based on patient's age to complete this topic MENINGOCOCCAL (MENACTRA/MENVEO) Aged Out No longer eligible based on patient's age to complete this topic documented as of this encounter Medical Devices Implanted Type Area Brim Ironer Hand Device Identifier Shelf Expiration Date Model / Serial / Lot Vitoss Bimodal Foam Pack 10cc - [id number] Implanted:Qty : 2 on 10/11/2017 by Rosendo Nathan DO at [facility] N/A: Spine Lumbar SARAH : SPINE 03/08/2019 / / [id number] Vitoss Bimodal Foam Pack 10cc - [id number] Implanted:Qty : 1 on 10/11/2017 by Rosendo Nathan DO at [facility] N/A: Spine Lumbar SARAH : SPINE 02/05/2019 / / [id number] Screw Audie Bina 3 Ti Set - [id number] Implanted:Qty : 4 on 10/11/2017 by Rosendo Nathan DO at [facility] N/A: Spine Lumbar SARAH : SPINE [id number] / / 6.5 X 50 Mm Serrate Screws Implanted:Qty : 2 on 10/11/2017 by Rosendo Nathan DO at [facility] N/A: Spine Lumbar SARAH : SPINE [id number] / / 6.5 X 45 Mm Serrate Screw Implanted:Qty : 2 on 10/11/2017 by Rosendo Nathan DO at [facility] N/A: Spine Lumbar SARAH : SPINE [id number] / / 9 X 23x 6 - 9mm Pl Implanted:Qty : 1 on 10/11/2017 by Jac, Rosendo Hair, DO at [facility] N/A: Spine Lumbar SARAH : SPINE [id number] / / Shashank Bina 3 Ti 6x40mm - [id number] Implanted:Qty : 1 on 10/11/2017 by Rosendo Nathan, DO at [facility] N/A: Spine Lumbar SARAH : SPINE [id number] / / Shashank Bina 3 Ti 6x45mm - [id number] Implanted:Qty : 1 on 10/11/2017 by Rosendo Nathan, DO at [facility] N/A: Spine Lumbar SARAH : SPINE [id number] / / documented as of this encounter Visit Diagnoses Diagnosis Alcohol use disorder, severe, in early remission (HCC)- Primary Nausea & vomiting Nausea with vomiting Unintentional weight loss Loss of weight documented in this encounter Advance Directives Latest Code Status on File Code Status Date Activated Date Inactivated Comments Full Code 10/11/2017 9:23 AM 10/13/2017 10:36 PM This order reflects the patients wishes and were consensually agreed upon. Care Teams Supervisor Fur Dressing Relationship Specialty Start Date End Date Myesha Cavanaugh MD [address] [facility] [place] [phone] PCP - General Family Medicine 02/18/22 documented as of this encounter
--- OUTSIDE RECORDS SUMMARY | 2024-04-17 01:52 | External Medical Summary | Summary of Care ---
Author Name Unknown Organization [facility] Address [address] [facility] [address] Phone [phone] Care Team Providers Care Fire Investigation Manager Name Role Phone Myesha Cavanaugh MD Primary Care Provid er Reason for Visit * Reason Onset Date Comments Test Results Lab 10/27/2023 Encounter Details Date Type Department Care Team (Late st Contact Info) Description 10/27/2023 Telephone Hematology/Oncology [facility] [place] [address] [facility] [place] [place] [address] Jenna Yanes CRNP [address] [place] [address] Test Results Lab Allergies Active Allergy Reactions Criticality Noted Date Comments Amoxicillin 01/05/2017 thrush Latex 06/20/2013 Hives, rash and swelling Lisinopril 06/02/2023 COUGH Nickel Rash 12/03/2020 documented as of this encounter (statuses as of 10/31/2023) Medications Medication Sig Dispensed Refills Start Date End Date Status Spiriva Respimat 2.5 MCG/ACT Inhalation Aerosol Solution (Tiotropium [place] Monohydrate) Inhale 2 Puffs by mouth daily. [...] as of this encounter (statuses as of 10/31/2023) Active Problems Problem Noted Date Diagnosed Date [...] as of this encounter (statuses as of 10/31/2023) Resolved Problems Problem Noted Date Diagnosed Date Resolved Date Food insecurity 04/19/2021 08/26/2021 Overview: Per [facility] Protocol Asthma exacerbation 03/30/2015 07/07/20 17 Moderate persistent asthma 11/09/2014 0 03/30/2015 Overview: PFT Pneumonitis 07/24/2014 01/06/2022 Asthma exacerbation 07/24/2014 03/30/20 15 documented as of this encounter (statuses as of 10/31/2023) Immunizations Name Administration Dates Next Due PPD [...] Telephone Encounter - Jenna Yanes CRNP - 10/31/2023 1:52 PM EST Component Latest Ref Rng 10/31/2023 WBC 4.00 - 10.80 K/uL 7.05 RBC 3.85 - 5.15 M/uL 3.31 HGB 12.0 - 15.3 g/dL 11.4 (L) HCT 36.0 - 45.2 % 31.3 (L) MCV 81.5 - 97.5 fL 94.6 MCH 27.0 - 34.0 pg 34.4 MCHC 32.0 - 36.0 g/dL 36.4 RDW 11.5 - 15.5 % 14.2 PLT 140 - 400 K/uL 438 (H) MPV 6.6 - 11.1 fL 9.5 Component Latest Ref Rng 10/31/2023 BUN 6 - 20 mg/dL 14 Creatinine 0.5 - 1.0 mg/dL 0.9 Estimated Glomerular Filtration Rate >=60 mL/min 79 Sodium 135 - 146 mmol/L 138 Potassium 3.5 - 5.1 mmol/L 4.6 Chloride 98 - 107 mmol/L 103 CO2 22 - 32 mmol/L 21 (L) Anion Gap 7 - 15 mmol/L 14 Glucose 70 - 120 mg/dL 94 Albumin 3.8 - 5.0 g/dL 3.6 (L) AST 10 - 35 U/L 35 Alkaline Phosphatase 35 - 130 U/L 195 (H) Bilirubin, Total <=1.2 mg/dL 0.5 Calcium 8.4 - 10.2 mg/dL 9.4 Protein 6.0 - 8.3 g/dL 6.8 ALT 10 - 35 U/L 43 (H) Lab work significantly improved. * Telephone Encounter - Yady Puga RN - 10/30/2023 12:40 PM EST Called and spoke to patient. She states that she has been sick recently, was in bed a few days lastweek with nausea/ vomiting and was not eating/ drinking much. Feeling better now. She states that she does take meloxicam- advised her to HOLD it. She states that she has been drinking water today, also has had a few alcoholic drinks today so far. Advised to limit fluid intake to 60oz per day and to try to decrease alcohol intake. She states that she cannot go to the lab today but will go tomorrow when she goes to for CT scan. * Telephone Encounter - Echo Jenkins OSA [...] 11/06/2023 3:00 PM EST Office [facility]On[facility] [address] [facility] [phone] Jenna Yanes CRNP 400 [facility] [place] [address] 01/18/2024 1:30 PM EDT Hospital Encounter ENDO O[facility], Endoscopy Room [facility] [address] [place] [phone] Erika Rios DO [address] [place] [address] 01/18/2024 1:30 PM EDT - 01/18/2024 2:30 PM EDT Surgery ENDO [facility], Endoscopy Room [facility] [address] [place] [phone] Erika Rios DO [address] [place] [address] COLONOSCOPY FLEXIBLE PROXIMAL DIAGNOSTIC 01/23/2024 1:00 PM EDT Imaging Radiology [address] 132 [facility] [place] [address] 03/15/2024 4:00 PM EDT Office Visit Nephrology, [facility] [address] [facility] [place] [address] Chon Whitley MD [address] [facility] [place] [address] Scheduled Procedures Name Priority Associated Diagnoses Date/Ti [...] this encounter Medical Devices Implanted Type Area Toll Transmission Worker Device Identifier Shelf Expiration Date Model / Serial / Lot Vitoss Bimodal Foam Pack 10cc - [id number] Implanted:Qty : 2 on 10/11/2017 by Rosendo Nathan DO at [facility] N/A: Spine Lumbar SARAH : SPINE 03/08/2019 / / [id number] Vitoss Bimodal Foam Pack 10cc - [id number] Implanted:Qty : 1 on 10/11/2017 by Rosendo Nathan DO at [facility] N/A: Spine Lumbar SARAH : SPINE 02/05/2019 / / [id number] Screw Audie Bina 3 Ti Set - [id number] Implanted:Qty : 4 on 10/11/2017 by Rosendo Nathan DO at [facility] N/A: Spine Lumbar SARAH : SPINE [id number] / / 6.5 X 50 Mm Serrate Screws Implanted:Qty : 2 on 10/11/2017 by Rosendo Nathan DO at [facility] N/A: Spine Lumbar SARAH : SPINE [id number] / / 6.5 X 45 Mm Serrate Screw Implanted:Qty : 2 on 10/11/2017 by Rosendo Nathan DO at [facility] N/A: Spine Lumbar SARAH : SPINE [id number] / / 9 X 23x 6 - 9mm Pl Implanted:Qty : 1 on 10/11/2017 by Rosendo Nathan DO at [facility] N/A: Spine Lumbar SARAH : SPINE [id number] / / Shashank Bina 3 Ti 6x40mm - [id number] Implanted:Qty : 1 on 10/11/2017 by Rosendo Nathan, DO at [facility] N/A: Spine Lumbar SARAH : SPINE [id number] / / Shashank Bina 3 Ti 6x45mm - [id number] Implanted:Qty : 1 on 10/11/2017 by Rosendo Nathan, DO at [facility] N/A: Spine Lumbar SARAH : SPINE [id number] / / documented as of this encounter Results * (ABNORMAL) COMPREHENSIVE METABOLIC PANEL (10/31/2023 10:39 AM EST) BUN 14 6 - 20 mg/dL 10/31/2023 11:29 AM EST [facility] Creatinine 0.9 0.5 - 1.0 mg/dL 10/31/2023 11:29 AM EST [facility] Estimated Glomerular Filtration Rate 79 >=60 mL/min 10/31/2023 11:29 AM EST [facility] Comment:eGFR is calculated b ased on the CKD-EPI 2020 equation Sodium 138 135 - 146 mmol/L 10/31/2023 11:29 AM EST [facility] Potassium 4.6 3.5 - 5.1 mmol/L 10/31/2023 11:29 AM EST [facility] Chloride 103 98 - 107 mmol/L 10/31/2023 11:29 AM EST [facility] CO2 21(L) 22 - 32 mmol/L 10/31/2023 11:29 AM EST [facility] Anion Gap 14 7 - 15 mmol/L 10/31/2023 11:29 AM EST [facility] Glucose 94 70 - 120 mg/dL 10/31/2023 11:29 AM EST [facility] Albumin 3.6(L) 3.8 - 5.0 g/dL 10/31/2023 11:29 AM EST [facility] AST 35 10 - 35 U/L 10/31/2023 11:29 AM EST [facility] Alkaline Phosphatase 195(H) 35 - 130 U/L 10/31/2023 11:29 AM EST [facility] Bilirubin, Total 0.5 <=1.2 mg/dL 10/31/2023 11:29 AM EST [facility] Calcium 9.4 8.4 - 10.2 mg/dL 10/31/2023 11:29 AM EST [facility] Protein 6.8 6.0 - 8.3 g/dL 10/31/2023 11:29 AM EST [facility] ALT 43(H) 10 - 35 U/L 10/31/2023 11:29 AM EST [facility] Blood Venous blood specimen / Unknown Venipuncture / Unknown 10/31/2023 10:39 AM EST 10/31/2023 10:39 AM EST Jenna KRUEGER LAB BLOOD ORDER [facility] [place] [facility] [address] [facility] [address] documented in this encounter Visit Diagnoses Diagnosis Alcohol use [...] and were consensually agreed upon. Care Teams Fire Investigation Manager Relationship Specialty Start Date End Date Myesha Cavanaugh MD [address] [place] [address] PCP - General Family Medicine 02/18/22 documented as of this encounter
--- OUTSIDE RECORDS SUMMARY | 2024-04-17 01:52 | External Medical Summary | Summary of Care ---
Author Name Unknown Organization [facility] Address [address] [place] [address] Phone [phone] Care Team Providers Care Soloist Dancer Name Role Phone Myesha Cavanaugh MD Primary Care Provid er Reason for Visit * Reason Comments Outpatient Testing Encounter Details Date Type Department Care Team (Late st Contact Info) Description 10/31/2023 1:00 PM EST Laboratory Laboratory, [facility] [address] [facility] [address] [facility] 132 [place] [address] Alcohol use disorder, severe, in early remission [...] Date Food insecurity 04/19/2021 08/26/2021 Overview: Per [facility] Protocol Asthma exacerbation 03/30/2015 07/07/20 [...] Description 10/31/2023 11:00 AM EST Imaging Radiology [address] [place] [address] Arrived 11/06/2023 3:00 PM EST Office Visit Hematology/Oncology [facility] 200 [facility] [place] [phone] Jenna Yanes CRNP 400 [facility] [place] [address] 01/18/2024 1:30 PM EDT Hospital Encounter ENDO [facility], Endoscopy Room [facility] [address] [place] [address] Erika Rios, [address] [place] [address] 01/18/2024 1:30 PM EDT - 01/18/2024 2:30 PM EDT Surgery ENDO [facility], Endoscopy Room [facility] [address] [place] [phone] Erika Rios DO [address] [place] [address] COLONOSCOPY FLEXIBLE PROXIMAL DIAGNOSTIC 01/23/2024 1:00 PM EDT Imaging Radiology [address] [place] [address] 03/15/2024 4:00 PM EDT Office Visit Nephrology, [facility] 200 [facility] [place] [place] [address] Chon Whitley MD 200 [facility] [place] [address] Pending Results Name Type Priority Associated Diagnoses Date /Time COMPREHENSIVE METABOLIC PANEL Lab STAT Alcohol use disorder, severe, in early remission (HCC) 10/31/2023 10:39 AM EST Scheduled Procedures Name Priority Associated Diagnoses Date/Ti fl COLONOSCOPY FLEXIBLE PROXIMA L DIAGNOSTIC Nausea & [...] this encounter Medical Devices Implanted Type Area Project Leader Device Identifier Shelf Expiration Date Model / Serial / Lot Vitoss Bimodal Foam Pack 10cc - [id number] Implanted:Qty : 2 on 10/11/2017 by Rosendo Nathan DO at [facility] N/A: Spine Lumbar SARAH : SPINE 03/08/2019 / / [id number] Vitoss Bimodal Foam Pack 10cc - [id number] Implanted:Qty : 1 on 10/11/2017 by Rosendo Nathan DO at [facility] N/A: Spine Lumbar SARAH : SPINE 02/05/2019 / / [id number] Screw Audie Bina 3 Ti Set - [id number] Implanted:Qty : 4 on 10/11/2017 by Rosendo Nathan DO at [facility] N/A: Spine Lumbar SARAH : SPINE [id number] / / 6.5 X 50 Mm Serrate Screws Implanted:Qty : 2 on 10/11/2017 by Rosendo Nathan DO at [facility] N/A: Spine Lumbar SARAH : SPINE [id number] / / 6.5 X 45 Mm Serrate Screw Implanted:Qty : 2 on 10/11/2017 by Rosendo Nathan DO at [facility] N/A: Spine Lumbar SARHA : SPINE [id number] / / 9 X 23x 6 - 9mm Pl Implanted:Qty : 1 on 10/11/2017 by Rosendo Nathan DO at [facility] N/A: Spine Lumbar SARAH : SPINE [id number] / / Shashank Bina 3 Ti 6x40mm - [id number] Implanted:Qty : 1 on 10/11/2017 by Rosendo Nathan DO at [facility] N/A: Spine Lumbar SARAH : SPINE [id number] / / Shashank Bina 3 Ti 6x45mm - [id number] Implanted:Qty : 1 on 10/11/2017 by Rosendo Nathan DO at [facility] N/A: Spine Lumbar SARAH : SPINE [id number] / / documented as of this encounter Procedures Procedure Name Priority Date/Time Associated Diagnosis Comments DIFFERENTIAL, AUTOMATED STAT 10/31/2023 10:39 AM EST Alcohol use disorder, severe, in early remission (HCC) CBC STAT 10/31/2023 10:39 AM EST Alcohol use disorder, severe, in early remission (HCC) CBC STAT 10/31/2023 10:39 AM EST Alcohol use disorder, severe, in early remission (HCC) documented in this encounter Results * DIFFERENTIAL, AUTOMATED (10/31/2023 10:39 AM EST) WBC 7.05 4.00 - 10.80 K/uL 10/31/2023 10:43 AM EST [facility] [place] [facility] Neutrophils % 61.2 40.0 - 75.0 % 10/31/2023 10:43 AM EST [facility] [place] [facility]10 Lymphocytes % 26.0 18.0 - 42.0 % 10/31/2023 10:43 AM EST [facility] [place] [facility]10 Monocytes % 8.8 1.0 - 11.0 % 10/31/2023 10:43 AM EST [facility] [place] [facility] Eosinophils % 3.3 0.0 - 6.0 % 10/31/2023 10:43 AM EST [facility] [place] [facility] Basophils % 0.7 0.0 - 2.0 % 10/31/2023 10:43 AM EST [facility] [place] [facility]10 Absolute Neutrophils 4.32 1.80 - 7.70 K/uL 10/31/2023 10:43 AM EST [facility] [place] [facility]10 Absolute Lymphocytes 1.83 1.00 - 4.80 K/ul 10/31/2023 10:43 AM EST [facility] [place] [facility]10 Absolute Monocytes 0.62 0.00 - 1.10 K/uL 10/31/2023 10:43 AM EST [facility] [place] [facility] Absolute Eosinophils 0.23 0.00 - 0.70 K/uL 10/31/2023 10:43 AM EST [facility] [place] [facility] Absolute Basophils 0.05 0.00 - 0.20 K/uL 10/31/2023 10:43 AM EST [facility] [place] [facility] Blood Venous blood specimen / Unknown Venipuncture / Unknown 10/31/2023 10:39 AM EST 10/31/2023 10:39 AM EST Jenna KRUEGER LAB BLOOD ORDER [facility] [place] [facility] [place] Stephanie [phone] * (ABNORMAL) CBC (10/31/2023 10:39 AM EST) WBC 7.05 4.00 - 10.80 K/uL 10/31/2023 10:43 AM EST [facility] [place] [facility] RBC 3.31 3.85 - 5.15 M/uL 10/31/2023 10:43 AM EST [facility] [place] [facility] HGB 11.4(L) 12.0 - 15.3 g/dL 10/31/2023 10:43 AM EST [facility] [place] [facility]10 HCT 31.3(L) 36.0 - 45.2 % 10/31/2023 10:43 AM EST [facility] [place] [facility] MCV 94.6 81.5 - 97.5 fL 10/31/2023 10:43 AM EST [facility] [place] [facility] MCH 34.4 27.0 - 34.0 pg 10/31/2023 10:43 AM EST [facility] [place] [facility] MCHC 36.4 32.0 - 36.0 g/dL 10/31/2023 10:43 AM EST [facility] [place] [facility] RDW 14.2 11.5 - 15.5 % 10/31/2023 10:43 AM EST [facility] [place] [facility] PLT 438(H) 140 - 400 K/uL 10/31/2023 10:43 AM EST [facility] [place] [facility] MPV 9.5 6.6 - 11.1 fL 10/31/2023 10:43 AM EST [facility] [place] [facility] Blood Venous blood specimen / Unknown Venipuncture / Unknown 10/31/2023 10:39 AM EST 10/31/2023 10:39 AM EST Jenna KRUEGER LAB BLOOD [facility] [place] [facility] [place] [address] documented in this encounter Visit Diagnoses Diagnosis [...] and were consensually agreed upon. Care Teams Soloist Dancer Relationship Specialty Start Date End Date Myesha Cavanaugh MD [address] [place] [address] PCP - General Family Medicine 02/18/22 documented as of this encounter
--- OUTSIDE RECORDS SUMMARY | 2024-04-17 01:52 | External Medical Summary | Summary of Care ---
Author Name Unknown Organization [facility] Address [address] [facility] [address] Phone [phone] Care Team Providers Care Corporate Quality Assurance Manager Name Role Phone Myesha Cavanaugh MD Primary Care Provid er Reason for Visit * Reason Onset Date Comments Test Results Lab 10/27/2023 Encounter Details Date Type Department Care Team (Late st Contact Info) Description 10/27/2023 Telephone Hematology/Oncology [facility] [place] [address] [facility] [place] [address] Jenna Yanes CRNP 400 [place] [address] Test Results Lab Allergies Active Allergy Reactions Criticality Noted Date Comments Amoxicillin 01/05/2017 thrush Latex 06/20/2013 Hives, rash and swelling Lisinopril 06/02/2023 COUGH Nickel Rash 12/03/2020 documented as of this encounter (statuses as of 10/30/2023) Medications Medication Sig Dispensed Refills Start Date End Date Status Spiriva Respimat 2.5 MCG/ACT Inhalation Aerosol Solution (Tiotropium [place] Monohydrate) Inhale 2 Puffs by mouth daily. [...] Description 10/31/2023 11:00 AM EST Imaging Radiology [address] [place] [address] 11/06/2023 3:00 PM EST Office Visit Hematology/Oncology [facility] 200 [facility] [place] [address] Jenna [facility]anes CRNP [facility] [place] [address] 01/18/2024 1:30 PM EDT Hospital Encounter ENDO [facility], Endoscopy Room [facility] [address] [place] [phone] Erika Rios DO [address] [place] [address] 01/18/2024 1:30 PM EDT - 01/18/2024 2:30 PM EDT Surgery ENDO [facility], Endoscopy Room [facility] [address] [place] [phone] Erika Rios DO [address] [place] [address] COLONOSCOPY FLEXIBLE PROXIMAL DIAGNOSTIC 01/23/2024 1:00 PM EDT Imaging Radiology [address] [place] [address] 03/15/2024 4:00 PM EDT Office Visit Nephrology, [facility] 200 [facility] [place] [address] Chon Whitely MD 200 [facility] [place] [address] Scheduled Orders Name Type Priority Associated Diagnoses [...] this encounter Medical Devices Implanted Type Area Office Equipment Mechanic Device Identifier Shelf Expiration Date Model / Serial / Lot Vitoss Bimodal Foam Pack 10cc - [id number] Implanted:Qty : 2 on 10/11/2017 by Rosendo Nathan, DO at [facility] N/A: Spine Lumbar SARAH : SPINE 03/08/2019 / / [id number] Vitoss Bimodal Foam Pack 10cc - [id number] Implanted:Qty : 1 on 10/11/2017 by Rosendo Nathan DO at [facility] N/A: Spine Lumbar SARAH : SPINE 02/05/2019 / / [id number] Screw Audie Bina 3 Ti Set - [id number] Implanted:Qty : 4 on 10/11/2017 by Rosendo Nathan DO at [facility] N/A: Spine Lumbar SARAH : SPINE [id number] / / 6.5 X 50 Mm Serrate Screws Implanted:Qty : 2 on 10/11/2017 by Rosendo Nathan DO at [facility] N/A: Spine Lumbar SARAH : SPINE [id number] / / 6.5 X 45 Mm Serrate Screw Implanted:Qty : 2 on 10/11/2017 by Rosendo Nathan DO at [facility] N/A: Spine Lumbar SARAH : SPINE [id number] / / 9 X 23x 6 - 9mm Pl Implanted:Qty : 1 on 10/11/2017 by Rosendo Nathan DO at [facility] N/A: Spine Lumbar SARAH : SPINE [id number] / / Shashank Bina 3 Ti 6x40mm - [id number] Implanted:Qty : 1 on 10/11/2017 by Rosendo Nathan DO at [facility] N/A: Spine Lumbar SARAH : SPINE [id number] / / Shashank Bina 3 Ti 6x45mm - [id number] Implanted:Qty : 1 on 10/11/2017 by Rosendo Nathan DO at [facility] N/A: Spine Lumbar SARAH : SPINE [id number] / / documented as of this encounter [...] and were consensually agreed upon. Care Teams Corporate Quality Assurance Manager Relationship Specialty Start Date End Date Myesha Cavanaugh MD [address] [place] [facility] [place] [address] PCP - General Family Medicine 02/18/22 documented as of this encounter
--- OUTSIDE RECORDS SUMMARY | 2024-04-17 01:52 | External Medical Summary ---
Author Name Unknown Address Unknown Organization [facility] [place] [address] - [address] [place] [address] Laboratory Report Ordering Provider Test Date Status LUIS CORTEZ 10/31/2023 10:39:40 Final Observation Date Value Abnormality Reference (Units ) Status BUN 10/31/2023 10:39:40 14 6-20 (mg/dL) Final Creatinine 10/31/2023 10:39:40 0.9 0.5-1.0 (mg/dL) Final Glomerular filtration rate/1.73 sq M.predicted [Volume Rate/Area] in Serum, Plasma or Blood by Creatinine-based formula (CKD-EPI) 10/31/2023 10:39:40 79 >=60 (mL/min) Final eGFR is calculated based on the CKD-EPI 2020 equation SODIUM 10/31/2023 10:39:40 138 135-146 (m mol/L) Final Potassium 10/31/2023 10:39:40 4.6 3.5-5.1 (m mol/L) Final Cl 10/31/2023 10:39:40 103 98-107 (mm ol/L) Final CO2 10/31/2023 10:39:40 21 Below low normal 22- 32 (mmol/L) Final Anion gap 10/31/2023 10:39:40 14 7-15 (mmol /L) Final Glucose 10/31/2023 10:39:40 94 70-120 (mg /dL) Final Albumin 10/31/2023 10:39:40 3.6 Below low normal 3.8 -5.0 (g/dL) Final AST (Aspartate aminotransferase) 10/31/2023 10:39:40 35 10-35 (U/L) Fin al Alk Phos 10/31/2023 10:39:40 195 Above high normal 35 -130 (U/L) Final Bilirubin, Total 10/31/2023 10:39:40 0.5 <=1 .2 (mg/dL) Final Calcium 10/31/2023 10:39:40 9.4 8.4-10.2 ( mg/dL) Final Protein 10/31/2023 10:39:40 6.8 6.0-8.3 (g /dL) Final ALT (Alanine aminotransferase) 10/31/2023 10:39:40 43 Above high normal 10-35 (U/L) Final Performing Location [facility] [place] [facility]-1 0 - [address] [facility] [address]
--- OUTSIDE RECORDS SUMMARY | 2024-04-17 01:52 | External Medical Summary | Summary of Care ---
Author Name Unknown Organization [facility] Address [address] [facility] [address] Phone [phone] Care Team Providers Care Security Tester Name Role Phone Myesha Cavanaugh MD Primary Care Provid er Reason for Visit * Reason Onset Date Comments Test Results Lab 10/27/2023 Encounter Details Date Type Department Care Team (Late st Contact Info) Description 10/27/2023 Telephone Hematology/Oncology [facility] [place] 200 [facility] [place] [address] Jenna Yanes CRNP 400 [place] [address] Test Results Lab Allergies Active Allergy Reactions Criticality Noted Date Comments Amoxicillin 01/05/2017 thrush Latex 06/20/2013 Hives, rash and swelling Lisinopril 06/02/2023 COUGH Nickel Rash 12/03/2020 documented as of this encounter (statuses as of 11/01/2023) Medications Medication Sig Dispensed Refills Start Date End Date Status Spiriva Respimat 2.5 MCG/ACT Inhalation Aerosol Solution (Tiotropium [place] Monohydrate) Inhale 2 Puffs by mouth daily. [...] as of this encounter (statuses as of 11/01/2023) Active Problems Problem Noted Date Diagnosed Date [...] as of this encounter (statuses as of 11/01/2023) Resolved Problems Problem Noted Date Diagnosed Date Resolved Date Food insecurity 04/19/2021 08/26/2021 Overview: Per [facility] Protocol Asthma exacerbation 03/30/2015 07/07/20 17 Moderate persistent asthma 11/09/2014 0 03/30/2015 Overview: PFT Pneumonitis 07/24/2014 01/06/2022 Asthma exacerbation 07/24/2014 03/30/20 15 documented as of this encounter (statuses as of 11/01/2023) Immunizations Name Administration Dates Next Due PPD [...] Telephone Encounter - Yady Puga RN - 11/01/2023 9:39 AM EST Left message for patient that lab work is improved, Jenna will review at office visit 11/06. * Telephone Encounter - Jenna Yanes CRNP [...] 11/06/2023 3:00 PM EST Office Visit Hematology/Oncology [facility] [place] 200 [facility] [place] [address] Jenna Yanes CRNP 400 [facility] [place] [address] 01/18/2024 1:30 PM EDT Hospital Encounter ENDO [facility], Endoscopy Room [facility] [address] [place] [address] Erika Rios DO [address] [place] [address] 01/18/2024 1:30 PM EDT - 01/18/2024 2:30 PM EDT Surgery ENDO [facility], Endoscopy Room [facility] [address] [place] [address] Erika Rios [place]orene, [address] [place] [address] COLONOSCOPY FLEXIBLE PROXIMAL DIAGNOSTIC 01/23/2024 1:00 PM EDT Imaging Radiology [facility] 1st [facility] [place] [address] [place] [address] 03/15/2024 4:00 PM EDT Office Visit Nephrology, [facility] [place] [address] [place] [address] Chon Whitley MD [address] [place] [address] Scheduled Procedures Name Priority Associated Diagnoses Date/Ti [...] this encounter Medical Devices Implanted Type Area Machined Parts Metal Sprayer Device Identifier Shelf Expiration Date Model / Serial / Lot Vitoss Bimodal Foam Pack 10cc - [id number] Implanted:Qty : 2 on 10/11/2017 by Rosendo Nathan DO at [facility] N/A: Spine Lumbar SARAH : SPINE 03/08/201921013356-3697 / / [id number] Vitoss Bimodal Foam Pack 10cc - [id number] Implanted:Qty : 1 on 10/11/2017 by Rosendo Nathan DO at [facility] N/A: Spine Lumbar SARAH : SPINE 02/05/2019 / / [id number] Screw Audie Bina 3 Ti Set - [id number] Implanted:Qty : 4 on 10/11/2017 by Rosendo Nathan DO at [facility] N/A: Spine Lumbar SARAH : SPINE [id number] / / 6.5 X 50 Mm Serrate Screws Implanted:Qty : 2 on 10/11/2017 by Rosendo Nathan DO at [facility] N/A: Spine Lumbar SARAH : SPINE [id number] / / 6.5 X 45 Mm Serrate Screw Implanted:Qty : 2 on 10/11/2017 by Rosendo Nathan DO at [facility] N/A: Spine Lumbar SARAH : SPINE [id number] / / 9 X 23x 6 - 9mm Pl Implanted:Qty : 1 on 10/11/2017 by Rosendo Nathan DO at [facility] N/A: Spine Lumbar SARAH : SPINE [id number] / / Shashank Bina 3 Ti 6x40mm - [id number] Implanted:Qty : 1 on 10/11/2017 by Rosendo Nathan DO at [facility] N/A: Spine Lumbar SARHA : SPINE [id number] / / Shashank Bina 3 Ti 6x45mm - [id number] Implanted:Qty : 1 on 10/11/2017 by Rosendo Nathan DO at [facility] N/A: Spine Lumbar SARAH : SPINE [id number] / / documented as of this encounter [...] ORDER [facility] [place] [facility] [place] [address] documented in this encounter Visit Diagnoses Diagnosis [...] and were consensually agreed upon. Care Teams Security Tester Relationship Specialty Start Date End Date Myesha Cavanaugh MD [address] [place] [address] PCP - General Family Medicine 02/18/22 documented as of this encounter
--- OUTSIDE RECORDS SUMMARY | 2024-04-17 01:52 | External Medical Summary ---
Author Name Unknown Address Unknown Organization [facility] [place] [address] - [address] [place] [address] Laboratory Report Ordering Provider Test Date Status LUIS CORTEZ 10/31/2023 10:39:40 Final Observation Date Value Abnormality Reference (Units ) Status SYNC LEUKOCYTES IN BLOOD BY AUTOMATED COUNT 10/31/2023 10:39:40 7.05 4.00-10.80 (K/uL) Final Segs 10/31/2023 10:39:40 61.2 40.0-75.0 (%) Final Lymphs % 10/31/2023 10:39:40 26.0 18.0-42.0 (%) Final Monos 10/31/2023 10:39:40 8.8 1.0-11.0 (%) Final Eosinophils 10/31/2023 10:39:40 3.3 0.0-6.0 (%) Final Basos 10/31/2023 10:39:40 0.7 0.0-2.0 (%) Final Absolute Segs 10/31/2023 10:39:40 4.32 1.80-7.70 (K/uL) Final Lymphs, absolute 10/31/2023 10:39:40 1.83 1.00-4.80 (K/ul) Final Monos, Abs 10/31/2023 10:39:40 0.62 0.00-1.10 (K/uL) Final Eos, Abs 10/31/2023 10:39:40 0.23 0.00-0.70 (K/uL) Final Basos, Abs 10/31/2023 10:39:40 0.05 0.00-0.20 (K/uL) Final Performing Location [facility] [place] 57-[address] 0 - [address] [place] [address]
--- OUTSIDE RECORDS SUMMARY | 2024-04-17 01:52 | External Medical Summary | Summary of Care ---
Author Name Unknown Organization [facility] Address [address] [facility] [address] Phone [phone] Care Team Providers Care Rim Fire Priming Tool Setter Name Role Phone Myesha Cavanaugh MD Primary Care Provid er Reason for Visit * Reason Onset Date Comments Test Results Lab 10/27/2023 Encounter Details Date Type Department Care Team (Late st Contact Info) Description 10/27/2023 Telephone Hematology/Oncology [facility] [place] 200 [facility] [place] [place] [address] Jenna Yanes CRNP 400 [place] [address] Test Results Lab Allergies Active Allergy Reactions Criticality Noted Date Comments Amoxicillin 01/05/2017 thrush Latex 06/20/2013 Hives, rash and swelling Lisinopril 06/02/2023 COUGH Nickel Rash 12/03/2020 documented as of this encounter (statuses as of 10/30/2023) Medications Medication Sig Dispensed Refills Start Date End Date Status Spiriva Respimat 2.5 MCG/ACT Inhalation Aerosol Solution (Tiotropium [place] Monohydrate) Inhale 2 Puffs by mouth daily. [...] leave VM. * Telephone Encounter - Jenna Yanes, EVANS - 10/27/2023 10:20 AM EST Results for [...] Description 10/31/2023 11:00 AM EST Imaging Radiology [address] 132 [facility] [place] [address] 11/06/2023 3:00 PM EST Office Visit Hematology/Oncology [facility] 200 [facility] [address] Jenna Yanes CRNP 400 [facility] [place] [address] 01/18/2024 1:30 PM EDT Hospital Encounter ENDO [facility], Endoscopy Room [facility] 132 [facility] [place] [phone] Erika Rios, 132 [facility] [place] [address] 01/18/2024 1:30 PM EDT - 01/18/2024 2:30 PM EDT Surgery ENDO [facility], Endoscopy Room [facility] [address] [place] [phone] Blanca Erika DoreneDO [address] [place] [address] COLONOSCOPY FLEXIBLE PROXIMAL DIAGNOSTIC 01/23/2024 1:00 PM EDT Imaging Radiology [facility] 1st [facility] [place] [address] [place] [address] 03/15/2024 4:00 PM EDT Office Visit Nephrology, Charbel Marquis [address] [place] [address] Chon Whitley MD [address] [place] [address] Scheduled Orders Name Type Priority Associated Diagnoses [...] this encounter Medical Devices Implanted Type Area Poker In Device Identifier Shelf Expiration Date Model / Serial / Lot Vitoss Bimodal Foam Pack 10cc - [id number] Implanted:Qty : 2 on 10/11/2017 by Rosendo Nathan, DO at [facility] N/A: Spine Lumbar SARAH : SPINE 03/08/2019 / / [id number] Vitoss Bimodal Foam Pack 10cc - [id number] Implanted:Qty : 1 on 10/11/2017 by Rosendo Nathan, DO at [facility] N/A: Spine Lumbar SARAH : SPINE 02/05/2019 / / [id number] Screw Audie Bina 3 Ti Set - [id number] Implanted:Qty : 4 on 10/11/2017 by Rosendo Nathan, DO at [facility] N/A: Spine Lumbar SARAH : SPINE [id number] / / 6.5 X 50 Mm Serrate Screws Implanted:Qty : 2 on 10/11/2017 by Rosendo Nathan, DO at [facility] N/A: Spine Lumbar SARAH : SPINE [id number] / / 6.5 X 45 Mm Serrate Screw Implanted:Qty : 2 on 10/11/2017 by Rosendo Nathan, at [facility] N/A: Spine Lumbar SARAH : SPINE [id number] / / 9 X 23x 6 - 9mm Pl Implanted:Qty : 1 on 10/11/2017 by Rosendo Nathan, at [facility] N/A: Spine Lumbar SARAH : SPINE [id number] / / Shashank Bina 3 Ti 6x40mm - [id number] Implanted:Qty : 1 on 10/11/2017 by Rosendo Nathan DO at [facility] N/A: Spine Lumbar SARAH : SPINE [id number] / / Shashank Bina 3 Ti 6x45mm - [id number] Implanted:Qty : 1 on 10/11/2017 by Rosendo Nathan DO at [facility] N/A: Spine Lumbar SARAH : SPINE [id number] / / documented as of this encounter [...] and were consensually agreed upon. Care Teams Rim Fire Priming Tool Setter Relationship Specialty Start Date End Date Myesha Cavanaugh MD [address] [facility] [place] [address] PCP - General Family Medicine 02/18/22 documented as of this encounter
--- OUTSIDE RECORDS SUMMARY | 2024-04-17 01:52 | External Medical Summary ---
Author Name Unknown Address Unknown Organization [facility] [place] 57-10 - [address] [place] [address] Laboratory Report Ordering Provider Test Date Status LUIS CORTEZ 10/31/2023 10:39:40 Final Observation Date Value Abnormality Reference (Units ) Status WBC, Total 10/31/2023 10:39:40 7.05 4.00-10.8 0 (K/uL) Final RBC 10/31/2023 10:39:40 3.31 3.85-5.15 (M/uL) Final Hemoglobin 10/31/2023 10:39:40 11.4 Below low normal 12 .0-15.3 (g/dL) Final HCT 10/31/2023 10:39:40 31.3 Below low normal 36. 0-45.2 (%) Final MCV 10/31/2023 10:39:40 94.6 81.5-97.5 (fL) Final MCH 10/31/2023 10:39:40 34.4 27.0-34.0 (pg) Final MCHC 10/31/2023 10:39:40 36.4 32.0-36.0 (g/dL) Final RDW 10/31/2023 10:39:40 14.2 11.5-15.5 (%) Final Platelets 10/31/2023 10:39:40 438 Above high normal 14 0-400 (K/uL) Final MPV 10/31/2023 10:39:40 9.5 6.6-11.1 ( fL) Final Performing Location [facility] [place] 57-1 0 - [address] [place] [address]
--- OUTSIDE RECORDS SUMMARY | 2024-04-17 01:53 | External Medical Summary | Summary of Care ---
Author Name Unknown Organization [facility] Address [address] [facility] [facility] [address] Phone [phone] Care Team Providers Care Special Weapons And Tactics Officer Name Role Phone Myesha Cavanaugh MD Primary Care Provid er Reason for Visit * Reason Onset Date Comments Test Results Lab 10/27/2023 Encounter Details Date Type Department Care Team (Late st Contact Info) Description 10/27/2023 Telephone Hematology/Oncology [facility] [place] [address] [place] [place] [address] Jenna Yanes CRNP [address] [place] [address] Test Results Lab Allergies Active Allergy Reactions Criticality Noted Date Comments Amoxicillin 01/05/2017 thrush Latex 06/20/2013 Hives, rash and swelling Lisinopril 06/02/2023 COUGH Nickel Rash 12/03/2020 documented as of this encounter (statuses as of 10/27/2023) Medications Medication Sig Dispensed Refills Start Date End Date Status Spiriva Respimat 2.5 MCG/ACT Inhalation Aerosol Solution (Tiotropium [place] Monohydrate) Inhale 2 Puffs by mouth daily. [...] before bedtime. 13 g 11 01/06/2023 Active FLUoxetine HCl 40 MG Oral Capsule (PROzac)Indications :Major depressive disorder with single episode, in full remission (HCC) Take 1 Capsule by mouth in the morning. 90 Capsule 1 05/02/2023 Active hydrOXYzine HCl 50 MG Oral TabletIndications:A nxiety,Pruritus Take 1 Tablet by mouth every 6 hours as needed for Itching or Anxiety. 60 Tablet 5 05/02/2023 Active Meloxicam 15 MG Oral TabletIndications:F ibromyalgia,Lumbar radiculitis Take 1 Tablet by mouth daily. Take 1-2 tabs daily for pain. 90 Tablet 1 05/02/2023 Active Compressor NebulizerIndication s:Moderate persistent asthma without complication,COPD, moderate ([facility]) Inhale via nebulizer. Use as directed. 1 [...] FOR ANXIETY 30 Tablet 0 10/27/2023 Active documented as of this encounter (statuses as of 10/27/2023) Active Problems Problem Noted Date Diagnosed Date [...] as of this encounter (statuses as of 10/27/2023) Resolved Problems Problem Noted Date Diagnosed Date Resolved Date Food insecurity 04/19/2021 08/26/2021 Overview: Per [facility] Protocol Asthma exacerbation 03/30/2015 07/07/20 17 Moderate persistent asthma 11/09/2014 0 03/30/2015 Overview: PFT Pneumonitis 07/24/2014 01/06/2022 Asthma exacerbation 07/24/2014 03/30/20 15 documented as of this encounter (statuses as of 10/27/2023) Immunizations Name Administration Dates Next Due PPD [...] leave VM. * Telephone Encounter - Jenna YanesEVANS [place] - 10/27/2023 10:20 AM EST Results for [...] Description 10/31/2023 11:00 AM EST Imaging Radiology [address] 132 [facility] [place] [address] 11/06/2023 3:00 PM EST Office Visit Hematology/Oncology [facility] [address] [facility] [address] [place] [address] Jenna Yanes CRNP [address] [place] [address] [place] [id number] 01/18/2024 1:30 PM EDT Hospital Encounter ENDO [facility], [facility] [place] [phone] Erika Rios, [address] [place] [address] 01/18/2024 1:30 PM EDT - 01/18/2024 2:30 PM EDT Surgery ENDO [facility], Endoscopy Room [facility] [address] [place] [phone] Erika Rios DO [address] [place] [address] COLONOSCOPY FLEXIBLE PROXIMAL DIAGNOSTIC 01/23/2024 1:00 PM EDT Imaging Radiology [facility] 1st [facility] [place] [address] [place] [address] 03/15/2024 4:00 PM EDT Office Visit Nephrology, [facility] [address] [facility] [place] [address] Chon Whitley MD 200 [facility] [place] [address] Scheduled Orders Name Type Priority Associated Diagnoses [...] < 10) 10/26/2023 10/25/2023 Mammogram 01/18/2024 01/17/2023, 0505/2023, 06/27/2013 O2 ASSESSMENT COMPLETED IN PAST YEAR [...] this encounter Medical Devices Implanted Type Area Pipe Washer Device Identifier Shelf Expiration Date Model / Serial / Lot Vitoss Bimodal Foam Pack 10cc - [id number] Implanted:Qty : 2 on 10/11/2017 by Rosendo Nathan, DO at [facility] N/A: Spine Lumbar SARAH : SPINE 03/08/2019 / / [id number] Vitoss Bimodal Foam Pack 10cc - [id number] Implanted:Qty : 1 on 10/11/2017 by Rosendo Nathan, DO at [facility] N/A: Spine Lumbar SARAH : SPINE 02/05/2019 / / [id number] Screw Audie Bina 3 Ti Set - [id number] Implanted:Qty : 4 on 10/11/2017 by Rosendo Nathan DO at [facility] N/A: Spine Lumbar SARAH : SPINE [id number] / / 6.5 X 50 Mm Serrate Screws Implanted:Qty : 2 on 10/11/2017 by Rosendo Nathan DO at [facility] N/A: Spine Lumbar SARAH : SPINE [id number] / / 6.5 X 45 Mm Serrate Screw Implanted:Qty : 2 on 10/11/2017 by Rosendo Nathan DO at [facility] N/A: Spine Lumbar SARAH : SPINE [id number] / / 9 X 23x 6 - 9mm Pl Implanted:Qty : 1 on 10/11/2017 by Rosendo Nathan DO at [facility] N/A: Spine Lumbar SARAH : SPINE [id number] / / Shashank Bina 3 Ti 6x40mm - [id number] Implanted:Qty : 1 on 10/11/2017 by Rosendo Nathan DO at [facility] N/A: Spine Lumbar SARAH : SPINE [id number] / / Shashank Bina 3 Ti 6x45mm - [id number] Implanted:Qty : 1 on 10/11/2017 by Rosendo Nathan DO at [facility] N/A: Spine Lumbar SARAH : SPINE [id number] / / documented as of this encounter [...] were consensually agreed upon. Care Teams Special Weapons And Tactics Officer Relationship Specialty Start Date End Date Myesha Cavanaugh MD [address] [place] [address] [place] [address] PCP - General Family Medicine 02/18/22 documented as of this encounter
--- OUTSIDE RECORDS SUMMARY | 2024-04-17 01:53 | External Medical Summary | Summary of Care ---
Author Name Unknown Organization [facility] Address [address] [facility] [address] Phone [phone] Care Team Providers Care Polisher And Buffer Name Role Phone Myesha Cavanaugh MD Primary Care Provid er Reason for Visit * Reason Onset Date Comments Test Results Lab 10/27/2023 Encounter Details Date Type Department Care Team (Late st Contact Info) Description 10/27/2023 Telephone Hematology/Oncology [facility] [place] [address] [place] [address] Jenna Yanes CRNP [address] [place] [address] Test Results Lab Allergies Active Allergy Reactions Criticality Noted Date Comments Amoxicillin 01/05/2017 thrush Latex 06/20/2013 Hives, rash and swelling Lisinopril 06/02/2023 COUGH Nickel Rash 12/03/2020 documented as of this encounter (statuses as of 10/27/2023) Medications Medication Sig Dispensed Refills Start Date End Date Status Spiriva Respimat 2.5 MCG/ACT Inhalation Aerosol Solution (Tiotropium [place] Monohydrate) Inhale 2 Puffs by mouth daily. [...] NebulizerIndication s:Moderate persistent asthma without complication,COPD, moderate ([facility]) Inhale via nebulizer. Use as directed. 1 [...] Description 10/31/2023 11:00 AM EST Imaging Radiology [address] [place] [address] 11/06/2023 3:00 PM EST Office Visit Hematology/Oncology [facility] [address] Jenna Yanes CRNP 400 [facility] [place] [address] 01/18/2024 1:30 PM EDT Hospital Encounter ENDO [facility], Endoscopy Room [facility] [address] [place] [phone] Erika Rios DO 132 [place] [address] 01/18/2024 1:30 PM EDT - 01/18/2024 2:30 PM EDT Surgery ENDO [facility], Endoscopy Room [facility] [address] [place] [phone] Erika Rodas DO [address] [place] [address] COLONOSCOPY FLEXIBLE PROXIMAL DIAGNOSTIC 01/23/2024 1:00 PM EDT Imaging Radiology [address], [place] [address] [place] [address] 03/15/2024 4:00 PM EDT Office Visit Nephrology, Char[facility] Marquis 200 [facility] [place] [address] Chon Whitley MD [address] [place] [address] Scheduled Orders Name Type Priority Associated Diagnoses [...] this encounter Medical Devices Implanted Type Area Drama Director Device Identifier Shelf Expiration Date Model / Serial / Lot Vitoss Bimodal Foam Pack 10cc - [id number] Implanted:Qty : 2 on 10/11/2017 by Rosendo Nathan DO at [facility] N/A: Spine Lumbar SARAH : SPINE 03/08/2019 / / [id number] Vitoss Bimodal Foam Pack 10cc - [id number] Implanted:Qty : 1 on 10/11/2017 by Rosendo Nathan DO at [facility] N/A: Spine Lumbar SARAH : SPINE 02/05/2019 / / [id number] Screw Audie Bina 3 Ti Set - [id number] Implanted:Qty : 4 on 10/11/2017 by Rosendo Nathan DO at [facility] N/A: Spine Lumbar SARAH : SPINE [id number] / / 6.5 X 50 Mm Serrate Screws Implanted:Qty : 2 on 10/11/2017 by Rosendo Nathan DO at [facility] N/A: Spine Lumbar SARAH : SPINE [id number] / / 6.5 X 45 Mm Serrate Screw Implanted:Qty : 2 on 10/11/2017 by Rosendo Nathan DO at [facility] N/A: Spine Lumbar SARAH : SPINE [id number] / / 9 X 23x 6 - 9mm Pl Implanted:Qty : 1 on 10/11/2017 by Rosendo Nathan DO at [facility] N/A: Spine Lumbar SARAH : SPINE [id number] / / Shashank Bina 3 Ti 6x40mm - [id number] Implanted:Qty : 1 on 10/11/2017 by Rosendo Nathan DO at [facility] N/A: Spine Lumbar SARAH : SPINE [id number] / / Shashank Bina 3 Ti 6x45mm - [id number] Implanted:Qty : 1 on 10/11/2017 by Rosendo Nathan DO at [facility] N/A: Spine Lumbar SARAH : SPINE [id number] / / documented as of this encounter [...] and were consensually agreed upon. Care Teams Polisher And Buffer Relationship Specialty Start Date End Date Myesha Cavanaugh MD [address] [facility] [place] [address] PCP - General Family Medicine 02/18/22 documented as of this encounter
--- OUTSIDE RECORDS SUMMARY | 2024-04-17 01:53 | External Medical Summary | Summary of Care ---
Author Name Unknown Organization [facility] Address [address] [facility] [address] Phone [phone] Care Team Providers Care Assistant Media Planner Name Role Phone Myesha Cavanaugh MD Primary Care Provid er Reason for Visit * Reason Onset Date Comments Test Results Lab 10/27/2023 Encounter Details Date Type Department Care Team (Late st Contact Info) Description 10/27/2023 Telephone Hematology/Oncology [facility] [place] [address] [facility] [place] [address] Jenna Yanes CRNP [address] [place] [address] Test Results Lab Allergies Active Allergy Reactions Criticality Noted Date Comments Amoxicillin 01/05/2017 thrush Latex 06/20/2013 Hives, rash and swelling Lisinopril 06/02/2023 COUGH Nickel Rash 12/03/2020 documented as of this encounter (statuses as of 10/27/2023) Medications Medication Sig Dispensed Refills Start Date End Date Status Spiriva Respimat 2.5 MCG/ACT Inhalation Aerosol Solution (Tiotropium [place] Monohydrate) Inhale 2 Puffs by mouth daily. [...] NebulizerIndication s:Moderate persistent asthma without complication,COPD, moderate ([facility]) Inhale via nebulizer. Use as directed. 1 [...] encounter Miscellaneous Notes * Telephone Encounter - Chon Whitley MD [...] Description 10/31/2023 11:00 AM EST Imaging Radiology [facility] 1st [facility] [place] 132 [facility] [place] [address] 11/06/2023 3:00 PM EST Office Visit Hematology/Oncology [facility] [place] 200 [facility] [place] [address] Jenna Yanes CRNP [address] [place] [address] 01/18/2024 1:30 PM EDT Hospital Encounter ENDO [facility], Endoscopy Room [facility] [address] [place], [place] [phone] Erika Rios, DO [address] [place], [place] [address] 01/18/2024 1:30 PM EDT - 01/18/2024 2:30 PM EDT Surgery ENDO [facility], Endoscopy Room [facility] [address] [place] [phone] Erika Rios, [address] [place] [address] COLONOSCOPY FLEXIBLE PROXIMAL DIAGNOSTIC 01/23/2024 1:00 PM EDT Imaging Radiology [address], [place] [address] [place] [address] 03/15/2024 4:00 PM EDT Office Visit Nephrology, Char[facility] Marquis 200 [facility] [place], [place] [address] Chon Whitley MD [address] [place] [address] Scheduled Orders Name Type Priority Associated Diagnoses [...] this encounter Medical Devices Implanted Type Area Voice Studies Director Device Identifier Shelf Expiration Date Model / Serial / Lot Vitoss Bimodal Foam Pack 10cc - [id number] Implanted:Qty : 2 on 10/11/2017 by Rosendo Nathan DO at [facility] N/A: Spine Lumbar SARAH : SPINE 03/08/2019 / / [id number] Vitoss Bimodal Foam Pack 10cc - [id number] Implanted:Qty : 1 on 10/11/2017 by Rosendo Nathan DO at [facility] N/A: Spine Lumbar SARAH : SPINE 02/05/2019 / / [id number] Screw Audie Bina 3 Ti Set - [id number] Implanted:Qty : 4 on 10/11/2017 by Rosendo Nathan DO at [facility] N/A: Spine Lumbar SARAH : SPINE [id number] / / 6.5 X 50 Mm Serrate Screws Implanted:Qty : 2 on 10/11/2017 by Rosendo Nathan DO at [facility] N/A: Spine Lumbar SARAH : SPINE [id number] / / 6.5 X 45 Mm Serrate Screw Implanted:Qty : 2 on 10/11/2017 by Rosendo Nathan DO at [facility] N/A: Spine Lumbar SARAH : SPINE [id number] / / 9 X 23x 6 - 9mm Pl Implanted:Qty : 1 on 10/11/2017 by Rosendo Nathan DO at [facility] N/A: Spine Lumbar SARAH : SPINE [id number] / / Shashank Bina 3 Ti 6x40mm - [id number] Implanted:Qty : 1 on 10/11/2017 by Rosendo Nathan DO at [facility] N/A: Spine Lumbar SARAH : SPINE [id number] / / Shashank Bina 3 Ti 6x45mm - [id number] Implanted:Qty : 1 on 10/11/2017 by Rosendo Nathan DO at [facility] N/A: Spine Lumbar SARAH : SPINE [id number] / / documented as of this encounter [...] and were consensually agreed upon. Care Teams Assistant Media Planner Relationship Specialty Start Date End Date Myesha Cavanaugh MD [address] [place] [address] PCP - General Family Medicine 02/18/22 documented as of this encounter
--- OUTSIDE RECORDS SUMMARY | 2024-04-17 01:53 | External Medical Summary | Summary of Care ---
Author Name Unknown Organization [facility] Address [address] [facility] [place] [address] Phone [phone] Care Team Providers Care Supply Specialist Name Role Phone Myesha Cavanaugh MD Primary Care Provid er Encounter Details Date Type Department Care Team (Late st Contact Info) Description 10/28/2023 Orders Only PATIENT PORTAL DO NOT DELETE THIS DEPT USED BY [place] [address] Allergies Active Allergy Reactions Criticality Noted Date Comments Amoxicillin 01/05/2017 thrush Latex 06/20/2013 Hives, rash and swelling Lisinopril 06/02/2023 COUGH Nickel Rash 12/03/2020 documented as of this encounter (statuses as of 10/28/2023) Medications Medication Sig Dispensed Refills Start Date End Date Status Spiriva Respimat 2.5 MCG/ACT Inhalation Aerosol Solution (Tiotropium [place] Monohydrate) Inhale 2 Puffs by mouth daily. [...] as of this encounter (statuses as of 10/28/2023) Active Problems Problem Noted Date Diagnosed Date [...] as of this encounter (statuses as of 10/28/2023) Resolved Problems Problem Noted Date Diagnosed Date Resolved Date Food insecurity 04/19/2021 08/26/2021 Overview: Per [facility] Protocol Asthma exacerbation 03/30/2015 07/07/20 17 Moderate persistent asthma 11/09/2014 0 03/30/2015 Overview: PFT Pneumonitis 07/24/2014 01/06/2022 Asthma exacerbation 07/24/2014 03/30/20 15 documented as of this encounter (statuses as of 10/28/2023) Immunizations Name Administration Dates Next Due PPD [...] Description 10/31/2023 11:00 AM EST Imaging Radiology [facility] [address] [facility] 132 [facility] [place] [address] 11/06/2023 3:00 PM EST Office Visit Hematology/Oncology Char[facility] Marquis [place] 200 [facility] [place] [address] Jenna Yanes CRNP [address] [place] [id number] 01/18/2024 1:30 PM EDT Hospital Encounter ENDO [facility], Endoscopy Room [facility] [address] [place] [phone] Erika Rios, DO [address] [place] [address] 01/18/2024 1:30 PM EDT - 01/18/2024 2:30 PM EDT Surgery ENDO [facility], Endoscopy Room [facility] [address] [place] [phone] Erika Rios, [address] [place] [address] COLONOSCOPY FLEXIBLE PROXIMAL DIAGNOSTIC 01/23/2024 1:00 PM EDT Imaging Radiology [address], [place] [address] [place] [address] 03/15/2024 4:00 PM EDT Office Visit Nephrology, [facility] 200 [facility] [place] [address] Chon Whitley MD 200 [facility] [place] [address] Scheduled Procedures Name Priority Associated Diagnoses Date/Ti [...] encounter Medical Devices Implanted Type Area Matrix Supervisor Device Identifier Shelf Expiration Date Model / Serial / Lot Vitoss Bimodal Foam Pack 10cc - [id number] Implanted:Qty : 2 on 10/11/2017 by Rosendo Nathan, DO at [facility] N/A: Spine Lumbar SARAH : SPINE 03/08/2019 / / [id number] Vitoss Bimodal Foam Pack 10cc - [id number] Implanted:Qty : 1 on 10/11/2017 by Rosendo Nathan, DO at [facility] N/A: Spine Lumbar SARAH : SPINE 02/05/2019 / / [id number] Screw Audie Bina 3 Ti Set - [id number] Implanted:Qty : 4 on 10/11/2017 by Rosendo Nathan DO at [facility] N/A: Spine Lumbar SARAH : SPINE [id number] / / 6.5 X 50 Mm Serrate Screws Implanted:Qty : 2 on 10/11/2017 by Rosendo Nathan DO at [facility] N/A: Spine Lumbar SARAH : SPINE [id number] / / 6.5 X 45 Mm Serrate Screw Implanted:Qty : 2 on 10/11/2017 by Rosendo Nathan DO at [facility] N/A: Spine Lumbar SARAH : SPINE [id number] / / 9 X 23x 6 - 9mm Pl Implanted:Qty : 1 on 10/11/2017 by Rosendo Nathan DO at [facility] N/A: Spine Lumbar SARAH : SPINE [id number] / / Shashank Bina 3 Ti 6x40mm - [id number] Implanted:Qty : 1 on 10/11/2017 by Rosendo Nathan DO at [facility] N/A: Spine Lumbar SARAH : SPINE [id number] / / Shashank Bina 3 Ti 6x45mm - [id number] Implanted:Qty : 1 on 10/11/2017 by Rosendo Nathan DO at [facility] N/A: Spine Lumbar SARAH : SPINE [id number] / / documented as of this encounter Advance Directives Latest Code Status on File Code Status Date Activated Date Inactivated Comments Full Code 10/11/2017 9:23 AM 10/13/2017 10:36 PM This order reflects the patients wishes and were consensually agreed upon. Care Teams Supply Specialist Relationship Specialty Start Date End Date Myesha Cavanaugh MD [address] [place] [address] PCP - General Family Medicine 02/18/22 documented as of this encounter
--- OUTSIDE RECORDS SUMMARY | 2024-04-17 01:53 | External Medical Summary | Summary of Care ---
Author Name Unknown Organization [facility] Address [address] [place] [address] Phone [phone] Care Team Providers Care Overlock Operator Name Role Phone Олег Frias MD Primary Care Provid er Reason for Visit * Reason Comments eRx-Medication Refill Encounter Details Date Type Department Care Team (Late st Contact Info) Description 10/27/2023 Refill [facility] [address] [place] [phone] Олег Frias MD [address] [place] [address] Major depressive disorder with single episode, in full remission (HCC) Allergies Active Allergy Reactions Criticality Noted Date Comments Amoxicillin 01/05/2017 thrush Latex 06/20/2013 Hives, rash and swelling Lisinopril 06/02/2023 COUGH Nickel Rash 12/03/2020 documented as of this encounter (statuses as of 10/27/2023) Medications Medication Sig Dispensed Refills Start Date End Date Status Spiriva Respimat 2.5 MCG/ACT Inhalation Aerosol Solution (Tiotropium [place] Monohydrate) Inhale 2 Puffs by mouth daily. [...] the morning 90 Capsule 1 10/27/2023 Active FLUoxetine HCl 40 MG Oral [...] encounter Miscellaneous Notes * Telephone Encounter - Bijan Villalobos [facility] - 10/27/2023 5:03 PM ESTSigned Prescriptions: Disp Refills FLUoxetine HCl 40 MG Oral Capsule (PROzac) 90 Cap*1 Sig: Take 1 capsule by mouth in the morningAuthorizing Provider: ОЛЕГ FRIAS User: BIJAN VILLALOBOS documented in this encounter Plan of Treatment Upcoming Encounters Date Type Department Care Team (Latest Contact Info) Description 10/31/2023 11:00 AM EST Imaging Radiology [address] 132 [facility] [place] [address] 11/06/2023 3:00 PM EST Office Visit Hematology/Oncology [facility] 200 [place] [address] Jenna Yanes CRNP 400 [facility] [place] [address] 01/18/2024 1:30 PM EDT Hospital Encounter ENDO [facility], Endoscopy Room [facility] 132 [facility] [place] [phone] Erika Rios DO [address] [place] [address] 01/18/2024 1:30 PM EDT - 01/18/2024 2:30 PM EDT Surgery ENDO [facility], Endoscopy Room [facility] [address] [place] [phone] Erika Rios DO [address] [place] [address] COLONOSCOPY FLEXIBLE PROXIMAL DIAGNOSTIC 01/23/2024 1:00 PM EDT Imaging Radiology [facility] 1st Floor, [place] [address] [place] [address] 03/15/2024 4:00 PM EDT Office Visit Nephrology, [place] Marquis [address] [place] [address] Chon Whitley MD 200 [facility] [place] [address] Scheduled Procedures Name Priority Associated Diagnoses Date/Ti [...] encounter Medical Devices Implanted Type Area Manager Utilization Review Device Identifier Shelf Expiration Date Model / Serial / Lot Vitoss Bimodal Foam Pack 10cc - [id number] Implanted:Qty : 2 on 10/11/2017 by Rosendo Nathan DO at [facility] N/A: Spine Lumbar SARAH : SPINE 03/08/2019 / / [id number] Vitoss Bimodal Foam Pack 10cc - [id number] Implanted:Qty : 1 on 10/11/2017 by Rosendo Nathan DO at [facility] N/A: Spine Lumbar SARAH : SPINE 02/05/2019 / / [id number] Screw Audie Bina 3 Ti Set - [id number] Implanted:Qty : 4 on 10/11/2017 by Rosendo Nathan DO at [facility] N/A: Spine Lumbar SARAH : SPINE [id number] / / 6.5 X 50 Mm Serrate Screws Implanted:Qty : 2 on 10/11/2017 by Rosendo Nathan DO at [facility] N/A: Spine Lumbar SARAH : SPINE [id number] / / 6.5 X 45 Mm Serrate Screw Implanted:Qty : 2 on 10/11/2017 by Rosendo Nathan DO at [facility] N/A: Spine Lumbar SARAH : SPINE [id number] / / 9 X 23x 6 - 9mm Pl Implanted:Qty : 1 on 10/11/2017 by Jac, Rosendo Hair, DO at [facility] N/A: Spine Lumbar SARAH : SPINE [id number] / / Shashank Bian 3 Ti 6x40mm - [id number] Implanted:Qty : 1 on 10/11/2017 by Rosendo Nathan, DO at [facility] N/A: Spine Lumbar SARAH : SPINE [id number] / / Shashank Bina 3 Ti 6x45mm - [id number] Implanted:Qty : 1 on 10/11/2017 by Rosendo Nathan, DO at [facility] N/A: Spine Lumbar SARAH : SPINE [id number] / / documented as of this encounter [...] and were consensually agreed upon. Care Teams Overlock Operator Relationship Specialty Start Date End Date Олег Frias MD [address] [place] [id number] PCP - General Family Medicine 02/18/22 documented as of this encounter
--- OUTSIDE RECORDS SUMMARY | 2024-04-17 01:54 | External Medical Summary ---
Author Name Unknown Address Unknown Organization K01:[facility] [address] [place] [address] Laboratory Report Ordering Provider Test Date Status LUIS CORTEZ 10/25/2023 10:25:54 Final Observation Date Value Abnormality Reference (Units ) Status Ferritin 10/25/2023 10:25:54 1667 Above high normal 13 -150 (ng/mL) Final Postmenopausal women have hi gher ferritin levels than pre-menopausal women. The above reference interval is based on pre-menopausal women. Performing Location [facility] - [address] [place] [address]
--- OUTSIDE RECORDS SUMMARY | 2024-04-17 01:54 | External Medical Summary ---
Author Name Unknown Address Unknown Organization [id number]:LABORATORY [facility] [place] [address] [place] [address] Laboratory Report Ordering Provider Test Date Status LUIS CORTEZ 10/25/2023 10:25:54 Final Observation Date Value Abnormality Reference (Units ) Status Nucleated erythrocytes/100 leukocytes [Ratio] in Blood by Automated count 10/25/2023 10:25:54 Final Performing Location LABORATORY [place] [place] [address] [place] [address]
--- OUTSIDE RECORDS SUMMARY | 2024-04-17 01:54 | External Medical Summary ---
Author Name Unknown Address Unknown Organization [id number]:LABORATORY [place] [address] - [address] [place] [address] Laboratory Report Ordering Provider Test Date Status LUIS CORTEZ 10/25/2023 10:25:54 Final Observation Date Value Abnormality Reference (Units ) Status SYNC LEUKOCYTES IN BLOOD BY AUTOMATED COUNT 10/25/2023 10:25:54 14.35 Above high normal 4.00-10.80 (K/uL) Final Segs 10/25/2023 10:25:54 82.1 Above high normal 40.0-75.0 (%) Final Lymphs % 10/25/2023 10:25:54 9.0 Below low normal 18.0-42.0 (%) Final Monos 10/25/2023 10:25:54 8.7 1.0-11.0 (%) Final Eosinophils 10/25/2023 10:25:54 0.1 0.0-6.0 (%) Final Basos 10/25/2023 10:25:54 0.1 0.0-2.0 (%) Final Absolute Segs 10/25/2023 10:25:54 11.78 Above high normal 1.80-7.70 (K/uL) Final Lymphs, absolute 10/25/2023 10:25:54 1.29 1.00-4.80 (K/ul) Final Monos, Abs 10/25/2023 10:25:54 1.25 Above high normal 0.00-1.10 (K/uL) Final Eos, Abs 10/25/2023 10:25:54 0.02 0.00-0.70 (K/uL) Final Basos, Abs 10/25/2023 10:25:54 0.01 0.00-0.20 (K/uL) Final Performing Location LABORATORY [facility] [place] [address] [place] [address]
--- OUTSIDE RECORDS SUMMARY | 2024-04-17 01:54 | External Medical Summary | Summary of Care ---
Author Name Unknown Organization [facility] Address [address] [place] [address] Phone [phone] Care Team Providers Care Road Consultant Name Role Phone Олег Frias MD Primary Care Provid er Reason for Visit * Reason Comments eRx-Medication Refill Encounter Details Date Type Department Care Team (Late st Contact Info) Description 10/25/2023 Refill [facility] [address] [place] [id number] Олег Frias MD [address] [place] [address] Anxiety Allergies Active Allergy Reactions Criticality Noted [...] 05/02/2023 Active hydrOXYzine HCl 50 MG Oral TabletIndications [...] FOR ANXIETY 30 Tablet 0 10/27/2023 Active LORazepam 0.5 MG Oral Tablet (Ativan)Indicatio ns:Anxiety Take 1 Tablet by mouth daily as needed for Anxiety. 30 Tablet 0 08/07/2023 10/27/19 24 Discontinued documented as of this [...] Telephone Encounter - Олег Frias MD - 10/27/2023 7:33 AM EST Signed Prescriptions: Disp Refills LORazepam 0.5 MG Oral Tablet (Ativan) 30 Tab*0 Sig: TAKE 1 TABLET BY MOUTH ONCE DAILY NEEDED FOR ANXIETY Authorizing Provider: ОЛЕГ FRIAS * Telephone Encounter - Linda Singleton [facility] - 10/26/2023 6:01 AM EST Pending Prescriptions: Disp Refills LORazepam 0.5 MG Oral Tablet (Ativan) 30 Tab*0 Sig: TAKE 1 TABLET BY MOUTH ONCE DAILY NEEDED FOR ANXIETY * Telephone Encounter - Linda Singleton [facility] - 10/26/2023 6:00 AM EST I have reviewed the patients controlled substance dispensing history in the Prescription Drug Monitoring Program in compliance with the [facility] regulations before prescribing a controlled substance. PDMP checked on 10/26/2023. Pending Prescriptions: Disp Refills LORazepam 0.5 MG Oral Tablet (Ativan) [Ph*30 Tab*0 Sig: TAKE 1 TABLET BY MOUTH ONCE DAILY NEEDED FOR ANXIETY Last Visit: 09/01/2023 (in office), 10/16/2023 (telemedicine) Next Visit: Visit date not found Date medication was last filled: 08/07 Date medication is due for refill: 09/06 Pharmacy: [facility] [address] [place] [address] [place] Is this request for a controlled substance? Yes and Urine Drug Screen Not completed Toxicology results: No results found for this or any previous visit. Please approve if appropriate. Thank you, Linda Singleton, PharmD. Clinical Pharmacist [facility] ([facility]) (formerly Telepharmacy) 10/26/2023, 6:00 AM documented in this encounter Plan of Treatment Upcoming Encounters Date Type Department Care Team (Latest Contact Info) Description 10/31/2023 11:00 AM EST Imaging Radiology [address] [place] [address] 11/06/2023 3:00 PM EST Office Visit Hematology/Oncology [facility] [address] [facility] [place] [address] Jenna Yanes CRNP [address] [facility] [place] [address] 01/18/2024 1:30 PM EDT Hospital Encounter ENDO OSSC, Endoscopy Room [facility] [address] [place] [phone] Erika Rios DO [address] [place] [address] 01/18/2024 1:30 PM EDT - 01/18/2024 2:30 PM EDT Surgery ENDO OSSC, Endoscopy Room [facility] [address] [place] [phone] Erika Rios DO [address] [place] [address] COLONOSCOPY FLEXIBLE PROXIMAL DIAGNOSTIC 01/23/2024 1:00 PM EDT Imaging Radiology [address] [place] [address] 03/15/2024 4:00 PM EDT Office Visit Nephrology, [facility] [address] [facility] [place] [address] Chon Whitley MD [address] [place] [address] Scheduled Procedures Name Priority Associated Diagnoses Date/Ti [...] this encounter Medical Devices Implanted Type Area Certified Substance Abuse Counselor Device Identifier Shelf Expiration Date Model / Serial / Lot Vitoss Bimodal Foam Pack 10cc - [id number] Implanted:Qty : 2 on 10/11/2017 by Rosendo Nathan DO at [facility] N/A: Spine Lumbar SARAH : SPINE 03/08/2019 / / [id number] Vitoss Bimodal Foam Pack 10cc - [id number] Implanted:Qty : 1 on 10/11/2017 by Rosendo Nathan DO at [facility] N/A: Spine Lumbar SARAH : SPINE 02/05/2019 / / [id number] Screw Audie Bina 3 Ti Set - [id number] Implanted:Qty : 4 on 10/11/2017 by Rosendo Nathan DO at [facility] N/A: Spine Lumbar SARAH : SPINE [id number] / / 6.5 X 50 Mm Serrate Screws Implanted:Qty : 2 on 10/11/2017 by Rosendo Nathan DO at [facility] N/A: Spine Lumbar SARAH : SPINE [id number] / / 6.5 X 45 Mm Serrate Screw Implanted:Qty : 2 on 10/11/2017 by Rosendo Nathan DO at [facility] N/A: Spine Lumbar SARAH : SPINE [id number] / / 9 X 23x 6 - 9mm Pl Implanted:Qty : 1 on 10/11/2017 by Rosendo Nathan DO at [facility] N/A: Spine Lumbar SARAH : SPINE [id number] / / Shashank Bina 3 Ti 6x40mm - [id number] Implanted:Qty : 1 on 10/11/2017 by Rosendo Nathan DO at [facility] N/A: Spine Lumbar SARAH : SPINE [id number] / / Shashank Bina 3 Ti 6x45mm - [id number] Implanted:Qty : 1 on 10/11/2017 [facility] N/A: Spine Lumbar SARAH : SPINE [id number] / / documented as of this encounter Visit Diagnoses Diagnosis Anxiety Anxiety state, unspecified Nausea & vomiting Nausea with vomiting Unintentional weight loss Loss of weight documented in this encounter Advance Directives Latest Code Status on File Code Status Date Activated Date Inactivated Comments Full Code 10/11/2017 9:23 AM 10/13/2017 10:36 PM This order reflects the patients wishes and were consensually agreed upon. Care Teams Road Consultant Relationship Specialty Start Date End Date Олег Frias MD [address] [facility] [place] [phone] PCP - General Family Medicine 02/18/22 documented as of this encounter
--- OUTSIDE RECORDS SUMMARY | 2024-04-17 01:54 | External Medical Summary | Summary of Care ---
Author Name Unknown Organization [facility] Address [address] [place] [address] Phone [phone] Care Team Providers Care Family Service Counselor Name Role Phone Myesha Cavanaugh MD Primary Care Provid er Reason for Visit * Reason Comments Outpatient Testing Encounter Details Date Type Department Care Team (Late st Contact Info) Description 10/25/2023 10:00 AM EST Laboratory Laboratory, [facility] [address] [place] [phone] [facility] [address] [place] [address] Microcytic anemia Allergies Active Allergy Reactions Criticality Noted Date Comments Amoxicillin 01/05/2017 thrush Latex 06/20/2013 Hives, rash and swelling Lisinopril 06/02/2023 COUGH Nickel Rash 12/03/2020 documented as of this encounter (statuses as of 10/25/2023) Medications Medication Sig Dispensed Refills Start Date End Date Status Spiriva Respimat 2.5 MCG/ACT Inhalation Aerosol Solution (Tiotropium [place] Monohydrate) Inhale 2 Puffs by mouth daily. [...] NebulizerIndication s:Moderate persistent asthma without complication,COPD, moderate ([facility]) Inhale via nebulizer. Use as directed. 1 [...] AT BEDTIME 90 Tablet 1 08/05/2023 Active LORazepam 0.5 MG Oral Tablet (Ativan)Indications :Anxiety Take 1 Tablet by mouth daily as needed for Anxiety. 30 Tablet 0 08/07/2023 Active Montelukast Sodium 10 MG Oral Tablet [...] before bedtime. 60 Capsule 3 10/16/2023 Active documented as of this encounter (statuses as of 10/25/2023) Active Problems Problem Noted Date Diagnosed Date [...] as of this encounter (statuses as of 10/25/2023) Resolved Problems Problem Noted Date Diagnosed Date Resolved Date Food insecurity 04/19/2021 08/26/2021 Overview: Per [facility] Protocol Asthma exacerbation 03/30/2015 07/07/20 17 Moderate persistent asthma 11/09/2014 0 03/30/2015 Overview: PFT Pneumonitis 07/24/2014 01/06/2022 Asthma exacerbation 07/24/2014 03/30/20 15 documented as of this encounter (statuses as of 10/25/2023) Immunizations Name Administration Dates Next Due PPD [...] Date Recorded PHQ Adult Total Score 14 08/02/2023 Hunger Vital Sign Answer Date Recorded Within [...] Description 10/31/2023 11:00 AM EST Imaging Radiology [address] [facility] [place] [address] 11/06/2023 3:00 PM EST Office Visit Hematology/Oncology [facility] [address] [facility] [place] [address] Jenna Yanes CRNP [address] [place] [address] 01/18/2024 1:30 PM EDT Hospital Encounter ENDO OSSC, Endoscopy Room [facility] [address] [place] [phone] Erika Rios, [address] [place] [address] 01/18/2024 1:30 PM EDT - 01/18/2024 2:30 PM EDT Surgery ENDO O[facility], Endoscopy Room [facility] [address] [place] [phone] Erika Rios DO [address] [place] [address] COLONOSCOPY FLEXIBLE PROXIMAL DIAGNOSTIC 01/23/2024 1:00 PM EDT Imaging Radiology [address] [place] [address] 03/15/2024 4:00 PM EDT Office Visit Nephrology, [facility] [address] [facility] [place] [address] Chon Whitley MD [address] [facility] [place] [address] Pending Results Name Type Priority Associated Diagnoses Date /Time CBC WITH WBC DIFFERENTIAL Lab Routine Microcytic anemia 10/25/2023 10:25 AM EST COMPREHENSIVE METABOLIC PANEL Lab Routine Microcytic anemia 10/25/2023 10:25 AM EST FERRITIN Lab Routine Microcytic anemia 10/25/2023 10:25 AM EST IRON SCREEN, INCLUDING TIBC Lab Routine Microcytic anemia 10/25/2023 10:25 AM EST CBC Lab Routine Microcytic anemia 10/25/2023 10:25 AM EST DIFFERENTIAL, AUTOMATED Lab Routine Microcytic anemia 10/25/2023 10:25 AM EST Scheduled Procedures Name Priority Associated Diagnoses Date/Ti me COLONOSCOPY FLEXIBLE PROXIMA L DIAGNOSTIC Nausea & vomiting Unintentional weight loss 01/18/2024 1:30 PM EDT ESOPHAGOGASTRODUODENOSCOPY ( EGD), FLEXIBLE, TRANSORAL, DIAGNOSTIC Nausea & vomiting Unintentional weight loss 01/18/2024 1:30 PM EDT Health Maintenance Due Date Last Done Comments Hepatitis B (1 of 3 - 3-dose series) 1969 COVID-19 Vaccine (#1) 1969 HIV Screening 1984 Alpha-1 Antitrypsin 1987 HPV/Co-Test 1999 Cologuard 2014 Fecal Occult Blood Test 2014 Sigmoidoscopy 2014 Pneumococcal Vaccine: Pediatrics (0 to 5 Years) and At-Risk Patients (6 to 64 Years) (2 - PCV) 06/20/2014 06/20/2013 Zoster Vaccines (1 of 2) 2019 Cervical Cancer Screening 07/07/2020 Pap Smear 07/07/2020 07/07/2017, 07/16/2013 Influenza Vaccine (FLU shot) (#1) 2023 07/07/2017, 06/20/2013 DTaP,Tdap,and Td Vaccines (2 - Td or Tdap) 06/20/2023 06/20/2013 Depression, Most Recent Score >= 10 (will fire each visit until score < 10) 08/03/2023 08/02/2023 Mammogram 01/18/2024 01/17/2023, 05/0 05/2023, 06/27/2013 O2 ASSESSMENT COMPLETED IN PAST YEAR FOR COPD 09/01/2024 09/01/2023 GFR 09/23/2024 09/23/2023, /10/2022, 01/31/2023, Additional history exists Albumin/Creatinine Ratio 09/01/2026 09/01/2023 Lipid Panel 05/11/2027 05/11/2022 Colonoscopy 09/27/2033 09/27/2023 Colorectal Cancer Screening 09/27/2033 GARDASIL-HPV IMMUNIZATION SERIES Aged Out No longer eligible based on patient's age to complete this topic MENINGOCOCCAL (MENACTRA/MENVEO) Aged Out No longer eligible based on patient's age to complete this topic documented as of this encounter Medical Devices Implanted Type Area Director Selection And Administration Device Identifier Shelf Expiration Date Model / Serial / Lot Shashank Bina 3 Ti 6x45mm - [id number] Implanted:Qty: 1 on 10/11/2017 by Rosendo Nathan DO at [facility] N/A: Spine Lumbar SARAH : SPINE [id number] / / documented as of this encounter Visit Diagnoses Diagnosis Microcytic anemia Iron deficiency anemia, unspecified Nausea & vomiting Nausea with vomiting Unintentional weight loss Loss of weight documented in this encounter Advance Directives Latest Code Status on File Code Status Date Activated Date Inactivated Comments Full Code 10/11/2017 9:23 AM 10/13/2017 10:36 PM This order reflects the patients wishes and were consensually agreed upon. Care Teams Family Service Counselor Relationship Specialty Start Date End Date Myesha Cavanaugh MD [address] [place], [place] [phone] PCP - General Family Medicine 02/18/22 documented as of this encounter
--- OUTSIDE RECORDS SUMMARY | 2024-04-17 01:54 | External Medical Summary ---
Author Name Unknown Address Unknown Organization [id number]:LABORATORY [facility] - [address] [facility] [place] [address] Laboratory Report Ordering Provider Test Date Status LUIS CORTEZ 10/25/2023 10:25:54 Final Observation Date Value Abnormality Reference (Units ) Status Iron 10/25/2023 10:25:54 50 33-151 (ug/dL) Final Iron-binding capacity 10/25/2023 10:25:54 184 Below low normal 250-425 (ug/dL) Final Transferrin Sat % 10/25/2023 10:25:54 27 15-55 (%) Final Performing Location [facility]ORY [facility] - [address] [facility] [address]
--- OUTSIDE RECORDS SUMMARY | 2024-04-17 01:54 | External Medical Summary ---
Author Name Unknown Address Unknown Organization K01:LABORATORY C - [address] [facility] [place] [address] Laboratory Report Ordering Provider Test Date Status LUIS CORTEZ 10/25/2023 10:25:54 Final Observation Date Value Abnormality Reference (Units ) Status BUN 10/25/2023 10:25:54 11 6-20 (mg/dL) Final Creatinine 10/25/2023 10:25:54 1.3 Above high normal 0.5-1.0 (mg/dL) Final Glomerular filtration rate/1.73 sq M.predicted [Volume Rate/Area] in Serum, Plasma or Blood by Creatinine-based formula (CKD-EPI) 10/25/2023 10:25:54 48 Below low normal >=60 (mL/min) Final eGFR is calculated based on the CKD-EPI 2020 equation SODIUM 10/25/2023 10:25:54 125 Below low normal 135 -146 (mmol/L) Final Potassium 10/25/2023 10:25:54 3.2 Below low normal 3.5 -5.1 (mmol/L) Final Cl 10/25/2023 10:25:54 87 Below low normal 98- 107 (mmol/L) Final CO2 10/25/2023 10:25:54 21 Below low normal 22- 32 (mmol/L) Final Anion gap 10/25/2023 10:25:54 17 Above high normal 7- 15 (mmol/L) Final Glucose 10/25/2023 10:25:54 119 70-120 (mg /dL) Final Albumin 10/25/2023 10:25:54 3.9 3.8-5.0 (g /dL) Final AST (Aspartate aminotransferase) 10/25/2023 10:25:54 149 Above high normal 10-35 (U/L) Final Alk Phos 10/25/2023 10:25:54 138 Above high normal 35 -130 (U/L) Final Bilirubin, Total 10/25/2023 10:25:54 0.4 <=1 .2 (mg/dL) Final Calcium 10/25/2023 10:25:54 9.5 8.4-10.2 ( mg/dL) Final Protein 10/25/2023 10:25:54 6.2 6.0-8.3 (g /dL) Final ALT (Alanine aminotransferase) 10/25/2023 10:25:54 140 Above high normal 10-35 (U/L) Final Performing Location LABORATORY [facility] - [address] [place] [facility] [address]
--- OUTSIDE RECORDS SUMMARY | 2024-04-17 01:54 | External Medical Summary ---
Author Name Unknown Address Unknown Organization K0G:LABORATORY [facility] [place] [address] - [address] [place] [address] Laboratory Report Ordering Provider Test Date Status LUIS CORTEZ 10/25/2023 10:25:54 Final Observation Date Value Abnormality Reference (Units ) Status WBC, Total 10/25/2023 10:25:54 14.35 Above high normal 4 .00-10.80 (K/uL) Final RBC 10/25/2023 10:25:54 2.85 3.85-5.15 (M/uL) Final Hemoglobin 10/25/2023 10:25:54 9.8 Below low normal 12 .0-15.3 (g/dL) Final HCT 10/25/2023 10:25:54 26.2 Below low normal 36. 0-45.2 (%) Final MCV 10/25/2023 10:25:54 91.9 81.5-97.5 (fL) Final MCH 10/25/2023 10:25:54 34.4 27.0-34.0 (pg) Final MCHC 10/25/2023 10:25:54 37.4 32.0-36.0 (g/dL) Final RDW 10/25/2023 10:25:54 12.9 11.5-15.5 (%) Final Platelets 10/25/2023 10:25:54 296 140-400 (K /uL) Final MPV 10/25/2023 10:25:54 10.0 6.6-11.1 ( fL) Final Performing Location LABORATORY [facility] [place] [address] [place] [address]
[2024-04-17] MEDS: LACTATED RINGER'S 1,000 ML IV SCH (03:51)
[2024-04-17 06:11] LABS: Basophils # (auto) 0.02 K/uL (0.00-0.20); Basophils % (auto) 0.2 %; Eosinophils # (auto) 0.11 K/uL (0.00-0.50); Eosinophils % (auto) 0.8 %; Hematocrit (blood only) 27.1 % (37.0-47.0); Hemoglobin 9.3 g/dl (12.0-16.0); Immature Granulocytes # (auto) 0.13 K/uL (0.01-0.20); Lymphocytes # (auto) 3.94 K/uL (1.20-3.40); Lymphocytes % (auto) 30.4 %; Mean Corpuscular Hemoglobin 30.3 pg (25.0-34.0); Mean Corpuscular Hgb Conc 34.3 g/dL (32.0-36.0); Mean Corpuscular Volume 88.3 fL (80.0-100.0); Mean Platelet Volume 9.5 fL (9.4-12.4); Monocytes # (auto) 1.15 K/uL (0.11-0.59); Monocytes % (auto) 8.9 %; Neutrophils % (auto) 58.7 %; Platelet Count 453 K/uL (130-400); RDW Coefficient of Variation 15.4 % (11.5-14.5); RDW Standard Deviation 49.1 fL (36.4-46.3); Red Blood Count 3.07 M/uL (4.20-5.40); White Blood Count 12.95 K/ul (4.8-10.8)
[2024-04-17 06:12] LABS: BUN Creatinine Ratio 14.3 (10-20); Calcium 8.6 mg/dl (8.6-10.3); Creatinine Clr Calc Pharmacy 68.3 ml/min; Est GFR (African American) 100.7 ml/min; Est GFR (Non-African American) 86.9 ml/min; Magnesium 1.3 mg/dl (1.7-2.4); Potassium 3.5 mmol/L (3.5-5.1)
[2024-04-17] MEDS: GABAPENTIN 600 MG TAB PO SCH ×2 (07:27→21:05)
[2024-04-17] MEDS: LORazepam 0.5 MG TAB PO PRN (07:28)
--- NOTE | 2024-04-17 08:28 | Electrocardiogram Report ---
Test Reason : Blood Pressure : */* mmHG Vent. Rate : 97 BPM Atrial Rate : 97 BPM P-R Int : 156 ms QRS Dur : 80 ms QT Int : 358 ms P-R-T Axes : 51 30 44 degrees QTcB Int : 454 ms Normal sinus rhythm Possible Left atrial enlargement Cannot rule out Anterior infarct , age undetermined Abnormal ECG When compared with ECG of 08-Mar-2023 14:12, No significant change was found Confirmed by Tramaine Hernandes ([id number]) on 04/17/2024 8:27:53 AM Referred By: REFERRED SELF Confirmed By: Tramaine Hernandes
[2024-04-17 08:33] LABS: Troponin I High Sensitivity 2.9 pg/ml (0-14)
[2024-04-17] MEDS ORDERED: NON-FORMULARY MEDICATION (Omeprazole 20 mg capsule,delayed release(DR/EC)) PO SCH (09:00)
[2024-04-17] MEDS ORDERED: PREGABALIN 150 MG CAP PO SCH (09:00)
[2024-04-17] MEDS ORDERED: FLUoxetine HCL 20 MG CAP PO SCH ×2 (09:00)
[2024-04-17] MEDS: amLODIPine BESYLATE 5 MG TAB PO SCH (09:12)
[2024-04-17] MEDS: DULoxetine HCL 60 MG CAP PO SCH (09:14)
[2024-04-17] MEDS: FOLIC ACID 1 MG TAB PO SCH (09:15)
[2024-04-17] MEDS: FLUTICASONE/VILANTEROL 200/25MCG 14 PUFFS/INHALER INH SCH (09:15)
[2024-04-17] MEDS: LOSARTAN POTASSIUM 50 MG TAB PO SCH (09:16)
[2024-04-17] MEDS: THIAMINE HCL 100 MG TAB PO SCH (09:18)
--- NOTE | 2024-04-17 10:04 | Gastrointestinal Consultation ---
Date of Consultation April 17, 2024 Assessment & Plan (1) Acute pancreatitis: 54 year old female with history of HTN, asthma, COPD, depression, fibromyalgia, GERD, alcohol use, tobacco use, chronic mild macrocytic anemia, folic acid deficiency, MGUS, ETOH abuse and others below admitted through the ED with abdominal pain, nausea, imaging consistent with acute pancreatitis and a 2.5 CM pancreatic head cyst with mild pancreatic ductal dilation. Pancreatitis - Suspect ETOH induced - ETOH cessation recommended - ETOH withdrawal protocol - NPO for bowel rest - May advance to a liquid diet once abd pain is improving - LR 200-250 mL/hr - Watch for 2pt drop in HGB - No need to trend lipase - Follow [employer] TENDER, glucose - Antiemetics PRN - Analgesia PRN - Encouraged OOB and ambulating as tolerated Gallbladder sludge - Noted on 2023 EUS - May consider OP general surgery evaluation - With normal LFTs, low suspicion for an obstructive/passed stone Pancreatic cyst - CTAP at [facility] 10/2023 w/ 1.3 cm cyst and a 6mm pancreatic ductal dilation - EUS at [facility] w/ 6 mm cyst without worrisome feature but a 1 year recall was recommended - CTAP at [facility] 04/17 w/ 2.5 cm cyst w/ mild pancreatic ductal dilation - Recommend she follow up with [facility] for evaluation of repeat EUS I spent a total of 60 minutes on the date of service in review of patient's record, and previously obtained information in person and appropriate medical visit, discussion and education of plan, with patient and/or caregiver, placing orders for tests/referral/procedures as medically necessary and documentation of pertinent clinical information in patient's medical records for their visit today. Supervising Physician Co-Signing Physician Notes I personally saw and examined the patient. I have reviewed the chart and agree with the documentation provided by the MANAGER BOOKS including discussion about the assessment, treatment and plan. Briefly, 54 year old female with history of HTN, asthma, COPD, depression, fibromyalgia, GERD, alcohol use, tobacco use, chronic mild macrocytic anemia, folic acid deficiency, MGUS, ETOH abuse and others below admitted through the ED with abdominal pain, nausea, imaging consistent with acute pancreatitis and a 2.5 CM pancreatic head cyst with mild pancreatic ductal dilation. PD is dilated to 6 mm on scan increased in size. Acute etoh pancreatitis with an enlarging 2.5 cm panc head cyst and pd dilation. Need her to stop ETOH completely. Her pain is slowly getting better. IVF and pain control. At this point, can do full liquid diet. Will need outpt EUS after she improves clinically given the increased panc head cyst and pd dilation. History of Present Illness Reason for Consultation: acute pancreatitis Requesting Physician: Karina Attending Physician: Fer Collins, DO History of Present Illness 54 year old female with history of HTN, asthma, COPD, depression, fibromyalgia, GERD, alcohol use, tobacco use, chronic mild macrocytic anemia, folic acid deficiency, MGUS, ETOH abuse and others below admitted through the ED w/ abdominal pain - imaging consistent with pancreatitis. GI was asked to evaluate. Pt was seen and evaluated, chart reviewed. She suggest abd pain x 1 week. At first, she thought this was related to constipation/gas from opioid analgesia use but notes the pain progressively worsened, associated with nausea and she sought ED care. Denies vomiting, fevers. She has had some improvement of her constipation with different OTC laxatives, suggests semi-formed/formed dark brown stools. No black or bloody stools. Denies new medications/supplements Reports daily tobacco use Reports daily ETOH use, estimates either 6 mixed drinks and 6 beers daily Tbili 0.4 AST 14 ALT 11 ALKP 75 Lipase 911 CTAP 2023: Acute pancreatitis without peripancreatic fluid collection 2.5 cm cyst within the pancreatic head.. Mild pancreatic ductal dilatation. ERCP recommended for further evaluation. CTAP 2023: Dilated pancreatic duct up to 6 mm at the head and 4.6 mm at the body, increased since prior studies. 1.3 cm cyst or cystic lesion at the pancreatic tail appears new since the prior studies. MRI pancreas without and with contrast, as well as MRCP recommended. EUS 2023: - Normal esophagus. Normal stomach. Normal duodenal bulb and second portion of the duodenum. There was no sign of significant pathology in the ampulla. There was no sign of significant pathology in the common bile duct. Hyperechoic material consistent with sludge was visualized endosonographically in the gallbladder.There was no evidence of significant pathology in the visualized portion of the liver. Pancreatic parenchymal abnormalities consisting of hyperechoic strands and hyperechoic foci were noted in the entire pancreas. PD measured 4 mm in diameter. A 6 mm cyst was seen in the pancreatic tail with no worrisome features. No specimens collected. EUS 2021: There was no sign of significant pathology in the ampulla. There was no sign of significant pathology in the common bile duct. No stones or sludge. There was no sign of suggestive of fatty infiltration. Fine needle biopsy performed. Pancreatic parenchymal abnormalities consisting of hyperechoic strands and hyperechoic foci were noted in the pancreatic head.Endosonographic images of the left adrenal gland were unremarkable.The celiac trunk was endosonographically normal. Allergies Allergy/AdvReac Type Severity Reaction Status Date / Time latex Allergy Intermediate ITCHY Verified 04/16/24 20:05 nickel Allergy Intermediate Rash Verified 04/16/24 20:05 amoxicillin AdvReac Intermediate thrush Verified 04/16/24 20:05 Home Medications Medication Instructions Recorded Confirmed Type albuterol sulfate 90 mcg/actuation 2 puff inhalation Q4 PRN Shortness 09/25/19 04/16/24 History aerosol inhaler Of Breath Or Wheezing loratadine 10 mg tablet 10 mg PO QDL 09/25/19 04/16/24 History lorazepam 0.5 mg tablet 0.5 mg PO BID PRN Anxiety 09/25/19 04/16/24 History trazodone 50 mg tablet 50 mg PO HS 09/25/19 04/16/24 History duloxetine 60 mg capsule,delayed 60 mg PO QAM 03/08/23 04/16/24 History release mometasone-formoterol HFA 200 2 puff inhalation BID 03/08/23 04/16/24 History mcg-5 mcg/actuation aerosol inhaler (Dulera) omeprazole 20 mg capsule,delayed 20 mg PO DAILY 03/08/23 04/16/24 History release pregabalin 150 mg capsule 150 mg PO AMHS 03/08/23 04/16/24 History folic acid 1 mg tablet 2 mg (2 x 1 mg) PO DAILY #60 tabs 03/11/23 04/16/24 Rx losartan 50 mg tablet 50 mg PO DAILY #30 tabs 03/11/23 04/16/24 Rx amlodipine 5 mg tablet (Norvasc) 5 mg PO QAM 04/16/24 04/16/24 History cyclobenzaprine 5 mg tablet 5 mg PO TID PRN MUSCLE SPASMS 04/16/24 04/16/24 History doxycycline hyclate 100 mg capsule 100 mg PO BID 04/16/24 04/16/24 History fluoxetine 20 mg capsule 20 mg PO QAM 04/16/24 04/16/24 History fluoxetine 40 mg capsule 40 mg PO QAM 04/16/24 04/16/24 History hydrocodone 7.5 mg-acetaminophen 1 tab PO Q12H PRN Pain 04/16/24 04/16/24 History 325 mg tablet hydroxyzine HCl 50 mg tablet 50 mg PO Q6H PRN ITCHING/ANXIETY 04/16/24 04/16/24 History montelukast 10 mg tablet 10 mg PO HS 04/16/24 04/16/24 History oxycodone-acetaminophen 10 mg-325 1 tab PO Q6H PRN Pain 04/16/24 04/16/24 History mg tablet Patient History Medical History Alcohol abuse Asthma Chronic anemia Chronic hyponatremia Depression Fibromyalgia GERD (gastroesophageal reflux disease) HTN (hypertension) Moderate persistent asthma Tobacco use Vancomycin-induced nephrotoxicity Surgical History History of spinal surgery Hx of tonsillectomy Family History Other Asthma Cancer Social History Smoking Status: Light tobacco smoker Tobacco Type: Cigarettes Cigarettes Per Day: 3; Second Hand Exposure: Yes; Do You Dip or Chew Tobacco: No; Tobacco Cessation Education Requested by Patient: No Hx Alcohol Use: Yes Alcohol type: beer Alcohol Intake Frequency Comment: 5-6 daily Hx Substance Use: No Preferred Language: [place]an Communication Ability: Effective 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 Physical Exam Constitutional: WD/WN, vitals as above Respiratory: normal respiratory effort, lungs clear to auscultation Cardiovascular: Rate/Rhythm: regular rate and regular rhythm Gastrointestinal (Abdomen): Inspection/Auscultation: abdomen normal to inspection Percussion/Palpation: + abdomen tender and abdomen soft; no guarding and abdomen not rigid Skin: no rashes, warm and dry Results & Data Vital Signs (Past 12 Hours) Vital Signs Temp Pulse Pulse Resp BP BP Pulse Ox 04/17/24 07:45 36.6 C 70 18 151/84 H 96 04/17/24 02:28 36.6 C 63 18 124/74 94 04/17/24 01:55 83 04/17/24 00:04 36.4 C L 81 16 123/79 92 04/16/24 23:26 132/81 04/16/24 23:06 86 15 94 04/16/24 23:02 87 O2 Del Method 04/17/24 07:45 Room Air 04/17/24 02:28 Room Air 04/17/24 01:55 04/17/24 00:04 Room Air 04/16/24 23:26 04/16/24 23:06 Room Air 04/16/24 23:02 Laboratory Results 04/17/24 04/16/24 04/16/24 Range/Units 05:33 21:47 18:27 WBC 12.95 H 20.30 H (4.8-10.8) K/ul RBC 3.07 L 3.24 L (4.20-5.40) M/uL Hgb 9.3 L 9.9 L (12.0-16.0) g/dl Hct 27.1 L 27.7 L (37.0-47.0) % MCV 88.3 85.5 (80.0-100.0) fL MCH 30.3 30.6 (25.0-34.0) pg MCHC 34.3 35.7 (32.0-36.0) g/dL RDW Std Deviation 49.1 H 47.6 H (36.4-46.3) fL RDW Coeff of Amos 15.4 H 15.4 H (11.5-14.5) % Plt Count 453 H 511 H (130-400) K/uL MPV 9.5 9.6 (9.4-12.4) fL Immature Gran % (Auto) 1.0 0.8 % Neut % (Auto) 58.7 69.3 % Lymph % (Auto) 30.4 22.7 % [place] % (Auto) 8.9 7.0 % Eos % (Auto) 0.8 0.1 % Baso % (Auto) 0.2 0.1 % Neut # (Auto) 7.60 H 14.05 H (1.40-6.50) K/uL Lymph # (Auto) 3.94 H 4.61 H (1.20-3.40) K/uL [place] # (Auto) 1.15 H 1.43 H (0.11-0.59) K/uL Eos # (Auto) 0.11 0.02 (0.00-0.50) K/uL Baso # (Auto) 0.02 0.03 (0.00-0.20) K/uL Immature Gran # (Auto) 0.13 0.16 (0.01-0.20) K/uL Sodium 137 134 L (136-145) mmol/L Potassium 3.5 3.4 L (3.5-5.1) mmol/L Chloride 105 99 (98-107) mmol/L Carbon Dioxide 27 26 (21-32) mmol/L Anion Gap 5 9 (3-11) BUN 11 17 (6-23) mg/dl Creatinine 0.77 0.92 (0.6-1.2) mg/dl Est Cr Clr Drug Dosing 68.3 57.2 ml/min Est GFR ( Amer) 100.7 81.2 ml/min Est GFR (Non-Af Amer) 86.9 70.1 ml/min BUN/Creatinine Ratio 14.3 18.5 (10-20) Glucose 88 90 (70-99(Fasting)) mg/dl Calcium 8.6 9.6 (8.6-10.3) mg/dl Magnesium 1.3 L (1.7-2.4) mg/dl Total Bilirubin 0.4 (0.2-1.0) mg/dl AST 14 (13-39) U/L ALT 11 (7-52) U/L Alkaline Phosphatase 75 (34-104) U/L Troponin I High Sens 2.9 (0-14) pg/ml Total Protein 6.8 (6.0-8.3) gm/dl Albumin 3.7 (3.4-5.0) gm/dl Globulin 3.1 (2.5-4.0) gm/dl Albumin/Globulin Ratio 1.2 (0.9-2) Lipase 911 H (11-82) U/L Urine Color Yellow Urine Appearance Clear (Clear) Urine pH 7.0 (4.5-7.5) Ur Specific [place] 1.027 (1.000-1.030) Urine Protein Negative (Negative) Urine Glucose (UA) Negative (Negative) Urine Ketones Negative (Negative) Urine Blood Negative (Negative) Urine Nitrite Negative (Negative) Urine Bilirubin Negative (Negative) Urine Urobilinogen Negative (Negative) Ur Leukocyte Esterase 1+ H (Negative) Urine WBC (Auto) 0-5 (0-5) /hpf Urine RBC (Auto) 0-2 (0-2) /hpf U Hyaline Cast (Auto) 0-2 (0-2) /lpf U Epithel Cells (Auto) 0-2 (0-2) /hpf Urine Bacteria (Auto) None Seen (None Seen) PG Care Time/CCT Total # of Minutes Spent Total Time Spent with Patient: Total time spent is greater than 50% in coordination of care (as documented) at patient's floor/unit and/or counseling patient: Coding Level of Care Code 61233 INT INP/OBS CARE MIN Diagnoses Acute pancreatitis K85.90 Acute pancreatitis complication: unspecified Pancreatitis type: unspecified pancreatitis type (1) Acute pancreatitis Acute pancreatitis complication: unspecified Pancreatitis type: unspecified pancreatitis type Qualified Code(s): K85.90 - Acute pancreatitis without necrosis or infection, unspecified
[2024-04-17] MEDS: LORATADINE 10 MG TAB PO SCH (12:18)
[2024-04-17] MEDS: HYDROCODONE/ACETAMINOPHEN 7.5/325MG TAB PO PRN (12:27)
--- NOTE | 2024-04-17 13:02 | Hospitalist Progress Note ---
Date of Service April 17, 2024 Assessment & Plan (1) Acute pancreatitis: (2) Alcohol abuse: (3) Alcoholic cerebellar degeneration: Plan Patient with acute alcohol induced pancreatitis, continue bowel rest, advance diet as tolerated Reviewed gastroenterology consultation, no indication for any type of further evaluation or endoscopy this hospitalization, can follow-up with outpatient GI for chronic pancreatic cyst and mildly dilated pancreatic duct. Continue to monitor for alcohol withdrawal Replace magnesium Leukocytosis most likely inflammatory from pancreatitis, no evidence of bacterial infection, discontinue ceftriaxone Okay to [facility] Admission and Anticipated Discharge Date Admission Date: April 16, 2024 Subjective Abdominal pain is slightly improved Physical Exam Physical Exam: Constitutional: Alert HEENT: Mucous membranes moist. Lungs: Clear to auscultation, decreased, no wheezes rales or rhonchi CV: S1-S2, regular Abdomen: Soft, mild epigastric tenderness, mild guarding, no rigidity Extremities: No significant edema Neuro: No focal deficits Psych: Cooperative, normal mood Results & Data Results & Data Vital Signs (Past 12 Hours) Vital Signs Temp Pulse Pulse Resp BP Pulse Ox O2 Del Method 04/17/24 12:00 36.4 C L 65 18 135/85 92 Room Air 04/17/24 10:29 65 04/17/24 07:45 36.6 C 70 18 151/84 H 96 Room Air 04/17/24 02:28 36.6 C 63 18 124/74 94 Room Air 04/17/24 01:55 83 Diagnostic Findings Reviewed imaging, laboratory and diagnostic studies. Pertinent findings as below. WBCs 12.9, significantly improved Hemoglobin 9.3, baseline (1) Acute pancreatitis Acute pancreatitis complication: unspecified Pancreatitis type: alcohol induced Qualified Code(s): K85.20 - Alcohol induced acute pancreatitis without necrosis or infection
[2024-04-17] MEDS: MAGNESIUM SULFATE / D5W 1 GM/100 ML BAG IV SCH (13:34)
[2024-04-17] MEDS: CALCIUM CARBONATE 500 MG CHEWABLE TAB PO PRN (18:04)
[2024-04-17] MEDS: NICOTINE 21 MG/24 HR TDSY TD SCH (18:43)
[2024-04-17] MEDS: oxyCODONE HCL IR 5 MG TAB (IMMEDIATE RELEASE) PO PRN (18:45)
[2024-04-17] MEDS ORDERED: cefTRIAXone SODIUM 2,000 MG/50 ML BAG IV SCH (21:00)
[2024-04-17] MEDS: NSS + 20MEQ KCL 20 MEQ/1,000 ML BAG IV SCH (21:03)
[2024-04-17] MEDS: MONTELUKAST SODIUM 10 MG TABLET PO SCH (21:03)
[2024-04-17] MEDS: CYCLOBENZAPRINE HCL 5 MG TAB PO PRN (21:03)
[2024-04-17] MEDS: HYDROmorphone INJ 0.5 MG/0.5 ML SYR IV STA (21:21)
[2024-04-17] MEDS: traZODone HCL 50 MG TAB PO SCH (21:59)
--- NOTE | 2024-04-18 08:08 | Hospitalist Progress Note ---
<Statement entered by Fer Collins DO - 04/18/24 14:42> I have seen and examined the patient and have discussed the case with the provider above. I have reviewed the advanced practitioner's documentation, and I agree with, and take responsibility for that plan of care. 10 minutes spent at bedside. Reviewed medication plan to treat her pain. Plan of care as outlined below Date of Service April 18, 2024 Assessment & Plan (1) Acute pancreatitis: (2) Alcohol abuse: (3) Alcoholic cerebellar degeneration: Plan 54-year-old female with PMH of asthma, moderate COPD, hypertension, GERD, fibromyalgia, spinal stenosis,, microcytic anemia, MGUS, depression, ongoing alcoholism, tobacco use, history of lumbar fusion surgeries comes because of abdominal pain and found to have what is suspected to be alcohol induced pancreatitis. Acute Pancreatitis: Alcohol Use: acute Increased abdominal pain this AM 06/20; no fevers Leukocytosis: on admission 20.3--> 12.95 yesterday--> today 13.23. Ceftriaxone DC yesterday. trend labs leukocytosis; likely inflammatory On Admission CTAP: Acute pancreatitis without peripancreatic fluid collection GI saw patient on 04/17; no acute intervention. Goal to f/u as outpatient with GI No tremors noted on exam. Reports last drink two days ago; drank a few sips of beer prior to coming into the hospital Prior to that her last drink was 4 days prior when she had 6 beers. Cont PO Folic Acid and Thiamine AWSS scale with gabapentin and Ativan PRN Anemia: Acute Noted black stool x1 Check FOBT Hgb 9.3 holding steady x2 days; no overt signs of bleeding baseline Hgb 9.3-9.9 HTN: Chronic Takes Losartan; continue H/O back surgeries: Chronic Lumbar fusions; uses a walker/cane at home takes lyrica; continue GERD: Chronic Takes omeprazole;continue Disposition: PCP: Dr. Cavanaugh Code Status: Full Code VTE Prophylaxis: teds and scds for now I spent a total of 42 minutes coordinating, documenting, and providing care for this patient excluding time spent in the performance of separately billed services. All of the aforementioned completed while collaborating with the assigned attending physician for a full treatment plan. Please see their addendum for further details. Admission and Anticipated Discharge Date Admission Date: April 16, 2024 Subjective Pt sitting in her hospital bed with complaints of RUQ pain that she reports being 10/10. Her pain worsened with clear liquids this AM. She feels that her pain worsenes with taking a deep breath. She did report this is not uncommon since her back surgeries Pt denies WOLF, dizziness, chest pain, palpitations. Pt reports that she would really like to have PT set up prior to leaving the hospital. She had a referral from [facility] but then ended up coming to the hospital Review of Systems Review of Systems: Neuro: (-) Falls, trauma, slurred speech HEENT: (-) WOLF, dizziness, dysphagia, visual or auditory changes CV: (-) CP, palpitations, swelling Resp: (-) SOB GI: (-) appetite changes, N/V/D, bowel changes (+) abdominal pain : (-) urinary changes Skin: (-) rashes Psych: (-) anxiety, depression Physical Exam Physical Exam: Neuro: AAOx4, PERRLA, no aphagia, memory changes, CNII-XII grossly intact HEENT: head normocephalic, moist mucus membranes CV: S1/S2, (-) M/G/R, (-) edema, cap refill < 3 seconds Resp: Lungs CTA in all jacob. On RA GI: Abdomen S/ND, decreased bowel sounds x4, (-) CVA tenderness RUQ tenderness with palpation with radiation to back Musculoskeletal: 5/5 B/L UE strength, 5/5 B/L LE strength. No gait disturbance Skin: (-) rashes , (-) erythema. Psych: euthymic mood Results & Data Results & Data Vital Signs (Past 12 Hours) Vital Signs Temp Pulse Resp BP Pulse Ox O2 Del Method 04/18/24 07:19 36.8 C 83 16 126/74 93 Room Air 04/18/24 04:27 36.8 C 94 H 18 147/76 H 92 Room Air 04/18/24 00:18 36.4 C L 75 18 108/68 92 Room Air 04/17/24 20:32 36.8 C 75 12 123/72 95 Room Air Laboratory Results Short CBC 04/18/24 Range/Units 08:15 WBC 13.23 H (4.8-10.8) K/ul Hgb 9.3 L (12.0-16.0) g/dl Hct 27.6 L (37.0-47.0) % Plt Count 360 (130-400) K/uL BMP 04/18/24 08:15 Sodium 137 Potassium 3.8 Chloride 105 Carbon Dioxide 26 BUN 5 L Creatinine 0.74 Glucose 97 Calcium 8.5 L (1) Acute pancreatitis Acute pancreatitis complication: unspecified Pancreatitis type: alcohol induced Qualified Code(s): K85.20 - Alcohol induced acute pancreatitis without necrosis or infection
[2024-04-18] MEDS: MoRPHine SULFATE 2 MG/ML CARP IV PRN (08:16)
[2024-04-18 08:32] LABS: Hematocrit (blood only) 27.6 % (37.0-47.0); Hemoglobin 9.3 g/dl (12.0-16.0); Mean Corpuscular Hgb Conc 33.7 g/dL (32.0-36.0); Mean Platelet Volume 9.5 fL (9.4-12.4); Platelet Count 360 K/uL (130-400); RDW Standard Deviation 51.4 fL (36.4-46.3); White Blood Count 13.23 K/ul (4.8-10.8)
[2024-04-18 08:45] LABS: BUN Creatinine Ratio 6.8 (10-20); Calcium 8.5 mg/dl (8.6-10.3); Creatinine Clr Calc Pharmacy 71.1 ml/min; Est GFR (African American) 105.7 ml/min; Est GFR (Non-African American) 91.2 ml/min; Potassium 3.8 mmol/L (3.5-5.1)
[2024-04-18 11:27] LABS: Magnesium 1.7 mg/dl (1.7-2.4)
[2024-04-18 19:00] VITALS: TEMP 98.1
[2024-04-18] MEDS: FLUCONAZOLE 50 MG TAB PO ONE (22:24)
[2024-04-18] MEDS: GABAPENTIN 600 MG TAB PO SCH (22:24)
[2024-04-19 07:21] VITALS: RESP 16
[2024-04-19 07:53] LABS: Hematocrit (blood only) 24.4 % (37.0-47.0); Hemoglobin 8.2 g/dl (12.0-16.0); Mean Corpuscular Hemoglobin 30.4 pg (25.0-34.0); Mean Corpuscular Hgb Conc 33.6 g/dL (32.0-36.0); Mean Corpuscular Volume 90.4 fL (80.0-100.0); Mean Platelet Volume 9.7 fL (9.4-12.4); Platelet Count 296 K/uL (130-400); RDW Coefficient of Variation 16.1 % (11.5-14.5); RDW Standard Deviation 53.2 fL (36.4-46.3); White Blood Count 10.89 K/ul (4.8-10.8)
[2024-04-19 08:15] LABS: BUN Creatinine Ratio 6.1 (10-20); Calcium 8.5 mg/dl (8.6-10.3); Creatinine Clr Calc Pharmacy 64.1 ml/min; Est GFR (African American) 93.4 ml/min; Est GFR (Non-African American) 80.6 ml/min; Potassium 4.5 mmol/L (3.5-5.1)
--- NOTE | 2024-04-19 13:32 | Discharge Summary ---
<Statement entered by Fer Collins, DO - 04/19/24 15:34> I have seen and examined the patient and have discussed the case with the provider above. I have reviewed the advanced practitioner's documentation, and I agree with, and take responsibility for that plan of care. 10 minutes spent at bedside. Patient states she is definitely improved from admission. Tolerating advance diet. Discharge plans as outlined below Date of Service April 19, 2024 Admission HPI Per Admitting Provider 54-year-old female with past medical history significant for asthma, moderate COPD, hypertension, GERD, fibromyalgia, spinal stenosis,, microcytic anemia, MGUS, depression, ongoing alcoholism, tobacco use, history of lumbar fusion surgeries comes because of abdominal pain and found to have acute pancreatitis. Patient states since about a week she has an upper abdominal pain is progressive getting worse and radiating to the back. When she came in pain was 8/10 in severity. Associated with nausea. No diarrhea or constipation. Yesterday she had 1 episode of black stools. Micturating okay. No hematuria . No fevers. Also complains of pain in the lower middle chest. No shortness of breath. No cough. No headache. No runny nose or sore throat. Just completing a course of steroids for bronchitis and also on doxycycline. Drinking one six pack of beers daily. She is currently smoking 3 cigarettes daily. Past medical history. As mentioned above Past surgical history. Allograft for spine surgery. Colonoscopy and EGD. EGD with endoscopic ultrasound. Left wrist surgery. Lumbar spine fusion surgery. Tonsillectomy. Sacroiliac joint injection. Social history. Currently smoking 2 to 3 cigarettes daily. Drinking 6 pack of beer daily. Smokes marijuana as per [employer]. Family history. Father has asthma. Mother had back surgery. Brother had back surgery. Maternal grandmother had cancer. Uncle had lung cancer. Admission Exam Per Admitting Provider General- Not in distress Head- atraumatic Eyes- PERRL. ENT- oropharynx clear Neck- supple, no JVD,. Lungs- clear to auscultation no wheezing or crackles Heart- regular rhythm; no murmur, no gallop. Abdomen- normal bowel sounds, soft, diffuse tender nd guarding. no distension Extremities- no pretibial edema, no erythema seen Neuro- alert, oriented PERRL, no facial palsy; no dysarthria; moves extremities Principal Diagnosis acute pancreatitis Discharge Exam Neuro: AAOx4, PERRLA, no aphagia, memory changes, CNII-XII grossly intact HEENT: head normocephalic, moist mucus membranes CV: S1/S2, (-) M/G/R, (-) edema, cap refill < 3 seconds Resp: Lungs CTA in all jacob. On RA GI: Abdomen S/NT/ND, Ax4 bowel sounds, (-) CVA tenderness Musculoskeletal: 5/5 B/L UE strength, 5/5 B/L LE strength. No gait disturbance Skin: (-) rashes , (-) erythema. Psych: euthymic mood Discharge Data Allergies Allergy/AdvReac Type Severity Reaction Status Date / Time latex Allergy Intermediate ITCHY Verified 04/16/24 20:05 nickel Allergy Intermediate Rash Verified 04/16/24 20:05 amoxicillin AdvReac Intermediate thrush Verified 04/16/24 20:05 Consultations 04/16/24 20:23 ED Decision to Admit Stat 04/17/24 08:00 Consult Gastroenterology Routine Ordered Studies 04/16/24 18:45 CT Abd and Pelvis [CT abd pelvis IV con only] Stat Hospital Course (1) Acute pancreatitis: (2) Alcohol abuse: (3) Tobacco use: Plan Ms. Adhikari is a 54-year-old female with past medical history significant for asthma, moderate COPD, hypertension, GERD, fibromyalgia, spinal stenosis,, microcytic anemia, MGUS, depression, ongoing alcoholism, tobacco use, history of lumbar fusion surgeries comes because of abdominal pain and found to have acute pancreatitis. Patient states since about a week she has an upper abdominal pain is progressive getting worse and radiating to the back. When she came in pain was 8/10 in severity. Associated with nausea. No diarrhea or constipation. Yesterday she had 1 episode of black stools. Micturating okay. No hematuria . No fevers. Also complains of pain in the lower middle chest. No shortness of breath. No cough. No headache. No runny nose or sore throat. Just completing a course of steroids for bronchitis and also on doxycycline. Drinking one six pack of beers daily. She is currently smoking 3 cigarettes daily. She was seen by GI who stated to manage conservatively for suspected alcohol induced pancreatitis. A 2.5 cm cystic pancreatic head with mild pancreatic duct dilatation was noted. INititally, she was kept NPO with fluids and antiemetics. Given her alcohol intake she was given a banana bag with thiamine and folic acid and was followed with the alcohol withdrawal protocol with gabapentin and ativan PRN. Her pain and ability to tolerate advancing her diet without experiencing symptoms; therefore discharge was discussed with the patient. The plan is for her to return home today with follow up planned on Monday 04/23. Total Time Total Time Spent Total Time Spent (In Minutes): I spent a total of 56 minutes coordinating, documenting, and providing care for this patient excluding time spent in the performance of separately billed services. All of the aforementioned completed while collaborating with the assigned attending physician for a full treatment plan. Please see their addendum for further details. Discharge Plan Discharge Items Patient Disposition: Home - Self-Care Reason For Visit: ACUTE PANCREATITIS, ALCOHOLISM Discharge Diagnosis: acute pancreatitis Condition on Discharge: Good Activity: Resume your previous activity Non-emergency contact: Primary Care Provider Call non-emergency contact if: you have any medication questions, your symptoms worsen, your pain is not controlled, your pain is worsening, your pain is unusual for you, you have a fever and your temperature is above 101 Follow-up/Referrals: Myesha Cavanaugh MD [Primary Care Provider] - 04/23/24 9:40 am (Appointment will be with Dr. Rene at the [place] office ) Diet: Low Fat Diet Texture: Easy to Chew Patricia Attending Provider Instructions: Ms. Karen Hall presented to the [facility] with complaints of upper abdominal pain with pain radiating to your back that has been occurring for a week. You also had complaints of nausea. An abdomen and pelvis CT revealed acute pancreatitis without peripancreatic fluid collection. You were not having fevers. You were given IV Fluids and were provided pain medications for treatment of acute pancreatitis. Initially, we kept you without having any food by mouth until our GI specialists evaluated you who stated that they recommended alcohol cessation and conservative management. GI stated that it is recommended that you follow up with [facility] for a possible repeat endoscopic ultrasound. MEDICATION CHANGES: You will continue taking your prescribed home medications. You were started on Thiamine which you can continue taking when you are at home with your folic acid. You can resume taking your pregabalin upon discharge. Your new prescription for Oxycodone was printed from the system due to error; you will need to take this prescription to have it filled at [facility]. SUMMARY OF TEST RESULTS: You had an abdomen and pelvis CT performed on 04/16/24 that revealed acute pancreatitis without peripancreatic fluid collection Your infectious count has returned to normal range. Your hemoglobin has dropped to 8.2; however, you received a few liters of IV fluids and this drop would be expected. RECOMMENDATIONS FOR FOLLOW-UP: Please attend your follow up appointment with Dr. Rene in Dr. Cavanaugh's office on: Monday 04/23 @ 9:40AM at the [place] location Please call [employer] [facility] to arrange an outpatient endoscopic ultrasound at [phone] OTHER INSTRUCTIONS: Please continue with a low fat diet as this will assist with controlling your symptoms more We recommend cessation of alcohol use as drinking alcohol can make your condition worse Browse [employer] Inter[employer] of Alcoholics Anonymous (aa- intergroup.org) https://aa-intergroup.org/resources/ Seek medical attention if you have: * temperature above 101 * chest pain or trouble breathing * abdominal pain, nausea, vomiting * diarrhea, dark stools or bloody stools * any unanswered questions or concerns Call 911 if symptoms are severe. Please take good care of yourself. It has been a pleasure taking care of you. Please take care of yourself. If you have any questions regarding your recent hospitalization please contact [facility] and request franc Mcelroyist @ [phone]. Brittnee KRUEGER Pending Studies at Discharge: No Stand-Alone Forms: My [facility], Smoking Cessation Medications and DC Order Prescriptions: New thiamine HCl (vitamin B1) 100 mg Tablet 100 mg PO QAM Qty: 30 0RF oxycodone 5 mg tablet 5 mg PO Q6H PRN (Reason: pain) Qty: 12 0RF Continued trazodone 50 mg tablet 50 mg PO HS loratadine 10 mg tablet 10 mg PO QDL lorazepam 0.5 mg tablet 0.5 mg PO BID PRN (Reason: Anxiety) albuterol sulfate 90 mcg/actuation HFA aerosol inhaler 2 puff INHALATION Q4 PRN (Reason: Shortness Of Breath Or Wheezing) pregabalin 150 mg capsule 150 mg PO [facility] Dulera 200-5 mcg/actuation HFA aerosol inhaler 2 puff INHALATION BID omeprazole 20 mg capsule,delayed release(DR/EC) 20 mg PO DAILY duloxetine 60 mg capsule,delayed release(DR/EC) 60 mg PO QAM losartan 50 mg tablet 50 mg PO DAILY Qty: 30 1RF folic acid 1 mg tablet 2 mg PO DAILY Qty: 60 0RF fluoxetine 40 mg capsule 40 mg PO QAM Rx Instructions: TOTAL DOSE 60 MG--TAKES WITH 20 MG CAP. doxycycline hyclate 100 mg capsule 100 mg PO BID Rx Instructions: STARTED 04/10/24 FOR 10 DAYS hydroxyzine HCl 50 mg tablet 50 mg PO Q6H PRN (Reason: ITCHING/ANXIETY) montelukast 10 mg tablet 10 mg PO HS fluoxetine 20 mg capsule 20 mg PO QAM Rx Instructions: TOTAL DOSE 60 MG--TAKES WITH 40 MG CAP. cyclobenzaprine 5 mg tablet 5 mg PO TID PRN (Reason: MUSCLE SPASMS) amlodipine [Norvasc] 5 mg tablet 5 mg PO QAM Discontinued oxycodone-acetaminophen 10-325 mg tablet 1 tab PO Q6H PRN (Reason: Pain) hydrocodone-acetaminophen 7.5-325 mg tablet 1 tab PO Q12H PRN (Reason: Pain) Discharge Orders: Discharge Order (Routine); Ordered 04/19/24 Ordered By: Judith Mitchell Admission Data Admit Date/Time: 04/16/24 22:55 Attending Provider: Fer Collins Admit Provider: Ronnie Burton Primary Care Provider: Myesha Cavanaugh Other Providers: Ronnie Burton; Jaime Melgar
[2024-04-19 14:36] VITALS: BP 98/62
[2024-04-19 14:39] VITALS: PULSE 64; O2SAT 93
[2024-04-20] MEDS ORDERED: GABAPENTIN 600 MG TAB PO SCH (11:00)
== END 2024-04-19 17:36 | disposition home or self-care (01) | DRG 439 ==
LOC: ED 18:04 → 2S 22:55 → 3W 04-17 17:17

== ENCOUNTER 2024-11-06 15:21 | Inpatient (IN) ==
[2024-11-06] MEDS: ONDANSETRON INJ 2 MG/ML 2 ML VIAL ONE (16:02)
[2024-11-06] MEDS: ONDANSETRON INJ 2 MG/ML 2 ML VIAL IV STA (16:04)
[2024-11-06 16:12] LABS: Basophils # (auto) 0.05 K/uL (0.00-0.20); Basophils % (auto) 0.4 %; Eosinophils # (auto) 0.15 K/uL (0.00-0.50); Eosinophils % (auto) 1.3 %; Hematocrit (blood only) 33.9 % (37.0-47.0); Hemoglobin 12.5 g/dl (12.0-16.0); Immature Granulocytes % (auto) 0.9 %; Lymphocytes # (auto) 1.74 K/uL (1.20-3.40); Mean Corpuscular Hemoglobin 31.4 pg (25.0-34.0); Mean Corpuscular Hgb Conc 36.9 g/dL (32.0-36.0); Mean Corpuscular Volume 85.2 fL (80.0-100.0); Mean Platelet Volume 10.6 fL (9.4-12.4); Monocytes # (auto) 0.74 K/uL (0.11-0.59); Monocytes % (auto) 6.4 %; Neutrophils # (auto) 8.85 K/uL (1.40-6.50); Platelet Count 364 K/uL (130-400); RDW Coefficient of Variation 13.9 % (11.5-14.5); RDW Standard Deviation 43.1 fL (36.4-46.3); Red Blood Count 3.98 M/uL (4.20-5.40); White Blood Count 11.63 K/ul (4.8-10.8)
[2024-11-06 16:17] LABS: Appearance Urine Cloudy (Clear); Bacteria Urine Automated 3+ (None Seen); Bilirubin Urine Negative (Negative); Blood Urine Negative (Negative); Color Urine Dark Yellow; Glucose Urine UA Negative (Negative); Ketones Urine 1+ (Negative); Leukocyte Esterase Urine 2+ (Negative); Nitrite Urine Negative (Negative); Protein Urine 1+ (Negative); RBC Urine Automated 0-2 /hpf (0-2); Urobilinogen Urine Negative (Negative); WBC Urine Automated 21-50 /hpf (0-5); pH Urine 5.5 (4.5-7.5)
[2024-11-06 16:30] LABS: Alanine Aminotransferase 17 U/L (7-52); Albumin Globulin Ratio 0.9 (0.9-2); Albumin Level 4.2 gm/dl (3.4-5.0); Alkaline Phosphatase 166 U/L (34-104); BUN Creatinine Ratio 22.1 (10-20); Bilirubin,Total 0.5 mg/dl (0.2-1.0); Blood Urea Nitrogen 17 mg/dl (6-23); Calcium 9.6 mg/dl (8.6-10.3); Carbon Dioxide 24 mmol/L (21-32); Chloride 96 mmol/L (98-107); Creatinine Clr Calc Pharmacy 71.3 ml/min; Globulin 4.7 gm/dl (2.5-4.0); Glucose 96 mg/dl (70-99(Fasting)); Lipase 321 U/L (11-82); Total Protein 8.9 gm/dl (6.0-8.3)
--- NOTE | 2024-11-06 17:28 | Emergency Department Note ---
Impression & Plan Pancreatitis ED Provider Note Diagnosis: Pancreatitis Disposition: Admission CHIEF COMPLAINT: Abdominal pain HPI: Patient presenting with midepigastric abdominal pain. Patient states symptoms have been worsening over the past 1 weeks time. Patient has not noticed any fevers. Patient states however she has felt hot and cold at times. Patient states nausea of vomiting and loose bowel movements. Patient states she had a procedure stent removed due to having previous pancreatitis and pseudocyst present. PAST MEDICAL HISTORY: See Below PAST SURGICAL HISTORY: See Below SOCIAL HISTORY: See Below HOME MEDICATIONS: See Below ALLERGIES: See Below VITALS: See Below PHYSICAL EXAMINATION: GENERAL: Well appearing, well nourished, NAD, non-toxic. EYE EXAM: Normal conjunctiva. OROPHARYNX: Moist mucus membranes. Grossly normal dentition. NECK: Supple, LUNGS: Clear to auscultation. Normal chest wall mechanics. HEART: NSR ABDOMEN: Abdomen soft, midepigastric tenderness BACK: No CVA TTP. SKIN: No rashes and no bruising. UPPER EXTREMITIES: Upper extremities are grossly normal LOWER EXTREMITIES: Grossly normal, no edema. NEURO EXAM: A&O x3,, normal speech, moves all 4 extremities PSYCH: Cooperative MEDICAL DECISION MAKING: Reviewed external documents: Reviewed procedure note from [facility] outpatient 2 weeks prior History obtained from: Patient, significant other ER Course: Patient is a 54-year-old female presenting with midepigastric pain nausea vomiting. Patient states that she had a stent removed by GI 2 weeks prior. Patient was doing well for 1 week's time. Patient states over the past 1 week she has developed midepigastric pain nausea vomiting. Patient report was pulled and she had a cystgastrostomy stent removed 2 wks prior. Patient today on blood work shows elevated lipase but no elevation of LFTs. Patient has on CT scan signs of acute pancreatitis with inflammation. Patient has mild increase of common bile duct from 7 mm to 10 mm. Patient's case discussed with gastroenterology team as well as hospitalist service. Patient provided with symptomatic treatment of IV fluids and pain control. Patient admitted under hospital service further treatment and evaluation. Labs (independently interpreted) are significant for: No LFT bump, T. bili normal, elevated lipase Medications given: Normal saline, morphine Consultants: GI on-call Dr. Pathak, states that most likely normal pancreatitis treatment course. States that he cannot speak for what Dr. Rachel will be on- call for [facility] would want to do tomorrow. Recommends discussing with hospital service if they are comfortable with keeping the patient. Discussion with hospitalist service who agrees to keep patient for further treatment and evaluation. Chronic conditions affecting care: Pancreatitis Triage Nursing notes reviewed and agree them. Vital Signs: reviewed and remarkable for: no significant abnormalities Past Med/Surg History Problem List (Updated 11/07/24 @ 09:20 by Taz Barnett DO) Pancreatitis (Acute) COPD (chronic obstructive pulmonary disease) Essential hypertension Major depression, chronic Alcoholic peripheral neuropathy Spinal stenosis of lumbar region with neurogenic claudication Urinary tract infection Acute pancreatitis (Acute) Hallucinations Alcoholic encephalopathy Visual disturbance Chronic hyponatremia HTN (hypertension) Chronic anemia Alcohol abuse Tobacco use GERD (gastroesophageal reflux disease) Moderate persistent asthma Depression Ataxia (Acute) Stroke-like symptom (Acute) Vancomycin-induced nephrotoxicity Right otitis media (Acute) PNA (pneumonia) (Acute) Acute bronchiolitis (Acute) Acute asthma exacerbation (Acute) Acute asthma exacerbation (Acute) Fibromyalgia (Chronic) Asthma (Chronic) Medical History (Updated 11/07/24 @ 09:20 by Taz Barnett DO) History of renal dialysis due to overdose of vancomycin. 2019 Vancomycin-induced nephrotoxicity caused renal failure 2019 and required dialysis 3 times a week for one to two months Chronic back pain Depression GERD (gastroesophageal reflux disease) History of alcohol abuse Chronic anemia pt not aware Alcoholic encephalopathy hx Medical marijuana use HTN (hypertension) pt denies Fatty liver History of COVID-19 (2021) no hosp; resolved Hx: recurrent pneumonia states yearly issues w/ pneumonia or bronchitis last time ? 2022 Asthma controlled w/ daily inhaler use Fibromyalgia Cyst of pancreas Hx of acute pancreatitis Alcoholic cerebellar degeneration Surgical History Hx of tooth extraction History of esophagogastroduodenoscopy (EGD) Hx of tonsillectomy History of spinal surgery unsure what level Family History Other Asthma Cancer Social History Smoking Status: Current every day smoker Tobacco Type: Cigarettes Cigarettes Per Day: couple a day; Second Hand Exposure: No; Do You Dip or Chew Tobacco: No; Hx Alcohol Use: Yes Alcohol type: beer and hard liquor Alcohol Intake Frequency Comment: 5-6 daily Hx Substance Use: Yes Last Used Substance Other:: medical card Preferred Language: Korean Communication Ability: Effective Separator Operator Required: No Beliefs That Will Affect Care: None Current Living Situation: Significant Other Feels Safe at Home: Yes Safety Concerns: Feels Safe At This Time Assistive Devices: Denture - Upper, Denture - Lower and Walker Allergies Allergies Allergy/AdvReac Type Severity Reaction Status Date / Time latex Allergy Intermediate ITCHY Verified 11/06/24 21:39 nickel Allergy Intermediate Rash Verified 11/06/24 21:39 tea tree Allergy Unknown Hives Verified 06/25/24 12:37 amoxicillin AdvReac Intermediate thrush Verified 11/06/24 21:39 lisinopril AdvReac Cough Verified 11/06/24 21:38 Home Meds Home Medications Medication Instructions Recorded Confirmed albuterol sulfate 90 mcg/actuation 2 puff inhalation Q4 PRN Breath Or 09/25/19 11/06/24 aerosol inhaler Wheezing loratadine 10 mg tablet 10 mg PO QDL 09/25/19 11/06/24 trazodone 50 mg tablet 50 mg PO HS 09/25/19 11/06/24 duloxetine 60 mg capsule,delayed 60 mg PO QAM 03/08/23 11/06/24 release mometasone-formoterol HFA 200 2 puff inhalation BID 03/08/23 11/06/24 mcg-5 mcg/actuation aerosol inhaler (Dulera) omeprazole 20 mg capsule,delayed 20 mg PO BID 03/08/23 11/06/24 release pregabalin 150 mg capsule 150 mg PO AMHS 03/08/23 11/06/24 fluoxetine 20 mg capsule 20 mg PO QAM 04/16/24 11/06/24 fluoxetine 40 mg capsule 40 mg PO QAM 04/16/24 11/06/24 hydroxyzine HCl 50 mg tablet 50 mg PO Q6H PRN ITCHING/ANXIETY 04/16/24 11/06/24 montelukast 10 mg tablet 10 mg PO HS 04/16/24 11/06/24 losartan 50 mg tablet 50 mg PO QAM 06/24/24 11/06/24 fluticasone fur. 100 mcg-umeclid 1 ea inhalation QA 11/06/24 11/06/24 62.5 mcg-vilant 25 mcg inhalat.powder (Trelegy Ellipta) hydrocodone 7.5 mg-acetaminophen 1 tab PO Q8 PRN pain,severe 11/06/24 11/06/24 325 mg tablet Results & Data (ED) Vital Signs Vital Signs - 24 hr 11/06/24 15:45 11/06/24 18:25 11/06/24 19:00 Temperature 36.4 C L Temperature Source Temporal Artery Scan Pulse Rate 106 H 97 H 100 H Pulse Rate from SpO2 Sensor 101 H Respiratory Rate 16 16 Respiratory Effort / Characteristics Non-Labored Spontaneous Respiratory Depth Normal Blood Pressure 186/112 H 171/111 H Blood Pressure Mean 136 131 Blood Pressure Position Sitting Pulse Oximetry 99 99 Oxygen Delivery Method Room Air Sepsis Recent Fever Within 48 Hours No Sepsis New/Unexplained Change in Mental Status N/A Sepsis Action Taken by Nursing No Action Required 11/06/24 19:30 11/06/24 21:00 Temperature Temperature Source Pulse Rate 99 H 100 H Pulse Rate from SpO2 Sensor Respiratory Rate 18 22 Respiratory Effort / Characteristics Respiratory Depth Blood Pressure 182/114 H 190/133 H Blood Pressure Mean 161 160 Blood Pressure Position Pulse Oximetry 98 100 Oxygen Delivery Method Sepsis Recent Fever Within 48 Hours Sepsis New/Unexplained Change in Mental Status Sepsis Action Taken by Nursing Laboratory Data 11/07/24 07:23 11/07/24 05:44 Lab Results 11/06/24 11/06/24 11/06/24 Range/Units 15:55 16:03 17:10 WBC 11.63 H (4.8-10.8) K/ul RBC 3.98 L (4.20-5.40) M/uL Hgb 12.5 (12.0-16.0) g/dl Hct 33.9 L (37.0-47.0) % MCV 85.2 (80.0-100.0) fL MCH 31.4 (25.0-34.0) pg MCHC 36.9 H (32.0-36.0) g/dL RDW Std Deviation 43.1 (36.4-46.3) fL RDW Coeff of Amos 13.9 (11.5-14.5) % Plt Count 364 (130-400) K/uL MPV 10.6 (9.4-12.4) fL Immature Gran % (Auto) 0.9 % Neut % (Auto) 76.0 % Lymph % (Auto) 15.0 % [place] % (Auto) 6.4 % Eos % (Auto) 1.3 % Baso % (Auto) 0.4 % Neut # (Auto) 8.85 H (1.40-6.50) K/uL Lymph # (Auto) 1.74 (1.20-3.40) K/uL [place] # (Auto) 0.74 H (0.11-0.59) K/uL Eos # (Auto) 0.15 (0.00-0.50) K/uL Baso # (Auto) 0.05 (0.00-0.20) K/uL Immature Gran # (Auto) 0.10 (0.01-0.20) K/uL Sodium TNP 127 L Potassium TNP 4.1 Chloride 96 L (98-107) mmol/L Carbon Dioxide 24 (21-32) mmol/L Anion Gap TNP BUN 17 (6-23) mg/dl Creatinine 0.77 (0.6-1.2) mg/dl Est Cr Clr Drug Dosing 71.3 ml/min eGFR 91.04 BUN/Creatinine Ratio 22.1 H (10-20) Glucose 96 (70-99(Fasting)) mg/dl Calcium 9.6 (8.6-10.3) mg/dl Total Bilirubin 0.5 (0.2-1.0) mg/dl AST TNP 17 ALT 17 (7-52) U/L Alkaline Phosphatase 166 H (34-104) U/L Total Protein 8.9 H (6.0-8.3) gm/dl Albumin 4.2 (3.4-5.0) gm/dl Globulin 4.7 H (2.5-4.0) gm/dl Albumin/Globulin Ratio 0.9 (0.9-2) Lipase 321 H (11-82) U/L Urine Color Dark Yellow Urine Appearance Cloudy A (Clear) Urine pH 5.5 (4.5-7.5) Ur Specific [place] 1.030 (1.000-1.030) Urine Protein 1+ H (Negative) Urine Glucose (UA) Negative (Negative) Urine Ketones 1+ H (Negative) Urine Blood Negative (Negative) Urine Nitrite Negative (Negative) Urine Bilirubin Negative (Negative) Urine Urobilinogen Negative (Negative) Ur Leukocyte Esterase 2+ H (Negative) Urine WBC (Auto) 21-50 H (0-5) /hpf Urine RBC (Auto) 0-2 (0-2) /hpf U Hyaline Cast (Auto) 3-5 H (0-2) /lpf U Epithel Cells (Auto) 11-20 H (0-2) /hpf Urine Bacteria (Auto) 3+ H (None Seen) Administered Medications Amlodipine Besylate (Amlodipine Besylate 5 Mg Tab) 5 mg PO QAM [facility] Stop: 12/07/24 08:59 Last Admin: 11/07/24 07:40 Dose: 5 mg Documented By: DLR Duloxetine HCl (Duloxetine Hcl 60 Mg Cap) [facility] Stop: 12/07/24 08:59 Last Admin: 11/07/24 07:42 Dose: 60 mg Documented By: DLR Fluticasone/Vilanterol (Fluticasone/Vilanterol 200/25mcg 14 Puffs/Inhaler) 1 puffs INH DAILY [facility] Stop: 12/07/24 08:59 Last Admin: 11/07/24 07:43 Dose: Not Given Documented By: DLR Folic Acid (Folic Acid 1 Mg Tab) 1 mg PO QAM [facility] Stop: 12/07/24 08:59 Last Admin: 11/07/24 07:42 Dose: 1 mg Documented By: DLR Gabapentin (Gabapentin 600 Mg Tab) 600 mg PO Q6H [facility] Stop: 11/07/24 13:01 Last Admin: 11/07/24 06:28 Dose: 600 mg Documented By: Hydromorphone HCl (Hydromorphone Inj 0.5 Mg/0.5 Ml Syr) 0.5 mg IV Q3H PRN PRN Reason: Severe Pain (Scale 7, 8, 9,10) Stop: 11/21/24 01:02 Last Admin: 11/07/24 08:11 Dose: 0.5 mg Documented By: DLR Ceftriaxone Sodium (Rocephin) 1,000 mg in 50 mls @ 100 mls/hr IV Q24H [facility]; Protocol Stop: 11/13/24 22:59 Last Infusion: 11/07/24 01:00 Dose: Infused Documented By: Admin: 11/07/24 00:28 Dose: 100 mls/hr Documented By: GULSHAN Sodium Chloride (Nss) 1,000 mls @ 100 mls/hr IV .Q10H [facility] Stop: 11/08/24 06:14 Last Admin: 11/07/24 06:20 Dose: 100 mls/hr Documented By: Losartan Potassium (Losartan Potassium 50 Mg Tab) 100 mg PO QAM [facility] Stop: 12/07/24 08:59 Last Admin: 11/07/24 07:43 Dose: 100 mg Documented By: KACI Miscellaneous (Check Buprenorphine Patch) 1 each N/A QS [facility] Stop: 12/07/24 00:00 Last Admin: 11/07/24 07:41 Dose: Not Given Documented By: Admin: 11/07/24 00:00 Dose: Not Given Documented By: GULSHAN Multivitamins (Multivitamin Tab) 1 tab PO [facility] Stop: 12/07/24 08:59 Last Admin: 11/07/24 07:44 Dose: 1 tab Documented By: KACI Pantoprazole Sodium (Pantoprazole 40 Mg Tab) 40 mg PO [facility] Stop: 12/07/24 08:59 Last Admin: 11/07/24 07:44 Dose: 40 mg Documented By: KACI Pregabalin (Pregabalin 150 Mg Cap) 150 mg PO BID [facility] Stop: 12/07/24 08:59 Last Admin: 11/07/24 08:10 Dose: 150 mg Documented By: KACI Thiamine HCl (Thiamine Hcl 100 Mg Tab) [facility] Stop: 12/07/24 08:59 Last Admin: 11/07/24 07:44 Dose: 100 mg Documented By: KACI Trazodone HCl (Trazodone Hcl 50 Mg Tab) 50 mg PO HS [facility] Stop: 12/06/24 23:05 Last Admin: 11/07/24 00:16 Dose: 50 mg Documented By: GULSHAN Discontinued Medications Clonidine HCl (Clonidine Hcl 0.1 Mg Tab) 0.1 mg PO Q6H PRN PRN Reason: Hypertension Stop: 12/07/24 01:02 Last Admin: 11/07/24 01:43 Dose: 0.1 mg Documented By: Gabapentin (Gabapentin 600 Mg Tab) 1,200 mg PO NOW ONE Stop: 11/07/24 01:04 Last Admin: 11/07/24 01:19 Dose: 1,200 mg Documented By: Sodium Chloride (Nss) 1,000 mls @ 999 mls/hr IV .Q1H1M ONE Stop: 11/06/24 18:24 Last Infusion: 11/06/24 19:48 Dose: Infused Documented By: Admin: 11/06/24 18:13 Dose: 999 mls/hr Documented By: MANUEL Sodium Chloride (Nss) 1,000 mls @ 100 mls/hr IV .Q10H [facility] Stop: 11/07/24 23:05 Last Infusion: 11/07/24 01:20 Dose: Infused Documented By: Admin: 11/06/24 23:28 Dose: 100 mls/hr Documented By: GULSHAN Sodium Chloride (Nss) 1,000 mls @ 200 mls/hr IV .Q5H [facility] Stop: 11/08/24 01:02 Last Infusion: 11/07/24 06:20 Dose: Infused Documented By: Admin: 11/07/24 06:02 Dose: 200 mls/hr Documented By: Infusion: 11/07/24 06:02 Dose: Infused Documented By: Admin: 11/07/24 01:20 Dose: 200 mls/hr Documented By: Ioversol (Optiray 320 100ml) 93 ml IV ONCE ONE Stop: 11/06/24 18:05 Last Admin: 11/06/24 18:04 Dose: 93 ml Documented By: BRANDON Lorazepam (Lorazepam 2 Mg/1 Ml Vial) 1 mg IV ONE PRN; Protocol PRN Reason: EtoH Withdrawal AWSS 6-10 Last Admin: 11/07/24 00:12 Dose: 1 mg Documented By: GULSHAN Lorazepam (Lorazepam 2 Mg/1 Ml Vial) 1 mg IV NOW STA Stop: 11/07/24 01:05 Last Admin: 11/07/24 01:17 Dose: 1 mg Documented By: Morphine Sulfate (Morphine Sulfate 4 Mg/Ml 1 Ml Carp\Vial) 4 mg IV NOW STA Stop: 11/06/24 17:25 Last Admin: 11/06/24 18:13 Dose: 4 mg Documented By: MANUEL Morphine Sulfate (Morphine Sulfate 4 Mg/Ml 1 Ml Carp\Vial) 4 mg IV NOW STA Stop: 11/06/24 19:48 Last Admin: 11/06/24 19:58 Dose: 4 mg Documented By: NAW Morphine Sulfate (Morphine Sulfate 10 Mg/Ml Carp/Vial) 6 mg IV NOW STA Stop: 11/06/24 21:02 Last Admin: 11/06/24 21:29 Dose: 6 mg Documented By: LEIGH ANN Ondansetron HCl (Ondansetron Inj 2 Mg/Ml 2 Ml Vial) 4 mg IV NOW STA Stop: 11/06/24 16:01 Last Admin: 11/06/24 16:04 Dose: 4 mg Documented By: MYKEL Ondansetron HCl (Ondansetron Inj 2 Mg/Ml 2 Ml Vial) Confirm Administered Dose 4 mg .ROUTE .STK-MED ONE Stop: 11/06/24 16:02 Last Admin: 11/06/24 16:02 Dose: Not Given Documented By: MYKEL Discharge Plan Visit Data Chief Complaint: Abdominal Pain Stated Complaint: STINT REMOVED, ABD PAIN ED Provider: Taz Barnett Discharge Problem: Pancreatitis Patient Disposition: Admitted As Inpatient Discharge Instructions Interventions: ED Discharge Assessment Last Done: 11/06/24 22:34
[2024-11-06 17:39] LABS: Potassium 4.1 mmol/L (3.5-5.1)
[2024-11-06] MEDS: OPTIRAY 320 100ml IV ONE (18:04)
[2024-11-06] MEDS: MoRPHine SULFATE 4 MG/ML 1 ML CARP\\VIAL IV STA ×2 (18:13→19:58)
[2024-11-06] MEDS: SODIUM CHLORIDE 0.9% 1,000 ML IV ONE (18:13)
--- NOTE | 2024-11-06 19:19 | CT Scan Report ---
EXAM: CT abd pelvis IV con only CLINICAL HISTORY: Pancreatic stent removal 2 weeks prior, LUQ pain for 5 days, vomiting TECHNIQUE: CT of the abdomen and pelvis was performed with and without contrast, with the following protocol: axial images with, and reconstructed coronal and sagittal images. One of the following dose reduction techniques was utilized for this exam: Automated exposure control, adjustment of the mA and/or kV according to patient size, and use of iterative reconstruction. COMPARISON: Comparison is made with previous CT abdomen with contrast on 04/16/2024 FINDINGS: Abdomen: Liver: Normal in size, shape, and density. No focal lesions, cysts, or masses were identified. Hepatic vasculature and biliary ducts are unremarkable. Gallbladder and Biliary System: The gallbladder is normal in size and shape. No wall thickening, pericholecystic fluid, or gallstones were identified. The common bile duct is mildly dilated (10 mm) with mild intrahepatic biliary dilatation. Pancreas: Pancreatic head, body, and tail are visualized and appear normal in size. No pancreatic masses or calcifications were noted. The pancreatic duct is mildly dilated (7 mm), status post pancreatic stent removal. Mild peripancreatic fat stranding with mild diffuse interstitial edema of the pancreas, suggestive of mild acute pancreatitis. Spleen: Normal in size, shape, and density. No splenic lesions or masses were identified. Appendix: Not well visualized but no gross abnormalities noted. Kidneys and Adrenal Glands: Both kidneys are normal in size, shape, and position. Cortical thickness is within normal limits. No renal calculi or hydronephrosis. Adrenal glands are unremarkable with no evidence of masses or hyperplasia. Pelvis: Urinary Bladder: Normal in contour and wall thickness. No intraluminal lesions identified. Uterus: Normal in size and contour. No masses or abnormal thickening. Ovaries: Not well visualized but no gross abnormalities noted. Vagina: Normal in contour and wall thickness. Cervix: No evidence of mass or abnormal thickening. Peritoneal and Retroperitoneal Structures: No free fluid or abnormal fluid collections were identified within the abdomen or pelvis. No lymphadenopathy was noted. Bowel: The visualized bowel loops are normal in caliber and appearance. No evidence of bowel obstruction or wall thickening. Bones and Soft Tissues: Pelvic bones and soft tissues are unremarkable. No fractures or abnormal masses were identified. Diffuse osteoporotic changes. Internal fixation of L3 through L5 with rods and pedicular screws. Intervertebral disc cages are seen on L3-L4 and L4-L5 levels. IMPRESSION: 1. Mild peripancreatic fat stranding with mild diffuse interstitial edema of the pancreas, suggestive of mild acute pancreatitis. Clinical and laboratory correlation are recommended. 2. The common bile duct is mildly dilated (10 mm) with mild intrahepatic biliary dilatation. (Mild progressed, was 7 mm in prior study). 3. The pancreatic duct is mildly dilated (7 mm), may be post pancreatic stent removal. (stable) 4. Resolved pancreatic head cystic lesion seen in the previous study. Electronically signed by Sagar Phillips 11-06-2024 7:18 PM
--- NOTE | 2024-11-06 21:19 | History & Physical Report ---
Date of Service November 06, 2024 Assessment & Plan (1) Acute pancreatitis: (2) Urinary tract infection: (3) Chronic hyponatremia: (4) Alcohol abuse: (5) Spinal stenosis of lumbar region with neurogenic claudication: (6) Alcoholic peripheral neuropathy: (7) Major depression, chronic: (8) Essential hypertension: (9) COPD (chronic obstructive pulmonary disease): Plan Patient 54-year-old female with known history of recurrent alcohol induced pancreatitis who recently had Axios stent removed that had been placed for pancreatic cyst. Patient started drinking beers shortly after the stent was removed. Now presents with abdominal pain, nausea, vomiting. CT imaging co nsistent with pancreatitis. Mildly elevated lipase. Also laboratory evidence of a UTI. Patient is at risk for further worsening of her symptoms worsening of electrolytes and requires hospital level care and intervention with IV medications and specialty evaluation. Mid to the MedSurg unit N.p.o. IV fluids Pain control with both oral and IV medications Consult GI MRCP for further evaluation of dilated biliary pancreatic ducts Rocephin for treatment of UTI As needed Ativan per alcohol withdrawal protocol, monitor for severe withdrawal symptoms Increase losartan for blood pressure control, suspect some of her hypertension is due to her uncontrolled pain at this time Continue other outpatient medications and inhalers as ordered Monitor sodium level, suspect hyponatremia due to excessive water intake, possible beer potomania Significant other at bedside agreeable plan of care as well History of Present Illness Chief Complaint: Increasing abdominal pain over the last few days. Nausea and vomiting today Primary Care Provider: Myesha Cavanaugh MD Patient is a 54-year-old female with known history of alcohol induced pancreatitis. She subsequently had significant pancreatic cyst and had Axios stent placed for drainage and September. She just had the Axios stent removed on 10/23/2024. She thought that since the pancreatic cyst had resolved and the stent was removed it was okay to drink beer. She states that she was having 2-3 beers nightly since the stent was removed. About 5 days ago she started having some more abdominal pain. Seem to progress. She states that she limited her diet but was still drinking lots of water. Reported drinking a minimum of 40+ ounces of water a day. Over the last 24 hours started to get more nauseated having dry heaves. Today had rich emesis. She denies any blood in the emesis. She does states that since the Axios stents been removed she has been having some loose stools. Came to the emergency room due to the uncontrolled pain and now emesis. In the emergency room had mildly elevated lipase. CT imaging question some mild pancreatitis in the slightly more dilated pancreatic duct. Referred to our service for further evaluation. Time my evaluation patient was in moderate distress due to abdominal pain. She did admit to drinking 2-3 beers a day since she had her Axios stent removed, however, denies any beer or alcohol intake over the last 2 to 3 days. She denies any fever but thinks she may have had some chills. No blood in the emesis or her stool. She does have some increased urinary frequency but no dysuria. No swelling in her hands arms legs or feet. No new joint pains. Known to have COPD and uses her inhaler but no increased shortness of breath or wheezing. No chest pains. Allergies Allergy/AdvReac Type Severity Reaction Status Date / Time latex Allergy Intermediate ITCHY Verified 06/25/24 12:37 nickel Allergy Intermediate Rash Verified 06/25/24 12:37 tea tree Allergy Unknown Hives Verified 06/25/24 12:37 amoxicillin AdvReac Intermediate thrush Verified 06/25/24 12:37 Home Medications Medication Instructions Recorded Confirmed Type albuterol sulfate 90 mcg/actuation 2 puff inhalation Q4 PRN Shortness 09/25/19 06/24/24 History aerosol inhaler Of Breath Or Wheezing loratadine 10 mg tablet 10 mg PO QDL 09/25/19 06/24/24 History lorazepam 0.5 mg tablet 0.5 mg PO BID PRN Anxiety 09/25/19 06/24/24 History trazodone 50 mg tablet 50 mg PO HS 09/25/19 06/24/24 History duloxetine 60 mg capsule,delayed 60 mg PO QAM 03/08/23 06/24/24 History release mometasone-formoterol HFA 200 2 puff inhalation BID 03/08/23 06/24/24 History mcg-5 mcg/actuation aerosol inhaler (Dulera) omeprazole 20 mg capsule,delayed 20 mg PO QAM 03/08/23 06/24/24 History release pregabalin 150 mg capsule 150 mg PO AMHS 03/08/23 06/24/24 History folic acid 1 mg tablet 2 mg (2 x 1 mg) PO DAILY #60 tabs 03/11/23 06/24/24 Rx amlodipine 5 mg tablet (Norvasc) 5 mg PO QAM 04/16/24 06/24/24 History cyclobenzaprine 5 mg tablet 5 mg PO TID PRN MUSCLE SPASMS 04/16/24 06/24/24 History fluoxetine 20 mg capsule 20 mg PO QAM 04/16/24 06/24/24 History fluoxetine 40 mg capsule 40 mg PO QAM 04/16/24 06/24/24 History hydroxyzine HCl 50 mg tablet 50 mg PO Q6H PRN ITCHING/ANXIETY 04/16/24 06/24/24 History montelukast 10 mg tablet 10 mg PO HS 04/16/24 06/24/24 History oxycodone 5 mg tablet 5 mg PO Q4H PRN pain #12 tabs 04/19/24 06/24/24 Rx thiamine HCl (vitamin B1) 100 mg 100 mg PO QAM #30 tabs 04/19/24 06/24/24 Rx tablet buprenorphine 5 mcg/hour weekly 1 patch transdermal Q7D 05/31/24 06/24/24 History transdermal patch (Butrans) losartan 50 mg tablet 50 mg PO QAM 06/24/24 06/24/24 History Past Med/Surg History Problem List (Updated 11/06/24 @ 21:26 by Fer Collins DO) COPD (chronic obstructive pulmonary disease) Essential hypertension Major depression, chronic Alcoholic peripheral neuropathy Spinal stenosis of lumbar region with neurogenic claudication Urinary tract infection Acute pancreatitis (Acute) Hallucinations Alcoholic encephalopathy Visual disturbance Chronic hyponatremia HTN (hypertension) Chronic anemia Alcohol abuse Tobacco use GERD (gastroesophageal reflux disease) Moderate persistent asthma Depression Ataxia (Acute) Stroke-like symptom (Acute) Vancomycin-induced nephrotoxicity Right otitis media (Acute) PNA (pneumonia) (Acute) Acute bronchiolitis (Acute) Acute asthma exacerbation (Acute) Acute asthma exacerbation (Acute) Fibromyalgia (Chronic) Asthma (Chronic) Medical History (Updated 11/06/24 @ 21:26 by Fer Collins DO) History of renal dialysis due to overdose of vancomycin. 2019 Vancomycin-induced nephrotoxicity caused renal failure 2019 and required dialysis 3 times a week for one to two months Chronic back pain Depression GERD (gastroesophageal reflux disease) History of alcohol abuse Chronic anemia pt not aware Alcoholic encephalopathy hx Medical marijuana use HTN (hypertension) pt denies Fatty liver History of COVID-19 (2021) no hosp; resolved Hx: recurrent pneumonia states yearly issues w/ pneumonia or bronchitis last time ? 2022 Asthma controlled w/ daily inhaler use Fibromyalgia Cyst of pancreas Hx of acute pancreatitis Alcoholic cerebellar degeneration Surgical History Hx of tooth extraction History of esophagogastroduodenoscopy (EGD) Hx of tonsillectomy History of spinal surgery unsure what level Family History Other Asthma Cancer Social History Smoking Status: Current every day smoker Tobacco Type: Cigarettes Cigarettes Per Day: 6 a day; Second Hand Exposure: No; Do You Dip or Chew Tobacco: No; Hx Alcohol Use: Yes Alcohol type: beer Alcohol Intake Frequency Comment: 5-6 daily Hx Substance Use: Yes Last Used Substance Other:: medical mino Preferred Language: Croatian Communication Ability: Effective 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 Sclera clear Neck: Soft, no adenopathy Lungs: Decreased breath sounds, prolonged expiratory phase, no wheezes CV: S1-S2, regular, tachycardic Abdomen: Soft, diffusely tender, mild guarding, no rigidity, no rebound, no masses Extremities: No significant edema Musculoskeletal: No significant joint tenderness Neuro: No focal deficits Psych: Cooperative, extremely anxious Results & Data Results & Data Vital Signs (Past 12 Hours) Vital Signs Temp Pulse Resp BP Pulse Ox O2 Del Method 11/06/24 18:25 97 H 11/06/24 15:45 36.4 C L 106 H 16 186/112 H 99 Room Air Diagnostic Findings Reviewed imaging, laboratory and diagnostic studies. Pertinent findings as below. WBCs 11.6 Hemoglobin 12.5 Platelets of 364 Sodium 127 Chloride 96 Creatinine 0.77 Total bilirubin 0.5 AST 17 ALT 17 alk phos 166 lipase 321 Urinalysis negative nitrate 2+ leukocyte esterase 3+ bacteria CT of the abdomen and pelvis showed some diffuse interstitial edema the pancreas suggestive of mild acute pancreatitis Common bile duct is dilated with mild intrahepatic biliary dilatation mildly progressed since previous study with 7 mm. Pancreatic ducts mildly dilated 7 mm. Cystic lesion in the pancreatic head had resolved (1) Acute pancreatitis Acute pancreatitis complication: unspecified Pancreatitis type: alcohol induced Qualified Code(s): K85.20 - Alcohol induced acute pancreatitis without necrosis or infection
[2024-11-06] MEDS: MoRPHine SULFATE 10 MG/ML CARP/VIAL IV STA (21:29)
[2024-11-06] MEDS ORDERED: MoRPHine SULFATE 10 MG/ML CARP/VIAL IV PRN (23:06)
[2024-11-06] MEDS ORDERED: oxyCODONE HCL IR 5 MG TAB (IMMEDIATE RELEASE) PO PRN (23:06)
[2024-11-06] MEDS ORDERED: CYCLOBENZAPRINE HCL 5 MG TAB PO PRN (23:06)
[2024-11-06] MEDS ORDERED: ALBUTEROL HFA 8 GM INHALER INH PRN (23:06)
[2024-11-06] MEDS ORDERED: LORazepam 1 MG TAB PO PRN (23:06)
[2024-11-06] MEDS ORDERED: ONDANSETRON INJ 2 MG/ML 2 ML VIAL IV PRN (23:06)
[2024-11-06] MEDS ORDERED: ACETAMINOPHEN 325 MG TAB PO PRN (23:06)
[2024-11-06] MEDS: SODIUM CHLORIDE 0.9% 1,000 ML IV SCH (23:28)
[2024-11-07] MEDS: CHECK BUPRENORPHINE PATCH SCH
[2024-11-07] MEDS: LORazepam 2 MG/1 ML VIAL IV PRN (00:12)
[2024-11-07] MEDS: traZODone HCL 50 MG TAB PO SCH (00:16)
[2024-11-07] MEDS: cefTRIAXone SODIUM 1,000 MG/50 ML BAG IV SCH (00:28)
[2024-11-07] MEDS ORDERED: GABAPENTIN 1200MG ALCOHOL WITHDRAWAL LOAD PO STA (01:03)
[2024-11-07] MEDS ORDERED: Ativan IV Alcohol Withdrawal--Active Protocol IV PRN (01:03)
[2024-11-07] MEDS ORDERED: LORazepam 2 MG/1 ML VIAL IV PRN ×3 (01:03)
[2024-11-07] MEDS: LORazepam 2 MG/1 ML VIAL IV STA (01:17)
[2024-11-07] MEDS: GABAPENTIN 600 MG TAB PO ONE (01:19)
[2024-11-07] MEDS: SODIUM CHLORIDE 0.9% 1,000 ML IV SCH ×2 (01:20→06:20)
[2024-11-07] MEDS: cloNIDine HCL 0.1 MG TAB PO PRN (01:43)
--- OUTSIDE RECORDS SUMMARY | 2024-11-07 04:05 | External Medical Summary | Summary of Care ---
Author Name Unknown Organization [facility] Address [address] [facility] [place] [address] Phone [phone] Care Team Providers Care Facilities Director Name Role Phone Олег Cavanaugh MD Primary Care Provid er Reason for Visit * Reason Onset Date Comments Med Request 10/24/2024 Encounter Details Date Type Department Care Team (Late st Contact Info) Description 10/24/2024 Refill Pharmacy, [facility] [address] [facility] [place] [address] [facility] [address] [facility] [place] [address] Spinal stenosis of lumbar region with neurogenic claudication; Chronic left shoulder pain Allergies Active Allergy Reactions Criticality Noted Date Comments Amoxicillin 01/05/2017 thrush Latex 06/20/2013 Hives, rash and swelling Lisinopril 06/02/2023 COUGH Nickel Rash 12/03/2020 documented as of this encounter (statuses as of 10/25/2024) Medications Compressor NebulizerIndicat ions:Moderate persistent asthma without complication,[employer] D, 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 Use as directed. 1 Each 1 05/26/20 Active Acetaminophen 500 MG Oral Tablet (Tylenol) Take 2 Tablets by mouth every 6 hours as needed. Active DULoxetine HCl 60 MG Oral Capsule Delayed Release Particles (Cymbalta)Indica tions:Fibromyalg ia,Major depressive disorder with single episode, in full remission (HCC) TAKE 1 CAPSULE BY MOUTH ONCE DAILY IN THE MORNING DO NOT CUT, CRUSH, OR CHEW CAPSULE 90 Capsule 3 12/18/19 24 Active FLUoxetine HCl 20 MG Oral Capsule (PROzac)Indicati ons:Anxiety,Hist ory of alcohol use disorder,Current severe episode of major depressive disorder without psychotic features, unspecified whether recurrent (HCC),Major depressive disorder with single episode, in full remission (HCC) Take 1 Capsule by mouth in the morning. Add to 40mg dose for total daily dose 60mg.. 90 Capsule 1 03/25/20 24 Active Dulera 200-5 MCG/ACT Inhalation Aerosol (Mometasone-Form oterol)Indicatio ns:COPD, 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) Inhale 2 Puffs by mouth in the morning and 2 Puffs before bedtime. 13 g 11 04/01/20 24 Active Albuterol Sulfate (2.5 MG/3ML) 0.083% Inhalation Nebulization Solution (Proventil)Indic ations:COPD, 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),Moderate persistent asthma without complication Inhale 1 Vial via nebulizer every 6 hours as needed for Wheezing. 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 90 Tablet 3 05/28/20 24 Active Additional Information Patient not taking.Reported on 10/23/2024 Omeprazole 20 MG Oral Capsule Delayed Release (PriLOSEC)Indica tions:Epigastric pain,Gallbladder sludge,Gastroeso phageal reflux disease without esophagitis Take 1 capsule by mouth twice daily 60 Capsule 5 06/03/20 24 Active Fluticasone-Umec lidin-Vilant 100-62.5-25 MCG/ACT Aerosol Powder Breath Activated (Trelegy Ellipta)Indicati ons:COPD, 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) Inhale 1 Puff by mouth in the morning. 60 Blister Dosing Unit 5 07/01/20 24 Active traZODone HCl 50 MG Oral Tablet (Desyrel)Indicat ions:Major depressive disorder with single episode, in full remission (HCC) TAKE 1 TABLET BY MOUTH AT BEDTIME 90 Tablet 3 07/02/20 24 Active Losartan Potassium 50 MG Oral Tablet (Cozaar) TAKE 1 TABLET BY MOUTH IN THE MORNING 90 Tablet 1 08/01/20 24 Active Montelukast Sodium 10 MG Oral Tablet (Singulair)Indic ations:Chronic cough TAKE 1 TABLET BY MOUTH AT BEDTIME 90 Tablet 3 09/30/19 25 Active hydrOXYzine HCl 50 MG Oral TabletIndication s:Anxiety,Prurit us Take 1 Tablet by mouth every 6 hours as needed for Itching or Anxiety. 60 Tablet 5 09/30/19 25 Active Pregabalin 150 MG Oral Capsule (Lyrica)Indicati ons:Spinal stenosis of lumbar region with neurogenic claudication Take 1 Capsule by mouth in the morning and 1 Capsule before bedtime. 60 Capsule 2 09/30/19 25 Active FLUoxetine HCl 40 MG Oral Capsule (PROzac)Indicati ons:Major depressive disorder with single episode, in full remission (HCC) Take 1 capsule by mouth once daily in the morning 90 Capsule 1 10/11/19 25 Active EQ All Day Allergy Relief 10 MG Oral Tablet (Loratadine) Take 1 tablet by mouth once daily 90 Tablet 1 10/11/19 25 Active HYDROcodone-Acet aminophen 7.5-325 MG Oral TabletIndication s:Spinal stenosis of lumbar region with neurogenic claudication,Chr onic left shoulder pain Take 1 Tablet by mouth every 8 hours as needed for Pain, Severe. 90 Tablet 10/25/19 25 Active Buprenorphine 10 MCG/HR Transdermal Patch Weekly (Butrans)Indicat ions:Spinal stenosis of lumbar region with neurogenic claudication,Sac roiliac joint pain,Lumbar radiculitis,Hist ory of lumbar fusion Place 1 Patch over 7 days topically on the skin once a week. Do not start before September 24, 2024. 4 Patch 5 09/24/19 25 025 Discontin ued(Patie nt preferenc e/discont inuation) HYDROcodone-Acet aminophen 7.5-325 MG Oral TabletIndication s:Spinal stenosis of lumbar region with neurogenic claudication,Chr onic left shoulder pain Take 1 Tablet by mouth every 8 hours as needed for Pain, Severe. 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, uncomplicated 09/30/2024 Cluster B personality disorder 09/30/2024 Age-related nuclear cataract, left eye MGUS (monoclonal gammopathy of unknown significa nce) [...] as of this encounter (statuses as of 10/25/2024) Resolved Problems Problem Noted Date Diagnosed Date Resolved Date Food insecurity 04/19/2021 08/26/2021 Overview: Per [facility] Protocol Asthma exacerbation 03/30/2015 07/07/20 17 Moderate persistent asthma 11/09/2014 0 03/30/2015 Overview (11/13/2014): PFT Pneumonitis 07/24/2014 01/06/2022 Asthma exacerbation 07/24/2014 03/30/20 15 documented as of this encounter (statuses as of 10/25/2024) Immunizations Name Administration Dates Next Due PPD 07/27/2021,07/05/2017 Pneumococcal Polysaccharide PPV23 (Pneumovax) Seasonal Influenza Vac., MDV, IM, 0.5 mL (Fluzon e) 06/20/2013 Seasonal Influenza, PF, 6 M & above, IM , (FluLaval or Fluzone) 07/07/2017 07/07/2018 TDAP (age 10 and older)(Boostrix) 06/20/2013 documented as of this encounter Social History Tobacco Use Types Packs/Day Years Used Date Smoking Tobacco: Every Day Cigarettes 0.3 30 Passive Smoke Exposure: Past Smokeless Tobacco: Never Comments:smoke 2-4 cig a day Alcohol Use Standard Drinks/Week Comments Yes 4 (1 standard drink = 0.6 oz pure alcohol) social, every evening, beer- daily approx 3-4 beers PHQ-2 Answer Date Recorded PHQ Adult Total Score 22 10/09/2024 Hunger Vital Sign Answer Date Recorded Within the past 12 months, y ou worried that your food would run out before you got the money to buy more. Never true 05/16/20 24 Within the past 12 months, t he food you bought just didn't last and you didn't have money to get more. Never true 05/16/2024 Childcare Answer Date Recorded Do you feel overwhelmed with taking care of a child, family member or friend? No 05/16/2024 Does your family need help f inding childcare? (Household - for ages 0-17 years) Not on file 05/16/2024 Clothing Answer Date Recorded Have you been unable to get clothing when it was really needed? No 05/16/2024 Is your family able to get c lothes or diapers when needed? (Household - for ages 0-17 years) Not on file 05/16/2024 Personal Safety Answer Date Recorded Do you feel unsafe or have concerns for your saf ety? No 05/16/2024 Do you have concerns for you r family's safety? (Household - for ages 0-17 years) Not on file 05/16/2024 Utilities Answer Date Recorded Do you have trouble paying y our heating, water, or electric bill? No 05/16/2024 Is your family able to pay t he heat, water, or electric bill? (Household - for ages 0-17 years) Not on file 05/16/2024 Does your family have access to good internet? (Household - for ages 0-17 years) Not on file 05/16/2024 Employment Status Answer Date Recorded Are you unemployed or without regular income? No 05/16/2024 Does the household have a re gular source of income? (Household - for ages 0-17 years) Not on file 05/16/2024 Social Connections Answer Date Recorded How often do you feel lonely or isolated from th ose around you? Rarely 05/16/2024 Financial Resource Strain Answer Date R ecorded Do you have any trouble payi ng for your medications, or do you think you might in the future? No 05/16/2024 Does your family have troubl e paying for medicine? (Household - for ages 0-17 years) Not on file 05/16/2024 Transportation Needs Answer Date Record ed Do you have trouble getting a ride to medical visits or work? (Adult - for ages 18 years and over) Not on file 05/16/2024 Does your family have a hard time getting a ride to doctors visits? (Household - for ages 0-17 years) Not on file 05/16/2024 Has lack of transportation k ept you from medical appointments, meetings, work, or from getting things needed for daily living? Check all that apply. No 05/16/2024 Do you (or your family) have trouble finding or paying for a ride (transportation)? (Household - for ages 0-17 years) Not on file 05/16/2024 Housing Stability Answer Date Recorded Do you currently live in a s helter or have no steady place to sleep at night? No 05/16/2024 Do you think you are at risk of becoming homeless? (Adult - for ages 18 years and over) Not on file 05/16/2024 Does your family worry about paying for your home or becoming homeless? (Household - for ages 0-17 years) Not on file 0 05/16/2024 Are you homeless or worried that you might be in the future? No 05/16/2024 Are you (or your family) romina eless or worried that you might be in the future? (Household - for ages 0-17 years) Not on file Food Insecurity Answer Date Recorded Do you need food for this week? No 05/16/2024 Are you able to get enough f ood for your family? (Household - for ages 0-17 years) Not on file 05/16/2024 Does your family need food t his week? (Household - for ages 0-17 years) Not on file 05/16/2024 Do you always have enough fo od for your family? (Household - for ages 0-17 years) Not on file 05/16/2024 Food Insecurity Answer Date Recorded Within the past 12 months, y ou worried that your food would run out before you got the money to buy more. Never true 05/16/20 24 Within the past 12 months, t he food you bought just didn't last and you didn't have money to get more. Never true 05/16/2024 Do you need food for this week? No 05/16/2024 Education Answer Date Recorded What is the highest level of school you have completed or the highest degree you have received? High school graduate 10/09/2024 Comments No Sex and Gender Information Value Date Recorded Sex Assigned at Female 11/27/2018 11:48 AM EDT Legal Sex Female 6:59 AM EST Gender Identity Female 11/27/2018 11:48 AM EDT Sexual Orientation Straight 10/09/2024 12 :42 PM EST Occupation Industry Job Start Date Job End Date [employer] Not on file Not on file Not on file On Disability Not on file Not on file Not on file documented as of this encounter Functional Status * Are you deaf or do you have serious difficulty hearing? Answer Date of Assessment Author No 10/12/2017 10:29 AM Ashley Suggs RN * Are you blind or do you have serious difficulty seeing, even when wearing glasses? Answer Date of Assessment Author No 10/12/2017 10:29 AM Ashley Suggs RN * Do you have serious difficulty walking or climbing stairs? (5 years old or older) Answer Date of Assessment Author Yes 10/12/2017 10:29 AM Ashley Suggs RN * Do you have difficulty dressing or bathing? (5 years old or older) Answer Date of Assessment Author No 10/12/2017 10:29 AM Ashley Suggs RN * Because of a physical, mental, or emotional condition, do you have difficulty doing errands alone such as visiting a doctors office or shopping? (15 years old or older) Answer Date of Assessment Author Yes 10/12/2017 10:29 AM EST Saba, Ashley B, RN documented as of this encounter Mental Status * Because of a physical, mental, or emotional condition, do you have serious difficulty concentrating, remembering, or making decisions? (5 years old or older) Answer Entry Date Author Yes 10/12/2017 10:29 AM EST Ashley Saba RN documented in this encounter Miscellaneous Notes * Telephone Encounter - Олег Cavanaugh MD - 10/25/2024 2:00 PM EST Signed Prescriptions: Disp Refills HYDROcodone-Acetaminophen 7.5-325 MG Oral *90 Tab*0 Sig: Take 1 Tablet by mouth every 8 hours as needed for Pain, Severe. Authorizing Provider: ОЛЕГ CAVANAUGH * Telephone Encounter - Олег Cavanaugh MD - 10/25/2024 2:00 PM EST Signed Prescriptions: Disp Refills HYDROcodone-Acetaminophen 7.5-325 MG Oral *90 Tab*0 Sig: Take 1 Tablet by mouth every 8 hours as needed for Pain, Severe. Authorizing Provider: ОЛЕГ CAVANAUGH * Telephone Encounter - Claudia Sotelo CPhT - 10/25/2024 10:34 AM EST Patient calling to check on status of refill request Thank you, Claudia Sotelo [employer] [facility] 10/25/2024 10:34 AM * Telephone Encounter - Aubree Vogel CPhT - 10/24/2024 4:27 PM EST Pt is asking for a high priority message be sent to her PCP so that her medication can be written tomorrow morning and be available at the pharmacy tomorrow afternoon for pickup. Please advise Thank you, Chyna Vogel CPhT [employer] Super[employer] [facility] 10/24/2024,4:28 PM * Telephone Encounter - Lisbeth Odonnell RPh - 10/24/2024 9:53 AM EST Patient seen by [facility] Pain today. Notes that butrans patch did not help and made her tired, requesting to return to hydrocodone at this time. Prescription pended for your approval. Thank you, Lisbeth Odonnell, Pharm D, [facility] Clinical Pharmacist 10/24/2024, 9:53 AM documented in this encounter Plan of Treatment Upcoming Encounters Date Type Department Care Team (Late st Contact Info) Description 11/13/2024 3:30 PM EST Office Visit Orthopaedics [facility] [address] [place] [id number] Darrin Celestin MD [address] [place] [phone] 11/14/2024 11:40 AM EST Telemedicine Pharmacy, [facility] [address] [place] [address] [facility] [address] [place] [address] 03/26/2025 3:00 PM EDT Laboratory Laboratory, Kendrick Griggs [address] [place] [phone] Lizzette Marks [address] [place] [address] 03/31/2025 3:20 PM EDT Office Visit Family Practice, [facility] [address] [place] [phone] Олег Cavanaugh MD [address] [place] [address] Scheduled Procedures Name Priority Associated Diagnoses Date/Ti me ESOPHAGOGASTRODUODENOSCOPY ( EGD), FLEXIBLE, TRANSORAL, DIAGNOSTIC Recall Metz's esophagus with esophagitis Health Maintenance Due Date Last Done Comments Alpha-1 Antitrypsin 1987 Hepatitis B Vaccine (1 of 3 - 19+ 3-dose series) 1988 HPV/Co-Test 1999 Cologuard 2014 Fecal Occult Blood Test 2014 Sigmoidoscopy 2014 Pneumococcal Vaccine: 50+ Years (2 of 2 - PCV) 06/20/2014 06/20/2013 Cervical Cancer Screening 07/07/2020 Pap Smear 07/07/2020 07/07/2017, 07/16/2013 DISCUSS TOBACCO CESSATION (REFER TO SMARTSET #3291) 01/06/2023 01/06/2022, 09/23/2021 DTap/Tdap Vaccines (2 - Td or Tdap) 06/20/2023 06/20/2013 Mammogram 01/18/2024 01/17/2023, 05/0 05/2023, 06/27/2013 COVID-19 Vaccine ( season) 2024 Influenza Vaccine (FLU shot) (#1) 2024 07/07/2017, 06/20/2013 GFR 12/30/2024 12/31/2023, 04/, 11/28/2023, Additional history exists HIV Screening 03/25/2025 Postponed from 1984 (Patient Declined After Education) Zoster Vaccines (1 of 2) 03/25/2025 Pos tponed from 2019 (Patient Declined After Education) Depression Monitoring 10/09/2025 10/09/2024 O2 ASSESSMENT COMPLETED IN PAST YEAR FOR COPD 10/23/2025 10/23/2024 Albumin/Creatinine Ratio 09/01/2026 09/01/2023 Lipid Panel 05/11/2027 05/11/2022 Colonoscopy 09/27/2033 09/27/2023 Colorectal Cancer Screening 09/27/2033 HPV (Gardasil) Vaccine Aged Out No lo nger eligible based on patient's age to complete this topic MENINGOCOCCAL (MENACTRA/MENVEO) Aged Out No longer eligible based on patient's age to complete this topic Meningitis B Vaccine (Bexsero/Trumemba) Aged Out No longer eligible based on patient's age to complete this topic documented as of this encounter Medical Devices Implanted Type Area Rcp Device Identifier Shelf Expiration Date Model / Serial / Lot Vitoss Bimodal Foam Pack 10cc - [id number] Implanted:Qty : 2 on 10/11/2017 by Rosendo Nathan DO at [facility] N/A: Spine Lumbar SARAH : SPINE 03/08/2019 / / [id number] Vitoss Bimodal Foam Pack 10cc - [id number] Implanted:Qty : 1 on 10/11/2017 by Rosendo Nathan DO at [facility] N/A: Spine Lumbar SARAH : SPINE 02/05/2019 / / [id number] Screw Audie Bina 3 Ti Set - [id number] Implanted:Qty : 4 on 10/11/2017 by Rosendo Nathan DO at [facility] N/A: Spine Lumbar SARAH : SPINE [id number] / / 6.5 X 50 Mm Serrate Screws Implanted:Qty : 2 on 10/11/2017 by Rosendo Nathan DO at [facility] N/A: Spine Lumbar SARAH : SPINE [id number] / / 6.5 X 45 Mm Serrate Screw Implanted:Qty : 2 on 10/11/2017 by Rosendo Nathan DO at [facility] N/A: Spine Lumbar SARAH : SPINE [id number] / / 9 X 23x 6 - 9mm Pl Implanted:Qty : 1 on 10/11/2017 by Rosendo Nathan DO at [facility] N/A: Spine Lumbar SARAH : SPINE [id number] / / Shashank Bina 3 Ti 6x40mm - [id number] Implanted:Qty : 1 on 10/11/2017 by Rosendo Nathan DO at [facility] N/A: Spine Lumbar SARAH : SPINE [id number] / / Shashank Bina 3 Ti 6x45mm - [id number] Implanted:Qty : 1 on 10/11/2017 by Rosendo Nathan DO at [facility] N/A: Spine Lumbar SARAH : SPINE [id number] / / Stent Axios [id number] - [id number] Implanted:Qty : 1 on 09/18/2024 by Omid Snell MD at [facility] [employer] : ENDOSCOPY [id number] 05/27/2026 [id number] / / [id number] documented as of this encounter Visit Diagnoses Diagnosis Spinal stenosis of lumbar region with neurogenic claudication Spinal stenosis, lumbar region, with neurogenic claudication Chronic left shoulder pain Pain in joint, shoulder region documented in this encounter Advance Directives * Full Code (Latest Code Status on File) Date Activated Date Inactivated Comments 10/11/2017 9:23 AM 10/13/2017 10:36 PM This order r eflects the patients wishes and were consensually agreed upon. Care Teams Facilities Director Relationship Specialty Start Date End Date Олег Cavanaugh MD [address] [place] [id number] PCP - General Family Medicine 09/18/24 documented as of this encounter
--- OUTSIDE RECORDS SUMMARY | 2024-11-07 04:05 | External Medical Summary | Summary of Care ---
Author Name Unknown Organization [facility] Address [address] [place] [address] Phone [phone] Care Team Providers Care Pipe Out Worker Name Role Phone Myesha Cavanaugh MD Primary Care Provid er Reason for Visit * Reason Comments Dosage Adjustment In Person (Anticoag Cl inic) Pain Encounter Details Date Type Department Care Team (Late st Contact Info) Description 10/24/2024 9:30 AM EST Telemedicine Pharmacy, [facility] [address] [facility] [place] [id number] [facility] [address] [facility] [place] [phone] Spinal stenosis of lumbar region with neurogenic claudication*; History of lumbar fusion; Sacroiliac joint pain Allergies Active Allergy Reactions Criticality Noted Date Comments Amoxicillin 01/05/2017 thrush Latex 06/20/2013 Hives, rash and swelling Lisinopril 06/02/2023 COUGH Nickel Rash 12/03/2020 documented as of this encounter (statuses as of 10/24/2024) Medications Compressor NebulizerIndicat ions:Moderate persistent asthma without complication,[employer], 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 Use as directed. 1 Each 1 3 Active Acetaminophen 500 MG Oral Tablet (Tylenol) Take 2 Tablets by mouth every 6 hours as needed. Active DULoxetine HCl 60 MG Oral Capsule Delayed Release Particles (Cymbalta)Indica tions:Fibromyalg ia,Major depressive disorder with single episode, in full remission (HCC) TAKE 1 CAPSULE BY MOUTH ONCE DAILY IN THE MORNING DO NOT CUT, CRUSH, OR CHEW CAPSULE 90 Capsule 3 4 Active FLUoxetine HCl 20 MG Oral Capsule (PROzac)Indicati ons:Anxiety,Hist ory of alcohol use disorder,Current severe episode of major depressive disorder without psychotic features, unspecified whether recurrent (HCC),Major depressive disorder with single episode, in full remission (HCC) Take 1 Capsule by mouth in the morning. Add to 40mg dose for total daily dose 60mg.. 90 Capsule 1 4 Active Dulera 200-5 MCG/ACT Inhalation Aerosol (Mometasone-Form oterol)Indicatio ns:COPD, 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) Inhale 2 Puffs by mouth in the morning and 2 Puffs before bedtime. 13 g 11 4 Active Albuterol Sulfate (2.5 MG/3ML) 0.083% Inhalation Nebulization Solution (Proventil)Indic ations:COPD, 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),Moderate persistent asthma without complication Inhale 1 Vial via nebulizer every 6 hours as needed for Wheezing. J45.40 J44.9 360 mL 11 4 Active Albuterol Sulfate HFA 108 (90 Base) MCG/ACT Inhalation Aerosol SolutionIndicati ons:Exacerbation of asthma, unspecified asthma severity, unspecified whether persistent INHALE 2 PUFFS BY MOUTH EVERY 4 HOURS NEEDED FOR WHEEZING 54 g 2 4 Active Folic Acid 1 MG Oral TabletIndication s:Anemia due to folic acid deficiency, unspecified deficiency type Take 1 Tablet by mouth in the morning. 90 Tablet 3 4 Active Additional Information Patient not taking.Reported on 10/23/2024 Omeprazole 20 MG Oral Capsule Delayed Release (PriLOSEC)Indica tions:Epigastric pain,Gallbladder sludge,Gastroeso phageal reflux disease without esophagitis Take 1 capsule by mouth twice daily 60 Capsule 5 4 Active Fluticasone-Umec lidin-Vilant 100-62.5-25 MCG/ACT Aerosol Powder Breath Activated (Trelegy Ellipta)Indicati ons:COPD, 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) Inhale 1 Puff by mouth in the morning. 60 Blister Dosing Unit 5 4 Active traZODone HCl 50 MG Oral Tablet (Desyrel)Indicat ions:Major depressive disorder with single episode, in full remission (HCC) TAKE 1 TABLET BY MOUTH AT BEDTIME 90 Tablet 3 4 Active Losartan Potassium 50 MG Oral Tablet (Cozaar) TAKE 1 TABLET BY MOUTH IN THE MORNING 90 Tablet 1 4 Active Montelukast Sodium 10 MG Oral Tablet (Singulair)Indic ations:Chronic cough TAKE 1 TABLET BY MOUTH AT BEDTIME 90 Tablet 3 5 Active hydrOXYzine HCl 50 MG Oral TabletIndication s:Anxiety,Prurit us Take 1 Tablet by mouth every 6 hours as needed for Itching or Anxiety. 60 Tablet 5 5 Active Pregabalin 150 MG Oral Capsule (Lyrica)Indicati ons:Spinal stenosis of lumbar region with neurogenic claudication Take 1 Capsule by mouth in the morning and 1 Capsule before bedtime. 60 Capsule 2 5 Active HYDROcodone-Acet aminophen 7.5-325 MG Oral TabletIndication s:Spinal stenosis of lumbar region with neurogenic claudication,Chr onic left shoulder pain Take 1 Tablet by mouth every 8 hours as needed for Pain, Severe. 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 abuse, uncomplicated 09/30/2024 Cluster B personality disorder 09/30/2024 Age-related nuclear cataract, left eye 4 MGUS (monoclonal gammopathy of unknown significa nce) [...] as of this encounter (statuses as of 10/24/2024) Resolved Problems Problem Noted Date Diagnosed Date Resolved Date Food insecurity 04/19/2021 08/26/2021 Overview: Per [facility] Protocol Asthma exacerbation 03/30/2015 07/07/20 17 Moderate persistent asthma 11/09/2014 0 03/30/2015 Overview (11/13/2014): PFT Pneumonitis 07/24/2014 01/06/2022 Asthma exacerbation 07/24/2014 03/30/20 15 documented as of this encounter (statuses as of 10/24/2024) Immunizations Name Administration Dates Next Due PPD [...] 05/16/2024 Transportation Needs Answer Date Record ed READ ONLY Do you have troubl e getting a ride to medical visits or work? Never True 05/16/2024 Does your family have a hard [...] place to sleep at night? No 05/16/2024 READ ONLY Do you think you a re at risk of becoming homeless? No 05/16/2024 Does your family worry about paying [...] Industry Job Start Date Job End Date [employer] Not on file Not on file Not [...] Yes 10/12/2017 10:29 AM Ashley Suggs RN documented as of this encounter Mental Status * Because of a physical, mental, or emotional condition, do you have serious difficulty concentrating, remembering, or making decisions? (5 years old or older) Answer Entry Date Author Yes 10/12/2017 10:29 AM Ashley Suggs RN documented in this encounter Progress Notes * Lisbeth Odonnell, [facility] - 10/24/2024 9:32 AM EST Images from the original note were not included. Medication Therapy Disease Management - Chronic Pain History of Presenting Illness Patient location: HOME. I was in a hospital or clinic location. After connecting through [employer],patient was verified with two unique identifiers. 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 Methods to assure confidentiality were taken. Patient acknowledged consent and understanding of pr ivacy and security of the Telemedicine visit. The patient agreed to participate. Poppy Adhikari, identified by name and date of , is a 54 year old female presents to the [facility] for return visit. Chief Complaint Patient presents with Dosage Adjustment In Person (Anticoag Clinic) Pain History Past Medications SA Opioids: Percocet & Steger Current Pain Medications Flexeril 5mg TID prn spasms- not taking at all at this time Cymbalta 60mg QAM Lyrica 150mg BID- taking once daily due to forgetting second dose Hydrocodone/APAP 7.5/325 mg TID prn Interval History Notes she felt the patch did not help Notes she needs to take 2 tablets of the hydrocodone to get effect Notes she takes her hydrocodone around 1-2 pm and then again before bedtime (notes she stays up late and usually gets up around 10 am) Notes she feels like when she takes 2 tablets, the medication helps a lot, otherwise with just 1 tablet it's like "taking tylenol", notes it helps with achy parts and headaches but does not help her spine 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 Functional Goal(s) QOL History of Presenting Illness & Review of Systems Diagnosis: History of lumbar fusion; Spinal stenosis of lumbar region with neurogenic claudication Chronicity: Chronic Onset: More than a 1 year ago Frequency: Constantly Pain location: Lower back Pain quality: Throbbing Aggravated by: A change in position and twisting Treatment(s) tried: Injections, physical therapy, surgery and TENS Problem List Reviewed and updated in the EHR during the visit Substance Use Reviewed and updated in the EHR during the visit Objective Relevant Imaging 07/08/23 (MRI L spine) IMPRESSION: Motion degraded study. Sequelae of posterior fusion and posterior decompression at L4-L5 although evaluation of the hardware is limited on MRI as compared to recent CT. However, degenerative changes are most severe at the adjacent L3-L4 level, as described in detail above. Controlled Substance Compliance Monitoring Total Score for Opioid Risk Assessment Tool (BRQ): 0-2 points (Low Risk) Total Score for CAGE-AID (06/28/2024): 0 points (Unlikely Problem) Daily MME: 9MME PDMP Reviewed (06/28/2024): I have reviewed the patient's controlled substance dispensing history in the Prescription Drug Monitoring Program in compliance with the [place] regulations. Most recent answers to PEG-3 scale: PEG-3 Synopsis What number best describes your pain on average in the past week?: 5 (09/19/2024 3:43 PM) What number best describes how, during the past week, pain has interfered with your enjoyment of life?: 6 (09/19/2024 3:43 PM) What number best describes how, during the past week, pain has interfered with your general activity?: 10 - Completely interferes (09/19/2024 3:43 PM) PEG Pain Total Score: 7 (09/19/2024 3:43 PM) Last Urine Toxicology Screening Results for orders placed or performed in visit on 03/25/24 TOXICOLOGY, URINE SCREEN W/ CONFIRMATION Result Value Amphetamines Screen, U Negative Benzodiazepines Screen, U Negative Cannabinoids Screen, U Positive (A) Cocaine Metabolite Screen, U Negative Fentanyl Screen, U Negative Hydrocodone Screen, U Negative Methadone Metabolite Screen, U Negative Morphine/Codeine Screen, U Negative Oxycodone Screen, U Negative Narrative Cutoff Concentrations: Drug Level Amphetamines 500 ng/mL Benzodiazepines 100 ng/mL Cannabinoids 50 ng/mL Cocaine Metabolite 150 ng/mL Fentanyl 1 ng/mL Hydrocodone / Hydromorphone 300 ng/mL Methadone Metabolite 100 ng/mL Morphine / Codeine 300 ng/mL Oxycodone / Oxymorphone 100 ng/mL Screening results are presumptive and can only be used for medical purposes. Positive screening results are reflexed to confirmatory testing. *Note: Due to a large number of results and/or encounters for the requested time period, some results have not been displayed. A complete set of results can be found in Results Review. Creatinine Clearance: Creatinine clearance cannot be calculated (Patient's most recent lab result is older than the maximum 180 days allowed.) Creatinine Results: Recent Labs Units 12/31/23 0540 12/30/23 0720 11/28/23 1229 CREATININE - [facility] mg/dL 0.7 0.7 0.89 Hepatic Function (ALT): Recent Labs Units 11/28/23 1229 10/31/23 1039 10/25/23 1025 ALT - [facility] U/L -- 43* 140* ALT-OUTSIDE LAB U/L 9 -- -- Comprehensive Metabolic Panel Results: Results for orders placed or performed in visit on 10/31/23 COMPREHENSIVE METABOLIC PANEL Result Value Ref Range BUN 14 6 - 20 mg/dL CREATININE 0.9 0.5 - 1.0 mg/dL EGFR 79 >=60 mL/min SODIUM 138 135 - 146 mmol/L POTASSIUM 4.6 3.5 - 5.1 mmol/L CHLORIDE 103 98 - 107 mmol/L CO2 21 (L) 22 - 32 mmol/L ANION GAP 14 7 - 15 mmol/L GLUCOSE 94 70 - 120 mg/dL Albumin 3.6 (L) 3.8 - 5.0 g/dL AST 35 10 - 35 U/L Alkaline Phosphatase 195 (H) 35 - 130 U/L Bilirubin, Total 0.5 <=1.2 mg/dL CALCIUM 9.4 8.4 - 10.2 mg/dL Protein 6.8 6.0 - 8.3 g/dL ALT 43 (H) 10 - 35 U/L Assessment & Plan Patient aware MTM is a clinical pharmacist visit, with focus on medication options for current diagnoses referred by Primary Care Provider for review and optimization. The focus of this visit is: Medication optimization. Current regimen reviewed, patient is: Adherent to regimen. Treatment Options Rotate from Butrans to Hydrocodone 7.5/325 mg TID prn, potentially increase to this but at this time will get her on this strength routinely to see how it helps Treatment Concerns N/A Education Provided Patient educated on mechanism, time to efficacy and potential adverse effects of medication regimen Recommendations START: Hydrocodone 7.5/325 mg TID prn Poppy verbalized understanding of the plan. Contact clinic with any issues. Visit date not found I spent a total of 20-29 minutes(20 minutes) on the date of service in preparation, delivery, and documentation of the care provided to Poppy Adhikari excluding any time spent in the performance of separately billed services or time spent by another provider/QHP. Lisbeth Odonnell, Pharm D, BCACP Clinical Pharmacist 10/24/2024, 9:55 AM documented in this encounter Plan of Treatment Upcoming Encounters Date Type Department Care Team (Late st Contact Info) Description 11/13/2024 3:30 PM EST Office Visit Orthopaedics [facility] [address] [place] [phone] Darrin Celestin MD [address] [place] [phone] 11/14/2024 11:40 AM EST Telemedicine Pharmacy, [facility] [address] [place] [id number] [facility] [address] [place] [phone] 03/26/2025 3:00 PM EDT Laboratory Laboratory, [facility] [place] [phone] Lizzette Marks [address] [place] [phone] 03/31/2025 3:20 PM EDT Office Visit Family [facility], [address] [facility] [place] [phone] Myesha Cavanaugh MD [address] [facility] [place] [phone] Scheduled Procedures Name Priority Associated Diagnoses Date/Ti [...] 07/16/2013 DISCUSS TOBACCO CESSATION (REFER TO SMARTSET #8536) 01/06/2023 01/06/2022, 09/23/2021 DTap/Tdap Vaccines (2 - Td or Tdap) 06/20/2023 06/20/2013 Mammogram 01/18/2024 01/17/2023, 05/05/2023, 06/27/2013 COVID-19 Vaccine (1 - 2023- season) 2024 Influenza Vaccine (FLU shot) (#1) [...] this encounter Medical Devices Implanted Type Area Food Scientist Device Identifier Shelf Expiration Date Model / Serial / Lot Vitoss Bimodal Foam Pack 10cc - [id number] Implanted:Qty : 2 on 10/11/2017 by Rosendo Nathan, at [facility] N/A: Spine Lumbar SARAH : SPINE 03/08/[id number] / / [id number] Vitoss Bimodal Foam Pack 10cc - [id number] Implanted:Qty : 1 on 10/11/2017 by Rosendo Nathan, at [facility] N/A: Spine Lumbar SARAH : SPINE 02/05/[id number] / / [id number] Screw Audie Bina 3 Ti Set - [id number] Implanted:Qty : 4 on 10/11/2017 by Rosendo Nathan DO at [facility] N/A: Spine Lumbar SARAH : SPINE [id number] / / 6.5 X 50 Mm Serrate Screws Implanted:Qty : 2 on 10/11/2017 by Rosendo Nathan DO at [facility] N/A: Spine Lumbar SARAH : SPINE [id number] / / 6.5 X 45 Mm Serrate Screw Implanted:Qty : 2 on 10/11/2017 by Rosendo Nathan DO at [facility] N/A: Spine Lumbar SARAH : SPINE [id number] / / 9 X 23x 6 - 9mm Pl Implanted:Qty : 1 on 10/11/2017 by Rosendo Nathan DO at [facility] N/A: Spine Lumbar SARAH : SPINE [id number] / / Shashank Bina 3 Ti 6x40mm - [id number] Implanted:Qty : 1 on 10/11/2017 by Rosendo Nathan DO at [facility] N/A: Spine Lumbar SARAH : SPINE [id number] / / Shashank Bina 3 Ti 6x45mm - [id number] Implanted:Qty : 1 on 10/11/2017 by Rosendo Nathan DO at [facility] N/A: Spine Lumbar SARAH : SPINE [id number] / / Stent [employer]xios [id number] - [id number] Implanted:Qty : 1 on 09/18/2024 by Omid Snell MD at [facility] [employer] : ENDOSCOPY [id number] 05/27/2026 [id number] / / [id number] documented as of this encounter Visit Diagnoses Diagnosis Spinal stenosis of lumbar region with neurogenic claudication- Primary Spinal stenosis, lumbar region, with neurogenic claudication History of lumbar fusion Sacroiliac joint pain Disorders of sacrum documented in this encounter Advance Directives * Full Code (Latest Code Status on File) Date Activated Date Inactivated Comments 10/11/2017 9:23 AM 10/13/2017 10:36 PM This order r eflects the patients wishes and were consensually agreed upon. Care Teams Pipe Out Worker Relationship Specialty Start Date End Date Myesha Cavanaugh MD [address] [place] [phone] PCP - General Family Medicine 09/18/24 documented as of this encounter
--- OUTSIDE RECORDS SUMMARY | 2024-11-07 04:06 | External Medical Summary | Summary of Care ---
Author Name Unknown Organization [facility] Address [address] [place] [address] Phone [phone] Care Team Providers Care Wharf Labourer Name Role Phone Myesha Cavanaugh MD Primary Care Provid er Reason for Visit * Auth/Cert Specialty Diagnoses / Procedures Referred By Jun garay Referred To Contact Diagnoses Pseudocyst of pancreas Pseudocyst of pancreas [K86.3] Procedures EGD, FLEXIBLE, DIAGNOSTIC ESOPHAGOGASTRODUODENOSCOPY (EGD), FLEXIBLE, TRANSORAL, DIAGNOSTIC Omid Snell MD [address] [place] [address] Phone: tel: fax: ENDO [facility], Endoscopy Room [facility] [address] [place] [address] Phone: tel: Referral ID Status Reason Start Date Expiration Date Visits Re quested Visits Authorized [id number] Encounter Details Date Type Department Care Team (Latest Contact Info) Description 10/23/2024 8:12 AM EST - 10/23/2024 9:56 AM EST Hospital Encounter [facility]O [facility], Endoscopy Room [facility] [address] [place] [address] Omid Snell MD [address] [place] [address] Upper GI Endoscopy Discharge Disposition: Home - Self Care Allergies Active Allergy Reactions Criticality Noted Date Comments Amoxicillin 01/05/2017 thrush Latex 06/20/2013 Hives, rash and swelling Lisinopril 06/02/2023 COUGH Nickel Rash 12/03/2020 documented as of this encounter (statuses as of 10/24/2024) Medications Compressor NebulizerIndicat ions:Moderate persistent asthma without complication,KELP GATHERER D, 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 Use [...] THE MORNING 90 Tablet 1 4 Active Buprenorphine 10 MCG/HR Transdermal Patch Weekly (Butrans)Indicat ions:Spinal stenosis of lumbar region with neurogenic claudication,Sac roiliac joint pain,Lumbar radiculitis,Hist ory of lumbar fusion Place 1 Patch over 7 days topically on the skin once a week. Do not start before September 24, 2024. 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 Answer Date of Assessment Author No 10/12/2017 10:29 AM EST Ashley Saba RN * Are you blind or do [...] Ashley Suggs RN documented in this encounter H&P Notes * Omid Snell MD - 10/23/2024 8:29 AM EST Endoscopy Pre-Procedure Assessment Name: Poppy Adhikari Date: 10/23/2024 Time: 8:29 AM Procedure(s): Upper GI Endoscopy; with Indication(s) of stent removal Endoscopy Pre-Procedure Assessment: Prior to the procedure, the patient was identified. The patient's history, medications and allergies were reviewed as per the Anesthesia Assessment. The patient is competent. The risks and benefits of the proposed procedure and the planned sedation were discussed with the patient. All questions were answered and informed consent for the procedure was obtained. [facility] 07/11/2013 Review of patient's allergies indicates: Allergen Reactions Amoxicillin thrush Latex Hives, rash and swelling Lisinopril COUGH Nickel Rash Prior to Admission medications Medication Sig Last Dose Discont. EQ All Day Allergy Relief 10 MG Oral Tablet (Loratadine) Take 1 tablet by mouth once daily 10/17/2024 FLUoxetine HCl 40 MG Oral Capsule (PROzac) Take 1 capsule by mouth once daily in the morning 10/17/2024 HYDROcodone-Acetaminophen 7.5-325 MG Oral Tablet Take 1 Tablet by mouth every 8 hours as needed forPain, Severe. 10/17/2024 hydrOXYzine HCl 50 MG Oral Tablet Take 1 Tablet by mouth every 6 hours as needed for Itching or Anxiety. 10/17/2024 Noon Montelukast Sodium 10 MG Oral Tablet (Singulair) TAKE 1 TABLET BY MOUTH AT BEDTIME 10/16/2024 Pregabalin 150 MG Oral Capsule (Lyrica) Take 1 Capsule by mouth in the morning and 1 Capsule beforebedtime. 10/17/2024 Losartan Potassium 50 MG Oral Tablet (Cozaar) TAKE 1 TABLET BY MOUTH IN THE MORNING 10/17/2024 traZODone HCl 50 MG Oral Tablet (Desyrel) TAKE 1 TABLET BY MOUTH AT BEDTIME 10/16/2024 Bedtime Yflgbsoazub-Sisxpqgtm-Wzcvzw 100-62.5-25 MCG/ACT Aerosol Powder Breath Activated (Trelegy Ellipta) Inhale 1 Puff by mouth in the morning. 10/17/2024 Omeprazole 20 MG Oral Capsule Delayed Release (PriLOSEC) Take 1 capsule by mouth twice daily 10/17/2024 Folic Acid 1 MG Oral Tablet Take 1 Tablet by mouth in the morning. 10/17/2024 Dulera 200-5 MCG/ACT Inhalation Aerosol (Mometasone-Formoterol) Inhale 2 Puffs by mouth in the morning and 2 Puffs before bedtime. 10/17/2024 FLUoxetine HCl 20 MG Oral Capsule (PROzac) Take 1 Capsule by mouth in the morning. Add to 40mg dosefor total daily dose 60mg.. 10/17/2024 DULoxetine HCl 60 MG Oral Capsule Delayed Release Particles (Cymbalta) TAKE 1 CAPSULE BY MOUTH ONCEDAILY IN THE MORNING DO NOT CUT, CRUSH, OR CHEW CAPSULE 10/17/2024 Buprenorphine 10 MCG/HR Transdermal Patch Weekly (Butrans) Place 1 Patch over 7 days topically on the skin once a week. Do not start before September 24, 2024. Patient not taking: Reported on 10/17/2024 Not Taking Ciprofloxacin HCl 500 MG Oral Tablet (Cipro) Take 1 Tablet by mouth in the morning and 1 Tablet before bedtime. Do all this for 5 days. metroNIDAZOLE 500 MG Oral Tablet (Flagyl) Take 1 Tablet by mouth in the morning and 1 Tablet beforebedtime. Do all this for 5 days. Doxycycline Hyclate 100 MG Oral Capsule Take 1 Capsule by mouth in the morning and 1 Capsule beforebedtime. Do all this for 7 days. Take for 7 days. Albuterol Sulfate HFA 108 (90 Base) MCG/ACT Inhalation Aerosol Solution INHALE 2 PUFFS BY MOUTH EVERY 4 HOURS NEEDED FOR WHEEZING Over 30 Days Albuterol Sulfate (2.5 MG/3ML) 0.083% Inhalation Nebulization Solution (Proventil) Inhale 1 Vial via nebulizer every 6 hours as needed for Wheezing. J45.40 J44.9 Over 30 Days Acetaminophen 500 MG Oral Tablet (Tylenol) Take 2 Tablets by mouth every 6 hours as needed. Compressor Nebulizer Inhale via nebulizer. Use as directed. Physical Exam: Mental Status Examination: alert and [...] comparison to other patients Omid Snell MD 10/23/2024 documented in this encounter Procedure Notes * Myesha Cavanaugh MD - 10/23/2024 8:29 AM ESTAssociated Order(s): UPPER GI ENDOSCOPY [facility] Patient Name: Poppy Adhikari Procedure Date: 10/23/2024 8:29 AM Date of : 1970 Admit Type: Outpatient Note Status: Finalized Date of : 1970 Admit Type: Outpatient Age: 54 Room: [facility] Gender: Female Note Status: Finalized Procedure: Upper GI endoscopy Indications: Stent removal Providers: Omid Snell MD (Doctor), Toan Lind [...] pressure, pulse, and oxygen saturations were monitored continuously.The upper GI endoscopy was accomplished without difficulty. The patient tolerated the procedure well. The GIF-[id number] Endoscope([id number]) was introduced through the mouth, and advanced to the second part of duodenum. Findings & Specimens: A previously placed cystgastrostomy stent was found in the gastric body. The cavity is collapsed and the wall is pink and healthy. Stent removal was accomplished with a rat-toothed forceps. Impression: - Pre-existing cystgastrostomy Axios stent, removed. Recommendation: - Discharge patient to home. - Return to referring physician. Omid Snell MD 10/23/2024 9:25:29 AM This report has been signed electronically. documented in this encounter Nursing Notes * Eder Diaz RN - 10/23/2024 9:38 AM EST Patient transferred to post endo s/p egd. Patient awake. Respirations are even and unlabored on room air. NSR in the 80s on the monitor. Abdomen soft and non distended. Vital signs stable. Patient is alert, pain free and tolerating po fluids prior to discharge. Patient has been visited by Dr. Snell. Patient has received and demonstrates understanding of discharge instructions. Patient ambulated to private auto accompanied by endo staff. * Jordi Lind RN - 10/23/2024 9:24 AM EST See anesthesia record for medication administered during procedure. Jordi Lind RN Pre cleaning of scope at the bedside started by resident care technician. * Jyoti Mcdonald RN - 10/23/2024 8:48 AM EST The following pt discharge instructions reviewed with [...] Description 10/24/2024 9:30 AM EST Telemedicine Pharmacy, [facility] [address] [place] [address] [facility] [address] [place] [address] 11/13/2024 3:30 PM EST Office Visit Orthopaedics [facility] [address] [place] [phone] Darrin Celestin MD [address] [place] [phone] 03/26/2025 3:00 PM EDT Laboratory Laboratory, [address] [place] [address] [facility] [address] [place] [address] 03/31/2025 3:20 PM EDT Office Visit Family Practice, [address] [place] [address] Myesha Cavanaugh MD [address] [place] [address] Scheduled Procedures Name Priority Associated [...] 01/17/2023, 05/0 05/2023, 06/27/2013 COVID-19 Vaccine ( - season) 2024 Influenza Vaccine (FLU shot) (#1) 2024 07/07/2017, 06/20/2013 GFR 12/30/2024 12/31/2023, 04/2 , 11/28/2023, Additional history exists HIV Screening 03/25/2025 [...] this encounter Medical Devices Implanted Type Area Laborer Ammunition Assembly Device Identifier Shelf Expiration Date Model / Serial / Lot Vitoss Bimodal Foam Pack 10cc - [id number] Implanted:Qty : 2 on 10/11/2017 by Rosendo Nathan, DO at [facility] N/A: Spine Lumbar SARAH : SPINE 03/08/2019 / / [id number] Vitoss Bimodal Foam Pack 10cc - [id number] Implanted:Qty : 1 on 10/11/2017 by Rosendo Nathan, DO at [facility] N/A: Spine Lumbar SARAH : SPINE 02/05/2019 / / [id number] Screw Audie Bina 3 Ti Set - [id number] Implanted:Qty : 4 on 10/11/2017 by Rosendo Nathan DO at [facility] N/A: Spine Lumbar SARAH : SPINE [id number] / / 6.5 X 50 Mm Serrate Screws Implanted:Qty : 2 on 10/11/2017 by Rosendo Nathan, DO at [facility] N/A: Spine Lumbar SARAH : SPINE [id number] / / 6.5 X 45 Mm Serrate Screw Implanted:Qty : 2 on 10/11/2017 by Rosendo Nathan, DO at [facility] N/A: Spine Lumbar SARAH : SPINE [id number] / / 9 X 23x 6 - 9mm Pl Implanted:Qty : 1 on 10/11/2017 by Rosendo Nathan, DO at [facility] N/A: Spine Lumbar SARAH : SPINE [id number] / / Shashank Bina 3 Ti 6x40mm - [id number] Implanted:Qty : 1 on 10/11/2017 by Rosendo Nathan, DO at [facility] N/A: Spine Lumbar SARAH : SPINE [id number] / / Shashank Bina 3 Ti 6x45mm - [id number] Implanted:Qty : 1 on 10/11/2017 by Rosendo Nathan, DO at [facility] N/A: Spine Lumbar SARAH : SPINE [id number] / / Stent Axios [id number] - [id number] Implanted:Qty : 1 on 09/18/2024 by Omid Snell MD at [facility] [employer] : ENDOSCOPY [id number] 05/27/2026 [id number] / / [id number] documented as of this encounter Procedures Procedure Name Priority Date/Time Associated Diagnosis Comments UPPER GI ENDOSCOPY 10/23/2024 8: 29 AM EST documented in this encounter Results * UPPER GI ENDOSCOPY (10/23/2024 8:29 AM EST) 10/23/2024 8:29 AM EST Narrative Procedure Note Myesha Cavanaugh MD - 10/23/2024 8:29 AM EST [facility] Patient Name: Poppy Adhikari Procedure Date: 10/23/2024 8:29 AM Date of : 1970 Admit Type: Outpatient Note Status:Finalized Date of : 1970 Admit Type: Outpatient Age: 54 Room: [facility] Gender: Female Note Status: Finalized Procedure: Upper GI endoscopy Indications: Stent removal Providers: Omid Snell MD (Doctor), Toan Lind [...] bloodpressure, pulse, and oxygen saturations were monitored continuously.The upper GI endoscopywas accomplished without difficulty. The patient tolerated the procedurewell. The GIF-H180J Endoscope([id number]) was introduced through themouth, and advanced to the second part of duodenum. Findings & Specimens: A previously placed cystgastrostomy stent was found in the gastricbody. The cavity is collapsed and the wall is pink and healthy. Stent removal was accomplished with arat-toothed forceps. Impression: - Pre-existing cystgastrostomy Axios stent,removed. Recommendation: - Discharge patient to home. - Return to referring physician. Omid Snell MD 10/23/2024 9:25:29 AM This report has been signed electronically. us Myesha Cavanaugh MD GASTRO UPPER [facility] l Result documented in this encounter Administered Medications Inactive Administered Medications - up to 3 most recent administrations Medication Order MAR Action Action Date Dose Rate Site Isolyte-S pH 7.4 infusion Intravenous, at 100 mL/hr, Plasma-LYTE 148, isolyte-S, and isolyte-S pH 7.4 are considered equivalent - including for MAR barcode scanning., CONTINUOUS, Starting on Mon10/23/24 at 0900, Until Mon10/23/24 at 1356, Pre-Op Restarted 10/23/2024 9:23 AM EST Continue from Pre-Op 10/23/2024 9:11 AM EST 100 mL/hr New Bag 10/23/2024 8:54 AM EST 100 mL/hr documented in this encounter Active and Recently Administered Medications Times are shown in EST. Continuous Medication Order 10/21/2024 10/22/2024 10/23/2024 Isolyte-S pH 7.4 infusion Intravenous, at 100 mL/hr, Plasma-LYTE 148, isolyte-S, and isolyte-S pH 7.4 are considered equivalent - including for MAR barcode scanning., CONTINUOUS, Starting on Mon10/23/24 at 0900, Until Mon10/23/24 at 1356, Pre-Op 0854 (New Bag - Prov ider: Jyoti Mcdonald RN)0911 (Continue from Pre-Op - Provider: Betsy Metzger CRNA)0922 (Paused - Provider: Betsy Metzger CRNA - Comment: Switch to gravity)0923 (Restarted - Provider: Betsy Metzger CRNA) documented in this encounter Advance Directives * Full Code (Latest Code Status on File) Date Activated Date Inactivated Comments 10/11/2017 9:23 AM 10/13/2017 10:36 PM This order r eflects the patients wishes and were consensually agreed upon. Care Teams Wharf Labourer Relationship Specialty Start Date End Date Myesha Cavanaugh MD [address] [place] [address] PCP - General Family Medicine 09/18/24 documented as of this encounter
--- OUTSIDE RECORDS SUMMARY | 2024-11-07 04:06 | External Medical Summary | Summary of Care ---
Author Name Unknown Organization [facility] Address [address] [facility] [place] [address] Phone [phone] Care Team Providers Care [employer] Name Role Phone Олег Cavanaugh MD Primary Care Provid er Reason for Visit * Reason Comments eRx-Medication Refill Encounter Details Date Type Department Care Team (Late st Contact Info) Description 10/10/2024 Refill [facility] [address] [facility] [place] [address] Олег Cavanaugh MD [address] [facility] [place], [place] [id number] Major depressive disorder with single episode, in full remission (HCC) Allergies Active Allergy Reactions Criticality Noted Date Comments Amoxicillin 01/05/2017 thrush Latex 06/20/2013 Hives, rash and swelling Lisinopril 06/02/2023 COUGH Nickel Rash 12/03/2020 documented as of this encounter (statuses as of 10/11/2024) Medications Compressor NebulizerIndica tions:Moderate persistent asthma without complication,CO PD, 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 Use as directed. 1 Each 1 05/26/20 Active Acetaminophen 500 MG Oral Tablet (Tylenol) Take 2 Tablets by mouth every 6 hours as needed. Active DULoxetine HCl 60 MG Oral Capsule Delayed Release Particles (Cymbalta)Indic ations:Fibromya lgia,Major depressive disorder with single episode, in full remission (HCC) TAKE 1 CAPSULE BY MOUTH ONCE DAILY IN THE MORNING DO NOT CUT, CRUSH, OR CHEW CAPSULE 90 Capsule 3 12/18/19 24 Active FLUoxetine HCl 20 MG Oral Capsule (PROzac)Indicat ions:Anxiety,Hi story of alcohol use disorder,Curren t severe episode of major depressive disorder without psychotic features, unspecified whether recurrent (HCC),Major depressive disorder with single episode, in full remission (HCC) Take 1 Capsule by mouth in the morning. Add to 40mg dose for total daily dose 60mg.. 90 Capsule 1 03/25/20 24 Active Dulera 200-5 MCG/ACT Inhalation Aerosol (Mometasone-For moterol)Indicat ions:COPD, 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) Inhale 2 Puffs by mouth in the morning and 2 Puffs before bedtime. 13 g 11 04/01/20 24 Active Albuterol Sulfate (2.5 MG/3ML) 0.083% Inhalation Nebulization Solution (Proventil)Yun cations:COPD, 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),Moderate persistent asthma without complication Inhale 1 Vial via nebulizer every 6 hours as needed for Wheezing. J45.40 J44.9 360 mL 11 04/01/20 24 Active EQ All Day Allergy Relief 10 MG Oral Tablet (Loratadine) Take 1 tablet by mouth once daily 90 Tablet 1 04/15/20 24 Active Albuterol Sulfate HFA 108 (90 Base) MCG/ACT Inhalation Aerosol SolutionIndicat ions:Exacerbati on of asthma, unspecified asthma severity, unspecified whether persistent INHALE 2 PUFFS BY MOUTH EVERY 4 HOURS NEEDED FOR WHEEZING 54 g 2 04/18/20 24 Active Folic Acid 1 MG Oral TabletIndicatio ns:Anemia due to folic acid deficiency, unspecified deficiency type Take 1 Tablet by mouth in the morning. 90 Tablet 3 05/28/20 24 Active Omeprazole 20 MG Oral Capsule Delayed Release (PriLOSEC)Indic ations:Epigastr ic pain,Gallbladde r sludge,Gastroes ophageal reflux disease without esophagitis Take 1 capsule by mouth twice daily 60 Capsule 5 06/03/20 24 Active Fluticasone-Ume clidin-Vilant 100-62.5-25 MCG/ACT Aerosol Powder Breath Activated (Trelegy Ellipta)Indicat ions:COPD, 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) Inhale 1 Puff by mouth in the morning. 60 Blister Dosing Unit 5 07/01/20 24 Active traZODone HCl 50 MG Oral Tablet (Desyrel)Indica tions:Major depressive disorder with single episode, in full remission (HCC) TAKE 1 TABLET BY MOUTH AT BEDTIME 90 Tablet 3 07/02/20 24 Active Losartan Potassium 50 MG Oral Tablet (Cozaar) TAKE 1 TABLET BY MOUTH IN THE MORNING 90 Tablet 1 08/01/20 24 Active Buprenorphine 10 MCG/HR Transdermal Patch Weekly (Butrans)Indica tions:Spinal stenosis of lumbar region with neurogenic claudication,Sa croiliac joint pain,Lumbar radiculitis,His tory of lumbar fusion Place 1 Patch over 7 days topically on the skin once a week. Do not start before September 24, 2024. 4 Patch 5 09/24/19 25 Active Additional Information Patient not taking.Reported on 10/09/2024 Montelukast Sodium 10 MG Oral Tablet (Singulair)Yun cations:Chronic cough TAKE 1 TABLET BY MOUTH AT BEDTIME 90 Tablet 3 09/30/19 25 Active hydrOXYzine HCl 50 MG Oral TabletIndicatio ns:Anxiety,Prur itus Take 1 Tablet by mouth every 6 hours as needed for Itching or Anxiety. 60 Tablet 5 09/30/19 25 Active Pregabalin 150 MG Oral Capsule (Lyrica)Indicat ions:Spinal stenosis of lumbar region with neurogenic claudication Take 1 Capsule by mouth in the morning and 1 Capsule before bedtime. 60 Capsule 2 09/30/19 25 Active HYDROcodone-Ted taminophen 7.5-325 MG Oral TabletIndicatio ns:Spinal stenosis of lumbar region with neurogenic claudication,Ch ronic left shoulder pain Take 1 Tablet by mouth every 8 hours as needed for Pain, Severe. 15 Tablet 09/30/19 25 Active Additional Information Patient not taking.Reported on 10/09/2024 FLUoxetine HCl 40 MG Oral Capsule (PROzac)Indicat ions:Major depressive disorder with single episode, in full remission (HCC) Take 1 capsule by mouth once daily in the morning 90 Capsule 1 10/11/19 25 Active FLUoxetine HCl 40 MG Oral Capsule (PROzac)Indicat ions:Major depressive disorder with single episode, in full remission (HCC) Take 1 capsule by mouth in the morning 90 Capsule 1 04/18/20 24 025 Discontinued documented as of this encounter (statuses as of 10/11/2024) Active Problems Problem Noted Date Diagnosed Date [...] as of this encounter (statuses as of 10/11/2024) Resolved Problems Problem Noted Date Diagnosed Date Resolved Date Food insecurity 04/19/2021 08/26/2021 Overview: Per [facility] Protocol Asthma exacerbation 03/30/2015 07/07/20 17 Moderate persistent asthma 11/09/2014 0 03/30/2015 Overview (11/13/2014): PFT Pneumonitis 07/24/2014 01/06/2022 Asthma exacerbation 07/24/2014 03/30/20 15 documented as of this encounter (statuses as of 10/11/2024) Immunizations Name Administration Dates Next Due PPD [...] ages 0-17 years) Not on file 05/16/2024 Education Answer Date Recorded What is [...] 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 - 10/11/2024 8:24 AM ESTSigned Prescriptions: Disp Refills FLUoxetine HCl 40 MG Oral Capsule (PROzac) 90 Cap*1 Sig: Take 1 capsule by mouth once daily in the morningAuthorizing Provider: ОЛЕГ CAVANAUGH User: EDWARD CROWE documented in this encounter Plan of Treatment Upcoming Encounters Date Type Department Care Team (Latest Contact Info) Description 5 10:30 AM EST Imaging Radiology [address] [place] [phone] 5 9:00 AM EST Hospital Encounter ENDO [facility], Endoscopy Room [facility] [address] [place] [address] Omid Snell MD [address] [place] [address] 5 9:00 AM EST - 5 9:15 AM EST Surgery ENDO [facility], Endoscopy Room [facility] [address] [place] [address] Omid Snell MD [address] [place] [address] ESOPHAGOGASTRODUODENOSCOPY (EGD), FLEXIBLE, TRANSORAL, DIAGNOSTIC 5 12:30 PM EST Telemedicine Psychology [facility] [address] [place] [address] Julia Porras, DELIVERY ASSOCIATE [address] [place] [address] 5 3:30 PM EST Office Visit Orthopaedics [facility] [address] [place] [phone] Darrin Celestin MD [address] [place] [phone] 5 3:30 PM EST Telemedicine Pharmacy, [facility] [address] [place] [address] [facility] [address] [place] [phone] 5 3:00 PM EDT Laboratory Laboratory, [place] [facility] [facility] [address] [facility] [place] [phone] [facility] [address] [place] [address] 5 3:20 PM EDT Office Visit Family [facility], [place] [address] [place] [address] [place] [phone] Олег Cavanaugh MD [address] [place] [address] Scheduled Procedures Name Priority Associated Diagnoses Date/Ti me ESOPHAGOGASTRODUODENOSCOPY ( EGD), FLEXIBLE, TRANSORAL, DIAGNOSTIC Pseudocyst of pancreas 10/23/2024 9:00 AM EST ESOPHAGOGASTRODUODENOSCOPY ( EGD), FLEXIBLE, TRANSORAL, DIAGNOSTIC Recall [...] 01/18/2024 01/17/2023, 05/0 05/2023, 06/27/2013 COVID-19 Vaccine (1 - season) 2024 Influenza Vaccine (FLU shot) (#1) 2024 07/07/2017, 06/20/2013 GFR 12/30/2024 12/31/2023, 12/11, 11/28/2023, Additional history exists HIV Screening 03/25/2025 Postponed from 1984 (Patient Declined After Education) Zoster Vaccines (1 of 2) 03/25/2025 Pos tponed from 2019 (Patient Declined After Education) O2 ASSESSMENT COMPLETED IN PAST YEAR FOR COPD 09/18/2025 09/18/2024 Depression Monitoring 10/09/2025 10/09/2024 Albumin/Creatinine Ratio 09/01/2026 09/01/2023 Lipid Panel 05/11/2027 05/11/2022 Colonoscopy 09/27/2033 09/27/2023 Colorectal Cancer Screening 09/27/2033 HPV (Gardasil) Vaccine Aged Out No lo nger eligible based on patient's age to complete this topic MENINGOCOCCAL (MENACTRA/MENVEO) Aged Out No longer eligible based on patient's age to complete this topic documented as of this encounter Medical Devices Implanted Type Area Can Operator Device Identifier Shelf Expiration Date Model / Serial / Lot Vitoss Bimodal Foam Pack 10cc - [id number] Implanted:Qty : 2 on 10/11/2017 by Rosendo Nathan, DO [facility] N/A: Spine Lumbar SARAH : SPINE 03/08/[id number] / / [id number] Vitoss Bimodal Foam Pack 10cc - [id number] Implanted:Qty : 1 on 10/11/2017 by Rosendo Nathan, DO at [facility] N/A: Spine Lumbar SARAH : SPINE 02/05/2019 [id number] / / [id number] Screw Audie Bina 3 Ti Set - [id number] Implanted:Qty : 4 on 10/11/2017 by Rosendo Nathan DO at [facility] N/A: Spine Lumbar SARAH : SPINE [id number] / / 6.5 X 50 Mm Serrate Screws Implanted:Qty : 2 on 10/11/2017 by Rosendo Nathan DO at [facility] N/A: Spine Lumbar SARAH : SPINE [id number] / / 6.5 X 45 Mm Serrate Screw Implanted:Qty : 2 on 10/11/2017 by Rosendo Nathan DO at [facility] N/A: Spine Lumbar SARAH : SPINE [id number] / / 9 X 23x 6 - 9mm Pl Implanted:Qty : 1 on 10/11/2017 by Rosendo Nathan DO at [facility] N/A: Spine Lumbar SARAH : SPINE [id number] / / Shashank Bina 3 Ti 6x40mm - [id number] Implanted:Qty : 1 on 10/11/2017 by Rosendo Nathan DO at [facility] N/A: Spine Lumbar SARAH : SPINE [id number] / / Shashank Bina 3 Ti 6x45mm - [id number] Implanted:Qty : 1 on 10/11/2017 by Rosendo Nathan DO at [facility] N/A: Spine Lumbar SARAH : SPINE [id number] / / Stent Axios 75bbx27th - [id number] Implanted:Qty : 1 on 09/18/2024 by Omid Snell MD at [facility]OSCOPY [id number] 05/27/2026 [id number] / / [id number] documented as of this encounter Visit Diagnoses Diagnosis Major depressive disorder with single episode, in full remission (HCC) Pseudocyst of pancreas Cyst and pseudocyst of pancreas documented in this encounter Advance Directives * Full Code (Latest Code Status on File) Date Activated Date Inactivated Comments 10/11/2017 9:23 AM 10/13/2017 10:36 PM This order r eflects the patients wishes and were consensually agreed upon. Care Teams [employer] Relationship Specialty Start Date End Date Олег Cavanaugh MD [address] [place] [address] PCP - General Family Medicine 09/18/24 documented as of this encounter
--- OUTSIDE RECORDS SUMMARY | 2024-11-07 04:06 | External Medical Summary | Summary of Care ---
Author Name Unknown Organization [facility] Address [address] [facility] [place] [address] Phone [phone] Care Team Providers Care [place] Name Role Phone Олег Cavanaugh MD Primary Care Provid er Reason for Visit * Reason Onset Date Comments Pre Cert/Prior Auth 10/01/2024 Encounter Details Date Type Department Care Team (Late st Contact Info) Description 10/01/2024 [facility] [place] [address] [facility] [place] [phone] Олег Cavanaugh MD 226 [facility] [place] [address] Pre Cert/Prior Auth Allergies Active Allergy Reactions Criticality Noted Date Comments Amoxicillin 01/05/2017 thrush Latex 06/20/2013 Hives, rash and swelling Lisinopril 06/02/2023 COUGH Nickel Rash 12/03/2020 documented as of this encounter (statuses as of 10/07/2024) Medications Compressor NebulizerIndicati ons:Moderate persistent asthma without complication,COPD [...] 4 Active Dulera 200-5 MCG/ACT Inhalation Aerosol (Mometasone-Formo [...] J45.40 J44.9 360 mL 11 4 Active EQ All Day Allergy Relief 10 MG Oral Tablet (Loratadine) Take 1 tablet by mouth once daily 90 Tablet 1 4 Active FLUoxetine HCl 40 MG Oral Capsule (PROzac)Indicatio ns:Major depressive disorder with single episode, in full remission (HCC) Take 1 capsule by mouth in the morning 90 Capsule 1 4 Active Albuterol Sulfate HFA 108 (90 Base) MCG/ACT Inhalation Aerosol SolutionIndicatio ns:Exacerbation of asthma, unspecified asthma severity, unspecified whether persistent INHALE 2 PUFFS BY MOUTH EVERY 4 HOURS NEEDED FOR WHEEZING 54 g 2 4 Active Folic Acid 1 MG Oral TabletIndications :Anemia due to folic acid deficiency, unspecified deficiency type Take 1 Tablet by mouth in the morning. 90 Tablet 3 4 Active Omeprazole 20 MG Oral Capsule Delayed Release (PriLOSEC)Indicat ions:Epigastric pain,Gallbladder sludge,Gastroesop hageal reflux disease without esophagitis Take 1 capsule by mouth twice daily 60 Capsule 5 4 Active Fluticasone-Umecl idin-Vilant 100-62.5-25 MCG/ACT Aerosol Powder Breath Activated (Trelegy Ellipta)Indicatio ns:COPD, 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) Inhale 1 Puff by mouth [...] Active Buprenorphine 10 MCG/HR Transdermal Patch Weekly (Butrans)Indicati ons:Spinal stenosis of lumbar region with neurogenic claudication,Sacr oiliac joint pain,Lumbar radiculitis,Histo ry of lumbar fusion Place 1 Patch over 7 days topically on the skin once a week. Do not start before September 24, 2024. 4 Patch 5 5 Active Montelukast Sodium 10 MG Oral Tablet (Singulair)Indica tions:Chronic cough TAKE 1 TABLET BY MOUTH AT BEDTIME 90 Tablet 3 5 Active hydrOXYzine HCl 50 MG Oral TabletIndications :Anxiety,Pruritus Take 1 Tablet by mouth every 6 hours as needed for Itching or Anxiety. 60 Tablet 5 5 Active Pregabalin 150 MG Oral Capsule (Lyrica)Indicatio ns:Spinal stenosis of lumbar region with neurogenic claudication Take 1 Capsule by mouth in the morning and 1 Capsule before bedtime. 60 Capsule 2 5 Active HYDROcodone-Aceta minophen 7.5-325 MG Oral TabletIndications :Spinal stenosis of lumbar region with neurogenic claudication,Leather Staker navneet left shoulder pain Take 1 Tablet by mouth every 8 hours as needed for Pain, Severe. 15 Tablet 5 Active documented as of this encounter (statuses as of 10/07/2024) Active Problems Problem Noted Date Diagnosed Date [...] as of this encounter (statuses as of 10/07/2024) Resolved Problems Problem Noted Date Diagnosed Date Resolved Date Food insecurity 04/19/2021 08/26/2021 Overview: Per [facility] Protocol Asthma exacerbation 03/30/2015 07/07/20 17 Moderate persistent asthma 11/09/2014 0 03/30/2015 Overview (11/13/2014): PFT Pneumonitis 07/24/2014 01/06/2022 Asthma exacerbation 07/24/2014 03/30/20 15 documented as of this encounter (statuses as of 10/07/2024) Immunizations Name Administration Dates Next Due PPD [...] Answer Date Recorded PHQ Adult Total Score 1 08/29/2024 Hunger Vital Sign Answer Date Recorded Within [...] ages 0-17 years) Not on file 05/16/2024 Comments No Sex and Gender Information Value Date Recorded Sex Assigned at Female 11/27/2018 11:48 AM EDT Legal Sex Female 6:59 AM EST Gender Identity Female 11/27/2018 11:48 AM EDT Sexual Orientation Not on file 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 Urine orders pended please review and sign if agreeable. * Telephone Encounter - Олег Cavanaugh MD - 10/02/2024 1:32 PM EST yes * Telephone Encounter - Salma Barksdale LPN - 10/02/2024 12:04 PM EST Okay for medication to be filled as brand? * Telephone Encounter - Tonya Marcus OSA - 10/01/2024 3:45 PM EST Patient is calling in about pre auth on patch, stated that patch is ready at [facility] but needs to be okay-ed by the doctor. Looking at the notes, and let the patient know that it is the insurance. Please let the patient know when it has been approved. Thank you! * Telephone Encounter - Dorene Rascon PHARM Tech - 10/01/2024 2:41 PM EST [facility] called asking if the Buprenorphine patch can be filled for brand as that is preferred. Please call Yady at [facility] [phone] Please advise Thank you, Dorene Rascon, [facility] Tosser II [facility] 10/01/2024,2:43 PM * Telephone Encounter - Sydnie Craft LPN - 10/01/2024 1:59 PM EST Prior auth submitted for Buprenorphine patches through [facility], access hubbard is [id number] * Telephone Encounter - Blaire Venegas LPN - 10/01/2024 10:24 AM EST Prior auth was started with [facility] for Hydrocodone-acetaminophen 7.5 -325 mg Hubbard # [id number] * Telephone Encounter - Jeison Singletary CPhT - 10/01/2024 9:40 AM EST This is a new PA request. Upon review of this prior authorization request, I verified [facility] is not delegated to complete prior authorizations for this medication. Forwarding request to appropriate location. Thank you, Spencer Singletary ([facility]) [facility] III [facility] 10/01/2024, 9:40 AM * Telephone Encounter - Staci Lopez PHARM Tech - 10/01/2024 9:36 AM EST Pharmacy calling to inform doctor that the patient's insurance will not pay for this medication without a completed prior authorization. Did confirm this information with the pharmacy. Pt's current insurance information is as follows: Patient name: Poppy Adhikari ID number: [id number] BIN number: [id number] PCN number: [id number] Group number: Subscriber name: Poppy Adhikari Primary or Secondary Insurance:Primary Medication: HYDROcodone-Acetaminophen 7.5-325 MG Oral Tablet Reason for Request: N/A Pharmacy and phone number: [facility] [address] [place] [address] Rx plan and phone number: [employer] Medicaid [id number] Is this a new medication for the patient? Yes What alternative medications does the pharmacy have in stock?: N/A Thank you, Staci Lopez, Truck Driving Instructor Truck Driving Instructor I [facility] 10/01/2024,9:37 AM documented in this encounter Plan of Treatment Upcoming Encounters Date Type Department Care Team (Latest Contact Info) Description 1:00 PM EST Telemedicine Psychology [facility] [place] [address] [place] [phone] Niru Zee LCSW [address] [place] [address] 5 3:00 PM EST Office Visit Orthopaedics [facility] [address] [place] [phone] Darrin Celestin MD [address] [place] [address] 5 10:30 AM EST Imaging Radiology [facility] [address] [place] [address] 5 9:00 AM EST Hospital Encounter ENDO [facility], Endoscopy Room [facility] [address] [place] [phone] Omid Snell MD [address] [place] [address] 5 9:00 AM EST - 5 9:15 AM EST Surgery [facility]O [facility], Endoscopy Room [facility] [address] [place] [place] [phone] Omid Snell MD [address] [place] [address] ESOPHAGOGASTRODUODENOSCOPY (EGD), FLEXIBLE, TRANSORAL, DIAGNOSTIC 5 3:30 PM EST Telemedicine Pharmacy, [facility] [address] [place] [address] [facility] [place] [address] [place] [address] 5 3:00 PM EDT Laboratory Laboratory, [facility] [address] [place] [phone] [facility] [address] [place] [address] 5 3:20 PM EDT Office Visit Family Practice, [place] [address] [place] [address] Олег Cavanaugh MD [address] [place] [address] Scheduled Orders Name Type Priority Associated Diagnoses Orde r Schedule TOXICOLOGY, URINESCREEN W/ CONFIRMATION Lab Routine MEDICATION USE AGREEMENT Expected: 10/08/2024 (Approximate), Expires: 10/02/2025 Scheduled Procedures Name Priority Associated Diagnoses Date/Ti id ESOPHAGOGASTRODUODENOSCOPY ( EGD), FLEXIBLE, TRANSORAL, DIAGNOSTIC Pseudocyst [...] 07/16/2013 DISCUSS TOBACCO CESSATION (REFER TO SMARTSET #3081) 01/06/2023 01/06/2022, 09/23/2021 DTap/Tdap Vaccines (2 - [...] 2019 (Patient Declined After Education) Depression Monitoring 08/29/2025 08/29/2024 O2 ASSESSMENT COMPLETED IN PAST YEAR FOR COPD 09/18/2025 09/18/2024 Albumin/Creatinine Ratio 09/01/2026 09/01/2023 Lipid Panel 05/11/2027 05/11/2022 Colonoscopy 09/27/2033 09/27/2023 Colorectal Cancer Screening 09/27/2033 HPV (Gardasil) Vaccine Aged Out No lo nger eligible based on patient's age to complete this topic MENINGOCOCCAL (MENACTRA/MENVEO) Aged Out No longer eligible based on patient's age to complete this topic documented as of this encounter Medical Devices Implanted Type Area Data Analyst Etl Developer Device Identifier Shelf Expiration Date Model / Serial / Lot Vitoss Bimodal Foam Pack 10cc - [id number] Implanted:Qty : 2 on 10/11/2017 by Rosendo Nathan, DO at [facility] N/A: Spine Lumbar SARAH : SPINE 03/08/2019 / / [id number] Vitoss Bimodal Foam Pack 10cc - [id number] Implanted:Qty : 1 on 10/11/2017 by Rosendo Nathan DO at [facility] N/A: Spine Lumbar SARAH : SPINE 02/05/2019 / / [id number] Screw Audie Bina 3 Ti Set - [id number] Implanted:Qty : 4 on 10/11/2017 by Rosendo Nathan DO at [facility] N/A: Spine Lumbar SARAH : SPINE [id number] / / 6.5 X 50 Mm Serrate Screws Implanted:Qty : 2 on 10/11/2017 by Rosendo Nathan DO at [facility] N/A: Spine Lumbar SARAH : SPINE [id number] / / 6.5 X 45 Mm Serrate Screw Implanted:Qty : 2 on 10/11/2017 by Rosendo Nathan DO at [facility] N/A: Spine Lumbar SARAH : SPINE [id number] / / 9 X 23x 6 - 9mm Pl Implanted:Qty : 1 on 10/11/2017 by Rosendo Nathan DO at [facility] N/A: Spine Lumbar SARAH : SPINE [id number] / / Shashank Bina 3 Ti 6x40mm - [id number] Implanted:Qty : 1 on 10/11/2017 by Rosendo Nathan DO at [facility] N/A: Spine Lumbar SARAH : SPINE [id number] / / Shashank Bina 3 Ti 6x45mm - [id number] Implanted:Qty : 1 on 10/11/2017 by Rosendo Nathan DO at [facility] N/A: Spine Lumbar SARAH : SPINE [id number] / / Stent Axios [id number] - [id number] Implanted:Qty : 1 on 09/18/2024 by Omid Snell MD at [facility] : ENDOSCOPY [id number] 05/27/2026 [id number] / / [id number] documented as of this encounter Visit Diagnoses Diagnosis MEDICATION USE AGREEMENT- Primary Pseudocyst of pancreas Cyst and pseudocyst of pancreas documented in this encounter Advance Directives * Full Code (Latest Code Status on File) Date Activated Date Inactivated Comments 10/11/2017 9:23 AM 10/13/2017 10:36 PM This order r eflects the patients wishes and were consensually agreed upon. Care Teams [place] Relationship Specialty Start Date End Date Олег Cavanaugh MD [address] [place] [address] PCP - General Family Medicine 09/18/24 documented as of this encounter
--- OUTSIDE RECORDS SUMMARY | 2024-11-07 04:06 | External Medical Summary | Summary of Care ---
Author Name Unknown Organization [facility] Address [address] [facility] [place] [address] Phone [phone] Care Team Providers Care Lobster Catcher Name Role Phone Myesha Cavanaugh MD Primary Care Provid er Reason for Visit * Reason Onset Date Comments Pre Cert/Prior Auth 10/01/2024 Encounter Details Date Type Department Care Team (Late st Contact Info) Description 10/01/2024 [facility] [place] [address] [facility] [place] [address] Myesha Cavanaugh MD [address] [facility] [place] [address] Pre Cert/Prior Auth Allergies Active Allergy Reactions Criticality Noted Date Comments Amoxicillin 01/05/2017 thrush Latex 06/20/2013 Hives, rash and swelling Lisinopril 06/02/2023 COUGH Nickel Rash 12/03/2020 documented as of this encounter (statuses as of 10/02/2024) Medications Compressor NebulizerIndicati ons:Moderate persistent asthma without [...] :Spinal stenosis of lumbar region with neurogenic claudication,Medical Staff Credentialing Coordinator navneet left shoulder pain Take 1 Tablet by mouth every 8 hours as needed for Pain, Severe. 15 Tablet 5 Active documented as of this encounter (statuses as of 10/02/2024) Active Problems Problem Noted Date Diagnosed Date [...] as of this encounter (statuses as of 10/02/2024) Resolved Problems Problem Noted Date Diagnosed Date Resolved Date Food insecurity 04/19/2021 08/26/2021 Overview: Per [facility] Protocol Asthma exacerbation 03/30/2015 07/07/20 17 Moderate persistent asthma 11/09/2014 0 03/30/2015 Overview (11/13/2014): PFT Pneumonitis 07/24/2014 01/06/2022 Asthma exacerbation 07/24/2014 03/30/20 15 documented as of this encounter (statuses as of 10/02/2024) Immunizations Name Administration Dates Next Due PPD [...] 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 Urine orders pended please review and sign if agreeable. * Telephone Encounter - Myesha Cavanaugh MD - 10/02/2024 1:32 PM EST yes * Telephone Encounter - Salma Barksdale LPN - 10/02/2024 12:04 PM EST Okay for medication to be filled as brand? * Telephone Encounter - Tonya Marcus OSA - 10/01/2024 3:45 PM EST Patient is calling in about pre auth on patch, stated that patch is ready at [facility] but needs to be okay-ed by the doctor. Looking at the notes, and let the patient know that it is the insurance. Please let the patient know when it has been approved. Thank you! * Telephone Encounter - Dorene Rascon PHARM Tech - 10/01/2024 2:41 PM EST [facility] called asking if the Buprenorphine patch can be filled for brand as that is preferred. Please call Yady at [facility] [phone] Please advise Thank you, Dorene Rascon, [facility] Beef Trimmer II [facility]) 10/01/2024,2:43 PM * Telephone Encounter - Sydnie Craft LPN - 10/01/2024 1:59 PM EST Prior auth submitted for Buprenorphine patches through [facility], access hubbard is [id number] * Telephone Encounter - Blaire Venegas LPN - 10/01/2024 10:24 AM EST Prior auth was started with CMM's for Hydrocodone-acetaminophen 7.5 -325 mg Hubbard # [id number] * Telephone Encounter - Jeison Singletary CPhT - 10/01/2024 9:40 AM EST This is a new PA request. Upon review of this prior authorization request, I verified [facility] is not delegated to complete prior authorizations for this medication. Forwarding request to appropriate location. Thank you, Spencer Singletary ([facility]) Beef Trimmer III [facility] ([facility]) 10/01/2024, 9:40 AM * Telephone Encounter - Staci Lopez PHARM Tech - 10/01/2024 9:36 AM EST Pharmacy calling to inform doctor that the patient's insurance will not pay for this medication without a completed prior authorization. Did confirm this information with the pharmacy. Pt's current insurance information is as follows: Patient name: Poppy Adhikari ID number: [id number] BIN number: [id number] PCN number: [id number] Group number: Subscriber name: Poppy Adhikari Primary or Secondary Insurance:Primary Medication: HYDROcodone-Acetaminophen 7.5-325 MG Oral Tablet Reason for Request: N/A Pharmacy and phone number: [facility] [address] [place] [address] [facility] [phone] Rx plan and phone number: [facility] Medicaid [id number] Is this a new medication for the patient? Yes What alternative medications does the pharmacy have in stock?: N/A Thank you, Staci Lopez, Canvas Shop Laborer Canvas Shop Laborer I [facility] ([facility]) 10/01/2024,9:37 AM documented in this encounter Plan of Treatment Upcoming Encounters Date Type Department Care Team (Latest Contact Info) Description 5 1:00 PM EST Telemedicine Psychology [place] [address] [place] [address] Niru Zee, INSURANCE DEFENSE ATTORNEY [address] [place] [address] 5 3:00 PM EST Office Visit Orthopaedics [facility] [address] [place] [address] Darrin Celestin MD [address] [place] [address] 5 10:30 AM EST Imaging Radiology [address] [place] [address] 5 9:00 AM EST Hospital Encounter ENDO [facility], Endoscopy Room [facility] [address] [place] [address] Omid Snell MD [address] [place] [address] 5 9:00 AM EST - 5 9:30 AM EST Surgery ENDO [facility], Endoscopy Room [facility] [address] [place] [place] [address] Omid Snell MD [address] [place] [address] ESOPHAGOGASTRODUODENOSCOPY (EGD), FLEXIBLE, TRANSORAL, DIAGNOSTIC 5 3:30 PM EST Telemedicine Pharmacy, [facility] [address] [place] [place] [address] [facility] [address] [place] [place] [address] 5 3:00 PM EDT Laboratory Laboratory, Kendrick Veras [address] [place] [address] Lizzette [place] [address] [place] [address] 3:20 PM EDT [facility], Kendrick [place]ias [address] [place] [address] Myesha Cavanaugh MD [address] [place] [address] Scheduled Procedures Name Priority Associated Diagnoses Date/Ti [...] this encounter Medical Devices Implanted Type Area Coal Mill Operator Device Identifier Shelf Expiration Date Model / Serial / Lot Vitoss Bimodal Foam Pack 10cc - [id number] Implanted:Qty : 2 on 10/11/2017 by Rosendo Nathan DO at [facility] N/A: Spine Lumbar SARAH : SPINE 03/08/[id number] / / [id number] Vitoss Bimodal Foam Pack 10cc - [id number] Implanted:Qty : 1 on 10/11/2017 by Rosendo Nathan DO at [facility] N/A: Spine Lumbar SARAH : SPINE 02/05/[id number] / / [id number] Screw Audie Bina 3 Ti Set - [id number] Implanted:Qty : 4 on 10/11/2017 by Rosendo Nathan DO at [facility] N/A: Spine Lumbar SARAH : SPINE [id number] / / 6.5 X 50 Mm Serrate Screws Implanted:Qty : 2 on 10/11/2017 by Rosendo Nathan DO at [facility] N/A: Spine Lumbar SARAH : SPINE [id number] / / 6.5 X 45 Mm Serrate Screw Implanted:Qty : 2 on 10/11/2017 by Rosendo Nathan DO at [facility] N/A: Spine Lumbar SARAH : SPINE [id number] / / 9 X 23x 6 - 9mm Pl Implanted:Qty : 1 on 10/11/2017 by Rosendo Nathan, DO at [facility] N/A: Spine Lumbar SARAH : SPINE [id number] / / Shashank Bina 3 Ti 6x40mm - [id number] Implanted:Qty : 1 on 10/11/2017 by Rosendo Nathan, DO at [facility] N/A: Spine Lumbar SARAH : SPINE [id number] / / Shashank Bina 3 Ti 6x45mm - [id number] Implanted:Qty : 1 on 10/11/2017 by Rosendo Nathan, DO at [facility] N/A: Spine Lumbar SARAH : SPINE [id number] / / Stent Axios 21nyn94iw - [id number] Implanted:Qty : 1 on 09/18/2024 by Omid Snell MD at OR [facility] [employer] : ENDOSCOPY [id number] 05/27/2026 [id number] / / [id number] documented as of this encounter Advance Directives * Full Code (Latest Code Status on File) Date Activated Date Inactivated Comments 10/11/2017 9:23 AM 10/13/2017 10:36 PM This order r eflects the patients wishes and were consensually agreed upon. Care Teams Lobster Catcher Relationship Specialty Start Date End Date Myesha Cavanaugh MD [address] [place] [address] PCP - General Family Medicine 09/18/24 documented as of this encounter
--- OUTSIDE RECORDS SUMMARY | 2024-11-07 04:06 | External Medical Summary | Summary of Care ---
Author Name Unknown Organization [facility] Address [address] [facility] [place] [address] Phone [phone] Care Team Providers Care Emergency Room Clinician Name Role Phone Myesha Cavanaugh MD Primary Care Provid er Reason for Visit * Reason Onset Date Comments Pre Cert/Prior Auth 10/01/2024 Encounter Details Date Type Department Care Team (Late st Contact Info) Description 10/01/2024 [facility]phone [facility] [place] [address] [facility] [place] [address] Myesha Cavanaugh MD [address] 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 * Telephone Encounter - Tonya Marcus OSA - 10/01/2024 3:45 PM EST Patient is calling in about pre auth on patch, stated that patch is ready at [facility] but needs to be okay-ed by the doctor. Looking at the notes, and let the patient know that it is the insurance. Please let the patient know when it has been approved. Thank you! * Telephone Encounter - Dorene Rascon PHARM Tech - 10/01/2024 2:41 PM EST [facility] called asking if the Buprenorphine patch can be filled for brand as that is preferred. Please call Yady at [facility] [phone] Please advise Thank you, Dorene Rascon CPhT Production Solderer II [facility]) 10/01/2024,2:43 PM * Telephone Encounter - Sydnie Craft LPN - 10/01/2024 1:59 PM EST Prior auth submitted for Buprenorphine patches through [facility], access hubbard is [id number] * Telephone Encounter - Blarie Venegas LPN - 10/01/2024 10:24 AM EST Prior auth was started with CMM[facility] for Hydrocodone-acetaminophen 7.5 -325 mg Hubbard # [id number] * Telephone Encounter - Jeison Singletary CPhT - 10/01/2024 9:40 AM EST This is a new PA request. Upon review of this prior authorization request, I verified [facility] is not delegated to complete prior authorizations for this medication. Forwarding request to appropriate location. Thank you, Spencer Singletary (director it project) Production Solderer III [facility] ([facility]) 10/01/2024, 9:40 AM * Telephone Encounter - Staci Lopez PHARM Tech - 10/01/2024 9:36 AM EST Pharmacy calling to inform doctor that the patient's insurance will not pay for this medication without a completed prior authorization. Did confirm this information with the pharmacy. Pt's current insurance information is as follows: Patient name: Poppy Adhikari ID number: [id number] BIN number: [id number] PCN number: [id number] Group number: Subscriber name: Poppy Adhikari Primary or Secondary Insurance:Primary Medication: HYDROcodone-Acetaminophen 7.5-325 MG Oral Tablet Reason for Request: N/A Pharmacy and phone number: [facility] [address] [facility] [phone] Rx plan and phone number: Ghp Medicaid [id number] Is this a new medication for the patient? Yes What alternative medications does the pharmacy have in stock?: N/A Thank you, Staci Lopez, Manager System Manager System I [facility] ([facility]) 10/01/2024,9:37 AM documented in this encounter Plan of Treatment Upcoming Encounters Date Type Department Care Team (Latest Contact Info) Description 5 1:00 PM EST Telemedicine Psychology [place] [address] [place] [address] Niur Zee LCSW [address] [place] [address] 5 3:00 PM EST Office Visit Orthopaedics [facility] [address] [place] [phone] Darrin Celestin MD [address] [place] [address] 5 10:30 AM EST Imaging Radiology [facility] [address] [place] [phone] 5 9:00 AM EST Hospital Encounter ENDO [facility], Endoscopy Room [facility] [address] [place] [place] [phone] Omid Snell MD [address] [place] [address] 5 9:00 AM EST - 5 9:30 AM EST Surgery ENDO [facility], Endoscopy Room [facility] [address] [place] [phone] Omid Snell MD [address] [place] [address] ESOPHAGOGASTRODUODENOSCOPY (EGD), FLEXIBLE, TRANSORAL, DIAGNOSTIC 5 3:30 PM EST Telemedicine Pharmacy, [facility] [address] [place] [address] [facility] [address] [place] [address] 5 3:00 PM EDT Laboratory Laboratory, Kendrick Griggs [address] [place] [phone] [facility] [address] [place] [address] 5 3:20 PM EDT Office Visit [facility], Kendrick Matias [address] [place] [phone] Myesha Cavanaugh MD [address] [facility] [place] [address] Scheduled Procedures Name Priority Associated Diagnoses Date/Ti mn ESOPHAGOGASTRODUODENOSCOPY ( EGD), FLEXIBLE, TRANSORAL, DIAGNOSTIC Pseudocyst [...] 06/20/2023 06/20/2013 Mammogram 01/18/2024 01/17/2023, 0505/2023, 06/27/2013 COVID-19 Vaccine ( season) 2024 Influenza [...] this encounter Medical Devices Implanted Type Area Finance And Administration Manager Device Identifier Shelf Expiration Date Model / Serial / Lot Vitoss Bimodal Foam Pack 10cc - [id number] Implanted:Qty : 2 on 10/11/2017 by Rosendo Nathan, DO at [facility] N/A: Spine Lumbar SARAH : SPINE 03/08/2019 / / [id number] Vitoss Bimodal Foam Pack 10cc - [id number] Implanted:Qty : 1 on 10/11/2017 by Rosendo Nathan DO at [facility] N/A: Spine Lumbar SARAH : SPINE 02/05/2019 / / [id number] Screw Audie Bina 3 Ti Set - [id number] Implanted:Qty : 4 on 10/11/2017 by Rosendo Nathan DO at [facility] N/A: Spine Lumbar SARAH : SPINE [id number] / / 6.5 X 50 Mm Serrate Screws Implanted:Qty : 2 on 10/11/2017 by Rosendo Nathan DO at [facility] N/A: Spine Lumbar SARAH : SPINE [id number] / / 6.5 X 45 Mm Serrate Screw Implanted:Qty : 2 on 10/11/2017 by Rosendo Nathan DO at [facility] N/A: Spine Lumbar SARAH : SPINE [id number] / / 9 X 23x 6 - 9mm Pl Implanted:Qty : 1 on 10/11/2017 by Rosendo Nathan DO at [facility] N/A: Spine Lumbar SARAH : SPINE [id number] / / Shashank Bina 3 Ti 6x40mm - [id number] Implanted:Qty : 1 on 10/11/2017 by Rosendo Nathan DO at [facility] N/A: Spine Lumbar SARAH : SPINE [id number] / / Shashank Bina 3 Ti 6x45mm - [id number] Implanted:Qty : 1 on 10/11/2017 by Rosendo Nathan DO at [facility] N/A: Spine Lumbar SARAH : SPINE [id number] / / Stent Axios [id number] - [id number] Implanted:Qty : 1 on 09/18/2024 by Omid Snell MD at OR [facility] ENDOSCOPY [id number] 05/27/2026 [id number] / / [id number] documented as of this encounter Advance Directives * Full Code (Latest Code Status on File) Date Activated Date Inactivated Comments 10/11/2017 9:23 AM 10/13/2017 10:36 PM This order r eflects the patients wishes and were consensually agreed upon. Care Teams Emergency Room Clinician Relationship Specialty Start Date End Date Myesha Cavanaugh MD [address] [facility] [place] [address] PCP - General Family Medicine 09/18/24 documented as of this encounter
--- OUTSIDE RECORDS SUMMARY | 2024-11-07 04:06 | External Medical Summary | Summary of Care ---
Author Name Unknown Organization [facility] Address [address] , [place] Care Team Providers Care Complaint Adjuster Name Role Phone Myesha Cavanaugh MD Primary Care Provid er Reason for Visit * Reason Onset Date Comments Medication Problem 10/11/2024 Encounter Details Date Type Department Care Team (Late st Contact Info) Description 10/11/2024 Telephone Pharmacy, [facility] David [address] [facility] [place] [address] [facility] Maris[address] [place] [address] Medication Problem Allergies Active Allergy Reactions Criticality Noted Date Comments Amoxicillin 01/05/2017 thrush Latex 06/20/2013 Hives, rash and swelling Lisinopril 06/02/2023 COUGH Nickel Rash 12/03/2020 documented as of this encounter (statuses as of 10/16/2024) Medications Compressor NebulizerIndicat ions:Moderate persistent asthma without complication,RANCH MANAGER D, 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 Use [...] 10/09/2024 Montelukast Sodium 10 MG Oral Tablet (Singulair)Indic [...] for Pain, Severe. 15 Tablet 5 Active Additional Information Patient not taking.Reported on 10/09/2024 FLUoxetine HCl 40 MG Oral Capsule (PROzac)Indicati ons:Major depressive disorder with single episode, in full remission (HCC) Take 1 capsule by mouth once daily in the morning 90 Capsule 1 5 Active documented as of this encounter (statuses as of 10/16/2024) Active Problems Problem Noted Date Diagnosed Date [...] as of this encounter (statuses as of 10/16/2024) Resolved Problems Problem Noted Date Diagnosed Date Resolved Date Food insecurity 04/19/2021 08/26/2021 Overview: Per [facility] Protocol Asthma exacerbation 03/30/2015 07/07/20 17 Moderate persistent asthma 11/09/2014 0 03/30/2015 Overview (11/13/2014): PFT Pneumonitis 07/24/2014 01/06/2022 Asthma exacerbation 07/24/2014 03/30/20 15 documented as of this encounter (statuses as of 10/16/2024) Immunizations Name Administration Dates Next Due PPD [...] No 05/16/2024 Does the household have a [facility] hospitall[facility] source of income? 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 Will hold butrans for now, will address alternatives next week. Submitted prior authorization for hydrocodone. EOC: [id number]. Lisbeth Odonnell, Pharm D, BCACP Clinical Pharmacist 10/15/2024, 3:54 PM * Telephone Encounter - Yadi Lee PHARM Tech - 10/15/2024 3:19 PM EST Caller's name: Poppy Cruz call back number(OFFICE NUMBER FOR ): [phone] Reason for call: Patient called in again, she is asking to go over other options as stated above. Please advise. Thank you, Yadi Lee Senior Game Designer I [facility] ([facility]) 10/15/2024, 3:19 PM * Telephone Encounter - Nava Loomis CPhT - 10/11/2024 1:15 PM EST Caller's name: Poppy Preferred call back number(OFFICE NUMBER FOR ): [phone] Reason for call: states you increased the strength of the Butrans patch but her insurance will not pay for the increased dose, requesting a call back to discuss her options, thank you. Nava Loomis CPhT, [place] Principal Consultant II [facility] Services ([facility]) (formerly Telepharmacy) [address] [facility] [address] [place] [address] ext [phone] documented in this encounter Plan of Treatment Upcoming Encounters Date Type Department Care Team (Latest Contact Info) Description 10:30 AM EST Imaging Radiology [address] [place] [address] 9:00 AM EST Hospital Encounter ENDO [facility], Endoscopy Room [facility] [address] [place] [phone] Omid Snell MD [address] [place] [address] 5 9:00 AM EST - 5 9:15 AM EST Surgery ENDO [facility], Endoscopy Room [facility] [address] [place] [address] Omid Snell MD [address] [place] [address] ESOPHAGOGASTRODUODENOSCOPY (EGD), FLEXIBLE, TRANSORAL, DIAGNOSTIC 5 9:30 AM EST Telemedicine Pharmacy, [facility] [address] [place] [address] [facility] [address] [place] [address] 5 3:30 PM EST Office Visit Orthopaedics [facility] [address] [place] [phone] Darrin Celestin MD [address] [place] [phone] 5 3:00 PM EDT Laboratory Laboratory, Kendrick Griggs [address] [place] [phone] [facility] [address] [place] [address] 5 3:20 PM EDT Office Visit [facility] [place] [address] [place] [phone] Myesha Cavanaugh MD [address] [place] [address] Scheduled Procedures Name Priority Associated Diagnoses Date/Ti [...] this encounter Medical Devices Implanted Type Area Mysql Database Developer Device Identifier Shelf Expiration Date Model / Serial / Lot Vitoss Bimodal Foam Pack 10cc - [id number] Implanted:Qty : 2 on 10/11/2017 by Rosendo Nathan, DO at [facility] N/A: Spine Lumbar SARAH : SPINE 03/08/2019 / / [id number] Vitoss Bimodal Foam Pack 10cc - [id number] Implanted:Qty : 1 on 10/11/2017 by Rosendo Nathan DO at [facility] N/A: Spine Lumbar SARAH : SPINE 02/05/2019 / / [id number] Screw Audie Bina 3 Ti Set - [id number] Implanted:Qty : 4 on 10/11/2017 by Rosendo Nathan DO at [facility] N/A: Spine Lumbar SARAH : SPINE [id number] / / 6.5 X 50 Mm Serrate Screws Implanted:Qty : 2 on 10/11/2017 by Rosendo Nathan DO at [facility] N/A: Spine Lumbar SARAH : SPINE [id number] / / 6.5 X 45 Mm Serrate Screw Implanted:Qty : 2 on 10/11/2017 by Rosendo Nathan DO at [facility] N/A: Spine Lumbar SARAH : SPINE [id number] / / 9 X 23x 6 - 9mm Pl Implanted:Qty : 1 on 10/11/2017 by Rosendo Nathan DO at [facility] N/A: Spine Lumbar SARAH : SPINE [id number] / / Shashank Bina 3 Ti 6x40mm - [id number] Implanted:Qty : 1 on 10/11/2017 by Rosendo Nathan DO at [facility] N/A: Spine Lumbar SARAH : SPINE [id number] / / Shashank Bina 3 Ti 6x45mm - [id number] Implanted:Qty : 1 on 10/11/2017 by Rosendo Nathan DO at [facility] N/A: Spine Lumbar SARAH : SPINE [id number] / / Stent Axios [id number] - [id number] Implanted:Qty : 1 on 09/18/2024 by Omid Snell MD at OR [facility] [employer] [facility] ENDOSCOPY [id number] 05/27/2026 [id number] / / [id number] documented as of this encounter Advance Directives * Full Code (Latest Code Status on File) Date Activated Date Inactivated Comments 10/11/2017 9:23 AM 10/13/2017 10:36 PM This order r eflects the patients wishes and were consensually agreed upon. Care Teams Complaint Adjuster Relationship Specialty Start Date End Date Myesha Cavanaugh MD [address] [place] [address] PCP - General Family Medicine 09/18/24 documented as of this encounter
--- OUTSIDE RECORDS SUMMARY | 2024-11-07 04:06 | External Medical Summary | Summary of Care ---
Author Name Unknown Organization [facility] Address [address] [facility] [place] [address] Phone [phone] Care Team Providers Care Diesel Engine Mechanic Name Role Phone Myesha Cavanaugh MD Primary Care Provid er Reason for Visit * Reason Onset Date Comments Pre Cert/Prior Auth 10/10/2024 Encounter Details Date Type Department Care Team (Late st Contact Info) Description 10/10/2024 [facility] [address] [facility] [place] [address] Myesha Cavanaugh MD [address] [facility] [place] [address] Pre Cert/Prior Auth Allergies [...] once daily 90 Tablet 1 04/15/20 24 025 Discontinued documented as of this [...] 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 Not on file Not [...] encounter Miscellaneous Notes * Telephone Encounter - Shruthi Reyes LPN - 10/10/2024 10:01 AM EST Prior auth for hydrocodone has been submitted via [facility]# [id number] documented in this encounter Plan of Treatment Upcoming Encounters Date Type Department Care Team (Latest Contact Info) Description 5 10:30 AM EST Imaging Radiology [facility] 1st [facility] [address] [place] [address] 5 9:00 AM EST Hospital Encounter ENDO [facility], Endoscopy Room [facility] [address] [place] [address] Omid Snell MD [address] [place] [address] 5 9:00 AM EST - 5 9:15 AM EST Surgery ENDO [facility], Endoscopy Room [facility] [address] [place] [place] [address] Omid Snell MD [address] [place] [address] ESOPHAGOGASTRODUODENOSCOPY (EGD), FLEXIBLE, TRANSORAL, DIAGNOSTIC 5 12:30 PM EST Telemedicine Psychology [facility] [address] [place] [address] Julia Porras, CHIP MIXING MACHINE OPERATOR [address] [place] [address] 5 3:30 PM EST Office Visit Orthopaedics [facility] [address] [place] [address] Darrin Celestin MD [address] [place] [phone] 5 3:30 PM EST Telemedicine Pharmacy, [facility] [address] [place] [address] [facility] [address] [place] [address] 5 3:00 PM EDT Laboratory Laboratory, [place] [address] [place] [address] Lizzette [place] [address] [place] [address] 5 3:20 PM EDT Office Visit Family [facility], [place] [address] [place] [address] Myesha Cavanaugh MD [address] [place] [address] [...] this encounter Medical Devices Implanted Type Area Divinity Teacher Device Identifier Shelf Expiration Date Model / Serial / Lot Vitoss Bimodal Foam Pack 10cc - [id number] Implanted:Qty : 2 on 10/11/2017 by Rosendo Nathan, DO at [facility] N/A: Spine Lumbar SARAH : SPINE 03/08/2019 / / [id number] Vitoss Bimodal Foam Pack 10cc - [id number] Implanted:Qty : 1 on 10/11/2017 by Rosendo Nathan DO at [facility] N/A: Spine Lumbar SARAH : SPINE 02/05/2019 / / [id number] Screw Audie Bina 3 Ti Set - [id number] Implanted:Qty : 4 on 10/11/2017 by Rosendo Nathan DO at [facility] N/A: Spine Lumbar SARAH : SPINE [id number] / / 6.5 X 50 Mm Serrate Screws Implanted:Qty : 2 on 10/11/2017 by Rosendo Nathan, DO at [facility] N/A: Spine Lumbar SARAH : SPINE [id number] / / 6.5 X 45 Mm Serrate Screw Implanted:Qty : 2 on 10/11/2017 by Rosendo Nathan, DO at [facility] N/A: Spine Lumbar SARAH : SPINE [id number] / / 9 X 23x 6 - 9mm Pl Implanted:Qty : 1 on 10/11/2017 by Rosendo Nathan, DO at [facility] N/A: Spine Lumbar SARAH : SPINE [id number] / / Shashank Bina 3 Ti 6x40mm - [id number] Implanted:Qty : 1 on 10/11/2017 by Rosendo Nathan, DO at [facility] N/A: Spine Lumbar SARAH : SPINE [id number] / / Shashank Bina 3 Ti 6x45mm - [id number] Implanted:Qty : 1 on 10/11/2017 by Rosendo Nathan, DO at [facility] N/A: Spine Lumbar SARAH : SPINE [id number] / / Stent Axios 88ppt45xl - [id number] Implanted:Qty : 1 on 09/18/2024 by Omid Snell MD at OR [facility] [employer] : ENDOSCOPY [id number] 05/27/2026 [id number] / / [id number] documented as of this encounter Advance Directives * Full Code (Latest Code Status on File) Date Activated Date Inactivated Comments 10/11/2017 9:23 AM 10/13/2017 10:36 PM This order r eflects the patients wishes and were consensually agreed upon. Care Teams Diesel Engine Mechanic Relationship Specialty Start Date End Date Myesha Cavanaugh MD [address] [place] [address] PCP - General Family Medicine 09/18/24 documented as of this encounter
--- OUTSIDE RECORDS SUMMARY | 2024-11-07 04:06 | External Medical Summary | Summary of Care ---
Author Name Unknown Organization [facility] Address [address] [facility] [place] [address] Phone [phone] Care Team Providers Care Defence Intelligence Analyst Name Role Phone Myesha Cavanaugh MD Primary Care Provid er Reason for Visit * Reason Onset Date Comments Pre Cert/Prior Auth 10/01/2024 Encounter Details Date Type Department Care Team (Late st Contact Info) Description 10/01/2024 Telephone 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 Looking at the notes, and let the patient know that it is the insurance. Please let the patient know when it has been approved. Thank you! * Telephone Encounter - Dorene Rascon PHARM Tech - 10/01/2024 2:41 PM EST [facility] called asking if the Buprenorphine patch can be filled for brand as that is preferred. Please call Yady at [facility] [phone] Please advise Thank you, Dorene Rascon CPhT Pharmacy Assistant II [facility]) 10/01/2024,2:43 PM * Telephone Encounter - Sydnie Craft LPN - 10/01/2024 1:59 PM EST Prior auth submitted for Buprenorphine patches through [facility], access hubbard is [id number] * Telephone Encounter - Blaire Venegas LPN - 10/01/2024 10:24 AM EST Prior auth was started with [facility] for Hydrocodone-acetaminophen 7.5 -325 mg Hubbard # [id number] * Telephone Encounter - Jeison Singletary CPhT - 10/01/2024 9:40 AM EST This is a new [place] request. Upon review of this prior authorization request, I verified [facility] is not delegated to complete prior authorizations for this medication. Forwarding request to appropriate location. Thank you, Spencer Singletary (Mauricio) Pharmacy Assistant III [facility] ([facility]) 10/01/2024, 9:40 AM * Telephone Encounter - Staci Lopez PHARM Tech - 10/01/2024 9:36 AM EST Pharmacy calling to inform doctor that the patient's insurance will not pay for this medication without a completed prior authorization. Did confirm this information with the pharmacy. Pt's current insurance information is as follows: Patient name: Poppy Adhikari ID number: [id number] BIN number: [id number] PCN number: [id number] Group number: Subscriber name: Poppy Adhikari Primary or Secondary Insurance:Primary Medication: HYDROcodone-Acetaminophen 7.5-325 MG Oral Tablet Reason for Request: N/A Pharmacy and phone number: [facility] [address] [facility] [phone] Rx plan and phone number: [employer] Medicaid [id number] Is this a new medication for the patient? Yes What alternative medications does the pharmacy have in stock?: N/A Thank you, Staci Lopez, Digital Business Analyst Digital Business Analyst I [facility] ([facility]) 10/01/2024,9:37 AM documented in this encounter Plan of Treatment Upcoming Encounters Date Type Department Care Team (Latest Contact Info) Description 5 1:00 PM EST Telemedicine Psychology Diego Turner [address] [place] [address] Niru Zee LCSW [address] [place] [address] 5 3:00 PM EST Office Visit Orthopaedics [facility] [address] [place] [address] Darrin Celestin MD [address] [place] [address] 5 10:30 AM EST Imaging Radiology [address] [place] [address] 5 9:00 AM EST Hospital Encounter ENDO [facility], Endoscopy Room [facility] [address] [place] [phone] Omid Snell MD [address] [place] [address] 5 9:00 AM EST - 5 9:30 AM EST Surgery ENDO [facility], Endoscopy Room [facility] [address] [place] [phone] Omid Snell MD [address] [place] [address] ESOPHAGOGASTRODUODENOSCOPY (EGD), FLEXIBLE, TRANSORAL, DIAGNOSTIC 5 3:30 PM EST Telemedicine Pharmacy, [facility] [address] [place] [address] [facility] [address] [place] [address] 5 3:00 PM EDT Laboratory Laboratory, [place] [address] [place] [address] [facility] [address] [place] [address] 5 3:20 PM EDT [facility] [place] [address] [place] [address] Myesha Cavanaugh MD [address] [place] [address] Scheduled Procedures Name Priority Associated Diagnoses Date/Ti ak ESOPHAGOGASTRODUODENOSCOPY ( EGD), FLEXIBLE, TRANSORAL, DIAGNOSTIC Pseudocyst [...] this encounter Medical Devices Implanted Type Area Stock Buyer Device Identifier Shelf Expiration Date Model / Serial / Lot Vitoss Bimodal Foam Pack 10cc - [id number] Implanted:Qty : 2 on 10/11/2017 by Rosendo Nathan DO at [facility] N/A: Spine Lumbar SARAH : SPINE 03/08/2019 / / [id number] Vitoss Bimodal Foam Pack 10cc - [id number] Implanted:Qty : 1 on 10/11/2017 by Rosendo Nathan DO at [facility] N/A: Spine Lumbar SARAH : SPINE 02/05/2019 / / [id number] Screw Audie Bina 3 Ti Set - [id number] Implanted:Qty : 4 on 10/11/2017 by Rosendo Nathan DO at [facility] N/A: Spine Lumbar SARAH : SPINE [id number] / / 6.5 X 50 Mm Serrate Screws Implanted:Qty : 2 on 10/11/2017 by Rosendo Nathan DO at [facility] N/A: Spine Lumbar SARAH : SPINE [id number] / / 6.5 X 45 Mm Serrate Screw Implanted:Qty : 2 on 10/11/2017 by Rosendo Nathan DO at [facility] N/A: Spine Lumbar SARAH : SPINE [id number] / / 9 X 23x 6 - 9mm Pl Implanted:Qty : 1 on 10/11/2017 by Rosendo Nathan DO at [facility] N/A: Spine Lumbar SARAH : SPINE [id number] / / Shashank Bina 3 Ti 6x40mm - [id number] Implanted:Qty : 1 on 10/11/2017 by Rosendo Nathan DO at [facility] N/A: Spine Lumbar SARAH : SPINE [id number] / / Shashank Bina 3 Ti 6x45mm - [id number] Implanted:Qty : 1 on 10/11/2017 by Rosendo Nathan DO at [facility] N/A: Spine Lumbar SARAH : SPINE [id number] / / Stent Axios [id number] - [id number] Implanted:Qty : 1 on 09/18/2024 by Omid Snell MD at OR [facility] [employer] : ENDOSCOPY [id number] 05/27/2026 [id number] / / [id number] documented as of this encounter Advance Directives * Full Code (Latest Code Status on File) Date Activated Date Inactivated Comments 10/11/2017 9:23 AM 10/13/2017 10:36 PM This order r eflects the patients wishes and were consensually agreed upon. Care Teams Defence Intelligence Analyst Relationship Specialty Start Date End Date Myesha Cavanaugh MD [address] [place] [address] PCP - General Family Medicine 09/18/24 documented as of this encounter
--- OUTSIDE RECORDS SUMMARY | 2024-11-07 04:06 | External Medical Summary | Summary of Care ---
Author Name Unknown Organization [facility] Address [address] [facility] [place] [address] Phone [phone] Care Team Providers Care Forklift Supervisor Name Role Phone Олег Cavanaugh MD Primary Care Provid er Reason for Visit * Reason Comments eRx-Medication Refill Encounter Details Date Type Department Care Team (Late st Contact Info) Description 10/11/2024 Refill 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 Not [...] encounter Miscellaneous Notes * Telephone Encounter - Elise Sheffield, [facility] - 10/11/2024 1:39 PM EST Signed Prescriptions: Disp Refills EQ All Day Allergy Relief 10 MG Oral Table*90 Tab*1 Sig: Take 1 tablet by mouth once dailyAuthorizing Provider: ОЛЕГ CAVANAUGH User: ELISE SHEFFIELD documented in this encounter Plan of Treatment Upcoming Encounters Date Type Department Care Team (Latest Contact Info) Description 5 10:30 AM EST Imaging Radiology [facility] 1st [facility] [address] [place] [address] 5 9:00 AM EST Hospital Encounter ENDO [facility], Endoscopy Room [facility] [address] [place] [address] Omid Snell MD [address] [place] [address] 5 9:00 AM EST - 5 9:15 AM EST Surgery ENDO [facility], Endoscopy Room [facility] [address] [place] [address] Omid Snell MD [address] [place] [address] ESOPHAGOGASTRODUODENOSCOPY (EGD), FLEXIBLE, TRANSORAL, DIAGNOSTIC 5 12:30 PM EST Telemedicine Psychology [facility] [address] [place] [address] Julia Porras, ACTIVITIES ATTENDANT [address] [place] [address] 5 3:30 PM EST Office Visit Orthopaedics [facility] [address] [place] [phone] Darrin Celestin MD [address] [place] [address] 5 3:30 PM EST Telemedicine Pharmacy, [facility] [address] [place] [address] [facility] [address] [place] [address] 5 3:00 PM EDT Laboratory Laboratory, [place] [address] [facility] [place] [address] [facility] [address] [facility] [place] [address] 5 3:20 PM EDT Office Visit [facility] [place] [facility] [address] [facility] [place] [address] Олег Cavanaugh MD [address] [place] [address] Scheduled Procedures Name Priority Associated Diagnoses Date/Ti [...] 07/16/2013 DISCUSS TOBACCO CESSATION (REFER TO SMARTSET #3935) 01/06/2023 01/06/2022, 09/23/2021 DTap/Tdap Vaccines (2 - Td or Tdap) 06/20/2023 06/20/2013 Mammogram 01/18/2024 01/17/2023, 05/0 05/2023, 06/27/2013 COVID-19 Vaccine ( - season) 2024 Influenza Vaccine (FLU shot) (#1) 2024 07/07/2017, 06/20/2013 GFR 12/30/2024 12/31/2023, /, 11/28/2023, Additional history exists HIV Screening 03/25/2025 [...] this encounter Medical Devices Implanted Type Area Waste Chopper Device Identifier Shelf Expiration Date Model / Serial / Lot Vitoss Bimodal Foam Pack 10cc - [id number] Implanted:Qty : 2 on 10/11/2017 by Rosendo Nathan, DO at [facility] N/A: Spine Lumbar SARAH : SPINE 03/08/2019 / / [id number] Vitoss Bimodal Foam Pack 10cc - [id number] Implanted:Qty : 1 on 10/11/2017 by Rosendo Nathan, DO at [facility] N/A: Spine Lumbar SARAH : SPINE 02/05/2019 / / [id number] Screw Audie Bina 3 Ti Set - [id number] Implanted:Qty : 4 on 10/11/2017 by Rosendo Nathan DO at [facility] N/A: Spine Lumbar SARAH : SPINE [id number] / / 6.5 X 50 Mm Serrate Screws Implanted:Qty : 2 on 10/11/2017 by Rosendo Nathan DO at [facility] N/A: Spine Lumbar SARAH : SPINE [id number] / / 6.5 X 45 Mm Serrate Screw Implanted:Qty : 2 on 10/11/2017 by Rosendo Nathan DO at [facility] N/A: Spine Lumbar SARAH : SPINE [id number] / / 9 X 23x 6 - 9mm Pl Implanted:Qty : 1 on 10/11/2017 by Rosendo Nathan DO at [facility] N/A: Spine Lumbar SARAH : SPINE [id number] / / Shashank Bina 3 Ti 6x40mm - [id number] Implanted:Qty : 1 on 10/11/2017 by Rosendo Nathan DO at [facility] N/A: Spine Lumbar SARAH : SPINE [id number] / / Shashank Bina 3 Ti 6x45mm - [id number] Implanted:Qty : 1 on 10/11/2017 by Rosendo Nathan DO at [facility] N/A: Spine Lumbar SARAH : SPINE [id number] / / Stent Axios [id number] - [id number] Implanted:Qty : 1 on 09/18/2024 by Omid Snell MD at OR [facility] : ENDOSCOPY [id number] 05/27/2026 [id number] / / [id number] documented as of this encounter Advance Directives * Full Code (Latest Code Status on File) Date Activated Date Inactivated Comments 10/11/2017 9:23 AM 10/13/2017 10:36 PM This order r eflects the patients wishes and were consensually agreed upon. Care Teams Forklift Supervisor Relationship Specialty Start Date End Date Олег Cavanaugh MD [address] [place] [address] PCP - General Family Medicine 09/18/24 documented as of this encounter
--- OUTSIDE RECORDS SUMMARY | 2024-11-07 04:07 | External Medical Summary | Summary of Care ---
Author Name Unknown Organization [facility] [address] [facility] [address] Phone [phone] Care Team Providers Care Medical Support Specialist Name Role Phone Myesha Cavanaugh MD Primary Care Provid er Reason for Referral * Evaluate & Treat - Unlimited Visits (Within 10 days (routine)) - Pending Review Specialty Diagnoses / Procedures Referred By Jun garay Referred To Contact Psychiatry Diagnoses Anxiety Cluster B personality disorder (HCC) History of alcohol abuse History of psychological trauma Myesha Cavanaugh MD [address] [place] [address] Phone: tel: fax: Referral ID Status Reason Start Date Expiration Date Visits Requested Visits Authorized [id number] Pending Review Specialty Services Required 09/30/[phone] Question Answer Referral Priority Within 10 days (routine) Where should this appointment be scheduled? [facility] Is this referral for medication management? Yes Reason for Referral Depression * Evaluate & Treat - Unlimited Visits (Within 30 days (routine)) - Pending Review Specialty Diagnoses / Procedures Referred By Jun garay Referred To Contact Orthopaedic Surgery / Orthopedics Diagnoses Chronic left shoulder pain Myesha Cavanaugh MD [address] [place] [address] Phone: tel: fax: Referral ID Status Reason Start Date Expiration Date Visits Requested Visits Authorized [id number] Pending Review Specialty Services Required 09/30/[phone] Question Answer Referral Priority Within 30 days (routine) Where should this appointment be scheduled? [facility] What body part is the patient being seen for? Shoulder What condition is the patient being seen for? Arthritis including related infection Reason for Visit * Reason Comments Follow Up Patient is here toda y for a 6 mo follow up. Patient would like to discuss a house cleaning aid. Patient states she is having left shoulder pain. Patient would like to also discuss finding out her blood type. 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 ([facility]); COPD, moderate ([facility]); Major depressive disorder with single episode, in full remission ([facility]); Essential (primary) hypertension; Alcohol abuse, uncomplicated; Cluster B personality disorder (HCC); Chronic left shoulder pain; History of alcohol abuse; History of psychological trauma; Fatigue, unspecified type Allergies Active Allergy Reactions Criticality Noted Date Comments Amoxicillin 01/05/2017 thrush Latex 06/20/2013 Hives, rash and swelling Lisinopril 06/02/2023 COUGH Nickel Rash 12/03/2020 documented as of this encounter (statuses as of 09/30/2024) Medications Compressor NebulizerIndicat ions:Moderate persistent asthma without complication,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 Use [...] for Pain, Severe. 15 Tablet 5 Active hydrOXYzine HCl 50 MG Oral TabletIndication s:Anxiety,Prurit us Take 1 Tablet by mouth every 6 hours as needed for Itching or Anxiety. 60 Tablet 5 4 09/30/19 25 Discontin ued(Refil l) Pregabalin 150 MG Oral Capsule (Lyrica)Indicati ons:Spinal stenosis of lumbar region with neurogenic claudication Take 1 Capsule by mouth in the morning and 1 Capsule before bedtime. 60 Capsule 2 4 09/30/19 25 Discontin ued(Refil l) Buprenorphine HCl 2 MG Sublingual Tablet Sublingual (Subutex) Place 1 Tablet under the tongue every 30 minutes as needed for Pain, Moderate or Pain, Severe for up to 3 doses. 3 Tablet 5 09/30/19 25 Discontin ued(Disch arged) Buprenorphine HCl 2 MG Sublingual Tablet Sublingual (Subutex) Dissolve 1 tablet under the tongue every 30 minutes as needed for moderate or severe pain for up to 3 doses 3 Tablet 09/18/2024 1:23 PM EST 5 09/30/19 25 Discontin ued(Disch arged) documented as of this encounter (statuses as of 09/30/2024) Active Problems Problem Noted Date Diagnosed Date [...] as of this encounter (statuses as of 09/30/2024) Resolved Problems Problem Noted Date Diagnosed Date Resolved Date Food insecurity 04/19/2021 08/26/2021 Overview: Per [facility] Protocol Asthma exacerbation 03/30/2015 07/07/20 17 Moderate persistent asthma 11/09/2014 0 03/30/2015 Overview (11/13/2014): PFT Pneumonitis 07/24/2014 01/06/2022 Asthma exacerbation 07/24/2014 03/30/20 15 documented as of this encounter (statuses as of 09/30/2024) Immunizations Name Administration Dates Next Due PPD [...] No 05/16/2024 Does the household have a [facility] source [facility] income? 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 Not on file Not on file documented as of this encounter Last Filed Vital Signs Vital Sign Reading Time Taken Comments Blood Pressure 150/92 09/30/2024 6:24 PM EST Pulse 85 09/30/2024 6:24 PM EST Temperature 37.3 C (99.2 F) 09/30/2024 6:24 PM ES T Respiratory Rate 16 09/30/2024 6:24 PM EST Oxygen Saturation 97% 09/30/2024 6:24 PM EST Inhaled Oxygen Concentration - - Weight 60.4 kg (133 lb 3.2 oz) 09/30/2024 6:24 P M EST Height 160 cm (5' 3") 09/30/2024 6:24 PM EST Body Mass Index 23.6 09/30/2024 6:24 PM EST documented in this encounter Functional Status * [...] Ashley Suggs RN documented in this encounter Patient Instructions * Patient Instructions* Myesha Cavanaugh MD - 09/30/2024 6:22 PM EST documented in this encounter Progress Notes * Myesha Cavanaugh MD - 09/30/2024 6:49 PM EST ASSESSMENT / PLAN: Poppy Adhikari is a 54 year old female with PMHx spinal stenosis / lumbar radiculopathy / h/o lumbar fusion 2018 / MDD / GERD / asthma / cigarette use in early remission / alcohol use in early remission / MGUS / macrocytic anemia / s/p lumbar fusion x 2, most recently 12/25/23 - here for follow up Metz's esophagus Follows w GI - endoscopy q3 y On omeprazole LBP / s/p L fusion / chronic pain Follows w [facility]TM for med optimization Cont lyrica 150mg BID, Butrans 10 this medication regimen adequately treats her pain and should be continued. +medical marijuana card as well Pancreatic complex cyst Follows w GI COPD Stable cont trelegy / montelukast - Depression Previously seen by psych - they noted that pt endorsed "extensive abuse/ trauma hx; self-harm bx; mood reactivity; exacerbated by physical pain at present. " Curretnly on hydroxyzine 50 / trazodone 50 / fluoxetine 60 / duloxetine 60 / Encouraged pt to see psychiatry - she is agreeable Is in contact with case mgmt - Rajesh mendez - staff messg sent to him re: pt's request for help at home HTN Controlled, cont Losartan 50 Fatigue / low libido Do not recommend HRT Labs See psych Shoulder pain Chronic - for ortho 0 Follow Up: Return in about 6 months (around 03/30/2025) for Labs Today, Labs 2-5 Days Before Next Visit. | For: Labs Today, Labs 2-5 Days Before Next Visit Spinal stenosis of lumbar region with neurogenic claudication (Primary) - Pregabalin 150 MG Oral Capsule (Lyrica); Take 1 Capsule by mouth in the morning and 1 Capsule before bedtime. - COMPREHENSIVE METABOLIC PANEL; Future; Expected date: 09/30/2024 - COMPREHENSIVE METABOLIC PANEL; Future; Expected date: 03/30/2025 - HYDROcodone-Acetaminophen 7.5-325 MG Oral Tablet; Take 1 Tablet by mouth every 8 hours as needed for Pain, Severe. Need for edlvlgaqby-izuyvdm-fwlurwtep (Tdap) vaccine - COMPREHENSIVE METABOLIC PANEL; Future; Expected date: 09/30/2024 - COMPREHENSIVE METABOLIC PANEL; Future; Expected date: 03/30/2025 Anxiety - hydrOXYzine HCl 50 MG Oral Tablet; Take 1 Tablet by mouth every 6 hours as needed for Itching orAnxiety. - COMPREHENSIVE METABOLIC PANEL; Future; Expected date: 09/30/2024 - COMPREHENSIVE METABOLIC PANEL; Future; Expected date: 03/30/2025 - ADULT/PEDS PSYCHIATRY REFERRAL OP Pruritus - hydrOXYzine HCl 50 MG Oral Tablet; Take 1 Tablet by mouth every 6 hours as needed for Itching or Anxiety. 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 (HCC) - COMPREHENSIVE METABOLIC PANEL; Future; Expected date: 09/30/2024 - COMPREHENSIVE METABOLIC PANEL; Future; Expected date: 03/30/2025 COPD, 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) - COMPREHENSIVE METABOLIC PANEL; Future; Expected date: 09/30/2024 - COMPREHENSIVE METABOLIC PANEL; Future; Expected date: 03/30/2025 Major depressive disorder with single episode, in full remission (HCC) - COMPREHENSIVE METABOLIC PANEL; Future; Expected date: 09/30/2024 - COMPREHENSIVE METABOLIC PANEL; Future; Expected date: 03/30/2025 Essential (primary) hypertension - COMPREHENSIVE METABOLIC PANEL; Future; Expected date: 09/30/2024 - COMPREHENSIVE METABOLIC PANEL; Future; Expected date: 03/30/2025 Alcohol abuse, uncomplicated - COMPREHENSIVE METABOLIC PANEL; Future; Expected date: 09/30/2024 - COMPREHENSIVE METABOLIC PANEL; Future; Expected date: 03/30/2025 Cluster B personality disorder (HCC) - COMPREHENSIVE METABOLIC PANEL; Future; Expected date: 09/30/2024 - COMPREHENSIVE METABOLIC PANEL; Future; Expected date: 03/30/2025 - ADULT/PEDS PSYCHIATRY REFERRAL OP Chronic left shoulder pain - ORTHOPAEDICS REFERRAL OP - HYDROcodone-Acetaminophen 7.5-325 MG Oral Tablet; Take 1 Tablet by mouth every 8 hours as needed for Pain, Severe. History of alcohol abuse - ADULT/PEDS PSYCHIATRY REFERRAL OP History of psychological trauma - ADULT/PEDS PSYCHIATRY REFERRAL OP Fatigue, unspecified type - TSH WITH FREE T4 IF INDICATED; Future; Expected date: 09/30/2024 - CBC WITH WBC DIFFERENTIAL; Future; Expected date: 09/30/2024 Follow Up: Return in about 6 months (around 03/30/2025) for Labs Today, Labs 2-5 Days Before Next Visit. | For: Labs Today, Labs 2-5 Days Before Next Visit If needed, prefers contact by: Ok to leave message on phone: SUBJECTIVE: Nursing Notes: Salma Barksdale LPN 09/30/24 1828 Signed The patient has been properly identified by confirmation of name and date of . Chief Complaint Patient presents with Follow Up Patient is here today for a 6 mo follow up. Patient would like to discuss a house cleaning aid. Patient states she is having left shoulder pain. Patient would like to also discuss finding out her blood type. HPI: Poppy Adhikari is a 54 year old female. Here for recheck. Recently had a procedure for a stent for her pancreas cyst and had a lot of pain Mood is "horrible" "edgy" "miserable to be around" Feeling fatigued Max drinks 5 per day - feels no support bc of her fiancee drinks "like a fish" Some days drinks none Some days drinks 2 or more. 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 Use as directed. 1 Each 1 Acetaminophen 500 MG Oral Tablet (Tylenol) Take 2 Tablets by mouth every 6 hours as needed. DULoxetine HCl 60 MG Oral Capsule Delayed Release Particles (Cymbalta) TAKE 1 CAPSULE BY MOUTH ONCEDAILY IN THE MORNING DO NOT CUT, CRUSH, OR CHEW CAPSULE 90 Capsule 3 FLUoxetine HCl 20 MG Oral Capsule (PROzac) Take 1 Capsule by mouth in the morning. Add to 40mg dosefor total daily dose 60mg.. 90 Capsule 1 Dulera 200-5 MCG/ACT Inhalation Aerosol (Mometasone-Formoterol) Inhale 2 Puffs by mouth in the morning and 2 Puffs before bedtime. 13 g 11 Albuterol Sulfate (2.5 MG/3ML) 0.083% Inhalation Nebulization Solution (Proventil) Inhale 1 Vial via nebulizer every 6 hours as needed for Wheezing. J45.40 J44.9 360 mL 11 EQ All Day Allergy Relief 10 MG Oral Tablet (Loratadine) Take 1 tablet by mouth once daily 90 Tablet 1 FLUoxetine HCl 40 MG Oral Capsule (PROzac) Take 1 capsule by mouth in the morning 90 Capsule 1 Albuterol Sulfate HFA 108 (90 Base) MCG/ACT Inhalation Aerosol Solution INHALE 2 PUFFS BY MOUTH EVERY 4 HOURS NEEDED FOR WHEEZING 54 g 2 Folic Acid 1 MG Oral Tablet Take 1 Tablet by mouth in the morning. 90 Tablet 3 Omeprazole 20 MG Oral Capsule Delayed Release (PriLOSEC) Take 1 capsule by mouth twice daily 60 Capsule 5 Bgtfuwahihj-Alwssdnal-Uesmxf 100-62.5-25 MCG/ACT Aerosol Powder Breath Activated (Trelegy Ellipta) Inhale 1 Puff by mouth in the morning. 60 Blister Dosing Unit 5 traZODone HCl 50 MG Oral Tablet (Desyrel) TAKE 1 TABLET BY MOUTH AT BEDTIME 90 Tablet 3 Losartan Potassium 50 MG Oral Tablet (Cozaar) TAKE 1 TABLET BY MOUTH IN THE MORNING 90 Tablet 1 Buprenorphine 10 MCG/HR Transdermal Patch Weekly (Butrans) Place 1 Patch over 7 days topically on the skin once a week. Do not start before September 24, 2024. 4 Patch 5 Montelukast Sodium 10 MG Oral Tablet (Singulair) TAKE 1 TABLET BY MOUTH AT BEDTIME 90 Tablet 3 hydrOXYzine HCl 50 MG Oral Tablet Take 1 Tablet by mouth every 6 hours as needed for Itching or Anxiety. 60 Tablet 5 Pregabalin 150 MG Oral Capsule (Lyrica) Take 1 Capsule by mouth in the morning and 1 Capsule beforebedtime. 60 Capsule 2 HYDROcodone-Acetaminophen 7.5-325 MG Oral Tablet Take 1 Tablet by mouth every 8 hours as needed forPain, Severe. 15 Tablet 0 No current facility-administered medications for this visit. OBJECTIVE: BP 150/92 (BP Site: Left Arm, BP Position: Sitting, BP Cuff Size: Regular) | Pulse 85 | Temp 99.2 F (37.3 C) (Tympanic) | Resp 16 | Ht 5' 3" (1.6 m) | Wt 133 lb 3.2 oz (60.4 kg) | LMP 07/11/2013 | SpO2 97% | BMI 23.60 kg/m | BSA 1.64 m Vitals reviewed and is normotensive / afebrile / and not tachycardic General: No acute distress. Neuro: Alert Pleasant & interactive. Respiratory: Good inspiratory effort, no labored breathing. CTAB CV: RRR no M R G MSK: cannot lift her L arm above 90 deg HEENT: Conjunctivae appear clear. No swelling noted face or lips. Skin: No rash visible on exposed skin areas, normal coloration & appears dry. Psych: Normal affect. Fluent speech. I spent a total of 40-54 minutes (exact time 45 mins) on the date of service in preparation, delivery, and documentation of the care provided to Poppy Adhikari excluding any time spent in the performance of separately billed services or time spent by another provider/QHP. Myesha Cavanaugh MD [address] [address] Patient Instructions documented in this encounter Nursing Notes * Salma Barksdale LPN - 09/30/2024 6:28 PM EST The patient has been properly identified by confirmation of name and date of . Chief Complaint Patient presents with Follow Up Patient is here today for a 6 mo follow up. Patient would like to discuss a house cleaning aid. Patient states she is having left shoulder pain. Patient would like to also discuss finding out her blood type. documented in this encounter Plan of Treatment Upcoming Encounters Date Type Department Care Team (Latest Contact Info) Description 1:00 PM EST Telemedicine Psychology Diego Turner [address] [phone] Niru Zee LCSW [address] [phone] 5 3:00 PM EST Office Visit Orthopaedics [facility] [address] [place] [address] Darrin Celestin MD [address] [place] [phone] 5 10:30 AM EST Imaging Radiology [facility] [facility] [address] [place] [address] 5 9:00 AM EST Hospital Encounter ENDO [facility], Endoscopy Room [facility] [address] [place] [phone] Omid Snell MD [address] [place] [address] 5 9:00 AM EST - 5 9:30 AM EST Surgery ENDO [facility], Endoscopy Room [facility] [address] [place] [phone] Omid Snell MD [address] [place] [address] ESOPHAGOGASTRODUODENOSCOPY (EGD), FLEXIBLE, TRANSORAL, DIAGNOSTIC 5 3:30 PM EST Telemedicine Pharmacy, [facility] [address] [place] [id number] [facility] [address] [place] [phone] 5 3:00 PM EDT Laboratory Laboratory, [facility] [address] [phone] Lizzette Marks [address] [address] 3:20 PM EDT Office Visit 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 (HCC) COPD, 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) Major depressive disorder with single episode, in full remission (HCC) Essential (primary) hypertension Alcohol abuse, uncomplicated Cluster B personality disorder (HCC) Expected: 09/30/2024 (Approximate), Expires: 09/30/2025 COMPREHENSIVE METABOLIC PANEL Lab Routine Need for szdatkcozm-eaozavw-xxoyy ssis (Tdap) vaccine Anxiety Pruritus Spinal stenosis of lumbar region with neurogenic claudication 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 (HCC) COPD, 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) Major depressive disorder with single episode, in full remission (HCC) Essential (primary) hypertension Alcohol abuse, uncomplicated Cluster B personality disorder (HCC) Expected: 03/30/2025 (Approximate), Expires: 10/31/2025 TSH WITH FREE T4 IF INDICATED Lab Routine Fatigue, unspecified type Expected: 09/30/2024 (Approximate), Expires: 09/30/2025 CBC WITH WBC DIFFERENTIAL Lab Routine Fatigue, unspecified type Expected: 09/30/2024 (Approximate), Expires: 09/30/2025 Scheduled Procedures Name Priority Associated Diagnoses Date/Ti me ESOPHAGOGASTRODUODENOSCOPY ( EGD), FLEXIBLE, TRANSORAL, DIAGNOSTIC Pseudocyst of pancreas 10/23/2024 9:00 AM EST ESOPHAGOGASTRODUODENOSCOPY ( EGD), FLEXIBLE, TRANSORAL, DIAGNOSTIC Recall Metz's esophagus with esophagitis Scheduled Referrals Name Type Priority Associated Diagnoses Orde r Schedule ORTHOPAEDICS REFERRAL OP Referral Within 30 days (routine) Chronic left shoulder pain Ordered: 09/30/2024 ADULT/PEDS PSYCHIATRY REFERRAL OP Referral Within 10 days (routine) Anxiety Cluster B personality disorder (HCC) History of alcohol abuse History of psychological trauma Ordered: 09/30/2024 Health Maintenance Due Date Last Done Comments [...] this encounter Medical Devices Implanted Type Area Cigar Tobacco Processing Supervisor Device Identifier Shelf Expiration Date Model / Serial / Lot Vitoss Bimodal Foam Pack 10cc - [id number] Implanted:Qty : 2 on 10/11/2017 by Rosendo Nathan DO at [facility] N/A: Spine Lumbar SARAH : SPINE 03/08/2019 / / [id number] Vitoss Bimodal Foam Pack 10cc - [id number] Implanted:Qty : 1 on 10/11/2017 by Rosendo Nathan DO at [facility] N/A: Spine Lumbar SARAH : SPINE 02/05/2019 / / [id number] Screw Audie Bina 3 Ti Set - [id number] Implanted:Qty : 4 on 10/11/2017 by Rosendo Nathan DO at [facility] N/A: Spine Lumbar SARAH : SPINE [id number] / / 6.5 X 50 Mm Serrate Screws Implanted:Qty : 2 on 10/11/2017 by Rosendo Nathan DO at [facility] N/A: Spine Lumbar SARAH : SPINE [id number] / / 6.5 X 45 Mm Serrate Screw Implanted:Qty : 2 on 10/11/2017 by Rosendo Nathan DO at [facility] N/A: Spine Lumbar SARAH : SPINE [id number] / / 9 X 23x 6 - 9mm Pl Implanted:Qty : 1 on 10/11/2017 by Rosendo Nathan DO at [facility] N/A: Spine Lumbar SARAH : SPINE [id number] / / Shashank Bina 3 Ti 6x40mm - [id number] Implanted:Qty : 1 on 10/11/2017 by Rosendo Nathan DO at [facility] N/A: Spine Lumbar SARAH : SPINE [id number] / / Shashank Bina 3 Ti 6x45mm - [id number] Implanted:Qty : 1 on 10/11/2017 by Rosendo Nathan DO at [facility] N/A: Spine Lumbar SARAH : SPINE [id number] / / Stent [employer] [id number] - [id number] Implanted:Qty : 1 on 09/18/2024 by Omid Snell MD at [facility] : ENDOSCOPY [id number] 05/27/2026 [id number] / / [id number] documented as of this encounter Visit Diagnoses Diagnosis Spinal stenosis of lumbar region with neurogenic claudication- Primary Spinal stenosis, lumbar region, with neurogenic claudication Need for hlwvlniksh-dqafccz-hxmleoyok (Tdap) vaccine Need for prophylactic vaccination with combined sosuwtexrd-krbzybw-gqfjyisbc (DTP) vaccine Anxiety Anxiety state, unspecified Pruritus Unspecified pruritic disorder 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 COPD, 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) Chronic airway obstruction, not elsewhere classified Major depressive disorder with single episode, in full remission (HCC) Essential (primary) hypertension Unspecified essential hypertension Alcohol abuse, uncomplicated Cluster B personality disorder (HCC) Unspecified personality disorder Chronic left shoulder pain Pain in joint, shoulder region History of alcohol abuse Nondependent alcohol abuse, in remission History of psychological trauma Other personal history of psychological trauma, presenting hazards to health Fatigue, unspecified type Pseudocyst of pancreas Cyst and pseudocyst of pancreas documented in this encounter Advance Directives * Full Code (Latest Code Status on File) Date Activated Date Inactivated Comments 10/11/2017 9:23 AM 10/13/2017 10:36 PM This order r eflects the patients wishes and were consensually agreed upon. Care Teams Medical Support Specialist Relationship Specialty Start Date End Date Myesha Cavanaugh MD [address] [facility] [place] [address] PCP - General Family Medicine 09/18/24 documented as of this encounter
--- OUTSIDE RECORDS SUMMARY | 2024-11-07 04:07 | External Medical Summary | Summary of Care ---
Author Name Unknown Organization [facility] Address [address] [facility] [place] [address] Phone [phone] Care Team Providers Care Director Of Casework Department Name Role Phone Myesha Cavanaugh MD Primary Care Provid er Reason for Visit * Reason Onset Date Comments Pre Cert/Prior Auth 10/01/2024 Encounter Details Date Type Department Care Team (Late st Contact Info) Description 10/01/2024 [facility] [place] [address] [facility] [place] [address] Myesha Cavanaugh MD [address] [facility] [place] [address] Pre Cert/Prior Auth Allergies Active Allergy Reactions Criticality Noted Date Comments Amoxicillin 01/05/2017 thrush Latex 06/20/2013 Hives, rash and swelling Lisinopril 06/02/2023 COUGH Nickel Rash 12/03/2020 documented as of this encounter (statuses as of 10/01/2024) Medications Compressor NebulizerIndicati ons:Moderate persistent asthma without [...] :Spinal stenosis of lumbar region with neurogenic claudication,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 15 Tablet 5 Active documented as of this encounter (statuses as of 10/01/2024) Active Problems Problem Noted Date Diagnosed Date [...] as of this encounter (statuses as of 10/01/2024) Resolved Problems Problem Noted Date Diagnosed Date Resolved Date Food insecurity 04/19/2021 08/26/2021 Overview: Per [facility] Protocol Asthma exacerbation 03/30/2015 07/07/20 17 Moderate persistent asthma 11/09/2014 0 03/30/2015 Overview (11/13/2014): PFT Pneumonitis 07/24/2014 01/06/2022 Asthma exacerbation 07/24/2014 03/30/20 15 documented as of this encounter (statuses as of 10/01/2024) Immunizations Name Administration Dates Next Due PPD [...] 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 Looking at the notes, and let the patient know that it is the insurance. Please let the patient know when it has been approved. Thank you! * Telephone Encounter - Dorene Rascon PHARM Tech - 10/01/2024 2:41 PM EST [facility] called asking if the Buprenorphine patch can be filled for brand as that is preferred. Please call Yady at [facility] [phone] Please advise Thank you, Dorene Rascon, [facility] Senior Medical Transcriptionist II [facility]) 10/01/2024,2:43 PM * Telephone Encounter - Sydnie Craft LPN - 10/01/2024 1:59 PM EST Prior auth submitted for Buprenorphine patches through CM, access hubbard is [id number] * Telephone Encounter - Blaire Venegas LPN - 10/01/2024 10:24 AM EST Prior auth was started with CMM's for Hydrocodone-acetaminophen 7.5 -325 mg [facility] # [id number] * Telephone Encounter - Jeison Singletary CPhT - 10/01/2024 9:40 AM EST This is a new PA request. Upon review of this prior authorization request, I verified [facility] is not delegated to complete prior authorizations for this medication. Forwarding request to appropriate location. Thank you, Spencer Singletary ([facility]) Senior Medical Transcriptionist III [facility] ([facility]) 10/01/2024, 9:40 AM * Telephone Encounter - Staci Lopez PHARM Tech - 10/01/2024 9:36 AM EST Pharmacy calling to inform doctor that the patient's insurance will not pay for this medication without a completed prior authorization. Did confirm this information with the pharmacy. Pt's current insurance information is as follows: Patient name: Poppy Adhikari ID number: [id number] BIN number: [id number] PCN number: [id number] Group number: Subscriber name: Poppy Adhikari Primary or Secondary Insurance:Primary Medication: HYDROcodone-Acetaminophen 7.5-325 MG Oral Tablet Reason for Request: N/A Pharmacy and phone number: [facility] [address] [place] [phone] Rx plan and phone number: [facility] Medicaid [id number] Is this a new medication for the patient? Yes What alternative medications does the pharmacy have in stock?: N/A Thank you, Staci Lopez, Psych Arnp Psych Arnp I [facility] ([facility]) 10/01/2024,9:37 AM documented in this encounter Plan of Treatment Upcoming Encounters Date Type Department Care Team (Latest Contact Info) Description 5 1:00 PM EST Telemedicine Psychology Diego Turner [address] [place] [phone] Niru Zee LCSW [address] [place] [address] 5 3:00 PM EST Office Visit Orthopaedics [facility] [address] [place] [phone] Darrin Celestin MD [address] [place] [phone] 5 10:30 AM EST Imaging Radiology [address] [place] [address] 5 9:00 AM EST Hospital Encounter ENDO [facility], Endoscopy Room [facility] [address] [place] [phone] Omid Snell MD [address] [place] [address] 5 9:00 AM EST - 5 9:30 AM EST Surgery ENDO [facility], Endoscopy Room [facility] [address] [place] [phone] Omid Snell MD [address] [place] [address] ESOPHAGOGASTRODUODENOSCOPY (EGD), FLEXIBLE, TRANSORAL, DIAGNOSTIC 5 3:30 PM EST Telemedicine Pharmacy, [facility] [address] [place] [address] [facility] [address] [place] [place] [address] 5 3:00 PM EDT Laboratory Laboratory, [facility]rick Griggs [address] [place] [phone] [facility] [address] [place] [address] 5 3:20 PM EDT Office Visit Family [facility] [place] [address] [facility] [place] [phone] Myesha Cavanaugh MD [address] [facility] [place] [address] Scheduled Procedures Name Priority Associated Diagnoses Date/Ti [...] this encounter Medical Devices Implanted Type Area Canal Structure Operator Device Identifier Shelf Expiration Date Model / Serial / Lot Vitoss Bimodal Foam Pack 10cc - [id number] Implanted:Qty : 2 on 10/11/2017 by Rosendo Nathan, DO at [facility] N/A: Spine Lumbar SARAH : SPINE 03/08/2019 / / [id number] Vitoss Bimodal Foam Pack 10cc - [id number] Implanted:Qty : 1 on 10/11/2017 by Rosendo Nathan, DO at [facility] N/A: Spine Lumbar SARAH : SPINE 02/05/2019 / / [id number] Screw Audie Bina 3 Ti Set - [id number] Implanted:Qty : 4 on 10/11/2017 by Rosendo Nathan DO at [facility] N/A: Spine Lumbar SARAH : SPINE [id number] / / 6.5 X 50 Mm Serrate Screws Implanted:Qty : 2 on 10/11/2017 by Rosendo Nathan DO at [facility] N/A: Spine Lumbar SARAH : SPINE [id number] / / 6.5 X 45 Mm Serrate Screw Implanted:Qty : 2 on 10/11/2017 by Rosendo Nathan DO at [facility] N/A: Spine Lumbar SARAH : SPINE [id number] / / 9 X 23x 6 - 9mm Pl Implanted:Qty : 1 on 10/11/2017 by Rosendo Nathan DO at [facility] N/A: Spine Lumbar SARAH : SPINE [id number] / / Shashank Bina 3 Ti 6x40mm - [id number] Implanted:Qty : 1 on 10/11/2017 by Rosendo Nathan DO at [facility] N/A: Spine Lumbar SARAH : SPINE [id number] / / Shashank Bina 3 Ti 6x45mm - [id number] Implanted:Qty : 1 on 10/11/2017 by Rosendo Nathan DO at [facility] N/A: Spine Lumbar SARAH : SPINE [id number] / / Stent Axios 18eay74kt - [id number] Implanted:Qty : 1 on 09/18/2024 by Omid Snell MD at [facility] [employer] : ENDOSCOPY [id number] 05/27/2026 [id number] / / [id number] documented as of this encounter Advance Directives * Full Code (Latest Code Status on File) Date Activated Date Inactivated Comments 10/11/2017 9:23 AM 10/13/2017 10:36 PM This order r eflects the patients wishes and were consensually agreed upon. Care Teams Director Of Casework Department Relationship Specialty Start Date End Date Myesha Cavanaugh MD [address] [place] [address] PCP - General Family Medicine 09/18/24 documented as of this encounter
--- OUTSIDE RECORDS SUMMARY | 2024-11-07 04:07 | External Medical Summary | Summary of Care ---
Author Name Unknown Organization [facility] Address [address] [facility] [place] [address] Phone [phone] Care Team Providers Care Foundry Tender Name Role Phone Myesha Cavanaugh MD Primary Care Provid er Encounter Details Date Type Department Care Team (Late st Contact Info) Description 09/30/2024 Population Health External Data Unspecified Department Allergies Active Allergy Reactions Criticality Noted Date Comments Amoxicillin 01/05/2017 thrush Latex 06/20/2013 Hives, rash and swelling Lisinopril 06/02/2023 COUGH Nickel Rash 12/03/2020 documented as of this encounter (statuses as of 09/30/2024) Medications Compressor NebulizerIndicati ons:Moderate persistent asthma without [...] the morning. 90 Tablet 3 4 Active hydrOXYzine HCl 50 MG Oral TabletIndications :Anxiety,Pruritus Take 1 Tablet by mouth every 6 hours as needed for Itching or Anxiety. 60 Tablet 5 4 Active Pregabalin 150 MG Oral Capsule (Lyrica)Indicatio ns:Spinal stenosis of lumbar region with neurogenic claudication Take 1 Capsule by mouth in the morning and 1 Capsule before bedtime. 60 Capsule 2 4 Active Omeprazole 20 MG Oral Capsule [...] MORNING 90 Tablet 1 4 Active Buprenorphine HCl 2 MG Sublingual Tablet Sublingual (Subutex) Place 1 Tablet under the tongue every 30 minutes as needed for Pain, Moderate or Pain, Severe for up to 3 doses. 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 Not [...] Ashley Suggs RN documented in this encounter Plan of Treatment Upcoming Encounters Date Type Department Care Team (Latest Contact Info) Description 5 6:20 PM EST Office Visit [facility] [address] [facility] [place] [phone] Myesha Cavanaugh MD [address] [facility] [place] [address] 5 10:30 AM EST Imaging Radiology [address] [place] [phone] 5 9:00 AM EST Hospital Encounter ENDO [facility], Endoscopy Room [facility] [address] [place] [place] [phone] Omid Snell MD [address] [place] [phone] 5 9:00 AM EST - 5 9:30 AM EST Surgery ENDO [facility], Endoscopy Room [facility] [address] [place] [phone] Omid Snell MD [address] [place] [address] ESOPHAGOGASTRODUODENOSCOPY (EGD), FLEXIBLE, TRANSORAL, DIAGNOSTIC 3:30 PM EST [facility]medicine [facility], [facility] [place] [address] [facility] [address] [place] [address] Scheduled Procedures Name Priority Associated Diagnoses Date/Ti [...] this encounter Medical Devices Implanted Type Area Commercial Drone Software Developer Device Identifier Shelf Expiration Date Model / Serial / Lot Vitoss Bimodal Foam Pack 10cc - [id number] Implanted:Qty : 2 on 10/11/2017 by Rosendo Nathan DO at [facility] N/A: Spine Lumbar SARAH : SPINE 03/08/[id number] / / [id number] Vitoss Bimodal Foam Pack 10cc - [id number] Implanted:Qty : 1 on 10/11/2017 by Rosendo Nathan DO at [facility] N/A: Spine Lumbar SARAH : SPINE 02/05/[id number] / / [id number] Screw Audie Bina 3 Ti Set - [id number] Implanted:Qty : 4 on 10/11/2017 by Rosendo Nathan DO at [facility] N/A: Spine Lumbar SARAH : SPINE [id number] / / 6.5 X 50 Mm Serrate Screws Implanted:Qty : 2 on 10/11/2017 by Rosendo Nathan DO at [facility] N/A: Spine Lumbar SARAH : SPINE [id number] / / 6.5 X 45 Mm Serrate Screw Implanted:Qty : 2 on 10/11/2017 by Rosendo Nathan DO at [facility] N/A: Spine Lumbar SARAH : SPINE [id number] / / 9 X 23x 6 - 9mm Pl Implanted:Qty : 1 on 10/11/2017 by Rosendo Nathan DO at [facility] N/A: Spine Lumbar SARAH : SPINE [id number] / / Shashank Bina 3 Ti 6x40mm - [id number] Implanted:Qty : 1 on 10/11/2017 by Rosendo Nathan DO at [facility] N/A: Spine Lumbar SARAH : SPINE [id number] / / Shashank Bina 3 Ti 6x45mm - [id number] Implanted:Qty : 1 on 10/11/2017 by Rosendo Nathan DO at [facility] N/A: Spine Lumbar SARAH : SPINE [id number] / / Stent Axios 80icx85ld - [id number] Implanted:Qty : 1 on 09/18/2024 by Omid Snell MD at [facility] [employer] : ENDOSCOPY [id number] 05/27/2026 [id number] / / [id number] documented as of this encounter Advance Directives * Full Code (Latest Code Status on File) Date Activated Date Inactivated Comments 10/11/2017 9:23 AM 10/13/2017 10:36 PM This order r eflects the patients wishes and were consensually agreed upon. Care Teams Foundry Tender Relationship Specialty Start Date End Date Myesha Cavanaugh MD [address] [place] [address] PCP - General Family Medicine 09/18/24 documented as of this encounter
--- OUTSIDE RECORDS SUMMARY | 2024-11-07 04:07 | External Medical Summary | Summary of Care ---
Author Name Unknown Organization [facility] Address [address] [facility] [place] [address] Phone [phone] Care Team Providers Care Oxygen Tank Filler Name Role Phone Myesha Cavanaugh MD Primary Care Provid er Reason for Visit * Reason Onset Date Comments Pre Cert/Prior Auth 10/01/2024 Encounter Details Date Type Department Care Team (Late st Contact Info) Description 10/01/[address] 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 Upon review of this prior authorization request, I verified [facility] is not delegated to complete prior authorizations for this medication. Forwarding request to appropriate location. Thank you, Spencer Singletary ([facility]) Event Specialist Product Demonstrator III [facility] Services ([facility]) 10/01/2024, 9:40 AM * Telephone Encounter - Staci Lopez PHARM Tech - 10/01/2024 9:36 AM EST Pharmacy calling to inform doctor that the patient's insurance will not pay for this medication without a completed prior authorization. Did confirm this information with the pharmacy. Pt's current insurance information is as follows: Patient name: Poppy Adhikari ID number: [id number] BIN number: [id number] PCN number: [id number] Group number: Subscriber name: Poppy Adhikari Primary or Secondary Insurance:Primary Medication: HYDROcodone-Acetaminophen 7.5-325 MG Oral Tablet Reason for Request: N/A Pharmacy and phone number: [facility] [address] [address] [address] [phone] Rx plan and phone number: [facility] Medicaid [id number] Is this a new medication for the patient? Yes What alternative medications does the pharmacy have in stock?: N/A Thank you, Staci Lopez, Director Human Services Director Human Services I [facility] Services ([facility]) 10/01/2024,9:37 AM documented in this encounter Plan of Treatment Upcoming Encounters Date Type Department Care Team (Latest Contact Info) Description 5 1:00 PM EST Telemedicine Psychology Diego Turner [address] [place] [phone] Niru Zee LCSW [address] [place] [phone] 5 3:00 PM EST Office Visit Orthopaedics [facility] [address] [place] [phone] Darrin Celestin MD [address] [place] [address] 5 10:30 AM EST Imaging Radiology [address] [place] [address] 5 9:00 AM EST Hospital Encounter ENDO O[facility], Endoscopy Room [facility] [address] [place] [address] Omid Snell MD [address] [place] [address] 5 9:00 AM EST - 5 9:30 AM EST Surgery ENDO [facility], Endoscopy Room [facility] [address] [place] [phone] Omid Snell MD [address] [place] [address] ESOPHAGOGASTRODUODENOSCOPY (EGD), FLEXIBLE, TRANSORAL, DIAGNOSTIC 5 3:30 PM EST Telemedicine Pharmacy, [facility] [address] [place] [address] [facility] [address] [place] [address] 5 3:00 PM EDT Laboratory Laboratory, Kendrick Griggs [address] [place] [phone] Lizzette Marks [address] [place] [address] 5 3:20 PM EDT Office Visit Family [facility], Kendrick [address] [place] [phone] Myesha Cavanaugh MD [address] [place] [address] Scheduled Procedures Name Priority Associated Diagnoses Date/Ti [...] 07/16/2013 DISCUSS TOBACCO CESSATION (REFER TO SMARTSET #4281) 01/06/2023 01/06/2022, 09/23/2021 DTap/Tdap Vaccines (2 - [...] encounter Medical Devices Implanted Type Area Chief Medical Technologist Device Identifier Shelf Expiration Date Model / Serial / Lot Vitoss Bimodal Foam Pack 10cc - [id number] Implanted:Qty : 2 on 10/11/2017 by Rosendo Nathan, DO at [facility] N/A: Spine Lumbar SARAH : SPINE 03/08/2019 / / [id number] Vitoss Bimodal Foam Pack 10cc - [id number] Implanted:Qty : 1 on 10/11/2017 by Rosendo Nathan, DO at [facility] N/A: Spine Lumbar SARAH : SPINE 02/05/2019 / / [id number] Screw Audie Bina 3 Ti Set - [id number] Implanted:Qty : 4 on 10/11/2017 by Rosendo Nathan, DO at [facility] N/A: Spine Lumbar SARAH : SPINE [id number] / / 6.5 X 50 Mm Serrate Screws Implanted:Qty : 2 on 10/11/2017 by Rosendo Nathan, DO at [facility] N/A: Spine Lumbar SARAH : SPINE [id number] / / 6.5 X 45 Mm Serrate Screw Implanted:Qty : 2 on 10/11/2017 by Rosendo Nathan, DO at [facility] N/A: Spine Lumbar SARAH : SPINE [id number] / / 9 X 23x 6 - 9mm Pl Implanted:Qty : 1 on 10/11/2017 by Rosendo Nathan DO at [facility] N/A: Spine Lumbar SARAH : SPINE [id number] / / Shashank Bina 3 Ti 6x40mm - [id number] Implanted:Qty : 1 on 10/11/2017 by Rosendo Nathan, DO at [facility] N/A: Spine Lumbar SARAH : SPINE [id number] / / Shashank Bina 3 Ti 6x45mm - [id number] Implanted:Qty : 1 on 10/11/2017 by Rosendo Nathan DO at [facility] N/A: Spine Lumbar SARAH : SPINE [id number] / / Stent Axios [id number] - [id number] Implanted:Qty : 1 on 09/18/2024 by Omid Snell MD at OR [facility] [employer] : ENDOSCOPY [id number] 05/27/2026 [id number] / / [id number] documented as of this encounter Advance Directives * Full Code (Latest Code Status on File) Date Activated Date Inactivated Comments 10/11/2017 9:23 AM 10/13/2017 10:36 PM This order r eflects the patients wishes and were consensually agreed upon. Care Teams Oxygen Tank Filler Relationship Specialty Start Date End Date Myesha Cavanaugh MD [address] [place] [address] PCP - General Family Medicine 09/18/24 documented as of this encounter
--- OUTSIDE RECORDS SUMMARY | 2024-11-07 04:07 | External Medical Summary | Summary of Care ---
Author Name Unknown Organization [facility] Address [address] [facility] [place] [address] Phone [phone] Care Team Providers Care Concrete Batcher Name Role Phone Myesha Cavanaugh MD Primary Care Provid er Reason for Visit * Reason Onset Date Comments Pre Cert/Prior Auth 10/01/2024 Encounter Details Date Type Department Care Team (Late st Contact Info) Description 10/01[facility]2024 [facility] [place] [address] Myesha Cavanaugh MD 226 [...] :Spinal stenosis of lumbar region with neurogenic claudication,Fruit And Vegetable Packer navneet left shoulder pain Take 1 Tablet [...] 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 Upon review of this prior authorization request, I verified [facility] is not delegated to complete prior authorizations for this medication. Forwarding request to appropriate location. Thank you, Spencer Singletary ([facility]) Optical Engineering Technician III [facility] ([facility]) 10/01/2024, 9:40 AM * Telephone Encounter - Staci Lopez PHARM Tech - 10/01/2024 9:36 AM EST Pharmacy calling to inform doctor that the patient's insurance will not pay for this medication without a completed prior authorization. Did confirm this information with the pharmacy. Pt's current insurance information is as follows: Patient name: Poppy Adhikari ID number: [id number] BIN number: [id number] PCN number: [id number] Group number: Subscriber name: Poppy Adhikari Primary or Secondary Insurance:Primary Medication: HYDROcodone-Acetaminophen 7.5-325 MG Oral Tablet Reason for Request: N/A Pharmacy and phone number: [facility] [address] [phone] Rx plan and phone number: Ghp Medicaid [id number] Is this a new medication for the patient? Yes What alternative medications does the pharmacy have in stock?: N/A Thank you, Staci Lopez, Wildlife Control Operator Wildlife Control Operator I [facility] ([facility]) 10/01/2024,9:37 AM documented in this encounter Plan of Treatment Upcoming Encounters Date Type Department Care Team (Latest Contact Info) Description 5 1:00 PM EST Telemedicine Psychology Diego Turner [address] [place] [phone] Niru Zee LCSW [address] [place] [address] 5 3:00 PM EST Office Visit Orthopaedics [facility] [address] [place] [address] Darrin Celestin MD [address] [place] [address] 5 10:30 AM EST Imaging Radiology [address] [place] [address] 5 9:00 AM EST Hospital Encounter ENDO [facility], Endoscopy Room [facility] [address] [place] [address] Omid Snell MD [address] [place] [address] 5 9:00 AM EST - 5 9:30 AM EST Surgery ENDO [facility], Endoscopy Room [facility] [address] [place] [address] Omid Snell MD [address] [place] [address] ESOPHAGOGASTRODUODENOSCOPY (EGD), FLEXIBLE, TRANSORAL, DIAGNOSTIC 5 3:30 PM EST Telemedicine Pharmacy, [facility] [address] [place] [address] [facility] [address] [place] [address] 5 3:00 PM EDT Laboratory Laboratory, Kendrick Griggs [address] [place] [phone] Lizzette Marks [address] [place] [address] 5 3:20 PM EDT Office Visit Family [facility], Kendrick Matias [address] [place] [phone] Myesha Cavanaugh MD [address] [place] [address] Scheduled Procedures Name Priority Associated Diagnoses Date/Ti [...] this encounter Medical Devices Implanted Type Area Parer Device Identifier Shelf Expiration Date Model / Serial / Lot Vitoss Bimodal Foam Pack 10cc - [id number] Implanted:Qty : 2 on 10/11/2017 by Rosendo Nathan DO at [facility] N/A: Spine Lumbar SARAH : SPINE 03/08/2019 / / [id number] Vitoss Bimodal Foam Pack 10cc - [id number] Implanted:Qty : 1 on 10/11/2017 by Rosendo Nathan DO at [facility] N/A: Spine Lumbar SARAH : SPINE 02/05/2019 / / [id number] Screw Audie Bina 3 Ti Set - [id number] Implanted:Qty : 4 on 10/11/2017 by Rosendo Nathan DO at [facility] N/A: Spine Lumbar SARAH : SPINE [id number] / / 6.5 X 50 Mm Serrate Screws Implanted:Qty : 2 on 10/11/2017 by Rosendo Nathan DO at [facility] N/A: Spine Lumbar SARAH : SPINE [id number] / / 6.5 X 45 Mm Serrate Screw Implanted:Qty : 2 on 10/11/2017 by Rosendo Nathan DO at [facility] N/A: Spine Lumbar SARAH : SPINE [id number] / / 9 X 23x 6 - 9mm Pl Implanted:Qty : 1 on 10/11/2017 by Rosendo Nathan DO at [facility] N/A: Spine Lumbar SARAH : SPINE [id number] / / Shashank Bina 3 Ti 6x40mm - [id number] Implanted:Qty : 1 on 10/11/2017 by Rosendo Nathan, DO at [facility] N/A: Spine Lumbar SARAH : SPINE [id number] / / Shashank Bina 3 Ti 6x45mm - [id number] Implanted:Qty : 1 on 10/11/2017 by Rosendo Nathan, DO at [facility] N/A: Spine Lumbar SARAH : SPINE [id number] / / Stent Axios 25ekx99zk - [id number] Implanted:Qty : 1 on 09/18/2024 by Omid Snell MD at OR [facility] [employer] : ENDOSCOPY [id number] 05/27/2026 [id number] / / [id number] documented as of this encounter Advance Directives * Full Code (Latest Code Status on File) Date Activated Date Inactivated Comments 10/11/2017 9:23 AM 10/13/2017 10:36 PM This order r eflects the patients wishes and were consensually agreed upon. Care Teams Concrete Batcher Relationship Specialty Start Date End Date Myesha Cavanaugh MD [address] [place] [phone] PCP - General Family Medicine 09/18/24 documented as of this encounter
--- OUTSIDE RECORDS SUMMARY | 2024-11-07 04:07 | External Medical Summary | Summary of Care ---
Author Name Unknown Organization [facility] Address [address] [facility] [place] [address] Phone [phone] Care Team Providers Care Systems Software Engineer Name Role Phone Олег Cavanaugh MD Primary Care Provid er Reason for Visit * Reason Comments eRx-Medication Refill Encounter Details Date Type Department Care Team (Late st Contact Info) Description 09/28/2024 Refill [facility] [address] [facility] [facility] [place] [phone] Олег Cavanaugh MD 226 [facility] [place], [place] [id number] Chronic cough Allergies Active Allergy Reactions Criticality Noted Date [...] 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 * Telephone Encounter - Marilynn Dasilva [facility] - 09/29/2024 3:42 PM EST Pharmacists cannot authorize refills for meds listed as "historical" in chart. Please approve if appropriate. Pending Prescriptions: Disp Refills Montelukast Sodium 10 MG Oral Tablet 90 Tab*0 Sig: Take 1 Tablet by mouth at bedtime. Last Visit: Visit date not found (in office), Visit date not found (telemedicine) Next Visit: 09/30/2024 If no future appointments scheduled, and last appointment is greater than a year ago, please schedule patient for a follow-up appointment Last date the medication was ordered: 09/01/2023 (last refill 05/17/2024) Pharmacy: [facility] [address] [address] [place] [place] Is this request for a controlled substance? No Urine Drug Screen: Results for orders placed or performed in [...] results can be found in Results Review. Patient Phone Numbers Labs: Lab Results Component Value Date/Time CREAT 0.7 12/31/2023 05:40 AM CREAT 0.89 11/28/2023 12:29 PM CREAT 1.2 (H) 09/17/2020 10:53 AM POTASSIUM 4.1 12/31/2023 05:40 AM POTASSIUM 4.1 11/28/2023 12:29 PM POTASSIUM 4.5 09/17/2020 10:53 AM TSH 0.30 09/01/2023 01:04 PM TSH 0.78 09/17/2020 10:53 AM LDL 66 05/11/2022 11:00 AM ALT 9 11/28/2023 12:29 PM ALT 43 (H) 09/17/2020 10:53 AM HGBA1C 4.2 (L) 11/28/2023 12:29 PM Thank you, Marilynn Dasilva, PharmD Clinical Pharmacist [facility] 09/29/2024, 3:42 PM documented in this encounter Plan of Treatment Upcoming Encounters Date Type Department Care Team (Latest Contact Info) Description 6:20 PM EST [facility] [place] [address] [place] [phone] Олег Cavanaugh MD [address] [place] [address] 5 10:30 AM EST Imaging Radiology [address], [place] [address] [place] [phone] 5 9:00 AM EST Hospital Encounter ENDO [facility], Endoscopy Room [facility] [address] [place] [phone] Omid Snell MD [address] [place] [address] 5 9:00 AM EST - 5 9:30 AM EST Surgery ENDO [facility], Endoscopy Room [facility] [address] [place] [phone] Omid Snell MD [address] [place] [address] ESOPHAGOGASTRODUODENOSCOPY (EGD), FLEXIBLE, TRANSORAL, DIAGNOSTIC 5 3:30 PM EST Telemedicine Pharmacy, [facility] [address] [place] [address] [facility] [address] [place] [address] Scheduled Procedures Name Priority Associated Diagnoses Date/Ti [...] this encounter Medical Devices Implanted Type Area Tank Farm Operator Device Identifier Shelf Expiration Date Model / Serial / Lot Vitoss Bimodal Foam Pack 10cc - [id number] Implanted:Qty : 2 on 10/11/2017 by Rosendo Nathan DO at [facility] N/A: Spine Lumbar SARAH : SPINE 03/08/2019 / / [id number] Vitoss Bimodal Foam Pack 10cc - [id number] Implanted:Qty : 1 on 10/11/2017 by Rosendo Nathan DO at [facility] N/A: Spine Lumbar SARAH : SPINE 02/05/2019 / / [id number] Screw Audie Bina 3 Ti Set - [id number] Implanted:Qty : 4 on 10/11/2017 by Rosendo Nathan DO at [facility] N/A: Spine Lumbar SARAH : SPINE [id number] / / 6.5 X 50 Mm Serrate Screws Implanted:Qty : 2 on 10/11/2017 by Rosendo Nathan DO at [facility] N/A: Spine Lumbar SARAH : SPINE [id number] / / 6.5 X 45 Mm Serrate Screw Implanted:Qty : 2 on 10/11/2017 by Rosendo Nathan DO at [facility] N/A: Spine Lumbar SARAH : SPINE [id number] / / 9 X 23x 6 - 9mm Pl Implanted:Qty : 1 on 10/11/2017 by Rosendo Nathan DO at [facility] N/A: Spine Lumbar SARAH : SPINE [id number] / / Shashank Bina 3 Ti 6x40mm - [id number] Implanted:Qty : 1 on 10/11/2017 by Rosendo Nathan DO at [facility] N/A: Spine Lumbar SARAH : SPINE [id number] / / Shashank Bina 3 Ti 6x45mm - [id number] Implanted:Qty : 1 on 10/11/2017 by Rosendo Nathan DO at [facility] N/A: Spine Lumbar SARAH : SPINE [id number] / / Stent Axios [id number] - [id number] Implanted:Qty : 1 on 09/18/2024 by Omid Snell MD at OR [facility] : ENDOSCOPY [id number] 05/27/2026 [id number] / / [id number] documented as of this encounter Visit Diagnoses Diagnosis Chronic cough Cough Pseudocyst of pancreas Cyst and pseudocyst of pancreas documented in this encounter Advance Directives * Full Code (Latest Code Status on File) Date Activated Date Inactivated Comments 10/11/2017 9:23 AM 10/13/2017 10:36 PM This order r eflects the patients wishes and were consensually agreed upon. Care Teams Systems Software Engineer Relationship Specialty Start Date End Date Олег Cavanaugh MD [address] [place] [address] PCP - General Family Medicine 09/18/24 documented as of this encounter
--- OUTSIDE RECORDS SUMMARY | 2024-11-07 04:07 | External Medical Summary | Summary of Care ---
Author Name Unknown Organization [facility] Address [address] [facility] [place] [address] Phone [phone] Care Team Providers Care Novelties Sales Representative Name Role Phone Myesha Cavanaugh MD Primary Care Provid er Reason for Visit * Reason Onset Date Comments Pre Cert/Prior Auth 10/01/2024 Encounter Details Date Type Department Care Team (Late st Contact Info) Description 10/01/2024 [facility] [place] [address] [facility] [place] [phone] Myesha Cavanaugh MD 226 [facility] [place] [address] Pre Cert/Prior Auth [...] :Spinal stenosis of lumbar region with neurogenic claudication,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 Please call Yady at [facility] [phone] Please advise Thank you, Dorene Rascon, [facility] Automotive Internet Sales Manager II [facility]ized [facility] Pharmacy Services([facility]) 10/01/2024,2:43 PM * Telephone Encounter - Sydnie Craft LPN - 10/01/2024 1:59 PM EST Prior auth submitted for [facility]uprenorphine patches [facility], access hubbard is [id number] * Telephone Encounter - Blaire Venegas LPN - 10/01/2024 10:24 AM EST Prior auth was started with [facility] for Hydrocodone-acetaminophen 7.5 -325 mg Hubbard # [id number] * Telephone Encounter - Jeison Singletary CPhT - 10/01/2024 9:40 AM EST This is a new PA request. Upon review of this prior authorization request, I verified [facility] is not delegated to complete prior authorizations for this medication. Forwarding request to appropriate location. Thank you, Spencer Singletary ([facility]) Automotive Internet Sales Manager III [facility] Pharm[facility] Services ([facility]) 10/01/2024, 9:40 AM * Telephone Encounter - Staci Lopez PHARM Tech - 10/01/2024 9:36 AM EST Pharmacy calling to inform doctor that the patient's insurance will not pay for this medication without a completed prior authorization. Did confirm this information with the pharmacy. Pt's current insurance information is as follows: Patient name: Poppy Adhikari ID number: [id number] BIN number: [id number] PCN number: [id number] Group number: Subscriber name: Poppy Adhikari Primary or Secondary Insurance:Primary Medication: HYDROcodone-Acetaminophen 7.5-325 MG Oral Tablet Reason for Request: N/A Pharmacy and phone number: [facility] [address] [place] [address] Rx plan and phone number: Ghp Medicaid [id number] Is this a new medication for the patient? Yes What alternative medications does the pharmacy have in stock?: N/A Thank you, Staci Lopez, Mangle Catcher Mangle Catcher I [facility] ([facility]) 10/01/2024,9:37 AM documented in this encounter Plan of Treatment Upcoming Encounters Date Type Department Care Team (Latest Contact Info) Description 5 1:00 PM EST Telemedicine Psychology Diego Turner [address] [place] [address] Niru Zee LCSW [address] [place] [address] 5 3:00 PM EST Office Visit Orthopaedics [facility] [address] [place] [phone] Darrin Celestin MD [address] [place] [address] 5 10:30 AM EST Imaging Radiology [address] [place] [address] 5 9:00 AM EST Hospital Encounter ENDO [facility], Endoscopy Room [facility] [address] [place] [address] Omid Snell MD [address] [place] [address] 5 9:00 AM EST - 5 9:30 AM EST Surgery ENDO [facility], Endoscopy Room [facility] [address] [place] [address] Omid Snell MD [address] [place] [address] ESOPHAGOGASTRODUODENOSCOPY (EGD), FLEXIBLE, TRANSORAL, DIAGNOSTIC 5 3:30 PM EST Telemedicine Pharmacy, [facility] [address] [place] [address] [facility] [address] [place] [address] 5 3:00 PM EDT Laboratory Laboratory, Kendrick Padilla [place] [address] Lizzette Marks [address] [place] [address] 5 3:20 PM EDT Office Visit Family Practice, Kendrick Padilla [place] [address] Myesha Cavanaugh MD [address] [place] [id number] Scheduled Procedures Name Priority Associated Diagnoses Date/Ti [...] 07/16/2013 DISCUSS TOBACCO CESSATION (REFER TO SMARTSET #8121) 01/06/2023 01/06/2022, 09/23/2021 DTap/Tdap Vaccines (2 - [...] this encounter Medical Devices Implanted Type Area Fashion Coordinator Device Identifier Shelf Expiration Date Model / Serial / Lot Vitoss Bimodal Foam Pack 10cc - [id number] Implanted:Qty : 2 on 10/11/2017 by Rosendo Nathan DO at [facility] N/A: Spine Lumbar SARAH : SPINE 03/08/2019 / / [id number] Vitoss Bimodal Foam Pack 10cc - [id number] Implanted:Qty : 1 on 10/11/2017 by Rosendo Nathan DO at [facility] N/A: Spine Lumbar SARAH : SPINE 02/05/2019 / / [id number] Screw Audie Bina 3 Ti Set - [id number] Implanted:Qty : 4 on 10/11/2017 by Rosendo Nathan DO at [facility] N/A: Spine Lumbar SARAH : SPINE [id number] / / 6.5 X 50 Mm Serrate Screws Implanted:Qty : 2 on 10/11/2017 by Rosendo Nathan DO at [facility] N/A: Spine Lumbar SARAH : SPINE [id number] / / 6.5 X 45 Mm Serrate Screw Implanted:Qty : 2 on 10/11/2017 by Rosendo Nathan, at [facility] N/A: Spine Lumbar SARAH : SPINE [id number] / / 9 X 23x 6 - 9mm Pl Implanted:Qty : 1 on 10/11/2017 by Rosendo Nathan, at [facility] N/A: Spine Lumbar SARAH : SPINE [id number] / / Shashank Bina 3 Ti 6x40mm - [id number] Implanted:Qty : 1 on 10/11/2017 by Rosendo Nathan, at [facility] N/A: Spine Lumbar SARAH : SPINE [id number] / / Shashank Bina 3 Ti 6x45mm - [id number] Implanted:Qty : 1 on 10/11/2017 by Rosendo Nathan, at [facility] N/A: Spine Lumbar SARAH : SPINE [id number] / / Stent Axios [id number] - [id number] Implanted:Qty : 1 on 09/18/2024 by Omid Snell MD at OR [facility] : ENDOSCOPY [id number] 05/27/2026 [id number] / / [id number] documented as of this encounter Advance Directives * Full Code (Latest Code Status on File) Date Activated Date Inactivated Comments 10/11/2017 9:23 AM 10/13/2017 10:36 PM This order r eflects the patients wishes and were consensually agreed upon. Care Teams Novelties Sales Representative Relationship Specialty Start Date End Date Myesha Cavanaugh MD [address] [place] [address] PCP - General Family Medicine 09/18/24 documented as of this encounter
--- OUTSIDE RECORDS SUMMARY | 2024-11-07 04:07 | External Medical Summary | Summary of Care ---
Author Name Unknown Organization [facility] Address [address] [facility] [place] [address] Phone [phone] Care Team Providers Care Warehouse Coordinator Name Role Phone Myesha Cavanaugh MD Primary Care Provid er Reason for Visit * Reason Onset Date Comments New Med Request 09/19/2024 Encounter Details Date Type Department Care Team (Late st Contact Info) Description 09/19/2024 Telephone Pharmacy, [facility] [address] [facility] [place] [id number] [address] 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 Use [...] daily 90 Tablet 1 04/15/20 24 Active FLUoxetine HCl 40 MG Oral Capsule (PROzac)Indicati ons:Major depressive disorder with single episode, in full remission (HCC) Take 1 capsule by mouth in the morning 90 Capsule 1 04/18/20 24 Active Albuterol Sulfate HFA 108 (90 [...] morning. 90 Tablet 3 05/28/20 24 Active hydrOXYzine HCl 50 MG Oral TabletIndication s:Anxiety,Prurit us Take 1 Tablet by mouth every 6 hours as needed for Itching or Anxiety. 60 Tablet 5 05/28/20 24 Active Pregabalin 150 MG Oral Capsule (Lyrica)Indicati ons:Spinal stenosis of lumbar region with neurogenic claudication Take 1 Capsule by mouth in the morning and 1 Capsule before bedtime. 60 Capsule 2 05/28/20 24 Active Omeprazole 20 MG Oral [...] 90 Tablet 1 08/01/20 24 Active Buprenorphine HCl 2 MG Sublingual Tablet Sublingual (Subutex) Place 1 Tablet under the tongue every 30 minutes as needed for Pain, Moderate or Pain, Severe for up to 3 doses. 3 Tablet 09/18/19 25 Active Buprenorphine HCl 2 MG Sublingual Tablet Sublingual (Subutex) Dissolve 1 tablet under the tongue every 30 minutes as needed for moderate or severe pain for up to 3 doses 3 Tablet 5 1:23 PM EST 09/18/19 25 Active Ciprofloxacin HCl 500 MG Oral Tablet (Cipro) Take 1 Tablet by mouth in the morning and 1 Tablet before bedtime. Do all this for 5 days. 10 Tablet 09/18/19 25 025 Active metroNIDAZOLE 500 MG Oral Tablet (Flagyl) Take 1 Tablet by mouth in the morning and 1 Tablet before bedtime. Do all this for 5 days. 10 Tablet 09/18/19 25 025 Active Buprenorphine 10 MCG/HR Transdermal Patch Weekly (Butrans)Indicat ions:Spinal stenosis of lumbar region with neurogenic claudication,Sac roiliac joint pain,Lumbar radiculitis,Hist ory of lumbar fusion Place 1 Patch over 7 days topically on the skin once a week. Do not start before September 24, 2024. 4 Patch 5 09/24/19 25 Active Buprenorphine 7.5 MCG/HR Transdermal Patch Weekly (Butrans)Indicat ions:Spinal stenosis of lumbar region with neurogenic claudication Place 7.5 mcg/hr topically on the skin once a week. 4 Patch 2 06/28/20 24 025 Discontinued documented as of this encounter (statuses as of 09/20/2024) Active Problems Problem Noted Date Diagnosed Date [...] as of this encounter (statuses as of 09/20/2024) Resolved Problems Problem Noted Date Diagnosed Date Resolved Date Food insecurity 04/19/2021 08/26/2021 Overview: Per [facility] Protocol Asthma exacerbation 03/30/2015 07/07/20 17 Moderate persistent asthma 11/09/2014 0 03/30/2015 Overview (11/13/2014): PFT Pneumonitis 07/24/2014 01/06/2022 Asthma exacerbation 07/24/2014 03/30/20 15 documented as of this encounter (statuses as of 09/20/2024) Immunizations Name Administration Dates Next Due PPD [...] 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 Recommending increase in butrans patch. Prescription pended for your approval. Thank you, Lisbeth Odonnell, Pharm D, BCACP Clinical Pharmacist 09/19/2024, 3:51 PM documented in this encounter Plan of Treatment Upcoming Encounters Date Type Department Care Team (Latest Contact Info) Description 5 6:20 PM EST Office [facility] [address] [place] [phone] Myesha Cavanaugh MD [address] [place] [address] 5 10:30 AM EST Imaging Radiology [address] [place] [phone] 5 9:00 AM EST Hospital Encounter ENDO [facility], Endoscopy Room [facility] [address] [place] [phone] Omid Snell MD [address] [place] [address] 5 9:00 AM EST - 5 9:30 AM EST Surgery ENDO [facility], Endoscopy Room [facility] [address] [place] [phone] Omid Snell MD [address] [place] [address] ESOPHAGOGASTRODUODENOSCOPY (EGD), FLEXIBLE, TRANSORAL, DIAGNOSTIC 5 3:30 PM EST Telemedicine Pharmacy, [facility] [address] [place] [address] [facility] [address] [place] [address] Scheduled Procedures Name Priority Associated Diagnoses Date/Ti [...] encounter Medical Devices Implanted Type Area Machine Maintenance Servicer Device Identifier Shelf Expiration Date Model / Serial / Lot Vitoss Bimodal Foam Pack 10cc - [id number] Implanted:Qty : 2 on 10/11/2017 by Rosendo Nathan DO at [facility] N/A: Spine Lumbar SARAH : SPINE 03/08/2019 / / [id number] Vitoss Bimodal Foam Pack 10cc - [id number] Implanted:Qty : 1 on 10/11/2017 by Rosendo Nathan DO at [facility] N/A: Spine Lumbar SARAH : SPINE 02/05/2019 / / [id number] Screw Audie Bina 3 Ti Set - [id number] Implanted:Qty : 4 on 10/11/2017 by Rosendo Nathan DO at [facility] N/A: Spine Lumbar SARAH : SPINE [id number] / / 6.5 X 50 Mm Serrate Screws Implanted:Qty : 2 on 10/11/2017 by Rosendo Nathan DO at [facility] N/A: Spine Lumbar SARAH : SPINE [id number] / / 6.5 X 45 Mm Serrate Screw Implanted:Qty : 2 on 10/11/2017 by Roesndo Nathan DO at [facility] N/A: Spine Lumbar SARAH : SPINE [id number] / / 9 X 23x 6 - 9mm Pl Implanted:Qty : 1 on 10/11/2017 by Rosendo Nathan DO at [facility] N/A: Spine Lumbar SARAH : SPINE [id number] / / Shashank Bina 3 Ti 6x40mm - [id number] Implanted:Qty : 1 on 10/11/2017 by Rosendo Nathan DO at [facility] N/A: Spine Lumbar SARAH : SPINE [id number] / / Shashank Bina 3 Ti 6x45mm - [id number] Implanted:Qty : 1 on 10/11/2017 by Rosendo Nathan DO at [facility] N/A: Spine Lumbar SARAH : SPINE [id number] / / Stent Axios 51fqd16re - [id number] Implanted:Qty : 1 on 09/18/2024 by Omid Snell MD at OR [facility] : ENDOSCOPY [id number] 05/27/2026 [id number] / / [id number] documented as of this encounter Visit Diagnoses Diagnosis Spinal stenosis of lumbar region with neurogenic claudication- Primary Spinal stenosis, lumbar region, with neurogenic claudication Sacroiliac joint pain Disorders of sacrum Lumbar radiculitis Thoracic or lumbosacral neuritis or radiculitis, unspecified History of lumbar fusion Pseudocyst of pancreas Cyst and pseudocyst of pancreas documented in this encounter Advance Directives * Full Code (Latest Code Status on File) Date Activated Date Inactivated Comments 10/11/2017 9:23 AM 10/13/2017 10:36 PM This order r eflects the patients wishes and were consensually agreed upon. Care Teams Warehouse Coordinator Relationship Specialty Start Date End Date Myesha Cavanaugh MD [address] [place] [address] PCP - General Family Medicine 09/18/24 documented as of this encounter
--- OUTSIDE RECORDS SUMMARY | 2024-11-07 04:07 | External Medical Summary | Summary of Care ---
Author Name Unknown Organization [facility] Address [address] [facility] [place] [address] Phone [phone] Care Team Providers Care Order Filler Name Role Phone Myesha Cavanaugh MD Primary Care Provid er Reason for Referral * Evaluate & Treat - Unlimited Visits (Within 10 days (routine)) - Pending Review Specialty Diagnoses / Procedures Referred By Jun garay Referred To Contact Psychiatry Diagnoses Anxiety Cluster B personality disorder (HCC) History of alcohol abuse History of psychological trauma Myesha Cavanaugh MD [address] [place] [address] Phone: tel: fax: Referral ID Status Reason Start Date Expiration Date Visits Requested Visits Authorized [id number] Pending Review Specialty Services Required 09/30/2024 999 [...] pain Myesha Cavanaugh MD [address] [place] [address] Phone: tel: fax: Referral ID Status Reason Start Date Expiration Date Visits Requested Visits Authorized [id number] Pending Review Specialty Services Required 09/30/2024 999 [...] Description 09/30/2024 6:20 PM EST 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 ([facility]); COPD, moderate ([facility]); Major depressive disorder with single episode, in full remission ([facility]); Essential (primary) hypertension; Alcohol abuse, uncomplicated; Cluster B personality disorder (HCC); Chronic left shoulder pain; History of alcohol abuse; History of psychological trauma; Fatigue, unspecified type Allergies Active Allergy Reactions Criticality Noted Date Comments Amoxicillin 01/05/2017 thrush Latex 06/20/2013 Hives, rash and swelling Lisinopril 06/02/2023 COUGH Nickel Rash 12/03/2020 documented as of this encounter (statuses as of 10/01/2024) Medications Compressor NebulizerIndicat ions:Moderate persistent asthma without complication,VP DIRECTOR OF FINANCE D, 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 Use [...] No 05/16/2024 Does the household have a [facility] source [facility] income? 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 Need for kawduowccq-znshkij-bvwdsxuyq (Tdap) vaccine - COMPREHENSIVE METABOLIC PANEL; Future; [...] disorder with single episode, in full remission ([facility]) Gastroesophageal reflux disease without esophagitis History of lumbar fusion Spinal stenosis of lumbar region with neurogenic claudication COPD, 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) Essential (primary) hypertension Severe tobacco dependence in early remission Microcytic anemia Microcytic anemia Sacroiliac joint pain Alcohol use disorder, severe, in early remission ([facility]) MGUS (monoclonal gammopathy of unknown significance) Age-related nuclear cataract, left eye 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 Myesha Cavanaugh MD [address] [phone] Patient Instructions documented in this encounter Nursing [...] 5 3:00 PM EST Office Visit Orthopaedics [facility] [address] [place] [address] Darrin Celestin MD [address] [place] [phone] 5 10:30 AM EST Imaging Radiology [address] [place] [address] 5 9:00 AM EST Hospital Encounter ENDO [facility], Endoscopy Room [facility] [address] [place] [phone] Omid Snell MD [address] [place] [address] 5 9:00 AM EST - 5 9:30 AM EST Surgery ENDO [facility], Endoscopy Room [facility] [address] [place] [phone] Omid Snell MD [address] [place] [address] ESOPHAGOGASTRODUODENOSCOPY (EGD), FLEXIBLE, TRANSORAL, DIAGNOSTIC 5 3:30 PM EST Telemedicine Pharmacy, [facility] [address] [place] [address] [facility] [address] [place] [address] 5 3:00 PM EDT Laboratory Laboratory, [facility] [address] [place] [phone] Lizzette Marks [address] [place] [address] 5 3:20 PM EDT Office 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 (HCC) COPD, 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) Major depressive disorder with single episode, in full remission (HCC) Essential (primary) hypertension Alcohol abuse, uncomplicated Cluster B personality disorder (HCC) Expected: 09/30/2024 (Approximate), Expires: 09/30/2025 COMPREHENSIVE METABOLIC PANEL Lab Routine Need for rhyryfndda-qzrygdc-kngnf ssis (Tdap) vaccine Anxiety Pruritus Spinal stenosis [...] this encounter Medical Devices Implanted Type Area Robotic Weld Technician Device Identifier Shelf Expiration Date Model / Serial / Lot Vitoss Bimodal Foam Pack 10cc - [id number] Implanted:Qty : 2 on 10/11/2017 by Rosendo Nathan DO at [facility] N/A: Spine Lumbar SARAH : SPINE 03/08/2019 / / [id number] Vitoss Bimodal Foam Pack 10cc - [id number] Implanted:Qty : 1 on 10/11/2017 by Rosendo Nathan DO at [facility] N/A: Spine Lumbar SARAH : SPINE 02/05/2019 / / [id number] Screw Audie Bina 3 Ti Set - [id number] Implanted:Qty : 4 on 10/11/2017 by Rosendo Nathan DO at [facility] N/A: Spine Lumbar SARAH : SPINE [id number] / / 6.5 X 50 Mm Serrate Screws Implanted:Qty : 2 on 10/11/2017 by Rosendo Nathan DO at [facility] N/A: Spine Lumbar SARAH : SPINE [id number] / / 6.5 X 45 Mm Serrate Screw Implanted:Qty : 2 on 10/11/2017 by Rosendo Nathan DO at [facility] N/A: Spine Lumbar SARAH : SPINE [id number] / / 9 X 23x 6 - 9mm Pl Implanted:Qty : 1 on 10/11/2017 by Rosendo Nathan DO at [facility] N/A: Spine Lumbar SARAH : SPINE [id number] / / Shashank Bina 3 Ti 6x40mm - [id number] Implanted:Qty : 1 on 10/11/2017 by Rosendo Nathan DO at [facility] N/A: Spine Lumbar SARAH : SPINE [id number] / / Shashank Bina 3 Ti 6x45mm - [id number] Implanted:Qty : 1 on 10/11/2017 by Rosendo Nathan DO at [facility] N/A: Spine Lumbar SARAH : SPINE [id number] / / Stent Axios [id number] - [id number] Implanted:Qty : 1 on 09/18/2024 by Omid Snell MD at [facility] : ENDOSCOPY [id number] 05/27/2026 [id number] / / [id number] documented as of this encounter Visit Diagnoses Diagnosis Spinal stenosis of lumbar region with neurogenic claudication- Primary Spinal stenosis, lumbar region, with neurogenic claudication Need for edalazeugf-cbhinca-eybihukjj (Tdap) vaccine Need for prophylactic vaccination with combined uxdxobmuqq-fcxfxtg-qrczzunup (DTP) vaccine Anxiety Anxiety state, unspecified Pruritus [...] and were consensually agreed upon. Care Teams Order Filler Relationship Specialty Start Date End Date Myesha Cavanaugh MD [address] [place] [address] PCP - General Family Medicine 09/18/24 documented as of this encounter
--- OUTSIDE RECORDS SUMMARY | 2024-11-07 04:08 | External Medical Summary | Summary of Care ---
Author Name Unknown Organization [facility] Address [address] [facility] [place] [address] Phone [phone] Care Team Providers Care Propulsion Systems Engineer Name Role Phone Myesha Cavanaugh MD Primary Care Provid er Encounter Details Date Type Department Care Team (Late st Contact Info) Description 09/18/2024 Telephone Gastroenterology, [facility] [address] [place] [address] Omid Snell MD [address] [place] [address] Allergies Active Allergy Reactions Criticality Noted Date Comments Amoxicillin 01/05/2017 thrush Latex 06/20/2013 Hives, rash and swelling Lisinopril 06/02/2023 COUGH Nickel Rash 12/03/2020 documented as of this encounter (statuses as of 09/19/2024) Medications Compressor NebulizerIndicati ons:Moderate persistent asthma without [...] twice daily 60 Capsule 5 4 Active Buprenorphine 7.5 MCG/HR Transdermal Patch Weekly (Butrans)Indicati ons:Spinal stenosis of lumbar region with neurogenic claudication Place 7.5 mcg/hr topically on the skin once a week. 4 Patch 2 4 Active Fluticasone-Umecl idin-Vilant 100-62.5-25 MCG/ACT Aerosol [...] Tablet 09/18/2024 1:23 PM EST 5 Active Ciprofloxacin HCl 500 MG Oral Tablet (Cipro) Take 1 Tablet by mouth in the morning and 1 Tablet before bedtime. Do all this for 5 days. 10 Tablet 5 09/23/19 25 Active metroNIDAZOLE 500 MG Oral Tablet (Flagyl) Take 1 Tablet by mouth in the morning and 1 Tablet before bedtime. Do all this for 5 days. 10 Tablet 5 09/23/19 25 Active documented as of this encounter (statuses as of 09/19/2024) Active Problems Problem Noted Date Diagnosed Date [...] as of this encounter (statuses as of 09/19/2024) Resolved Problems Problem Noted Date Diagnosed Date Resolved Date Food insecurity 04/19/2021 08/26/2021 Overview: Per [facility] Protocol Asthma exacerbation 03/30/2015 07/07/20 17 Moderate persistent asthma 11/09/2014 0 03/30/2015 Overview (11/13/2014): PFT Pneumonitis 07/24/2014 01/06/2022 Asthma exacerbation 07/24/2014 03/30/20 15 documented as of this encounter (statuses as of 09/19/2024) Immunizations Name Administration Dates Next Due PPD [...] 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 Not [...] Team (Late st Contact Info) Description 09/19/2024 3:30 PM EST Telemedicine Pharmacy, [facility] [address] [place] [address] [facility] [address] [place] [address] 09/30/2024 6:20 PM EST [facility] [place] [address] [place] [phone] Myesha Cavanaugh MD [address] [place] [address] Scheduled Procedures Name Priority Associated Diagnoses Date/Ti [...] or Tdap) 06/20/2023 06/20/2013 Mammogram 01/18/2024 01/17/2023, 050 05/2023, 06/27/2013 COVID-19 Vaccine ( - season) [...] this encounter Medical Devices Implanted Type Area Mender Hand Device Identifier Shelf Expiration Date Model / Serial / Lot Vitoss Bimodal Foam Pack 10cc - [id number] Implanted:Qty : 2 on 10/11/2017 by Rosendo Nathan DO at [facility] N/A: Spine Lumbar SARAH : SPINE 03/08/2019 / / [id number] Vitoss Bimodal Foam Pack 10cc - [id number] Implanted:Qty : 1 on 10/11/2017 by Rosendo Nathan DO at [facility] N/A: Spine Lumbar SARAH : SPINE 02/05/2019 / / [id number] Screw Audie Bina 3 Ti Set - [id number] Implanted:Qty : 4 on 10/11/2017 by Rosendo Nathan DO at [facility] N/A: Spine Lumbar SARAH : SPINE [id number] / / 6.5 X 50 Mm Serrate Screws Implanted:Qty : 2 on 10/11/2017 by Rosendo Nathan DO at [facility] N/A: Spine Lumbar SARAH : SPINE [id number] / / 6.5 X 45 Mm Serrate Screw Implanted:Qty : 2 on 10/11/2017 by Rosendo Nathan DO at [facility] N/A: Spine Lumbar SARAH : SPINE [id number] / / 9 X 23x 6 - 9mm Pl Implanted:Qty : 1 on 10/11/2017 by Rosendo Nathan DO at [facility] N/A: Spine Lumbar SARAH : SPINE [id number] / / Shashank Bina 3 Ti 6x40mm - [id number] Implanted:Qty : 1 on 10/11/2017 by Rosendo Nathan DO at [facility] N/A: Spine Lumbar SARAH : SPINE [id number] / / Shashank Bina 3 Ti 6x45mm - [id number] Implanted:Qty : 1 on 10/11/2017 by Rosendo Nathan DO at [facility] N/A: Spine Lumbar SARAH : SPINE [id number] / / Stent Axios [id number] - [id number] Implanted:Qty : 1 on 09/18/2024 by Omid Snell MD at OR [facility] : ENDOSCOPY [id number] 05/27/2026 [id number] / / [id number] documented as of this encounter Advance Directives * Full Code (Latest Code Status on File) Date Activated Date Inactivated Comments 10/11/2017 9:23 AM 10/13/2017 10:36 PM This order r eflects the patients wishes and were consensually agreed upon. Care Teams Propulsion Systems Engineer Relationship Specialty Start Date End Date Myesha Cavanaugh MD [address] [place] [address] PCP - General Family Medicine 09/18/24 documented as of this encounter
--- OUTSIDE RECORDS SUMMARY | 2024-11-07 04:08 | External Medical Summary | Summary of Care ---
Author Name Unknown Organization [facility] Address [address] [facility] [place] [address] Phone [phone] Care Team Providers Care Roofing Technician Name Role Phone Myesha Cavanaugh MD Primary Care Provid er Encounter Details Date Type Department Care Team (Late st Contact Info) Description 08/26/2024 Telephone Gastroenterology, [facility] [address] [place] [address] Omid Snell MD [address] [place] [address] Allergies Active Allergy Reactions Criticality Noted Date Comments Amoxicillin 01/05/2017 thrush Latex 06/20/2013 Hives, rash and swelling Lisinopril 06/02/2023 COUGH Nickel Rash 12/03/2020 documented as of this encounter (statuses as of 09/02/2024) Medications Compressor NebulizerIndicat ions:Moderate persistent asthma without complication,CITY ASSESSOR D, 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 Use [...] dose 60mg.. 90 Capsule 1 4 Active amLODIPine Besylate 5 MG Oral Tablet (Norvasc)Indicat ions:HTN, goal below 140/90 TAKE 1 TABLET BY MOUTH IN THE MORNING 90 Tablet 1 4 Active Additional Information Patient not taking.Reported on 08/20/2024 Azithromycin 250 MG Oral Tablet (Zithromax)Indic ations:Bronchiti s, complicated Take 2 tabs by mouth on the first day, then 1 tab daily on days two through five 6 Tablet 4 Active Additional Information Patient not taking.Reported on 08/20/2024 Dulera 200-5 MCG/ACT Inhalation Aerosol (Mometasone-Form oterol)Indicatio ns:COPD, 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) Inhale 2 Puffs by mouth in the morning and 2 Puffs before bedtime. 13 g 11 4 Active Cyclobenzaprine HCl 5 MG Oral Tablet (Flexeril)Indica tions:Spasm of muscle TAKE 1 TABLET BY MOUTH THREE TIMES DAILY NEEDED FOR MUSCLE SPASM 60 Tablet 4 Active Albuterol Sulfate (2.5 MG/3ML) 0.083% [...] 4 Active hydrOXYzine HCl 50 MG Oral TabletIndication s:Anxiety,Prurit us Take 1 Tablet by mouth every 6 hours as needed for Itching or Anxiety. 60 Tablet 5 4 Active Pregabalin 150 MG Oral Capsule (Lyrica)Indicati [...] a week. 4 Patch 2 4 Active Fluticasone-Umec lidin-Vilant 100-62.5-25 MCG/ACT Aerosol Powder Breath Activated (Trelegy Ellipta)Indicati ons:COPD, 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) Inhale 1 Puff by mouth in the morning. 60 Blister Dosing Unit 5 4 Active traZODone HCl 50 MG Oral Tablet (Desyrel)Indicat ions:Major depressive disorder with single episode, in full remission (HCC) TAKE 1 TABLET BY MOUTH AT BEDTIME 90 Tablet 3 4 Active predniSONE 10 MG Oral Tablet (Deltasone)Indic ations:Bronchiti s, complicated Take 5 tabs for 2 days, 4 tabs for 2 days, 3 tabs for 2 days, 2 tabs for 2 days 1 tab for 2 days 30 Tablet 4 Active Additional Information Patient not taking.Reported on 08/20/2024 Losartan Potassium 50 MG Oral Tablet (Cozaar) TAKE 1 TABLET BY MOUTH IN THE MORNING 90 Tablet 1 4 Active documented as of this encounter (statuses as of 09/02/2024) Active Problems Problem Noted Date Diagnosed Date [...] as of this encounter (statuses as of 09/02/2024) Resolved Problems Problem Noted Date Diagnosed Date Resolved Date Food insecurity 04/19/2021 08/26/2021 Overview: Per [facility] Protocol Asthma exacerbation 03/30/2015 07/07/20 17 Moderate persistent asthma 11/09/2014 0 03/30/2015 Overview (11/13/2014): PFT Pneumonitis 07/24/2014 01/06/2022 Asthma exacerbation 07/24/2014 03/30/20 15 documented as of this encounter (statuses as of 09/02/2024) Immunizations Name Administration Dates Next Due PPD [...] 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 documented in this encounter Plan of Treatment Upcoming Encounters Date Type Department Care Team (Late st Contact Info) Description 09/16/2024 5:20 PM EST Office Visit Family Practice, [facility] [address] [place] [phone] Myesha Cavanaugh MD [address] [place] [address] 09/19/2024 3:30 PM EST Telemedicine Pharmacy, [facility] [address] [place] [address] [facility] [address] [place] [address] 09/30/2024 6:20 PM EST [facility] [address] [place] [phone] Myesha Cavanaugh MD [address] [place] [address] Scheduled Procedures Name Priority Associated Diagnoses Date/Ti [...] ASSESSMENT COMPLETED IN PAST YEAR FOR COPD 08/26/2025 08/26/2024 Depression Monitoring 08/29/2025 08/29/2024 Albumin/Creatinine Ratio 09/01/2026 09/01/2023 Lipid Panel 05/11/2027 05/11/2022 Colonoscopy 09/27/2033 09/27/2023 Colorectal Cancer Screening 09/27/2033 HPV (Gardasil) Vaccine Aged Out No lo nger eligible based on patient's age to complete this topic MENINGOCOCCAL (MENACTRA/MENVEO) Aged Out No longer eligible based on patient's age to complete this topic documented as of this encounter Medical Devices Implanted Type Area Financial Aid Director Device Identifier Shelf Expiration Date Model / Serial / Lot Vitoss Bimodal Foam Pack 10cc - [id number] Implanted:Qty : 2 on 10/11/2017 by [facility] N/A: Spine Lumbar SARAH : SPINE 03/08/2019 [id number] / / [id number] Vitoss Bimodal Foam Pack 10cc - [id number] Implanted:Qty : 1 on 10/11/2017 by Rosendo Nathan, DO at [facility] N/A: Spine Lumbar SARAH : SPINE 02/05/2019 [id number] / / [id number] Screw Audie Bina 3 Ti Set - [id number] Implanted:Qty : 4 on 10/11/2017 by Rosendo Nathan, at [facility] N/A: Spine Lumbar SARAH : SPINE [id number] / / 6.5 X 50 Mm Serrate Screws Implanted:Qty : 2 on 10/11/2017 by Rosendo Nathan DO at [facility] N/A: Spine Lumbar SARAH : SPINE [id number] / / 6.5 X 45 Mm Serrate Screw Implanted:Qty : 2 on 10/11/2017 by Rosendo Nathan DO at [facility] N/A: Spine Lumbar SARAH : SPINE [id number] / / 9 X 23x 6 - 9mm Pl Implanted:Qty : 1 on 10/11/2017 by Rosendo Nathan DO at [facility] N/A: Spine Lumbar SARAH : SPINE [id number] / / Shashank Bina 3 Ti 6x40mm - [id number] Implanted:Qty : 1 on 10/11/2017 by Rosendo Nathan DO at [facility] N/A: Spine Lumbar SARAH : SPINE [id number] / / Shashank Bina 3 Ti 6x45mm - [id number] Implanted:Qty : 1 on 10/11/2017 by Rosendo Nathan DO at [facility] N/A: Spine Lumbar SARAH : SPINE [id number] / / documented as of this encounter Advance Directives * Full Code (Latest Code Status on File) Date Activated Date Inactivated Comments 10/11/2017 9:23 AM 10/13/2017 10:36 PM This order r eflects the patients wishes and were consensually agreed upon. Care Teams Roofing Technician Relationship Specialty Start Date End Date Myesha Cavanaugh MD PCP - General Family Medicine 02/18/22 documented as of this encounter
--- OUTSIDE RECORDS SUMMARY | 2024-11-07 04:08 | External Medical Summary | Summary of Care ---
Author Name Unknown Organization [facility] Address [address] [facility] [place] [address] Phone [phone] Care Team Providers Care Music Education Adjunct Professor Name Role Phone Myesha Cavanaugh MD Primary Care Provid er Reason for Referral * Precert (Within 10 days (routine)) - Pending Review Specialty Diagnoses / Procedures Referred By Jun garay Referred To Contact Radiology Diagnoses Pseudocyst of pancreas Procedures CT ABD/PELVIS W IV AND W ORAL CONTRAST Omid Snell MD [address] [place] [address] Phone: tel: fax: Referral ID Status Reason Start Date Expiration Date V isits Requested Visits Authorized [id number] Pending Review 10/09/[phone] Encounter Details Date Type Department Care Team (Late st Contact Info) Description 09/18/2024 Telephone Gastroenterology, [facility] [address] [place] [address] Omid Snell MD [address] [address] Allergies Active Allergy Reactions Criticality Noted Date [...] and 2 Puffs before bedtime. 13 g 4 Active Albuterol Sulfate (2.5 MG/3ML) 0.083% Inhalation Nebulization Solution (Proventil)Indica tions:COPD, 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),Moderate persistent asthma without complication Inhale 1 Vial via nebulizer every 6 hours as needed for Wheezing. 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 documented in this encounter Plan of Treatment Upcoming Encounters Date Type Department Care Team (Late st Contact Info) Description 09/19/2024 3:30 PM EST Telemedicine Pharmacy, [facility] [address] [address] [facility] [address] [address] 09/30/2024 6:20 PM EST Office Visit [facility] [address] [phone] Myesha Cavanaugh MD [address] [facility] [address] Scheduled Orders Name Type Priority Associated Diagnoses Orde r Schedule EGD, FLEXIBLE, DIAGNOSTIC Procedures Routine Pseudocyst of pancreas Ordered: 09/18/2024 CT ABD/PELVIS W IV AND W ORAL CONTRAST Medical Imaging Routine Pseudocyst of pancreas Expected: 10/09/2024, Expires: 10/19/2025 CREATININE Lab Routine Pseudocyst of pancreas Expected: 09/18/2024, Expires: 09/18/2025 BUN Lab Routine Pseudocyst of pancreas Expected: 09/18/2024, Expires: 09/18/2025 Scheduled Procedures Name Priority Associated Diagnoses Date/Ti [...] this encounter Medical Devices Implanted Type Area Natural Resources Specialist Device Identifier Shelf Expiration Date Model / Serial / Lot Vitoss Bimodal Foam Pack 10cc - [id number] Implanted:Qty : 2 on 10/11/2017 by Rosendo Nathan, DO at [facility] N/A: Spine Lumbar SARAH : SPINE 03/08/2019 [id number] / / [id number] Vitoss Bimodal Foam Pack 10cc - [id number] Implanted:Qty : 1 on 10/11/2017 by Rosendo Nathan DO at [facility] N/A: Spine Lumbar SARAH : SPINE 02/05/2019 [id number] / / [id number] Screw Audie Bina 3 Ti Set - [id number] Implanted:Qty : 4 on 10/11/2017 by Rosendo Nathan DO at [facility] N/A: Spine Lumbar SARAH : SPINE [id number] / / 6.5 X 50 Mm Serrate Screws Implanted:Qty : 2 on 10/11/2017 by Rosendo Nathan DO at [facility] N/A: Spine Lumbar SARAH : SPINE [id number] / / 6.5 X 45 Mm Serrate Screw Implanted:Qty : 2 on 10/11/2017 by Rosendo Nathan DO at [facility] N/A: Spine Lumbar SARAH : SPINE [id number] / / 9 X 23x 6 - 9mm Pl Implanted:Qty : 1 on 10/11/2017 by Rosendo Nathan DO at [facility] N/A: Spine Lumbar SARAH : SPINE [id number] / / Shashank Bina 3 Ti 6x40mm - [id number] Implanted:Qty : 1 on 10/11/2017 by Rosendo Nathan DO at [facility] N/A: Spine Lumbar SARAH : SPINE [id number] / / Shashank Bina 3 Ti 6x45mm - [id number] Implanted:Qty : 1 on 10/11/2017 by Rosendo Nathan DO at [facility] N/A: Spine Lumbar SARAH : SPINE [id number] / / Stent Axios [id number] - [id number] Implanted:Qty : 1 on 09/18/2024 by Omid Snell MD at [facility] [id number] 05/27/2026 [id number] / / [id number] documented as of this encounter Visit Diagnoses Diagnosis Pseudocyst of pancreas- Primary Cyst and pseudocyst of pancreas documented in this encounter Advance Directives * Full Code (Latest Code Status on File) Date Activated Date Inactivated Comments 10/11/2017 9:23 AM 10/13/2017 10:36 PM This order r eflects the patients wishes and were consensually agreed upon. Care Teams Music Education Adjunct Professor Relationship Specialty Start Date End Date Myesha Cavanaugh MD [address] [place] [address] PCP - General Family Medicine 09/18/24 documented as of this encounter
--- OUTSIDE RECORDS SUMMARY | 2024-11-07 04:08 | External Medical Summary | Summary of Care ---
Author Name Unknown Organization [facility] Address [address] [facility] [place] [address] Phone [phone] Care Team Providers Care Supervisor Tan Room Name Role Phone Myesha Cavanaugh MD Primary Care Provid er Reason for Visit * Reason Onset Date Comments Medication Refill 09/18/2024 Encounter Details Date Type Department Care Team (Late st Contact Info) Description 09/18/2024 Refill Gastroenterology, [facility] [address] [place] [address] Omid Snell MD [address] [place] [address] Allergies Active Allergy Reactions Criticality Noted Date Comments Amoxicillin 01/05/2017 thrush Latex 06/20/2013 Hives, rash and swelling Lisinopril 06/02/2023 COUGH Nickel Rash 12/03/2020 documented as of this encounter (statuses as of 09/18/2024) Medications Buprenorphine HCl 2 MG Sublingual Tablet Sublingual (Subutex) Place 1 Tablet under the tongue every 30 minutes as needed for Pain, Moderate or Pain, Severe for up to 3 doses. 3 Tablet Active Buprenorphine HCl 2 MG Sublingual Tablet [...] this for 5 days. 10 Tablet 5 025 Active metroNIDAZOLE 500 MG Oral Tablet (Flagyl) Take 1 Tablet by mouth in the morning and 1 Tablet before bedtime. Do all this for 5 days. 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 Use as directed. 1 Each 1 3 Suspended Acetaminophen 500 MG Oral Tablet (Tylenol) Take 2 Tablets by mouth every 6 hours as needed. Suspended DULoxetine HCl 60 MG Oral Capsule Delayed Release Particles (Cymbalta)Indica tions:Fibromyalg ia,Major depressive disorder with single episode, in full remission (HCC) TAKE 1 CAPSULE BY MOUTH ONCE DAILY IN THE MORNING DO NOT CUT, CRUSH, OR CHEW CAPSULE 90 Capsule 3 4 Suspended FLUoxetine HCl 20 MG Oral Capsule (PROzac)Indicati ons:Anxiety,Hist ory of alcohol use disorder,Current severe episode of major depressive disorder without psychotic features, unspecified whether recurrent (HCC),Major depressive disorder with single episode, in full remission (HCC) Take 1 Capsule by mouth in the morning. Add to 40mg dose for total daily dose 60mg.. 90 Capsule 1 4 Suspended Dulera 200-5 MCG/ACT Inhalation Aerosol (Mometasone-Form oterol)Indicatio ns:COPD, 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) Inhale 2 Puffs by mouth in the morning and 2 Puffs before bedtime. 13 g 11 4 Suspended Albuterol Sulfate (2.5 MG/3ML) 0.083% Inhalation Nebulization Solution (Proventil)Indic ations:COPD, 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),Moderate persistent asthma without complication Inhale 1 Vial via nebulizer every 6 hours as needed for Wheezing. J45.40 J44.9 360 mL 11 4 Suspended EQ All Day Allergy Relief 10 MG Oral Tablet (Loratadine) Take 1 tablet by mouth once daily 90 Tablet 1 4 Suspended FLUoxetine HCl 40 MG Oral Capsule (PROzac)Indicati ons:Major depressive disorder with single episode, in full remission (HCC) Take 1 capsule by mouth in the morning 90 Capsule 1 4 Suspended Albuterol Sulfate HFA 108 (90 Base) MCG/ACT Inhalation Aerosol SolutionIndicati ons:Exacerbation of asthma, unspecified asthma severity, unspecified whether persistent INHALE 2 PUFFS BY MOUTH EVERY 4 HOURS NEEDED FOR WHEEZING 54 g 2 4 Suspended Folic Acid 1 MG Oral TabletIndication s:Anemia due to folic acid deficiency, unspecified deficiency type Take 1 Tablet by mouth in the morning. 90 Tablet 3 4 Suspended hydrOXYzine HCl 50 MG Oral TabletIndication s:Anxiety,Prurit us Take 1 Tablet by mouth every 6 hours as needed for Itching or Anxiety. 60 Tablet 5 4 Suspended Pregabalin 150 MG Oral Capsule (Lyrica)Indicati ons:Spinal stenosis of lumbar region with neurogenic claudication Take 1 Capsule by mouth in the morning and 1 Capsule before bedtime. 60 Capsule 2 4 Suspended Omeprazole 20 MG Oral Capsule Delayed Release (PriLOSEC)Indica tions:Epigastric pain,Gallbladder sludge,Gastroeso phageal reflux disease without esophagitis Take 1 capsule by mouth twice daily 60 Capsule 5 4 Suspended Buprenorphine 7.5 MCG/HR Transdermal Patch Weekly (Butrans)Indicat ions:Spinal stenosis of lumbar region with neurogenic claudication Place 7.5 mcg/hr topically on the skin once a week. 4 Patch 2 4 Suspended Fluticasone-Umec lidin-Vilant 100-62.5-25 MCG/ACT Aerosol Powder Breath Activated (Trelegy Ellipta)Indicati ons:COPD, 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) Inhale 1 Puff by mouth in the morning. 60 Blister Dosing Unit 5 4 Suspended traZODone HCl 50 MG Oral Tablet (Desyrel)Indicat ions:Major depressive disorder with single episode, in full remission (HCC) TAKE 1 TABLET BY MOUTH AT BEDTIME 90 Tablet 3 4 Suspended Losartan Potassium 50 MG Oral Tablet (Cozaar) TAKE 1 TABLET BY MOUTH IN THE MORNING 90 Tablet 1 4 Suspended documented as of this encounter (statuses as of 09/18/2024) Active Problems Problem Noted Date Diagnosed Date [...] as of this encounter (statuses as of 09/18/2024) Resolved Problems Problem Noted Date Diagnosed Date Resolved Date Food insecurity 04/19/2021 08/26/2021 Overview: Per [facility] Protocol Asthma exacerbation 03/30/2015 07/07/20 17 Moderate persistent asthma 11/09/2014 0 03/30/2015 Overview (11/13/2014): PFT Pneumonitis 07/24/2014 01/06/2022 Asthma exacerbation 07/24/2014 03/30/20 15 documented as of this encounter (statuses as of 09/18/2024) Immunizations Name Administration Dates Next Due PPD [...] 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 [address] [place] [address] 09/30/2024 6:20 PM EST Office Visit [facility], [facility] [address] [facility] [place] [phone] Myesha Cavanaugh MD [address] [facility] [place] [address] Scheduled Procedures Name Priority Associated Diagnoses Date/Ti me ESOPHAGOGASTRODUODENOSCOPY ( EGD), FLEXIBLE, TRANSORAL, ENDOSCOPIC ULTRASOUND Pancreatic cyst 09/18/2024 8:23 AM EST ESOPHAGOGASTRODUODENOSCOPY ( EGD), FLEXIBLE, TRANSORAL, [...] 07/16/2013 DISCUSS TOBACCO CESSATION (REFER TO SMARTSET #4081) 01/06/2023 01/06/2022, 09/23/2021 DTap/Tdap Vaccines (2 - [...] this encounter Medical Devices Implanted Type Area Underwater Trapper Device Identifier Shelf Expiration Date Model / Serial / Lot Vitoss Bimodal Foam Pack 10cc - [id number] Implanted:Qty : 2 on 10/11/2017 by Rosendo Nathan DO at [facility] N/A: Spine Lumbar SARAH : SPINE 03/08/2019 / / [id number] Vitoss Bimodal Foam Pack 10cc - [id number] Implanted:Qty : 1 on 10/11/2017 by Rosendo Nathan DO at [facility] N/A: Spine Lumbar SARAH : SPINE 02/05/2019 / / [id number] Screw Audie Bina 3 Ti Set - [id number] Implanted:Qty : 4 on 10/11/2017 by Rosendo Nathan DO at [facility] N/A: Spine Lumbar SARAH : SPINE [id number] / / 6.5 X 50 Mm Serrate Screws Implanted:Qty : 2 on 10/11/2017 by Rosendo Nathan DO at [facility] N/A: Spine Lumbar SARAH : SPINE [id number] / / 6.5 X 45 Mm Serrate Screw Implanted:Qty : 2 on 10/11/2017 by Rosendo Nathan DO at [facility] N/A: Spine Lumbar SARAH : SPINE [id number] / / 9 X 23x 6 - 9mm Pl Implanted:Qty : 1 on 10/11/2017 by Rosendo Nathan DO at [facility] N/A: Spine Lumbar SARAH : SPINE [id number] / / Shashank Bina 3 Ti 6x40mm - [id number] Implanted:Qty : 1 on 10/11/2017 by Rosendo Nathan DO at [facility] N/A: Spine Lumbar SARAH : SPINE [id number] / / Shashank Bina 3 Ti 6x45mm - [id number] Implanted:Qty : 1 on 10/11/2017 by Rosendo Nathan DO at [facility] N/A: Spine Lumbar SARAH : SPINE [id number] / / Stent Axios [id number] - [id number] Implanted:Qty : 1 on 09/18/2024 by Omid Snell MD at OR [facility] [id number] 05/27/2026 [id number] / / [id number] documented as of this encounter Advance Directives * Full Code (Latest Code Status on File) Date Activated Date Inactivated Comments 10/11/2017 9:23 AM 10/13/2017 10:36 PM This order r eflects the patients wishes and were consensually agreed upon. Care Teams Supervisor Tan Room Relationship Specialty Start Date End Date Myesha Cavanaugh MD [address] [place] [address] PCP - General Family Medicine 09/18/24 documented as of this encounter
--- OUTSIDE RECORDS SUMMARY | 2024-11-07 04:08 | External Medical Summary | Summary of Care ---
Author Name Unknown Organization [facility] Address [address] [facility] [place] [address] Phone [phone] Care Team Providers Care Supervisor Gluing Name Role Phone Myesha Cavanaugh MD Primary Care Provid er Encounter Details Date Type Department Care Team (Late st Contact Info) Description 08/26/2024 Telephone Gastroenterology, [facility] [address] [place] [address] Omid Snell MD [address] [place] [address] Allergies Active Allergy Reactions Criticality Noted Date Comments Amoxicillin 01/05/2017 thrush Latex 06/20/2013 Hives, rash and swelling Lisinopril 06/02/2023 COUGH Nickel Rash 12/03/2020 documented as of this encounter (statuses as of 08/28/2024) Medications Compressor NebulizerIndicat ions:Moderate persistent asthma without complication,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 Use [...] as of this encounter (statuses as of 08/28/2024) Active Problems Problem Noted Date Diagnosed Date [...] as of this encounter (statuses as of 08/28/2024) Resolved Problems Problem Noted Date Diagnosed Date Resolved Date Food insecurity 04/19/2021 08/26/2021 Overview: Per [facility] Protocol Asthma exacerbation 03/30/2015 07/07/20 17 Moderate persistent asthma 11/09/2014 0 03/30/2015 Overview (11/13/2014): PFT Pneumonitis 07/24/2014 01/06/2022 Asthma exacerbation 07/24/2014 03/30/20 15 documented as of this encounter (statuses as of 08/28/2024) Immunizations Name Administration Dates Next Due PPD [...] Answer Date Recorded PHQ Adult Total Score 9 05/16/2024 Hunger Vital Sign Answer Date Recorded Within [...] 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 documented in this encounter Plan of Treatment Upcoming Encounters Date Type Department Care Team (Late st Contact Info) Description 09/16/2024 5:20 PM EST Office Visit Family Practice, [facility] [address] [place] [address] Myesha Cavanaugh MD [address] [place] [address] 09/19/2024 3:30 PM EST Telemedicine Pharmacy, [facility] [address] [place] [address] [facility] [address] [facility] [address] 09/30/2024 6:20 PM EST Office Visit Family [facility], [facility] [address] [place] [address] Myesha Cavanaugh MD [address] [place], [place] [id number] Scheduled Procedures Name Priority Associated Diagnoses Date/Ti [...] 07/16/2013 DISCUSS TOBACCO CESSATION (REFER TO SMARTSET #1711) 01/06/2023 01/06/2022, 09/23/2021 DTap/Tdap Vaccines (2 - [...] 2019 (Patient Declined After Education) Depression Monitoring 05/16/2025 05/16/2024 O2 ASSESSMENT COMPLETED IN PAST YEAR FOR COPD 08/26/2025 08/26/2024 Albumin/Creatinine Ratio 09/01/2026 09/01/2023 Lipid Panel 05/11/2027 05/11/2022 Colonoscopy 09/27/2033 09/27/2023 Colorectal Cancer Screening 09/27/2033 HPV (Gardasil) Vaccine Aged Out No lo nger eligible based on patient's age to complete this topic MENINGOCOCCAL (MENACTRA/MENVEO) Aged Out No longer eligible based on patient's age to complete this topic documented as of this encounter Medical Devices Implanted Type Area Air Quality Instrument Specialist Device Identifier Shelf Expiration Date Model / Serial / Lot Vitoss Bimodal Foam Pack 10cc - [id number] Implanted:Qty : 2 on 10/11/2017 by Rosendo Nathan, DO at [facility] N/A: Spine Lumbar SARAH : SPINE 03/08/2019 / / [id number] Vitoss Bimodal Foam Pack 10cc - [id number] Implanted:Qty : 1 on 10/11/2017 by Rosendo Nathan, DO at [facility] N/A: Spine Lumbar SARAH : SPINE 02/05/2019 / / [id number] Screw Audie Bina 3 Ti Set - [id number] Implanted:Qty : 4 on 10/11/2017 by Rosendo Nathan DO at [facility] N/A: Spine Lumbar SARAH : SPINE [id number] / / 6.5 X 50 Mm Serrate Screws Implanted:Qty : 2 on 10/11/2017 by Rosendo Nathan DO at [facility] N/A: Spine Lumbar SARAH : SPINE [id number] / / 6.5 X 45 Mm Serrate Screw Implanted:Qty : 2 on 10/11/2017 by Rosendo Nathan DO at [facility] N/A: Spine Lumbar SARAH : SPINE [id number] / / 9 X 23x 6 - 9mm Pl Implanted:Qty : 1 on 10/11/2017 by Rosendo Nathan DO at [facility] N/A: Spine Lumbar SARAH : SPINE [id number] / / Shashank Bina 3 Ti 6x40mm - [id number] Implanted:Qty : 1 on 10/11/2017 by Rosendo Nathan DO at [facility] N/A: Spine Lumbar SARAH : SPINE [id number] / / Shashank Bina 3 Ti 6x45mm - [id number] Implanted:Qty : 1 on 10/11/2017 by Rosendo Nathan DO at [facility] N/A: Spine Lumbar SARAH : SPINE [id number] / / documented as of this encounter Advance Directives * Full Code (Latest Code Status on File) Date Activated Date Inactivated Comments 10/11/2017 9:23 AM 10/13/2017 10:36 PM This order r eflects the patients wishes and were consensually agreed upon. Care Teams Supervisor Gluing Relationship Specialty Start Date End Date Myesha Cavanaugh MD PCP - General Family Medicine 02/18/22 documented as of this encounter
--- OUTSIDE RECORDS SUMMARY | 2024-11-07 04:08 | External Medical Summary | Summary of Care ---
Author Name Unknown Organization [facility] Address [address] [facility] [place] [address] Phone [phone] Care Team Providers Care Contractor Buyer Name Role Phone Myesha Cavanaugh MD Primary Care Provid er Reason for Referral * Precert (Within 10 days (routine)) - Pending Review Specialty Diagnoses / Procedures Referred By Jun garay Referred To Contact Radiology Diagnoses Pseudocyst of pancreas Procedures CT ABD/PELVIS W IV AND W ORAL CONTRAST Omid Snell MD [address] [place] [address] Phone: tel: fax: Referral ID Status Reason Start Date Expiration Date V isits Requested Visits Authorized [id number] Pending Review 10/09/2024 [id number] Encounter Details Date Type Department Care Team (Late st Contact Info) Description 09/18/2024 Telephone Gastroenterology, [facility] [address] [place] [address] Omid Snell MD [address] [place] [address] Allergies Active Allergy Reactions Criticality Noted Date [...] 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 * Telephone Encounter - Omid Snell MD - 09/18/2024 1:13 PM EST Please schedule CT scan abdomen in 3 weeks and repeat EGD with me at [facility] in 4 weeks for stent removal. documented in this encounter Plan of Treatment Upcoming Encounters Date Type Department Care Team (Late st Contact Info) Description 09/19/2024 3:30 PM EST Telemedicine Pharmacy, [facility] [address] [place] [address] [facility] [address] [place] [address] 09/30/2024 6:20 PM EST Office Visit [facility] [address] [facility] [place] [phone] Myesha Cavanaugh MD [address] [facility] [place] [address] Scheduled Orders Name Type Priority Associated Diagnoses [...] encounter Medical Devices Implanted Type Area Flight Crew Scheduler Device Identifier Shelf Expiration Date Model / Serial / Lot Vitoss Bimodal Foam Pack 10cc - [id number] Implanted:Qty : 2 on 10/11/2017 by Rosendo Nathan DO at [facility] N/A: Spine Lumbar SARAH : SPINE 03/08/2019 / / [id number] Vitoss Bimodal Foam Pack 10cc - [id number] Implanted:Qty : 1 on 10/11/2017 by Rosendo Nathan DO at [facility] N/A: Spine Lumbar SARHA : SPINE 02/05/2019 / / [id number] Screw Audie Bina 3 Ti Set - [id number] Implanted:Qty : 4 on 10/11/2017 by Rosendo Nathan DO at [facility] N/A: Spine Lumbar SARAH : SPINE [id number] / / 6.5 X 50 Mm Serrate Screws Implanted:Qty : 2 on 10/11/2017 by Rosendo Nathan DO at [facility] N/A: Spine Lumbar SARAH : SPINE [id number] / / 6.5 X 45 Mm Serrate Screw Implanted:Qty : 2 on 10/11/2017 by Rosendo Nathan DO at [facility] N/A: Spine Lumbar SARAH : SPINE [id number] / / 9 X 23x 6 - 9mm Pl Implanted:Qty : 1 on 10/11/2017 by Rosendo Nathan DO at [facility] N/A: Spine Lumbar SARAH : SPINE [id number] / / Shashank Bina 3 Ti 6x40mm - [id number] Implanted:Qty : 1 on 10/11/2017 by Rosendo Nathan DO at [facility] N/A: Spine Lumbar SARAH : SPINE [id number] / / Shashank Bina 3 Ti 6x45mm - [id number] Implanted:Qty : 1 on 10/11/2017 by Rosendo Nathan DO at [facility] N/A: Spine Lumbar SARAH : SPINE [id number] / / Stent Axios [id number] - [id number] Implanted:Qty : 1 on 09/18/2024 by Omid Snell MD at [facility]OSCOPY [id number] 05/27/2026 [id number] / / [id number] documented as of this encounter Visit Diagnoses Diagnosis Pseudocyst of pancreas- Primary Cyst and pseudocyst of pancreas documented in this encounter Advance Directives * Full Code (Latest Code Status on File) Date Activated Date Inactivated Comments 10/11/2017 9:23 AM 10/13/2017 10:36 PM This order r eflects the patients wishes and were consensually agreed upon. Care Teams Contractor Buyer Relationship Specialty Start Date End Date Myesha Cavanaugh MD [address] [place] [address] PCP - General Family Medicine 09/18/24 documented as of this encounter
--- OUTSIDE RECORDS SUMMARY | 2024-11-07 04:08 | External Medical Summary | Summary of Care ---
Author Name Unknown Organization [facility] Address [address] [facility] [place] [address] Phone [phone] Care Team Providers Care Criminal Legal Assistant Name Role Phone Myesha Cavanaugh MD Primary Care Provid er Reason for Visit * Auth/Cert Specialty Diagnoses / Procedures Referred By Jun t Referred To Contact Diagnoses Pancreatic cyst Pancreatic cyst [K86.2] Procedures EGD, W/ENDOSCOPIC US ESOPHAGOGASTRODUODENOSCOPY (EGD), FLEXIBLE, TRANSORAL, ENDOSCOPIC ULTRASOUND Omid Snell MD [address] [place] [address] Phone: tel: fax: OR [facility], Operating Room, [facility] - 4th Floor [address] [place] [phone] Phone: tel: Referral ID Status Reason Start Date Expiration Date Visits Re quested Visits Authorized [id number] Encounter Details Date Type Department Care Team (Latest Contact Info) Description 09/18/2024 7:37 AM EST - 09/18/2024 1:47 PM EST Hospital Encounter OR [facility], Operating Room, [facility] - 4th Floor [address] [facility] [phone] Omid Snell MD [address] [place] [address] Upper Endoscopic US Discharge Disposition: Home - Self Care Allergies Active Allergy Reactions Criticality Noted Date Comments Amoxicillin 01/05/2017 thrush Latex 06/20/2013 Hives, rash and swelling Lisinopril 06/02/2023 COUGH Nickel Rash 12/03/2020 documented as of this encounter (statuses as of 09/19/2024) Medications Compressor NebulizerIndicat ions:Moderate persistent asthma without complication,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 Use [...] to 3 doses. 3 Tablet 5 Active amLODIPine Besylate 5 MG Oral Tablet (Norvasc)Indicat ions:HTN, goal below 140/90 TAKE 1 TABLET BY MOUTH IN THE MORNING 90 Tablet 1 4 09/18/19 25 Discontin ued(Patie nt preferenc e/discont inuation) Azithromycin 250 MG Oral Tablet (Zithromax)Indic ations:Bronchiti s, complicated Take 2 tabs by mouth on the first day, then 1 tab daily on days two through five 6 Tablet 4 09/18/19 25 Discontin ued(Patie nt preferenc e/discont inuation) Cyclobenzaprine HCl 5 MG Oral Tablet (Flexeril)Indica tions:Spasm of muscle TAKE 1 TABLET BY MOUTH THREE TIMES DAILY NEEDED FOR MUSCLE SPASM 60 Tablet 4 09/18/19 25 Discontin ued(Patie nt preferenc e/discont inuation) predniSONE 10 MG Oral Tablet (Deltasone)Indic ations:Bronchiti s, complicated Take 5 tabs for 2 days, 4 tabs for 2 days, 3 tabs for 2 days, 2 tabs for 2 days 1 tab for 2 days 30 Tablet 4 09/18/19 25 Discontin ued(Patie nt preferenc e/discont inuation) documented as of this encounter (statuses as [...] No 05/16/2024 Does the household have a [facility] source of income? 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 Not on file Not on file documented as of this encounter Last Filed Vital Signs Vital Sign Reading Time Taken Comments Blood Pressure 143/91 09/18/2024 1:32 PM EST Pulse 85 09/18/2024 1:32 PM EST Temperature 36.5 C (97.7 F) 09/18/2024 1:32 PM ES T Respiratory Rate 16 09/18/2024 1:32 PM EST Oxygen Saturation 96% 09/18/2024 1:32 PM EST Inhaled Oxygen Concentration - - Weight 56.7 kg (125 lb) 09/18/2024 7:58 AM EST Height 161.3 cm (5' 3.5") 09/18/2024 7:58 AM EST Body Mass Index 21.8 09/18/2024 7:58 AM EST documented in this encounter Functional Status [...] documented in this encounter Progress Notes * Omid Snell MD - 09/18/2024 1:27 PM EST Patient underwent Pancreas WON drainage with Axios stent, had abdominal pain after the procedure managed by anesthesia team. Currently she is pain free. She is known to have COPD and currently her O2sat on RA is 95% but drops to the 80s when she sleeps. Otherwise no signs or symptoms reported. This is not uncommon for patients with COPD. Discussed with patient, can be discharged, informed if any change in clinical status to come back here. documented in this encounter H&P Notes * Omid Snell MD - 09/18/2024 8:04 AM EST Endoscopy Pre-Procedure Assessment Name: Poppy Adhikari Date: 09/18/2024 Time: 8:04 AM Procedure(s): Endoscopic Ultrasound; with Indication(s) of evaluation and management of pancreatic cysts Endoscopy Pre-Procedure Assessment: Prior to the procedure, the patient was identified. The patient's history, medications and allergies were reviewed as per the Anesthesia Assessment. The patient is competent. The risks and benefits of the proposed procedure and the planned sedation were discussed with the patient. All questions were answered and informed consent for the procedure was obtained. BP 140/79 | Pulse 85 | Temp 36.5 C (97.7 F) (Temporal Artery) | Resp 20 | Ht 1.613 m (5' 3.5") | Wt 56.7 kg (125 lb) | LMP 07/11/2013 | SpO2 96% | BMI 21.80 kg/m | BSA 1.59 m Review of patient's allergies indicates: Allergen Reactions Amoxicillin thrush Latex Hives, rash and swelling Lisinopril COUGH Nickel Rash Prior to Admission medications Medication Sig Last Dose Discont. Losartan Potassium 50 MG Oral Tablet (Cozaar) TAKE 1 TABLET BY MOUTH IN THE MORNING traZODone HCl 50 MG Oral Tablet (Desyrel) TAKE 1 TABLET BY MOUTH AT BEDTIME Upwpwvkldpj-Ixwbwydqp-Oqhhkn 100-62.5-25 MCG/ACT Aerosol Powder Breath Activated (Trelegy Ellipta) Inhale 1 Puff by mouth in the morning. Buprenorphine 7.5 MCG/HR Transdermal Patch Weekly (Butrans) Place 7.5 mcg/hr topically on the skin once a week. Omeprazole 20 MG Oral Capsule Delayed Release (PriLOSEC) Take 1 capsule by mouth twice daily Folic Acid 1 MG Oral Tablet Take 1 Tablet by mouth in the morning. hydrOXYzine HCl 50 MG Oral Tablet Take 1 Tablet by mouth every 6 hours as needed for Itching or Anxiety. Pregabalin 150 MG Oral Capsule (Lyrica) Take 1 Capsule by mouth in the morning and 1 Capsule beforebedtime. Albuterol Sulfate HFA 108 (90 Base) MCG/ACT Inhalation Aerosol Solution INHALE 2 PUFFS BY MOUTH EVERY 4 HOURS NEEDED FOR WHEEZING FLUoxetine HCl 40 MG Oral Capsule (PROzac) Take 1 capsule by mouth in the morning EQ All Day Allergy Relief 10 MG Oral Tablet (Loratadine) Take 1 tablet by mouth once daily Albuterol Sulfate (2.5 MG/3ML) 0.083% Inhalation Nebulization Solution (Proventil) Inhale 1 Vial via nebulizer every 6 hours as needed for Wheezing. J45.40 J44.9 Cyclobenzaprine HCl 5 MG Oral Tablet (Flexeril) TAKE 1 TABLET BY MOUTH THREE TIMES DAILY NEEDED FOR MUSCLE SPASM Dulera 200-5 MCG/ACT Inhalation Aerosol (Mometasone-Formoterol) Inhale 2 Puffs by mouth in the morning and 2 Puffs before bedtime. FLUoxetine HCl 20 MG Oral Capsule (PROzac) Take 1 Capsule by mouth in the morning. Add to 40mg dosefor total daily dose 60mg.. DULoxetine HCl 60 MG Oral Capsule Delayed Release Particles (Cymbalta) TAKE 1 CAPSULE BY MOUTH ONCEDAILY IN THE MORNING DO NOT CUT, CRUSH, OR CHEW CAPSULE Acetaminophen 500 MG Oral Tablet (Tylenol) Take 2 Tablets by mouth every 6 hours as needed. Doxycycline Hyclate 100 MG Oral Capsule Take 1 Capsule by mouth in the morning and 1 Capsule beforebedtime. Do all this for 7 days. Take for 7 days. Azithromycin 250 MG Oral Tablet (Zithromax) Take 2 tabs by mouth on the first day, then 1 tab dailyon days two through five Patient not taking: Reported on 08/20/2024 Compressor Nebulizer Inhale via nebulizer. Use as directed. Physical Exam: Mental Status Examination: alert and oriented. Airway Examination: normal oropharyngeal airway and neck mobility. Respiratory Examination: clear to auscultation. CV Examination: Regular rate and rythm, no murmurs. ASA Grade: III - A patient with severe systemic disease. After reviewing the risks and [...] comparison to other patients Omid Snell MD 09/18/2024 documented in this encounter Procedure Notes * Myesha Cavanaugh MD - 09/18/2024 8:21 AM ESTAssociated Order(s): UPPER ENDOSCOPIC U/S [facility] Patient Name: Poppy Adhikari Procedure Date: 09/18/2024 8:21 AM Date of : 1970 Admit Type: Outpatient Note Status: Finalized Date of : 1970 Admit Type: Outpatient Age: 54 Room: OR 5 Gender: Female Note Status: Finalized Procedure: Upper EUS Indications: For cyst enterostomy, For necrosectomy Providers: Omid Snell MD (Doctor), Aydee Carrasco RN Referring MD: Myesha Cavanaugh Medicines: Propofol per Anesthesia, Cipro 400 mg IV Complications: No immediate complications. Procedure: Pre-Anesthesia Assessment: [...] and oxygen saturations were monitored continuously. The Endosonoscope was introduced through the mouth, and advanced to the second part of duodenum. The upper EUS was accomplished without difficulty. The patient tolerated the procedure well. Findings & Specimens: ENDOSONOGRAPHIC FINDING: : An anechoic lesion suggestive of a pseudocyst/WON was identified in the uncinate process of the pancreas. The lesion measured 40 mm by 50 mm in maximal cross-sectional diameter. There was a single compartment without septae. The outer wall of the lesion was thick. There was no associated mass. There was internal debris within the fluid-filled cavity. The decision was made to create a cystogastrostomy using the AXIOS stent system. Once an appropriate position in the stomach was identified, the common wall between the stomach and the cyst was interrogated utilizing color Doppler imaging to identify interposed vessels. The AXIOS stent and electrocautery device was introduced through the working channel. Current was applied to the cautery tip and then used to increase the diameter of the stoma. The AXIOS device was advanced into the cyst, and a 10 x 10 mm AXIOS stent was placed with the flanges in close approximation to the parsons of the cyst and the stomach through the cystogastrostomy. The stent was successfully placed. A TTS dilator was passed through the scope. Dilation with a 10 mm balloon dilator was performed. The cyst was partially filled with fluid and necrotic tissue that was adherent to the cyst wall. Necrosectomy was performed. Impression: - A 50 mm WON was seen in the peripancreas area. Cystogastrostomy was performed using 10 mm Axios stent. Recommendation: - Discharge patient to home. - Perform CT scan (computed tomography) of the abdomen with contrast in 3 weeks. If the the WON is resolved then remoive the stent. - Schedule upper endoscopy in 1 month for retreatment or stent removal. - Return to referring physician. Omid Snell MD 09/18/2024 9:14:14 AM This report has been signed electronically. Estimated Blood Loss: Estimated blood loss: none. documented in this encounter Nursing Notes * Paola Bowie, HIRO - 09/18/2024 10:10 AM EST 1012 Callum at bedside to assess patient. Instructed to give 1 mg dilaudid. Pt still reporting pain 9/10 abd/ upper epigastric. Verbal order placed cumulative warning alerted callum aware. 1018 T.T. Sent to Miranda pt stated to shake and is very anxious "felt like she is having heart attack" Applied 02 2l via NC. Miranda to bedside, instructed not to give the diluadid and he is going to order 4 mg subutex to give under tongue and will speak with Callum. Pt stated she is feeling half anxious and half painful. 1100 Pt stated pain is down to 4/10 and her anxiety is coming and going. [address] Jean pt 02 level drops to 85 on RA while sleeping. To bedside to see. Verbal order for duoneb. 1240 Sp02 drops to 80% while sleeping. Notifed Miranda Instructed to apply 02, give her time and monitor. Applied 1L via NC. Pulse ox on. 1330 Dr Snell instructed that patient can be discharged sp02 95% on RA. Pain is minimal at this time. * Aydee Carrasco RN - 09/18/2024 9:08 AM EST EGD EUS with axios stent placement completed in [facility] OR5. Sedated by LEAD BI DEVELOPER. See anesthesia record forVS and medications given. Pt tolerated procedure well with minimal gagging. Abd soft. Airway patent. Pt to recovery on L side with HOB elevated. Report to recovery room nurse. Bedside cleaning done. * Paola Bowie RN - 09/18/2024 8:06 AM EST Buprenorphine patch left back. documented in this encounter Plan of Treatment Upcoming Encounters Date Type Department Care Team (Late st Contact Info) Description 09/19/2024 3:30 PM EST Telemedicine Pharmacy, [facility] [address] [place] [address] [facility] [address] [place] [address] 09/30/2024 6:20 PM EST Office Visit [facility] [address] [place] [phone] Myesha Cavanaugh MD [address] [place] [address] Scheduled Procedures Name Priority Associated Diagnoses Date/Ti [...] this encounter Medical Devices Implanted Type Area Research Associate Professor Device Identifier Shelf Expiration Date Model / Serial / Lot Vitoss Bimodal Foam Pack 10cc - [id number] Implanted:Qty : 2 on 10/11/2017 by Rosendo Nathan, at [facility] N/A: Spine Lumbar SARAH : SPINE 03/08/2019 [id number] / / [id number] Vitoss Bimodal Foam Pack 10cc - [id number] Implanted:Qty : 1 on 10/11/2017 by Rosendo Nathan DO at [facility] N/A: Spine Lumbar SARAH : SPINE 02/05/2019 [id number] / / [id number] Screw Audie Bina 3 Ti Set - [id number] Implanted:Qty : 4 on 10/11/2017 by Rosendo Nathan DO at [facility] N/A: Spine Lumbar SARAH : SPINE [id number] / / 6.5 X 50 Mm Serrate Screws Implanted:Qty : 2 on 10/11/2017 by Rosendo Nathan DO at [facility] N/A: Spine Lumbar SARAH : SPINE [id number] / / 6.5 X 45 Mm Serrate Screw Implanted:Qty : 2 on 10/11/2017 by Rosendo Nathan DO at [facility] N/A: Spine Lumbar SARAH : SPINE [id number] / / 9 X 23x 6 - 9mm Pl Implanted:Qty : 1 on 10/11/2017 by Rosendo Nathan DO at [facility] N/A: Spine Lumbar SARAH : SPINE [id number] / / Shashank Bina 3 Ti 6x40mm - [id number] Implanted:Qty : 1 on 10/11/2017 by Rosendo Nathan DO at [facility] N/A: Spine Lumbar SARAH : SPINE [id number] / / Shashank Bina 3 Ti 6x45mm - [id number] Implanted:Qty : 1 on 10/11/2017 by Rosendo Nathan DO at [facility] N/A: Spine Lumbar SARAH : SPINE [id number] / / Stent Axios [id number] - [id number] Implanted:Qty : 1 on 09/18/2024 by Omid Snell MD at OR [facility] [employer] : ENDOSCOPY [id number] 05/27/2026 [id number] / / [id number] documented as of this encounter Procedures Procedure Name Priority Date/Time Associated Diagnosis Comments UPPER ENDOSCOPIC U/S 09/18/2024 8:21 AM EST documented in this encounter Results * UPPER ENDOSCOPIC U/S (09/18/2024 8:21 AM EST) 09/18/2024 8:21 AM EST Narrative Procedure Note Myesha Cavanaugh MD - 09/18/2024 8:21 AM EST [facility] Patient Name: Poppy Adhikari Procedure Date: 09/18/2024 8:21 AM Date of : 1970 Admit Type: Outpatient Note Status:Finalized Date of : 1970 Admit Type: Outpatient Age: 54 Room: OR 5 Gender: Female Note Status: Finalized Procedure: Upper EUS Indications: For cyst enterostomy, For necrosectomy Providers: Omid Snell MD (Doctor), Aydee Carrasco RN Referring MD: Myesha Cavanaugh Medicines: Propofol per Anesthesia, Cipro 400 mg IV Complications: No immediate complications. Procedure: Pre-Anesthesia Assessment: [...] patient to ensure they are fully intact. Throughoutthe procedure, the patient's blood pressure, pulse, and oxygen saturations weremonitored continuously. The Endosonoscope was introduced through the mouth, andadvanced to the second part of duodenum. The upper EUS was accomplished withoutdifficulty. The patient tolerated the procedure well. Findings & Specimens: ENDOSONOGRAPHIC FINDING: : An anechoic lesion suggestive of a pseudocyst/WON was identified inthe uncinate process of the pancreas. The lesion measured 40 mm by 50 mm in maximalcross-sectional diameter. There was a single compartment without septae. The outer wall of the lesion was thick.There was no associated mass. There was internal debris within the fluid-filled cavity. The decision wasmade to create a cystogastrostomy using the AXIOS stent system. Once an appropriate position in thestomach was identified, the common wall between the stomach and the cyst was interrogated utilizingcolor Doppler imaging to identify interposed vessels. The AXIOS stent and electrocautery device wasintroduced through the working channel. Current was applied to the cautery tip and then used toincrease the diameter of the stoma. The AXIOS device was advanced into the cyst, and a 10 x 10 mm AXIOSstent was placed with the flanges in close approximation to the parsons of the cyst and the stomachthrough the cystogastrostomy. The stent was successfully placed. A TTS dilator was passed through the scope.Dilation with a 10 mm balloon dilator was performed. The cyst was partially filled with fluid andnecrotic tissue that was adherent to the cyst wall. Necrosectomy was performed. Impression: - A 50 mm WON was seen in the peripancreas area.Cystogastrostomy was performed using 10 mm Axios stent. Recommendation: - Discharge patient to home. - Perform CT scan (computed tomography) of theabdomen with contrast in 3 weeks. If the the WON is resolved then remoive the stent. - Schedule upper endoscopy in 1 month forretreatment or stent removal. - Return to referring physician. Omid Snell MD 09/18/2024 9:14:14 AM This report has been signed electronically. Estimated Blood Loss: Estimated blood loss: none. us Myesha Cavanaugh MD GASTRO UPPER Edit ed Result - Final documented in this encounter Administered Medications Inactive Administered Medications - up to 3 most recent administrations Medication Order MAR Action Action Date Dose Rate Site albuterol-ipratropium (Duoneb) inhalation solution 3 mL 3 mL, Nebulizer, ONCE, On Mon09/18/24 at 1245, For 1 dose, 3 mL = 0.5 mg ipratropium/ 2.5 mg albuterol, Post-op Given 09/18/2024 12:14 PM EST 3 mL buprenorphine (Subutex) sublingual tab 2 mg 2 mg, Sublingual, ONCE, On Mon09/18/24 at 1000, For 1 dose Given 09/18/2024 9:44 AM EST 2 mg buprenorphine (Subutex) sublingual tab 4 mg 4 mg, Sublingual, ONCE, On Mon09/18/24 at 1100, For 1 dose Given 09/18/2024 10:35 AM EST 4 mg Isolyte-S pH 7.4 infusion Intravenous, at 10 mL/hr, Plasma-LYTE 148, isolyte-S, and isolyte-S pH 7.4 are considered equivalent - including for MAR barcode scanning., CONTINUOUS, Starting on Mon09/18/24 at 0900, Until Mon09/18/24 at 1747 Restarted 09/18/2024 8:36 AM EST New Bag 09/18/2024 8:21 AM EST 10 mL/hr documented in this encounter Active and Recently Administered Medications Times are shown in EST. Scheduled Medication Order 09/16/2024 09/17/2024 09/18/2024 albuterol-ipratropium (Duoneb) inhalation solution 3 mL (COMPLETED) 3 mL, Nebulizer, ONCE, On Mon09/18/24 at 1245, For 1 dose, 3 mL = 0.5 mg ipratropium/ 2.5 mg albuterol, Post-op 1214 (Given - Provid er: Paola Bowie RN) buprenorphine (Subutex) sublingual tab 2 mg (COMPLETED) 2 mg, Sublingual, ONCE, On Mon09/18/24 at 1000, For 1 dose 0944 (Given - Provid er: Paola Bowie RN) buprenorphine (Subutex) sublingual tab 4 mg (COMPLETED) 4 mg, Sublingual, ONCE, On Mon09/18/24 at 1100, For 1 dose 1035 (Given - Provid er: Paola Bowie RN) ciprofloxacin (Cipro) in D5W ivpb 400 mg (COMPLETED) IV Piggyback, 400 mg, ONCE, 1 dose, On Mon09/18/24 at 0845, Administer over 60 Minutes, PROTECT FROM LIGHT 0840 (Given - Provid er: Minnie Borges CRNA) Continuous Medication Order 09/16/2024 09/17/2024 09/18/2024 Isolyte-S pH 7.4 infusion Intravenous, at 10 mL/hr, Plasma-LYTE 148, isolyte-S, and isolyte-S pH 7.4 are considered equivalent - including for MAR barcode scanning., CONTINUOUS, Starting on Mon09/18/24 at 0900, Until Mon09/18/24 at 1747 0821 (New Bag - Prov ider: Paola Bowie RN)0835 (Paused - Provider: Minnie Borges CRNA - Comment: Switch to gravity)0836 (Restarted - Provider: Minnie Borges CRNA)0915 (Anes Intra-Op Fluid - Provider: Ta Jean MD) documented in this encounter Advance Directives * Full Code (Latest Code Status on File) Date Activated Date Inactivated Comments 10/11/2017 9:23 AM 10/13/2017 10:36 PM This order r eflects the patients wishes and were consensually agreed upon. Care Teams Criminal Legal Assistant Relationship Specialty Start Date End Date Myesha Cavanaugh MD [address] [place] [address] PCP - General Family Medicine 09/18/24 documented as of this encounter
--- OUTSIDE RECORDS SUMMARY | 2024-11-07 04:08 | External Medical Summary | Summary of Care ---
Author Name Unknown Organization [facility] Address [address] [facility] [place] [address] Phone [phone] Care Team Providers Care Roll Coating Machine Operator Name Role Phone Myesha Cavanaugh MD Primary Care Provid er Reason for Visit * Reason Comments Dosage Adjustment In Person (Anticoag Cl inic) Pain Encounter Details Date Type Department Care Team (Late st Contact Info) Description 09/19/2024 3:30 PM EST Telemedicine Pharmacy, [facility] [address] [facility] [place] [address] [facility] [address] [facility] [place] [address] Spinal stenosis of lumbar region with neurogenic [...] 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 Medication Therapy Disease Management - Chronic Pain History of Presenting Illness Patient location: HOME. I was in a hospital or clinic location. After connecting through [email or web address],patient was verified with two unique identifiers. Patient (or authorized legal retention representative) was then informed that this was a Telemedicine visit and being conducted confidentially over secure lines. Methods to assure confidentiality were taken. Patient acknowledged consent and understanding of pr ivacy and security of the Telemedicine visit. The patient agreed to participate. Poppy Adhikari, identified by name and date of , is a 54 year old female presents to the [facility] for return visit. Chief Complaint Patient presents with Dosage Adjustment In Person (Anticoag Clinic) Pain History Past Medications SA Opioids: Percocet & Staples Current Pain Medications Flexeril 5mg TID prn spasms- not taking at all at this time Cymbalta 60mg QAM Lyrica 150mg BID Yehuda 7.5mcg/hr (9MME) Interval History Today: Notes the Yehuda is helping but notes the last two weeks having an increase in back pain Notes had a stent placed yesterday, given oral buprenoprhine for acute pain relief Notes was doing well but notes that now she cannot get comfortable at night, having to move positions about every 20 minutes or so Notes her back continues to bother her, notes is feeling it more a little bit higher Last Visit: Pt reports that Yehuda was doing well in the beginning Pt reports that the yehuda does take the "edge off" of the pain Pt states she would like to trial a slightly higher dose to see if further pain control can be achieved 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 Most recent answers to PEG-3 scale: [...] patient is: Adherent to regimen. Treatment Options Increase butrans 10 mcg/hr to help with continued pain Treatment Concerns N/A Education Provided - Patient educated on mechanism, time to efficacy and potential adverse effects of medication regimen Recommendations INC: Butrans 10 mcg/hr patch applied once weekly Poppy verbalized understanding of the plan. Contact clinic with any issues. Visit date not found I spent a total of 20-29 minutes(20 minutes) on the date of service in preparation, delivery, and documentation of the care provided to Poppy Adhikari excluding any time spent in the performance of separately billed services or time spent by another provider/QHP. Lisbeth Odonnell, Pharm D, [facility] Clinical Pharmacist 09/19/2024, 3:49 PM documented in this encounter Plan of Treatment Upcoming Encounters Date Type Department Care Team (Latest Contact Info) Description 5 6:20 PM EST Office Visit [facility] [address] [place] [phone] Myesha Cavanaugh MD [address] [place] [address] 5 10:30 AM EST Imaging Radiology [address], [address] [place] [address] 5 9:00 AM EST Hospital Encounter ENDO [facility], Endoscopy Room [facility] [address] [place] [phone] Omid Snell MD [address] [place] [address] 5 9:00 AM EST - 5 9:30 AM EST Surgery ENDO [facility], Endoscopy Room [facility] [address] [place] [phone] Omid Snell MD [address] [place] [address] ESOPHAGOGASTRODUODENOSCOPY (EGD), FLEXIBLE, TRANSORAL, DIAGNOSTIC 5 3:30 PM EST Telemedicine Pharmacy, [facility] [address] [place] [address] [facility] [address] [place] [address] Scheduled Procedures Name Priority Associated Diagnoses Date/Ti mt ESOPHAGOGASTRODUODENOSCOPY ( EGD), FLEXIBLE, TRANSORAL, DIAGNOSTIC Pseudocyst [...] 07/16/2013 DISCUSS TOBACCO CESSATION (REFER TO SMARTSET #1301) 01/06/2023 01/06/2022, 09/23/2021 DTap/Tdap Vaccines (2 - Td or Tdap) 06/20/2023 06/20/2013 Mammogram 01/18/2024 01/17/2023, 05/0 05/2023, 06/27/2013 COVID-19 Vaccine (1 - 2023- season) [...] this encounter Medical Devices Implanted Type Area Plastics Repairer Device Identifier Shelf Expiration Date Model / Serial / Lot Vitoss Bimodal Foam Pack 10cc - [id number] Implanted:Qty : 2 on 10/11/2017 by Rosendo Nathan, at [facility] N/A: Spine Lumbar SARAH : SPINE 03/08/[id number] / / [id number] Vitoss Bimodal Foam Pack 10cc - [id number] Implanted:Qty : 1 on 10/11/2017 by Rosendo Nathan, at [facility] N/A: Spine Lumbar SARAH : SPINE 02/05/[id number] / / [id number] Screw Audie Bina 3 Ti Set - [id number] Implanted:Qty : 4 on 10/11/2017 by Rosendo Nathan DO at [facility] N/A: Spine Lumbar SARAH : SPINE [id number] / / 6.5 X 50 Mm Serrate Screws Implanted:Qty : 2 on 10/11/2017 by Rosendo Nathan DO at [facility] N/A: Spine Lumbar SARAH : SPINE [id number] / / 6.5 X 45 Mm Serrate Screw Implanted:Qty : 2 on 10/11/2017 by Rosendo Nathan DO at [facility] N/A: Spine Lumbar SARAH : SPINE [id number] / / 9 X 23x 6 - 9mm Pl Implanted:Qty : 1 on 10/11/2017 by Rosendo Nathan DO at [facility] N/A: Spine Lumbar SARAH : SPINE [id number] / / Shashank Bina 3 Ti 6x40mm - [id number] Implanted:Qty : 1 on 10/11/2017 by Rosendo Nathan DO at [facility] N/A: Spine Lumbar SARAH : SPINE [id number] / / Shashank Bina 3 Ti 6x45mm - [id number] Implanted:Qty : 1 on 10/11/2017 by Rosendo Nathan DO at [facility] N/A: Spine Lumbar SARAH : SPINE [id number] / / Stent Axios 61inn65qo - [id number] Implanted:Qty : 1 on 09/18/2024 by Omid Snell MD at [facility] : ENDOSCOPY [id number] 05/27/2026 [id number] / / [id number] documented as of this encounter Visit Diagnoses Diagnosis Spinal stenosis of lumbar region with neurogenic claudication- Primary Spinal stenosis, lumbar region, with neurogenic claudication History of lumbar fusion Sacroiliac joint pain Disorders of sacrum Pseudocyst of pancreas Cyst and pseudocyst of pancreas documented in this encounter Advance Directives * Full Code (Latest Code Status on File) Date Activated Date Inactivated Comments 10/11/2017 9:23 AM 10/13/2017 10:36 PM This order r eflects the patients wishes and were consensually agreed upon. Care Teams Roll Coating Machine Operator Relationship Specialty Start Date End Date Afshan, Myesha Victorina Chipe, MD [address] [place] [address] PCP - General Family Medicine 09/18/24 documented as of this encounter
--- OUTSIDE RECORDS SUMMARY | 2024-11-07 04:08 | External Medical Summary | Summary of Care ---
Author Name Unknown Organization [facility] Address [address] [facility] [place] [address] Phone [phone] Care Team Providers Care Mixing Picker Tender Name Role Phone Myesha Cavanaugh MD Primary Care Provid er Encounter Details Date Type Department Care Team (Late st Contact Info) Description 08/26/2024 Telephone Gastroenterology, [facility] [address] [place] [address] Omid Snell MD [address] [place] [address] Allergies Active Allergy Reactions Criticality Noted Date Comments Amoxicillin 01/05/2017 thrush Latex 06/20/2013 Hives, rash and swelling Lisinopril 06/02/2023 COUGH Nickel Rash 12/03/2020 documented as of this encounter (statuses as of 09/06/2024) Medications Compressor NebulizerIndicat ions:Moderate persistent asthma without complication,CARE ADVOCATE D, 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 Use [...] as of this encounter (statuses as of 09/06/2024) Active Problems Problem Noted Date Diagnosed Date [...] as of this encounter (statuses as of 09/06/2024) Resolved Problems Problem Noted Date Diagnosed Date Resolved Date Food insecurity 04/19/2021 08/26/2021 Overview: Per [facility] Protocol Asthma exacerbation 03/30/2015 07/07/20 17 Moderate persistent asthma 11/09/2014 0 03/30/2015 Overview (11/13/2014): PFT Pneumonitis 07/24/2014 01/06/2022 Asthma exacerbation 07/24/2014 03/30/20 15 documented as of this encounter (statuses as of 09/06/2024) Immunizations Name Administration Dates Next Due PPD [...] 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 (5 years old or older) Answer Entry Date Author Yes 10/12/2017 10:29 AM Ashley Suggs RN documented in this encounter Miscellaneous Notes * Telephone Encounter - Yanira Israel OSA - 09/06/2024 9:05 AM EST Eus jean'd 09/18 * Telephone Encounter - Yanira Israel OSA - 09/02/2024 9:41 AM EST lmm * Telephone Encounter - Yanira Israel OSA - 08/28/2024 3:46 PM EST Holding for a slot 09/18 * Telephone Encounter - Omid Snell MD - 08/26/2024 1:36 PM EST Please schedule EUS with me at [facility] in 3 weeks for cyst drainage. documented in this encounter Plan of Treatment Upcoming Encounters Date Type Department Care Team (Latest Contact Info) Description 5:20 PM EST Office Visit [facility] [place] [place] [phone] Myesha Cavanaugh MD [address] [place] [address] 5 9:23 AM EST Hospital Encounter OR [facility], Operating Room, [facility] - 4th Floor [address] [place] [phone] Omid Snell MD [address] [place] [address] 5 9:23 AM EST - 5 9:59 AM EST Surgery OR [facility], Operating Room, [facility] - 4th Floor [address] [place] [phone] Omid Snell MD [address] [place] [address] ESOPHAGOGASTRODUODENOSCOPY (EGD), FLEXIBLE, TRANSORAL, ENDOSCOPIC ULTRASOUND 5 3:30 PM EST Telemedicine Pharmacy, [facility] [address] [place] [address] [facility] [address] [place] [address] 6:20 PM EST Office Visit [facility] [address] [place] [phone] Myesha Cavanaugh MD [address] [place] [address] Scheduled Procedures Name Priority Associated Diagnoses Date/Ti me ESOPHAGOGASTRODUODENOSCOPY ( EGD), FLEXIBLE, TRANSORAL, ENDOSCOPIC ULTRASOUND Pancreatic cyst 09/18/2024 9:23 AM EST ESOPHAGOGASTRODUODENOSCOPY ( EGD), FLEXIBLE, TRANSORAL, [...] 07/16/2013 DISCUSS TOBACCO CESSATION (REFER TO SMARTSET #6332) 01/06/2023 01/06/2022, 09/23/2021 DTap/Tdap Vaccines (2 - Td or Tdap) 06/20/2023 06/20/2013 Mammogram 01/18/2024 01/17/2023, 05/05/2023, 06/27/2013 COVID-19 Vaccine ( season) 2024 Influenza [...] this encounter Medical Devices Implanted Type Area Videogame Tester Device Identifier Shelf Expiration Date Model / Serial / Lot Vitoss Bimodal Foam Pack 10cc - [id number] Implanted:Qty : 2 on 10/11/2017 by Rosendo Nathan, DO at [facility] N/A: Spine Lumbar SARAH : SPINE 03/08/2019 / / [id number] Vitoss Bimodal Foam Pack 10cc - [id number] Implanted:Qty : 1 on 10/11/2017 by Rosendo Nathan DO at [facility] N/A: Spine Lumbar SARAH : SPINE 02/05/2019 / / [id number] Screw Audie Bina 3 Ti Set - [id number] Implanted:Qty : 4 on 10/11/2017 by Rosendo Nathan DO at [facility] N/A: Spine Lumbar SARAH : SPINE [id number] / / 6.5 X 50 Mm Serrate Screws Implanted:Qty : 2 on 10/11/2017 by Rosendo Nathan DO at [facility] N/A: Spine Lumbar SARAH : SPINE [id number] / / 6.5 X 45 Mm Serrate Screw Implanted:Qty : 2 on 10/11/2017 by Rosendo Nathan, DO at [facility] N/A: Spine Lumbar SARAH : SPINE [id number] / / 9 X 23x 6 - 9mm Pl Implanted:Qty : 1 on 10/11/2017 by Rosendo Nathan, DO at [facility] N/A: Spine Lumbar SARAH : SPINE [id number] / / Shashank Bina 3 Ti 6x40mm - [id number] Implanted:Qty : 1 on 10/11/2017 by Rosendo Nathan, DO at [facility] N/A: Spine Lumbar SARAH : SPINE [id number] / / Shashank Bina 3 Ti 6x45mm - [id number] Implanted:Qty : 1 on 10/11/2017 by Rosendo Nathan, DO at [facility] N/A: Spine Lumbar SARAH : SPINE [id number] / / documented as of this encounter Advance Directives * Full Code (Latest Code Status on File) Date Activated Date Inactivated Comments 10/11/2017 9:23 AM 10/13/2017 10:36 PM This order r eflects the patients wishes and were consensually agreed upon. Care Teams Mixing Picker Tender Relationship Specialty Start Date End Date Myesha Cavanaugh MD PCP - General Family Medicine 02/18/22 documented as of this encounter
--- OUTSIDE RECORDS SUMMARY | 2024-11-07 04:08 | External Medical Summary | Summary of Care ---
Author Name Unknown Organization [facility] Address [address] [facility] [place] [address] Phone [phone] Care Team Providers Care Methods And Procedures Analyst Name Role Phone Myesha Cavanaugh MD Primary Care Provid er Reason for Referral * Precert (Within 10 days (routine)) - Pending Review Specialty Diagnoses / Procedures Referred By Jun garay Referred To Contact Radiology Diagnoses Pseudocyst of pancreas Procedures CT ABD/PELVIS W IV AND W ORAL CONTRAST Omid Snell MD [address] [place] [address] Phone: tel: fax: Referral ID Status Reason Start Date Expiration Date V isits Requested Visits Authorized [id number] Pending Review 10/09/[phone] Encounter Details Date Type Department Care Team (Late st Contact Info) Description 09/18/2024 Telephone Gastroenterology, [facility] [address] [place] [address] Omid Snell MD [address] [place] [address] Allergies Active Allergy Reactions Criticality Noted Date [...] 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 jean'd 10/16/24 at . * Telephone Encounter - Omid Snell MD - 09/18/2024 1:13 PM EST Please schedule CT scan abdomen in 3 weeks and repeat EGD with me at [facility] in 4 weeks for stent removal. documented in this encounter Plan of Treatment Upcoming Encounters Date Type Department Care Team (Latest Contact Info) Description 5 3:30 PM EST Telemedicine Pharmacy, [facility] [address] [place] [address] [facility] [address] [place] [address] 5 6:20 PM EST Office Visit [facility] [address] [facility] [place] [phone] Myesha Cavanaugh MD [address] [facility] [place] [address] 5 10:30 AM EST Imaging Radiology [facility] [address] [place] [address] 5 9:00 AM EST Hospital Encounter ENDO [facility], Endoscopy Room [facility] [address] [place] [phone] Omid Snell MD [address] [place] [address] 5 9:00 AM EST - 5 9:30 AM EST Surgery ENDO [facility], Endoscopy Room [facility] [address] [place] [phone] Omid Snell MD [address] [place] [address] ESOPHAGOGASTRODUODENOSCOPY (EGD), FLEXIBLE, TRANSORAL, DIAGNOSTIC Scheduled Orders Name Type Priority Associated Diagnoses [...] 07/16/2013 DISCUSS TOBACCO CESSATION (REFER TO SMARTSET #0676) 01/06/2023 01/06/2022, 09/23/2021 DTap/Tdap Vaccines (2 - Td or Tdap) 06/20/2023 06/20/2013 Mammogram 01/18/2024 01/17/2023, 3, 06/27/2013 COVID-19 Vaccine ( season) 2024 Influenza [...] this encounter Medical Devices Implanted Type Area Printing Assistant Device Identifier Shelf Expiration Date Model / Serial / Lot Vitoss Bimodal Foam Pack 10cc - [id number] Implanted:Qty : 2 on 10/11/2017 by Rosendo Nathan, DO at [facility] N/A: Spine Lumbar SARAH : SPINE 03/08/2019 / / [id number] Vitoss Bimodal Foam Pack 10cc - [id number] Implanted:Qty : 1 on 10/11/2017 by Rosendo Nathan, DO at [facility] N/A: Spine Lumbar SARAH : SPINE 02/05/2019 / / [id number] Screw Audie Bina 3 Ti Set - [id number] Implanted:Qty : 4 on 10/11/2017 by Rosendo Nathan, DO at [facility] N/A: Spine Lumbar SARAH : SPINE [id number] / / 6.5 X 50 Mm Serrate Screws Implanted:Qty : 2 on 10/11/2017 by Rosendo Nathan DO at [facility] N/A: Spine Lumbar SARAH : SPINE [id number] / / 6.5 X 45 Mm Serrate Screw Implanted:Qty : 2 on 10/11/2017 by Rosendo Nathan DO at [facility] N/A: Spine Lumbar SARAH : SPINE [id number] / / 9 X 23x 6 - 9mm Pl Implanted:Qty : 1 on 10/11/2017 by Rosendo Nathan DO at [facility] N/A: Spine Lumbar SARAH : SPINE [id number] / / Shashank Bina 3 Ti 6x40mm - [id number] Implanted:Qty : 1 on 10/11/2017 by Rosendo Nathan DO at [facility] N/A: Spine Lumbar SARAH : SPINE [id number] / / Shashank Bina 3 Ti 6x45mm - [id number] Implanted:Qty : 1 on 10/11/2017 by Rosendo Nathan DO at [facility] N/A: Spine Lumbar SARAH : SPINE [id number] / / Stent Axios 26taf18wh - [id number] Implanted:Qty : 1 on 09/18/2024 by Omid Snell MD at [facility] : ENDOSCOPY [id number] 05/27/2026 [id number] / / [id number] documented as of this encounter Visit Diagnoses Diagnosis Pseudocyst of pancreas- Primary Cyst and pseudocyst of pancreas Pseudocyst of pancreas Cyst and pseudocyst of pancreas documented in this encounter Advance Directives * Full Code (Latest Code Status on File) Date Activated Date Inactivated Comments 10/11/2017 9:23 AM 10/13/2017 10:36 PM This order r eflects the patients wishes and were consensually agreed upon. Care Teams Methods And Procedures Analyst Relationship Specialty Start Date End Date Myesha Cavanaugh MD [address] [place] [address] PCP - General Family Medicine 09/18/24 documented as of this encounter
--- OUTSIDE RECORDS SUMMARY | 2024-11-07 04:09 | External Medical Summary | Summary of Care ---
Author Name Unknown Organization [facility] Address [address] [facility] [place] [address] Phone [phone] Care Team Providers Care Journeyman Pipe Welder Name Role Phone Myesha Cavanaugh MD Primary Care Provid er Reason for Visit * Reason Onset Date Comments Pre Cert/Prior Auth 07/03/2024 Encounter Details Date Type Department Care Team (Late st Contact Info) Description 07/03/2024 Telephone [facility] [address] [place] [phone] Myesha Cavanaugh MD [address] [place] [address] Pre Cert/Prior Auth Allergies Active Allergy Reactions Criticality Noted Date Comments Amoxicillin 01/05/2017 thrush Latex 06/20/2013 Hives, rash and swelling Lisinopril 06/02/2023 COUGH Nickel Rash 12/03/2020 documented as of this encounter (statuses as of 07/04/2024) Medications Medication Sig Dispensed Refills Start Date End Date Status Compressor NebulizerIndicatio ns:Moderate persistent asthma without complication,COPD, 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 Use as directed. 1 Each 1 05/26/2023 Active Acetaminophen 500 MG Oral Tablet (Tylenol) Take 2 Tablets by mouth every 6 hours as needed. Active DULoxetine HCl 60 MG Oral Capsule Delayed Release Particles (Cymbalta)Indicati ons:Fibromyalgia,M ajor depressive disorder with single episode, in full remission (HCC) TAKE 1 CAPSULE BY MOUTH ONCE DAILY IN THE MORNING DO NOT CUT, CRUSH, OR CHEW CAPSULE 90 Capsule 3 12/18/2023 Active Losartan Potassium 50 MG Oral Tablet (Cozaar) Take 1 Tablet by mouth in the morning. 30 Tablet 5 01/18/2024 Active Additional Information Patient not taking.Reported on 05/28/2024 FLUoxetine HCl 20 MG Oral Capsule (PROzac)Indication s:Anxiety,History of alcohol use disorder,Current severe episode of major depressive disorder without psychotic features, unspecified whether recurrent (HCC),Major depressive disorder with single episode, in full remission (HCC) Take 1 Capsule by mouth in the morning. Add to 40mg dose for total daily dose 60mg.. 90 Capsule 1 03/25/2024 Active amLODIPine Besylate 5 MG Oral Tablet (Norvasc)Indicatio ns:HTN, goal below 140/90 TAKE 1 TABLET BY MOUTH IN THE MORNING 90 Tablet 1 03/29/2024 Active Azithromycin 250 MG Oral Tablet (Zithromax)Indicat ions:Bronchitis, complicated Take 2 tabs by mouth on the first day, then 1 tab daily on days two through five 6 Tablet 04/01/2024 Active Additional Information Patient not taking.Reported on 05/28/2024 Dulera 200-5 MCG/ACT Inhalation Aerosol (Mometasone-Formot lovely)Indications:C [...] J45.40 J44.9 360 mL 11 04/01/2024 Active EQ All Day Allergy Relief 10 MG Oral Tablet (Loratadine) Take 1 tablet by mouth once daily 90 Tablet 1 04/15/2024 Active FLUoxetine HCl 40 MG Oral Capsule (PROzac)Indication s:Major depressive disorder with single episode, in full remission (HCC) Take 1 capsule by mouth in the morning 90 Capsule 1 04/18/2024 Active Albuterol Sulfate HFA 108 (90 Base) MCG/ACT Inhalation Aerosol SolutionIndication s:Exacerbation of asthma, unspecified asthma severity, unspecified whether persistent INHALE 2 PUFFS BY MOUTH EVERY 4 HOURS NEEDED FOR WHEEZING 54 g 2 04/18/2024 Active Folic Acid 1 MG Oral TabletIndications: Anemia due to folic acid deficiency, unspecified deficiency type Take 1 Tablet by mouth in the morning. 90 Tablet 3 05/28/2024 Active hydrOXYzine HCl 50 MG Oral TabletIndications: Anxiety,Pruritus Take 1 Tablet by mouth every 6 hours as needed for Itching or Anxiety. 60 Tablet 5 05/28/2024 Active Pregabalin 150 MG Oral Capsule (Lyrica)Indication s:Spinal stenosis of lumbar region with neurogenic claudication Take 1 Capsule by mouth in the morning and 1 Capsule before bedtime. 60 Capsule 2 05/28/2024 Active Omeprazole 20 MG Oral Capsule Delayed Release (PriLOSEC)Indicati ons:Epigastric pain,Gallbladder sludge,Gastroesoph ageal reflux disease without esophagitis Take 1 capsule by mouth twice daily 60 Capsule 5 06/03/2024 Active Buprenorphine 7.5 MCG/HR Transdermal Patch Weekly (Butrans)Indicatio ns:Spinal stenosis of lumbar region with neurogenic claudication Place 7.5 mcg/hr topically on the skin once a week. 4 Patch 2 06/28/2024 Active Fluticasone-Umecli din-Vilant 100-62.5-25 MCG/ACT Aerosol Powder Breath Activated (Trelegy Ellipta)Indication s:COPD, 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) Inhale 1 Puff by mouth in the morning. 60 Blister Dosing Unit 5 07/01/2024 Active traZODone HCl 50 MG Oral Tablet (Desyrel)Indicatio ns:Major depressive disorder with single episode, in full remission (HCC) TAKE 1 TABLET BY MOUTH AT BEDTIME 90 Tablet 3 07/02/2024 Active documented as of this encounter (statuses as of 07/04/2024) Active Problems Problem Noted Date Diagnosed Date [...] as of this encounter (statuses as of 07/04/2024) Resolved Problems Problem Noted Date Diagnosed Date Resolved Date Food insecurity 04/19/2021 08/26/2021 Overview: Per [facility] Protocol Asthma exacerbation 03/30/2015 07/07/20 17 Moderate persistent asthma 11/09/2014 0 03/30/2015 Overview: PFT Pneumonitis 07/24/2014 01/06/2022 Asthma exacerbation 07/24/2014 03/30/20 15 documented as of this encounter (statuses as of 07/04/2024) Immunizations Name Administration Dates Next Due PPD [...] ages 0-17 years) Not on file 05/16/2024 Sex and Gender Information Value Date Recorded [...] encounter Miscellaneous Notes * Telephone Encounter - Lizzeth Lombardo LPN - 07/03/2024 4:42 PM EDT Erma avery from [facility] insurance Prior Authorization for [employer] has been approved Time frame of approval is: 06/2025 Information will be faxed to the office at [phone] * Telephone Encounter - Shruthi Reyes LPN - 07/03/2024 9:12 AM EDT Prior auth started for buprenorphine patch via [facility] [id number] documented in this encounter Plan of Treatment Upcoming Encounters Date Type Department Care Team (Latest Contact Info) Description 08/26/2024 1:00 PM EST Hospital Encounter [facility]O [facility], Endoscopy Room [facility] [address] [place] [address] Omid Snell MD [address] [place] [address] 08/26/2024 1:00 PM EST - 08/26/2024 1:45 PM EST Surgery ENDO [facility], Endoscopy Room [facility] [address] [place] [address] Omid Snell MD [address] [place] [address] ESOPHAGOGASTRODUODENOSCOPY (EGD), FLEXIBLE, TRANSORAL, ENDOSCOPIC ULTRASOUND 08/30/2024 3:30 PM EST Telemedicine Pharmacy, [facility] [address] [facility] [place] [address] Pharmacist2, [facility] [address] [facility] [place] [address] 09/30/2024 6:20 PM EST Office Visit [facility] [address] [place] [phone] Myesha Cavanaugh MD [address], [place] [phone] Scheduled Procedures Name Priority Associated Diagnoses Date/Ti me ESOPHAGOGASTRODUODENOSCOPY ( EGD), FLEXIBLE, TRANSORAL, ENDOSCOPIC ULTRASOUND Recall Pancreatic cyst 08/26/2024 1:00 PM EST COLONOSCOPY FLEXIBLE PROXIMA L DIAGNOSTIC Recall Nausea & vomiting Unintentional weight [...] 07/16/2013 DISCUSS TOBACCO CESSATION (REFER TO SMARTSET #4234) 01/06/2023 01/06/2022, 09/23/2021 DTap/Tdap Vaccines (2 - Td or Tdap) 06/20/2023 06/20/2013 Mammogram 01/18/2024 01/17/2023, 0505/2023, 06/27/2013 COVID-19 Vaccine ( - season) 2024 [...] Declined After Education) Depression Monitoring 05/16/2025 05/16/2024 Albumin/Creatinine Ratio 09/01/2026 09/01/2023 Lipid Panel 05/11/2027 05/11/2022 Colonoscopy 09/27/2033 09/27/2023 Colorectal Cancer Screening 09/27/2033 HPV (Gardasil) Vaccine Aged Out No lo nger eligible based on patient's age to complete this topic MENINGOCOCCAL (MENACTRA/MENVEO) Aged Out No longer eligible based on patient's age to complete this topic documented as of this encounter Medical Devices Implanted Type Area Art History Instructor Device Identifier Shelf Expiration Date Model / Serial / Lot Vitoss Bimodal Foam Pack 10cc - [id number] Implanted:Qty : 2 on 10/11/2017 by Rosendo Nathan, DO at [facility] N/A: Spine Lumbar SARAH : SPINE 03/08/2019 / / [id number] Vitoss Bimodal Foam Pack 10cc - [id number] Implanted:Qty : 1 on 10/11/2017 by Rosendo Nathan, DO at [facility] N/A: Spine Lumbar SARAH : SPINE 02/05/2019 / / [id number] Screw Audie Bina 3 Ti Set - [id number] Implanted:Qty : 4 on 10/11/2017 by Rosendo Nathan DO at [facility] N/A: Spine Lumbar SARAH : SPINE [id number] / / 6.5 X 50 Mm Serrate Screws Implanted:Qty : 2 on 10/11/2017 by Rosendo Nathan DO at [facility] N/A: Spine Lumbar SARAH : SPINE [id number] / / 6.5 X 45 Mm Serrate Screw Implanted:Qty : 2 on 10/11/2017 by Rosendo Nathan DO at [facility] N/A: Spine Lumbar SARAH : SPINE [id number] / / 9 X 23x 6 - 9mm Pl Implanted:Qty : 1 on 10/11/2017 by Rosendo Nathan DO at [facility] N/A: Spine Lumbar SARAH : SPINE [id number] / / Shashank Bina 3 Ti 6x40mm - [id number] Implanted:Qty : 1 on 10/11/2017 by Rosendo Nathan DO at [facility] N/A: Spine Lumbar SARAH : SPINE [id number] / / Shashank Bina 3 Ti 6x45mm - [id number] Implanted:Qty : 1 on 10/11/2017 by Rosendo Nathan DO at [facility] N/A: Spine Lumbar SARAH : SPINE [id number] / / documented as of this encounter Advance Directives * Full Code (Latest Code Status on File) Date Activated Date Inactivated Comments 10/11/2017 9:23 AM 10/13/2017 10:36 PM This order r eflects the patients wishes and were consensually agreed upon. Care Teams Journeyman Pipe Welder Relationship Specialty Start Date End Date Myesha Cavanaugh MD [address] [facility] [place] [address] PCP - General Family Medicine 02/18/22 documented as of this encounter
--- OUTSIDE RECORDS SUMMARY | 2024-11-07 04:09 | External Medical Summary | Summary of Care ---
Author Name Unknown Organization [facility] Address [address] [facility] [place] [address] Phone [phone] Care Team Providers Care Bisque Placer Name Role Phone Олег Frias MD Primary Care Provid er Reason for Visit * Reason Comments eRx-Medication Refill Encounter Details Date Type Department Care Team (Late st Contact Info) Description 06/29/2024 Refill [facility] [address] [place] [phone] Олег Frias MD [address] [place] [address] Encounter for long-term (current) use of medications* Allergies Active Allergy Reactions Criticality Noted Date Comments Amoxicillin 01/05/2017 thrush Latex 06/20/2013 Hives, rash and swelling Lisinopril 06/02/2023 COUGH Nickel Rash 12/03/2020 documented as of this encounter (statuses as of 07/04/2024) Medications Medication Sig Dispensed Refills Start Date End Date Status Compressor NebulizerIndicati ons:Moderate persistent asthma without complication,COPD [...] CHEW CAPSULE 90 Capsule 3 12/18/2023 Active FLUoxetine HCl 20 MG Oral Capsule [...] on 05/28/2024 Dulera 200-5 MCG/ACT Inhalation Aerosol (Mometasone-Formo terol)Indications [...] 04/18/2024 Active Folic Acid 1 MG Oral TabletIndications :Anemia due to folic acid deficiency, unspecified deficiency type Take 1 Tablet by mouth in the morning. 90 Tablet 3 05/28/2024 Active hydrOXYzine HCl 50 MG Oral TabletIndications :Anxiety,Pruritus Take 1 Tablet by mouth every 6 hours as needed for Itching or Anxiety. 60 Tablet 5 05/28/2024 Active Pregabalin 150 MG Oral Capsule (Lyrica)Indicatio [...] a week. 4 Patch 2 06/28/2024 Active Losartan Potassium 50 MG Oral Tablet (Cozaar) TAKE 1 TABLET BY MOUTH IN THE MORNING 30 Tablet 07/04/2024 Active traZODone HCl 50 MG Oral Tablet (Desyrel)Indicati ons:Major depressive disorder with single episode, in full remission (HCC) TAKE 1 TABLET BY MOUTH AT BEDTIME 90 Tablet 1 01/17/2024 07/02/20 24 Discontinued Losartan Potassium 50 MG Oral Tablet (Cozaar) Take 1 Tablet by mouth in the morning. 30 Tablet 5 01/18/2024 07/04/20 24 Discontinued documented as of this encounter [...] Telephone Encounter - Олег Frias MD - 07/04/2024 2:06 PM EDT Signed Prescriptions: Disp Refills Losartan Potassium 50 MG Oral Tablet (Coza*30 Tab*0 Sig: TAKE 1 TABLET BY MOUTH IN THE MORNING Authorizing Provider: ОЛЕГ FRIAS * Telephone Encounter - Chel Gibson basic sciences professor - 07/02/2024 3:54 PM EDTPending Prescriptions: Disp Refills Losartan Potassium 50 MG Oral Tablet (Coza*30 Tab*0 Sig: TAKE 1 TABLET BY MOUTH IN THE MORNING * Telephone Encounter - Chel Gibson basic sciences professor - 07/02/2024 3:53 PM EDT Received message from [facility] regarding patient needing labs. Call Placed, Pt was agreeable to have labs drawn but would prefer to walk-in at their convenience. Thank you, Chel Gibson [facility] Informatics Consultant II [facility] 07/02/2024,3:53 PM * Telephone Encounter - Mandy Hurt [facility] - 07/02/2024 4:53 AM EDTPending Prescriptions: Disp Refills Losartan Potassium 50 MG Oral Tablet (Coza*30 Tab*0 Sig: TAKE 1 TABLET BY MOUTH IN THE MORNING * Telephone Encounter - Mandy Hurt [facility] - 07/02/2024 4:52 AM EDT Unable to authorize medication refills for pended medication(s) at this time. Per refill protocol patient should have BMP on file within past year. Reviewed AMP report, Care Gaps/Health Maintenance, medications list, and for any routine labs typically ordered for this patient. Lab orders placed. Please contact patient to advise of labs ordered for blood draw. Fasting is not required. Advise toobtain labs before requesting the next refill. After contacting patient, please forward request to Олег Frias MD. Thank You, Mandy Hurt [facility] Clinical Pharmacist [facility] ([facility]) [phone] [id number] 07/02/2024, 4:52 AM * Telephone Encounter - Mandy Hurt [facility] - 07/02/2024 4:51 AM EDT Unable to authorize medication refills for pended medication(s) at this time. Part of the protocol criteria used for refill authorization was not satisfied. Patient needs BMP on file since start of Losartan. Please approve if appropriate. Thank You, Mandy Hurt [facility] Clinical Pharmacist [facility] ([facility]) [phone] [id number] 07/02/2024, 4:51 AM * Telephone Encounter - Gray Clements [facility] - 07/01/2024 10:47 AM EDT Postponed until 07/02/24, office visit 07/01/24 Pending Prescriptions: Disp Refills Losartan Potassium 50 MG Oral Tablet (Coz*30 Tab*0 Sig: TAKE 1 TABLET BY MOUTH IN THE MORNING Last Visit: 05/28/2024 (in office), 04/01/2024 (telemedicine) Next Visit: 07/01/2024 If no future appointments scheduled, and last appointment is greater than a year ago, please schedule patient for a follow-up appointment Last date the medication was ordered: 01/18/24 Pharmacy: [facility] [phone] [facility] Is this request for a controlled substance? [...] screening results are reflexed to confirmatory testing. Patient Phone Numbers Labs: Lab Results Component [...] AM HGBA1C 4.2 (L) 11/28/2023 12:29 PM documented in this encounter Plan of Treatment Upcoming Encounters Date Type Department Care Team (Latest Contact Info) Description 08/26/2024 1:00 PM EST Hospital Encounter ENDO [facility], Endoscopy Room [facility] [address] [place] [phone] Omid Snell MD [address] [place] [address] 08/26/2024 1:00 PM EST - 08/26/2024 1:45 PM EST Surgery ENDO [facility], Endoscopy Room [facility] [address] [place] [phone] Omid Snell MD [address] [place] [address] ESOPHAGOGASTRODUODENOSCOPY (EGD), FLEXIBLE, TRANSORAL, ENDOSCOPIC ULTRASOUND 08/30/2024 3:30 PM EST Telemedicine Pharmacy, [employer] [address] [place], [place] [address] Pharmacist2, [facility] [address] [place] [address] 09/30/2024 6:20 PM EST Office Visit [address], [place] [phone] Олег Frias MD [address] [place] [address] Scheduled Orders Name Type Priority Associated Diagnoses Orde r Schedule BASIC METABOLIC PANEL Lab Routine Encounter for long-term (current) use of medications Expected: 07/02/2024 (Approximate), Expires: 07/02/2025 Scheduled Procedures Name Priority Associated Diagnoses Date/Ti [...] this encounter Medical Devices Implanted Type Area Camouflage Assembler Device Identifier Shelf Expiration Date Model / Serial / Lot Vitoss Bimodal Foam Pack 10cc - [id number] Implanted:Qty : 2 on 10/11/2017 by Rosendo Nathan DO at [facility] N/A: Spine Lumbar SARAH : SPINE 03/08/[id number] / / [id number] Vitoss Bimodal Foam Pack 10cc - [id number] Implanted:Qty : 1 on 10/11/2017 by Rosendo Nathan DO at [facility] N/A: Spine Lumbar SARAH : SPINE 02/05/[id number] / / [id number] Screw Audie Bina 3 Ti Set - [id number] Implanted:Qty : 4 on 10/11/2017 by Rosendo Nathan DO at [facility] N/A: Spine Lumbar SARAH : SPINE [id number] / / 6.5 X 50 Mm Serrate Screws Implanted:Qty : 2 on 10/11/2017 by Rosendo Nathan DO at [facility] N/A: Spine Lumbar SARAH : SPINE [id number] / / 6.5 X 45 Mm Serrate Screw Implanted:Qty : 2 on 10/11/2017 by Rosendo Nathan DO at [facility] N/A: Spine Lumbar SARAH : SPINE [id number] / / 9 X 23x 6 - 9mm Pl Implanted:Qty : 1 on 10/11/2017 by Rosendo Nathan, DO at [facility] N/A: Spine Lumbar SARAH : SPINE [id number] / / Shashank Bina 3 Ti 6x40mm - [id number] Implanted:Qty : 1 on 10/11/2017 by Rosendo Nathan, DO at [facility] N/A: Spine Lumbar SARAH : SPINE [id number] / / Shashank Bina 3 Ti 6x45mm - [id number] Implanted:Qty : 1 on 10/11/2017 by Rosendo Nathan, DO at [facility] N/A: Spine Lumbar SARAH : SPINE [id number] / / documented as of this encounter Visit Diagnoses Diagnosis Encounter for long-term (current) use of medications- Primary Encounter for long-term (current) use of other medications Pancreatic cyst Cyst and pseudocyst of pancreas documented in this encounter Advance Directives * Full Code (Latest Code Status on File) Date Activated Date Inactivated Comments 10/11/2017 9:23 AM 10/13/2017 10:36 PM This order r eflects the patients wishes and were consensually agreed upon. Care Teams Bisque Placer Relationship Specialty Start Date End Date Олег Frias MD [address] [place] [address] PCP - General Family Medicine 02/18/22 documented as of this encounter
--- OUTSIDE RECORDS SUMMARY | 2024-11-07 04:09 | External Medical Summary | Summary of Care ---
Author Name Unknown Organization [facility] Address [address] [facility] [place] [address] Phone [phone] Care Team Providers Care Grinder Machine Setter Name Role Phone Myesha Cavanaugh MD Primary Care Provid er Encounter Details Date Type Department Care Team (Late st Contact Info) Description 08/26/2024 Telephone Gastroenterology, 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 [...] as of this encounter (statuses as of 08/27/2024) Active Problems Problem Noted Date Diagnosed Date [...] as of this encounter (statuses as of 08/27/2024) Resolved Problems Problem Noted Date Diagnosed Date Resolved Date Food insecurity 04/19/2021 08/26/2021 Overview: Per [facility] Protocol Asthma exacerbation 03/30/2015 07/07/20 17 Moderate persistent asthma 11/09/2014 0 03/30/2015 Overview (11/13/2014): PFT Pneumonitis 07/24/2014 01/06/2022 Asthma exacerbation 07/24/2014 03/30/20 15 documented as of this encounter (statuses as of 08/27/2024) Immunizations Name Administration Dates Next Due PPD [...] 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 documented in this encounter Plan of Treatment Upcoming Encounters Date Type Department Care Team (Late st Contact Info) Description 08/27/2024 1:00 PM EST Office Visit [facility] [address] [place] [phone] Myesha Cavanaugh MD [address] [place] [address] 09/19/2024 3:30 PM EST Telemedicine Pharmacy, [facility] [address] [address] [facility] [address] [place] [address] 09/30/2024 6:20 PM EST Office Visit Family Practice, [facility] [address] [facility] [place] [phone] Myesha Cavanaugh MD [address] [facility] [place] [address] Scheduled Procedures Name Priority Associated Diagnoses Date/Ti [...] encounter Medical Devices Implanted Type Area Technical Inspector Device Identifier Shelf Expiration Date Model / Serial / Lot Vitoss Bimodal Foam Pack 10cc - [id number] Implanted:Qty : 2 on 10/11/2017 by Rosendo Nathan, DO at [facility] N/A: Spine Lumbar SARAH : SPINE 03/08/2019 / / [id number] Vitoss Bimodal Foam Pack 10cc - [id number] Implanted:Qty : 1 on 10/11/2017 by Rosendo Nathan, DO at [facility] N/A: Spine Lumbar SARAH : SPINE 02/05/2019 / / [id number] Screw Aduie Bina 3 Ti Set - [id number] Implanted:Qty : 4 on 10/11/2017 by Rosendo Nathan, DO at [facility] N/A: Spine Lumbar SARAH : SPINE [id number] / / 6.5 X 50 Mm Serrate Screws Implanted:Qty : 2 on 10/11/2017 by Rosendo Nathan, DO at [facility] N/A: Spine Lumbar SARAH : SPINE [id number] / / 6.5 X 45 Mm Serrate Screw Implanted:Qty : 2 on 10/11/2017 by Rosendo Nathan DO at [facility] N/A: Spine Lumbar SARAH : SPINE [id number] / / 9 X 23x 6 - 9mm Pl Implanted:Qty : 1 on 10/11/2017 by Rosendo Nathan DO at [facility] N/A: Spine Lumbar SARAH : SPINE [id number] / / Shashank Bina 3 Ti 6x40mm - [id number] Implanted:Qty : 1 on 10/11/2017 by Rosendo Nathan DO at [facility] N/A: Spine Lumbar SARAH : SPINE [id number] / / Shashank Bina 3 Ti 6x45mm - [id number] Implanted:Qty : 1 on 10/11/2017 by Rosendo Nathan DO at [facility] N/A: Spine Lumbar SARAH : SPINE [id number] / / documented as of this encounter Advance Directives * Full Code (Latest Code Status on File) Date Activated Date Inactivated Comments 10/11/2017 9:23 AM 10/13/2017 10:36 PM This order r eflects the patients wishes and were consensually agreed upon. Care Teams Grinder Machine Setter Relationship Specialty Start Date End Date Myesha Cavanaugh MD [address] [place] [address] PCP - General Family Medicine 02/18/22 documented as of this encounter
--- OUTSIDE RECORDS SUMMARY | 2024-11-07 04:09 | External Medical Summary | Summary of Care ---
Author Name Unknown Organization [facility] Address [address] [facility] [place] [address] Phone [phone] Care Team Providers Care Hvac Project Manager Name Role Phone Myesha Cavanaugh MD Primary Care Provid er Encounter Details Date Type Department Care Team (Late st Contact Info) Description 08/26/2024 Telephone Gastroenterology, [facility] [address] [place] [address] Omid Snell MD [address] [place] [address] Allergies Active Allergy Reactions Criticality Noted Date Comments Amoxicillin 01/05/2017 thrush Latex 06/20/2013 Hives, rash and swelling Lisinopril 06/02/2023 COUGH Nickel Rash 12/03/2020 documented as of this encounter (statuses as of 08/26/2024) Medications Compressor NebulizerIndicat ions:Moderate persistent asthma without complication,MARBLE SETTER D, 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 Use [...] as of this encounter (statuses as of 08/26/2024) Active Problems Problem Noted Date Diagnosed Date [...] as of this encounter (statuses as of 08/26/2024) Resolved Problems Problem Noted Date Diagnosed Date Resolved Date Food insecurity 04/19/2021 08/26/2021 Overview: Per [facility] Protocol Asthma exacerbation 03/30/2015 07/07/20 17 Moderate persistent asthma 11/09/2014 0 03/30/2015 Overview (11/13/2014): PFT Pneumonitis 07/24/2014 01/06/2022 Asthma exacerbation 07/24/2014 03/30/20 15 documented as of this encounter (statuses as of 08/26/2024) Immunizations Name Administration Dates Next Due PPD [...] 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 documented in this encounter Plan of Treatment Upcoming Encounters Date Type Department Care Team (Late st Contact Info) Description 08/27/2024 1:00 PM EST Office Visit [facility] [address] [phone] Myesha Cavanaugh MD [address] [place] [address] 09/19/2024 3:30 PM EST Telemedicine Pharmacy, [facility] [address] [place] [address] [facility] [address] [place] [address] 09/30/2024 6:20 PM EST Office Visit Family Practice, [facility] [address] [facility] [place] [phone] Myesha Cavanaugh MD [address] [facility] [place] [address] Scheduled Procedures Name Priority Associated Diagnoses Date/Ti me ESOPHAGOGASTRODUODENOSCOPY ( EGD), FLEXIBLE, TRANSORAL, ENDOSCOPIC ULTRASOUND Recall Pancreatic cyst 08/26/2024 12:52 PM EST COLONOSCOPY FLEXIBLE PROXIMA L DIAGNOSTIC [...] 07/16/2013 DISCUSS TOBACCO CESSATION (REFER TO SMARTSET #3931) 01/06/2023 01/06/2022, 09/23/2021 DTap/Tdap Vaccines (2 - [...] this encounter Medical Devices Implanted Type Area Drip Molder Device Identifier Shelf Expiration Date Model / Serial / Lot Vitoss Bimodal Foam Pack 10cc - [id number] Implanted:Qty : 2 on 10/11/2017 by Rosendo Nathan, [facility] N/A: Spine Lumbar SARAH : SPINE 03/08/2019 / / [id number] Vitoss Bimodal Foam Pack 10cc - [id number] Implanted:Qty : 1 on 10/11/2017 by Rosendo Nathan DO at [facility] N/A: Spine Lumbar SARAH : SPINE 02/05/2019 / / [id number] Screw Audie Bina 3 Ti Set - [id number] Implanted:Qty : 4 on 10/11/2017 by Rosendo Nathan DO at [facility] N/A: Spine Lumbar SARAH : SPINE [id number] / / 6.5 X 50 Mm Serrate Screws Implanted:Qty : 2 on 10/11/2017 by Rosendo Nathan, at [facility] N/A: Spine Lumbar SARAH : SPINE [id number] / / 6.5 X 45 Mm Serrate Screw Implanted:Qty : 2 on 10/11/2017 by Rosendo Nathan, at [facility] N/A: Spine Lumbar SARAH : SPINE [id number] / / 9 X 23x 6 - 9mm Pl Implanted:Qty : 1 on 10/11/2017 by Rosendo Nathan, [facility] N/A: Spine Lumbar SARAH : SPINE [id number] / / Shashank Bina 3 Ti 6x40mm - [id number] Implanted:Qty : 1 on 10/11/2017 by Rosendo Nathan, [facility] N/A: Spine Lumbar SARAH : SPINE [id number] / / Shashank Bina 3 Ti 6x45mm - [id number] Implanted:Qty : 1 on 10/11/2017 by Rosendo Nathan, [facility] N/A: Spine Lumbar SARAH : SPINE [id number] / / documented as of this encounter Advance Directives * Full Code (Latest Code Status on File) Date Activated Date Inactivated Comments 10/11/2017 9:23 AM 10/13/2017 10:36 PM This order r eflects the patients wishes and were consensually agreed upon. Care Teams Hvac Project Manager Relationship Specialty Start Date End Date Myesha Cavanaugh MD [address] [place] [address] PCP - General Family Medicine 02/18/22 documented as of this encounter
--- OUTSIDE RECORDS SUMMARY | 2024-11-07 04:09 | External Medical Summary | Summary of Care ---
Author Name Unknown Organization [facility] Address [address] [place] [address] Phone [phone] Care Team Providers Care Product Marketing Coordinator Name Role Phone Олег Cavanaugh MD Primary Care Provid er Reason for Visit * Reason Comments eRx-Medication Refill Encounter Details Date Type Department Care Team (Late st Contact Info) Description 07/31/2024 Refill [facility] [address] [place] [address] Олег Cavanaugh MD [address] [place] [address] Allergies Active Allergy Reactions Criticality Noted Date Comments Amoxicillin 01/05/2017 thrush Latex 06/20/2013 Hives, rash and swelling Lisinopril 06/02/2023 COUGH Nickel Rash 12/03/2020 documented as of this encounter (statuses as of 08/01/2024) Medications Compressor NebulizerIndica tions:Moderate persistent asthma without [...] 60mg.. 90 Capsule 1 03/25/20 24 Active amLODIPine Besylate 5 MG Oral Tablet (Norvasc)Indica tions:HTN, goal below 140/90 TAKE 1 TABLET BY MOUTH IN THE MORNING 90 Tablet 1 03/29/20 24 Active Azithromycin 250 MG Oral Tablet (Zithromax)Yun cations:Bronchi tis, complicated Take 2 tabs by mouth on the first day, then 1 tab daily on days two through five 6 Tablet 04/01/20 24 Active Additional Information Patient not taking.Reported on 05/28/2024 Dulera 200-5 MCG/ACT Inhalation Aerosol (Mometasone-For moterol)Indicat ions:COPD, 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) Inhale 2 Puffs by mouth in the morning and 2 Puffs before bedtime. 13 g 11 04/01/20 24 Active Cyclobenzaprine HCl 5 MG Oral Tablet (Flexeril)Indic ations:Spasm of muscle TAKE 1 TABLET BY MOUTH THREE TIMES DAILY NEEDED FOR MUSCLE SPASM 60 Tablet 04/01/20 24 Active Albuterol Sulfate (2.5 MG/3ML) [...] 24 Active hydrOXYzine HCl 50 MG Oral TabletIndicatio ns:Anxiety,Prur itus Take 1 Tablet by mouth every 6 hours as needed for Itching or Anxiety. 60 Tablet 5 05/28/20 24 Active Pregabalin 150 MG Oral Capsule (Lyrica)Indicat [...] daily 60 Capsule 5 06/03/20 24 Active Buprenorphine 7.5 MCG/HR Transdermal Patch Weekly (Butrans)Indica tions:Spinal stenosis of lumbar region with neurogenic claudication Place 7.5 mcg/hr topically on the skin once a week. 4 Patch 2 06/28/20 24 Active Fluticasone-Ume clidin-Vilant 100-62.5-25 MCG/ACT Aerosol Powder Breath Activated (Trelegy Ellipta)Indicat ions:COPD, 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) Inhale 1 Puff by mouth in the morning. 60 Blister Dosing Unit 5 07/01/20 24 Active traZODone HCl 50 MG Oral Tablet (Desyrel)Indica tions:Major depressive disorder with single episode, in full remission (HCC) TAKE 1 TABLET BY MOUTH AT BEDTIME 90 Tablet 3 07/02/20 24 Active predniSONE 10 MG Oral Tablet (Deltasone)Yun cations:Bronchi tis, complicated Take 5 tabs for 2 days, 4 tabs for 2 days, 3 tabs for 2 days, 2 tabs for 2 days 1 tab for 2 days 30 Tablet 07/17/20 24 Active Losartan Potassium 50 MG Oral Tablet (Cozaar) TAKE 1 TABLET BY MOUTH IN THE MORNING 90 Tablet 1 08/01/20 24 Active Losartan Potassium 50 MG Oral Tablet (Cozaar) TAKE 1 TABLET BY MOUTH IN THE MORNING 30 Tablet 07/04/20 24 024 Discontinued documented as of this encounter (statuses as of 08/01/2024) Active Problems Problem Noted Date Diagnosed Date [...] as of this encounter (statuses as of 08/01/2024) Resolved Problems Problem Noted Date Diagnosed Date Resolved Date Food insecurity 04/19/2021 08/26/2021 Overview: Per [facility] Protocol Asthma exacerbation 03/30/2015 07/07/20 17 Moderate persistent asthma 11/09/2014 0 03/30/2015 Overview (11/13/2014): PFT Pneumonitis 07/24/2014 01/06/2022 Asthma exacerbation 07/24/2014 03/30/20 15 documented as of this encounter (statuses as of 08/01/2024) Immunizations Name Administration Dates Next Due PPD [...] 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 Not [...] encounter Miscellaneous Notes * Telephone Encounter - Moises Valdez, [facility] - 08/01/2024 11:54 AM ESTSigned Prescriptions: Disp Refills Losartan Potassium 50 MG Oral Tablet (Coza*90 Tab*1 Sig: TAKE 1 TABLET BY MOUTH IN THE MORNINGAuthorizing Provider: ОЛЕГ CAVANAUGH User: MOISES VALDEZ documented in this encounter Plan of Treatment Upcoming Encounters Date Type Department Care Team (Latest Contact Info) Description 08/26/2024 1:00 PM EST Hospital Encounter ENDO [facility], Endoscopy Room [facility] [address] [place] [phone] Omid Snell MD [address] [place] [address] 08/26/2024 1:00 PM EST - 08/26/2024 1:45 PM EST Surgery ENDO [facility], Endoscopy Room [facility] [address] [place] [phone] Omid Snell MD [address] [place] [address] ESOPHAGOGASTRODUODENOSCOPY (EGD), FLEXIBLE, TRANSORAL, ENDOSCOPIC ULTRASOUND 08/27/2024 1:00 PM EST Office Visit [facility] [address] [phone] Олег Cavanaugh MD [address] [facility] [place] [address] 09/02/2024 3:30 PM EST Telemedicine Pharmacy, [facility] [address] [place] [address] [facility] [address] [place] [address] 09/30/2024 6:20 PM EST Office Visit [facility] [address] [phone] Олег Cavanaugh MD [address] [place] [address] Scheduled Procedures Name Priority Associated Diagnoses Date/Ti [...] 06/20/2023 06/20/2013 Mammogram 01/18/2024 01/17/2023, 05/2023, 06/27/2013 COVID-19 Vaccine ( - season) [...] this encounter Medical Devices Implanted Type Area [employer] Device Identifier Shelf Expiration Date Model / Serial / Lot Vitoss Bimodal Foam Pack 10cc - [id number] Implanted:Qty : 2 on 10/11/2017 by Rosendo Nathan DO [facility] N/A: Spine Lumbar SARAH : SPINE 03/08/2019 / / [id number] Vitoss Bimodal Foam Pack 10cc - [id number] Implanted:Qty : 1 on 10/11/2017 by Rosendo Nathan DO at [facility] N/A: Spine Lumbar SARAH : SPINE 02/05/2019 / / [id number] Screw Audie Bina 3 Ti Set - [id number] Implanted:Qty : 4 on 10/11/2017 by Rosendo Nathan DO at [facility] N/A: Spine Lumbar SARAH : SPINE [id number] / / 6.5 X 50 Mm Serrate Screws Implanted:Qty : 2 on 10/11/2017 by Rosendo Nathan DO at [facility] N/A: Spine Lumbar SARAH : SPINE [id number] / / 6.5 X 45 Mm Serrate Screw Implanted:Qty : 2 on 10/11/2017 by Rosendo Nathan DO at [facility] N/A: Spine Lumbar SARAH : SPINE [id number] / / 9 X 23x 6 - 9mm Pl Implanted:Qty : 1 on 10/11/2017 by Rosendo Nathan DO at [facility] N/A: Spine Lumbar SARAH : SPINE [id number] / / Shashank Bina 3 Ti 6x40mm - [id number] Implanted:Qty : 1 on 10/11/2017 by Rosendo Nathan, [facility] N/A: Spine Lumbar SARAH : SPINE [id number] / / Shashank Bina 3 Ti 6x45mm - [id number] Implanted:Qty : 1 on 10/11/2017 by Rosendo Nathan, DO [facility] N/A: Spine Lumbar SARAH : SPINE [id number] / / documented as of this encounter Advance Directives * Full Code (Latest Code Status on File) Date Activated Date Inactivated Comments 10/11/2017 9:23 AM 10/13/2017 10:36 PM This order r eflects the patients wishes and were consensually agreed upon. Care Teams Product Marketing Coordinator Relationship Specialty Start Date End Date Олег Cavanaugh MD [address] [facility] [place], [place] [phone] PCP - General Family Medicine 02/18/22 documented as of this encounter
--- OUTSIDE RECORDS SUMMARY | 2024-11-07 04:09 | External Medical Summary | Summary of Care ---
Author Name Unknown Organization [facility] Address [address] [place] [address] Phone [phone] Care Team Providers Care Pony Cylinder Press Operator Name Role Phone Myesha Cavanaugh MD Primary Care Provid er Reason for Visit * Reason Onset Date Comments Other 04/29/2024 Encounter Details Date Type Department Care Team (Late st Contact Info) Description 04/29/2024 Telephone [facility] [address] [place] [address] Myesha Cavanaugh MD [address] [place] [address] Other Allergies Active Allergy Reactions Criticality Noted Date Comments Amoxicillin 01/05/2017 thrush Latex 06/20/2013 Hives, rash and swelling Lisinopril 06/02/2023 COUGH Nickel Rash 12/03/2020 documented as of this encounter (statuses as of 07/29/2024) Medications Compressor NebulizerIndica tions:Moderate persistent asthma without [...] WHEEZING 54 g 2 04/18/20 24 Active traZODone HCl 50 MG Oral Tablet (Desyrel)Indica tions:Major depressive disorder with single episode, in full remission (HCC) TAKE 1 TABLET BY MOUTH AT BEDTIME 90 Tablet 1 01/17/20 24 024 Discontinued LORazepam 0.5 MG Oral Tablet (Ativan)Indicat ions:Anxiety TAKE 1 TABLET BY MOUTH ONCE DAILY NEEDED FOR ANXIETY 30 Tablet 01/18/20 24 024 Discontinued Losartan Potassium 50 MG Oral Tablet (Cozaar) Take 1 Tablet by mouth in the morning. 30 Tablet 5 01/18/20 24 024 Discontinued documented as of this encounter (statuses as of 07/29/2024) Active Problems Problem Noted Date Diagnosed Date Age-related nuclear cataract, left eye MGUS (monoclonal [...] as of this encounter (statuses as of 07/29/2024) Resolved Problems Problem Noted Date Diagnosed Date Resolved Date Food insecurity 04/19/2021 08/26/2021 Overview: Per [facility] Protocol Asthma exacerbation 03/30/2015 07/07/20 17 Moderate persistent asthma 11/09/2014 0 03/30/2015 Overview (11/13/2014): PFT Pneumonitis 07/24/2014 01/06/2022 Asthma exacerbation 07/24/2014 03/30/20 15 documented as of this encounter (statuses as of 07/29/2024) Immunizations Name Administration Dates Next Due PPD [...] 05/16/2024 Does the household have a re lar [...] 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 * Telephone Encounter - Aslhy Arellano OSA - 04/29/2024 10:59 AM EDT rEma called [employer]. She state the pre-authorization for Buprenorphine 5 MCG/HR has been declined. She also mentioned about Oxycodone 5 MG[address] She states for Dr[address] Cavanaugh. documented in this encounter Plan of Treatment Upcoming Encounters Date Type Department Care Team (Latest Contact Info) Description 08/26/2024 1:00 PM EST Hospital Encounter [facility]O [facility], Endoscopy Room [facility] [address] [place] [phone] Omdi Snell MD [address] [place] [address] 08/26/2024 1:00 PM EST - 08/26/2024 1:45 PM EST Surgery [facility], Endoscopy Room [facility] [address] [place] [phone] Omid Snell MD [address] [place] [address] ESOPHAGOGASTRODUODENOSCOPY (EGD), FLEXIBLE, TRANSORAL, ENDOSCOPIC ULTRASOUND 09/02/2024 3:30 PM EST Telemedicine Pharmacy, [facility] [address] [place] [address] [facility] [address] [place] [address] 09/30/2024 6:20 PM EST [facility] [address] [address] Myesha Cavanaugh MD [address] [place] [address] Scheduled Procedures Name Priority Associated Diagnoses Date/Ti [...] this encounter Medical Devices Implanted Type Area Planing Machine Operator Device Identifier Shelf Expiration Date Model / Serial / Lot Vitoss Bimodal Foam Pack 10cc - [id number] Implanted:Qty : 2 on 10/11/2017 by Rosendo Nathan DO at [facility] N/A: Spine Lumbar SARAH : SPINE 03/08/[id number] / / [id number] Vitoss Bimodal Foam Pack 10cc - [id number] Implanted:Qty : 1 on 10/11/2017 by Rosendo Nathan DO at [facility] N/A: Spine Lumbar SARAH : SPINE 02/05/[id number] / / [id number] Screw Audie Bina 3 Ti Set - [id number] Implanted:Qty : 4 on 10/11/2017 by Rosendo Nathan DO at [facility] N/A: Spine Lumbar SARAH : SPINE [id number] / / 6.5 X 50 Mm Serrate Screws Implanted:Qty : 2 on 10/11/2017 by Rosendo Nathan DO at [facility] N/A: Spine Lumbar SARAH : SPINE [id number] / / 6.5 X 45 Mm Serrate Screw Implanted:Qty : 2 on 10/11/2017 by Rosendo Nathan DO at [facility] N/A: Spine Lumbar SARAH : SPINE [id number] / / 9 X 23x 6 - 9mm Pl Implanted:Qty : 1 on 10/11/2017 by Rosendo Nathan DO at [facility] N/A: Spine Lumbar SARAH : SPINE [id number] / / Shashank Bina 3 Ti 6x40mm - [id number] Implanted:Qty : 1 on 10/11/2017 by Rosendo Nathan DO at [facility] N/A: Spine Lumbar SARAH : SPINE [id number] / / Shashank Bina 3 Ti 6x45mm - [id number] Implanted:Qty : 1 on 10/11/2017 by Rosendo Nathan DO at [facility] N/A: Spine Lumbar SARAH : SPINE [id number] / / documented as of this encounter Advance Directives * Full Code (Latest Code Status on File) Date Activated Date Inactivated Comments 10/11/2017 9:23 AM 10/13/2017 10:36 PM This order r eflects the patients wishes and were consensually agreed upon. Care Teams Pony Cylinder Press Operator Relationship Specialty Start Date End Date Myesha Cavanaugh MD [address] [place] [address] PCP - General Family Medicine 02/18/22 documented as of this encounter
--- OUTSIDE RECORDS SUMMARY | 2024-11-07 04:09 | External Medical Summary | Summary of Care ---
Author Name Unknown Organization [facility] Address [address] [facility] [place] [address] Phone [phone] Care Team Providers Care Unit Trust Manager Name Role Phone Myesha Cavanaugh MD Primary Care Provid er Reason for Visit * Auth/Cert Specialty Diagnoses / Procedures Referred By Jun t Referred To Contact Diagnoses Pancreatic cyst Pancreatic cyst [K86.2] Procedures EGD, W/ENDOSCOPIC US ESOPHAGOGASTRODUODENOSCOPY (EGD), FLEXIBLE, TRANSORAL, ENDOSCOPIC ULTRASOUND Omid Snell MD [address] [place] [address] Phone: tel: fax: ENDO [facility], Endoscopy Room [facility] [address] [place] [address] Phone: tel: Referral ID Status Reason Start Date Expiration Date Visits Re quested Visits Authorized [id number] Encounter Details Date Type Department Care Team (Latest Contact Info) Description 08/26/2024 12:17 PM EST - 08/26/2024 1:51 PM EST Hospital Encounter ENDO [facility], Endoscopy Room [facility] [address] [place] [address] Omid Snell MD [address] [place] [address] Upper Endoscopic US Discharge Disposition: Home - Self Care Allergies Active Allergy Reactions Criticality Noted Date Comments Amoxicillin 01/05/2017 thrush Latex 06/20/2013 Hives, rash and swelling Lisinopril 06/02/2023 COUGH Nickel Rash 12/03/2020 documented as of this encounter (statuses as of 08/27/2024) Medications Compressor NebulizerIndicat ions:Moderate persistent asthma without complication,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, 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) Inhale via [...] 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 file Not on file documented as of this encounter Last Filed Vital Signs Vital Sign Reading Time Taken Comments Blood Pressure 117/85 08/26/2024 1:26 PM EST Pulse 86 08/26/2024 1:26 PM EST Temperature 36.1 C (97 F) 08/26/2024 1:26 PM EST Respiratory Rate 16 08/26/2024 1:26 PM EST Oxygen Saturation 97% 08/26/2024 1:26 PM EST Inhaled Oxygen Concentration - - Weight 56.7 kg (125 lb) 08/26/2024 12:45 PM EST Height 162.6 cm (5' 4.02") 08/26/2024 12:[address] Body Mass Index 21.45 08/26/2024 12:45 PM EST documented in this encounter Functional Status * Are you deaf or do you have serious difficulty hearing? Answer Date of Assessment Author No 10/12/2017 10:29 AM EST Ashley Saba RN * Are you blind or do you have serious difficulty seeing, even when wearing glasses? Answer Date of Assessment Author No 10/12/2017 10:29 AM EST Ashley Saba RN * Do you have serious difficulty [...] H&P Notes * Omid Snell MD - 08/26/2024 12:24 PM EST Endoscopy Pre-Procedure Assessment Name: Poppy Adhikari Date: 08/26/2024 Time: 12:24 PM Procedure(s): Endoscopic Ultrasound; with Indication(s) of evaluation [...] informed consent for the procedure was obtained. Wt 56.7 kg (125 lb) | LMP 07/11/2013 | BMI 21.46 kg/m | BSA 1.6 m Review of patient's allergies indicates: Allergen Reactions Amoxicillin thrush Latex Hives, rash and swelling Lisinopril COUGH Nickel Rash Prior to Admission medications Medication Sig Last Dose Discont. Losartan Potassium 50 MG Oral Tablet (Cozaar) TAKE 1 TABLET BY MOUTH IN THE MORNING 08/20/2024 Morning traZODone HCl 50 MG Oral Tablet (Desyrel) TAKE 1 TABLET BY MOUTH AT BEDTIME 08/19/2024 Bedtime Qenimzxksrf-Ekbqnhzxe-Bzzrkn 100-62.5-25 MCG/ACT Aerosol Powder Breath Activated (Trelegy Ellipta) Inhale 1 Puff by mouth in the morning. Past Week Buprenorphine 7.5 MCG/HR Transdermal Patch Weekly (Butrans) Place 7.5 mcg/hr topically on the skin once a week. 08/20/2024 Omeprazole 20 MG Oral Capsule Delayed Release (PriLOSEC) Take 1 capsule by mouth twice daily 08/20/2024 hydrOXYzine HCl 50 MG Oral Tablet Take 1 Tablet by mouth every 6 hours as needed for Itching or Anxiety. 08/20/2024 Pregabalin 150 MG Oral Capsule (Lyrica) Take 1 Capsule by mouth in the morning and 1 Capsule beforebedtime. 08/20/2024 FLUoxetine HCl 40 MG Oral Capsule (PROzac) Take 1 capsule by mouth in the morning 08/20/2024 Dulera 200-5 MCG/ACT Inhalation Aerosol (Mometasone-Formoterol) Inhale 2 Puffs by mouth in the morning and 2 Puffs before bedtime. 08/20/2024 FLUoxetine HCl 20 MG Oral Capsule (PROzac) Take 1 Capsule by mouth in the morning. Add to 40mg dosefor total daily dose 60mg.. 08/20/2024 DULoxetine HCl 60 MG Oral Capsule Delayed Release Particles (Cymbalta) TAKE 1 CAPSULE BY MOUTH ONCEDAILY IN THE MORNING DO NOT CUT, CRUSH, OR CHEW CAPSULE 08/20/2024 Acetaminophen 500 MG Oral Tablet (Tylenol) Take 2 Tablets by mouth every 6 hours as needed. 08/20/2024 Doxycycline Hyclate 100 MG Oral Capsule Take 1 Capsule by mouth in the morning and 1 Capsule beforebedtime. Do all this for 7 days. Take for 7 days. predniSONE 10 MG Oral Tablet (Deltasone) Take 5 tabs for 2 days, 4 tabs for 2 days, 3 tabs for 2 days, 2 tabs for 2 days 1 tab for 2 days Patient not taking: Reported on 08/20/2024 Not Taking Folic Acid 1 MG Oral Tablet Take 1 Tablet by mouth in the morning. Albuterol Sulfate HFA 108 (90 Base) MCG/ACT Inhalation Aerosol Solution INHALE 2 PUFFS BY MOUTH EVERY 4 HOURS NEEDED FOR WHEEZING EQ All Day Allergy Relief 10 MG Oral Tablet (Loratadine) Take 1 tablet by mouth once daily Albuterol Sulfate (2.5 MG/3ML) 0.083% Inhalation Nebulization Solution (Proventil) Inhale 1 Vial via nebulizer every 6 hours as needed for Wheezing. J45.40 J44.9 Over 30 Days Azithromycin 250 MG Oral Tablet (Zithromax) Take 2 tabs by mouth on the first day, then 1 tab dailyon days two through five Patient not taking: Reported on 08/20/2024 Not Taking Cyclobenzaprine HCl 5 MG Oral Tablet (Flexeril) TAKE 1 TABLET BY MOUTH THREE TIMES DAILY NEEDED FOR MUSCLE SPASM Over 30 Days amLODIPine Besylate 5 MG Oral Tablet (Norvasc) TAKE 1 TABLET BY MOUTH IN THE MORNING Patient not taking: Reported on 08/20/2024 Not Taking Compressor Nebulizer Inhale via nebulizer. [...] comparison to other patients Omid Snell MD 08/26/2024 documented in this encounter Procedure Notes * Myesha Cavanaugh MD - 08/26/2024 12:25 PM ESTAssociated Order(s): UPPER ENDOSCOPIC U/S [facility] Patient Name: Poppy Adhikari Procedure Date: 08/26/2024 12:25 PM Date of : 1970 Admit Type: Outpatient Note Status: Finalized Date of : 1970 Admit Type: Outpatient Age: 54 Room: Advanced Endo Gender: Female Note Status: Finalized Procedure: Upper EUS Indications: Pancreatic cyst on MRI Providers: Omid Snell MD (Doctor), Toan Lind [...] and oxygen saturations were monitored continuously. The Endoscope was introduced through the mouth, and advanced to the second part of duodenum. The upper EUS was accomplished without difficulty. The patient tolerated the procedure well. The GIF-H180 Endoscope ([id number]) was introduced through the mouth, and advanced to the second part of duodenum. Findings & Specimens: ENDOSCOPIC FINDING: : Ethan-colored mucosa was present. The maximum longitudinal extent of these esophageal mucosal changes was 2 cm in length. Biopsies were taken with a cold forceps for histology. Verification of patient identification for the specimen was done by the physician and nurse using the patient's name and date. The pathology specimen was placed into Bottle A. The entire examined stomach was normal. The duodenal bulb and second portion of the duodenum were normal. ENDOSONOGRAPHIC FINDING: : There was no sign of significant endosonographic abnormality in the ampulla. There was no sign of significant endosonographic abnormality in the common bile duct. The maximum diameter of the duct was 4 mm. There was no sign of significant endosonographic abnormality in the visualized portion of the liver. Homogeneous parenchyma was identified. There was no sign of significant endosonographic abnormality in the entire pancreas. The pancreatic duct measured up to 2 mm in diameter. An anechoic lesion suggestive of a pseudocyst was identified in the uncinate process of the pancreas. The lesion measured 42 mm by 40 mm in maximal cross-sectional diameter. There was a single compartment without septae. The outer wall of the lesion was thick. There was no associated mass. There was internal debris within the fluid-filled cavity. Impression: - Ethan-colored mucosa suspicious for short-segment Metz's esophagus. Biopsied. - Normal stomach. - Normal duodenal bulb and second portion of the duodenum. - There was no sign of significant pathology in the ampulla. - There was no sign of significant pathology in the common bile duct. - There was no evidence of significant pathology in the visualized portion of the liver. - There was no sign of significant pathology in the entire pancreas. - A 40 mm pseudocyst was seen in the uncinate process of the pancreas. Recommendation: - Discharge patient to home. - Repeat the upper endoscopic ultrasound in 3 weeks for retreatment (drainage of the pseudocyst as patient is symptomatic, this is a sequale to her recent acute pancreatitis). - Return to referring physician. Omid Snell MD 08/26/2024 1:35:20 PM This report has been signed electronically. documented in this encounter Nursing Notes * Radhika Mejia RN - 08/26/2024 1:50 PM EST Patient is alert, pain free, passing flatus and tolerating po fluids prior to discharge. Patient has been visited by Dr. Snell. Patient has received and demonstrates understanding of discharge instructions. Patient ambulated to private auto accompanied by endo staff. * Radhika Mejia RN - 08/26/2024 1:13 PM EST Patient transferred to post endo s/p colonoscopy. Patient awake Respirations are even and unlabored on room air. NSR in the 90s on the monitor. Abdomen soft and non distended. Vital signs stable. * Jordi Lind RN - 08/26/2024 1:10 PM EST Specimen(s) and location(s) verified with physician post procedure 1:10 PM Jordi Lind RN See anesthesia record for medication administered during procedure. Jordi Lind RN Pre cleaning of scope at the bedside started by gas technician. * Melva Krause RN - 08/26/2024 12:51 PM EST The following pt discharge instructions reviewed [...] Description 08/27/2024 1:00 PM EST Office [facility] [place] [address] [facility] [place] [phone] Myesha Cavanaugh MD [address] [facility] [place] [address] 09/19/2024 3:30 PM EST Telemedicine Pharmacy, [facility] [address] [facility] [place] [address] [facility] [address] [facility] [place] [address] 09/30/2024 6:20 PM EST [facility] [address] [place] [phone] Myesha Cavanaugh MD [address] [place] [address] Pending Results Name Type Priority Associated Diagnoses Date /Time SURGICAL PATHOLOGY Pathology Routine Pancreatic cyst 08/26/2024 1:02 PM EST Scheduled Orders Name Type Priority Associated Diagnoses Orde r Schedule SURGICAL PATHOLOGY Pathology Routine Pancreatic cyst Release Upon Ordering for 1 Occurrences starting 08/26/2024, 1 completed Scheduled Procedures Name Priority Associated Diagnoses Date/Ti [...] 05/0 05/2023, 06/27/2013 COVID-19 Vaccine ( - 2023- season) 2024 Influenza Vaccine (FLU [...] this encounter Medical Devices Implanted Type Area Telecom Analyst Device Identifier Shelf Expiration Date Model / Serial / Lot Vitoss Bimodal Foam Pack 10cc - [id number] Implanted:Qty : 2 on 10/11/2017 by Rosendo Nathan DO at [facility] N/A: Spine Lumbar SARAH : SPINE 03/08/[id number] / / [id number] Vitoss Bimodal Foam Pack 10cc - [id number] Implanted:Qty : 1 on 10/11/2017 by Rosendo Nathan DO at [facility] N/A: Spine Lumbar SARAH : SPINE 02/05/[id number] / / [id number] Screw Audie Bina 3 Ti Set - [id number] Implanted:Qty : 4 on 10/11/2017 by Rosendo Nathan DO at [facility] N/A: Spine Lumbar SARAH : SPINE [id number] / / 6.5 X 50 Mm Serrate Screws Implanted:Qty : 2 on 10/11/2017 by Rosendo Nathan DO at [facility] N/A: Spine Lumbar SARAH : SPINE [id number] / / 6.5 X 45 Mm Serrate Screw Implanted:Qty : 2 on 10/11/2017 by Rosendo Nathan DO at [facility] N/A: Spine Lumbar SARAH : SPINE [id number] / / 9 X 23x 6 - 9mm Pl Implanted:Qty : 1 on 10/11/2017 by Rosendo Nathan, at [facility] N/A: Spine Lumbar SARAH : SPINE [id number] / / Shashank Bina 3 Ti 6x40mm - [id number] Implanted:Qty : 1 on 10/11/2017 by Rosendo Nathan, at [facility] N/A: Spine Lumbar SARAH : SPINE [id number] / / Shashank Bina 3 Ti 6x45mm - [id number] Implanted:Qty : 1 on 10/11/2017 by Rosendo Nathan, at [facility] N/A: Spine Lumbar SARAH : SPINE [id number] / / documented as of this encounter Procedures Procedure Name Priority Date/Time Associated Diagnosis Comments UPPER ENDOSCOPIC U/S 08/26/2024 12:25 PM EST documented in this encounter Results * UPPER ENDOSCOPIC U/S (08/26/2024 12:25 PM EST) 08/26/2024 12:2 5 PM EST Narrative Procedure Note Myesha Cavanaugh MD - 08/26/2024 12:[address] [facility] Patient Name: Poppy Adhikari Procedure Date: 08/26/2024 12:25 PM Date of : 1970 Admit Type: Outpatient Note Status:Finalized Date of : 1970 Admit Type: Outpatient Age: 54 Room: Advanced [facility] Gender: Female Note Status: Finalized Procedure: Upper EUS Indications: Pancreatic cyst on MRI Providers: Omid Snell MD (Doctor), Toan Lind [...] and oxygen saturations were monitored continuously. The Endoscope wasintroduced through the mouth, and advanced to the second part of duodenum. The upperEUS was accomplished without difficulty. The patient tolerated the procedurewell. The GIF-H180 Endoscope ([id number]) was introduced through the mouth, andadvanced to the second part of duodenum. Findings & Specimens: ENDOSCOPIC FINDING: : Ethan-colored mucosa was present. The maximum longitudinal extent ofthese esophageal mucosal changes was 2 cm in length. Biopsies were taken with a cold forceps forhistology. Verification of patient identification for the specimen was done by the physician and nurseusing the patient's name and date. The pathology specimen was placed into Bottle A. The entire examined stomach was normal. The duodenal bulb and second portion of the duodenum were normal. ENDOSONOGRAPHIC FINDING: : There was no sign of significant endosonographic abnormality in theampulla. There was no sign of significant endosonographic abnormality in thecommon bile duct. The maximum diameter of the duct was 4 mm. There was no sign of significant endosonographic abnormality in thevisualized portion of the liver. Homogeneous parenchyma was identified. There was no sign of significant endosonographic abnormality in theentire pancreas. The pancreatic duct measured up to 2 mm in diameter. An anechoic lesion suggestive of a pseudocyst was identified in theuncinate process of the pancreas. The lesion measured 42 mm by 40 mm in maximal cross-sectionaldiameter. There was a single compartment without septae. The outer wall of the lesion was thick. There was noassociated mass. There was internal debris within the fluid-filled cavity. Impression: - Ethan-colored mucosa suspicious forshort-segment Metz's esophagus. Biopsied. - Normal stomach. - Normal duodenal bulb and second portion of theduodenum. - There was no sign of significant pathology in theampulla. - There was no sign of significant pathology in thecommon bile duct. - There was no evidence of significant pathology inthe visualized portion of the liver. - There was no sign of significant pathology in theentire pancreas. - A 40 mm pseudocyst was seen in the uncinateprocess of the pancreas. Recommendation: - Discharge patient to home. - Repeat the upper endoscopic ultrasound in 3 weeksfor retreatment (drainage of the pseudocyst as patient is symptomatic, this is asequale to her recent acute pancreatitis). - Return to referring physician. Omid Snell MD 08/26/2024 1:35:20 PM This report has been signed electronically. us Myesha Cavanaugh MD GASTRO UPPER Phoebe l Result documented in this encounter Visit Diagnoses Diagnosis Pancreatic cyst Cyst and pseudocyst of pancreas documented in this encounter Administered Medications Inactive Administered Medications - up to 3 most recent administrations Medication Order MAR Action Action Date Dose Rate Site Acetaminophen (Tylenol) tab 650 mg 650 mg, Oral, PRN Pain, Mild, Starting on Mon08/26/24 at 1319, Until Mon08/26/24 at 1752, For 1 dose, Maximum of 4 grams (4000 mg) per day., Post-op Isolyte-S pH 7.4 infusion Intravenous, at 100 mL/hr, Plasma-LYTE 148, isolyte-S, and isolyte-S pH 7.4 are considered equivalent - including for MAR barcode scanning., CONTINUOUS, Starting on Mon08/26/24 at 1300, Until Mon08/26/24 at 1752, Pre-Op Continue from Pre-Op 08/26/2024 12:51 PM EST 100 mL/hr New Bag 08/26/2024 12:49 PM EST 100 mL/hr documented in this encounter Active and Recently Administered Medications Times are shown in EST. Continuous Medication Order 08/24/2024 08/25/2024 08/26/2024 Isolyte-S pH 7.4 infusion Intravenous, at 100 mL/hr, Plasma-LYTE 148, isolyte-S, and isolyte-S pH 7.4 are considered equivalent - including for MAR barcode scanning., CONTINUOUS, Starting on Mon08/26/24 at 1300, Until Mon08/26/24 at 1752, Pre-Op 1249 (New Bag - Prov ider: Melva Krause RN)1251 (Continue from Pre-Op - Provider: HENRY Diego) PRN Medication Order 08/24/2024 08/25/2024 08/26/2024 Acetaminophen (Tylenol) tab 650 mg 650 mg, Oral, PRN Pain, Mild, Starting on Mon08/26/24 at 1319, Until Mon08/26/24 at 1752, For 1 dose, Maximum of 4 grams (4000 mg) per day., Post-op documented in this encounter Advance Directives * Full Code (Latest Code Status on File) Date Activated Date Inactivated Comments 10/11/2017 9:23 AM 10/13/2017 10:36 PM This order r eflects the patients wishes and were consensually agreed upon. Care Teams Unit Trust Manager Relationship Specialty Start Date End Date Myesha Cavanaugh MD [address] [facility] [place] [address] PCP - General Family Medicine 02/18/22 documented as of this encounter
--- OUTSIDE RECORDS SUMMARY | 2024-11-07 04:09 | External Medical Summary | Summary of Care ---
Author Name Unknown Organization [facility] Address [address] [facility] [place] [address] Phone [phone] Care Team Providers Care Assistant Buyer Name Role Phone Myesha Cavanaugh MD Primary Care Provid er Reason for Visit * Reason Comments eRx-Medication Refill Encounter Details Date Type Department Care Team (Late st Contact Info) Description 08/13/[address] 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 Use [...] THE MORNING 90 Tablet 1 4 Active Azithromycin 250 MG Oral Tablet (Zithromax)Indic ations:Bronchiti s, complicated Take 2 tabs by mouth on the first day, then 1 tab daily on days two through five 6 Tablet 4 Active Additional Information Patient not taking.Reported on 05/28/2024 Dulera 200-5 MCG/ACT Inhalation Aerosol (Mometasone-Form oterol)Indicatio [...] for 2 days 30 Tablet 4 Active Losartan Potassium 50 MG Oral Tablet (Cozaar) TAKE 1 TABLET BY MOUTH IN THE MORNING 90 Tablet 1 4 Active documented as of this encounter (statuses as of 08/14/2024) Active Problems Problem Noted Date Diagnosed Date [...] as of this encounter (statuses as of 08/14/2024) Resolved Problems Problem Noted Date Diagnosed Date Resolved Date Food insecurity 04/19/2021 08/26/2021 Overview: Per [facility] Protocol Asthma exacerbation 03/30/2015 07/07/20 17 Moderate persistent asthma 11/09/2014 0 03/30/2015 Overview (11/13/2014): PFT Pneumonitis 07/24/2014 01/06/2022 Asthma exacerbation 07/24/2014 03/30/20 15 documented as of this encounter (statuses as of 08/14/2024) Immunizations Name Administration Dates Next Due PPD [...] 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 on file [...] encounter Miscellaneous Notes * Telephone Encounter - Montez Keller RPh - 08/14/2024 1:49 PM ESTRefused Prescriptions: Disp Refills Montelukast Sodium 10 MG Oral Tablet (Sing*90 Tab*0 Sig: TAKE 1TABLET BY MOUTH AT BEDTIMERefused By: MONTEZ KELLER for Refusal: Patient Should Contact Provider First documented in this encounter Plan of Treatment Upcoming Encounters Date Type Department Care Team (Latest Contact Info) Description 4 1:00 PM EST Hospital Encounter ENDO [facility], Endoscopy Room [facility] [address] [place] [phone] Omid Snell MD [address] [place] [address] 4 1:00 PM EST - 4 1:45 PM EST Surgery ENDO [facility], Endoscopy Room [facility] [address] [place] [phone] Omid Snell MD [address] [place] [address] ESOPHAGOGASTRODUODENOSCOPY (EGD), FLEXIBLE, TRANSORAL, ENDOSCOPIC ULTRASOUND 4 1:00 PM EST Office Visit [facility] [address] [place] [phone] Myesha Cavanaugh MD [address] [place] [address] 5 3:30 PM EST Telemedicine Pharmacy, [facility] [address] [place] [address] [facility] [address] [place] [address] 5 6:20 PM EST Office Visit [facility] [address] [place] [phone] Myesha Cavanaugh MD [address] [place] [address] Scheduled Procedures Name Priority Associated Diagnoses Date/Ti [...] this encounter Medical Devices Implanted Type Area Multi Operation Forming Machine Setter Device Identifier Shelf Expiration Date Model / Serial / Lot Vitoss Bimodal Foam Pack 10cc - [id number] Implanted:Qty : 2 on 10/11/2017 by Rosendo Nathan DO at [facility] N/A: Spine Lumbar SARAH : SPINE 03/08/2019 / / [id number] Vitoss Bimodal Foam Pack 10cc - [id number] Implanted:Qty : 1 on 10/11/2017 by Rosendo Nathan DO at [facility] N/A: Spine Lumbar SARAH : SPINE 02/05/2019 / / [id number] Screw Audie Bina 3 Ti Set - [id number] Implanted:Qty : 4 on 10/11/2017 by Rosendo Nathan DO at [facility] N/A: Spine Lumbar SARAH : SPINE [id number] / / 6.5 X 50 Mm Serrate Screws Implanted:Qty : 2 on 10/11/2017 by Rosendo Nathan DO at [facility] N/A: Spine Lumbar SARAH : SPINE [id number] / / 6.5 X 45 Mm Serrate Screw Implanted:Qty : 2 on 10/11/2017 by Rosendo Nathan DO at [facility] N/A: Spine Lumbar SARAH : SPINE [id number] / / 9 X 23x 6 - 9mm Pl Implanted:Qty : 1 on 10/11/2017 by Rosendo Nathan DO at [facility] N/A: Spine Lumbar SARAH : SPINE [id number] / / Shashank Bina 3 Ti 6x40mm - [id number] Implanted:Qty : 1 on 10/11/2017 by Rosendo Nathan DO at [facility] N/A: Spine Lumbar SARAH : SPINE [id number] / / Shashank Bina 3 Ti 6x45mm - [id number] Implanted:Qty : 1 on 10/11/2017 by Rosendo Nathan DO at [facility] N/A: Spine Lumbar SARAH : SPINE [id number] / / documented as of this encounter Visit Diagnoses Diagnosis Chronic cough Cough Pancreatic cyst Cyst and pseudocyst of pancreas documented in this encounter Advance Directives * Full Code (Latest Code Status on File) Date Activated Date Inactivated Comments 10/11/2017 9:23 AM 10/13/2017 10:36 PM This order r eflects the patients wishes and were consensually agreed upon. Care Teams Assistant Buyer Relationship Specialty Start Date End Date Myesha Cavanaugh MD [address] [place] [address] PCP - General Family Medicine 02/18/22 documented as of this encounter
--- OUTSIDE RECORDS SUMMARY | 2024-11-07 04:09 | External Medical Summary | Summary of Care ---
Author Name Unknown Organization [facility] Address [address] [place] [address] Phone [phone] Care Team Providers Care Machine Stemmer Name Role Phone Олег Frias MD Primary Care Provid er Reason for Referral * Evaluate & Treat - Unlimited Visits (Within 10 days (routine)) - Pending Review Specialty Diagnoses / Procedures Referred By Jun garay Referred To Contact Gastroenterology Diagnoses Pancreas cyst Олег Frias MD [address] [place] [address] Referral ID Status Reason Start Date Expiration Date Visits Requested Visits Authorized [id number] Pending Review Specialty Services Required 4 [phone] Question Answer Referral Priority Within 10 days (routine) Where should this appointment be scheduled? [facility] For what condition is the patient being referred? All Gastro Conditions Comments Pancreatic cyst Reason for Visit * Reason Onset Date Comments Test Results 07/01/2024 Unexpected or In determinate Result Encounter Details Date Type Department Care Team (Late st Contact Info) Description 07/01/2024 Telephone Laboratory, [place] [address] [place] [address] Олег Frias MD [address] [place] [address] Test Results (Unexpected or Indeterminate ... Allergies [...] a week. 4 Patch 2 06/28/2024 Active traZODone HCl 50 MG Oral Tablet [...] Encounter - Олег Frias MD - 07/04/2024 2:54 PM EDT Refill sent 07/02. * Telephone Encounter - Blaire Venegas LPN - 07/02/2024 1:29 PM EDT Called pt and made her aware of message below. She also was checking on the refill over for her trazodone * Telephone Encounter - Yanira Israel OSA - 07/02/2024 8:58 AM EDT EUS 08/26 * Addendum Note - Omid Keenan MD - 07/02/2024 8:23 AM EDTAddended by: OMID KEENAN on: 07/02/2024 08:23 AM Modules accepted: Orders * Telephone Encounter - Omid Keenan MD - 07/02/2024 8:22 AM EDT Please schedule EUS with me next available up to 2 months at [facility]. * Addendum Note - Олег Frias MD - 07/01/2024 5:18 PM EDTAddended by: ОЛЕГ FRIAS on: 07/01/2024 05:18 PM Modules accepted: Orders * Telephone Encounter - Олег Frias MD - 07/01/2024 5:14 PM EDT Gastro referral placed to follow pancreatic cyst * Telephone Encounter - Osiris Boyd OSA - 07/01/2024 1:31 PM EDT Hello- The radiologist discovered an unexpected or indeterminate finding on Poppy Adhikari ([id number]) and asks that you review the following report. Study Type: MRI PANCREAS W WO CONTRAST Date of Study: 06/29/2024 IMPRESSION 1. There is a complex cystic lesion in the head of the pancreas measuring 2.5 x 2.7 cm, new since CT dated 10/31/2023, without enhancement, may be a pseudocyst. A short-term follow up contrast-enhanced CT or MRI in 2 months is suggested for re-evaluation. 2. The previously seen small hypodense lesion in the tail of the pancreas is not definitively seen on this exam. 3. Patchy pulmonary consolidations and nodules in the right middle lobe and bilateral lower lobes may represent infection. Please correlate clinically. 4. Other incidental findings as detailed above. Please respond to this encounter to acknowledge receipt of this message and take responsibility to ensure this report is reviewed. Thank you, Osiris Boyd, ARTI Client Service [facility] documented in this encounter Plan of Treatment Upcoming Encounters Date Type Department Care Team (Latest Contact Info) Description 08/26/2024 1:00 PM EST Hospital En[facility] End[facility] Room [facility] [address] [place] [phone] Omid Keenan MD [address] [place] [address] 08/26/2024 1:00 PM EST - 08/26/2024 1:45 PM EST Surgery ENDO [facility], Endoscopy Room [facility] [address] [place] [address] Omid Keenan MD [address] [place] [address] ESOPHAGOGASTRODUODENOSCOPY (EGD), FLEXIBLE, TRANSORAL, ENDOSCOPIC ULTRASOUND 08/30/2024 3:30 PM EST Telemedicine Pharmacy, [facility] [address] [facility] [place] [address] Pharmacist2, [facility] [address] [place] [address] 09/30/2024 6:20 PM EST Office Visit [facility] [address] [facility], [place] [address] Олег Frias MD [address] [facility], [place] [id number] Scheduled Orders Name Type Priority Associated Diagnoses Orde r Schedule US ENDOSCOPIC Medical Imaging Routine Pancreas cyst Expected: 07/02/2024, Expires: 08/02/2025 Scheduled Procedures Name Priority Associated Diagnoses Date/Ti me ESOPHAGOGASTRODUODENOSCOPY ( EGD), FLEXIBLE, TRANSORAL, ENDOSCOPIC ULTRASOUND Recall Pancreatic cyst 08/26/2024 1:00 PM EST COLONOSCOPY FLEXIBLE PROXIMA L DIAGNOSTIC Recall Nausea & vomiting Unintentional weight loss ESOPHAGOGASTRODUODENOSCOPY ( EGD), FLEXIBLE, TRANSORAL, DIAGNOSTIC Recall Nausea & vomiting Unintentional weight loss Scheduled Referrals Name Type Priority Associated Diagnoses Order Schedule ADULT GASTROENTEROLOGY REFERRAL OP Referral Within 10 days (routine) Pancreas cyst Ordered: 07/01/2024 Health Maintenance Due Date Last Done Comments [...] this encounter Medical Devices Implanted Type Area Pallet Repairer Device Identifier Shelf Expiration Date Model / Serial / Lot Vitoss Bimodal Foam Pack 10cc - [id number] Implanted:Qty : 2 on 10/11/2017 by Rosendo Nathan DO at [facility] N/A: Spine Lumbar SARAH : SPINE 03/08/[id number] / / [id number] Vitoss Bimodal Foam Pack 10cc - [id number] Implanted:Qty : 1 on 10/11/2017 by Rosendo Nathan DO at [facility] N/A: Spine Lumbar SARAH : SPINE 02/05/2019 / / [id number] Screw Audie Bina 3 Ti Set - [id number] Implanted:Qty : 4 on 10/11/2017 by Rosendo Nathan DO at [facility] N/A: Spine Lumbar SARAH : SPINE [id number] / / 6.5 X 50 Mm Serrate Screws Implanted:Qty : 2 on 10/11/2017 by Rosendo Nathan DO at [facility] N/A: Spine Lumbar SARAH : SPINE [id number] / / 6.5 X 45 Mm Serrate Screw Implanted:Qty : 2 on 10/11/2017 by Rosendo Nathan DO at [facility] N/A: Spine Lumbar SARAH : SPINE [id number] / / 9 X 23x 6 - 9mm Pl Implanted:Qty : 1 on 10/11/2017 by Rosendo Nathan DO at [facility] N/A: Spine Lumbar SARAH : SPINE [id number] / / Shashank Bina 3 Ti 6x40mm - [id number] Implanted:Qty : 1 on 10/11/2017 by Rosendo Nathan, at [facility] N/A: Spine Lumbar SARAH : SPINE [id number] / / Shashank Bina 3 Ti 6x45mm - [id number] Implanted:Qty : 1 on 10/11/2017 by Rosendo Nathan, at [facility] N/A: Spine Lumbar SARAH : SPINE [id number] / / documented as of this encounter Visit Diagnoses Diagnosis Pancreas cyst- Primary Cyst and pseudocyst of pancreas Pancreatic cyst Cyst and pseudocyst of pancreas documented in this encounter Advance Directives * Full Code (Latest Code Status on File) Date Activated Date Inactivated Comments 10/11/2017 9:23 AM 10/13/2017 10:36 PM This order r eflects the patients wishes and were consensually agreed upon. Care Teams Machine Stemmer Relationship Specialty Start Date End Date Олег Frias MD [address] [facility] [place] [address] PCP - General Family Medicine 02/18/22 documented as of this encounter
--- OUTSIDE RECORDS SUMMARY | 2024-11-07 04:09 | External Medical Summary | Summary of Care ---
Author Name Unknown Organization [facility] Address [address] [facility] [place] [address] Phone [phone] Care Team Providers Care President And Ceo Name Role Phone Myesha Cavanaugh MD Primary Care Provid er Encounter Details Date Type Department Care Team (Late st Contact Info) Description 07/17/2024 3:20 PM [facility] Telemedicine Family Practice [facility] [address] [place] [address] Chel Chacon DO [address] [place] [address] Bronchitis, complicated* Allergies Active Allergy Reactions Criticality Noted Date Comments Amoxicillin 01/05/2017 thrush Latex 06/20/2013 Hives, rash and swelling Lisinopril 06/02/2023 COUGH Nickel Rash 12/03/2020 documented as of this encounter (statuses as of 08/08/2024) Medications Compressor NebulizerIndica tions:Moderate persistent asthma without [...] MORNING 30 Tablet 07/04/20 24 024 Discontinued Doxycycline Hyclate 100 MG Oral CapsuleIndicati ons:Bronchitis, complicated Take 1 Capsule by mouth in the morning and 1 Capsule before bedtime. Do all this for 7 days. Take for 7 days. 14 Capsule 07/17/20 24 024 documented as of this encounter (statuses as of 08/08/2024) Active Problems Problem Noted Date Diagnosed Date [...] as of this encounter (statuses as of 08/08/2024) Resolved Problems Problem Noted Date Diagnosed Date Resolved Date Food insecurity 04/19/2021 08/26/2021 Overview: Per [facility] Protocol Asthma exacerbation 03/30/2015 07/07/20 17 Moderate persistent asthma 11/09/2014 0 03/30/2015 Overview (11/13/2014): PFT Pneumonitis 07/24/2014 01/06/2022 Asthma exacerbation 07/24/2014 03/30/20 15 documented as of this encounter (statuses as of 08/08/2024) Immunizations Name Administration Dates Next Due PPD [...] 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 No chief complaint on file. Patient location: HOME. I was in a hospital or clinic location. After connecting through [employer],patient was verified with two unique identifiers. Patient (or authorized legal front office representative) was then informed that this was a Telemedicine visit and being conducted confidentially over secure lines. Methods to assure confidentiality were taken. Patient acknowledged consent and understanding of pr ivacy and security of the Telemedicine visit. The patient agreed to participate. HPI: Pt w/hx of bronchitis, sx have been getting worse over the past 4 days. + raspy voice, low grade fever, swelling in her neck. + sinus congestion. Also feels tightness in her chest, some increased SOB. Has hx of COPD and asthma. PHM: Patient Active Problem List Diagnosis Fibromyalgia Tobacco use disorder Asthma, moderate persistent Lumbar radiculitis Major depressive disorder with single episode, in full remission (HCC) Gastroesophageal reflux disease without esophagitis History of lumbar fusion Spinal stenosis of lumbar region with neurogenic claudication COPD, moderate ([facility]) Essential (primary) hypertension Severe tobacco dependence in early remission Microcytic anemia Microcytic anemia Sacroiliac joint pain Alcohol use disorder, severe, in early remission (HCC) MGUS (monoclonal gammopathy of unknown significance) Age-related nuclear cataract, left eye Current Outpatient Medications Medication Sig Dispense Refill [...] total daily dose 60mg.. 90 Capsule 1 amLODIPine Besylate 5 MG Oral Tablet (Norvasc) TAKE 1 TABLET BY MOUTH IN THE MORNING 90 Tablet 1 Azithromycin 250 MG Oral Tablet (Zithromax) Take 2 tabs by mouth on the first day, then 1 tab dailyon days two through five (Patient not taking: Reported on 05/28/2024) 6 Tablet 0 Dulera 200-5 MCG/ACT Inhalation Aerosol [...] mouth in the morning. 90 Tablet 3 hydrOXYzine HCl 50 MG Oral Tablet Take 1 Tablet by mouth every 6 hours as needed for Itching or Anxiety. 60 Tablet 5 Pregabalin 150 MG Oral Capsule (Lyrica) Take 1 Capsule by mouth in the morning and 1 Capsule beforebedtime. 60 Capsule 2 Omeprazole 20 MG Oral Capsule Delayed Release (PriLOSEC) Take 1 capsule by mouth twice daily 60 Capsule 5 Buprenorphine 7.5 MCG/HR Transdermal Patch Weekly (Butrans) Place 7.5 mcg/hr topically on the skin once a week. 4 Patch 2 Losartan Potassium 50 MG Oral Tablet (Cozaar) TAKE 1 TABLET BY MOUTH IN THE MORNING 30 Tablet 0 Gmnsxihmjwe-Odznvzuaz-Mtxadi 100-62.5-25 MCG/ACT Aerosol Powder Breath Activated (Trelegy Ellipta) Inhale 1 Puff by mouth in the morning. 60 Blister Dosing Unit 5 traZODone HCl 50 MG Oral Tablet (Desyrel) TAKE 1 TABLET BY MOUTH AT BEDTIME 90 Tablet 3 No current facility-administered medications for this visit. Past Medical History: Diagnosis Date Allergic rhinitis Arthritis Asthma Chronic back pain Depression Fibromyalgia Moderate persistent asthma 11/2014 PFT Past Surgical History: Procedure Laterality Date ALLOGRAFT, MORSELIZED, FOR SPINE SURGERY N/A 10/11/2017 ALLOGRAFT FOR SPINE SURGERY MORSELIZED performed by Rosendo Nathan DO at OR [facility] AUTOGRAFT, SPINE SURGERY, LOCAL N/A 10/11/2017 OBTAIN AUTOGRAFT FOR SPINE SURGERY LOCAL performed by Rosendo Nathan DO at OR [facility] COLONOSCOPY, DIAGNOSTIC (RECTUM) 09/27/2023 COLONOSCOPY FLEXIBLE PROXIMAL DIAGNOSTIC performed by Erika Rios DO at ENDOSCOPY [facility] EGD, FLEXIBLE, DIAGNOSTIC 12/08/2020 hiatal hernia / ESOPHAGOGASTRODUODENOSCOPY (EGD), FLEXIBLE, TRANSORAL, DIAGNOSTIC performed by Omid Snell MD at ENDOSCOPY [facility] EGD, FLEXIBLE, DIAGNOSTIC 09/27/2023 ESOPHAGOGASTRODUODENOSCOPY (EGD), FLEXIBLE, TRANSORAL, DIAGNOSTIC performed by Erika Rios DO at ENDOSCOPY [facility] EGD, W/ENDOSCOPIC US 12/08/2020 fatty liver / ESOPHAGOGASTRODUODENOSCOPY (EGD), FLEXIBLE, TRANSORAL, ENDOSCOPIC ULTRASOUND performed by Omid Snell MD at ENDOSCOPY [facility] EGD, W/ENDOSCOPIC US 12/05/2023 sludge gallbladder/6mm cyst pancreatic tail/repeat 1 year/ESOPHAGOGASTRODUODENOSCOPY (EGD), FLEXIBLE, TRANSORAL, ENDOSCOPIC ULTRASOUND performed by Omid Snell MD at ENDOSCOPY [facility] INFORMATION Left 2016 left wrist surgery tendonitis LUMBAR SPINE FUSION, POSTEROLATERAL N/A 10/11/2017 L4-5 Decompression and instrumented Fusion. Allo-autograft, Screw/shashank construct, Possible interbodyfusion device. performed by Rosendo Nathan DO at OR [facility] REMOVAL OF TONSILS, UNDER AGE 12 1974 SACROILIAC JOINT INJECT W/GUIDANCE Bilateral 07/25/2022 INJECTION SACROILIAC JOINT performed by Kash Whitfield DO at OR [facility] SACROILIAC JOINT INJECT W/GUIDANCE 12/08/2022 INJECTION SACROILIAC JOINT performed by Kash Whitfield DO at OR [facility] SACROILIAC JOINT INJECT W/GUIDANCE Bilateral 01/26/2023 INJECTION SACROILIAC JOINT performed by Kash Whitfield DO at OR [facility] SACROILIAC JOINT INJECT W/GUIDANCE 06/14/2023 INJECTION SACROILIAC JOINT performed by Michael Enriquez DO at [facility] SPINE FIXATION, POSTERIOR, (RUELAS) N/A 10/11/2017 POSTERIOR SPINE INSTRUMENTATION NON SEGMENTAL performed by Rosendo Nathan DO at OR [facility] Review of patient's allergies indicates: Allergen Reactions Amoxicillin thrush Latex Hives, rash and swelling Lisinopril COUGH Nickel Rash Objective: LMP 07/11/2013 Review of Systems: As per HPI, all other ROS neg. Physical Exam: General: alert, healthy, and no distress Bronchitis, complicated (Primary) - Doxycycline Hyclate 100 MG Oral Capsule; Take 1 Capsule by mouth in the morning and 1 Capsule before bedtime. Do all this for 7 days. Take for 7 days. - predniSONE 10 MG Oral Tablet (Deltasone); Take 5 tabs for 2 days, 4 tabs for 2 days, 3 tabs for 2days, 2 tabs for 2 days 1 tab for 2 days Follow up: as needed. Chel Chacon DO documented in this encounter Plan of Treatment Upcoming Encounters Date Type Department Care Team (Latest Contact Info) Description 4 1:00 PM EST Hospital Encounter ENDO [facility], Endoscopy Room [facility] [address] [place] [phone] Omid Snell MD [address] [place] [phone] 4 1:00 PM EST - 4 1:45 PM EST Surgery ENDO [facility], Endoscopy Room [facility] [address] [place] [phone] Omid Snell MD [address] [place] [address] ESOPHAGOGASTRODUODENOSCOPY (EGD), FLEXIBLE, TRANSORAL, ENDOSCOPIC ULTRASOUND 4 1:00 PM EST [facility] [address] [address] [place] [phone] Myesha Cavanaugh MD [address] [place] [address] 5 3:30 PM EST Telemedicine Pharmacy, [facility] [address] [place] [address] [facility] [address] [place] [address] 6:20 PM EST Office Visit [facility] [place] [address] [place] [phone] Myesha Cavanaugh MD [address] [place] [address] Scheduled Procedures Name Priority Associated Diagnoses Date/Ti [...] this encounter Medical Devices Implanted Type Area Beauty Shop Manager Device Identifier Shelf Expiration Date Model / Serial / Lot Vitoss Bimodal Foam Pack 10cc - [id number] Implanted:Qty : 2 on 10/11/2017 by Rosendo Nathan DO at [facility] N/A: Spine Lumbar SARAH : SPINE 03/08/[id number] / / [id number] Vitoss Bimodal Foam Pack 10cc - [id number] Implanted:Qty : 1 on 10/11/2017 by Rosendo Nathan DO at [facility] N/A: Spine Lumbar SARAH : SPINE 02/05/[id number] / / [id number] Screw Audie Bina 3 Ti Set - [id number] Implanted:Qty : 4 on 10/11/2017 by Rosendo Nathan DO at [facility] N/A: Spine Lumbar SARAH : SPINE [id number] / / 6.5 X 50 Mm Serrate Screws Implanted:Qty : 2 on 10/11/2017 by Rosendo Nathan DO at [facility] N/A: Spine Lumbar SARAH : SPINE [id number] / / 6.5 X 45 Mm Serrate Screw Implanted:Qty : 2 on 10/11/2017 by Rosendo Nathan DO at [facility] N/A: Spine Lumbar SARAH : SPINE [id number] / / 9 X 23x 6 - 9mm Pl Implanted:Qty : 1 on 10/11/2017 by Rosendo Nathan, DO at [facility] N/A: Spine Lumbar SARAH : SPINE [id number] / / Shashank Bina 3 Ti 6x40mm - [id number] Implanted:Qty : 1 on 10/11/2017 by Rosendo Nathan, DO at [facility] N/A: Spine Lumbar SARAH : SPINE [id number] / / Shashank Bina 3 Ti 6x45mm - [id number] Implanted:Qty : 1 on 10/11/2017 by Rosendo Nathan, DO at [facility] N/A: Spine Lumbar SARAH : SPINE [id number] / / documented as of this encounter Visit Diagnoses Diagnosis Bronchitis, complicated- Primary Bronchitis, not specified as acute or chronic Pancreatic cyst Cyst and pseudocyst of pancreas documented in this encounter Advance Directives * Full Code (Latest Code Status on File) Date Activated Date Inactivated Comments 10/11/2017 9:23 AM 10/13/2017 10:36 PM This order r eflects the patients wishes and were consensually agreed upon. Care Teams President And Ceo Relationship Specialty Start Date End Date Myesha Cavanaugh MD [address] [place] [address] PCP - General Family Medicine 02/18/22 documented as of this encounter
--- OUTSIDE RECORDS SUMMARY | 2024-11-07 04:10 | External Medical Summary | Summary of Care ---
Author Name Unknown Organization [facility] Address [address] [place] [address] Phone [phone] Care Team Providers Care Ell Tutor Name Role Phone Олег Frias MD Primary Care Provid er Reason for Referral * Evaluate & Treat - Unlimited Visits (Within 10 days (routine)) - Pending Review Specialty Diagnoses / Procedures Referred By Jun garay Referred To Contact Gastroenterology Diagnoses Pancreas cyst Олег Firas MD [address] [place] [address] Referral ID Status Reason Start Date Expiration Date Visits Requested Visits Authorized [id number] Pending Review Specialty Services Required 4 999 [...] st Contact Info) Description 07/01/2024 Telephone Laboratory, [place] [address] [place] [address] Олег Frias MD [address] [place] [address] Test Results (Unexpected or Indeterminate ... Allergies Active Allergy Reactions Criticality Noted Date Comments Amoxicillin 01/05/2017 thrush Latex 06/20/2013 Hives, rash and swelling Lisinopril 06/02/2023 COUGH Nickel Rash 12/03/2020 documented as of this encounter (statuses as of 07/01/2024) Medications Medication Sig Dispensed Refills Start Date End Date Status Compressor NebulizerIndication s:Moderate persistent asthma without complication,COPD, [...] AT BEDTIME 90 Tablet 1 01/17/2024 Active Losartan Potassium 50 MG Oral Tablet (Cozaar) Take 1 Tablet by mouth in the morning. 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 90 Tablet 3 05/28/2024 Active hydrOXYzine HCl 50 MG Oral TabletIndications:A nxiety,Pruritus Take 1 Tablet by mouth every 6 hours as needed for Itching or Anxiety. 60 Tablet 5 05/28/2024 Active Pregabalin 150 MG Oral Capsule (Lyrica)Indications :Spinal stenosis of lumbar region with neurogenic claudication Take 1 Capsule by mouth in the morning and 1 Capsule before bedtime. 60 Capsule 2 05/28/2024 Active Omeprazole 20 MG Oral Capsule Delayed Release (PriLOSEC)Indicatio ns:Epigastric pain,Gallbladder sludge,Gastroesopha geal reflux disease without esophagitis Take 1 capsule by mouth twice daily 60 Capsule 5 06/03/2024 Active Buprenorphine 7.5 MCG/HR Transdermal Patch Weekly (Butrans)Indication s:Spinal stenosis of lumbar region with neurogenic claudication Place 7.5 mcg/hr topically on the skin once a week. 4 Patch 2 06/28/2024 Active documented as of this encounter (statuses as of 07/01/2024) Active Problems Problem Noted Date Diagnosed Date [...] as of this encounter (statuses as of 07/01/2024) Resolved Problems Problem Noted Date Diagnosed Date Resolved Date Food insecurity 04/19/2021 08/26/2021 Overview: Per [facility] Protocol Asthma exacerbation 03/30/2015 07/07/20 17 Moderate persistent asthma 11/09/2014 0 03/30/2015 Overview: PFT Pneumonitis 07/24/2014 01/06/2022 Asthma exacerbation 07/24/2014 03/30/20 15 documented as of this encounter (statuses as of 07/01/2024) Immunizations Name Administration Dates Next Due PPD [...] Miscellaneous Notes * Addendum Note - Олег Frias MD [...] unexpected or indeterminate finding on Poppy Adhikari ([id number]) and asks that you review the following [...] ensure this report is reviewed. Thank you, ARTI Escobar Client Service Rep [facility] documented in this encounter Plan of Treatment Upcoming Encounters Date Type Department Care Team (Late st Contact Info) Description 07/01/2024 5:40 PM EDT Telemedicine [place] [address] [facility] [phone] Олег Frias MD [address] [facility] [phone] 08/30/2024 3:30 PM EST Telemedicine Pharmacy, [facility] [address] [facility] [place] [address] Pharmacist2, [facility] [address] [facility] [place] [address] 09/30/2024 6:20 PM EST Office Visit [place] [address] [facility] [phone] Олег Frias MD [address] [facility] [place] [phone] Scheduled Procedures Name Priority Associated Diagnoses Date/Ti me ESOPHAGOGASTRODUODENOSCOPY ( EGD), FLEXIBLE, TRANSORAL, ENDOSCOPIC ULTRASOUND Recall Pancreatic cyst COLONOSCOPY FLEXIBLE PROXIMAL DIAGNOSTIC Recall Nausea & [...] 07/16/2013 DISCUSS TOBACCO CESSATION (REFER TO SMARTSET #3093) 01/06/2023 01/06/2022, 09/23/2021 DTap/Tdap Vaccines (2 - [...] encounter Medical Devices Implanted Type Area Clinical Research Monitor Device Identifier Shelf Expiration Date Model / Serial / Lot Vitoss Bimodal Foam Pack 10cc - [id number] Implanted:Qty : 2 on 10/11/2017 by Rosendo Nathan DO at [facility] N/A: Spine Lumbar SARAH : SPINE 03/08/2019 / / [id number] Vitoss Bimodal Foam Pack 10cc - [id number] Implanted:Qty : 1 on 10/11/2017 by Rosendo Nathan DO at [facility] N/A: Spine Lumbar SARAH : SPINE 02/05/2019 / / [id number] Screw Audie Bina 3 Ti Set - [id number] Implanted:Qty : 4 on 10/11/2017 by Rosendo Nathan DO at [facility] N/A: Spine Lumbar SARAH : SPINE [id number] / / 6.5 X 50 Mm Serrate Screws Implanted:Qty : 2 on 10/11/2017 by Rosendo Nathan DO at [facility] N/A: Spine Lumbar SARAH : SPINE [id number] / / 6.5 X 45 Mm Serrate Screw Implanted:Qty : 2 on 10/11/2017 by Rosendo Nathan DO at [facility] N/A: Spine Lumbar SARAH : SPINE [id number] / / 9 X 23x 6 - 9mm Pl Implanted:Qty : 1 on 10/11/2017 by Rosendo Nathan DO at [facility] N/A: Spine Lumbar SARAH : SPINE [id number] / / Shashank Bina 3 Ti 6x40mm - [id number] Implanted:Qty : 1 on 10/11/2017 by Rosendo Nathan DO at [facility] N/A: Spine Lumbar SARAH : SPINE [id number] / / Shashank Bina 3 Ti 6x45mm - [id number] Implanted:Qty : 1 on 10/11/2017 by Rosendo Nathan DO at [facility] N/A: Spine Lumbar SARAH : SPINE [id number] / / documented as of this encounter Visit Diagnoses Diagnosis Pancreas cyst- Primary Cyst and pseudocyst of pancreas documented in this encounter Advance Directives * Full Code (Latest Code Status on File) Date Activated Date Inactivated Comments 10/11/2017 9:23 AM 10/13/2017 10:36 PM This order r eflects the patients wishes and were consensually agreed upon. Care Teams Ell Tutor Relationship Specialty Start Date End Date Олег Frias MD [address] [facility] [place] [address] PCP - General Family Medicine 02/18/22 documented as of this encounter
--- OUTSIDE RECORDS SUMMARY | 2024-11-07 04:10 | External Medical Summary | Summary of Care ---
Author Name Unknown Organization [facility] Address [address] [place] [address] Phone [phone] Care Team Providers Care Cardiac Cath Lab Radiology Technologist Name Role Phone Олег Frias MD Primary Care Provid er Reason for Referral * Evaluate & Treat - Unlimited Visits (Within 10 days (routine)) - Pending Review Specialty Diagnoses / Procedures Referred By Jun garay Referred To Contact Gastroenterology Diagnoses Pancreas cyst Олег Frias MD [address] [place] [address] Referral ID Status Reason Start Date Expiration Date Visits Requested Visits Authorized [id number] Pending Review Specialty Services Required 4 999 [...] st Contact Info) Description 07/01/2024 Telephone Laboratory, [place] [address] [place] [address] Олег Frias MD [address] [place] [address] Test Results (Unexpected or Indeterminate ... 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) Inhale 2 Puffs by [...] as of this encounter (statuses as of 07/02/2024) Active Problems Problem Noted Date Diagnosed Date [...] as of this encounter (statuses as of 07/02/2024) Resolved Problems Problem Noted Date Diagnosed Date Resolved Date Food insecurity 04/19/2021 08/26/2021 Overview: Per [facility] Protocol Asthma exacerbation 03/30/2015 07/07/20 17 Moderate persistent asthma 11/09/2014 0 03/30/2015 Overview: PFT Pneumonitis 07/24/2014 01/06/2022 Asthma exacerbation 07/24/2014 03/30/20 15 documented as of this encounter (statuses as of 07/02/2024) Immunizations Name Administration Dates Next Due PPD [...] next available up to 2 months at [facility]. * Addendum Note - Олег Frias MD [...] unexpected or indeterminate finding on Poppy Adhikari ([id number]) and asks that you review the following [...] Thank you, ARTI Escobar Client Service Rep [facility] documented in this encounter Plan of Treatment Upcoming Encounters Date Type Department Care Team (Latest Contact Info) Description 08/26/2024 1:00 PM EST Hospital Encounter ENDO [facility], Endoscopy Room [facility] [address] [place] [phone] Omid Keenan MD [address] [place] [address] 08/26/2024 1:00 PM EST - 08/26/2024 1:45 PM EST Surgery ENDO [facility], Endoscopy Room [facility] [address] [place] [phone] Omid Keenan MD [address] [place] [address] ESOPHAGOGASTRODUODENOSCOPY (EGD), FLEXIBLE, TRANSORAL, ENDOSCOPIC ULTRASOUND 08/30/2024 3:30 PM EST Telemedicine Pharmacy, [facility] [address] [facility] [address] Pharmacist2, [facility] [address] [facility] [place] [address] 09/30/2024 6:20 PM EST Office Visit [facility] [address] [place] [address] Олег Frias MD [address] [place] [address] Scheduled Orders Name Type Priority Associated Diagnoses Orde r Schedule US ENDOSCOPIC Medical Imaging Routine Pancreas cyst Expected: 07/02/2024, Expires: 08/02/2025 Scheduled Procedures Name Priority Associated Diagnoses Date/Ti mi ESOPHAGOGASTRODUODENOSCOPY ( EGD), FLEXIBLE, TRANSORAL, ENDOSCOPIC ULTRASOUND [...] 07/16/2013 DISCUSS TOBACCO CESSATION (REFER TO SMARTSET #2833) 01/06/2023 01/06/2022, 09/23/2021 DTap/Tdap Vaccines (2 - [...] encounter Medical Devices Implanted Type Area Industrial Aerial Installer Device Identifier Shelf Expiration Date Model / Serial / Lot Vitoss Bimodal Foam Pack 10cc - [id number] Implanted:Qty : 2 on 10/11/2017 by Rosendo Nathan DO at [facility] N/A: Spine Lumbar SARAH : SPINE 03/08/2019 / / [id number] Vitoss Bimodal Foam Pack 10cc - [id number] Implanted:Qty : 1 on 10/11/2017 by Rosendo Nathan DO at [facility] N/A: Spine Lumbar SARAH : SPINE 02/05/2019 / / [id number] Screw Audie Bina 3 Ti Set - [id number] Implanted:Qty : 4 on 10/11/2017 by Rosendo Nathan DO at [facility] N/A: Spine Lumbar SARAH : SPINE [id number] / / 6.5 X 50 Mm Serrate Screws Implanted:Qty : 2 on 10/11/2017 by Rosendo Nathan DO at [facility] N/A: Spine Lumbar SARAH : SPINE [id number] / / 6.5 X 45 Mm Serrate Screw Implanted:Qty : 2 on 10/11/2017 by Rosendo Nathan DO at [facility] N/A: Spine Lumbar SARAH : SPINE [id number] / / 9 X 23x 6 - 9mm Pl Implanted:Qty : 1 on 10/11/2017 by Rosendo Nathan DO at [facility] N/A: Spine Lumbar SARAH : SPINE [id number] / / Shashank Bina 3 Ti 6x40mm - [id number] Implanted:Qty : 1 on 10/11/2017 by Rosendo Nathan DO at [facility] N/A: Spine Lumbar SARAH : SPINE [id number] / / Shashank Bina 3 Ti 6x45mm - [id number] Implanted:Qty : 1 on 10/11/2017 by Rosendo Nathan DO at [facility] N/A: Spine Lumbar SARAH : SPINE [id number] / / documented as of this encounter [...] and were consensually agreed upon. Care Teams Cardiac Cath Lab Radiology Technologist Relationship Specialty Start Date End Date Олег Frias MD [address] [place] [phone] PCP - General Family Medicine 02/18/22 documented as of this encounter
--- OUTSIDE RECORDS SUMMARY | 2024-11-07 04:10 | External Medical Summary | Summary of Care ---
Author Name Unknown Organization [facility] Address [address] [place] [address] Phone [phone] Care Team Providers Care Rn Perinatal Name Role Phone Олег Frias MD Primary Care Provid er Encounter Details Date Type Department Care Team (Late st Contact Info) Description 06/28/2024 Refill Pharmacy, [facility] [address] [place] [address] [facility] [address] [place] [address] Spinal stenosis of lumbar region with neurogenic claudication*; History of lumbar fusion; Sacroiliac joint pain Allergies Active Allergy Reactions Criticality Noted Date Comments Amoxicillin 01/05/2017 thrush Latex 06/20/2013 Hives, rash and swelling Lisinopril 06/02/2023 COUGH Nickel Rash 12/03/2020 documented as of this encounter (statuses as of 06/28/2024) Medications Medication Sig Dispensed Refills Start Date [...] 05/28/2024 FLUoxetine HCl 20 MG Oral Capsule (PROzac)Indicatio [...] a week. 4 Patch 2 06/28/2024 Active LORazepam 0.5 MG Oral Tablet (Ativan)Indicatio ns:Anxiety TAKE 1 TABLET BY MOUTH ONCE DAILY NEEDED FOR ANXIETY 30 Tablet 01/18/2024 06/28/20 24 Discontinued Butrans 5 MCG/HR Transdermal Patch WeeklyIndications :Spinal stenosis of lumbar region with neurogenic claudication,Hist ory of lumbar fusion,Sacroiliac joint pain Place 1 Patch over 7 days topically on the skin once a week. 4 Patch 1 04/29/2024 06/28/20 24 Discontinued documented as of this encounter (statuses as of 06/28/2024) Active Problems Problem Noted Date Diagnosed Date [...] as of this encounter (statuses as of 06/28/2024) Resolved Problems Problem Noted Date Diagnosed Date Resolved Date Food insecurity 04/19/2021 08/26/2021 Overview: Per [facility] Protocol Asthma exacerbation 03/30/2015 07/07/20 17 Moderate persistent asthma 11/09/2014 0 03/30/2015 Overview: PFT Pneumonitis 07/24/2014 01/06/2022 Asthma exacerbation 07/24/2014 03/30/20 15 documented as of this encounter (statuses as of 06/28/2024) Immunizations Name Administration Dates Next Due PPD [...] (15 years old or older) Yes 10/12/19 Cognitive Status Response Date of Assessm ent Because of a physical, menta l, or emotional condition, do you have serious difficulty concentrating, remembering, or making decisions? (5 years old or older) Yes 10/12/2017 documented as of this encounter Miscellaneous Notes * Telephone Encounter - Олег Frias MD - 06/28/2024 4:44 PM EDT Signed Prescriptions: Disp Refills Buprenorphine 7.5 MCG/HR Transdermal Patch*4 Patch2 Sig: Place 7.5 mcg/hr topically on the skin once a week.Authorizing Provider: ОЛЕГ FRIAS * Telephone Encounter - Tramaine Isaac RPh - 06/28/2024 2:53 PM EDT Pt seen today pt had good response to butrans patch, Pt would like to see if further benefit can beachieved. MTDM okay with increase to 7.5mcg patch. Pended to pcp for approval. Tramaine Isaac PharmD, BCACP, [facility] Clinical Pharmacist 06/28/2024, 2:58 PM documented in this encounter Plan of Treatment Upcoming Encounters Date Type Department Care Team (Late st Contact Info) Description 06/29/2024 1:00 PM EDT Imaging Radiology [facility] [address] [place] [address] 07/01/2024 5:40 PM EDT Telemedicine [facility] [address] [facility] [phone] Олег Frias MD [address] [place] [address] 08/30/2024 3:30 PM EST Telemedicine Pharmacy, [facility] [address] [facility] [place] [address] Pharmacist2, [facility] [address] [facility] [place] [address] 09/30/2024 6:20 PM EST Office Visit [facility] [address] [facility] [phone] Олег Frias MD [address] [facility] [address] Scheduled Procedures Name Priority Associated Diagnoses Date/Ti [...] 07/16/2013 DISCUSS TOBACCO CESSATION (REFER TO SMARTSET #9032) 01/06/2023 01/06/2022, 09/23/2021 DTap/Tdap Vaccines (2 - [...] this encounter Medical Devices Implanted Type Area Veneer Jointer Helper Device Identifier Shelf Expiration Date Model / Serial / Lot Vitoss Bimodal Foam Pack 10cc - [id number] Implanted:Qty : 2 on 10/11/2017 by [facility] N/A: Spine Lumbar SARAH : SPINE 03/08/2019 [id number] / / [id number] Vitoss Bimodal Foam Pack 10cc - [id number] Implanted:Qty : 1 on 10/11/2017 by Rosendo Nathan DO at [facility] N/A: Spine Lumbar SARAH : SPINE 02/05/2019 [id number] / / [id number] Screw Audie Bina 3 Ti Set - [id number] Implanted:Qty : 4 on 10/11/2017 by Rosendo Nathan DO at [facility] N/A: Spine Lumbar SARAH : SPINE [id number] / / 6.5 X 50 Mm Serrate Screws Implanted:Qty : 2 on 10/11/2017 by Rosendo Nathan DO at [facility] N/A: Spine Lumbar SARAH : SPINE [id number] / / 6.5 X 45 Mm Serrate Screw Implanted:Qty : 2 on 10/11/2017 by Rosendo Nathan DO at [facility] N/A: Spine Lumbar SARAH : SPINE [id number] / / 9 X 23x 6 - 9mm Pl Implanted:Qty : 1 on 10/11/2017 by Rosendo Nathan DO at [facility] N/A: Spine Lumbar SARAH : SPINE [id number] / / Shashank Bina 3 Ti 6x40mm - [id number] Implanted:Qty : 1 on 10/11/2017 by Rosendo Nathan DO at [facility] N/A: Spine Lumbar SARAH : SPINE [id number] / / Shashank Bina 3 Ti 6x45mm - [id number] Implanted:Qty : 1 on 10/11/2017 by Rosendo Nathan DO at [facility] N/A: Spine Lumbar SARAH : SPINE [id number] / / documented as of this encounter [...] and were consensually agreed upon. Care Teams Rn Perinatal Relationship Specialty Start Date End Date Олег Frias MD [address] [place] [address] PCP - General Family Medicine 02/18/22 documented as of this encounter
--- OUTSIDE RECORDS SUMMARY | 2024-11-07 04:10 | External Medical Summary | Summary of Care ---
Author Name Unknown Organization [facility] Address [address] [place] [address] Phone [phone] Care Team Providers Care Manager It Security Name Role Phone Олег Frias MD Primary Care Provid er Reason for Referral * Evaluate & Treat - Unlimited Visits (Within 10 days (routine)) - Pending Review Specialty Diagnoses / Procedures Referred By Jun garay Referred To Contact Gastroenterology Diagnoses Pancreas cyst Олег Frias MD [address] [place] [address] Referral ID Status Reason Start Date Expiration Date Visits Requested Visits Authorized [id number] Pending Review Specialty Services Required 4 999 [...] st Contact Info) Description 07/01/2024 Telephone Laboratory, [place] [address] [place] [address] Олег Frias MD [address] [place] [address] Test Results (Unexpected or Indeterminate [...] 05/28/2024 Dulera 200-5 MCG/ACT Inhalation Aerosol (Mometasone-Formote rol)Indications: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 * Addendum Note - Олег Frias MD [...] unexpected or indeterminate finding on Poppy Adhikari ([id number]) and asks that you review the following [...] reviewed. Thank you, ARTI Escobar Client Service [facility] documented in this encounter Plan of Treatment Upcoming Encounters Date Type Department Care Team (Late st Contact Info) Description 08/30/2024 3:30 PM EST Telemedicine Pharmacy, [facility] [place] [address] [place] [address] Pharmacist2, [facility] [address] [place] [address] 09/30/2024 6:20 PM EST Office Visit [address] [place] [phone] Олег Frias MD [address] [place] [address] Scheduled Orders Name Type Priority Associated Diagnoses [...] this encounter Medical Devices Implanted Type Area Return To Service Inspector Device Identifier Shelf Expiration Date Model / Serial / Lot Vitoss Bimodal Foam Pack 10cc - [id number] Implanted:Qty : 2 on 10/11/2017 by Rosendo Nathan DO at [facility] N/A: Spine Lumbar SARAH : SPINE 03/08/[id number] / / [id number] Vitoss Bimodal Foam Pack 10cc - [id number] Implanted:Qty : 1 on 10/11/2017 by Rosendo Nathan DO at [facility] N/A: Spine Lumbar SARAH : SPINE 02/05/[id number] / / [id number] Screw Audie Bina 3 Ti Set - [id number] Implanted:Qty : 4 on 10/11/2017 by Rosendo Nathan DO at [facility] N/A: Spine Lumbar SARAH : SPINE [id number] / / 6.5 X 50 Mm Serrate Screws Implanted:Qty : 2 on 10/11/2017 by Rosendo Nathan DO at [facility] N/A: Spine Lumbar SARAH : SPINE [id number] / / 6.5 X 45 Mm Serrate Screw Implanted:Qty : 2 on 10/11/2017 by Rosendo Nathan DO at [facility] N/A: Spine Lumbar SARAH : SPINE [id number] / / 9 X 23x 6 - 9mm Pl Implanted:Qty : 1 on 10/11/2017 by Rosendo Nathan, DO at [facility] N/A: Spine Lumbar SARAH : SPINE [id number] / / Shashank Bina 3 Ti 6x40mm - [id number] Implanted:Qty : 1 on 10/11/2017 by Rosendo Nathan, DO at [facility] N/A: Spine Lumbar SARAH : SPINE [id number] / / Shashank Bina 3 Ti 6x45mm - [id number] Implanted:Qty : 1 on 10/11/2017 by Rosendo Nathan, DO at [facility] N/A: Spine Lumbar SARAH : SPINE [id number] / / documented as of this encounter Visit Diagnoses Diagnosis Pancreas cyst- Primary Cyst and pseudocyst of pancreas documented in this encounter Advance Directives * Full Code (Latest Code Status on File) Date Activated Date Inactivated Comments 10/11/2017 9:23 AM 10/13/2017 10:36 PM This order r eflects the patients wishes and were consensually agreed upon. Care Teams Manager It Security Relationship Specialty Start Date End Date Олег Frias MD [address] [place] [address] PCP - General Family Medicine 02/18/22 documented as of this encounter
--- OUTSIDE RECORDS SUMMARY | 2024-11-07 04:10 | External Medical Summary | Summary of Care ---
Author Name Unknown Organization [facility] Address [address] [place] [address] Phone [phone] Care Team Providers Care Planning Director Name Role Phone Myesha Cavanaugh MD Primary Care Provid er Reason for Visit * Reason Onset Date Comments TRIAGE 07/02/2024 Encounter Details Date Type Department Care Team (Late st Contact Info) Description 07/02/2024 Telephone Gastroenterology, [facility] [address] [facility] [place] [address] Services, Scheduling [address] [place] [address] TRIAGE Allergies Active Allergy Reactions Criticality Noted Date Comments Amoxicillin 01/05/2017 thrush Latex 06/20/2013 Hives, rash and swelling Lisinopril 06/02/2023 COUGH Nickel Rash 12/03/2020 documented as of this encounter (statuses as of 07/03/2024) Medications Medication Sig Dispensed Refills Start Date [...] 60 Blister Dosing Unit 5 07/01/2024 Active documented as of this encounter (statuses as of 07/03/2024) Active Problems Problem Noted Date Diagnosed Date [...] as of this encounter (statuses as of 07/03/2024) Resolved Problems Problem Noted Date Diagnosed Date Resolved Date Food insecurity 04/19/2021 08/26/2021 Overview: Per [facility] Protocol Asthma exacerbation 03/30/2015 07/07/20 17 Moderate persistent asthma 11/09/2014 0 03/30/2015 Overview: PFT Pneumonitis 07/24/2014 01/06/2022 Asthma exacerbation 07/24/2014 03/30/20 15 documented as of this encounter (statuses as of 07/03/2024) Immunizations Name Administration Dates Next Due PPD [...] No 05/16/2024 Does the household have a [facility] source of income? (Household - for [...] encounter Miscellaneous Notes * Telephone Encounter - Lorin Polo OSA - 07/03/2024 1:41 PM EDT Looks like pt is already scheduled for an EUS in August and it looks like it was reviewed by ARTI Landa 07/03/2024 1:42 PM * Telephone Encounter - Tonya Haddad OSA - 07/02/2024 9:06 AM EDT Patient with a referral for pancreatic cyst, is this ok to schedule or should this be reviewed? documented in this encounter Plan of Treatment Upcoming Encounters Date Type Department Care Team (Latest Contact Info) Description 08/26/2024 1:00 PM EST Hospital En[facility], Endoscopy Room [facility] [address] [place] [phone] Omid Snell MD [address] [place] [address] 08/26/2024 1:00 PM EST - 08/26/2024 1:45 PM EST Surgery ENDO [facility], Endoscopy Room [facility] [address] [place] [phone] Omid Snell MD [address] [place] [address] ESOPHAGOGASTRODUODENOSCOPY (EGD), FLEXIBLE, TRANSORAL, ENDOSCOPIC ULTRASOUND 08/30/2024 3:30 PM EST Telemedicine Pharmacy, [facility] [address] [facility] [place] [address] Pharmacist2, [facility] [address] [place], [place] [address] 09/30/2024 6:20 PM EST Office Visit [facility] [address] [place] [phone] Myesha Cavanaugh MD [address], [place] [phone] Scheduled Procedures Name Priority Associated Diagnoses Date/Ti [...] this encounter Medical Devices Implanted Type Area Tax Assessor Device Identifier Shelf Expiration Date Model / Serial / Lot Vitoss Bimodal Foam Pack 10cc - [id number] Implanted:Qty : 2 on 10/11/2017 by Rosendo Nathan DO at [facility] N/A: Spine Lumbar SARAH : SPINE 03/08/2019 / / [id number] Vitoss Bimodal Foam Pack 10cc - [id number] Implanted:Qty : 1 on 10/11/2017 by Rosendo Nathan DO at [facility] N/A: Spine Lumbar SARAH : SPINE 02/05/2019 / / [id number] Screw Audie Bina 3 Ti Set - [id number] Implanted:Qty : 4 on 10/11/2017 by Rosendo Nathan DO at [facility] N/A: Spine Lumbar SARAH : SPINE [id number] / / 6.5 X 50 Mm Serrate Screws Implanted:Qty : 2 on 10/11/2017 by Rosendo Nathan DO at [facility] N/A: Spine Lumbar SARAH : SPINE [id number] / / 6.5 X 45 Mm Serrate Screw Implanted:Qty : 2 on 10/11/2017 by Rosendo Nathan, DO at [facility] N/A: Spine Lumbar SARAH : SPINE [id number] / / 9 X 23x 6 - 9mm Pl Implanted:Qty : 1 on 10/11/2017 by Rosendo Nathan, DO at [facility] N/A: Spine Lumbar SARAH : SPINE [id number] / / Shashank Bina 3 Ti 6x40mm - [id number] Implanted:Qty : 1 on 10/11/2017 by Rosendo Nathan, DO at [facility] N/A: Spine Lumbar SARAH : SPINE [id number] / / Shashank Bina 3 Ti 6x45mm - [id number] Implanted:Qty : 1 on 10/11/2017 by Rosendo Nathan, DO at [facility] N/A: Spine Lumbar SARAH : SPINE [id number] / / documented as of this encounter Advance Directives * Full Code (Latest Code Status on File) Date Activated Date Inactivated Comments 10/11/2017 9:23 AM 10/13/2017 10:36 PM This order r eflects the patients wishes and were consensually agreed upon. Care Teams Planning Director Relationship Specialty Start Date End Date Meysha Cavanaugh MD [address] [place] [facility] [place] [address] PCP - General Family Medicine 02/18/22 documented as of this encounter
--- OUTSIDE RECORDS SUMMARY | 2024-11-07 04:10 | External Medical Summary | Summary of Care ---
Author Name Unknown Organization [facility] [address] [facility] [address] Phone [phone] Care Team Providers Care Paintings Restorer Name Role Phone Myesha Cavanaugh MD Primary Care Provid er Encounter Details Date Type Department Care Team (Late st Contact Info) Description 07/04/2024 Orders Only PATIENT PORTAL DO NOT DELETE THIS DEPT USED BY [place] [id number] Allergies Active Allergy Reactions Criticality Noted Date [...] EST Hospital Encounter ENDO [facility], Endoscopy Room [facility] [address] [place] [phone] Omid Snell MD [address] [place] [address] 08/26/2024 1:00 PM EST - 08/26/2024 1:45 PM EST Surgery ENDO [facility], Endoscopy Room [facility] [address] [place] [phone] Omid Snell MD [address] [place] [address] ESOPHAGOGASTRODUODENOSCOPY (EGD), FLEXIBLE, TRANSORAL, ENDOSCOPIC ULTRASOUND 08/30/2024 3:30 PM EST Telemedicine Pharmacy, [facility] [address] [place] [address] Pharmacist2, [facility] [address] [facility] [address] 09/30/2024 6:20 PM EST Office Visit [facility] [address] [facility], [place] [phone] Myesha Cavanaugh MD [address] [facility], [place] [phone] Scheduled Procedures Name Priority Associated Diagnoses Date/Ti ut ESOPHAGOGASTRODUODENOSCOPY ( EGD), FLEXIBLE, TRANSORAL, ENDOSCOPIC ULTRASOUND [...] this encounter Medical Devices Implanted Type Area Product Management Manager Device Identifier Shelf Expiration Date Model / Serial / Lot Vitoss Bimodal Foam Pack 10cc - [id number] Implanted:Qty : 2 on 10/11/2017 by Rosendo Nathan DO at [facility] N/A: Spine Lumbar SARAH : SPINE 03/08/2019 / / [id number] Vitoss Bimodal Foam Pack 10cc - [id number] Implanted:Qty : 1 on 10/11/2017 by Rosendo Nathan DO at [facility] N/A: Spine Lumbar SARAH : SPINE 02/05/2019 / / [id number] Screw Audie Bina 3 Ti Set - [id number] Implanted:Qty : 4 on 10/11/2017 by Rosendo Nathan DO at [facility] N/A: Spine Lumbar SARAH : SPINE [id number] / / 6.5 X 50 Mm Serrate Screws Implanted:Qty : 2 on 10/11/2017 by Rosendo Nathan DO at [facility] N/A: Spine Lumbar SARAH : SPINE [id number] / / 6.5 X 45 Mm Serrate Screw Implanted:Qty : 2 on 10/11/2017 by Rosendo Nathan DO at [facility] N/A: Spine Lumbar SARAH : SPINE [id number] / / 9 X 23x 6 - 9mm Pl Implanted:Qty : 1 on 10/11/2017 by Rosendo Nathan DO at [facility] N/A: Spine Lumbar SARAH : SPINE [id number] / / Shashank Bina 3 Ti 6x40mm - [id number] Implanted:Qty : 1 on 10/11/2017 by Rosendo Nathan DO at [facility] N/A: Spine Lumbar SARAH : SPINE [id number] / / Shashank Bina 3 Ti 6x45mm - [id number] Implanted:Qty : 1 on 10/11/2017 by Rosendo Nathan DO at [facility] N/A: Spine Lumbar SARAH : SPINE [id number] / / documented as of this encounter Advance Directives * Full Code (Latest Code Status on File) Date Activated Date Inactivated Comments 10/11/2017 9:23 AM 10/13/2017 10:36 PM This order r eflects the patients wishes and were consensually agreed upon. Care Teams Paintings Restorer Relationship Specialty Start Date End Date Myesha Cavanaugh MD [address] [place] [facility] [place] [address] PCP - General Family Medicine 02/18/22 documented as of this encounter
--- OUTSIDE RECORDS SUMMARY | 2024-11-07 04:10 | External Medical Summary | Summary of Care ---
Author Name Unknown Organization [facility] Address [address] [place] [facility] [place] [address] Phone [phone] Care Team Providers Care Co Pilot Name Role Phone Олег Frias MD Primary Care Provid er Reason for Visit * Reason Comments eRx-Medication Refill Encounter Details Date Type Department Care Team (Late st Contact Info) Description 07/02/2024 Refill [facility] [address] [place] [address] Олег Frias MD [address] [place] [address] Major depressive disorder with single [...] CHEW CAPSULE 90 Capsule 3 4 Active Losartan Potassium 50 MG Oral Tablet (Cozaar) Take 1 Tablet by mouth in the morning. 30 Tablet 5 4 Active Additional Information Patient not taking.Reported [...] 4 Active Azithromycin 250 MG Oral Tablet (Zithromax)Indica [...] AT BEDTIME 90 Tablet 3 4 Active traZODone HCl 50 MG Oral Tablet (Desyrel)Indicati ons:Major depressive disorder with single episode, in full remission (HCC) TAKE 1 TABLET BY MOUTH AT BEDTIME 90 Tablet 1 4 07/02/20 24 Discontinued documented as of this encounter [...] encounter Miscellaneous Notes * Telephone Encounter - Omer Poon [facility] - 07/02/2024 5:09 PM EDTSigned Prescriptions: Disp Refills traZODone HCl 50 MG Oral Tablet (Desyrel) 90 Tab*3 Sig: TAKE 1 TABLET BY MOUTH AT BEDTIMEAuthorizing Provider: ОЛЕГ FRIAS User: OMER POON documented in this encounter Plan of Treatment Upcoming Encounters Date Type Department Care Team (Latest Contact Info) Description 08/26/2024 1:00 PM EST Hospital Encounter ENDO [facility], Endoscopy Room [facility] [address] [place] [phone] Omid Snell MD [address] [place] [address] 08/26/2024 1:00 PM EST - 08/26/2024 1:45 PM EST Surgery ENDO [facility], Endoscopy Room [facility] [address] [place] [phone] Omid Snell MD [address] [place] [address] ESOPHAGOGASTRODUODENOSCOPY (EGD), FLEXIBLE, TRANSORAL, ENDOSCOPIC ULTRASOUND 08/30/2024 3:30 PM EST Telemedicine Pharmacy, [facility] [address] [facility] [place] [address] Pharmacist2, [facility] [address] [facility] [place] [address] 09/30/2024 6:20 PM EST Office Visit [facility] [address] [place] [phone] Олег Frias MD [address] [place] [address] Scheduled Procedures Name Priority Associated Diagnoses Date/Ti [...] Mammogram 01/18/2024 01/17/2023, 05/2023, 06/27/2013 COVID-19 Vaccine (1 - season) [...] this encounter Medical Devices Implanted Type Area Medical Field Representative Device Identifier Shelf Expiration Date Model / Serial / Lot Vitoss Bimodal Foam Pack 10cc - [id number] Implanted:Qty : 2 on 10/11/2017 [facility] N/A: Spine Lumbar SARAH : SPINE 03/08/2019 [id number] / / [id number] Vitoss Bimodal Foam Pack 10cc - [id number] Implanted:Qty : 1 on 10/11/2017 by Rosendo Nathan DO at [facility] N/A: Spine Lumbar SARAH : SPINE 02/05/2019 [id number] / / [id number] Screw Audie Bina 3 Ti Set - [id number] Implanted:Qty : 4 on 10/11/2017 by Rosendo Nathan DO at [facility] N/A: Spine Lumbar SARAH : SPINE [id number] / / 6.5 X 50 Mm Serrate Screws Implanted:Qty : 2 on 10/11/2017 by Rosendo Nathan DO at [facility] N/A: Spine Lumbar SARAH : SPINE [id number] / / 6.5 X 45 Mm Serrate Screw Implanted:Qty : 2 on 10/11/2017 by Rosendo Nathan DO at [facility] N/A: Spine Lumbar SARAH : SPINE [id number] / / 9 X 23x 6 - 9mm Pl Implanted:Qty : 1 on 10/11/2017 by Rosendo Nathan DO at [facility] N/A: Spine Lumbar SARAH : SPINE [id number] / / Shashank Bina 3 Ti 6x40mm - [id number] Implanted:Qty : 1 on 10/11/2017 by Rosendo Nathan DO at [facility] N/A: Spine Lumbar SARAH : SPINE [id number] / / Shashank Bina 3 Ti 6x45mm - [id number] Implanted:Qty : 1 on 10/11/2017 by Rosendo Nathan DO at [facility] N/A: Spine Lumbar SARAH : SPINE [id number] / / documented as of this encounter Visit Diagnoses Diagnosis Major depressive disorder with single episode, in full remission (HCC) Pancreatic cyst Cyst and pseudocyst of pancreas documented in this encounter Advance Directives * Full Code (Latest Code Status on File) Date Activated Date Inactivated Comments 10/11/2017 9:23 AM 10/13/2017 10:36 PM This order r eflects the patients wishes and were consensually agreed upon. Care Teams Co Pilot Relationship Specialty Start Date End Date Олег Frias MD [address] [place] [address] PCP - General Family Medicine 02/18/22 documented as of this encounter
--- OUTSIDE RECORDS SUMMARY | 2024-11-07 04:10 | External Medical Summary | Summary of Care ---
Author Name Unknown Organization [facility] Address [address] [place] [address] Phone [phone] Care Team Providers Care Health Information Director Name Role Phone Олег Frias MD Primary Care Provid er Reason for Referral * Evaluate & Treat - Unlimited Visits (Within 10 days (routine)) - Pending Review Specialty Diagnoses / Procedures Referred By Jun garay Referred To Contact Gastroenterology Diagnoses Pancreas cyst Олег Frias MD [address] [place] [address] Referral ID Status Reason Start Date Expiration Date Visits Requested Visits Authorized [id number] Pending Review Specialty Services Required 4 999 [...] st Contact Info) Description 07/01/2024 Telephone Laboratory, [place] [address] [place] [address] Олег Frias MD [address] [place] [address] Test Results (Unexpected or Indeterminate [...] 05/28/2024 Dulera 200-5 MCG/ACT Inhalation Aerosol (Mometasone-Formote rol)Indications:PRODUCT SAFETY SPECIALIST D, 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) Inhale 2 Puffs by [...] Telephone Encounter - Omid Snell MD - 07/02/2024 8:22 AM EDT Please schedule EUS with me next available up to 2 months at [facility]. * Addendum Note - Олег Frias MD - 07/01/2024 5:18 PM EDTAddended by: ОЛЕГ FRIAS on: 07/01/2024 05:18 PM Modules accepted: Orders * Telephone Encounter - Олег Frias MD - 07/01/2024 5:14 PM EDT Gastro referral placed to follow pancreatic cyst * Telephone Encounter - Osiris Boyd OSA - 07/01/2024 1:31 PM EDT Robb- The radiologist discovered an unexpected or indeterminate finding on Poppy Adhikari ([id number]) and asks that you review the following [...] Thank you, ARTI Escobar Client Service Rep [facility] documented in this encounter Plan of Treatment Upcoming Encounters Date Type Department Care Team (Late st Contact Info) Description 08/30/2024 3:30 PM EST Telemedicine Pharmacy, [facility] [address] [facility] [place] [address] Pharmacist2, [facility] [address] [facility] [place] [address] 09/30/2024 6:20 PM EST Office Visit [facility] [address] [place] [phone] Олег Frias MD [address] [place] [address] Scheduled Procedures Name Priority Associated [...] 07/16/2013 DISCUSS TOBACCO CESSATION (REFER TO SMARTSET #7191) 01/06/2023 01/06/2022, 09/23/2021 DTap/Tdap Vaccines (2 - [...] this encounter Medical Devices Implanted Type Area Estimator And Drafter Device Identifier Shelf Expiration Date Model / Serial / Lot Vitoss Bimodal Foam Pack 10cc - [id number] Implanted:Qty : 2 on 10/11/2017 by Rosendo Nathan DO at [facility] N/A: Spine Lumbar SARAH : SPINE 03/08/2019 / / [id number] Vitoss Bimodal Foam Pack 10cc - [id number] Implanted:Qty : 1 on 10/11/2017 by Rosendo Nathan DO at [facility] N/A: Spine Lumbar SARAH : SPINE 02/05/2019 / / [id number] Screw Audie Bina 3 Ti Set - [id number] Implanted:Qty : 4 on 10/11/2017 by Rosendo Nathan DO at [facility] N/A: Spine Lumbar SARAH : SPINE [id number] / / 6.5 X 50 Mm Serrate Screws Implanted:Qty : 2 on 10/11/2017 by Rosendo Nathan DO at [facility] N/A: Spine Lumbar SARAH : SPINE [id number] / / 6.5 X 45 Mm Serrate Screw Implanted:Qty : 2 on 10/11/2017 by Rosendo Nathan DO at [facility] N/A: Spine Lumbar SARAH : SPINE [id number] / / 9 X 23x 6 - 9mm Pl Implanted:Qty : 1 on 10/11/2017 by Rosendo Nathan DO at [facility] N/A: Spine Lumbar SARAH : SPINE [id number] / / Shashank Bina 3 Ti 6x40mm - [id number] Implanted:Qty : 1 on 10/11/2017 by Rosendo Nathan DO at [facility] N/A: Spine Lumbar SARAH : SPINE [id number] / / Shashank Bina 3 Ti 6x45mm - [id number] Implanted:Qty : 1 on 10/11/2017 by Rosendo Nathan DO at [facility] N/A: Spine Lumbar SARAH : SPINE [id number] / / documented as of this encounter Visit Diagnoses Diagnosis Pancreas cyst- Primary Cyst and pseudocyst of pancreas documented in this encounter Advance Directives * Full Code (Latest Code Status on File) Date Activated Date Inactivated Comments 10/11/2017 9:23 AM 10/13/2017 10:36 PM This order r eflects the patients wishes and were consensually agreed upon. Care Teams Health Information Director Relationship Specialty Start Date End Date Олег Frias MD [address] [facility] [place] [address] PCP - General Family Medicine 02/18/22 documented as of this encounter
--- OUTSIDE RECORDS SUMMARY | 2024-11-07 04:10 | External Medical Summary | Summary of Care ---
Author Name Unknown Organization [facility] Address [address] [place] [address] Phone [phone] Care Team Providers Care Marketing Strategy Analyst Name Role Phone Олег Frias MD Primary Care Provid er Reason for Referral * Evaluate & Treat - Unlimited Visits (Within 10 days (routine)) - Pending Review Specialty Diagnoses / Procedures Referred By Jun garay Referred To Contact Gastroenterology Diagnoses Pancreas cyst Олег Frias MD [address] [place] [address] Referral ID Status Reason Start Date Expiration Date Visits Requested Visits Authorized [id number] Pending Review Specialty Services Required 4 999 [...] st Contact Info) Description 07/01/2024 Telephone Laboratory, [place] [address] [place] [address] Олег Frias MD [address] [place] [address] Test Results (Unexpected or Indeterminate [...] 05/28/2024 Dulera 200-5 MCG/ACT Inhalation Aerosol (Mometasone-Formote rol)Indications:TECHNICAL CLERK D, 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 * Addendum Note - Олег Frias MD [...] unexpected or indeterminate finding on Poppy Adhikari ([id number]) and asks that you review the following [...] reviewed. Thank you, ARTI Escobar Client Service [facility] documented in this encounter Plan of Treatment Upcoming Encounters Date Type Department Care Team (Latest Contact Info) Description 08/26/2024 1:00 PM EST Hospital Encounter ENDO [facility], Endoscopy Room [facility] [address] [place] [phone] Omid Keenan MD [address] [place] [address] 08/26/2024 1:00 PM EST - 08/26/2024 1:45 PM EST Surgery ENDO [facility], Endoscopy Room [facility] [address] [place] [phone] Omid Keenan MD [address] [place] [address] ESOPHAGOGASTRODUODENOSCOPY (EGD), FLEXIBLE, TRANSORAL, ENDOSCOPIC ULTRASOUND 08/30/2024 3:30 PM EST Telemedicine Pharmacy, [facility] [address] [facility] [place] [address] Pharmacist2, [facility] [address] [facility] [place] [address] 09/30/2024 6:20 PM EST Office Visit [facility] [address] [place] [address] Олег Frias MD [address] [place] [address] Scheduled Orders Name Type Priority Associated Diagnoses [...] this encounter Medical Devices Implanted Type Area Sap Fico Architect Device Identifier Shelf Expiration Date Model / Serial / Lot Vitoss Bimodal Foam Pack 10cc - [id number] Implanted:Qty : 2 on 10/11/2017 by Rosendo Nathan DO at [facility] N/A: Spine Lumbar SARAH : SPINE 03/08/2019 / / [id number] Vitoss Bimodal Foam Pack 10cc - [id number] Implanted:Qty : 1 on 10/11/2017 by Rosendo Nathan DO at [facility] N/A: Spine Lumbar SARAH : SPINE 02/05/2019 / / [id number] Screw Audie Bina 3 Ti Set - [id number] Implanted:Qty : 4 on 10/11/2017 by Rosendo Nathan DO at [facility] N/A: Spine Lumbar SARAH : SPINE [id number] / / 6.5 X 50 Mm Serrate Screws Implanted:Qty : 2 on 10/11/2017 by Rosendo Nathan DO at [facility] N/A: Spine Lumbar SARAH : SPINE [id number] / / 6.5 X 45 Mm Serrate Screw Implanted:Qty : 2 on 10/11/2017 by Rosendo Nathan DO at [facility] N/A: Spine Lumbar SARAH : SPINE [id number] / / 9 X 23x 6 - 9mm Pl Implanted:Qty : 1 on 10/11/2017 by Rosendo Nathan DO at [facility] N/A: Spine Lumbar SARAH : SPINE [id number] / / Shashank Bina 3 Ti 6x40mm - [id number] Implanted:Qty : 1 on 10/11/2017 by Rosendo Nathan DO at [facility] N/A: Spine Lumbar SARAH : SPINE [id number] / / Shashank Bina 3 Ti 6x45mm - [id number] Implanted:Qty : 1 on 10/11/2017 by Rosendo Nathan DO at [facility] N/A: Spine Lumbar SARAH : SPINE [id number] / / documented as of this encounter [...] and were consensually agreed upon. Care Teams Marketing Strategy Analyst Relationship Specialty Start Date End Date Олег Frias MD [address] [facility] [place] [phone] PCP - General Family Medicine 02/18/22 documented as of this encounter
--- OUTSIDE RECORDS SUMMARY | 2024-11-07 04:10 | External Medical Summary | Summary of Care ---
Author Name Unknown Organization [facility] Address [address] [facility] [address] Phone [phone] Care Team Providers Care Senior J2Ee Developer Name Role Phone Myesha Cavanaugh MD Primary Care Provid er Reason for Visit * Reason Comments Follow Up Encounter Details Date Type Department Care Team (Late st Contact Info) Description 07/01/2024 5:40 PM EDT Telemedicine [facility] [address] [place] [address] Myesha Cavanaugh MD [address] [place] [address] Pancreas cyst*; COPD, 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) Allergies Active Allergy Reactions Criticality Noted [...] MCG/ACT Inhalation Aerosol (Mometasone-Formot lovely)Indications:C OPD, moderate ([facility]) Inhale 2 Puffs by mouth in the [...] Progress Notes * Myesha Cavanaugh MD - 07/01/2024 6:01 PM EDT ASSESSMENT / PLAN: Poppy Adhikari is [...] Pt presented medical marijuana card as well Follows w MTM - butrans patches signed for Pancreatic complex cyst For GI - referral placed (see other TE) COPD Not well controlled - switch from dulera --> trelegy Pancreas cyst (Primary) COPD, 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) - Xbojjmejzmz-Tkujcxfjl-Ekrbwb 100-62.5-25 MCG/ACT Aerosol Powder Breath Activated (Trelegy Ellipta); Inhale 1 Puff by mouth in the morning. Check-out note: Keep f/u appt Subjective: Poppy Adhikari is a 54 year old female. No chief complaint on file. Patient location: HOME. I was in a hospital or clinic location. After connecting through Teepix[employer],patient was verified with two unique identifiers. Patient (or authorized legal technical account representative) was then informed that this was a Telemedicine visit and being conducted confidentially over secure lines. Methods to assure confidentiality were taken. Patient acknowledged consent and understanding of pr ivacy and security of the Telemedicine visit. The patient agreed to participate. HPI: here to review recent abdominal imaging - patient has h/o pancreatic cyst first seen Oct 2023 - follow up imaging and MRCP completed shows that previous lesion at the tail is no longer visualized but new complex cyst is visualized at the head. See report below. Pt is asymptomatic. Lower lung jacob with patchy opacities as well - she states she is coughing more, is off and on cigarettes. No fevers or chills. Has not been called by ramandeep regarding the higher dose of butrans patch. Has been off her pain patch x 1 week. Narrative & Impression EXAM MRI PANCREAS W WO CONTRAST-06/29/2024 2:04 pm HISTORY abnormal study, radiologist recommendation COMPARISON Limited abdominal ultrasound dated 05/20/2024, CT abdomen and pelvis dated 10/31/2023 TECHNIQUE Multiplanar, multisequential MR imaging of the abdomen was performed before and after the administration of intravenous contrast. FINDINGS The heart is normal in size. Patchy consolidations and nodules are seen in the right middle lobe and bilateral lower lobes. There are no pleural effusions. The liver is normal in size and contour. There are no liver lesions. The pancreas is unremarkable. There is no pancreatic ductal dilation. The previously seen small hypodense lesion in the tail of the pancreas is not definitively seen. There is a new complex cystic lesion in the head of the pancreas measuring 2.5 x 2.7 cm (series 5, image 23). There is no enhancement. There is no pancreatic ductal dilation. The spleen is normal in size. The adrenal glands are unremarkable. The kidneys are symmetric in size. There are no renal masses or hydronephrosis. The abdominal aorta is normal in size. The portal veins, and the splenic vein and the superior mesenteric vein are patent. There are no enlarged lymph nodes. The stomach is grossly unremarkable. There is no evidence of small bowel obstruction. There is no evidence of colitis. The small and large bowel loops are partially seen on this exam. Postoperative changes of lumbar fusion are noted. IMPRESSION IMPRESSION 1. There is a complex cystic [...] 4. Other incidental findings as detailed above. Patient Active Problem List Diagnosis Fibromyalgia Tobacco [...] Current Outpatient Medications Medication Sig Dispense Refill Hvrcyjvquwd-Xvfupcjor-Korsgr 100-62.5-25 MCG/ACT Aerosol Powder Breath Activated (Trelegy Ellipta) Inhale 1 Puff by mouth in the morning. 60 Blister Dosing Unit 5 Compressor Nebulizer Inhale via nebulizer. Use [...] BY MOUTH AT BEDTIME 90 Tablet 1 Losartan Potassium 50 MG Oral Tablet (Cozaar) Take 1 Tablet by mouth in the morning. (Patient not taking: Reported on 05/28/2024) 30 Tablet 5 FLUoxetine HCl 20 MG Oral Capsule (PROzac) [...] skin once a week. 4 Patch 2 No current facility-administered medications for this visit. Objective: General: No acute distress. Neuro: Alert Pleasant & interactive. Respiratory: Good inspiratory effort, no labored breathing. HEENT: Conjunctivae appear clear. No swelling noted face or lips. Skin: No rash visible on exposed skin areas, normal coloration & appears dry. Psych: Normal affect. Fluent speech. Myesha Cavanaugh MD [address] [phone] documented in this encounter Plan of Treatment Upcoming Encounters Date Type Department Care Team ([facility] st Contact Info) Description 08/30/2024 3:30 PM EST Telemedicine Pharmacy, [facility] [place] [address] [facility] [place] [address] Pharmacist2, [facility] [address] [place], [place] [address] 09/30/2024 6:20 PM EST Office Visit [facility] [place] [address] [facility] [place] [phone] Myesha Cavanaugh MD [address] [place] [address] Scheduled Procedures Name Priority Associated [...] 01/18/2024 01/17/2023, 05/05/2023, 06/27/2013 COVID-19 Vaccine ( - season) 2024 [...] this encounter Medical Devices Implanted Type Area Diabetes Educator Device Identifier Shelf Expiration Date Model / Serial / Lot Vitoss Bimodal Foam Pack 10cc - [id number] Implanted:Qty : 2 on 10/11/2017 by Rosendo Nathan DO at [facility] N/A: Spine Lumbar SARAH : SPINE 03/08/[id number] / / [id number] Vitoss Bimodal Foam Pack 10cc - [id number] Implanted:Qty : 1 on 10/11/2017 by Rosendo Nathan DO at [facility] N/A: Spine Lumbar SARAH : SPINE 02/05/[id number] / / [id number] Screw Audie Bina 3 Ti Set - [id number] Implanted:Qty : 4 on 10/11/2017 by Rosendo Nathan DO at [facility] N/A: Spine Lumbar SARAH : SPINE [id number] / / 6.5 X 50 Mm Serrate Screws Implanted:Qty : 2 on 10/11/2017 by Rosendo Nathan DO at [facility] N/A: Spine Lumbar SARAH : SPINE [id number] / / 6.5 X 45 Mm Serrate Screw Implanted:Qty : 2 on 10/11/2017 by Rosendo Nathan, DO at [facility] N/A: Spine Lumbar SARAH : SPINE [id number] / / 9 X 23x 6 - 9mm Pl Implanted:Qty : 1 on 10/11/2017 by Rosendo Nathan, DO at [facility] N/A: Spine Lumbar SARAH : SPINE [id number] / / Shashank Bina 3 Ti 6x40mm - [id number] Implanted:Qty : 1 on 10/11/2017 by Rosendo Nathan, DO at [facility] N/A: Spine Lumbar SARAH : SPINE [id number] / / Shashank Bina 3 Ti 6x45mm - [id number] Implanted:Qty : 1 on 10/11/2017 by Rosendo Nathan, DO at [facility] N/A: Spine Lumbar SRAAH : SPINE [id number] / / documented as of this encounter Visit Diagnoses Diagnosis Pancreas cyst- Primary Cyst and pseudocyst of pancreas COPD, 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) Chronic airway obstruction, not elsewhere classified documented in this encounter Advance Directives * Full Code (Latest Code Status on File) Date Activated Date Inactivated Comments 10/11/2017 9:23 AM 10/13/2017 10:36 PM This order r eflects the patients wishes and were consensually agreed upon. Care Teams Senior J2Ee Developer Relationship Specialty Start Date End Date Myesha Cavanaugh MD [address] [facility] [place] [address] PCP - General Family Medicine 02/18/22 documented as of this encounter
--- OUTSIDE RECORDS SUMMARY | 2024-11-07 04:10 | External Medical Summary | Summary of Care ---
Author Name Unknown Organization [facility] Address [address] [place] [address] Phone [phone] Care Team Providers Care Livestock Auctioneer Name Role Phone Myesha Cavanaugh MD Primary Care Provid er Reason for Visit * Reason Onset Date Comments Test Results 07/01/2024 Unexpected or In determinate Result Encounter Details Date Type Department Care Team (Late st Contact Info) Description 07/01/2024 Telephone Laboratory, [place] [address] [place] [address] Myesha Cavanaugh MD [address] [place] [address] Test Results (Unexpected or Indeterminate [...] 05/28/2024 Dulera 200-5 MCG/ACT Inhalation Aerosol (Mometasone-Formote rol)Indications: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 Thank you, ARTI Escobar Client Service [facility] documented in this encounter Plan of Treatment Upcoming Encounters Date Type Department Care Team (Late st Contact Info) Description 07/01/2024 5:40 PM EDT Telemedicine [facility] [address] [facility] [phone] Myesha Cavanaugh MD [address] [facility] [address] 08/30/2024 3:30 PM EST Telemedicine Pharmacy, [address] [place] [address] Pharmacist2, [facility] [address] [place] [address] 09/30/2024 6:20 PM EST Office Visit [facility] [address] [place] [phone] Myesha Cavanaugh MD [address] [place] [address] Scheduled Procedures Name Priority Associated [...] 07/16/2013 DISCUSS TOBACCO CESSATION (REFER TO SMARTSET #3562) 01/06/2023 01/06/2022, 09/23/2021 DTap/Tdap Vaccines (2 - [...] this encounter Medical Devices Implanted Type Area Pouring Crane Operator Device Identifier Shelf Expiration Date Model / Serial / Lot Vitoss Bimodal Foam Pack 10cc - [id number] Implanted:Qty : 2 on 10/11/2017 by Rosendo Nathan, DO at [facility] N/A: Spine Lumbar SARAH : SPINE 03/08/2019 / / [id number] Vitoss Bimodal Foam Pack 10cc - [id number] Implanted:Qty : 1 on 10/11/2017 by Rosendo Nathan DO at [facility] N/A: Spine Lumbar SARAH : SPINE 02/05/2019 / / [id number] Screw Audie Bina 3 Ti Set - [id number] Implanted:Qty : 4 on 10/11/2017 by Rosendo Nathan DO at [facility] N/A: Spine Lumbar SARAH : SPINE [id number] / / 6.5 X 50 Mm Serrate Screws Implanted:Qty : 2 on 10/11/2017 by Rosendo Nathan, DO at [facility] N/A: Spine Lumbar SARAH : SPINE [id number] / / 6.5 X 45 Mm Serrate Screw Implanted:Qty : 2 on 10/11/2017 by Rosendo Nathan, DO at [facility] N/A: Spine Lumbar SARAH : SPINE [id number] / / 9 X 23x 6 - 9mm Pl Implanted:Qty : 1 on 10/11/2017 by Rosendo Nathan, DO at [facility] N/A: Spine Lumbar SARAH : SPINE [id number] / / Shashank Bina 3 Ti 6x40mm - [id number] Implanted:Qty : 1 on 10/11/2017 by Rosendo Nathan, DO at [facility] N/A: Spine Lumbar SARAH : SPINE [id number] / / Shashank Bina 3 Ti 6x45mm - [id number] Implanted:Qty : 1 on 10/11/2017 by Rosendo Nathan, DO at [facility] N/A: Spine Lumbar SARAH : SPINE [id number] / / documented as of this encounter Advance Directives * Full Code (Latest Code Status on File) Date Activated Date Inactivated Comments 10/11/2017 9:23 AM 10/13/2017 10:36 PM This order r eflects the patients wishes and were consensually agreed upon. Care Teams Livestock Auctioneer Relationship Specialty Start Date End Date Myesha Cavanaugh MD [address] [facility] [place] [place] [address] PCP - General Family Medicine 02/18/22 documented as of this encounter
--- OUTSIDE RECORDS SUMMARY | 2024-11-07 04:11 | External Medical Summary | Summary of Care ---
Author Name Unknown Organization [facility] Address [address] [facility] [address] Phone [phone] Care Team Providers Care Piano Case Maker Name Role Phone Myesha Cavanaugh MD Primary Care Provid er Reason for Visit * Reason Onset Date Comments Appointment 06/26/2024 Encounter Details Date Type Department Care Team (Late st Contact Info) Description 06/26/2024 Telephone Radiology [address] [place] [address] Ivelisse Underwood, RT (R) Appointment Allergies Active Allergy Reactions Criticality Noted Date Comments Amoxicillin 01/05/2017 thrush Latex 06/20/2013 Hives, rash and swelling Lisinopril 06/02/2023 COUGH Nickel Rash 12/03/2020 documented as of this encounter (statuses as of 06/26/2024) Medications Medication Sig Dispensed Refills Start Date [...] 05/28/2024 Dulera 200-5 MCG/ACT Inhalation Aerosol (Mometasone-Formote rol)Indications:FLUID 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 4 Patch 1 04/29/2024 Active Folic Acid 1 MG Oral TabletIndications:A [...] twice daily 60 Capsule 5 06/03/2024 Active documented as of this encounter (statuses as of 06/26/2024) Active Problems Problem Noted Date Diagnosed Date [...] as of this encounter (statuses as of 06/26/2024) Resolved Problems Problem Noted Date Diagnosed Date Resolved Date Food insecurity 04/19/2021 08/26/2021 Overview: Per [facility] Protocol Asthma exacerbation 03/30/2015 07/07/20 17 Moderate persistent asthma 11/09/2014 0 03/30/2015 Overview: PFT Pneumonitis 07/24/2014 01/06/2022 Asthma exacerbation 07/24/2014 03/30/20 15 documented as of this encounter (statuses as of 06/26/2024) Immunizations Name Administration Dates Next Due PPD [...] Miscellaneous Notes * Telephone Encounter - Ivelisse Underwood RT (R) - 06/26/2024 6:10 PM EDT Name: Poppy Adhikari Do you have any of the following: Pacemaker, stents, heart valves, aneurysm clips? No Have you ever worked with metal or have you ever gotten metal in your eyes? No Have you had a colonoscopy in the last 30 days? No On dialysis? No Do you have any dermals or body piercing's? No or ? no Do you wear an insulin pump or diabetic monitor? no RT Antione (R) documented in this encounter Plan of Treatment Upcoming Encounters Date Type Department Care Team (Late st Contact Info) Description 06/28/2024 2:40 PM EDT Telemedicine Pharmacy, [facility] [address] [place] [address] Pharmacist2, [facility] [address] [facility] [address] 06/29/2024 1:00 PM EDT Imaging Radiology [facility] [address] [facility] [place] [address] 07/01/2024 5:40 PM EDT Telemedicine [facility] [address] [place] [address] Myesha Cavanaugh MD [address] [place] [address] 09/30/2024 6:20 PM EST Office Visit [facility] [address] [place] [address] Myesha Cavanaugh MD [address] [place] [address] Scheduled Procedures Name Priority Associated [...] this encounter Medical Devices Implanted Type Area Correction Officer Device Identifier Shelf Expiration Date Model / Serial / Lot Vitoss Bimodal Foam Pack 10cc - [id number] Implanted:Qty : 2 on 10/11/2017 by Rosendo Nathan DO at [facility] N/A: Spine Lumbar SARAH : SPINE 03/08/201921012018-1213 / / [id number] Vitoss Bimodal Foam Pack 10cc - [id number] Implanted:Qty : 1 on 10/11/2017 by Rosendo Nathan DO at [facility] N/A: Spine Lumbar SARAH : SPINE 02/05/2019 / / [id number] Screw Audie Bina 3 Ti Set - [id number] Implanted:Qty : 4 on 10/11/2017 by Rosendo Nathan DO at [facility] N/A: Spine Lumbar SARAH : SPINE [id number] / / 6.5 X 50 Mm Serrate Screws Implanted:Qty : 2 on 10/11/2017 by Rosendo Nathan DO at [facility] N/A: Spine Lumbar SARAH : SPINE [id number] / / 6.5 X 45 Mm Serrate Screw Implanted:Qty : 2 on 10/11/2017 by Rosendo Nathan DO at [facility] N/A: Spine Lumbar SARAH : SPINE [id number] / / 9 X 23x 6 - 9mm Pl Implanted:Qty : 1 on 10/11/2017 by Rosendo Nathan, DO at [facility] N/A: Spine Lumbar SARAH : SPINE [id number] / / Shashank Bina 3 Ti 6x40mm - [id number] Implanted:Qty : 1 on 10/11/2017 by Rosendo Nathan, DO at [facility] N/A: Spine Lumbar SARAH : SPINE [id number] / / Shashank Bina 3 Ti 6x45mm - [id number] Implanted:Qty : 1 on 10/11/2017 by Rosendo Nathan, DO at [facility] N/A: Spine Lumbar SARAH : SPINE [id number] / / documented as of this encounter Advance Directives * Full Code (Latest Code Status on File) Date Activated Date Inactivated Comments 10/11/2017 9:23 AM 10/13/2017 10:36 PM This order r eflects the patients wishes and were consensually agreed upon. Care Teams Piano Case Maker Relationship Specialty Start Date End Date Myesha Cavanaugh MD [address] [facility] [place] [address] PCP - General Family Medicine 02/18/22 documented as of this encounter
--- OUTSIDE RECORDS SUMMARY | 2024-11-07 04:11 | External Medical Summary | Summary of Care ---
Author Name Unknown Organization [facility] [address] [facility] [address] Phone [phone] Care Team Providers Care Forest Fire Specialist Supervisor Name Role Phone Myesha Cavanaugh MD Primary Care Provid er Reason for Visit * Reason Comments Dosage Adjustment In Person (Anticoag Cl inic) Diabetes Management Encounter Details Date Type Department Care Team (Late st Contact Info) Description 06/28/2024 2:40 PM EDT Telemedicine Pharmacy, [facility] [address] [facility] [place] [address] Pharmacist2, [facility] [address] [facility] [place] [address] Spinal stenosis of lumbar region with neurogenic [...] twice daily 60 Capsule 5 06/03/2024 Active LORazepam 0.5 MG Oral Tablet (Ativan)Indicatio ns:Anxiety TAKE 1 TABLET BY MOUTH ONCE DAILY NEEDED FOR ANXIETY 30 Tablet 01/18/2024 06/28/20 24 Discontinued documented as of this [...] as of this encounter Progress Notes * Tramaine Isaac, [facility] - 06/28/2024 2:38 PM EDT Images from the original note were not included. Medication Therapy Disease Management - Chronic Pain History of Presenting Illness Patient location: HOME. I was in a hospital or clinic location. After connecting through tele[employer] Life [employer],patient was verified with two unique identifiers. Patient (or authorized legal motor vehicle representative) was then informed that this was [...] with Dosage Adjustment In Person (Anticoag Clinic) Diabetes Management Chronic Pain History Past Pain Medications SA Opioids: Percocet & [place] Current Pain Medications: Flexeril 5mg TID prn spasms Cymbalta 60mg QAM Lyrica 150mg BID STOP: Hydrocodone/Apap 7.5/325 Q12H (22.5MME) START: Butrans 5mcg/hr (9MME) Activity/Exercise: painting/art work Functional Goal(s) QOL Interval History Today: Pt reports that Butrans was doing well in the beginning Pt reports that the butrans does take the "edge off" of the pain Pt states she would like to trial a slightly higher dose to see if further pain control can be achieved Last visit: Pt reporst back pain/issues for 20+ years 1st lumbar fusion performed in 2017 2nd lumbar fusion performed in December 2023 History of Presenting Illness & Review of [...] in compliance with the [facility] regulations. Most recent answers to PEG-3 scale: PEG-3 Synopsis What number best describes your pain on average in the past week?: 6 (06/28/2024 2:47 PM) What number best describes how, during the past week, pain has interfered with your enjoyment of life?: 4 (06/28/2024 2:47 PM) What number best describes how, during the past week, pain has interfered with your general activity?: 7 (06/28/2024 2:47 PM) PEG Pain Total Score: 5.67 (06/28/2024 2:47 PM) Last Urine Toxicology Screening Results for [...] screening results are reflexed to confirmatory testing. Creatinine Clearance: Creatinine clearance cannot be calculated [...] patient is: Adherent to regimen. Treatment Options Offered to increase butrans patch to 7.5mcg/hr Treatment Concerns N/A Education Provided N/a Recommendations INC: Butrans 7.5mcg/hr patch applied once weekly Patient verbalized understanding of the plan. Contact clinic with any issues. 08/30/2024 I spent a total of 30-39 minutes (exact time 30 mins) on the date of service in preparation, delivery, and documentation of the care provided to Poppy Adhikari excluding any time spent in the performance of separately billed services or time spent by another provider/QHP. Tramaine Isaac [facility] Clinical Pharmacist - Bread Oven Operator Medication Therapy Management Clinic 06/28/2024 - 2:39 PM documented in this encounter Plan of Treatment Upcoming Encounters Date Type Department Care Team (Late st Contact Info) Description 06/29/2024 1:00 PM EDT Imaging Radiology [facility] [facility] [place] [address] [facility] [place] [address] 07/01/2024 5:40 PM EDT Telemedicine [place] [address] [facility] [phone] Myesha Cavanaugh MD [address] [facility] [address] 08/30/2024 3:30 PM EST Telemedicine Pharmacy, [facility] [address] [facility] [place] [address] Pharmacist2, [facility] [address] [facility] [place] [address] 09/30/2024 6:20 PM EST Office Visit [place] [address] [facility] [phone] Myesha Cavanaugh MD [address] [facility] [place] [phone] Scheduled Procedures Name Priority Associated Diagnoses Date/Ti [...] 07/16/2013 DISCUSS TOBACCO CESSATION (REFER TO SMARTSET #1405) 01/06/2023 01/06/2022, 09/23/2021 DTap/Tdap Vaccines (2 - [...] encounter Medical Devices Implanted Type Area Chief Informatics Officer Device Identifier Shelf Expiration Date Model / Serial / Lot Vitoss Bimodal Foam Pack 10cc - [id number] Implanted:Qty : 2 on 10/11/2017 by Rosendo Nathan, at [facility] N/A: Spine Lumbar SARAH : SPINE 03/08/2019 / / [id number] Vitoss Bimodal Foam Pack 10cc - [id number] Implanted:Qty : 1 on 10/11/2017 by Rosendo Nathan, at [facility] N/A: Spine Lumbar SARAH : SPINE 02/05/2019 / / [id number] Screw Audie Bina 3 Ti Set - [id number] Implanted:Qty : 4 on 10/11/2017 by Rosendo Nathan DO at [facility] N/A: Spine Lumbar SARAH : SPINE [id number] / / 6.5 X 50 Mm Serrate Screws Implanted:Qty : 2 on 10/11/2017 by Rosendo Nathan DO at [facility] N/A: Spine Lumbar SARAH : SPINE [id number] / / 6.5 X 45 Mm Serrate Screw Implanted:Qty : 2 on 10/11/2017 by Rosendo Nathan DO at [facility] N/A: Spine Lumbar SARAH : SPINE [id number] / / 9 X 23x 6 - 9mm Pl Implanted:Qty : 1 on 10/11/2017 by Rosendo aNthan DO at [facility] N/A: Spine Lumbar SARAH : SPINE [id number] / / Shashank Bina 3 Ti 6x40mm - [id number] Implanted:Qty : 1 on 10/11/2017 by Rosendo Nathan DO at [facility] N/A: Spine Lumbar SARAH : SPINE [id number] / / Shashank Bina 3 Ti 6x45mm - [id number] Implanted:Qty : 1 on 10/11/2017 by Rosendo Nathan DO at [facility] N/A: Spine Lumbar SARAH : SPINE [id number] / / documented as of this encounter [...] and were consensually agreed upon. Care Teams Forest Fire Specialist Supervisor Relationship Specialty Start Date End Date Myesha Cavanaugh MD [address] [place] [address] PCP - General Family Medicine 02/18/22 documented as of this encounter
--- OUTSIDE RECORDS SUMMARY | 2024-11-07 06:22 | External Medical Summary | Summary of Care ---
Author Name Unknown Organization [facility] Address [address] [place] [address] Phone [phone] Care Team Providers Care Outside Sales Inspector Name Role Phone Myesha Cavanaugh MD Primary Care Provid er Encounter Details Date Type Department Care Team (Late st Contact Info) Description 11/06/2024 Telephone Gastroenterology, [facility] [address] [place] [address] Omid Snell MD [address] [place] [address] Allergies Active Allergy Reactions Criticality Noted Date Comments Amoxicillin 01/05/2017 thrush Latex 06/20/2013 Hives, rash and swelling Lisinopril 06/02/2023 COUGH Nickel Rash 12/03/2020 documented as of this encounter (statuses as of 11/06/2024) Medications Compressor NebulizerIndicat ions:Moderate persistent asthma without complication,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 Use [...] before bedtime. 60 Capsule 2 5 Active FLUoxetine HCl 40 MG Oral Capsule (PROzac)Indicati ons:Major depressive disorder with single episode, in full remission (HCC) Take 1 capsule by mouth once daily in the morning 90 Capsule 1 5 Active EQ All Day Allergy Relief 10 MG Oral Tablet (Loratadine) Take 1 tablet by mouth once daily 90 Tablet 1 5 Active HYDROcodone-Acet aminophen 7.5-325 MG Oral TabletIndication s:Spinal stenosis of lumbar region with neurogenic claudication,Chr onic left shoulder pain Take 1 Tablet by mouth every 8 hours as needed for Pain, Severe. 90 Tablet 5 Active documented as of this encounter (statuses as of 11/06/2024) Active Problems Problem Noted Date Diagnosed Date [...] as of this encounter (statuses as of 11/06/2024) Resolved Problems Problem Noted Date Diagnosed Date Resolved Date Food insecurity 04/19/2021 08/26/2021 Overview: Per [facility] Protocol Asthma exacerbation 03/30/2015 07/07/20 17 Moderate persistent asthma 11/09/2014 0 03/30/2015 Overview (11/13/2014): PFT Pneumonitis 07/24/2014 01/06/2022 Asthma exacerbation 07/24/2014 03/30/20 15 documented as of this encounter (statuses as of 11/06/2024) Immunizations Name Administration Dates Next Due PPD [...] 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 Cavanaugh's office called and stated the patient is complaining of ABD pain that is radiating to her back with chills. Dr. Cavanaugh sent the pt to the ED. The pt was agreeable. They called to inform Dr. Snell. documented in this encounter Plan of Treatment Upcoming Encounters Date Type Department Care Team (Late st Contact Info) Description 11/13/2024 3:30 PM EST Office Visit Orthopaedics [facility] [address] [place] [phone] Darrin Celestin MD [address] [place] [phone] 11/14/2024 11:40 AM EST Telemedicine Pharmacy, [facility] [address] [place] [address] [facility] [address] [place] [address] 03/26/2025 3:00 PM EDT Laboratory Laboratory, [facility] [address] [place] [address] [phone] [facility] [address] [place] [address] 03/31/2025 3:20 PM EDT Office Visit Family Practice, [facility] [address] [place] [address] [phone] Myesha Cavanaugh MD [address] [place] [address] Scheduled Procedures Name Priority Associated Diagnoses Date/Ti [...] this encounter Medical Devices Implanted Type Area Assistant Athletic Trainer Device Identifier Shelf Expiration Date Model / Serial / Lot Vitoss Bimodal Foam Pack 10cc - [id number] Implanted:Qty : 2 on 10/11/2017 by Rosendo Nathan, DO at [facility] N/A: Spine Lumbar SARAH : SPINE 03/08/2019 [id number] / / [id number] Vitoss Bimodal Foam Pack 10cc - [id number] Implanted:Qty : 1 on 10/11/2017 by Rosendo Nathan DO at [facility] N/A: Spine Lumbar SARAH : SPINE 02/05/2019 [id number] / / [id number] Screw Audie Bina 3 Ti Set - [id number] Implanted:Qty : 4 on 10/11/2017 by Rosendo Nathan DO at [facility] N/A: Spine Lumbar SARAH : SPINE [id number] / / 6.5 X 50 Mm Serrate Screws Implanted:Qty : 2 on 10/11/2017 by Rosendo Nathan DO at [facility] N/A: Spine Lumbar SARAH : SPINE [id number] / / 6.5 X 45 Mm Serrate Screw Implanted:Qty : 2 on 10/11/2017 by Rosendo Nathan DO at [facility] N/A: Spine Lumbar SARAH : SPINE [id number] / / 9 X 23x 6 - 9mm Pl Implanted:Qty : 1 on 10/11/2017 by Rosendo Nathan DO at [facility] N/A: Spine Lumbar SARAH : SPINE [id number] / / Shashank Bina 3 Ti 6x40mm - [id number] Implanted:Qty : 1 on 10/11/2017 by Rosendo Nathan DO at [facility] N/A: Spine Lumbar SARAH : SPINE [id number] / / Shashank Bina 3 Ti 6x45mm - [id number] Implanted:Qty : 1 on 10/11/2017 by Rosendo Nathan DO at [facility] N/A: Spine Lumbar SARAH : SPINE [id number] / / Stent Axios 14rmx57bd - [id number] Implanted:Qty : 1 on 09/18/2024 by Omid Snell MD at [facility] : ENDOSCOPY [id number] 05/27/2026 [id number] / / [id number] documented as of this encounter Advance Directives * Full Code (Latest Code Status on File) Date Activated Date Inactivated Comments 10/11/2017 9:23 AM 10/13/2017 10:36 PM This order r eflects the patients wishes and were consensually agreed upon. Care Teams Outside Sales Inspector Relationship Specialty Start Date End Date Myesha Cavanaugh MD [address] [place] [address] PCP - General Family Medicine 09/18/24 documented as of this encounter
--- OUTSIDE RECORDS SUMMARY | 2024-11-07 06:22 | External Medical Summary | Summary of Care ---
Author Name Unknown Organization [facility] Address [address] [facility] [place] [address] Phone [phone] Care Team Providers Care Optical Manager Name Role Phone Myesha Cavanaugh MD Primary Care Provid er Reason for Visit * Reason Onset Date Comments Advice 11/06/2024 Encounter Details Date Type Department Care Team (Late st Contact Info) Description [facility]/[address] 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 She has had LUQ pain for 1 week rating it 10/10 radiating to her back with chills and sweats and no fever. Recommended ER for evaluation. Patient agreed to go to ER. Spoke with NIKKI Ruvalcaba with ER evaluation. Also called and spoke to Souleymane in GI to notify Dr. Snell. Reason for Call: Advice Contact: Telephone Call Contact Type: Advice Provider In-Basket: Yes Outcome: See above Face to face time spent with Patient (minutes): 0 Total Time including non face to face (minutes): 10 * Telephone Encounter - Farhana Olivo LPN - 11/06/2024 12:12 PM EST Called patient. Reports LUQ pain x 1 week. Pain is currently 06/20. Radiates around side to back. Denies SOB, dyspnea. No fever but has chills. Had pancreatic stent removed on 10/23. Routing to [facility] for 06/20 abdominal pain-ER? * Telephone Encounter - Aubree Cohen OSA - 11/06/2024 11:46 AM EST No Appointments Available What Visit Type is needed? Acute Were surrounding clinics offered? Yes Call Details are required. Please review Patient declined available appointment(s)?: Yes, explain: pt declined appts tomorrow as she wants to be seen today Were other providers in the clinic offered? N/A documented in this encounter Plan of Treatment Upcoming Encounters Date Type Department Care Team (Late st Contact Info) Description 11/13/2024 3:30 PM EST Office Visit Orthopaedics [facility] [address] [place] [phone] Darrin Celestin MD [address] [place] [phone] 11/14/2024 11:40 AM EST Telemedicine Pharmacy, [facility] [address] [place] [address] [facility] [address] [place] [address] 03/26/2025 3:00 PM EDT Laboratory Laboratory, [facility] [place] [phone] [facility] [address] [place] [address] 03/31/2025 3:20 PM EDT Office Visit Family Practice, [facility] [address] [place] [phone] Myesha Cavanaugh MD [address] [place] [address] Scheduled Procedures Name Priority Associated Diagnoses Date/Ti [...] this encounter Medical Devices Implanted Type Area Production Inspector Device Identifier Shelf Expiration Date Model / Serial / Lot Vitoss Bimodal Foam Pack 10cc - [id number] Implanted:Qty : 2 on 10/11/2017 by Rosendo Nathan, DO at [facility] N/A: Spine Lumbar SARAH : SPINE 03/08/[id number] / / [id number] Vitoss Bimodal Foam Pack 10cc - [id number] Implanted:Qty : 1 on 10/11/2017 by Rosendo Nathan, DO at [facility] N/A: Spine Lumbar SARAH : SPINE 02/05/[id number] / / [id number] Screw Uadie Bina 3 Ti Set - [id number] Implanted:Qty : 4 on 10/11/2017 by Rosendo Nathan, DO at [facility] N/A: Spine Lumbar SARAH : SPINE [id number] / / 6.5 X 50 Mm Serrate Screws Implanted:Qty : 2 on 10/11/2017 by Rosendo Nathan DO at [facility] N/A: Spine Lumbar SARAH : SPINE [id number] / / 6.5 X 45 Mm Serrate Screw Implanted:Qty : 2 on 10/11/2017 by Rosendo Nathan DO at [facility] N/A: Spine Lumbar SARAH : SPINE [id number] / / 9 X 23x 6 - 9mm Pl Implanted:Qty : 1 on 10/11/2017 by Rosendo Nathan DO at [facility] N/A: Spine Lumbar SARAH : SPINE [id number] / / Shashank Bina 3 Ti 6x40mm - [id number] Implanted:Qty : 1 on 10/11/2017 by Rosendo Nathan DO at [facility] N/A: Spine Lumbar SARAH : SPINE [id number] / / Shashank Bina 3 Ti 6x45mm - [id number] Implanted:Qty : 1 on 10/11/2017 by Rosendo Nathan DO at [facility] N/A: Spine Lumbar SARAH : SPINE [id number] / / Stent Axios [id number] - [id number] Implanted:Qty : 1 on 09/18/2024 by Omid Snell MD at [facility] [id number] 05/27/2026 [id number] / / [id number] documented as of this encounter Advance Directives * Full Code (Latest Code Status on File) Date Activated Date Inactivated Comments 10/11/2017 9:23 AM 10/13/2017 10:36 PM This order r eflects the patients wishes and were consensually agreed upon. Care Teams Optical Manager Relationship Specialty Start Date End Date Myesha Cavanaugh MD [address] [place] [address] PCP - General Family Medicine 09/18/24 documented as of this encounter
[2024-11-07 06:23] LABS: Calcium 8.1 mg/dl (8.6-10.3); Magnesium 1.2 mg/dl (1.7-2.4); Potassium 3.5 mmol/L (3.5-5.1)
[2024-11-07] MEDS: GABAPENTIN 600 MG TAB PO SCH ×2 (06:28→20:14)
[2024-11-07 06:29] LABS: BUN Creatinine Ratio 18.8 (10-20); Creatinine Clr Calc Pharmacy 65.7 ml/min
[2024-11-07] MEDS: amLODIPine BESYLATE 5 MG TAB PO SCH (07:40)
[2024-11-07] MEDS: FOLIC ACID 1 MG TAB PO SCH (07:42)
[2024-11-07] MEDS: DULoxetine HCL 60 MG CAP PO SCH (07:42)
[2024-11-07] MEDS: FLUTICASONE/VILANTEROL 200/25MCG 14 PUFFS/INHALER INH SCH (07:43)
[2024-11-07] MEDS: LOSARTAN POTASSIUM 50 MG TAB PO SCH (07:43)
[2024-11-07] MEDS: MULTIVITAMIN TAB PO SCH (07:44)
[2024-11-07] MEDS: PANTOprazole 40 MG TAB PO SCH (07:44)
[2024-11-07] MEDS: THIAMINE HCL 100 MG TAB PO SCH (07:44)
[2024-11-07 07:45] LABS: Basophils # (auto) 0.06 K/uL (0.00-0.20); Basophils % (auto) 0.6 %; Eosinophils # (auto) 0.12 K/uL (0.00-0.50); Eosinophils % (auto) 1.1 %; Hematocrit (blood only) 27.6 % (37.0-47.0); Hemoglobin 10.2 g/dl (12.0-16.0); Immature Granulocytes % (auto) 0.9 %; Lymphocytes # (auto) 2.11 K/uL (1.20-3.40); Mean Corpuscular Hemoglobin 31.1 pg (25.0-34.0); Mean Corpuscular Volume 84.1 fL (80.0-100.0); Mean Platelet Volume 10.3 fL (9.4-12.4); Monocytes # (auto) 1.01 K/uL (0.11-0.59); Monocytes % (auto) 9.6 %; Neutrophils # (auto) 7.14 K/uL (1.40-6.50); Neutrophils % (auto) 67.8 %; Platelet Count 297 K/uL (130-400); RDW Coefficient of Variation 13.8 % (11.5-14.5); RDW Standard Deviation 42.5 fL (36.4-46.3); Red Blood Count 3.28 M/uL (4.20-5.40); White Blood Count 10.54 K/ul (4.8-10.8)
[2024-11-07] MEDS ORDERED: cloNIDine HCL 0.1 MG TAB PO PRN (08:03)
[2024-11-07] MEDS: PREGABALIN 150 MG CAP PO SCH (08:10)
[2024-11-07] MEDS: HYDROmorphone INJ 0.5 MG/0.5 ML SYR IV PRN (08:11)
--- NOTE | 2024-11-07 09:59 | Gastrointestinal Consultation ---
Date of Consultation November 07, 2024 Assessment & Plan (1) Pancreatitis: Plan Patient with a history of recurrent pancreatitis, here today with another episode in the setting of drinking alcohol again after recent pancreatic stent removal. - recommend NPO, IVF, and pain control. - can advance to clears when she feels ready. - we discussed that she should avoid all alcohol use. - would recommend she follow with her regular tearer at [facility] upon discharge. Supervising Physician Co-Signing Physician Notes History of chronic pancreatitis. Recent axial stent removed however pain did not start for a week to week and a half post removal. She resumed her alcohol ingestion which she states could be up to 6 beers per day. Patient also smokes. Reviewed with her both of these are associated with recurrent acute on chronic pancreatitis. Discussed the potential for development of pancreatic insufficiency and insulin-dependent diabetes. Advised the patient there is no safe smoking or alcohol levels. She states that many of her friends drink more without issues. I relayed to her when she is sensitized she is more likely to develop these recurrent problems going forward and the concern for development of more complications of her pancreatic disease are likely. I believe she she is developing some fibrosis in the head of the pancreas as evident by dilating bile duct with narrowing at the pancreatic head. She is also had slight elevation of her bilirubin and alkaline phosphatase which are new. Some of this bile duct dilation may be related to the acute pancreatitis on the background of fibrosis. However she may develop progressive biliary dilatation going forward and this will need to be monitored. Outpatient CMP in a week and then monthly x 3 recommended. If there is progressive increase in liver enzymes consistent with obstruction patient may require biliary stenting. Reviewed with the patient all of this may improve with avoiding cigarette smoking and alcohol and stabilization of her recurrent acute on chronic pancreatitis. She is actually feeling better at this time. Tolerating p.o. Abdomen benign minimal tenderness in the right upper quad History of Present Illness Reason for Consultation: recurrent pancreatitis, recent Axios stent removed Requesting Physician: Fer Ponce DO Attending Physician: Khanh Reddy MD History of Present Illness Patient is a 54 year old female with a known history of alcohol induced pancreatitis, pancreatic cyst with Axios stent placed for drainage 09/2024 with Axios stent removal on 10/23/2024 who presented to the ED with complaints of nausea, vomiting, and abdominal pain. She thought that since the pancreatic cyst had resolved and the stent was removed it was okay to drink alcohol. She reports drinking 2-3 beers a night since she had stent removed. About 4 days after she started this, she started with abdominal pain, nausea, and vomiting. She had CT imaging consistent with pancreatitis. Since admission, she reports that she has been feeling better. Nausea/vomiting resolved. never had hematemesis. abdominal pain is improving. currently rated 6/10. no reflux. She was having some diarrhea but this has since resolved. no blood in the stools or melena. 11/07/24 wbc 10.53, hgb 10.2, hct 27.6, platelets 297. t bili 0.5, AST 17, ALT 17, Alk phos 166. lipase 321. CT 11/06/24 Mild peripancreatic fat stranding with mild diffuse interstitial edema of the pancreas, suggestive of mild acute pancreatitis. Clinical and laboratory correlation are recommended. The common bile duct is mildly dilated (10 mm) with mild intrahepatic biliary dilatation. (Mild progressed, was 7 mm in prior study). The pancreatic duct is mildly dilated (7 mm), may be post pancreatic stent removal. (stable) Resolved pancreatic head cystic lesion seen in the previous study. Allergies Allergy/AdvReac Type Severity Reaction Status Date / Time latex Allergy Intermediate ITCHY Verified 11/06/24 21:39 nickel Allergy Intermediate Rash Verified 11/06/24 21:39 tea tree Allergy Unknown Hives Verified 06/25/24 12:37 amoxicillin AdvReac Intermediate thrush Verified 11/06/24 21:39 lisinopril AdvReac Cough Verified 11/06/24 21:38 Home Medications Medication Instructions Recorded Confirmed Type albuterol sulfate 90 mcg/actuation 2 puff inhalation Q4 PRN Breath Or 09/25/19 11/06/24 History aerosol inhaler Wheezing loratadine 10 mg tablet 10 mg PO QDL 09/25/19 11/06/24 History trazodone 50 mg tablet 50 mg PO HS 09/25/19 11/06/24 History duloxetine 60 mg capsule,delayed 60 mg PO QAM 03/08/23 11/06/24 History release mometasone-formoterol HFA 200 2 puff inhalation BID 03/08/23 11/06/24 History mcg-5 mcg/actuation aerosol inhaler (Dulera) omeprazole 20 mg capsule,delayed 20 mg PO BID 03/08/23 11/06/24 History release pregabalin 150 mg capsule 150 mg PO AMHS 03/08/23 11/06/24 History fluoxetine 20 mg capsule 20 mg PO QAM 04/16/24 11/06/24 History fluoxetine 40 mg capsule 40 mg PO QAM 04/16/24 11/06/24 History hydroxyzine HCl 50 mg tablet 50 mg PO Q6H PRN ITCHING/ANXIETY 04/16/24 11/06/24 History montelukast 10 mg tablet 10 mg PO HS 04/16/24 11/06/24 History losartan 50 mg tablet 50 mg PO QAM 06/24/24 11/06/24 History fluticasone fur. 100 mcg-umeclid 1 ea inhalation QAM 11/06/24 11/06/24 History 62.5 mcg-vilant 25 mcg inhalat.powder (Trelegy Ellipta) hydrocodone 7.5 mg-acetaminophen 1 tab PO Q8 PRN pain,severe 11/06/24 11/06/24 History 325 mg tablet Patient History Medical History (Updated 11/07/24 @ 09:20 by Taz Barnett DO) History of renal dialysis due to overdose of vancomycin. 2019 Vancomycin-induced nephrotoxicity caused renal failure 2019 and required dialysis 3 times a week for one to two months Chronic back pain Depression GERD (gastroesophageal reflux disease) History of alcohol abuse Chronic anemia pt not aware Alcoholic encephalopathy hx Medical marijuana use HTN (hypertension) pt denies Fatty liver History of COVID-19 (2021) no hosp; resolved Hx: recurrent pneumonia states yearly issues w/ pneumonia or bronchitis last time ? 2022 Asthma controlled w/ daily inhaler use Fibromyalgia Cyst of pancreas Hx of acute pancreatitis Alcoholic cerebellar degeneration Surgical History Hx of tooth extraction History of esophagogastroduodenoscopy (EGD) Hx of tonsillectomy History of spinal surgery unsure what level Family History Other Asthma Cancer Social History Smoking Status: Current every day smoker Tobacco Type: Cigarettes Cigarettes Per Day: couple a day; Second Hand Exposure: No; Do You Dip or Chew Tobacco: No; Hx Alcohol Use: Yes Alcohol type: beer and hard liquor Alcohol Intake Frequency Comment: 5-6 daily Hx Substance Use: Yes Last Used Substance Other:: medical card Preferred Language: Vietnamese Communication Ability: Effective Cat Dog Or Other Pet Groomer Required: No Beliefs That Will Affect Care: None Current Living Situation: Significant Other Feels Safe at Home: Yes Safety Concerns: Feels Safe At This Time Assistive Devices: Cane, Walker and Wheelchair Review of Systems Review of Systems: All systems reviewed & are unremarkable except as noted in HPI & below Physical Exam Constitutional: WD/WN, vitals as above Respiratory: normal respiratory effort, lungs clear to auscultation Cardiovascular: Rate/Rhythm: regular rate and regular rhythm Gastrointestinal (Abdomen): mild epigastric tenderness to palpation, no guarding, soft, normal bowel sounds. Psychiatric: Orientation: alert and oriented x 3 Affect: euthymic affect Results & Data Vital Signs (Past 12 Hours) Vital Signs Temp Pulse Pulse Resp BP BP BP 11/07/24 08:16 95 H 170/108 H 11/07/24 07:41 98.6 F 105 H 17 186/112 H 11/07/24 07:32 11/07/24 06:12 98.4 F 106 H 16 155/94 H 11/07/24 02:50 97.9 F 116 H 16 163/103 H 11/07/24 00:56 97.5 F L 119 H 20 186/115 H 11/06/24 23:09 97.9 F 117 H 24 183/121 H 11/06/24 23:00 97.9 F 117 H 24 183/121 H 11/06/24 22:34 110 H 24 191/115 H 11/06/24 22:30 107 H 20 191/115 H 11/06/24 22:00 107 H 24 187/156 H Pulse Ox O2 Del Method 11/07/24 08:16 11/07/24 07:41 97 Room Air 11/07/24 07:32 Room Air 11/07/24 06:12 98 Room Air 11/07/24 02:50 96 Room Air 11/07/24 00:56 100 Room Air 11/06/24 23:09 100 Room Air 11/06/24 23:00 100 Room Air 11/06/24 22:34 100 Room Air 11/06/24 22:30 100 Room Air 11/06/24 22:00 100 Coding Level of Care Code 89670 IN/OBS CONSULT LVL 4,60M Diagnoses Pancreatitis K85.90
--- NOTE | 2024-11-07 10:18 | Hospitalist Progress Note ---
Date of Service November 07, 2024 Assessment & Plan (1) Acute pancreatitis: (2) Urinary tract infection: (3) Chronic hyponatremia: (4) Alcohol abuse: (5) Spinal stenosis of lumbar region with neurogenic claudication: (6) Alcoholic peripheral neuropathy: (7) Major depression, chronic: (8) Essential hypertension: (9) COPD (chronic obstructive pulmonary disease): Plan Patient 54-year-old female with known history of recurrent alcohol induced pancreatitis who recently had Axios stent removed that had been placed for pancreatic cyst. Patient started drinking beers shortly after the stent was removed. Now presents with abdominal pain, nausea, vomiting. CT imaging co nsistent with pancreatitis. Mildly elevated lipase. Also laboratory evidence of a UTI. She is being treated for following conditions; Acute pancreatitis Alcohol use disorder Recent history of acute pancreatitis complicated by pseudocyst; Axios stent was placed in September and removed on October 23 CT abdomen pelvis on admission shows mild acute pancreatitis; mildly dilated CBD and mild intrahepatic biliary dilation. Pancreatic duct is also mildly dilated Total bilirubin, AST ALT within normal limits. ALP elevated to 166 Continue pain control, IV fluids Will follow-up on MRCP Acute UTI Urinalysis suggestive of UTI Continue on Rocephin; follow-up on final culture results Hyponatremia Likely due to poor solute intake Serum sodium of 127 on admission; improved to 131 Continue normal saline Hypertension Blood pressure likely elevated in setting of pain/illness Losartan increased to 100 mg once a day. continue amlodipine COPDcontinue home inhalers Mood disordercontinue home medication Full code DVT prophylaxis heparin Time spent evaluating patient, direct bedside care, chart review, placing orders, interpretation of diagnostic studies, discussion with consultants, patient, and family members, as well as other required patient management activities is 50 minutes Please note the above document was generated using voice recognition software. It may contain grammatical, syntax or spelling errors. Any formal questions or concerns about the content, text or information contained within the body of this dictation should be directly addressed to the provider for clarification Admission and Anticipated Discharge Date Admission Date: November 06, 2024 Subjective Patient seen and examined at bedside She is lying on the bed comfortably; not in distress She denies any withdrawal symptoms including tremors or hallucinations Pain is well-controlled on current medication Review of Systems Review of Systems: All systems reviewed & are unremarkable except as noted in Subjective Physical Exam Physical Exam: Constitutional: Alert oriented x 3; not in distress. Respiratory: normal respiratory effort, lungs clear to auscultation, no wheeze, rales, rhonchi. Normal insp/exp effort, no accessory muscle use Cardiovascular: RRR, no murmur, no edema Vessels: no JVD or carotid bruit Chest: normal inspection of chest Abdomen: Mild tenderness present in epigastric region. Musculoskeletal: no cyanosis or clubbing, extremities motor strength 5/5 Skin: no rashes, warm and dry normal turgor Neurologic: PERRL, EOMI, accommodation nl, no face palsy, no dysarthria CN's II- XI intact bilaterally and moves all extremities Results & Data Results & Data Vital Signs (Past 12 Hours) Vital Signs Temp Pulse Pulse Resp BP BP BP 11/07/24 08:16 95 H 170/108 H 11/07/24 07:41 37.0 C 105 H 17 186/112 H 11/07/24 07:32 11/07/24 06:12 36.9 C 106 H 16 155/94 H 11/07/24 02:50 36.6 C 116 H 16 163/103 H 11/07/24 00:56 36.4 C L 119 H 20 186/115 H 11/06/24 23:09 36.6 C 117 H 24 183/121 H 11/06/24 23:00 36.6 C 117 H 24 183/121 H 11/06/24 22:34 110 H 24 191/115 H 11/06/24 22:30 107 H 20 191/115 H Pulse Ox O2 Del Method 11/07/24 08:16 11/07/24 07:41 97 Room Air 11/07/24 07:32 Room Air 11/07/24 06:12 98 Room Air 11/07/24 02:50 96 Room Air 11/07/24 00:56 100 Room Air 11/06/24 23:09 100 Room Air 11/06/24 23:00 100 Room Air 11/06/24 22:34 100 Room Air 11/06/24 22:30 100 Room Air (1) Acute pancreatitis Acute pancreatitis complication: unspecified Pancreatitis type: alcohol induced Qualified Code(s): K85.20 - Alcohol induced acute pancreatitis without necrosis or infection
[2024-11-07] MEDS: MAGNESIUM SULFATE / D5W 1 GM/100 ML BAG IV SCH (11:28)
[2024-11-07] MEDS: LORATADINE 10 MG TAB PO SCH (11:29)
[2024-11-07] MEDS: oxyCODONE HCL IR 5 MG TAB (IMMEDIATE RELEASE) PO PRN (11:34)
[2024-11-07] MEDS: HEPARIN SOD 5,000 UNIT/0.5 ML VIAL SQ SCH (12:26)
--- NOTE | 2024-11-07 14:24 | Magnetic Resonance Report ---
MR MRCP HISTORY: 54 years-old Female pancreatitis acute pancreatitis COMPARISON: CT abdomen and pelvis 11/06/2024, 04/16/2024. TECHNIQUE: MRCP was obtained without IV contrast utilizing institutional protocol. FINDINGS: The study is motion degraded. No acute lower thoracic abnormality. Unremarkable spleen, kidneys, adre nal glands and liver. Distended gallbladder without cholelithiasis or wall thickening identified. No abdominal aortic aneurysm, bowel obstruction or bowel wall thickening identified. Lumbar spinal fusio n hardware. Acute pancreatitis redemonstrated. Intrahepatic and extrahepatic biliary ductal dilation is noted wit h common bile duct measuring up to 12 mm transversely. 1.4 cm segment of high-grade narrowing of the distal common bile duct just proximal to the ampulla on image 66 series 5. Tortuosity and dilation of the pancreatic duct redemonstrated measuring up to approximately 5 mm which appears to contain intra luminal filling defects/possible stones. Narrowing of the pancreatic duct at the level of the ampulla with probable distal obstructing stone on image 168 of series 501. IMPRESSION: 1. Acute pancreatitis redemonstrated. Tortuous pancreatic ductal dilation is similar to the 04/16/2024 study and there several apparent intraluminal pancreatic ductal stones. 2. Distended gallbladder without cholelithiasis or evidence of acute cholecystitis. 3. Dilated common bile duct with apparent high-grade narrowing/stricturing of the distal duct upstrea m to the ampulla. No choledocholithiasis identified. ACT 112: Negative or not required by law. The above report was generated using voice recognition software. It may contain grammatical, syntax o r spelling errors. Electronically signed by: Solitairo Yee M.D. 11/07/2024 2:22 PM
[2024-11-07] MEDS: MONTELUKAST SODIUM 10 MG TABLET PO SCH (20:14)
[2024-11-08 06:52] LABS: Basophils # (auto) 0.03 K/uL (0.00-0.20); Basophils % (auto) 0.3 %; Eosinophils # (auto) 0.16 K/uL (0.00-0.50); Eosinophils % (auto) 1.7 %; Hematocrit (blood only) 25.6 % (37.0-47.0); Hemoglobin 9.2 g/dl (12.0-16.0); Immature Granulocytes # (auto) 0.07 K/uL (0.01-0.20); Immature Granulocytes % (auto) 0.7 %; Lymphocytes # (auto) 2.13 K/uL (1.20-3.40); Lymphocytes % (auto) 22.1 %; Mean Corpuscular Hemoglobin 30.5 pg (25.0-34.0); Mean Corpuscular Hgb Conc 35.9 g/dL (32.0-36.0); Mean Corpuscular Volume 84.8 fL (80.0-100.0); Mean Platelet Volume 10.6 fL (9.4-12.4); Monocytes # (auto) 1.12 K/uL (0.11-0.59); Monocytes % (auto) 11.6 %; Neutrophils # (auto) 6.14 K/uL (1.40-6.50); Neutrophils % (auto) 63.6 %; Platelet Count 279 K/uL (130-400); RDW Coefficient of Variation 14.5 % (11.5-14.5); RDW Standard Deviation 44.5 fL (36.4-46.3); Red Blood Count 3.02 M/uL (4.20-5.40); White Blood Count 9.65 K/ul (4.8-10.8)
[2024-11-08 07:20] LABS: Albumin Level 3.1 gm/dl (3.4-5.0); BUN Creatinine Ratio 15.8 (10-20); Bilirubin,Total 0.3 mg/dl (0.2-1.0); Calcium 7.9 mg/dl (8.6-10.3); Creatinine Clr Calc Pharmacy 92.2 ml/min; Globulin 3.1 gm/dl (2.5-4.0); Potassium 3.4 mmol/L (3.5-5.1); Total Protein 6.2 gm/dl (6.0-8.3)
[2024-11-08] MEDS: POTASSIUM CHLORIDE CRTAB 20 MEQ TABCR PO STA (07:50)
--- NOTE | 2024-11-08 11:25 | Gastroenterology Progress Note ---
Date of Service November 08, 2024 Assessment & Plan (1) Pancreatitis: Plan: Patient feeling worse today. She finds she is not able to advance diet beyond liquids. - update lipase. - continue with pain control. - recommend cessation of alcohol use. - will discuss further with Dr. Rachel, further recommendations to follow. Admission and Anticipated Discharge Date Admission Date: November 06, 2024 Supervising Physician Co-Signing Physician Notes Pancreatitis. Alcohol related. Acute on chronic pancreatitis. Lipase mostly unchanged. Not uncommon scenario in alcoholic related pancreatitis. Patient's liver tests are not worsening. 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 There were no stones on MRCP. Expect this to stabilize and/or improve with resolution of this acute pancreatitis. 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 Subjective Patient tells me that she feels worse today. she finds she is unable to eat any solids and seems to be only tolerating liquids. solid foods seem to make pain worse. no nausea, vomiting, reflux. she has not moved her bowels since admission per patient. 11/08/24 hgb 9.2, hct 25.6, wbc 9.6, platelets 279. NA 135, K 3.4, LFTs wnl other than alk phos 155. Review of Systems Review of Systems: All systems reviewed & are unremarkable except as noted in HPI & below Physical Exam Constitutional: WD/WN, vitals as above Respiratory: normal respiratory effort, lungs clear to auscultation Cardiovascular: Rate/Rhythm: regular rate and regular rhythm Gastrointestinal (Abdomen): diffuse tenderness, no guarding, soft, normal bowel sounds. Psychiatric: Orientation: alert and oriented x 3 Affect: euthymic affect Results & Data Results & Data Vital Signs (Past 12 Hours) Vital Signs Temp Pulse Pulse Resp BP Pulse Ox O2 Del Method 11/08/24 09:27 86 11/08/24 08:19 97.9 F 82 18 158/90 H 95 Room Air 11/08/24 08:01 Room Air 11/08/24 02:47 97.9 F 93 H 18 172/90 H 96 Room Air Coding Level of Care Code 05352 SUB INP/OBS CARE 10/05MIN Diagnoses Pancreatitis K85.90
[2024-11-08] MEDS: hydrOXYzine HCl 25 MG TAB PO PRN (11:53)
--- NOTE | 2024-11-08 12:00 | Hospitalist Progress Note ---
Date of Service November 08, 2024 Assessment & Plan (1) Acute pancreatitis: (2) Urinary tract infection: (3) Chronic hyponatremia: (4) Alcohol abuse: (5) Spinal stenosis of lumbar region with neurogenic claudication: (6) Alcoholic peripheral neuropathy: (7) Major depression, chronic: (8) Essential hypertension: (9) COPD (chronic obstructive pulmonary disease): Plan Patient 54-year-old female with known history of recurrent alcohol induced pancreatitis who recently had Axios stent removed that had been placed for pancreatic cyst. Patient started drinking beers shortly after the stent was removed. Now presents with abdominal pain, nausea, vomiting. CT imaging co nsistent with pancreatitis. Mildly elevated lipase. Also laboratory evidence of a UTI. She is being treated for following conditions; Acute pancreatitis Alcohol use disorder Recent history of acute pancreatitis complicated by pseudocyst; Axios stent was placed in September and removed on October 23 CT abdomen pelvis on admission shows mild acute pancreatitis; mildly dilated CBD and mild intrahepatic biliary dilation. Pancreatic duct is also mildly dilated Total bilirubin, AST ALT within normal limits. ALP Slightly elevated MRCP showed acute pancreatitis; torturous pancreatic duct dilation similar to previous study and similar apparent intraluminal pancreatic ductal stone. Dilated common bile duct with apparent high-grade narrowing/stricture of the distal duct upstream to the ampulla. Pain medication optimized; will restart IV fluids with normal saline at 80 cc/h Results of the MRCP discussed with patient's outpatient GI provider (Dr. Garcia); recommended ERCP as outpatient in about 4 weeks time after acute inflammation settles down. His office will set up ERCP Acute UTI- ruled out Urinalysis suggestive of UTI Urine Cx- no growth Antibiotics discontinued Hyponatremia Likely due to poor solute intake Serum sodium of 127 on admission; improved to 135 Continue normal saline Hypertension Blood pressure likely elevated in setting of pain/illness Losartan increased to 100 mg once a day. continue amlodipine COPDcontinue home inhalers Mood disordercontinue home medication Full code DVT prophylaxis heparin Time spent evaluating patient, direct bedside care, chart review, placing orders, interpretation of diagnostic studies, discussion with consultants, patient, and family members, as well as other required patient management activities is 75minutes Please note the above document was generated using voice recognition software. It may contain grammatical, syntax or spelling errors. Any formal questions or concerns about the content, text or information contained within the body of this dictation should be directly addressed to the provider for clarification Admission and Anticipated Discharge Date Admission Date: November 06, 2024 Subjective Patient was seen twice in the morning. Patient reported significant abdominal pain in the a.m.; reports that the pain is not controlled with current medication. Reports low appetite as well I went over her MRCP results with her twice; she verbalized understanding of the results. She reports she takes tramadol for anxiety. Chart review was done; unable to find any recent prescription with tramadol. Review of Systems Review of Systems: All systems reviewed & are unremarkable except as noted in Subjective Physical Exam Physical Exam: Constitutional: Alert oriented x 3; not in distress. Respiratory: normal respiratory effort, lungs clear to auscultation, no wheeze, rales, rhonchi. Normal insp/exp effort, no accessory muscle use Cardiovascular: RRR, no murmur, no edema Vessels: no JVD or carotid bruit Chest: normal inspection of chest Abdomen: Tenderness in epigastric region Musculoskeletal: no cyanosis or clubbing, extremities motor strength 5/5 Skin: no rashes, warm and dry normal turgor Neurologic: PERRL, EOMI, accommodation nl, no face palsy, no dysarthria CN's II- XI intact bilaterally and moves all extremities Results & Data Results & Data Vital Signs (Past 12 Hours) Vital Signs Temp Pulse Pulse Resp BP Pulse Ox O2 Del Method 11/08/24 11:51 36.6 C 92 H 18 153/82 H 96 Room Air 11/08/24 09:27 86 11/08/24 08:19 36.6 C 82 18 158/90 H 95 Room Air 11/08/24 08:01 Room Air 11/08/24 02:47 36.6 C 93 H 18 172/90 H 96 Room Air (1) Acute pancreatitis Acute pancreatitis complication: unspecified Pancreatitis type: alcohol induced Qualified Code(s): K85.20 - Alcohol induced acute pancreatitis without necrosis or infection
[2024-11-08] MEDS ORDERED: LORazepam 0.5 MG TAB PO PRN (12:43)
[2024-11-08] MEDS: SODIUM CHLORIDE 0.9% 1,000 ML IV SCH (13:12)
[2024-11-08] MEDS: CALCIUM CARBONATE 500 MG CHEWABLE TAB PO ONE (17:48)
[2024-11-09] MEDS: GABAPENTIN 600 MG TAB PO SCH (01:31)
[2024-11-09 03:06] VITALS: O2SAT 96
[2024-11-09 07:14] LABS: Basophils # (auto) 0.06 K/uL (0.00-0.20); Basophils % (auto) 0.7 %; Eosinophils # (auto) 0.16 K/uL (0.00-0.50); Eosinophils % (auto) 1.8 %; Hematocrit (blood only) 31.2 % (37.0-47.0); Immature Granulocytes # (auto) 0.07 K/uL (0.01-0.20); Immature Granulocytes % (auto) 0.8 %; Lymphocytes # (auto) 2.17 K/uL (1.20-3.40); Lymphocytes % (auto) 24.4 %; Mean Corpuscular Hemoglobin 30.4 pg (25.0-34.0); Mean Corpuscular Hgb Conc 35.3 g/dL (32.0-36.0); Mean Corpuscular Volume 86.2 fL (80.0-100.0); Mean Platelet Volume 10.1 fL (9.4-12.4); Monocytes # (auto) 0.85 K/uL (0.11-0.59); Monocytes % (auto) 9.6 %; Neutrophils # (auto) 5.57 K/uL (1.40-6.50); Neutrophils % (auto) 62.7 %; Platelet Count 327 K/uL (130-400); RDW Coefficient of Variation 14.7 % (11.5-14.5); RDW Standard Deviation 46.4 fL (36.4-46.3); Red Blood Count 3.62 M/uL (4.20-5.40); White Blood Count 8.88 K/ul (4.8-10.8)
[2024-11-09 07:38] LABS: Albumin Level 3.6 gm/dl (3.4-5.0); Bilirubin,Total 0.3 mg/dl (0.2-1.0); Calcium 9.3 mg/dl (8.6-10.3); Creatinine Clr Calc Pharmacy 74.1 ml/min; Globulin 3.7 gm/dl (2.5-4.0); Potassium 4.9 mmol/L (3.5-5.1); Total Protein 7.3 gm/dl (6.0-8.3)
[2024-11-09 07:56] VITALS: TEMP 97.7
[2024-11-09] MEDS: oxyCODONE HCL IR 5 MG TAB (IMMEDIATE RELEASE) PO PRN (09:28)
[2024-11-09 11:06] VITALS: PULSE 93; RESP 18
[2024-11-09 11:54] VITALS: BP 163/103
--- NOTE | 2024-11-09 14:49 | Discharge Summary ---
Date of Service November 09, 2024 Admission HPI Per Admitting Provider Patient is a 54-year-old female with known history of alcohol induced pancreatitis. She subsequently had significant pancreatic cyst and had Axios stent placed for drainage and September. She just had the Axios stent removed on 10/23/2024. She thought that since the pancreatic cyst had resolved and the stent was removed it was okay to drink beer. She states that she was having 2-3 beers nightly since the stent was removed. About 5 days ago she started having some more abdominal pain. Seem to progress. She states that she limited her diet but was still drinking lots of water. Reported drinking a minimum of 40+ ounces of water a day. Over the last 24 hours started to get more nauseated having dry heaves. Today had rich emesis. She denies any blood in the emesis. She does states that since the Axios stents been removed she has been having some loose stools. Came to the emergency room due to the uncontrolled pain and now emesis. In the emergency room had mildly elevated lipase. CT imaging question some mild pancreatitis in the slightly more dilated pancreatic duct. Referred to our service for further evaluation. Time my evaluation patient was in moderate distress due to abdominal pain. She did admit to drinking 2-3 beers a day since she had her Axios stent removed, however, denies any beer or alcohol intake over the last 2 to 3 days. She denies any fever but thinks she may have had some chills. No blood in the emesis or her stool. She does have some increased urinary frequency but no dysuria. No swelling in her hands arms legs or feet. No new joint pains. Known to have COPD and uses her inhaler but no increased shortness of breath or wheezing. No chest pains. Admission Exam Per Admitting Provider onstitutional: Alert, ill in appearance, nontoxic, moderate distress due to pain HEENT: Mucous membranes moist. Sclera clear Neck: Soft, no adenopathy Lungs: Decreased breath sounds, prolonged expiratory phase, no wheezes CV: S1-S2, regular, tachycardic Abdomen: Soft, diffusely tender, mild guarding, no rigidity, no rebound, no masses Extremities: No significant edema Musculoskeletal: No significant joint tenderness Neuro: No focal deficits Psych: Cooperative, extremely anxious Principal Diagnosis Acute pancreatitis Alcohol use disorder Discharge Exam Constitutional: Alert oriented x 3; not in distress. Respiratory: normal respiratory effort, lungs clear to auscultation, no wheeze, rales, rhonchi. Normal insp/exp effort, no accessory muscle use Cardiovascular: RRR, no murmur, no edema Vessels: no JVD or carotid bruit Chest: normal inspection of chest Abdomen: Tenderness in epigastric region Musculoskeletal: no cyanosis or clubbing, extremities motor strength 5/5 Skin: no rashes, warm and dry normal turgor Neurologic: PERRL, EOMI, accommodation nl, no face palsy, no dysarthria CN's II- XI intact bilaterally and moves all extremities Discharge Data Allergies Allergy/AdvReac Type Severity Reaction Status Date / Time latex Allergy Intermediate ITCHY Verified 11/06/24 21:39 nickel Allergy Intermediate Rash Verified 11/06/24 21:39 tea tree Allergy Unknown Hives Verified 06/25/24 12:37 amoxicillin AdvReac Intermediate thrush Verified 11/06/24 21:39 lisinopril AdvReac Cough Verified 11/06/24 21:38 Consultations 11/06/24 20:41 ED Decision to Admit Stat 11/06/24 23:06 Consult Gastroenterology Routine Ordered Studies 11/06/24 17:24 CT Abd and Pelvis [CT abd pelvis IV con only] Stat 11/07/24 00:00 MR MRCP Routine Hospital Course (1) Acute pancreatitis: (2) Urinary tract infection: (3) Chronic hyponatremia: (4) Alcohol abuse: (5) Spinal stenosis of lumbar region with neurogenic claudication: (6) Alcoholic peripheral neuropathy: (7) Major depression, chronic: (8) Essential hypertension: (9) COPD (chronic obstructive pulmonary disease): Plan Patient 54-year-old female with known history of recurrent alcohol induced pancreatitis who recently had Axios stent removed that had been placed for pancreatic cyst. Patient started drinking beers shortly after the stent was removed. Now presents with abdominal pain, nausea, vomiting. CT imaging consistent with pancreatitis. Mildly elevated lipase. Also laboratory evidence of a UTI. She was being treated for following conditions; Acute pancreatitis Alcohol use disorder Recent history of acute pancreatitis complicated by pseudocyst; Axios stent was placed in September and removed on October 23 CT abdomen pelvis on admission shows mild acute pancreatitis; mildly dilated CBD and mild intrahepatic biliary dilation. Pancreatic duct is also mildly dilated Total bilirubin, AST ALT within normal limits. ALP Slightly elevated MRCP showed acute pancreatitis; torturous pancreatic duct dilation similar to previous study and similar apparent intraluminal pancreatic ductal stone. Dilated common bile duct with apparent high-grade narrowing/stricture of the distal duct upstream to the ampulla. Results of the MRCP discussed with patient's outpatient GI provider (Dr. Garcia); recommended ERCP as outpatient in about 4 weeks time after acute inflammation settles down. His office will set up ERCP.Patient reported that she has already received call from the clinic to set up ERCP as outpatient; She reports that she will give a call back to set it up. Reiterated importance of following up. Patient verbalized understanding of the instructions. During the hospitalization, patient was treated with IV hydration, pain medication. She was discharged home with instructions to follow-up with PCP. Please note the above document was generated using voice recognition software. It may contain grammatical, syntax or spelling errors. Any formal questions or concerns about the content, text or information contained within the body of this dictation should be directly addressed to the provider for clarification Total Time Total Time Spent Total Time Spent (In Minutes): 45 Total Time Includes: Examination of the Patient, Discharge Planning, Medication Reconciliation, Communication With Other Providers and Other Discharge Plan Discharge Items Patient Disposition: Home - Self-Care Reason For Visit: PANCREATITIS, UTI Discharge Diagnosis: Acute pancreatitis Alcohol use disorder Activity: Resume your previous activity Non-emergency contact: Primary Care Provider Call non-emergency contact if: you have any medication questions and your symptoms worsen Follow-up/Referrals: Myesha Cavanaugh MD [Primary Care Provider] - (Date & Time 11/13/2024 10:00 AM Provider: Myesha Cavanaugh MD [facility] ) Diet: Regular Addtl Attending Provider Instructions: You were admitted to the hospital due to acute pancreatitis. You are treated with IV hydration, pain meds during the hospitalization. MRCP done during the hospitalization showed pancreatic duct dilation with several apparent intraluminal pancreatic ductal stone as well as dilated common bile duct with high-grade narrowing/stricture of distal duct. This finding was discussed with Dr. Garcia; please go to outpatient appointment for ERCP. An appointment has been set up with your primary care doctor for follow-up for next week. Strongly advise you to do not drink alcohol as it can exacerbate the symptoms and cause repeat flareups. Pending Studies at Discharge: No Stand-Alone Forms: My [facility], Smoking Cessation Medications and DC Order Prescriptions: New oxycodone 5 mg tablet 5 mg PO BID PRN (Reason: pain) Qty: 20 0RF Continued trazodone 50 mg tablet 50 mg PO HS loratadine 10 mg tablet 10 mg PO QDL albuterol sulfate 90 mcg/actuation HFA aerosol inhaler 2 puff INHALATION Q4 PRN (Reason: Breath Or Wheezing) pregabalin 150 mg capsule 150 mg PO AMHS Dulera 200-5 mcg/actuation HFA aerosol inhaler 2 puff INHALATION BID omeprazole 20 mg capsule,delayed release(DR/EC) 20 mg PO BID duloxetine 60 mg capsule,delayed release(DR/EC) 60 mg PO QAM hydrocodone-acetaminophen 7.5-325 mg tablet 1 tab PO Q8 PRN (Reason: pain,severe) Trelegy Ellipta 100-62.5-25 mcg blister with device 1 ea INHALATION QAM fluoxetine 40 mg capsule 40 mg PO QAM Rx Instructions: TOTAL DOSE 60 MG--TAKES WITH 20 MG CAP. hydroxyzine HCl 50 mg tablet 50 mg PO Q6H PRN (Reason: ITCHING/ANXIETY) montelukast 10 mg tablet 10 mg PO HS fluoxetine 20 mg capsule 20 mg PO QAM Rx Instructions: TOTAL DOSE 60 MG--TAKES WITH 40 MG CAP. losartan 50 mg tablet 50 mg PO QAM Discharge Orders: Discharge Order (Routine); Ordered 11/09/24 Ordered By: Khanh Reddy Admission Data Admit Date/Time: 11/06/24 21:17 Attending Provider: Khanh Reddy Admit Provider: Fer Collins Primary Care Provider: Myesha Cavanaugh Other Providers: Fer Collins; Param Pathak Jr Other Interventions: Discharge Summary Assessment (RN) Last Done: 11/09/24 11:52
[2024-11-10] MEDS ORDERED: GABAPENTIN 600 MG TAB PO SCH (13:00)
[2024-11-12] MEDS ORDERED: BUPRENORPHINE 5 MCG/HR TDSY TD SCH (09:00)
== END 2024-11-09 12:57 | disposition home or self-care (01) | DRG 439 ==
LOC: ED 15:21 → 3N 21:17 → 2E 11-07 00:53

== ENCOUNTER 2025-05-05 11:02 | Inpatient (IN) ==
--- NOTE | 2025-05-05 11:58 | Emergency Department Note ---
Impression & Plan Pancreatitis, acute, Hypertension ED Provider Note Diagnosis: Pancreatitis Disposition: Admission CHIEF COMPLAINT: Abdominal pain HPI: Patient is a 55-year-old female with history of prior pancreatitis presenting with midepigastric abdominal pain. Patient states this feels similar to prior exacerbations of her pancreatitis. Patient states she has not needed to be hospitalized since the winter for pancreatitis. Patient states she has mild flares that she can relief with pain and reduced diet at home. Patient has not noticed any significant fevers. Patient states this weekend she went to a picnic and ate food that she was not used to as well as had 1-2 beers. Patient states that she has to be very cautious with what food she eats and that usually is what flares up her pancreatitis previously. Patient states she still does have a gallbladder. PAST MEDICAL HISTORY: See Below PAST SURGICAL HISTORY: See Below SOCIAL HISTORY: See Below HOME MEDICATIONS: See Below ALLERGIES: See Below VITALS: See Below PHYSICAL EXAMINATION: GENERAL: Well appearing, well nourished, NAD, non-toxic. EYE EXAM: Normal conjunctiva. OROPHARYNX: Moist mucus membranes. Grossly normal dentition. NECK: Supple, LUNGS: Clear to auscultation. Normal chest wall mechanics. HEART: NSR ABDOMEN: Abdomen soft, moderate tenderness midepigastric BACK: No CVA TTP. SKIN: No rashes and no bruising. UPPER EXTREMITIES: Upper extremities are grossly normal LOWER EXTREMITIES: Grossly normal, no edema. NEURO EXAM: A&O x3,, normal speech, moves all 4 extremities PSYCH: Cooperative MEDICAL DECISION MAKING: History obtained from: Patient ER Course: Patient 55-year-old female presenting with 2 to 3 days of midepigastric abdominal pain. Patient states this feels similar to prior episodes of pancreatitis. Patient has needed biliary stents previously. Patient has not had a flareup that required hospitalization since October of this previous year. Patient having nausea vomiting. Patient states that she ate food at a cookout and 1 or 2 alcoholic beverages this weekend and believes that flared up her symptoms. Patient today on blood work found to have an elevated lipase of 700. Patient CT scan of abdomen and pelvis shows inflammation of the pancreas without any change in biliary duct size. Patient given pain control with morphine and dose of Dilaudid. Patient during ER course was hypertensive and was given a dose of IV labetalol. Patient's EKG without signs of ischemia. Patient be admitted for further treatment and evaluation of her pancreatitis. Labs (independently interpreted) are significant for: Elevated lipase EKG interpretation (independently interpreted): Normal sinus rhythm no ST segment elevation or depression Medications given: Morphine, normal saline, Zofran Consultants: Hospitalist Chronic conditions affecting care: Pancreatitis Triage Nursing notes reviewed and agree them. Vital Signs: reviewed and remarkable for: no significant abnormalities Past Med/Surg History Problem List (Updated 05/05/25 @ 14:46 by Taz Barnett DO) Hypertension (Acute) Pancreatitis, acute (Acute) COPD (chronic obstructive pulmonary disease) Essential hypertension Major depression, chronic Alcoholic peripheral neuropathy Spinal stenosis of lumbar region with neurogenic claudication Acute pancreatitis (Acute) Hallucinations Alcoholic encephalopathy Visual disturbance Chronic hyponatremia HTN (hypertension) Chronic anemia Alcohol abuse Tobacco use GERD (gastroesophageal reflux disease) Moderate persistent asthma Depression Ataxia (Acute) Stroke-like symptom (Acute) Vancomycin-induced nephrotoxicity Right otitis media (Acute) PNA (pneumonia) (Acute) Acute bronchiolitis (Acute) Acute asthma exacerbation (Acute) Acute asthma exacerbation (Acute) Fibromyalgia (Chronic) Asthma (Chronic) Medical History (Updated 05/05/25 @ 14:46 by Taz Barnett DO) Pancreatitis History of renal dialysis due to overdose of vancomycin. 2019 Vancomycin-induced nephrotoxicity caused renal failure 2019 and required dialysis 3 times a week for one to two months Chronic back pain Depression GERD (gastroesophageal reflux disease) History of alcohol abuse Chronic anemia pt not aware Alcoholic encephalopathy hx Medical marijuana use HTN (hypertension) pt denies Fatty liver History of COVID-19 (2021) no hosp; resolved Hx: recurrent pneumonia states yearly issues w/ pneumonia or bronchitis last time ? 2022 Asthma controlled w/ daily inhaler use Fibromyalgia Cyst of pancreas Hx of acute pancreatitis Alcoholic cerebellar degeneration Surgical History Hx of tooth extraction History of esophagogastroduodenoscopy (EGD) Hx of tonsillectomy History of spinal surgery unsure what level Family History Other Asthma Cancer Social History Smoking Status: Current every day smoker Tobacco Type: Cigarettes Cigarettes Per Day: couple a day; Second Hand Exposure: No; Do You Dip or Chew Tobacco: No; Hx Alcohol Use: Yes Alcohol type: beer and hard liquor Alcohol Intake Frequency Comment: 5-6 daily Hx Substance Use: Yes Last Used Substance Other:: medical card Preferred Language: Sami Communication Ability: Effective [employer] Required: No Beliefs That Will Affect Care: None Current Living Situation: Significant Other Feels Safe at Home: Yes Assistive Devices: Cane, Walker and Wheelchair Allergies Allergies Allergy/AdvReac Type Severity Reaction Status Date / Time latex Allergy Intermediate ITCHY Verified 11/06/24 21:39 nickel Allergy Intermediate Rash Verified 11/06/24 21:39 tea tree Allergy Unknown Hives Verified 06/25/24 12:37 amoxicillin AdvReac Intermediate thrush Verified 11/06/24 21:39 lisinopril AdvReac Cough Verified 11/06/24 21:38 Home Meds Home Medications Medication Instructions Recorded Confirmed albuterol sulfate 90 mcg/actuation 2 puff inhalation Q4 PRN Breath Or 09/25/19 11/06/24 aerosol inhaler Wheezing loratadine 10 mg tablet 10 mg PO QDL 09/25/19 11/06/24 trazodone 50 mg tablet 50 mg PO HS 09/25/19 11/06/24 duloxetine 60 mg capsule,delayed 60 mg PO QAM 03/08/23 11/06/24 release mometasone-formoterol HFA 200 2 puff inhalation BID 03/08/23 11/06/24 mcg-5 mcg/actuation aerosol inhaler (Dulera) omeprazole 20 mg capsule,delayed 20 mg PO BID 03/08/23 11/06/24 release pregabalin 150 mg capsule 150 mg PO AMHS 03/08/23 11/06/24 fluoxetine 20 mg capsule 20 mg PO QAM 04/16/24 11/06/24 fluoxetine 40 mg capsule 40 mg PO QAM 04/16/24 11/06/24 hydroxyzine HCl 50 mg tablet 50 mg PO Q6H PRN ITCHING/ANXIETY 04/16/24 11/06/24 montelukast 10 mg tablet 10 mg PO HS 04/16/24 11/06/24 losartan 50 mg tablet 50 mg PO QAM 06/24/24 11/06/24 fluticasone fur. 100 mcg-umeclid 1 ea inhalation QA 11/06/24 11/06/24 62.5 mcg-vilant 25 mcg inhalat.powder (Trelegy Ellipta) hydrocodone 7.5 mg-acetaminophen 1 tab PO Q8 PRN pain,severe 11/06/24 11/06/24 325 mg tablet Previous Rx's Medication Instructions Recorded oxycodone 5 mg tablet 5 mg PO BID PRN pain #20 tabs 11/09/24 Results & Data (ED) Vital Signs Vital Signs - 24 hr 05/05/25 11:07 05/05/25 11:15 05/05/25 11:43 Temperature 36.3 C L Temperature Source Temporal Artery Scan Pulse Rate 116 H 100 H Pulse Rate [Right Finger] 109 H Respiratory Rate 20 17 15 Respiratory Effort / Characteristics Non-Labored Non-Labored Respiratory Depth Normal Normal Respiratory Pattern Regular Blood Pressure 140/83 Blood Pressure [Right Arm] Blood Pressure Mean 102 Blood Pressure Mean [Right Arm] Pulse Oximetry 98 98 99 Oxygen Delivery Method Room Air Room Air Room Air Sepsis Recent Fever Within 48 Hours No Sepsis New/Unexplained Change in Mental Status No Sepsis Action Taken by Nursing No Action Required 05/05/25 12:11 05/05/25 12:16 05/05/25 12:17 Temperature 36.5 C Temperature Source Oral Pulse Rate 107 H Pulse Rate [Right Finger] Respiratory Rate Respiratory Effort / Characteristics Respiratory Depth Respiratory Pattern Blood Pressure Blood Pressure [Right Arm] 134/104 H Blood Pressure Mean Blood Pressure Mean [Right Arm] 114 Pulse Oximetry Oxygen Delivery Method Sepsis Recent Fever Within 48 Hours Sepsis New/Unexplained Change in Mental Status Sepsis Action Taken by Nursing 05/05/25 13:11 05/05/25 13:56 05/05/25 13:58 Temperature Temperature Source Pulse Rate 97 H Pulse Rate [Right Finger] 107 H 105 H Respiratory Rate 20 24 Respiratory Effort / Characteristics Non-Labored Non-Labored Respiratory Depth Normal Normal Respiratory Pattern Regular Blood Pressure 206/120 H Blood Pressure [Right Arm] 196/129 H 206/120 H Blood Pressure Mean Blood Pressure Mean [Right Arm] 151 148 Pulse Oximetry 100 100 Oxygen Delivery Method Room Air Room Air Sepsis Recent Fever Within 48 Hours Sepsis New/Unexplained Change in Mental Status Sepsis Action Taken by Nursing 05/05/25 14:24 Temperature Temperature Source Pulse Rate 81 Pulse Rate [Right Finger] Respiratory Rate Respiratory Effort / Characteristics Respiratory Depth Respiratory Pattern Blood Pressure 185/98 H Blood Pressure [Right Arm] Blood Pressure Mean Blood Pressure Mean [Right Arm] Pulse Oximetry Oxygen Delivery Method Sepsis Recent Fever Within 48 Hours Sepsis New/Unexplained Change in Mental Status Sepsis Action Taken by Nursing Laboratory Data 05/05/25 11:01 05/05/25 11:01 Lab Results 05/05/25 05/05/25 Range/Units 11:01 Unknown WBC 15.19 H (4.8-10.8) K/ul RBC 5.00 (4.20-5.40) M/uL Hgb 15.1 (12.0-16.0) g/dl Hct 42.2 (37.0-47.0) % MCV 84.4 (80.0-100.0) fL MCH 30.2 (25.0-34.0) pg MCHC 35.8 (32.0-36.0) g/dL RDW Std Deviation 44.9 (36.4-46.3) fL RDW Coeff of Amos 14.7 H (11.5-14.5) % Plt Count 311 (130-400) K/uL MPV 10.1 (9.4-12.4) fL Immature Gran % (Auto) 0.6 % Neut % (Auto) 86.5 % Lymph % (Auto) 6.3 % [place] % (Auto) 5.8 % Eos % (Auto) 0.5 % Baso % (Auto) 0.3 % Neut # (Auto) 13.14 H (1.40-6.50) K/uL Lymph # (Auto) 0.96 L (1.20-3.40) K/uL [place] # (Auto) 0.88 H (0.11-0.59) K/uL Eos # (Auto) 0.08 (0.00-0.50) K/uL Baso # (Auto) 0.04 (0.00-0.20) K/uL Immature Gran # (Auto) 0.09 (0.01-0.20) K/uL Sodium 133 L (136-145) mmol/L Potassium 3.6 (3.5-5.1) mmol/L Chloride 96 L (98-107) mmol/L Carbon Dioxide 22 (21-32) mmol/L Anion Gap 15 H (3-11) BUN 13 (6-23) mg/dl Creatinine 0.95 (0.6-1.2) mg/dl Est Cr Clr Drug Dosing 51.0 ml/min eGFR 70.32 BUN/Creatinine Ratio 13.7 (10-20) Glucose 107 H (70-99(Fasting)) mg/dl Calcium 10.2 (8.6-10.3) mg/dl Total Bilirubin 0.8 (0.2-1.0) mg/dl AST 25 (13-39) U/L ALT 15 (7-52) U/L Alkaline Phosphatase 106 H (34-104) U/L Troponin I High Sens 10.9 (0-14) pg/ml Total Protein 8.2 (6.0-8.3) gm/dl Albumin 4.5 (3.4-5.0) gm/dl Globulin 3.7 (2.5-4.0) gm/dl Albumin/Globulin Ratio 1.2 (0.9-2) Lipase 796 H (11-82) U/L Urine Color Yellow Urine Appearance Clear (Clear) Urine pH 6.0 (4.5-7.5) Ur Specific [place] 1.011 (1.000-1.030) Urine Protein Trace H (Negative) Urine Glucose (UA) Negative (Negative) Urine Ketones 1+ H (Negative) Urine Blood Negative (Negative) Urine Nitrite Negative (Negative) Urine Bilirubin Negative (Negative) Urine Urobilinogen Negative (Negative) Ur Leukocyte Esterase Trace H (Negative) Urine WBC (Auto) 0-5 (0-5) /hpf Urine RBC (Auto) 0-2 (0-2) /hpf U Hyaline Cast (Auto) 3-5 H (0-2) /lpf U Epithel Cells (Auto) 0-2 (0-2) /hpf Urine Bacteria (Auto) None Seen (None Seen) Urine Comment Administered Medications Discontinued Medications Hydromorphone HCl (Hydromorphone Inj 1 Mg/Ml Syringe) 1 mg IV NOW STA Stop: 05/05/25 12:33 Last Admin: 05/05/25 12:42 Dose: 1 mg Documented By: REKHA Sodium Chloride (Nss) 1,000 mls @ 999 mls/hr IV .Q1H1M STA Stop: 05/05/25 12:33 Last Infusion: 05/05/25 13:10 Dose: Infused Documented By: umu Admin: 05/05/25 12:02 Dose: 999 mls/hr Documented By: umu Ioversol (Optiray 320 100ml) 92 ml IV ONCE ONE Stop: 05/05/25 13:42 Last Admin: 05/05/25 13:41 Dose: 92 ml Documented By: JANA Labetalol HCl (Labetalol Hcl Iv 5 Mg/Ml 20ml) 10 mg IV NOW STA Stop: 05/05/25 13:20 Last Admin: 05/05/25 13:58 Dose: 10 mg Documented By: umu Morphine Sulfate (Morphine Sulfate 4 Mg/Ml 1 Ml Carp\Vial) 4 mg IV NOW STA Stop: 05/05/25 11:34 Last Admin: 05/05/25 12:02 Dose: 4 mg Documented By: umu Ondansetron HCl (Ondansetron Inj 2 Mg/Ml 2 Ml Vial) 4 mg IV NOW STA Stop: 05/05/25 11:34 Last Admin: 05/05/25 12:02 Dose: 4 mg Documented By: umu Imaging Data Radiologist's Impression: Abdomen/Pelvis CT 05/05/25 11:34 CT SCAN OF THE ABDOMEN AND PELVIS WITH IV CONTRAST CLINICAL HISTORY: Epigastric pain. History of pancreatitis. COMPARISON STUDY: CT of the abdomen and pelvis November 06, 2024 and MRCP November 07, 2024. TECHNIQUE: Following the IV administration of 92 cc of Optiray 320, CT scan of the abdomen and pelvis is performed from the lung bases to the proximal femora. Images are reviewed in the axial, sagittal, and coronal planes. IV contrast was administered without complication. A dose lowering technique was utilized adhering to the principles of ALARA. CT DOSE: 410.33 mGy.cm FINDINGS: Visualized portions of the lung bases are unremarkable. No pneumatosis, free air or portal gas is present. The stomach is mildly distended and fluid-filled. Mild biliary ductal dilatation is similar to slightly decreased since CT and MRI. Common bile duct measures 1 cm in caliber. Mild to moderate peripancreatic fluid is present. No well-defined peripancreatic fluid collections are present. There is no evidence for gland necrosis. There is mild glandular atrophy involving the neck, body and tail. Pancreatic ductal dilatation has decreased when compared to prior CT. Major vasculature is patent although there is narrowing of the portosplenic confluence. Spleen, adrenal glands and kidneys are unremarkable. There is no hydronephrosis. No evidence for a bowel obstruction. The appendix is normal. The gallbladder is mildly distended. This is unchanged. There is no pericholecystic infiltration. Postoperative findings within the spine are incidentally noted IMPRESSION: 1. Findings consistent with recurrent acute pancreatitis. Mild to moderate peripancreatic fluid. No evidence for gland necrosis. No well-defined peripancreatic fluid collections. 2. Stable to slight decrease in biliary ductal dilatation. Interval decrease in pancreatic ductal dilatation. 3. No change in mild gallbladder distention without pericholecystic infiltration. No convincing evidence for cholecystitis. ACT 112: Negative or not required by law. Electronically signed by: Len Chappell M.D. 05/05/2025 1:59 PM Discharge Plan Visit Data Chief Complaint: Abdominal Pain Stated Complaint: PANCREATITIS - VOMITING EXTREME PAIN ED Provider: Taz Barnett Discharge Problem: Pancreatitis, acute, Hypertension Condition: Fair Forms Stand Alone Forms: [facility] wali Prescriptions Prescriptions: No Action trazodone 50 mg tablet 50 mg PO HS loratadine 10 mg tablet 10 mg PO QDL albuterol sulfate 90 mcg/actuation HFA aerosol inhaler 2 puff INHALATION Q4 PRN (Reason: Breath Or Wheezing) pregabalin 150 mg capsule 150 mg PO AMHS Dulera 200-5 mcg/actuation HFA aerosol inhaler 2 puff INHALATION BID omeprazole 20 mg capsule,delayed release(DR/EC) 20 mg PO BID duloxetine 60 mg capsule,delayed release(DR/EC) 60 mg PO QAM hydrocodone-acetaminophen 7.5-325 mg tablet 1 tab PO Q8 PRN (Reason: pain,severe) Trelegy Ellipta 100-62.5-25 mcg blister with device 1 ea INHALATION QAM oxycodone 5 mg tablet 5 mg PO BID PRN (Reason: pain) Qty: 20 0RF fluoxetine 40 mg capsule 40 mg PO QAM Rx Instructions: TOTAL DOSE 60 MG--TAKES WITH 20 MG CAP. hydroxyzine HCl 50 mg tablet 50 mg PO Q6H PRN (Reason: ITCHING/ANXIETY) montelukast 10 mg tablet 10 mg PO HS fluoxetine 20 mg capsule 20 mg PO QAM Rx Instructions: TOTAL DOSE 60 MG--TAKES WITH 40 MG CAP. losartan 50 mg tablet 50 mg PO QAM Referrals Referrals: Myesha Cavanaugh MD [Primary Care Provider] -
[2025-05-05] MEDS: ONDANSETRON INJ 2 MG/ML 2 ML VIAL IV STA (12:02)
[2025-05-05] MEDS: MoRPHine SULFATE 4 MG/ML 1 ML CARP\\VIAL IV STA (12:02)
[2025-05-05] MEDS: SODIUM CHLORIDE 0.9% 1,000 ML IV STA (12:02)
[2025-05-05 12:12] LABS: Hematocrit (blood only) 42.2 % (37.0-47.0); Hemoglobin 15.1 g/dl (12.0-16.0); Immature Granulocytes # (auto) 0.09 K/uL (0.01-0.20); Immature Granulocytes % (auto) 0.6 %; Mean Corpuscular Hemoglobin 30.2 pg (25.0-34.0); Mean Corpuscular Volume 84.4 fL (80.0-100.0); Platelet Count 311 K/uL (130-400); RDW Standard Deviation 44.9 fL (36.4-46.3); Red Blood Count 5.00 M/uL (4.20-5.40); White Blood Count 15.19 K/ul (4.8-10.8)
[2025-05-05 12:32] LABS: Anion Gap 15.0 (3-11); Blood Urea Nitrogen 13.0 mg/dl (6-23); Calcium 10.2 mg/dl (8.6-10.3); Carbon Dioxide 22.0 mmol/L (21-32); Chloride 96.0 mmol/L (98-107); Creatinine Clr Calc Pharmacy 51.0 ml/min; Glucose 107.0 mg/dl (70-99(Fasting)); Potassium 3.6 mmol/L (3.5-5.1); Sodium 133.0 mmol/L (136-145)
[2025-05-05] MEDS: HYDROmorphone INJ 1 MG/ML SYRINGE IV STA ×2 (12:42→15:07)
[2025-05-05 12:57] LABS: Alanine Aminotransferase 15.0 U/L (7-52); Albumin Globulin Ratio 1.2 (0.9-2); Alkaline Phosphatase 106.0 U/L (34-104); Bilirubin,Total 0.8 mg/dl (0.2-1.0); Globulin 3.7 gm/dl (2.5-4.0); Lipase 796.0 U/L (11-82); Total Protein 8.2 gm/dl (6.0-8.3)
[2025-05-05] MEDS: OPTIRAY 320 100ml IV ONE (13:41)
[2025-05-05] MEDS: LABETALOL HCL IV 5 MG/ML 20ML IV STA ×2 (13:58→16:06)
--- NOTE | 2025-05-05 14:00 | CT Scan Report ---
CT SCAN OF THE ABDOMEN AND PELVIS WITH IV CONTRAST CLINICAL HISTORY: Epigastric pain. History of pancreatitis. COMPARISON STUDY: CT of the abdomen and pelvis November 06, 2024 and MRCP November 07, 2024. TECHNIQUE: Following the IV administration of 92 cc of Optiray 320, CT scan of the abdomen and pelvi s is performed from the lung bases to the proximal femora. Images are reviewed in the axial, sagittal , and coronal planes. IV contrast was administered without complication. A dose lowering technique wa s utilized adhering to the principles of ALARA. CT DOSE: 410.33 mGy.cm FINDINGS: Visualized portions of the lung bases are unremarkable. No pneumatosis, free air or portal gas is present. The stomach is mildly distended and fluid-filled. Mild biliary ductal dilatation is s imilar to slightly decreased since CT and MRI. Common bile duct measures 1 cm in caliber. Mild to mod erate peripancreatic fluid is present. No well-defined peripancreatic fluid collections are present. There is no evidence for gland necrosis. There is mild glandular atrophy involving the neck, body and tail. Pancreatic ductal dilatation has decreased when compared to prior CT. Major vasculature is pat ent although there is narrowing of the portosplenic confluence. Spleen, adrenal glands and kidneys ar e unremarkable. There is no hydronephrosis. No evidence for a bowel obstruction. The appendix is norm al. The gallbladder is mildly distended. This is unchanged. There is no pericholecystic infiltration. Postoperative findings within the spine are incidentally noted IMPRESSION: 1. Findings consistent with recurrent acute pancreatitis. Mild to moderate peripancreatic fluid. No e vidence for gland necrosis. No well-defined peripancreatic fluid collections. 2. Stable to slight decrease in biliary ductal dilatation. Interval decrease in pancreatic ductal dil atation. 3. No change in mild gallbladder distention without pericholecystic infiltration. No convincing evide nce for cholecystitis. ACT 112: Negative or not required by law. Electronically signed by: Len Chappell M.D. 05/05/2025 1:59 PM
[2025-05-05 14:39] LABS: Appearance Urine Clear (Clear); Bacteria Urine Automated None Seen (None Seen); Epithelial Cell Urine Auto 0-2 /hpf (0-2); Glucose Urine UA Negative (Negative); RBC Urine Automated 0-2 /hpf (0-2); WBC Urine Automated 0-5 /hpf (0-5)
--- NOTE | 2025-05-05 15:59 | History & Physical Report ---
<Statement entered by Eduard More DO - 05/05/25 18:47> #Acute pancreatitis -Fullfills 3/3 diagnostic criteria for acute pancreatitis. -History of same. s/p CBD stent -Etiology: alcohol. endorsed drinking multiple alcoholic beverages prior to onset -CT imaging, labs not suggestive of stone/obstructive etiology Plan -NPO. Advance diet as tolerated -Moderate IVF with LR for 24 hours -Pain control will be difficult as she is opioid tolerant -Continuous pulse ox while on dilaudid Date of Service May 05, 2025 Assessment & Plan (1) Pancreatitis, acute: Plan: Patient is a 55 year old F with a past medical history of chronic pancreatitis, spinal stenosis with chronic back pain and opioid dependence, asthma, COPD, Metz's esoph, depression, fibromyalgia, microcytic anemia presenting with severe abdominal pain. Symptoms began 2 days ago following a family event when she ate fatty foods and consumed alcohol. Pain is 10/10 epigastric with radiation to the back, reports the pain "takes breath away". Minimal food and fluid intake in the past 2 years, but is still urinating okay. Has nausea and vomiting, denies diarrhea. Reports having a fever yesterday that broke without treatment. #Acute on chronic Pancreatitis #GERD * Admit to [facility] for further management * CT abdomen/pelvis w/ contrast showing recurrent acute pancreatitis. Mild to moderate peripancreatic fluid; Stable to slight decrease in biliary ductal dil atation; No convincing evidence for cholecystitis. * Severe pain w/o relief from Morphine 4mg/ Dilaudid 1 mg; hx Opioid dependence-->will start Toradol for mod pain, Hydromorphone 1 mg for severe pain * NPO; 1L NSS given in ED-> will start LR 200 ml/hr x 24 hours * Continue home PPI for h/o Metz's #Hypertension * BP's initially ok, then 200's/100's in ED; Labetolol 10mg given, then increased to 20 mg; suspect HTN pain related with poss med nonadherence at home * Poor historian with home BP meds, per external chart review, patient on losartan 50 mg daily; losartan x 1 given in ED and resume daily dosing tomorrow * Hydralazine prn ordered for SBP >180 * Trend BP's #COPD #Asthma * NAD here * Continue home Ellipta * Albuterol as needed Q6H for SOB/wheeze #Depression * Continue home psych meds DVT Ppx: SCDs Code status: Full PCP: Dr. Cavanaugh Dispo: Admit for further management Patient seen in collaboration with Dr. More. Please see addendum.I spent a total of 65 minutes coordinating, documenting and providing care for this patient excluding time spent in the performance of separately billed services or time spent by another provider/QHP. (2) Hypertension: (3) COPD (chronic obstructive pulmonary disease): (4) Major depression, chronic: (5) GERD (gastroesophageal reflux disease): History of Present Illness Primary Care Provider: Myesha Cavanaugh MD Patient is a 55 year old F with a past medical history of chronic pancreatitis, spinal stenosis with chronic back pain and opioid dependence, asthma, COPD, Metz's esoph, depression, fibromyalgia, microcytic anemia presenting with severe abdominal pain. Symptoms began 2 days ago following a family event when she ate fatty foods and consumed alcohol. Pain is 10/10 epigastric with radiation to the back, reports the pain "takes breath away". Minimal food and fluid intake in the past 2 years, but is still urinating okay. Has nausea and vomiting, denies diarrhea. Reports having a fever yesterday that broke without treatment. Denies weight loss, weakness, headache, cognitive changes, vision/hearing changes, shortness of breath, chest pain, swelling, urinary symptoms, numbness, tingling, ambulation difficulty, recent illnesses. In the emergency department, patient was initially hemodynamically stable and afebrile. WBC elevated 15 with no evidence of sepsis. Lipase 796. CT abdomen/pelvis with contrast showed recurrent acute pancreatitis without evidence of necrosis. No well-defined peripancreatic fluid collections; Stable to slight decrease in biliary ductal dilatation. Interval decrease in pancreatic ductal dilatation; No change in mild gallbladder distention without pericholecystic infiltration; No convincing evidence for cholecystitis. 1 L NSS given. Morphine 4mg x1 and Hydromorphone 1 mg x 1 given in the ED with only minimal decrease in pain. Additional Hydromorphone given with no responses ~1 hour post administration. Toradol was then given x 1. Patient has a history of opioid dependence and takes Percocet regularly, nearly daily at home for chronic LBB. Also hypertensive in the ED, possibly pain related, although poor historian with medications regularly taken at home. BP's 200's/120's. Labetalol 10 mg x 1 given with a slight response, then rebounded to 195/134. Additional Labetalol was then given. EKG showing sinus rhythm with vent rate 87 bpm, QTc 442. History obtained primarily from the patient and via hospitalization record. The patient's family was at the bedside and assisted with history of present illness. External chart review obtained from [employer]. Allergies Allergy/AdvReac Type Severity Reaction Status Date / Time latex Allergy Intermediate ITCHY Verified 05/05/25 15:20 nickel Allergy Intermediate Rash Verified 05/05/25 15:20 tea tree Allergy Unknown Hives Verified 05/05/25 15:20 amoxicillin AdvReac Intermediate thrush Verified 05/05/25 15:20 lisinopril AdvReac Cough Verified 05/05/25 15:20 Home Medications Medication Instructions Recorded Confirmed Type albuterol sulfate 90 mcg/actuation 2 puff inhalation Q4 PRN Breath Or 09/25/19 05/05/25 History aerosol inhaler Wheezing loratadine 10 mg tablet 10 mg PO QDL 09/25/19 05/05/25 History trazodone 50 mg tablet 50 mg PO HS 09/25/19 05/05/25 History duloxetine 60 mg capsule,delayed 60 mg PO QAM 03/08/23 05/05/25 History release mometasone-formoterol HFA 200 2 puff inhalation BID 03/08/23 05/05/25 History mcg-5 mcg/actuation aerosol inhaler (Dulera) omeprazole 20 mg capsule,delayed 20 mg PO DAILY 03/08/23 05/05/25 History release pregabalin 150 mg capsule 150 mg PO AMHS 03/08/23 05/05/25 History fluoxetine 20 mg capsule 20 mg PO QAM 04/16/24 05/05/25 History fluoxetine 40 mg capsule 40 mg PO QAM 04/16/24 05/05/25 History hydroxyzine HCl 50 mg tablet 50 mg PO Q6H PRN ITCHING/ANXIETY 04/16/24 05/05/25 History montelukast 10 mg tablet 10 mg PO HS 04/16/24 05/05/25 History losartan 50 mg tablet 50 mg PO QAM 06/24/24 05/05/25 History fluticasone fur. 100 mcg-umeclid 1 ea inhalation QAM 11/06/24 05/05/25 History 62.5 mcg-vilant 25 mcg inhalat.powder (Trelegy Ellipta) hydrocodone 7.5 mg-acetaminophen 1 tab PO Q8 PRN pain,severe 11/06/24 05/05/25 History 325 mg tablet magnesium 250 mg tablet 250 mg PO DAILY 05/05/25 05/05/25 History methocarbamol 500 mg tablet 500 mg PO QID 05/05/25 05/05/25 History multivitamin 1 tab PO DAILY 05/05/25 05/05/25 History pantoprazole 40 mg tablet,delayed 40 mg PO DAILY 05/05/25 05/05/25 History release Past Med/Surg History Problem List Hypertension (Acute) Pancreatitis, acute (Acute) COPD (chronic obstructive pulmonary disease) Essential hypertension Major depression, chronic Alcoholic peripheral neuropathy Spinal stenosis of lumbar region with neurogenic claudication Acute pancreatitis (Acute) Hallucinations Alcoholic encephalopathy Visual disturbance Chronic hyponatremia HTN (hypertension) Chronic anemia Alcohol abuse Tobacco use GERD (gastroesophageal reflux disease) Moderate persistent asthma Depression Ataxia (Acute) Stroke-like symptom (Acute) Vancomycin-induced nephrotoxicity Right otitis media (Acute) PNA (pneumonia) (Acute) Acute bronchiolitis (Acute) Acute asthma exacerbation (Acute) Acute asthma exacerbation (Acute) Fibromyalgia (Chronic) Asthma (Chronic) Medical History Pancreatitis History of renal dialysis due to overdose of vancomycin. 2019 Vancomycin-induced nephrotoxicity caused renal failure 2019 and required dialysis 3 times a week for one to two months Chronic back pain Depression GERD (gastroesophageal reflux disease) History of alcohol abuse Chronic anemia pt not aware Alcoholic encephalopathy hx Medical marijuana use HTN (hypertension) pt denies Fatty liver History of COVID-19 (2021) no hosp; resolved Hx: recurrent pneumonia states yearly issues w/ pneumonia or bronchitis last time ? 2022 Asthma controlled w/ daily inhaler use Fibromyalgia Cyst of pancreas Hx of acute pancreatitis Alcoholic cerebellar degeneration Surgical History Hx of tooth extraction History of esophagogastroduodenoscopy (EGD) Hx of tonsillectomy History of spinal surgery unsure what level Family History Other Asthma Cancer Social History Smoking Status: Current every day smoker Tobacco Type: Cigarettes Cigarettes Per Day: 1 PPD; Second Hand Exposure: No; Do You Dip or Chew Tobacco: No; Hx Alcohol Use: Yes Alcohol type: beer Alcohol Intake Frequency Comment: 5-6 daily Hx Substance Use: No Preferred Language: Malay Communication Ability: Effective [employer] Required: No Beliefs That Will Affect Care: None Current Living Situation: Significant Other Feels Safe at Home: Yes Assistive Devices: Cane and Glasses Review of Systems Review of Systems: All systems reviewed & are unremarkable except as noted in HPI & below Physical Exam Physical Exam: VITALS: Reviewed. WEIGHT/BMI reviewed. GEN: Healthy appearing, well-developed, NAD. PSYCH: Good Judgment. AOx4. Normal memory, mood, and affect. HEENT -Head: NC/AT; -Eyes: PERRL, EOMI. No discharge or redn ess; -Ears: External ears are normal. -Nose: Normal nares. -Mouth and throat: Dry mouth. Normal gum s, mucosa, palate,. Good dentition. NECK: Supple, with no masses. CV: RRR, no m/r/g. No peripheral swelling. Perfusion ok LUNGS: CTAB, no w/r/c. ABD: Soft, NT/ND, NBS, no masses or organomegaly. : N/A SKIN: Warm, well perfused. No skin rashes or abnormal lesions. MSK: No deformities, Normal gait. EXT: No clubbing, cyanosis, or edema. NEURO: Ambulating with no limitations. Normal muscle strength and tone. No focal deficits. Results & Data Results & Data Vital Signs (Past 12 Hours) Vital Signs Temp Pulse Pulse Resp BP BP Pulse Ox 05/05/25 15:00 95 H 24 197/139 H 98 05/05/25 14:24 81 185/98 H 05/05/25 13:58 97 H 206/120 H 05/05/25 13:56 105 H 24 206/120 H 100 05/05/25 13:11 107 H 20 196/129 H 100 05/05/25 12:17 134/104 H 05/05/25 12:16 36.5 C 05/05/25 12:11 107 H 05/05/25 11:43 100 H 15 99 05/05/25 11:15 109 H 17 98 05/05/25 11:07 36.3 C L 116 H 20 140/83 98 O2 Del Method 05/05/25 15:00 Room Air 05/05/25 14:24 05/05/25 13:58 05/05/25 13:56 Room Air 05/05/25 13:11 Room Air 05/05/25 12:17 05/05/25 12:16 05/05/25 12:11 05/05/25 11:43 Room Air 05/05/25 11:15 Room Air 05/05/25 11:07 Room Air Laboratory Results Short CBC 05/05/25 Range/Units 11:01 WBC 15.19 H (4.8-10.8) K/ul Hgb 15.1 (12.0-16.0) g/dl Hct 42.2 (37.0-47.0) % Plt Count 311 (130-400) K/uL BMP 05/05/25 11:01 Sodium 133 L Potassium 3.6 Chloride 96 L Carbon Dioxide 22 BUN 13 Creatinine 0.95 Glucose 107 H Calcium 10.2 Liver Function 05/05/25 Range/Units 11:01 Total Bilirubin 0.8 (0.2-1.0) mg/dl AST 25 (13-39) U/L ALT 15 (7-52) U/L Alkaline Phosphatase 106 H (34-104) U/L Albumin 4.5 (3.4-5.0) gm/dl Urine 05/05/25 Range/Units Unknown Urine Color Yellow Urine Appearance Clear (Clear) Urine pH 6.0 (4.5-7.5) Ur Specific [place] 1.011 (1.000-1.030) Urine Protein Trace H (Negative) Urine Glucose (UA) Negative (Negative) Diagnostic Findings Abdomen/Pelvis CT 05/05/25 11:34 CT SCAN OF THE ABDOMEN AND PELVIS WITH IV CONTRAST CLINICAL HISTORY: Epigastric pain. History of pancreatitis. COMPARISON STUDY: CT of the abdomen and pelvis November 06, 2024 and MRCP November 07, 2024. TECHNIQUE: Following the IV administration of 92 cc of Optiray 320, CT scan of the abdomen and pelvis is performed from the lung bases to the proximal femora. Images are reviewed in the axial, sagittal, and coronal planes. IV contrast was administered without complication. A dose lowering technique was utilized adhering to the principles of ALARA. CT DOSE: 410.33 mGy.cm FINDINGS: Visualized portions of the lung bases are unremarkable. No pneumatosis, free air or portal gas is present. The stomach is mildly distended and fluid-filled. Mild biliary ductal dilatation is similar to slightly decreased since CT and MRI. Common bile duct measures 1 cm in caliber. Mild to moderate peripancreatic fluid is present. No well-defined peripancreatic fluid collections are present. There is no evidence for gland necrosis. There is mild glandular atrophy involving the neck, body and tail. Pancreatic ductal dilatation has decreased when compared to prior CT. Major vasculature is patent although there is narrowing of the portosplenic confluence. Spleen, adrenal glands and kidneys are unremarkable. There is no hydronephrosis. No evidence for a bowel obstruction. The appendix is normal. The gallbladder is mildly distended. This is unchanged. There is no pericholecystic infiltration. Postoperative findings within the spine are incidentally noted IMPRESSION: 1. Findings consistent with recurrent acute pancreatitis. Mild to moderate peripancreatic fluid. No evidence for gland necrosis. No well-defined peripancreatic fluid collections. 2. Stable to slight decrease in biliary ductal dilatation. Interval decrease in pancreatic ductal dilatation. 3. No change in mild gallbladder distention without pericholecystic infiltration. No convincing evidence for cholecystitis. ACT 112: Negative or not required by law. Electronically signed by: Len Chappell M.D. 05/05/2025 1:59 PM Code Status & VTE Plan VTE Prophylaxis Plan VTE Prophylaxis will be ordered: Yes
[2025-05-05] MEDS: KETOROLAC TROMETHAMINE 15 MG/ML VIAL IV ONE (16:21)
[2025-05-05] MEDS ORDERED: ALUMINUM/MAGNESIUM SUSP 30 ML UDC PO PRN (17:29)
[2025-05-05] MEDS ORDERED: POLYETHYLENE (MIRALAX) 17 GM PACK PO PRN (17:29)
[2025-05-05] MEDS ORDERED: ALBUTEROL 0.083% NEBU SOLN 3 ML VIAL NEB PRN (17:29)
[2025-05-05] MEDS: LOSARTAN POTASSIUM 50 MG TAB PO STA (17:40)
[2025-05-05] MEDS: LACTATED RINGER'S 500 ML IV SCH (17:44)
[2025-05-05] MEDS: HYDROmorphone INJ 1 MG/ML SYRINGE IV PRN (18:22)
[2025-05-05] MEDS: NICOTINE 14 MG/24 HR PATCH TD SCH (18:22)
[2025-05-05] MEDS: PREGABALIN 150 MG CAP PO SCH (20:28)
[2025-05-05] MEDS: KETOROLAC TROMETHAMINE 15 MG/ML VIAL IV PRN (20:28)
--- NOTE | 2025-05-06 06:42 | Electrocardiogram Report ---
Test Reason : Blood Pressure : */* mmHG Vent. Rate : 87 BPM Atrial Rate : 87 BPM P-R Int : 150 ms QRS Dur : 76 ms QT Int : 368 ms P-R-T Axes : 17 39 30 degrees QTcB Int : 442 ms Sinus rhythm Premature atrial complexes Otherwise normal ECG When compared with ECG of 16-Apr-2024 18:24, Premature atrial complexes are now Present Confirmed by Ta Resendez ([id number]) on 05/06/2025 6:41:59 AM Referred By: REFERRED SELF Confirmed By: Ta Resendez
[2025-05-06 07:06] LABS: Hematocrit (blood only) 37.8 % (37.0-47.0); Hemoglobin 13.7 g/dl (12.0-16.0); Mean Corpuscular Hemoglobin 30.4 pg (25.0-34.0); Mean Corpuscular Volume 84.0 fL (80.0-100.0); Platelet Count 272 K/uL (130-400); RDW Standard Deviation 44.7 fL (36.4-46.3); Red Blood Count 4.50 M/uL (4.20-5.40); White Blood Count 13.00 K/ul (4.8-10.8)
[2025-05-06 07:21] LABS: Anion Gap 11.0 (3-11); Blood Urea Nitrogen 10.0 mg/dl (6-23); Calcium 9.4 mg/dl (8.6-10.3); Carbon Dioxide 25.0 mmol/L (21-32); Chloride 98.0 mmol/L (98-107); Creatinine Clr Calc Pharmacy 62.8 ml/min; Glucose 80.0 mg/dl (70-99(Fasting)); Potassium 3.6 mmol/L (3.5-5.1); Sodium 134.0 mmol/L (136-145)
[2025-05-06 07:22] LABS: Alanine Aminotransferase 13.0 U/L (7-52); Albumin Globulin Ratio 1.2 (0.9-2); Alkaline Phosphatase 93.0 U/L (34-104); Bilirubin,Total 0.7 mg/dl (0.2-1.0); Cholesterol 219.0 mg/dl (0-200); Globulin 3.4 gm/dl (2.5-4.0); HDL Cholesterol 112.0 mg/dl; Magnesium 1.4 mg/dl (1.7-2.4); Total Protein 7.4 gm/dl (6.0-8.3); Triglycerides 86.0 mg/dl (0-150)
[2025-05-06 07:42] LABS: Lipase 777.0 U/L (11-82)
[2025-05-06] MEDS: REMOVE NICODERM PATCH SCH (07:46)
[2025-05-06] MEDS: FLUTICASONE FUROATE 100MCG 14 PUFFS/INHALER INH SCH (07:46)
[2025-05-06] MEDS: LOSARTAN POTASSIUM 50 MG TAB PO SCH (07:47)
[2025-05-06] MEDS: UMECLIDINIUM/VILANTEROL 62.5/25MCG 7 PUFFS/INHALER INH SCH (07:48)
[2025-05-06] MEDS: MULTIVITAMIN TAB PO SCH (07:48)
[2025-05-06] MEDS: ONDANSETRON INJ 2 MG/ML 2 ML VIAL IV PRN (07:52)
[2025-05-06] MEDS ORDERED: NON-FORMULARY MEDICATION (Fluticasone-Umeclidin-Vilanter [Trelegy Ellipta] 100-62.5-25 mcg INH SCH (09:00)
[2025-05-06] MEDS: MAGNESIUM SULFATE / D5W 1 GM/100 ML BAG IV SCH (09:02)
[2025-05-06] MEDS: MAGNESIUM HYDROXIDE SUSP 30 ML UDC PO PRN (09:09)
--- NOTE | 2025-05-06 13:38 | Hospitalist Progress Note ---
Date of Service May 06, 2025 Assessment & Plan (1) Pancreatitis, acute: Plan: Patient is a 55 year old F with a past medical history of chronic pancreatitis, spinal stenosis with chronic back pain and opioid dependence, asthma, COPD, Metz's esoph, depression, fibromyalgia, microcytic anemia presenting with severe abdominal pain. Symptoms began 2 days ago following a family event when she ate fatty foods and consumed alcohol. Pain is 10/10 epigastric with radiation to the back, reports the pain "takes breath away". Minimal food and fluid intake in the past 2 years, but is still urinating okay. Has nausea and vomiting, denies diarrhea. Reports having a fever yesterday that broke without treatment. #Acute on chronic Pancreatitis #GERD Likely secondary to use of alcohol * CT abdomen/pelvis w/ contrast showing recurrent acute pancreatitis. Mild to moderate peripancreatic fluid; Stable to slight decrease in biliary ductal dilatation; No convincing evidence for cholecystitis. * Severe pain w/o relief from Morphine 4mg/ Dilaudid 1 mg; hx Opioid dependence-->will start Toradol for mod pain, Hydromorphone 1 mg for severe pain * NPO; 1L NSS and will be continued. Symptomatic medication for pain and nausea * Continue home PPI for h/o Metz's * Clinically looking better and does not have any more vomiting and pain seems to be decreasing * strongly advised to quit drinking #Hypertension * BP's initially ok, then 200's/100's in ED; Labetolol 10mg given, then increased to 20 mg; suspect HTN pain related with poss med nonadherence at home * Poor historian with home BP meds, per external chart review, patient on losartan 50 mg daily; losartan x 1 given in ED and resume daily dosing tomorrow * Hydralazine prn ordered for SBP >180 * Blood pressure remains elevated and will increase the dose of losartan to 100 mg daily #COPD #Asthma * NAD here * Continue home Ellipta * Albuterol as needed Q6H for SOB/wheeze No exacerbation #Depression * Continue home psych meds DVT Ppx: SCDs Code status: Full PCP: Dr. Cavanaugh Dispo: Admit for further management (2) Hypertension: (3) COPD (chronic obstructive pulmonary disease): (4) Major depression, chronic: (5) GERD (gastroesophageal reflux disease): Admission and Anticipated Discharge Date Admission Date: May 05, 2025 Subjective 05/06/2025 The patient was seen and examined in medical telemetry unit She still has nausea but no more vomiting today Abdominal pain with radiation to the back with persistent No diarrhea and no abdominal distention Review of Systems Review of Systems: All systems reviewed and are unremarkable except as noted below Physical Exam Physical Exam: Lying in bed without any acute distress Constitutional: + ill appearing and + thin Eyes: PERRL, conjunctivae normal, anicteric sclerae ENMT: external ear and nose normal, oropharynx normal Neck: trachea midline, no thyromegaly Respiratory: no respiratory distress Auscultation: lungs clear to ausc ultation bilaterally Cardiovascular: Rate/Rhythm: regular rate, regular rhythm and + tachycardic Heart Sounds: normal S1 and normal S2; no murmur Extremities: no edema Gastrointestinal (Abdomen): Inspection/Auscultation: abdomen normal to inspection and normal bowel sounds; abdomen not distended Percussion/Palpation: abdomen soft; abdomen nontender Musculoskeletal: Lower back pain and pain in the right lateral chest wall Neurologic: normal touch/pain/proprioception and moves all extremities; no focal motor deficits Lymphatic: no cervical or axillary lymphadenopathy Results & Data Results & Data Vital Signs (Past 12 Hours) Vital Signs Temp Pulse Pulse Resp BP Pulse Ox O2 Del Method 05/06/25 11:12 36.7 C 115 H 17 159/92 H 96 Room Air 05/06/25 08:36 37.0 C 114 H 18 209/107 H 96 Room Air 05/06/25 06:56 98 H 05/06/25 04:20 96 H 168/96 H 05/06/25 03:46 93 H 18 192/102 H 94 Room Air Laboratory Results Short CBC 05/06/25 Range/Units 06:01 WBC 13.00 H (4.8-10.8) K/ul Hgb 13.7 (12.0-16.0) g/dl Hct 37.8 (37.0-47.0) % Plt Count 272 (130-400) K/uL BMP 05/06/25 06:01 Sodium 134 L Potassium 3.6 Chloride 98 Carbon Dioxide 25 BUN 10 Creatinine 0.79 Glucose 80 Calcium 9.4 Liver Function 05/06/25 Range/Units 06:01 Total Bilirubin 0.7 (0.2-1.0) mg/dl AST 25 (13-39) U/L ALT 13 (7-52) U/L Alkaline Phosphatase 93 (34-104) U/L Albumin 4.0 (3.4-5.0) gm/dl Urine 05/05/25 Range/Units Unknown Urine Color Yellow Urine Appearance Clear (Clear) Urine pH 6.0 (4.5-7.5) Ur Specific [place] 1.011 (1.000-1.030) Urine Protein Trace H (Negative) Urine Glucose (UA) Negative (Negative) Medications Administered Current Inpatient Medications Al Hydrox/Mg Hydrox/Simethicone (Aluminum/Magnesium Susp 30 Ml Udc) 30 ml PO Q6H PRN PRN Reason: Dyspepsia Stop: 06/04/25 17:28 Albuterol (Albuterol 0.083% Nebu Soln 3 Ml Vial) 2.5 mg NEB Q6H PRN; Protocol PRN Reason: Shortness Of Breath Or Wheezing Stop: 06/04/25 17:28 Duloxetine HCl (Duloxetine Hcl 60 Mg Cap) 60 mg PO QAM MICK Stop: 06/05/25 08:59 Last Admin: 05/06/25 07:47 Dose: 60 mg Fluoxetine HCl (Fluoxetine Hcl 20 Mg Cap) 60 mg PO QAM MICK Stop: 06/05/25 08:59 Last Admin: 05/06/25 07:47 Dose: 60 mg Fluticasone Furoate (Fluticasone Furoate 100mcg 14 Puffs/Inhaler) 1 puffs INH DAILY [facility] Stop: 06/05/25 08:59 Last Admin: 05/06/25 07:46 Dose: 1 puffs Hydralazine HCl (Hydralazine Hcl 20 Mg/Ml Vial) 5 mg IV ONE PRN PRN Reason: Hypertension Stop: 06/04/25 17:28 Last Admin: 05/06/25 03:47 Dose: 5 mg Hydromorphone HCl (Hydromorphone Inj 1 Mg/Ml Syringe) 1 mg IV Q4H PRN PRN Reason: Severe Pain (Scale 7, 8, 9,10) Stop: 05/19/25 17:28 Last Admin: 05/06/25 13:21 Dose: 1 mg Lactated Ringer's (Lr) 500 mls @ 200 mls/hr IV .Q2H30M MICK Stop: 05/06/25 17:28 Last Admin: 05/06/25 12:45 Dose: 200 mls/hr Ketorolac Tromethamine (Ketorolac Tromethamine 15 Mg/Ml Vial) 15 mg IV Q6H PRN PRN Reason: Moderate Pain (Scale 4, 5, 6) Stop: 05/10/25 17:28 Last Admin: 05/06/25 09:10 Dose: 15 mg Losartan Potassium (Losartan Potassium 50 Mg Tab) 50 mg PO QAM [facility] Stop: 06/05/25 08:59 Last Admin: 05/06/25 07:47 Dose: 50 mg Magnesium Hydroxide (Magnesium Hydroxide Susp 30 Ml Udc) 30 ml PO Q6H PRN PRN Reason: Constipation Stop: 06/04/25 17:28 Last Admin: 05/06/25 09:09 Dose: 30 ml Miscellaneous (Remove Nicoderm Patch) 1 each N/A DAILY@0859 [facility] Stop: 06/05/25 08:58 Last Admin: 05/06/25 07:46 Dose: 1 each Multivitamins (Multivitamin Tab) 1 tab PO QAM [facility] Stop: 06/05/25 08:59 Last Admin: 05/06/25 07:48 Dose: 1 tab Nicotine (Nicotine 14 Mg/24 Hr Patch) 1 patch TD QAM [facility] Stop: 06/04/25 18:14 Last Admin: 05/06/25 07:46 Dose: Not Given Ondansetron HCl (Ondansetron Inj 2 Mg/Ml 2 Ml Vial) 4 mg IV Q6H PRN PRN Reason: Nausea Stop: 06/04/25 17:28 Last Admin: 05/06/25 07:52 Dose: 4 mg Pantoprazole Sodium (Pantoprazole 40 Mg Tab) 40 mg PO DAILY [facility] Stop: 06/05/25 08:59 Last Admin: 05/06/25 07:48 Dose: 40 mg Polyethylene Glycol (Polyethylene (Miralax) 17 Gm Pack) 17 gm PO DAILY PRN PRN Reason: Constipation Stop: 06/04/25 17:28 Pregabalin (Pregabalin 150 Mg Cap) 150 mg PO AMHS [facility] Stop: 06/04/25 20:59 Last Admin: 05/06/25 07:45 Dose: 150 mg Trazodone HCl (Trazodone Hcl 50 Mg Tab) 50 mg PO HS [facility] Stop: 06/04/25 23:34 Last Admin: 05/05/25 23:50 Dose: 50 mg Umeclidinium/Vilanterol (Umeclidinium/Vilanterol 62.5/25mcg 7 Puffs/Inhaler) 1 puffs INH DAILY [facility] Stop: 06/05/25 08:59 Last Admin: 05/06/25 07:48 Dose: 1 puffs
[2025-05-07] MEDS ORDERED: Nursing to Pharmacy Communication SCH (02:45)
[2025-05-07] MEDS: DOCUSATE SODIUM/SENNA 50/8.6MG TAB PO SCH ×2 (02:59→08:38)
[2025-05-07 06:40] LABS: Hematocrit (blood only) 34.4 % (37.0-47.0); Hemoglobin 12.3 g/dl (12.0-16.0); Immature Granulocytes # (auto) 0.04 K/uL (0.01-0.20); Immature Granulocytes % (auto) 0.4 %; Mean Corpuscular Hemoglobin 30.2 pg (25.0-34.0); Mean Corpuscular Volume 84.5 fL (80.0-100.0); Platelet Count 243 K/uL (130-400); RDW Standard Deviation 44.3 fL (36.4-46.3); Red Blood Count 4.07 M/uL (4.20-5.40); White Blood Count 9.94 K/ul (4.8-10.8)
[2025-05-07 07:11] LABS: Anion Gap 11.0 (3-11); Blood Urea Nitrogen 8.0 mg/dl (6-23); Calcium 9.2 mg/dl (8.6-10.3); Carbon Dioxide 26.0 mmol/L (21-32); Chloride 99.0 mmol/L (98-107); Creatinine Clr Calc Pharmacy 71.9 ml/min; Glucose 75.0 mg/dl (70-99(Fasting)); Magnesium 1.8 mg/dl (1.7-2.4); Potassium 3.8 mmol/L (3.5-5.1); Sodium 136.0 mmol/L (136-145)
--- NOTE | 2025-05-07 09:47 | Hospitalist Progress Note ---
Date of Service May 07, 2025 Assessment & Plan (1) Pancreatitis, acute: Plan: Patient is a 55 year old F with a past medical history of chronic pancreatitis, spinal stenosis with chronic back pain and opioid dependence, asthma, COPD, Metz's esoph, depression, fibromyalgia, microcytic anemia presenting with severe abdominal pain. Symptoms began 2 days ago following a family event when she ate fatty foods and consumed alcohol. Pain is 10/10 epigastric with radiation to the back, reports the pain "takes breath away". Minimal food and fluid intake in the past 2 years, but is still urinating okay. Has nausea and vomiting, denies diarrhea. Reports having a fever yesterday that broke without treatment. #Acute on chronic Pancreatitis #GERD Likely secondary to use of alcohol * CT abdomen/pelvis w/ contrast showing recurrent acute pancreatitis. Mild to moderate peripancreatic fluid; Stable to slight decrease in biliary ductal dilatation; No convincing evidence for cholecystitis. * Severe pain w/o relief from Morphine 4mg/ Dilaudid 1 mg; hx Opioid dependence-->will start Toradol for mod pain, Hydromorphone 1 mg for severe pain * NPO; 1L NSS and will be continued. Symptomatic medication for pain and nausea * Continue home PPI for h/o Metz's * Clinically looking better and does not have any more vomiting and pain seems to be decreasing * strongly advised to quit drinking She still has significant pain in the epigastrium but without nausea no vomiting She wanted to have her diet advanced and she was given full liquid diet Has not had a bowel movement for the last 3 or 4 days and will be given her MiraLAX Denies any other significant symptoms #Hypertension * BP's initially ok, then 200's/100's in ED; Labetolol 10mg given, then increased to 20 mg; suspect HTN pain related with poss med nonadherence at home * Poor historian with home BP meds, per external chart review, patient on losartan 50 mg daily; losartan x 1 given in ED and resume daily dosing tomorrow * Hydralazine prn ordered for SBP >180 * Blood pressure remains elevated and will increase the dose of losartan to 100 mg daily Her blood pressure is improving and it was noted to be 148/81 today #COPD #Asthma * NAD here * Continue home Ellipta * Albuterol as needed Q6H for SOB/wheeze No exacerbation #Depression * Continue home psych meds DVT Ppx: SCDs Code status: Full PCP: Dr. Cavanaugh Dispo: Admit for further management (2) Hypertension: (3) COPD (chronic obstructive pulmonary disease): (4) Major depression, chronic: (5) GERD (gastroesophageal reflux disease): Admission and Anticipated Discharge Date Admission Date: May 05, 2025 Subjective 05/06/2025 The patient was seen and examined in medical telemetry unit She still has nausea but no more vomiting today Abdominal pain with radiation to the back with persistent No diarrhea and no abdominal distention 05/07/2025 The patient was seen and examined in medical telemetry unit Still has significant pain in the epigastrium without nausea no vomiting She has not had any bowel movement for the last 2 or 3 days She has started with full liquid diet today Review of Systems Review of Systems: All systems reviewed and are unremarkable except as noted below Physical Exam Physical Exam: Lying in bed without any acute distress Constitutional: + ill appearing and + thin Eyes: PERRL, conjunctivae normal, anicteric sclerae ENMT: external ear and nose normal, oropharynx normal Neck: trachea midline, no thyromegaly Respiratory: no respiratory distress Auscultation: lungs clear to auscultation bilaterally Cardiovascular: Rate/Rhythm: regular rate, regular rhythm and + tachycardic Heart Sounds: normal S1 and normal S2; no murmur Extremities: no edema Gastrointestinal (Abdomen): Inspection/Auscultation: abdomen normal to inspec tion and normal bowel sounds; abdomen not distended Percussion/Palpation: abdomen soft; abdomen nontender (Mostly in the epigastrium) Neurologic: normal touch/pain/proprioception and moves all extremities; no focal motor deficits Lymphatic: no cervical or axillary lymphadenopathy Results & Data Results & Data Vital Signs (Past 12 Hours) Vital Signs Temp Pulse Pulse Resp BP Pulse Ox O2 Del Method 05/07/25 08:28 36.5 C 91 H 18 148/81 H 98 Room Air 05/07/25 05:56 95 H 05/07/25 05:47 171/97 H 05/07/25 03:52 36.5 C 69 20 207/114 H 93 Room Air 05/07/25 00:21 36.7 C 86 20 178/97 H 97 Room Air 05/06/25 23:00 83 Laboratory Results Short CBC 05/07/25 Range/Units 06:12 WBC 9.94 (4.8-10.8) K/ul Hgb 12.3 (12.0-16.0) g/dl Hct 34.4 L (37.0-47.0) % Plt Count 243 (130-400) K/uL BMP 05/07/25 06:12 Sodium 136 Potassium 3.8 Chloride 99 Carbon Dioxide 26 BUN 8 Creatinine 0.69 Glucose 75 Calcium 9.2 Medications Administered Current Inpatient Medications Al Hydrox/Mg Hydrox/Simethicone (Aluminum/Magnesium Susp 30 Ml Udc) 30 ml PO Q6H PRN PRN Reason: Dyspepsia Stop: 06/04/25 17:28 Albuterol (Albuterol 0.083% Nebu Soln 3 Ml Vial) 2.5 mg NEB Q6H PRN; Protocol PRN Reason: Shortness Of Breath Or Wheezing Stop: 06/04/25 17:28 Duloxetine HCl (Duloxetine Hcl 60 Mg Cap) 60 mg PO QAM [facility] Stop: 06/05/25 08:59 Last Admin: 05/07/25 08:38 Dose: 60 mg Fluoxetine HCl (Fluoxetine Hcl 20 Mg Cap) 60 mg PO QAM [facility] Stop: 06/05/25 08:59 Last Admin: 05/07/25 08:38 Dose: 60 mg Fluticasone Furoate (Fluticasone Furoate 100mcg 14 Puffs/Inhaler) 1 puffs INH DAILY [facility] Stop: 06/05/25 08:59 Last Admin: 05/07/25 08:38 Dose: 1 puffs Hydralazine HCl (Hydralazine Hcl 20 Mg/Ml Vial) 5 mg IV ONE PRN PRN Reason: Hypertension Stop: 06/04/25 17:28 Last Admin: 05/07/25 03:29 Dose: 5 mg Hydromorphone HCl (Hydromorphone Inj 1 Mg/Ml Syringe) 1 mg IV Q4H PRN PRN Reason: Severe Pain (Scale 7, 8, 9,10) Stop: 05/19/25 17:28 Last Admin: 05/07/25 06:23 Dose: 1 mg Ketorolac Tromethamine (Ketorolac Tromethamine 15 Mg/Ml Vial) 15 mg IV Q6H PRN PRN Reason: Moderate Pain (Scale 4, 5, 6) Stop: 05/10/25 17:28 Last Admin: 05/07/25 03:29 Dose: 15 mg Losartan Potassium (Losartan Potassium 50 Mg Tab) 50 mg PO QAM [facility] Stop: 06/05/25 08:59 Last Admin: 05/07/25 08:38 Dose: 50 mg Magnesium Hydroxide (Magnesium Hydroxide Susp 30 Ml Udc) 30 ml PO Q6H PRN PRN Reason: Constipation Stop: 06/04/25 17:28 Last Admin: 05/06/25 09:09 Dose: 30 ml Miscellaneous (Remove Nicoderm Patch) 1 each N/A DAILY@0859 [facility] Stop: 06/05/25 08:58 Last Admin: 05/07/25 08:34 Dose: Not Given Multivitamins (Multivitamin Tab) 1 tab PO QAM [facility] Stop: 06/05/25 08:59 Last Admin: 05/07/25 08:38 Dose: 1 tab Nicotine (Nicotine 14 Mg/24 Hr Patch) 1 patch TD QAM [facility] Stop: 06/04/25 18:14 Last Admin: 05/07/25 08:38 Dose: 1 patch Ondansetron HCl (Ondansetron Inj 2 Mg/Ml 2 Ml Vial) 4 mg IV Q6H PRN PRN Reason: Nausea Stop: 06/04/25 17:28 Last Admin: 05/06/25 07:52 Dose: 4 mg Pantoprazole Sodium (Pantoprazole 40 Mg Tab) 40 mg PO DAILY [facility] Stop: 06/05/25 08:59 Last Admin: 05/07/25 08:39 Dose: 40 mg Polyethylene Glycol (Polyethylene (Miralax) 17 Gm Pack) 17 gm PO DAILY PRN PRN Reason: Constipation Stop: 06/04/25 17:28 Pregabalin (Pregabalin 150 Mg Cap) 150 mg PO AMHS [facility] Stop: 06/04/25 20:59 Last Admin: 05/07/25 08:39 Dose: 150 mg Senna/Docusate Sodium (Docusate Sodium/Senna 50/8.6mg Tab) 1 tab PO QAM [facility] Stop: 06/06/25 08:59 Last Admin: 05/07/25 08:38 Dose: 1 tab Trazodone HCl (Trazodone Hcl 50 Mg Tab) 50 mg PO HS [facility] Stop: 06/04/25 23:34 Last Admin: 05/06/25 20:06 Dose: 50 mg Umeclidinium/Vilanterol (Umeclidinium/Vilanterol 62.5/25mcg 7 Puffs/Inhaler) 1 puffs INH DAILY [facility] Stop: 06/05/25 08:59 Last Admin: 05/07/25 08:39 Dose: 1 puffs
[2025-05-07] MEDS: POLYETHYLENE (MIRALAX) 17 GM PACK PO SCH (10:07)
[2025-05-07] MEDS: SIMETHICONE 80 MG CHEW PO ONE (20:11)
[2025-05-07] MEDS ORDERED: Ativan IV Alcohol Withdrawal--Active Protocol IV PRN (20:53)
[2025-05-07] MEDS ORDERED: GABAPENTIN 1200MG ALCOHOL WITHDRAWAL LOAD PO STA (20:55)
[2025-05-07] MEDS: THIAMINE HCL 100 MG in SYRINGE 9 ML IV STA (21:45)
[2025-05-07] MEDS: GABAPENTIN 600 MG TAB PO ONE (21:45)
[2025-05-08] MEDS: GABAPENTIN 600 MG TAB PO SCH ×2 (03:25→16:00)
[2025-05-08 07:07] LABS: Hematocrit (blood only) 32.5 % (37.0-47.0); Hemoglobin 11.6 g/dl (12.0-16.0); Immature Granulocytes # (auto) 0.03 K/uL (0.01-0.20); Immature Granulocytes % (auto) 0.4 %; Mean Corpuscular Hemoglobin 29.9 pg (25.0-34.0); Mean Corpuscular Volume 83.8 fL (80.0-100.0); Platelet Count 241 K/uL (130-400); RDW Standard Deviation 44.7 fL (36.4-46.3); Red Blood Count 3.88 M/uL (4.20-5.40); White Blood Count 8.20 K/ul (4.8-10.8)
[2025-05-08 07:28] LABS: Anion Gap 8.0 (3-11); Blood Urea Nitrogen 7.0 mg/dl (6-23); Calcium 9.0 mg/dl (8.6-10.3); Carbon Dioxide 28.0 mmol/L (21-32); Chloride 98.0 mmol/L (98-107); Creatinine Clr Calc Pharmacy 70.2 ml/min; Glucose 89.0 mg/dl (70-99(Fasting)); Lipase 242.0 U/L (11-82); Magnesium 1.6 mg/dl (1.7-2.4); Potassium 3.5 mmol/L (3.5-5.1); Sodium 134.0 mmol/L (136-145)
[2025-05-08] MEDS: MAGNESIUM SULFATE / D5W 1 GM/100 ML BAG IV SCH (08:23)
[2025-05-08] MEDS: FOLIC ACID 1 MG TAB PO SCH (08:25)
[2025-05-08] MEDS: SODIUM CHLORIDE 0.9% 1,000 ML IV SCH (09:37)
[2025-05-08] MEDS: LORazepam 0.5 MG TAB PO PRN (09:38)
[2025-05-08] MEDS: THIAMINE HCL 100 MG TAB PO SCH (09:38)
--- NOTE | 2025-05-08 11:57 | Hospitalist Progress Note ---
Date of Service May 08, 2025 Assessment & Plan (1) Pancreatitis, acute: Plan: Patient is a 55 year old F with a past medical history of chronic pancreatitis, spinal stenosis with chronic back pain and opioid dependence, asthma, COPD, Metz's esoph, depression, fibromyalgia, microcytic anemia presenting with severe abdominal pain. Symptoms began 2 days ago following a family event when she ate fatty foods and consumed alcohol. Pain is 10/10 epigastric with radiation to the back, reports the pain "takes breath away". Minimal food and fluid intake in the past 2 years, but is still urinating okay. Has nausea and vomiting, denies diarrhea. Reports having a fever yesterday that broke without treatment. #Acute on chronic Pancreatitis #GERD Likely secondary to use of alcohol * CT abdomen/pelvis w/ contrast showing recurrent acute pancreatitis. Mild to moderate peripancreatic fluid; Stable to slight decrease in biliary ductal dilatation; No convincing evidence for cholecystitis. * Severe pain w/o relief from Morphine 4mg/ Dilaudid 1 mg; hx Opioid dependence-->will start Toradol for mod pain, Hydromorphone 1 mg for severe pain * NPO; 1L NSS and will be continued. Symptomatic medication for pain and nausea * Continue home PPI for h/o Metz's * Clinically looking better and does not have any more vomiting and pain seems to be decreasing * strongly advised to quit drinking She still has significant pain in the epigastrium but without nausea no vomiting She wanted to have her diet advanced and she was given full liquid diet Reported increasing belly pain with full liquid diet today, scaled back to n.p.o., IV fluid restarted, trend lipase in a.m., trend labs in AM. Denies any other significant symptoms Monitor and replete electrolytes, magnesium repleted. #Hypertension * BP's initially ok, then 200's/100's in ED; Labetolol 10mg given, then increased to 20 mg; suspect HTN pain related with poss med nonadherence at home * Poor historian with home BP meds, per external chart review, patient on losartan 50 mg daily; losartan x 1 given in ED and resumed daily dosing * Hydralazine prn ordered for SBP >180 * Consider up titration of blood pressure medication once out of acute issues, until then utilize as needed blood pressure medication. #COPD #Asthma * NAD here * Continue home Ellipta * Albuterol as needed Q6H for SOB/wheeze No exacerbation #Depression * Continue home psych meds DVT Ppx: SCDs Code status: Full PCP: Dr. Cavanaugh (2) Hypertension: (3) COPD (chronic obstructive pulmonary disease): (4) Major depression, chronic: (5) GERD (gastroesophageal reflux disease): Admission and Anticipated Discharge Date Admission Date: May 05, 2025 Subjective The patient was seen and examined in medical telemetry unit Still has significant pain in the epigastrium without nausea And vomiting Patient reports increasing her belly pain with full liquid diet today. We discussed to scale back to n.p.o. and start IV fluid, patient agreeable. Physical Exam Physical Exam: Lying in bed without any acute distress Constitutional: + ill appearing and + thin Eyes: PERRL, conjunctivae normal, anicteric sclerae ENMT: external ear and nose normal, oropharynx normal Neck: trachea midline, no thyromegaly Respiratory: no respiratory distress Auscultation: lungs clear to auscultation bilaterally Cardiovascular: Rate/Rhythm: regular rate and regular rhythm Heart Sounds: normal S1 and normal S2; no murmur Extremities: no edema Gastrointestinal (Abdomen): Inspection/Auscultation: abdomen normal to inspection and normal bowel sounds; abdomen not distended Percussion/Palpation: + abdomen tender (Mostly in the epigastrium) and abdomen soft Neurologic: normal touch/pain/proprioception and moves all extremities; no focal motor deficits Lymphatic: no cervical or axillary lymphadenopathy Results & Data Results & Data Vital Signs (Past 12 Hours) Vital Signs Temp Pulse Pulse Resp BP Pulse Ox O2 Del Method 05/08/25 11:02 36.7 C 87 18 169/94 H 94 Room Air 05/08/25 08:33 36.7 C 90 18 164/100 H 97 Room Air 05/08/25 07:29 Room Air 05/08/25 05:48 79 05/08/25 04:26 36.4 C L 78 18 170/90 H 95 Room Air 05/08/25 01:00 88
[2025-05-08] MEDS ORDERED: HYDROCODONE/ACETAMOPHEN 5/325MG TAB PO PRN (19:44)
[2025-05-08] MEDS ORDERED: HYDROmorphone INJ 1 MG/ML SYRINGE IV PRN (19:47)
[2025-05-08] MEDS: HYDROCODONE/ACETAMINOPHEN 7.5/325MG TAB PO PRN (20:11)
[2025-05-08] MEDS: busPIRone 5 MG TAB PO SCH (21:40)
[2025-05-08] MEDS: SIMETHICONE 80 MG CHEW PO PRN (21:40)
[2025-05-09 05:58] LABS: Hematocrit (blood only) 34.7 % (37.0-47.0); Hemoglobin 12.5 g/dl (12.0-16.0); Mean Corpuscular Hemoglobin 30.3 pg (25.0-34.0); Mean Corpuscular Volume 84.0 fL (80.0-100.0); Platelet Count 259 K/uL (130-400); RDW Standard Deviation 44.9 fL (36.4-46.3); Red Blood Count 4.13 M/uL (4.20-5.40); White Blood Count 9.29 K/ul (4.8-10.8)
[2025-05-09 06:15] LABS: Anion Gap 8.0 (3-11); Blood Urea Nitrogen 5.0 mg/dl (6-23); Calcium 9.1 mg/dl (8.6-10.3); Carbon Dioxide 27.0 mmol/L (21-32); Chloride 102.0 mmol/L (98-107); Creatinine Clr Calc Pharmacy 65.0 ml/min; Glucose 113.0 mg/dl (70-99(Fasting)); Lipase 209.0 U/L (11-82); Magnesium 1.8 mg/dl (1.7-2.4); Potassium 3.9 mmol/L (3.5-5.1); Sodium 137.0 mmol/L (136-145)
[2025-05-09] MEDS: HYDROmorphone INJ 1 MG/ML SYRINGE IV PRN (08:17)
--- NOTE | 2025-05-09 16:20 | Hospitalist Progress Note ---
Date of Service May 09, 2025 Assessment & Plan (1) Pancreatitis, acute: Plan: Patient is a 55 year old F with a past medical history of chronic pancreatitis, spinal stenosis with chronic back pain and opioid dependence, asthma, COPD, Metz's esoph, depression, fibromyalgia, microcytic anemia presenting with severe abdominal pain. Symptoms began 2 days ago following a family event when she ate fatty foods and consumed alcohol. Pain is 10/10 epigastric with radiation to the back, reports the pain "takes breath away". Minimal food and fluid intake in the past 2 years, but is still urinating okay. Has nausea and vomiting, denies diarrhea. Reports having a fever yesterday that broke without treatment. #Acute on chronic Pancreatitis #GERD Likely secondary to use of alcohol * CT abdomen/pelvis w/ contrast showing recurrent acute pancreatitis. Mild to moderate peripancreatic fluid; Stable to slight decrease in biliary ductal dilatation; No convincing evidence for cholecystitis. * Severe pain w/o relief from Morphine 4mg/ Dilaudid 1 mg; hx Opioid dependence-->will start Toradol for mod pain, Hydromorphone 1 mg for severe pain * NPO; 1L NSS and will be continued. Symptomatic medication for pain and nausea * Continue home PPI for h/o Metz's * Clinically looking better and does not have any more vomiting and pain seems to be decreasing * strongly advised to quit drinking She still has significant pain in the epigastrium but without nausea no vomiting She wanted to have her diet advanced and she was given full liquid diet Reported increasing belly pain with full liquid diet today, scaled back to n.p.o., IV fluid restarted, trend lipase in a.m., trend labs in AM. Denies any other significant symptoms Monitor and replete electrolytes, magnesium repleted. Still complains abdominal pain in the epigastrium that goes to the back with n ausea but no vomiting Has been getting intravenous pain medications and full liquid diet Will continue current management and try to advance diet tomorrow if tolerated #Hypertension * BP's initially ok, then 200's/100's in ED; Labetolol 10mg given, then increased to 20 mg; suspect HTN pain related with poss med nonadherence at home * Poor historian with home BP meds, per external chart review, patient on losartan 50 mg daily; losartan x 1 given in ED and resumed daily dosing * Hydralazine prn ordered for SBP >180 * Consider up titration of blood pressure medication once out of acute issues, u ntil then utilize as needed blood pressure medication. Blood pressure remains elevated and will start amlodipine #COPD #Asthma * NAD here * Continue home Ellipta * Albuterol as needed Q6H for SOB/wheeze No exacerbation #Depression * Continue home psych meds DVT Ppx: SCDs Code status: Full PCP: Dr. Cavanaugh (2) Hypertension: (3) COPD (chronic obstructive pulmonary disease): (4) Major depression, chronic: (5) GERD (gastroesophageal reflux disease): Admission and Anticipated Discharge Date Admission Date: May 05, 2025 Subjective 05/06/2025 The patient was seen and examined in medical telemetry unit She still has nausea but no more vomiting today Abdominal pain with radiation to the back with persistent No diarrhea and no abdominal distention 05/07/2025 The patient was seen and examined in medical telemetry unit Still has significant pain in the epigastrium without nausea no vomiting She has not had any bowel movement for the last 2 or 3 days She has started with full liquid diet today 05/09/2025 The patient was seen and examined in medical telemetry unit She has been complaining of abdominal pain with nausea and has been tolerating diet yet Will continue full liquid diet today and if tolerated will advance tomorrow Review of Systems Review of Systems: All systems reviewed and are unremarkable except as noted below Physical Exam Physical Exam: Lying in bed without any acute distress Constitutional: + ill appearing and + thin Eyes: PERRL, conjunctivae normal, anicteric sclerae ENMT: external ear and nose normal, oropharynx normal Neck: trachea midline, no thyromegaly Respiratory: no respiratory distress Auscultation: lungs clear to auscultation bilaterally Cardiovascular: Rate/Rhythm: regular rate, regular rhythm and + tachycardic Heart Sounds: normal S1 and normal S2; no murmur Extremities: no edema Gastrointestinal (Abdomen): Inspection/Auscultation: abdomen normal to inspection and normal bowel sounds; abdomen not distended Percussion/Palpation: abdomen soft; abdomen nontender (Mostly in the epigastrium) Neurologic: normal touch/pain/proprioception and moves all extremities; no focal motor deficits Lymphatic: no cervical or axillary lymphadenopathy Results & Data Results & Data Vital Signs (Past 12 Hours) Vital Signs Temp Pulse Pulse Resp BP BP Pulse Ox 05/09/25 15:59 36.8 C 86 18 178/106 H 167/105 H 99 05/09/25 14:53 87 05/09/25 11:11 36.6 C 84 18 160/97 H 98 05/09/25 08:50 160/90 H 05/09/25 07:59 36.9 C 65 18 196/107 H 176/109 H 97 05/09/25 07:40 05/09/25 07:26 79 O2 Del Method 05/09/25 15:59 Room Air 05/09/25 14:53 05/09/25 11:11 Room Air 05/09/25 08:50 05/09/25 07:59 Room Air 05/09/25 07:40 Room Air 05/09/25 07:26 Laboratory Results Short CBC 05/09/25 Range/Units 05:38 WBC 9.29 (4.8-10.8) K/ul Hgb 12.5 (12.0-16.0) g/dl Hct 34.7 L (37.0-47.0) % Plt Count 259 (130-400) K/uL BMP 05/09/25 05:38 Sodium 137 Potassium 3.9 Chloride 102 Carbon Dioxide 27 BUN 5 L Creatinine 0.80 Glucose 113 H Calcium 9.1 Medications Administered Current Inpatient Medications Hydrocodone Bitart/Acetaminophen (Hydrocodone/Acetaminophen 7.5/325mg Tab) 1 tab PO TID PRN PRN Reason: Mod-Sev Pain (Scale 4-10) Stop: 05/22/25 19:45 Last Admin: 05/09/25 12:38 Dose: 1 tab Al Hydrox/Mg Hydrox/Simethicone (Aluminum/Magnesium Susp 30 Ml Udc) 30 ml PO Q6H PRN PRN Reason: Dyspepsia Stop: 06/04/25 17:28 Albuterol (Albuterol 0.083% Nebu Soln 3 Ml Vial) 2.5 mg NEB Q6H PRN; Protocol PRN Reason: Shortness Of Breath Or Wheezing Stop: 06/04/25 17:28 Buspirone HCl (Buspirone 5 Mg Tab) 10 mg PO BID [facility] Stop: 06/07/25 20:59 Last Admin: 05/09/25 08:30 Dose: 10 mg Duloxetine HCl (Duloxetine Hcl 60 Mg Cap) 60 mg PO QAM [facility] Stop: 06/05/25 08:59 Last Admin: 05/09/25 08:29 Dose: 60 mg Fluoxetine HCl (Fluoxetine Hcl 20 Mg Cap) 60 mg PO QAM [facility] Stop: 06/05/25 08:59 Last Admin: 05/09/25 08:29 Dose: 60 mg Fluticasone Furoate (Fluticasone Furoate 100mcg 14 Puffs/Inhaler) 1 puffs INH DAILY [facility] Stop: 06/05/25 08:59 Last Admin: 05/09/25 08:29 Dose: 1 puffs Folic Acid (Folic Acid 1 Mg Tab) 1 mg PO QAM [facility] Stop: 06/07/25 08:59 Last Admin: 05/09/25 08:29 Dose: 1 mg Gabapentin (Gabapentin 600 Mg Tab) 600 mg PO Q24H [facility] Stop: 05/11/25 09:01 Gabapentin (Gabapentin 600 Mg Tab) 600 mg PO Q12H [facility] Stop: 05/10/25 09:01 Hydralazine HCl (Hydralazine Hcl 20 Mg/Ml Vial) 5 mg IV ONE PRN PRN Reason: Hypertension Stop: 06/04/25 17:28 Last Admin: 05/07/25 03:29 Dose: 5 mg Hydromorphone HCl (Hydromorphone Inj 1 Mg/Ml Syringe) 1 mg IV Q6H PRN PRN Reason: Breakthrough Pain Stop: 05/22/25 19:46 Last Admin: 05/09/25 15:27 Dose: 1 mg Ketorolac Tromethamine (Ketorolac Tromethamine 15 Mg/Ml Vial) 15 mg IV Q6H PRN PRN Reason: Moderate Pain (Scale 4, 5, 6) Stop: 05/10/25 17:28 Last Admin: 05/09/25 06:11 Dose: 15 mg Lorazepam (Lorazepam 2 Mg/1 Ml Vial) 1 mg IV UD PRN; Protocol PRN Reason: EtOH Withdrawal AWSS Score 6,7 Stop: 06/06/25 20:52 Lorazepam (Lorazepam 2 Mg/1 Ml Vial) 2 mg IV UD PRN; Protocol PRN Reason: EtOH Withdrawal AWSS Score 8,9 Stop: 06/06/25 20:52 Lorazepam (Lorazepam 2 Mg/1 Ml Vial) 3 mg IV ONCE PRN; Protocol PRN Reason: EtOH Withdrawal AWSS Score 10+ Lorazepam (Lorazepam 0.5 Mg Tab) 0.5 mg PO ONE PRN PRN Reason: anxiety Stop: 06/07/25 08:42 Last Admin: 05/09/25 11:08 Dose: 0.5 mg Losartan Potassium (Losartan Potassium 50 Mg Tab) 50 mg PO QAM [facility] Stop: 06/05/25 08:59 Last Admin: 05/09/25 08:29 Dose: 50 mg Magnesium Hydroxide (Magnesium Hydroxide Susp 30 Ml Udc) 30 ml PO Q6H PRN PRN Reason: Constipation Stop: 06/04/25 17:28 Last Admin: 05/06/25 09:09 Dose: 30 ml Miscellaneous (Remove Nicoderm Patch) 1 each N/A DAILY@0859 [facility] Stop: 06/05/25 08:58 Last Admin: 05/09/25 08:28 Dose: 1 each Multivitamins (Multivitamin Tab) 1 tab PO QAM [facility] Stop: 06/05/25 08:59 Last Admin: 05/09/25 08:30 Dose: 1 tab Nicotine (Nicotine 14 Mg/24 Hr Patch) 1 patch TD QAM [facility] Stop: 06/04/25 18:14 Last Admin: 05/09/25 08:29 Dose: 1 patch Ondansetron HCl (Ondansetron Inj 2 Mg/Ml 2 Ml Vial) 4 mg IV Q6H PRN PRN Reason: Nausea Stop: 06/04/25 17:28 Last Admin: 05/06/25 07:52 Dose: 4 mg Pantoprazole Sodium (Pantoprazole 40 Mg Tab) 40 mg PO BID [facility] Stop: 06/06/25 20:59 Last Admin: 05/09/25 08:29 Dose: 40 mg Polyethylene Glycol (Polyethylene (Miralax) 17 Gm Pack) 17 gm PO DAILY [facility] Stop: 06/06/25 09:59 Last Admin: 05/09/25 08:30 Dose: 17 gm Pregabalin (Pregabalin 150 Mg Cap) 150 mg PO AMHS [facility] Stop: 06/04/25 20:59 Last Admin: 05/07/25 20:11 Dose: 150 mg Senna/Docusate Sodium (Docusate Sodium/Senna 50/8.6mg Tab) 1 tab PO QAM [facility] Stop: 06/06/25 08:59 Last Admin: 05/09/25 08:30 Dose: 1 tab Simethicone (Simethicone 80 Mg Chew) 80 mg PO Q6H PRN PRN Reason: Gas or Constipation Stop: 06/07/25 20:16 Last Admin: 05/08/25 21:40 Dose: 80 mg Thiamine HCl (Thiamine Hcl 100 Mg Tab) 100 mg PO QAM [facility] Stop: 06/07/25 08:59 Last Admin: 05/09/25 08:30 Dose: 100 mg Trazodone HCl (Trazodone Hcl 50 Mg Tab) 50 mg PO HS [facility] Stop: 06/04/25 23:34 Last Admin: 05/08/25 20:13 Dose: 50 mg Umeclidinium/Vilanterol (Umeclidinium/Vilanterol 62.5/25mcg 7 Puffs/Inhaler) 1 puffs INH DAILY [facility] Stop: 06/05/25 08:59 Last Admin: 05/09/25 08:28 Dose: 1 puffs
[2025-05-09] MEDS: GABAPENTIN 600 MG TAB PO SCH (22:05)
[2025-05-10 07:08] LABS: Anion Gap 7.0 (3-11); Blood Urea Nitrogen 5.0 mg/dl (6-23); Calcium 9.2 mg/dl (8.6-10.3); Carbon Dioxide 29.0 mmol/L (21-32); Chloride 101.0 mmol/L (98-107); Creatinine Clr Calc Pharmacy 69.3 ml/min; Glucose 99.0 mg/dl (70-99(Fasting)); Lipase 147.0 U/L (11-82); Potassium 3.6 mmol/L (3.5-5.1); Sodium 137.0 mmol/L (136-145)
--- NOTE | 2025-05-10 11:00 | CT Scan Report ---
Clinical History: Rule out perforation Technique: Axial computed tomography images were obtained of the abdomen and pelvis without intravenous contrast. Comparison is made to the prior CT dated 05/05/2025 Findings: The liver is overall of normal size, attenuation, and contour with no sign of cirrhosis or significant fatty infiltration. No definite liver mass lesion is seen on this noncontrast study. The gallbladder appears unremarkable. No bile duct dilatation is noted. The spleen is of normal size. No focal splenic lesion is evident. There has been interval decrease in soft tissue stranding and fluid around the pancreas. The pancreatic duct is of normal caliber. The adrenal glands appear unremarkable. No renal or proximal ureteral calculi are seen. There is no hydronephrosis or perinephric stranding. No definite renal mass lesion is identified. The aorta is of normal caliber. No abdominal adenopathy is seen. The stomach appears normal. There is no sign of small bowel obstruction. The colon appears unremarkable. The appendix appears normal also. No free intraperitoneal fluid or air is identified. No distal ureteral or bladder calculi are seen. No obvious bladder mass lesion is evident. The iliac arteries are of normal caliber. No pelvic adenopathy is noted. There are mild multifocal groundglass opacities in the right lung base that could be due to viral pneumonitis. There is an unchanged anterior and posterior fusion of L3-L5. There is an unchanged mild old L2 compression fracture. No focal osseous lesion is seen Impression: 1. Near complete resolution of the previously seen acute pancreatitis 2. Groundglass opacities in the right lung base that may be due to viral pneumonitis 3. No sign of bowel perforation ACT 112: Positive. There are findings on this exam that require communication between the performing entity and the patient following Patient Test Result Information Act ([place] ACT 112) guidelines. Electronically signed by Kirby Covarrubias 05-10-2025 11:00 AM
[2025-05-10] MEDS: HYDROmorphone INJ 0.5 MG/0.5 ML SYR IV PRN (11:35)
--- NOTE | 2025-05-10 13:12 | Hospitalist Progress Note ---
Date of Service May 10, 2025 Assessment & Plan (1) Pancreatitis, acute: Plan: Patient is a 55 year old F with a past medical history of chronic pancreatitis, spinal stenosis with chronic back pain and opioid dependence, asthma, COPD, Metz's esoph, depression, fibromyalgia, microcytic anemia presenting with severe abdominal pain. Symptoms began 2 days ago following a family event when she ate fatty foods and consumed alcohol. Pain is 10/10 epigastric with radiation to the back, reports the pain "takes breath away". Minimal food and fluid intake in the past 2 years, but is still urinating okay. Has nausea and vomiting, denies diarrhea. Reports having a fever yesterday that broke without treatment. #Acute on chronic Pancreatitis #GERD Likely secondary to use of alcohol * CT abdomen/pelvis w/ contrast showing recurrent acute pancreatitis. Mild to moderate peripancreatic fluid; Stable to slight decrease in biliary ductal dilatation; No convincing evidence for cholecystitis. * Severe pain w/o relief from Morphine 4mg/ Dilaudid 1 mg; hx Opioid dependence-->will start Toradol for mod pain, Hydromorphone 1 mg for severe pain * NPO; 1L NSS and will be continued. Symptomatic medication for pain and nausea * Continue home PPI for h/o Metz's * Clinically looking better and does not have any more vomiting and pain seems to be decreasing * strongly advised to quit drinking She still has significant pain in the epigastrium but without nausea no vomiting She wanted to have her diet advanced and she was given full liquid diet Reported increasing belly pain with full liquid diet today, scaled back to n.p.o., IV fluid restarted, trend lipase in a.m., trend labs in AM. Denies any other significant symptoms Monitor and replete electrolytes, magnesium repleted. Still complains abdominal pain in the epigastrium that goes to the back with n ausea but no vomiting Has been getting intravenous pain medications and full liquid diet Will continue current management and try to advance diet tomorrow if tolerated Clinically stable with increasing pain in the epigastrium without nausea no vomiting Repeat CT of the abdomen pelvis without contrast showed almost resolution of pancreatitis Will advance diet as tolerated and also add sucralfate to treat possible gastritis Likely discharge tomorrow #Hypertension * BP's initially ok, then 200's/100's in ED; Labetolol 10mg given, then increased to 20 mg; suspect HTN pain related with poss med nonadherence at home * Poor historian with home BP meds, per external chart review, patient on losartan 50 mg daily; losartan x 1 given in ED and resumed daily dosing * Hydralazine prn ordered for SBP >180 * Consider up titration of blood pressure medication once out of acute issues, until then utilize as needed blood pressure medication. Blood pressure remains elevated and will start amlodipine #COPD #Asthma * NAD here * Continue home Ellipta * Albuterol as needed Q6H for SOB/wheeze No exacerbation #Depression * Continue home psych meds DVT Ppx: SCDs Code status: Full PCP: Dr. Cavanaugh (2) Hypertension: (3) COPD (chronic obstructive pulmonary disease): (4) Major depression, chronic: (5) GERD (gastroesophageal reflux disease): Admission and Anticipated Discharge Date Admission Date: May 05, 2025 Subjective 05/06/2025 The patient was seen and examined in medical telemetry unit She still has nausea but no more vomiting today Abdominal pain with radiation to the back with persistent No diarrhea and no abdominal distention 05/07/2025 The patient was seen and examined in medical telemetry unit Still has significant pain in the epigastrium without nausea no vomiting She has not had any bowel movement for the last 2 or 3 days She has started with full liquid diet today 05/09/2025 The patient was seen and examined in medical telemetry unit She has been complaining of abdominal pain with nausea and has been tolerating diet yet Will continue full liquid diet today and if tolerated will advance tomorrow 05/10/2025 The patient was seen and examined in medical telemetry unit She has been complaining of epigastric pain that goes to the back and to the yanira e Denies any more nausea no vomiting Does not have any diarrhea and no fever and chills Review of Systems Review of Systems: All systems reviewed and are unremarkable except as noted below Physical Exam Physical Exam: Lying in bed without any acute distress Constitutional: + ill appearing and + thin Eyes: PERRL, conjunctivae normal, anicteric sclerae ENMT: external ear and nose normal, oropharynx normal Neck: trachea midline, no thyromegaly Respiratory: no respiratory distress Auscultation: lungs clear to auscultation bilaterally Cardiovascular: Rate/Rhythm: regular rate, regular rhythm and + tachycardic Heart Sounds: normal S1 and normal S2; no murmur Extremities: no edema Gastrointestinal (Abdomen): Inspection/Auscultation: normal bowel sounds; abdomen not distended Percussion/Palpation: abdomen soft; abdomen nontender (Very tender in the epigastrium with minimal guarding) Neurologic: normal touch/pain/proprioception and moves all extremities; no focal motor deficits Lymphatic: no cervical or axillary lymphadenopathy Results & Data Results & Data Vital Signs (Past 12 Hours) Vital Signs Temp Pulse Pulse Resp BP Pulse Ox O2 Del Method 05/10/25 11:34 36.9 C 88 17 142/88 H 98 Room Air 05/10/25 08:26 36.5 C 77 18 158/90 H 99 Room Air 05/10/25 08:25 Room Air 05/10/25 06:45 76 05/10/25 03:57 36.9 C 86 18 155/92 H 100 Room Air Laboratory Results BMP 05/10/25 06:16 Sodium 137 Potassium 3.6 Chloride 101 Carbon Dioxide 29 BUN 5 L Creatinine 0.75 Glucose 99 Calcium 9.2 Medications Administered Current Inpatient Medications Hydrocodone Bitart/Acetaminophen (Hydrocodone/Acetaminophen 7.5/325mg Tab) 1 tab PO TID PRN PRN Reason: Mod-Sev Pain (Scale 4-10) Stop: 05/22/25 19:45 Last Admin: 05/10/25 08:25 Dose: 1 tab Al Hydrox/Mg Hydrox/Simethicone (Aluminum/Magnesium Susp 30 Ml Udc) 30 ml PO Q 6H PRN PRN Reason: Dyspepsia Stop: 06/04/25 17:28 Albuterol (Albuterol 0.083% Nebu Soln 3 Ml Vial) 2.5 mg NEB Q6H PRN; Protocol PRN Reason: Shortness Of Breath Or Wheezing Stop: 06/04/25 17:28 Amlodipine Besylate (Amlodipine Besylate 5 Mg Tab) 5 mg PO QAM [facility] Stop: 06/08/25 16:29 Last Admin: 05/10/25 08:25 Dose: 5 mg Buspirone HCl (Buspirone 5 Mg Tab) 10 mg PO BID [facility] Stop: 06/07/25 20:59 Last Admin: 05/10/25 08:25 Dose: 10 mg Duloxetine HCl (Duloxetine Hcl 60 Mg Cap) 60 mg PO QAM [facility] Stop: 06/05/25 08:59 Last Admin: 05/10/25 08:25 Dose: 60 mg Fluoxetine HCl (Fluoxetine Hcl 20 Mg Cap) [facility] [place] Stop: 06/05/25 08:59 Last Admin: 05/10/25 08:25 Dose: 60 mg Fluticasone Furoate (Fluticasone Furoate 100mcg 14 Puffs/Inhaler) 1 puffs INH DAILY [facility] Stop: 06/05/25 08:59 Last Admin: 05/10/25 08:25 Dose: 1 puffs Folic Acid (Folic Acid 1 Mg Tab) 1 [facility] [place] Stop: 06/07/25 08:59 Last Admin: 05/10/25 08:25 Dose: 1 mg Gabapentin (Gabapentin 600 Mg Tab) 600 mg PO Q24H [facility] Stop: 05/11/25 09:01 Hydralazine HCl (Hydralazine Hcl 20 Mg/Ml Vial) 5 mg IV ONE PRN PRN Reason: Hypertension Stop: 06/04/25 17:28 Last Admin: 05/07/25 03:29 Dose: 5 mg Hydromorphone HCl (Hydromorphone Inj 0.5 Mg/0.5 Ml Syr) 0.5 mg IV Q6H PRN PRN Reason: Breakthrough Pain Stop: 05/24/25 11:31 Last Admin: 05/10/25 11:35 Dose: 0.5 mg Ketorolac Tromethamine (Ketorolac Tromethamine 15 Mg/Ml Vial) 15 mg IV Q6H PRN PRN Reason: Moderate Pain (Scale 4, 5, 6) Stop: 05/10/25 17:28 Last Admin: 05/09/25 16:25 Dose: 15 mg Lorazepam (Lorazepam 2 Mg/1 Ml Vial) 1 mg IV UD PRN; Protocol PRN Reason: EtOH Withdrawal AWSS Score 6,7 Stop: 06/06/25 20:52 Lorazepam (Lorazepam 2 Mg/1 Ml Vial) 2 mg IV UD PRN; Protocol PRN Reason: EtOH Withdrawal AWSS Score 8,9 Stop: 06/06/25 20:52 Lorazepam (Lorazepam 2 Mg/1 Ml Vial) 3 mg IV ONCE PRN; Protocol PRN Reason: EtOH Withdrawal AWSS Score 10+ Lorazepam (Lorazepam 0.5 Mg Tab) 0.5 mg PO ONE PRN PRN Reason: anxiety Stop: 06/07/25 08:42 Last Admin: 05/10/25 12:23 Dose: 0.5 mg Losartan Potassium (Losartan Potassium 50 Mg Tab) 50 mg PO QAM [facility] Stop: 06/05/25 08:59 Last Admin: 05/10/25 08:25 Dose: 50 mg Magnesium Hydroxide (Magnesium Hydroxide Susp 30 Ml Udc) 30 ml PO Q6H PRN PRN Reason: Constipation Stop: 06/04/25 17:28 Last Admin: 05/10/25 06:10 Dose: 30 ml Miscellaneous (Remove Nicoderm Patch) 1 each N/A DAILY@0859 [facility] Stop: 06/05/25 08:58 Last Admin: 05/10/25 08:25 Dose: 1 each Multivitamins (Multivitamin Tab) 1 tab PO QAM [facility] Stop: 06/05/25 08:59 Last Admin: 05/10/25 08:25 Dose: 1 tab Nicotine (Nicotine 14 Mg/24 Hr Patch) 1 patch TD QAM [facility] Stop: 06/04/25 18:14 Last Admin: 05/10/25 08:25 Dose: 1 patch Ondansetron HCl (Ondansetron Inj 2 Mg/Ml 2 Ml Vial) 4 mg IV Q6H PRN PRN Reason: Nausea Stop: 06/04/25 17:28 Last Admin: 05/06/25 07:52 Dose: 4 mg Pantoprazole Sodium (Pantoprazole 40 Mg Tab) 40 mg PO BID [facility] Stop: 06/06/25 20:59 Last Admin: 05/10/25 08:25 Dose: 40 mg Polyethylene Glycol (Polyethylene (Miralax) 17 Gm Pack) 17 gm PO DAILY [facility] Stop: 06/06/25 09:59 Last Admin: 05/10/25 08:25 Dose: 17 gm Pregabalin (Pregabalin 150 Mg Cap) 150 mg PO AMHS [facility] Stop: 06/04/25 20:59 Last Admin: 05/07/25 20:11 Dose: 150 mg Senna/Docusate Sodium (Docusate Sodium/Senna 50/8.6mg Tab) 1 tab PO QAM [facility] Stop: 06/06/25 08:59 Last Admin: 05/10/25 08:25 Dose: 1 tab Simethicone (Simethicone 80 Mg Chew) 80 mg PO Q6H PRN PRN Reason: Gas or Constipation Stop: 06/07/25 20:16 Last Admin: 05/08/25 21:40 Dose: 80 mg Sucralfate (Sucralfate 1 Gm/10 Ml Udc) 1 gm PO QID [facility] Stop: 06/09/25 12:59 Thiamine HCl (Thiamine Hcl 100 Mg Tab) 100 mg PO QAM [facility] Stop: 06/07/25 08:59 Last Admin: 05/10/25 08:25 Dose: 100 mg Trazodone HCl (Trazodone Hcl 50 Mg Tab) 50 mg PO HS [facility] Stop: 06/04/25 23:34 Last Admin: 05/09/25 22:06 Dose: 50 mg Umeclidinium/Vilanterol (Umeclidinium/Vilanterol 62.5/25mcg 7 Puffs/Inhaler) 1 puffs INH DAILY [facility] Stop: 06/05/25 08:59 Last Admin: 05/10/25 08:25 Dose: 1 puffs
[2025-05-10] MEDS: SUCRALFATE 1 GM/10 ML UDC PO SCH (13:34)
[2025-05-11 06:23] LABS: Hematocrit (blood only) 32.1 % (37.0-47.0); Hemoglobin 11.8 g/dl (12.0-16.0); Immature Granulocytes # (auto) 0.03 K/uL (0.01-0.20); Immature Granulocytes % (auto) 0.4 %; Mean Corpuscular Hemoglobin 30.7 pg (25.0-34.0); Mean Corpuscular Volume 83.6 fL (80.0-100.0); Platelet Count 258 K/uL (130-400); RDW Standard Deviation 44.4 fL (36.4-46.3); Red Blood Count 3.84 M/uL (4.20-5.40); White Blood Count 6.95 K/ul (4.8-10.8)
[2025-05-11 06:39] LABS: Anion Gap 6.0 (3-11); Blood Urea Nitrogen 5.0 mg/dl (6-23); Calcium 9.1 mg/dl (8.6-10.3); Carbon Dioxide 32.0 mmol/L (21-32); Chloride 99.0 mmol/L (98-107); Creatinine Clr Calc Pharmacy 65.0 ml/min; Glucose 106.0 mg/dl (70-99(Fasting)); Potassium 3.8 mmol/L (3.5-5.1); Sodium 137.0 mmol/L (136-145)
[2025-05-11] MEDS: GABAPENTIN 600 MG TAB PO SCH (08:10)
[2025-05-11 08:50] VITALS: TEMP 98.1
--- NOTE | 2025-05-11 10:59 | Hospitalist Progress Note ---
Date of Service May 11, 2025 Assessment & Plan (1) Pancreatitis, acute: Plan: Patient is a 55 year old F with a past medical history of chronic pancreatitis, spinal stenosis with chronic back pain and opioid dependence, asthma, COPD, Metz's esoph, depression, fibromyalgia, microcytic anemia presenting with severe abdominal pain. Symptoms began 2 days ago following a family event when she ate fatty foods and consumed alcohol. Pain is 10/10 epigastric with radiation to the back, reports the pain "takes breath away". Minimal food and fluid intake in the past 2 years, but is still urinating okay. Has nausea and vomiting, denies diarrhea. Reports having a fever yesterday that broke without treatment. #Acute on chronic Pancreatitis #GERD Likely secondary to use of alcohol * CT abdomen/pelvis w/ contrast showing recurrent acute pancreatitis. Mild to moderate peripancreatic fluid; Stable to slight decrease in biliary ductal dilatation; No convincing evidence for cholecystitis. * Severe pain w/o relief from Morphine 4mg/ Dilaudid 1 mg; hx Opioid dependence-->will start Toradol for mod pain, Hydromorphone 1 mg for severe pain * NPO; 1L NSS and will be continued. Symptomatic medication for pain and nausea * Continue home PPI for h/o Emtz's * Clinically looking better and does not have any more vomiting and pain seems to be decreasing * strongly advised to quit drinking She still has significant pain in the epigastrium but without nausea no vomiting She wanted to have her diet advanced and she was given full liquid diet Reported increasing belly pain with full liquid diet today, scaled back to n.p.o., IV fluid restarted, trend lipase in a.m., trend labs in AM. Denies any other significant symptoms Monitor and replete electrolytes, magnesium repleted. Still complains abdominal pain in the epigastrium that goes to the back with n ausea but no vomiting Has been getting intravenous pain medications and full liquid diet Will continue current management and try to advance diet tomorrow if tolerated Clinically stable with increasing pain in the epigastrium without nausea no vomiting Repeat CT of the abdomen pelvis without contrast showed almost resolution of pancreatitis Will advance diet as tolerated and also add sucralfate to treat possible gastritis Tolerated diet and will be advanced to regular Remains free from any symptoms this morning and will discharge home this afternoon #Hypertension * BP's initially ok, then 200's/100's in ED; Labetolol 10mg given, then increased to 20 mg; suspect HTN pain related with poss med nonadherence at home * Poor historian with home BP meds, per external chart review, patient on losartan 50 mg daily; losartan x 1 given in ED and resumed daily dosing * Hydralazine prn ordered for SBP >180 * Consider up titration of blood pressure medication once out of acute issues, until then utilize as needed blood pressure medication. Blood pressure remains elevated and will start amlodipine Blood pressure remains at the upper side at 159/95 #COPD #Asthma * NAD here * Continue home Ellipta * Albuterol as needed Q6H for SOB/wheeze No exacerbation #Depression * Continue home psych meds DVT Ppx: SCDs Code status: Full PCP: Dr. Cavanaugh (2) Hypertension: (3) COPD (chronic obstructive pulmonary disease): (4) Major depression, chronic: (5) GERD (gastroesophageal reflux disease): Admission and Anticipated Discharge Date Admission Date: May 05, 2025 Subjective 05/06/2025 The patient was seen and examined in medical telemetry unit She still has nausea but no more vomiting today Abdominal pain with radiation to the back with persistent No diarrhea and no abdominal distention 05/07/2025 The patient was seen and examined in medical telemetry unit Still has significant pain in the epigastrium without nausea no vomiting She has not had any bowel movement for the last 2 or 3 days She has started with full liquid diet today 05/09/2025 The patient was seen and examined in medical telemetry unit She has been complaining of abdominal pain with nausea and has been tolerating diet yet Will continue full liquid diet today and if tolerated will advance tomorrow 05/10/2025 The patient was seen and examined in medical telemetry unit She has been complaining of epigastric pain that goes to the back and to the side Denies any more nausea no vomiting Does not have any diarrhea and no fever and chills 05/11/2025 Patient was seen and examined in medical telemetry unit She has been feeling much better with decreasing abdominal pain and nausea Bowels moved She has been ambulating in the hallway without any difficulties She will be discharged home this afternoon Review of Systems Review of Systems: All systems reviewed and are unremarkable except as noted below Physical Exam Physical Exam: Lying in bed without any acute distress Constitutional: + ill appearing and + thin Eyes: PERRL, conjunctivae normal, anicteric sclerae ENMT: external ear and nose normal, oropharynx normal Neck: trachea midline, no thyromegaly Respiratory: no respiratory distress Auscultation: lungs clear to auscultation bilaterally Cardiovascular: Rate/Rhythm: regular rate, regular rhythm and + tachycardic Heart Sounds: normal S1 and normal S2; no murmur Extremities: no edema Gastrointestinal (Abdomen): Inspection/Auscultation: abdomen normal to inspection and normal bowel sounds; abdomen not distended Perc ussion/Palpation: abdomen soft; abdomen nontender (Very tender in the epigastrium with minimal guarding) Neurologic: normal touch/pain/proprioception and moves all extremities; no focal motor deficits Lymphatic: no cervical or axillary lymphadenopathy Results & Data Results & Data Vital Signs (Past 12 Hours) Vital Signs Temp Pulse Pulse Resp BP Pulse Ox O2 Del Method 05/11/25 07:49 36.7 C 81 18 159/95 H 18 L Room Air 05/11/25 06:45 71 05/11/25 03:53 36.4 C L 80 18 138/89 98 Room Air 05/10/25 23:16 36.5 C 75 16 150/92 H 98 Room Air Laboratory Results Short CBC 05/11/25 Range/Units 05:48 WBC 6.95 (4.8-10.8) K/ul Hgb 11.8 L (12.0-16.0) g/dl Hct 32.1 L (37.0-47.0) % Plt Count 258 (130-400) K/uL BMP 05/11/25 05:48 Sodium 137 Potassium 3.8 Chloride 99 Carbon Dioxide 32 BUN 5 L Creatinine 0.80 Glucose 106 H Calcium 9.1 Medications Administered Current Inpatient Medications Hydrocodone Bitart/Acetaminophen (Hydrocodone/Acetaminophen 7.5/325mg Tab) 1 tab PO TID PRN PRN Reason: Mod-Sev Pain (Scale 4-10) Stop: 05/22/25 19:45 Last Admin: 05/11/25 08:10 Dose: 1 tab Al Hydrox/Mg Hydrox/Simethicone (Aluminum/Magnesium Susp 30 Ml Udc) 30 ml PO Q6H PRN PRN Reason: Dyspepsia Stop: 06/04/25 17:28 Albuterol (Albuterol 0.083% Nebu Soln 3 Ml Vial) 2.5 mg NEB Q6H PRN; Protocol PRN Reason: Shortness Of Breath Or Wheezing Stop: 06/04/25 17:28 Amlodipine Besylate (Amlodipine Besylate 5 Mg Tab) [facility] [place] Stop: 06/08/25 16:29 Last Admin: 05/11/25 08:10 Dose: 5 mg Buspirone HCl (Buspirone 5 Mg Tab) 10 mg PO BID [facility] Stop: 06/07/25 20:59 Last Admin: 05/11/25 08:10 Dose: 10 mg Duloxetine HCl (Duloxetine Hcl 60 Mg Cap) 60 mg PO [facility] Stop: 06/05/25 08:59 Last Admin: 05/11/25 08:10 Dose: 60 mg Fluoxetine HCl (Fluoxetine Hcl 20 Mg Cap) 60 mg PO [facility] Stop: 06/05/25 08:59 Last Admin: 05/11/25 08:10 Dose: 60 mg Fluticasone Furoate (Fluticasone Furoate 100mcg 14 Puffs/Inhaler) 1 puffs INH D AILY [facility] Stop: 06/05/25 08:59 Last Admin: 05/11/25 08:10 Dose: 1 puffs Folic Acid (Folic Acid 1 Mg Tab) 1 mg PO [facility] Stop: 06/07/25 08:59 Last Admin: 05/11/25 08:10 Dose: 1 mg Hydralazine HCl (Hydralazine Hcl 20 Mg/Ml Vial) 5 mg IV ONE PRN PRN Reason: Hypertension Stop: 06/04/25 17:28 Last Admin: 05/07/25 03:29 Dose: 5 mg Hydromorphone HCl (Hydromorphone Inj 0.5 Mg/0.5 Ml Syr) 0.5 mg IV Q6H PRN PRN Reason: Breakthrough Pain Stop: 05/24/25 11:31 Last Admin: 05/10/25 11:35 Dose: 0.5 mg Lorazepam (Lorazepam 2 Mg/1 Ml Vial) 1 mg IV UD PRN; Protocol PRN Reason: EtOH Withdrawal AWSS Score 6,7 Stop: 06/06/25 20:52 Lorazepam (Lorazepam 2 Mg/1 Ml Vial) 2 mg IV UD PRN; Protocol PRN Reason: EtOH Withdrawal AWSS Score 8,9 Stop: 06/06/25 20:52 Lorazepam (Lorazepam 2 Mg/1 Ml Vial) 3 mg IV ONCE PRN; Protocol PRN Reason: EtOH Withdrawal AWSS Score 10+ Lorazepam (Lorazepam 0.5 Mg Tab) 0.5 mg PO ONE PRN PRN Reason: anxiety Stop: 06/07/25 08:42 Last Admin: 05/10/25 12:23 Dose: 0.5 mg Losartan Potassium (Losartan Potassium 50 Mg Tab) 50 mg PO QAM [facility] Stop: 06/05/25 08:59 Last Admin: 05/11/25 08:10 Dose: 50 mg Magnesium Hydroxide (Magnesium Hydroxide Susp 30 Ml Udc) 30 ml PO Q6H PRN PRN Reason: Constipation Stop: 06/04/25 17:28 Last Admin: 05/10/25 17:03 Dose: 30 ml Miscellaneous (Remove Nicoderm Patch) 1 each N/A DAILY@0859 [facility] Stop: 06/05/25 08:58 Last Admin: 05/11/25 08:10 Dose: 1 each Multivitamins (Multivitamin Tab) 1 tab PO QAM [facility] Stop: 06/05/25 08:59 Last Admin: 05/11/25 08:10 Dose: 1 tab Nicotine (Nicotine 14 Mg/24 Hr Patch) 1 patch TD QAM [facility] Stop: 06/04/25 18:14 Last Admin: 05/11/25 08:10 Dose: 1 patch Ondansetron HCl (Ondansetron Inj 2 Mg/Ml 2 Ml Vial) 4 mg IV Q6H PRN PRN Reason: Nausea Stop: 06/04/25 17:28 Last Admin: 05/06/25 07:52 Dose: 4 mg Pantoprazole Sodium (Pantoprazole 40 Mg Tab) 40 mg PO BID [facility] Stop: 06/06/25 20:59 Last Admin: 05/11/25 08:10 Dose: 40 mg Polyethylene Glycol (Polyethylene (Miralax) 17 Gm Pack) 17 gm PO DAILY [facility] Stop: 06/06/25 09:59 Last Admin: 05/11/25 08:10 Dose: Not Given Pregabalin (Pregabalin 150 Mg Cap) 150 mg PO AMHS [facility] Stop: 06/04/25 20:59 Last Admin: 05/07/25 20:11 Dose: 150 mg Senna/Docusate Sodium (Docusate Sodium/Senna 50/8.6mg Tab) 1 tab PO QAM [facility] Stop: 06/06/25 08:59 Last Admin: 05/11/25 08:10 Dose: 1 tab Simethicone (Simethicone 80 Mg Chew) 80 mg PO Q6H PRN PRN Reason: Gas or Constipation Stop: 06/07/25 20:16 Last Admin: 05/08/25 21:40 Dose: 80 mg Sucralfate (Sucralfate 1 Gm/10 Ml Udc) 1 gm PO QID [facility] Stop: 06/09/25 12:59 Last Admin: 05/11/25 08:10 Dose: 1 gm Thiamine HCl (Thiamine Hcl 100 Mg Tab) 100 mg PO QAM [facility] Stop: 06/07/25 08:59 Last Admin: 05/11/25 08:10 Dose: 100 mg Trazodone HCl (Trazodone Hcl 50 Mg Tab) 50 mg PO HS [facility] Stop: 06/04/25 23:34 Last Admin: 05/10/25 20:42 Dose: 50 mg Umeclidinium/Vilanterol (Umeclidinium/Vilanterol 62.5/25mcg 7 Puffs/Inhaler) 1 puffs INH DAILY [facility] Stop: 06/05/25 08:59 Last Admin: 05/11/25 08:10 Dose: 1 puffs
[2025-05-11 11:25] VITALS: BP 135/87; PULSE 89; RESP 19; O2SAT 98
--- NOTE | 2025-05-11 17:45 | Discharge Summary ---
Date of Service May 11, 2025 Admission HPI Per Admitting Provider Patient is a 55 year old F with a past medical history of chronic pancreatitis, spinal stenosis with chronic back pain and opioid dependence, asthma, COPD, Metz's esoph, depression, fibromyalgia, microcytic anemia presenting with severe abdominal pain. Symptoms began 2 days ago following a family event when she ate fatty foods and consumed alcohol. Pain is 10/10 epigastric with radiation to the back, reports the pain "takes breath away". Minimal food and fluid intake in the past 2 years, but is still urinating okay. Has nausea and vomiting, denies diarrhea. Reports having a fever yesterday that broke without treatment. Denies weight loss, weakness, headache, cognitive changes, vision/hearing changes, shortness of breath, chest pain, swelling, urinary symptoms, numbness, tingling, ambulation difficulty, recent illnesses. In the emergency department, patient was initially hemodynamically stable and afebrile. WBC elevated 15 with no evidence of sepsis. Lipase 796. CT abdomen/pelvis with contrast showed recurrent acute pancreatitis without evidence of necrosis. No well-defined peripancreatic fluid collections; Stable to slight decrease in biliary ductal dilatation. Interval decrease in pancreatic ductal dilatation; No change in mild gallbladder distention without pericholecystic infiltration; No convincing evidence for cholecystitis. 1 L NSS given. Morphine 4mg x1 and Hydromorphone 1 mg x 1 given in the ED with only minimal decrease in pain. Additional Hydromorphone given with no responses ~1 hour post administration. Toradol was then given x 1. Patient has a history of opioid dependence and takes Percocet regularly, nearly daily at home for chronic LBB. Also hypertensive in the ED, possibly pain related, although poor historian with medications regularly taken at home. BP's 200's/120's. Labetalol 10 mg x 1 given with a slight response, then rebounded to 195/134. Additional Labetalol was then given. EKG showing sinus rhythm with vent rate 87 bpm, QTc 442. History obtained primarily from the patient and via hospitalization record. The patient's family was at the bedside and assisted with history of present illness. External chart review obtained from [facility]. Admission Exam Per Admitting Provider Physical Exam: VITALS: Reviewed. WEIGHT/BMI reviewed. GEN: Healthy appearing, well-developed, NAD. PSYCH: Good Judgment. AOx4. Normal memory, mood, and affect. HEENT -Head: NC/AT; -Eyes: PERRL, EOMI. No discharge or redn ess; -Ears: External ears are normal. -Nose: Normal nares. -Mouth and throat: Dry mouth. Normal gum s, mucosa, palate,. Good dentition. NECK: Supple, with no masses. CV: RRR, no m/r/g. No peripheral swelling. Perfusion ok LUNGS: CTAB, no w/r/c. ABD: Soft, NT/ND, NBS, no masses or organomegaly. : N/A SKIN: Warm, well perfused. No skin rashes or abnormal lesions. MSK: No deformities, Normal gait. EXT: No clubbing, cyanosis, or edema. NEURO: Ambulating with no limitations. Normal muscle strength and tone. No focal deficits. Principal Diagnosis Acute pancreatitis Discharge Exam Lying in bed without any acute distress Constitutional + ill appearing and + thin Eyes PERRL, conjunctivae normal, anicteric sclerae ENMT external ear and nose normal, oropharynx normal Neck trachea midline, no thyromegaly Respiratory no respiratory distress Auscultation: lungs clear to auscultation bilaterally Cardiovascular Rate/Rhythm: regular rate, regular rhythm and + tachycardic Heart Sounds: normal S1 and normal S2; no murmur Extremities: no edema Gastrointestinal (Abdomen) Inspection/Auscultation: abdomen normal to inspection and normal bowel sounds; abdomen not distended Percussion/Palpation: abdomen soft; abdomen nontender (Very tender in the epigastrium with minimal guarding) Neurologic normal touch/pain/proprioception and moves all extremities; no focal motor deficits Lymphatic no cervical or axillary lymphadenopathy Discharge Data Allergies Allergy/AdvReac Type Severity Reaction Status Date / Time latex Allergy Intermediate ITCHY Verified 05/05/25 15:20 nickel Allergy Intermediate Rash Verified 05/05/25 15:20 tea tree Allergy Unknown Hives Verified 05/05/25 15:20 amoxicillin AdvReac Intermediate thrush Verified 05/05/25 15:20 lisinopril AdvReac Cough Verified 05/05/25 15:20 Consultations 05/05/25 14:54 ED Decision to Admit Stat Ordered Studies 05/05/25 11:34 CT abd pelvis IV con only Stat 05/10/25 09:46 CT Abd and Pelvis [CT abd pelvis wo con] Urgent Hospital Course (1) Pancreatitis, acute: Patient is a 55 year old F with a past medical history of chronic pancreatitis, spinal stenosis with chronic back pain and opioid dependence, asthma, COPD, Metz's esoph, depression, fibromyalgia, microcytic anemia presenting with severe abdominal pain. Symptoms began 2 days ago following a family event when she ate fatty foods and consumed alcohol. Pain is 10/10 epigastric with radiation to the back, reports the pain "takes breath away". Minimal food and fluid intake in the past 2 years, but is still urinating okay. Has nausea and vomiting, denies diarrhea. Reports having a fever yesterday that broke without treatment. #Acute on chronic Pancreatitis #GERD Likely secondary to use of alcohol * CT abdomen/pelvis w/ contrast showing recurrent acute pancreatitis. Mild to moderate peripancreatic fluid; Stable to slight decrease in biliary ductal dilatation; No convincing evidence for cholecystitis. * Severe pain w/o relief from Morphine 4mg/ Dilaudid 1 mg; hx Opioid dependence-->will start Toradol for mod pain, Hydromorphone 1 mg for severe pain * NPO; 1L NSS and will be continued. Symptomatic medication for pain and nausea * Continue home PPI for h/o Metz's * Clinically looking better and does not have any more vomiting and pain seems to be decreasing * strongly advised to quit drinking She still has significant pain in the epigastrium but without nausea no vomiting She wanted to have her diet advanced and she was given full liquid diet Reported increasing belly pain with full liquid diet today, scaled back to n.p.o., IV fluid restarted, trend lipase in a.m., trend labs in AM. Denies any other significant symptoms Monitor and replete electrolytes, magnesium repleted. Still complains abdominal pain in the epigastrium that goes to the back with nausea but no vomiting Has been getting intravenous pain medications and full liquid diet Will continue current management and try to advance diet tomorrow if tolerated Clinically stable with increasing pain in the epigastrium without nausea no vomiting Repeat CT of the abdomen pelvis without contrast showed almost resolution of pancreatitis Will advance diet as tolerated and also add sucralfate to treat possible gastritis Tolerated diet and will be advanced to regular Remains free from any symptoms this morning and will discharge home this afternoon #Hypertension * BP's initially ok, then 200's/100's in ED; Labetolol 10mg given, then increased to 20 mg; suspect HTN pain related with poss med nonadherence at home * Poor historian with home BP meds, per external chart review, patient on losartan 50 mg daily; losartan x 1 given in ED and resumed daily dosing * Hydralazine prn ordered for SBP >180 * Consider up titration of blood pressure medication once out of acute issues, until then utilize as needed blood pressure medication. Blood pressure remains elevated and will start amlodipine Blood pressure remains at the upper side at 159/95 #COPD #Asthma * NAD here * Continue home Ellipta * Albuterol as needed Q6H for SOB/wheeze No exacerbation #Depression * Continue home psych meds DVT Ppx: SCDs Code status: Full PCP: Dr. Cavanaugh (2) Hypertension: (3) COPD (chronic obstructive pulmonary disease): (4) Major depression, chronic: (5) GERD (gastroesophageal reflux disease): Total Time Total Time Spent Total Time Spent (In Minutes): 35 Minutes Discharge Plan Discharge Items Patient Disposition: Home - Self-Care Reason For Visit: PANCREATITIS Discharge Diagnosis: Acute pancreatitis Condition on Discharge: Good Activity: Resume your previous activity Non-emergency contact: Primary Care Provider Call non-emergency contact if: you have any medication questions and your symptoms worsen Follow-up/Referrals: Myesha Cavanaugh MD [Primary Care Provider] - 05/14/25 10:40 am (Date & Time 05/14/2025 10:40 AM Provider: Myesha Cavanaugh MD [facility], [facility]) Diet: Regular Addtl Attending Provider Instructions: Please take precautions to avoid falls Take your medications as advised Strongly advised to quit drinking of alcohol Please keep appointments with your healthcare providers Pending Studies at Discharge: No Stand-Alone Forms: My [facility] [place], Smoking Cessation Medications and DC Order Prescriptions: New sucralfate 100 mg/mL Suspension 1 g PO QID Qty: 600 0RF thiamine HCl (vitamin B1) 100 mg Tablet 100 mg PO QAM Qty: 30 0RF folic acid 1 mg Tablet 1 mg PO QAM Qty: 3 0RF nicotine 7 mg/24 hr Patch 24 Hour 1 patch transdermal QAM Qty: 30 0RF Continued trazodone 50 mg tablet 50 mg PO HS loratadine 10 mg tablet 10 mg PO QDL albuterol sulfate 90 mcg/actuation HFA aerosol inhaler 2 puff INHALATION Q4 PRN (Reason: Breath Or Wheezing) pregabalin 150 mg capsule 150 mg PO [facility] Dulera 200-5 mcg/actuation HFA aerosol inhaler 2 puff INHALATION BID omeprazole 20 mg capsule,delayed release(DR/EC) 20 mg PO DAILY duloxetine 60 mg capsule,delayed release(DR/EC) 60 mg PO QAM hydrocodone-acetaminophen 7.5-325 mg tablet 1 tab PO Q8 PRN (Reason: pain,severe) Trelegy Ellipta 100-62.5-25 mcg blister with device 1 ea INHALATION QAM fluoxetine 40 mg capsule 40 mg PO QAM Rx Instructions: TOTAL DOSE 60 MG--TAKES WITH 20 MG CAP. hydroxyzine HCl 50 mg tablet 50 mg PO Q6H PRN (Reason: ITCHING/ANXIETY) montelukast 10 mg tablet 10 mg PO HS fluoxetine 20 mg capsule 20 mg PO QAM Rx Instructions: TOTAL DOSE 60 MG--TAKES WITH 40 MG CAP. losartan 50 mg tablet 50 mg PO QAM methocarbamol 500 mg Tablet 500 mg PO QID pantoprazole 40 mg Tablet,Delayed Release (Dr/Ec) 40 mg PO DAILY multivitamin Tablet 1 tab PO DAILY magnesium 250 mg Tablet 250 mg PO DAILY Discharge Orders: Discharge Order (Routine); Ordered 05/11/25 Ordered By: Denver High Admission Data Admit Date/Time: 05/05/25 15:39 Attending Provider: Denver High Admit Provider: Eduard More Primary Care Provider: Myesha Cavanaugh Other Providers: Eduard More; Margaux Cope Other Interventions: Discharge Summary Assessment (RN) Last Done: 05/11/25 12:00
== END 2025-05-11 13:51 | disposition home or self-care (01) | DRG 439 ==
LOC: ED 11:02 → SUATTDRO 15:39 → 2N 15:39